=== PATIENT | female | born 1940 | race Caucasian/White ===

== ENCOUNTER 2017-11-10 11:53 | Emergency (ER) | payer MEDICARE, SELFPAY ==
[2017-11-10 11:54] VITALS: BP 156/86; PULSE 78; RESP 15; TEMP 36.5; O2SAT 99; BMI 19.9
--- NOTE | 2017-11-10 12:18 | RAD_ITS ---
STUDY: X-RAY CHEST REASON FOR EXAM: Female, 77 years old. Chest and back pain TECHNIQUE: PA and lateral views of the chest. COMPARISON: None. FINDINGS: Cardiac monitoring leads overlie the chest. The lungs are clear and expanded. There is no demonstrated pleural abnormality. Normal size heart. Normal mediastinum and bob. Normal visualized pulmonary arteries. There is atherosclerotic calcification of the aortic arch with tortuosity. There are diffuse degenerative changes of the visualized thoracic spine. There is a compression deformity at T12. There is mild levocurvature within the thoracolumbar spine. There is no demonstrated abnormality of the visualized soft tissue structures of the upper abdomen. RAD/Chest PA and Lateral IMPRESSION: No acute process in the chest. Compression deformity at T12, age indeterminate. Atherosclerotic vascular changes. Electronically Signed: Mathew Lizama DO at 12:59 EDT Tel , Service support ,
--- NOTE | 2017-11-10 12:18 | EKG12_ITS ---
Test Reason : CP Blood Pressure : / mmHG Vent. Rate : 073 BPM Atrial Rate : 073 BPM P-R Int : 174 ms QRS Dur : 084 ms QT Int : 390 ms P-R-T Axes : 058 046 068 degrees QTc Int : 429 ms Normal sinus rhythm Left ventricular hypertrophy with repolarization abnormality Abnormal ECG Confirmed by FROYLAN MCKEON, KADI ([id number]), deputy editor in chief STERLING PALMER ([id number] on 11/14/2017 1:57:57 PM Referred By: Confirmed By:KADI GALEANO MD
--- NOTE | 2017-11-10 12:22 | NURSING ---
NO OLD EKG
[2017-11-10 12:37] LABS: Absolute Lymphocyte Count 1.48 X10^3/ul (0.83-4.51); Absolute Neutrophil Count 3.4 X10^3/uL (2.0-7.7); Basophil# 0.04 X10^3/uL; Basophil% 0.7 % (0-1); Eosinophil# 0.63 X10^3/uL; Eosinophils% 10.2 % (0-5); Hematocrit 35.7 % (37-47); Hemoglobin 11.6 g/dl (12.0-15.0); Lymphocyte # 1.48 X10^3/ul (4.0); Lymphocyte % 24.1 % (19-41); Mean Corp Hgb Conc 32.5 g/gl (32-36); Mean Corpuscular Volume 98.6 fL (81-99); Mean Platelet Vol. 8.3 fl (6.2-12.0); Monocyte# 0.63 X10^3/uL; Monocyte% 10.2 % (0-10); Neutrophil # 3.37 X10^3/uL (2.7-7.7); Neutrophil % 54.8 % (47-70); Platelet Count 304 K/mm3 (150-450); RBC Distribution Width CV 13.8 % (11.6-14.6); Red Blood Count 3.62 M/mm3 (4.2-5.4); White Blood Count 6.2 K/mm3 (4.4-11.0)
[2017-11-10 12:38] LABS: POSITIVE COUNT NO; POSITIVE DIFFERENTIAL NO; POSITIVE MORPHOLOGY NO
[2017-11-10 12:45] LABS: D-Dimer Quantitative (DVT/PE) 0.74 FEU/ug/m (0.27-0.49)
[2017-11-10 12:46] LABS: Anion Gap 4 (5-15); BUN 20 mg/dL (7-18); Calcium,Total 8.5 mg/dL (8.5-10.1); Chloride 104 mmol/L (98-107); Creatinine, Serum 0.83 mg/dL (0.55-1.02); EST Glomerular Filtration Rate 71 mL/min (>60); Est Glom Filt Rate - Afr Amer 85 mL/min (>60); Estimated Creatinine Clearance 50.18 ml/min; Glucose 92 mg/dL (74-106); Potassium 3.7 mmol/L (3.5-5.1); Sodium Level 137 mmol/L (136-145)
[2017-11-10 12:54] VITALS: BP 135/86; PULSE 72; RESP 19; O2SAT 99
--- NOTE | 2017-11-10 12:59 | ED.VISSUMM ---
- ER Visit Summary Date of Service: 11/10/17 Chief Complaint: I am self diagnosing myself with pleurisy. History of Present Illness: The patient is a 77 F who presents with pleuritic left scapular/left-sided chest pain that started 2 days ago while in a car in [place]. She drove to [place] and back. The pain is been constant since onset, October. There is no discomfort with movement of the extremity or twisting. He does complain of increased pain with breathing. 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 She denies history of PE. Change in position does not alter the discomfort. She denies fever, chills night sweats. She denies any ocular, visual or auditory symptoms. She denies dyspnea on exertion, orthopnea or PND. She has no GI, or musculoskeletal symptoms. She denies bruising easily or problems with bleeding. Please read written note for complete detail Physical Examination: Vital signs micromelic blood pressure 156/86. Temperature is 97.7. Vital signs otherwise unremarkable. She appears no distress. Head is atraumatic normocephalic. Pupils are equal round reactive. Extraocular muscles are intact. TMs are pearly white with landmarks noted. Nares patent with no drainage. Posterior pharynx without erythema or exudate. Uvula is midline. There is no dysphonia or dysphasia. Trachea is midline. There is no stridor with auscultation of the neck. Heart is regular without murmur, gallop or rub. S1 and S2 are normal. Lungs are clear to auscultation with good movement of air bilaterally. There is reproducible pain left side near the fourth fifth intercostal space. Soft nontender with no palpable, pulsatile or bruit noted. There is no asymmetry, swelling, discoloration, leg vein distention, palpable cords or tenderness along the distribution of the deep venous system. Test Results: EKG reveals a sinus rhythm rate of 73 with evidence of LVH. D-dimer is elevated at 0.74. D-dimer is elevated even if corrected for age. Two-view chest x-ray reveals no acute process. Mediastinum appears normal. Cardiac silhouette is normal. There is no evidence of effusion. CTA for pulmonary embolus was negative. There is no evidence of dissection. There is no evidence of any pulmonary disease either. Emergency Department Course and Treatment: She was informed concerned this may represent a pulmonary embolus versus atypical presentation for cardiac. Workup included EKG, chest x-ray and appropriate blood work including d-dimer. Since the d-dimer is elevated in spite of correction for age will obtain CTA of the chest to evaluate for pulmonary embolus. Treatment Plan: Since patient has history of peptic ulcer disease/GERD and is elderly will treat with prednisone for pleuritic pain. Disposition: Discharged home Impression: Pleuritic chest pain with dyspnea This note was generated with [employer] dictation software. It may contain incorrect words, spelling, and punctuation that were not noted in review of the chart prior to signing ED Disposition - Plan for ED Patient: Disposition: Home or Assisted Living Chief Complaint: Chest Pain Instructions: ED Chest Pain Pleurisy Prescriptions: Prednisone [Deltasone] 40 mg PO DAILY #10 tab Referrals: García Alvarado MD [Primary Care Provider] - 3-5 Days if not improving
--- NOTE | 2017-11-10 13:03 | ED.DCSUM_ITS ---
- ER Visit Summary Date of Service: 11/10/17 Chief Complaint: I am self diagnosing myself with pleurisy. History of Present Illness: The patient is a 77 F who presents with pleuritic left scapular/left-sided chest pain that started 2 days ago while in a car in [place]. She drove to [place] and back. The pain is been constant since onset , October. There is no discomfort with movement of the extremity or twisting. He does complain of increased pain with breathing. 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 She denies history of PE. Change in position does not alter the discomfort. She denies fever, chills night sweats. She denies any ocular, visual or auditory symptoms. She denies dyspnea on exertion, orthopnea or PND. She has no GI, or musculoskeletal symptoms. She denies bruising easily or problems with bleeding. Please read written note for complete detail Physical Examination: Vital signs micromelic blood pressure 156/86. Temperature is 97.7. Vital signs otherwise unremarkable. She appears no distress. Head is atraumatic normocephalic. Pupils are equal round reactive. Extraocular muscles are intact. TMs are pearly white with landmarks noted. Nares patent with no drainage. Posterior pharynx without erythema or exudate. Uvula is midline. There is no dysphonia or dysphasia. Trachea is midline. There is no stridor with auscultation of the neck. Heart is regular without murmur, gallop or rub. S1 and S2 are normal. Lungs are clear to auscultation with good movement of air bilaterally. There is reproducible pain left side near the fourth fifth intercostal space. Soft nontender with no palpable, pulsatile or bruit noted. There is no asymmetry, swelling, discoloration, leg vein distention, palpable cords or tenderness along the distribution of the deep venous system. Test Results: EKG reveals a sinus rhythm rate of 73 with evidence of LVH. D- dimer is elevated at 0.74. D-dimer is elevated even if corrected for age. Two- view chest x-ray reveals no acute process. Mediastinum appears normal. Cardiac silhouette is normal. There is no evidence of effusion. CTA for pulmonary embolus was negative. There is no evidence of dissection. There is no evidence of any pulmonary disease either. Emergency Department Course and Treatment: She was informed concerned this may represent a pulmonary embolus versus atypical presentation for cardiac. Workup included EKG, chest x-ray and appropriate blood work including d-dimer. Since the d-dimer is elevated in spite of correction for age will obtain CTA of the chest to evaluate for pulmonary embolus. Treatment Plan: Since patient has history of peptic ulcer disease/GERD and is elderly will treat with prednisone for pleuritic pain. Disposition: Discharged home Impression: Pleuritic chest pain with dyspnea This note was generated with [employer] dictation software. It may contain incorrect words, spelling, and punctuation that were not noted in review of the chart prior to signing ED Disposition - Plan for ED Patient: Disposition: Home or Assisted Living Chief Complaint: Chest Pain Instructions: ED Chest Pain Pleurisy Prescriptions: Prednisone [Deltasone] 40 mg PO DAILY #10 tab Referrals: García Alvarado MD [Primary Care Provider] - 3-5 Days if not improving
--- NOTE | 2017-11-10 13:41 | CT_ITS ---
STUDY: CTA CHEST REASON FOR EXAM: Female, 77 years old. Pleuritic chest pain, history of DVT RADIATION DOSAGE (If Supplied By Facility): CTDIvol = ( 4.84 ) mGy, DLP = ( 196.32 ) mGycm TECHNIQUE: The examination was performed with the intravenous administration of 100ml of Isovue 300 contrast material. Post-processing of the angiographic images was performed, with multiplanar reformation and 3D reconstruction. Individualized dose optimization techniques were used for this CT. COMPARISON: None. FINDINGS: Normal enhancement of the main pulmonary artery and right and left pulmonary arteries. Normal enhancement of the bilateral peripheral pulmonary arteries. There is no demonstrated pulmonary embolism. There is atherosclerotic calcification of the aortic arch with tortuosity. The ascending aorta measures 3.8 x 3.7 cm. There is no demonstrated aortic dissection. Coronary artery calcifications are present. Normal mediastinum. Normal hilar regions. Normal visualized trachea and bronchi. The lungs are well expanded. There is linear atelectasis in the lingula. Minimal basilar atelectasis is seen. Normal pleura. Normal chest wall structures. The bones are demineralized. There is a compression fracture at T12. This appears remote. There is a hyperdense focus within the left kidney measuring approximately 1.2 cm, which may represent a hyperdense cyst. CT/CTA Chest W/WO Contrast IMPRESSION: No pulmonary embolism or aortic dissection. Minimal atelectasis. Atherosclerotic vascular disease. Hyperdense lesion within the left kidney. This may represent a hyperdense cyst. As can be further characterized by ultrasound, as clinically indicated. Electronically Signed: Mathew Lizama DO at 15:05 EDT Tel , Service support ,
[2017-11-10 14:03] VITALS: BP 135/76; PULSE 77; RESP 24; O2SAT 96
[2017-11-10] MEDS: predniSONE 20 MG Tablet 40 MG PO (15:48)
[2017-11-10 15:49] VITALS: BP 151/70; PULSE 73; RESP 18; O2SAT 99
== END 2017-11-10 15:49 | disposition home or self-care (01) ==
PROVIDERS: Emergency Provider Emergency Medicine; Family Provider Family Medicine; PCP Family Medicine
DX: R07.89 Other chest pain (principal); R06.00 Dyspnea, unspecified; K21.9 Gastro-esophageal reflux disease without esophagitis; Z79.899 Other long term (current) drug therapy
CPT/HCPCS: 71046; 71275; 80048; 84484; 85025; 85379; 93005; 99284; Q9967; A4216

== ENCOUNTER → 2018-03-21 09:55 | Outpatient (CLI) | payer MEDICARE, SELFPAY ==
[2018-03-21 11:02] LABS: AST(SGOT) 15 U/L (15-37); Alanine Aminotransfer ALT/SGPT 13 U/L (13-56); Albumin, Serum 3.8 g/dL (3.2-5.0); Alkaline Phosphatase 65 U/L (45-117); Bilirubin, Direct 0.08 mg/dL (0.00-0.30); Cholesterol 218 mg/dL (200); Globulin 3.1 g/dL (2.2-4.2); High Density Lipoprotein 88 mg/dL; Protein, Total 6.9 g/dL (6.4-8.2); Triglycerides 114 mg/dL; Very Low Density Lipoprotein 23 mg/dL (5-40)
== END ==
PROVIDERS: Family Provider Family Medicine; PCP Family Medicine; Visit Provider Internal Medicine Cardiovascular Disease
DX: E78.5 Hyperlipidemia, unspecified (principal)
CPT/HCPCS: 36415; 80061; 80076

== ENCOUNTER → 2018-03-28 12:44 | Outpatient (CLI) | payer MEDICARE, SELFPAY ==
--- NOTE | 2018-03-28 12:46 | ECHOD_ITS ---
Reason For Study: dyspnea/SOB Procedure This was a 2D Doppler, Color Flow transthoracic echocardiogram. Exam performed in department. Left Ventricle Normal LV size. Apical false tendon noted. Left ventricular systolic function is normal. The estimated ejection fraction is 55 %. Stage 1 diastolic dysfunction. No regional wall motion abnormalities noted. Right Ventricle Normal RV size. Normal systolic function. Atria Normal left atrium. Normal right atrium. Mitral Valve Normal mitral valve. Mild (1+) eccentric mitral valve insufficiency. Tricuspid Valve Normal tricuspid valve. Mild (1+) tricuspid valve insufficiency. Pulmonary artery systolic pressure is 26 mmHg. Aortic Valve Trisinus/trileaflet aortic valve. Pulmonic Valve Normal pulmonic valve. Great Vessels Normal aortic root. The pulmonary artery is normal size. Normal inferior vena cava. Pericardium/Pleural No pericardial effusion. MMode/2D Measurements & Calculations LVIDd: 4.3 cm IVSd: 1.0 cm Ao root diam: 3.1 cm LVIDs: 3.1 cm LVPWd: 0.98 cm LA dimension: 3.9 cm RVDd: 2.5 cm FS: 26.5 % LAV(MOD-bp): 54.5 ml LA A4 area: 16.6 cm2 RA A4 area: 11.4 cm2 LAV(MOD-bp) Indexed: 33.2 ml/m2 LAV(MOD-sp2): 56.2 ml LAV(MOD-sp4): 49.4 ml Doppler Measurements & Calculations MV E max robert: 49.0 cm/sec Lat Peak E' Robert: 4.2 cm/sec Med Peak E' Robert: 5.0 cm/sec MV A max robert: 85.9 cm/sec E/E' lat: 11.6 E/E' med: 9.8 MV E/A: 0.57 Ao V2 max: 119.6 cm/sec LV V1 max: 83.9 cm/sec MR max robert: 647.1 cm/sec Ao max P.7 mmHg LV V1 max P.8 mmHg MR max P.5 mmHg PA V2 max: 93.7 cm/sec TR max robert: 236.4 cm/sec TR max P.4 mmHg Interpretation Summary Normal LV size. Left ventricular systolic function is normal. The estimated ejection fraction is 55 %. Stage 1 diastolic dysfunction. Structurally normal valves. Ordering Physician: Ashish Rojas Referring Physician: García Alvarado Performed By: Isela Ascencio, АННА, RVT
== END ==
PROVIDERS: Family Provider Family Medicine; PCP Family Medicine; Referring Provider Internal Medicine Cardiovascular Disease; Visit Provider Internal Medicine Cardiovascular Disease
DX: R94.31 Abnormal electrocardiogram [ECG] [EKG] (principal); R06.02 Shortness of breath
CPT/HCPCS: 93306

== ENCOUNTER 2018-04-12 14:22 | Emergency (ER) | payer MEDICARE, SELFPAY ==
[2018-04-12 14:24] VITALS: BP 147/86; PULSE 89; RESP 16; TEMP 36.2; O2SAT 98; BMI 20.4
--- NOTE | 2018-04-12 14:34 | ED.RN ---
PT [id number]
== END 2018-04-12 14:34 ==
PROVIDERS: Family Provider Family Medicine; PCP Family Medicine
DX: R69 Illness, unspecified (principal); Z53.21 Procedure and treatment not carried out due to patient leaving prior to being seen by health care provider

== ENCOUNTER → 2018-11-22 12:14 | Outpatient (CLI) | payer MEDICARE, SELFPAY ==
[2018-11-22 14:14] LABS: Erythrocyte Sedimentation Rate 5 mm/hr (0-30)
[2018-11-22 14:15] LABS: Absolute Lymphocyte Count 1.09 X10^3/ul (0.83-4.51); Absolute Neutrophil Count 3.2 X10^3/uL (2.0-7.7); Basophil# 0.04 X10^3/uL; Basophil% 0.7 % (0-1); Eosinophil# 0.48 X10^3/uL; Eosinophils% 8.6 % (0-5); Hematocrit 38.4 % (37-47); Hemoglobin 12.6 g/dl (12.0-15.0); Lymphocyte # 1.09 X10^3/ul (4.0); Lymphocyte % 19.6 % (19-41); Mean Corp Hgb Conc 32.8 g/gl (32-36); Mean Corpuscular Hgb 31.4 pg (27.0-32.0); Mean Corpuscular Volume 95.8 fL (81-99); Mean Platelet Vol. 9.1 fl (6.2-12.0); Monocyte# 0.76 X10^3/uL; Monocyte% 13.6 % (0-10); Neutrophil # 3.18 X10^3/uL (2.7-7.7); Neutrophil % 57.1 % (47-70); Platelet Count 257 K/mm3 (150-450); RBC Distribution Width CV 13.6 % (11.6-14.6); RBC Distribution Width SD 45.1 fl (35.1-43.9); Red Blood Count 4.01 M/mm3 (4.2-5.4); White Blood Count 5.6 K/mm3 (4.4-11.0)
[2018-11-22 14:16] LABS: POSITIVE COUNT NO; POSITIVE DIFFERENTIAL NO; POSITIVE MORPHOLOGY NO
[2018-11-22 14:52] LABS: Vitamin B12 275 pg/mL (211-911); Vitamin D,25 Hydroxy 19.1 ng/mL (29.95-100.01)
[2018-11-22 14:54] LABS: ALB/GLOB Ratio 1.5 RATIO (0.9-2.4); AST(SGOT) 13 U/L (15-37); Alanine Aminotransfer ALT/SGPT 15 U/L (13-56); Alkaline Phosphatase 79 U/L (45-117); Anion Gap 5 (5-15); BUN 18 mg/dL (7-18); BUN/Creat Ratio 22.6 RATIO (10-20); Calcium,Total 8.6 mg/dL (8.5-10.1); Chloride 101 mmol/L (98-107); EST Glomerular Filtration Rate 74 mL/min (>60); Est Glom Filt Rate - Afr Amer 90 mL/min (>60); Ferritin 85 ng/mL (8-252); Globulin 2.6 g/dL (2.2-4.2); Glucose 88 mg/dL (74-106); Iron 73 ug/dL (50-170); Iron Binding Capacity,Total 279 ug/dL (250-450); Potassium 4.7 mmol/L (3.5-5.1); Protein, Total 6.6 g/dL (6.4-8.2); Sodium Level 136 mmol/L (136-145); Thyroid Stim Hormone (TSH) 1.34 uIU/mL (0.358-3.74)
== END ==
PROVIDERS: Family Provider Family Medicine; PCP Family Medicine; Referring Provider Family Medicine; Visit Provider Family Medicine
DX: M13.0 Polyarthritis, unspecified (principal); D50.9 Iron deficiency anemia, unspecified; R53.83 Other fatigue
CPT/HCPCS: 36415; 80053; 82306; 82607; 82728; 82746; 83540; 83550; 84443; 85025; 85652

== ENCOUNTER → 2018-12-27 10:13 | Outpatient (CLI) | payer MEDICARE, SELFPAY ==
[2018-12-27 12:32] LABS: ALB/GLOB Ratio 1.5 RATIO (0.9-2.4); AST(SGOT) 16 U/L (15-37); Alanine Aminotransfer ALT/SGPT 15 U/L (13-56); Albumin, Serum 4.1 g/dL (3.2-5.0); Alkaline Phosphatase 89 U/L (45-117); Anion Gap 8 (5-15); BUN 15 mg/dL (7-18); CRP < 2.90 mg/L (0.0-3.0); Chloride 106 mmol/L (98-107); Creatinine, Serum 0.79 mg/dL (0.55-1.02); EST Glomerular Filtration Rate 75 mL/min (>60); Est Glom Filt Rate - Afr Amer 91 mL/min (>60); Globulin 2.7 g/dL (2.2-4.2); Glucose 110 mg/dL (74-106); Lipase 115 U/L (73-393); Potassium 4.2 mmol/L (3.5-5.1); Protein, Total 6.8 g/dL (6.4-8.2); Sodium Level 142 mmol/L (136-145)
== END ==
PROVIDERS: Family Provider Family Medicine; PCP Family Medicine; Referring Provider Family Medicine; Visit Provider Family Medicine
DX: R10.13 Epigastric pain (principal)
CPT/HCPCS: 36415; 80053; 83690; 86140

== ENCOUNTER → 2019-01-01 08:14 | Outpatient (CLI) | payer MEDICARE, SELFPAY ==
--- NOTE | 2019-01-01 08:17 | US_ITS ---
STUDY: ABDOMINAL ULTRASOUND REASON FOR EXAM: Female, 78 years old. Right upper quadrant pain TECHNIQUE: Transabdominal ultrasound was performed with real-time and static neves scale imaging. TECHNICAL QUALITY: Limited. Examination limited by bowel gas. COMPARISON: None. FINDINGS: Liver: The liver measures 12.0 cm. There is a heterogeneous echogenicity of the liver. The bile ducts are within normal limits. There is hepatic color flow. The direction of portal flow is hepatopetal. There is no demonstrated mass lesion. Gallbladder: Normal distended gallbladder. The gallbladder wall measures 2.7 mm. There is a negative sonographic Mosley's sign. There is no pericholecystic fluid. There are no gallstones. Common Bile Duct (C.B.D.): The common bile duct measures 4.4 mm. Pancreas: Normal size of the head, body and tail of the pancreas. There is normal echogenicity of the pancreas. There is no demonstrated pancreatic mass or cyst. Spleen: Normal size of the spleen. The spleen measures 7.2 x 3.4 x 3.0 cm. Right Kidney: Normal size of the right kidney. The right kidney measures 9.6 x 3.3 x 4.8 cm. Normal renal cortex. The right cortex measures 1.6 cm. There is no demonstrated renal mass or cyst. There is no right hydronephrosis. There is a nonobstructing 4 mm right renal calculus. Left Kidney: Normal size of the left kidney. The left kidney measures 9.0 x 4.6 x 4.3 cm. Normal renal cortex. The left cortex measures 1.7 cm. There is a 1.0 x 1.0 x 0.8 cm left renal cyst. There is no left hydronephrosis. Aorta: There are calcified atheromatous plaques of the abdominal aorta. The proximal abdominal aorta measures 2.1 x 1.7 cm. The midabdominal aorta measures 1.6 x 1.6 cm. The distal abdominal aorta measures 1.6 x 1.4 cm. I.V.C.: The IVC is patent. There is no ascites. US/Abdomen Complete IMPRESSION: Nonobstructing 4 mm right renal calculus. Diffuse atheromatous plaquing of the abdominal aorta. Liver is heterogeneous in echogenicity. Electronically Signed: Randy De La Cruz MD at 17:32 EDT , Service support ,
== END ==
PROVIDERS: Family Provider Family Medicine; PCP Family Medicine; Referring Provider Family Medicine; Visit Provider Family Medicine
DX: R10.13 Epigastric pain (principal)
CPT/HCPCS: 76700

== ENCOUNTER → 2019-01-04 13:55 | Outpatient (CLI) | payer MEDICARE, SELFPAY ==
--- NOTE | 2019-01-04 14:00 | CT_ITS ---
STUDY: CT ABDOMEN WITH AND WITHOUT CONTRAST REASON FOR EXAM: Female, 78 years old. Epigastric pain RADIATION DOSAGE (If Supplied By Facility): CTDIvol = ( 13.71 ) mGy, DLP = ( 620.79 ) mGycm TECHNIQUE: Transaxial images were obtained pre and post I.V. administration of 100ML IV/Oral Isovue 300, and oral contrast. Sagittal and coronal images were reconstructed. Individualized dose optimization techniques were used for this CT. COMPARISON: CT of the chest dated November 10, 2017 FINDINGS: The visualized lung bases are unremarkable. The visualized portions of the heart are within normal limits. There are two too small to characterize low-attenuation foci within the liver that may reflect underlying hemangiomas. Normal gallbladder and extrahepatic biliary system. Normal spleen. Normal pancreas. Normal bilateral adrenal glands. Normal right kidney. There is a left renal cyst. There is a stable too small to characterize high attenuation focus within the left kidney that likely reflects a proteinaceous cysts. Normal visualized stomach. Normal small intestine. Normal colon. The appendix is visualized and appears normal. There is diffuse atherosclerotic calcification of the abdominal aorta, without a demonstrated aneurysm. Normal inferior vena cava. Normal retroperitoneum. Normal abdominal wall. There are diffuse degenerative changes of the visualized thoracic and lumbar spine. There is a grossly stable T12 anterior compression deformity. CT/Abdomen W/WO IV Contrast IMPRESSION: No acute intra-abdominal process. Atherosclerosis. Degenerative changes of the visualized thoracic and lumbar spine. Electronically Signed: Georgia Constantino MD at 16:56 EDT Tel , Service support ,
== END ==
PROVIDERS: Family Provider Family Medicine; PCP Family Medicine; Referring Provider Family Medicine; Visit Provider Family Medicine
DX: R10.13 Epigastric pain (principal)
CPT/HCPCS: 74170; Q9967

== ENCOUNTER 2019-01-14 07:11 | Day surgery (SDC) | payer MEDICARE, SELFPAY ==
[2019-01-09 14:43] VITALS: BMI 20.4
[2019-01-14] VITALS (7 sets, daily range): BP systolic 85–157; BP diastolic 58–80; PULSE 76–91; RESP 16; TEMP 36.2–36.9; O2SAT 93–100; BMI 20.2
--- NOTE | 2019-01-14 07:43 | PCM.HP.BLA ---
History and Physical Date of Admission: 01/14/19 ADDENDUM by Desiree Guerrero MD on 01/10/19 at 0916 Addendum entered and electronically signed by Desiree Guerrero MD 01/10/19 09:16: Additional diagnosis of constipation to be added to previous note. Colonoscopy records: Patient did have a EGD and colonoscopy in 03/14/[address] Dunbar for screening and she did have a 3 mm polyp in the sigmoid colon otherwise rest of exam was normal, polyp was hyperplastic, gastric antrum biopsy showed mild chronic inactive gastritis no H. 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 Portillo for heme positive stool and anemia. Colonoscopy was normal no polyps seen, EGD showed some patchy candidiasis as well as erythema in the gastric body and antrum patient was given Diflucan x2 weeks and told to continue Protonix p.o. daily indefinitely at that time. Intake Chief Complaint: Initial visit Allergies cymbalta Adverse Reaction (Uncoded 01/09/19 14:41) Unknown Medications tycuser-zfzpcqmbxjaif-krfccbwa 250 mg-250 mg-65 mg tablet 1 tab PO Q6H PRN tab 03/15/18 [History Confirmed 01/09/19] cholecalciferol (vitamin D3) 2,000 unit capsule 2,000 unit PO DAILY 03/15/18 [History Confirmed 01/09/19] ondansetron HCl 4 mg tablet 4 mg PO BID-TID 01/09/19 [History Confirmed 01/09/19] sucralfate 1 gram tablet 1 g PO QACHS 01/09/19 [History Confirmed 01/09/19] venlafaxine ER 150 mg capsule,extended release 24 hr 150 mg PO DAILY 01/09/19 [History Confirmed 01/09/19] Assessment & Plan Problems 1. Epigastric pain R10.13 2. Gastroesophageal reflux disease K21.9 3. History of colon polyps Z86.010 Plan - Desiree Guerrero MD I have discussed the above with the patient. I have offered the patient EGD and colonoscopy for evaluation. I have explained the risks/benefits of the procedure and described the procedure. I have discussed the risks with the patient, including but not limited to: infection, bleeding, perforation of the GI tract requiring emergency surgery, inability to complete the procedure, injury to any internal organs, complications of anesthesia, etc. - the patient understands and agrees to proceed. I have answered all the patient's questions to the patient's satisfaction and the patient has no further questions. The patient has been given instructions for the colon cleansing preparation. 2-day of clears magnesium citrate the first day and then MiraLAX Dulcolax secondary due to patient's history of constipation. Discussed with patient I would not be able to give her any pain meds as this likely cause more constipation or GERD/gastritis and I do not have a surgical reason for her pain has the ultrasound and CT abdomen pelvis were negative except for showing a constipation. Discussed with patient that if the pain did not improve after the constipation has been resolved with the prep could try Bentyl. Desiree Guerrero M.D. Pager: [phone] [facility] [address] [place] [address], [address] [place] [address] Office: [phone] Orders Orders: Colonoscopy 01/09/19 EGD 01/09/19 Medications New: venlafaxine ER 150 mg PO DAILY ondansetron HCl (Zofran) 4 mg PO BID-TID sucralfate (Carafate) 1 g PO QACHS Plan Detail Follow Up We will schedule EGD and colonoscopy 01/10/1916 <Electronically signed by Desiree Guerrero MD> Date Desiree Guerrero MD cc: Sergio Bailey MD ~* Signed Intake Vital Signs 01/09/19 Body Mass Index (BMI) 20.4 01/09/19 Height 5 ft 6 in 01/09/19 Weight: 129 lb 01/09/19 Body Mass Index (BMI) 20.8 01/09/19 Blood Pressure 136/81 H 01/09/19 Blood Pressure Location Rt brachial 01/09/19 Respiratory Rate 16 Intake Visit Reasons: Epigastric Pain US [facility] 01/01 Chief Complaint: Initial visit [employer] Manager Required: No Is patient in pain?: Yes (mid abdomen/epigastric area) Allergies cymbalta Adverse Reaction (Uncoded 01/09/19 14:41) Unknown Medications fjduugh-dtivhkamqnlxe-jieqmpjl 250 mg-250 mg-65 mg tablet 1 tab PO Q6H PRN tab 03/15/18 [History Confirmed 01/09/19] cholecalciferol (vitamin D3) 2,000 unit capsule 2,000 unit PO DAILY 03/15/18 [History Confirmed 01/09/19] ondansetron HCl 4 mg tablet 4 mg PO BID-TID 01/09/19 [History Confirmed 01/09/19] sucralfate 1 gram tablet 1 g PO QACHS 01/09/19 [History Confirmed 01/09/19] venlafaxine ER 150 mg capsule,extended release 24 hr 150 mg PO DAILY 01/09/19 [History Confirmed 01/09/19] PFSH Medical History NEFTALY positive (Chronic) Back pain (Chronic) COPD (chronic obstructive pulmonary disease) (Chronic) Chronic headaches (Chronic) Colonic polyp (Chronic) DVT (deep venous thrombosis) (Chronic) GERD (gastroesophageal reflux disease) (Chronic) Glaucoma (Chronic) Iron deficiency anemia (Chronic) Major depressive disorder (Chronic) Neoplasm of kidney (Chronic) Occipital neuralgia of right side (Chronic) Osteoarthritis (Chronic) Spondylosis (Chronic) Vitamin D deficiency (Chronic) Surgical History History of bilateral knee replacement (Resolved) History of open reduction and internal fixation (ORIF) procedure (Resolved) History of right hip replacement (Resolved) Family History Father CAD (coronary artery disease) CABG x 5 Brother CAD (coronary artery disease) age 59 Diabetes Social History (Updated 01/10/19 @ 08:07 by Desiree Guerrero MD) Smoking Status: Former smoker alcohol intake: current alcohol intake frequency: a few times a week HPI HPI HPI: SANDIE HO is a 78 F who presents to the office today for HPI HPI Surgical H&P: Yes HPI: SANDIE HO, is a 78 F who presents to the office today for epigastric pain. Patient states she is had this for about 2 months and she is also had nausea denies any vomiting with it. Patient states the pain today is worse since 02/09. Patient has been seen her PCP who did place her on Carafate about 10 days ago, which patient is taking an hour before meals and at bedtime. And initially patient thought that it was helping and her pain was almost gone. However, now she is not sure if it is doing anything. Patient states she does have the pain constantly. Patient has been on Protonix 40 mg p.o. daily for about 1 year. Patient denies any heartburn or reflux symptoms on this medication. Patient states she thinks she had a colonoscopy about 5 to 7 years ago which she did have polyps at that time but they were benign. Patient states currently she does not have much of an appetite due to the abdominal pain. She is unsure of the amount of fiber she gets in her diet but does drink plenty water. Patient did previously take 4-6 Excedrin a day for her headaches ~2 weeks ago. She has tried the tramadol given to her by PCP as well as Aleve but she does not think that works. She is taking about 2-4 Excedrin over the last week. Patient denies ever having EGD in the past. Patient denies a family history of colon cancer. Patient states that she only has little bowel movements except for maybe every 3 to 4 days she has a good bowel movement. Patient states there is no change in pain with the bowel movement. Due to the abdominal pain about 2 weeks ago patient did take too much Mylanta and had diarrhea from this. ROS General General: Yes fatigue Gastro Gastrointestinal: Yes abdominal pain, Yes nausea or vomiting (no vomiting), Yes diarrhea, Yes constipation, Yes acid reflux Exam Const General: cooperative, comfortable, no acute distress Resp Effort & Inspection: normal respiratory effort Cardio Rate: regular rate GI Inspection: non-distended Palpation: soft, no guarding, tender (minimal/mild on palpation epigastric) Assessment & Plan Problems 1. Epigastric pain R10.13 2. Gastroesophageal reflux disease K21.9 3. History of colon polyps Z86.010 Plan I have discussed the above with the patient. I have offered the patient EGD and colonoscopy for evaluation. I have explained the risks/benefits of the procedure and described the procedure. I have discussed the risks with the patient, including but not limited to: infection, bleeding, perforation of the GI tract requiring emergency surgery, inability to complete the procedure, injury to any internal organs, complications of anesthesia, etc. - the patient understands and agrees to proceed. I have answered all the patient's questions to the patient's satisfaction and the patient has no further questions. The patient has been given instructions for the colon cleansing preparation. 2-day of clears magnesium citrate the first day and then MiraLAX Dulcolax secondary due to patient's history of constipation. Discussed with patient I would not be able to give her any pain meds as this likely cause more constipation or GERD/gastritis and I do not have a surgical reason for her pain has the ultrasound and CT abdomen pelvis were negative except for showing a constipation. Discussed with patient that if the pain did not improve after the constipation has been resolved with the prep could try Bentyl. Desiree Guerrero M.D. Pager: [phone] [facility] [address] [place] [address], [address] [place] [address] Office: [phone] Orders Orders: Colonoscopy 01/09/19 EGD 01/09/19 Medications New: venlafaxine ER 150 mg PO DAILY ondansetron HCl (Zofran) 4 mg PO BID-TID sucralfate (Carafate) 1 g PO QACHS Plan Detail Follow Up We will schedule EGD and colonoscopy Diagnoses Epigastric pain R10.13 Gastroesophageal reflux disease K21.9 History of colon polyps Z86.010 01/10/19 0807 <Electronically signed by Desiree Guerrero MD> Date Desiree Guerrero MD
--- NOTE | 2019-01-14 08:45 | IMM_PTH ---
PATIENT: SANDIE HO LOC: EN U#:[id number] AGE/SX: 78/F ROOM: RE01/14/[address]: Dr. Desiree Guerrero MD : 1940 BED: DIS: 01/14/2019 SPEC #: [id number] RECD: 01/14/19 11:53 STATUS: FREDDY REQ #: [id number] ISAC: 01/14/19 08:[address]: Desiree Guerrero DEPT: IMMUNOHISTOCHEMISTRY RECD BY: Inessa Vance ENTERED: 01/14/19 11:53 SP TYPE: IMMUNO OTHR DR: Dr. Sergio Bailey MD Tissues: A - Stomach, NOS Procedures: H Pylori (initial) PHYSICIAN & INSTITUTION [place] [address] SPECIMEN INFORMATION: Tissue Source: A - Antral biopsy Clinical Info: Epigastric pain, GERD, polyp history, constipation Specimen Number: [id number] CPT code: 83765 METHODOLOGY: Deparaffinized sections of prefer/formalin-fixed tissue or PAP/DQ stained slides are incubated with monoclonal/polyclonal antibodies/oligonucleotide probes. Localization is made via biotin free immunoperoxidase method. Appropriate controls are performed and reacted as expected. Results on target cell population are indicated in the following table: RESULTS: ANTIBODY / CLONE RESULT Block A H Pylori (polyclonal) negative These tests were developed and their performance characteristics determined by [facility]. They may not have been cleared or approved by the U.S. Food and Drug Administration. The FDA has determined that such clearance or approval is not necessary. INTERPRETATION: A. Antral biopsy: Negative for Helicobacter pylori organisms. SJ:snehal 01/15/19
--- NOTE | 2019-01-14 08:45 | EGD_PTH ---
PATIENT: SANDIE HO LOC: EN U#:[id number] AGE/SX: 78/F ROOM: RE01/14/[address]: Dr. Desiree Guerrero MD : 1940 BED: DIS: 01/14/2019 SPEC #: [id number] RECD: 01/14/19 11:05 STATUS: FREDDY LYNNETTE #: [id number] ISAC: 01/14/19 08:[address]: Desiree Guerrero DEPT: SURGICAL PATHOLOGY RECD BY: Nissa Maldonado ENTERED: 01/14/19 11:47 SP TYPE: EGD BIOPSY OT DR: Dr. Sergio Bailey MD Tissues: A - Gastric mucous membrane B - Gastric mucous membrane C - Gastric mucous membrane Procedures: PAS Fungus (control) Special Stain Group II Special Stain Group I Surgery Specimen Level IV Alcian Blue/PAS (control) HEADER OPERATION: Colonoscopy, EGD ([facility]) PRE-OP DIAGNOSIS: Epigastric pain, GERD, history of polyps, constipation TISSUE SUBMITTED: A. Antral biopsy for H. pylori and pathology, B. GE junction biopsy, C. GE junction biopsy, rule out Mariah MICROSCOPIC DIAGNOSIS A. Antral biopsy: Mild gastritis. See microscopic description and comment. B. GE junction, biopsy: A fragment of gastric mucosa with mild chronic inflammation. Intestinal metaplasia (goblet cell metaplasia) is not identified. See comment. C. GE junction, biopsy: Fragments of squamous epithelium with mild acute inflammation and superficial bacterial colonization. Special stains for fungi is negative for organisms; matched control is appropriate. SJ:snehal 01/15/19 COMMENT A. The results of immunohistochemistry for Helicobacter pylori will be reported separately ([id number]). B. Alcian blue/PAS stain with matched control is used in the evaluation of the specimen. A fragment of adipose tissue with blood clot is also noted most likely presents contaminant. MICROSCOPIC DESCRIPTION Slides are reviewed. A. The specimen shows fragments of gastric mucosa with chronic inflammatory cell infiltrates in the lamina propria consisting of lymphocytes and plasma cells, consistent with mild chronic gastritis. GROSS DESCRIPTION A - Received in fixative is one container labeled with the patient's name and designated antral biopsy. The specimen consists of multiple irregular fragments of light fatima soft tissue that in aggregate measure 0.3 x 0.2 x 0.1 cm. The specimen is totally submitted in one cassette. B - Received in fixative is one container labeled with the patient's name and designated GE junction biopsy. The specimen consists of one irregular fragment of light fatima soft tissue that measures 0.2 x 0.2 x 0.1 cm. The specimen is totally submitted in one cassette. C - Received in fixative is one container labeled with the patient's name and designated GE junction biopsy. The specimen consists of multiple irregular fragments of light fatima soft tissue that in aggregate measure 0.9 x 0.4 x 0.1 cm. The specimen is totally submitted in one cassette. / SJ:snehal 01/14/19 TC:3 CPT: 81887 x3, 64707, 69913
--- NOTE | 2019-01-14 09:24 | OP.ENDO_ITS ---
01/14/2019 Sergio Bailey [address] [place] [address] Re : Upper GI endoscopy procedure for Argenis Prajapati Dear Dr. Bailey This procedure was performed on Monday, January 14, 2019. My impressions and recommendations are as follows: Impressions : - Esophageal plaques were found, consistent with candidiasis. Biopsied. - Z-line irregular, 40 cm from the incisors. Biopsied. - Erythematous mucosa in the antrum. Biopsied. - Normal duodenal bulb. Recommendations : - Discharge patient to home. - Continue present medications. - Await pathology results. - Use Protonix (pantoprazole) 40 mg PO daily. - Diflucan (fluconazole) 400 mg PO daily x 1 week then 200 mg PO daily x 1 week. My findings are described in the full procedure note, which is enclosed. If I can be of further assistance, please feel free to contact me at Doctor phone number(s): , Work: . Sincerely, MD Desiree Basilio MD 01/14/2019 9:23:51 AM This report has been signed electronically.
--- NOTE | 2019-01-14 09:27 | OP.ENDO_ITS ---
01/14/2019 Sergio Bailey [address] [place] [address] Re : Colonoscopy procedure for Argenis Prajapati Dear Dr. Bailey This procedure was performed on Monday, January 14, 2019. My impressions and recommendations are as follows: Impressions : - The entire examined colon is normal on direct and retroflexion views. - No specimens collected. Recommendations : - Discharge patient to home [Means]. - Continue present medications. - No repeat colonoscopy due to current age (66 years or older). My findings are described in the full procedure note, which is enclosed. If I can be of further assistance, please feel free to contact me at Doctor phone number(s): , Work: . Sincerely, MD Desiree Basilio MD 01/14/2019 9:27:01 AM This report has been signed electronically.
== END 2019-01-14 09:53 | disposition home or self-care (01) ==
LOC: EN 07:12 → AC 07:12
PROVIDERS: Family Provider Family Medicine; PCP Family Medicine; Referring Provider Family Medicine; Visit Provider Surgery
PROC: 0DJD8ZZ Inspection of Lower Intestinal Tract, Via Natural or Artificial Opening Endoscopic (ICD-10-PCS; CPT 45378; principal; 2019-01-14 08:40)
DX: K29.50 Unspecified chronic gastritis without bleeding (principal); K59.00 Constipation, unspecified; K21.9 Gastro-esophageal reflux disease without esophagitis; J44.9 Chronic obstructive pulmonary disease, unspecified; D50.9 Iron deficiency anemia, unspecified; F32.9 Major depressive disorder, single episode, unspecified; M19.90 Unspecified osteoarthritis, unspecified site; E55.9 Vitamin D deficiency, unspecified; F41.9 Anxiety disorder, unspecified; Z86.010 Personal history of colon polyps; Z87.891 Personal history of nicotine dependence; Z86.718 Personal history of other venous thrombosis and embolism; Z79.899 Other long term (current) drug therapy
CPT/HCPCS: 43239; 45378; 88305; 88312; 88313; 88342; J7120; J1610; J2405

== ENCOUNTER → 2019-04-03 09:13 | Outpatient (CLI) | payer MEDICARE, SELFPAY ==
[2019-01-14 07:25] VITALS: BMI 20.2
--- NOTE | 2019-04-03 09:16 | RAD_ITS ---
STUDY: X-RAY CHEST REASON FOR EXAM: Female, 78 years old. Dyspnea on effort TECHNIQUE: PA and lateral COMPARISON: November 10, 2017 FINDINGS: The lungs are clear and expanded. There is no demonstrated pleural abnormality. Normal size heart. Normal mediastinum and bob. Normal visualized pulmonary arteries. Mildly calcified tortuous aortic arch and descending thoracic aorta. Dorsal spine demonstrates scoliosis and degenerative change chronic compression of T12.. Normal visualized ribs, clavicles, and shoulders. There is no demonstrated abnormality of the visualized soft tissue structures of the upper abdomen. No significant change since prior exam RAD/Chest PA and Lateral IMPRESSION: No acute cardiopulmonary pathology Electronically Signed: García Wells MD at 19:53 EDT , Service support ,
[2019-04-03 10:08] LABS: Absolute Lymphocyte Count 1.58 X10^3/uL (0.83-4.51); Absolute Neutrophil Count 2.7 X10^3/uL (2.0-7.7); Basophil# 0.06 X10^3/uL; Basophil% 1.1 % (0-1); Eosinophil# 0.55 X10^3/uL; Hematocrit 40.6 % (37-47); Hemoglobin 13.4 g/dL (12.0-15.0); Lymphocyte # 1.58 X10^3/ul (4.0); Lymphocyte % 28.6 % (19-41); Mean Corpuscular Hgb 32.3 pg (27.0-32.0); Mean Corpuscular Volume 97.8 fL (81-99); Mean Platelet Vol. 8.9 fl (6.2-12.0); Monocyte# 0.62 X10^3/uL; Monocyte% 11.2 % (0-10); NRBC Flagged by Analyzer 0 % (0-5); Neutrophil # 2.67 X10^3/uL (2.7-7.7); Neutrophil % 48.4 % (47-70); Platelet Count 300 K/mm3 (150-450); RBC Distribution Width CV 12.7 % (11.6-14.6); RBC Distribution Width SD 45.4 fl (35.1-43.9); Red Blood Count 4.15 M/mm3 (4.2-5.4); White Blood Count 5.5 K/mm3 (4.4-11.0)
[2019-04-03 10:45] LABS: Vitamin B12 533 pg/mL (211-911)
[2019-04-03 10:47] LABS: ALB/GLOB Ratio 1.4 RATIO (0.9-2.4); AST(SGOT) 16 U/L (15-37); Alanine Aminotransfer ALT/SGPT 15 U/L (13-56); Albumin, Serum 4.3 g/dL (3.2-5.0); Alkaline Phosphatase 93 U/L (45-117); Anion Gap 9 (5-15); BUN 12 mg/dL (7-18); BUN/Creat Ratio 16.3 RATIO (10-20); Calcium,Total 9.3 mg/dL (8.5-10.1); Chloride 101 mmol/L (98-107); Creatinine, Serum 0.74 mg/dL (0.55-1.02); EST Glomerular Filtration Rate 81 mL/min (>60); Est Glom Filt Rate - Afr Amer 98 mL/min (>60); Ferritin 72 ng/mL (8-252); Glucose 103 mg/dL (74-106); Potassium 4.2 mmol/L (3.5-5.1); Protein, Total 7.3 g/dL (6.4-8.2); Sodium Level 138 mmol/L (136-145); Thyroid Stim Hormone (TSH) 2.21 uIU/mL (0.358-3.74)
== END ==
PROVIDERS: Family Provider Family Medicine; PCP Family Medicine; Referring Provider Family Medicine; Visit Provider Family Medicine
DX: E53.9 Vitamin B deficiency, unspecified (principal); R53.83 Other fatigue; R06.09 Other forms of dyspnea
CPT/HCPCS: 36415; 71046; 80053; 82607; 82728; 84443; 85025

== ENCOUNTER → 2019-10-21 16:35 | Outpatient (CLI) | payer MEDICARE, SELFPAY ==
[2019-06-07 10:39] VITALS: BMI 20.2
--- NOTE | 2019-10-21 16:39 | RAD_ITS ---
STUDY: X-RAY - PARANASAL SINUSES REASON FOR EXAM: Female, 79 years old. HEADACHES ENTIRE HEAD FOR ABOUT 1 MONTH NOW. TECHNIQUE: 3 view(s) of the paranasal sinuses were obtained. COMPARISON: None. FINDINGS: Normal visualized frontal, maxillary, ethmoidal and sphenoid sinuses. Normal visualized facial bones. No visualized fractures. No significant opacification by x-ray criteria. Multiple dental caps are present. The soft tissue structures are unremarkable. RAD/Sinuses min 3 Views IMPRESSION: Unremarkable x-rays of the paranasal sinuses. If symptomology continues further assessment with CT of the sinuses should be obtained which is a far more sensitive examination. Electronically Signed: William Payton MD at 19:49 EDT , Service support ,
--- NOTE | 2019-10-21 16:45 | RAD_ITS ---
STUDY: X-RAY CHEST REASON FOR EXAM: Female, 79 years old. RALES 1/4 [address] UP POSTERIOR CHEST WALL ON THE LEFT SIDE. TECHNIQUE: PA and lateral views of the chest. COMPARISON: April 03, 2019 FINDINGS: There is hyperinflation of the lungs consistent with chronic obstructive lung disease (COPD). No consolidation or pleural effusion or pulmonary edema is seen. Stable visualized osseous and mediastinal structures. Normal heart size. Chronic compression deformities of the upper lumbar spine noted. RAD/Chest PA and Lateral IMPRESSION: COPD Electronically Signed: William Payton MD at 18:08 EDT , Service support ,
[2019-10-21 17:52] LABS: Absolute Lymphocyte Count 1.38 X10^3/uL (0.83-4.51); Absolute Neutrophil Count 4.2 X10^3/uL (2.0-7.7); Basophil# 0.05 X10^3/uL; Basophil% 0.7 % (0-1); Eosinophil# 0.48 X10^3/uL; Hematocrit 39.3 % (37-47); Hemoglobin 12.6 g/dL (12.0-15.0); Lymphocyte # 1.38 X10^3/ul (4.0); Lymphocyte % 20.2 % (19-41); Mean Corp Hgb Conc 32.1 g/dL (32-36); Mean Corpuscular Hgb 32.2 pg (27.0-32.0); Mean Corpuscular Volume 100.5 fL (81-99); Mean Platelet Vol. 8.7 fl (6.2-12.0); Monocyte# 0.73 X10^3/uL; Monocyte% 10.7 % (0-10); NRBC Flagged by Analyzer 0 % (0-5); Neutrophil # 4.16 X10^3/uL (2.7-7.7); Neutrophil % 61.1 % (47-70); Platelet Count 272 K/mm3 (150-450); RBC Distribution Width CV 12.5 % (11.6-14.6); RBC Distribution Width SD 46.4 fl (35.1-43.9); Red Blood Count 3.91 M/mm3 (4.2-5.4); White Blood Count 6.8 K/mm3 (4.4-11.0)
[2019-10-21 18:36] LABS: ALB/GLOB Ratio 1.3 RATIO (0.9-2.4); AST(SGOT) 13 U/L (15-37); Alanine Aminotransfer ALT/SGPT 14 U/L (13-56); Albumin, Serum 3.8 g/dL (3.2-5.0); Alkaline Phosphatase 73 U/L (45-117); Anion Gap 5 (5-15); BUN 15 mg/dL (7-18); BUN/Creat Ratio 18.6 RATIO (10-20); CRP < 2.90 mg/L (0.0-3.0); Calcium,Total 8.9 mg/dL (8.5-10.1); Chloride 105 mmol/L (98-107); Creatinine, Serum 0.81 mg/dL (0.55-1.02); EST Glomerular Filtration Rate 73 mL/min (>60); Est Glom Filt Rate - Afr Amer 88 mL/min (>60); Globulin 2.9 g/dL (2.2-4.2); Glucose 124 mg/dL (74-106); Potassium 3.8 mmol/L (3.5-5.1); Protein, Total 6.7 g/dL (6.4-8.2); Sodium Level 138 mmol/L (136-145)
== END ==
PROVIDERS: PCP Family Medicine; Referring Provider Family Medicine; Visit Provider Family Medicine
DX: J44.9 Chronic obstructive pulmonary disease, unspecified (principal); R51 Headache
CPT/HCPCS: 36415; 70220; 71046; 80053; 85025; 86140

== ENCOUNTER → 2019-11-07 09:45 | Outpatient (CLI) | payer MEDICARE, SELFPAY ==
[2019-06-07 10:39] VITALS: BMI 20.2
--- NOTE | 2019-11-08 11:33 | PFT ---
INTRODUCTION: The patient is a 79-year-old female that presents for pulmonary function studies secondary to a diagnosis of COPD. Respiratory therapy reports good patient effort. Bronchodilators were used during testing. INTERPRETATION: Forced expiration spirometry demonstrates the presence of a moderate large airways obstructive ventilatory defect. There was a significant response to aerosolized bronchodilators. Spirograms are of good quality and do not plateau indicating slow emptying of the lungs. Body plethysmography was performed and reveals a decreased TLC to 80% of predicted, indicative of a mild restrictive ventilatory impairment. Diffusing capacity by single breath CO is within normal limits. IMPRESSION: Partially reversible moderate mixed ventilatory defect with preserved diffusing capacity.
== END ==
PROVIDERS: Family Provider Family Medicine; PCP Family Medicine; Referring Provider Family Medicine; Visit Provider Family Medicine
DX: J44.9 Chronic obstructive pulmonary disease, unspecified (principal)
CPT/HCPCS: 94060; 94726; 94729

== ENCOUNTER → 2019-11-08 12:38 | Outpatient (CLI) | payer MEDICARE, SELFPAY ==
[2019-06-07 10:39] VITALS: BMI 20.2
[2019-11-08 13:59] VITALS: PULSE 100; PULSE 102; PULSE 103; PULSE 81; PULSE 83; PULSE 98; PULSE 99; O2SAT 92; O2SAT 93; O2SAT 95; O2SAT 96; O2SAT 97
--- NOTE | 2019-11-09 07:12 | PCM.PSN.6M ---
PSN 6 Minute Walk Test - 6 Minute Walk Test 6 Minute Walk Test: 6 Minute Walk Test PSN:6-Minute Walk Test Start: 11/08/19 13:59 Freq: Status: Active Protocol: RESP.6MINW Document 11/08/19 13:59 [facility] (Rec: 11/08/19 14:04 [facility] [id number]) 6 Minute Walk Test Date Performed 11/08/19 Time Performed 12:30 Height 5 ft 6 in Weight: 125 lb Weight in Pounds 125.[address]: Sergio Bailey Assistive device used: None Pre-test Oxygen Delivery Method Room Air Pulse Ox (%) 96 Pulse Rate (60-100 beats/min) 83 Dyspnea Shania Scale (0-10) 4 Reported Symptoms Increased Work of Breathing 1st minute Oxygen Delivery Method Room Air Pulse Ox (%) 95 Pulse Rate (60-100 beats/min) 99 Dyspnea Shania Scale (0-10) 4 Number of Rests Taken 0 Reported Symptoms Increased Work of Breathing 2nd minute Oxygen Delivery Method Room Air Pulse Ox (%) 92 Pulse Rate (60-100 beats/min) 100 Dyspnea Shania Scale (0-10) 5 Number of Rests Taken 1 Reported Symptoms Increased Work of Breathing 3rd minute Oxygen Delivery Method Room Air Pulse Ox (%) 93 Pulse Rate (60-100 beats/min) 102 H Dyspnea Shania Scale (0-10) 5 Number of Rests Taken 0 Reported Symptoms Increased Work of Breathing 4th minute Oxygen Delivery Method Room Air Pulse Ox (%) 92 Pulse Rate (60-100 beats/min) 103 H Dyspnea Shania Scale (0-10) 5 Number of Rests Taken 1 Reported Symptoms Increased Work of Breathing 5th minute Oxygen Delivery Method Room Air Pulse Ox (%) 95 Pulse Rate (60-100 beats/min) 98 Dyspnea Shania Scale (0-10) 4 Number of Rests Taken 1 Reported Symptoms Increased Work of Breathing 6th minute Oxygen Delivery Method Room Air Pulse Ox (%) 92 Pulse Rate (60-100 beats/min) 102 H Dyspnea Shania Scale (0-10) 5 Number of Rests Taken 0 Reported Symptoms Increased Work of Breathing Post-test Oxygen Delivery Method Room Air Pulse Ox (%) 97 Pulse Rate (60-100 beats/min) 81 Dyspnea Shania Scale (0-10) 4 Reported Symptoms Increased Work of Breathing Full Laps Walked 13 Partial Lap, Number of Tiles Walked 12 Total Distance Walked (ft) 779 - Interpretation Interpretation: The patient ambulated 779 feet over the course of 6 minutes beginning on room air without assistive devices or breaks. Pretesting oxygen saturation was noted to be 96% on room air. With ambulation, the sharmila oxygen saturation was 92%. Although there was evidence of impaired walk distance, there was no significant exertional oxygen desaturation. - Recommendations Recommendations: There is no indication for the use of supplemental oxygen at this time.
--- OUTSIDE RECORDS SUMMARY | 2020-04-14 07:50 | XMS RPT_ITS | CCD ---
:1940 External Reference #:[id number] Author Organization [facility] Care Team Providers Name Role Phone Brandi, Megan Unavailable BrandiMegan Unavailable Robin (Pt) Unavailable JENNIFER BELTRAN Unavailable Unavailable Allergies Reported Allergen Reaction(s) Severity Date of Onset Location DULoxetine Other: See Comments Low, Unknown 01-15-2018 [facility] Translations: [ (50511) DULOXETINE] NO KNOWN ALLERGIES [facility] Translations: [ NO Other Cam pus KNOWN ALLERGIES] Repository Medications Medication Name Sig Date Prescriber Location Acetaminophen / Aspirin-Acetam 07-25-2014 [facility] Aspirin / Caffeine inophen-Caffei (31765) ne (EXCEDRIN MIGRAINE) 250-250-65 mg per tablet Take 1 tablet by mouth every 6 hours as needed (migraine). 40 tablet 0 07/25/2014 Active Comment: Take 1 tablet by mouth every 6 hours as needed (migraine). albuterol HFA albuterol HFA 11-15-2019 [facility] Provider [facility] colette (PROVENTIL HFA, (PROVENTIL HFA, ([id number]) VENTOLIN HFA) 90 VENTOLIN HFA) 90 mcg/actuation inhaler mcg/actuation inhaler INHALE 1 PUFF BY MOUTH EVERY 4 HOURS NEEDED AND 15 MINUTES PRIOR TO ACTIVITY 0 11/15/2019 Active albuterol HFA (PROVENTIL HFA, 11-15-2019 [facility] Provider [facility] ([id number]) VENTOLIN HFA) 90 mcg/actuation inhaler INHALE 1 PUFF BY MOUTH EVERY 4 HOURS NEEDED AND 15 MINUTES PRIOR TO ACTIVITY 0 11/15/2019 Active albuterol HFA (PROVENTIL HFA, 11-15-2019 [facility] Provider [facility] ([id number]) VENTOLIN HFA) 90 mcg/actuation inhaler INHALE 1 PUFF BY MOUTH EVERY 4 HOURS NEEDED AND 15 MINUTES PRIOR TO ACTIVITY 0 11/15/2019 Active albuterol HFA (PROVENTIL HFA, 11-15-2019 [facility] Provider [facility] ([id number]) VENTOLIN HFA) 90 mcg/actuation inhaler INHALE 1 PUFF BY MOUTH EVERY 4 HOURS NEEDED AND 15 MINUTES PRIOR TO ACTIVITY 0 11/15/2019 Active albuterol HFA (PROVENTIL HFA, 11-15-2019 [facility] Provider [facility] ([id number]) VENTOLIN HFA) 90 mcg/actuation inhaler INHALE 1 PUFF BY MOUTH EVERY 4 HOURS NEEDED AND 15 MINUTES PRIOR TO ACTIVITY 0 11/15/2019 Active albuterol HFA (PROVENTIL HFA, 11-15-2019 [facility] Provider [facility] ([id number]) VENTOLIN HFA) 90 mcg/actuation inhaler INHALE 1 PUFF BY MOUTH EVERY 4 HOURS NEEDED AND 15 MINUTES PRIOR TO ACTIVITY 0 11/15/2019 Active albuterol HFA (PROVENTIL HFA, 11-15-2019 [facility] Provider [facility] ([id number]) VENTOLIN HFA) 90 mcg/actuation inhaler INHALE 1 PUFF BY MOUTH EVERY 4 HOURS NEEDED AND 15 MINUTES PRIOR TO ACTIVITY 0 11/15/2019 Active albuterol HFA (PROVENTIL HFA, 11-15-2019 [facility] Provider [facility] ([id number]) VENTOLIN HFA) 90 mcg/actuation inhaler INHALE 1 PUFF BY MOUTH EVERY 4 HOURS NEEDED AND 15 MINUTES PRIOR TO ACTIVITY 0 11/15/2019 Active albuterol HFA (PROVENTIL HFA, 11-15-2019 [facility] Provider [facility] ([id number]) VENTOLIN HFA) 90 mcg/actuation inhaler INHALE 1 PUFF BY MOUTH EVERY 4 HOURS NEEDED AND 15 MINUTES PRIOR TO ACTIVITY 0 11/15/2019 Active albuterol HFA (PROVENTIL HFA, 11-15-2019 [facility] Provider [facility] ([id number]) VENTOLIN HFA) 90 mcg/actuation inhaler INHALE 1 PUFF BY MOUTH EVERY 4 HOURS NEEDED AND 15 MINUTES PRIOR TO ACTIVITY 0 11/15/2019 Active Comment: INHALE 1 PUFF BY MOUTH EVERY 4 HOURS NEEDED AND 15 MINUTES PRIOR TO ACTIVITY Amoxicillin Amoxicillin 500 mg 01-10-2020 [facility] Take 6 tablets (29720 ) by mouth 1 hour before dental procedure and 2 tablets by mouth 6 hours after. 16 tablet 2 01/10/2020 Active Comment: Take 6 tablets by mouth 1 ho ur before dental procedure and 2 tablets by mouth 6 hours after. Ascorbic Acid ascorbic acid, 12-12-2019 [facility] Sherman[facility] vitamin C, (VITAMIN Mytrosevich (43554) C) 500 mg tablet Take 1 tablet by mouth twice daily with meals. 60 tablet 0 12/12/2019 Active Comment: Take 1 tablet by mouth twice daily with meals. Aspirin aspirin, enteric 12-12-2019 Serene Sherman) Cynthia [facility] coated (ECOTRIN LOW Mytrosevich (88128) STRENGTH) 81 mg EC tablet Take 1 tablet by mouth twice daily for 28 days. 56 tablet 0 12/12/2019 Active Comment: Take 1 tablet by mouth twice daily for 28 days. Budesonide / budesonide-formoterol 11-15-2019 f Provider [facility] formoterol (SYMBICORT) 160-4.5 (43218) mcg/actuation inhaler Inhale 2 Puffs as instructed twice daily. 0 11/15/2019 Active budesonide-formoterol (SYMBICORT) 11-15-2019 [facility] Provider [facility] ([id number]) 160-4.5 mcg/actuation inhaler Inhale 2 Puffs as instructed twice daily. 0 11/15/2019 Active budesonide-formoterol (SYMBICORT) 11-15-2019 f Provider [facility] ([id number]) 160-4.5 mcg/actuation inhaler Inhale 2 Puffs as instructed twice daily. 0 11/15/2019 Active budesonide-formoterol (SYMBICORT) 11-15-2019 [facility] Provider [facility] ([id number]) 160-4.5 mcg/actuation inhaler Inhale 2 Puffs as instructed twice daily. 0 11/15/2019 Active budesonide-formoterol (SYMBICORT) 11-15-2019 f Provider [facility] ([id number]) 160-4.5 mcg/actuation inhaler Inhale 2 Puffs as instructed twice daily. 0 11/15/2019 Active budesonide-formoterol (SYMBICORT) 11-15-2019 [facility] Provider [facility] ([id number]) 160-4.5 mcg/actuation inhaler Inhale 2 Puffs as instructed twice daily. 0 11/15/2019 Active budesonide-formoterol (SYMBICORT) 11-15-2019 [facility] Provider [facility] ([id number]) 160-4.5 mcg/actuation inhaler Inhale 2 Puffs as instructed twice daily. 0 11/15/2019 Active budesonide-formoterol (SYMBICORT) 11-15-2019 [facility] Provider [facility] ([id number]) 160-4.5 mcg/actuation inhaler Inhale 2 Puffs as instructed twice daily. 0 11/15/2019 Active budesonide-formoterol (SYMBICORT) 11-15-2019 [facility] Provider [facility] ([id number]) 160-4.5 mcg/actuation inhaler Inhale 2 Puffs as instructed twice daily. 0 11/15/2019 Active budesonide-formoterol (SYMBICORT) 11-15-2019 f Provider [facility] ([id number]) 160-4.5 mcg/actuation inhaler Inhale 2 Puffs as instructed twice daily. 0 11/15/2019 Active Comment: Inhale 2 Puffs as instructed twice daily. CALCIUM CITRATE/VITAMIN D3 CALCIUM CITRATE/VITAMIN [facility] Provider [facility] (CITRACAL + D ORAL) D3 (CITRACAL + D ORAL) ([id number]) Indications: Osteoporosis, unspecified Take by mouth once daily. 0 Active CALCIUM CITRATE/VITAMIN D3 (CITRACAL + D [facility] Pro [facility] (40660) ORAL) Indications: Osteoporosis, unspecified Take by mouth once daily. 0 Active CALCIUM CITRATE/VITAMIN D3 (CITRACAL + D [facility] ([id number]) ORAL) Indications: Osteoporosis, unspecified Take by mouth once daily. 0 Active CALCIUM CITRATE/VITAMIN D3 (CITRACAL + D [facility] (38048) ORAL) Indications: Osteoporosis, unspecified Take by mouth once daily. 0 Active CALCIUM CITRATE/VITAMIN D3 (CITRACAL + D [facility] (00324) ORAL) Indications: Osteoporosis, unspecified Take by mouth once daily. 0 Active CALCIUM CITRATE/VITAMIN D3 (CITRACAL + D Ccf Pro vider [facility] (39609) ORAL) Indications: Osteoporosis, unspecified Take by mouth once daily. 0 Active CALCIUM CITRATE/VITAMIN D3 (CITRACAL + D [facility] Pro vider [facility] (17295) ORAL) Indications: Osteoporosis, unspecified Take by mouth once daily. 0 Active CALCIUM CITRATE/VITAMIN D3 (CITRACAL + D [facility] (82174) ORAL) Indications: Osteoporosis, unspecified Take by mouth once daily. 0 Active CALCIUM CITRATE/VITAMIN D3 (CITRACAL + D [facility] (53288) ORAL) Indications: Osteoporosis, unspecified Take by mouth once daily. 0 Active CALCIUM CITRATE/VITAMIN D3 (CITRACAL + D [facility] (28702) ORAL) Indications: Osteoporosis, unspecified Take by mouth once daily. 0 Active Comment: Take by mouth once daily. Cholecalciferol Cholecalciferol, Vitamin 07-20-2017 García lancaster [facility] D3, 2,000 unit cap Take 1 (4 0621) capsule by mouth once daily. 0 07/20/2017 Active Comment: Take 1 capsule by mouth once daily. Etodolac etodolac (LODINE) 400 mg 12-16-2019 Kodak Yao [facility] (95380) tablet Take 400 mg by mouth every 8 hours. 0 12/16/2019 Active Comment: Take 400 mg by mouth every 8 hours. Ondansetron ondansetron (ZOFRAN) 4 mg 01-15-2018 García caputo [facility] tablet Take 0.5-1 tablets (4 6745) by mouth every 8 hours as needed for Nausea/Vomiting. 30 tablet 5 01/15/2018 Active Comment: Take 0.5-1 tablets by mouth every 8 hours as needed for Nausea/Vomiting. oxybutynin oxybutynin ER (DITROPAN 12-05-2019 [facility] Provider [facility] (05129) XL) 10 mg 24 hr tablet TAKE 1 TABLET BY MOUTH ONCE DAILY AT SUPPER TIME 0 12/05/2019 Active Comment: TAKE 1 TABLET BY MOUTH ONCE DAILY AT SUPPER TIME pantoprazole pantoprazole DR (PROTONIX) 11-20-2016 García velasquez [facility] 40 mg tablet Indications: (4 7865) gastroesophageal reflux disease Take 1 tablet by mouth daily before dinner. 90 tablet 1 01/15/2018 Active Comment: Take 1 tablet by mouth daily before dinner. Take 40 mg by mouth. tiZANidine tiZANidine (ZANAFLEX) 4 02-14-2020 Emad N Estemalik [facility] mg tablet Take 1 tab (41114) when needed for headaches , up to one daily 30 tablet 11 02/14/2020 Active Comment: Take 1 tab when needed for h eadaches , up to one daily venlafaxine venlafaxine ER (EFFEXOR XR) 150 [facility] Provi jono [facility] (22319) mg 24 hr capsule Take 150 mg by mouth. 0 Active Comment: Take 150 mg by mouth. Problems Active Problems Category Problem Name Status Date Location Chronic obstructive Chronic obstructive lung Active 8 - [facility] pulmonary disease and disease (63774 ) bronchiectasis Esophageal disorders Gastroesophageal reflux Active [facility] disease (62510) Glaucoma Preglaucoma, unspecified, Active 07-17-2012 - [facility] unspecified eye (54768) Mood disorders Severe recurrent major Active [facility] depression (09426) Nutritional deficiencies Vitamin D deficiency Active 06-21-20 06 [facility] (06654) Osteoarthritis Localized, secondary Active 12-05-2005 - [facility] osteoarthritis of the (68530 ) pelvic region and thigh Osteoporosis Senile osteoporosis Active 10-16-2017 - 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 (21067) Other connective tissue History of total hip Active 0 - [facility] disease arthroplasty (63593) Other gastrointestinal Other constipation Active 04-12-2018 - [facility] disorders (21066) Screening and history of Ex-smoker Active [facility] mental health and (07992) substance abuse codes Spondylosis; Backache Active 08-10-2006 - [facility] c intervertebral disc (04527) disorders; other back problems Unclassified Patient encounter status Active 01-15-2018 - [facility] (68928) Unclassified Drug therapy finding Active 03-02-2017 - [facility] (18013) Past or Other Problems Category Problem Name Status Date Location Deficiency and other Iron deficiency anemia Completed 03-02-2017 [facility] anemia (43030) Genitourinary symptoms Microscopic hematuria Completed [facility] and ill-defined (48753) conditions Headache; including Headache Completed 07-17-2012 [facility] migraine (06011) Immunizations and Anti-nuclear factor Completed 03-27-2017 [facility] screening for positive (11182) infectious disease Neoplasms of Neoplasm of uncertain Completed 08-20-2010 [facility] unspecified nature or behavior of kidney (99775) uncertain behavior Other and unspecified History of polyp of Completed 07-19-2017 [facility] benign neoplasm colon (82235) Other connective H/O: musculoskeletal Completed 07-09-2014 - [facility] tissue disease disease (32741) Other connective Muscle weakness Completed 09-16-2008 [facility] tissue disease (52993) Other connective Muscle, ligament and Completed 09-16-2008 [facility] tissue disease fascia disorders (76020) Other eye disorders Tear film insufficiency Completed 06-24-2013 [facility] (12791) Other injuries and H/O: vertebral fracture Completed 01-31-2014 [facility] conditions due to (43136) external causes Other lower Dyspnea on exertion Completed 02-21-2018 [facility] respiratory disease (95189) Other lower Pleurodynia Completed 11-30-2017 [facility] respiratory disease (66840) Other screening for Echocardiogram abnormal Completed 02-21-2018 - [facility] suspected conditions (76188) (not mental disorders or infectious disease) Results Result Name Value Range Unit Interpretation Flag Date Location progress on 2020-04 PROGRESS HNO ID: [id number] Normal 04-03-2020 [facility] Author: Obinna Garcia) Shala ([id number]) Service: ? Author Type: Physician Screen Cutter And Trimmer Type: Progress Notes Filed: 04/03/2020 10:49 AM Note Text: Chronic, severe T12 compression deformity Clay next available Obinna Last PA-C progress on 2020-03 PROGRESS HNO ID: [id number] Normal 03-31-2020 [facility] Author: Ngozi (Pt) Duy Bass ([id number]) Service: ? Author Type: Physical Therapist Type: Progress Notes Filed: 03/31/2020 3:13 PM Note Text: Episode Visit Count: 7 Therapist That Will Oversee The Plan Of Care: Ngozi Gordillo Start of Care Date: 01/13/20 Onset Date: 12/10/19 Plan of Care Certification Date: 02/21/20 Next Certification Due Date: 04/03/20 Patient Identified by Name and Date of : Yes REHABILITATION AND SPORTS THERAPY PHYSICAL THERAPY TREATMENT NOTE ASSESSMENT: Argenis Ho demonstrated difficulty with pain in left hip and back. She had improvements with gait today with upright posture and near normal gait with use of st cane. Decreased intensity of exercises today. No increase in pain at end of treatment. The patient will continue to benefit from ongoing skilled physical therapy fo r review of exercises and plan of care update. PLAN FOR NEXT VISIT: POC update SUBJECTIVE: Patient Reason for Visit: Patient reports she rhodes d an MRI and it showed some pinched nerves. She reports the left hip has been hurting alot. She reports taking Aleve and it has not been helpful f or pain. She reports taking a muscle relaor at night which helps with sle ep. Pain: Pain Pain Level: 7 Pain Location: Hip - Left Description: Sharp(sharp foprm hip into inner groin) Frequency: Continuous Pain Level 2: 8 Pain Location 2: Low Back/Lumbar Spine - Left Description 2: Sharp Frequency 2: Continuous Post Treatment Pain Post Treatment Pain Level: No Change Post Treatment Symptoms: Supine left adductor stretch felt r eally good. OBJECTIVE MEASURES WITH LEVEL OF FUNCTION: Upright posture and near normal gait with use of st cane. TREATMENT: Therapeutic Exercise: 1: Supine left heel slides 2x12 2: supine hip adductor stretch 20 sec x5 3: supine hip abduction left on sliding board 2x10 4: SAQ 1# 2x10 5: seated yellow hip band abduction seated 2x10 6: green rep band seated hamstring curls 2x12 7: sit to stand from [id number] with UE assist(pain in left h ip with this with no arms) 8: seated core dynamic stabilization yellow rep band perturb ation from front 3x12 9: green step ups forward right and left 1x10 10: Green step left lateral step up 1x10 with assist 11: standing hamstring curls 1# B 1x10 12: standing hip abduction with 1# 1x10 B 13: Education on using st cane at all times to assist with g ait and reduction of pain. Patient with upright posture and minimal gait deviation with use of cane today on level surface. Skilled Intervention: Patient was educated in proper exercis e technique and purpose for exercises. Skilled judgment was provided in selection of appropriate in terventions. Correct performance of therapeutic exercises was facilitated with verbal and visual cuing. Patient education as noted. Billing: [facility]: Therapeutic Exercise (56764): 1:1 time: 40 minutes (3 units: 38-52 mins) Total time / Length of visit: 40 minutes Nevin Lopez PT-A/Ngozi Gordillo PT cntherapy on 03-31 CNTHERAPY OT/PT/Speech Visit (PTWS) Normal 03-04 [facility] ([id number]) 1940 Clinic Date Time Provider Department [facility] 03/31/20 2:00 PM NEVIN LOPEZ (ELECTRIC SCREW DRIVER OPERATOR) PTWS (77496) Date Time Provider Department [place] 03/31/2020 2:00 PM [id number], NANCY (ELECTRIC SCREW DRIVER OPERATOR) PTWS [facility] Reason for Visit: Physical Therapy [503] Primary Visit Diagnosis: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 Date Reviewed: 01/10/2020 Reviewed by: Mar Sherman) JAXON Howard - Fully Assessed Prescriptions as of 03/31/2020 Sig: OXYBUTYNIN CHLORIDE ER 10 MG * TAKE 1 TABLET BY MOUTH ONCE D * VENLAFAXINE ER 150 MG CAPSULE* Take 150 mg by mouth. PANTOPRAZOLE 40 MG TABLET,DEL* Take 40 mg by mouth. TIZANIDINE 4 MG TABLET Take 1 tab when needed for he* AMOXICILLIN 500 MG TABLET Take 6 tablets by mouth 1 braden* ETODOLAC 400 MG TABLET Take 400 mg by mouth every 8 * ASPIRIN 81 MG TABLET,DELAYED * Take 1 tablet by mouth twice * ASCORBIC ACID (VITAMIN C) 500* Take 1 tablet by mouth twice * BUDESONIDE-FORMOTEROL HFA 160* Inhale 2 Puffs as instructed * ALBUTEROL SULFATE HFA 90 MCG/* INHALE 1 PUFF BY MOUTH EVERY * PANTOPRAZOLE 40 MG TABLET,DEL* Take 1 tablet by mouth daily * ONDANSETRON HCL 4 MG TABLET Take 0.5-1 tablets by mouth e* CHOLECALCIFEROL (VITAMIN D3) * Take 1 capsule by mouth once * CITRACAL + D ORAL Take by mouth once daily. [id number]* Take 1 tablet by mouth every * Progress Notes: Ngozi Gordillo, PT 03/31/2020 3:13 PM Signed Episode Visit Count: 7 Therapist That Will Oversee The Plan Of Care: Ngozi Gordillo Start of Care Date: 01/13/20 Onset Date: 12/10/19 Plan of Care Certification Date: 02/21/20 Next Certification Due Date: 04/03/20 Patient Identified by Name and Date of : Yes REHABILITATION AND SPORTS THERAPY PHYSICAL THERAPY TREATMENT NOTE ASSESSMENT: Argenis Ho demonstrated difficulty wit h pain in left hip and back. She had improvements w ith gait today with upright posture and near normal gait with use of st cane. Decreased intensity of exercises today. No increase in pain at end of treatment. The patient will continue to benefit from ongoing skilled physical therapy for review of exercises and plan of care update. PLAN FOR NEXT VISIT: POC update SUBJECTIVE: Patient Reason for Visit: Patient reports she had an MRI and it showed some pinched nerves. She reports the left hip has been hurting alot. She reports taking Aleve and it has not been helpful for pain. She reports taking a muscle relaor at night which helps with sleep. Pain: Pain Pain Level: 7 Pain Location: Hip - Left Description: Sharp(sharp foprm hip into inner groin) Frequency: Continuous Pain Level 2: 8 Pain Location 2: Low Back/Lumbar Spine - Left Description 2: Sharp Frequency 2: Continuous Post Treatment Pain Post Treatment Pain Level: No Change Post Treatment Symptoms: Supine left adductor stretch felt r eally good. OBJECTIVE MEASURES WITH LEVEL OF FUNCTION: Upright posture and near normal gait with use of st cane. TREATMENT: Therapeutic Exercise: 1: Supine left heel slides 2x12 2: supine hip adductor stretch 20 sec x5 3: supine hip abduction left on sliding board 2x10 4: SAQ 1# 2x10 5: seated yellow hip band abduction seated 2x10 6: green rep band seated hamstring curls 2x12 7: sit to stand from [id number] with UE assist(pa in in left hip with this with no arms) 8: seated core dynamic stabilization yellow rep band p erturbation from front 3x12 9: green step ups forward right and left 1x10 10: Green step left lateral step up 1x10 with assist 11: standing hamstring curls 1# B 1x10 12: standing hip abduction with 1# 1x10 B 13: Education on using st ca ne at all times to assist with gait and reduction of pain. Patient with upright posture and m inimal gait deviation with use of cane today on level surface. Skilled Intervention: Patient was educated in proper exerc ise technique and purpose for exercises. Skilled judgment was provided in selection of appropriate in terventions. Correct performance of therapeutic exercises was facil itated with verbal and visual cuing. Patient education as noted. Billing: [facility]: Therapeutic Exercise ( 19744): 1:1 time: 40 minutes (3 units: 38-52 mins) Total time / Length of visit: 40 minutes Nevin Lopez PTRaúl/Ngozi Gordillo PT Previous Version progress on 2020-03 PROGRESS HNO ID: [id number] 03-26-2020 [facility] Author: Obinna Butler (Aiad) Shala Bass ([id number]) Service: ? Author Type: Physician Screen Cutter And Trimmer Type: Progress Notes Filed: 04/03/2020 10:49 AM Note Text: Patient name: Argenis Ho Are you being referred by a [facility] Provider or Pain Management Provider at [facility]? No If answer is YES please schedule directly with surgeon, tr chikage does not need to be completed. Is this a self-referral No If not, who is the Referring Provider Dr. Kodak Berg MRI/CT/myelogram within 12 months? Yes If NO, please refer to medical spine or PCP to complete ab ove imaging, triage does not need to be completed MRI/CT/myelogram viewable in Epic: No If not, please provide [phone] to fax in imaging report s for review. Also, please inform patient to hand carry imaging disc to appointm ent. XR (spine) within 12 months: No If YES,? please ask for the name/address of the facility wh ere the XR was completed: N/A Requested provider (First and Last name): Dr. Amor Williamson 1. Where are you having symptoms related to this visit? [facility] r back on left hand side; in a lot of pain 2. Are you having any of the following symptoms: Difficulty walking Yes Numbness No Weakness No Trouble using your hands? No 3. Have you had any injections or physical therapy in the la st 12 months? Yes If YES then please ask for the name/address of the facilit y where the injections and/or physical therapy was completed : Physical Therapy: @[facility] Have you tried any other kinds of non-surgical treatments in the last 12 months? (For example: NSAIDS, muscle relaxants, analgesics, oral steroids, Chiropractor, Acupuncture): muscle relaxants 4. Are you currently taking daily prescribed narcotic medica tions for your current symptoms (For example Oxycodone, Hydrocodone, Tramad ol, Morphine, Other)? No 5. Have you had previous spinal surgery for this same sympto ms? No If YES? please [facility]: [facility]A Additional Comments : [phone] [facility] (KATHYAVNADER) Normal 03-20-2020 [facility] ARGENIS HO ([id number]) 1940 [facility] Date Time Provider Department ([id number]) 03/20/20 KODAK BERG During your visit today, we recorded the following informati on about you: Aisha [facility] 03/20/2020 9:44 AM Signed Patient calling stating that she had a MRI that advised that she should consider to consult with a lower back surgeon. She would lik e 1-2 names of recommendations for this from her dr Please advise Allergies As of Date: 03/20/2020 Noted Allergy Reaction CYMBALTA (DULOXETINE) 01/15/2018 14 - Other: See Comments Comments: Made her feel emotionless. Date Reviewed: 01/10/2020 Reviewed by: Mar Sherman) JAXON Howard - Fully Assessed Reason for Visit: Question [1327] Prescriptions as of 03/20/2020 Sig: OXYBUTYNIN CHLORIDE ER 10 MG * TAKE 1 TABLET BY MOUTH ONCE D * VENLAFAXINE ER 150 MG CAPSULE* Take 150 mg by mouth. PANTOPRAZOLE 40 MG TABLET,DEL* Take 40 mg by mouth. TIZANIDINE 4 MG TABLET Take 1 tab when needed for he* AMOXICILLIN 500 MG TABLET Take 6 tablets by mouth 1 braden* ETODOLAC 400 MG TABLET Take 400 mg by mouth every 8 * ASPIRIN 81 MG TABLET,DELAYED * Take 1 tablet by mouth twice * ASCORBIC ACID (VITAMIN C) 500* Take 1 tablet by mouth twice * BUDESONIDE-FORMOTEROL HFA 160* Inhale 2 Puffs as instructed * ALBUTEROL SULFATE HFA 90 MCG/* INHALE 1 PUFF BY MOUTH EVERY * PANTOPRAZOLE 40 MG TABLET,DEL* Take 1 tablet by mouth daily * ONDANSETRON HCL 4 MG TABLET Take 0.5-1 tablets by mouth e* CHOLECALCIFEROL (VITAMIN D3) * Take 1 capsule by mouth once * CITRACAL + D ORAL Take by mouth once daily. [id number]* Take 1 tablet by mouth every * Problem List As Of Date 03/20/2020 Noted Resolved Secondary localized osteoarthrosis, pelvic ovidio*12/05/2005 Primary localized osteoarthrosis, lower leg [M1*12/05/2005 Primary localized osteoarthrosis, hand [M19.049]12/05/2005 Vitamin D deficiency [E55.9] 06/21/2006 Pain in thoracic spine [M54.6] 08/10/2006 Cervicalgia [M54.2] 03/22/2007 More... 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 GERD (gastroesophageal reflux disease) [K21.9] More... 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 Displacement of lumbar intervertebral disc with*01/31/2014 History of dislocation of hip [Z87.828] 07/09/2014 More... Occipital neuralgia of right side [M54.81] 02/24/2016 Iron deficiency anemia [D50.9] 03/02/2017 Current use of proton pump inhibitor [Z79.899] 03/02/2017 NEFTALY positive [R76.8] 03/27/2017 History of colonic polyps [Z86.010] 07/19/2017 Age-related osteoporosis without current pathol*10/16/2017 Encounter for screening for cardiovascular diso*01/15/2018 Encounter for screening for diabetes mellitus [*01/15/2018 COPD (chronic obstructive pulmonary disease) (H*02/05/2018 More... Abnormal stress ECG [R94.39] 02/21/2018 More... 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.*01/13/2020 Encounter Status:Closed by MAR HOWARD on 03/20/20 xr hip lawrence 5v pel+ ap/lat ea hip on 2020-03-19 XR HIP LAWRENCE 5V * * *Final Report* * * Normal [facility] PEL+ AP/LAT EA DATE OF EXAM: Mar 19 2020 2:05PM [facility] ([id number]) HIP WRX [id number] - XR HIP LAWRENCE 5V PEL+ AP/LAT EA HIP / [id number] PROCEDURE REASON: multiple diagnoses * * * * Physician Interpretation * * * * EXAMINATION: XR HIP LAWRENCE 5V PEL+ AP/LAT EA HIP PATIENT/TECHNOLOGIST PROVIDED HISTORY: pt states had left hi p replaced in December was doing ok then a month ago had pain in lateral si de of hip to the inner left thigh/groin area no inj right is ok CLINICAL INFORMATION: 79 years old Female with Pain in left hip Pain in both knees, unspecified chronicity Pain in both knees, unspe cified chronicity TECHNIQUE: XR HIP LAWRENCE 5V PEL+ AP/LAT EA HIP Laterality: BILATERAL Number of different views (projections): 5 COMPARISON: 01/10/2020 RESULT: No acute fracture or dislocation. Bilateral hip arthroplasti es are without complication and in satisfactory anatomic alignment. Mild to moderate degenerative changes of the sacroiliac joints and p ubic symphysis. Incompletely assessed degenerative changes of the lumbosacral spine. 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 Secure Software Assessor: LEE Transcribe Date/Time: Mar 19 2020 2:11P Dictated by : SUNI JOHNSTON DO This examination was interpreted and the report reviewed and electronically signed by: SUNI JOHNSTON DO on Mar 19 2020 2:25PM EST [id number] progress on 2020-03 PROGRESS HNO ID: [id number] Normal 03-19-2020 [facility] Author: Maria Isabel Evans (Rt) Genessi Perkins Valentine ([id number]) Service: ? Author Type: Partner Type: Progress Notes Filed: 03/19/2020 2:07 PM Note Text: Radiology Service Progress Note PATIENT NAME: Argenis Ho DATE OF SERVICE: March 19, 2020 TIME: 2:07 PM PATIENT IDENTITY VERIFICATION COMPLETED USING TWO (2) IDENTI FIERS: Name and Date of confirmed by patient verbally. FALL SCREENING: Has the patient had 2 falls in the last year or 1 fall with injury or currently using an Ambulatory Assistive Devic e (Walker, Cane, Wheelchair, Crutches, etc.)? No PATIENT GENDER DATA: Female. status: : No status: NO. PATIENT RELEVANT IMPLANT DATA REVIEWED: Not Applicable RADIOLOGY DEPARTMENT: General X-ray: Exam(s) Completed: Pelv is X-Ray: Pelvis with Hip Bilateral PERIPHERAL IV DATA: Not applicable SIGNED BY: RT Praveen March 19, 2020 2:07 PM cnpn [facility]03[facility]) Normal 03-16-2020 [facility] ARGENIS HO ([id number]) 1940 [facility] Date Time Provider Department ([id number]) 03/16/20 KODAK BERG ORQ During your visit today, we recorded the following informati on about you: Tierney Meghan 03/16/2020 2:36 PM Signed Patient is calling to let provider know she is having pain in her left hip. Patient states she had hip surgery in December of this year. Patient states she does not agree with Mar's diagnosis. Patient requesting an XR and an appointment with provider. Patient would appreciate a return call from provider office to discuss. Please advise. Son Grayson 03/18/2020 5:35 PM Signed Spoke with the patient, advised her per Mar the re is an order for X-ray's on her chart and they are reque sting that she get those images done at any [facility] and continue with the daily Aleve for 2 weeks. Once X-rays are complete they will go from there. She voiced understanding and appreciated the return call. Allergies As of Date: 03/16/2020 Noted Allergy Reaction CYMBALTA (DULOXETINE) 01/15/2018 14 - Other: See Comments Comments: Made her feel emotionless. Date Reviewed: 01/10/2020 Reviewed by: Mar Sherman) JAXON Howard - Fully Assessed Reason for Visit: Patient Question [2974] Prescriptions as of 03/16/2020 Sig: OXYBUTYNIN CHLORIDE ER 10 MG * TAKE 1 TABLET BY MOUTH ONCE D * VENLAFAXINE ER 150 MG CAPSULE* Take 150 mg by mouth. PANTOPRAZOLE 40 MG TABLET,DEL* Take 40 mg by mouth. TIZANIDINE 4 MG TABLET Take 1 tab when needed for he* AMOXICILLIN 500 MG TABLET Take 6 tablets by mouth 1 braden* ETODOLAC 400 MG TABLET Take 400 mg by mouth every 8 * BUDESONIDE-FORMOTEROL HFA 160* Inhale 2 Puffs as instructed * ALBUTEROL SULFATE HFA 90 MCG/* INHALE 1 PUFF BY MOUTH EVERY * PANTOPRAZOLE 40 MG TABLET,DEL* Take 1 tablet by mouth daily * ONDANSETRON HCL 4 MG TABLET Take 0.5-1 tablets by mouth e* CHOLECALCIFEROL (VITAMIN D3) * Take 1 capsule by mouth once * CITRACAL + D ORAL Take by mouth once daily. [id number]* Take 1 tablet by mouth every * Problem List As Of Date 03/16/2020 Noted Resolved Secondary localized osteoarthrosis, pelvic ovidio*12/05/2005 Primary localized osteoarthrosis, lower leg [M1*12/05/2005 Primary localized osteoarthrosis, hand [M19.049]12/05/2005 Vitamin D deficiency [E55.9] 06/21/2006 Pain in thoracic spine [M54.6] 08/10/2006 Cervicalgia [M54.2] 03/22/2007 More... 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 GERD (gastroesophageal reflux disease) [K21.9] More... 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 Displacement of lumbar intervertebral disc with*01/31/2014 History of dislocation of hip [Z87.828] 07/09/2014 More... Occipital neuralgia of right side [M54.81] 02/24/2016 Iron deficiency anemia [D50.9] 03/02/2017 Current use of proton pump inhibitor [Z79.899] 03/02/2017 NEFTALY positive [R76.8] 03/27/2017 History of colonic polyps [Z86.010] 07/19/2017 Age-related osteoporosis without current pathol*10/16/2017 Encounter for screening for cardiovascular diso*01/15/2018 Encounter for screening for diabetes mellitus [*01/15/2018 COPD (chronic obstructive pulmonary disease) (H*02/05/2018 More... Abnormal stress ECG [R94.39] 02/21/2018 More... 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.*01/13/2020 Encounter Status:Closed by SON GRAYSON DAMIEN on 03/18/20 mr-mri thoracic spine import on 2020-03-12 MR-MRI THORACIC Images were obtained outside of [facility] Normal 03-12-2020 [facility] SPINE IMPORT [id number] Valentine ([id number]) mr-mri lumbar spine import on 2020-03-12 MR-MRI LUMBAR Images were obtained outside of [facility] Normal 03-12-2020 [facility] SPINE IMPORT [id number] Valentine ([id number]) cnpn on 2020-03-12 CNPN Telephone (ORAVON) Normal 03-12-2020 [facility] ARGENIS HO ([id number]) 1940 [facility] Date Time Provider Department ([id number]) 03/12/20 KODAK BERG During your visit today, we recorded the following informati on about you: Tonia Whitaker 03/12/2020 10:19 AM Signed Patient calling regarding the left hip that was operated on in December. Patient advising that the hip is now causing her a lot of pa in. Patient states the pain started about 2 weeks ago and it is a constant pain. Patient states it does not m atter it is when she is laying, walking or sitting. Patient states that walking is what hurts it the most and after walking for about 15 mins Pt has to sit from the pain. Patient states not position makes it better. Patient states she is calling to see what she needs to do. Patient would like to know does she need to be seen and does she need an xray. Patient has not injured it a nd states she has not been seen since her post opt. Patient can be reached at [phone]. Patient states it is ok to leave a detailed Vm if need be. Please advise. Mar Howard PA-C, PA 03/12/2020 5:30 PM Signed Spoke with patient, she has greater troch bursitis, advised aleve BID x 2 weeks, she will call after 2 weeks if it does not improve. Allergies As of Date: 03/12/2020 Noted Allergy Reaction CYMBALTA (DULOXETINE) 01/15/2018 14 - Other: See Comments Comments: Made her feel emotionless. Date Reviewed: 01/10/2020 Reviewed by: Mar Sherman) JAXON Howard - Fully Assessed Reason for Visit: Patient Update [1234] Prescriptions as of 03/12/2020 Sig: OXYBUTYNIN CHLORIDE ER 10 MG * TAKE 1 TABLET BY MOUTH ONCE D * VENLAFAXINE ER 150 MG CAPSULE* Take 150 mg by mouth. PANTOPRAZOLE 40 MG TABLET,DEL* Take 40 mg by mouth. TIZANIDINE 4 MG TABLET Take 1 tab when needed for he* AMOXICILLIN 500 MG TABLET Take 6 tablets by mouth 1 braden* ETODOLAC 400 MG TABLET Take 400 mg by mouth every 8 * ASPIRIN 81 MG TABLET,DELAYED * Take 1 tablet by mouth twice * ASCORBIC ACID (VITAMIN C) 500* Take 1 tablet by mouth twice * BUDESONIDE-FORMOTEROL HFA 160* Inhale 2 Puffs as instructed * ALBUTEROL SULFATE HFA 90 MCG/* INHALE 1 PUFF BY MOUTH EVERY * PANTOPRAZOLE 40 MG TABLET,DEL* Take 1 tablet by mouth daily * ONDANSETRON HCL 4 MG TABLET Take 0.5-1 tablets by mouth e* CHOLECALCIFEROL (VITAMIN D3) * Take 1 capsule by mouth once * CITRACAL + D ORAL Take by mouth once daily. [id number]* Take 1 tablet by mouth every * Problem List As Of Date 03/12/2020 Noted Resolved Secondary localized osteoarthrosis, pelvic ovidio*12/05/2005 Primary localized osteoarthrosis, lower leg [M1*12/05/2005 Primary localized osteoarthrosis, hand [M19.049]12/05/2005 Vitamin D deficiency [E55.9] 06/21/2006 Pain in thoracic spine [M54.6] 08/10/2006 Cervicalgia [M54.2] 03/22/2007 More... 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 GERD (gastroesophageal reflux disease) [K21.9] More... 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 Displacement of lumbar intervertebral disc with*01/31/2014 History of dislocation of hip [Z87.828] 07/09/2014 More... Occipital neuralgia of right side [M54.81] 02/24/2016 Iron deficiency anemia [D50.9] 03/02/2017 Current use of proton pump inhibitor [Z79.899] 03/02/2017 NEFTALY positive [R76.8] 03/27/2017 History of colonic polyps [Z86.010] 07/19/2017 Age-related osteoporosis without current pathol*10/16/2017 Encounter for screening for cardiovascular diso*01/15/2018 Encounter for screening for diabetes mellitus [*01/15/2018 COPD (chronic obstructive pulmonary disease) (H*02/05/2018 More... Abnormal stress ECG [R94.39] 02/21/2018 More... 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 Author Type: Physical Therapist Type: Progress Notes Filed: 03/02/2020 5:08 PM Note Text: Episode Visit Count: 6 Therapist That Will Oversee The Plan Of Care: Ngozi Gordillo Start of Care Date: 01/13/20 Onset Date: 12/10/19 Plan of Care Certification Date: 02/21/20 Next Certification Due Date: 04/03/20 Patient Identified by Name and Date of : Yes REHABILITATION AND SPORTS THERAPY PHYSICAL THERAPY TREATMENT NOTE ASSESSMENT: Argenis Ho demonstrated difficulty with incr ease pain in left hip with walking at start of treatment today. She was i nstructed to continue using cane at current time due to pain. She had a r eduction in left hip pain at end of treatment today. The patient will co ntinue to benefit from ongoing skilled physical therapy for progressio n of core and left lower extremity strength. PLAN FOR NEXT VISIT: Progress weight bearing exercises per patient tolerance SUBJECTIVE: Patient Reason for Visit: Patient reports the le ft hip is hurting. She reports she called her doctor and is hoping to get an x-ray. Pain: Pain Pain Level: 6 Pain Location: Hip - Left Description: Sharp(sharp with weight bearing and no pain at rest) Additional Pain Information : Location 2 Pain Level 2: 8 Pain Location 2: Low Back/Lumbar Spine - Left Description 2: (hurts all the time) Frequency 2: Continuous Post Treatment Pain Post Treatment Pain Level: 4 Post Treatment Pain Location: Hip - Left Post Treatment Symptoms: I am aware of the pain OBJECTIVE MEASURES WITH LEVEL OF FUNCTION: Decrease antalgic gait at end of treatment with use of st ca ne. TREATMENT: Therapeutic Exercise: 1: standing hamstring curls 1 1/2 # B 2x10 2: standing hip abduction with 1 1/2 #2x10 B 3: green rep band seated hamstring curls 2x12 4: sit to stand from [id number] with UE assist 5: seated yellow hip band abduction seated 2x12 6: SAQ 2# 2x12 7: supine hip adductor stretch 20 sec x3 8: seated core dynamic stabilization yellow rep band perturb ation from front 3x12 9: Supine AROM heel slides flexion 2x10 10: supine hip abduction left on sliding board 2x10 11: green step upsforward right and left 1x10 12: Green step left lateral step up 1x10 with assist Skilled Intervention: Patient was educated in proper exercis e technique and purpose for exercises. Skilled judgment was provided in selection of appropriate in terventions. Correct performance of therapeutic exercises was facilitated with verbal and visual cuing. Billing: [facility]: Therapeutic Exercise ([id number]): 1:1 time: 40 minutes (3 units: 38-52 mins) Total time / Length of visit: 40 minutes Nevin Lopez PTRaúl Chinchilla PT cntherapy on 03-02 CNTHERAPY OT/PT/Speech Visit (PTWS) Normal 02-02 [facility] ARGENIS HO ([id number]) 1940 [facility] Date Time Provider Department [facility] 03/02/20 2:45 PM NEVIN LOPEZ (ELECTRIC SCREW DRIVER OPERATOR) PTWS ([id number]) Date Time Provider Department [place] 03/02/2020 2:45 PM [id number], NANCY (ELECTRIC SCREW DRIVER OPERATOR) PTWS [facility] Reason for Visit: Physical Therapy [503] Primary Visit Diagnosis:Status post total replacement of l eft hip [Z96.642] Allergies As of Date: 03/02/2020 Noted Allergy Reaction CYMBALTA (DULOXETINE) 01/15/2018 14 - Other: See Comments Comments: Made her feel emotionless. Date Reviewed: 01/10/2020 Reviewed by: Mar Sherman) JAXON Howard - Fully Assessed Prescriptions as of 03/02/2020 Sig: OXYBUTYNIN CHLORIDE ER 10 MG * TAKE 1 TABLET BY MOUTH ONCE D * VENLAFAXINE ER 150 MG CAPSULE* Take 150 mg by mouth. PANTOPRAZOLE 40 MG TABLET,DEL* Take 40 mg by mouth. TIZANIDINE 4 MG TABLET Take 1 tab when needed for he* AMOXICILLIN 500 MG TABLET Take 6 tablets by mouth 1 braden* ETODOLAC 400 MG TABLET Take 400 mg by mouth every 8 * ASPIRIN 81 MG TABLET,DELAYED * Take 1 tablet by mouth twice * ASCORBIC ACID (VITAMIN C) 500* Take 1 tablet by mouth twice * BUDESONIDE-FORMOTEROL HFA 160* Inhale 2 Puffs as instructed * ALBUTEROL SULFATE HFA 90 MCG/* INHALE 1 PUFF BY MOUTH EVERY * PANTOPRAZOLE 40 MG TABLET,DEL* Take 1 tablet by mouth daily * ONDANSETRON HCL 4 MG TABLET Take 0.5-1 tablets by mouth e* CHOLECALCIFEROL (VITAMIN D3) * Take 1 capsule by mouth once * CITRACAL + D ORAL Take by mouth once daily. MDTORKU-[id number]* Take 1 tablet by mouth every * Progress Notes: Ben Chinchilla, PT 03/02/2020 5:08 PM Signed Episode Visit Count: 6 Therapist That Will Oversee The Plan Of Care: Ngozi Gordillo Start of Care Date: 01/13/20 Onset Date: 12/10/19 Plan of Care Certification Date: 02/21/20 Next Certification Due Date: 04/03/20 Patient Identified by Name and Date of : Yes REHABILITATION AND SPORTS THERAPY PHYSICAL THERAPY TREATMENT NOTE ASSESSMENT: Argenis Ho demonstrated difficul ty with increase pain in left hip with walking at start of treatment today. She was instructed to continue using cane at current time d ue to pain. She had a reduction in left hip pain at end of treatment today. The patient will continue to benefit from ongoing skilled physical therapy for progression of core and left lo wer extremity strength. PLAN FOR NEXT VISIT: Progress weight bearing exercises per patient tolerance SUBJECTIVE: Patient Reason for Visit: Jaxon nguyen reports the left hip is hurting. She reports she called her doctor and is hoping to get an x- ray. Pain: Pain Pain Level: 6 Pain Location: Hip - Left Description: Sharp(sharp with weight bearing and no pain at rest) Additional Pain Information : Location 2 Pain Level 2: 8 Pain Location 2: Low Back/Lumbar Spine - Left Description 2: (hurts all the time) Frequency 2: Continuous Post Treatment Pain Post Treatment Pain Level: 4 Post Treatment Pain Location: Hip - Left Post Treatment Symptoms: I am aware of the pain OBJECTIVE MEASURES WITH LEVEL OF FUNCTION: Decrease antalgic gait at end of treatment with use of st ca ne. TREATMENT: Therapeutic Exercise: 1: standing hamstring curls 1 1/2 # B 2x10 2: standing hip abduction with 1 1/2 #2x10 B 3: green rep band seated hamstring curls 2x12 4: sit to stand from [id number] with UE assist 5: seated yellow hip band abduction seated 2x12 6: SAQ 2# 2x12 7: supine hip adductor stretch 20 sec x3 8: seated core dynamic stabilization yellow rep band p erturbation from front 3x12 9: Supine AROM heel slides flexion 2x10 10: supine hip abduction left on sliding board 2x10 11: green step upsforward right and left 1x10 12: Green step left lateral step up 1x10 with assist Skilled Intervention: Patient was educated in proper exerc ise technique and purpose for exercises. Skilled judgment was provided in selection of appropriate in terventions. Correct performance of therapeutic exercises was facil itated with verbal and visual cuing. Billing: [facility]: Therapeutic Exercise ( [id number]): 1:1 time: 40 minutes (3 units: 38-52 mins) Total time / Length of visit: 40 minutes Nevin Lopez PT-Camila Chinchilla PT Previous Version progress on 2020-02 PROGRESS HNO ID: [id number] Normal 02-21-2020 [facility] Author: Ngozi (Pt) Duy [facility] Service: ? [facility] Author Type: Physical Therapist ([id number]) Type: Progress Notes Filed: 02/21/2020 12:36 PM Note Text: Episode Visit Count: 5 Therapist That Will Oversee The Plan Of Care: Ngozi Gordillo Start of Care Date: 01/13/20 Onset Date: 12/10/19 Plan of Care Certification Date: 02/21/20 Next Certification Due Date: 04/03/20 Patient Identified by Name and Date of : Yes REHABILITATION AND SPORTS THERAPY PHYSICAL THERAPY PROGRESS REPORT PLAN OF CARE UPDATE: Assessment: Argenis Ho exhibits difficulty with strength ,pain in back hip and knee on left. She is also struggling with depression but reports she has adjusted her meds. She is also working on MRI for he r back. She admits that she needs to work on her therapy so she is able to walk better. . She continues to be limited with strength, functio nal status. . She is progressing slower than expected towards her therap y goals as demonstrated by: pain levels, documented subjective informat ion on progress and documented objective information regarding gait , ADL's and strength. She will benefit from continued skilled therapy re quiring progression of strengthening in order to further improve fun ctional status. Functional gains: None at this time Goals for Episode of Care: created on 01/13/20 through 03/09 updated 02/21/2020 [place] in home exercise program./ partially achieved Patient will decrease pain rating by 2 points to meet minima l clinical important difference for numeric pain rating scale./ not ach ieved Patient will increase active ROM of hip abduction to 25 degr ees to allow pt to to improve performance of ADLs./ achieved Patient will Improve Timed Up and Go to 12 seconds to demons trate decreased risk of falling./ partially achieved Increased strength of hip and left leg to perform sit to sta nd with no hands / partially achieved Normal gait./not achieved Reciprocal stair negotiation./ not achieved Patient Goals: Wants to be able to walk one mile without get ting winded. / not achieved . Planned Interventions, Frequency, and Duration: 1x/week, 4 w eeks Total Number of Visits Planned: 4 Patient to be seen for Therapeutic exercise;Gait Training;Patient/Family/Caregiver Education PLAN FOR NEXT VISIT: Will continue to work on strenthening a nd gait SUBJECTIVE: Patient Reason for Visit: Pt notes that she has not been doing well. Reports that she is having alot of pain in left lumbar area. Also reports pain and weakness in left hip and left knee patellar area is painful . Pain: Pain Pain Level: 5 Pain Location: Hip - Left Pain Level 2: 5 Pain Location 2: Low Back/Lumbar Spine - Left;Knee - Left Description 2: Aching Post Treatment Pain Post Treatment Pain Level: No Change Post Treatment Pain Location: Hip - Left Post Treatment Pain Description: Aching PROMIS Scales Higher is Better 06/18/2015 12/01/2015 04/13/2017 GH Physical - Percentile 7 % 2 % 4 % GH Mental - Percentile 19 % 5 % 13 % T-scores: mean of general population = 50. 5 points is clini aleksandar meaningfully difference Percentiles provide an indication of how the patient's score ranks in relation to the general population. Higher percentile elisabet gs indicate better function/quality of life. 50th percentile is the aver age of the general population and indicates half of respondents had a w orse score. T-scores: mean of general population = 50. 5 points is clini aleksandar meaningfully difference Percentiles provide an indication of how the patient's score ranks in relation to the general population. Higher percentile elisabet gs indicate better function/quality of life. 50th percentile is the aver age of the general population and indicates half of respondents had a w orse score. OBJECTIVE MEASURES WITH LEVEL OF FUNCTION: LE AROM L Hip ABduction : 25 Degrees LE Strength L Hip ABduction: 4-/5 Functional Strength Functional Strength: Pt still performed steps one at a time Does not have steps at home. One to enter Trendelenburg: left with gait. Gait Gait Deviations: Left Lower Extremity Gait Deviations Left Lower Extremity: Step length decreased; Stance time decreased;Trendelenburg Stairs: Independent Stairs Device: Cane;Rail Number of Stairs: 4 Functional Performance Test Results Assistive Device: Cane Timed Up and Go (sec): 17 sec TREATMENT: Therapeutic Exercise: 1: standing hamstring curls 1 1/2 # B 2x10 2: standing hip abduction with 1 1/2 #2x10 B 3: green rep band seated hamstring curls 2x12 4: sit to [id number] 5: seated yellow hip band abduction seated 2x10 6: SAQ 1 1/2# 2x10 7: supine hip adductor stretch 20 sec x3 8: seated core dynamic stabilization yellow rep band perturb ation from front 3x10 10: supine hip abduction 2x10 11: green step ups with mild hand assist 1x10 12: gait without st. cane cues for increased step length and decreased IR Skilled Intervention: Patient was educated in proper exercis e technique and purpose for exercises. Reviewed and educated patient on additions/changes for home exercise program Skilled judgment was provided in selection of appropriate in terventions. Correct performance of therapeutic exercises was facilitated with verbal and visual cuing. Patient education as noted. Home Exercise Program Assigned: 1: add yellow rep band hip a bduction Billing: [facility]: Therapeutic Exercise ([id number]): 1:1 time: 40 minutes (3 units: 38-52 mins) Total time / Length of visit: 40 minutes Ngozi Gordillo PT cntherapy on 02-20 CNTHERAPY OT/PT/Speech Visit (PTWS) Normal 08-2 [facility] ARGENIS HO ([id number]) 1940 Clinic Date Time Provider Department [facility] 02/21/20 10:00 AM NGOZI GORDILLO (PT) PTWS ([id number]) Date Time Provider Department [place] 02/21/2020 10:00 AM [id number], LISA (PT) PTWS [facility] Reason for Visit: PT Progress Note [1596] Primary Visit Diagnosis:Status post total replacement of l eft hip [Z96.642] Allergies As of Date: 02/21/2020 Noted Allergy Reaction CYMBALTA (DULOXETINE) 01/15/2018 14 - Other: See Comments Comments: Made her feel emotionless. Date Reviewed: 01/10/2020 Reviewed by: Mar Sherman) JAXON Howard - Fully Assessed Prescriptions as of 02/21/2020 Sig: OXYBUTYNIN CHLORIDE ER 10 MG * TAKE 1 TABLET BY MOUTH ONCE D * VENLAFAXINE ER 150 MG CAPSULE* Take 150 mg by mouth. PANTOPRAZOLE 40 MG TABLET,DEL* Take 40 mg by mouth. TIZANIDINE 4 MG TABLET Take 1 tab when needed for he* AMOXICILLIN 500 MG TABLET Take 6 tablets by mouth 1 braden* ETODOLAC 400 MG TABLET Take 400 mg by mouth every 8 * ASPIRIN 81 MG TABLET,DELAYED * Take 1 tablet by mouth twice * ASCORBIC ACID (VITAMIN C) 500* Take 1 tablet by mouth twice * BUDESONIDE-FORMOTEROL HFA 160* Inhale 2 Puffs as instructed * ALBUTEROL SULFATE HFA 90 MCG/* INHALE 1 PUFF BY MOUTH EVERY * PANTOPRAZOLE 40 MG TABLET,DEL* Take 1 tablet by mouth daily * ONDANSETRON HCL 4 MG TABLET Take 0.5-1 tablets by mouth e* CHOLECALCIFEROL (VITAMIN D3) * Take 1 capsule by mouth once * CITRACAL + D ORAL Take by mouth once daily. [id number]-[id number]-ICIXIGL* Take 1 tablet by mouth every * Progress Notes: Ngozi Gordillo, PT 02/21/2020 12:36 PM Signed Episode Visit Count: 5 Therapist That Will Oversee The Plan Of Care: Ngozi Duy Start of Care Date: 01/13/20 Onset Date: 12/10/19 Plan of Care Certification Date: 02/21/20 Next Certification Due Date: 04/03/20 Patient Identified by Name and Date of : Yes REHABILITATION AND SPORTS THERAPY PHYSICAL THERAPY PROGRESS REPORT PLAN OF CARE UPDATE: Assessment: Argenis Ho exhibits difficulty w ith strength,pain in back hip and knee on left. She is also struggling with depressi on but reports she has adjusted her meds. She is al so working on MRI for her back. She admits that she needs to work on her therapy so she is a ble to walk better. . She continues to be limited with strength, functional status. . S he is progressing slower than expected towards her therapy goals as de monstrated by: pain levels, documented subjective information on progress and documented objective information regarding gait, ADL's and strength. She will benefit from continued skilled therapy requiring progression of strengthening in order to f urther improve functional status. Functional gains: None at this time Goals for Episode of Care: created on 01/13/20 through 03/09 updated 02/21/2020 [place] in home exercise program./ partially achieved Patient will decrease pain rating by 2 points to meet minima l clinical important difference for numeric pain rating scale./ not ach ieved Patient will increase active ROM of hip abduction to 25 degr ees to allow pt to to improve performance of ADLs./ achieved Patient will Improve Timed Up and Go to 12 seconds to demons trate decreased risk of falling./ partially achieved Increased strength of hip and left leg to perform sit to sta nd with no hands / partially achieved Normal gait./not achieved Reciprocal stair negotiation./ not achieved Patient Goals: Wants to be able to walk one mile without getting winded. / not achieved . Planned Interventions, Frequency, and Duration: 1x/week, 4 w eeks Total Number of Visits Planned: 4 Patient to be seen for Therapeutic exercise;Gait Training;Patient/Family/Caregiver Education PLAN FOR NEXT VISIT: Will continue to work on strenthening a nd gait SUBJECTIVE: Patient Reason f or Visit: Pt notes that she has not been doing well. Reports that she is having alot of pain in left lumbar area. Also reports pain and weakness in left hip and left knee patellar area is pain ful . Pain: Pain Pain Level: 5 Pain Location: Hip - Left Pain Level 2: 5 Pain Location 2: Low Back/Lumbar Spine - Left;Knee - Left Description 2: Aching Post Treatment Pain Post Treatment Pain Level: No Change Post Treatment Pain Location: Hip - Left Post Treatment Pain Description: Aching PROMIS Scales Higher is Better 06/18/2015 12/01/2015 04/13/2017 GH Physical - Percentile 7 % 2 % 4 % GH Mental - Percentile 19 % 5 % 13 % T-scores: mean of general population = 50. 5 points is clini aleksandar meaningfully difference Percentiles provide an indication of how the patient's score ranks in relation to the general population. Higher percentile rankings indica te better function/quality of life. 50th percentile is the average of the general population and indicates half of respondents had a worse sco re. T-scores: mean of general population = 50. 5 points is clini aleksandar meaningfully difference Percentiles provide an indication of how the patient's score ranks in relation to the general population. Higher percentile rankings indica te better function/quality of life. 50th percentile is the average of the general population and indicates half of respondents had a worse sco re. OBJECTIVE MEASURES WITH LEVEL OF FUNCTION: LE AROM L Hip ABduction : 25 Degrees LE Strength L Hip ABduction: 4-/5 Functional Strength Functional Strength: Pt still performed steps one at a time Does not have steps at home. One to enter Trendelenburg: left with gait. Gait Gait Deviations: Left Lower Extremity Gait Deviations Left Lower Extremity: Step length decreased; Stance time decreased;Trendelenburg Stairs: Independent Stairs Device: Cane;Rail Number of Stairs: 4 Functional Performance Test Results Assistive Device: Cane Timed Up and Go (sec): 17 sec TREATMENT: Therapeutic Exercise: 1: standing hamstring curls 1 07/04 # B 2x10 2: standing hip abduction with 1 1/2 #2x10 B 3: green rep band seated hamstring curls 2x12 4: sit to [id number] 5: seated yellow hip band abduction seated 2x10 6: SAQ 1 1/2# 2x10 7: supine hip adductor stretch 20 sec x3 8: seated core dynamic stabilization yellow rep band p erturbation from front 3x10 10: supine hip abduction 2x10 11: green step ups with mild hand assist 1x10 12: gait without st. cane cues for increased step length and decreased IR Skilled Intervention: Patient was educated in proper exerc ise technique and purpose for exercises. Reviewed and educated patient on additions/changes for home exercise program Skilled judgment was provided in selection of appropriate in terventions. Correct performance of therapeutic exercises was facil itated with verbal and visual cuing. Patient education as noted. Home Exercise Program Assigned: 1: add yellow rep band hip a bduction Billing: [facility]: Therapeutic Exercise ( [id number]): 1:1 time: 40 minutes (3 units: 38-52 mins) Total time / Length of visit: 40 minutes Ngozi Gordillo PT progress on 2020-02 PROGRESS HNO ID: [id number] Normal 02-14-2020 [facility] Author: Lito Azul MD [facility] Service: ? ([id number]) Author Type: Physician Type: Progress Notes Filed: 02/26/2020 1:58 PM Note Text: [facility] [address], [address] [place], [place] [address] Dionisio Gallego PA-C [address] [facility] [id number] PCP: No primary care provider on file. CC: Headache HPI: Past medical history significant for depression Headaches for the past for the past several years They occur once a week Right occipital Pain can last hours Aching pain Some nausea , occasional vomiting No photophobia and phonophobia Nothing brings the pain on Excedrin helps with these headaches CT brain in 2016 was normal Current Medications: Current Outpatient Medications Medication Sig - oxybutynin ER (DITROPAN XL) 10 mg 24 hr tablet TAKE 1 TABL ET BY MOUTH ONCE DAILY AT SUPPER TIME - venlafaxine ER (EFFEXOR XR) 150 mg 24 hr capsule Take 150 mg by mouth. - pantoprazole DR (PROTONIX) 40 mg tablet Take 40 mg by mout h. - etodolac (LODINE) 400 mg tablet Take 400 mg by mouth every 8 hours. - pantoprazole DR (PROTONIX) 40 mg tablet Take 1 tablet by m outh daily before dinner. - ondansetron (ZOFRAN) 4 mg tablet Take 0.5-1 tablets by parul th every 8 hours as needed for Nausea/Vomiting. - Cholecalciferol, Vitamin D3, 2,000 unit cap Take 1 capsule by mouth once daily. - Amoxicillin 500 mg tablet Take 6 tablets by mouth 1 hour b efore dental procedure and 2 tablets by mouth 6 hours after. - aspirin, enteric coated (ECOTRIN LOW STRENGTH) 81 mg EC ta blet Take 1 tablet by mouth twice daily for 28 days. - ascorbic acid, vitamin C, (VITAMIN C) 500 mg tablet Take 1 tablet by mouth twice daily with meals. - budesonide-formoterol (SYMBICORT) 160-4.5 mcg/actuation in haler Inhale 2 Puffs as instructed twice daily. - albuterol HFA (PROVENTIL HFA, VENTOLIN HFA) 90 mcg/actuati on inhaler INHALE 1 PUFF BY MOUTH EVERY 4 HOURS NEEDED AND 15 MINUTE S PRIOR TO ACTIVITY - CALCIUM CITRATE/VITAMIN D3 (CITRACAL + D ORAL) Take by parul th once daily. - Bgciulz-Wfsucipekebwp-Lchghltn (EXCEDRIN MIGRAINE) 250-250 -65 mg per tablet Take 1 tablet by mouth every 6 hours as needed (migra ine). No current facility-administered medications for this visit. Allergies: ALLERGIES Allergen Reactions - Cymbalta [Duloxetin* Other: See Comments Made her feel emotionless. Family History: FAMILY HISTORY Problem Relation Age of Onset - Cancer Father - Coronary Artery Disease Father Early 70's CABG x5 - Coronary Artery Disease Brother aged 52, [place] - Diabetes Brother Type II - No Family History Other Colon Cancer/Polyps Past Medical History/Past Surgical History PAST MEDICAL HISTORY Diagnosis Date - Abnormal stress test Cardiac cath was negative - Age-related osteoporosis without current pathological frac ture 10/16/2017 - Brachial neuritis or radiculitis NOS 05/13/2010 - Bucket handle tear of lateral meniscus(717.41) 12/05/2005 - Cervical arthritis - Cervical spondylosis without myelopathy 04/13/2007 - Cervicalgia 03/22/2007 - Chronic obstructive pulmonary disease (HCC) 02/05/2018 - Compression fracture of lumbar spine, non-traumatic (HCC) 01/31/2014 - Congenital spondylolisthesis 04/13/2007 - Depressive disorder, not elsewhere classified - Displacement of lumbar intervertebral disc without myelopa thy 01/31/2014 - Ex-smoker - GERD (gastroesophageal reflux disease) - Headache 07/17/2012 - History of dislocation of hip 07/09/2014 right - Lumbago 07/28/2009 - Lumbar spinal stenosis - Lumbar spondylosis 07/28/2009 - Microscopic hematuria 08/20/2010 - Muscle weakness (generalized) 09/16/2008 - 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 - COLONOSCOP W/ OR W/O [facility] SPEC Colonoscopy - CYSTO.PANENDO Cystoscopy - KNEE SCOPE,DIAGNOSTIC 06/2010 Arthroscopy, knee - PAST SURGICAL HISTORY OF R THR x 3 - PAST SURGICAL HISTORY OF Bilat TKR - PAST SURGICAL HISTORY OF L Hip pinning (later removed) - PAST SURGICAL HISTORY OF Heart Cath - PAST SURGICAL HISTORY OF Dilation of left ureter - PAST SURGICAL HISTORY OF 05/13 L knee revision - PAST SURGICAL HISTORY OF 2014 R THR - [place] - PAST SURGICAL HISTORY OF Right 07/2014 total hip replacement Social History: Social History Tobacco Use - Smoking status: Former Smoker Packs/day: 0.15 Years: 1.00 Pack years: 0.15 Types: Cigarettes Quit date: 06/29/2005 Years since quittin.6 - Smokeless tobacco: Never Used Substance Use Topics - Alcohol use: Yes Frequency: 4 or more times a week Drinks per session: 1 or 2 Binge frequency: Never - Drug use: No Use of nonprescribed meds or street drugs No Caffeine use:No ROS: REVIEW OF SYSTEMS GENERAL: No weight loss, malaise or fevers. HEENT: No changes in hearing or vision, no nose bleeds or ot her nasal problems NECK: Negative for lumps, goiter, pain and significant neck swelling RESPIRATORY: Negative for cough, hemoptysis, wheezing or payton rtness of breath CARDIOVASCULAR: Negative for chest pain, leg swelling or pal pitations. GI: no nausea, vomiting, or diarrhea : No history of dysuria, frequency or incontinence. MUSCULOSKELETAL: Negative for joint pain or swelling, back p ain or muscle pain. SKIN: Negative for lesions, rash, and itching. PSYCH: Negative for depression / anxiety and sleep disturban ce HEMATOLOGY/LYMPHOLOGY: Negative for prolonged bleeding, brui sing easily or swollen nodes. ENDOCRINE: Negative for cold or heat intolerance, polyuria, polydipsia and goiter. NEURO: Headache Physical Exam: Vital Signs: BP 124/51 (BP Site: Left Arm, BP Position: Sitting, BP Cuff Size: Regular Adult) Pulse 76 General: Well appearing HEENT: Normocephalic/atraumatic Musculoskeletal: No gross joint deformities. Neurological:Mental Status: Alert,. Affect is normal. Speech is normal in rate, volume and articulation. Attention span and concentrat ion are good. Cranial Nerves: II -XII intact Motor: Normal muscle tone and bulk. No evidence of atrophy o r fasciculations. Strength is normal, 5/5. Tremor: absent. Cerebellar exam: Ataxia absent Gait examination: Normal Impression: Right sided Occipital neuralgia Cervicalgia She doesn't want to be on daily meds Plan : Take Zanaflex 4 mg when needed for headaches Lito Azul MD Staff February 14, 2020 cnov on 2020-02-14 CNOV Office Visit (ALEXGERA) Normal 02-14-20 20 [facility] Nona ARGENIS HO ([id number]) 1940 F [facility] Date Time Provider Department ([id number]) 02/14/20 1:00 PM LITO AZUL During your visit today, we recorded the following informati on about you: Pulse Blood pressure 76/minute 124/51 Lito Azul MD, 02/26/2020 1:58 PM Signed [facility] [address] [place], [place] [address] Dionisio Gallego PA-C [address] [facility] [id number] PCP: No primary care provider on file. CC: Headache HPI: Past medical history significant for depression Headaches for the past for the past several years They occur once a week Right occipital Pain can last hours Aching pain Some nausea , occasional vomiting No photophobia and phonophobia Nothing brings the pain on Excedrin helps with these headaches CT brain in 2016 was normal Current Medications: Current Outpatient Medications Medication Sig - oxybutynin ER (DITROPAN XL) 10 mg 24 hr tablet TAKE 1 TABLET BY MOUTH ONCE DAILY AT SUPPER TIME - venlafaxine ER (EFFEXOR XR) 150 mg 24 hr capsule Take 150 mg by mouth. - pantoprazole DR (PROTONIX) 40 mg tablet Take 40 mg by mout h. - etodolac (LODINE) 400 mg tablet Take 400 mg by mouth every 8 hours. - pantoprazole DR (PROTONIX) 40 mg tablet Take 1 tablet by mouth daily before dinner. - ondansetron (ZOFRAN) 4 mg tablet Take 0.5-1 tablets by mouth every 8 hours as needed for Nausea/Vomiting. - Cholecalciferol, Vitamin D3, 2,000 unit cap Take 1 capsule by mouth once daily. - Amoxicillin 500 mg tablet Take 6 tablets by mouth 1 hour b efore dental procedure and 2 tablets by mouth 6 hours after. - aspirin, enteric coated (ECOTRIN LOW S TRENGTH) 81 mg EC tablet Take 1 tablet by mouth twice daily for 28 days. - ascorbic acid, vitamin C, (VITAMIN C) 500 mg tablet Take 1 tablet by mouth twice daily with meals. - budesonide-formoterol (SYMBICORT) 160-4.5 mcg/actuation in haler Inhale 2 Puffs as instructed twice daily. - albuterol HFA (PROVENTIL H FA, VENTOLIN HFA) 90 mcg/actuation inhaler INHALE 1 PUFF BY MOUTH EVERY 4 HOURS NEEDED AND 15 MINUTES PRIOR T O ACTIVITY - CALCIUM CITRATE/VITAMIN D3 (CITRACAL + D ORAL) Take by parul th once daily. - Jcsaxtg-Phastsxajaiqp-Yhtxjoho (EXCEDRIN MIGRA INE) 250-250-65 mg per tablet Take 1 tablet by mouth every 6 hours as needed (migraine). No current facility-administered medications for this visit. Allergies: ALLERGIES Allergen Reactions - Cymbalta [Duloxetin* Other: See Comments Made her feel emotionless. Family History: FAMILY HISTORY Problem Relation Age of Onset - Cancer Father - Coronary Artery Disease Father Early 70's CABG x5 - Coronary Artery Disease Brother aged 52, [place] - Diabetes Brother Type II - No Family History Other Colon Cancer/Polyps Past Medical History/Past Surgical History PAST MEDICAL HISTORY Diagnosis Date - Abnormal stress test Cardiac cath was negative - Age-related osteoporosis without current pathological frac ture 10/16/2017 - Brachial neuritis or radiculitis NOS 05/13/2010 - Bucket handle tear of lateral meniscus(717.41) 12/05/2005 - Cervical arthritis - Cervical spondylosis without myelopathy 04/13/2007 - Cervicalgia 03/22/2007 - Chronic obstructive pulmonary disease (HCC) 02/05/2018 - Compression fracture of lumbar spine, non-traumatic (HCC) 01/31/2014 - Congenital spondylolisthesis 04/13/2007 - Depressive disorder, not elsewhere classified - Displacement of lumbar intervertebral disc without myelopa thy 01/31/2014 - Ex-smoker - GERD (gastroesophageal reflux disease) - Headache 07/17/2012 - History of dislocation of hip 07/09/2014 right - Lumbago 07/28/2009 - Lumbar spinal stenosis - Lumbar spondylosis 07/28/2009 - Microscopic hematuria 08/20/2010 - Muscle weakness (generalized) 09/16/2008 - 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 - COLONOSCOP W/ OR W/O [facility] SPEC Colonoscopy - CYSTO.PANENDO Cystoscopy - KNEE SCOPE,DIAGNOSTIC 06/2010 Arthroscopy, knee - PAST SURGICAL HISTORY OF R THR x 3 - PAST SURGICAL HISTORY OF Bilat TKR - PAST SURGICAL HISTORY OF L Hip pinning (later removed) - PAST SURGICAL HISTORY OF Heart Cath - PAST SURGICAL HISTORY OF Dilation of left ureter - PAST SURGICAL HISTORY OF 05/13 L knee revision - PAST SURGICAL HISTORY OF 2014 R THR - Brandi - PAST SURGICAL HISTORY OF Right 07/2014 total hip replacement Social History: Social History Tobacco Use - Smoking status: Former Smoker Packs/day: 0.15 Years: 1.00 Pack years: 0.15 Types: Cigarettes Quit date: 06/29/2005 Years since quittin.6 - Smokeless tobacco: Never Used Substance Use Topics - Alcohol use: Yes Frequency: 4 or more times a week Drinks per session: 1 or 2 Binge frequency: Never - Drug use: No Use of nonprescribed meds or street drugs No Caffeine use:No ROS: REVIEW OF SYSTEMS GENERAL: No weight loss, malaise or fevers. HEENT: No changes in hearing or vision, no nose bleeds or other nasal problems NECK: Negative for lumps, goiter, pain and significant neck swelling RESPIRATORY: Negative for cough, hemoptysis, wheezing or shortness of breath CARDIOVASCULAR: Negative for chest pain, leg swelling or pal pitations. GI: no nausea, vomiting, or diarrhea : No history of dysuria, frequency or incontinence. MUSCULOSKELETAL: Negative fo r joint pain or swelling, back pain or muscle pain. SKIN: Negative for lesions, rash, and itching. PSYCH: Negative for depression / anxiety and sleep disturban ce HEMATOLOGY/LYMPHOLOGY: Negative for prolonged bleeding, brui sing easily or swollen nodes. ENDOCRINE: Negative for cold or heat intolerance, polyuria, polydipsia and goiter. NEURO: Headache Physical Exam: Vital Signs: BP 124/51 (BP Site: Left Arm, BP Position: Sitting, BP Cuff Size: Regular Adult) Pulse 76 General: Well appearing HEENT: Normocephalic/atraumatic Musculoskeletal: No gross joint deformities. Neurological:Mental Status: Alert,. Affect is normal. Speech is normal in rate, volume and articulation. Attention span and concentration ar e good. Cranial Nerves: II -XII intact Motor: Normal muscle tone and bulk. No evidence of atrophy or fasciculations. Strength is normal, 5/5. Tremor: absent. Cerebellar exam: Ataxia absent Gait examination: Normal Impression: Right sided Occipital neuralgia Cervicalgia She doesn't want to be on daily meds Plan : Take Zanaflex 4 mg when needed for headaches Lito Azul MD Staff February 14, 2020 Lito Azul MD, MD 02/14/2020 1:13 PM Signed Take Zanaflex 4 mg when needed for headaches Lito Azul MD Staff February 14, 2020 Referring Provider: DIONISIO GALLEGO (AIDA) [[id number]] Allergies As of Date: 02/14/2020 Noted Allergy Reaction CYMBALTA (DULOXETINE) 01/15/2018 14 - Other: See Comments Comments: Made her feel emotionless. Date Reviewed: 01/10/2020 Reviewed by: JAXON Pillai (Pa) - Fully Assessed Reason for Visit: New Patient Evaluation [154] Headaches [3461] Visit Diagnosis:Occipital neuralgia of right side [M54.81] Order(s):tiZANidine (ZANAFLEX) 4 mg tabl etTake 1 tab when needed for headaches , up to one dailyDisp: 30 tabletRfl: 11 Prescriptions as of 02/14/2020 Sig: OXYBUTYNIN CHLORIDE ER 10 MG * TAKE 1 TABLET BY MOUTH ONCE D * VENLAFAXINE ER 150 MG CAPSULE* Take 150 mg by mouth. PANTOPRAZOLE 40 MG TABLET,DEL* Take 40 mg by mouth. ETODOLAC 400 MG TABLET Take 400 mg by mouth every 8 * PANTOPRAZOLE 40 MG TABLET,DEL* Take 1 tablet by mouth daily * ONDANSETRON HCL 4 MG TABLET Take 0.5-1 tablets by mouth e* CHOLECALCIFEROL (VITAMIN D3) * Take 1 capsule by mouth once * TIZANIDINE 4 MG TABLET Take 1 tab when needed for he* AMOXICILLIN 500 MG TABLET Take 6 tablets by mouth 1 braden* ASPIRIN 81 MG TABLET,DELAYED * Take 1 tablet by mouth twice * ASCORBIC ACID (VITAMIN C) 500* Take 1 tablet by mouth twice * BUDESONIDE-FORMOTEROL HFA 160* Inhale 2 Puffs as instructed * ALBUTEROL SULFATE HFA 90 MCG/* INHALE 1 PUFF BY MOUTH EVERY * CITRACAL + D ORAL Take by mouth once daily. [id number]* Take 1 tablet by mouth every * Problem List As Of Date 02/14/2020 Noted Resolved Secondary localized osteoarthrosis, pelvic ovidio*12/05/2005 Primary localized osteoarthrosis, lower leg [M1*12/05/2005 Primary localized osteoarthrosis, hand [M19.049]12/05/2005 Vitamin D deficiency [E55.9] 06/21/2006 Pain in thoracic spine [M54.6] 08/10/2006 Cervicalgia [M54.2] 03/22/2007 More... 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 GERD (gastroesophageal reflux disease) [K21.9] More... 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 Displacement of lumbar intervertebral disc with*01/31/2014 History of dislocation of hip [Z87.828] 07/09/2014 More... Occipital neuralgia of right side [M54.81] 02/24/2016 Iron deficiency anemia [D50.9] 03/02/2017 Current use of proton pump inhibitor [Z79.899] 03/02/2017 NEFTALY positive [R76.8] 03/27/2017 History of colonic polyps [Z86.010] 07/19/2017 Age-related osteoporosis without current pathol*10/16/2017 Encounter for screening for cardiovascular diso*01/15/2018 Encounter for screening for diabetes mellitus [*01/15/2018 COPD (chronic obstructive pulmonary disease) (H*02/05/2018 More... Abnormal stress ECG [R94.39] 02/21/2018 More... 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 Author Type: Physical Therapist Type: Progress Notes Filed: 02/03/2020 9:29 AM Note Text: Episode Visit Count: 4 Therapist That Will Oversee The Plan Of Care: Ngozi Gordillo Start of Care Date: 01/13/20 Onset Date: 12/10/19 Plan of Care Certification Date: 01/13/20 Next Certification Due Date: 03/09/20 Patient Identified by Name and Date of : Yes REHABILITATION AND SPORTS THERAPY PHYSICAL THERAPY TREATMENT NOTE ASSESSMENT: Argenis Ho demonstrated improvements in gait pattern but remarks that hip is really sore. Weakness persists but getti ng better. Pt also with left low back pain since before surgery that has n ot improved. The patient will continue to benefit from ongoing skilled ph ysical therapy for progression of strengthening PLAN FOR NEXT VISIT: Progress to blue step ups SUBJECTIVE: Patient Reason for Visit: Pt notes that she note s that if she does not use the cane she limps alot and her hip gets really sore. She is using it all the time. Pain: Pain Pain Level: 5 Pain Location: Hip - Left Description: Aching Frequency: Intermittent Additional Pain Information : Location 2 Pain Level 2: 8 Pain Location 2: Low Back/Lumbar Spine - Left Description 2: Aching Post Treatment Pain Post Treatment Pain Level: 6 Post Treatment Pain Location: Hip - Left Post Treatment Pain Description: Aching OBJECTIVE MEASURES WITH LEVEL OF FUNCTION: LE AROM L Hip ABduction : 30 Degrees Gait Gait Deviations Left Lower Extremity: ( decreased trendenlbu rg ) TREATMENT: Therapeutic Exercise: 1: standing hamstring curls 1 1/2 # B 2x10 2: standing hip abduction with 1 1/2 #2x10 B 3: green rep band seated hamstring curls 2x12 4: sit to [id number] deferred 5: heel slides with cues for form to prevent IR 2x10 6: SAQ 1 1/2# 2x10 7: supine hip adductor stretch 20 sec x3 8: hooklying TA / core tightening 1x10 9: Hooklying TA with arm lifts 1x10 10: supine hip abduction 2x10 11: green step ups with mild hand assist 2x10 12: gait without st. cane cues for increased step length and decreased IR Skilled Intervention: Patient was educated in proper exercis e technique and purpose for exercises. Reviewed and educated patient on additions/changes for home exercise program Skilled judgment was provided in selection of appropriate in terventions. Correct performance of therapeutic exercises was facilitated with verbal and visual cuing. Patient education as noted. Home Exercise Program Assigned: 1: increase reps of home exs B Billing: [facility]: Therapeutic Exercise ([id number]): 1:1 time: 30 minutes (2 units: 23-37 mins) Total time / Length of visit: 30 minutes Ngozi Gordillo PT cntherapy on 02-02 CNTHERAPY OT/PT/Speech Visit (PTWS) Normal [facility] GEORGIAARGENIS ([id number]) 1940 [facility] Date Time Provider Department [facility] 02/03/20 8:45 AM NGOZI GORDILLO (PT) PTWS ([id number]) Date Time Provider Department [place] 02/03/2020 8:45 AM [id number], LISA (PT) PTWS [facility] Reason for Visit: Physical Therapy [503] Primary Visit Diagnosis:Status post total replacement of l eft hip [Z96.642] Allergies As of Date: 02/03/2020 Noted Allergy Reaction CYMBALTA (DULOXETINE) 01/15/2018 14 - Other: See Comments Comments: Made her feel emotionless. Date Reviewed: 01/10/2020 Reviewed by: Mar Sherman) JAXON Howard - Fully Assessed Prescriptions as of 02/03/2020 Sig: AMOXICILLIN 500 MG TABLET Take 6 tablets by mouth 1 braden* ETODOLAC 400 MG TABLET Take 400 mg by mouth every 8 * ASPIRIN 81 MG TABLET,DELAYED * Take 1 tablet by mouth twice * ASCORBIC ACID (VITAMIN C) 500* Take 1 tablet by mouth twice * BUDESONIDE-FORMOTEROL HFA 160* Inhale 2 Puffs as instructed * ALBUTEROL SULFATE HFA 90 MCG/* INHALE 1 PUFF BY MOUTH EVERY * PANTOPRAZOLE 40 MG TABLET,DEL* Take 1 tablet by mouth daily * ONDANSETRON HCL 4 MG TABLET Take 0.5-1 tablets by mouth e* CHOLECALCIFEROL (VITAMIN D3) * Take 1 capsule by mouth once * CITRACAL + D ORAL Take by mouth once daily. [id number]* Take 1 tablet by mouth every * Progress Notes: Ngozi Gordillo, PT 02/03/2020 9:29 AM Signed Episode Visit Count: 4 Therapist That Will Oversee The Plan Of Care: Ngozi Gordillo Start of Care Date: 01/13/20 Onset Date: 12/10/19 Plan of Care Certification Date: 01/13/20 Next Certification Due Date: 03/09/20 Patient Identified by Name and Date of : Yes REHABILITATION AND SPORTS THERAPY PHYSICAL THERAPY TREATMENT NOTE ASSESSMENT: Argenis apple emonstrated improvements in gait pattern but remarks that hip is really sore. Christopher thomas persists but getting better. Pt also with left low back pain since before surgery that has not improved. Th e patient will continue to benefit from ongoing skilled sports physical therapist apy for progression of strengthening PLAN FOR NEXT VISIT: Progress to blue step ups SUBJECTIVE: Patient Reason for Visit: Pt notes that she notes that if she does not use the cane she limps alot and her hip gets really sore. She is using it all the time. Pain: Pain Pain Level: 5 Pain Location: Hip - Left Description: Aching Frequency: Intermittent Additional Pain Information : Location 2 Pain Level 2: 8 Pain Location 2: Low Back/Lumbar Spine - Left Description 2: Aching Post Treatment Pain Post Treatment Pain Level: 6 Post Treatment Pain Location: Hip - Left Post Treatment Pain Description: Aching OBJECTIVE MEASURES WITH LEVEL OF FUNCTION: LE AROM L Hip ABduction : 30 Degrees Gait Gait Deviations Left Lower Extremity: ( decreased trendenlbu rg ) TREATMENT: Therapeutic Exercise: 1: standing hamstring curls 1 1/2 # B 2x10 2: standing hip abduction with 1 1/2 #2x10 B 3: green rep band seated hamstring curls 2x12 4: sit to [id number] deferred 5: heel slides with cues for form to prevent IR 2x10 6: SAQ 1 1/2# 2x10 7: supine hip adductor stretch 20 sec x3 8: hooklying TA / core tightening 1x10 9: Hooklying TA with arm lifts 1x10 10: supine hip abduction 2x10 11: green step ups with mild hand assist 2x10 12: gait without st. cane cues for increased step length and decreased IR Skilled Intervention: Patient was educated in proper exerc ise technique and purpose for exercises. Reviewed and educated patient on additions/changes for home exercise program Skilled judgment was provided in selection of appropriate in terventions. Correct performance of therapeutic exercises was facil itated with verbal and visual cuing. Patient education as noted. Home Exercise Program Assigned: 1: increase reps of home exs B Billing: [facility]: Therapeutic Exercise ( [id number]): 1:1 time: 30 minutes (2 units: 23-37 mins) Total time / Length of visit: 30 minutes Ngozi Gordillo PT progress on 2020-01 PROGRESS HNO ID: [id number] Normal 01-23-2020 [facility] Author: Ngozi TapiaPtLeopoldo Bass ([id number]) Service: ? Author Type: Physical Therapist Type: Progress Notes Filed: 01/23/2020 3:46 PM Note Text: Episode Visit Count: 3 Therapist That Will Oversee The Plan Of Care: Ngozi Gordillo Start of Care Date: 01/13/20 Onset Date: 12/10/19 Plan of Care Certification Date: 01/13/20 Next Certification Due Date: 03/09/20 Patient Identified by Name and Date of : Yes REHABILITATION AND SPORTS THERAPY PHYSICAL THERAPY TREATMENT NOTE ASSESSMENT: Argenis Ho demonstrated improvements in ease of using cane and general mobility. Pt still has trouble controlling left hip to avoid IR with supine activities. The patient will continue to bene fit from ongoing skilled physical therapy for progression of strength ening PLAN FOR NEXT VISIT: Add green step ups left SUBJECTIVE: Patient Reason for Visit: Pt notes that her hip is feeling better comfortable . Uses her walker when she gets tired. Rhodes s some discomfort along inside of groin area with lying down at clifford es Pain: Pain Pain Level: 0 Pain Location: Hip - Left Description: Aching Frequency: Intermittent Post Treatment Pain Post Treatment Pain Level: No Change Post Treatment Pain Location: Hip - Left Post Treatment Pain Description: Aching OBJECTIVE MEASURES WITH LEVEL OF FUNCTION: discomfort medially in groin with end range abduction and di scomfort with active adduction back to neutral TREATMENT: Therapeutic Exercise: 1: standing hamstring curls 1 # left 0# 2x10 2: standing hip abduction with 1 #2x10 left and 0# 2x10 righ t 3: green rep band seated hamstring curls 2x10 4: sit to [id number] 5: heel slides with cues for form to prevent IR 2x10 6: SAQ 1# 3x10 7: supine hip adductor stretch 20 sec x3 8: hooklying TA / core tightening 1x10 Skilled Intervention: Patient was educated in proper exercis e technique and purpose for exercises. Reviewed and educated patient on additions/changes for home exercise program Skilled judgment was provided in selection of appropriate in terventions. Provided written instruction for home exercise program to fa cilitate proper performance and compliance. Correct performance of therapeutic exercises was facilitated with verbal and visual cuing. Patient education as noted. Home Exercise Program Assigned: 1: add supine hip adductor s tretch Billing: [facility]: Therapeutic Exercise ([id number]): 1:1 time: 35 minutes (2 units: 23-37 mins) Total time / Length of visit: 35 minutes Ngozi Gordillo PT cntherapy on 01-22 CNTHERAPY OT/PT/Speech Visit (PTWS) Normal 07-2 [facility] ARGENIS HO ([id number]) 1940 [facility] Date Time Provider Department [facility] 01/23/20 2:45 PM NGOZI GORDILLO (PT) PTWS ([id number]) Date Time Provider Department [place] 01/23/2020 2:45 PM [id number], LISA (PT) PTWS [facility] Reason for Visit: Physical Therapy [503] Primary Visit Diagnosis:Status post total replacement of l eft hip [Z96.642] Allergies As of Date: 01/23/2020 Noted Allergy Reaction CYMBALTA (DULOXETINE) 01/15/2018 14 - Other: See Comments Comments: Made her feel emotionless. Date Reviewed: 01/10/2020 Reviewed by: Mar Sherman) JAXON Howard - Fully Assessed Prescriptions as of 01/23/2020 Sig: AMOXICILLIN 500 MG TABLET Take 6 tablets by mouth 1 braden* ETODOLAC 400 MG TABLET Take 400 mg by mouth every 8 * ASPIRIN 81 MG TABLET,DELAYED * Take 1 tablet by mouth twice * ASCORBIC ACID (VITAMIN C) 500* Take 1 tablet by mouth twice * BUDESONIDE-FORMOTEROL HFA 160* Inhale 2 Puffs as instructed * ALBUTEROL SULFATE HFA 90 MCG/* INHALE 1 PUFF BY MOUTH EVERY * PANTOPRAZOLE 40 MG TABLET,DEL* Take 1 tablet by mouth daily * ONDANSETRON HCL 4 MG TABLET Take 0.5-1 tablets by mouth e* CHOLECALCIFEROL (VITAMIN D3) * Take 1 capsule by mouth once * CITRACAL + D ORAL Take by mouth once daily. [id number]* Take 1 tablet by mouth every * Progress Notes: Ngozi Gordillo, PT 01/23/2020 3:46 PM Signed Episode Visit Count: 3 Therapist That Will Oversee The Plan Of Care: Ngozi Gordillo Start of Care Date: 01/13/20 Onset Date: 12/10/19 Plan of Care Certification Date: 01/13/20 Next Certification Due Date: 03/09/20 Patient Identified by Name and Date of : Yes REHABILITATION AND SPORTS THERAPY PHYSICAL THERAPY TREATMENT NOTE ASSESSMENT: Argenis Ho demonstrated improvements in ease of using cane and general mobility. Pt still has trouble controlling lef t hip to avoid IR with supine activities. The patient will continue to benefi andrew from ongoing skilled physical therapy for progression of strengthening PLAN FOR NEXT VISIT: Add green step ups left SUBJECTIVE: Patient Reason for Visit: Pt notes t hat her hip is feeling better comfortable . Uses her walker when she gets tired. Has some discomfort along inside of groin area with lying down at times Pain: Pain Pain Level: 0 Pain Location: Hip - Left Description: Aching Frequency: Intermittent Post Treatment Pain Post Treatment Pain Level: No Change Post Treatment Pain Location: Hip - Left Post Treatment Pain Description: Aching OBJECTIVE MEASURES WITH LEVEL OF FUNCTION: discomfort medially in groin with end range abduction and di scomfort with active adduction back to neutral TREATMENT: Therapeutic Exercise: 1: standing hamstring curls 1 # left 0# 2x10 2: standing hip abduction with 1 #2x10 left and 0# 2x10 righ t 3: green rep band seated hamstring curls 2x10 4: sit to [id number] 5: heel slides with cues for form to prevent IR 2x10 6: SAQ 1# 3x10 7: supine hip adductor stretch 20 sec x3 8: hooklying TA / core tightening 1x10 Skilled Intervention: Patient was educated in proper exerc ise technique and purpose for exercises. Reviewed and educated patient on additions/changes for home exercise program Skilled judgment was provided in selection of appropriate in terventions. Provided written instruction for home exercise program to facilitate proper performance and compliance. Correct performance of therapeutic exercises was facil itated with verbal and visual cuing. Patient education as noted. Home Exercise Program Assigned: 1: add supine hip adductor s tretch Billing: [facility]: Therapeutic Exercise ( [id number]): 1:1 time: 35 minutes (2 units: 23-37 mins) Total time / Length of visit: 35 minutes Ngozi Gordillo PT progress on 2020-01 PROGRESS HNO ID: [id number] Normal 01-16-2020 [facility] Author: Ngozi TapiaPtLeopoldo Bass ([id number]) Service: ? Author Type: Physical Therapist Type: Progress Notes Filed: 01/16/2020 5:11 PM Note Text: Episode Visit Count: 2 Therapist That Will Oversee The Plan Of Care: Ngozi Gordillo Start of Care Date: 01/13/20 Onset Date: 12/10/19 Plan of Care Certification Date: 01/13/20 Next Certification Due Date: 03/09/20 Patient Identified by Name and Date of : Yes REHABILITATION AND SPORTS THERAPY PHYSICAL THERAPY TREATMENT NOTE ASSESSMENT: Argenis Ho demonstrated improvements in gait pattern with cane as well as with exs. The patient will continue to benef it from ongoing skilled physical therapy for progression of strength ening and gait pattern PLAN FOR NEXT VISIT: Continue to advance strenthening as tolerated SUBJECTIVE: Patient Reason for Visit: Pt notes that she is f eeling better from what she was feeling the other day. Hip is a little sor e. Note that she has been doing more cleaning type things around the hous e and using her cane Pain: Pain Pain Level: 5 Pain Location: Hip - Left Description: Aching Frequency: Intermittent Post Treatment Pain Post Treatment Pain Level: No Change Post Treatment Pain Location: Hip - Left Post Treatment Pain Description: Aching OBJECTIVE MEASURES WITH LEVEL OF FUNCTION: LE AROM L Hip ABduction : 20 Degrees TREATMENT: Therapeutic Exercise: 1: standing hamstring curls 1 # left 2x10 2: standing hip abduction with 1 #2x10 3: standing hip flexion 1# 1x10 4: quad sets 1x5 5: heel slides with cues for form 1x10 6: right hip abduction 1x10 at parallel bars 7: supine hip adductor stretch 20 sec x3 8: green rep band seated hamstring curls 2x10 9: SAQ 2x10 10: sit to stand 3x5 Skilled Intervention: Patient was educated in proper exercis e technique and purpose for exercises. Reviewed and educated patient on additions/changes for home exercise program Skilled judgment was provided in selection of appropriate in terventions. Correct performance of therapeutic exercises was facilitated with verbal and visual cuing. Home Exercise Program Assigned: 1: sit to stand from bed 1x5 twice daily Billing: [facility]: Therapeutic Exercise ([id number]): 1:1 time: 30 minutes (2 units: 23-37 mins) Gait Training ([id number]): 1:1 time: 5 minutes (no charge) Total time / Length of visit: 35 minutes Ngozi Gordillo PT cntherapy on 01-15 CNTHERAPY OT/PT/Speech Visit (PTWS) Normal - [facility] ARGENIS HO ([id number]) 1940 [facility] Date Time Provider Department [facility] 01/16/20 2:45 PM NGOZI GORDILLO (PT) PTWS ([id number]) Date Time Provider Department Center 01/16/2020 2:45 PM [id number], LISA (PT) PTWS [facility] Reason for Visit: Physical Therapy [503] Primary Visit Diagnosis:Status post total replacement of l eft hip [Z96.642] Allergies As of Date: 01/16/2020 Noted Allergy Reaction CYMBALTA (DULOXETINE) 01/15/2018 14 - Other: See Comments Comments: Made her feel emotionless. Date Reviewed: 01/10/2020 Reviewed by: Mar Sherman) JAXON Howard - Fully Assessed Prescriptions as of 01/16/2020 Sig: AMOXICILLIN 500 MG TABLET Take 6 tablets by mouth 1 braden* ETODOLAC 400 MG TABLET Take 400 mg by mouth every 8 * ASPIRIN 81 MG TABLET,DELAYED * Take 1 tablet by mouth twice * ASCORBIC ACID (VITAMIN C) 500* Take 1 tablet by mouth twice * BUDESONIDE-FORMOTEROL HFA 160* Inhale 2 Puffs as instructed * ALBUTEROL SULFATE HFA 90 MCG/* INHALE 1 PUFF BY MOUTH EVERY * PANTOPRAZOLE 40 MG TABLET,DEL* Take 1 tablet by mouth daily * ONDANSETRON HCL 4 MG TABLET Take 0.5-1 tablets by mouth e* CHOLECALCIFEROL (VITAMIN D3) * Take 1 capsule by mouth once * CITRACAL + D ORAL Take by mouth once daily. [id number]* Take 1 tablet by mouth every * Progress Notes: Ngozi Gordillo, PT 01/16/2020 5:11 PM Signed Episode Visit Count: 2 Therapist That Will Oversee The Plan Of Care: Ngozi Gordillo Start of Care Date: 01/13/20 Onset Date: 12/10/19 Plan of Care Certification Date: 01/13/20 Next Certification Due Date: 03/09/20 Patient Identified by Name and Date of : Yes REHABILITATION AND SPORTS THERAPY PHYSICAL THERAPY TREATMENT NOTE ASSESSMENT: Argenis Ho demonstrated improvements in gait pattern with cane as well as with exs. The patient will co ntinue to benefit from ongoing skilled physical therapy for progression of strengthening and gait p attern PLAN FOR NEXT VISIT: Continue to advance strenthening as tolerated SUBJECTIVE: Patient Reason for Visit: Pt notes that she is feeling better from what she was feeling the other day. Hip is a little sore. Note that she has been doing more cleaning type things around the house and us ing her cane Pain: Pain Pain Level: 5 Pain Location: Hip - Left Description: Aching Frequency: Intermittent Post Treatment Pain Post Treatment Pain Level: No Change Post Treatment Pain Location: Hip - Left Post Treatment Pain Description: Aching OBJECTIVE MEASURES WITH LEVEL OF FUNCTION: LE AROM L Hip ABduction : 20 Degrees TREATMENT: Therapeutic Exercise: 1: standing hamstring curls 1 # left 2x10 2: standing hip abduction with 1 #2x10 3: standing hip flexion 1# 1x10 4: quad sets 1x5 5: heel slides with cues for form 1x10 6: right hip abduction 1x10 at parallel bars 7: supine hip adductor stretch 20 sec x3 8: green rep band seated hamstring curls 2x10 9: SAQ 2x10 10: sit to stand 3x5 Skilled Intervention: Patient was educated in proper exerc ise technique and purpose for exercises. Reviewed and educated patient on additions/changes for home exercise program Skilled judgment was provided in selection of appropriate in terventions. Correct performance of therapeutic exercises was facil itated with verbal and visual cuing. Home Exercise Program Assigned: 1: sit to stand from bed 1x5 twice daily Billing: [facility]: Therapeutic Exercise ( [id number]): 1:1 time: 30 minutes (2 units: 23-37 mins) Gait Training ([id number]): 1:1 time: 5 minutes (no charge) Total time / Length of visit: 35 minutes Ngozi Gordillo PT progress on 2020-01 PROGRESS HNO ID: [id number] [place] 01-13-2020 [facility] Author: Ngozi Gordillo [facility] Service: ? [facility] Author Type: Physical Therapist ([id number]) Type: Progress Notes Filed: 01/13/2020 5:07 PM Note Text: Episode Visit Count: 1 Therapist That Will Oversee The Plan Of Care: Ngozi Gordillo Start of Care Date: 01/13/20 Onset Date: 12/10/19 Plan of Care Certification Date: 01/13/20 Next Certification Due Date: 03/09/20 Patient Identified by Name and Date of : Yes REHABILITATION AND SPORTS THERAPY PHYSICAL THERAPY EVALUATION PLAN OF CARE: Assessment: Argenis Ho presents with the diagnosis of 6 weeks post op left EUGENIO. Pt doing well overall but not feeling well today. she was a little unsteady with use of st. cane with one slight LOB so informed pt to use walker until further notice. Cues for form and hip preca utions during exs. . She presents with impairments of decreased strength, decreased functional status. . She may benefit from skilled therapy se rvices to improve deficits and return to full functional status. Prognosis: Good Good due to: current objective clinical presentation Goals for Episode of Care: created on 01/13/20 through 03/09 [place] in home exercise program. Patient will decrease pain rating by 2 points to meet minima l clinical important difference for numeric pain rating scale. Patient will increase active ROM of hip abduction to 25 degr ees to allow pt to to improve performance of ADLs. Patient will Improve Timed Up and Go to 12 seconds to demons trate decreased risk of falling. Increased strength of hip and left leg to perform sit to sta nd with no hands Normal gait. Reciprocal stair negotiation. Patient Goals: Wants to be able to walk one mile without get ting winded. . Planned Interventions, Frequency, and Duration: Current Freq uency: 2x/week Duration: 6 weeks Total Number of Visits Planned: 12 Planned Treatment Interventions: Therapeutic exercise;Gait Training;Patient/Family/Caregiver Education PLAN FOR NEXT VISIT: Will continue gait training with cane. Perform bilateral standing exs, Add SAQ supine and hip adductor stre tch. Patient demonstrates good understanding of plan of care and treatment. The above goals and plan of care were discussed and agreed u sofia by patient/family. SUBJECTIVE: Argenis Ho is a 79 year old female seen toda y for S/p left EUGENIO . Pt in hospital 3 days, doing well getting around at home. Doing well . Home therapy This morning nauseous and lighthea ded this am. Not alot of pain. Has cane at home. Patient Goals: Wants to be able to walk one mile without get ting winded. . Functional Limitations: walking in the community;physical ac tivities Prior Level of Function: Independent without limitations Home Environment Patient Lives With: Spouse Home Type: Multi-Level Entry To Home: Stairs;Without Rail Number Of Stairs Into Home: 2 Number Of Stairs To Bed/Bath: 1 Stairs to Bed/Bath with: Unilateral Rail Intake Information: Prescription present Previous Treatment: Exercises per physician Falls Interview: No positive findings with falls interview Pain: Pain Pain Level: 3 Pain Location: Hip - Left Description: Aching Frequency: Intermittent Post Treatment Pain Post Treatment Pain Level: No Change Post Treatment Pain Location: Hip - Left Post Treatment Pain Description: Aching PROMIS Scales Higher is Better 06/18/2015 12/01/2015 04/13/2017 GH Physical - Percentile 7 % 2 % 4 % GH Mental - Percentile 19 % 5 % 13 % T-scores: mean of general population = 50. 5 points is clini aleksandar meaningfully difference Percentiles provide an indication of how the patient's score ranks in relation to the general population. Higher percentile elisabet gs indicate better function/quality of life. 50th percentile is the aver age of the general population and indicates half of respondents had a w orse score. T-scores: mean of general population = 50. 5 points is clini aleksandar meaningfully difference Percentiles provide an indication of how the patient's score ranks in relation to the general population. Higher percentile elisabet gs indicate better function/quality of life. 50th percentile is the aver age of the general population and indicates half of respondents had a w orse score. OBJECTIVE MEASURES WITH LEVEL OF FUNCTION: Posture / Alignment L LE Anatomical Alignment Weight-Bearing: ( left foot toes i n at times ) Hip Observations L Hip Palpation Tenderness: Greater trochanter( lateral ) LE AROM L Hip Flexion: 90 Degrees L Hip ABduction : 15 Degrees L Knee Extension: 0 Degrees L Knee Flexion: 130 Degrees LE Strength L LE Strength: deferred d/t surgical status Functional Strength Functional Strength: trouble with sit to stand, uses hands Trendelenburg: left with gait. Gait Weight Bearing Status: WBAT Gait: Independent Gait Device: Front-wheeled Walker Gait Deviations: Left Lower Extremity Gait Deviations Left Lower Extremity: ( slight IR foot ) Gait Observation: slight LOB x1 self recovered with use of s t. cane. Functional Performance Test Results Assistive Device: Wheeled Walker 30 Second Chair Stand Test: 0 reps( has to use hands ) Timed Up and Go (sec): 20 sec Education: Education Learning Preferences: Demonstration;Explanation;Performance Barriers: None Learning/educational needs: Home exercise program;Plan of Ca re Education Provided: Yes, see treatment interventions for edu cation provided Education Provided To: Patient Education Mode/Type: Demonstration;Explanation/Discussion;Pe rformance Response to Education/Teach Back: States/Identifies;Return D emonstration TREATMENT: Evaluation Therapeutic Exercise: 1: standing hamstring curls 1x10 2: standing hip abduction 1x10 3: supine gluteal sets 1x5 4: quad sets 1x5 5: heel slides with cues for form 6: review of hip precautions with visual cues. Skilled Intervention: Patient was educated in proper exercis e technique and purpose for exercises. Skilled judgment was provided in selection of appropriate in terventions. Correct performance of therapeutic exercises was facilitated with verbal and visual cuing. Gait Trainin: with st. cane. Cues for sequence and proper turn with dylan mary on guarding Skilled Intervention: Patient was provided contact guard ass istance during pre-gait/gait training to prevent falls and insure sa fety. Facilitated proper gait cycle with the use of verbal and vis ual cues for correction of gait deviations identified in the objective se ction above. Education provided to patient regarding the proper sequence for level surface negotiation. Billing: [facility]: Evaluation - Low Complexity (21028) Therapeutic Exercise (02211): 1:1 time: 20 minutes (1 unit: 8-22 mins) Gait Training (02975): 1:1 time: 5 minutes (no charge) Total time / Length of visit: 40 minutes Ngozi Gordillo PT cntherapy on 01-12 CNTHERAPY OT/PT/Speech Visit (PTWS) Normal - [facility] ARGENIS HO ([id number]) 1940 F Clinic Date Time Provider Department [facility] 01/13/20 9:30 AM NGOZI GORDILLO (PT) PTWS ([id number]) Date Time Provider Department Center 01/13/2020 9:30 AM [id number], LISA (PT) PTWS [facility] Reason for Visit: PT Eval [747] Patient Education [91] Primary Visit Diagnosis:Status post total replacement of l eft hip [Z96.642] Allergies As of Date: 01/13/2020 Noted Allergy Reaction CYMBALTA (DULOXETINE) 01/15/2018 14 - Other: See Comments Comments: Made her feel emotionless. Date Reviewed: 01/10/2020 Reviewed by: Mar Sherman) JAXON Howard - Fully Assessed Prescriptions as of 01/13/2020 Sig: AMOXICILLIN 500 MG TABLET Take 6 tablets by mouth 1 braden* ETODOLAC 400 MG TABLET Take 400 mg by mouth every 8 * ASPIRIN 81 MG TABLET,DELAYED * Take 1 tablet by mouth twice * ASCORBIC ACID (VITAMIN C) 500* Take 1 tablet by mouth twice * BUDESONIDE-FORMOTEROL HFA 160* Inhale 2 Puffs as instructed * ALBUTEROL SULFATE HFA 90 MCG/* INHALE 1 PUFF BY MOUTH EVERY * PANTOPRAZOLE 40 MG TABLET,DEL* Take 1 tablet by mouth daily * ONDANSETRON HCL 4 MG TABLET Take 0.5-1 tablets by mouth e* CHOLECALCIFEROL (VITAMIN D3) * Take 1 capsule by mouth once * CITRACAL + D ORAL Take by mouth once daily. [id number]* Take 1 tablet by mouth every * Progress Notes: Ngozi Gordillo PT 01/13/2020 5:07 PM Signed Episode Visit Count: 1 Therapist That Will Oversee The Plan Of Care: Ngozi Gordillo Start of Care Date: 01/13/20 Onset Date: 12/10/19 Plan of Care Certification Date: 01/13/20 Next Certification Due Date: 03/09/20 Patient Identified by Name and Date of : Yes [facility]TS [facility]ER[facility]Y PHYSICAL THERAPY EVALUATION PLAN OF CARE: Assessment: Argenis Ho presents with the diagnosis of 6 weeks post op left EUGENIO. Pt doing well overall b ut not feeling well today. she was a little unsteady with use of st. cane with one slight LOB so informed pt to use walker until further notice. Cues for form and hip precautions duri ng exs. . She presents with impairments of decreased strength, decreased functional status. . She may benefit from skilled therapy services to improve defic its and return to full functional status. Prognosis: Good Good due to: current objective clinical presentation Goals for Episode of Care: created on 01/13/20 through 03/09 [place] in home exercise program. Patient will decrease pain r ating by 2 points to meet minimal clinical important difference for numeric pain rating scale. Patient will increase active ROM of hip abduction to 25 de grees to allow pt to to improve performance of ADLs. Patient will Improve Timed U p and Go to 12 seconds to demonstrate decreased risk of falling. Increased strength of hip and left leg to perform sit to stand with no hands Normal gait. Reciprocal stair negotiation. Patient Goals: Wants to be able to walk one mile without get ting winded. . Planned Interventions, Frequency, and Duration: Current Freq uency: 2x/week Duration: 6 weeks Total Number of Visits Planned: 12 Planned Treatment Interventions: Therapeutic exercise;Gait Training;Patient/Family/Caregiver Education PLAN FOR NEXT VISIT: Will continue gait training with cane. Perform bilateral standing exs, Add SAQ supine and hip adductor stretch. Patient demonstrates good understanding of plan of care and treatment. The above goals and plan of care were discus sed and agreed upon by patient/family. SUBJECTIVE: Argenis Ho is a 79 year old female seen toda y for S/p left EUGENIO . Pt in hospital 3 days, doing well getting around at home. Doing well . Home therapy This morning nauseous and lighthead ed this am. Not alot of pain. Has cane at home. Patient Goals: Wants to be able to walk one mile without get ting winded. . Functional Limitations: walking in the community;physical ac tivities Prior Level of Function: Independent without limitations Home Environment Patient Lives With: Spouse Home Type: Multi-Level Entry To Home: Stairs;Without Rail Number Of Stairs Into Home: 2 Number Of Stairs To Bed/Bath: 1 Stairs to Bed/Bath with: Unilateral Rail Intake Information: Prescription present Previous Treatment: Exercises per physician Falls Interview: No positive findings with falls interview Pain: Pain Pain Level: 3 Pain Location: Hip - Left Description: Aching Frequency: Intermittent Post Treatment Pain Post Treatment Pain Level: No Change Post Treatment Pain Location: Hip - Left Post Treatment Pain Description: Aching PROMIS Scales Higher is Better 06/18/2015 12/01/2015 04/13/2017 GH Physical - Percentile 7 % 2 % 4 % GH Mental - Percentile 19 % 5 % 13 % T-scores: mean of general population = 50. 5 points is clini aleksnadar meaningfully difference Percentiles provide an indication of how the patient's score ranks in relation to the general population. Higher percentile rankings indica te better function/quality of life. 50th percentile is the average of the general population and indicates half of respondents had a worse sco re. T-scores: mean of general population = 50. 5 points is clini aleksandar meaningfully difference Percentiles provide an indication of how the patient's score ranks in relation to the general population. Higher percentile rankings indica te better function/quality of life. 50th percentile is the average of the general population and indicates half of respondents had a worse sco re. OBJECTIVE MEASURES WITH LEVEL OF FUNCTION: Posture / Alignment L LE Anatomical Alignment Weight-Bearing: ( left foot toes i n at times ) Hip Observations L Hip Palpation Tenderness: Greater trochanter( lateral ) LE AROM L Hip Flexion: 90 Degrees L Hip ABduction : 15 Degrees L Knee Extension: 0 Degrees L Knee Flexion: 130 Degrees LE Strength L LE Strength: deferred d/t surgical status Functional Strength Functional Strength: trouble with sit to stand, uses hands Trendelenburg: left with gait. Gait Weight Bearing Status: WBAT Gait: Independent Gait Device: Front-wheeled Walker Gait Deviations: Left Lower Extremity Gait Deviations Left Lower Extremity: ( slight IR foot ) Gait Observation: slight LOB x1 self recovered with use of s t. cane. Functional Performance Test Results Assistive Device: Wheeled Walker 30 Second Chair Stand Test: 0 reps( has to use hands ) Timed Up and Go (sec): 20 sec Education: Education Learning Preferences: Demonstration;Explanation;Performance Barriers: None Learning/educational needs: Home exercise program;Plan of Ca re Education Provided: Yes, see treatment interventions for e ducation provided Education Provided To: Patient Education Mode/Type: Demonstration;Explanation/Discussion;Pe rformance Response to Education/Teach Back: States/Identifies;Return D emonstration TREATMENT: Evaluation Therapeutic Exercise: 1: standing hamstring curls 1x10 2: standing hip abduction 1x10 3: supine gluteal sets 1x5 4: quad sets 1x5 5: heel slides with cues for form 6: review of hip precautions with visual cues. Skilled Intervention: Patient was educated in proper exerc ise technique and purpose for exercises. Skilled judgment was provided in selection of appropriate in terventions. Correct performance of therapeutic exercises was facil itated with verbal and visual cuing. Gait Trainin: with st. cane. Cues for sequence and proper turn with dylan ds on guarding Skilled Intervention: Patient was provided contact guard ass istance during pre-gait/gait training to prevent falls and insure safety. Facilitated proper gait cycle with the use of verbal and vis ual cues for correction of gait deviations identified in the objective se ction above. Education provided to patient regarding the prop er sequence for level surface negotiation. Billing: [facility]: Evaluation - Low Complexity (57572) Therapeutic Exercise (01534): 1:1 time: 20 minutes (1 unit: 8-22 mins) Gait Training (41557): 1:1 time: 5 minutes (no charge) Total time / Length of visit: 40 minutes Ngozi Gordillo PT xr knee 4v ap/pa both+lat/ely lt on 2020-01-10 XR KNEE 4V AP/PA * * *Final Report* * * Normal 01-10-2020 [facility] BOTH+LAT/ELY LT DATE OF EXAM: Jan 10 2020 8:32AM Clinic AOX 5202 - XR KNEE 4V AP/PA BOTH+LAT/ELY LT / [id number] [facility] PROCEDURE REASON: multiple diagnoses ([id number]) * * * * Physician Interpretation * * * * EXAMINATION: XR HIP 3V PELV+ AP/LAT LT, XR KNEE 4V AP/PA BOT H+LAT/ELY LT HISTORY: follow up. Pain in left hip (accession [id number]), Chronic pain of left knee. follow up (accession [id number]) Anemia, u nspecified type Other secondary osteoarthritis of left hip . TECHNIQUE: XR HIP 3V PELV+ AP/LAT LT, XR KNEE 4V AP/PA BOTH+ LAT/ELY LT Laterality: LEFT Number of different views (projections): 3 (accession [id number]), 4 (accession [id number]) M: XB_1 COMPARISON: Hip radiographs 12/10/2019, knee radiographs RESULT: Left hip and pelvis: No acute fracture or dislocation. Left total hip arthroplasty is again noted without evidence of hardware rel ated complication. Interval resolution of postoperative soft tiss ue gas about the left hip. Partially visualized right total hip arthropla sty is unremarkable on the given projection. Mild degenerative cuellar ges of the SI joints and advanced degenerative change of the visualized lower lumbar spine. Left knee: No acute fracture or dislocation. Left total knee arthroplasty with patellar resurfacing is again noted withou t evidence of hardware related complication. Right total knee arthroplasty is unremarkable on the given projections. IMPRESSION: Left total hip and left total knee arthroplasties without ev idence of hardware-related complication. Secure Software Assessor: [facility] Transcribe Date/Time: Jan 10 2020 9:55A Dictated by : PHOEBE BLAIR MD This examination was interpreted and the report reviewed and electronically signed by: PHOEBE BLIAR MD on Jan 10 2020 9:58AM EST [id number] xr hip 3v pelv+ ap/lat lt on 2020-01-10 XR HIP 3V PELV+ * * *Final Report* * * Normal 0 01-10-2020 [facility] AP/LAT LT DATE OF EXAM: Jan 10 2020 8:33AM [facility] ([id number]) AOX 5351 - XR HIP 3V PELV+ AP/LAT LT / PROCEDURE REASON: multiple diagnoses * * * * Physician Interpretation * * * * EXAMINATION: XR HIP 3V PELV+ AP/LAT LT, XR KNEE 4V AP/PA BOT H+LAT/LEY LT HISTORY: follow up. Pain in left hip (accession [id number]), Chronic pain of left knee. follow up (accession [id number]) Anemia, u nspecified type Other secondary osteoarthritis of left hip . TECHNIQUE: XR HIP 3V PELV+ AP/LAT LT, XR KNEE 4V AP/PA BOTH+ LAT/ELY LT Laterality: LEFT Number of different views (projections): 3 (accession [id number]), 4 (accession [id number]) M: XB_1 COMPARISON: Hip radiographs 12/10/2019, knee radiographs RESULT: Left hip and pelvis: No acute fracture or dislocation. Left total hip arthroplasty is again noted without evidence of hardware rel ated complication. Interval resolution of postoperative soft tiss ue gas about the left hip. Partially visualized right total hip arthropla sty is unremarkable on the given projection. Mild degenerative cuellar ges of the SI joints and advanced degenerative change of the visualized lower lumbar spine. Left knee: No acute fracture or dislocation. Left total knee arthroplasty with patellar resurfacing is again noted withou t evidence of hardware related complication. Right total knee arthroplasty is unremarkable on the given projections. IMPRESSION: Left total hip and left total knee arthroplasties without ev idence of hardware-related complication. Secure Software Assessor: [facility] Transcribe Date/Time: Jan 10 2020 9:55A Dictated by : PHOEBE BLAIR MD This examination was interpreted and the report reviewed and electronically signed by: PHOEBE BLAIR MD on Jan 10 2020 9:58AM EST [id number] progress on 2020-01 PROGRESS HNO ID: [id number] Normal 01-10-2020 [facility] Author: Mar Sherman) JAXON [facility] Service: ? [facility] Author Type: Physician Screen Cutter And Trimmer ([id number]) Type: Progress Notes Filed: 01/10/2020 9:00 AM Note Text: Ortho Hip Follow Up Note Narrative Referring Provider: Kodak Berg MD [address] [facility] [address] PCP: No primary care provider on file. IMPRESSION/PLAN: Impressions indicate: 79 year old s/p Left Total Hip Replacement completed on 2019. S/p right revision total hip on 07/09/2014 S/p revision left total knee replacement on 05/16/2011 S/p right total knee replacement by Dr. Garcia at IMPRESSION: At normal post-operative stage of recovery. PLAN: Full WB D/C walker, begin use of cane Outpatient PT Handicap parking Patient Reassurance: Progress appears to be with the normal speed of recovery. Patient reassured and supported. All questions answered. Follow up 6 months No X-Rays Needed ACTIVE PROBLEM LIST Secondary localized osteoarthrosis, pelvic region and thigh Primary localized osteoarthrosis, lower leg Primary localized osteoarthrosis, hand Vitamin D Deficiency Pain in Thoracic Spine Cervicalgia Cervical spondylosis without myelopathy Congenital Spondylolisthesis Unspecified disorder of muscle, ligament, and fascia Muscle Weakness (Generalized) Lumbar Spondylosis Lumbago Brachial Neuritis Or Radiculitis NOS Severe Episode of Recurrent Major Depressive Disorder (Hcc) Gerd (Gastroesophageal Reflux Disease) Cervical Arthritis Lumbar Spinal Stenosis Microscopic Hematuria Neoplasm of Uncertain Behavior of Kidney Ex-Smoker Backache, Unspecified Preglaucoma, Unspecified Headache, Unspecified Headache Type Tear Film Insufficiency, Unspecified History of Compression Fracture of Spine Displacement of Lumbar Intervertebral Disc Without Myelopath y History of Dislocation of Hip Occipital Neuralgia of Right Side Iron Deficiency Anemia Current Use of Proton Pump Inhibitor Neftaly Positive History of Colonic Polyps Age-Related Osteoporosis Without Current Pathological Fractu re Encounter for Screening for Cardiovascular Disorders Encounter for Screening for Diabetes Mellitus Copd (Chronic Obstructive Pulmonary Disease) (Hcc) Abnormal Stress Ecg Huang (Dyspnea On Exertion) Osteoarthritis of Left Hip HPI: Argenis Ho presents today for a routine 1st post-op visi t. STATUS POST: Left Total Hip Replacement BMI: There is no height or weight on file to calculate BMI. Post operative recovery was complicated by uneventful/none. Patient rates their condition as improving. Does the patient still experience pain? see MIDAS Form. Post Op discharge patient location: in home. Functional Assessment is as follows: is ready to begin outpa tient PT. Functional difficulties: None. Pain Medication: No EXAM: POST OP HIP LEFT POST-OPERATIVE HIP SKIN: Appropriate postop appearance, No evidence of erythema , warmth, discharge or drainage and No evidence of warmth or erythema. Range of Motion: Pain Free Neurovascular Status: Sensation Intact, Moves foot and ankle up AND down and 2+ dorsalis pedis IMAGING: X-ray Hips: Post op Implants are well fixed., There is no evidence of loosening. and There is evidence of osteo-integration. Provider: Mar Howard PA-C, PA Completed by: Mar Howard PA-C PROGRESS HNO ID: [id number] Normal 01-10-2020 [facility] Author: Severino () Genesis Monteiro [facility] Service: ? [facility] Author Type: Partner ([id number]) Type: Progress Notes Filed: 01/10/2020 8:33 AM Note Text: Radiology Service Progress Note PATIENT NAME: Argenis Ho DATE OF SERVICE: January 10, 2020 TIME: 8:33 AM PATIENT IDENTITY VERIFICATION COMPLETED USING TWO (2) IDENTI FIERS: Name and Date of confirmed by patient verbally. FALL SCREENING: Has the patient had 2 falls in the last year or 1 fall with injury or currently using an Ambulatory Assistive Devic e (Walker, Cane, Wheelchair, Crutches, etc.)? No PATIENT GENDER DATA: Female. status: : No status: NO. PATIENT RELEVANT IMPLANT DATA REVIEWED: Not Applicable RADIOLOGY DEPARTMENT: General X-ray: Exam(s) Completed: Pelv is X-Ray: Pelvis with Hip Left Lower Extremity X-Ray(s): Knee, AP / Lat / Tunne / Merchant Left and Wt. Bearing: PERIPHERAL IV DATA: Not applicable SIGNED BY: RT Karla January 10, 2020 8:33 AM cnov on 2020-01-10 CNOV Office Visit (ORTHMN) Normal 01-10-20 [facility] ARGENIS HO ([id number]) 1940 [facility] Date Time Provider Department ([id number]) 01/10/20 8:00 AM MRA HOWARD) ORTHMN During your visit today, we recorded the following informati on about you: Mar Howard PA-C, JAXON 01/10/2020 9:00 AM Signed Ortho Hip Follow Up Note Narrative Referring Provider: Kodak Berg MD [address] [facility] [id number] PCP: No primary care provider on file. IMPRESSION/PLAN: Impressions indicate: 79 year old s/p Left Total Hip Replacement completed on 2019. S/p right revision total hip on 07/09/2014 S/p revision left total knee replacement on 05/16/2011 S/p right total knee replacement by Dr. Garcia at IMPRESSION: At normal post-operative stage of recovery. PLAN: Full WB D/C walker, begin use of cane Outpatient PT Handicap parking Patient Reassurance: Progress appears to be with the normal speed of recovery. Patient reassured and supported. All questions answered. Follow up 6 months No X-Rays Needed ACTIVE PROBLEM LIST Secondary localized osteoarthrosis, pelvic region and thigh Primary localized osteoarthrosis, lower leg Primary localized osteoarthrosis, hand Vitamin D Deficiency Pain in Thoracic Spine Cervicalgia Cervical spondylosis without myelopathy Congenital Spondylolisthesis Unspecified disorder of muscle, ligament, and fascia Muscle Weakness (Generalized) Lumbar Spondylosis Lumbago Brachial Neuritis Or Radiculitis NOS Severe Episode of Recurrent Major Depressive Disorder (Hcc) Gerd (Gastroesophageal Reflux Disease) Cervical Arthritis Lumbar Spinal Stenosis Microscopic Hematuria Neoplasm of Uncertain Behavior of Kidney Ex-Smoker Backache, Unspecified Preglaucoma, Unspecified Headache, Unspecified Headache Type Tear Film Insufficiency, Unspecified History of Compression Fracture of Spine Displacement of Lumbar Intervertebral Disc Without Myelopath y History of Dislocation of Hip Occipital Neuralgia of Right Side Iron Deficiency Anemia Current Use of Proton Pump Inhibitor Neftaly Positive History of Colonic Polyps Age-Related Osteoporosis Without Current Pathological Fractu re Encounter for Screening for Cardiovascular Disorders Encounter for Screening for Diabetes Mellitus Copd (Chronic Obstructive Pulmonary Disease) (Hcc) Abnormal Stress Ecg Huang (Dyspnea On Exertion) Osteoarthritis of Left Hip HPI: Argenis Ho presents today for a routine 1st post-op visi t. STATUS POST: Left Total Hip Replacement BMI: There is no height or weight on file to calculate BMI. Post operative recovery was complicated by uneventful/none. Patient rates their condition as improving. Does the patient still experience pain? see MIDAS Form. Post Op discharge patient location: in home. Functional Assessment is as follows: is ready to begin outpa tient PT. Functional difficulties: None. Pain Medication: No EXAM: POST OP HIP LEFT POST-OPERATIVE HIP SKIN: Appropriate postop appearance, No evidence of erythema , warmth, discharge or drainage and No evidence of warmth or erythema. Range of Motion: Pain Free Neurovascular Status: Sensat ion Intact, Moves foot and ankle up AND down and 2+ dorsalis pedis IMAGING: X-ray Hips: Post op Implants are well fixed., There is no evidence of loosening. and There is evidence of osteo-integration. Provider: Mar Howard PA-C, PA Completed by: AIDA Pillai PA-C, PA 01/10/2020 9:01 AM Signed Addended by: MAR HOWARD on: 01/10/2020 09:01 AM Modules accepted: Orders Referring Provider: KODAK BERG [[id number]] Allergies As of Date: 01/10/2020 Noted Allergy Reaction CYMBALTA (DULOXETINE) 01/15/2018 14 - Other: See Comments Comments: Made her feel emotionless. 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] Order(s):PARKING FOR HANDICAPPED [1679351] Order #: [id number] CONSULT TO PHYSICAL THERAPY [9032] Order #: [id number]: 1 FUTURE Amoxicillin 500 mg tabletTake 6 tablets by mouth 1 hour befo re dental procedure and 2 tablets by mouth 6 hours after.Disp: 16 tabl etRfl: 2 Prescriptions as of 01/10/2020 Sig: AMOXICILLIN 500 MG TABLET Take 6 tablets by mouth 1 braden* ETODOLAC 400 MG TABLET Take 400 mg by mouth every 8 * ASPIRIN 81 MG TABLET,DELAYED * Take 1 tablet by mouth twice * DOCUSATE SODIUM 100 MG CAPSULE Take 1 capsule by mouth twice * ASCORBIC ACID (VITAMIN C) 500* Take 1 tablet by mouth twice * BUDESONIDE-FORMOTEROL HFA 160* Inhale 2 Puffs as instructed * ALBUTEROL SULFATE HFA 90 MCG/* INHALE 1 PUFF BY MOUTH EVERY * PANTOPRAZOLE 40 MG TABLET,DEL* Take 1 tablet by mouth daily * ONDANSETRON HCL 4 MG TABLET Take 0.5-1 tablets by mouth e* CHOLECALCIFEROL (VITAMIN D3) * Take 1 capsule by mouth once * CITRACAL + D ORAL Take by mouth once daily. [id number]* Take 1 tablet by mouth every * Problem List As Of Date 01/10/2020 Noted Resolved Secondary localized osteoarthrosis, pelvic ovidio*12/05/2005 Primary localized osteoarthrosis, lower leg [M1*12/05/2005 Primary localized osteoarthrosis, hand [M19.049]12/05/2005 Vitamin D deficiency [E55.9] 06/21/2006 Pain in thoracic spine [M54.6] 08/10/2006 Cervicalgia [M54.2] 03/22/2007 More... 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 GERD (gastroesophageal reflux disease) [K21.9] More... 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 Displacement of lumbar intervertebral disc with*01/31/2014 History of dislocation of hip [Z87.828] 07/09/2014 More... Occipital neuralgia of right side [M54.81] 02/24/2016 Iron deficiency anemia [D50.9] 03/02/2017 Current use of proton pump inhibitor [Z79.899] 03/02/2017 NEFTALY positive [R76.8] 03/27/2017 History of colonic polyps [Z86.010] 07/19/2017 Age-related osteoporosis without current pathol*10/16/2017 Encounter for screening for cardiovascular diso*01/15/2018 Encounter for screening for diabetes mellitus [*01/15/2018 COPD (chronic obstructive pulmonary disease) (H*02/05/2018 More... Abnormal stress ECG [R94.39] 02/21/2018 More... HUANG (dyspnea on exertion) [R06.00] 02/21/2018 Osteoarthritis of left hip [M16.12] 12/11/2019 Prescriptions ordered this encounter Disp Refills Start End AMOXICILLIN 500 MG TABLET 16 t* 2 01/10/2020 Sig: Take 6 tablets by mouth 1 hour before dental proc edure and 2 tablets by mouth 6 hours after. Follow-up and Disposition History Recorded Encounter Status:Closed by MAR HOWARD on 01/10/20 cnpn on 2020-01-08 CNPN Telephone (HCSIND) Normal 01-08-2020 [facility] ARGENIS HO ([id number]) 1940 [facility] Time Provider Department ([id number]) 01/08/20 ARMEN FIERRO (PT) HCSIND During your visit today, we recorded the following informati on about you: Armen Fierro, PT, PT 01/08/2020 10:19 AM Signed Situation: PT agency [place] Background: Pt s/p L EUGENIO by Dr Berg on 12/10/19. She returned home from hospital on 12/13/19. Assessment: PWB 75% L LE with hip precautions. Patient is in dependent with HEP, pain management, edema management and weight bear ing restrictions. Left hip pain rated 0/10 - 3/10. Patient demonstrated indep endence with household mobility using FWW and can perform all necessary transfers i ndependently. Incision healing well with no drainage or signs and symptoms of infection noted. Patient has OP PT scheduled for next week. Lori ent has met all goals. Recommendation: Discharge HHPT as all goals were met. Allergies As of Date: 01/08/2020 Noted Allergy Reaction CYMBALTA (DULOXETINE) 01/15/2018 14 - Other: See Comments Comments: Made her feel emotionless. Date Reviewed: 01/08/2020 Reviewed by: Armen (Pt) ARLYN Fierro - Fully Assessed Reason for Visit: Home Care [4073] Cmt: PT agency [place] Prescriptions as of 01/08/2020 Sig: ETODOLAC 400 MG TABLET Take 400 mg by mouth every 8 * ASPIRIN 81 MG TABLET,DELAYED * Take 1 tablet by mouth twice * DOCUSATE SODIUM 100 MG CAPSULE Take 1 capsule by mouth twice * ASCORBIC ACID (VITAMIN C) 500* Take 1 tablet by mouth twice * BUDESONIDE-FORMOTEROL HFA 160* Inhale 2 Puffs as instructed * ALBUTEROL SULFATE HFA 90 MCG/* INHALE 1 PUFF BY MOUTH EVERY * PANTOPRAZOLE 40 MG TABLET,DEL* Take 1 tablet by mouth daily * ONDANSETRON HCL 4 MG TABLET Take 0.5-1 tablets by mouth e* CHOLECALCIFEROL (VITAMIN D3) * Take 1 capsule by mouth once * CITRACAL + D ORAL Take by mouth once daily. [id number]* Take 1 tablet by mouth every * Problem List As Of Date 01/08/2020 Noted Resolved Secondary localized osteoarthrosis, pelvic ovidio*12/05/2005 Primary localized osteoarthrosis, lower leg [M1*12/05/2005 Primary localized osteoarthrosis, hand [M19.049]12/05/2005 Vitamin D deficiency [E55.9] 06/21/2006 Pain in thoracic spine [M54.6] 08/10/2006 Cervicalgia [M54.2] 03/22/2007 More... 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 GERD (gastroesophageal reflux disease) [K21.9] More... 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 Displacement of lumbar intervertebral disc with*01/31/2014 History of dislocation of hip [Z87.828] 07/09/2014 More... Occipital neuralgia of right side [M54.81] 02/24/2016 Iron deficiency anemia [D50.9] 03/02/2017 Current use of proton pump inhibitor [Z79.899] 03/02/2017 NEFTALY positive [R76.8] 03/27/2017 History of colonic polyps [Z86.010] 07/19/2017 Age-related osteoporosis without current pathol*10/16/2017 Encounter for screening for cardiovascular diso*01/15/2018 Encounter for screening for diabetes mellitus [*01/15/2018 COPD (chronic obstructive pulmonary disease) (H*02/05/2018 More... Abnormal stress ECG [R94.39] 02/21/2018 More... HUANG (dyspnea on exertion) [R06.00] 02/21/2018 Osteoarthritis of left hip [M16.12] 12/11/2019 Encounter Status:Closed by MAR HOWARD on 01/08/20 cnpn on 2019-12-26 CNPN Telephone (HCSIND) Normal 12-26-2019 [facility] ARGENIS HO ([id number]) 1940 [address] [place] Date Time Provider Department ([id number]) 12/26/19 IRENE KUMAR) HCSIND During your visit today, we recorded the following informati on about you: Irene Kumar PT Assist, PT ASSIST 12/26/2019 10:27 AM Signed Went to patients home for scheduled PT v isit. No answer at door, home phone or cell phone. Left message for patient to return call Allergies As of Date: 12/26/2019 Noted Allergy Reaction CYMBALTA (DULOXETINE) 01/15/2018 14 - Other: See Comments Comments: Made her feel emotionless. Date Reviewed: 12/24/2019 Reviewed by: Irene Paz) ARLYN Kumar - Fully Assessed Reason for Visit: Home Care [4073] Cmt: Missed PT visit Prescriptions as of 12/26/2019 Sig: ACETAMINOPHEN 325 MG TABLET Take 2 tablets by mouth every* HYDROCODONE 5 MG-ACETAMINOPHE* Take 1 tablet by mouth every * ETODOLAC 400 MG TABLET Take 400 mg by mouth every 8 * ASPIRIN 81 MG TABLET,DELAYED * Take 1 tablet by mouth twice * DOCUSATE SODIUM 100 MG CAPSULE Take 1 capsule by mouth twice * ASCORBIC ACID (VITAMIN C) 500* Take 1 tablet by mouth twice * MELOXICAM 7.5 MG TABLET Take 1 tablet by mouth once d* BUDESONIDE-FORMOTEROL HFA 160* Inhale 2 Puffs as instructed * ALBUTEROL SULFATE HFA 90 MCG/* INHALE 1 PUFF BY MOUTH EVERY * PANTOPRAZOLE 40 MG TABLET,DEL* Take 1 tablet by mouth daily * ONDANSETRON HCL 4 MG TABLET Take 0.5-1 tablets by mouth e* CHOLECALCIFEROL (VITAMIN D3) * Take 1 capsule by mouth once * CITRACAL + D ORAL Take by mouth once daily. [id number]* Take 1 tablet by mouth every * Problem List As Of Date 12/26/2019 Noted Resolved Secondary localized osteoarthrosis, pelvic ovidio*12/05/2005 Primary localized osteoarthrosis, lower leg [M1*12/05/2005 Primary localized osteoarthrosis, hand [M19.049]12/05/2005 Vitamin D deficiency [E55.9] 06/21/2006 Pain in thoracic spine [M54.6] 08/10/2006 Cervicalgia [M54.2] 03/22/2007 More... 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 GERD (gastroesophageal reflux disease) [K21.9] More... 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 Displacement of lumbar intervertebral disc with*01/31/2014 History of dislocation of hip [Z87.39] 07/09/2014 More... Occipital neuralgia of right side [M54.81] 02/24/2016 Iron deficiency anemia [D50.9] 03/02/2017 Current use of proton pump inhibitor [Z79.899] 03/02/2017 NEFTALY positive [R76.8] 03/27/2017 History of colonic polyps [Z86.010] 07/19/2017 Age-related osteoporosis without current pathol*10/16/2017 Encounter for screening for cardiovascular diso*01/15/2018 Encounter for screening for diabetes mellitus [*01/15/2018 COPD (chronic obstructive pulmonary disease) (H*02/05/2018 More... Abnormal stress ECG [R94.39] 02/21/2018 More... HUANG (dyspnea on exertion) [R06.00] 02/21/2018 Osteoarthritis of left hip [M16.12] 12/11/2019 Encounter Status:Closed by IRENE KUMAR on 12/26/19 CNPN Telephone (HCSIND) Normal 12-26-2019 [facility] ARGENIS Carrillo ([id number]) 1940 [address] [place] Date Time Provider Department ([id number]) 12/26/19 IRENE KUMAR (ELECTRIC SCREW DRIVER OPERATOR) HCSIND During your visit today, we recorded the following informati on about you: Irene Lenora, PT Assist, PT ASSIST 12/26/2019 7:16 AM Signed Patient and would li ke to continue with OP PT after her f/u with you on December.. Patients called and already scheduled the OP PT appointment for January 13, 2020. Patient will need OP PT orders entered in [facility] if you feel this is appropriate. Thank you. Allergies As of Date: 12/26/2019 Noted Allergy Reaction CYMBALTA (DULOXETINE) 01/15/2018 14 - Other: See Comments Comments: Made her feel emotionless. Date Reviewed: 12/24/2019 Reviewed by: Irene (Sales Representative Sales Manager) Lenora PT ASSIST - Fully Assessed Reason for Visit: Home Care [4073] Cmt: Out patient PT orders Prescriptions as of 12/26/2019 Sig: HYDROCODONE 5 MG-ACETAMINOPHE* Take 1 tablet by mouth every * ETODOLAC 400 MG TABLET Take 400 mg by mouth every 8 * ASPIRIN 81 MG TABLET,DELAYED * Take 1 tablet by mouth twice * DOCUSATE SODIUM 100 MG CAPSULE Take 1 capsule by mouth twice * ASCORBIC ACID (VITAMIN C) 500* Take 1 tablet by mouth twice * MELOXICAM 7.5 MG TABLET Take 1 tablet by mouth once d* BUDESONIDE-FORMOTEROL HFA 160* Inhale 2 Puffs as instructed * ALBUTEROL SULFATE HFA 90 MCG/* INHALE 1 PUFF BY MOUTH EVERY * PANTOPRAZOLE 40 MG TABLET,DEL* Take 1 tablet by mouth daily * ONDANSETRON HCL 4 MG TABLET Take 0.5-1 tablets by mouth e* CHOLECALCIFEROL (VITAMIN D3) * Take 1 capsule by mouth once * CITRACAL + D ORAL Take by mouth once daily. [id number]* Take 1 tablet by mouth every * Problem List As Of Date 12/26/2019 Noted Resolved Secondary localized osteoarthrosis, pelvic ovidio*12/05/2005 Primary localized osteoarthrosis, lower leg [M1*12/05/2005 Primary localized osteoarthrosis, hand [M19.049]12/05/2005 Vitamin D deficiency [E55.9] 06/21/2006 Pain in thoracic spine [M54.6] 08/10/2006 Cervicalgia [M54.2] 03/22/2007 More... 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 GERD (gastroesophageal reflux disease) [K21.9] More... 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 Displacement of lumbar intervertebral disc with*01/31/2014 History of dislocation of hip [Z87.39] 07/09/2014 More... Occipital neuralgia of right side [M54.81] 02/24/2016 Iron deficiency anemia [D50.9] 03/02/2017 Current use of proton pump inhibitor [Z79.899] 03/02/2017 NEFTALY positive [R76.8] 03/27/2017 History of colonic polyps [Z86.010] 07/19/2017 Age-related osteoporosis without current pathol*10/16/2017 Encounter for screening for cardiovascular diso*01/15/2018 Encounter for screening for diabetes mellitus [*01/15/2018 COPD (chronic obstructive pulmonary disease) (H*02/05/2018 More... Abnormal stress ECG [R94.39] 02/21/2018 More... HUANG (dyspnea on exertion) [R06.00] 02/21/2018 Osteoarthritis of left hip [M16.12] 12/11/2019 Encounter Status:Closed by IRENE KUMAR on 12/26/19 cnpn on 2019-12-16 CNPN Telephone (PODCCP) Normal 12-16-2019 [facility] GEORGIAARGENIS Camila ([id number]) 1940 [address] [place] Date Time Provider Department ([id number]) 12/16/19 KAZ FRANKLIN (STUDENT) PODCCP During your visit today, we recorded the following informati on about you: Allergies As of Date: 12/16/2019 Noted Allergy Reaction CYMBALTA (DULOXETINE) 01/15/2018 14 - Other: See Comments Comments: Made her feel emotionless. Date Reviewed: 12/14/2019 Reviewed by: Sean (Pt) ARLYN Valdivia - Fully Assessed Reason for Visit: Follow Up Phone Call [[id number]] Cmt: Post Discharge F/U ? attemp t made. No answer. Prescriptions as of 12/16/2019 Sig: ASPIRIN 81 MG TABLET,DELAYED * Take 1 tablet by mouth twice * DOCUSATE SODIUM 100 MG CAPSULE Take 1 capsule by mouth twice * OXYCODONE 5 MG TABLET Take 1-2 tablets by mouth emely* ASCORBIC ACID (VITAMIN C) 500* Take 1 tablet by mouth twice * MELOXICAM 7.5 MG TABLET Take 1 tablet by mouth once d* ACETAMINOPHEN 325 MG TABLET Take 2 tablets by mouth every* BUDESONIDE-FORMOTEROL HFA 160* Inhale 2 Puffs as instructed * ALBUTEROL SULFATE HFA 90 MCG/* INHALE 1 PUFF BY MOUTH EVERY * DULOXETINE 60 MG CAPSULE,ISIDRO* Take 1 capsule by mouth once * Patient not taking: Reported on 12/14/2019 NORTRIPTYLINE 25 MG CAPSULE Take 1 capsule by mouth daily* Patient not taking: Reported on 12/14/2019 PANTOPRAZOLE 40 MG TABLET,DEL* Take 1 tablet by mouth daily * FLUOXETINE 40 MG CAPSULE Take 1 capsule by mouth once * Patient not taking: Reported on 12/14/2019 ONDANSETRON HCL 4 MG TABLET Take 0.5-1 tablets by mouth e* CHOLECALCIFEROL (VITAMIN D3) * Take 1 capsule by mouth once * CITRACAL + D ORAL Take by mouth once daily. [id number]* Take 1 tablet by mouth every * Problem List As Of Date 12/16/2019 Noted Resolved Secondary localized osteoarthrosis, pelvic ovidio*12/05/2005 Primary localized osteoarthrosis, lower leg [M1*12/05/2005 Primary localized osteoarthrosis, hand [M19.049]12/05/2005 Vitamin D deficiency [E55.9] 06/21/2006 Pain in thoracic spine [M54.6] 08/10/2006 Cervicalgia [M54.2] 03/22/2007 More... 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 GERD (gastroesophageal reflux disease) [K21.9] More... 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 Displacement of lumbar intervertebral disc with*01/31/2014 History of dislocation of hip [Z87.39] 07/09/2014 More... Occipital neuralgia of right side [M54.81] 02/24/2016 Iron deficiency anemia [D50.9] 03/02/2017 Current use of proton pump inhibitor [Z79.899] 03/02/2017 NEFTALY positive [R76.8] 03/27/2017 History of colonic polyps [Z86.010] 07/19/2017 Age-related osteoporosis without current pathol*10/16/2017 Encounter for screening for cardiovascular diso*01/15/2018 Encounter for screening for diabetes mellitus [*01/15/2018 COPD (chronic obstructive pulmonary disease) (H*02/05/2018 More... Abnormal stress ECG [R94.39] 02/21/2018 More... HUANG (dyspnea on exertion) [R06.00] 02/21/2018 Osteoarthritis of left hip [M16.12] 12/11/2019 Encounter Status:Closed by KAZ [facility]LIN [facility] Tele[facility] (HCSIND) Normal 12-15-2019 [facility] ARGENIS HO ([id number]) 1940 [address] [place] Date Time Provider Department ([id number]) 12/15/19 [facility] visit today, we recorded the following informati on about you: Sean Valdivia, PT, PT 12/15/2019 2:41 AM Signed Home care PT evaluation completed. Reque sting visit set of 1x1, 3x1, 2x3, 1x1. Please notify of any changes needed to visit set/poc. Thank you. Situation: PT start of care visit secondary pt is s/p L EUGENIO by Dr Berg on 12/10/19. present and supportive during start of care Background: Pt s/p L EUGENIO by Dr Berg on 12/10/19. She returned home from hospital on 12/13/19. PMH: - Age-related osteoporosis without current pathological fractu re,Brachial neuritis or radiculitis NOS1/05/2010 ,Bucket handle tear of lateral meniscus(717.41) 12/06/2003,Cervical arthritis andCervic al spondylosis without myelopathy 04/13/2007 ,Cervicalgia 03/22/2007 ,Chronic obst ructive pulmonary disease 02/05/2018,Compression fracture of lumbar spine, non-t raumatic (HCC)01/31/2014,Congenital spo ndylolisthesis 04/13/2007, depressive disorder, not elsewhere classified ,Displacement of lumbar intervertebral disc without myelopathy 01/31/2014,Ex-smoker,GERD (gastroesopha geal reflux disease)Headache, History of dislocation of hip right, Lumbago07/28/2009 ,Lumba r spinal stenosis,Lumbar spondylosis 07/28/2009 ,Microscop ic hematuria 08/20/2010,Muscle weakness,09/16/2008,Neoplasm of uncertain behavior of kidney ,Occipital neuralgia of right side,02/24/2016 Osteoporosis ,Pain in thor acic spine 08/10/2006,PELVIC FRACTURE NOS-CLOS: left pubic rami 6,Preglaucoma, unspecified 07/17/2012 ,Prima ry localized osteoarthrosis, hand ,12/05/2005,Primary localized osteoarthrosis, lower leg 12/05/2005 ,Secondary loca lized osteoarthrosis, pelvic region and thigh,12/05/2005 Tear film i nsufficiency, unspecified,06/24/2013 Vitamin D deficiency Prior level of function: pt was I with all trans fers, gait with cane, stairs, bed mobility and adls prior to surgery. She is r etired and lives with in a multilevel home with first floor set up one step to ent er. Assessment: Pt was issued admission booklet. Instructed pt o n 24 hr call number for non-emergency que stions,pt instructed to call 911 for emergencies pt instructed bill of rights and pt responsibilities, consent f orm, emergency preparedness plan, transfer/discharge policy, homebound francis cy, and ID verified. Medicine reconciliation completed. Pt is 75% wb L LE with hip precautions. Pt states her pain is well managed with medication. She is alert, oriented and cooperative. Surgical dressing intact with no s igns of drainage/infection. Pt with decreased strength and balance f rom L eugenio that limits her I with bed mobili ty, transfers, ambulation and stair negotiation. Pt has a supportive and daughters who can assist with a dls. Recommendation: PT visit set of 1x1, 3x1, 2x3, 1 x1 to address above deficits. Pt was aware and agreeable with PT POC. Armen Martincarlos has bee chapito assigned as Primary Therapist/Rn Plastics by [facility]. Allergies As of Date: 12/15/2019 Noted Allergy Reaction CYMBALTA (DULOXETINE) 01/15/2018 14 - Other: See Comments Comments: Made her feel emotionless. Date Reviewed: 12/14/2019 Reviewed by: Sean (Pt) Skip PT - Fully Assessed Reason for Visit: Home Care [[id number]] Cmt: home care PT evaluation completed Prescriptions as of 12/15/2019 Sig: ASPIRIN 81 MG TABLET,DELAYED * Take 1 tablet by mouth twice * DOCUSATE SODIUM 100 MG CAPSULE Take 1 capsule by mouth twice * OXYCODONE 5 MG TABLET Take 1-2 tablets by mouth emely* ASCORBIC ACID (VITAMIN C) 500* Take 1 tablet by mouth twice * MELOXICAM 7.5 MG TABLET Take 1 tablet by mouth once d* ACETAMINOPHEN 325 MG TABLET Take 2 tablets by mouth every* BUDESONIDE-FORMOTEROL HFA 160* Inhale 2 Puffs as instructed * ALBUTEROL SULFATE HFA 90 MCG/* INHALE 1 PUFF BY MOUTH EVERY * DULOXETINE 60 MG CAPSULE,ISIDRO* Take 1 capsule by mouth once * Patient not taking: Reported on 12/14/2019 NORTRIPTYLINE 25 MG CAPSULE Take 1 capsule by mouth daily* Patient not taking: Reported on 12/14/2019 PANTOPRAZOLE 40 MG TABLET,DEL* Take 1 tablet by mouth daily * FLUOXETINE 40 MG CAPSULE Take 1 capsule by mouth once * Patient not taking: Reported on 12/14/2019 ONDANSETRON HCL 4 MG TABLET Take 0.5-1 tablets by mouth e* CHOLECALCIFEROL (VITAMIN D3) * Take 1 capsule by mouth once * CITRACAL + D ORAL Take by mouth once daily. [id number]-[id number]* Take 1 tablet by mouth every * Problem List As Of Date 12/15/2019 Noted Resolved Secondary localized osteoarthrosis, pelvic ovidio*12/05/2005 Primary localized osteoarthrosis, lower leg [M1*12/05/2005 Primary localized osteoarthrosis, hand [M19.049]12/05/2005 Vitamin D deficiency [E55.9] 06/21/2006 Pain in thoracic spine [M54.6] 08/10/2006 Cervicalgia [M54.2] 03/22/2007 More... 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 GERD (gastroesophageal reflux disease) [K21.9] More... 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 Displacement of lumbar intervertebral disc with*01/31/2014 History of dislocation of hip [Z87.39] 07/09/2014 More... Occipital neuralgia of right side [M54.81] 02/24/2016 Iron deficiency anemia [D50.9] 03/02/2017 Current use of proton pump inhibitor [Z79.899] 03/02/2017 NEFTALY positive [R76.8] 03/27/2017 History of colonic polyps [Z86.010] 07/19/2017 Age-related osteoporosis without current pathol*10/16/2017 Encounter for screening for cardiovascular diso*01/15/2018 Encounter for screening for diabetes mellitus [*01/15/2018 COPD (chronic obstructive pulmonary disease) (H*02/05/2018 More... Abnormal stress ECG [R94.39] 02/21/2018 More... HUANG (dyspnea on exertion) [R06.00] 02/21/2018 Osteoarthritis of left hip [M16.12] 12/11/2019 Encounter Status:Closed by SEAN VALDIVIA on 12/15/19 progress on 2019-12 PROGRESS HNO ID: [id number] Normal 12-13-2019 [facility] Author: Casa (Res) Dereje Bass ([id number]) Service: Orthopaedic Surgery Author Type: Resident Type: Progress Notes Filed: 12/13/2019 6:49 AM Note Text: ORTHOPAEDIC SURGERY PROGRESS NOTE December 11, 2019 7:33 AM Procedure: Procedure(s) and Anesthesia Type: * ARTHROPLASTY REPLACE JOINT TOTAL HIP - General (Date: 2019) Subjective: No issues. Pain controlled, no nausea/vomiting. No CP, no SOB. Wants to go home. Vitals: BP 122/52 Pulse 106 Temp 37.7 ?C (99.9 ?F) (Oral ) Resp 17 SpO2 93% Intake/Output Summary (Last 24 hours) at 12/13/2019 0648 Last data filed at 12/12/2019 1807 Gross per 24 hour Intake 0 ml Output 950 ml Net -950 ml Physical Examination: General: alert/oriented x3, in no apparent distress Pain on palpation of sternum. Lower Ext: Dressing CDI LLE: 5/5 ankle plantar/dorsiflex RLE: 5/5 ankle plantar/dorsiflex SILT saphenous, PFCN, LFCN, sural, DP, SP, plantar (L1-S1 in tact) 2+ DP, PT pulses bilat, feet/toes warm bilat; <2sec CR Lab: CBC, Coags, BMP, Mg, Phos Recent Labs 12/11/19 1312 12/11/19 0125 WBC -- 13.19* HB -- 10.3* HCT -- 32.1* PLT -- 182 NA 136 134* K 3.7 5.6* CHLOR 98 102 CO2 26 15* BUN 10 12 CREAT 0.56* 0.60 GLUC 141* 113* CA 8.6 8.6 Impression/Plan: s/p left EUGENIO 12-09 - PT/OT: 75% WB - Diet: regular - Pain control: IV and PO prn - Dressing management: to remain for 7 days - DVT prophylaxis: IPCD and lovenox - Antibiotic: IV ancef 24h - Case management for discharge planning -AMET for CP, non ischemic in nature, has baseline COPD - Disposition: DC home today, pain control, gómez out. Casa Reyez MD Orthopaedic Surgery, PGY-4 Pager: [phone] After 6p and weekends page 2-BONE case managem on CASE MANAGEM HNO ID: [id number] Normal 12-13-19 [facility] Author: Michael (Sw) Arthur Bass ([id number]) Service: Care Management Author Type: Field Property Loss Specialist Type: Care Mgt Progress Note Filed: 12/13/2019 11:50 AM Note Text: CARE MANAGEMENT DISCHARGE NOTE SERVICE DATE: 12/13/2019 SERVICE TIME: 11:49 AM LOS: 2 days Admission Date: 12/10/2019 DISCHARGE ARRANGEMENT (list agency and phone number) Discharge Arrangement: Home Care;Home Home Care: PT CAREGIVER ASSESSMENT: Caregiver is ready, willing and able to meet the patient's n eeds as recommended by the inter-professional team:: Yes Does the patient have an acute stroke diagnosis, or has the patient had a stroke during this admission?: No Patient's transition needs and plan for meeting these needs: Pt and daughter aware of D/C plan and are in agreement. HANDOFF COMMUNICATION: Handoff to: Other Caregiver Other Caregiver Name/Phone: [facility] Care TRANSPORTATION ARRANGEMENTS: Transportation Arrangements: Car Discharge Information Row Name Admission (Current) from 12/10/2019 in [facility] H060 Home Health Care Agency [facility] Home Care Start of Care ? 24-48 Hours Needs Prior to Discharge: None;Ready for Discharge IMM Follow Up Copy Given: Yes Copy given to:: Patient Registered Dietitian Registered Dietitian Name/Relationship: Coby Starr Method: By Phone Patient is medically cleared for discharge. Plan for [facility] for home PT. SOC 24-48 hours. Discharge instructions se nt to [facility] via allscripts. KATELYN called coby Starr Franky who is aware and in agreement with D/C plan. Pt to be transported home vi a family auto. No further needs. Patient agreed to plan. SIGNATURE: BRIGITTE Richardson, GERIATRIC NURSE PRACTITIONER PATIENT NAME: An Ho DATE: December 13, 2019 TIME: 11:49 AM PAGER/CONTACT #: therapy nt on 12-11 THERAPY HNO ID: [id number] Normal 12-12-2019 [facility] Author: Lisa ([facility] Service: Occupational Therapy [facility] Author Type: Occupational Therapist ([id number]) Type: Therapy (PT/OT/Speech/Resp) Filed: 12/12/2019 2:27 PM Note Text: Occupational Therapy Evaluation SERVICE DATE: 12/12/2019 SERVICE TIME: 1040 to 1105 ROOM: [place] [address] Recommended Discharge Disposition: Home Anticipated Discharge Needs: Physical Assist at Home Physical Assist at Home for: Self Care;Meals;Laundry;Cleaning;Shopping;Transportation OT Recommendations to Nursing: To Bathroom for ADL?s /and or Toileting;With assist of 1 person OT 6 Clicks Score: 19 Precautions/Activity Restrictions: Total Hip Replacement;José ght Bearing Restrictions;Lines/Tubes/Drains Precaution/Activity Restriction Comments: IV, gómez catheter Extremity With Weight Bearing Restricted: Left Lower Extremi ty Left Lower Extremity Weight Bearing Status: 75% PWB Total Hip Replacement Precautions: Lateral ASSESSMENT: Patient presents with L EUGENIO. Pt needed mod persuasion to par ticipate in OT session. Despite OT education, pt was not interested in lear zander how to use long handled AE for LE ADLs. Pt states that her spouse w ill help Patient Disposition at Start of Session: Supine in Bed Patient Disposition at End of Session: Call Desouza in Reach;OO B in Chair Tolerated Full Session Occupational Therapy Problem List: Education Deficit;Impaire d Self Care;Functional Mobility Impairment Patient /Caregiver Goals: Go Home;Walk Goals for Plan of Care: Grooming with: Verbal Cues Only Lower Body Dressing with: Verbal Cues Only Toilet Hygiene with: Verbal Cues Only Chair Transfer with: Supervision Toilet Transfer with: Supervision Additional Goal 1: (Bed mobility to CGA in preparation for A DLs) Demonstrate Competence With Education with: Modified Indepen dent Progress Toward Goals: Progressing as expected Rehab Potential: Good PLAN: Treatment Frequency (times per week): 2 Current admission Treatment Interventions: Education;Self Care / Home Manageme nt;Functional Mobility Training Plan of Care developed with: Patient TREATMENT INTERVENTIONS: Therapy Diagnosis: Reduced mobility-other;Decreased activiti es of daily living (ADL) Interventions Provided: Evaluation;Self Mcfp Management (29178) $ Evaluation-Moderate (74507) Billed Units: 1 unit Self Mcfp Management (92658) Treatment Minutes: 10 1 unit Skilled Intervention(s): Education in - Educated pt on role of OT, POC and recs. Educated on post op EUGENIO precs; WB status and application of such to ADL's and functional mobil ity. Pt provided with booklet which was reviewed in detail Bed mobility-pt educated on technique and sequencing. Mod A and mod verbal Cues provided for proper technique and not to twist Pt educated on pursed lip breathing techniques, demo such to pt and explained benefits/purpose. Pt able to perform with cues pro vided throughout session for application Functional transfers- Min A and min vc's-pt instructed to pu sh with UE's from stable surface versus pulling on walker. Instructed to feel surface posterior to legs prior to reaching back with UE's in prep f or sitting. Pt cued for surgical leg positioning during such transfer. Pt a dhering to WB status, reinforced bearing down with UE's through walker to support WB restrictions. Educated on LB ADL techniques. Educated on stafe tech for LB ADL's with instruction to dress surgical leg first and undress such las t. Instructed in post-op instructions during ADLs; Initially pt able to ve rbalize 2/3 (posterior) EUGENIO prec. After OT intervention/instruction Pt able to verb and demo 3 /3 EUGENIO prec. OT inst pt in use of sock aid,dressing stick and reachers fo r LE ADLs. Pt needed Min A to lift up L foot for dressing and set up/ v c's to doff/don B socks, pants. OT inst pt in purchasing info for ADL kit but pt was not int erested Total Timed Code Treatment Minutes: 10 Total Treatment Time (minutes): 10 SUBJECTIVE: Current Hospital Course: Chart reviewed; - s/p left EUGENIO 6-9 ? - PT/OT: 75% WB -AMET for CP, non ischemic in nature, has baseline COPD Relevant Past Medical History: COPD, major depressive disord er, OA, Patient Report: I've had many hip surgeries. I won't need those tools Home Environment Patient Lives With: Spouse Assistance Available: 24 Hour Entry To Home: Stairs;Without Rail(wide platform steps) Number Of Stairs Into Home: 2 Number Of Stairs To Bed/Bath: 0 Equipment Owned: Cane;Crutch(es);Wheeled Walker;Shower Bench ;Elevated Toilet Seat;Commode-Raised Prior Functional Level: Within Functional Limits Prior Functional Level Comments: Patient reports she was mod ified independent using a wheeled walker. OBJECTIVE: Cognition/Communication Deficits Responsiveness: Alert;Awake Follows Commands: 3-step Commands CURRENT FUNCTIONAL STATUS: Current Activities of Daily Living Assist Level Feeding Independent Grooming Stand By Assistance Bathing Upper Body Set Up Bathing Lower Body Maximal Assistance Dressing Upper Body Set Up Dressing Lower Body Maximal Assistance Toileting Minimal Assistance Instrumental Activities of Daily Living Assist Level Meal/Beverage Prep Light Cleaning Laundry Medication Management with Strategies Functional Mobility Assist Level Rolling Supine to Sit Moderate Assistance Sit to Supine Scooting Minimal Assistance Sit to Stand Minimal Assistance Stand to Sit Contact Guard Assistance Bed to Chair Contact Guard Assistance Toilet/Commode Contact Guard Assistance Functional Mobility Wheeled Walker Please see discipline specific clinical documentation [facility] for complete details for this therapy evaluation/treatment. SIGNATURE: RIAN Gomes/Mikel PATIENT NAME: Argenis Ho DATE: December 12, 2019 TIME: 2:22 PM THERAPY HNO ID: [id number] [place] 12-12-2019 [facility] Author: Tdo Paz[facility]: [facility] Therapy [facility] Author Type: Cook Manager ([id number]) Type: Therapy (PT/OT/Speech/Resp) Filed: 12/12/2019 10:06 AM Note Text: Attestation signed by Ildefonso Weinstein at 12/12/2019 2:06 PM I reviewed and agree with the documentation corresponding to this therapy visit. SIGNATURE: Ildefonso Weinstein, PT DATE: December 12, 2019 TIME: 2:06 PM Physical Therapy Treatment SERVICE DATE: 12/12/2019 SERVICE TIME: 0858 to 0936 ROOM: [place] [address] Recommended Discharge Disposition: Home PT Recommended Discharge Disposition Comments: Patient would be nefit from assistance at home due to recent left total hip arthroplasty revision. Anticipated Discharge Needs: Physical Assist at Home Physical Assist at Home for: Cleaning;Laundry;Meals;Stairs;S afety;Self Care;Shopping;Transportation Recommended Discharge Equipment: No equipment needs anticipa christian PT Recommendations to Nursing: Ambulate with device;To bathr oom;Transfer to/from chair;OOB for Meals;With assist of 1 person Device: Wheeled Walker PT 6 Clicks Score: 18 Precautions/Activity Restrictions: Total Hip Replacement;José ght Bearing Restrictions;Lines/Tubes/Drains Precaution/Activity Restriction Comments: IV, gómez catheter Extremity With Weight Bearing Restricted: Left Lower Extremi ty Left Lower Extremity Weight Bearing Status: 75% PWB Total Hip Replacement Precautions: Lateral ASSESSMENT : Limited by fatigue, but note patient able to complete sessio n with breaks as needed. Safely managed curb step training with wheeled wa lker use. Will recommend family assist to maximize safety with this activit y. Limited gait distance noted, but note patient was steady with walker use. Anticipate patient to continue progressing with gait. Able t o verbalize all precautions with very minimal cueing. At this time hesham nt appears appropriate for current home PT recs based on performance. O k for d/c today from a PT standpoint. Continue per care plan. Patient Disposition at Start of Session: Supine in Bed Patient Disposition at End of Session: Supine in Bed;Call Be ll in Reach Tolerance Limited By Fatigue Physical Therapy Problem List: Pain;Decreased Strength;Funct ional Mobility Impairment;Balance Impaired Patient /Caregiver Goals: Go Home Goals for Plan of Care: Able to perform HEP with: Set Up Transfer supine to/from sit with: Stand By Assistance Transfer sit to/from stand with: Stand By Assistance Ambulate with: Stand By Assistance Distance: 2x75 Device: Wheeled Walker Ambulate up and down curb step with: Contact Guard Assistanc e Device: Wheeled Walker Car transfer with: Minimal Assistance Progress Toward Goals: Progressing as expected Rehab Potential: Good PLAN: Treatment Frequency (times per week): 7 Current admission Treatment Interventions: Education;Joint Mobility;Strengthen ing;Functional Mobility Training;Balance Training Plan of Care developed with: Patient TREATMENT INTERVENTIONS: Therapy Diagnosis: Reduced mobility-other Interventions Provided: Therapeutic Exercise (81658);Therape utic Activity (98949);Gait Training (74481) Therapeutic Exercise (47529) Treatment Minutes: 18 1 unit Skilled Intervention(s): Education in HEP. Went over appropr iate exercises and to monitor/modify tech if pain occurs. Able to perform b rief warm up exercises prior to performing mobility. Recommended home PT to progress exercises with patient once home Patient agreeable. Went ove r current precautions and the importance of adherence. Patient able to verbalize all without much cueing. Touched on plan of care and the benefit s of home PT. Patient agreeable. Therapeutic Activity (31543) Treatment Minutes: 10 1 unit Skilled Intervention(s): Instructed patient in supine to sit pushing with upper extremities to sit up Instructed patient in sit to supine using safe, effective te chnique with scooting up bed. Instruction in sit to stand technique with proper hand place ment and body positioning at edge of bed/chair. Proper hand placement and LE placement noted with cues. Instruction in stand to sit technique with lower extremities touching chair/bed and reaching back for surface. Cues to reinforce p hortensia LE placement and controlled descent with sitting down. Education with simulated car transfers with proper use of wa lker, w/c set up, backing onto seat with potential for boost up (going to ride in SUV when d/c'd), proper family support with guarding LE's, seat set up, and scooting tech/hand placement. Patient states family will pro vide assist and that she'll be comfortable with performing task. Gait Training (88070) Treatment Minutes: 10 1 unit Skilled Intervention(s): Instruction in correction of gait d eviations with limited distance due to fatigue. Recommending continued gait at home and to build up distances appropriately. Patient agreeable. Focu sed on curb step training on 8 platform step. Required only CGA for marito adying support and support on walker with ascent and descent. Cues on walke r and step sequencing. Patient appears safe. Recommended family assist when performing this activity at home. Patient agreeable. Back to bed post curb step training. Positioned for comfort. No complaints upon completing PT session. At this time patient appears tyrese ropriate for d/c home today from a mobility standpoint. Anticipating d/c once medically cleared. Total Timed Code Treatment Minutes: 38 Total Treatment Time (minutes): 38 SUBJECTIVE: Current Hospital Course: Chart reviewed and no significant m edical updates relevant to therapy were noted. 6/11 AMET this morning for c hest pain (see Epic for details). Ok to see for PT now. Reason for Physical Therapy Consult : Post musculoskeletal s urgery care. Relevant Past Medical History: COPD, major depressive disord er, OA, Patient Report: Tired but feels better. Home Environment Patient Lives With: Spouse Assistance Available: 24 Hour Entry To Home: Stairs;Without Rail(wide platform steps) Number Of Stairs Into Home: 2 Number Of Stairs To Bed/Bath: 0 Equipment Owned: Cane;Crutch(es);Wheeled Walker;Shower Bench ;Elevated Toilet Seat Prior Functional Level: Within Functional Limits Prior Functional Level Comments: Patient reports she was mod ified independent using a wheeled walker. OBJECTIVE: CURRENT FUNCTIONAL STATUS: Current Functional Mobility Assist Level Additional Informat ion Rolling Supine to Sit Minimal Assistance Sit to Supine Minimal Assistance(/contact guard assist) Scooting Minimal Assistance Sit to Stand Contact Guard Assistance Stand to Sit Contact Guard Assistance Bed to Chair Contact Guard Assistance(/stand by assist) Bed To Chair Transfer Type: Stand Pivot Bed To Chair Transfer Equipment: Wheeled Walker Toilet/Commode Gait Contact Guard Assistance Gait Device: Wheeled Walker Gait Distance (feet): 8 feet Stairs Curb Step Contact Guard Assistance(on 8 curb step which sim ulates home set up. ) Wheeled Walker Car Transfer (no demo, but provided in depth education on te ch/safety. ) Gait Deviations Left Lower Extremity: Foot clearance decreas ed;Stance time decreased;Step length decreased;Weight bearing decreased General Deviations/Observations: Yanni decreased;Non-funct ional gait speed;Step length decreased JH-HLM: 6: Walk 10 steps or more Please see discipline specific clinical documentation [facility] for complete details for this therapy evaluation/treatment. SIGNATURE: Tod Stewart PTA PATIENT NAME: Argenis Ho DATE: December 12, 2019 TIME: 9:53 AM progress on 2019-12 PROGRESS HNO ID: [id number] Normal 12-12-2019 [facility] Author: Casa (Res) Dereje Bass ([id number]) Service: Orthopaedic Surgery Author Type: Resident Type: Progress Notes Filed: 12/12/2019 7:07 AM Note Text: ORTHOPAEDIC SURGERY PROGRESS NOTE December 11, 2019 7:33 AM Procedure: Procedure(s) and Anesthesia Type: * ARTHROPLASTY REPLACE JOINT TOTAL HIP - General (Date: 2019) Subjective: No issues. Pain controlled, no nausea/vomiting. Pain in middle of chest, no SOB. Vitals: BP 121/58 Pulse 101 Temp 37.1 ?C (98.8 ?F) (Oral ) Resp 17 SpO2 91% Intake/Output Summary (Last 24 hours) at 12/12/2019 0703 Last data filed at 12/12/2019 0627 Gross per 24 hour Intake 520 ml Output 2550 ml Net -2030 ml Physical Examination: General: alert/oriented x3, in no apparent distress Pain on palpation of sternum. Lower Ext: Dressing CDI LLE: 5/5 ankle plantar/dorsiflex RLE: 5/5 ankle plantar/dorsiflex SILT saphenous, PFCN, LFCN, sural, DP, SP, plantar (L1-S1 in tact) 2+ DP, PT pulses bilat, feet/toes warm bilat; <2sec CR Lab: CBC, Coags, BMP, Mg, Phos Recent Labs 12/11/19 1312 12/11/19 0125 WBC -- 13.19* HB -- 10.3* HCT -- 32.1* PLT -- 182 NA 136 134* K 3.7 5.6* CHLOR 98 102 CO2 26 15* BUN 10 12 CREAT 0.56* 0.60 GLUC 141* 113* CA 8.6 8.6 Impression/Plan: s/p left EUGENIO 6-9 - PT/OT: 75% WB - Diet: regular - Pain control: IV and PO prn - Dressing management: to remain for 7 days - DVT prophylaxis: IPCD and lovenox - Antibiotic: IV ancef 24h - Case management for discharge planning -AMET for CP, non ischemic in nature, has baseline COPD - Disposition: DC home today pending PT/OT clearance, pain c ontrol, gómez out. Casa Reyez MD Orthopaedic Surgery, PGY-4 Pager: [phone] After 6p and weekends page 2-BONE nursing prog on NURSING HNO ID: [id number] Normal 12-12-2019 [facility] Author: Tierney TapiaRn) DARYL Gallegos [facility] Service: Nursing [facility] Author Type: Registered Nurse ([id number]) Type: Nursing Progress Note Filed: 12/12/2019 7:52 AM Note Text: Nursing Progress Note Patient Name: Argenis Ho Patient Location: [place] [address] Event(s) / Intervention Note: The patient complained of the following problems: chest pain . The time of the event occurred at: 0640. The following intervention(s) were initiated: Ortho ([id number]) notified, AMET at bedside, oxygen via nasal cannula applied, EKG ordered. After the initiated interventions, the following observation (s) were made: physician is at bedside. Oxycodone given. Will continue to o bserve and check with patient.. This note was completed by: DARYL Dial on MEDICAL RICKEY HNO ID: [id number] Normal 12-12-19 [facility] Author: Chanell Suarez Bass ([id number]) Service: Anesthesiology Author Type: Physician Type: Chg in Clinical Condition Filed: 12/12/2019 6:46 AM Note Text: MEDICAL EMERGENCY TEAM AMET CODE STATUS: Code Status: Not on file BACKGROUND 79 yo F w/ COPD, GERF, major depressive disorder POD#2 s/p L EUGENIO REASON FOR CALL Cardiac: Patient complaint of Chest Pain ASSESSMENT Patient reports chest pain located in the center of her ches t, non-radiating, worse with inspiration. Pain has been present since yesterday afternoon after PT. EKG showed no evidence of acut e ischemia. Patient denies dyspnea, light-headedness, or dizziness. Geovanni mmend giving dose of prn roxicodone as likely not cardiac in nature. No f urther intervention from AMET at this time. INTERVENTIONS Monitoring Pulse Oximetry and Telemetry Monitoring DISPOSITIONS Improved Primary Team Notified: Yes PAST MEDICAL / SURGICAL HISTORY PAST MEDICAL HISTORY Diagnosis Date - Abnormal stress test Cardiac cath was negative - Age-related osteoporosis without current pathological frac ture 10/16/2017 - Brachial neuritis or radiculitis NOS 05/13/2010 - Bucket handle tear of lateral meniscus(717.41) 12/05/2005 - Cervical arthritis - Cervical spondylosis without myelopathy 04/13/2007 - Cervicalgia 03/22/2007 - Chronic obstructive pulmonary disease (HCC) 02/05/2018 - Compression fracture of lumbar spine, non-traumatic (HCC) 01/31/2014 - Congenital spondylolisthesis 04/13/2007 - Depressive disorder, not elsewhere classified - Displacement of lumbar intervertebral disc without myelopa thy 01/31/2014 - Ex-smoker - GERD (gastroesophageal reflux disease) - Headache 07/17/2012 - History of dislocation of hip 07/09/2014 right - Lumbago 07/28/2009 - Lumbar spinal stenosis - Lumbar spondylosis 07/28/2009 - Microscopic hematuria 08/20/2010 - Muscle weakness (generalized) 09/16/2008 - 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 - COLONOSCOP W/ OR W/O [facility] SPEC Colonoscopy - CYSTO.PANENDO Cystoscopy - KNEE SCOPE,DIAGNOSTIC 06/2010 Arthroscopy, knee - PAST SURGICAL HISTORY OF R THR x 3 - PAST SURGICAL HISTORY OF Bilat TKR - PAST SURGICAL HISTORY OF L Hip pinning (later removed) - PAST SURGICAL HISTORY OF Heart Cath - PAST SURGICAL HISTORY OF Dilation of left ureter - PAST SURGICAL HISTORY OF 05/13 L knee revision - PAST SURGICAL HISTORY OF 2014 R THR - Brandi - PAST SURGICAL HISTORY OF Right 07/2014 total hip replacement AIRWAY HISTORY Not available Difficult Airway: Unknown PERTINENT PHYSICAL EXAM and INITIAL ASSESSMENT (For vital signs prior and during MET call, see nursing docu mentation) Pertinent Vital Signs at Time of MET Call: see AMET RN flows heet Appearance: Alert and Mild distress Airway Patent: Yes Breathing Evaluation: Normal Neurologic Evaluation: GCS Evaluation: 4. Spontaneous, 5: Or iented 6: Obeys Motor commands Is the Level of Consciousness at Baseline: Yes Peripheral 12/10/19 0840 Short Left Forearm 20 Gauge (Active ) Placement Date/Time: 12/10/19 0840 Type of Peripheral Line: Short Location: Left Insertion Site: Forearm Size: 20 Gauge Peripheral 12/10/19 1214 Assessment Short Left Forearm 18 Ga uge (Active) Placement Date/Time: 12/10/19 1214 Line, Drain, Airway Prese nt on: Assessment Type of Peripheral Line: Short Location: Left Ins ertion Site: Forearm Size: 18 Gauge PERTINENT DIAGNOSTICS Diagnostic Tests Reviewed: Most recent labs Most recent EKG: NSR Primary Team Aware/Notified: Yes Critical Care Time: I personally spent 30 minutes directly s upervising and providing non-critical care to the patient as noted above.. I have reviewed, approved and signed the paper MET note. Ple ase refer to this for complete orders and nursing/respiratory documentati on. SIGNATURE: Chanell Suarez MD PATIENT NAME: Argenis Ho DATE: December 12, 2019 TIME: 6:43 AM PAGER: [email or web address] on 2019-12-12 EKG1 NAME : ARGENIS HO 12-12-2019 [facility] PID : [id number] Praveen payton ([id number]) : 1940 Gender : Female Race : ORD : Procedure Date : Dec 12 2019 06:30:04 Edit Date : Dec 19 2019 09:38:50 Diagnosis:SINUS TACHYCARDIA LEFT VENTRICULAR HYPERTROPHY WITH REPOLARIZATION ABNORMALITY ( Sokolow-Jacob ) ABNORMAL ECG Confirmed by FANTASMA LOPEZ MD ([id number]) on 12/19/2019 9:36: 43 AM Ventricular Rate : 101 BPM Atrial Rate : 101 BPM P-R Interval : 196 ms QRS Duration : 70 ms Q-T Interval : 348 ms QTC Calculation(Bazett) : 451 ms P [place] : 42 degrees R [place] : 49 degrees T [place] : 168 degrees Test Reason : AMET Location : 63 : 0 [id number] Overread By : FANTASMA LOPEZ MD Edited By : FANTASMA LOPEZ MD Referred By : , Acquired by : YOLIS PECK case managem on CASE MANAGEM HNO ID: [id number] Normal 12-12-19 [facility] Author: Michael Bass (Sw) ([id number]) Service: Care Management Author Type: Field Property Loss Specialist Type: Care Mgt Progress Note Filed: 12/12/2019 12:27 PM Note Text: CARE MANAGEMENT DISCHARGE NOTE SERVICE DATE: 12/12/2019 SERVICE TIME: 12:21 PM LOS: 1 day Admission Date: 12/10/2019 DISCHARGE ARRANGEMENT (list agency and phone number) Discharge Arrangement: Home Care;Home Home Care: PT CAREGIVER ASSESSMENT: Caregiver is ready, willing and able to meet the patient's n eeds as recommended by the inter-professional team:: Yes Does the patient have an acute stroke diagnosis, or has the patient had a stroke during this admission?: No Patient's transition needs and plan for meeting these needs: Pt and daughter aware of D/C plan and are in agreement. HANDOFF COMMUNICATION: Handoff to: Other Caregiver Other Caregiver Name/Phone: [facility] TRANSPORTATION ARRANGEMENTS: Transportation Arrangements: Car Discharge Information Row Name Admission (Current) from 12/10/2019 in HOSP MAIN H060 Home Health Care Agency [facility] [place] [facility] Care Start of Care ? 24-48 Hours Needs Prior to Discharge: None;Ready for Discharge IMM Follow Up Copy Given: Yes Copy given to:: Patient Method: In Person Patient is medically cleared for discharge. Plan for [facility] for home PT. SOC 24-48 hours. Discharge instructions nt to [facility] via allscripts. SW called daughter Ro Wilkins who is aware and in agreement with D/C plan. Pt to be transported home vi a family auto. No further needs. Patient agreed to plan. SIGNATURE: BRIGITTE Richardson, GERIATRIC NURSE PRACTITIONER PATIENT NAME: An Ho DATE: December 12, 2019 TIME: 12:21 PM PAGER/CONTACT #: therapy nt on 12-10 THERAPY HNO ID: [id number] Normal 12-11-2019 [facility] NT Author: October (Pt) [facility] Service: Physical Therapy Valentine Author Type: Physical Therapist ([id number]) Type: Therapy (PT/OT/Speech/Resp) Filed: 12/11/2019 4:52 PM Note Text: Physical Therapy Evaluation SERVICE DATE: 12/11/2019 SERVICE TIME: 1520 to 1601 ROOM: [place] [address] Recommended Discharge Disposition: Home PT Recommended Discharge Disposition Comments: Patient would be nefit from assistance at home due to recent left total hip arthroplasty revision. Anticipated Discharge Needs: Physical Assist at Home Physical Assist at Home for: Cleaning;Laundry;Meals;Stairs;S afety;Self Care;Shopping;Transportation Recommended Discharge Equipment: No equipment needs anticipa christian PT Recommendations to Nursing: Ambulate with device;To bathr oom;Transfer to/from chair;OOB for Meals;With assist of 1 person Device: Wheeled Walker PT 6 Clicks Score: 17 Precautions/Activity Restrictions: Total Hip Replacement;José ght Bearing Restrictions;Lines/Tubes/Drains Precaution/Activity Restriction Comments: IV, gómez catheter Extremity With Weight Bearing Restricted: Left Lower Extremi ty Left Lower Extremity Weight Bearing Status: 75% PWB Total Hip Replacement Precautions: Lateral ASSESSMENT : Patient presents with impaired gross mobility, restricted ra nge of motion and weight bearing ability on left lower extremity due to re cent left total hip arthroplasty revision. Patient with limited mobili ty this session, wants discharge tomorrow after am therapy session. Requires skilled PT for safe progression of exercise, activity and fu nctional mobility while maintaining hip precautions and 75% weight be aring on L LE.. Patient Disposition at Start of Session: Supine in Bed;Call Desouza in Reach;Bed Alarm Patient Disposition at End of Session: OOB in Chair;Call Bel l in Reach Tolerated Full Session Physical Therapy Problem List: Pain;Decreased Strength;Funct ional Mobility Impairment;Balance Impaired Patient /Caregiver Goals: Go Home Goals for Plan of Care: Able to perform HEP with: Set Up Transfer supine to/from sit with: Stand By Assistance Transfer sit to/from stand with: Stand By Assistance Ambulate with: Stand By Assistance Distance: 2x75 Device: Wheeled Walker Ambulate up and down curb step with: Contact Guard Assistanc e Device: Wheeled Walker Car transfer with: Minimal Assistance Rehab Potential: Good PLAN: Treatment Frequency (times per week): 7 Current admission Treatment Interventions: Education;Joint Mobility;Strengthen ing;Functional Mobility Training;Balance Training Plan of Care developed with: Patient TREATMENT INTERVENTIONS: Therapy Diagnosis: Reduced mobility-other Interventions Provided: Evaluation;Therapeutic Exercise (40495);Therapeutic Activity (42604) $ Evaluation-Moderate (46394) Billed Units: 1 unit Therapeutic Exercise (67090) Treatment Minutes: 13 1 unit Skilled Intervention(s): Instruction in therapeutic exercise for antiembolic exercises and seated EUGENIO exercises. Verbal and tactile cuing provided for above exercises. Facilitation of muscle control, optimal recruitment and alig nment to perform heel slids, SAQ. Patient required minimal assistance due to pain and muscle weakness. Therapeutic Activity (55040) Treatment Minutes: 13 1 unit Skilled Intervention(s): Instructed patient in supine to sit pushing with upper extremities to sit up and pivot to the edge of the bed maintaining EUGENIO precautions. Instructed patient in sit to supine using safe, effective te chnique. Instruction in sit to stand technique with proper hand place ment and body positioning at edge of bed/chair to transfer safely. Instruction in stand to sit technique with lower extremities touching chair/bed and reaching back for surface to lower self to sun face with a controlled descent. Education with patient regarding plan of care, discharge rec ommendation, total joint booklet, increasing out of bed activity as zach ated with assistance, use of wheeled walker, 75% weight bearing on L L E, lateral hip precautions. Total Timed Code Treatment Minutes: 26 Total Treatment Time (minutes): 41 SUBJECTIVE: Current Hospital Course: Chart reviewed; 79 year old female admitted for failed left total hip arthroplasty, s/p revision. Reason for Physical Therapy Consult : Post musculoskeletal s urgery care. Relevant Past Medical History: COPD, major depressive disord er, OA, Patient Report: I'm ready to get out of this bed. Home Environment Patient Lives With: Spouse Assistance Available: 24 Hour Entry To Home: Stairs;Without Rail(wide platform steps) Number Of Stairs Into Home: 2 Number Of Stairs To Bed/Bath: 0 Equipment Owned: Cane;Crutch(es);Wheeled Walker;Shower Bench ;Elevated Toilet Seat Prior Functional Level: Within Functional Limits Prior Functional Level Comments: Patient reports she was mod ified independent using a wheeled walker. OBJECTIVE: CURRENT FUNCTIONAL STATUS: Current Functional Mobility Assist Level Additional Informat ion Rolling Supine to Sit Minimal Assistance HOB elevated, use of bed ra il, assist for L LE Sit to Supine Scooting Minimal Assistance to edge of bed Sit to Stand Contact Guard Assistance instruction for hand p lacement, precautions and safety Stand to Sit Contact Guard Assistance same as above Bed to Chair Contact Guard Assistance Bed To Chair Transfer Type: Stand Pivot Bed To Chair Transfer Equipment: Wheeled Walker Toilet/Commode Gait Minimal Assistance Gait Device: Wheeled Walker Gait Distance (feet): 4 Stairs Curb Step Car Transfer Gait Deviations Left Lower Extremity: Step length decreased; Stance time decreased;Weight bearing decreased General Deviations/Observations: Yanni decreased;Step sharron th decreased Balance: Static Sitting;Dynamic Sitting;Static Standing;Nely james Standing Static Sitting Balance: Good Patient able to maintain balanc e without handhold support, limited postural sway Dynamic Sitting Balance: Fair Patient accepts minimal challe nge, able to maintain balance while turning head/trunk Static Standing Balance: Fair Patient able to maintain masha ce with handhold support, may require occasional minimal assistance Dynamic Standing Balance: Fair Patient accepts minimal chall enge, able to maintain balance while turning head/trunk JH-HLM: 5: Standing (1 or more minutes) Please see discipline specific clinical documentation [facility] for complete details for this therapy evaluation/treatment. SIGNATURE: Corrie Ernandez PT PATIENT NAME: Argenis Ho DATE: December 11, 2019 TIME: 4:47 PM THERAPY HNO ID: [id number] Normal 12-11-2019 Valentine NT Author: October (Pt) [facility] Service: Physical Therapy Valentine Author Type: Physical Therapist ([id number]) Type: Therapy (PT/OT/Speech/Resp) Filed: 12/11/2019 9:53 AM Note Text: PHYSICAL THERAPY MISSED VISIT SERVICE DATE: 12/11/2019 SERVICE TIME: 0950 to 0950 ROOM: [place] [address] Attempted Evaluation. Patient not seen due to Declined. Lori ent declined due to pain. Patient requesting that therapy return this aft diane. PT will follow up per patient request. SIGNATURE: October ARLYN Ernandez PATIENT NAME: Argenis Jensen [place] DATE: December 11, 2019 TIME: 9:52 AM THERAPY HNO ID: [id number] [place] 12-11-2019 [facility] Author: Lisa Ac [facility] Service: Occupational Therapy Valentine Author Type: Occupational Therapist ([id number]) Type: Therapy (PT/OT/Speech/Resp) Filed: 12/11/2019 8:39 AM Note Text: OCCUPATIONAL THERAPY MISSED VISIT SERVICE DATE: 12/11/2019 SERVICE TIME: 0838 to 0838 ROOM: [place] [address] Attempted Evaluation. Patient not seen due to Declined(too m uch pain). SIGNATURE: RIAN Gomes/Mikel PATIENT NAME: Argenis Jensen [place] DATE: December 11, 2019 TIME: 8:39 AM THERAPY HNO ID: [id number] [place] 12-11-2019 [facility] Author: October (Pt) [facility] Service: Physical Therapy Valentine Author Type: Physical Therapist ([id number]) Type: Therapy (PT/OT/Speech/Resp) Filed: 12/11/2019 8:33 AM Note Text: PHYSICAL THERAPY MISSED VISIT SERVICE DATE: 12/11/2019 SERVICE TIME: 0825 to 0830 ROOM: [place] [address] Attempted Evaluation. Patient not seen due to Declined(Due t o pain 02/09 in L hip and headache.). Patient receiving pain medication at t his time. Patient requests PT follow up after the pain medication has taken effect. PT will follow up as schedule permits. SIGNATURE: Corrie Ernandez PT PATIENT NAME: Argenis Jensen [place] DATE: December 11, 2019 TIME: 8:32 AM progress on 2019-12 PROGRESS HNO ID: [id number] Normal 12-11-2019 [facility] Author: Stu Richardson [place] ([id number]) Service: Orthopaedic Surgery Author Type: Resident Type: Progress Notes Filed: 12/11/2019 7:34 AM Note Text: ORTHOPAEDIC SURGERY PROGRESS NOTE December 11, 2019 7:33 AM Procedure: Procedure(s) and Anesthesia Type: * ARTHROPLASTY REPLACE JOINT TOTAL HIP - General (Date: 2019) Subjective: No issues. Pain controlled, no nausea/vomiting, no chest pain, no shortness of breath. Vitals: BP 118/56 Pulse 88 Temp 36.7 ?C (98.1 ?F) (Oral) Resp 18 SpO2 96% Intake/Output Summary (Last 24 hours) at 12/11/2019 0733 Last data filed at 12/11/2019 0600 Gross per 24 hour Intake 2575 ml Output 3600 ml Net -1025 ml Physical Examination: General: alert/oriented x3, in no apparent distress Lower Ext: Dressing CDI LLE: 5/5 ankle plantar/dorsiflex RLE: 5/5 ankle plantar/dorsiflex SILT saphenous, PFCN, LFCN, sural, DP, SP, plantar (L1-S1 in tact) 2+ DP, PT pulses bilat, feet/toes warm bilat; <2sec CR Lab: CBC, Coags, BMP, Mg, Phos Recent Labs 12/11/19 0125 WBC 13.19* HB 10.3* HCT 32.1* PLT 182 NA 134* K 5.6* CHLOR 102 CO2 15* BUN 12 CREAT 0.60 GLUC 113* CA 8.6 Impression/Plan: POD 1 s/p left EUGENIO - PT/OT: 75% WB - Diet: regular - Pain control: IV and PO prn - Dressing management: to remain for 7 days - DVT prophylaxis: IPCD and lovenox - Antibiotic: IV ancef 24h - Case management for discharge planning - Disposition: DC home today pending PT/OT clearance Stu Richardson MD Orthopaedic Surgery Resident Pager [phone] cbc on 2019-12-11 Absolute nRBC <0.01 <0.01 Normal 12-11-2019 [facility] ([id number]) Comment: Performed By: #### BMP, CBC ####[place] [address] [address], [place] [phone]- [phone] Erythrocyte distribution 12.8 11.5-15.0 % Normal 12-10 [facility] width (RBC) [Ratio] Valentine ([id number]) Comment: Performed By: #### BMP, CBC ####[place] [address] [address], [place] [phone]- [phone] Hematocrit (Bld) [Volume 32.1 36.0-46.0 % Low 12-10 [facility] fraction] ([id number]) Comment: Performed By: #### BMP, CBC ####[place] [address] [address], [place] [phone]- [phone] Hemoglobin (Bld) 10.3 11.5-15.5 g/dL Low 12-11-2019 [facility] [Mass/Vol] Valentine ([id number]) Comment: Performed By: #### BMP, CBC ####[place] [address] [address], [place] [phone]- [phone] MCH (RBC) [Entitic mass] 32.4 26.0-34.0 pG Normal 12-10 [facility] ([id number]) Comment: Performed By: #### BMP, CBC ####[place] [address] [address], [place] [phone]- [phone] MCHC (RBC) [Mass/Vol] 32.1 30.5-36.0 g/dL Normal 12-11-19 20 [facility] ([id number]) Comment: Performed By: #### BMP, CBC ####[place] [address] [address], [place] [phone]- [phone] MCV (RBC) [Entitic vol] 100.9 80.0-100.0 fL High 12-10 [facility] ([id number]) Comment: Performed By: #### BMP, CBC ####[place] [address] [address], [place] [phone]- [phone] Platelet mean volume 9.3 9.0-12.7 fL Normal 0 [facility] (Bld) [Entitic vol] ([id number]) Comment: Performed By: #### BMP, CBC ####[facility] [place] [facility] [place], [place] [phone]- [phone] Platelets (Bld) [#/Vol] 182 150-400 k/uL Normal 2019 [facility] ([id number]) Comment: Performed By: #### BMP, CBC ####[facility] [place] [facility] [place], [place] [phone]- [phone] RBC (Bld) [#/Vol] 3.18 3.90-5.20 m/uL Low 12-11-2019 [facility] ([id number]) Comment: Performed By: #### BMP, CBC ####[facility] [place] [facility] [place], [place] [phone]- [phone] WBC (Bld) [#/Vol] 13.19 3.70-11.00 k/uL High 12-11-2019 [facility] ([id number]) Comment: Performed By: #### BMP, CBC ####[facility] [place] [facility] [place], [place] [phone]- [phone] case mgt init asses on 2019-12-11 CASE MGT INIT HNO ID: [id number] Normal 020 [facility] Author: Michael (Katelyn) Arthur Bass ([id number]) Service: Care Management Author Type: Field Property Loss Specialist Type: Care Mgt Initial Assessment Filed: 12/11/2019 10:57 AM Note Text: CARE MANAGEMENT: ASSESSMENT AND DISCHARGE PLAN SERVICE DATE: December 11, 2019 SERVICE TIME: 10:54 AM PRIMARY CARE PHYSICIAN: No primary care provider on file. Phone: None ADMISSION STATUS: Extended Recovery Needs Prior to Discharge: Other: See Comment;OT/PT Evaluatio n(Accepting [facility] Agency) MEDICAL: TESSY DUKE Patient/Registered Dietitian Stated Goals: To have reduction in pa in;To return home to life as it was Health Insurance: Tessy Black Health Issues Impacting Discharge Plan: None Last Discharge Date: 04/12/18 Is this Within the Past 30 days? Last discharge within 30 days: No Advance Directive: Current Advance Directive: Health Care Power of Wheat Cleaner In Chart: Yes Up To Date and Valid: Yes Health LiteracyHow often do you need to have someone help yo u when you read instructions, pamphlets, or other written material from your doctor or pharmacy? : 1 - Never How confident are you filling out medical forms by yourself? : 1 - Extremely If Patient scores > 3 on either question, the following inte rventions were put into place:: Patient did not score > 3 on either questio n. Baseline Mental Status Prior to this Illness what was the patient's Baseline Mental Status?: Alert AND Oriented Prior to this illness, has anyone described the patient havi ng any of the following behaviors?: Not Applicable Relationship of the informant to the patient:: Self Functional Status: Independent Does Patient Currently Receive Any Community Services or [facility] Care?: None Equipment Prior to Admission: Cane SOCIAL: Living Arrangements: Home Lives With: Spouse Financial Resources: RetiredPrimary Contact: Extended Emerge ncy Contact Information Primary Emergency Contact: Bladimir Ho Address: [address] [place] [address] OF [facility] Mobile Relation: Spouse Secondary Emergency Contact: GeorgiaPriyankYukoJeanRo Mobile Relation: Daughter Supportive Patient Contact:: Yes Contact Resources: Family Family Name/Phone: Bladimir Ho [phone] (I) Social Needs Food insecurity Worry: Never true Inability: Never true Resources Needed: No Social Needs Financial resource strain: Not hard at all Social Needs Transportation needs Medical: No Non-medical: No Caregiver Assessment Patient's perception of need for this admission: Pt is aware of admission and is in agreement. Medication Adherance I am convinced of the importance of my prescription medicati on: 0 - Agree Completely I worry that my prescription medication will do more harm th an good to me : 0 - Disagree Completely I feel financially burdened by my ycf-iy-dshift expenses for my prescription medication:: 0 - Disagree Completely Risk Score: 0 Patient is categorized as: Low risk < 2 Is Patient Psychosocially Complex?: No ASSESSMENT AND PLAN: Medical Needs: Medical Needs: Two or more chronic diseases Psychosocial Needs: Psychosocial Needs: None FREEDOM OF CHOICE EXPLAINED: Wesley of Choice Given: Yes Level of Care Discussed: Home Care Financial Disclosure Provided: Yes Financial Disclosure Comments: Care[facility] list provided Provider List: Home Care Provider list within the patient's requested geographic area shared with the patient/family: Yes within: 25 miles of zip code: [address] Quality and resource use metrics shared with the patient eugenio t are relevant to the patient's goals of care and treatment preferences:: Y es Metrics: Functional Status;Potentially Preventable 30-day Po st Discharge Readmission Rates POTENTIAL TRANSITION PLANS Home OT/PT;Home Care Pt is a 79 Y/F who presented to the hospital on 12/10/2019. Pt is now POD #1 s/p arthroplasty replace joint total hip (left) SW met wi th patient at bedside to discuss possible discharge needs. Patient was bishnu rt and oriented and engaged with questioning. Pt is from home with spouse and was independent prior to admission to the hospital. PT/OT recs p ending at this time. It is anticipated that Pt will need HHC post D/C from the hospital. [facility] Pt to be transported home via family auto . CM following. SIGNATURE: BRIGITTE Richardson, GERIATRIC NURSE PRACTITIONER PATIENT NAME: An Ho DATE: December 11, 2019 TIME: 10:54 AM PAGER/CONTACT #: basic metabolic panl on 2019-12-11 Anion gap [Moles/Vol] 12 9-18 mmol/L Normal 12-11-19 20 [facility] ([id number]) Comment: Performed By: #### BMP ####[facility] [address] [place], [place] [phone]- [phone] Calcium [Mass/Vol] 8.6 8.5-10.2 mg/dL Normal 12-11-2019 [facility] ([id number]) Comment: Performed By: #### BMP ####C [facility] [address], [place] [phone]- [phone] Chloride [Moles/Vol] 98 97-105 mmol/L Normal 0 [facility] ([id number]) Comment: Performed By: #### BMP ####C [address] [phone] CO2 [Moles/Vol] 26 22-30 mmol/L Normal 12-11-2019 [facility] ([id number]) Comment: Performed By: #### BMP ####C [address] [phone] Creatinine [Mass/Vol] 0.56 0.58-0.96 mg/dL Low 12-11-19 20 [facility] ([id number]) Comment: Performed By: #### BMP ####C [address] [phone] eGFR- Amer. >60 Normal 12-11-2019 [facility] ([id number]) Comment: Performed By: #### BMP ####[address] [phone] GFR/1.73 sq M predicted >60 mL/min/{1.73_m2} Normal 12-11-2019 [facility] among non-blacks [facility] ([id number]) (S/P/Bld) [Vol rate/Area] Comment: Result Comment: eGFR (Estima christian GFR) Units of measure: mL/min/1.73 meters squared eGFR is derived from the ree xpressed MDRD Study equation using the following parameters: serum creatinine, age, gender and race. The creatinine assay has been calibrated to be traceable to IDMS. An eGFR <60 mL/min/1.73m2 fo r >3 months is consistent with chronic kidney disease. Refer to KDOQI guidelines for clinical interpretation. In patients with unstable re nal function, e.g. those with acute kidney injury, the eGFR may not accurately reflect actual GFR. Performed By: #### BMP ####[address] [place] [id number] [place], [place] [phone] Glucose [Mass/Vol] 141 74-99 mg/dL High 12-11-2019 [facility] ([id number]) Comment: Result Comment: The [place] Diabetes Association (ADA) provides guidance for cutoff values for fasting glucose and random glucose. The ADA defines fasting as no caloric intake for at least 8 hours. Fas ting plasma glucose results between 100 to 125 mg/dL indicate increased risk for diabetes (prediabetes). Fasting plasma glucose resul ts greater than or equal to 126 mg/dL meet the criteria for diagnosis of diabetes. In the absence of unequivocal hyperglycemia, results should be confirmed by repeat testing. In a patient with classic s ymptoms of hyperglycemia or hyperglycemic crisis, random plasma glucose results greater than or equal to 200 mg/dL meet the criteria for diagnosis of diabetes. Reference: Standards of [facility] Care in Diabetes 2016, [place] Diabetes Association. Diabetes Care. 2016.39(Suppl 1). Performed By: #### BMP ####[address] [phone] Potassium [Moles/Vol] 3.7 3.7-5.1 mmol/L Normal 12-11-19 [facility] ([id number]) Comment: Performed By: #### BMP ####[address] [phone] Sodium [Moles/Vol] 136 136-144 mmol/L Normal 12-11-2019 [facility] (50668) Comment: Performed By: #### BMP ####[address] [phone] Urea nitrogen [Mass/Vol] 10 7-21 mg/dL Normal 12-10 [facility] (78071) Comment: Performed By: #### BMP ####[address] [phone] Anion gap [Moles/Vol] 17 9-18 mmol/L Normal 12-11-19 20 [facility] (98522) Comment: Performed By: #### BMP, CBC ####[address] [phone] Calcium [Mass/Vol] 8.6 8.5-10.2 mg/dL Normal 12-11-2019 [facility] (95054) Comment: Performed By: #### BMP, CBC ####[place] [address] [place], [place] [phone] Chloride [Moles/Vol] 102 97-105 mmol/L Normal 0 [facility] (36713) Comment: Performed By: #### BMP, CBC ####[place] [address] [place], [place] [phone] CO2 [Moles/Vol] 15 22-30 mmol/L Low 12-11-2019 [facility] (55188) Comment: Performed By: #### BMP, CBC ####[place] [address] [place], [place] [phone] Creatinine [Mass/Vol] 0.60 0.58-0.96 mg/dL Normal 12-11-19 20 [facility] (99601) Comment: Performed By: #### BMP, CBC ####[place] [address] [place], [place] [phone] eGFR- Amer. >60 Normal 12-11-2019 [facility] (00840) Comment: Performed By: #### BMP, CBC ####[place] [place], [place] [phone] GFR/1.73 sq M predicted >60 mL/min/{1.73_m2} Normal 12-11-2019 [facility] among non-blacks [facility] ([id number]) (S/P/Bld) [Vol rate/Area] Comment: Result Comment: eGFR (Estima christian GFR) Units of measure: mL/min/1.73 meters squared eGFR is derived from the ree xpressed MDRD Study equation using the following parameters: serum creatinine, age, gender and race. The creatinine assay has been calibrated to be traceable to IDMS. An eGFR <60 mL/min/1.73m2 fo r >3 months is consistent with chronic kidney disease. Refer to KDOQI guidelines for clinical interpretation. In patients with unstable re nal function, e.g. those with acute kidney injury, the eGFR may not accurately reflect actual GFR. Performed By: #### BMP, CBC ####[facility] [place], [place] [phone] Glucose [Mass/Vol] 113 74-99 mg/dL High 12-11-2019 [facility] (51301) Comment: Result Comment: The [place] Diabetes Association (ADA) provides guidance for cutoff values for fasting glucose and random glucose. The ADA defines fasting as no caloric intake for at least 8 hours. Fas ting plasma glucose results between 100 to 125 mg/dL indicate increased risk for diabetes (prediabetes). Fasting plasma glucose resul ts greater than or equal to 126 mg/dL meet the criteria for diagnosis of diabetes. In the absence of unequivocal hyperglycemia, results should be confirmed by repeat testing. In a patient with classic s ymptoms of hyperglycemia or hyperglycemic crisis, random plasma glucose results greater than or equal to 200 mg/dL meet the criteria for diagnosis of diabetes. Reference: Standards of [facility] Care in Diabetes 2016, [place] Diabetes Association. Diabetes Care. 2016.39(Suppl 1). Performed By: #### BMP, CBC ####[facility] [place], [place] [phone] Potassium [Moles/Vol] 5.6 3.7-5.1 mmol/L High 12-11-19 [facility] (36233) Comment: Performed By: #### BMP, CBC ####[facility] [place], [place] [phone] Sodium [Moles/Vol] 134 136-144 mmol/L Low 12-11-2019 [facility] (62331) Comment: Performed By: #### BMP, CBC ####[facility] [place], [place] [phone] Urea nitrogen [Mass/Vol] 12 7-21 mg/dL Normal 12-10 [facility] (01648) Comment: Performed By: #### BMP, CBC ####[facility] [address] [place], [place] [phone] xr pelvis 1v ap on 2019-12-10 XR PELVIS 1V AP * * *Final Report* * * Normal 0 12-10-2019 [facility] DATE OF EXAM: Dec 10 2019 4:12PM [facility] ([id number]) ESX [id number] - XR PELVIS 1V AP / PROCEDURE REASON: Post-operative / post-procedure assessment , asymptomatic * * * * Physician Interpretation * * * * HISTORY: post op. Post-operative / post-procedure assessment , asymptomatic. TECHNIQUE: XR PELVIS 1V AP Laterality: NOT APPLICABLE Number of different views (projections): 1 COMPARISON: November 28 RESULT: Left total hip arthroplasty in good alignment. No acute frac ture. Total hip arthroplasty on the right side. IMPRESSION: Satisfactory postoperative appearance of the left hip. Secure Software Assessor: LEE Transcribe Date/Time: Dec 10 2019 4:15P Dictated by : AMPARO ROBISON MD This examination was interpreted and the report reviewed and electronically signed by: AMPARO ROBISON MD on Dec 10 2019 4:16PM EST [id number] therapy nt on 12-09 THERAPY NT HNO ID: [id number] Normal 12-10-2019 [facility] Author: Corrie (Pt) Oma Bass ([id number]) Service: Physical Therapy Author Type: Physical Therapist Type: Therapy (PT/OT/Speech/Resp) Filed: 12/10/2019 4:40 PM Note Text: PHYSICAL THERAPY MISSED VISIT SERVICE DATE: 12/10/2019 SERVICE TIME: 1640 to 1640 ROOM: [place] [address] Attempted Evaluation. Patient not seen due to (Per PACU nurs e, patient not appropriate for PT at this time.). SIGNATURE: Corrie ARLYN Ernandez PATIENT NAME: Argenis Ho DATE: December 10, 2019 TIME: 4:40 PM pt ed on 2019-12-10 PT ED HNO ID: [id number] Normal 12-10-2019 [facility] Author: Aisha TapiaRn) DARYL Witt [facility] ([id number]) Service: Nursing Author Type: Registered Nurse Type: Patient Education Filed: 12/10/2019 8:04 AM Note Text: PRE OP LEARNING ASSESSMENT PROCEDURE/SURGERY: SURGERY: pre op READINESS TO LEARN COGNITIVE ABILITY: Alert and oriented MOTIVATION TO LEARN: Eager FAMILY SUPPORT: High - Very involved in pt care PATIENT LEARNS BEST BY: Multiple Methods FACTORS AFFECTING LEARNING: None PHYSICAL LIMITATIONS AFFECTING LEARNING: None Electronically Signed By: Aisha Witt RN In Department: HOSP MAIN M021 operative no on 202 OPERATIVE NO HNO ID: [id number] Normal 12-10-19 20 [facility] Author: Kodak Berg [facility] Service: Orthopaedic Surgery ([id number]) Author Type: Physician Type: Operative Report Filed: 01/08/2020 4:59 PM Note Text: [place] [address] [place] OPERATIVE REPORT PATIENT NAME: Argenis Ho AGE: [age] year old LOG ID: [id number] Surgery Date: 12/10/2019 Surgeon(s) and Screen Cutter And Trimmer(s): Surgeon(s) and Role: * Kodak Berg - Primary * Stu (Amadeo) Dylan - Resident - Assisting * CORNELIUS Wilhelm PROCEDURE: LEFT TOTAL HIP REPLACEMENT- HYBRID Procedure(s) (LRB): ARTHROPLASTY REPLACE JOINT TOTAL HIP (Left) ANESTHESIA: General PREOP DIAGNOSIS: LEFT HIP DYSPLASIA SECONDARY LEFT HIP OSTEOARTHRITS Pre-Op Diagnosis Codes:Other secondary osteoarthritis of lef t hip [M16.7] POSTOP DIAGNOSIS:LEFT HIP DYSPLASIA SECONDARY LEFT HIP OSTEOARTHRITS Same as Pre-Op Diagnosis Codes:Other secondary osteoarthriti s of left hip [M16.7] BMI: Estimated body mass index is 21.14 kg/m? as calculated from the following: Height as of 11/29/19: 167.6 cm (5' 6). Weight as of 11/29/19: 59.4 kg (131 lb). OPERATIVE INDICATIONS: The patient is 79 year old and has de veloped end-stage hip arthritis on the left. Left hip pain is severe with activity and has progressed significantly over the last 6-12 months. X-rays reveal ribkptpi-wy-kfrwqm eburnation of articular car tilage on the superior weight bearing surface of the hip with circumferent ial acetabular and femoral neck osteophytes consistent with advanced left h ip osteoarthritis. The femur is a [place] type B-C and may require a cemented stem due to the size of the medullary canal and the thin cor tical bone. Non-operative treatment has been attempted, but has not impr jeff or controlled symptoms during normal daily activities. Motion h as become limited and rotation severely restricted. A left total hip a rthroplasty was recommended at this time. The risks, benefits and potent ial complications of the arthroplasty surgery were discussed wit h the patient in detail. Specific details of the procedure, hospitalizatio n, recovery, rehabilitation, and long-term precautions were also provided . Pre-operative teaching was provided. Implant/prosthesis hitesh ction was outlined, and the many options available were explained; the final choice will be made at the time of the procedure to match the anato my and condition of the bone, ligaments, tendons, and muscles. Unde rstanding of all topics was conveyed to me by the patient, and consent wa s given to proceed with a left total hip arthroplasty. The patient was seen by [facility] for pre-op erative optimization. Michelle-operative blood management and the potent ial for blood transfusion were discussed with risks and options clearly ou tlined. The patient has consented to the use of banked allogeneic blood if medically necessary. OPERATIVE FINDINGS: Advanced primary left hip osteoarthritis . Severe eburnation of articular cartilage on the superior weight addis ring surface of the femoral head, large femoral neck osteophytes, circumf erential acetabular osteophytes, ossification of the acetabular labru m, and presence of a large medial wall osteophyte. OPERATIVE PROCEDURE: The patient was identified and brought into the Operating Room by the anesthesia and nursing team. Anesthesi a was successfully performed. The patient was then positioned supi ne on the operating room table. Intravenous antibiotic prophylaxis dos ing was confirmed. The patient was then positioned in the left later al decubitus on the hip pegboard with the left hip up. An axillary roll w as placed and all other pressure points were checked and padded. The left hip was then examined and restrictions noted. A relative leg length asses sment was carried out and markers were placed for intra-operative asse ssment. The left leg was then prepped and draped in the usual sterile fa shion. Tranexamic acid was given for blood conservation. A surgical time-out was performed immediately preceding the incision with all personnel in the operating room; the patient identity wa s again confirmed, the surgical site and extremity were identified a nd confirmed, X-rays were reviewed, and availability of the appropriate lopez rgical equipment was established. The left hip was then exposed through a limited Direct-Later al skin incision centered over the greater trochanter. Dissection wa s carried down through skin and subcutaneous tissue to the tensor and gluteal fascia. The fascia was split posteriorly over the trochanter in the direction of its fibers, and the gluteus sven muscle was spread with the radiofrequency sealer to prevent blood loss. Bleeders we re further controlled with the radiofrequency sealer and standard elect rocautery. The abductor muscles were identified and the bursa cleared a nd released. A modified anterolateral-transgluteal approach was performed to enter the hip space using the radiofrequency sealer for dissection. Th e anterior 1/3 of the gluteus medius was released from the greater troc hanter, tagged, and carefully retracted to expose the gluteus minimu s and capsule. The anterior-inferior capsule was found scarred down; it was released and then excised. The superior capsule and gluteus minimus were released off the femoral neck and reflected superior-medially to expose t he femoral head and neck. The remainder of the capsule was not disrupte d. The labrum was split and the femoral head mobilized. The hip was then f lexed, externally rotated, and dislocated from the acetabulum witho ut excessive force. Assessment of the femoral head revealed severe eburna tion of articular cartilage with complete loss of weight bearing cho ndral surface and formation of cysts in the head and neck. Large marginal osteophytes were present surrounding the femoral neck. These were debrid ed with an osteotome and rongeur in preparation for the osteotomy. The hip center of rotation was then determined, a femoral neck cutting guide w as placed, and the cut position compared to the preoperative templates. The femoral neck osteotomy was made using a sagittal saw, and the head was re moved. Capsular releases were then done down the femoral neck for a dditional exposure. Attention was then turned to the acetabulum. Retractors were placed circumferentially for wide acetabular exposure. A MIS abduct or retractor was placed superiorly, a MIS Cobra over the anterior pelvic brim, and a small straight Cobra retractor placed in the cotyloid notch under the transverse ligament to retract the femur. The labrum and ost eophytes were debrided from the rim, and the medial wall was identified an d the depth of the socket assessed by excising the pulvinar. Bleeders were controlled, especially the area of the obturator artery with the radiofr equency sealer. Acetabular reaming was then started with the hemisph erical instrument matching the size of the excised femoral head. Se quential reaming of the acetabulum was then performed by increasing s ize in 2 mm increments. The reamers created an excellent hemispherical b ed of bleeding cancellous bone. A trail corresponding to the last reamer size was then impacted into place in the appropriate orientation- 40 degrees of abduction and 20 degrees of flexion/anteversion. The line to line trial had good fit and purchase, and was apically seated. Further osteophyte debridement was done around the trial. All impinging soft ti ssue was removed from the edges of the socket. Trial was then removed and the final Trident cluster hemispherical titanium acetabular glenn l was impacted into place in 40-45 degrees of abduction and 20 degrees of f lexion. The press-fit was firm, stable, and apically seated. Dome screws were placed for additional fixation because of soft cancellous bone and lack of complete socket coverage by host bone. The Polyethylene bear ing/liner was then impacted into place and checked for stability. Attention was then turned to the femoral preparation. The le g was placed in a position that enabled straight-line access down the jose eduardo gth of the femoral shaft and sufficient soft tissue clearance for stem anteversion. The leg was positioned so access did not result in soft-tiss ue injury. A femoral elevator was then placed to deliver the femur out of the wound, providing clearance and protection of the soft tissues and t he ability to control the degree of anteversion of the femoral broach. The medullary canal was opened using a rongeur, undercutting the lateral c ortex of the neck and developing a slot into the trochanteric region by r esecting the lateral-most cortical bone of the neck. A tapered T-handled reamer was introduced into the femoral canal in line with the long axis of the femur to ensure that the femoral broach could be inserted down the midline of the femur to avoid varus positioning. Press-fit broaches wer e then employed in an incremental fashion up to the templated size. This final press-fit broach was then fully seated, but did not have goo d rotational or axial stability at the appropriate height in relation to the greater trochanter and the templating. Based on this situation we co nverted from press-fit to the cemented [place] system. The [place] broaches were then introduced to prepare the femo ral cancellous bone for cementing. The aim was to preserve at least 2-3 mm of strong cancellous bone circumferentially around the stem cavity, in to which the cement will be pressurized. Broaching began with a size #0 - 44mm offset broach which was smaller than the anticipated final size pre dicted by pre-operative planning. Sequentially larger broaches were im pacted down the canal until a firm fit was achieved. The broaches were i nserted to the level at which templating had determined that leg length wou ld be restored to within millimeters [id number]-ha-szdt. This was done by referen cing the three circular love on the neck corresponding to the same love o n the neck of the final implant. Care was taken when broaching the canal t o avoid removing too much cancellous bone. With relative leg length and offset achieved, the position of the stem was marked in line with t he first visible circular abdirahman on the broach. The appropriate head/ne ck trial was positioned onto the broach. A trial reduction was done and v erified the correct stem size, offset and position. . The anteversion wa s set at approximately 15 to 17 degrees. The hip had an excellent ran ge of motion, appropriate tissue and muscle tension, and no tendency towar ds impingement or subluxation. Leg lengths were appropriate based on the ma rkers and relative measurement. The trials were then dislocated and th e broach removed. The correct intramedullary plug size was selected and was im planted to provide a firm seal for pressurizing the cement. The femur w as then cleaned with lavage and a canal brush to provide a clean sun face prior to Simplex P cement injection. A sponge was packed into the fem ur to maintain hemostasis in the canal and to provide a clean dry surface i nto which the cement can [place]. The cement was mixed, [address] d in the cement gun. At approximately 2-3 minutes in a slightly dough -like state the cement was injected retrograde using the gun, followed b y vigorous pressurization using a proximal seal until the viscosity of the cement started increasing. Pressure on the cement column was mainta ined until stem insertion. The PMMA winged centralizer was placed on th e stem. The femoral stem was then inserted down the canal, maintaining a ppropriate anteversion of the implant in the cement. The stem was pushe d down until it reached a position approximately 1cm above its final posi tion. Then it was tapped down with a mallet gradually to its final positio n as judged by the love on the stem. Cement pressure was maintained medial ly over the calcar. Excess cement was curetted free. No free cement frag ments were allowed to fall near the socket. The stem was held in place until the cement completely hardened. Another trial reduction was done to confirm that the leg length and offset were restored and the hip was stable through a full range of motion. The trial was dislocated and removed. The permanent femoral head was then twisted and impacted on the clean dry trunnion. The socket and wound were irrigated, suctioned, an d inspected for debris. The final reduction was performed, and again the hip was stable in all planes without impingement when stressed to th e extremes. The radiofrequency sealer was again applied to minimize blee ding. A pain cocktail was injected: Exparel 266 mg (one 20 mL vial ) diluted with 20 mL of 1% Lidocaine and 20 mL of preservative-free normal sterile saline was injected slowly into the michelle-articular and soft tissues of the surgical site using a deep tissue administration technique w ith a 22ga spinal needle. Aspiration was done frequently to check for b lood and to minimize the risk of intravascular injection. The hip space was injected in the michelle-acetabular capsule with care taken to avoid the posterior areas near the sciatic nerve. Infiltration above and below t he tensor and gluteal fascia and into the musculature was done to treat pa in originating from the exposure. Infiltration of the subcutaneous tissue w as done along the length of the surgical site to treat pain originating fr om the initial surgical incision. An anatomic abductor muscle repair was then performed. The g luteus minimus was repaired to the greater trochanter with 3 interrupted #1 PDS suture through osseous tunnels. The posterior edge of the minimus w as approximated to the posterior capsule with a running #1 Vicr yl suture. The gluteus medius was closed with interrupted #1 PDS trans-tend inous suture. The wound was further irrigated. Instrument and sponge count was completed and confirmed correct. Tensor and gluteal fascia was closed with interrupted #1 Vicryl suture. Deep subcutaneous tissue was c losed with a running #1 Vicryl, and more superficial with interrupted 2-0 Vicryl. A 4-0 Monocryl stitch was used for the skin. Skin adhesive and Marito ri-Strips were applied. A sterile silver impregnated dressing was plac ed. PAS stockings were placed. An abduction pillow was placed. The p atient was then returned to the supine position on the operating room t able. After stability was confirmed they were transferred to a hospital bed and taken to Recovery/PACU. SPECIMENS: The femoral head and synovium. PAIN COCKTAIL: Exparel 266 mg (one 20 mL vial) diluted with 20 mL of 1% Lidocaine and 20 mL of preservative-free normal sterile sali ne. EBL: 200 cc DRAINS: None. COUNTS: Correct. COMPLICATIONS: None. OPERATIVE TIME: Total operative time from wheels in to wheel s out, including anesthesia time was 3 Hr 42 Min 0 Sec Incision Start: 12:44 PM Incision Stop: 3:20 PM ATTESTATION: I performed the procedure with assistance. I wa s present for all of the critical portions of the operation and performed or assisted in all critical aspects of the procedure. DIRECTOR OF RECREATION THERAPY 1: Stu Richardson M.D., DIRECTOR OF RECREATION THERAPY 2: : Karine CONNER, assisted during th e entire operation and their involvement included positioning the pat ient, surgical site preparation, drapping, joint exposure, bone preparation , and closure under supervision. I was immediately available for the durat ion of the entire case. IMPLANTS: [employer] Total Hip System SIZE TYPE Acetabulum 52mm Trident II Tritanium Cluster Screws 20mm, 25mm, 30MM 6.5mm Polyethylene 36mm X3-neutral face Femur #4 - 44mm offset [place] cemented stem V40 Cement 2 doses/bags Simplex P ? no antibiotics Femoral Head 36+0mm Delta Ceramic V40 taper Implant Name Type Inv. Item Serial No. Type Bar And Segment Assembler Lot No. LRB Model Num No. Used [employer] DIS[employer] INS[employer] [facility] L - [id number] Joint - Knee [employer] DISPOSABLE I [employer]TER [employer]AL [employer] [id number] Left [id number] CEMENT SIMPLEX P BONE RADIOPAQUE FULL DOSE STERILE - [id number] Cement / Putty CEMENT SIMPLEX P BONE RADIOPAQUE FULL DOSE STERILE STR Y/[facility] [id number] Left [id number] CEMENT SIMPLEX P BONE RADIOPAQUE FULL DOSE STERILE - [id number] Cement / Putty CEMENT SIMPLEX P BONE RADIOPAQUE FULL DOSE STERILE STR Y/[facility] [id number] Left [id number] 1 SCREW TRIDENT II 6.5MM 30MM BONE LOW PROFILE HEXAGONAL STERI LE - [id number] Screw SCREW TRIDENT II 6.5MM 30MM BONE LOW PROFIL E HEXAGONAL STERILE STRY/[facility] [id number] Left 1478-6437 1 LINER 36MM 0D E X3 5.9MM ACETABULAR HIP - [id number] Joint - Hip LINER 36MM 0D E X3 5.9MM ACETABULAR HIP STRY/[facility] [id number] Left [id number] SCREW TRIDENT II 6.5MM 25MM BONE LOW PROFILE HEXAGONAL STERI LE - [id number] Screw SCREW TRIDENT II 6.5MM 25MM BONE LOW PROFIL E HEXAGONAL STERILE STRY/[facility] [id number] Left [phone] 1 SCREW TRIDENT II 6.5MM 20MM BONE LOW PROFILE HEXAGONAL STERI LE - [id number] Screw SCREW TRIDENT II 6.5MM 20MM BONE LOW PROFIL E HEXAGONAL STERILE STRY/[facility] [id number] Left [phone] 1 SHELL TRIDENT II 52MM E TRITANIUM ACETABULAR 5 SCREW HOLE CL USTER STERILE - [id number] Joint SHELL TRIDENT II 52MM E TRITANIUM ACETABU LAR 5 SCREW HOLE CLUSTER STERILE STRY/[facility] [id number] Left 70 08-06-51E 1 STEM EXETER V40 4 44MM OFFSET FEMORAL CEMENTED HIP - [id number] Joint - Hip STEM EXETER V40 4 44MM OFFSET FEMORAL CEMENTED HIP STRY/ [facility] [id number] Left [id number] 1 HEAD V40 36MM 0MM OFFSET TAPER BIOLOX DELTA FEMORAL HIP - LO [id number] Joint HEAD V40 36MM 0MM OFFSET TAPER BIOLOX DELTA FEMORAL HIP STRY /[facility] [id number] Left [id number] PROBLEM LIST: ACTIVE PROBLEM LIST Secondary localized osteoarthrosis, pelvic region and thigh Primary localized osteoarthrosis, lower leg Primary localized osteoarthrosis, hand Vitamin D Deficiency Pain in Thoracic Spine Cervicalgia Cervical spondylosis without myelopathy Congenital Spondylolisthesis Unspecified disorder of muscle, ligament, and fascia Muscle Weakness (Generalized) Lumbar Spondylosis Lumbago Brachial Neuritis Or Radiculitis NOS Severe Episode of Recurrent Major Depressive Disorder (Hcc) Gerd (Gastroesophageal Reflux Disease) Cervical Arthritis Lumbar Spinal Stenosis Microscopic Hematuria Neoplasm of Uncertain Behavior of Kidney Ex-Smoker Backache, Unspecified Preglaucoma, Unspecified Headache, Unspecified Headache Type Tear Film Insufficiency, Unspecified History of Compression Fracture of Spine Displacement of Lumbar Intervertebral Disc Without Myelopath y History of Dislocation of Hip Occipital Neuralgia of Right Side Iron Deficiency Anemia Current Use of Proton Pump Inhibitor Neftaly Positive History of Colonic Polyps Age-Related Osteoporosis Without Current Pathological Fractu re Encounter for Screening for Cardiovascular Disorders Encounter for Screening for Diabetes Mellitus Copd (Chronic Obstructive Pulmonary Disease) (Hcc) Abnormal Stress Ecg Huang (Dyspnea On Exertion) SIGNATURE: Kodak Berg MD DATE: December 10, 2019 TIME: 3:07 PM anes post on 12-09 ANES POST HNO ID: [id number] Normal 12-10-2019 [facility] Author: Harlan Bass ([id number]) Service: Anesthesiology Author Type: Anesthesiologist Type: Anesthesia PostOp Filed: 12/10/2019 4:40 PM Note Text: POST ANESTHESIA EVALUATION NOTE SERVICE DATE: December 10, 2019 SERVICE TIME: 4:40 PM : 1940 Vitals: 12/10/19 0836 12/10/19 1545 Temp: 36.7 ?C (98.1 ?F) 36.5 ?C (97.7 ?F) 12/10/19 1545 12/10/19 1600 12/10/19 1615 12/10/19 1630 BP: 112/70 103/51 (!) 105/49 112/50 12/10/19 1545 12/10/19 1600 12/10/19 1615 12/10/19 1630 Pulse: 83 83 83 88 12/10/19 1545 12/10/19 1600 12/10/19 1615 12/10/19 1630 Resp: 20 18 9 10 12/10/19 1545 12/10/19 1600 12/10/19 1615 12/10/19 1630 SpO2: 98% 96% 97% 97% Validated Vital Signs: YES POST ANES STATUS: No apparent anesthetic complications. The patient is appropriately hydrated with stable respiratory and cardiovas cular status. Patient has safe and adequate airway control. The patient rhodes s appropriate pain relief and no significant post operative nausea or vomi ting. The patient has achieved baseline mental status. Intra-Operative Events: No Significant Anesthesia Events Further assessment by Anesthesia Service: None Other Remarks: SIGNATURE: Harlan Castaneda MD PATIENT NAME: Argenis Jensen Ma rs DATE: December 10, 2019 TIME: 4:40 PM PAGER/CONTACT #: [phone] coronavirus 2019 on 2019-12-07 COVID 19 Result Negative for Negative for Normal 12-07-19 20 [facility] SMOG TECHNICIAN COVID19 (SARS COVID19 (SARS Cl katie (88546) CoV2) by PCR. CoV2) by PCR. Comment: Result Comment: This test wa s developed and its performance characteristics determined by [facility]'s [facility] [place]. This test has been authorized by FDA under an Emergency Us e Authorization (EUA). This test has been validated in accordance with the FDA's Guidance Document Policy for Diagnostics Testing in Laboratories Certified to Perform High Complexity Testing under CLIA prior to Emergency use Authorization for Coronavir us Disease 2019 during the Public Health Emergency issued on August 31, 2019. Performed By: #### COVID ### #[facility] [place], [place] [phone] COVID 19 Source SMOG TECHNICIAN Nasopharyngeal Swab Normal 0 12-07-2019 [facility] (51025) Comment: Performed By: #### COVID ### #[facility] [place], [place] [phone]- [phone] xr hip 3v pelv+ ap/lat lt on 2019-11-29 XR HIP * * *Final Report* * * Normal 11-28-2 020 [facility] 3V DATE OF EXAM: Nov 29 2019 11:11AM [facility] PELV+ AOX 5351 - XR HIP 3V PELV+ AP/LAT LT / Valentine AP/LAT PROCEDURE REASON: multiple diagnoses (48334) LT * * * * Physician Interpretation * * * * EXAMINATION: XR HIP 3V PELV+ AP/LAT LT HISTORY: consult for left hip replacement Anemia, unspecifie d type Other secondary osteoarthritis of left hip . TECHNIQUE: XR HIP 3V PELV+ AP/LAT LT Laterality: LEFT Number of different views (projections): 3 COMPARISON: 08/28/2019 RESULT: Remote posttraumatic deformity of the left subcapital femora l neck. Severe left hip osteoarthritis with olbz-kr-rrpb contact sup erolaterally. Remote posttraumatic deformity of the left superior and infe rior pubic rami. Status post right-sided total hip arthroplasty, the vi sualized portions of which are within normal limits. SI joints are normal. Incidental note of severe degenerative disc disease in the lower lumbar spine. No other significant abnormality. IMPRESSION: SEVERE OSTEOARTHRITIS Secure Software Assessor: LEE Transcribe Date/Time: Nov 29 2019 12:48P Dictated by : GALO PULLIAM MD This examination was interpreted and the report reviewed and electronically signed by: GALO PULLIAM MD on Nov 29 2019 12:49PM EST [id number] vitamin b12 on 2019 Cobalamin (Vitamin B12) 949 679-0018 pg/mL Normal 2019 [facility] [Mass/Vol] [facility] (71380) Comment: Performed By: #### RETIC, B1 2, ALB, FERR, SERFOL, CBCDIF, BMP, IRON ####[facility] Laborat [address] [place], [place] [phone] urinalysis on 11-28 Bilirubin, Urine Negative Negative Normal 11-29-2019 [facility] (14579) Comment: Performed By: #### UA ####Cl [facility] [address] [place], [place] [phone]- [phone] Clarity (U) Clear Clear Normal 11-29-2019 [facility] (50787) Comment: Performed By: #### UA ####[place] [phone] Color (U) Yellow Yellow Normal 11-29-2019 [facility] (82653) Comment: Performed By: #### UA ####[place] [phone] Comments SEE COMMENT Normal 11-29-2019 [facility] (18605) Comment: Result Comment: Microscopic not warranted Performed By: #### UA ####[place] [phone] Glucose Ql (U) Negative Negative Normal 11-29-2019 [facility] (66348) Comment: Performed By: #### UA ####[place] [phone] Hemoglobin/Blood,Ur Negative Negative Normal 11-29-2019 [facility] (49178) Comment: Performed By: #### UA ####[place] [phone] Ketones Ql (U) Negative Negative Normal 11-29-2019 [facility] (96670) Comment: Performed By: #### UA ####[place] [phone] Leukest Negative Negative Normal 11-29-2019 [facility] (50940) Comment: Performed By: #### UA ####[place] [phone] Nitrite Ql (U) Negative Negative Normal 11-29-2019 [facility] (96363) Comment: Performed By: #### UA ####[place] [phone] pH (Bld) 6.0 5.0-8.0 Normal 11-29-2019 [facility] (17134) Comment: Performed By: #### UA ####Cl [facility], [place] [phone] Protein (U) [Mass/Vol] Negative Negative mg/dL Normal [facility] (13606) Comment: Performed By: #### UA ####Cl [facility], [place] [phone] Specific [place], Ur 1.018 1.005-1.030 Normal [facility] (76295) Comment: Performed By: #### UA ####Cl [place] [address], [place] [phone] Urine James Comment SEE COMMENT Normal 11-29-2019 [facility] (32756) Comment: Result Comment: N/A Performed By: #### UA ####Cl [place] [address], [place] [phone] Urobilinogen Qn (U) Negative Negative Normal 11-29-2019 [facility] (54579) Comment: Performed By: #### UA ####Cl [place] [address], [place] [phone] type and scr (30d) on 2019-11-29 ABO/RH(D) O NEGATIVE Normal 11-29-2019 [facility] (29936) Comment: Performed By: #### [id number] ## ##[facility], [place] [phone] staph aureus pcr on 2019-11-29 MRSA PCR Negative for MRSA by PCR. Normal 11-01 [facility] (04482) Comment: Performed By: #### SAPCR ### #[facility], [place] [phone] S aureus Spec Source Nasal Normal 0 [facility] (24235) Comment: Performed By: #### SAPCR ### #[facility] [address], [place] [phone] Staph aureus PCR Negative for Normal 11-29-2019 [facility] Staphylococcus aureus by [facility] (99120) PCR. Comment: Performed By: #### SAPCR ### #[facility] [address] [place], [place] [phone] reticulocyte on Abs Retic 0.062 0.0180-0.1000 M/uL Normal 11-29-2019 [facility] (63033) Comment: Performed By: #### RETIC, B1 2, ALB, FERR, SERFOL, CBCDIF, BMP, IRON ####[facility] Laborat [address] [place], [place] [phone] Retic% 1.5 0.4-2.0 % Normal 11-29-2019 [facility] (14159) Comment: Performed By: #### RETIC, B1 2, ALB, FERR, SERFOL, CBCDIF, BMP, IRON ####[facility] Laborat [address] [place], [place] [phone] progress on 2019-11 PROGRESS HNO ID: [id number] Normal 11-29-2019 [facility] Author: Mecca TapiaRtLeopoldo Bass ([id number]) Service: Radiology Author Type: Partner Type: Progress Notes Filed: 11/29/2019 11:12 AM Note Text: Radiology Service Progress Note PATIENT NAME: Argenis Ho DATE OF SERVICE: November 29, 2019 TIME: 11:12 AM PATIENT IDENTITY VERIFICATION COMPLETED USING TWO (2) IDENTI FIERS: Name and Date of confirmed by patient verbally. FALL SCREENING: Has the patient had 2 falls in the last year or 1 fall with injury or currently using an Ambulatory Assistive Devic e (Walker, Cane, Wheelchair, Crutches, etc.)? No PATIENT GENDER DATA: Female. status: : No status: NO. PATIENT RELEVANT IMPLANT DATA REVIEWED: Not Applicable RADIOLOGY DEPARTMENT: General X-ray: Exam(s) Completed: Pelv is X-Ray: Pelvis with Hip Left PERIPHERAL IV DATA: Not applicable SIGNED BY: RT Gerard November 29, 2019 11:12 AM PROGRESS HNO ID: [id number] Normal 11-29-2019 [facility] Author: Karine TapiaTransit DriverCORNELIUS Baugh ([id number]) Service: ? Author Type: Registered Nurse Dredge Operator Type: Progress Notes Filed: 11/29/2019 11:32 AM Note Text: ORTHOPAEDIC SURGERY PRE-OP PATIENT Argenis Ho is a 79 year old female PROCEDURE: left Total Hip PROCEDURE DATE: December 10, 2019 CHECKLIST: Informed Consent: Yes- In Unype Quest: Yes Pre-op Skin Preparation Cloths AND Instructions of Use given to patient: Nasal Swab completed for patient: EDUCATION: READINESS TO LEARN COGNITIVE ABILITY: Alert and oriented MOTIVATION TO LEARN: Eager FAMILY SUPPORT: Unable to assess - Family not present INSTRUCTION PROVIDED TO: Patient FACTORS AFFECTING LEARNING: None PHYSICAL LIMITATIONS AFFECTING LEARNING: Pain , Fatigue and Limited Mobility ISSUES REVIEWED: EDUCATION TOPIC/ TEACHING POINTS: -Day of Surgery (see below) -Hospital Course -Incision Care -Home PT -Home pain Medication: Refill Protocol, Side Effects -Afterhours Number Given- page ortho 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 at [phone] METHOD OF INSTRUCTION: Individual instruction, Written instr uction - handouts and Verbal instruction PRE-OPERATIVE INSTRUCTIONS REVIEWED: -Arrival time/location -NPO after midnight -Advanced Directives -ID + insurance card -Bring to hospital: Bipap, Cpap, Non-skid shoes, hearing aid s -Do not bring: Excessive money, valuables, jewelry, medicati ons (unless instructed) -Stop NSAIDS 7 days prior to surgery -Stop Aspirin and herbal supplements 10-14 days prior -Reviewed patient handout instructions for Preop Skin Prepar ation POST-OPERATIVE INSTRUCTIONS: -Call office if questions/concerns -Afterhour for 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 INFECTION MANAGEMENT: -Signs and symptoms of an infection -Importance of contacting the physician MEDICATION SIDE EFFECTS: -Side effects associated with the medication that warrant a call to the physician WOUND CARE: -Correct procedure to perform wound care DISCHARGE PLAN: -Patient referred to rapid recovery program and [facility] was offered to Patient about Rehab facility/ SNF/ Home care. SUPPLEMENTAL MATERIAL GIVEN: Yes RISK FACTORS: None FOLLOW-UP PLAN: Patient instructed to call with any further issues If any questions or concerns arise before the surgery, the p atient was instructed to call the office for assistance. If there are n o further questions or issues, the patient will be seen the day of the procedure, prior to proceeding with surgery. The patient was offered a surgery/procedure at a [facility] facility. The surgeon/proceduralist and patient have discuss ed in detail the risk of exposure to and/or potential harm posed by the C OVID-19 virus with having a surgery/procedure at this time versus the risk of delaying the surgery/procedure. It is not possible to know either the risk of delaying the surgery or procedure or chance of getting an in fection with perfect accuracy, but a joint decision was made between the patient and the surgeon/proceduralist to proceed at this time with the s cheduled surgery/procedure as indicated on the consent form. As a result of the 09/17/19 order by [facility] Director Mary Lraios M.D. to cancel non-essential surgeries that would use PPE, unless special criteria are met, I have reviewed the clinical recor d for this patient and have determined that the scheduled procedure johnson ts the criteria to go forward because there is a presence of severe symptoms causing an inability to perform activities of daily living. The patient was seen and examined under the supervision of CORNELIUS Crump PA-C PROGRESS HNO ID: [id number] Normal 11-29-2019 [facility] Author: Stephanie Robertson SNELLER HAND [facility] ([id number]) Service: ? Author Type: ? Type: Progress Notes Filed: 11/29/2019 9:57 AM Note Text: Argenis Ho is a 79 year old female here today for visit in [facility] Referring Surgeon: Dr. Berg Date of Surgery: 12/10/2019 Planned Surgery/Procedure: ARTHROPLASTY REPLACE JOINT Allergies have been reviewed and verified. They include the following: Cymbalta [Duloxetine] Social History Tobacco Use - Smoking status: Former Smoker Packs/day: 0.15 Years: 5.00 Pack years: 0.75 Types: Cigarettes Last attempt to quit: 06/29/2005 Years since quittin.4 - Smokeless tobacco: Never Used - Tobacco comment: Quit age 45 Substance Use Topics - Alcohol use: Yes Comment: Hx of this being an issue (was taking 3-4 glasses/h s, to [facility] rehab and now 1-2 glasses wine qhs) - Drug use: No Medications reviewed and updated: Yes Stephanie Robertson LPN iron and tibc on 19-11-28 Iron [Mass/Vol] 81 41-186 ug/dL Normal 11-29-2019 [facility] (05765) Comment: Performed By: #### RETIC, B1 2, ALB, FERR, SERFOL, CBCDIF, BMP, IRON ####[facility] Laborat [address], [place] [phone] TIBC 342 232-386 ug/dL Normal 11-29-2019 [facility] (96269) Comment: Performed By: #### RETIC, B1 2, ALB, FERR, SERFOL, CBCDIF, BMP, IRON ####[facility] Laborat [address], [place] [phone] Transferrin Saturatn 24 15-57 % Normal 0 [facility] (62162) Comment: Performed By: #### RETIC, B1 2, ALB, FERR, SERFOL, CBCDIF, BMP, IRON ####[facility] Laborat [address], [place] [phone] history physical on 2019-11-29 HISTORY HNO ID: [id number] Normal 11-29-2019 [facility]: [facility] Service: ? [facility] Author Type: Nurse Practitioner ([id number]) Type: HANDP Filed: 12/01/2019 7:50 PM Note Text: HISTORY AND PHYSICAL EXAMINATION SERVICE DATE: 11/29/2019 SERVICE TIME: 9:31 AM PRIMARY CARE PHYSICIAN: No primary care provider on file. REASON FOR VISIT: Argenis Ho is a 79 year old female who is scheduled for left total hip arthroplasty on 12/10/19 at [facility] at the request of Dr. Kodak Berg for consultation. My final recommendation will be comm unicated back to the requesting physician by way of shared medical re cord or letter. The patient has the following: ACTIVE PROBLEM LIST Secondary localized osteoarthrosis, pelvic region and thigh Primary localized osteoarthrosis, lower leg Primary localized osteoarthrosis, hand Vitamin D Deficiency Pain in Thoracic Spine Cervicalgia Cervical spondylosis without myelopathy Congenital Spondylolisthesis Unspecified disorder of muscle, ligament, and fascia Muscle Weakness (Generalized) Lumbar Spondylosis Lumbago Brachial Neuritis Or Radiculitis NOS Severe Episode of Recurrent Major Depressive Disorder (Hcc) Gerd (Gastroesophageal Reflux Disease) Cervical Arthritis Lumbar Spinal Stenosis Microscopic Hematuria Neoplasm of Uncertain Behavior of Kidney Ex-Smoker Backache, Unspecified Preglaucoma, Unspecified Headache, Unspecified Headache Type Tear Film Insufficiency, Unspecified History of Compression Fracture of Spine Displacement of Lumbar Intervertebral Disc Without Myelopath y History of Dislocation of Hip Occipital Neuralgia of Right Side Iron Deficiency Anemia Current Use of Proton Pump Inhibitor Neftaly Positive History of Colonic Polyps Age-Related Osteoporosis Without Current Pathological Fractu re Encounter for Screening for Cardiovascular Disorders Encounter for Screening for Diabetes Mellitus Copd (Chronic Obstructive Pulmonary Disease) ([facility]) Abnormal Stress Ecg Huang (Dyspnea On Exertion) Subjective CHIEF COMPLAINT: Left hip pain HPI: Patient is a 79 year old female presenting to [facility] with c/o left hip pain. Hip pain started about 5 years ago. Pain is currently a 7/10, described as sore, tired, and shooting. Patient is not curre ntly using anything for pain. Pain is worsened by walking. Patient was evaluated by orthopedics, found to have other secondary osteoarthritis of left hip. The above surgery was recommended; patient has elected to procee d. PAST MEDICAL HISTORY Diagnosis Date - Abnormal stress test Cardiac cath was negative - Age-related osteoporosis without current pathological frac ture 10/16/2017 - Brachial neuritis or radiculitis NOS 05/13/2010 - Bucket handle tear of lateral meniscus(717.41) 12/05/2005 - Cervical arthritis - Cervical spondylosis without myelopathy 04/13/2007 - Cervicalgia 03/22/2007 - Chronic obstructive pulmonary disease (HCC) 02/05/2018 - Compression fracture of lumbar spine, non-traumatic (HCC) 01/31/2014 - Congenital spondylolisthesis 04/13/2007 - Depressive disorder, not elsewhere classified - Displacement of lumbar intervertebral disc without myelopa thy 01/31/2014 - Ex-smoker - GERD (gastroesophageal reflux disease) - Headache 07/17/2012 - History of dislocation of hip 07/09/2014 right - Lumbago 07/28/2009 - Lumbar spinal stenosis - Lumbar spondylosis 07/28/2009 - Microscopic hematuria 08/20/2010 - Muscle weakness (generalized) 09/16/2008 - 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 - COLONOSCOP W/ OR W/O [facility] SPEC Colonoscopy - CYSTO.PANENDO Cystoscopy - KNEE SCOPE,DIAGNOSTIC 06/2010 Arthroscopy, knee - PAST SURGICAL HISTORY OF R THR x 3 - PAST SURGICAL HISTORY OF Bilat TKR - PAST SURGICAL HISTORY OF L Hip pinning (later removed) - PAST SURGICAL HISTORY OF Heart Cath - PAST SURGICAL HISTORY OF Dilation of left ureter - PAST SURGICAL HISTORY OF 05/13 L knee revision - PAST SURGICAL HISTORY OF 2014 R THR - Brandi - PAST SURGICAL HISTORY OF Right 07/2014 total hip replacement FAMILY HISTORY Problem Relation Age of Onset - Cancer Father - Coronary Artery Disease Father Early 70's CABG x5 - Coronary Artery Disease Brother aged 52, [place] - Diabetes Brother Type II - No Family History Other Colon Cancer/Polyps SOCIAL HISTORY: Social History Tobacco Use - Smoking status: Former Smoker Packs/day: 0.15 Years: 1.00 Pack years: 0.15 Types: Cigarettes Last attempt to quit: 06/29/2005 Years since quittin.4 - Smokeless tobacco: Never Used Substance Use Topics - Alcohol use: Yes Frequency: 4 or more times a week Drinks per session: 1 or 2 Binge frequency: Never - Drug use: No Prior to Admission medications as of 11/29/19 0933 Medication Sig Last Dose Taking budesonide-formoterol (SYMBICORT) 160-4.5 mcg/actuation inha ler Inhale 2 Puffs as instructed twice daily. Taking Yes albuterol HFA (PROVENTIL HFA, VENTOLIN HFA) 90 mcg/actuation inhaler INHALE 1 PUFF BY MOUTH EVERY 4 HOURS NEEDED AND 15 MINUTE S PRIOR TO ACTIVITY Taking Yes DULoxetine (CYMBALTA) 60 mg capsule Take 1 capsule by mouth once daily. Taking Yes nortriptyline (PAMELOR) 25 mg capsule Take 1 capsule by mout h daily at bedtime. Taking Yes pantoprazole DR (PROTONIX) 40 mg tablet Take 1 tablet by parul th daily before dinner. Taking Yes FLUoxetine (PROZAC) 40 mg capsule Take 1 capsule by mouth on ce daily. Taking Yes ondansetron (ZOFRAN) 4 mg tablet Take 0.5-1 tablets by mouth every 8 hours as needed for Nausea/Vomiting. Taking Yes celecoxib (CELEBREX) 200 mg capsule Take 1 capsule by mouth once daily. Taking Yes Cholecalciferol, Vitamin D3, 2,000 unit cap Take 1 capsule b y mouth once daily. Taking Yes CALCIUM CITRATE/VITAMIN D3 (CITRACAL + D ORAL) Take by mouth once daily. Taking Yes Nedchhb-Wmrkdqacaomyn-Eohpljnw (EXCEDRIN MIGRAINE) 250-250-6 5 mg per tablet Take 1 tablet by mouth every 6 hours as needed (migra ine). Taking Yes No medication comments found. ALLERGIES Allergen Reactions - Cymbalta [Duloxetin* Other: See Comments Made her feel emotionless. REVIEW OF SYSTEMS: PAIN ASSESSMENT: Pain Pain Level: 7 Pain Location: Hip-Left Description: Aching;Sharp Duration Amount of Time: 2 Duration Units: Weeks Frequency: Intermittent Intervention: Declined General: No weight loss, malaise or fevers. Neuro: + Headaches. Negative for seizures, strokes, neurolog ical conditions. Respiratory: + COPD. Negative for Current cough, Dyspnea, Pn eumonia within 6 weeks (date), URI < 2 weeks. Former smoker. Cardiovascular: No history of HTN requiring medication, no h istory of angina, CHF, NH, cardiac surgery or stents. Denies rest pain , gangrene or revascularization/amputation for PVD. No history of cardiova scular symptoms or problems. Denies current chest pain, palpitation s, fluttering. GI: + GERD. Negative for Nausea, Vomiting, Abdominal pain, L iver disease : No history of dysuria, frequency or incontinence,, stone s or chronic kidney disease BARREL RIFLER BROACH: Negative for abnormal vaginal bleeding, abnormal vagina l discharge. : Denies, No LMP recorded. Patient is postmenopausa l. Endocrine: No history of diabetes. Has not taken steroids wi thin the past 30 days. No history of endocrinological symptoms or problems . Hematology: Easy bruising / bleeding Oncology: No history of CA metastasis, chemo within 30 days, or radiotherapy within 90 days. Has not lost 10% of body wt in 6 months. No history of oncological symptoms or problems. Psych: Depression Musculoskeletal: See HPI Skin: Negative for lesions, rash and itching. Objective PHYSICAL EXAM: VITALS: BP 143/74 Pulse 81 Temp (Src) 98.1 (Oral) Resp 16 Ht 5' 6 (1.68m) Wt 131 lb (59.4kg) SpO2 97% BMI 21.15 kg/(m2). General: Alert and oriented, No acute distress, Healthy appe arance. Body mass index is 21.14 kg/m?. Skin: Normal color, no rash, no lesions. HEENT: EOM, pupils equal, round and reactive. Cardiovascular: Normal S1 AND S2, no rubs, murmurs or gallops. No JVD. Pulse regular. Lungs: Normal breath sounds, no wheezes or crackles. Abdomen: Soft, non-tender, no rigidity. Extremities: Joint tenderness (left hip, back). Neurological: Normal cognition and motor skills. Pulses: Carotid and radial pulses normal +2. Diagnostic tests reviewed for today's visit: Lab Value Units Date High Low HB 13.5 g/dL 11/29/2019 15.5 11.5 HCT 41.9 % 11/29/2019 46.0 36.0 WBC 5.50 k/uL 11/29/2019 11.00 3.70 PLT 298 k/uL 11/29/2019 400 150 NA 139 mmol/L 11/29/2019 144 136 K 3.9 mmol/L 11/29/2019 5.1 3.7 GLUC 105 mg/dL 11/29/2019 99 74 BUN 23 mg/dL 11/29/2019 21 7 CREAT 0.80 mg/dL 11/29/2019 0.96 0.58 Lab Value Units Date High Low ABORHD O NEGA* no uni* 11/29/2019 ABSCREEN NEG no uni* 11/29/2019 No results found for: HBA1C Most recent labs CBC 11/29/19 - WNL BMP 11/29/19 - WNL, except: glucose 105, BUN 23 Iron + TIBC 11/29/19 - 81 / 342 Ferritin 11/29/19 - 107 Type + screen 11/29/19 - resulted EKG 11/29/19 Pending final reading Diagnosis:NORMAL SINUS RHYTHM LEFT VENTRICULAR HYPERTROPHY WITH REPOLARIZATION ABNORMALITY ABNORMAL ECG Ventricular Rate : 67 ?BPM Stress Test 02/21/18 CONCLUSIONS: ?1. SPECT Perfusion Study: Normal. ?2. There is no scintigraphic evidence for inducible ischemi a. ?3. No evidence of scarred myocardium. ?4. Average functional capacity for age and gender. ?5. Left ventricle is normal in size. The left ventricle sys tolic function is normal. ?6. Right ventricle is normal in size. The right ventricle s ystolic function is normal. ?7. This is a low risk scan. ?Gated Stress FBP ?LVEF % 69 Echo 03/28/18 Interpretation summary: Normal LV size. Left ventricular systolic function is normal. The estimated ejection fraction is 55% Stage 1 diastolic dysfunction. Structurally normal valves. Assessment/Plan COPD (chronic obstructive pulmonary disease) ([facility]) Assessment: Stable on Symbicort inhaler daily, patient uses Albuterol inhaler as needed. She requires the Albuterol a few times pe r week. GERD (gastroesophageal reflux disease) Assessment: Stable on Pantoprazole daily. Severe episode of recurrent major depressive disorder ([facility]) Assessment: Stable on Duloxetine, Nortriptyline, and Fluoxet ine daily. METS: Walk a block or two on level ground (2.75 METs) Patient denies any chest pain or undue shortness of breath w ith the above physical activity. ASA Class: 3 ANESTHESIA FINDINGS: Intubation History: No history of difficult intubation Significant Anesthesia Considerations: None. Patient denies post-op nausea/vomiting, slow emergence, life-threatening reactions to anesthesia. Airway Exam: General: Normal appearance. Body mass index is 21.14 kg/m?. Mallampati Score is CLASS IV ULBT: Class I - Lower incisors can bite the upper lip above the kate line Neck: Distance from hyoid to mentum during neck extension is at least 3 finger breaths, Pain with neck movement Mouth: Normal tongue size and small mouth opening. Dentition: Intact Airway History: No abnormal airway history STOP BANG Score: Criteria: Age over 50 (79 year old) Score = 1 PLAN This patient is optimally prepared for surgery. CONSULTS: Patient does not require consults for optimization at this t [facility]. The Following Tests/Procedures Have Been Initiated: Orders placed by surgeon's office: CBC BMP IRON + TIBC FERRITN ALBUMIN VITAMIN B12 FOLATE RETIC COUNT TYPE + SCREEN CONFIRM BLOOD TYPE UA CHEMSTRIP 2019 CORONAVIRUS EKG Planned Anesthetic: Per anesthesia choice Instructions Given to Patient: Instructions located in the after visit summary. Patient given verbal and written preop instructions and voic es comprehension and compliance. SIGNATURE: Alvino Porter APRN.CNP PATIENT NAME: Argenis Ho DATE: November 29, 2019 TIME: 9:31 PM PAGER/CONTACT #: [phone] folate, serum on 19-11-28 Folate [Mass/Vol] 6.9 >4.7 ng/mL Normal 11-29-2019 [facility] ([id number]) Comment: Performed By: #### RETIC, B1 2, ALB, FERR, SERFOL, CBCDIF, BMP, IRON ####[facility] Laborat [address] [place], [place] [phone] ferritin on 2019-11 Ferritin [Mass/Vol] 107.0 14.7-205.1 ng/mL Normal 0 [facility] ([id number]) Comment: Performed By: #### RETIC, B1 2, ALB, FERR, SERFOL, CBCDIF, BMP, IRON ####[facility] Laborat [address], [place] [phone] ecg complete on ECG COMPLETE NAME : ARGENIS HO Normal 020 [facility] PID : [id number] Praveen payton ([id number]) : 1940 Gender : Female Race : ORD : [id number] Procedure Date : Nov 29 2019 08:24:22 Edit Date : Dec 02 2019 18:04:11 Diagnosis:NORMAL SINUS RHYTHM LEFT VENTRICULAR HYPERTROPHY WITH REPOLARIZATION ABNORMALITY ABNORMAL ECG Confirmed by MD GAY SAPNA ([id number]) on 12/02/2019 6:04:10 PM Ventricular Rate : 67 BPM Atrial Rate : 67 BPM P-R Interval : 158 ms QRS Duration : 98 ms Q-T Interval : 412 ms QTC Calculation(Bazett) : 435 ms P [place] : -12 degrees R [place] : 49 degrees T [place] : 63 degrees Test Reason : Location : 119 : A17 A17 Overread By : MD GAY SAPNA Edited By : MD GAY SAPNA Referred By : MAR HOWARD Acquired by : RAMON PAYNE on 2019-11-29 CNOV Office Visit (ORTHMN) [place] 11-29-[address] [place] [address] Clinic ARGENIS HO ([id number]) 1940 [facility] Time Provider Department ([id number]) 11/29/19 10:30 AM KARINE SEPULVEDA (CORNELIUS) ORTHMN During your visit today, we recorded the following informati on about you: Weight Height 59.4 kg 1.676 m CORNELIUS Wilhelm RNFA 11/29/2019 11:32 AM Signed ORTHOPAEDIC SURGERY PRE-OP PATIENT Argenis Ho is a 79 year old female PROCEDURE: left Total Hip PROCEDURE DATE: December 10, 2019 CHECKLIST: Informed Consent: Yes- In [employer]: Yes Pre-op Skin Preparation Cloths AND Instructions of Use given to patient: Nasal Swab completed for patient: EDUCATION: READINESS TO LEARN COGNITIVE ABILITY: Alert and oriented MOTIVATION TO LEARN: Eager FAMILY SUPPORT: Unable to assess - Family not present INSTRUCTION PROVIDED TO: Patient FACTORS AFFECTING LEARNING: None PHYSICAL LIMITATIONS AFFECTING LEARNING: Pain , Fatigu e and Limited Mobility ISSUES REVIEWED: EDUCATION TOPIC/ TEACHING POINTS: -Day of Surgery (see below) -Hospital Course -Incision Care -Home PT -Home pain Medication: Refill Protocol, Side Effects -Afterhours Number Given- page 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 at METHOD OF INSTRUCTION: Individual instruction, Freda harrison instruction - handouts and Verbal instruction PRE-OPERATIVE INSTRUCTIONS REVIEWED: -Arrival time/location -NPO after midnight -Advanced Directives -ID + insurance card -Bring to hospital: Bipap, Cpap, Non-skid shoes, hearing aid s -Do not bring: Excessive money, valuables, jewelry, medicati ons (unless instructed) -Stop NSAIDS 7 days prior to surgery -Stop Aspirin and herbal supplements 10-14 days prior -Reviewed patient handout instructions for Preop Skin Prepar ation POST-OPERATIVE INSTRUCTIONS: -Call office if questions/concerns -Afterhour for 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 INFECTION MANAGEMENT: -Signs and symptoms of an infection -Importance of contacting the physician MEDICATION SIDE EFFECTS: -Side effects associated with the medication that warrant a call to the physician WOUND CARE: -Correct procedure to perform wound care DISCHARGE PLAN: -Patient referred to rapid recovery program and [place] of Choice was offered to Patient about Rehab facility/ SNF/ Home care. SUPPLEMENTAL MATERIAL GIVEN: Yes RISK FACTORS: None FOLLOW-UP PLAN: Patient instructed to call with any further issues If any questions or concerns arise before the surgery, the p atient was instructed to call the offic e for assistance. If there are no further questions or issues, the patient will be seen the day of the procedure , prior to proceeding with surgery. The patient was offered a lopez rgery/procedure at a [facility] facility. The surgeon/proceduralist and jaxon nguyen have discussed in detail the risk of exposure to and/or potential harm posed by the COVID-19 virus with rhodes ving a surgery/procedure at this time versus the risk of delaying t he surgery/procedure. It is not possible to know ei ther the risk of delaying the surgery or procedure or chance of getting an inf ection with perfect accuracy, but a joint decision was mad e between the patient and the surgeon/proceduralist to proceed at this time with the scheduled surgery/pro cedure as indicated on the consent form. As a result of the 09/17/19 order by [facility] [place] [facility] Mary Larios M.D. to cancel non-essential surgeries that would use PPE, unless special criteria are met, I have reviewe d the clinical record for this patient and have determined that the scheduled procedure meets the c riteria to go forward because there is a presence of s evere symptoms causing an inability to perform activities of daily living. The patient was seen and examined under the supervisio n of CORNELIUS Madison PA-C Referring Provider: KODAK BERG [[id number]] Allergies As of Date: 11/29/2019 Noted Allergy Reaction CYMBALTA (DULOXETINE) 01/15/2018 14 - Other: See Comments Comments: Made her feel emotionless. Date Reviewed: 11/29/2019 Reviewed by: Ashley Hurtado MA - Fully Assessed Reason for Visit: Consult [502] Cmt: Secondary osteoarthritis of left hi p Last seen on 11/18/19 By: JAXON Pillai Pre-Op Visit [1235] Primary Visit Diagnosis:Other secondary osteoarthritis of le ft hip [M16.7] Prescriptions as of 11/29/2019 Sig: BUDESONIDE-FORMOTEROL HFA 160* Inhale 2 Puffs as instructed * ALBUTEROL SULFATE HFA 90 MCG/* INHALE 1 PUFF BY MOUTH EVERY * DULOXETINE 60 MG CAPSULE,ISIDRO* Take 1 capsule by mouth once * NORTRIPTYLINE 25 MG CAPSULE Take 1 capsule by mouth daily* PANTOPRAZOLE 40 MG TABLET,DEL* Take 1 tablet by mouth daily * FLUOXETINE 40 MG CAPSULE Take 1 capsule by mouth once * ONDANSETRON HCL 4 MG TABLET Take 0.5-1 tablets by mouth e* CELECOXIB 200 MG CAPSULE Take 1 capsule by mouth once * CHOLECALCIFEROL (VITAMIN D3) * Take 1 capsule by mouth once * CITRACAL + D ORAL Take by mouth once daily. MEKTTVM-KFOERJVVPEXSO-SHATLLY* Take 1 tablet by mouth every * Problem List As Of Date 11/29/2019 Noted Resolved Secondary localized osteoarthrosis, pelvic ovidio*12/05/2005 Primary localized osteoarthrosis, lower leg [M1*12/05/2005 Primary localized osteoarthrosis, hand [M19.049]12/05/2005 Vitamin D deficiency [E55.9] 06/21/2006 Pain in thoracic spine [M54.6] 08/10/2006 Cervicalgia [M54.2] 03/22/2007 More... 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 GERD (gastroesophageal reflux disease) [K21.9] More... 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 Displacement of lumbar intervertebral disc with*01/31/2014 History of dislocation of hip [Z87.39] 07/09/2014 More... Occipital neuralgia of right side [M54.81] 02/24/2016 Iron deficiency anemia [D50.9] 03/02/2017 Current use of proton pump inhibitor [Z79.899] 03/02/2017 NEFTALY positive [R76.8] 03/27/2017 History of colonic polyps [Z86.010] 07/19/2017 Age-related osteoporosis without current pathol*10/16/2017 Encounter for screening for cardiovascular diso*01/15/2018 Encounter for screening for diabetes mellitus [*01/15/2018 COPD (chronic obstructive pulmonary disease) (H*02/05/2018 More... Abnormal stress ECG [R94.39] 02/21/2018 More... HUANG (dyspnea on exertion) [R06.00] 02/21/2018 Encounter Status:Closed by KARINE SEPULVEDA on 11/29/19 cbc and differential on 2019-11-29 Abs Baso 0.05 <0.11 k/uL Normal 11-29-2019 [facility] ([id number]) Comment: Performed By: #### RETIC, B1 2, ALB, FERR, SERFOL, CBCDIF, BMP, IRON ####[facility] Laborat [id number] [place] [phone] Abs [place] 0.65 <0.87 k/uL Normal 11-29-2019 [facility] ([id number]) Comment: Performed By: #### RETIC, B1 2, ALB, FERR, SERFOL, CBCDIF, BMP, IRON ####[facility] [phone] Abs Neut 2.38 1.45-7.50 k/uL Normal 11-29-2019 [facility] ([id number]) Comment: Performed By: #### RETIC, B1 2, ALB, FERR, SERFOL, CBCDIF, BMP, IRON ####[facility] pgwlq[address] AveCJerem[address] [place] [phone] Absolute nRBC <0.01 <0.01 Normal 11-29-2019 [facility] (57503) Comment: Performed By: #### RETIC, B1 2, ALB, FERR, SERFOL, CBCDIF, BMP, IRON ####[facility] [id number] [place] [phone] Basophils/100 WBC (Bld) 0.9 % Normal 2019 [facility] ([id number]) Comment: Performed By: #### RETIC, B1 2, ALB, FERR, SERFOL, CBCDIF, BMP, IRON ####[facility] sohqq[address] AveCJe[place] [place] [phone] DTYPE Auto Diff Normal 11-29-2019 [facility] ([id number]) Comment: Performed By: #### RETIC, B1 2, ALB, FERR, SERFOL, CBCDIF, BMP, IRON ####[facility] Laborat [address]jm[address] [place] [phone] Eosinophils (Bld) [#/Vol] 0.29 <0.46 k/uL Normal 11-01 [facility] ([id number]) Comment: Performed By: #### RETIC, B1 2, ALB, FERR, SERFOL, CBCDIF, BMP, IRON ####[facility] Laborat [id number] AveClevelandJennifer [place] [phone] Eosinophils/100 WBC (Bld) 5.3 % Normal 11-01 [facility] (04502) Comment: Performed By: #### RETIC, B1 2, ALB, FERR, SERFOL, CBCDIF, BMP, IRON ####[facility] axtzd[address] [place] [phone] Erythrocyte distribution 13.2 11.5-15.0 % Normal 11-28 [facility] width (RBC) [Ratio] [facility] ([id number]) Comment: Performed By: #### RETIC, B1 2, ALB, FERR, SERFOL, CBCDIF, BMP, IRON ####[facility] [address]qcso[address] [place] [phone] Hematocrit (Bld) [Volume 41.9 36.0-46.0 % Normal 11-28 [facility] fraction] [facility] ([id number]) Comment: Performed By: #### RETIC, B1 2, ALB, FERR, SERFOL, CBCDIF, BMP, IRON ####[facility] Laborat [id number] [place] [phone] Hemoglobin (Bld) 13.5 11.5-15.5 g/dL Normal 11-29-2019 [facility] [Mass/Vol] [facility] ([id number]) Comment: Performed By: #### RETIC, B1 2, ALB, FERR, SERFOL, CBCDIF, BMP, IRON ####[facility]at [id number] AveClevelTerri [place] [phone] Lymphocytes (Bld) [#/Vol] 2.11 1.00-4.00 k/uL Normal 11-01 [facility] ([id number]) Comment: Performed By: #### RETIC, B1 2, ALB, FERR, SERFOL, CBCDIF, BMP, IRON ####[facility] Laborat qwqsg[address] AveClevelGrand [place], [place] [phone] Lymphocytes/100 WBC (Bld) 38.4 % Normal 11-01 [facility] ([id number]) Comment: Performed By: #### RETIC, B1 2, ALB, FERR, SERFOL, CBCDIF, BMP, IRON ####[facility]at stsyc[address]CK[address] [place] [phone] MCH (RBC) [Entitic mass] 32.2 26.0-34.0 pG Normal 11-28 [facility] (72596) Comment: Performed By: #### RETIC, B1 2, ALB, FERR, SERFOL, CBCDIF, BMP, IRON ####[facility] Laborat [address]khcy[address]CK[address] [place] [phone] MCHC (RBC) [Mass/Vol] 32.2 30.5-36.0 g/dL Normal 11-29-19 [facility] (47859) Comment: Performed By: #### RETIC, B1 2, ALB, FERR, SERFOL, CBCDIF, BMP, IRON ####[facility] Laborat vkokc[address] AveClevelTerri [place] [phone] MCV (RBC) [Entitic vol] 100.0 80.0-100.0 fL Normal 11-28 [facility] (77786) Comment: Performed By: #### RETIC, B1 2, ALB, FERR, SERFOL, CBCDIF, BMP, IRON ####[facility] Laborat hfigp[address] AveClevelGrand [place], [place] [phone] Monocytes/100 WBC (Bld) 11.8 % Normal 2019 [facility] (31544) Comment: Performed By: #### RETIC, B1 2, ALB, FERR, SERFOL, CBCDIF, BMP, IRON ####[facility] Laborat i[address]CK[address] [place] [phone] Neutrophils/100 WBC (Bld) 43.6 % Normal 11-01 [facility] (61968) Comment: Performed By: #### RETIC, B1 2, ALB, FERR, SERFOL, CBCDIF, BMP, IRON ####[facility] Laborat [id number] [place] [phone] NRBCs 0.0 0 /100 WBC Normal 11-29-2019 [facility] (66392) Comment: Performed By: #### RETIC, B1 2, ALB, FERR, SERFOL, CBCDIF, BMP, IRON ####[facility] [id number]CK[address] [place] [phone] Platelet mean volume 9.1 9.0-12.7 fL Normal 0 [facility] (Bld) [Entitic vol] ([id number]) Comment: Performed By: #### RETIC, B1 2, ALB, FERR, SERFOL, CBCDIF, BMP, IRON ####[facility] lzsgt[address]CK[address] [place] [phone] Platelets (Bld) [#/Vol] 298 150-400 k/uL Normal 2019 [facility] (34710) Comment: Performed By: #### RETIC, B1 2, ALB, FERR, SERFOL, CBCDIF, BMP, IRON ####[facility] lhksc[address]CK[address] [place] [phone] RBC (Bld) [#/Vol] 4.19 3.90-5.20 m/uL Normal 11-29-2019 C [facility] (34734) Comment: Performed By: #### RETIC, B1 2, ALB, FERR, SERFOL, CBCDIF, BMP, IRON ####[facility] ejrqe[address] AveCMargaret[place], [place] [phone] WBC (Bld) [#/Vol] 5.50 3.70-11.00 k/uL Normal 11-29-2019 [facility] (72061) Comment: Performed By: #### RETIC, B1 2, ALB, FERR, SERFOL, CBCDIF, BMP, IRON ####[facility] ov[address] AveCMargaret[place], [place] [phone] basic metabolic panl on 2019-11-29 Anion gap [Moles/Vol] 12 9-18 mmol/L Normal 11-29-19 20 [facility] (13546) Comment: Performed By: #### RETIC, B1 2, ALB, FERR, SERFOL, CBCDIF, BMP, IRON ####[facility] AveCMarg[place], [place] [phone] Calcium [Mass/Vol] 10.1 8.5-10.2 mg/dL Normal 11-29-2019 [facility] ([id number]) Comment: Performed By: #### RETIC, B1 2, ALB, FERR, SERFOL, CBCDIF, BMP, IRON ####[facility] AveCM[address], [place] [phone] Chloride [Moles/Vol] 102 97-105 mmol/L Normal 0 [facility] (69655) Comment: Performed By: #### RETIC, B1 2, ALB, FERR, SERFOL, CBCDIF, BMP, IRON ####[facility] zkbtr[address] AveCMarg[place], [place] [phone] CO2 [Moles/Vol] 25 22-30 mmol/L Normal 11-29-2019 [facility] (64205) Comment: Performed By: #### RETIC, B1 2, ALB, FERR, SERFOL, CBCDIF, BMP, IRON ####[facility] elwqa[address] AveCMarg[place], [place] [phone] Creatinine [Mass/Vol] 0.80 0.58-0.96 mg/dL Normal 11-29-19 20 [facility] (92310) Comment: Performed By: #### RETIC, B1 2, ALB, FERR, SERFOL, CBCDIF, BMP, IRON ####[facility] Laborat rtlsc[address] AveCMargaret[place], [place] [phone] eGFR- Amer. >60 Normal 11-29-2019 [facility] (83558) Comment: Performed By: #### RETIC, B1 2, ALB, FERR, SERFOL, CBCDIF, BMP, IRON ####[facility] Laborat mbqcc[address] AveCMargaret[place], [place] [phone] GFR/1.73 sq M predicted >60 mL/min/{1.73_m2} Normal 11-29-2019 [facility] among non-blacks MDRD [facility] ([id number]) (S/P/Bld) [Vol rate/Area] Comment: Result Comment: eGFR (Estima christian GFR) Units of measure: mL/min/1.73 meters squared eGFR is derived from the ree xpressed MDRD Study equation using the following parameters: serum creatinine, age, gender and race. The creatinine assay has been calibrated to be traceable to IDMS. An eGFR <60 mL/min/1.73m2 fo r >3 months is consistent with chronic kidney disease. Refer to KDOQI guidelines for clinical interpretation. In patients with unstable re nal function, e.g. those with acute kidney injury, the eGFR may not accurately reflect actual GFR. Performed By: #### RETIC, B1 2, ALB, FERR, SERFOL, CBCDIF, BMP, IRON ####[facility]at cnggd[address] AvCort[address], [place] [phone] Glucose [Mass/Vol] 105 74-99 mg/dL High 11-29-2019 [facility] (33709) Comment: Result Comment: The [place] Diabetes Association (ADA) provides guidance for cutoff values for fasting glucose and random glucose. The ADA defines fasting as no caloric intake for at least 8 hours. Fas ting plasma glucose results between 100 to 125 mg/dL indicate increased risk for diabetes (prediabetes). Fasting plasma glucose resul ts greater than or equal to 126 mg/dL meet the criteria for diagnosis of diabetes. In the absence of unequivocal hyperglycemia, results should be confirmed by repeat testing. In a patient with classic s ymptoms of hyperglycemia or hyperglycemic crisis, random plasma glucose results greater than or equal to 200 mg/dL meet the criteria for diagnosis of diabetes. Reference: Standards of [facility] Care in Diabetes 2016, [place] Diabetes Association. Diabetes Care. 2016.39(Suppl 1). Performed By: #### RETIC, B1 2, ALB, FERR, SERFOL, CBCDIF, BMP, IRON ####[facility] Laborat [id number], [place] [phone] Potassium [Moles/Vol] 3.9 3.7-5.1 mmol/L Normal 11-29-19 [facility] ([id number]) Comment: Performed By: #### RETIC, B1 2, ALB, FERR, SERFOL, CBCDIF, BMP, IRON ####[facility] [id number], [place] [phone] Sodium [Moles/Vol] 139 136-144 mmol/L Normal 11-29-2019 [facility] ([id number]) Comment: Performed By: #### RETIC, B1 2, ALB, FERR, SERFOL, CBCDIF, BMP, IRON ####[facility] [id number], [place] [phone] Urea nitrogen [Mass/Vol] 23 7-21 mg/dL High 11-28 [facility] ([id number]) Comment: Performed By: #### RETIC, B1 2, ALB, FERR, SERFOL, CBCDIF, BMP, IRON ####[facility] [address], [place] [phone] albumin on Albumin [Mass/Vol] 4.6 3.9-4.9 g/dL Normal 11-29-2019 [facility] (31007) Comment: Performed By: #### RETIC, B1 2, ALB, FERR, SERFOL, CBCDIF, BMP, IRON ####[facility] Laborat [id number] [place], [place] [phone] progress on 2019-11 PROGRESS HNO ID: [id number] Normal 11-21-2019 [facility] Author: Wanda (Rn) Zaki Quinones RN [facility] ([id number]) Service: ? Author Type: Registered Nurse Type: Progress Notes Filed: 11/21/2019 9:11 AM Note Text: Patient referred to Blood Management for pre-surgical optimi zation. Current and complete lab data unavailable. Unable to complet e evaluation. cnpn on 2019-11-20 CNPN Telephone (ORTHMN) Normal 11-20-2019 [facility] ARGENIS HO ([id number]) 1940 [address] [facility] Date Time Provider Department () 11/20/19 KODAK BERG ORTHMN During your visit today, we recorded the following informati on about you: Ngozi Ribeiro 11/20/2019 12:36 PM Signed Patient calling wanting to inform Dr. Berg that she h as been diagnosed with COPD and Asthma since the last time she saw him. Patient can be reached at [phone]. Please advise. Son Grayson 11/20/2019 1:32 PM Signed noted Allergies As of Date: 11/20/2019 Noted Allergy Reaction CYMBALTA (DULOXETINE) 01/15/2018 14 - Other: See Comments Comments: Made her feel emotionless. Date Reviewed: 02/21/2019 Reviewed by: Mar Sherman) JAXON Howard - Fully Assessed Reason for Visit: Patient Update [1234] Prescriptions as of 11/20/2019 Sig: DULOXETINE 60 MG CAPSULE,ISIDRO* Take 1 capsule by mouth once * NORTRIPTYLINE 25 MG CAPSULE Take 1 capsule by mouth daily* PANTOPRAZOLE 40 MG TABLET,DEL* Take 1 tablet by mouth daily * FLUOXETINE 40 MG CAPSULE Take 1 capsule by mouth once * ONDANSETRON HCL 4 MG TABLET Take 0.5-1 tablets by mouth e* CELECOXIB 200 MG CAPSULE Take 1 capsule by mouth once * CHOLECALCIFEROL (VITAMIN D3) * Take 1 capsule by mouth once * CITRACAL + D ORAL Take by mouth once daily. [id number]* Take 1 tablet by mouth every * Problem List As Of Date 11/20/2019 Noted Resolved Secondary localized osteoarthrosis, pelvic ovidio*12/05/2005 Primary localized osteoarthrosis, lower leg [M1*12/05/2005 Primary localized osteoarthrosis, hand [M19.049]12/05/2005 Vitamin D deficiency [E55.9] 06/21/2006 Pain in thoracic spine [M54.6] 08/10/2006 Cervicalgia [M54.2] 03/22/2007 More... 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 Displacement of lumbar intervertebral disc with*01/31/2014 History of dislocation of hip [Z87.39] 07/09/2014 More... Occipital neuralgia of right side [M54.81] 02/24/2016 Iron deficiency anemia [D50.9] 03/02/2017 Current use of proton pump inhibitor [Z79.899] 03/02/2017 NEFTALY positive [R76.8] 03/27/2017 History of colonic polyps [Z86.010] 07/19/2017 Age-related osteoporosis without current pathol*10/16/2017 Encounter for screening for cardiovascular diso*01/15/2018 Encounter for screening for diabetes mellitus [*01/15/2018 Chronic obstructive pulmonary disease (HCC) [J4*02/05/2018 Abnormal stress ECG [R94.39] 02/21/2018 More... HUANG (dyspnea on exertion) [R06.00] 02/21/2018 Encounter Status:Closed by SON GRAYSON on 11/20/19 hosp on 2019-11-18 HOSP Patient:Argenis Ho Normal 020 [facility] MRN: Kali ([id number]) Height:5' 6(1.676 m) Weight:131 lb (59.421 kg) Outpatient Medications as of 12/10/19: budesonide-formoterol (SYMBICORT) 160-4.5 mcg/actuation inha ler albuterol HFA (PROVENTIL HFA, VENTOLIN HFA) 90 mcg/actuation inhaler DULoxetine (CYMBALTA) 60 mg capsule nortriptyline (PAMELOR) [address] (PROTONIX) 40 mg tablet FLUoxetine (PROZAC) 40 mg capsule ondansetron (ZOFRAN) 4 mg tablet celecoxib (CELEBREX) 200 mg capsule Cholecalciferol, Vitamin D3, 2,000 unit cap CALCIUM CITRATE/VITAMIN D3 (CITRACAL + D ORAL) Pgtgutl-Mwqabwffzkqyd-Sfnlwars (EXCEDRIN MIGRAINE) 250-250 -65 mg per tablet Admission/Clinic Administered Medications as of 12/10/19: lidocaine (PF) 10 mg/mL (1 %) 1-2 mg injection (XYLOCAINE) lactated ringers infusion ceFAZolin iv piggyback 2 g in D5W (iso-osmotic) 100 mL (ANCE F) tranexamic acid 1,000 mg in NaCl 0.9% 100 mL (CYKLOKAPRON) tranexamic acid 1,000 mg in NaCl 0.9% 100 mL (CYKLOKAPRON) Problem List: Secondary localized osteoarthrosis, pelvic region and thigh [M16.7] Primary localized osteoarthrosis, lower leg [M17.10] Primary localized osteoarthrosis, hand [M19.049] Vitamin D deficiency [E55.9] Pain in thoracic spine [M54.6] Cervicalgia [M54.2] Cervical spondylosis without myelopathy [M47.812] Congenital spondylolisthesis [Q76.2] Unspecified disorder of muscle, ligament, and fascia [M62.9] Muscle weakness (generalized) [M62.81] Lumbar spondylosis [M47.816] Lumbago [M54.5] Brachial neuritis or radiculitis NOS [M54.12] Severe episode of recurrent major depressive disorder (HCC) [F33.2] GERD (gastroesophageal reflux disease) [K21.9] Cervical arthritis [M47.812] Lumbar spinal stenosis [M48.061] Microscopic hematuria [R31.29] 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] Ex-smoker [Z87.891] Backache, unspecified [M54.9] Preglaucoma, 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] Headache, unspecified headache type [R51] Tear film insufficiency, unspecified [H04.129] History of compression fracture of spine [Z87.81] Displacement of lumbar intervertebral disc without myelopath y [M51.26] History of dislocation of hip [Z87.39] Occipital neuralgia of right side [M54.81] Iron deficiency anemia [D50.9] Current use of proton pump inhibitor [Z79.899] NEFTALY positive [R76.8] History of colonic polyps [Z86.010] Age-related osteoporosis without current pathological fractu re [M81.0] Encounter for screening for cardiovascular disorders [Z13.6] Encounter for screening for diabetes mellitus [Z13.1] COPD (chronic obstructive pulmonary disease) (HCC) [J44.9] Abnormal stress ECG [R94.39] HUANG (dyspnea on exertion) [R06.00] Allergies: Cymbalta [Duloxetine] Date Verified: 12/10/19 Lab Values Lab Value Units Date High Low POTA* 3.9 mmol/L 11/29/2019 5.1 3.7 REMBERTO* 41.9 % 11/29/2019 46.0 36.0 Progress Notes (RADIO GENERAL MAIN A21): RT Gerard 11/29/2019 11:12 AM Signed Radiology Service Progress Note PATIENT NAME: Argenis Ho DATE OF SERVICE: November 29, 2019 TIME: 11:12 AM PATIENT IDENTITY VERIFICATION COMPLETED USING TWO (2) IDEN TIFIERS: Name and Date of confirmed by patient verbally. FALL SCREENING: Has the patient had 2 falls in the last ye ar or 1 fall with injury or currently using an Ambulatory Assistive Device (Wa lker, Cane, Wheelchair, Crutches, etc.)? No PATIENT GENDER DATA: Female. status: : No status: NO. PATIENT RELEVANT IMPLANT DATA REVIEWED: Not Applicable RADIOLOGY DEPARTMENT: General X-ray: Exam(s) Completed : Pelvis X-Ray: Pelvis with Hip Left PERIPHERAL IV DATA: Not applicable SIGNED BY: RT Gerard November 29, 2019 11:12 AM Progress Notes (ORTH MAIN): TEJ WilhelmA, TANK FILLER 11/29/2019 11:32 AM Signed ORTHOPAEDIC SURGERY PRE-OP PATIENT Argenis Ho is a 79 year old female PROCEDURE: left Total Hip PROCEDURE DATE: December 10, 2019 CHECKLIST: Informed Consent: Yes- In [employer]: Yes Pre-op Skin Preparation Cloths AND Instructions of Use given to patient: Nasal Swab completed for patient: EDUCATION: READINESS TO LEARN COGNITIVE ABILITY: Alert and oriented MOTIVATION TO LEARN: Eager FAMILY SUPPORT: Unable to assess - Family not present INSTRUCTION PROVIDED TO: Patient FACTORS AFFECTING LEARNING: None PHYSICAL LIMITATIONS AFFECTING LEARNING: Pain , Fatigu e and Limited Mobility ISSUES REVIEWED: EDUCATION TOPIC/ TEACHING POINTS: -Day of Surgery (see below) -Hospital Course -Incision Care -Home PT -Home pain Medication: Refill Protocol, Side Effects -Afterhours Number Given- page ortho 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 at [phone] METHOD OF INSTRUCTION: Individual instruction, W ritten instruction - handouts and Verbal instruction PRE-OPERATIVE INSTRUCTIONS REVIEWED: -Arrival time/location -NPO after midnight -Advanced Directives -ID + insurance card -Bring to hospital: Bipap, Cpap, Non-skid shoes, hearing aid s -Do not bring: Excessive money, valuables, jewelry, medicati ons (unless instructed) -Stop NSAIDS 7 days prior to surgery -Stop Aspirin and herbal supplements 10-14 days prior -Reviewed patient handout instructions for Preop Skin Prepar ation POST-OPERATIVE INSTRUCTIONS: -Call office if questions/concerns -Afterhour for 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 INFECTION MANAGEMENT: -Signs and symptoms of an infection -Importance of contacting the physician MEDICATION SIDE EFFECTS: -Side effects associated with the medication that warrant a call to the physician WOUND CARE: -Correct procedure to perform wound care DISCHARGE PLAN: -Patient referred to rapid recovery program and [facility] was offered to Patient about Rehab facility/ SNF/ Home care. SUPPLEMENTAL MATERIAL GIVEN: Yes RISK FACTORS: None FOLLOW-UP PLAN: Patient instructed to call with any further issues If any questions or concerns arise before the surgery, the p atient was instructed to call the offic e for assistance. If there are no further questions or issues, the patient will be seen the day of the procedure , prior to proceeding with surgery. The patient was offered a lopez rgery/procedure at a [facility] facility. The surgeon/proceduralist and jaxon nguyen have discussed in detail the risk of exposure to and/or potential harm posed by the COVID-19 virus with rhodes ving a surgery/procedure at this time versus the risk of delaying t he surgery/procedure. It is not possible to know ei ther the risk of delaying the surgery or procedure or chance of getting an inf ection with perfect accuracy, but a joint decision was mad e between the patient and the surgeon/proceduralist to proceed at this time with the scheduled surgery/procedure as indicated on the consent form. As a result of the [facility] to cancel non-es sential surgeries that would use PPE, unless special criteria are met, I have rev iewed the clinical record for this patient and have determined that the schedule d procedure meets the criteria to go forward because there is a presence of severe symptoms causing an inability to perform activities of daily living. The patient was seen and examined under the supervisio n of CORNELIUS Madison PA-C on 2019-11-18 CNPN Telephone (ORAVON) Normal 11-18-2019 [facility] GEORGIAARGENIS ([id number]) 1940 [facility] Date Time Provider Department ([id number]) 11/18/19 KODAK BERG During your visit today, we recorded the following informati on about you: Corinne Lennon [facility] Service Spec 11/18/2019 2:44 PM Winsome d Patient is calling to see when her surgery will be schedul ed? Please review and advise. Mar Howard PA-C, PA 11/18/2019 3:06 PM Signed Spoke with patient, confirmed surgery date for December 10 2019 Allergies As of Date: 11/18/2019 Noted Allergy Reaction CYMBALTA (DULOXETINE) 01/15/2018 14 - Other: See Comments Comments: Made her feel emotionless. Date Reviewed: 02/21/2019 Reviewed by: Mar Sherman) JAXON Howard - Fully Assessed Reason for Visit: Question [7766] Primary Visit Diagnosis:Pain in left hip [M25.552] Other Visit Diagnosis:Pain in both knees, unspecified [facility] [M25.561, M25.562] Order(s):XR HIP BILAT 5V PEL/AP/LAT EACH HIP [[id number]] Order #: [id number] FUTURE XR KNEE GENERAL 4V AP BOTH/PA BOTH/LAT/MERC BILAT [[id number]] Order #: [id number] FUTURE Prescriptions as of 11/18/2019 Sig: DULOXETINE 60 MG CAPSULE,ISIDRO* Take 1 capsule by mouth once * NORTRIPTYLINE 25 MG CAPSULE Take 1 capsule by mouth daily* PANTOPRAZOLE 40 MG TABLET,DEL* Take 1 tablet by mouth daily * FLUOXETINE 40 MG CAPSULE Take 1 capsule by mouth once * ONDANSETRON HCL 4 MG TABLET Take 0.5-1 tablets by mouth e* CELECOXIB 200 MG CAPSULE Take 1 capsule by mouth once * CHOLECALCIFEROL (VITAMIN D3) * Take 1 capsule by mouth once * CITRACAL + D ORAL Take by mouth once daily. [id number]* Take 1 tablet by mouth every * Problem List As Of Date 11/18/2019 Noted Resolved Secondary localized osteoarthrosis, pelvic ovidio*12/05/2005 Primary localized osteoarthrosis, lower leg [M1*12/05/2005 Primary localized osteoarthrosis, hand [M19.049]12/05/2005 Vitamin D deficiency [E55.9] 06/21/2006 Pain in thoracic spine [M54.6] 08/10/2006 Cervicalgia [M54.2] 03/22/2007 More... 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 Displacement of lumbar intervertebral disc with*01/31/2014 History of dislocation of hip [Z87.39] 07/09/2014 More... Occipital neuralgia of right side [M54.81] 02/24/2016 Iron deficiency anemia [D50.9] 03/02/2017 Current use of proton pump inhibitor [Z79.899] 03/02/2017 NEFTALY positive [R76.8] 03/27/2017 History of colonic polyps [Z86.010] 07/19/2017 Age-related osteoporosis without current pathol*10/16/2017 Encounter for screening for cardiovascular diso*01/15/2018 Encounter for screening for diabetes mellitus [*01/15/2018 Chronic obstructive pulmonary disease (HCC) [J4*02/05/2018 Abnormal stress ECG [R94.39] 02/21/2018 More... HUANG (dyspnea on exertion) [R06.00] 02/21/2018 Encounter Status:Closed by MAR HOWARD on 11/18/19 cr-gs xr hip uni routine [id number] import on 2019-08-28 CR-GS XR HIP UNI Images were obtained outside of [facility] Normal 08-28-2019 [facility] ROUTINE [id number] [facility] ([id number]) IMPORT progress on 2019-05 PROGRESS HNO ID: [id number] Normal 05-06-2019 [facility] Author: Leisa Cui ([id number]) Service: ? Author Type: Monotype Operator Type: Progress Notes Filed: 05/06/2019 1:48 PM Note Text: POPULATION HEALTH GAS OR WATER METER INSTALLER QUICKNOTE Provider Action/FYI: I spoke with Ashley and she states she's no longer a Dr. Alvarado patient, but her is. I removed Dr. Alvarado as her PCP. Patient identified by name and . Leisa Cui CMA progress on 2019-04 PROGRESS HNO ID: [id number] Normal 05-01-2019 [facility] Author: Leisa Bass ([id number]) Service: ? Author Type: Monotype Operator Type: Progress Notes Filed: 05/06/2019 1:48 PM Note Text: POPULATION HEALTH GAS OR WATER METER INSTALLER QUICKNOTE Provider Action/FYI: 1st attempt - MyChart message sent. Patient identified by name and . Leisa Cui CMA PROGRESS HNO ID: [id number] Normal 05-01-2019 [facility] Author: Leisa Bass ([id number]) Service: ? Author Type: Monotype Operator Type: Progress Notes Filed: 05/06/2019 1:48 PM Note Text: PHMA TEAMLET DOCUMENTATION Provider Action/FYI: PSR Action/FYI: - due for follow up Health Maintenance Due: INFLUENZA(1) due on 03/03/2019 Teamlet has identified patient by name and date of . Team: Sanjuana Quach ? Last Office Visit:11/06/2018 ? Next Office Visit: Visit date not found ? Last BP/Labs: Blood Pressure: Last 3 Encounter BP Readings: Date: BP: 2018 122/78 04/26/2018 108/74 04/12/2018 146/70 Lipids: Cholesterol, Total (mg/dL) Date Value 04/11/2018 222 03/23/2017 212 HDL Cholesterol (mg/dL) Date Value 04/11/2018 65 03/23/2017 80 LDL Cholesterol (mg/dL) Date Value 04/11/2018 128 03/23/2017 110 Triglyceride (mg/dL) Date Value 04/11/2018 146 03/23/2017 112 HGB A1C: No results found for: HBA1C TSH: TSH Date Value 11/22/2018 1.34 IU/ml 11/15/2013 1.820 uU/mL 02/02/2007 1.365 UIU/ML ) Care Gap: Plan: ? Confirm PCP / Status - unknown ? Type of appointment needed: Follow up appointment with pcp or adjudication specialist ? Consultation Appointments: n/a Labs, HM and Immunization: Health Maintenance Due: INFLUENZA(1) due on 03/03/2019 Leisa Cui CMA cnptoutreaaziza on 201 03-12-30 CNPTOUTREACH Patient Outreach (FAMPWS) Normal 1 [facility] ARGENIS Carrillo ([id number]) 1940 [address] [facility] Date Time Provider Department ([id number]) 05/01/19 LEISA CUI) FAMPWS During your visit today, we recorded the following informati on about you: Leisa Cui CMA 05/06/2019 1:48 PM Signed PHMA TEAMLET DOCUMENTATION Provider Action/FYI: PSR Action/FYI: - due for follow up Health Maintenance Due: INFLUENZA(1) due on 03/03/2019 Teamlet has identified patient by name and date of . Team: Sanjuana Quach ? Last Office Visit:11/06/2018 ? Next Office Visit: Visit date not found ? Last BP/Labs: Blood Pressure: Last 3 Encounter BP Readings: Date: BP: 2018 122/78 04/26/2018 108/74 04/12/2018 146/70 Lipids: Cholesterol, Total (mg/dL) Date Value 04/11/2018 222 03/23/2017 212 HDL Cholesterol (mg/dL) Date Value 04/11/2018 65 03/23/2017 80 LDL Cholesterol (mg/dL) Date Value 04/11/2018 128 03/23/2017 110 Triglyceride (mg/dL) Date Value 04/11/2018 146 03/23/2017 112 HGB A1C: No results found for: HBA1C TSH: TSH Date Value 11/22/2018 1.34 IU/ml 11/15/2013 1.820 uU/mL 02/02/2007 1.365 UIU/ML ) Care Gap: Plan: ? Confirm PCP / Status - unknown ? Type of appointment needed: Follow up appointment with pcp or adjudication specialist ? Consultation Appointments: n/a Labs, HM and Immunization: Health Maintenance Due: INFLUENZA(1) due on 03/03/2019 Leisa CuiSARATH Leisa Cui [facility] 05/06/2019 1:[address] [facility] GAS OR WATER METER INSTALLER YOVANI Provider Action/FYI: 1st attempt - ClickSquaredt message sent. Patient identified by name and . SARATH Orta [address] RESEARCHER 05/06/2019 1:[address] [facility] GAS OR WATER METER INSTALLER YOVANI Provider Action/FYI: I spoke with Ashley and she states she's no longer a Dr. Alvarado patient, but her is. I removed Dr. Alvarado as her PCP. Patient identified by name and . Leisa Cui [address] RESEARCHER Allergies As of Date: 05/01/2019 Noted Allergy Reaction CYMBALTA (DULOXETINE) 01/15/2018 14 - Other: See Comments Comments: Made her feel emotionless. Date Reviewed: 02/21/2019 Reviewed by: Mar Sherman) JAXON Howard - Fully Assessed Reason for Visit: PHMA/Care Gap Outreach [[id number]] Prescriptions as of 05/01/2019 Sig: DULOXETINE 60 MG CAPSULE,ISIDRO* Take 1 capsule by mouth once * NORTRIPTYLINE 25 MG CAPSULE Take 1 capsule by mouth daily* PANTOPRAZOLE 40 MG TABLET,DEL* Take 1 tablet by mouth daily * FLUOXETINE 40 MG CAPSULE Take 1 capsule by mouth once * ONDANSETRON HCL 4 MG TABLET Take 0.5-1 tablets by mouth e* CELECOXIB 200 MG CAPSULE Take 1 capsule by mouth once * CHOLECALCIFEROL (VITAMIN D3) * Take 1 capsule by mouth once * CITRACAL + D ORAL Take by mouth once daily. [id number]* Take 1 tablet by mouth every * Problem List As Of Date 05/01/2019 Noted Resolved Secondary localized osteoarthrosis, pelvic ovidio*INVALID FOR* Primary localized osteoarthrosis, lower leg [M1*INVALID FOR* Primary localized osteoarthrosis, hand [M19.049]INVALID FOR* Vitamin D deficiency [E55.9] INVALID FOR* Pain in thoracic spine [M54.6] INVALID FOR* Cervicalgia [M54.2] INVALID FOR* More... 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 Displacement of lumbar intervertebral disc with*INVALID FOR* History of dislocation of hip [Z87.39] INVALID FOR* More... Occipital neuralgia of right side [M54.81] INVALID FOR* Iron deficiency anemia [D50.9] INVALID FOR* Current use of proton pump inhibitor [Z79.899] INVALID FOR* NEFTALY positive [R76.8] INVALID FOR* History of colonic polyps [Z86.010] INVALID FOR* Age-related osteoporosis without current pathol*INVALID FOR* Encounter for screening for cardiovascular diso*INVALID FOR* Encounter for screening for diabetes mellitus [*INVALID FOR* Chronic obstructive pulmonary disease (HCC) [J4*INVALID FOR* Abnormal stress ECG [R94.39] INVALID FOR* More... UHANG (dyspnea on exertion) [R06.09] INVALID FOR* Encounter Status:Closed by LEISA CUI CMA on 05/06/19 lipase on 2018-04-02 1 Lipase enzyme act/vol 28 16-61 U/L Normal 04-12-20 18 [facility] ([id number]) Comment: Performed By: #### CBCNajma RAM MP, LIPA ####[facility] Z[address] [place] [address] ed prov note on 201 02-09-11 Protein mass HNO ID: [id number]: Marlo Black Normal 04-12-2018 [place] AUSTIN Barillaservice: (none)Author Hospital Type: PhysicianType: ED Provider ([id number]) NotesFiled: 04/12/2018 9:37 PMNote Text:ED Provider NotePatient Name: Argenis Jensen MarsMRN: [id number] DATE: 04/12/18HistoryPatient presents with:Constipation: for over a weekThe patient presents with complaints of having generalized abdominaldiscomfort and being constipated for a week. She is passing gas deniesprior history of abdominal surgeries denies vomiting no history of feverchills denies frequency hematuria or dysuria she has tried enemas andmagnesium citrate at home without any results.PAST MEDICAL HISTORYDiagnosis Date- Abnormal stress test Cardiac cath was negative- Age-related osteoporosis without current pathological fracture 10/16/2017- Brachial neuritis or radiculitis NOS 05/13/2010- Bucket handle tear of lateral meniscus(717.41) 12/05/2005- Cervical arthritis- Cervical spondylosis without myelopathy 04/13/2007- Cervicalgia 03/22/2007- Chronic obstructive pulmonary disease (HCC) 02/05/2018- Compression fracture of lumbar spine, non-traumatic (HCC) 01/31/2014- Congenital spondylolisthesis 04/13/2007- Depressive disorder, not elsewhere classified- Displacement of lumbar intervertebral disc without myelopathy 01/31/2014- Ex-smoker- GERD (gastroesophageal reflux disease)- Headache 07/17/2012- History of dislocation of hip 07/09/2014 right- Lumbago 07/28/2009- Lumbar spinal stenosis- Lumbar spondylosis 07/28/2009- Microscopic hematuria 08/20/2010- Muscle weakness (generalized) 09/16/2008- 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 Repeat US- Occipital neuralgia of right side 02/24/2016- Osteoporosis- Pain in thoracic spine 08/10/2006- PELVIC FRACTURE NOS-CLOS: left pubic rami 06/21/2006- Preglaucoma, unspecified 07/17/2012- Primary localized osteoarthrosis, hand 12/05/2005- Primary localized osteoarthrosis, lower leg 12/05/2005- Secondary localized osteoarthrosis, pelvic region and thigh 12/05/2005- Tear film insufficiency, unspecified 06/24/2013- Vitamin D deficiencyPAST SURGICAL HISTORYProcedure Laterality Date- 2D ECHO (EXEP) 03/28/2018 EF=55%, mild Hernandez dysf, normal valves.- COLONOSCOP W/ OR W/O [facility] SPEC Colonoscopy- CYSTO.PANENDO Cystoscopy- KNEE SCOPE,DIAGNOSTIC 06/2010 Arthroscopy, knee- PAST SURGICAL HISTORY OF R THR x 3- PAST SURGICAL HISTORY OF Bilat TKR- PAST SURGICAL HISTORY OF L Hip pinning (later removed)- PAST SURGICAL HISTORY OF Heart Cath- PAST SURGICAL HISTORY OF Dilation of left ureter- PAST SURGICAL HISTORY OF 05/13 L knee revision- PAST SURGICAL HISTORY OF 2014 R THR - Arnot- PAST SURGICAL HISTORY OF Right 07/2014 total hip replacementFAMILY HISTORYProblem Relation Age of Onset- Cancer Father- Coronary Artery Disease Father Early 70's CABG x5- Coronary Artery Disease Brother aged 52, [place]- Diabetes Brother Type II- No Family History Other Colon Cancer/PolypsSocial HistorySocial History Main Topics- Smoking status: Former Smoker Packs/day: 0.15 Years: 5.00 Types: Cigarettes Quit date: 06/29/2005- Smokeless tobacco: Never Used Comment: Quit age 45- Alcohol use Yes Comment: Hx of this being an issue (was taking 3-4 glasses/hs, to [facility] and now 1-2 glasses wine qhs)- Drug use: No- Sexual activity: Yes Partners: FemaleALLERGIESAllergen Reactions- Cymbalta [Duloxetin* Other: See Comments Made her feel emotionless.Review of SystemsConstitutional: Negative.HENT: Negative.Eyes: Negative.Respiratory: Negative.Cardiovascular: Negative.Gastrointestinal: Positive for abdominal pain and constipation. Negativefor diarrhea and vomiting.Genitourinary: Negative.Musculoskeletal: Negative.Skin: Negative.Neurological: Negative.Psychiatric/Behavioral: Negative.Physical ExamBP 138/77 Pulse 72 Temp (Src) 89.3 (Oral) Resp 16 Ht 5' 6 (1.68m) Wt 130 lb (59.0kg) SpO2 97% BMI 20.99 kg/(m2).Physical ExamConstitutional: She is oriented to person, place, and time. She appearswell-developed and well-nourished. No distress.HENT:Head: Normocephalic and atraumatic.Nose: Nose normal.Eyes: Pupils are equal, round, and reactive to light. EOM are normal.Right eye exhibits no discharge. Left eye exhibits no discharge.Neck: Normal range of motion. Neck supple. No tracheal deviation present.Cardiovascular: Normal rate, regular rhythm, normal heart sounds andintact distal pulses.Pulmonary/Chest: Effort normal and breath sounds normal. No respiratorydistress.Abdominal: Soft. She exhibits no distension and no mass. There is noguarding.Musculoskeletal: Normal range of motion. She exhibits no edema, tendernessor deformity.Neurological: She is alert and oriented to person, place, and time. Nocranial nerve deficit or sensory deficit. Coordination normal.Skin: Skin is warm and dry. No pallor.Psychiatric: She has a normal mood and affect. Her behavior is normal.Judgment and thought content normal.Diagnostic TestingED Labs Ordered and Reviewed - No data to displayProceduresED Course / Clinical ImpressionClinical Impressions as of Apr 12 2137Other constipationMDM / Disposition / PlanLipase is normal comprehensive metabolic panel large unremarkable CBCwithin normal limits. CT scan of the abdomen and pelvis with IV contrastshows no acute pathology she has a nodule in the left kidney for therecommendation by CT scan or MRI was recommended I advised the patientthis she is aware of this and also again was advised to follow-up with herPCP there is no mention of unusual stool pertinent no other acute emergentabnormalities on the CAT scan report patient was discharged homereassurance advise a follow-up with PCP.SIGNATURE: Toni Stewart MD04/12/182136 ed note on ED NOTE HNO ID: [id number]: Davina Normal 04-12-2018 [facility] ([id number]) (Rn) KIRSTEN Steinerervice: (none)Author Type: Registered NurseType: ED NotesFiled: 04/12/2018 6:38 PMNote Text: Patient in stable condition upon discharge. resp even and unlabored. Nodistress noted. Patient denies any complaints at this time. Discharge andfollow up reviewed, plan of care is agreed upon. Patient thankful for careupon discharge. ED NOTE HNO ID: [id number] Normal 04-12-2018 [facility] ([id number]) Author: Davina Pichardo) DARYL Steiner Service: (none) Author Type: Registered Nurse Type: ED Notes Filed: 04/12/2018 5:45 PM Note Text: Patient denies any pain at this time. ED NOTE HNO ID: [id number]: Normal 04-02 [facility] ([id number]) Yessy TapiaRn) Iman Brunsonice: (none)Author Type: Registered NurseType: ED NotesFiled: 04/12/2018 4:03 PMNote Text:Patient presents with constipation for a week, has tried an enema with noresults. Had KUB done yesterday at [facility]. ct abd/pel w ivcon on 2018-04-12 CT ABD/PEL * * *Final Report* * *DATE OF EXAM: Apr04-12-2018 Jessica Barba IVCON 2017 5:36PM [facility] 0530 - CT ABD/PEL W [facility] IVCON / ([id number]) REASON: Abd pain, diverticulitis suspected * * * * Physician Interpretation * * * * EXAMINATION: CT ABDOMEN AND PELVIS WITH IV CONTRASTCLINICAL HISTORY: Abdominal pain and constipationTECHNIQUE: CT of the abdomen and pelvis was performed using standard technique, scanning from just above the dome of the diaphragm to the symphysis pubis.MQ: CTAP_3Contrast:IV: 100 ml of Omnipaque 300Oral: NoneCT Radiation dose: Integrated Dose-length product (DLP) for this visit = 255 mGy*cm.CT Dose Reduction Employed: mAs-kVp adjusted based on patient size-ageCOMPARISON: None.RESULT:Liver: No mass. Normal hepatic morphology.Biliary: No bile duct dilation. Gallbladder is unremarkable.Spleen: No mass. No splenomegaly.Pancreas: No mass or duct dilation.Adrenals: No mass.Kidneys: The kidneys enhance symmetrically. There is no hydronephrosis. There is a hypodense nodule in the anterior left kidney which measures 2.2 x 1.3 cm on image 40, series 2.GI tract: No dilation or wall thickening.Lymph nodes: No abdominal or pelvic lymphadenopathy.Mesentery/Peritoneum: No ascites or mass.Retroperitoneum: No mass.Vasculature: The celiac axis and SMA are patent. The portal vein and branches, splenic vein, SMV, and hepatic veins are patent. No abdominal aortic aneurysm.Pelvis: No mass, ascites or fluid collection. The bladder is unremarkable.Bones/Soft Tissues: There is degenerative disease of the lumbar spine. There is an age-indeterminate compression fracture of T12.Lower thorax: No pleural effusion or consolidation.IMPRESSION:1. No acute pathology2. Age-indeterminate compression fracture of T123. Hypodense nodule in the anterior left kidney which is too dense to represent a simple cyst. Further evaluation by CT scan or MRI of the kidneys without and with IV contrast is recommended for further evaluation. Secure Software Assessor: LEE Transcribe Date/Time: Apr 12 2018 6:03PDictated by : CONRADO BRITT MDThis examination was interpreted and the report reviewed and electronically signed by: CONRADO BRITT MD on Apr 12 2018 6:12PM [id number] comp metabolic panel on 2018-04-12 Albumin mass conc 4.3 3.9-4.9 g/dL Normal 04-12-2018 [facility] ([id number]) Comment: Performed By: #### EBENEZER C MP, LIPA ####[facility] [address] [place] [address] 0 ALP enzyme act/vol 58 34-123 U/L Normal 04-12-2018 [facility] ([id number]) Comment: Performed By: #### EBENEZER C MP, LIPA ####[facility] [address] [place] [address] 0 ALT enzyme act/vol 8 7-38 U/L Normal 04-12-2018 [facility] ([id number]) Comment: Performed By: #### CBCLEANNA C MP, LIPA ####[place] [address] 0 Anion gap 3 molar conc 13 9-18 mmol/L Normal [address] [place] [address] ([id number]) Comment: Performed By: #### EBENEZER C MP, LIPA ####[place] [address] 0 AST enzyme act/vol 17 13-35 U/L Normal 04-12-2018 [facility] ([id number]) Comment: Performed By: #### CBCLEANNA C MP, LIPA ####[facility] [address] [place] [address] 0 Bilirubin mass conc 0.2 0.2-1.3 mg/dL Normal 04-12-2018 [facility] (28635) Comment: Performed By: #### CBCDIF C MP, LIPA ####[place] [address] 0 Calcium mass conc 9.0 8.5-10.2 mg/dL Normal 04-12-2018 [facility] (40517) Comment: Performed By: #### CBCLEANNA C MP, LIPA ####[facility] [address] [place] [address] 0 Chloride molar conc 98 97-105 mmol/L Normal 04-12-2018 [facility] (73723) Comment: Performed By: #### Najma SOL MP, LIPA ####[facility] [address] [place] [address] 0 CO2 molar conc 25 22-30 mmol/L Normal 04-12-2018 [facility] (57727) Comment: Performed By: #### CBCRORYFNajma MP, LIPA ####[facility] [address] [place] [address] 0 Creatinine mass conc 0.75 0.58-0.96 mg/dL Normal 8 [facility] (11049) Comment: Performed By: #### Najma SOL MP, LIPA ####[facility] [address] [place] [address] 0 eGFR- Amer. >60 Normal 04-12-2018 [facility] (19625) Comment: Performed By: #### Najma SOL MP, LIPA ####[facility] [address] [place] [address] 0 GFR/1.73 sq M predicted >60 mL/min/{1.73_m2} Normal 04-12-2018 [facility] among non-blacks MDRD (05049) vol rate/area (S/P/Bld) Comment: Result Comment: eGFR (Estima christian GFR) Units of measure: mL/min/1.73 meters squaredeGFR is derived from the reexpressed MDRD Study equation using the following parameters: serum creatinine, age, gender and race. The creatinine assay has been calibrated to be traceable to IDMS.An eGFR <60 mL/min/1.73m2 for >3 months is consistent with chronic kidney disease. Refer to KDOQI guidelines for clinical inte rpretation.In patients with unstable renal function, e.g. those with ac [place] kidney injury, the eGFR may not accurately reflect actual GFR. Performed By: #### CBCDIF C MP, LIPA ####[facility] [address] [place] [address] 0 Glucose mass conc 87 74-99 mg/dL Normal 04-12-2018 [facility] (41906) Comment: Result Comment: The [place] Diabetes Association (ADA) provides guidance for cutoff values for fastin g glucose and random glucose. The ADA defines fasting as no caloric intake for at least 8 hours. Fasting plasma glucose results between 100 to 125 m g/dL indicate increased risk for diabetes (prediabetes).Fasting plasma glucose results greater than or equal to 126 mg/dL meet the criteria for diagnosis of diabetes. In the absence of unequivocal hyperglycemia, r esults should be confirmed by repeat testing. In a patient with classic sympt oms of hyperglycemia or hyperglycemic crisis, random plasma glucose result s greater than or equal to 200 mg/dL meet the criteria for diagnosis of di abetes.Reference: Standards of Medical Care in Diabetes 2016, [place] Diab etes Association. Diabetes Care. 2016.39(Suppl 1). Performed By: #### CBCDIF C MP, LIPA ####[facility] [address] [place] [address] 0 Potassium molar conc 3.6 3.7-5.1 mmol/L Low [facility] (48887) Comment: Performed By: #### CBCDIF C MP, LIPA ####[facility] [address] [place] [address] 0 Protein mass conc 6.7 6.3-8.0 g/dL Normal 04-12-2018 [facility] (96974) Comment: Performed By: #### CBCDIF, C MP, LIPA ####[facility] [address] [place] [address] 0 Sodium molar conc 136 136-144 mmol/L Normal 04-12-2018 [facility] (07577) Comment: Performed By: #### CBCDIF, C MP, LIPA ####[facility] [address] [place] [address] 0 Urea nitrogen mass conc 15 7-21 mg/dL Normal 2017 [facility] (68991) Comment: Performed By: #### CBCDIF, C MP, LIPA ####[facility] [address] [place] [address] 0 cbc and differential on 2018-04-12 Abs Baso 0.07 <0.11 k/uL Normal 04-12-2018 [facility] (60198) Comment: Performed By: #### CBCDIF, C MP, LIPA ####[place] [address] 0 Abs [place] 0.96 <0.87 k/uL High 04-12-2018 [facility] (00263) Comment: Performed By: #### CBCDIF, C MP, LIPA ####[place] [address] 0 Abs Neut 4.65 1.45-7.50 k/uL Normal 04-12-2018 [facility] (18536) Comment: Performed By: #### CBCDIF, C MP, LIPA ####[place] [address] 0 Basophils/100 WBC Auto (Bld) 0.9 % Normal 1 [facility] (36750) Comment: Performed By: #### CBCDIF, C MP, LIPA ####[place] [address] 0 Eosinophils Auto #/vol (Bld) 0.52 <0.46 k/uL High 1 [facility] (71908) Comment: Performed By: #### CBCDIF, C MP, LIPA ####[place] [address] 0 Eosinophils/100 WBC Auto (Bld) 6.8 % Normal 04-12-2018 [facility] (55301) Comment: Performed By: #### CBCDIF, C MP, LIPA ####[place] [address] 0 Erythrocyte distribution 12.6 11.5-15.0 % Normal 04-12 [facility] (51318) width Auto Ratio (RBC) Comment: Performed By: #### CBCDIF, C MP, LIPA ####[place] [address] 0 Hematocrit Auto Volume 38.1 36.0-46.0 % Normal 018 [facility] (74812) Fraction (Bld) Comment: Performed By: #### CBCDIF, C MP, LIPA ####[facility] [address] [place] [address] 0 Hemoglobin mass conc 12.8 11.5-15.5 g/dL Normal 8 [facility]) (44696) Comment: Performed By: #### CBCDIF, C MP, LIPA ####[facility] [address] [place] [address] 0 Lymphocytes Auto #/vol 1.40 1.00-4.00 k/uL Normal 018 [facility] ([facility]) (29036) Comment: Performed By: #### CBCDIF, C MP, LIPA ####[place] [address] 0 Lymphocytes/100 WBC Auto (Bld) 18.4 % Normal 04-12-2018 [facility] (62386) Comment: Performed By: #### CBCDIF, C MP, LIPA ####[place] [address] 0 MCH Auto Entitic mass 31.9 26.0-34.0 pG Normal 04-12-20 18 [facility] (34701) (RBC) Comment: Performed By: #### CBCDIF, C MP, LIPA ####[place] [address] 0 MCHC Auto mass conc 33.6 30.5-36.0 g/dL Normal 04-12-2018 [facility] (69988) (RBC) Comment: Performed By: #### CBCDIF, C MP, LIPA ####[place] [address] 0 MCV Auto Entitic volume 95.0 80.0-100.0 fL Normal 04-12 [facility] (83094) (RBC) Comment: Performed By: #### CBCDIF, C MP, LIPA ####[place] [address] 0 Monocytes/100 WBC Auto (Bld) 12.6 % Normal 1 [facility] (17033) Comment: Performed By: #### CBCDIF, C MP, LIPA ####[facility] [address] [place] [address] 0 Neutrophils/100 WBC Auto (Bld) 61.3 % Normal 04-12-2018 [facility] (10882) Comment: Performed By: #### CBCDIF, C MP, LIPA ####[facility] [address] [place] [address] 0 Platelet mean volume Auto 8.7 9.0-12.7 fL Low 04-02 [facility] (65521) Entitic volume (Bld) Comment: Performed By: #### CBCDIF, C MP, LIPA ####[place] [address] 0 Platelets Auto #/vol (Bld) 294 150-400 k/uL Normal [facility] (73116) Comment: Performed By: #### CBCDIF, C MP, LIPA ####[place] [address] 0 RBC Auto #/vol (Bld) 4.01 3.90-5.20 m/uL Normal 8 [facility] (93934) Comment: Performed By: #### CBCDIF, C MP, LIPA ####[place] [address] 0 WBC Auto #/vol (Bld) 7.60 3.70-11.00 k/uL Normal 04-12-20 18 [facility] (52284) Comment: Performed By: #### CBCDIF, C MP, LIPA ####[place] [address] 0 xr shldr >/=3v ap/muriel ap/othr lt on 2017-11-30 XR SHLDR >/=3V * * *Final Report* * *DATE OF EXAM: Normal 11-30-2017 [place] AP/MURIEL AP/OTHR Nov 30 2017 2:15PM MDX 5252 - XR Hospital LT SHLDR >/=3V AP/MURIEL AP/OTHR LT / ([id number]) REASON: Fracture, shoulder * * * * Physician Interpretation * * * * HISTORY: Fracture, shoulderPatient/Technologist Provided History: PT STATES FALL APPROXIMATELY 1 MONTH AGO.TECHNIQUE: XR SHLDR 3V AP/MURIEL AP/OTHR LTCOMPARISON: XR 11/24/2017RESULT:Glenohumeral joint is maintained. Acromiohumeral interval is maintained. Acromioclavicular joint is maintained. No acute fracture or dislocation.Mildly displaced left second rib fracture, unchanged.IMPRESSION:No acute abnormality.Mildly displaced left second rib fracture, unchanged.Secure Software Assessor: [facility] REHABIL[facility]ATION HOSPITALZite Transcribe Date/Time: Nov 30 2017 2:22PDictated by : Rox CAPPS examination was interpreted and the report reviewed and electronically signed by: JONH DOS SANTOS MD on Nov 30 2017 2:28PM [id number] xr ribs 4v lawrence+upper/lower chest on 2017-11-30 XR RIBS 4V * * *Final Report* * *DATE OF Normal 11-30-2017 [place] LAWRENCE+UPPER/LOWER EXAM: Nov 30 2017 2:10PM [address] CHEST - XR RIBS 4V LAWRENCE+UPPER/LOWER ([id number]) CHEST / REASON: Chest wall pain * * * * Physician Interpretation * * * * HISTORY: Chest wall painPatient/Technologist Provided History: PT STATES FALL APPROXIMATELY 1 MONTH AGO.TECHNIQUE: XR RIBS 4V LAWRENCE+UPPER/LOWER CHESTCOMPARISON: XR 07/08/2015, XR 11/24/2017RESULT:Lines, Tubes, and Devices: N/ALungs and Pleura: Overall unchanged since the prior study. Lungs are clear of consolidation. No pulmonary edema. No pleural effusion. No pneumothorax.Cardiomediastinal silhouette: Stable contour. Aortic calcifications.Bones: Mildly displaced left second rib fracture, unchanged since 11/24/2017 but new since 07/08/2015. Probable remote healed fracture of right lateral ninth rib. Scoliosis and degenerative changes of the spine.IMPRESSION:Mildly displaced fracture of left second rib, unchanged since 11/24/2017.Probable remote healed fracture of right lateral ninth rib.No pneumothorax.Secure Software Assessor: [facility] Transcribe Date/Time: Nov 30 2017 2:28PDictated by : JONH RASSI, MDThis examination was interpreted and the report reviewed and electronically signed by: JONH DOS SANTOS MD on Nov 30 2017 2:34PM [id number] troponin t on 11-30 Troponin T.cardiac <0.010 0.000-0.029 ug/L Normal [facility] mass conc (40226) Comment: Performed By: #### WALKER ####M [facility] Wtclqjtrew0478 [address] magnesium on 11-30 Magnesium mass conc 2.1 1.7-2.3 mg/dL Normal 11-30-2017 [facility] (07247) Comment: Performed By: #### CBCDIF, C MP, MG1 ####[facility] [address] [place] [phone] ed prov note on 02-04-31 Protein mass HNO ID: [id number]: Gen (Jaxon) Chapito mckenzie 11-30-2017 [facility] SulovariService: (none)Author Type: Hospital Physician AssistantType: ED Provider ([id number]) NotesFiled: 11/30/2017 3:40 PMNote Text:ED Provider NotePatient Name: Argenis Jensen [facility] [id number] DATE: 11/30/17HistoryPatient presents with:Musculoskeletal Dkthgjj31 year old female with a past medical history of depression,osteoarthritis, presents to the emergency department today with a chiefcomplaint of worsening left sided rib pain. Patient stated that she fellabout a month ago. She went to [facility] when necessary had multiple CTscans that came back unremarkable was discharged home. She went to herfamily doctor repeated the x-ray of the shoulder because she wascomplaining of left-sided shoulder pain and saw that she had a second ribfracture . Patient was given Percocet and discharged home. Patientstates over the last week her pain is worsened. She filled that herPercocet today and took one dose of it this morning. She has numbness inher left arm pit. She denies any chest pain, or sob, denies any cough.Denies any leg swellingPAST MEDICAL HISTORYDiagnosis Date- Abnormal stress test Cardiac cath was negative- Brachial neuritis or radiculitis NOS 05/13/2010- Bucket handle tear of lateral meniscus(717.41) 12/05/2005- Cervical arthritis (HCC)- Cervical spondylosis without myelopathy 04/13/2007- Cervicalgia 03/22/2007- Compression fracture- Compression fracture of lumbar spine, non-traumatic (HCC) 01/31/2014- Congenital spondylolisthesis 04/13/2007- Depressive disorder, not elsewhere classified- Displacement of lumbar intervertebral disc without myelopathy 01/31/2014- Ex-smoker- GERD (gastroesophageal reflux disease)- Headache 07/17/2012- History of dislocation of hip 07/09/2014 right- Lumbago 07/28/2009- Lumbar spinal stenosis- Lumbar spondylosis 07/28/2009- Microscopic hematuria 08/20/2010- Muscle weakness (generalized) 09/16/2008- Occipital neuralgia of right side 02/24/2016- Osteoporosis- Osteoporosis, unspecified 07/08/2014- Other disorder of coccyx 08/10/2006- Pain in thoracic spine 08/10/2006- PELVIC FRACTURE NOS-CLOS: left pubic rami 06/21/2006- Preglaucoma, unspecified 07/17/2012- Primary localized osteoarthrosis, hand 12/05/2005- Primary localized osteoarthrosis, lower leg 12/05/2005- Secondary localized osteoarthrosis, pelvic region and thigh 12/05/2005- Tear film insufficiency, unspecified 06/24/2013- Unspecified disorder of muscle, ligament, and fascia 09/16/2008- Unspecified vitamin D deficiency 06/21/2006- Vitamin D deficiencyPAST SURGICAL HISTORYProcedure Laterality Date- COLONOSCOP W/ OR W/O [facility] SPEC Colonoscopy- CYSTO.PANENDO Cystoscopy- KNEE SCOPE,DIAGNOSTIC 06/2010 Arthroscopy, knee- PAST SURGICAL HISTORY OF R THR x 3- PAST SURGICAL HISTORY OF Bilat TKR- PAST SURGICAL HISTORY OF L Hip pinning (later removed)- PAST SURGICAL HISTORY OF Heart Cath- PAST SURGICAL HISTORY OF Dilation of left ureter- PAST SURGICAL HISTORY OF 05/13 L knee revision- PAST SURGICAL HISTORY OF 2014 R THR - Arnot- PAST SURGICAL HISTORY OF Right 07/2014 total hip replacementFAMILY HISTORYProblem Relation Age of Onset- Cancer Father- Coronary Artery Disease Father Early 70's CABG x5- Coronary Artery Disease Brother aged 52, [place]- Diabetes Brother Type II- No Family History Other Colon Cancer/PolypsSocial HistorySocial History Main Topics- Smoking status: Former Smoker Packs/day: 0.15 Years: 5.00 Types: Cigarettes Quit date: 06/29/2005- Smokeless tobacco: Never Used Comment: Quit age 45- Alcohol use Yes Comment: Hx of this being an issue (was taking 3-4 glasses/hs, to [facility] and now 1-2 glasses wine qhs)- Drug use: No- Sexual activity: Yes Partners: FemaleALLERGIESNo Known AllergiesReview of SystemsConstitutional: Negative for chills and fever.HENT: Negative for congestion and sore throat.Eyes: Negative for photophobia and visual disturbance.Respiratory: Negative for chest tightness, shortness of breath andwheezing.Cardiovascular: Negative for chest pain and palpitations.Gastrointestinal: Negative for abdominal pain and blood in stool.Genitourinary: Negative for dysuria and hematuria.Musculoskeletal: Negative for neck pain and neck stiffness.Skin: Negative for color change.Neurological: Positive for numbness. Negative for dizziness and headaches.Psychiatric/Behavioral: Negative for agitation and confusion.Physical ExamBP 122/51 Pulse 94 Temp (Src) 97.4 (Tympanic) Resp 19 Ht 5' 6(1.68m) Wt 125 lb (56.7kg) SpO2 99% BMI 20.19 kg/(m2).Physical ExamConstitutional: She is oriented to person, place, and time. She appearswell-developed and well-nourished.HENT:Head: Normocephalic and atraumatic.Eyes: Conjunctivae and EOM are normal.Neck: Normal range of motion. Neck supple.Cardiovascular: Normal rate and regular rhythm.Pulmonary/Chest: Effort normal and breath sounds normal. No respiratorydistress. She has no wheezes. She exhibits tenderness. She exhibits nolaceration, no crepitus, no edema, no swelling and no retraction.Abdominal: Soft. Bowel sounds are normal.Musculoskeletal: Normal range of motion. Arms:FROM with left and right shoulder. Strength 5/5 with left and rightshoulder ,elbows, hands. Radial and ulnar pulse intact. Cap refill 2 plus.No deformity of shoulder, no deformity of ribsNeurological: She is alert and oriented to person, place, and time.Skin: Skin is warm and dry.Psychiatric: She has a normal mood and affect. Her behavior is normal.Diagnostic TestingED Labs Ordered and Reviewed - No data to displayProceduresMedical Decision MakingMDMThe medical record is reviewed.Triage note is reviewed and incorporated.The nursing note is reviewed and consistent with patient's history andphysical exam findings. The vital signs were reviewed the the vital signsare : BP 122/51 Pulse (!) 94 Temp 36.3 ?C (97.4 ?F) (Tympanic) Resp 19 Ht 167.6 cm (5' 6) Wt 56.7 kg (125 lb) SpO2 99% BMI20.18 kg/m?ECG directly visualized and independently interpreted by me and attendingphysician showed : nsr with rate of 74, no STEMiCXR directly visualized and independently interpreted by me as well asRadiologist showed: left 2nd rib fx, unchangedMDM:This is a well-appearing female with a pmh of depression, OA who presentsto the ED with a chief complaint of left armpit numbness and left rib painwho is, afebrile , hemodynamically stable, in no acute distress patientwhose symptoms are controlled in the ED with toradol, . Based onpatient's pmh, chief complaint and physical exam findings, differentialdiagnoses include rib fx vs ACS, vs MSK, vs pneumonia vs pleurisy vsRotator cuff tear.Labs and imaging studies reveal cbc within normal limits trop withinnormal limits cmp within normal limits mag within normal limitsBased on patient's physical exam findings, clinical picture, lab resultsand imaging studies that were performed here today in the ED, at thistime, the following differential diagnoses such as mi is less likely dueto unremarkable trop and ecg. The following differential diagnosis such aspneumothorax is less likely due to unremarkable cxr.The followingdifferential diagnosis such as pneumonia is less likely due tounremarkable cxr The patient has remained hemodynamically stablethroughout the entire ED visit and is without objective evidence for acuteprocess requiring urgent intervention or hospitalization. The patientand/or family had all the tests and diagnosis explained to them and weregiven both verbal and written discharge instructions. I answered thepatient's question as well as family to the best of my ability. Thepatient is stable for discharge, and pt is instructed to follow up withpcp and educated to return to ed if sx worsen or any new symptoms. Ptagreeable with plan.At this time, based on the patient's history, physical exam findings, labresults and clinical picture , the most likely diagnosis is left rib fxPt educated on the most common causes of Left rib fxPt instructed to follow up with PCP in 1-2 daysDischarge care instructions, medications, follow up instructions, andreasons to return to the ED immediately, such as worsening of symptoms orany new symptoms, were provided verbally and in writing to patient(patient guardian / field sales representative), who verbalized understanding.This note was partially generated using Outfittery voice recognition system,and there may be some incorrect words, spellings, and punctuation thatwere not noted in checking the note before savingED Course / Clinical ImpressionClinical Impressions as of Nov 30 1537Rib pain on left side(R07.81) Rib pain on left side (primary encounter diagnosis)Comment: acutePlan: dc see pcp rest ,home pain meds, return to ed if sx worsenPlanThe patient was DISCHARGED: Counseled patient and family regarding labresults AND radiology results AND suspected diagnosis AND need for follow-up.Discharged home with verbal and written instructions. They wereinstructed to return as needed for persistent or worsening symptoms or anynew concerns.Condition at time of disposition: stableSIGNATURE: Mathieu Jenkins (Pa)11/30/17 1540 ed note on ED NOTE HNO ID: [id number] Normal 11-30-2017 [facility] ([id number]) Author: Anabel (Rn) DARYL Fregoso Service: Nursing Author Type: Registered Nurse Type: ED Notes Filed: 11/30/2017 3:47 PM Note Text: Reviewed DC instructions with patient. No questions. Patient ambulated out on own with spouse. ED NOTE HNO ID: [id number] Normal 11-30-2017 [facility] (54517) Author: Pat TapiaMedic) Ioana Keating Service: Emergency Medicine Author Type: Poultice Machine Operator and Partner Type: ED Notes Filed: 11/30/2017 2:20 PM Note Text: Labs were drawn and sent. ED NOTE HNO ID: [id number] Normal 11-30-2017 [facility] (91835) Author: Anabel (Rn) DARYL Fregoso Service: Nursing Author Type: Registered Nurse Type: ED Notes Filed: 11/30/2017 1:55 PM Note Text: Patient to Xray with tech. ED NOTE HNO ID: [id number]: Normal 11-02 [facility] (79585) Dana (Rn) KIRSTEN Snowervice: (none)Author Type: Registered NurseType: ED NotesFiled: 11/30/2017 1:28 PMNote Text:Pt presents with c/o left sided rib pain s/p fall 1 month ago. Pt statesdx with rib fx 1 week ago with worsening pain. comp metabolic panel on 2017-11-30 Albumin mass conc 4.6 3.9-4.9 g/dL Normal 11-30-2017 [facility] (96113) Comment: Performed By: #### CBCDIF, C MP, MG1 ####[facility] [address] [place] [address] 0 ALP enzyme act/vol 63 32-117 U/L Normal 11-30-2017 [facility] (23104) Comment: Performed By: #### CBCDIF, C MP, MG1 ####[facility] [address] [place] [address] 0 ALT enzyme act/vol 10 7-38 U/L Normal 11-30-2017 [facility] (93310) Comment: Performed By: #### CBCDIF, C MP, MG1 ####[facility] [address] [place] [address] 0 Anion gap 3 molar conc 11 9-18 mmol/L Normal 018 [facility] (78382) Comment: Performed By: #### CBCDIF, C MP, MG1 ####[facility] [address] [place] [address] 0 AST enzyme act/vol 15 13-35 U/L Normal 11-30-2017 [facility] (72766) Comment: Performed By: #### CBCDIF, C MP, MG1 ####[facility] [address] [place] [address] 0 Bilirubin mass conc 0.3 0.2-1.3 mg/dL Normal 11-30-2017 [facility] (76208) Comment: Performed By: #### Najma SOL MP, MG1 ####[facility] [address] [place] [address] 0 Calcium mass conc 9.1 8.5-10.2 mg/dL Normal 11-30-2017 [facility] (26968) Comment: Performed By: #### Najma SOL MP, MG1 ####[facility] [address] [place] [address] 0 Chloride molar conc 96 97-105 mmol/L Low 11-30-2017 [facility] (63984) Comment: Performed By: #### Najma SOL MP, MG1 ####[facility] [address] [place] [address] 0 CO2 molar conc 27 22-30 mmol/L Normal 11-30-2017 [facility] (51460) Comment: Performed By: #### Najma SOL MP, MG1 ####[facility] [address] [place] [address] 0 Creatinine mass conc 0.78 0.58-0.96 mg/dL Normal 8 [facility] (32870) Comment: Performed By: #### Najma SOL MP, MG1 ####[facility] [address] [place] [address] 0 eGFR- Amer. >60 Normal 11-30-2017 [facility] (27827) Comment: Performed By: #### Najma SOL MP, MG1 ####[facility] [address] [place] [address] 0 GFR/1.73 sq M predicted >60 mL/min/{1.73_m2} Normal 11-30-2017 [facility] among non-blacks MDRD (89604) vol rate/area (S/P/Bld) Comment: Result Comment: eGFR (Estima christian GFR) Units of measure: mL/min/1.73 meters squaredeGFR is derived from the reexpressed MDRD Study equation using the following parameters: serum creatinine, age, gender and race. The creatinine assay has been calibrated to be traceable to IDMS.An eGFR <60 mL/min/1.73m2 for >3 months is consistent with chronic kidney disease. Refer to KDOQI guidelines for clinical inte rpretation.In patients with unstable renal function, e.g. those with ac [place] kidney injury, the eGFR may not accurately reflect actual GFR. Performed By: #### Najma SOL MP, MG1 ####[facility] [address] [place] [address] 0 Glucose mass conc 106 74-99 mg/dL High 11-30-2017 [facility] (47026) Comment: Result Comment: The [place] Diabetes Association (ADA) provides guidance for cutoff values for fastin g glucose and random glucose. The ADA defines fasting as no caloric intake for at least 8 hours. Fasting plasma glucose results between 100 to 125 m g/dL indicate increased risk for diabetes (prediabetes).Fasting plasma glucose results greater than or equal to 126 mg/dL meet the criteria for diagnosis of diabetes. In the absence of unequivocal hyperglycemia, r esults should be confirmed by repeat testing. In a patient with classic sympt oms of hyperglycemia or hyperglycemic crisis, random plasma glucose result s greater than or equal to 200 mg/dL meet the criteria for diagnosis of di abetes.Reference: Standards of Medical Care in Diabetes 2016, [place] Diab etes Association. Diabetes Care. 2016.39(Suppl 1). Performed By: #### Najma SOL MP, MG1 ####[facility] [address] [place] [address] 0 Potassium molar conc 4.0 3.7-5.1 mmol/L Normal [address] [place] [address] (33843) Comment: Performed By: #### Najma SOL MP, MG1 ####[facility] [address] [place] [address] 0 Protein mass conc 7.0 6.3-8.0 g/dL Normal 11-30-2017 [facility] (36976) Comment: Performed By: #### Najma SOL MP, MG1 ####[facility] [address] [place] [address] 0 Sodium molar conc 134 136-144 mmol/L Low 11-30-2017 [facility] (74083) Comment: Performed By: #### EBENEZER C MP, MG1 ####[facility] [address] [place] [address] 0 Urea nitrogen mass conc 19 7-21 mg/dL Normal 2017 [facility] (50321) Comment: Performed By: #### CBCDIF C MP, MG1 ####[facility] [address] [place] [address] 0 ck, total and ckmb on 2017-11-30 CK enzyme act/vol 32 42-196 U/L Low 11-30-2017 [facility] (94903) Comment: Performed By: #### CKCKMB ## ##[place] [address] CK MB % CK MB % not reported with 0.0-4.0 Normal 11-02 [facility] (91584) CK <100 U/L. Comment: Performed By: #### CKCKMB ## ##[place] [address] MB 2.0 <4.3 ng/mL Normal 11-30-2017 [facility] (68234) Comment: Performed By: #### CKCKMB ## ##[place] [address] cbc and differential on 2017-11-30 Abs Baso 0.04 <0.11 k/uL Normal 11-30-2017 [facility] (34972) Comment: Performed By: #### CBCDIF C MP, MG1 ####[place] [address] 0 Abs [place] 0.94 <0.87 k/uL High [facility]-30-[facility] (36858[facility] Comment: Performed By: #### CBCDIF C MP, MG1 ####[place] [address] 0 Abs Neut 4.68 1.45-7.50 k/uL Normal [facility]-30-2017 [facility] (18828[facility] Comment: Performed By: #### CBCDIF C MP, MG1 ####[place] [address] 0 Basophils/100 WBC Auto (Bld) 0.5 % Normal 0 11-30-2017 [facility] (24777) Comment: Performed By: #### CBCDIF, C MP, MG1 ####[place] [address] 0 Eosinophils Auto #/vol (Bld) 0.46 <0.46 k/uL High 0 11-30-2017 [facility] (85971) Comment: Performed By: #### CBCDIF, C MP, MG1 ####[place] [address] 0 Eosinophils/100 WBC Auto (Bld) 5.9 % Normal 11-30-2017 [facility] (56822) Comment: Performed By: #### CBCDIF, C MP, MG1 ####[place] [address] 0 Erythrocyte distribution 13.7 11.5-15.0 % Normal 11-30 [facility] (43256) width Auto Ratio (RBC) Comment: Performed By: #### CBCDIF, C MP, MG1 ####[place] [address] 0 Hematocrit Auto Volume 37.7 36.0-46.0 % Normal [facility] (96418) Fraction (Bld) Comment: Performed By: #### CBCDIF, C MP, MG1 ####[place] [address] 0 Hemoglobin mass conc 12.4 11.5-15.5 g/dL Normal 8 [facility] ([facility]) (44126) Comment: Performed By: #### CBCDIF, C MP, MG1 ####[place] [address] 0 Lymphocytes Auto #/vol 1.64 1.00-4.00 k/uL Normal [address] [place] [address] ([facility]) (99231) Comment: Performed By: #### CBCDIF, C MP, MG1 ####[place] [address] 0 Lymphocytes/100 WBC Auto (Bld) 21.1 % Normal 11-30-2017 [facility] (83600) Comment: Performed By: #### CBCDIF, C MP, MG1 ####[facility] [address] [place] [address] 0 MCH Auto Entitic mass 32.2 26.0-34.0 pG Normal 12-01-19 18 [facility] (16581) (RBC) Comment: Performed By: #### CBCDIF, C MP, MG1 ####[facility] [address] [place] [address] 0 MCHC Auto mass conc 32.9 30.5-36.0 g/dL Normal 11-30-2017 [facility] (65931) (RBC) Comment: Performed By: #### CBCDIF, C MP, MG1 ####[place] [address] 0 MCV Auto Entitic volume 97.9 80.0-100.0 fL Normal 11-30 [facility] (90658) (RBC) Comment: Performed By: #### CBCDIF, C MP, MG1 ####[place] [address] 0 Monocytes/100 WBC Auto (Bld) 12.1 % Normal 0 11-30-2017 [facility] (51120) Comment: Performed By: #### CBCDIF, C MP, MG1 ####[place] [address] 0 Neutrophils/100 WBC Auto (Bld) 60.4 % Normal 11-30-2017 [facility] (12555) Comment: Performed By: #### CBCDIF, C MP, MG1 ####[place] [address] 0 Platelet mean volume Auto 9.1 9.0-12.7 fL Normal 11-02 [facility] (51249) Entitic volume (Bld) Comment: Performed By: #### CBCDIF, C MP, MG1 ####[facility] [address] [place] [address] 0 Platelets Auto #/vol (Bld) 290 150-400 k/uL Normal [facility] (54808) Comment: Performed By: #### CBCDIF, C MP, MG1 ####[facility] [address] [place] [address] 0 RBC Auto #/vol (Bld) 3.85 3.90-5.20 m/uL Low 8 [facility] (28752) Comment: Performed By: #### CBCDIF, C MP, MG1 ####[facility] [address] [place] [address] 0 WBC Auto #/vol (Bld) 7.76 3.70-11.00 k/uL Normal 12-01-19 18 [facility] (12867) Comment: Performed By: #### CBCDIF, C MP, MG1 ####[facility] [address] [place] [address] 0 Vital Signs Vital Sign Description Value / Unit Date Location The following section is limited to 5 en tries per type and includes entries from the following time range: 20200214 - 20200201 4. BP Diastolic 51 mm[Hg] 02-14-2020 [facility] (57249) BP Systolic 124 mm[Hg] 02-14-2020 [facility] (87747) Pulse (Heart Rate) 76 /min 02-14-2020 [facility] (87249) Encounters Date Type Reason Provider Location 03-26-2020 - Chart abstracting [facility] 03-26-2020 04-12-2018 - Emergency [facility] 04-12-2018 department patient SCHJULITAOWSKI (65665) visit 11-30-2017 - Emergency [facility] 11-30-2017 department patient ([id number]) visit 04-07-2020 - Patient encounter External Provider [facility] 04-07-2020 procedure 03-31-2020 - Patient encounter 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) Les Herman [facility] 03-31-2020 procedure arthroplasty Physical Therap y Comment: Status post total replacemen t of left hip (Primary Dx) 03-12-2020 - Patient encounter [facility] Provider [facility] 03-12-2020 procedure 02-21-2020 - Patient encounter History of total Ngozi (Pt) Wooste r [facility] 02-21-2020 procedure hip arthroplasty [facility] Comment: Status post total replacemen t of left hip (Primary Dx) 02-14-2020 - Patient encounter [facility]-occipital Emad N [facility] 02-14-2020 procedure neuralgia Comment: Occipital neuralgia of right side 04-07-2020 Results Only External Provider External-N [facility] 03-12-2020 Results Only [facility] Provider [facility] 03-24-2020 - Telephone encounter [facility] 03-24-2020 Comment: Patient Question 03-20-2020 - 03-20-2020 Telephone encounter [facility] Comment: Question 03-16-2020 - 03-16-2020 Telephone encounter [facility] [place] Comment: Patient Question 03-12-2020 - 03-12-2020 Telephone encounter [facility] Comment: Patient Update Procedures Procedure Name Date Provider Location EXTERNAL IMAGING 04-07-2020 External Provider [facility] (22615) MRI OUTSIDE CD DICOM IMPORT 03-12-2020 [facility] Provider [facility] (41704) Antibody screen 11-29-2019 [facility] (95153) Comment: Performed By: #### [id number] ## ##[facility] [address] [place], [place] [phone] Colonoscopy 06-03-2016 - 06-03-2016 [facility] (74536) Plan of Treatment Plan Description Date Location COLONOSCOPY COLONOSCOPY 06-03-2026 - [facility] 06-03-2026 (01659) DTAP,TDAP,TD (2 - Td) DTAP,TDAP,TD (2 - Td) 05-30-2026 - [facility] 05-30-2026 (14062) LIPID SCREEN LIPID SCREEN 04-11-2023 - [facility] 04-11-2023 (73259) DIABETES SCREEN DIABETES SCREEN 12-10-2022 - [facility] 12-10-2022 (23225) ADVANCE DIRECTIVE ADVANCE DIRECTIVE 01-20-2022 - [facility] DISCUSSION DISCUSSION 01-20-2022 (94208) INFLUENZA (#1) INFLUENZA (#1) 2020 - [facility] 03-03-2020 (71964) SHINGRIX VACCINE (1 of 2) SHINGRIX VACCINE (1 of 2) 1990 - [facility] 1990 (07644) ANNUAL PCP TEAM CHRONIC ANNUAL PCP TEAM CHRONIC 1958 - [facility] DISEASE VISIT DISEASE VISIT 1958 (69840) PT PLAN OF CARE PT PLAN OF CARE [facility] CERTIFICATION CERTIFICATION Procedures (99485) Routine Status post total replacement of left hip Ordered: 02/21/2020 Comment: Ordered: 02/21/2020 no information [facility] (21339) Immunizations Vaccine Notes Status Date Location Influenza Vaccine, influenza virus (completed) 04-12-2012 - [facility] Split-Non Spec vaccine, unspecified 04-12-2012 (4419 5) formulation Influenza Vaccine, influenza virus (completed) 06-03-2010 - [facility] Split-Non Spec vaccine, unspecified 06-03-2010 (4419 5) formulation Influenza Vaccine, influenza virus (completed) 03-03-2014 - [facility] Whole vaccine, whole virus 03-03-2014 (81995) Influenza Seasonal influenza, high dose (completed) 03-27-2020 - [facility] - High Dose - Age seasonal, 03-27-2020 (29556) 65+ preservative-free Influenza Seasonal influenza, high dose (completed) 04-17-2018 - [facility] - High Dose - Age seasonal, 04-17-2018 (23791) 65+ preservative-free Influenza Seasonal influenza, high dose (completed) 04-29-2017 - [facility] - High Dose - Age seasonal, 04-29-2017 (02377) 65+ preservative-free Influenza Seasonal influenza, high dose (completed) 05-03-2016 - [facility] - High Dose - Age seasonal, 05-03-2016 (38411) 65+ preservative-free Pneumococcal-13 Vac pneumococcal conjugate (completed) 03-16-2015 - [facility] Conjugate vaccine, 13 valent 03-16-2015 (19086) Pneumovax pneumococcal (completed) 08-16-2008 - [facility] polysaccharide vaccine, 08-16-2008 (441 95) 23 valent Tdap (Age 7+) tetanus toxoid, reduced (completed) 05-30-2016 - [facility] diphtheria toxoid, and 05-30-2016 (8089 5) acellular pertussis vaccine, adsorbed Payers Payer Name Policy Number Location [employer] BLUE CROSS [employer] BLUE SHIELD, MY[employer]EXUS [id number] [facility] ([id number]) MEDICARE The following information is from the original human readable contentNo Payer Records FoundNo Payer Records FoundNo Payer Records Found Social History Type Social History Date Location Description History of tobacco use Current smoker 06-29-2005 [facility] (79665) History SDOH Alcohol 5 11-29-2019 [facility] C linic Frequency 12-11-2019 (90560) History of tobacco use Cigarette Smoker 06-29-2005 [facility] (42629) Cigarettes smoked 02-14-2020 [facility] Clin ic current (pack per day) 02-14-2020 (67578) - Reported Tobacco use and Never used 02-14-2020 [facility] exposure 02-14-2020 (54265) Alcohol intake Current drinker of 02-14-2020 [facility] alcohol (finding) 02-14-2020 (15836) Tobacco smoking status Former smoker 02-14-2020 - [facility] NHIS 02-14-2020 (38389) History SDOH Alcohol 1 11-29-2019 - [facility] Std Drinks 12-11-2019 (97508) History SDOH Education 12 12-11-2019 - [facility] 12-11-2019 (05895) History SDOH Transport 2 12-11-2019 - [facility] Med 12-11-2019 (01573) Sex Assigned At Not on file [facility] (67822) Exposure to SARS-CoV-2 Not sure [facility] (event) (68036) The following information is from the original human readable contentNo Social History Records FoundNo Social History Records FoundNo Social History Records Found Medical Equipment Equipment Code (if Equipment Original Equipment Procedure Code ( if Dates provided) Text (if provided) Identifier (if provided) provided) Graft Bn Canc 30ml 855601_[facility] 5 Allgrft - [id number] Stem [place] V40 4 1989185_[facility] 12-10-2019 44mm Offset Femoral Cemented Hip - [id number] Watson Bn Smpx P Radpq [id number] 05-16-20 11 Fd Strl - [id number] Watson Bn Smpx P Radpq [id number] 05-16-20 11 Fd Strl - [id number] Cement Simplex P _[facility] 12-10-2019 Bone Radiopaque Full Dose Sterile - [id number] Cement Simplex P _[facility] 12-10-2019 Bone Radiopaque Full Dose Sterile - [id number] Inr-Vi-L-Kind 305129_[facility] 05-16-2011 Implant - [id number] Shell Actb 62mm Rev 855578_[facility] 07-09-19 15 Tritanum G - [id number] Bear 48mm Mbl Mdlr 855631_[facility] 5 2 Tib G - [id number] Ins Actb 54mm 28mm 855634_[facility] 5 Cup Edie 2 - [id number] Head Fem +12mm 855635_[facility] 07-09-201406/15 28mm Hip - [id number] Liner 36mm 0d E X3 [facility] 0 5.9mm Acetabular Hip - [id number] Graft Bn Canc 30ml 855598_[facility] 5 Allgrft - [id number] Restrictor Medium [facility] 12-10-2019 [place] Cement Disposable Supervisor Taping Distal - [id number] Shell Trident Ii [id number] 12-10-2019 52mm E Tritanium Acetabular 5 Screw Hole Cluster Sterile - [id number] Head V40 36mm 0mm [facility] 12-10-2019 Offset Taper Biolox Delta Femoral Hip - [id number] Screw Bn 6.5mm 50mm 855608_[facility] 07-09-19 15 Osteolk Ti - [id number] Screw Bn 6.5mm 35mm 855612_[facility] 07-09-19 15 [place] Ti - [id number] Screw Bn 6.5mm 24mm 855619_[facility] 07-09-19 15 [place] Ti - [id number] Screw Bn 6.5mm 20mm 855623_[facility] 07-09-19 15 [place] Ti - [id number] Screw Bn 6.5mm 24mm 855624_[facility] 07-09-19 15 [place] Ti - [id number] Screw Bn 6.5mm 14mm 855627_[facility] 07-09-19 15 Oste[place] Ti - [id number] Screw Trident Ii [facility] 12-10-2019 6.5mm 30mm Bone Low Profile Hexagonal Sterile - [id number] Screw Trident Ii [id number] 12-10-2019 6.5mm 25mm Bone Low Profile Hexagonal Sterile - [id number] Screw Trident Ii [id number] 12-10-2019 6.5mm 20mm Bone Low Profile Hexagonal Sterile - [id number] History of Present Illness Ngozi Gordillo (Pt) - 03/31/2020 2:57 PM EDTEpisode Visit Count: 7 Therapist That Will Oversee The Plan Of Care: Ngozi Gordillo Start of Care Date: 01/13/20 Onset Date: 12/10/19 Plan of Care Certification Date: 02/21/20 Next Certification Due Date: 04/03/20 Patient Identified by Name and Date of : Yes REHABILITATION AND SPORTS THERAPY PHYSICAL THERAPY TREATMENT NOTE ASSESSMENT: Argenis Ho demonstrated difficulty with pain in left hip and back. She had improvements with gait today with upright posture and near normal gait with use of st cane. Decreased intensity of exercises today. No increase in pain at end of treatment. The patient will continue to benefit from ongoing skilled physical therapy for review of exercises and plan of care update. PLAN FOR NEXT VISIT: POC update SUBJECTIVE: Patient Reason for Visit: Patient reports she had an MRI and it showed some pinched nerves. She reports the left hip has been hurting alot. She reports taking Aleve and it has not been helpful for pain. She reports taking a muscle relaor at night which helps with sleep. Pain: Pain Pain Level: 7 Pain Location: Hip - Left Description: Sharp(sharp foprm hip into inner groin) Frequency: Continuous Pain Level 2: 8 Pain Location 2: Low Back/Lumbar Spine - Left Description 2: Sharp Frequency 2: Continuous Post Treatment Pain Post Treatment Pain Level: No Change Post Treatment Symptoms: Supine left adductor stretch felt really good. OBJECTIVE MEASURES WITH LEVEL OF FUNCTION: Upright posture and near normal gait with use of st cane. TREATMENT: Therapeutic Exercise: 1: Supine left heel slides 2x12 2: supine hip adductor stretch 20 sec x5 3: supine hip abduction left on sliding board 2x10 4: SAQ 1# 2x10 5: seated yellow hip band abduction seated 2x10 6: green rep band seated hamstring curls 2x12 7: sit to stand from [id number] with UE assist(pain in left hip with this with no arms) 8: seated core dynamic stabilization yellow rep band perturbation from front 3x12 9: green step ups forward right and left 1x10 10: Green step left lateral step up 1x10 with assist 11: standing hamstring curls 1# B 1x10 12: standing hip abduction with 1# 1x10 B 13: Education on using st cane at all times to assist with gait and reduction of pain. Patient with upright posture and minimal gait deviation with use of cane today on level surface. Skilled Intervention: Patient was educated in proper exercise technique and purpose for exercises. Skilled judgment was provided in selection of appropriate interventions. Correct performance of therapeutic exercises was facilitated with verbal and visual cuing. Patient education as noted. Billing: [facility]: Therapeutic Exercise ([id number]): 1:1 time: 40 minutes (3 units: 38-52 mins) Total time / Length of visit: 40 minutes Nevin Lopez PT-A/Ngozi Gordillo PT documented in this encounterLito Azul MD - 02/14/2020 1:07 PM EDT [facility] [address] [place], [place] [address] Dionisio Gallego PA-C [address] [facility] [address] PCP: No primary care provider on file. CC: Headache HPI: Past medical history significant for depression Headaches for the past for the past several years They occur once a week Right occipital Pain can last hours Aching pain Some nausea , occasional vomiting No photophobia and phonophobia Nothing brings the pain on Excedrin helps with these headaches CT brain in 2016 was normal Current Medications: Current Outpatient Medications Medication Sig ? oxybutynin ER (DITROPAN XL) 10 mg 24 hr tablet TAKE 1 TABLET BY MOUTH ONCE DAILY AT SUPPER TIME ? venlafaxine ER (EFFEXOR XR) 150 mg 24 hr capsule Take 150 mg by mouth. ? pantoprazole DR (PROTONIX) 40 mg tablet Take 40 mg by mouth. ? etodolac (LODINE) 400 mg tablet Take 400 mg by mouth every 8 hours. ? pantoprazole DR (PROTONIX) 40 mg tablet Take 1 tablet by mouth daily before dinner. ? ondansetron (ZOFRAN) 4 mg tablet Take 0.5-1 tablets by mouth every 8 hours as needed for Nausea/Vomiting. ? Cholecalciferol, Vitamin D3, 2,000 unit cap Take 1 capsule by mouth once daily. ? Amoxicillin 500 mg tablet Take 6 tablets by mouth 1 hour before dental procedure and 2 tablets by mouth 6 hours after. ? aspirin, enteric coated (ECOTRIN LOW STRENGTH) 81 mg EC tablet Take 1 tablet by mouth twice daily for 28 days. ? ascorbic acid, vitamin C, (VITAMIN C) 500 mg tablet Take 1 tablet by mouth twice daily with meals. ? budesonide-formoterol (SYMBICORT) 160-4.5 mcg/actuation inhaler Inhale 2 Puffs as instructed twicedaily. ? albuterol HFA (PROVENTIL HFA, VENTOLIN HFA) 90 mcg/actuation inhaler INHALE 1 PUFF BY MOUTH EVERY 4 HOURS NEEDED AND 15 MINUTES PRIOR TO ACTIVITY ? CALCIUM CITRATE/VITAMIN D3 (CITRACAL + D ORAL) Take by mouth once daily. ? Irqprfx-Oicedjkqancwd-Hbabvmbe (EXCEDRIN MIGRAINE) 250-250-65 mg per tablet Take 1 tablet by mouthevery 6 hours as needed (migraine). No current facility-administered medications for this visit. Allergies: ALLERGIES Allergen Reactions ? Cymbalta [Duloxetin* Other: See Comments Made her feel emotionless. Family History: FAMILY HISTORY Problem Relation Age of Onset ? Cancer Father ? Coronary Artery Disease Father Early 70's CABG x5 ? Coronary Artery Disease Brother aged 52, [place] ? Diabetes Brother Type II ? No Family History Other Colon Cancer/Polyps Past Medical History/Past Surgical History PAST MEDICAL HISTORY Diagnosis Date ? Abnormal stress test Cardiac cath was negative ? Age-related osteoporosis without current pathological fracture 10/16/2017 ? Brachial neuritis or radiculitis NOS 05/13/2010 ? Bucket handle tear of lateral meniscus(717.41) 12/05/2005 ? Cervical arthritis ? Cervical spondylosis without myelopathy 04/13/2007 ? Cervicalgia 03/22/2007 ? Chronic obstructive pulmonary disease (HCC) 02/05/2018 ? Compression fracture of lumbar spine, non-traumatic (HCC) 01/31/2014 ? Congenital spondylolisthesis 04/13/2007 ? Depressive disorder, not elsewhere classified ? Displacement of lumbar intervertebral disc without myelopathy 01/31/2014 ? Ex-smoker ? GERD (gastroesophageal reflux disease) ? Headache 07/17/2012 ? History of dislocation of hip 07/09/2014 right ? Lumbago 07/28/2009 ? Lumbar spinal stenosis ? Lumbar spondylosis 07/28/2009 ? Microscopic hematuria 08/20/2010 ? Muscle weakness (generalized) 09/16/2008 ? 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 Occipital neuralgia of right side 02/24/2016 ? Osteoporosis ? Pain in thoracic spine 08/10/2006 ? PELVIC FRACTURE NOS-CLOS: left pubic rami 06/21/2006 ? Preglaucoma, unspecified 07/17/2012 ? Primary localized osteoarthrosis, hand 12/05/2005 ? Primary localized osteoarthrosis, lower leg 12/05/2005 ? Secondary localized osteoarthrosis, pelvic region and thigh 12/05/2005 ? Tear film insufficiency, unspecified 06/24/2013 ? Vitamin D deficiency PAST SURGICAL HISTORY Procedure Laterality Date ? 2D ECHO (EXEP) 03/28/2018 EF=55%, mild Hernandez dysf, normal valves. ? COLONOSCOP W/ OR W/O [facility] SPEC Colonoscopy ? CYSTO.PANENDO Cystoscopy ? KNEE SCOPE,DIAGNOSTIC 06/2010 Arthroscopy, knee ? PAST SURGICAL HISTORY OF R THR x 3 ? PAST SURGICAL HISTORY OF Bilat TKR ? PAST SURGICAL HISTORY OF L Hip pinning (later removed) ? PAST SURGICAL HISTORY OF Heart Cath ? PAST SURGICAL HISTORY OF Dilation of left ureter ? PAST SURGICAL HISTORY OF 05/13 L knee revision ? PAST SURGICAL HISTORY OF 2015 R THR - Brandi ? PAST SURGICAL HISTORY OF Right 07/2014 total hip replacement Social History: Social History Tobacco Use ? Smoking status: Former Smoker Packs/day: 0.15 Years: 1.00 Pack years: 0.15 Types: Cigarettes Quit date: 06/29/2005 Years since quittin.6 ? Smokeless tobacco: Never Used Substance Use Topics ? Alcohol use: Yes Frequency: 4 or more times a week Drinks per session: 1 or 2 Binge frequency: Never ? Drug use: No Use of nonprescribed meds or street drugs No Caffeine use:No ROS: REVIEW OF SYSTEMS GENERAL: No weight loss, malaise or fevers. HEENT: No changes in hearing or vision, no nose bleeds or other nasal problems NECK: Negative for lumps, goiter, pain and significant neck swelling RESPIRATORY: Negative for cough, hemoptysis, wheezing or shortness of breath CARDIOVASCULAR: Negative for chest pain, leg swelling or palpitations. GI: no nausea, vomiting, or diarrhea : No history of dysuria, frequency or incontinence. MUSCULOSKELETAL: Negative for joint pain or swelling, back pain or muscle pain. SKIN: Negative for lesions, rash, and itching. PSYCH: Negative for depression / anxiety and sleep disturbance HEMATOLOGY/LYMPHOLOGY: Negative for prolonged bleeding, bruising easily or swollen nodes. ENDOCRINE: Negative for cold or heat intolerance, polyuria, polydipsia and goiter. NEURO: Headache Physical Exam: Vital Signs: BP 124/51 (BP Site: Left Arm, BP Position: Sitting, BP Cuff Size: Regular Adult) Pulse 76 General: Well appearing HEENT: Normocephalic/atraumatic Musculoskeletal: No gross joint deformities. Neurological:Mental Status: Alert,. Affect is normal. Speech is normal in rate, volume and articulation. Attention span and concentration are good. Cranial Nerves: II -XII intact Motor: Normal muscle tone and bulk. No evidence of atrophy or fasciculations. Strength is normal, 5/5. Tremor: absent. Cerebellar exam: Ataxia absent Gait examination: Normal Impression: Right sided Occipital neuralgia Cervicalgia She doesn't want to be on daily meds Plan : Take Zanaflex 4 mg when needed for headaches Lito Azul MD Staff February 14, 2020 documented in this encounterNgozi Gordillo (Pt) - 02/21/2020 12:28 PM EDT Episode Visit Count: 5 Therapist That Will Oversee The Plan Of Care: Ngozi Gordillo Start of Care Date: 01/13/20 Onset Date: 12/10/19 Plan of Care Certification Date: 02/21/20 Next Certification Due Date: 04/03/20 Patient Identified by Name and Date of : Yes REHABILITATION AND SPORTS THERAPY PHYSICAL THERAPY PROGRESS REPORT PLAN OF CARE UPDATE: Assessment: Argenis Ho exhibits difficulty with strength,pain in back hip and knee on left. She is also struggling with depression but reports she has adjusted her meds. She is also working on MRI for her back. She admits that she needs to work on her therapy so she is able to walk better. . She continues to be limited with strength, functional status. . She is progressing slower than expected towards her therapy goals as demonstrated by: pain levels, documented subjective information on progress and documented objective information regarding gait, ADL's and strength. She will benefit from continued skilled therapy requiring progression of strengthening in order to further improve functional status. Functional gains: None at this time Goals for Episode of Care: created on 01/13/20 through 03/09/20 updated 02/21/2020 [place] in home exercise program./ partially achieved Patient will decrease pain rating by 2 points to meet minimal clinical important difference for numeric pain rating scale./ not achieved Patient will increase active ROM of hip abduction to 25 degrees to allow pt to to improve performance of ADLs./ achieved Patient will Improve Timed Up and Go to 12 seconds to demonstrate decreased risk of falling./ partially achieved Increased strength of hip and left leg to perform sit to stand with no hands / partially achieved Normal gait./not achieved Reciprocal stair negotiation./ not achieved Patient Goals: Wants to be able to walk one mile without getting winded. / not achieved . Planned Interventions, Frequency, and Duration: 1x/week, 4 weeks Total Number of Visits Planned: 4 Patient to be seen for Therapeutic exercise;Gait Training;Patient/Family/Caregiver Education PLAN FOR NEXT VISIT: Will continue to work on strenthening and gait SUBJECTIVE: Patient Reason for Visit: Pt notes that she has not been doing well. Reports that she ishaving alot of pain in left lumbar area. Also reports pain and weakness in left hip and left knee patellar area is painful . Pain: Pain Pain Level: 5 Pain Location: Hip - Left Pain Level 2: 5 Pain Location 2: Low Back/Lumbar Spine - Left;Knee - Left Description 2: Aching Post Treatment Pain Post Treatment Pain Level: No Change Post Treatment Pain Location: Hip - Left Post Treatment Pain Description: Aching PROMIS Scales Higher is Better 06/18/2015 12/01/2015 04/13/2017 GH Physical - Percentile 7 % 2 % 4 % GH Mental - Percentile 19 % 5 % 13 % T-scores: mean of general population = 50. 5 points is clinically meaningfully difference Percentiles provide an indication of how the patient's score ranks in relation to the general population. Higher percentile rankings indicate better function/quality of life. 50th percentile is the average of the general population and indicates half of respondents had a worse score. T-scores: mean of general population = 50. 5 points is clinically meaningfully difference Percentiles provide an indication of how the patient's score ranks in relation to the general population. Higher percentile rankings indicate better function/quality of life. 50th percentile is the average of the general population and indicates half of respondents had a worse score. OBJECTIVE MEASURES WITH LEVEL OF FUNCTION: LE AROM L Hip ABduction : 25 Degrees LE Strength L Hip ABduction: 4-/5 Functional Strength Functional Strength: Pt still performed steps one at a time Does not have steps at home. One to enter Trendelenburg: left with gait. Gait Gait Deviations: Left Lower Extremity Gait Deviations Left Lower Extremity: Step length decreased;Stance time decreased;Trendelenburg Stairs: Independent Stairs Device: Cane;Rail Number of Stairs: 4 Functional Performance Test Results Assistive Device: Cane Timed Up and Go (sec): 17 sec TREATMENT: Therapeutic Exercise: 1: standing hamstring curls 1 1/2 # B 2x10 2: standing hip abduction with 1 1/2 #2x10 B 3: green rep band seated hamstring curls 2x12 4: sit to [id number] 5: seated yellow hip band abduction seated 2x10 6: SAQ 1 1/2# 2x10 7: supine hip adductor stretch 20 sec x3 8: seated core dynamic stabilization yellow rep band perturbation from front 3x10 10: supine hip abduction 2x10 11: green step ups with mild hand assist 1x10 12: gait without st. cane cues for increased step length and decreased IR Skilled Intervention: Patient was educated in proper exercise technique and purpose for exercises. Reviewed and educated patient on additions/changes for home exercise program Skilled judgment was provided in selection of appropriate interventions. Correct performance of therapeutic exercises was facilitated with verbal and visual cuing. Patient education as noted. Home Exercise Program Assigned: 1: add yellow rep band hip abduction Billing: [facility]: Therapeutic Exercise ([id number]): 1:1 time: 40 minutes (3 units: 38-52 mins) Total time / Length of visit: 40 minutes Ngozi Gordillo PT documented in this encounterObinna Last (Aida) - 04/03/2020 10:47 AM EDTChronic, severe T12 compression deformity Clay next available Obinna Last PA-C Obinna Last) - 03/26/2020 12:06 PM EDT Patient name: Argenis Ho Are you being referred by a [facility] Provider or Pain Management Provider at [facility]? No If answer is YES please schedule directly with surgeon, triage does not need to be completed. Is this a self-referral No If not, who is the Referring Provider Dr. Kodak Berg MRI/CT/myelogram within 12 months? Yes If NO, please refer to medical spine or PCP to complete above imaging, triage does not need to be completed MRI/CT/myelogram viewable in Epic: No If not, please provide [phone] to fax in imaging reports for review. Also, please inform patient to hand carry imaging disc to appointment. XR (spine) within 12 months: No If YES,? please ask for the name/address of the facility where the XR was completed: N/A Requested provider (First and Last name): Dr. Amor Williamson 1. Where are you having symptoms related to this visit? Lower back on left hand side; in a lot of pain 2. Are you having any of the following symptoms: Difficulty walking Yes Numbness No Weakness No Trouble using your hands? No 3. Have you had any injections or physical therapy in the last 12 months? Yes If YES then please ask for the name/address of the facility where the injections and/or physical therapy was completed : Physical Therapy: @[facility] Have you tried any other kinds of non-surgical treatments in the last 12 months? (For example: NSAIDS, muscle relaxants, analgesics, oral steroids, Chiropractor, Acupuncture): muscle relaxants 4. Are you currently taking daily prescribed narcotic medications for your current symptoms (For example Oxycodone, Hydrocodone, Tramadol, Morphine, Other)? No 5. Have you had previous spinal surgery for this same symptoms? No If YES? 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 Occipital neuralgia of right side Advance Directives Documents on File Type Date Recorded Patient Registered Dietitian Explanati on Advance Directive(s) 01/20/2016 3:30 PM Advance Directive(s) 05/27/2016 6:08 AM Advance Directive(s) 01/20/2017 3:45 PM Advance Directive(s) 01/20/2017 3:49 PM Advance Directive(s) 11/30/2017 1:57 PM Advance Directive(s) 04/12/2018 4:39 PM Advance Directive(s) 11/20/2019 12:19 PM Latest Code Status on File Code Status Date Activated Date Inactivated Comments Full Code 12/14/2019 12:47 PM Summary Purpose Family History No Family History Records FoundNo Family History Records Found Instructions Patient Lito Quinn MD - 02/14/2020 1:13 PM EDT Take Zanaflex 4 mg when needed for headaches Lito Azul MD Staff February 14, 2020 documented in this encounter Additional Source Comments FOR RECORDS PERTAINING TO PATIENTS WHO ARE OR HAVE BEEN ENROLLED IN A CHEMICAL DEPENDENCY/SUBSTANCE ABUSE PROGRAM, SOME INFORMATION MAY BE OMITTED. This clinical summary was aggregated from multiple sources. Caution should be exercised in using it in the provision of clinical care. This summary normalizes information from multiple sources, and as a consequence, information in this document may materially changethe coding, format and clinical context of patient data. In addition, data may be omittedin some cases. CLINICAL DECISIONS SHOULD BE BASED ON THE PRIMARY CLINICAL RECORDS. [employer] [facility] provides no warranty or guarantee of the accuracy or completeness of information in this document. UNRECOGNIZED CONTENT PROVIDED BELOW FOR UNRECOGNIZED SECTION Source Comments In the event this information is protected by the Federal Confidentiality of Alcohol and Drug Abuse Patient Records regulations: The Federal rules restrict any use of the information to criminally investigate or prosecute any alcohol or drug abuse patient.[facility] the event this information is protected by the Federal Confidentiality of Alcohol and Drug Abuse Patient Records regulations: The Federal rules restrict any use of the information to criminally investigate or prosecute any alcohol or drug abuse patient.[facility] the event this information is protected by the Federal Confidentiality of Alcohol and Drug Abuse Patient Records regulations: The Federal rules restrict any use of the information to criminally investigate or prosecute any alcohol or drug abuse patient.[facility] the event this information is protected by the Federal Confidentiality of Alcohol and Drug Abuse Patient Records regulations: The Federal rules restrict any use of the information to criminally investigate or prosecute any alcohol or drug abuse patient.[facility] the event this information is protected by the Federal Confidentiality of Alcohol and Drug Abuse Patient Records regulations: The Federal rules restrict any use of the information to criminally investigate or prosecute any alcohol or drug abuse patient.[facility] the event this information is protected by the Federal Confidentiality of Alcohol and Drug Abuse Patient Records regulations: The Federal rules restrict any use of the information to criminally investigate or prosecute any alcohol or drug abuse patient.[facility] the event this information is protected by the Federal Confidentiality of Alcohol and Drug Abuse Patient Records regulations: The Federal rules restrict any use of the information to criminally investigate or prosecute any alcohol or drug abuse patient.[facility]In the event this information is protected by the Federal Confidentiality of Alcohol and Drug Abuse Patient Records regulations: The Federal rules restrict any use of the information to criminally investigate or prosecute any alcohol or drug abuse patient.[facility] the event this information is protected by the Federal Confidentiality of Alcohol and Drug Abuse Patient Records regulations: The Federal rules restrict any use of the information to criminally investigate or prosecute any alcohol or drug abuse patient.[facility] the event this information is protected by the Federal Confidentiality of Alcohol and Drug Abuse Patient Records regulations: The Federal rules restrict any use of the information to criminally investigate or prosecute any alcohol or drug abuse patient.[facility] UNRECOGNIZED CONTENT PROVIDED BELOW FOR UNRECOGNIZED SECTION Reason for Visit Reason Comments PT Progress Note Status Reason Specialty Diagnoses / Procedures Referred By C ontact Referred To Contact Closed Diagnoses Cervicalgia Low back pain Unspecified inflammatory spondylopathy, cervical region Spinal stenosis, lumbar region García Alvarado Maher Procedures Evaluation and Treatment [address] [facility] [address], [place] [id number] Phone: [address] [place] [address] Fax: Reason Comments Physical Therapy Reason Comments New Patient Evaluation Headaches Reason Onset Date Comments Patient Update 03/12/2020 Reason Onset Date Comments Patient Question 03/16/2020 Reason Onset Date Comments Question 03/20/2020 Reason Onset Date Comments Patient Question 03/24/2020 UNRECOGNIZED CONTENT PROVIDED BELOW FOR UNRECOGNIZED SECTION INFORMATION SOURCE DATE CREATED AUTHOR AUTHOR'S ORGANIZATIO N 05/15/2018 [facility] DATE CREATED AUTHOR AUTHOR'S ORGANIZATIO N 04/10/2020 [facility] UNRECOGNIZED CONTENT PROVIDED BELOW FOR UNRECOGNIZED SECTION Miscellaneous Notes Telephone Encounter - Mar Howard (Jaxon), PA - 03/12/2020 5:29 PM EDTSpoke with patient, she has greater troch bursitis, advised aleve BID x 2 weeks, she will call after2 weeks if it does not improve. elephone Encounter - JaymebonyTonia - 03/12/2020 10:10 AM EDTPatient calling regarding the left hip that was operated on in December. Patient advising that the hip is now causing her a lot of pain. Patient states the pain started about 2 weeks ago and it is a constant pain. Patient states it does not matter it is when she is laying, walking or sitting. Patient states that walking is what hurts it the most and after walking for about 15 mins Pt has to sit from the pain. Patient states not position makes it better. Patient states she is calling to see what she needs to do. Patient would like to know does she need to be seen and does she need an xray. Patient has not injured it and states she has not been seen since her post opt. Patient can be reached at [phone]. Patient states it is ok to leave a detailed Vm if need be. Please advise. documented in this encounterTelephone Encounter - Son Grayson - 03/18/2020 5:32 PM EDTSpoke with the patient, advised her per aMr there is an order for X-ray's on her chart and they arerequesting that she get those images done at any [facility] and continue with the daily Aleve for 2 weeks. Once X-rays are complete they will go from there. She voiced understanding and appreciated the returncall. Telephone Encounter - Tierney Christianson - 03/16/2020 2:32 PM EDTPatient is calling to let provider know she is having pain in her left hip. Patient states she had hip surgery in December of this year. Patient states she does not agree with Mar's diagnosis. Patient requesting an XR and an appointment with provider. Patient would appreciate a return call from provider office to discuss. Please advise. documented in this encounterTelephone Encounter - Aisha Eckert - 03/20/2020 9:40 AM EDTPatient calling stating that she had a MRI that advised that she should consider to consult with a lower back surgeon. She would like 1- 2 names of recommendations for this from her dr Please advise documented in this encounterTelephone Encounter - Bora Fuentes - 03/24/2020 4:24 PM EDTPatient states her MRI indicated back problems and states she would like to know who you recommend that she see for the back Please advise..... documented in this encounter
== END ==
PROVIDERS: Family Provider Family Medicine; PCP Family Medicine; Referring Provider Family Medicine; Visit Provider Family Medicine
DX: J44.9 Chronic obstructive pulmonary disease, unspecified (principal)
CPT/HCPCS: 94618

== ENCOUNTER → 2020-02-17 | Outpatient (CLI) | payer MEDICARE, SELFPAY ==
[2019-06-07 10:39] VITALS: BMI 20.2
--- NOTE | 2020-02-17 15:09 | RAD_ITS ---
STUDY: X-RAY - LUMBAR SPINE REASON FOR EXAM: Female, 79 years old. back pain, chronic TECHNIQUE: 5 view(s) of the lumbar spine were obtained. COMPARISON: None FINDINGS: There is straightening of the normal lumbar lordosis. There is a dextroscoliosis of the lumbar spine. There is a normal alignment of the vertebrae in the lateral view. There is multilevel endplate spondylosis of the lumbar vertebrae. There is multi-level degenerative disc disease with multi-level disc space narrowing. There is no demonstrated acute fracture. Likely chronic compression fractures noted at T12 and L3 There is atherosclerotic calcification of the abdominal aorta without a demonstrated aneurysm. RAD/L/S Spine Min 4 Views IMPRESSION: Degenerative changes of the spine, as detailed above. Chronic compression fractures at T12 and L3 Electronically Signed: Ulysses Andrade MD at 15:56 EDT , Service support ,
[2020-02-17 18:09] LABS: Absolute Neutrophil Count 3.7 X10^3/uL (2.0-7.7); Basophil# 0.06 X10^3/uL; Basophil% 0.9 % (0-1); Eosinophil# 0.66 X10^3/uL; Eosinophils% 10.3 % (0-5); Hemoglobin 12.1 g/dL (12.0-15.0); Lymphocyte % 20.2 % (19-41); Mean Corpuscular Hgb 30.7 pg (27.0-32.0); Mean Platelet Vol. 9.1 fl (6.2-12.0); Monocyte# 0.73 X10^3/uL; Monocyte% 11.4 % (0-10); NRBC Flagged by Analyzer 0 % (0-5); Neutrophil # 3.65 X10^3/uL (2.7-7.7); Neutrophil % 56.9 % (47-70); Platelet Count 353 K/mm3 (150-450); RBC Distribution Width CV 13.7 % (11.6-14.6); RBC Distribution Width SD 50.4 fl (35.1-43.9); Red Blood Count 3.94 M/mm3 (4.2-5.4); White Blood Count 6.4 K/mm3 (4.4-11.0)
[2020-02-17 18:20] LABS: Erythrocyte Sedimentation Rate 6 mm/hr (0-30)
[2020-02-17 18:25] LABS: Vitamin D,25 Hydroxy 34.7 ng/mL
[2020-02-17 18:43] LABS: ALB/GLOB Ratio 1.1 RATIO (0.9-2.4); AST(SGOT) 13 U/L (15-37); Alanine Aminotransfer ALT/SGPT 13 U/L (13-56); Albumin, Serum 3.7 g/dL (3.2-5.0); Alkaline Phosphatase 82 U/L (45-117); Anion Gap 4 (5-15); BUN 15 mg/dL (7-18); BUN/Creat Ratio 19.8 RATIO (10-20); CRP < 2.90 mg/L (0.0-3.0); Calcium,Total 8.9 mg/dL (8.5-10.1); Chloride 102 mmol/L (98-107); Creatinine, Serum 0.76 mg/dL (0.55-1.02); EST Glomerular Filtration Rate 78 mL/min (>60); Est Glom Filt Rate - Afr Amer 95 mL/min (>60); Globulin 3.4 g/dL (2.2-4.2); Glucose 94 mg/dL (74-106); Potassium 4.5 mmol/L (3.5-5.1); Protein, Total 7.1 g/dL (6.4-8.2); Rheumatoid Factor < 10.0 IU/mL (<15); Sodium Level 136 mmol/L (136-145); Thyroid Stim Hormone (TSH) 1.89 uIU/mL (0.358-3.74)
[2020-02-18 00:20] LABS: PTHIN 70.5 pg/mL (18.4-80.1)
[2020-02-19 15:26] LABS: ANTINUCLEAR ANTIBODIES DIRECT Negative (Negative)
[2020-02-19 16:08] LABS: PROEL- A/G Ratio 1.4 (0.7-1.7); PROEL- Albumin 3.9 g/dL (2.9-4.4); PROEL- Alpha-1 Globulin 0.3 g/dL (0.0-0.4); PROEL- Alpha-2 Globulin 0.9 g/dL (0.4-1.0); PROEL- Gamma Globulin 0.6 g/dL (0.4-1.8); PROEL- Globulin, Total 2.7 g/dL (2.2-3.9); PROEL- TOTAL PROTEIN 6.6 g/dL (6.0-8.5)
== END | disposition home or self-care (01) ==
LOC: MTLAB 15:08
PROVIDERS: PCP Family Medicine; Referring Provider Family Medicine; Visit Provider Family Medicine
DX: M54.9 Dorsalgia, unspecified (principal); R53.83 Other fatigue; G89.29 Other chronic pain
CPT/HCPCS: 36415; 72110; 80053; 82306; 83970; 84165; 84443; 85025; 85652; 86038; 86140; 86431

== ENCOUNTER → 2020-07-28 16:12 | Outpatient (CLI) | payer MEDICARE, SELFPAY ==
[2020-07-28 17:50] LABS: Absolute Lymphocyte Count 1.24 X10^3/uL (0.83-4.51); Absolute Neutrophil Count 4.7 X10^3/uL (2.0-7.7); Basophil# 0.05 X10^3/uL; Basophil% 0.7 % (0-1); Hematocrit 37.7 % (37-47); Hemoglobin 12.4 g/dL (12.0-15.0); Lymphocyte # 1.24 X10^3/ul (4.0); Lymphocyte % 17.4 % (19-41); Mean Corp Hgb Conc 32.9 g/dL (32-36); Mean Corpuscular Hgb 32.2 pg (27.0-32.0); Mean Corpuscular Volume 97.9 fL (81-99); Mean Platelet Vol. 9.4 fl (6.2-12.0); Monocyte# 0.61 X10^3/uL; Monocyte% 8.6 % (0-10); NRBC Flagged by Analyzer 0 % (0-5); Platelet Count 296 K/mm3 (150-450); RBC Distribution Width CV 12.5 % (11.6-14.6); RBC Distribution Width SD 44.8 fl (35.1-43.9); Red Blood Count 3.85 M/mm3 (4.2-5.4); White Blood Count 7.1 K/mm3 (4.4-11.0)
[2020-07-28 18:05] LABS: Vitamin B12 507 pg/mL (211-911)
[2020-07-28 18:45] LABS: ALB/GLOB Ratio 1.2 RATIO (0.9-2.4); AST(SGOT) 13 U/L (15-37); Alanine Aminotransfer ALT/SGPT 14 U/L (13-56); Albumin, Serum 3.8 g/dL (3.2-5.0); Alkaline Phosphatase 77 U/L (45-117); Anion Gap 7 (5-15); BUN 15 mg/dL (7-18); BUN/Creat Ratio 18.6 RATIO (10-20); CRP < 2.90 mg/L (0.0-3.0); Calcium,Total 8.9 mg/dL (8.5-10.1); Chloride 106 mmol/L (98-107); Creatinine, Serum 0.81 mg/dL (0.55-1.02); EST Glomerular Filtration Rate 73 mL/min (>60); Est Glom Filt Rate - Afr Amer 88 mL/min (>60); Globulin 3.1 g/dL (2.2-4.2); Glucose 93 mg/dL (74-106); Protein, Total 6.9 g/dL (6.4-8.2); Sodium Level 140 mmol/L (136-145); Thyroid Stim Hormone (TSH) 1.29 uIU/mL (0.358-3.74)
[2020-07-30 15:46] LABS: ANTINUCLEAR ANTIBODIES DIRECT Negative (Negative)
[2020-07-31 14:09] LABS: PROEL- A/G Ratio 1.6 (0.7-1.7); PROEL- Albumin 3.8 g/dL (2.9-4.4); PROEL- Alpha-1 Globulin 0.3 g/dL (0.0-0.4); PROEL- Alpha-2 Globulin 0.8 g/dL (0.4-1.0); PROEL- Beta Globulin 0.8 g/dL (0.7-1.3); PROEL- Gamma Globulin 0.6 g/dL (0.4-1.8); PROEL- Globulin, Total 2.4 g/dL (2.2-3.9); PROEL- TOTAL PROTEIN 6.2 g/dL (6.0-8.5); PROELU- Albumin, Urine 74.7 % (.); PROELU- Alpha-1-Globulin,Ur 2.1 % (.); PROELU- Alpha-2-Globulin,Ur 7.2 % (.); PROELU- Beta Globulin, Ur 11.1 % (.); PROELU- Gamma Globulin, Ur 4.9 % (.); Total Protein, Ur 9.9 mg/dL (Not Estab.)
== END ==
PROVIDERS: PCP Family Medicine; Visit Provider Family Medicine
DX: E53.8 Deficiency of other specified B group vitamins (principal); R10.11 Right upper quadrant pain; R53.83 Other fatigue; J44.9 Chronic obstructive pulmonary disease, unspecified; M48.50XA Collapsed vertebra, not elsewhere classified, site unspecified, initial encounter for fracture; M13.0 Polyarthritis, unspecified; M54.9 Dorsalgia, unspecified
CPT/HCPCS: 36415; 80053; 82306; 82607; 82746; 84165; 84166; 84443; 85025; 86038; 86140

== ENCOUNTER 2020-07-31 15:56 | Outpatient (RCR) | payer MEDICARE, SELFPAY | END 2020-07-31 23:59 | LOC: IMMUN 15:56 | PROVIDERS: PCP Family Medicine; Visit Provider Family Medicine | DX: Z23 Encounter for immunization (principal) | CPT/HCPCS: 0011A; 0012A ==

== ENCOUNTER → 2020-12-08 08:48 | Outpatient (CLI) | payer MEDICARE, SELFPAY ==
[2020-12-08 10:00] LABS: Absolute Lymphocyte Count 1.55 X10^3/uL (0.83-4.51); Absolute Neutrophil Count 2.5 X10^3/uL (2.0-7.7); Basophil# 0.04 X10^3/uL; Basophil% 0.8 % (0-1); Eosinophil# 0.38 X10^3/uL; Eosinophils% 7.7 % (0-5); Hemoglobin 12.9 g/dL (12.0-15.0); Lymphocyte # 1.55 X10^3/ul (0.83-4.51); Lymphocyte % 31.3 % (19-41); Mean Corp Hgb Conc 32.3 g/dL (32-36); Mean Corpuscular Hgb 32.1 pg (27.0-32.0); Mean Corpuscular Volume 99.5 fL (81-99); Mean Platelet Vol. 9.3 fl (6.2-12.0); Monocyte# 0.51 X10^3/uL; Monocyte% 10.3 % (0-10); NRBC Flagged by Analyzer 0 % (0-5); Neutrophil # 2.46 X10^3/uL (2.7-7.7); Neutrophil % 49.7 % (47-70); Platelet Count 267 K/mm3 (150-450); RBC Distribution Width CV 12.4 % (11.6-14.6); RBC Distribution Width SD 45.8 fl (35.1-43.9); Red Blood Count 4.02 M/mm3 (4.2-5.4)
[2020-12-08 10:06] LABS: Erythrocyte Sedimentation Rate 2 mm/hr (0-30)
[2020-12-08 10:36] LABS: ALB/GLOB Ratio 1.3 RATIO (0.9-2.4); AST(SGOT) 17 U/L (15-37); Alanine Aminotransfer ALT/SGPT 14 U/L (13-56); Albumin, Serum 3.9 g/dL (3.2-5.0); Alkaline Phosphatase 64 U/L (45-117); Anion Gap 7 (5-15); BUN 19 mg/dL (7-18); BUN/Creat Ratio 20.6 RATIO (10-20); CRP < 2.90 mg/L (0.0-3.0); Calcium,Total 9.1 mg/dL (8.5-10.1); Chloride 105 mmol/L (98-107); Creatinine, Serum 0.92 mg/dL (0.55-1.02); EST Glomerular Filtration Rate 62 mL/min (>60); Est Glom Filt Rate - Afr Amer 75 mL/min (>60); GGTP 22 U/L (5-55); Glucose 96 mg/dL (74-106); Lipase 71 U/L (73-393); Potassium 3.6 mmol/L (3.5-5.1); Protein, Total 6.9 g/dL (6.4-8.2); Sodium Level 140 mmol/L (136-145); Thyroid Stim Hormone (TSH) 1.83 uIU/mL (0.358-3.74)
== END ==
PROVIDERS: PCP Family Medicine; Visit Provider Family Medicine
DX: R10.11 Right upper quadrant pain (principal); R53.83 Other fatigue; K29.70 Gastritis, unspecified, without bleeding; T39.395A Adverse effect of other nonsteroidal anti-inflammatory drugs [NSAID], initial encounter; Y92.9 Unspecified place or not applicable; R51.9 Headache, unspecified; Z79.899 Other long term (current) drug therapy
CPT/HCPCS: 36415; 80053; 82977; 83690; 84443; 85025; 85652; 86140

== ENCOUNTER → 2020-12-09 07:54 | Outpatient (CLI) | payer MEDICARE, SELFPAY ==
--- NOTE | 2020-12-09 07:59 | US_ITS ---
STUDY: ABDOMINAL ULTRASOUND - RIGHT UPPER QUADRANT REASON FOR VISIT: Female, 80 years old chronic right upper quadrant pain. TECHNIQUE: Ultrasound evaluation of the right upper quadrant was performed with real-time and static neves-scale imaging. TECHNICAL QUALITY: Adequate. COMPARISON: Comparison is made with prior study dated 01/01/2019. FINDINGS: Liver: The liver measures 12.4 cm. There is increased echogenicity consistent with fatty infiltration. The bile ducts are within normal limits. There is hepatic color flow. The direction of portal flow is hepatopetal. There is no demonstrated mass lesion. Gallbladder: Normal distended gallbladder. The gallbladder wall measures 2.8 mm. There is a negative sonographic Mosley''s sign. There is no pericholecystic fluid. There are no gallstones. Common Bile Duct (C.B.D.): The common bile duct measures 3.7 mm. Pancreas: Normal size of the head, body and tail of the pancreas. There is increased echogenicity of the pancreas. There is no demonstrated pancreatic mass or cyst. Right Kidney: Normal size of the right kidney. The right kidney measures 9.7 cm x 3.9 cm x 4.5 cm. Normal renal cortex. The right cortex measures 2 cm. There is no demonstrated renal mass or cyst. There is no right hydronephrosis. US/Abdomen Limited IMPRESSION: Fatty infiltration of the liver. Electronically Signed: Lasha Powell MD at 13:26 EDT , Service support ,
== END ==
PROVIDERS: PCP Family Medicine; Referring Provider Family Medicine; Visit Provider Family Medicine
DX: R10.11 Right upper quadrant pain (principal)
CPT/HCPCS: 76705

== ENCOUNTER → 2021-04-02 10:33 | Outpatient (CLI) | payer MEDICARE, SELFPAY ==
--- NOTE | 2021-04-02 17:46 | CT_ITS ---
STUDY: CT ABDOMEN WITH CONTRAST REASON FOR EXAM: Female, 80 years old. RUQ pain worse supine. Not meal related. Worse on exam/pushing, RADIATION DOSAGE (If Supplied By Facility): CTDIvol = ( 8.94 ) mGy, DLP = ( 262.80 ) mGycm TECHNIQUE: Transaxial images were obtained post I.V. administration of IV 75mL Isovue-370, and oral contrast. Sagittal and coronal images were reconstructed. Individualized dose optimization techniques were used for this CT. COMPARISON: None. FINDINGS: The visualized lung bases are unremarkable. The visualized portions of the heart are within normal limits. Normal liver. Normal gallbladder and extrahepatic biliary system. Normal spleen. Normal pancreas. Normal bilateral adrenal glands. Normal right kidney. Normal left kidney. Left renal cysts redemonstrated. Normal visualized stomach. Normal small intestine. Normal colon. There is non-visualization of the appendix. Normal abdominal aorta. Normal inferior vena cava. Normal retroperitoneum. Normal abdominal wall. There are diffuse degenerative changes of the visualized lumbar spine. CT/Abdomen WITH IV Contrast IMPRESSION: No acute abnormal finding in the abdomen. Electronically Signed: Junior Graves MD at 7:34 EDT Tel , Service support ,
== END ==
PROVIDERS: PCP Family Medicine; Referring Provider Family Medicine; Visit Provider Family Medicine
DX: R10.11 Right upper quadrant pain (principal); G89.29 Other chronic pain
CPT/HCPCS: 74160; Q9967; A4216

== ENCOUNTER → 2021-04-09 | Outpatient (CLI) | payer MEDICARE, SELFPAY | END | disposition home or self-care (01) | LOC: LABSPEC 07:16 | PROVIDERS: PCP Family Medicine; Referring Provider Nurse Practitioner Family; Visit Provider Nurse Practitioner Family | DX: J06.9 Acute upper respiratory infection, unspecified (principal) | CPT/HCPCS: 87633; 87635; U0005; U0003 ==

== ENCOUNTER 2021-04-29 16:16 | Emergency (ER) | payer MEDICARE, SELFPAY ==
[2021-04-29 16:17] VITALS: BP 144/80; PULSE 80; RESP 16; TEMP 35.9; O2SAT 97; BMI 19.3
--- NOTE | 2021-04-29 16:20 | ED.RN ---
CALLED FOR EKG AT 1619.
--- NOTE | 2021-04-29 16:29 | EKG12_ITS ---
Test Reason : ABD PAIN Blood Pressure : / mmHG Vent. Rate : 075 BPM Atrial Rate : 074 BPM P-R Int : 166 ms QRS Dur : 078 ms QT Int : 392 ms P-R-T Axes : 001 064 079 degrees QTc Int : 437 ms Undetermined rhythm : Consider Sinus vs Ectopic Atrial Rhythm Consider Left ventricular hypertrophy Abnormal ECG Confirmed by SANDRITA MCKEON, JIMI ([id number]), medical editor DAVID CERON ([id number]) on 04/30/2021 1:51:19 PM Referred By: JONNY Confirmed By:JIMI REMY MD
--- NOTE | 2021-04-29 16:30 | ED.VIS.GI ---
HPI HPI - GI History of Present Illness Chief Complaint: Abd Pain Narrative Narrative: 80-year-old female presenting for burning pain in her epigastrium which radiates into her esophagus. She has nausea associated. This is an acute on chronic issue and she has had this multiple times in the past. She also states that she is at intermittent headaches over the last 4 weeks. Patient states that even though she was having headaches and burning in her stomach she still went on vacation and was able to tolerate this. Upon arrival home she states that she has been getting worse. Patient wanted to come to the hospital last night but she states her is elderly and she did not want to leave him. Patient states that when she woke up this morning she felt well and then after eating toast and had for breakfast her symptoms returned. She came today with her daughter. She states that her headache is not acute in onset. She has no visual complaints, gait instability. Her daughter states that she has been reading about headaches and she states that people who have chronic occipital headaches probably have low potassium. She wants to have this checked. PFSH [facility] Medical History NEFTALY positive Back pain Chronic headaches Colonic polyp COPD (chronic obstructive pulmonary disease) DVT (deep venous thrombosis) GERD (gastroesophageal reflux disease) Glaucoma Iron deficiency anemia Major depressive disorder Neoplasm of kidney Occipital neuralgia of right side Osteoarthritis Spondylosis Vitamin D deficiency Home Medications ondansetron HCl 4 mg tablet 4 mg PO BID-TID 01/09/19 [History Last Taken Unknown] venlafaxine 150 mg capsule,extended release 24 hr 150 mg PO DAILY 01/09/19 [History Last Taken Unknown] fluconazole 200 mg PO DAILY #21 tab 01/14/19 [Rx Last Taken Unknown] pantoprazole 40 mg PO DAILY #30 tab 01/14/19 [Rx Last Taken Unknown] pantoprazole [Protonix] 40 mg PO DAILY #30 tab 04/29/21 [Rx Last Taken Unknown] sucralfate [Carafate] 10 ml PO BID PRN #200 ml 04/29/21 [Rx Last Taken Unknown] Allergy/AdvReac Type Severity Reaction Status Date / Time cymbalta AdvReac Unknown Uncoded 04/29/21 16:30 Family History Father CAD (coronary artery disease) CABG x 5 Brother CAD (coronary artery disease) age 59 Diabetes Surgical History History of bilateral knee replacement History of left heart catheterization (~2002) History of open reduction and internal fixation (ORIF) procedure History of right hip replacement Social History Smoking Status: Never smoker alcohol intake: current alcohol intake frequency: a few times a week ROS ROS ED Constitutional Constitutional ED: Denies chills or fever(s) ENT ENT ED: Denies rhinorrhea or sore throat Cardiovascular Cardiovascular: Denies chest pain or palpitations Respiratory/Chest Respiratory/Chest: Denies cough or dyspnea Gastrointestinal Gastrointestinal: Reports abdominal pain, constipation and nausea; Denies diarrhea Genitourinary Genitourinary ED: Denies dysuria or hematuria Musculoskeletal Musculoskeletal: Denies arthralgias, back pain, myalgias or neck pain Integumentary Denies Abrasions or rash Neurologic Neurologic: Reports headache(s); Denies paresthesias Psychiatric Psychiatric: Denies anxiety or depression EXAM Physical Exam Const Vital Signs: 04/29/21 16:17 04/29/21 19:18 Temperature 96.6 F L Temperature Source Temporal Pulse Rate 80 78 Respiratory Rate 16 16 Blood Pressure 144/80 H 145/66 H Blood Pressure Mean 101 92 Pulse Ox 97 97 Oxygen Delivery Method Room Air Room Air Positive well nourished General Appearance ED: NAD; Negative for pallor HEENT Reports moist mucous membranes normocephalic and atraumatic Eyes PERRL and EOMs intact bilaterally General Eye ED: Negative for pale conjunctiva or scleral icterus Resp normal respiratory effort and clear to auscultation bilaterally Cardio regular rate and regular rhythm GI non-distended Palpation: soft and tender epigastric Neuro CN's II-XII intact bilaterally, moves all extremities and no sensory deficits noted Sensorium / Orientation: alert, oriented to person, oriented to place and oriented to time Motor Exam: strength 5/5 throughout Psych mental status grossly normal and thought process normal Skin General Skin Exam: Negative for jaundice or pallor MDM MDM MDM Narrative Medical decision making narrative: Patient presented with epigastric pain. I did check lab work and she has no leukocytosis. Hemoglobin slightly dropped to 10.7 and this is 12.9 in December. Platelets are normal 294. LFTs and electrolytes are normal. Renal function is normal. Lipase is normal. Troponin is normal. EKG on my interpretation shows a normal sinus rhythm medicine at a ventricular rate of 75 bpm without sign of ischemic change. Chest x-ray is interpreted by myself shows no acute cardiopulmonary process and the radiologist does agree. I did check a Hemoccult stool which is negative. Patient's vital signs are stable she is afebrile. She was initially treated with morphine and Zofran and her stomach pain did improve however her headache got worse. I did give her Reglan and Benadryl and her headache is improved. I do believe her epigastric pain is likely caused by gastritis versus ulcer. She was given a GI cocktail for this. I counseled her for her headache which is chronic she is to follow-up with her primary care physician. Patient counseled that is possible over this timeframe as she could have had a bleeding ulcer at some point and this could be why she is having anemia. I do recommend that she has an upper endoscopy in the near future. I did give her the information for Dr. Bonilla. She will be started on a PPI and Carafate as needed and follow-up with her primary care physician tomorrow or she can discuss her headache. Impression: 1. Epigastric pain 2. Headache 3. Anemia Lab Data Labs: Laboratory Results - last 24 hr 04/29/21 04/29/21 16:40 16:40 WBC 5.1 RBC 3.41 L Hgb 10.7 L Hct 33.2 L MCV 97.4 MCH 31.4 MCHC 32.2 RDW Std Deviation 46.1 H RDW Coeff of Mark 12.8 Plt Count 294 MPV 8.8 Immature Gran % (Auto) 0.200 Neut % (Auto) 53.1 Lymph % (Auto) 26.5 [place] % (Auto) 13.1 H Eos % (Auto) 6.1 H Baso % (Auto) 1.0 Absolute Neuts (auto) 2.7 Absolute Lymphs (auto) 1.34 Nucleated RBC % 0 Sodium 137 Potassium 4.0 Chloride 106 Carbon Dioxide 27.0 Anion Gap 4 L BUN 16 Creatinine 0.82 Estim Creat Clear Calc 47.02 Est GFR (MDRD) Af Amer 86 Est GFR (MDRD) Non-Af 71 BUN/Creatinine Ratio 19.4 Glucose 99 Calcium 8.5 Total Bilirubin 0.20 AST 11 L ALT 14 Alkaline Phosphatase 54 Troponin I High Sens 16 Total Protein 6.7 Albumin 3.4 Globulin 3.3 Albumin/Globulin Ratio 1.0 Lipase 118 Radiography Diagnostic Testing: Clinical Impression(s) from Imaging Studies Chest X-Ray 04/29/21 16:44 IMPRESSION: No acute cardiopulmonary pathology Electronically Signed: García Wells MD at 16:58 EDT , Service support , Discharge Plan Triage Chief Complaint: Abd Pain ED Provider: Kraig Myles Dx/Rx/DC Orders Instructions: Self-Care for Headaches, ED Anemia, Type Not Specified (Adult), ED PEPTIC ULCER vs GASTRITIS Prescriptions: New pantoprazole [Protonix] 40 mg tablet,delayed release (DR/EC) 40 mg PO DAILY Qty: 30 RF: 0 sucralfate [Carafate] 100 mg/mL suspension 10 ml PO BID PRN (Reason: stomach upset) Qty: 200 RF: 0 No Action venlafaxine 150 mg capsule,extended release 24hr 150 mg PO DAILY RF: 0 ondansetron HCl [Zofran] 4 mg tablet 4 mg PO BID-TID RF: 0 pantoprazole 40 MG tablet 40 mg PO DAILY Qty: 30 RF: 2 fluconazole 200 MG tablet 200 mg PO DAILY Qty: 21 RF: 0 Primary Care Provider: Sergio Bailey Referrals: Sergio Bailey MD [Primary Care Provider] - Disposition Disposition: Home, Self Care Discharge Date/Time: 04/29/21 19:20
[2021-04-29] MEDS: Ondansetron 4 MG/2 ML Vial IV (16:37)
[2021-04-29] MEDS: Morphine 4 MG/ML Syringe IV (16:38)
--- NOTE | 2021-04-29 16:44 | RAD_ITS ---
STUDY: X-RAY CHEST REASON FOR EXAM: Female, 80 years old. epigastric pain TECHNIQUE: AP portable COMPARISON: 10/21/2019 FINDINGS: The lungs are clear and expanded. There is no demonstrated pleural abnormality. Normal size heart. Normal mediastinum and bob. Normal visualized pulmonary arteries. Tortuous mildly calcified aortic arch and descending thoracic aorta. Dorsal spine demonstrates scoliosis and degenerative change. Normal visualized ribs, clavicles, and shoulders. There is no demonstrated abnormality of the visualized soft tissue structures of the upper abdomen. No significant change since prior exam RAD/Chest 1 View (Portable) IMPRESSION: No acute cardiopulmonary pathology Electronically Signed: García Wells MD at 16:58 EDT , Service support ,
[2021-04-29 16:54] LABS: Absolute Lymphocyte Count 1.34 X10^3/uL (0.83-4.51); Absolute Neutrophil Count 2.7 X10^3/uL (2.0-7.7); Basophil# 0.05 X10^3/uL; Eosinophil# 0.31 X10^3/uL; Eosinophils% 6.1 % (0-5); Hematocrit 33.2 % (37-47); Hemoglobin 10.7 g/dL (12.0-15.0); Lymphocyte # 1.34 X10^3/ul (0.83-4.51); Lymphocyte % 26.5 % (19-41); Mean Corp Hgb Conc 32.2 g/dL (32-36); Mean Corpuscular Hgb 31.4 pg (27.0-32.0); Mean Corpuscular Volume 97.4 fL (81-99); Mean Platelet Vol. 8.8 fl (6.2-12.0); Monocyte# 0.66 X10^3/uL; Monocyte% 13.1 % (0-10); NRBC Flagged by Analyzer 0 % (0-5); Neutrophil # 2.68 X10^3/uL (2.7-7.7); Neutrophil % 53.1 % (47-70); Platelet Count 294 K/mm3 (150-450); RBC Distribution Width CV 12.8 % (11.6-14.6); RBC Distribution Width SD 46.1 fl (35.1-43.9); Red Blood Count 3.41 M/mm3 (4.2-5.4); White Blood Count 5.1 K/mm3 (4.4-11.0)
[2021-04-29 17:13] LABS: AST(SGOT) 11 U/L (15-37); Alanine Aminotransfer ALT/SGPT 14 U/L (13-56); Albumin, Serum 3.4 g/dL (3.2-5.0); Alkaline Phosphatase 54 U/L (45-117); Anion Gap 4 (5-15); BUN 16 mg/dL (7-18); BUN/Creat Ratio 19.4 RATIO (10-20); Calcium,Total 8.5 mg/dL (8.5-10.1); Chloride 106 mmol/L (98-107); Creatinine, Serum 0.82 mg/dL (0.55-1.02); EST Glomerular Filtration Rate 71 mL/min (>60); Est Glom Filt Rate - Afr Amer 86 mL/min (>60); Estimated Creatinine Clearance 47.02 ml/min; Globulin 3.3 g/dL (2.2-4.2); Glucose 99 mg/dL (74-106); Lipase 118 U/L (73-393); Protein, Total 6.7 g/dL (6.4-8.2); Sodium Level 137 mmol/L (136-145); Troponin-I HS 16 pg/mL (3.0-54.0)
[2021-04-29] MEDS: Famotidine 200 MG/20 ML MDV 20 MG in 0.9% Normal Saline (Pres. free 8 ML 300 MG IV (17:16)
[2021-04-29] MEDS: Metoclopramide 10 MG/2 ML Vial IV (17:59)
[2021-04-29] MEDS: DiphenhydrAMINE 50 MG/ML Syringe 25 MG IV (18:02)
[2021-04-29] MEDS: Mag Hydrox/Al Hydrox/Simeth 30 ML UDC PO (19:08)
[2021-04-29 19:18] VITALS: BP 145/66; PULSE 78; RESP 16; O2SAT 97
== END 2021-04-29 19:20 | disposition home or self-care (01) ==
PROVIDERS: Emergency Provider Student in an Organized Health Care Education/Training Program; PCP Family Medicine
DX: R10.13 Epigastric pain (principal); R51.9 Headache, unspecified; D64.9 Anemia, unspecified; K21.9 Gastro-esophageal reflux disease without esophagitis; J44.9 Chronic obstructive pulmonary disease, unspecified; M19.90 Unspecified osteoarthritis, unspecified site; Z79.899 Other long term (current) drug therapy
CPT/HCPCS: 71045; 80053; 82274; 83690; 84484; 85025; 93005; 96374; 96375; 99284; A4216; J2405; J3490

== ENCOUNTER 2021-05-01 07:27 | Emergency (ER) | payer MEDICARE, SELFPAY ==
[2021-05-01 07:28] VITALS: BP 152/60; PULSE 66; RESP 18; TEMP 36.6; O2SAT 99; BMI 20.5
--- NOTE | 2021-05-01 07:49 | CT_ITS ---
STUDY: CT BRAIN WITHOUT CONTRAST REASON FOR EXAM: Female, 80 years old. headache RADIATION DOSAGE (If Supplied By Facility): CTDIvol = ( 44.99 ) mGy, DLP = ( 762.36 ) mGycm TECHNIQUE: Transaxial CT imaging of the brain was performed without administration of intravenous contrast material. Individualized dose optimization techniques were used for this CT. COMPARISON: 03/26/2017 FINDINGS: There is cerebral atrophy with widening of the extra-axial spaces and ventricular dilatation. There are areas of decreased attenuation within the white matter tracts of the supratentorial brain, consistent with microvascular disease changes. Left basal ganglia calcifications are again noted. There is no intracranial hemorrhage. There are no findings of an acute ischemic infarction. Normal soft tissue structures. Normal visualized paranasal sinuses. CT/Brain/Head without Contrast IMPRESSION: Chronic involutional changes of the brain. Electronically Signed: Joyce Brown MD at 8:31 EDT Tel , Service support ,
[2021-05-01] MEDS: DiphenhydrAMINE 50 MG/ML Syringe 12.5 MG IV (08:00)
[2021-05-01] MEDS: Metoclopramide 10 MG/2 ML Vial IV (08:00)
[2021-05-01] MEDS: Ketorolac 15 MG/ML Vial IV ×2 (08:06→09:05)
[2021-05-01] MEDS: MethylPREDNISolone 125 MG/2 ML Vial IV (09:05)
[2021-05-01 09:28] VITALS: RESP 16
[2021-05-01] MEDS: Acetaminophen/Butalbital/Caffe 1 Tablet 2 TABLET PO (09:45)
--- NOTE | 2021-05-01 11:06 | EDS_ITS ---
HPI History of Present Illness Chief Complaint: Headache Informant: patient and family Narrative Narrative: 88-year-old female presents with 1 month of headache. Patient states that she has a history of chronic occipital/tension headaches. She states that about a month ago she developed a headache and has not yet gone away. She states that she went on vacation and it got worse so she had to cut her vacation short. She has been taking a lot of Excedrin and developed what sounds like gastritis for which she was seen in the emergency department a few nights ago. She was placed on Carafate and pantoprazole. She followed up with her primary care doctor who is scheduled an outpatient head CT. Later in the ED course I'm informed that she is to start prednisone tomorrow and she has been referred to a headache specialist. She tells me that today she cannot wait any longer for the head CT that something needs to be done. She denies any neurologic symptoms such as difficulty with speech or vision no arm or leg symptoms. She describes a headache currently is all over. No significant photophobia. She tells me that my doctor does not believe in giving medicine for headaches. I am assuming by the statement she means that she was not prescribed narcotic. She tells me that she has seen a neurologist 1 time in the past and was told that they cannot help her with her tension headache. No fevers or rashes. No sinus symptoms. No hearing changes. [facility] Medical History (Updated 05/01/21 @ 11:[address] Bayron Carney, ) NEFTALY positive Back pain Chronic headaches Colonic polyp COPD (chronic obstructive pulmonary disease) DVT (deep venous thrombosis) GERD (gastroesophageal reflux disease) Glaucoma Iron deficiency anemia Major depressive disorder Neoplasm of kidney Occipital neuralgia of right side Osteoarthritis Spondylosis Vitamin D deficiency Home Medications venlafaxine 150 mg capsule,extended release 24 hr 75 mg PO DAILY 01/09/19 [History Last Taken Unknown] pantoprazole 40 mg PO DAILY #30 tab 01/14/19 [Rx Last Taken Unknown] sucralfate [Carafate] 10 ml PO BID PRN #200 ml 04/29/21 [Rx Last Taken Unknown] budesonide-formoterol 2 puff INHALATION BID 05/01/21 [History Last Taken Unknown] [id number] [Fioricet] 1 cap PO TID PRN #15 cap 05/01/21 [Rx Last Taken Unknown] denosumab [Prolia] 60 mg SUBCUT 05/01/21 [History Last Taken Unknown] prednisone 20 mg PO DAILY 05/01/21 [History Last Taken Unknown] Allergy/AdvReac Type Severity Reaction Status Date / Time cymbalta AdvReac Unknown Uncoded 05/01/21 07:30 Family History Father CAD (coronary artery disease) CABG x 5 Brother CAD (coronary artery disease) age 59 Diabetes Surgical History History of bilateral knee replacement History of left heart catheterization (~2002) History of open reduction and internal fixation (ORIF) procedure History of right hip replacement Social History Smoking Status: Never smoker alcohol intake: current alcohol intake frequency: a few times a week ROS ROS ED Constitutional Constitutional ED: Denies chills, fever(s) or weight loss Eyes Eyes: Denies change in vision or diplopia ENT ENT ED: Denies ear pain, rhinorrhea or sore throat Cardiovascular Cardiovascular: Denies chest pain, orthopnea, palpitations or racing heartbeat Respiratory/Chest Respiratory/Chest: Denies cough, dyspnea or orthopnea Gastrointestinal Gastrointestinal: Denies abdominal pain, diarrhea, nausea or vomiting Genitourinary Genitourinary ED: Denies dysuria, hematuria or urinary frequency Musculoskeletal Musculoskeletal: Reports neck pain; Denies arthralgias, back pain or myalgias Integumentary Denies abscess or rash Neurologic Neurologic: Reports headache(s); Denies paresthesias or weakness Psychiatric Psychiatric: Denies anxiety, depression, suicidal ideation or suicidal thoughts Endocrine Endocrinology: Denies polydipsia, polyphagia or polyuria Allergic/Immunologic Allergic/Immunologic ED: Denies mouth swelling, tongue swelling or urticaria EXAM Physical Exam Const Vital Signs: 05/01/21 07:28 05/01/21 09:28 Temperature 97.9 F Temperature Source Temporal Pulse Rate 66 Respiratory Rate 18 16 Blood Pressure 152/60 H Blood Pressure Mean 90 Pulse Ox 99 Oxygen Delivery Method Room Air Positive well nourished and well developed General Appearance ED: well developed HEENT Reports normocephalic, head/scalp atraumatic, TM's clear and moist mucous membranes HEENT Narrative: No photophobia atraumatic; Negative for temporal artery tenderness or vesicular rash Tympanic Membrane ED: Yes TM's clear Eyes PERRL and EOMs intact bilaterally Neck no lymphadenopathy, supple and no JVD Resp normal respiratory effort and clear to auscultation bilaterally Cardio regular rate, regular rhythm and no murmurs GI normal to inspection, nondistended, normoactive bowel sounds and non-tender Palpation: soft Back/Spine no CVA tenderness and normal ROM Extremity normal to inspection General Extremety ED: Negative for edema General Extremity: Negative for edema Neuro oriented x3 and CN's II-XII intact bilaterally Sensorium / Orientation: alert Motor Exam: strength 5/5 throughout Psych mental status grossly normal Mood & Affect: Negative for depressed or tearful Skin no rashes or lesions noted and no wounds MDM MDM MDM Narrative Medical decision making narrative: Patient and family seem very focused on a head CT. I feel that they believe the head CT is going to give them a answer on how to fix her headache. I explained to them I think the head CT should be pretty normal as you are not having any neurologic symptoms. Head CT was obtained and is unchanged from head CT in 2017. Patient received Toradol Reglan Benadryl. Patient and her daughter tell me that she is no better. Patient then received an additional dose of Toradol and Fioricet along with Solu-Medrol. She was observed. Repeat examination the patient states that she is feeling significantly better. She is going to start prednisone tomorrow and I can write for some Fioricet at home. I'm hesitant to prescribe oral Toradol with her recent gastritis and now starting prednisone. Patient and her daughter are comfortable with this plan patient to be discharged Radiography Diagnostic Testing: Clinical Impression(s) from Imaging Studies Brain CT 05/01/21 07:49 IMPRESSION: Chronic involutional changes of the brain. Electronically Signed: Joyce Brown MD at 8:31 EDT Tel , Service support , Discharge Plan Triage Chief Complaint: Headache ED Provider: Bayron Carney Dx/Rx/DC Orders Clinical Impression: Headache Instructions: ED Headache Unspecified Prescriptions: New iftvjzkxnj-mxiixbhhlhxts-nfha [Fioricet] 50-300-40 mg capsule 1 cap PO TID PRN (Reason: pain) Qty: 15 RF: 0 No Action venlafaxine 150 mg capsule,extended release 24hr 75 mg PO DAILY RF: 0 pantoprazole 40 MG tablet 40 mg PO DAILY Qty: 30 RF: 2 sucralfate [Carafate] 100 mg/mL suspension 10 ml PO BID PRN (Reason: stomach upset) Qty: 200 RF: 0 prednisone 20 mg tablet 20 mg PO DAILY RF: 0 budesonide-formoterol 160-4.5 mcg/actuation Hfa Aerosol Inhaler 2 puff INHALATION BID RF: 0 Prolia 60 mg/mL Syringe 60 mg SUBCUT RF: 0 Primary Care Provider: Sergio Bailey Referrals: Sergio Bailey MD [Primary Care Provider] - As soon as possible Disposition Disposition: Home, Self Care
[2021-05-01 11:43] VITALS: BP 155/86; PULSE 76; RESP 16; O2SAT 97
== END 2021-05-01 11:45 | disposition home or self-care (01) ==
PROVIDERS: Emergency Provider Emergency Medicine; PCP Family Medicine
DX: R51.9 Headache, unspecified (principal); J44.9 Chronic obstructive pulmonary disease, unspecified; K21.9 Gastro-esophageal reflux disease without esophagitis; M19.90 Unspecified osteoarthritis, unspecified site; Z79.899 Other long term (current) drug therapy
CPT/HCPCS: 70450; 96374; 96375; 96376; 99284; A4216

== ENCOUNTER 2021-08-30 15:40 | Outpatient (CLI) | payer MEDICARE, SELFPAY ==
[2021-08-30 17:35] LABS: Absolute Lymphocyte Count 1.34 X10^3/uL (0.83-4.51); Basophil# 0.05 X10^3/uL; Basophil% 0.8 % (0-1); Eosinophil# 0.08 X10^3/uL; Eosinophils% 1.2 % (0-5); Hematocrit 40.9 % (37-47); Hemoglobin 13.2 g/dL (12.0-15.0); Lymphocyte # 1.34 X10^3/ul (0.83-4.51); Lymphocyte % 20.6 % (19-41); Mean Corp Hgb Conc 32.3 g/dL (32-36); Mean Platelet Vol. 9.7 fl (6.2-12.0); Monocyte# 0.95 X10^3/uL; Monocyte% 14.6 % (0-10); NRBC Flagged by Analyzer 0 % (0-5); Neutrophil # 4.04 X10^3/uL (2.7-7.7); Neutrophil % 62.3 % (47-70); Platelet Count 319 K/mm3 (150-450); RBC Distribution Width CV 14.6 % (11.6-14.6); RBC Distribution Width SD 51.9 fl (35.1-43.9); Red Blood Count 4.26 M/mm3 (4.2-5.4); White Blood Count 6.5 K/mm3 (4.4-11.0)
[2021-08-30 18:14] LABS: ALB/GLOB Ratio 1.4 RATIO (0.9-2.4); AST(SGOT) 16 U/L (15-37); Alanine Aminotransfer ALT/SGPT 17 U/L (13-56); Albumin, Serum 3.8 g/dL (3.2-5.0); Alkaline Phosphatase 54 U/L (45-117); Anion Gap 3 (5-15); BUN 19 mg/dL (7-18); BUN/Creat Ratio 19.4 RATIO (10-20); Calcium,Total 9.4 mg/dL (8.5-10.1); Chloride 107 mmol/L (98-107); Creatinine, Serum 0.98 mg/dL (0.55-1.02); EST Glomerular Filtration Rate 58 mL/min (>60); Est Glom Filt Rate - Afr Amer 70 mL/min (>60); Globulin 2.7 g/dL (2.2-4.2); Glucose 81 mg/dL (74-106); Potassium 4.4 mmol/L (3.5-5.1); Protein, Total 6.5 g/dL (6.4-8.2); Sodium Level 138 mmol/L (136-145)
== END 2021-08-30 23:59 | disposition home or self-care (01) ==
LOC: MFPLAB 15:48
PROVIDERS: PCP Family Medicine; Referring Provider Family Medicine; Visit Provider Family Medicine
DX: J44.9 Chronic obstructive pulmonary disease, unspecified (principal)
CPT/HCPCS: 36415; 80053; 85025

== ENCOUNTER 2021-09-06 17:04 | Outpatient (CLI) | payer MEDICARE, SELFPAY ==
--- NOTE | 2021-09-06 17:10 | RAD_ITS ---
EXAM: XR ABDOMEN, 2 VIEWS CLINICAL INDICATION: ABD PAIN, COLICKY TECHNIQUE: Frontal view of the abdomen/pelvis with upright view of the abdomen. This report was created using [employer] report generation technology. COMPARISON: None. FINDINGS: LOWER THORAX: No acute pathology. INTRAPERITONEAL SPACE: No free air. GASTROINTESTINAL TRACT: Stool throughout the colon can suggest constipation. Non-obstructive. No bowel or stomach distention. ORGANS: Unremarkable as visualized. No organomegaly. No abnormal calcifications. BONES/JOINTS: There is scoliosis of the lumbar spine. Total bilateral hip arthroplasty. Degenerative findings in the lumbar spine. SOFT TISSUES: No acute pathology. RAD/Abd Inc Decub and/or Erect IMPRESSION: Stool throughout the colon can suggest constipation. Electronically Signed: Bridger Waldrop MD at 17:27 EST Reading Location ID and State: [facility] / [place] , Service support ,
== END 2021-09-06 23:59 | disposition home or self-care (01) ==
PROVIDERS: PCP Family Medicine; Referring Provider Family Medicine; Visit Provider Family Medicine
DX: R10.84 Generalized abdominal pain (principal)
CPT/HCPCS: 74019

== ENCOUNTER → 2021-12-31 | Outpatient (CLI) | payer MEDICARE, SELFPAY ==
--- NOTE | 2021-12-31 12:41 | RAD_ITS ---
STUDY: X-RAY - ACUTE ABDOMINAL SERIES REASON FOR EXAM: Female, 81 years old. Abdominal pain and distention TECHNIQUE: Single view of the chest. Supine, view(s) of the abdomen were obtained. 3 total views obtained COMPARISON: 09/06/2021 FINDINGS: The lungs are clear and expanded. Normal size heart. Normal mediastinum and bob. Normal visualized pulmonary arteries. There is atherosclerotic calcification of the aortic arch with tortuosity. There is an abundance of fecal material throughout the colon. The soft tissue structures of the abdomen and pelvis are unremarkable. Stable rotatory scoliosis in the lower thoracic and lumbar spine. Stable L1 compression fracture. Replaced bilateral hip joints free of complication RAD/Acute Abdomen Inc Chest IMPRESSION: No acute findings, retained stool No significant interval change since the previous study. Electronically Signed: Ulysses Andrade MD at 9:15 EDT ,
[2021-12-31 15:47] LABS: Absolute Lymphocyte Count 1.24 X10^3/uL (0.83-4.51); Absolute Neutrophil Count 3.9 X10^3/uL (2.0-7.7); Basophil# 0.05 X10^3/uL; Basophil% 0.8 % (0-1); Eosinophil# 0.39 X10^3/uL; Eosinophils% 6.3 % (0-5); Hematocrit 41.4 % (37-47); Hemoglobin 13.1 g/dL (12.0-15.0); Lymphocyte # 1.24 X10^3/ul (0.83-4.51); Mean Corp Hgb Conc 31.6 g/dL (32-36); Mean Corpuscular Hgb 31.6 pg (27.0-32.0); Mean Platelet Vol. 9.5 fl (6.2-12.0); Monocyte# 0.62 X10^3/uL; NRBC Flagged by Analyzer 0 % (0-5); Neutrophil # 3.89 X10^3/uL (2.7-7.7); Neutrophil % 62.7 % (47-70); Platelet Count 327 K/mm3 (150-450); RBC Distribution Width CV 12.5 % (11.6-14.6); RBC Distribution Width SD 45.7 fl (35.1-43.9); Red Blood Count 4.14 M/mm3 (4.2-5.4); White Blood Count 6.2 K/mm3 (4.4-11.0)
[2021-12-31 15:57] LABS: Vitamin B12 320 pg/mL (211-911)
[2021-12-31 16:07] LABS: Erythrocyte Sedimentation Rate 6 mm/hr (0-30)
[2021-12-31 16:10] LABS: ALB/GLOB Ratio 1.3 RATIO (0.9-2.4); AST(SGOT) 17 U/L (15-37); Alanine Aminotransfer ALT/SGPT 13 U/L (13-56); Albumin, Serum 3.9 g/dL (3.2-5.0); Alkaline Phosphatase 57 U/L (45-117); Anion Gap 8 (5-15); BUN 21 mg/dL (7-18); BUN/Creat Ratio 20.6 RATIO (10-20); Chloride 103 mmol/L (98-107); Creatinine, Serum 1.02 mg/dL (0.55-1.02); EST Glomerular Filtration Rate 55 mL/min (>60); Est Glom Filt Rate - Afr Amer 67 mL/min (>60); Globulin 3.1 g/dL (2.2-4.2); Glucose 128 mg/dL (74-106); Potassium 3.8 mmol/L (3.5-5.1); Sodium Level 140 mmol/L (136-145)
== END | disposition home or self-care (01) ==
LOC: MTLAB 12:41
PROVIDERS: PCP Family Medicine; Referring Provider Family Medicine; Visit Provider Family Medicine
DX: E53.8 Deficiency of other specified B group vitamins (principal); K59.09 Other constipation; G47.10 Hypersomnia, unspecified
CPT/HCPCS: 36415; 74022; 80053; 82607; 82746; 84443; 85025; 85652

== ENCOUNTER 2022-03-03 16:31 | Emergency (ER) | payer MEDICARE, SELFPAY ==
[2022-03-03] VITALS (7 sets, daily range): BP systolic 91–168; BP diastolic 62–98; PULSE 78–97; RESP 16–23; TEMP 36.5; O2SAT 92–99; BMI 20.7
--- NOTE | 2022-03-03 16:57 | EKG12_ITS ---
Test Reason : cp Blood Pressure : / mmHG Vent. Rate : 083 BPM Atrial Rate : 083 BPM P-R Int : 144 ms QRS Dur : 088 ms QT Int : 382 ms P-R-T Axes : -10 041 114 degrees QTc Int : 448 ms Sinus rhythm with Premature atrial complexes Left ventricular hypertrophy with repolarization abnormality ( Sokolow-Jacob , Romhilt-Tavarez ) Abnormal ECG Confirmed by LUCIO MCKEON, [place] ([id number]), sports editor DAIVD CERON ([id number]) on 03/04/2022 2:14:19 PM Referred By: Lea Confirmed By:GLO VALDES MD
--- NOTE | 2022-03-03 16:57 | CT_ITS ---
STUDY: CT ABDOMEN AND PELVIS WITH CONTRAST REASON FOR EXAM: Female, 81 years old. abd pain RADIATION DOSAGE (If Supplied By Facility): CTDIvol = ( 13.28 ) mGy, DLP = ( 454.26 ) mGycm TECHNIQUE: Transaxial images were obtained from the dome of the diaphragm to the symphysis pubis without oral contrast. IV 100mL Isovue-370 was administered. Sagittal and coronal images were reconstructed. Individualized dose optimization techniques were used for this CT. COMPARISON: 04/02/2021 FINDINGS: There is minor interstitial thickening at the lung bases.. The visualized portions of the heart are within normal limits. Mild nonspecific fatty infiltration of liver.. Tiny hypoattenuated density in the right lobe which is too small to characterize. Bile ducts are nondilated. Normal gallbladder and extrahepatic biliary system. Normal spleen. Normal pancreas. Normal bilateral adrenal glands. Normal right kidney. Tiny simple and complex cysts in left kidney not significantly changed since prior study. Normal visualized stomach. Nonspecific ileus with diffuse fecal retention in the colon.. No evidence for acute appendicitis. Atherosclerotic changes of the aorta without evidence for aneurysm.. Normal inferior vena cava. Normal retroperitoneum. Limited visualization of pelvic structures due to bilateral hip prostheses producing beam hardening artifact. Nonspecific diffuse fatty infiltrated atrophic right iliopsoas muscle bundles Normal abdominal wall. Lumbar spine demonstrates degenerative changes CT/Abdomen/Pelvis W IV Cont ONLY IMPRESSION: Nonspecific ileus with diffuse fecal retention in the colon. No evidence for small bowel obstruction or acute appendicitis.. Other findings as above Electronically Signed: García Wells MD at 18:14 EDT ,
--- NOTE | 2022-03-03 16:58 | EX.ED.DYSGE1 ---
HPI History of Present Illness Chief Complaint: Chest Pain Informant: patient and family Narrative Narrative: Patient presents with epigastric and right upper quadrant pain. It sounds like she has been having episodes of this for almost a year. There are times its not there. This episode has been going on 3 days. She is not sure if it is worse with food because when she gets episodes she loses her appetite and gets very nauseated so she does not eat. She has vomited occasionally. She has never seen blood. She commonly gets diarrhea with this. But she alternates between diarrhea and constipation chronically. She does have GERD and is on pantoprazole for that. She has had ultrasounds to evaluate for gallbladder issues. She is set to have an EGD and colonoscopy in about a week and a half through [facility]. She cannot think of anything that starts this or stops this. She does not get chest pain. She does not get dyspnea with this. She is not diaphoretic. She denies history of heart disease. The symptoms are not exertional. [facility] Medical History (Updated 03/03/22 @ 21:[address] Sree Price MD) NEFTALY positive Back pain Chronic headaches Colonic polyp COPD (chronic obstructive pulmonary disease) DVT (deep venous thrombosis) GERD (gastroesophageal reflux disease) Glaucoma Iron deficiency anemia Major depressive disorder Neoplasm of kidney Occipital neuralgia of right side Osteoarthritis Spondylosis Vitamin D deficiency Home Medications venlafaxine 150 mg capsule,extended release 24 hr 75 mg PO DAILY 01/09/19 [History Last Taken Unknown] pantoprazole 40 mg tablet,delayed release 40 mg PO DAILY #30 tabs 01/14/19 [Rx Last Taken Unknown] sucralfate 100 mg/mL oral suspension (Carafate) 10 ml PO BID PRN stomach upset #200 mL 04/29/21 [Rx Last Taken Unknown] budesonide-formoterol HFA 160 mcg-4.5 mcg/actuation aerosol inhaler 2 puff inhalation BID 05/01/21 [History Last Taken Unknown] twhygaarcr-aipyusmdhzrjq-eonrmchu 50 mg-300 mg-40 mg capsule (Fioricet) 1 cap PO TID PRN pain #15 caps 05/01/21 [Rx Last Taken Unknown] denosumab 60 mg/mL subcutaneous syringe (Prolia) 60 mg subcut 05/01/21 [History Last Taken Unknown] prednisone 20 mg tablet 20 mg PO DAILY 05/01/21 [History Last Taken Unknown] hydrocodone-acetaminophen 5-325mg 5mg-325mg 1 tab PO Q8H PRN pain 3 days #9 tabs 03/03/22 [Rx Last Taken Unknown] metoprolol succinate 50 mg tablet,extended release 24 hr 50 mg PO DAILY 03/03/22 [History Last Taken Unknown] ondansetron 4 mg disintegrating tablet 4 mg PO Q8H PRN nausea and vomiting #10 tabs 03/03/22 [Rx Last Taken Unknown] Allergy/AdvReac Type Severity Reaction Status Date / Time cymbalta AdvReac Unknown Uncoded 05/01/21 07:30 Family History Father CAD (coronary artery disease) CABG x 5 Brother CAD (coronary artery disease) age 59 Diabetes Surgical History History of bilateral knee replacement History of left heart catheterization (~2002) History of open reduction and internal fixation (ORIF) procedure History of right hip replacement Social History Smoking Status: Never smoker alcohol intake: current alcohol intake frequency: a few times a week ROS ROS ED Constitutional Constitutional ED: Denies chills or fever(s) Eyes Eyes: Denies change in vision ENT ENT ED: Denies rhinorrhea or sore throat Cardiovascular Cardiovascular: Denies chest pain, palpitations or racing heartbeat Respiratory/Chest Respiratory/Chest: Denies cough or dyspnea Gastrointestinal Gastrointestinal: Reports abdominal pain, constipation, diarrhea, nausea and vomiting; Denies melena Genitourinary Genitourinary ED: Denies dysuria or hematuria Musculoskeletal Musculoskeletal: Denies back pain Integumentary Denies rash Neurologic Neurologic: Denies paresthesias or weakness Endocrine Endocrinology: Denies polydipsia or polyuria Hematologic/Lymphatic Hematologic/Lymphatic: Denies easy bleeding or easy bruising Allergic/Immunologic Allergic/Immunologic ED: Denies urticaria EXAM Physical Exam Const Vital Signs: 03/03/22 16:31 03/03/22 16:34 03/03/22 17:31 Temperature 97.7 F L Temperature Source Oral Pulse Rate 84 85 Respiratory Rate 16 20 H Respiratory Effort Normal Non-Labored Blood Pressure 136/87 H 153/95 H Blood Pressure Mean 103 114 Pulse Ox 95 94 Oxygen Delivery Method Room Air Room Air 03/03/22 18:00 03/03/22 19:00 03/03/22 20:00 Temperature Temperature Source Pulse Rate 78 86 85 Respiratory Rate 17 23 H 16 Respiratory Effort Blood Pressure 140/69 H 159/98 H 161/84 H Blood Pressure Mean 92 118 109 Pulse Ox 92 92 93 Oxygen Delivery Method Room Air Room Air Room Air Positive well nourished and well developed General Appearance ED: well developed and NAD; Negative for cyanotic or diaphoretic HEENT Reports moist mucous membranes Eyes General Eye ED: Negative for scleral icterus Neck no lymphadenopathy, supple and no JVD Chest Wall inspection of chest normal and palpation of chest normal Resp normal respiratory effort and clear to auscultation bilaterally Auscultation: Negative for wheezes Cardio regular rate and regular rhythm GI normal to inspection, nondistended, normoactive bowel sounds GI Narrative: Patient states her pain is all below the ribs on the right in the epigastric area. It is not above the ribs and she is not tender on the ribs. She does have some mild right upper quadrant tenderness. There is mild epigastric tenderness. There is also just a hint of tenderness along the right side down toward the right lower quadrant but not all the way. I see no rashes. I feel no hernia. I feel no mass. Back/Spine no CVA tenderness Extremity normal to inspection General Extremety ED: Negative for edema or tenderness General Extremity: Negative for edema Neuro Sensorium / Orientation: alert Skin no rashes or lesions noted MDM MDM MDM Narrative Medical decision making narrative: Patient's labs show normal CBC. Electrolytes are overall unremarkable other than mild elevation in the BUN. Liver function tests lipase are normal. Lactic acid is normal. Troponin is negative. CT scan shows increase fecal retention. There is nonspecific ileus. No bowel obstruction. Gallbladder and ducts look normal. I rechecked the patient. She still has very good bowel sounds. She states she is still moving her bowels. Even though her CT shows a nonspecific ileus, she is moving her bowels and has good bowel sounds. I recommend she try a stool softener [id number]. She also complains now that she has been having this pain along with back and hip pains for some time. It limits her activity going out. She has an appointment to have an endoscopy in 1 week. They are going to do a bowel prep then. Her doctor gave her a few hydrocodone back in middle of December. She use these sparingly and they helped quite a bit. I explained that we can try this but she needs to increase fluids and stool softener because this might be the cause of some of the binding that she has. I will get her something for nausea in case that is an issue also. We discussed reasons to return. Lab Data Attestation: I reviewed the patient's lab results. Labs: Laboratory Results - last 24 hr 03/03/22 03/03/22 03/03/22 16:35 16:35 16:35 WBC 7.2 RBC 4.22 Hgb 13.8 Hct 42.0 MCV 99.5 H MCH 32.7 H MCHC 32.9 RDW Std Deviation 46.5 H RDW Coeff of Mark 12.8 Plt Count 286 MPV 9.3 Immature Gran % (Auto) 0.300 Neut % (Auto) 56.1 Lymph % (Auto) 26.1 Beauregard % (Auto) 9.5 Eos % (Auto) 7.4 H Baso % (Auto) 0.6 Absolute Neuts (auto) 4.0 Absolute Lymphs (auto) 1.87 Nucleated RBC % 0 Sodium 138 Potassium 3.6 Chloride 101 Carbon Dioxide 28.0 Anion Gap 9 BUN 22 H Creatinine 0.98 Estim Creat Clear Calc 40.09 Est GFR (MDRD) Af Amer 70 Est GFR (MDRD) Non-Af 58 L BUN/Creatinine Ratio 22.4 H Glucose 100 Lactic Acid 0.5 Calcium 9.5 Total Bilirubin 0.30 AST 14 L ALT 13 Alkaline Phosphatase 65 Troponin I High Sens 17 Total Protein 7.1 Albumin 3.9 Globulin 3.2 Albumin/Globulin Ratio 1.2 Lipase 183 Radiography Diagnostic Testing: Clinical Impression(s) from Imaging Studies Abdomen/Pelvis CT 03/03/22 16:57 IMPRESSION: Nonspecific ileus with diffuse fecal retention in the colon. No evidence for small bowel obstruction or acute appendicitis.. Other findings as above Electronically Signed: García Wells MD at 18:14 EDT , EKG Initial EKG: Comments: EKG done for epigastric pain read by me shows sinus rhythm with frequent PACs. There is some mild LVH changes. Nonspecific ST changes likely due to LVH. These are similar to prior. GA interval, QRS duration and QTc normal. This EKG is similar to 29 April 2021. Discharge Plan Triage Chief Complaint: Chest Pain ED Provider: Sree Price Dx/Rx/DC Orders Clinical Impression: Abdominal pain Instructions: ED Abdominal Pain Unkn Cause Fem Prescriptions: New hydrocodone-acetaminophen 5-325 mg tablet 1 tab PO Q8H PRN (Reason: pain) 3 Days Qty: 9 0RF ondansetron 4 mg tablet,disintegrating 4 mg PO Q8H PRN (Reason: nausea and vomiting) Qty: 10 0RF No Action venlafaxine 150 mg capsule,extended release 24hr 75 mg PO DAILY pantoprazole 40 MG tablet 40 mg PO DAILY Qty: 30 2RF sucralfate [Carafate] 100 mg/mL suspension 10 ml PO BID PRN (Reason: stomach upset) Qty: 200 0RF prednisone 20 mg tablet 20 mg PO DAILY budesonide-formoterol 160-4.5 mcg/actuation Hfa Aerosol Inhaler 2 puff INHALATION BID Prolia 60 mg/mL Syringe 60 mg SUBCUT [id number]-xtydglhelctbz-[id number] [Fioricet] 50-300-40 mg capsule 1 cap PO TID PRN (Reason: pain) Qty: 15 0RF metoprolol succinate 50 mg tablet extended release 24 hr 50 mg PO DAILY Label Comments: TAKE 1 TABLET BY MOUTH ONCE DAILY WITH SUPPER Primary Care Provider: Sergio Bailey Referrals: Sergio Bailey MD [Primary Care Provider] - As soon as possible Activity Restrictions/Additional Instructions: Follow-up with your endoscopy in 1 week. Disposition Disposition: Home, Self Care
[2022-03-03] MEDS: Morphine 4 MG/ML Syringe IV (17:04)
[2022-03-03] MEDS: Ondansetron 4 MG/2 ML Vial IV (17:04)
[2022-03-03 17:14] LABS: Absolute Lymphocyte Count 1.87 X10^3/uL (0.83-4.51); Basophil# 0.04 X10^3/uL; Basophil% 0.6 % (0-1); Eosinophil# 0.53 X10^3/uL; Eosinophils% 7.4 % (0-5); Hemoglobin 13.8 g/dL (12.0-15.0); Lymphocyte # 1.87 X10^3/ul (0.83-4.51); Lymphocyte % 26.1 % (19-41); Mean Corp Hgb Conc 32.9 g/dL (32-36); Mean Corpuscular Hgb 32.7 pg (27.0-32.0); Mean Corpuscular Volume 99.5 fL (81-99); Mean Platelet Vol. 9.3 fl (6.2-12.0); Monocyte# 0.68 X10^3/uL; Monocyte% 9.5 % (0-10); NRBC Flagged by Analyzer 0 % (0-5); Neutrophil # 4.02 X10^3/uL (2.7-7.7); Neutrophil % 56.1 % (47-70); Platelet Count 286 K/mm3 (150-450); RBC Distribution Width CV 12.8 % (11.6-14.6); RBC Distribution Width SD 46.5 fl (35.1-43.9); Red Blood Count 4.22 M/mm3 (4.2-5.4); White Blood Count 7.2 K/mm3 (4.4-11.0)
[2022-03-03 17:38] LABS: Lactic Acid 0.5 mmol/L (0.4-1.9)
[2022-03-03 17:42] LABS: ALB/GLOB Ratio 1.2 RATIO (0.9-2.4); AST(SGOT) 14 U/L (15-37); Alanine Aminotransfer ALT/SGPT 13 U/L (13-56); Albumin, Serum 3.9 g/dL (3.2-5.0); Alkaline Phosphatase 65 U/L (45-117); Anion Gap 9 (5-15); BUN 22 mg/dL (7-18); BUN/Creat Ratio 22.4 RATIO (10-20); Calcium,Total 9.5 mg/dL (8.5-10.1); Chloride 101 mmol/L (98-107); Creatinine, Serum 0.98 mg/dL (0.55-1.02); EST Glomerular Filtration Rate 58 mL/min (>60); Est Glom Filt Rate - Afr Amer 70 mL/min (>60); Estimated Creatinine Clearance 40.09 ml/min; Globulin 3.2 g/dL (2.2-4.2); Glucose 100 mg/dL (74-106); Lipase 183 U/L (73-393); Potassium 3.6 mmol/L (3.5-5.1); Protein, Total 7.1 g/dL (6.4-8.2); Sodium Level 138 mmol/L (136-145); Troponin-I HS 17 pg/mL (3.0-54.0)
[2022-03-03] MEDS: Acetaminophen 500 MG Tablet 1000 MG PO (20:29)
[2022-03-03] MEDS: HYDROcodone Bitartrate/Apap 5/325 Tablet PO (21:42)
== END 2022-03-03 21:47 | disposition home or self-care (01) ==
PROVIDERS: Emergency Provider Emergency Medicine; PCP Family Medicine; Visit Provider Emergency Medicine
DX: R10.13 Epigastric pain (principal); J44.9 Chronic obstructive pulmonary disease, unspecified; K56.7 Ileus, unspecified; Z86.718 Personal history of other venous thrombosis and embolism; Z86.010 Personal history of colon polyps; K21.9 Gastro-esophageal reflux disease without esophagitis; F32.A Depression, unspecified; M54.81 Occipital neuralgia; Z79.899 Other long term (current) drug therapy; R10.11 Right upper quadrant pain; R19.7 Diarrhea, unspecified; K59.00 Constipation, unspecified; R11.2 Nausea with vomiting, unspecified; I49.1 Atrial premature depolarization
CPT/HCPCS: 74177; 80053; 83605; 83690; 84484; 85025; 93005; 96374; 96375; 99285; Q9967; A4216; J2405

== ENCOUNTER 2022-03-07 00:53 | Emergency (ER) | payer MEDICARE, SELFPAY ==
[2022-03-07 00:54] VITALS: BP 160/87; PULSE 93; RESP 18; TEMP 36.7; O2SAT 99
--- NOTE | 2022-03-07 01:58 | EDS_ITS ---
HPI History of Present Illness Chief Complaint: Headache Informant: patient Onset/Context/Timing Onset: Today Context: Sudden Timing: Continuous Quality -Headache: Positive for Similar Prior Headaches Location: Generalized Worsened by: Nothing Relieved by: Nothing Associated Symptoms/Injury Associated Symptoms: Positive for Nausea; Negative for Fever, Vomiting, Sore Throat, Sinus Pressure, Numbness, Tingling, Preceding Aura, Visual Changes, Blurred Vision, Photophobia or Visual Loss Injury - HARVEY: Negative for Direct Trauma Narrative Narrative: Patient presents with a headache that began earlier today. Patient states it began rather suddenly. Patient states it has been constant. Patient states it feels similar to prior headaches she has had in the past. Patient states it started on the right side of her head but is now generalized. Patient states nothing makes it better nothing makes it worse. Patient admits to some nausea but denies any vomiting. Patient denies any visual changes or scotoma. Patient denies any photophobia or phonophobia. [facility] Medical History (Updated 03/07/22 @ 04:[address] Sergio Lackey, DO) NEFTALY positive Back pain Chronic headaches Colonic polyp COPD (chronic obstructive pulmonary disease) DVT (deep venous thrombosis) GERD (gastroesophageal reflux disease) Glaucoma Iron deficiency anemia Major depressive disorder Neoplasm of kidney Occipital neuralgia of right side Osteoarthritis Spondylosis Vitamin D deficiency Home Medications venlafaxine 150 mg capsule,extended release 24 hr 75 mg PO DAILY 01/09/19 [History Last Taken Unknown] pantoprazole 40 mg tablet,delayed release 40 mg PO DAILY #30 tabs 01/14/19 [Rx Last Taken Unknown] sucralfate 100 mg/mL oral suspension (Carafate) 10 ml PO BID PRN stomach upset #200 mL 04/29/21 [Rx Last Taken Unknown] budesonide-formoterol HFA 160 mcg-4.5 mcg/actuation aerosol inhaler 2 puff inhalation BID 05/01/21 [History Last Taken Unknown] mxvhfwiuru-pqizxwkaqysml-yjaaprkv 50 mg-300 mg-40 mg capsule (Fioricet) 1 cap PO TID PRN pain #15 caps 05/01/21 [Rx Last Taken Unknown] denosumab 60 mg/mL subcutaneous syringe (Prolia) 60 mg subcut 05/01/21 [History Last Taken Unknown] prednisone 20 mg tablet 20 mg PO DAILY 10/30/21 [History Last Taken Unknown] hydrocodone-acetaminophen 5-325mg 5mg-325mg 1 tab PO Q8H PRN pain 3 days #9 tabs 03/03/22 [Rx Last Taken Unknown] metoprolol succinate 50 mg tablet,extended release 24 hr 50 mg PO DAILY 03/03/22 [History Last Taken Unknown] ondansetron 4 mg disintegrating tablet 4 mg PO Q8H PRN nausea and vomiting #10 tabs 03/03/22 [Rx Last Taken Unknown] Allergy/AdvReac Type Severity Reaction Status Date / Time cymbalta AdvReac Unknown Uncoded 05/01/21 07:30 Family History Father CAD (coronary artery disease) CABG x 5 Brother CAD (coronary artery disease) age 59 Diabetes Surgical History History of bilateral knee replacement History of left heart catheterization (~2002) History of open reduction and internal fixation (ORIF) procedure History of right hip replacement Social History Smoking Status: Former smoker alcohol intake: current alcohol intake frequency: a few times a week ROS ROS ED Constitutional Constitutional ED: Denies chills or fever(s) Eyes Eyes: Denies blurry vision or change in vision ENT ENT ED: Denies rhinorrhea or sore throat Cardiovascular Cardiovascular: Denies chest pain or palpitations Respiratory/Chest Respiratory/Chest: Denies cough or dyspnea Gastrointestinal Gastrointestinal: Reports nausea; Denies vomiting Genitourinary Genitourinary ED: Denies dysuria or hematuria Musculoskeletal Musculoskeletal: Reports back pain; Denies neck pain Integumentary Denies abscess or rash Neurologic Neurologic: Reports headache(s); Denies weakness Allergic/Immunologic Allergic/Immunologic ED: Denies mouth swelling or urticaria EXAM Physical Exam Const Vital Signs: 03/07/22 00:54 03/07/22 00:54 03/07/22 04:02 Temperature 98.1 F 98.1 F Temperature Source Temporal Temporal Pulse Rate 93 93 88 Respiratory Rate 18 18 18 Blood Pressure 160/87 H 160/87 H 144/71 H Blood Pressure Mean 111 111 95 Pulse Ox 99 99 96 Oxygen Delivery Method Room Air Room Air Room Air Positive well nourished and well developed General Appearance ED: well developed HEENT Reports moist mucous membranes Neck supple and no JVD Resp normal respiratory effort and clear to auscultation bilaterally Cardio regular rate and regular rhythm GI normal to inspection, nondistended, normoactive bowel sounds and non-tender Palpation: soft Extremity normal to inspection General Extremety ED: Negative for edema or tenderness General Extremity: Negative for edema Neuro oriented x3, CN's II-XII intact bilaterally and no sensory deficits noted Sensorium / Orientation: alert Motor Exam: strength 5/5 throughout Psych mental status grossly normal Skin no rashes or lesions noted MDM MDM MDM Narrative Medical decision making narrative: Patient was given IV fluids, Reglan, and Benadryl initially. CT scan of the brain was obtained. There is no acute intracranial abnormality. There are chronic changes noted. This was interpreted by the radiologist and reviewed by myself. Patient had minimal relief with the Reglan and Benadryl. Patient was given a dose of Imitrex. Patient states it is starting to improve. Patient was given a dose of morphine. Patient feels better after this and wants to go home. Patient was instructed to rest in a dark quiet room. Patient was instructed to follow-up with her primary care physician in 3 to 5 days. Patient understood and was agreeable with the plan. All questions were answered. Radiography Diagnostic Testing: Clinical Impression(s) from Imaging Studies Brain CT 03/07/22 02:01 IMPRESSION: Chronic changes as described. No acute intracranial hemorrhage or space-occupying lesion. Electronically Signed: Kellee Granger MD at 3:11 EDT , Discharge Plan Triage Chief Complaint: Headache ED Provider: Sergio Lackey Dx/Rx/DC Orders Clinical Impression: Headache, Hypertension Instructions: ED Headache Unspecified Prescriptions: No Action venlafaxine 150 mg capsule,extended release 24hr 75 mg PO DAILY pantoprazole 40 MG tablet 40 mg PO DAILY Qty: 30 2RF sucralfate [Carafate] 100 mg/mL suspension 10 ml PO BID PRN (Reason: stomach upset) Qty: 200 0RF prednisone 20 mg tablet 20 mg PO DAILY budesonide-formoterol 160-4.5 mcg/actuation Hfa Aerosol Inhaler 2 puff INHALATION BID Prolia 60 mg/mL Syringe 60 mg SUBCUT yggozxmmzs-mksfctsbqlkto-hpuk [Fioricet] 50-300-40 mg capsule 1 cap PO TID PRN (Reason: pain) Qty: 15 0RF metoprolol succinate 50 mg tablet extended release 24 hr 50 mg PO DAILY Label Comments: TAKE 1 TABLET BY MOUTH ONCE DAILY WITH SUPPER hydrocodone-acetaminophen 5-325 mg tablet 1 tab PO Q8H PRN (Reason: pain) 3 Days Qty: 9 0RF ondansetron 4 mg tablet,disintegrating 4 mg PO Q8H PRN (Reason: nausea and vomiting) Qty: 10 0RF Primary Care Provider: Sergio Bailey Referrals: Sergio Bailey MD [Primary Care Provider] - 3-5 Days Disposition Disposition: Home, Self Care
--- NOTE | 2022-03-07 02:01 | CT_ITS ---
STUDY: CT BRAIN WITHOUT CONTRAST REASON FOR EXAM: Female, 81 years old. Headache RADIATION DOSAGE (If Supplied By Facility): CTDIvol = ( 44.99 ) mGy, DLP = ( 829.85 ) mGycm TECHNIQUE: Transaxial CT imaging of the brain was performed without administration of intravenous contrast material. Individualized dose optimization techniques were used for this CT. COMPARISON: 05/01/2021. FINDINGS: Normal soft tissue structures. Normal calvarium. There is mild to moderate cerebral atrophy with widening of the extra-axial spaces and ventricular dilatation. There are areas of decreased attenuation within the white matter tracts of the supratentorial brain, consistent with microvascular disease changes. Normal basal ganglia and thalami. Normal brainstem. Stable dystrophic calcification within the left basal ganglia. Otherwise unremarkable bilateral basal ganglia. There is no intracranial hemorrhage. There are no findings of an acute ischemic infarction. Normal visualized paranasal sinuses. CT/Brain/Head without Contrast IMPRESSION: Chronic changes as described. No acute intracranial hemorrhage or space-occupying lesion. Electronically Signed: Kellee Granger MD at 3:11 EDT ,
[2022-03-07] MEDS: 0.9% Normal Saline 1,000 ML 999 ML IV (02:13)
[2022-03-07] MEDS: DiphenhydrAMINE 50 MG/ML Syringe 25 MG IV (02:13)
[2022-03-07] MEDS: Metoclopramide 10 MG/2 ML Vial IV (02:15)
[2022-03-07] MEDS: SUMAtriptan 6 MG/0.5 ML Vial SC (03:20)
[2022-03-07] MEDS: Morphine 4 MG/ML Syringe IV (03:58)
[2022-03-07 04:02] VITALS: BP 144/71; PULSE 88; RESP 18; O2SAT 96
== END 2022-03-07 04:22 | disposition home or self-care (01) ==
PROVIDERS: Emergency Provider Emergency Medicine; PCP Family Medicine; Visit Provider Emergency Medicine
DX: R51.9 Headache, unspecified (principal); J44.9 Chronic obstructive pulmonary disease, unspecified; I10 Essential (primary) hypertension; Z87.891 Personal history of nicotine dependence; G89.4 Chronic pain syndrome; K21.9 Gastro-esophageal reflux disease without esophagitis; H40.9 Unspecified glaucoma; D50.9 Iron deficiency anemia, unspecified; F32.A Depression, unspecified; M19.90 Unspecified osteoarthritis, unspecified site; E55.9 Vitamin D deficiency, unspecified; Z79.899 Other long term (current) drug therapy
CPT/HCPCS: 70450; 96361; 96372; 96374; 96375; 99282; J7030; A4216; J3030

== ENCOUNTER 2022-04-21 15:48 | Emergency (ER) | payer MEDICARE, SELFPAY ==
[2022-04-21 15:49] VITALS: BP 146/68; PULSE 72; RESP 22; TEMP 36.2; O2SAT 98; BMI 20.1
--- NOTE | 2022-04-21 16:14 | RAD_ITS ---
STUDY: X-RAY - LUMBAR SPINE REASON FOR EXAM: Female, 81 years old. Injury/Pain TECHNIQUE: 3 view(s) of the lumbar spine were obtained. COMPARISON: CT of the abdomen and pelvis 03/03/2022 FINDINGS: Normal lumbar lordosis. There is severe dextro scoliosis. There is a normal alignment of the vertebrae. There is multilevel disc space narrowing and endplate spurring.. There is multilevel wedging of superior endplates most severe at T12 without definitive evidence for acute fracture line The soft tissue structures are unremarkable. RAD/Lumbar Spine 2 or 3 Views IMPRESSION: Severe scoliosis and degenerative change. Multiple old compression deformities most severe at T12 No definitive evidence for acute fracture. MRI would be helpful for further assessment if clinically warranted Electronically Signed: García Wells MD at 16:52 EDT ,
--- NOTE | 2022-04-21 16:15 | EDS_ITS ---
HPI History of Present Illness Chief Complaint: Back Informant: patient and family Narrative Narrative: Patient is an 81-year-old female presenting with worsening low back pain. She states about 3 days ago she started having increased pain in the small of her back that started to radiate to her right hip. She does have a history of a prior right total hip arthroplasty. She has chronic pain in her left back that radiates to her left leg which she follows with pain management with Dr. De La Paz. Patient takes Erie twice a day at baseline. She notes her Erie does help the pain however the past few days she has severe pain when she is sitting and has to use a wheelchair to leave the house. She has comfort when she lays flat. She denies any falls or injuries. Patient was seen by pain management earlier today who examined her. She had outpatient x-ray for her hip and lumbar spine ordered but they have not been completed yet. Given her amount of pain they recommended she go to the emergency room for further pain management and evaluation. Patient denies any bowel or bladder symptoms. She notes she is having a hard time getting to the bathroom because of her pain but when she is there she has no urinary symptoms. Denies any fever or chills. Denies any numbness or tingling in her lower extremities. No other complaints at this time. She is not on any blood thinners. Patient does note that she had her COVID and flu vaccine a couple days ago and is not sure if this is related. [facility] Medical History (Updated 04/21/22 @ 19:[address] Hailee De Leon, DO) NEFTALY positive Back pain Chronic headaches Colonic polyp COPD (chronic obstructive pulmonary disease) DVT (deep venous thrombosis) GERD (gastroesophageal reflux disease) Glaucoma Iron deficiency anemia Major depressive disorder Neoplasm of kidney Occipital neuralgia of right side Osteoarthritis Spondylosis Vitamin D deficiency Home Medications venlafaxine 150 mg capsule,extended release 24 hr 75 mg PO DAILY 01/09/19 [History Last Taken Unknown] pantoprazole 40 mg tablet,delayed release 40 mg PO DAILY #30 tabs 01/14/19 [Rx Last Taken Unknown] sucralfate 100 mg/mL oral suspension (Carafate) 10 ml PO BID PRN stomach upset #200 mL 04/29/21 [Rx Last Taken Unknown] budesonide-formoterol HFA 160 mcg-4.5 mcg/actuation aerosol inhaler 2 puff inhalation BID 05/01/21 [History Last Taken Unknown] mgacavoxec-cxltxvbbvqlal-wuxnkpeo 50 mg-300 mg-40 mg capsule (Fioricet) 1 cap PO TID PRN pain #15 caps 05/01/21 [Rx Last Taken Unknown] denosumab 60 mg/mL subcutaneous syringe (Prolia) 60 mg subcut 05/01/21 [History Last Taken Unknown] prednisone 20 mg tablet 20 mg PO DAILY 05/01/21 [History Last Taken Unknown] hydrocodone-acetaminophen 5-325mg 5mg-325mg 1 tab PO Q8H PRN pain 3 days #9 tabs 03/03/22 [Rx Last Taken Unknown] metoprolol succinate 50 mg tablet,extended release 24 hr 50 mg PO DAILY 03/03/22 [History Last Taken Unknown] ondansetron 4 mg disintegrating tablet 4 mg PO Q8H PRN nausea and vomiting #10 tabs 03/03/22 [Rx Last Taken Unknown] hydrocodone-acetaminophen 5-325mg 5mg-325mg 1 tab PO Q6H PRN pain 3 days #12 tabs 04/21/22 [Rx Last Taken Unknown] prednisone 20 mg tablet 40 mg PO DAILY #8 tabs 04/21/22 [Rx Last Taken Unknown] Allergy/AdvReac Type Severity Reaction Status Date / Time duloxetine [From Cymbalta] AdvReac NEEDS Verified 04/21/22 15:52 FOLLOW-UP Family History Father CAD (coronary artery disease) CABG x 5 Brother CAD (coronary artery disease) age 59 Diabetes Surgical History History of bilateral knee replacement History of left heart catheterization (~2002) History of open reduction and internal fixation (ORIF) procedure History of right hip replacement Social History Smoking Status: Former smoker alcohol intake: current alcohol intake frequency: a few times a week ROS ROS ED Constitutional Constitutional ED: Denies chills or fever(s) Eyes Eyes: Denies change in vision ENT ENT ED: Denies rhinorrhea Cardiovascular Cardiovascular: Denies chest pain Respiratory/Chest Respiratory/Chest: Denies dyspnea or dyspnea on exertion Gastrointestinal Gastrointestinal: Denies abdominal pain, constipation, diarrhea, nausea or vomiting Genitourinary Genitourinary ED: Denies dysuria or hematuria Musculoskeletal Musculoskeletal: Reports back pain; Denies arthralgias, myalgias or neck pain Integumentary Denies rash Neurologic Neurologic: Denies headache(s), paresthesias or weakness Psychiatric Psychiatric: Denies anxiety Hematologic/Lymphatic Hematologic/Lymphatic: Denies easy bleeding or easy bruising EXAM Physical Exam Const Vital Signs: 04/21/22 15:49 04/21/22 17:50 04/21/22 19:27 Temperature 97.2 F L Temperature Source Temporal Pulse Rate 72 71 73 Respiratory Rate 22 H 18 18 Blood Pressure 146/68 H 151/65 H 166/71 H Blood Pressure Mean 94 93 102 Pulse Ox 98 93 93 Oxygen Delivery Method Room Air Room Air Room Air Positive well nourished and well developed General Appearance ED: well developed and NAD HEENT Reports moist mucous membranes Eyes PERRL and EOMs intact bilaterally Neck supple and no JVD Resp normal respiratory effort and clear to auscultation bilaterally Cardio regular rate, regular rhythm and no murmurs GI normal to inspection, nondistended, normoactive bowel sounds, soft to palpation and non-tender Back/Spine normal to inspection and no thoracic nor lumbar tenderness Back/Spine Narrative: Patient has some tenderness palpation of bilateral gluteal Lumbar Spine / Lower Back: straight leg raise negative bilaterally Extremity normal to inspection Extremity Narrative: Normal range of motion of bilateral lower extremities. No pain with range of motion of bilateral hips. No rotational deformities. Neuro oriented x3 and no sensory deficits noted Neuro Narrative: 5/5 strength with plantar dorsiflexion of the lower extremities. Sensorium / Orientation: alert Motor Exam: strength 5/5 throughout Skin no rashes or lesions noted and no wounds MDM MDM MDM Narrative Medical decision making narrative: Patient is evaluated for worsening low back pain as well as right hip pain. She has a extensive history of rheumatoid arthritis, scoliosis, degenerative changes of her back as well as bilateral hip prosthesis. Patient is given IV morphine initially with no improvement of her pain. She is not have midline tenderness. She does not have signs or symptoms concerning for cauda equina syndrome. She is afebrile. Patient is then given IV Dilaudid. I eventually spoke to patient's pain medicine group with the doctor on-call, Dr. Hernandez, who will place a phone encounter. Reviewed patient's x-ray results with him. He is comfortable with me prescribing patient a short course of increase of her Erie as well as a burst of prednisone. Patient would like to go home and does not want to come in for further pain control. She feels safe going home. Radiography Diagnostic Testing: Clinical Impression(s) from Imaging Studies Lumbar Spine X-Ray 04/21/22 16:14 IMPRESSION: Severe scoliosis and degenerative change. Multiple old compression deformities most severe at T12 No definitive evidence for acute fracture. MRI would be helpful for further assessment if clinically warranted Electronically Signed: García Wells MD at 16:52 EDT , Hip/Pelvis X-Ray 04/21/22 16:22 IMPRESSION: Stable appearance to bilateral hip prostheses. No evidence for acute pelvic or right hip fracture. Electronically Signed: García Wells MD at 16:50 EDT , Discharge Plan Triage Chief Complaint: Back ED Provider: Hailee De Leon Dx/Rx/DC Orders Clinical Impression: Acute exacerbation of chronic low back pain, Acute pain of right hip Instructions: ED Back Pain (Acute or Chronic) Prescriptions: New hydrocodone-acetaminophen 5-325 mg tablet 1 tab PO Q6H PRN (Reason: pain) 3 Days Qty: 12 0RF prednisone 20 mg tablet 40 mg PO DAILY Qty: 8 0RF No Action venlafaxine 150 mg capsule,extended release 24hr 75 mg PO DAILY pantoprazole 40 MG tablet 40 mg PO DAILY Qty: 30 2RF sucralfate [Carafate] 100 mg/mL suspension 10 ml PO BID PRN (Reason: stomach upset) Qty: 200 0RF prednisone 20 mg tablet 20 mg PO DAILY budesonide-formoterol 160-4.5 mcg/actuation Hfa Aerosol Inhaler 2 puff INHALATION BID Prolia 60 mg/mL Syringe 60 mg SUBCUT uqkjvswczs-bsgletaymqzwu-ruiz [Fioricet] 50-300-40 mg capsule 1 cap PO TID PRN (Reason: pain) Qty: 15 0RF metoprolol succinate 50 mg tablet extended release 24 hr 50 mg PO DAILY Label Comments: TAKE 1 TABLET BY MOUTH ONCE DAILY WITH SUPPER hydrocodone-acetaminophen 5-325 mg tablet 1 tab PO Q8H PRN (Reason: pain) 3 Days Qty: 9 0RF ondansetron 4 mg tablet,disintegrating 4 mg PO Q8H PRN (Reason: nausea and vomiting) Qty: 10 0RF Primary Care Provider: Sergio Bailey Referrals: Sergio Bailey MD [Primary Care Provider] - Activity Restrictions/Additional Instructions: Please follow-up with your pain management doctor tomorrow (call the office). I spoke with Dr. Mary durbin. You have been given an extra prescription for 3-day supply of Erie to take every 6 hours as needed for pain. Disposition Disposition: Home, Self Care Discharge Date/Time: 04/21/22 19:46
--- NOTE | 2022-04-21 16:22 | RAD_ITS ---
STUDY: X-RAY - PELVIS AND RIGHT HIP REASON FOR EXAM: Female, 81 years old. Injury/Pain TECHNIQUE: 4 views of the pelvis and hip. COMPARISON: None. FINDINGS: There is a non-specific bowel gas pattern. Normal visualized soft tissue structures. Normal bilateral iliac wings, sacroiliac joints and visualized sacrum. Normal bilateral superior and inferior pubic rami. Normal pubic symphysis. Normal bilateral ischial tuberosities. Bilateral hip prostheses are noted in anatomic alignment and position.. No evidence for acute hip or pelvic fracture. No definitive radiographic evidence for loosening. RAD/HIP, UNI W/ Pelvis 2-3 Views IMPRESSION: Stable appearance to bilateral hip prostheses. No evidence for acute pelvic or right hip fracture. Electronically Signed: García Wells MD at 16:50 EDT ,
[2022-04-21] MEDS: Morphine 4 MG/ML Syringe IV (16:36)
[2022-04-21] MEDS: HYDROmorphone 0.5 MG/0.5 ML SYRINGE IV (17:49)
[2022-04-21 17:50] VITALS: BP 151/65; PULSE 71; RESP 18; O2SAT 93
[2022-04-21] MEDS: HYDROcodone Bitartrate/Apap 5/325 Tablet PO (19:24)
[2022-04-21] MEDS: Ketorolac 15 MG/ML Vial IV (19:24)
[2022-04-21] MEDS: predniSONE 20 MG Tablet 40 MG PO (19:24)
[2022-04-21 19:27] VITALS: BP 166/71; PULSE 73; RESP 18; O2SAT 93
== END 2022-04-21 19:46 | disposition home or self-care (01) ==
PROVIDERS: Emergency Provider Emergency Medicine; PCP Family Medicine; Visit Provider Emergency Medicine
DX: M54.50 Low back pain, unspecified (principal); J44.9 Chronic obstructive pulmonary disease, unspecified; G89.29 Other chronic pain; M25.551 Pain in right hip; Z96.643 Presence of artificial hip joint, bilateral; Z79.891 Long term (current) use of opiate analgesic; Z87.891 Personal history of nicotine dependence
CPT/HCPCS: 72100; 73502; 96374; 96375; 99284; A4216

== ENCOUNTER → 2022-07-06 | Outpatient (CLI) | payer MEDICARE, SELFPAY ==
[2022-07-06 12:44] LABS: Absolute Lymphocyte Count 2.47 X10^3/uL (0.83-4.51); Absolute Neutrophil Count 4.3 X10^3/uL (2.0-7.7); Basophil# 0.04 X10^3/uL; Basophil% 0.5 % (0-1); Eosinophils% 2.5 % (0-5); Hematocrit 41.2 % (37-47); Hemoglobin 13.6 g/dL (12.0-15.0); Lymphocyte # 2.47 X10^3/ul (0.83-4.51); Lymphocyte % 31.5 % (19-41); Mean Corpuscular Hgb 32.3 pg (27.0-32.0); Mean Corpuscular Volume 97.9 fL (81-99); Mean Platelet Vol. 9.6 fl (6.2-12.0); Monocyte# 0.83 X10^3/uL; Monocyte% 10.6 % (0-10); NRBC Flagged by Analyzer 0 % (0-5); Neutrophil # 4.28 X10^3/uL (2.7-7.7); Neutrophil % 54.5 % (47-70); Platelet Count 289 K/mm3 (150-450); RBC Distribution Width CV 12.7 % (11.6-14.6); RBC Distribution Width SD 45.1 fl (35.1-43.9); Red Blood Count 4.21 M/mm3 (4.2-5.4); White Blood Count 7.9 K/mm3 (4.4-11.0)
[2022-07-06 13:10] LABS: Vitamin B12 448 pg/mL (211-911)
[2022-07-06 13:37] LABS: ALB/GLOB Ratio 1.4 RATIO (0.9-2.4); AST(SGOT) 15 U/L (15-37); Alanine Aminotransfer ALT/SGPT 11 U/L (13-56); Albumin, Serum 3.8 g/dL (3.2-5.0); Alkaline Phosphatase 70 U/L (45-117); Anion Gap 8 (5-15); BUN 15 mg/dL (7-18); BUN/Creat Ratio 16.4 RATIO (10-20); Calcium,Total 9.6 mg/dL (8.5-10.1); Chloride 103 mmol/L (98-107); Creatinine, Serum 0.92 mg/dL (0.55-1.02); EST Glomerular Filtration Rate 63 mL/min (>60); Est Glom Filt Rate - Afr Amer 76 mL/min (>60); Ferritin 85 ng/mL (8-252); Globulin 2.7 g/dL (2.2-4.2); Glucose 108 mg/dL (74-106); Magnesium 1.8 mg/dL (1.6-2.6); Potassium 3.3 mmol/L (3.5-5.1); Protein, Total 6.5 g/dL (6.4-8.2); Sodium Level 138 mmol/L (136-145); Thyroid Stim Hormone (TSH) 1.51 uIU/mL (0.358-3.74)
== END | disposition home or self-care (01) ==
LOC: MFPLAB 10:30
PROVIDERS: PCP Family Medicine; Visit Provider Family Medicine
DX: I10 Essential (primary) hypertension (principal); J44.9 Chronic obstructive pulmonary disease, unspecified; E53.8 Deficiency of other specified B group vitamins; D50.9 Iron deficiency anemia, unspecified
CPT/HCPCS: 36415; 80053; 82607; 82728; 82746; 83735; 84443; 85025

== ENCOUNTER → 2022-07-13 | Outpatient (CLI) | payer MEDICARE, SELFPAY ==
[2022-07-13 17:52] LABS: Bacteria 0 SEEN /hpf (None Seen); Mucous, Urine 0 SEEN /hpf (<or=2+); Red Blood Cells-Urine 0 SEEN /hpf (0-5); Squamous Epithelial Cells - UA 0 SEEN /hpf (5-10); White Blood Cells 0 SEEN /hpf (0-5)
[2022-07-13 18:02] LABS: Color, Urine Straw (Yellow); Glucose, Dipstick Normal (Normal); Ketone-Dipstick Negative (Negative); Leukocyte Esterase-Dipstick Negative /ul (Negative); Nitrite-Dipstick Negative (Negative); Occult Blood-Urine 10 /ul (Negative); Protein-Dipstick 30 mg/dl (Negative); Specific Gravity, Urine 1.015 (1.002-1.030); Urine Bilirubin Dipstick Negative (Negative); Urine Clarity Clear (Clear); Urine Urobilinogen Normal (Normal)
== END | disposition home or self-care (01) ==
PROVIDERS: PCP Family Medicine; Visit Provider Family Medicine
DX: R39.15 Urgency of urination (principal)
CPT/HCPCS: 81001; 87086; 87088

== ENCOUNTER → 2022-08-12 | Outpatient (CLI) | payer MEDICARE, SELFPAY ==
[2022-08-12 17:46] LABS: Absolute Lymphocyte Count 1.85 X10^3/uL (0.83-4.51); Absolute Neutrophil Count 3.3 X10^3/uL (2.0-7.7); Basophil# 0.04 X10^3/uL; Basophil% 0.6 % (0-1); Eosinophil# 0.39 X10^3/uL; Eosinophils% 6.3 % (0-5); Hematocrit 40.5 % (37-47); Hemoglobin 13.2 g/dL (12.0-15.0); Lymphocyte # 1.85 X10^3/ul (0.83-4.51); Lymphocyte % 29.8 % (19-41); Mean Corp Hgb Conc 32.6 g/dL (32-36); Mean Corpuscular Hgb 30.9 pg (27.0-32.0); Mean Corpuscular Volume 94.8 fL (81-99); Mean Platelet Vol. 9.6 fl (6.2-12.0); Monocyte# 0.62 X10^3/uL; NRBC Flagged by Analyzer 0 % (0-5); Neutrophil # 3.29 X10^3/uL (2.7-7.7); Platelet Count 257 K/mm3 (150-450); RBC Distribution Width CV 12.2 % (11.6-14.6); RBC Distribution Width SD 42.5 fl (35.1-43.9); Red Blood Count 4.27 M/mm3 (4.2-5.4); White Blood Count 6.2 K/mm3 (4.4-11.0)
[2022-08-12 18:41] LABS: Vitamin B12 1178 pg/mL (211-911)
[2022-08-12 18:54] LABS: ALB/GLOB Ratio 1.3 RATIO (0.9-2.4); AST(SGOT) 19 U/L (15-37); Alanine Aminotransfer ALT/SGPT 14 U/L (13-56); Albumin, Serum 3.9 g/dL (3.2-5.0); Alkaline Phosphatase 75 U/L (45-117); Anion Gap 8 (5-15); BUN 15 mg/dL (7-18); BUN/Creat Ratio 17.9 RATIO (10-20); Calcium,Total 9.3 mg/dL (8.5-10.1); Chloride 101 mmol/L (98-107); Creatinine, Serum 0.84 mg/dL (0.55-1.02); EST Glomerular Filtration Rate 69 mL/min (>60); Est Glom Filt Rate - Afr Amer 83 mL/min (>60); Ferritin 105 ng/mL (8-252); Glucose 102 mg/dL (74-106); Potassium 3.9 mmol/L (3.5-5.1); Protein, Total 6.9 g/dL (6.4-8.2); Sodium Level 136 mmol/L (136-145)
== END | disposition home or self-care (01) ==
LOC: MFPLAB 16:47
PROVIDERS: PCP Family Medicine; Referring Provider Family Medicine; Visit Provider Family Medicine
DX: E53.8 Deficiency of other specified B group vitamins (principal); I10 Essential (primary) hypertension
CPT/HCPCS: 36415; 80053; 82607; 82728; 82746; 85025

== ENCOUNTER → 2022-08-25 | Outpatient (CLI) | payer MEDICARE, SELFPAY ==
[2022-08-25 18:00] LABS: Bacteria 0 SEEN /hpf (None Seen); Mucous, Urine 0 SEEN /hpf (<or=2+); Squamous Epithelial Cells - UA 0 SEEN /hpf (5-10); White Blood Cells 0 SEEN /hpf (0-5)
[2022-08-25 18:07] LABS: Color, Urine Yellow (Yellow); Glucose, Dipstick Normal (Normal); Ketone-Dipstick Negative (Negative); Leukocyte Esterase-Dipstick Negative /ul (Negative); Nitrite-Dipstick Negative (Negative); Occult Blood-Urine 10 /ul (Negative); Protein-Dipstick Negative (Negative); Urine Bilirubin Dipstick Negative (Negative); Urine Clarity Clear (Clear); Urine Urobilinogen Normal (Normal)
[2022-08-25 18:21] LABS: Red Blood Cells-Urine 0-5 SEEN /hpf (0-5)
== END | disposition home or self-care (01) ==
PROVIDERS: PCP Family Medicine; Visit Provider Family Medicine
DX: R35.0 Frequency of micturition (principal)
CPT/HCPCS: 81001; 87086

== ENCOUNTER → 2022-10-18 | Outpatient (CLI) | payer MEDICARE, SELFPAY ==
[2022-10-18 12:46] LABS: Hematocrit 39.2 % (37-47); Hemoglobin 12.7 g/dL (12.0-15.0); Mean Corp Hgb Conc 32.4 g/dL (32-36); Mean Corpuscular Hgb 30.7 pg (27.0-32.0); Mean Corpuscular Volume 94.7 fL (81-99); Mean Platelet Vol. 9.4 fl (6.2-12.0); Platelet Count 277 K/mm3 (150-450); RBC Distribution Width CV 12.2 % (11.6-14.6); RBC Distribution Width SD 42.6 fl (35.1-43.9); Red Blood Count 4.14 M/mm3 (4.2-5.4); White Blood Count 5.3 K/mm3 (4.4-11.0)
== END | disposition home or self-care (01) ==
LOC: MTLAB 10:12
PROVIDERS: PCP Family Medicine; Referring Provider Urology; Visit Provider Urology
DX: N39.0 Urinary tract infection, site not specified (principal)
CPT/HCPCS: 36415; 85027

== ENCOUNTER → 2022-10-26 | Outpatient (CLI) | payer MEDICARE, SELFPAY ==
--- NOTE | 2022-10-26 12:39 | US_ITS ---
INDICATION: UTI EXAMINATION: Ultrasound US Kidney(s) complete (eg, kidneys and bladder) TECHNIQUE: Salcedo scale and color doppler images were obtained of the kidneys. COMPARISON: None. FINDINGS: RIGHT KIDNEY: 9.4 x 4.7 x 3.5 cm. Cortical thickness 1.04 cm.. There is no hydronephrosis. No shadowing calculus, focal lesion or perinephric collection is demonstrated. LEFT KIDNEY: 8.2 x 3.9 x 3.5 cm. Cortical thickness 0.93 cm.. There is no hydronephrosis. No shadowing calculus. Simple cyst upper pole left kidney 0.79 x 0.61 x 0.46 cm. 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 URINARY BLADDER: No acute abnormality. Bladder is nondistended limiting evaluation. Bladder wall thickness of the nondistended bladder 0.82 cm likely due to bladder being almost completely empty. US/Kidney and Bladder IMPRESSION: Borderline atrophy of the left kidney. This could be due to scarring and/or renal vascular disease. Right kidney normal. Nondistended urinary bladder limiting evaluation. Electronically Signed: Uche Kerr MD, MARY at 19:52 EDT Reading Location ID and State: [facility] / [place] Tel , Service support ,
== END | disposition home or self-care (01) ==
PROVIDERS: PCP Family Medicine; Referring Provider Urology; Visit Provider Urology
DX: R30.0 Dysuria (principal); N39.0 Urinary tract infection, site not specified
CPT/HCPCS: 76770

== ENCOUNTER 2023-01-25 15:36 | Observation (INO) | payer MEDICARE, SELFPAY ==
[2023-01-25] VITALS (7 sets, daily range): BP systolic 142–159; BP diastolic 78–88; PULSE 77–83; RESP 16–18; TEMP 36.6–36.7; O2SAT 94–96; BMI 18.0; BMI 18.7
--- NOTE | 2023-01-25 15:53 | ED.VIS.CHEST ---
HPI History of Present Illness Chief Complaint: Chest Pain [facility] Medical History (Updated 01/25/23 @ 21:[address] Jean Morales DO) NEFTALY positive Back pain Chronic headaches Colonic polyp COPD (chronic obstructive pulmonary disease) DVT (deep venous thrombosis) GERD (gastroesophageal reflux disease) Glaucoma Iron deficiency anemia Major depressive disorder Neoplasm of kidney Occipital neuralgia of right side Osteoarthritis Spondylosis Vitamin D deficiency Home Medications venlafaxine 150 mg capsule,extended release 24 hr 75 mg PO DAILY 01/09/19 [History Last Taken Unknown] budesonide-formoterol HFA 160 mcg-4.5 mcg/actuation aerosol inhaler 2 puff inhalation BID 05/01/21 [History Last Taken Unknown] metoprolol succinate 50 mg tablet,extended release 24 hr 50 mg PO DAILY 03/03/22 [History Last Taken Unknown] ondansetron 4 mg disintegrating tablet 4 mg PO Q8H PRN nausea and vomiting #10 tabs 03/03/22 [Rx Last Taken Unknown] buprenorphine 7.5 mcg/hour weekly transdermal patch 1 patch transdermal Q7D 01/25/23 [History Last Taken Unknown] Allergy/AdvReac Type Severity Reaction Status Date / Time duloxetine [From Cymbalta] AdvReac NEEDS Verified 01/25/23 15:37 FOLLOW-UP Family History Father CAD (coronary artery disease) CABG x 5 Brother CAD (coronary artery disease) age 59 Diabetes Surgical History History of bilateral knee replacement History of left heart catheterization (~2002) History of open reduction and internal fixation (ORIF) procedure History of right hip replacement Social History Smoking Status: Former smoker alcohol intake: current alcohol intake frequency: a few times a week EXAM Physical Exam Const Vital Signs: 01/25/23 15:38 01/25/23 15:50 01/25/23 19:55 Temperature 98 F Temperature Source Temporal Pulse Rate 83 77 80 Respiratory Rate 16 17 18 Blood Pressure 144/80 H 151/82 H 159/88 H Blood Pressure Mean 101 105 111 Pulse Ox 96 Oxygen Delivery Method Room Air 01/25/23 20:23 Temperature Temperature Source Pulse Rate Respiratory Rate Blood Pressure Blood Pressure Mean Pulse Ox Oxygen Delivery Method Room Air Heart Score History: Slightly/Non-Suspicious ECG: Normal (baseline) Age: >/= 65 years Risk Factors: 1 or 2 Risk Factors Troponin: </= Normal Limit Score: 3 MDM MDM MDM Narrative Medical decision making narrative: HISTORY OF PRESENT ILLNESS: 82-year-old female here with chest pain. She states this began yesterday around noon. States it is not exertional it is not pressure-like just feels sharp located over the left chest. Her daughter states patient did take approximately 6 Excedrin, 1 ibuprofen pill within a 12-hour period yesterday. The patient denies recent surgery in the last 4 weeks or immobilization in the last 3 days, denies previous diagnosis of PE, hemoptysis, unilateral leg swelling or malignancy with treatment the last 6 months. No estrogen use noted. Patient denies sudden onset of pain, no tearing sensation, no migratory symptoms, no new numbness, weakness or loss of sensation. Patient denies family history or personal history of Marfan syndrome or Reny-Danlos. Patient denies smoking. Denies estrogen use. Denies family personal history of heart attacks. REVIEW OF SYSTEMS: Pertinent positives: Chest pain Pertinent negatives: Shortness of breath, abdominal pain, vomiting, bleeding diathesis PHYSICAL EXAM: Nursing triage notes reviewed, Vital signs reviewed Constitutional: please see mdm HENT: MMM Eyes: Pupils equal round and reactive to light, Extraocular muscles intact Neck: No stridor, no JVD, full neck ROM Lungs: Clear to auscultation, No wheezing or rales. No increased work of breathing, no conversational dyspnea, no accessory muscle use, no nasal flaring. No respiratory distress noted Heart: Regular rate and rhythm, No murmurs, No rubs and No gallops, 2+ distal pulses (radial, femoral, posterior tibial) in all extremities Abdomen: Soft, there is no tenderness, rigidity, rebound or guarding, no obvious peritoneal signs, no palpable pulsatile abdominal masses, no auscultated abdominal bruit : No CVAT Extremities: No edema Neuro: No focal neurological deficits, cranial nerves II through XII intact, 5/5 strength in all extremities. Intact sensation to light touch in all extremities, 2+ reflexes bilateral patella tendons. Normal gait. No ataxia. Skin: No rash or lesions noted MEDICAL DECISION MAKING: Chief Complaint: Chest pain External records reviewed: EKG reviewed from March 2020, Last echocardiogram 2018 had ejection fraction 55% Factors affecting care: COPD, GERD Social determinants of health: Elderly History obtained from others: The patient's family Consults: none [] ALL IMAGES (IF OBTAINED) HAVE BEEN PERSONALLY REVIEWED AND INTERPRETED BY MYSELF. EKG with normal sinus rhythm, normal axis, normal intervals, noted ST depressions laterally which are similar to prior EKG on 03/03/2022 MDM Narrative: Patient was hemodynamically stable, afebrile, nontoxic-appearing. Exam without focal cardiopulmonary maladies. There is no crepitus to the patient's neck. Pulses were symmetric. No focal deficits. Concerned about the following differential: I considered the following differential diagnosis: PE less likely given low risk Wells score. Aortic dissection is thought to be less likely given no sudden ripping or tearing pain, migratory pain, palpable pulse inequalities, no focal neurologic deficits concurrent with chest pain. Chance of dissection less than 07/1999. Pericarditis less likely given no pathognomonic EKG changes (no diffuse ST elevations, [place] depressions). GI etiology (i.e. Boerhaave syndrome) less likely given no chest or neck crepitus, no vomiting or forced retching. I obtained a broad lab and imaging work-up to further elucidate the etiology of the patient's complaints. Labs and images were remarkable for no evidence of acute myocardial ischemia, no evidence of acute STEMI. Patient had 1 episode of chest pain here*repeat EKG which was also nonischemic. Patient is 82 years old had an elevated heart score and as such admitted for serial biomarkers and confirmatory testing. Discussed this with the hospitalist. The patient and/or family, caregivers express understanding. The patient and/or family, caregivers agrees with the plan. Shared decision making: I will have a discussion with the patient and or visitors regarding risk/benefits of further testing or admission. They will be made aware of of the risk/benefits inherent in this decision they will be given the opportunity to voice understanding. Total critical care time today provided was at least 0 minutes. This excludes separately billable procedures. Critical care time (if documented) is secondary to the patient having high probability of clinically significant/life threatening deterioration in the patient's condition which required my urgent intervention. Impression: Chest pain, elevated heart score Lab Data Labs: Laboratory Results - last 24 hr 01/25/23 01/25/23 15:40 18:00 WBC 6.2 RBC 3.90 L Hgb 12.2 Hct 36.3 L MCV 93.1 MCH 31.3 MCHC 33.6 RDW Std Deviation 44.9 H RDW Coeff of Mark 13.2 Plt Count 270 MPV 9.0 Immature Gran % (Auto) 0.200 Neut % (Auto) 41.5 L Lymph % (Auto) 43.3 H Wagoner % (Auto) 10.2 H Eos % (Auto) 4.0 Baso % (Auto) 0.8 Absolute Neuts (auto) 2.6 Absolute Lymphs (auto) 2.68 Nucleated RBC % 0 Sodium 140 Potassium 3.5 Chloride 108 H Carbon Dioxide 28.0 Anion Gap 4 L BUN 18 Creatinine 0.80 Estim Creat Clear Calc 43.48 Est GFR (MDRD) Af Amer 88 Est GFR (MDRD) Non-Af 73 BUN/Creatinine Ratio 22.5 H Glucose 117 H Calcium 9.0 Magnesium 1.2 L Troponin I High Sens 26 17 Radiography Diagnostic Testing: Clinical Impression(s) from Imaging Studies Chest X-Ray 01/25/23 16:28 IMPRESSION: No acute cardiopulmonary abnormality. No interval change Electronically Signed: Marlo Castro MD at 16:40 EDT , Discharge Plan Triage Chief Complaint: Chest Pain ED Provider: Jean Morales Dx/Rx/DC Orders Clinical Impression: Chest pain Prescriptions: No Action venlafaxine 150 mg capsule,extended release 24hr 75 mg PO DAILY budesonide-formoterol 160-4.5 mcg/actuation Hfa Aerosol Inhaler 2 puff INHALATION BID metoprolol succinate 50 mg tablet extended release 24 hr 50 mg PO DAILY Patient Comments: TAKE 1 TABLET BY MOUTH ONCE DAILY WITH SUPPER ondansetron 4 mg tablet,disintegrating 4 mg PO Q8H PRN (Reason: nausea and vomiting) Qty: 10 0RF buprenorphine 7.5 mcg/hour patch weekly 1 patch transdermal Q7D Rx Instructions: applied CORIE 7/23/23 Primary Care Provider: Sergio Bailey Referrals: Sergio Bailey MD [Primary Care Provider] - Disposition Disposition: Acute Care Hospital [facility]
--- NOTE | 2023-01-25 16:14 | EKG12_ITS ---
Test Reason : CP Blood Pressure : / mmHG Vent. Rate : 079 BPM Atrial Rate : 079 BPM P-R Int : 168 ms QRS Dur : 092 ms QT Int : 372 ms P-R-T Axes : 004 046 102 degrees QTc Int : 426 ms Sinus rhythm with Premature atrial complexes Left ventricular hypertrophy with repolarization abnormality ( Sokolow-Jacob ) Abnormal ECG Confirmed by FROYLAN MCKEON, KADI ([id number]), makeup editor DAVID CERON ([id number]) on 01/26/2023 1:17:52 PM Referred By: TAYE/AUGUSTO Confirmed By:KADI GALEANO MD
[2023-01-25] MEDS: Aspirin 81 MG TAB.CHEW 324 MG PO (16:23)
--- NOTE | 2023-01-25 16:28 | RAD_ITS ---
EXAM: XR CHEST, 1 VIEW CLINICAL INDICATION: chest pain TECHNIQUE: Frontal view of the chest. COMPARISON: XR Chest dated 12/31/2022 FINDINGS: LUNGS AND PLEURAL SPACES: Normal. No consolidation or edema. No pneumothorax. No effusion. HEART: Normal heart size. MEDIASTINUM: No mediastinal or hilar mass. BONES/JOINTS: No acute abnormality. RAD/Chest 1 View (Portable) IMPRESSION: No acute cardiopulmonary abnormality. No interval change Electronically Signed: Marlo Castro MD at 16:40 EDT ,
[2023-01-25 16:35] LABS: Absolute Lymphocyte Count 2.68 X10^3/uL (0.83-4.51); Absolute Neutrophil Count 2.6 X10^3/uL (2.0-7.7); Basophil# 0.05 X10^3/uL; Basophil% 0.8 % (0-1); Eosinophil# 0.25 X10^3/uL; Hematocrit 36.3 % (37-47); Hemoglobin 12.2 g/dL (12.0-15.0); Lymphocyte # 2.68 X10^3/ul (0.83-4.51); Lymphocyte % 43.3 % (19-41); Mean Corp Hgb Conc 33.6 g/dL (32-36); Mean Corpuscular Hgb 31.3 pg (27.0-32.0); Mean Corpuscular Volume 93.1 fL (81-99); Monocyte# 0.63 X10^3/uL; Monocyte% 10.2 % (0-10); NRBC Flagged by Analyzer 0 % (0-5); Neutrophil # 2.57 X10^3/uL (2.7-7.7); Neutrophil % 41.5 % (47-70); Platelet Count 270 K/mm3 (150-450); RBC Distribution Width CV 13.2 % (11.6-14.6); RBC Distribution Width SD 44.9 fl (35.1-43.9); White Blood Count 6.2 K/mm3 (4.4-11.0)
[2023-01-25 16:49] LABS: Anion Gap 4 (5-15); BUN 18 mg/dL (7-18); BUN/Creat Ratio 22.5 RATIO (10-20); Chloride 108 mmol/L (98-107); EST Glomerular Filtration Rate 73 mL/min (>60); Est Glom Filt Rate - Afr Amer 88 mL/min (>60); Estimated Creatinine Clearance 43.48 ml/min; Glucose 117 mg/dL (74-106); Potassium 3.5 mmol/L (3.5-5.1); Sodium Level 140 mmol/L (136-145); Troponin-I HS (w/2H Reflex) 26 pg/mL (3.0-54.0)
[2023-01-25 18:26] LABS: Reflex Troponin-HS? (from REC) Y
[2023-01-25 18:59] LABS: Troponin-I HS 17 pg/mL (3.0-54.0)
--- NOTE | 2023-01-25 19:01 | EKG12_ITS ---
Test Reason : CP Repeat Blood Pressure : / mmHG Vent. Rate : 075 BPM Atrial Rate : 075 BPM P-R Int : 188 ms QRS Dur : 082 ms QT Int : 376 ms P-R-T Axes : -03 054 090 degrees QTc Int : 419 ms Normal sinus rhythm Left ventricular hypertrophy with repolarization abnormality ( Sokolow-Jacob ) Abnormal ECG Confirmed by FROYLAN MCKEON, KADI ([id number]), manuscript editor DAVID CERON ([id number]) on 01/26/2023 1:18:07 PM Referred By: Carmen Confirmed By:KADI GALEANO MD
--- NOTE | 2023-01-25 20:26 | PCM.HP.STD ---
HPI - General General Date of Admission: 01/25/23 Date of Service: 01/25/23 Chief Complaint: Chest pain HPI Narrative The patient is an 82 y/o F w/ PMHx: Former tobacco use, COPD, Hx VTE, Depression and Anxiety, Chronic anemia/Fe deficiency anemia, Chronic Headaches, GERD, HTN, Chronic pain syndrome with chronic buprenorphine patch who presents to the [facility] ED on 01/25/23 with history of chest discomfort beginning yesterday at approximately noon sharp located over the left chest and not worse or more pronounced with exertion prompting her to take several Excedrin specifically 6 as well as 1 ibuprofen pill over a 12-hour period the day prior with no recent surgery or prolonged car drives given ongoing prompted eventual ED arrival for evaluation. She notes that the discomfort is aching and left-sided only nature with no radiation with associated nausea with no emesis but no diaphoresis or dyspnea and at its worst rated discomfort 10 out of 10, currently 3 out of 10. She does admit that she is unfortunately been out of her blood pressure medications for at least a week and that they have been elevated. She denies any current headaches. Work-up in the ED included T98, heart rate 83, BP 144/80 with most recent repeat 159/88, respiratory rate 16, 96% room air, CBC with WC 6.2, hemoglobin 12.2, platelet 270 without marked shift, BMP with chloride 108, glucose 117, troponin initial 26 with delta repeat 17, chest x-ray with no acute cardiopulmonary finding, EKG with normal sinus rhythm with ST depression laterally similar to prior EKG 03/03/2022. In the ED patient administered a full-strength aspirin therapy. [facility] Medical History (Updated 01/25/23 @ 22:[address] Valentina Palomares MD) Back pain Chronic headaches COPD (chronic obstructive pulmonary disease) DVT (deep venous thrombosis) GERD (gastroesophageal reflux disease) Glaucoma Iron deficiency anemia Major depressive disorder Neoplasm of kidney Occipital neuralgia of right side Osteoarthritis Spondylosis Vitamin D deficiency Home Medications venlafaxine 150 mg capsule,extended release 24 hr 75 mg PO DAILY 01/09/19 [History Last Taken Unknown] budesonide-formoterol HFA 160 mcg-4.5 mcg/actuation aerosol inhaler 2 puff inhalation BID 05/01/21 [History Last Taken Unknown] metoprolol succinate 50 mg tablet,extended release 24 hr 50 mg PO DAILY 03/03/22 [History Last Taken Unknown] ondansetron 4 mg disintegrating tablet 4 mg PO Q8H PRN nausea and vomiting #10 tabs 03/03/22 [Rx Last Taken Unknown] buprenorphine 7.5 mcg/hour weekly transdermal patch 1 patch transdermal Q7D 01/25/23 [History Last Taken Unknown] Allergy/AdvReac Type Severity Reaction Status Date / Time duloxetine [From Cymbalta] AdvReac NEEDS Verified 01/25/23 15:37 FOLLOW-UP Family History (Updated 01/25/23 @ 22:[address] Valentina Palomares MD) Father CAD (coronary artery disease) CABG x 5 Brother CAD (coronary artery disease) age 59 Diabetes Mother No problems noted. Surgical History History of bilateral knee replacement History of left heart catheterization (~2002) History of open reduction and internal fixation (ORIF) procedure History of right hip replacement Social History (Updated 01/25/23 @ 22:[address] Valentina Palomares MD) household members: none Smoking Status: Former smoker alcohol intake: current alcohol intake frequency: a few times a week substance use type: does not use ROS ROS Narrative Admission Review of Systems: CONSTITUTIONAL: No weight loss, fever, chills, + weakness or fatigue. HEENT: Eyes: No visual loss, blurred vision, double vision or yellow sclerae. Ears, Nose, Throat: No hearing loss, sneezing, congestion, runny nose or sore throat. SKIN: No rash or itching, lesions, wounds. CARDIOVASCULAR: + chest pain, chest pressure or chest discomfort. No palpitations, edema, orthopnea, syncopal events. RESPIRATORY: No shortness of breath, cough or sputum, wheezing, hemoptysis. GASTROINTESTINAL: + anorexia, nausea. No vomiting or diarrhea, abdominal pain, melena, BRBPR. GENITOURINARY: No dysuria, frequency, urgency or retention. NEUROLOGICAL: + Chronic headaches. No dizziness, syncope, paralysis, ataxia, numbness or tingling in the extremities, focal weakness, change in bowel or bladder control, seizure. MUSCULOSKELETAL: + muscle, back pain, joint pain or stiffness. HEMATOLOGIC: + anemia, bleeding or bruising. LYMPHATICS: No enlarged nodes. No history of splenectomy. PSYCHIATRIC: + history of depression or anxiety. ENDOCRINOLOGIC: No reports of sweating, cold or heat intolerance. No polyuria or polydipsia. ALLERGIES: No history of asthma, hives, eczema or rhinitis. Vital Signs Vital Signs Vital Signs: 01/25/23 15:38 01/25/23 15:50 01/25/23 19:55 Temperature 98 F Temperature Source Temporal Pulse Rate 83 77 80 Respiratory Rate 16 17 18 Blood Pressure 144/80 H 151/82 H 159/88 H Blood Pressure Mean 101 105 111 Pulse Ox 96 Oxygen Delivery Method Room Air 01/25/23 20:23 Temperature Temperature Source Pulse Rate Respiratory Rate Blood Pressure Blood Pressure Mean Pulse Ox Oxygen Delivery Method Room Air Weight Weight: 112 lb Body Mass Index (BMI) 18.0 Physical Exam Narrative Physical Examination: General: Awake, alert, oriented x 3 and cooperative, laying in the bed, mildly fatigued, appears comfortable but states pain currently 3 out of 10 in severity to the left chest. Skin: Normal color, normal turgor, no icterus, no cyanosis except occasional staged ecchymoses. HEENT: AT/NC, EOMI, PERRLA, MMM, no carotid bruits or JVD noted. Lungs: Mildly diminished, greater bases, proper effort, no rales, ronchi or wheezing. Heart: Regular rate and rhythm; no gallop, rub audible. Abdomen: Soft, NTTP, ND, hyperactive BS, no HSM. Extremities: No cyanosis, clubbing, or edema. Neurological: Patient awake, alert, oriented as noted, cognitive function intact; pupils equally reactive to light and accommodation, cranial nerves II-XII grossly normal, moving all 4 extremities, no focal deficits, strength mildly to moderately globally decreased secondary to acute complaints and underlying comorbidities as well as advanced age Psychiatric: Affect appears fatigued otherwise normal, no acute evidence of depressive or anxiety feelings but does have underlying history. Results Lab / Micro Data 01/25/23 15:40 01/25/23 15:40 Labs: Laboratory Results - last 24 hr 01/25/23 15:40: WBC 6.2, RBC 3.90 L, Hgb 12.2, Hct 36.3 L, MCV 93.1, MCH 31.3, MCHC 33.6, RDW Std Deviation 44.9 H, RDW Coeff of Mark 13.2, Plt Count 270, MPV 9.0, Immature Gran % (Auto) 0.200, Neut % (Auto) 41.5 L, Lymph % (Auto) 43.3 H, [place] % (Auto) 10.2 H, Eos % (Auto) 4.0, Baso % (Auto) 0.8, Absolute Neuts (auto) 2.6, Absolute Lymphs (auto) 2.68, Nucleated RBC % 0, Sodium 140, Potassium 3.5, Chloride 108 H, Carbon Dioxide 28.0, Anion Gap 4 L, BUN 18, Creatinine 0.80, Estim Creat Clear Calc 43.48, Est GFR (MDRD) Af Amer 88, Est GFR (MDRD) Non-Af 73, BUN/Creatinine Ratio 22.5 H, Glucose 117 H, Calcium 9.0, Troponin I High Sens 26 01/25/23 18:00: Troponin I High Sens 17 Radiology Impression Chest X-Ray 01/25/23 16:28 IMPRESSION: No acute cardiopulmonary abnormality. No interval change Electronically Signed: Marlo Castro MD at 16:40 EDT , Assessment & Plan Assessment/Plan (1) Chest pain: PLAN: Plan The patient is an 82 y/o F w/ PMHx: Former tobacco use, COPD, Hx VTE, Depression and Anxiety, Chronic anemia/Fe deficiency anemia, Chronic Headaches, GERD, HTN, Chronic pain syndrome with chronic buprenorphine patch who presents to the [facility] ED on 01/25/23 with history of chest discomfort beginning yesterday at approximately noon sharp located over the left chest and not worse or more pronounced with exertion prompting her to take several Excedrin specifically 6 as well as 1 ibuprofen pill over a 12-hour period the day prior with no recent surgery or prolonged car drives given ongoing prompted eventual ED arrival for evaluation. #1. Chest Pain: EKG in ED sinus rhythm with no acute evidence of ischemia, CXR w/ no acute cardiopulmonary findings, initial trop 26 with repeat delta 17. Will admit to PCU, place on a monitored bed to assure no acute myocardial infarction with serial cardiac enzymes and EKGs. If repeat cardiac enzymes and EKGs remain unremarkable will pursue a.m. cardiac stress testing. FLP in AM. Magnesium level requested. Certainly could be related with patient's uncontrolled hypertension as she is been off her medication for 1 week which was discussed and she notes unfortunately that she just ran out and was able to get a refill and is requesting that this be obtained at her discharge to assure she has the proper medications. ASA, NG, morphine. #2. Hypertension, uncontrolled possibly contributing to #1: Patient unfortunately out of her blood pressure medication for the last week with elevated blood pressures, certainly likely contributing to #1 presentation, will reinitiate patient metoprolol regimen and from discussion with her and her family will need refill at her discharge, will also have as needed IV hydralazine. #3. Chronic COPD: Patient is not on any chronic oxygen or chronic inhalers per review of list, given presentation to be cautious we will maintain on ATC budesonide therapy with PRN albuterol, HOB, IS parameters. #4. Former tobacco usage: Noted remote and minimal but did have significant exposure to smoking in her youth, encourage continued tobacco cessation. #5. Chronic anemia/iron deficiency anemia: Admission hemoglobin 12.2, MCV 93.1, baseline hemoglobin appears 12-13 over the last several years, appears stable, encourage continued outpatient follow-up, currently does not appear to be on iron supplementation. #6. Anxiety and depression: We will continue patient home venlafaxine regimen. #7. GERD: We will have as needed Mylanta, not on chronic regimen per review of current list #8. History of VTE: Not on chronic anticoagulation, from description apparently provoked remotely. She has been active, moving with no recent prolonged travel nor recent LE pain/swelling. #9. Chronic pain syndrome, chronic back pain: We will continue patient home chronic buprenorphine patch which she notes was placed 2 days prior to current presentation. #10. DVT prophylaxis: Given type of admission would consider low risk, encourage ambulation. #11. CODE status: Patient does have a living will in place and her daughter who is present she notes would be her decision-maker if she was unable. Discussed CODE status at length including difference between FULL code, DNR-CCA and DNR-CC status. Following discussions about the differences in these status, requested Full Code status. Charges/Coding Visit Charges Inpatient E&M: 89956 Init Hosp L2
--- NOTE | 2023-01-25 20:30 | EKG12_ITS ---
Test Reason : CP ADMIT Blood Pressure : / mmHG Vent. Rate : 073 BPM Atrial Rate : 000 BPM P-R Int : 000 ms QRS Dur : 088 ms QT Int : 378 ms P-R-T Axes : 000 060 112 degrees QTc Int : 416 ms Accelerated Junctional rhythm Left ventricular hypertrophy with repolarization abnormality ( Sokolow-Jacob ) Abnormal ECG When compared with ECG of 25-JAN-2023 15:43, MANUAL COMPARISON REQUIRED, DATA IS UNCONFIRMED Confirmed by FROYLAN MCKEON, KADI ([id number]), news videotape editor DAVID CERON ([id number]) on 01/27/2023 9:26:34 AM Referred By: Confirmed By:KADI GALEANO MD
[2023-01-25 20:51] LABS: Magnesium 1.2 mg/dL (1.6-2.6)
[2023-01-25] MEDS: Acetaminophen 325 MG Tablet PO (22:47)
--- NOTE | 2023-01-25 23:21 | EKG12_ITS ---
Test Reason : CP Blood Pressure : / mmHG Vent. Rate : 079 BPM Atrial Rate : 079 BPM P-R Int : 168 ms QRS Dur : 078 ms QT Int : 372 ms P-R-T Axes : 020 053 103 degrees QTc Int : 426 ms Normal sinus rhythm Left ventricular hypertrophy with repolarization abnormality ( Sokolow-Jacob ) Abnormal ECG When compared with ECG of 26-JAN-2023 00:01, MANUAL COMPARISON REQUIRED, DATA IS UNCONFIRMED Confirmed by FROYLAN MCKEON, KADI ([id number]), digital editor DAVID CERON ([id number]) on 01/27/2023 9:25:58 AM Referred By: DR TURNER Confirmed By:KADI GALEANO MD
[2023-01-25] MEDS: 0.9% Normal Saline 1,000 ML 100 ML IV (23:41)
[2023-01-25] MEDS: MELATONIN 3 MG TABLET PO (23:42)
[2023-01-25] MEDS: oxyCODONE 5 MG Tablet PO (23:42)
[2023-01-26] VITALS (12 sets, daily range): BP systolic 104–175; BP diastolic 65–90; PULSE 78–85; RESP 12–18; TEMP 36.4–37.3; O2SAT 91–100; BMI 19.1
[2023-01-26 00:15] LABS: Troponin-I HS 13 pg/mL (3.0-54.0)
[2023-01-26] MEDS: CLARIFY ORDER 1 EACH NOTE (00:35)
[2023-01-26] MEDS: HYDROmorphone 0.5 MG/0.5 ML SYRINGE IV ×2 (00:38→08:49)
[2023-01-26] MEDS: Aspirin E.C. 81 MG Tablet PO (05:55)
[2023-01-26] MEDS: Acetaminophen 325 MG Tablet 650 MG PO ×2 (06:15→19:50)
[2023-01-26] MEDS: oxyCODONE 5 MG Tablet PO ×2 (06:15→19:50)
[2023-01-26 06:48] LABS: Absolute Lymphocyte Count 2.39 X10^3/uL (0.83-4.51); Absolute Neutrophil Count 3.1 X10^3/uL (2.0-7.7); Basophil# 0.04 X10^3/uL; Basophil% 0.6 % (0-1); Eosinophil# 0.41 X10^3/uL; Eosinophils% 6.3 % (0-5); Hematocrit 39.8 % (37-47); Hemoglobin 12.5 g/dL (12.0-15.0); Lymphocyte # 2.39 X10^3/ul (0.83-4.51); Lymphocyte % 36.6 % (19-41); Mean Corp Hgb Conc 31.4 g/dL (32-36); Mean Corpuscular Hgb 30.1 pg (27.0-32.0); Mean Corpuscular Volume 95.9 fL (81-99); Mean Platelet Vol. 8.7 fl (6.2-12.0); Monocyte# 0.59 X10^3/uL; NRBC Flagged by Analyzer 0 % (0-5); Neutrophil # 3.09 X10^3/uL (2.7-7.7); Neutrophil % 47.3 % (47-70); Platelet Count 273 K/mm3 (150-450); RBC Distribution Width CV 13.2 % (11.6-14.6); RBC Distribution Width SD 46.8 fl (35.1-43.9); Red Blood Count 4.15 M/mm3 (4.2-5.4); White Blood Count 6.5 K/mm3 (4.4-11.0)
[2023-01-26 07:25] LABS: ALB/GLOB Ratio 1.2 RATIO (0.9-2.4); AST(SGOT) 18 U/L (15-37); Alanine Aminotransfer ALT/SGPT 17 U/L (13-56); Albumin, Serum 3.6 g/dL (3.2-5.0); Alkaline Phosphatase 67 U/L (45-117); Anion Gap 5 (5-15); BUN 18 mg/dL (7-18); BUN/Creat Ratio 21.3 RATIO (10-20); Calcium,Total 8.9 mg/dL (8.5-10.1); Chloride 106 mmol/L (98-107); Cholesterol 215 mg/dL (200); Creatinine, Serum 0.84 mg/dL (0.55-1.02); EST Glomerular Filtration Rate 68 mL/min (>60); Est Glom Filt Rate - Afr Amer 83 mL/min (>60); Estimated Creatinine Clearance 42.52 ml/min; Glucose 104 mg/dL (74-106); High Density Lipoprotein 68 mg/dL; Potassium 3.6 mmol/L (3.5-5.1); Protein, Total 6.6 g/dL (6.4-8.2); Sodium Level 140 mmol/L (136-145); Triglycerides 129 mg/dL; Very Low Density Lipoprotein 26 mg/dL (5-40)
[2023-01-26] MEDS: Budesonide Respules 0.5 MG/2 ML AMPUL.NEB. INHALATION ×2 (07:30→20:01)
--- NOTE | 2023-01-26 08:54 | PCM.PN.HOSP ---
Reason for Visit Reason for Visit: Diagnoses Chest pain, unspecified (01/25/23) Objective Data Objective Data Vital Signs: Vital Signs Temp Pulse Resp BP Pulse Ox O2 Del Method O2 Flow Rate 98 F 78 18 157/84 H 96 Nasal Cannula 2 01/26/23 06:13 01/26/23 07:20 01/26/23 07:20 01/26/23 06:13 01/26/23 08:07 01/26/23 08:07 01/26/23 08:07 Oxygen Flow Rate (L/min) 2 Oxygen Delivery Method Nasal Cannula Weight: 115 lb Body Mass Index (BMI) 19.1 Lab / Micro Data 01/26/23 06:05 01/26/23 06:05 Labs: Laboratory Results - last 24 hr 01/25/23 15:40: WBC 6.2, RBC 3.90 L, Hgb 12.2, Hct 36.3 L, MCV 93.1, MCH 31.3, MCHC 33.6, RDW Std Deviation 44.9 H, RDW Coeff of Mark 13.2, Plt Count 270, MPV 9.0, Immature Gran % (Auto) 0.200, Neut % (Auto) 41.5 L, Lymph % (Auto) 43.3 H, [place] % (Auto) 10.2 H, Eos % (Auto) 4.0, Baso % (Auto) 0.8, Absolute Neuts (auto) 2.6, Absolute Lymphs (auto) 2.68, Nucleated RBC % 0, Sodium 140, Potassium 3.5, Chloride 108 H, Carbon Dioxide 28.0, Anion Gap 4 L, BUN 18, Creatinine 0.80, Estim Creat Clear Calc 43.48, Est GFR (MDRD) Af Amer 88, Est GFR (MDRD) Non-Af 73, BUN/Creatinine Ratio 22.5 H, Glucose 117 H, Calcium 9.0, Troponin I High Sens 01/25/23 18:00: Magnesium 1.2 L, Troponin I High Sens 01/25/23 23:50: Troponin I High Sens 01/26/23 06:05: WBC 6.5, RBC 4.15 L, Hgb 12.5, Hct 39.8, MCV 95.9, MCH 30.1, MCHC 31.4 L D, RDW Std Deviation 46.8 H, RDW Coeff of Mark 13.2, Plt Count 273, MPV 8.7, Immature Gran % (Auto) 0.200, Neut % (Auto) 47.3, Lymph % (Auto) 36.6, [place] % (Auto) 9.0, Eos % (Auto) 6.3 H, Baso % (Auto) 0.6, Absolute Neuts (auto) 3.1, Absolute Lymphs (auto) 2.39, Nucleated RBC % 0, Sodium 140, Potassium 3.6, Chloride 106, Carbon Dioxide 29.0, Anion Gap 5, BUN 18, Creatinine 0.84, Estim Creat Clear Calc 42.52, Est GFR (MDRD) Af Amer 83, Est GFR (MDRD) Non-Af 68, BUN/Creatinine Ratio 21.3 H, Glucose 104, Calcium 8.9, Total Bilirubin 0.20, AST 18, ALT 17, Alkaline Phosphatase 67, Total Protein 6.6, Albumin 3.6, Globulin 3.0, Albumin/Globulin Ratio 1.2, Triglycerides 129, Cholesterol 215 H, LDL Cholesterol 121, VLDL Cholesterol 26, HDL Cholesterol 68 Radiography Diagnostic Testing: Radiology Impression Chest X-Ray 01/25/23 16:28 IMPRESSION: No acute cardiopulmonary abnormality. No interval change Electronically Signed: Marlo Castro MD at 16:40 EDT , Assessment & Plan Assessment/Plan (1) Chest pain: PLAN: Plan The patient is an 82 y/o F w/ PMHx: Former tobacco use, COPD, Hx VTE, Depression and Anxiety, Chronic anemia/Fe deficiency anemia, Chronic Headaches, GERD, HTN, Chronic pain syndrome with chronic buprenorphine patch who presents to the [facility] ED on 01/25/23 with history of chest discomfort beginning yesterday at approximately noon sharp located over the left chest and not worse or more pronounced with exertion prompting her to take several Excedrin specifically 6 as well as 1 ibuprofen pill over a 12-hour period the day prior with no recent surgery or prolonged car drives given ongoing prompted eventual ED arrival for evaluation. #1. Chest Pain: EKG in ED sinus rhythm with no acute evidence of ischemia, CXR w/ no acute cardiopulmonary findings, initial trop 26 with repeat delta 17. Will admit to PCU, place on a monitored bed to assure no acute myocardial infarction with serial cardiac enzymes and EKGs. If repeat cardiac enzymes and EKGs remain unremarkable will pursue a.m. cardiac stress testing. FLP in AM. Magnesium level requested. Certainly could be related with patient's uncontrolled hypertension as she is been off her medication for 1 week which was discussed and she notes unfortunately that she just ran out and was able to get a refill and is requesting that this be obtained at her discharge to assure she has the proper medications. ASA, NG, morphine. #2. Hypertension, uncontrolled possibly contributing to #1: Patient unfortunately out of her blood pressure medication for the last week with elevated blood pressures, certainly likely contributing to #1 presentation, will reinitiate patient metoprolol regimen and from discussion with her and her family will need refill at her discharge, will also have as needed IV hydralazine. #3. Chronic COPD: Patient is not on any chronic oxygen or chronic inhalers per review of list, given presentation to be cautious we will maintain on ATC budesonide therapy with PRN albuterol, HOB, IS parameters. #4. Former tobacco usage: Noted remote and minimal but did have significant exposure to smoking in her youth, encourage continued tobacco cessation. #5. Chronic anemia/iron deficiency anemia: Admission hemoglobin 12.2, MCV 93.1, baseline hemoglobin appears 12-13 over the last several years, appears stable, encourage continued outpatient follow-up, currently does not appear to be on iron supplementation. #6. Anxiety and depression: We will continue patient home venlafaxine regimen. #7. GERD: We will have as needed Mylanta, not on chronic regimen per review of current list #8. History of VTE: Not on chronic anticoagulation, from description apparently provoked remotely. She has been active, moving with no recent prolonged travel nor recent LE pain/swelling. #9. Chronic pain syndrome, chronic back pain: We will continue patient home chronic buprenorphine patch which she notes was placed 2 days prior to current presentation. #10. DVT prophylaxis: Given type of admission would consider low risk, encourage ambulation. #11. CODE status: Patient does have a living will in place and her daughter who is present she notes would be her decision-maker if she was unable. Discussed CODE status at length including difference between FULL code, DNR-CCA and DNR-CC status. Following discussions about the differences in these status, requested Full Code status.
[2023-01-26] MEDS: Venlafaxine XR 75 MG Capsule PO (11:22)
--- NOTE | 2023-01-26 13:00 | STRESSREP ---
Stress Test Report Pharmacologic myocardial perfusion stress test. 82-year-old lady with a history of chest pain Resting EKG demonstrates sinus rhythm with a rate of 80 bpm and downsloping inferolateral changes. Resting blood pressure is 142/70 mmHg. 0.4 mg of regadenoson was infused per usual protocol followed by rapid intravenous saline flush injection. Continuous EKG monitoring was performed. The maximum heart rate was 141 bpm which was 102% of max impacted heart rate the maximum workload was 1 metabolic equivalent. At rest there were no ST or T wave changes noted to suggest ischemia and at peak infusion nonspecific ST changes were noted which did not meet the criteria for ischemia. No clinical angina is noted. The final blood pressure was 146/64 mmHg. Myocardial perfusion protocol. 12.0 mCi of technetium 99m sestamibi was injected at rest. 0.4 mg of regadenoson was infused per usual protocol. At peak infusion 33.5 mCi of technetium 99m sestamibi was injected stress images were obtained stress and rest images were reconstructed and compared in the short axis vertical long and horizontal long axis. Gated images were also obtained. Perfusion SPECT analysis: Review of the stress images demonstrate normal uptake of tracer noted in all areas of the myocardium. The resting images similar demonstrated normal uptake of tracer noted in all areas of the myocardium. No areas of reversibility are noted to suggest ischemia and no previous infarct is noted. Gated SPECT analysis: The gated ejection fraction is 58%. Conclusion: Normal pharmacologic myocardial perfusion stress test. Preserved ejection fraction.
[2023-01-26] MEDS: Ketorolac 30 MG/ML Syringe IV (13:04)
[2023-01-26] MEDS: proMETHazine 25 MG/ML Syringe 12.5 MG IM ×2 (13:06→19:40)
--- NOTE | 2023-01-26 13:27 | PHA.DC.MR.R ---
Pharmacy OR Med Reconciliation Pharmacy Service has performed discharge medication reconciliation for this patient. no new medications at time of discharge medication review. Medications reviewed are from previously reported home medications. The patient's discharge medication list was reviewed for discrepancies and discrepancies were resolved.
--- NOTE | 2023-01-26 13:30 | CASEMGMT ---
DARYL RAMOS NOTE: Pt being discharged. RN CM to room. Pt resting in bed. Dtr @ bedside. Pt and dtr deny having any discharge planning needs or concerns. Pt states she lives w/her and is pretty independent. Judy KRAFTN DARYL RAMOS
[2023-01-26] MEDS: Metoprolol(XL)Succ 50 MG Tablet PO (15:19)
[2023-01-26] MEDS: hydrALAZINE 20 MG/ML Vial 10 MG IV (16:18)
[2023-01-26] MEDS: SUMAtriptan 6 MG/0.5 ML Vial SC (16:55)
--- NOTE | 2023-01-26 17:42 | PN.HOSP_ITS ---
Reason for Visit Reason for Visit: Diagnoses Chest pain, unspecified (01/25/23) Objective Data Objective Data Vital Signs: Vital Signs Temp Pulse Resp BP Pulse Ox O2 Del Method O2 Flow Rate 98.4 F 81 16 154/70 H 99 Room Air 2 01/26/23 15:15 01/26/23 16:18 01/26/23 15:15 01/26/23 17:34 01/26/23 15:15 01/26/23 15:15 01/26/23 09:01 Oxygen Flow Rate (L/min) 2 Oxygen Delivery Method Room Air Weight: 115 lb Body Mass Index (BMI) 19.1 Intake & Output: Intake and Output for Last 24 Hours 01/24/23 01/25/23 01/26/23 23:59 23:59 23:59 Intake Total 831.67 / 831.67 Balance 831.67 / 831.67 Lab / Micro Data 01/26/23 06:05 01/26/23 06:05 Labs: Laboratory Results - last 24 hr 01/25/23 18:00: Magnesium 1.2 L, Troponin I High Sens 17 01/25/23 23:50: Troponin I High Sens 13 01/26/23 06:05: WBC 6.5, RBC 4.15 L, Hgb 12.5, Hct 39.8, MCV 95.9, MCH 30.1, MCHC 31.4 L D, RDW Std Deviation 46.8 H, RDW Coeff of Mark 13.2, Plt Count 273, MPV 8.7, Immature Gran % (Auto) 0.200, Neut % (Auto) 47.3, Lymph % (Auto) 36.6, [place] % (Auto) 9.0, Eos % (Auto) 6.3 H, Baso % (Auto) 0.6, Absolute Neuts (auto) 3.1, Absolute Lymphs (auto) 2.39, Nucleated RBC % 0, Sodium 140, Potassium 3.6, Chloride 106, Carbon Dioxide 29.0, Anion Gap 5, BUN 18, Creatinine 0.84, Estim Creat Clear Calc 42.52, Est GFR (MDRD) Af Amer 83, Est GFR (MDRD) Non-Af 68, BUN/Creatinine Ratio 21.3 H, Glucose 104, Calcium 8.9, Total Bilirubin 0.20, AST 18, ALT 17, Alkaline Phosphatase 67, Total Protein 6.6, Albumin 3.6, Globulin 3.0, Albumin/Globulin Ratio 1.2, Triglycerides 129, Cholesterol 215 H, LDL Cholesterol 121, VLDL Cholesterol 26, HDL Cholesterol 68 Physical Exam Narrative Seen and examined. Heart rate and blood pressure controlled. Patient is started having severe occipital and neck pain after stress test. She states 10 out of 10 also had vomiting. Denies blurry vision. Mild nauseated. Chest pain is resolved Physical exam General: Alert, Oriented x3, Cooperative HEENT: Mild tenderness over occipital head region. Atraumatic, PERRLA, EOMI, Normocephalic Oral: Oral mucosa moist. No Gingival or Mucosal Lesions/ Ulcerations Neck: Mild tenderness over cervical spine. Supple, No JVD, Negative Carotid Bruits Lungs: Air entry diminished in bilateral lung bases. No crepitation/rhonchi Cardiovascular: Regular rate, Regular Rhythm, Normal S1, Normal S2, No murmurs Abdomen: Bowel Sounds Present, Soft, Non Tender, Non-Distended : No renal angle tenderness. No suprapubic tenderness. Extremities: No edema, Capillary Refill Less than 3 Seconds Skin: No rashes, No breakdown Musculoskeletal: No Tenderness to Palpation of Joints or Extremities. De generative arthritis of C-spine. Neurological: Cranial nerves II-XII grossly intact, DTR 2+/4 and Symmetrical, Neuro grossly intact Psych/Mental Status: Flat affect. Assessment & Plan Assessment/Plan (1) Chest pain: PLAN: Plan The patient is an 82 y/o F admitted with chest discomfort that started 1 day before admission. Sharp located over left chest. Patient also has history of chronic neck and occipital headache and follows pain management doctor. She recently had neck injection. #1. Atypical Chest Pain most likely due to musculoskeletal chest pain.: Patient was admitted in PCU EKG in ED sinus rhythm with no acute evidence of ischemia, CXR individually reviewed and showed no evidence of acute cardiopulmonary abnormality. Serial troponins negative. Repeat chest x-ray does not show acute change. Patient had pharmacological nuclear stress test which is reported normal. Patient is being discharged. Atypical chest pain most likely musculoskeletal in nature. 2. Acute on chronic occipital headache most likely occipital migraine: Patient not on any triptan medication and not use in the past. Patient follows pain management doctor and is on buprenorphine pain patch. Patient also recently got injection in cervical spine. Toradol 30 mg IV 1 dose and Phenergan 12.5 mg or dered. Patient headache is slightly better. 01/26: Patient headache got little better with Phenergan and Toradol but again got headache severe 10 out of 10. Sumatriptan 6 mg subcu was given but her h eadache is same 10/10 pounding after 1 hour. Toradol 15 mg IV 1 more visit ordered. Cancel discharge. Valproate sodium 250 mg IV ordered along with Phenergan as needed. #2. Hypertension, uncontrolled: Continue metoprolol BP is normal last 100/90. #3. COPD: Patient is on Symbicort inhaler #4. Former tobacco usage: Noted remote and minimal but did have significant exposure to smoking in her youth, encourage continued tobacco cessation. #5. Chronic anemia/iron deficiency anemia: Admission hemoglobin 12.2, MCV 93.1, baseline hemoglobin appears 12-13 over the last several years, appears stable, encourage continued outpatient follow-up #6. Anxiety and depression: We will continue patient home venlafaxine regimen. #7. GERD: Not acute issue. #8. History of VTE: Not on chronic anticoagulation, from description apparently provoked remotely. She has been active, moving with no recent prolonged travel nor recent LE pain/swelling. #9. Chronic pain syndrome, chronic back pain: We will continue patient home chronic buprenorphine patch which she notes was placed 2 days prior to current presentation. #10. DVT prophylaxis: Given type of admission would consider low risk, encoura ge ambulation. #11. CODE status: Patient does have a living will in place and her daughter who is present she notes would be her decision-maker if she was unable. Discussed CODE status at length including difference between FULL code, DNR-CCA and DNR-CC status. Following discussions about the differences in these status, requested Full Code status. Discharge was canceled because patient having severe pounding headache. Charges/Coding Visit Charges Inpatient E&M: 73064 Subs Hosp L2
[2023-01-26] MEDS: Ketorolac 15 MG/ML Vial IV (19:39)
[2023-01-26] MEDS: MELATONIN 3 MG TABLET PO (19:50)
--- NOTE | 2023-01-26 21:00 | PCM.HOSP.N ---
Hospitalist Note Patient with chronic issues outpatient with headaches requiring from description notable interventions. Currently on depacon with pulse toradol administered with ongoing headache. Will add decadron IV, low dose gabapentin, IV benadryl x 1 in addition to low dose toradol PRN with maximum 5 doses.
[2023-01-26] MEDS: DiphenhydrAMINE 50 MG/ML Syringe 25 MG IV (21:47)
[2023-01-26] MEDS: Gabapentin 100 MG Capsule PO (21:47)
[2023-01-26] MEDS: dexAMETHasone 4 MG/ML Vial IV (21:47)
[2023-01-27 05:00] VITALS: BMI 17.8
[2023-01-27 06:00] VITALS: BMI 18.1
[2023-01-27 06:08] VITALS: BP 132/58; PULSE 62; RESP 16; TEMP 36.6; O2SAT 95
[2023-01-27] MEDS: Budesonide Respules 0.5 MG/2 ML AMPUL.NEB. INHALATION (07:00)
[2023-01-27 07:01] VITALS: PULSE 80; RESP 16; O2SAT 97
--- NOTE | 2023-01-27 08:25 | CASEMGMT ---
DARYL RAMOS NOTE: RN CM to room. Pt resting in bed. She states her headache is much better this morning. [employer] form explained re: Observation status for treatment of chest pain.? Explained hospitalization will be paid per?her insurance policy for Outpatient billing?and condition will continue to be evaluated for Inpt necessity. Also let pt know that [facility] sends paper in the billing packet with their phone number if questions arise. Discussed Pharmacy section of [employer] form and self administered medication guideline.? Pt verbalizes understanding and does not have further questions. ?Form signed, copy made and placed in chart, and original given to pt. Judy JAMES RN CM
--- NOTE | 2023-01-27 09:30 | DCINST_ITS ---
Discharge Instructions Diet Discharge Diet: No restrictions Activity Discharge Activity: Return to Normal Activity Weight Bearing Status: Weight bearing as tolerated Dressing / Incision Call your doctor if you observe: Fever of 101 or Higher, Coldness, Increased Pain, Numbness or Tingling, Change in Color, Inability to urinate, Inability to have a bowel movement, Using more than 1 pad per hour, Shortness of breath, Dizziness, Fainting spells, Swelling in the ankles, Chest pain, Prolonged hiccupping, Increased palpitations (irregular heartbeat) and Calf discomfort Follow Up Care When: IN 2 WEEKS Test Results: Test results from this visit will be discussed in further detail at your follow- up appointment, if applicable. Discharge Plan Admission Admit Date/Time: 01/25/23 20:26 Primary Reason for Your Visit: Acute coronary syndrome ruled out. Attending Provider: Deven Ugarte Primary Care Provider: Sergio Bailey Consulting Providers: Valentina Palomares Instructions Additional Instructions / Restrictions: Patient follows pain management For occipital headache which most probably is occipital migraine. Advised to continue follow-up. Discharge Orders/Prescriptions Prescriptions: Continued venlafaxine 150 mg capsule,extended release 24hr 75 mg PO DAILY budesonide-formoterol 160-4.5 mcg/actuation Hfa Aerosol Inhaler 2 puff INHALATION BID metoprolol succinate 50 mg tablet extended release 24 hr 50 mg PO DAILY Patient Comments: TAKE 1 TABLET BY MOUTH ONCE DAILY WITH SUPPER ondansetron 4 mg tablet,disintegrating 4 mg PO Q8H PRN (Reason: nausea and vomiting) Qty: 10 0RF buprenorphine 7.5 mcg/hour patch weekly 1 patch transdermal Q7D Rx Instructions: applied Monday01/22/23 Referrals / Follow Up: Sergio Bailey MD [Primary Care Provider] - Within 1 Week Disposition Disposition (needs filled in before D/C Order can be placed): Home, Self Care
[2023-01-27 09:52] VITALS: BP 114/59; PULSE 70; RESP 16; TEMP 36.4; O2SAT 100
[2023-01-27] MEDS: Gabapentin 100 MG Capsule PO (09:58)
[2023-01-27] MEDS: Venlafaxine XR 75 MG Capsule PO (09:58)
[2023-01-27] MEDS: Aspirin E.C. 81 MG Tablet PO (09:58)
[2023-01-27 10:08] VITALS: BP 114/59; PULSE 70
[2023-01-27] MEDS: Metoprolol(XL)Succ 50 MG Tablet PO (10:08)
--- NOTE | 2023-01-27 10:12 | PCM.DC.SUM ---
Providers Date of Admission: 01/25/23 Date of Discharge: 01/26/23 Primary Care Physician: Dr. Sergio Bailey MD Reason For Visit: CHEST PAIN Diagnosis Discharge Diagnosis (1) Chest pain: Status: Acute Code(s): R07.9 - Chest pain, unspecified Plan The patient is an 82 y/o F admitted with chest discomfort that started 1 day before admission. Sharp located over left chest. Patient also has history of chronic neck and occipital headache and follows pain management doctor. She recently had neck injection. #1. Atypical Chest Pain most likely due to musculoskeletal chest pain.: Patient was admitted in PCU EKG in ED sinus rhythm with no acute evidence of ischemia, CXR individually reviewed and showed no evidence of acute cardiopulmonary abnormality. Serial troponins negative. Repeat chest x-ray does not show acute change. Patient had pharmacological nuclear stress test which is reported normal. Patient is being discharged. Atypical chest pain most likely musculoskeletal in nature. 2. Acute on chronic occipital headache most likely occipital migraine: Patient not on any triptan medication and not use in the past. Patient follows pain management doctor and is on buprenorphine pain patch. Patient also recently got injection in cervical spine. Toradol 30 mg IV 1 dose and Phenergan 12.5 mg ordered. Patient headache is slightly better. Patient can go home after headache is better. #2. Hypertension, uncontrolled: Continue metoprolol BP is normal last 100/90. #3. COPD: Patient is on Symbicort inhaler #4. Former tobacco usage: Noted remote and minimal but did have significant exposure to smoking in her youth, encourage continued tobacco cessation. #5. Chronic anemia/iron deficiency anemia: Admission hemoglobin 12.2, MCV 93.1, baseline hemoglobin appears 12-13 over the last several years, appears stable, encourage continued outpatient follow-up #6. Anxiety and depression: We will continue patient home venlafaxine regimen. #7. GERD: Not acute issue. #8. History of VTE: Not on chronic anticoagulation, from description apparently provoked remotely. She has been active, moving with no recent prolonged travel nor recent LE pain/swelling. #9. Chronic pain syndrome, chronic back pain: We will continue patient home chronic buprenorphine patch which she notes was placed 2 days prior to current presentation. #10. DVT prophylaxis: Given type of admission would consider low risk, encourage ambulation. #11. CODE status: Patient does have a living will in place and her daughter who is present she notes would be her decision-maker if she was unable. Discussed CODE status at length including difference between FULL code, DNR-CCA and DNR-CC status. Following discussions about the differences in these status, requested Full Code status. Discharge medication reconciliation done. Discharge follow-up instructions completed. Discharge process discussed with the patient and all questions were answered to patient's satisfaction. Total time spent, exact 35 minutes on discharge meds reconciliation, examination, coordination of care with nurses and ancillary staff, review of imaging and blood test and discussion with the patient on follow-up instructions. Medications at Discharge Home Medications venlafaxine 150 mg capsule,extended release 24 hr 75 mg PO DAILY 01/09/19 budesonide-formoterol HFA 160 mcg-4.5 mcg/actuation aerosol inhaler 2 puff inhalation BID 05/01/21 metoprolol succinate 50 mg tablet,extended release 24 hr 50 mg PO DAILY 03/03/22 ondansetron 4 mg disintegrating tablet 4 mg PO Q8H PRN nausea and vomiting #10 tabs 03/03/22 buprenorphine 7.5 mcg/hour weekly transdermal patch 1 patch transdermal Q7D 01/25/23 Physical Exam Narrative Seen and examined. Heart rate and blood pressure controlled. Patient is started having severe occipital and neck pain after stress test. She states 10 out of 10 also had vomiting. Denies blurry vision. Mild nauseated. Chest pain is resolved Physical exam General: Alert, Oriented x3, Cooperative HEENT: Mild tenderness over occipital head region. Atraumatic, PERRLA, EOMI, Normocephalic Oral: Oral mucosa moist. No Gingival or Mucosal Lesions/ Ulcerations Neck: Mild tenderness over cervical spine. Supple, No JVD, Negative Carotid Bruits Lungs: Air entry diminished in bilateral lung bases. No crepitation/rhonchi Cardiovascular: Regular rate, Regular Rhythm, Normal S1, Normal S2, No murmurs Abdomen: Bowel Sounds Present, Soft, Non Tender, Non-Distended : No renal angle tenderness. No suprapubic tenderness. Extremities: No edema, Capillary Refill Less than 3 Seconds Skin: No rashes, No breakdown Musculoskeletal: No Tenderness to Palpation of Joints or Extremities. Degenerative arthritis of C-spine. Neurological: Cranial nerves II-XII grossly intact, DTR 2+/4 and Symmetrical, Neuro grossly intact Psych/Mental Status: Flat affect. Weight / BMI Weight Weight: 115 lb Body Mass Index (BMI) 19.1 ABG / Lab / Microbiology Data 01/26/23 06:05 01/26/23 06:05 Laboratory: Laboratory Results - last 24 hr 01/25/23 15:40: WBC 6.2, RBC 3.90 L, Hgb 12.2, Hct 36.3 L, MCV 93.1, MCH 31.3, MCHC 33.6, RDW Std Deviation 44.9 H, RDW Coeff of Mark 13.2, Plt Count 270, MPV 9.0, Immature Gran % (Auto) 0.200, Neut % (Auto) 41.5 L, Lymph % (Auto) 43.3 H, [place] % (Auto) 10.2 H, Eos % (Auto) 4.0, Baso % (Auto) 0.8, Absolute Neuts (auto) 2.6, Absolute Lymphs (auto) 2.68, Nucleated RBC % 0, Sodium 140, Potassium 3.5, Chloride 108 H, Carbon Dioxide 28.0, Anion Gap 4 L, BUN 18, Creatinine 0.80, Estim Creat Clear Calc 43.48, Est GFR (MDRD) Af Amer 88, Est GFR (MDRD) Non-Af 73, BUN/Creatinine Ratio 22.5 H, Glucose 117 H, Calcium 9.0, Troponin I High Sens 01/25/23 18:00: Magnesium 1.2 L, Troponin I High Sens 17 01/25/23 23:50: Troponin I High Sens 13 01/26/23 06:05: WBC 6.5, RBC 4.15 L, Hgb 12.5, Hct 39.8, MCV 95.9, MCH 30.1, MCHC 31.4 L D, RDW Std Deviation 46.8 H, RDW Coeff of Mark 13.2, Plt Count 273, MPV 8.7, Immature Gran % (Auto) 0.200, Neut % (Auto) 47.3, Lymph % (Auto) 36.6, [place] % (Auto) 9.0, Eos % (Auto) 6.3 H, Baso % (Auto) 0.6, Absolute Neuts (auto) 3.1, Absolute Lymphs (auto) 2.39, Nucleated RBC % 0, Sodium 140, Potassium 3.6, Chloride 106, Carbon Dioxide 29.0, Anion Gap 5, BUN 18, Creatinine 0.84, Estim Creat Clear Calc 42.52, Est GFR (MDRD) Af Amer 83, Est GFR (MDRD) Non-Af 68, BUN/Creatinine Ratio 21.3 H, Glucose 104, Calcium 8.9, Total Bilirubin 0.20, AST 18, ALT 17, Alkaline Phosphatase 67, Total Protein 6.6, Albumin 3.6, Globulin 3.0, Albumin/Globulin Ratio 1.2, Triglycerides 129, Cholesterol 215 H, LDL Cholesterol 121, VLDL Cholesterol 26, HDL Cholesterol 68 Radiography Diagnostic Testing: Radiology Impression Chest X-Ray 01/25/23 16:28 IMPRESSION: No acute cardiopulmonary abnormality. No interval change Electronically Signed: Marlo Castro MD at 16:40 EDT Reading Location ID and State: [address] [place] [address] Tel , Service support , D/C Instructions Discharge Diet: No restrictions Weight Bearing Status: Weight bearing as tolerated Call your doctor if you observe: Fever of 101 or Higher, Coldness, Increased Pain, Numbness or Tingling, Change in Color, Inability to urinate, Inability to have a bowel movement, Using more than 1 pad per hour, Shortness of breath, Dizziness, Fainting spells, Swelling in the ankles, Chest pain, Prolonged hiccupping, Increased palpitations (irregular heartbeat) and Calf discomfort When: IN 2 WEEKS Meaningful Use Info Meaningful Use Diagnoses (Choose all that apply): None applicable Discharge Plan Admission Admit Date/Time: 01/25/23 20:26 Primary Reason for Your Visit: Acute coronary syndrome ruled out. Attending Provider: Deven Ugarte Primary Care Provider: Sergio Bailey Consulting Providers: Valentina Palomares Instructions Additional Instructions / Restrictions: Patient follows pain management For occipital headache which most probably is occipital migraine. Advised to continue follow-up. Discharge Orders/Prescriptions Prescriptions: Continued venlafaxine 150 mg capsule,extended release 24hr 75 mg PO DAILY budesonide-formoterol 160-4.5 mcg/actuation Hfa Aerosol Inhaler 2 puff INHALATION BID metoprolol succinate 50 mg tablet extended release 24 hr 50 mg PO DAILY Patient Comments: TAKE 1 TABLET BY MOUTH ONCE DAILY WITH SUPPER ondansetron 4 mg tablet,disintegrating 4 mg PO Q8H PRN (Reason: nausea and vomiting) Qty: 10 0RF buprenorphine 7.5 mcg/hour patch weekly 1 patch transdermal Q7D Rx Instructions: applied Monday01/22/23 Referrals / Follow Up: Sergio Bailey MD [Primary Care Provider] - Within 1 Week Disposition Disposition (needs filled in before D/C Order can be placed): Home, Self Care Charges/Coding Visit Charges Inpatient E&M: 50535 Disch Hosp >30min
== END 2023-01-27 11:52 | disposition home or self-care (01) ==
LOC: ED 21:54 → PCU 01-26 07:16
PROVIDERS: Admitting Provider Family Medicine; Emergency Provider Emergency Medicine; PCP Family Medicine; Visit Provider Internal Medicine
DX: R07.89 Other chest pain (principal); J44.9 Chronic obstructive pulmonary disease, unspecified; F31.9 Bipolar disorder, unspecified; K21.9 Gastro-esophageal reflux disease without esophagitis; F41.9 Anxiety disorder, unspecified; I10 Essential (primary) hypertension; Z87.891 Personal history of nicotine dependence; R51.9 Headache, unspecified; G89.4 Chronic pain syndrome; Z86.718 Personal history of other venous thrombosis and embolism; Z79.899 Other long term (current) drug therapy
CPT/HCPCS: 36415; 71045; 78452; 80048; 80053; 80061; 83735; 84484; 85025; 93005; 93017; 94640; 96361; 96365; 96366; 96372; 96375; 96376; 99221; 99285; A9500; J7030; A4216; G0378; J2785; J3030

== ENCOUNTER 2023-02-13 11:21 | Emergency (ER) | payer MEDICARE, SELFPAY ==
[2023-02-13 11:24] VITALS: BP 99/54; PULSE 65; RESP 18; TEMP 36.6; O2SAT 92; BMI 19.4
[2023-02-13] MEDS: 0.9% Normal Saline 1,000 ML 150 ML IV (12:31)
[2023-02-13 12:42] LABS: Absolute Lymphocyte Count 0.91 X10^3/uL (0.83-4.51); Basophil# 0.08 X10^3/uL; Basophil% 0.5 % (0-1); Eosinophil# 0.35 X10^3/uL; Eosinophils% 2.1 % (0-5); Hematocrit 43.4 % (37-47); Hemoglobin 13.4 g/dL (12.0-15.0); Lymphocyte # 0.91 X10^3/ul (0.83-4.51); Lymphocyte % 5.4 % (19-41); Mean Corp Hgb Conc 30.9 g/dL (32-36); Mean Corpuscular Hgb 30.2 pg (27.0-32.0); Mean Platelet Vol. 8.9 fl (6.2-12.0); Monocyte# 1.33 X10^3/uL; Monocyte% 7.9 % (0-10); NRBC Flagged by Analyzer 0 % (0-5); Neutrophil # 14.03 X10^3/uL (2.7-7.7); Neutrophil % 83.5 % (47-70); Platelet Count 292 K/mm3 (150-450); RBC Distribution Width CV 12.9 % (11.6-14.6); RBC Distribution Width SD 45.9 fl (35.1-43.9); Red Blood Count 4.43 M/mm3 (4.2-5.4); White Blood Count 16.8 K/mm3 (4.4-11.0)
[2023-02-13 13:01] LABS: AST(SGOT) 18 U/L (15-37); Alanine Aminotransfer ALT/SGPT 15 U/L (13-56); Albumin, Serum 3.4 g/dL (3.2-5.0); Alkaline Phosphatase 72 U/L (45-117); Anion Gap 5 (5-15); BUN 26 mg/dL (7-18); Bilirubin, Direct 0.11 mg/dL (0.00-0.30); Chloride 107 mmol/L (98-107); Creatinine, Serum 1.24 mg/dL (0.55-1.02); EST Glomerular Filtration Rate 44 mL/min (>60); Est Glom Filt Rate - Afr Amer 53 mL/min (>60); Estimated Creatinine Clearance 29.27 ml/min; Globulin 3.1 g/dL (2.2-4.2); Glucose 131 mg/dL (74-106); Lipase 51 U/L (13-75); Potassium 4.2 mmol/L (3.5-5.1); Protein, Total 6.5 g/dL (6.4-8.2); Sodium Level 139 mmol/L (136-145)
--- NOTE | 2023-02-13 13:28 | CT_ITS ---
STUDY: CT ABDOMEN AND PELVIS WITH CONTRAST REASON FOR EXAM: Female, 82 years old. Abd pain, leukocytosis. History of renal neoplasm. RADIATION DOSAGE (If Supplied By Facility): CTDIvol = ( 9.95 ) mGy, DLP = ( 416.26 ) mGycm TECHNIQUE: Transaxial images were obtained from the dome of the diaphragm to the symphysis pubis without oral contrast. IV 75mL Isovue-[id number] was administered. Sagittal and coronal images were reconstructed. Individualized dose optimization techniques were used for this CT. COMPARISON: Comparison is made with prior study dated March 03, 2022. FINDINGS: Mild increased linear markings at the right lung base suggestive of linear atelectasis. The visualized portions of the heart are within normal limits. There is decreased attenuation of the liver consistent with steatosis. Mildly distended gallbladder. Normal spleen. Normal pancreas. Normal bilateral adrenal glands. Normal right kidney. There is a 1.6 cm complex cyst in the upper pole of the left kidney. 1 cm cyst in the lateral upper pole of the left kidney as well. There has been no change. Normal visualized stomach. Normal small intestine. Fluid distention of the colon more prominent in the left hemicolon. The appendix is visualized and appears normal. There is diffuse atherosclerotic calcification of the abdominal aorta, without a demonstrated aneurysm. Normal inferior vena cava. Normal retroperitoneum. Normal urinary bladder. Normal abdominal wall. There are diffuse degenerative changes of the visualized lumbar spine. Bilateral total hip replacement limiting evaluation of the pelvic structures. Dextroscoliosis. CT/Abdomen/Pelvis W IV Cont ONLY IMPRESSION: Fatty infiltration of the liver. Stable simple and complex cysts in the left kidney. Fluid-filled colon more prominent in the left hemicolon. Limited evaluation of pelvic structures due to bilateral hip prosthesis producing beam hardening artifact. Electronically Signed: Lasha Powell MD at 14:11 EDT ,
--- NOTE | 2023-02-13 13:34 | EX.ED.DYSGE1 ---
HPI History of Present Illness Chief Complaint: Abd Pain Informant: patient Onset/Context/Timing Onset: Today Narrative Narrative: Patient presents secondary to upper abdominal pain. She states about an hour or so after she ate this morning she got severe upper abdominal pain with nausea and felt very sick. She called her . She states before EMS arrived she went to the bathroom and had a bowel movement and was feeling significantly improved at the time they arrived. She did not have any bloody stool. She denies fever or chills. [facility] Medical History Back pain Chronic headaches COPD (chronic obstructive pulmonary disease) DVT (deep venous thrombosis) GERD (gastroesophageal reflux disease) Glaucoma Iron deficiency anemia Major depressive disorder Neoplasm of kidney Occipital neuralgia of right side Osteoarthritis Spondylosis Vitamin D deficiency Home Medications venlafaxine 150 mg capsule,extended release 24 hr 75 mg PO DAILY mental health 01/09/19 [History Last Taken Unknown] budesonide-formoterol HFA 160 mcg-4.5 mcg/actuation aerosol inhaler 2 puff inhalation BID breathing 05/01/21 [History Last Taken Unknown] metoprolol succinate 50 mg tablet,extended release 24 hr 50 mg PO DAILY blood pressure 03/03/22 [History Last Taken Unknown] ondansetron 4 mg disintegrating tablet 4 mg PO Q8H PRN nausea and vomiting #10 tabs 03/03/22 [Rx Last Taken Unknown] buprenorphine 7.5 mcg/hour weekly transdermal patch 1 patch transdermal Q7D pain 01/25/23 [History Last Taken Unknown] pantoprazole 40 mg tablet,delayed release (Protonix) 40 mg PO DAILY #30 tabs 01/27/23 [Rx Last Taken Unknown] Allergy/AdvReac Type Severity Reaction Status Date / Time duloxetine [From Cymbalta] AdvReac NEEDS Verified 02/13/23 11:23 FOLLOW-UP Family History Father CAD (coronary artery disease) CABG x 5 Brother CAD (coronary artery disease) age 59 Diabetes Mother No problems noted. Surgical History History of bilateral knee replacement History of left heart catheterization (~2002) History of open reduction and internal fixation (ORIF) procedure History of right hip replacement Social History household members: none Smoking Status: Former smoker alcohol intake: current alcohol intake frequency: a few times a week substance use type: does not use ROS ROS ED Constitutional Constitutional ED: Denies chills or fever(s) Eyes Eyes: Denies change in vision ENT ENT ED: Denies rhinorrhea or sore throat Cardiovascular Cardiovascular: Denies chest pain or palpitations Respiratory/Chest Respiratory/Chest: Denies cough or dyspnea Gastrointestinal Gastrointestinal: Reports abdominal pain, diarrhea and nausea; Denies vomiting Genitourinary Genitourinary ED: Denies dysuria Musculoskeletal Musculoskeletal: Denies back pain or extremity pain Integumentary Denies Abrasions or rash Neurologic Neurologic: Denies headache(s) or weakness Psychiatric Psychiatric: Denies anxiety or depression Allergic/Immunologic Allergic/Immunologic ED: Denies lip swelling or urticaria EXAM Physical Exam Const Vital Signs: 02/13/23 11:24 Temperature 97.8 F Temperature Source Temporal Pulse Rate 65 Respiratory Rate 18 Blood Pressure 99/54 L Blood Pressure Mean 69 Pulse Ox 92 Oxygen Delivery Method Room Air Positive well nourished and well developed General Appearance ED: well developed HEENT Reports normocephalic and head/scalp atraumatic Eyes PERRL and EOMs intact bilaterally Neck supple Chest Wall inspection of chest normal and palpation of chest normal Resp normal respiratory effort and clear to auscultation bilaterally Cardio regular rate and regular rhythm GI GI Narrative: Mild epigastric tenderness to palpation. No guarding or rebound. Hypoactive bowel sounds noted throughout. Palpation: soft Extremity normal to inspection Neuro oriented x3 and no sensory deficits noted Sensorium / Orientation: alert Motor Exam: strength 5/5 throughout Psych mental status grossly normal Skin no rashes or lesions noted MDM MDM MDM Narrative Medical decision making narrative: Patient's blood pressure is noted to be low on arrival in the 80s and 90s systolic. Patient states that she was recently in the hospital secondary to hypertension and had her medications adjusted. Patient is given IV fluids. Labwork obtained to evaluate for leukocytosis, anemia, and electrolyte derangement. History & Record Review Discussion w/independent historian: Patient and Significant other Lab Data Attestation: I reviewed the patient's lab results. Labs: Laboratory Results - last 24 hr 02/13/23 12:30 WBC 16.8 H RBC 4.43 Hgb 13.4 Hct 43.4 MCV 98.0 MCH 30.2 MCHC 30.9 L RDW Std Deviation 45.9 H RDW Coeff of Mark 12.9 Plt Count 292 MPV 8.9 Immature Gran % (Auto) 0.600 Neut % (Auto) 83.5 H Lymph % (Auto) 5.4 L [place] % (Auto) 7.9 Eos % (Auto) 2.1 Baso % (Auto) 0.5 Absolute Neuts (auto) 14.0 H Absolute Lymphs (auto) 0.91 Nucleated RBC % 0 Sodium 139 Potassium 4.2 Chloride 107 Carbon Dioxide 27.0 Anion Gap 5 BUN 26 H Creatinine 1.24 H Estim Creat Clear Calc 29.27 Est GFR (MDRD) Af Amer 53 L Est GFR (MDRD) Non-Af 44 L BUN/Creatinine Ratio 21.0 H Glucose 131 H Calcium 9.0 Total Bilirubin 0.40 Direct Bilirubin 0.11 AST 18 ALT 15 Alkaline Phosphatase 72 Total Protein 6.5 Albumin 3.4 Globulin 3.1 Lipase 51 Radiography Diagnostic Testing: Clinical Impression(s) from Imaging Studies Abdomen/Pelvis CT 02/13/23 13:28 IMPRESSION: Fatty infiltration of the liver. Stable simple and complex cysts in the left kidney. Fluid-filled colon more prominent in the left hemicolon. Limited evaluation of pelvic structures due to bilateral hip prosthesis producing beam hardening artifact. Electronically Signed: Lasha Powell MD at 14:11 EDT , Treatment and Re-Evaluation :: CBC was a white count of 16.8 with 83% neutrophils. Hemoglobin is 13.4. Chemistry studies reveal BUN 26 and creatinine 1.24, slightly elevated above her baseline. Glucose is 131. LFTs and lipase are unremarkable. Given the patient's hypotension and abdominal pain with elevated white count a CT scan of the abdomen pelvis was obtained. This reveals fluid-filled colon on the left. No significant gallbladder changes. After liter of IV fluids blood pressure is currently 151/63. Patient is tolerating p.o. without difficulty. I asked her to monitor her blood pressure at home. She will be discharged to follow-up with her PCP and bland diet. Discharge Plan Triage Chief Complaint: Abd Pain ED Provider: Alis Sorenson Dx/Rx/DC Orders Clinical Impression: Abdominal pain Instructions: ED Abdominal Pain Unkn Cause Fem Prescriptions: No Action venlafaxine 150 mg capsule,extended release 24hr 75 mg PO DAILY budesonide-formoterol 160-4.5 mcg/actuation Hfa Aerosol Inhaler 2 puff INHALATION BID metoprolol succinate 50 mg tablet extended release 24 hr 50 mg PO DAILY Patient Comments: TAKE 1 TABLET BY MOUTH ONCE DAILY WITH SUPPER ondansetron 4 mg tablet,disintegrating 4 mg PO Q8H PRN (Reason: nausea and vomiting) Qty: 10 0RF buprenorphine 7.5 mcg/hour patch weekly 1 patch transdermal Q7D Rx Instructions: applied Monday01/22/23 pantoprazole [Protonix] 40 mg tablet,delayed release (DR/EC) 40 mg PO DAILY Qty: 30 2RF Primary Care Provider: Sergio Bailey Referrals: Sergio Bailey MD [Primary Care Provider] - 3-5 Days if not improving Disposition Disposition: Home, Self Care
[2023-02-13] MEDS: 0.9% Normal Saline 1,000 ML 1000 ML IV (13:39)
[2023-02-13 15:15] VITALS: BP 165/60; RESP 18; O2SAT 97
== END 2023-02-13 15:16 | disposition home or self-care (01) ==
PROVIDERS: Emergency Provider Emergency Medicine; PCP Family Medicine; Visit Provider Emergency Medicine
DX: R10.9 Unspecified abdominal pain (principal); J44.9 Chronic obstructive pulmonary disease, unspecified; Z87.891 Personal history of nicotine dependence; F32.9 Major depressive disorder, single episode, unspecified; Z79.899 Other long term (current) drug therapy; Z79.51 Long term (current) use of inhaled steroids; K21.9 Gastro-esophageal reflux disease without esophagitis; Z96.653 Presence of artificial knee joint, bilateral; Z96.641 Presence of right artificial hip joint
CPT/HCPCS: 74177; 80048; 80076; 83690; 85025; 99285; Q9967

== ENCOUNTER 2023-02-14 16:37 | Emergency (ER) | payer MEDICARE, SELFPAY ==
[2023-02-14 16:38] VITALS: BP 127/69; PULSE 48; RESP 18; TEMP 36.2; O2SAT 96
[2023-02-14 17:54] VITALS: BMI 19.5
[2023-02-14 18:08] LABS: Absolute Lymphocyte Count 1.46 X10^3/uL (0.83-4.51); Absolute Neutrophil Count 12.9 X10^3/uL (2.0-7.7); Basophil# 0.06 X10^3/uL; Basophil% 0.4 % (0-1); Eosinophil# 0.18 X10^3/uL; Eosinophils% 1.1 % (0-5); Hematocrit 36.4 % (37-47); Hemoglobin 11.4 g/dL (12.0-15.0); Lymphocyte # 1.46 X10^3/ul (0.83-4.51); Lymphocyte % 9.1 % (19-41); Mean Corp Hgb Conc 31.3 g/dL (32-36); Mean Corpuscular Hgb 30.2 pg (27.0-32.0); Mean Corpuscular Volume 96.6 fL (81-99); Mean Platelet Vol. 8.9 fl (6.2-12.0); Monocyte# 1.33 X10^3/uL; Monocyte% 8.3 % (0-10); NRBC Flagged by Analyzer 0 % (0-5); Neutrophil # 12.94 X10^3/uL (2.7-7.7); Neutrophil % 80.4 % (47-70); Platelet Count 245 K/mm3 (150-450); RBC Distribution Width CV 13.2 % (11.6-14.6); RBC Distribution Width SD 46.6 fl (35.1-43.9); Red Blood Count 3.77 M/mm3 (4.2-5.4); White Blood Count 16.1 K/mm3 (4.4-11.0)
[2023-02-14 18:29] LABS: Anion Gap 4 (5-15); BUN 19 mg/dL (7-18); Calcium,Total 9.1 mg/dL (8.5-10.1); Chloride 107 mmol/L (98-107); Creatinine, Serum 0.86 mg/dL (0.55-1.02); EST Glomerular Filtration Rate 67 mL/min (>60); Est Glom Filt Rate - Afr Amer 81 mL/min (>60); Estimated Creatinine Clearance 42.28 ml/min; Glucose 105 mg/dL (74-106); Potassium 3.8 mmol/L (3.5-5.1); Sodium Level 139 mmol/L (136-145)
--- NOTE | 2023-02-14 18:29 | EKG12_ITS ---
Test Reason : GI BLEED Blood Pressure : / mmHG Vent. Rate : 073 BPM Atrial Rate : 073 BPM P-R Int : 180 ms QRS Dur : 082 ms QT Int : 408 ms P-R-T Axes : 056 060 120 degrees QTc Int : 449 ms Sinus rhythm with Premature atrial complexes Left ventricular hypertrophy with repolarization abnormality ( Sokolow-Jacob ) Abnormal ECG Confirmed by NORM HUGHES ([id number]), assistant film editor ALLEN HAHN ([id number]) on 02/16/2023 11:20:09 AM Referred By: ROBERT Confirmed By:NORM HUGHES
--- NOTE | 2023-02-14 18:48 | EX.ED.DYSGE1 ---
HPI History of Present Illness Chief Complaint: GI Bleed Informant: patient Narrative Narrative: Patient is an 82-year-old female presenting with bright red blood per rectum. Patient was actually seen in our ER yesterday for 4 to 5 days of epigastric abdominal pain. She describes as a burning sensation. Her daughter states she has a longstanding history of acid reflux symptoms and has daily vomiting. She also gets a lot of headaches. Today patient's which is feeling weak and had her nausea and a headache this morning. She took a nap on the couch and when she woke up she went to the bathroom and noticed that she had had diarrhea as well as bright red blood per rectum. She states there is clumps of blood. She continued to bleed from her rectum. She continues have epigastric abdominal pain. She saw GI what looks like in 2019 where she had an upper and lower endoscopy which showed signs of esophageal candidiasis and erythematous mucosa in the antrum, patient was treated with Protonix and Diflucan. She notes for the past months she is also been having issues with dysuria and urgency however she has had a normal urinalysis. She follows with urology, Dr. Nava. Does feel cough and the bleeding is coming from her rectum and not her vagina or her urethra. Denies any history of GI bleeding. Is not on any blood thinners. Daughter does note that since patient is frequent headaches she takes a lot of Excedrin is wondering if that is causing inflammation in her stomach/her symptoms. [facility] Medical History Back pain Chronic headaches COPD (chronic obstructive pulmonary disease) DVT (deep venous thrombosis) GERD (gastroesophageal reflux disease) Glaucoma Iron deficiency anemia Major depressive disorder Neoplasm of kidney Occipital neuralgia of right side Osteoarthritis Spondylosis Vitamin D deficiency Home Medications venlafaxine 150 mg capsule,extended release 24 hr 75 mg PO DAILY mental health 01/09/19 [History Last Taken Unknown] budesonide-formoterol HFA 160 mcg-4.5 mcg/actuation aerosol inhaler 2 puff inhalation BID breathing 05/01/21 [History Last Taken Unknown] metoprolol succinate 50 mg tablet,extended release 24 hr 50 mg PO DAILY blood pressure 03/03/22 [History Last Taken Unknown] ondansetron 4 mg disintegrating tablet 4 mg PO Q8H PRN nausea and vomiting #10 tabs 03/03/22 [Rx Last Taken Unknown] buprenorphine 7.5 mcg/hour weekly transdermal patch 1 patch transdermal Q7D pain 01/25/23 [History Last Taken Unknown] pantoprazole 40 mg tablet,delayed release (Protonix) 40 mg PO DAILY #30 tabs 01/27/23 [Rx Last Taken Unknown] Allergy/AdvReac Type Severity Reaction Status Date / Time duloxetine [From Cymbalta] AdvReac NEEDS Verified 02/14/23 16:42 FOLLOW-UP Family History Father CAD (coronary artery disease) CABG x 5 Brother CAD (coronary artery disease) age 59 Diabetes Mother No problems noted. Surgical History History of bilateral knee replacement History of left heart catheterization (~2002) History of open reduction and internal fixation (ORIF) procedure History of right hip replacement Social History household members: none Smoking Status: Former smoker alcohol intake: current alcohol intake frequency: a few times a week substance use type: does not use ROS ROS ED Constitutional Constitutional ED: Reports other Details: Fatigue ; Denies chills or fever(s) Cardiovascular Cardiovascular: Denies chest pain Respiratory/Chest Respiratory/Chest: Denies cough Gastrointestinal Gastrointestinal: Reports abdominal pain, nausea, vomiting and other Details: Bright red blood per rectum ; Denies constipation or diarrhea Musculoskeletal Musculoskeletal: Denies arthralgias or myalgias Integumentary Denies rash Neurologic Neurologic: Reports headache(s) Psychiatric Psychiatric: Denies anxiety Hematologic/Lymphatic Hematologic/Lymphatic: Denies easy bleeding or easy bruising EXAM Physical Exam Const Vital Signs: 02/14/23 16:38 02/14/23 19:21 02/14/23 22:27 Temperature 97.1 F L Temperature Source Temporal Pulse Rate 48 L 77 78 Respiratory Rate 18 18 18 Blood Pressure 127/69 H 133/59 H 118/79 Blood Pressure Mean 88 83 92 Pulse Ox 96 95 95 Oxygen Delivery Method Room Air Room Air Positive well nourished and well developed General Appearance ED: well developed and NAD; Negative for pallor HEENT Reports moist mucous membranes Eyes PERRL General Eye ED: Negative for pale conjunctiva Neck supple Chest Wall inspection of chest normal and palpation of chest normal Resp normal respiratory effort and clear to auscultation bilaterally Cardio regular rate, regular rhythm and no murmurs GI normal to inspection, nondistended, normoactive bowel sounds GI Narrative: Bright red blood with no clots on rectal exam Palpation: tender epigastric; Negative for guarding Neuro oriented x3 Sensorium / Orientation: alert Psych mental status grossly normal Skin no rashes or lesions noted General Skin Exam: Negative for pallor MDM MDM MDM Narrative Medical decision making narrative: Patient is evaluated for continued epigastric abdominal pain as well as bright red blood per rectum. She appears nontoxic and in no acute distress. Vital signs initially significant only for mild bradycardia however that resolved without any intervention. She was actually seen in the ER for abdominal pain yesterday. Her labs show stable leukocytosis of 16.1 (16.8 yesterday). She does have an acute anemia with a hemoglobin 11.4. She was 13.4 yesterday. Her lactate is normal. With a 2 g drop in her hemoglobin in the setting of bright red blood on rectal exam I am concerned that she has a brisk GI bleed. She does have a normal BUN to creatinine ratio however this could be normal with a brisk upper GI bleed. All of her symptoms are more epigastric in nature however the bleeding is more indicative of a lower GI bleed. Empirically she started on Protonix. We do not currently have GI coverage and after discussing the case with surgery on-call, she felt that the patient be better suited at a facility with GI on-call in case she does become an unstable GI bleed. Patient request to go to [facility]. Case is discussed with sound physician, Dr. Huerta. Patient remains hemodynamically stable in the ER. Admitting physician did asked that I perform a repeat H&H if she was still here at the 6-hour abdirahman. Patient was transferred prior to this however. While in the emergency room patient continues to complain of a headache. I do not want to give her NSAIDs due to her bleeding and concern that she could have bleeding associated with her high use of Excedrin. In addition I do want to give her anything by mouth. She initially is given IV fluids, Benadryl and Reglan however she does not have improvement with this. She is then given IV Compazine. History & Record Review Discussion w/independent historian: Patient Additional record(s) reviewed:: Prior inpatient record (EGD-no varices) Lab Data Attestation: I reviewed the patient's lab results. Labs: Laboratory Results - last 24 hr 02/14/23 02/14/23 02/14/23 17:34 17:35 19:01 WBC 16.1 H RBC 3.77 L Hgb 11.4 L Hct 36.4 L MCV 96.6 MCH 30.2 MCHC 31.3 L RDW Std Deviation 46.6 H RDW Coeff of Mark 13.2 Plt Count 245 MPV 8.9 Immature Gran % (Auto) 0.700 Neut % (Auto) 80.4 H Lymph % (Auto) 9.1 L [place] % (Auto) 8.3 Eos % (Auto) 1.1 Baso % (Auto) 0.4 Absolute Neuts (auto) 12.9 H Absolute Lymphs (auto) 1.46 Nucleated RBC % 0 Sodium 139 Potassium 3.8 Chloride 107 Carbon Dioxide 28.0 Anion Gap 4 L BUN 19 H Creatinine 0.86 Estim Creat Clear Calc 42.28 Est GFR (MDRD) Af Amer 81 Est GFR (MDRD) Non-Af 67 BUN/Creatinine Ratio 22.0 H Glucose 105 Lactic Acid 1.0 Calcium 9.1 Lipase 20 Urine Color Urine Clarity Urine pH Ur Specific [place] Urine Protein Urine Glucose (UA) Urine Ketones Urine Occult Blood Urine Nitrite Urine Bilirubin Urine Urobilinogen Ur Leukocyte Esterase Urine RBC Urine WBC Ur Squamous Epith Cells Urine Bacteria Urine Mucus Antibody Screen NEGATIVE 02/14/23 21:19 WBC RBC Hgb Hct MCV MCH MCHC RDW Std Deviation RDW Coeff of Mark Plt Count MPV Immature Gran % (Auto) Neut % (Auto) Lymph % (Auto) [place] % (Auto) Eos % (Auto) Baso % (Auto) Absolute Neuts (auto) Absolute Lymphs (auto) Nucleated RBC % Sodium Potassium Chloride Carbon Dioxide Anion Gap BUN Creatinine Estim Creat Clear Calc Est GFR (MDRD) Af Amer Est GFR (MDRD) Non-Af BUN/Creatinine Ratio Glucose Lactic Acid Calcium Lipase Urine Color Yellow Urine Clarity Clear Urine pH 6.0 Ur Specific [place] 1.015 Urine Protein 15 H Urine Glucose (UA) Normal Urine Ketones 15 H Urine Occult Blood 150 H Urine Nitrite Negative Urine Bilirubin Negative Urine Urobilinogen Normal Ur Leukocyte Esterase 100 H Urine RBC 0-5 SEEN Urine WBC 0-5 SEEN Ur Squamous Epith Cells 0 SEEN Urine Bacteria RARE Urine Mucus 0 SEEN Antibody Screen Rhythm Strip Rhythm Strip: Sinus Rhythm Rate: 73 Ectopy: None EKG Initial EKG: Attestation: I personally reviewed and interpreted this EKG as follows: Interpretation: Sinus Rhythm Comments: Sinus rhythm with PACs at a rate of 73 bpm Normal axis Normal intervals LVH with repolarization abnormality No change compared to prior EKG Management Discussion w/another healthcare provider: 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 Discharge Plan Triage Chief Complaint: GI Bleed Other Complaint: Complaint ED Provider: Hailee De Leon Dx/Rx/DC Orders Clinical Impression: Acute anemia, Headache, BRBPR (bright red blood per rectum) Prescriptions: No Action venlafaxine 150 mg capsule,extended release 24hr 75 mg PO DAILY budesonide-formoterol 160-4.5 mcg/actuation Hfa Aerosol Inhaler 2 puff INHALATION BID metoprolol succinate 50 mg tablet extended release 24 hr 50 mg PO DAILY Patient Comments: TAKE 1 TABLET BY MOUTH ONCE DAILY WITH SUPPER ondansetron 4 mg tablet,disintegrating 4 mg PO Q8H PRN (Reason: nausea and vomiting) Qty: 10 0RF buprenorphine 7.5 mcg/hour patch weekly 1 patch transdermal Q7D Rx Instructions: applied Monday01/22/23 pantoprazole [Protonix] 40 mg tablet,delayed release (DR/EC) 40 mg PO DAILY Qty: 30 2RF Primary Care Provider: Sergio Bailey Referrals: Sergio Bailey MD [Primary Care Provider] - Disposition Disposition: Acute Care Hospital Discharge Location: [facility] Discharge Date/Time: 02/14/23 22:00
[2023-02-14] MEDS: DiphenhydrAMINE 50 MG/ML Syringe 25 MG IV (18:58)
[2023-02-14] MEDS: Metoclopramide 10 MG/2 ML Vial 2.5 MG IV (18:58)
[2023-02-14] MEDS: Ondansetron 4 MG/2 ML Vial IV (18:58)
[2023-02-14] MEDS: 0.9% Normal Saline 1,000 ML 125 ML IV (18:58)
[2023-02-14 19:19] LABS: Lipase 20 U/L (13-75)
[2023-02-14 19:21] VITALS: BP 133/59; PULSE 77; RESP 18; O2SAT 95
[2023-02-14 21:24] LABS: Mucous, Urine 0 SEEN /hpf (<or=2+); Squamous Epithelial Cells - UA 0 SEEN /hpf (5-10)
[2023-02-14 21:29] LABS: Color, Urine Yellow (Yellow); Glucose, Dipstick Normal (Normal); Ketone-Dipstick 15 mg/dl (Negative); Leukocyte Esterase-Dipstick 100 /ul (Negative); Nitrite-Dipstick Negative (Negative); Occult Blood-Urine 150 /ul (Negative); Protein-Dipstick 15 mg/dl (Negative); Specific Gravity, Urine 1.015 (1.002-1.030); Urine Bilirubin Dipstick Negative (Negative); Urine Clarity Clear (Clear); Urine Urobilinogen Normal (Normal)
[2023-02-14] MEDS: proCHLORPERazine 10 MG/2 ML Vial IV (21:33)
[2023-02-14 21:50] LABS: Bacteria RARE /hpf (None Seen); Red Blood Cells-Urine 0-5 SEEN /hpf (0-5); White Blood Cells 0-5 SEEN /hpf (0-5)
[2023-02-14 22:27] VITALS: BP 118/79; PULSE 78; RESP 18; O2SAT 95
--- NOTE | 2023-02-14 22:28 | ED.RN ---
2200- Called to give report. Staffed stated that they would call back. ER phone number given. Awaiting phone call.
--- NOTE | 2023-02-14 23:00 | ED.RN ---
Report given to Mitchell from [facility].
== END 2023-02-14 22:00 | disposition short-term general hospital (02) ==
LOC: ED 19:04
PROVIDERS: Emergency Provider Emergency Medicine; PCP Family Medicine; Visit Provider Emergency Medicine
DX: K62.5 Hemorrhage of anus and rectum (principal); R10.13 Epigastric pain; D62 Acute posthemorrhagic anemia; R51.9 Headache, unspecified; Z87.891 Personal history of nicotine dependence
CPT/HCPCS: 80048; 81001; 83605; 83690; 85025; 86850; 86900; 86901; 87086; 87088; 93005; 96365; 96375; 99285; J7030; A4216; J2405; J3490

== ENCOUNTER → 2023-05-11 | Outpatient (CLI) | payer MEDICARE, SELFPAY ==
[2023-05-11 17:34] LABS: Absolute Lymphocyte Count 1.53 X10^3/uL (0.83-4.51); Absolute Neutrophil Count 3.1 X10^3/uL (2.0-7.7); Basophil# 0.06 X10^3/uL; Basophil% 1.1 % (0-1); Eosinophil# 0.43 X10^3/uL; Eosinophils% 7.6 % (0-5); Hematocrit 40.5 % (37-47); Hemoglobin 12.3 g/dL (12.0-15.0); Lymphocyte # 1.53 X10^3/ul (0.83-4.51); Lymphocyte % 27.1 % (19-41); Mean Corp Hgb Conc 30.4 g/dL (32-36); Mean Corpuscular Hgb 29.9 pg (27.0-32.0); Mean Corpuscular Volume 98.3 fL (81-99); Mean Platelet Vol. 8.9 fl (6.2-12.0); Monocyte# 0.56 X10^3/uL; Monocyte% 9.9 % (0-10); NRBC Flagged by Analyzer 0 % (0-5); Neutrophil # 3.06 X10^3/uL (2.7-7.7); Neutrophil % 54.1 % (47-70); Platelet Count 303 K/mm3 (150-450); RBC Distribution Width CV 13.3 % (11.6-14.6); RBC Distribution Width SD 48.7 fl (35.1-43.9); Red Blood Count 4.12 M/mm3 (4.2-5.4); White Blood Count 5.7 K/mm3 (4.4-11.0)
[2023-05-11 17:53] LABS: Erythrocyte Sedimentation Rate 5 mm/hr (0-30)
[2023-05-11 17:56] LABS: ALB/GLOB Ratio 1.2 RATIO (0.9-2.4); AST(SGOT) 16 U/L (15-37); Alanine Aminotransfer ALT/SGPT 15 U/L (13-56); Albumin, Serum 3.8 g/dL (3.2-5.0); Alkaline Phosphatase 58 U/L (45-117); Anion Gap 7 (5-15); BUN 20 mg/dL (7-18); BUN/Creat Ratio 21.7 RATIO (10-20); CRP < 2.90 mg/L (0.0-3.0); Calcium,Total 9.3 mg/dL (8.5-10.1); Chloride 101 mmol/L (98-107); Creatinine, Serum 0.92 mg/dL (0.55-1.02); EST Glomerular Filtration Rate 62 mL/min (>60); Est Glom Filt Rate - Afr Amer 75 mL/min (>60); Globulin 3.1 g/dL (2.2-4.2); Glucose 106 mg/dL (74-106); Lipase 32 U/L (13-75); Potassium 4.2 mmol/L (3.5-5.1); Protein, Total 6.9 g/dL (6.4-8.2); Sodium Level 136 mmol/L (136-145)
== END | disposition home or self-care (01) ==
LOC: MFPLAB 15:01
PROVIDERS: PCP Family Medicine; Visit Provider Family Medicine
DX: K55.1 Chronic vascular disorders of intestine (principal)
CPT/HCPCS: 36415; 80053; 83690; 85025; 85652; 86140

== ENCOUNTER 2023-06-21 21:36 | Inpatient (IN) | payer MEDICARE, SELFPAY ==
[2023-06-21 21:36] VITALS: BP 159/70; PULSE 88; RESP 18; TEMP 37.2; O2SAT 95; BMI 19.3
--- NOTE | 2023-06-21 21:46 | EDS_ITS ---
HPI History of Present Illness Chief Complaint: Lower Extremity Injury Narrative Narrative: 83-year-old female past medical history of chronic back pain, hypertension, had bilateral knee replacements presents with right knee pain and swelling that began earlier today. She states yesterday everything was fine. She is unable to bear weight or put any pressure on her right leg. She has difficulty moving her right leg secondary to pain. She denies any fevers or chills, no nausea or vomiting. No discoloration of her right knee. More importantly, she denies any trauma or falls to her right knee. She is having pain just above her right kneecap on the proximal portion of her lateral collateral ligament. [facility] Medical History Back pain Chronic headaches COPD (chronic obstructive pulmonary disease) DVT (deep venous thrombosis) GERD (gastroesophageal reflux disease) Glaucoma Iron deficiency anemia Major depressive disorder Neoplasm of kidney Occipital neuralgia of right side Osteoarthritis Spondylosis Vitamin D deficiency Home Medications budesonide-formoterol HFA 160 mcg-4.5 mcg/actuation aerosol inhaler 2 puff inhalation BID breathing 05/01/21 [History Last Taken Unknown] albuterol sulfate 90 mcg/actuation aerosol inhaler 2 puff inhalation Q4H PRN 06/06/23 [History Last Taken Unknown] citalopram 20 mg tablet 20 mg PO DAILY 06/06/23 [History Last Taken Unknown] ondansetron 4 mg disintegrating tablet 8 mg PO Q8H PRN nausea and vomiting 06/06/23 [History Last Taken Unknown] oxybutynin chloride 10 mg tablet,extended release 24 hr 10 mg PO DAILY 06/06/23 [History Last Taken Unknown] pantoprazole 40 mg tablet,delayed release (Protonix) 20 mg PO DAILY 06/06/23 [History Last Taken Unknown] ramipril 2.5 mg capsule 2.5 mg PO DAILY 06/06/23 [History Last Taken Unknown] vit B complex 100 combo no.2 100 mg tablet,extended release (B-100 Complex ER) tab PO 06/06/23 [History Last Taken Unknown] hydrocodone-acetaminophen 5-325mg 5mg-325mg 1 tab PO Q8H pain 06/21/23 [History Last Taken Unknown] Allergy/AdvReac Type Severity Reaction Status Date / Time No Known Allergies Allergy Verified 06/21/23 21:42 Family History Father CAD (coronary artery disease) CABG x 5 Brother CAD (coronary artery disease) age 59 Diabetes Mother No problems noted. Surgical History History of bilateral knee replacement History of left heart catheterization (~2002) History of open reduction and internal fixation (ORIF) procedure History of right hip replacement Social History household members: none Smoking Status: Former smoker alcohol intake: current alcohol intake frequency: a few times a week substance use type: does not use ROS ROS ED ROS Narrative Constitutional: No fever, no chills. HEENT: No sore throat. No neck pain. No loss of vision. No rhinorrhea. Cardiovascular: No chest pain. No palpitations. No pedal edema. Respiratory: No cough, no shortness of breath. Abdominal: No abdominal pain. No nausea. No vomiting. Genitourinary: No dysuria. No hematuria. Musculoskeletal: No myalgias. Right proximal, lateral knee pain. Neurologic: No headaches. No dizziness. No lightheadedness. Skin: No rash. No change in color. Psychiatric: No depression. No anxiety. EXAM Physical Exam Narrative Exam Narrative: Afebrile. Vital signs noted. Regular rate and rhythm. Lungs clear to auscultation bilaterally. Abdomen soft and nontender. Mild swelling of right knee with decreased range of motion secondary to pain. Neurovascularly intact distally with palpable dorsalis pedis pulse. No erythema or ecchymosis. No warmth. Const Vital Signs: 06/21/23 21:36 Temperature 99 F Temperature Source Temporal Pulse Rate 88 Respiratory Rate 18 Blood Pressure 159/70 H Blood Pressure Mean 99 Pulse Ox 95 Oxygen Delivery Method Room Air MDM MDM MDM Narrative Medical decision making narrative: Patient took 2 hydrocodone-acetaminophen tablets 1 hour prior to arrival. She states she was hoping for x-rays of the right knee. I do feel that these are indicated to rule out fracture versus effusion. Low on the differential is septic arthritis as she does not have fever, nor does she have erythema or warmth to the area. She states she lives at home with her . Initially, while I do not feel that lab work is indicated for her right knee pain, it may need to be drawn should she require observation/admission for placement as she states she is unable to ambulate at all. X-rays of the right knee and 4 views interpreted by myself independently shows no evidence of periprosthetic fracture. I reviewed the radiology report which confirms my independent interpretation. Additionally, they comment on large joint effusion. I do not feel that emergent arthrocentesis is indicated. At this point in time, in discussion with the patient and her daughter, she is unable to ambulate secondary to the pain in her right knee. I will obtain baseline laboratories including CBC, BMP, and UA. Saline lock was inserted and she was administered morphine 4 mg intravenously for analgesia. I will discuss patient with the hospitalist for at least observation as I feel she requires PT/OT eval. Patient is in stable condition. I reviewed her laboratory work, and she has a hemoglobin low at 6.7 when compared to previous in May which was normal. She denies any bleeding diathesis, no hematemesis, no bright red blood per rectum or dark stool. However, she does endorse fatigue over the last few days. She also relates history now that she had an MRI performed of her back yesterday, and she had a low blood pressure at that time. Currently, she has elevated blood pressure of 159/70. Of note, her daughter relates history that she had bleeding in December, and was sent to [facility] and diagnosed with ischemic colitis. She does not take blood thinners currently. Chaperoned rectal examination was performed and she had normal colored stool and no evidence of gross blood. She will be consented and typed and screened/crossmatched for 2 units of packed red blood cells. I discussed patient with Dr. Aldana for admission. He requested that I speak with Dr. Bonilla with gastroenterology. Disposition is admit in stable condition. History & Record Review Discussion w/independent historian: Patient and Family Additional record(s) reviewed:: Prior labs Lab Data Attestation: I reviewed the patient's lab results. Labs: Laboratory Results - last 24 hr 06/21/23 22:53 WBC 8.9 RBC 2.18 L Hgb 6.7 L Hct 21.5 L MCV 98.6 MCH 30.7 MCHC 31.2 L RDW Std Deviation 52.3 H RDW Coeff of Mark 14.6 Plt Count 237 MPV 9.1 Immature Gran % (Auto) 0.300 Neut % (Auto) 70.9 H Lymph % (Auto) 18.9 L Jay % (Auto) 8.1 Eos % (Auto) 1.2 Baso % (Auto) 0.6 Absolute Neuts (auto) 6.3 Absolute Lymphs (auto) 1.68 Nucleated RBC % 0 Sodium 140 Potassium 3.8 Chloride 106 Carbon Dioxide 26.0 Anion Gap 8 BUN 27 H Creatinine 0.89 Estim Creat Clear Calc 39.92 Est GFR (MDRD) Af Amer 78 Est GFR (MDRD) Non-Af 64 BUN/Creatinine Ratio 30.3 H Glucose 97 Calcium 8.9 Radiography Diagnostic Testing: Clinical Impression(s) from Imaging Studies Knee X-Ray 06/21/23 21:47 IMPRESSION: Total right knee arthroplasty without evidence of failure. Large joint effusion at the knee. Electronically Signed: Flavio Spicer MD at 22:25 EST , Discharge Plan Dx/Rx/DC Orders Clinical Impression: Inability to ambulate due to right knee, Acute pain of right knee, History of total knee arthroplasty, Anemia requiring transfusions Disposition Disposition: [facility]
--- NOTE | 2023-06-21 21:47 | RAD_ITS ---
INDICATION: Pain EXAMINATION/TECHNIQUE: X-RAY - RIGHT XR Knee Complete 4 Views or More 4 VIEWS COMPARISON: No relevant prior comparison study available FINDINGS: SOFT TISSUES: No soft tissue swelling or gas. No radiopaque foreign body. BONES/JOINTS: Total right knee arthroplasty. The femoral component articulates appropriately with the tibial and patellar components. No periprosthetic lucency or fracture. Large joint effusion. RAD/Knee 4 or More Views IMPRESSION: Total right knee arthroplasty without evidence of failure. Large joint effusion at the knee. Electronically Signed: Flavio Spicer MD at 22:25 EST ,
[2023-06-21] MEDS: Ondansetron 4 MG/2 ML Vial IV (22:57)
[2023-06-21] MEDS: Morphine 4 MG/ML Syringe IV (22:59)
[2023-06-21 23:01] LABS: Absolute Lymphocyte Count 1.68 X10^3/uL (0.83-4.51); Absolute Neutrophil Count 6.3 X10^3/uL (2.0-7.7); Basophil# 0.05 X10^3/uL; Basophil% 0.6 % (0-1); Eosinophil# 0.11 X10^3/uL; Eosinophils% 1.2 % (0-5); Hematocrit 21.5 % (37-47); Hemoglobin 6.7 g/dL (12.0-15.0); Lymphocyte # 1.68 X10^3/ul (0.83-4.51); Lymphocyte % 18.9 % (19-41); Mean Corp Hgb Conc 31.2 g/dL (32-36); Mean Corpuscular Hgb 30.7 pg (27.0-32.0); Mean Corpuscular Volume 98.6 fL (81-99); Mean Platelet Vol. 9.1 fl (6.2-12.0); Monocyte# 0.72 X10^3/uL; Monocyte% 8.1 % (0-10); NRBC Flagged by Analyzer 0 % (0-5); Neutrophil # 6.29 X10^3/uL (2.7-7.7); Neutrophil % 70.9 % (47-70); Platelet Count 237 K/mm3 (150-450); RBC Distribution Width CV 14.6 % (11.6-14.6); RBC Distribution Width SD 52.3 fl (35.1-43.9); Red Blood Count 2.18 M/mm3 (4.2-5.4); White Blood Count 8.9 K/mm3 (4.4-11.0)
--- NOTE | 2023-06-21 23:07 | HP.PCM.HOS_ITS ---
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 Ms. Prajapati reports her symptoms began approximately 1 day prior to admission with the abrupt onset of right knee pain and swelling that caused her to have difficulty with ambulation. She is unable to bear weight or put any pressure at all on her right leg due to pain with minimal movement. She denies fever, chills, nausea, vomiting, blood in stool, blood in urine, obvious bleeding of any type, discoloration of her right knee or any recent trauma to her right knee. She states she is having pain just above her right kneecap on the proximal portion of her lateral collateral ligament. Her daughter was at the bedside in the ER and helped to augment the history with the patient stating she thinks she had her last colonoscopy approximately 1 year ago, but she is not sure. In the ER she was noted to have severe acute blood loss anemia requiring transfusion with a hemoglobin of 6.7 g/dL present on admission along with Hemoccult positive stools in the setting of known iron deficiency anemia complicated by laboratory evidence of acute cystitis; without hematuria and radiographic evidence of large effusion of the right knee joint on x-rays this admission concerning for possible underlying infection causing severe right knee pain and ambulatory dysfunction and she was then admitted to the PCU for ongoing care for stay that is expected to be greater than 48 hours. [facility] Medical History Back pain Chronic headaches COPD (chronic obstructive pulmonary disease) DVT (deep venous thrombosis) GERD (gastroesophageal reflux disease) Iron deficiency anemia Major depressive disorder Neoplasm of kidney Occipital neuralgia of right side Osteoarthritis Spondylosis Vitamin D deficiency Home Medications budesonide-formoterol HFA 160 mcg-4.5 mcg/actuation aerosol inhaler 2 puff inhalation BID breathing 05/01/21 [History Last Taken Unknown] albuterol sulfate 90 mcg/actuation aerosol inhaler 2 puff inhalation Q4H PRN 06/06/23 [History Last Taken Unknown] citalopram 20 mg tablet 20 mg PO DAILY 06/06/23 [History Last Taken Unknown] ondansetron 4 mg disintegrating tablet 8 mg PO Q8H PRN nausea and vomiting 1 08/07/22 [History Last Taken Unknown] oxybutynin chloride 10 mg tablet,extended release 24 hr 10 mg PO DAILY 06/06/23 [History Last Taken Unknown] pantoprazole 40 mg tablet,delayed release (Protonix) 20 mg PO DAILY 06/06/23 [History Last Taken Unknown] ramipril 2.5 mg capsule 2.5 mg PO DAILY 06/06/23 [History Last Taken Unknown] vit B complex 100 combo no.2 100 mg tablet,extended release (B-100 Complex ER) tab PO 06/06/23 [History Last Taken Unknown] hydrocodone-acetaminophen 5-325mg 5mg-325mg 1 tab PO Q8H pain 06/21/23 [History Last Taken Unknown] Allergy/AdvReac Type Severity Reaction Status Date / Time No Known Allergies Allergy Verified 06/21/23 21:42 Family History Father CAD (coronary artery disease) CABG x 5 Skin cancer Brother Diabetes CAD (coronary artery disease) age 59 Skin cancer Mother Skin cancer Surgical History History of bilateral knee replacement History of left heart catheterization (~2002) History of open reduction and internal fixation (ORIF) procedure History of right hip replacement Social History household members: none Smoking Status: Former smoker alcohol intake: current alcohol intake frequency: a few times a week substance use type: does not use ROS ROS Narrative Review of systems: Constitutional: Patient denies fevers or chills. Eyes: Patient denies visual changes. ENT: Patient denies runny nose, sore throat or ear pain. Cardiovascular: Patient denies chest pain, chest pressure or palpitations. Respiratory: Patient denies shortness of breath or cough. Abdominal: Patient denies abdominal pain, nausea or vomiting. Genitourinary: Patient denies dysuria, hematuria or urinary frequency but her urinalysis was noted to be positive for infection present on admission. Musculoskeletal: Patient admits to severe proximal and lateral right knee pain made worse with movement but not fully relieved by rest. Neurologic: Patient denies headaches, dizziness or other focal neurologic deficits. Skin: Patient has no evidence of rash at this time. There is no erythema surrounding her right knee. Psychiatric: Patient denies uncontrolled depression or anxiety. Hematologic: Patient admits to having being diagnosed with iron deficiency anemia in the past. Allergic: Patient denies lip swelling, tongue swelling or urticaria. 14 point review systems otherwise negative except for positives noted above in HPI. Vital Signs Vital Signs Vital Signs: 06/21/23 21:36 Temperature 99 F Temperature Source Temporal Pulse Rate 88 Respiratory Rate 18 Blood Pressure 159/70 H Blood Pressure Mean 99 Pulse Ox 95 Oxygen Delivery Method Room Air Weight Weight: 116 lb 6.465 oz Body Mass Index (BMI) 19.3 Physical Exam Narrative Patient is wearing make-up, very mentally sharp and is obviously very well cared for. Const alert, oriented x3, average body habitus and healthy appearing Constitutional Narrative: Patient is complaining of 8 out of 10 pain from her right knee. General Appearance: cooperative HEENT normocephalic, head/scalp atraumatic, hearing grossly normal bilaterally and moist oral mucous membranes Eyes PERRL, EOMs intact bilaterally and conjunctivae normal Neck no lymphadenopathy and supple Resp normal respiratory effort, no retractions, no use of accessory muscles and clear to auscultation bilaterally Cardio regular rate and regular rhythm GI normal to inspection, nondistended, normoactive bowel sounds, soft to palpation, non-tender and non-distended Extremity Extremity Narrative: Patient has moderate swelling of her right knee with decreased range of motion secondary to pain. She is neurovascularly intact distally with palpable dorsalis pedis pulse. There is no signs of erythema, ecchymosis or excessive warmth. Skin Skin Narrative: Patient has no evidence of rash at this time. Neuro oriented x3, CN's II-XII intact bilaterally, moves all extremities and no focal motor deficits Sensorium / Orientation: awake, alert, oriented to person, oriented to place and oriented to time Speech: speech normal Psych affect normal Results Medical Records Data Attestation: I reviewed the patient's medical records Lab / Micro Data Attestation: I reviewed the patient's lab results. 06/21/23 22:53 06/21/23 22:53 Labs: Laboratory Results - last 24 hr 06/21/23 22:53: WBC 8.9, RBC 2.18 L, Hgb 6.7 L, Hct 21.5 L, MCV 98.6, MCH 30.7, MCHC 31.2 L, RDW Std Deviation 52.3 H, RDW Coeff of Mark 14.6, Plt Count 237, MPV 9.1, Immature Gran % (Auto) 0.300, Neut % (Auto) 70.9 H, Lymph % (Auto) 18.9 L, [place] % (Auto) 8.1, Eos % (Auto) 1.2, Baso % (Auto) 0.6, Absolute Neuts (auto) 6.3, Absolute Lymphs (auto) 1.68, Nucleated RBC % 0 Imagaing Radiology Impression Knee X-Ray 06/21/23 21:47 IMPRESSION: Total right knee arthroplasty without evidence of failure. Large joint effusion at the knee. Electronically Signed: Flavio Spicer MD at 22:25 EST Reading Location ID and State: [address] [place] [address] Tel , Service support , Assessment & Plan Assessment/Plan (1) Anemia requiring transfusions: (2) Positive fecal occult blood test: (3) Acute cystitis without hematuria: (4) Inability to ambulate due to right knee: (5) History of total knee arthroplasty: QUALIFIERS: Laterality: right Qualified Code(s): Z96.651 - Presence of right artificial knee joint PLAN: Plan 1. Acute blood loss anemia requiring transfusion with hemoglobin of 6.7 g/dL present on admission and a slightly elevated BUN of 27 mg/dL present on admission with Hemoccult positive stools in the ER - Admit to PCU. Proceed with transfusion of 1 unit of packed red blood cells. Recheck CBC in the a.m. to ensure improvement. Check iron studies, B12 and folate to fully evaluate for the potential causes or contributions to her anemic state. Finally, we will consult gastroenterology to see this patient on rounds in the a.m. for recommendations regarding panendoscopy with help appreciated in advance. 2. Acute cystitis; without hematuria complicating #1 - Start Rocephin 1 g IV daily and await culture and sensitivity data. Give Tylenol as needed mild to moderate level 1-5 out of 10 pain or fever. 3. Severe right knee pain with x-ray evidence of large joint effusion and patient complaining of difficulty ambulating in the setting of previous right total knee replacement compounding #1 & #2 - Check CT scan of the right knee to assess for any signs of potential infection. Finally, we will consult the orthopedist on-call sees patient on rounds in the a.m. for recommendations regarding potential joint aspiration with help appreciated in advance. 4. History of osteoarthritis; status post bilateral total knee replacement and right hip replacement several years ago (~2002) plus spondylosis with chronic back pain syndrome on scheduled hydrocodone 3 times daily adding to the pathology of #1 - #3 - Noted. Continue scheduled hydrocodone as previous. Give Tylenol prn for [id number] level 1-5/10 pain or fever. Give IV Dilaudid prn for severe 6-10/10 pain as she has not responded to multiple doses of IV Morphine and IV Fentanyl. 5. Essential hypertension - Restart home regimen once transfusion is completed. Give IV hydralazine as needed for systolic blood pressure greater than or equal to 160 mmHg. 6. History of previous tobacco abuse; with subsequent COPD - Stable with no evidence of flare at this time. Continue as needed nebulizers. 7. History of DVT - Noted. Patient's D-dimer is slightly elevated at 0.52, but in the normal range when age-adjusted. However, for the sake of completeness we will check Doppler right lower extremity to ensure there is no recurrence of her previous DVT. 8. History of renal neoplasm - Noted. 9. History of right-sided occipital neuralgia; with chronic headaches - Stable. Continue home regimen as previous. 10. Depression - Continue citalopram as previous plus give Xanax as needed for breakthrough symptoms. 11. GERD - Resume PPI. 12. Glaucoma - Noted. 13. DVT prophylaxis - SCD's only in light of #1. Total time: Approximately 55 minutes. Charges/Coding Visit Charges Inpatient E&M: 63722 Init Hosp L2
[2023-06-21 23:14] LABS: Anion Gap 8 (5-15); BUN 27 mg/dL (7-18); BUN/Creat Ratio 30.3 RATIO (10-20); Calcium,Total 8.9 mg/dL (8.5-10.1); Chloride 106 mmol/L (98-107); Creatinine, Serum 0.89 mg/dL (0.55-1.02); EST Glomerular Filtration Rate 64 mL/min (>60); Est Glom Filt Rate - Afr Amer 78 mL/min (>60); Estimated Creatinine Clearance 39.92 ml/min; Glucose 97 mg/dL (74-106); Potassium 3.8 mmol/L (3.5-5.1); Sodium Level 140 mmol/L (136-145)
[2023-06-21 23:59] LABS: Bacteria 0 SEEN /hpf (None Seen); Mucous, Urine 0 SEEN /hpf (<or=2+); Red Blood Cells-Urine 0 SEEN /hpf (0-5); Squamous Epithelial Cells - UA 0 SEEN /hpf (5-10)
--- NOTE | 2023-06-21 23:59 | CON.PCM.GI_ITS ---
HPI Consult Data Date of Consult: 06/21/23 HPI Narrative Reason for Consultation: Anemia HPI Narrative: SANDIE HO, is a 83 F who presents 83 F presents with right knee pain and swelling with difficulty walking. She has a past medical history of essential hypertension, history of tobacco abuse with subsequent COPD, history of DVT, history of renal neoplasm, GERD, glaucoma, chronic iron deficiency anemia and history of osteoarthritis. She is status post bilateral total knee replacement and right hip replacement several years ago (~2002) plus spondylosis with chronic back pain syndrome on scheduled hydrocodone 3 times daily who presents to [facility] ER complaining of right knee pain and swelling with difficulty walking. She reports her symptoms began approximately 1 day prior to admission with the abrupt onset of right knee pain and swelling that caused her to have difficulty with ambulation. She is unable to bear weight or put any pressure at all on her right leg due to pain with minimal movement. She denies fever, chills, nausea, vomiting, blood in stool, blood in urine, obvious bleeding of any type, discoloration of her right knee or any recent trauma to her right knee. She states she is having pain just above her right kneecap on the proximal portion of her lateral collateral ligament. In the ER she was noted to have severe acute blood loss anemia requiring transfusion with a hemoglobin of 6.7 g/dL present on admission along with Hemoccult positive stools in the setting of known iron deficiency anemia complicated by laboratory evidence of acute cystitis; Her daughter states she thinks she had her last colonoscopy approximately 1 year ago, but she is not sure. [facility] Medical History Back pain Chronic headaches COPD (chronic obstructive pulmonary disease) DVT (deep venous thrombosis) GERD (gastroesophageal reflux disease) Iron deficiency anemia Major depressive disorder Neoplasm of kidney Occipital neuralgia of right side Osteoarthritis Spondylosis Vitamin D deficiency Home Medications budesonide-formoterol HFA 160 mcg-4.5 mcg/actuation aerosol inhaler 2 puff inhalation BID breathing 05/01/21 [History Last Taken Unknown] albuterol sulfate 90 mcg/actuation aerosol inhaler 2 puff inhalation Q4H PRN 06/06/23 [History Last Taken Unknown] citalopram 20 mg tablet 20 mg PO DAILY 06/06/23 [History Last Taken Unknown] ondansetron 4 mg disintegrating tablet 8 mg PO Q8H PRN nausea and vomiting 06/06/23 [History Last Taken Unknown] oxybutynin chloride 10 mg tablet,extended release 24 hr 10 mg PO DAILY 06/06/23 [History Last Taken Unknown] pantoprazole 40 mg tablet,delayed release (Protonix) 20 mg PO DAILY 06/06/23 [History Last Taken Unknown] ramipril 2.5 mg capsule 2.5 mg PO DAILY 06/06/23 [History Last Taken Unknown] vit B complex 100 combo no.2 100 mg tablet,extended release (B-100 Complex ER) tab PO 06/06/23 [History Last Taken Unknown] hydrocodone-acetaminophen 5-325mg 5mg-325mg 1 tab PO Q8H pain 06/21/23 [History Last Taken Unknown] Allergy/AdvReac Type Severity Reaction Status Date / Time No Known Allergies Allergy Verified 06/21/23 21:42 Family History Father CAD (coronary artery disease) CABG x 5 Skin cancer Brother Diabetes CAD (coronary artery disease) age 59 Skin cancer Mother Skin cancer Surgical History History of bilateral knee replacement History of left heart catheterization (~2002) History of open reduction and internal fixation (ORIF) procedure History of right hip replacement Social History household members: none Smoking Status: Former smoker alcohol intake: current alcohol intake frequency: a few times a week substance use type: does not use ROS ROS Narrative Review of systems: Constitutional: Patient denies fevers or chills. Eyes: Patient denies visual changes. ENT: Patient denies runny nose, sore throat or ear pain. Cardiovascular: Patient denies chest pain, chest pressure or palpitations. Respiratory: Patient denies shortness of breath or cough. Abdominal: Patient denies abdominal pain, nausea or vomiting. Genitourinary: Patient denies dysuria, hematuria or urinary frequency but her urinalysis was noted to be positive for infection present on admission. Musculoskeletal: Patient admits to severe proximal and lateral right knee pain made worse with movement but not fully relieved by rest. Neurologic: Patient denies headaches, dizziness or other focal neurologic deficits. Skin: Patient has no evidence of rash at this time. There is no erythema surrounding her right knee. Psychiatric: Patient denies uncontrolled depression or anxiety. Hematologic: Patient admits to having being diagnosed with iron deficiency anemia in the past. Allergic: Patient denies lip swelling, tongue swelling or urticaria. 14 point review systems otherwise negative except for positives noted above in HPI. Lab / Micro Data 06/22/23 05:05 06/22/23 05:05 Labs: Laboratory Results - last 24 hr 06/21/23 22:53: WBC 8.9, RBC 2.18 L, Hgb 6.7 L, Hct 21.5 L, MCV 98.6, MCH 30.7, MCHC 31.2 L, RDW Std Deviation 52.3 H, RDW Coeff of Mark 14.6, Plt Count 237, MPV 9.1, Immature Gran % (Auto) 0.300, Neut % (Auto) 70.9 H, Lymph % (Auto) 18.9 L, [place] % (Auto) 8.1, Eos % (Auto) 1.2, Baso % (Auto) 0.6, Absolute Neuts (auto) 6.3, Absolute Lymphs (auto) 1.68, Nucleated RBC % 0, Sodium 140, Potassium 3.8, Chloride 106, Carbon Dioxide 26.0, Anion Gap 8, BUN 27 H, Creatinine 0.89, Estim Creat Clear Calc 39.92, Est GFR (MDRD) Af Amer 78, Est GFR (MDRD) Non-Af 64, BUN/Creatinine Ratio 30.3 H, Glucose 97, Calcium 8.9 06/21/23 23:38: D-Dimer Quant (PE/DVT) 0.52 H*, Iron 19 L, TIBC 282, Iron Saturation 6.7 L, Folate 32.50, Blood Type O NEGATIVE, Antibody Screen NEGATIVE, Crossmatch See Detail 06/21/23 23:54: Urine Color Yellow, Urine Clarity Clear, Urine pH 5.0, Ur Sp ecific [place] 1.025, Urine Protein 30 H, Urine Glucose (UA) Normal, Urine Ke tones Negative, Urine Occult Blood 25 H, Urine Nitrite Positive H, Urine Bilirubin 3 H, Urine Urobilinogen 8 H, Ur Leukocyte Esterase 25 H, Urine RBC 0 SEEN, Urine WBC 10-25 SEEN, Ur Squamous Epith Cells 0 SEEN, Urine Bacteria 0 SEEN, Urine Mucus 0 SEEN 06/22/23 05:05: WBC 8.1, RBC 2.71 L, Hgb 8.3 L, Hct 26.3 L, MCV 97.0, MCH 30.6, MCHC 31.6 L, RDW Std Deviation 53.1 H, RDW Coeff of Mark 15.2 H, Plt Count 223, MPV 9.1, Immature Gran % (Auto) 0.400, Neut % (Auto) 62.1, Lymph % (Auto) 24.3, [place] % (Auto) 9.6, Eos % (Auto) 2.9, Baso % (Auto) 0.7, Absolute Neuts (auto) 5.1, Absolute Lymphs (auto) 1.98, Nucleated RBC % 0, ESR 1, Sodium 141, Potassium 3.6, Chloride 106, Carbon Dioxide 29.0, Anion Gap 6, BUN 24 H, Creatinine 0.76, Estim Creat Clear Calc 34.25, Est GFR (MDRD) Af Amer 93, Est GFR (MDRD) Non-Af 77, BUN/Creatinine Ratio 31.5 H, Glucose 102, Calcium 8.2 L, Phosphorus 3.3, Magnesium 2.2, Total Bilirubin 0.60, AST 16, ALT 15, Alkaline Phosphatase 44 L, C-React Prot Ext Range < 2.90, Total Protein 5.8 L, Albumin 3.4, Globulin 2.4, Albumin/Globulin Ratio 1.4, Vitamin B12 388, TSH 5.49 H Micro: Microbiology 06/21/23 23:23 Stool Stool Occult Blood (KIM) - Final Occult Blood Positive Imagaing Radiology Impression Knee X-Ray 06/21/23 21:47 IMPRESSION: Total right knee arthroplasty without evidence of failure. Large joint effusion at the knee. Electronically Signed: Flavio Spicer MD at 22:25 EST , Lower Extremity CT 06/22/23 03:20 IMPRESSION: There is a total right knee arthroplasty without evidence of failure. No fractures are identified. Large suprapatellar joint effusion. Electronically Signed: Flavio Spicer MD at 5:36 EST , Assessment & Plan Assessment/Plan (1) Anemia requiring transfusions: (2) Positive fecal occult blood test: (3) Acute cystitis without hematuria: (4) Inability to ambulate due to right knee: (5) History of total knee arthroplasty: QUALIFIERS: Laterality: right Qualified Code(s): Z96.651 - Presence of right artificial knee joint PLAN: Plan 83-year-old : Acute blood loss anemia requiring transfusion with hemoglobin of 6.7 g/dL present on admission and a slightly elevated BUN of 27 mg/dL present on admissio n with Hemoccult positive stools in the ER - Admit to PCU. Proceed with transfusion of 1 unit of packed red blood cells. She should undergo an upper endoscopy to evaluate her upper GI tract. I do know she cannot tolerate her prep at this time due to inability to ambulate without assistance. Awaiting orthopedics recommendations. She will undergo an upper endoscopy to evaluate upper GI tract. She was explained alternatives, risk, benefits include not withstanding bleeding, infection, sepsis, perforation, need for emergent urgent . She have an ASA of 3.
[2023-06-22] VITALS (22 sets, daily range): BP systolic 71–175; BP diastolic 33–109; PULSE 59–90; RESP 15–20; TEMP 36.5–37.6; O2SAT 82–100; BMI 18.6
[2023-06-22 00:01] LABS: Color, Urine Yellow (Yellow); Glucose, Dipstick Normal (Normal); Ketone-Dipstick Negative (Negative); Leukocyte Esterase-Dipstick 25 /ul (Negative); Nitrite-Dipstick Positive (Negative); Occult Blood-Urine 25 /ul (Negative); Protein-Dipstick 30 mg/dl (Negative); Specific Gravity, Urine 1.025 (1.002-1.030); Urine Clarity Clear (Clear); Urine Urobilinogen 8 mg/dl (Normal)
[2023-06-22 00:07] LABS: Urine Bilirubin Dipstick 3 mg/dL (Negative)
[2023-06-22 00:08] LABS: White Blood Cells 10-25 SEEN /hpf (0-5)
[2023-06-22 00:16] LABS: Iron 19 ug/dL (50-170); Iron Binding Capacity,Total 282 ug/dL (250-450); PERCENT IRON SATURATION 6.7 % (15.0-55.0)
[2023-06-22 00:25] LABS: D-Dimer Quantitative (DVT/PE) 0.52 FEU/ug/m (0.27-0.49)
[2023-06-22] MEDS: fentaNYL 100 MCG/2 ML Ampul 25 MCG IV (00:31)
[2023-06-22] MEDS: Acetaminophen 325 MG Tablet 650 MG PO (01:19)
[2023-06-22] MEDS: 0.9% Saline Lock 10 ML Syringe IV ×3 (02:00→20:56)
[2023-06-22] MEDS: HYDROmorphone 1 MG/ML Syringe IV ×5 (02:00→20:56)
--- NOTE | 2023-06-22 03:20 | CT_ITS ---
CT RIGHT LOWER EXTREMITY CLINICAL INDICATION: Large effusion in Right knee with h/o TKR TECHNIQUE: Axial CT images of the RIGHT lower extremity was performed without IV contrast material. Coronal and sagittal reformats were provided. RADIATION DOSAGE (If Supplied By Facility): CTDIvol = ( 15.35 ) mGy, DLP = ( 462.44 ) mGycm COMPARISON: Prior study dated: Knee radiographs performed 06/21/2023 FINDINGS: Bones: There is a total right knee arthroplasty. The femoral component articulates appropriately with the tibial and patellar components. No periprosthetic lucency or fracture identified. There is a large suprapatellar joint effusion present. Soft Tissues: Vascular calcifications are noted. No significant superficial or deep edema. CT/Extremity Lower without Contra IMPRESSION: There is a total right knee arthroplasty without evidence of failure. No fractures are identified. Large suprapatellar joint effusion. Electronically Signed: Flavio Spicer MD at 5:36 EST ,
--- NOTE | 2023-06-22 03:26 | VDLE_ITS ---
Reason For Study: elevated D-dimer, hx DVT, effusion on x-ray RIGHT GSV is normal. CFV is compressible, spontaneous, phasic, competent and demonstrates normal augmentation. FV is compressible, spontaneous, phasic, competent and demonstrates normal augmentation. POP V is compressible, spontaneous, phasic, competent and demonstrates normal augmentation. T/P Trunk is compressible. PTV is compressible. RT PerV is compressible. Hypoechoic area in the gastroc muscle measuring .45 x .68 in short. Are is too lsrge to measure in long. Area is nonvascular. Procedure This is a venous duplex using B-mode, color flow and spectral Doppler. Exam performed portable in patient room. The exam was abbreviated due to the COVID 19 protocol. The exam was diagnostic. A preliminary report was called and/or faxed to PCU battery charger conveyor line. VL/Venous Duplex US, Unilateral Interpretation Summary Deep veins of the right lower extremity are patent and compressible segmentally . There is no evidence of right lower extremity deep vein thrombosis. The right great sapheno us vein appears patent and compressible segmentally. Hypoechoic area in the gastrocnemius muscl e Ordering Physician: Nilesh Gaona Performed By: Darion Mccormick RVT
[2023-06-22] MEDS: 0.9% Normal Saline (1000mL) 1,000 ML 50 ML IV (04:55)
[2023-06-22 05:34] LABS: Absolute Lymphocyte Count 1.98 X10^3/uL (0.83-4.51); Absolute Neutrophil Count 5.1 X10^3/uL (2.0-7.7); Basophil# 0.06 X10^3/uL; Basophil% 0.7 % (0-1); Eosinophil# 0.24 X10^3/uL; Eosinophils% 2.9 % (0-5); Hematocrit 26.3 % (37-47); Hemoglobin 8.3 g/dL (12.0-15.0); Lymphocyte # 1.98 X10^3/ul (0.83-4.51); Lymphocyte % 24.3 % (19-41); Mean Corp Hgb Conc 31.6 g/dL (32-36); Mean Corpuscular Hgb 30.6 pg (27.0-32.0); Mean Platelet Vol. 9.1 fl (6.2-12.0); Monocyte# 0.78 X10^3/uL; Monocyte% 9.6 % (0-10); NRBC Flagged by Analyzer 0 % (0-5); Neutrophil # 5.05 X10^3/uL (2.7-7.7); Neutrophil % 62.1 % (47-70); Platelet Count 223 K/mm3 (150-450); RBC Distribution Width CV 15.2 % (11.6-14.6); RBC Distribution Width SD 53.1 fl (35.1-43.9); Red Blood Count 2.71 M/mm3 (4.2-5.4); White Blood Count 8.1 K/mm3 (4.4-11.0)
[2023-06-22 06:02] LABS: ALB/GLOB Ratio 1.4 RATIO (0.9-2.4); AST(SGOT) 16 U/L (15-37); Alanine Aminotransfer ALT/SGPT 15 U/L (13-56); Albumin, Serum 3.4 g/dL (3.2-5.0); Alkaline Phosphatase 44 U/L (45-117); Anion Gap 6 (5-15); BUN 24 mg/dL (7-18); BUN/Creat Ratio 31.5 RATIO (10-20); Calcium,Total 8.2 mg/dL (8.5-10.1); Chloride 106 mmol/L (98-107); Creatinine, Serum 0.76 mg/dL (0.55-1.02); EST Glomerular Filtration Rate 77 mL/min (>60); Est Glom Filt Rate - Afr Amer 93 mL/min (>60); Estimated Creatinine Clearance 34.25 ml/min; Globulin 2.4 g/dL (2.2-4.2); Glucose 102 mg/dL (74-106); Magnesium 2.2 mg/dL (1.6-2.6); Phosphorus 3.3 mg/dL (2.5-4.9); Potassium 3.6 mmol/L (3.5-5.1); Protein, Total 5.8 g/dL (6.4-8.2); Sodium Level 141 mmol/L (136-145); Thyroid Stim Hormone (TSH) 5.49 uIU/mL (0.358-3.74)
[2023-06-22] MEDS: Albuterol 2.5 MG/3 ML VIAL.NEB. INHALATION ×2 (07:50→19:45)
[2023-06-22] MEDS: Budesonide Respules 0.5 MG/2 ML AMPUL.NEB. INHALATION ×2 (07:50→19:45)
[2023-06-22 08:41] LABS: Vitamin B12 388 pg/mL (211-911)
[2023-06-22] MEDS: Ramipril 2.5 MG Capsule PO (08:47)
[2023-06-22] MEDS: Citalopram 20 MG Tablet PO (08:48)
[2023-06-22 08:49] LABS: CRP < 2.90 mg/L (0.0-3.0)
[2023-06-22] MEDS: Ceftriaxone 1 GM/50 ML BAG IV (08:53)
[2023-06-22 08:56] LABS: Erythrocyte Sedimentation Rate 1 mm/hr (0-30)
--- NOTE | 2023-06-22 10:20 | CON.PCM.OR_ITS ---
HPI Consult Data Date of Consult: 06/22/23 HPI Narrative Reason for Consultation: Right knee pain history of total knee arthroplasty HPI Narrative: SANDIE HO, is a 83 F with a PMH of essential hypertension, history of tobacco abuse with subsequent COPD, history of DVT, history of renal neoplasm, history of right-sided occipital neuralgia; with chronic headaches, depression, history of severe claustrophobia; patient requiring sedation to obtain an MRI, GERD, glaucoma, chronic iron deficiency anemia and history of osteoarthritis; status post bilateral total knee replacement and right hip replacement several years ago (~2002) plus spondylosis with chronic back pain who presents with right knee pain. She is having difficulty ambulating or moving her leg secondary to pain. No fevers chills nausea vomiting no recent illness. No trauma or falls to the knee. Orthopedics consulted to rule out infection however patient has no delfin kocytosis, afebrile, ESR is 1, CRP <2.9. [facility] Medical History Back pain Chronic headaches COPD (chronic obstructive pulmonary disease) DVT (deep venous thrombosis) GERD (gastroesophageal reflux disease) Iron deficiency anemia Major depressive disorder Neoplasm of kidney Occipital neuralgia of right side Osteoarthritis Spondylosis Vitamin D deficiency Home Medications budesonide-formoterol HFA 160 mcg-4.5 mcg/actuation aerosol inhaler 2 puff inhalation BID breathing 05/01/21 [History Last Taken Unknown] albuterol sulfate 90 mcg/actuation aerosol inhaler 2 puff inhalation Q4H PRN 06/06/23 [History Last Taken Unknown] citalopram 20 mg tablet 20 mg PO DAILY 06/06/23 [History Last Taken Unknown] ondansetron 4 mg disintegrating tablet 8 mg PO Q8H PRN nausea and vomiting 06/06/23 [History Last Taken Unknown] oxybutynin chloride 10 mg tablet,extended release 24 hr 10 mg PO DAILY 06/06/23 [History Last Taken Unknown] pantoprazole 40 mg tablet,delayed release (Protonix) 20 mg PO DAILY 06/06/23 [History Last Taken Unknown] ramipril 2.5 mg capsule 2.5 mg PO DAILY 06/06/23 [History Last Taken Unknown] vit B complex 100 combo no.2 100 mg tablet,extended release (B-100 Complex ER) tab PO 06/06/23 [History Last Taken Unknown] hydrocodone-acetaminophen 5-325mg 5mg-325mg 1 tab PO Q8H pain 06/21/23 [History Last Taken Unknown] Allergy/AdvReac Type Severity Reaction Status Date / Time No Known Allergies Allergy Verified 06/21/23 21:42 Family History Father CAD (coronary artery disease) CABG x 5 Skin cancer Brother Diabetes CAD (coronary artery disease) age 59 Skin cancer Mother Skin cancer Surgical History History of bilateral knee replacement History of left heart catheterization (~2002) History of open reduction and internal fixation (ORIF) procedure History of right hip replacement Social History household members: none Smoking Status: Former smoker alcohol intake: current alcohol intake frequency: a few times a week substance use type: does not use Vital Signs Vital Signs Vital Signs: 06/21/23 21:36 06/22/23 00:06 06/22/23 00:57 Temperature 99 F 97.9 F 98.2 F Temperature Source Temporal Oral Pulse Rate 88 79 78 Respiratory Rate 18 15 18 Respiratory Effort Respiratory Depth Respiratory Pattern Blood Pressure 159/70 H 140/66 H 140/109 H Blood Pressure Mean 99 90 119 Pulse Ox 95 93 95 Oxygen Delivery Method Room Air Room Air Oxygen Flow Rate (L/min) 06/22/23 01:32 06/22/23 01:47 06/22/23 02:35 Temperature 98.3 F 98.2 F Temperature Source Oral Oral Pulse Rate 77 78 Respiratory Rate 16 18 Respiratory Effort Normal Non-Labored Respiratory Depth Normal Respiratory Pattern Normal Blood Pressure 168/73 H 175/69 H Blood Pressure Mean 104 104 Pulse Ox 95 95 Oxygen Delivery Method Room Air Room Air Room Air Oxygen Flow Rate (L/min) 06/22/23 02:57 06/22/23 03:39 06/22/23 06:23 Temperature 98.2 F 98.2 F 98.2 F Temperature Source Oral Oral Oral Pulse Rate 78 77 76 Respiratory Rate 18 18 16 Respiratory Effort Respiratory Depth Respiratory Pattern Blood Pressure 146/70 H 138/92 H 137/82 H Blood Pressure Mean 95 107 100 Pulse Ox 92 94 92 Oxygen Delivery Method Room Air Room Air Room Air Oxygen Flow Rate (L/min) 06/22/23 07:50 06/22/23 07:50 06/22/23 07:55 Temperature Temperature Source Pulse Rate 88 Respiratory Rate 20 H Respiratory Effort Respiratory Depth Respiratory Pattern Normal Blood Pressure Blood Pressure Mean Pulse Ox 86 93 Oxygen Delivery Method Room Air Nasal Cannula Oxygen Flow Rate (L/min) 3 Weight Weight: 50.9 kg Body Mass Index (BMI) 18.6 Physical Exam Narrative Patient resting comfortably in bed No signs of acute distress Satting well on room air Limb is hot to touch. no erythema. effusion 2+ minimal fluctuance. Sensation intact throughout entire lower extremity, including saphenous, sural, superficial and deep peroneal, and tibial distribution. DP/PT pulses bounding. significant pain to any PROM of the leg or knee. 10 degrees - 30 degrees ROM Calf nontender to palpation, no erythema, no edema. Negative Homans Lab / Micro Data 06/22/23 05:05 06/22/23 05:05 Labs: Laboratory Results - last 24 hr 06/21/23 22:53: WBC 8.9, RBC 2.18 L, Hgb 6.7 L, Hct 21.5 L, MCV 98.6, MCH 30.7, MCHC 31.2 L, RDW Std Deviation 52.3 H, RDW Coeff of Mark 14.6, Plt Count 237, MPV 9.1, Immature Gran % (Auto) 0.300, Neut % (Auto) 70.9 H, Lymph % (Auto) 18.9 L, [place] % (Auto) 8.1, Eos % (Auto) 1.2, Baso % (Auto) 0.6, Absolute Neuts (auto) 6.3, Absolute Lymphs (auto) 1.68, Nucleated RBC % 0, Sodium 140, Potassium 3.8, Chloride 106, Carbon Dioxide 26.0, Anion Gap 8, BUN 27 H, Creatinine 0.89, Estim Creat Clear Calc 39.92, Est GFR (MDRD) Af Amer 78, Est GFR (MDRD) Non-Af 64, BUN/Creatinine Ratio 30.3 H, Glucose 97, Calcium 8.9 06/21/23 23:38: D-Dimer Quant (PE/DVT) 0.52 H*, Iron 19 L, TIBC 282, Iron Saturation 6.7 L, Folate 32.50, Blood Type O NEGATIVE, Antibody Screen NEGATIVE, Crossmatch See Detail 06/21/23 23:54: Urine Color Yellow, Urine Clarity Clear, Urine pH 5.0, Ur Specific [place] 1.025, Urine Protein 30 H, Urine Glucose (UA) Normal, Urine Ketones Negative, Urine Occult Blood 25 H, Urine Nitrite Positive H, Urine Bilirubin 3 H, Urine Urobilinogen 8 H, Ur Leukocyte Esterase 25 H, Urine RBC 0 SEEN, Urine WBC 10-25 SEEN, Ur Squamous Epith Cells 0 SEEN, Urine Bacteria 0 SEEN, Urine Mucus 0 SEEN 06/22/23 05:05: WBC 8.1, RBC 2.71 L, Hgb 8.3 L, Hct 26.3 L, MCV 97.0, MCH 30.6, MCHC 31.6 L, RDW Std Deviation 53.1 H, RDW Coeff of Mark 15.2 H, Plt Count 223, MPV 9.1, Immature Gran % (Auto) 0.400, Neut % (Auto) 62.1, Lymph % (Auto) 24.3, [place] % (Auto) 9.6, Eos % (Auto) 2.9, Baso % (Auto) 0.7, Absolute Neuts (auto) 5.1, Absolute Lymphs (auto) 1.98, Nucleated RBC % 0, ESR 1, Sodium 141, Potassium 3.6, Chloride 106, Carbon Dioxide 29.0, Anion Gap 6, BUN 24 H, Creatinine 0.76, Estim Creat Clear Calc 34.25, Est GFR (MDRD) Af Amer 93, Est GFR (MDRD) Non-Af 77, BUN/Creatinine Ratio 31.5 H, Glucose 102, Calcium 8.2 L, Phosphorus 3.3, Magnesium 2.2, Total Bilirubin 0.60, AST 16, ALT 15, Alkaline Phosphatase 44 L, C-React Prot Ext Range < 2.90, Total Protein 5.8 L, Albumin 3.4, Globulin 2.4, Albumin/Globulin Ratio 1.4, Vitamin B12 388, TSH 5.49 H Micro: Microbiology 06/21/23 23:23 Stool Stool Occult Blood (KIM) - Final Occult Blood Positive Imagaing Radiology Impression Knee X-Ray 06/21/23 21:47 IMPRESSION: Total right knee arthroplasty without evidence of failure. Large joint effusion at the knee. Electronically Signed: Flavio Spicer MD at 22:25 EST , Lower Extremity CT 06/22/23 03:20 IMPRESSION: There is a total right knee arthroplasty without evidence of failure. No fractures are identified. Large suprapatellar joint effusion. Electronically Signed: Flavio Spicer MD at 5:36 EST , Assessment & Plan Assessment/Plan (1) History of total knee arthroplasty: QUALIFIERS: Laterality: right Qualified Code(s): Z96.651 - Pre sence of right artificial knee joint PLAN: Spoke with Dr. Lassiter who is auction assistant. 1. ortho consulted to rule out infected tka. 2. ESR and CRP are normal. patient afebrile, no leukocytosis. CT was negative for any acute fx or loosening hardware. 3. suspicion of infection is extremely low at this time. It is likely that this is a spontaneous effusion or hemarthrosis. no acute surgical intervention. recommend knee immobilizer, ice, nsaids, tylenol, compression as needed for pain control. she can return to weight bearing as she tolerates 4. recommend to follow up in office in 1-[address] Arias or can return to [facility] with surgeon who did her total knees. 5. orthopaedics will sign off at this time. (2) Acute pain of right knee: (3) Knee effusion, right:
--- NOTE | 2023-06-22 10:23 | PN.HOSP_ITS ---
Subjective Subjective Having difficulty with her right knee pain, hemoglobin has improved to 8.3 after 1 unit of PRBCs. Stool occult is positive Objective Data Objective Data Vital Signs: Vital Signs Temp Pulse Resp BP Pulse Ox O2 Del Method O2 Flow Rate 98.2 F 88 20 H 137/82 H 93 Nasal Cannula 3 06/22/23 06:23 06/22/23 07:50 06/22/23 07:50 06/22/23 06:23 06/22/23 07:55 06/22/23 07:55 06/22/23 07:55 Oxygen Flow Rate (L/min) 3 Oxygen Delivery Method Nasal Cannula Weight: 112 lb 3.445 oz Body Mass Index (BMI) 18.6 Intake & Output: Intake and Output for Last 24 Hours 06/21/23 06/22/23 06/23/23 03:59 03:59 03:59 Intake Total 50 / 50 Balance 50 / 50 Lab / Micro Data 06/22/23 05:05 06/22/23 05:05 Labs: Laboratory Results - last 24 hr 06/21/23 22:53: WBC 8.9, RBC 2.18 L, Hgb 6.7 L, Hct 21.5 L, MCV 98.6, MCH 30.7, MCHC 31.2 L, RDW Std Deviation 52.3 H, RDW Coeff of Mark 14.6, Plt Count 237, MPV 9.1, Immature Gran % (Auto) 0.300, Neut % (Auto) 70.9 H, Lymph % (Auto) 18.9 L, Nuckolls % (Auto) 8.1, Eos % (Auto) 1.2, Baso % (Auto) 0.6, Absolute Neuts (auto) 6.3, Absolute Lymphs (auto) 1.68, Nucleated RBC % 0, Sodium 140, Potassium 3.8, Chloride 106, Carbon Dioxide 26.0, Anion Gap 8, BUN 27 H, Creatinine 0.89, Estim Creat Clear Calc 39.92, Est GFR (MDRD) Af Amer 78, Est GFR (MDRD) Non-Af 64, BUN/Creatinine Ratio 30.3 H, Glucose 97, Calcium 8.9 06/21/23 23:38: D-Dimer Quant (PE/DVT) 0.52 H*, Iron 19 L, TIBC 282, Iron Saturation 6.7 L, Folate 32.50, Blood Type O NEGATIVE, Antibody Screen NEGATIVE, Crossmatch See Detail 06/21/23 23:54: Urine Color Yellow, Urine Clarity Clear, Urine pH 5.0, Ur Spec ific [place] 1.025, Urine Protein 30 H, Urine Glucose (UA) Normal, Urine Ketones Negative, Urine Occult Blood 25 H, Urine Nitrite Positive H, Urine Bilirubin 3 H , Urine Urobilinogen 8 H, Ur Leukocyte Esterase 25 H, Urine RBC 0 SEEN, Urine WBC 10-25 SEEN, Ur Squamous Epith Cells 0 SEEN, Urine Bacteria 0 SEEN, Urine Mucus 0 SEEN 06/22/23 05:05: WBC 8.1, RBC 2.71 L, Hgb 8.3 L, Hct 26.3 L, MCV 97.0, MCH 30.6, MCHC 31.6 L, RDW Std Deviation 53.1 H, RDW Coeff of Mark 15.2 H, Plt Count 223, MPV 9.1, Immature Gran % (Auto) 0.400, Neut % (Auto) 62.1, Lymph % (Auto) 24.3, Nuckolls % (Auto) 9.6, Eos % (Auto) 2.9, Baso % (Auto) 0.7, Absolute Neuts (auto) 5.1, Absolute Lymphs (auto) 1.98, Nucleated RBC % 0, ESR 1, Sodium 141, Potassium 3.6, Chloride 106, Carbon Dioxide 29.0, Anion Gap 6, BUN 24 H, Creatinine 0.76, Estim Creat Clear Calc 34.25, Est GFR (MDRD) Af Amer 93, Est GFR (MDRD) Non-Af 77, BUN/Creatinine Ratio 31.5 H, Glucose 102, Calcium 8.2 L, Phosphorus 3.3, Magnesium 2.2, Total Bilirubin 0.60, AST 16, ALT 15, Alkaline Phosphatase 44 L, C-React Prot Ext Range < 2.90, Total Protein 5.8 L, Albumin 3.4, Globulin 2.4, Albumin/Globulin Ratio 1.4, Vitamin B12 388, TSH 5.49 H Micro: Microbiology 06/21/23 23:23 Stool Stool Occult Blood (KIM) - Final Occult Blood Positive Radiography Diagnostic Testing: Radiology Impression Knee X-Ray 06/21/23 21:47 IMPRESSION: Total right knee arthroplasty without evidence of failure. Large joint effusion at the knee. Electronically Signed: Flavio Spicer MD at 22:25 EST , Lower Extremity CT 06/22/23 03:20 IMPRESSION: There is a total right knee arthroplasty without evidence of failure. No fractures are identified. Large suprapatellar joint effusion. Electronically Signed: Flavio Spicer MD at 5:36 EST , Physical Exam Narrative General: Alert, Oriented x3, Cooperative, No apparent distress HEENT: Atraumatic, PERRLA, EOMI, Normocephalic Oral: Moist Mucosa Neck: Supple, No JVD Lungs: Diminished, Normal air movement, No rhonchi, No wheeze, No rales Cardiovascular: Regular rate, Regular Rhythm, Normal S1, Normal S2, No murmurs Abdomen: Soft, Non Tender, Non-Distended, No Hepato-splenomegaly Extremities: No edema, Capillary Refill Less than 3 Seconds Skin: No rashes, No breakdown Musculoskeletal: Right knee pain with swelling no signs of acute infection Neurological: Motor Exam 5/5 strength throughout, Sensory exam intact to light touch and pain Psych/Mental Status: Normal Affect, Appropriate Assessment & Plan Assessment/Plan (1) Anemia requiring transfusions: (2) Positive fecal occult blood test: PLAN: Plan 1. Acute blood loss anemia secondary to GI bleed/GERD ? Was transfused 1 unit currently stable we will recheck this afternoon ? Consult to gastroenterology for possible scope ? Will start her on a PPI 2. Right knee effusion in the setting of bilateral knee replacements ? She does not have a leukocytosis and she is afebrile without any signs of infection ? Appreciate orthopedic surgery's consultation and evaluation will continue with IV antibiotics pending any procedural intervention 3. Urine sample did not have any bacteria and was with very slightly weakly positive for UTI therefore feel UTI is unlikely will continue Rocephin for the knee 4. Hypertension ? Blood pressures are stable ? Can continue with her home blood pressure medications 5. Anxiety/depression ? Stable ? Continue with her home medications DVT: SCDs Charges/Coding Visit Charges Inpatient E&M: 42393 Subs Hosp L2
[2023-06-22] MEDS: Lactated Ringers 1,000 ML 15 ML IV (11:47)
--- NOTE | 2023-06-22 12:30 | EGD_PTH ---
PATIENT: SANDIE HO LOC: [facility] U#:[id number] AGE/SX: 83/F ROOM: [facility] RE06/21/[address]: Dr. Casa Jain MD : 1940 BED: 1 DIS: 06/26/2023 SPEC #: [id number] RECD: 06/23/23 09:42 STATUS: FREDDY REQ #: [id number] ISAC: 06/22/23 12:[address]: Rosalio Bonilla DEPT: SURGICAL PATHOLOGY RECD BY: Dede Tolliver ENTERED: 06/23/23 09:42 SP TYPE: EGD BIOPSY OTHR DR: Dr. Nilesh Gaona, DO MD Dr. García Quiñonez, DO Dr. Ian Lassiter, DO MD Dr. Casa Tian, DO MD Dr. Parish Husain MD Dr. Timothy J Miller, DPJAXON Gallo PA Raymond Eshenaur, PA-C Thomas Janas, PA-C Tissues: Duodenum, NOS Procedures: Surgery Specimen Level IV Comments: @ Ordering doctor for SUIV edited from to @ by TRACY at 06/23/23 2119 @ Submitting doctor edited from to @ by TRACY at 06/23/23 6917 HEADER OPERATION: EGD, biopsy PRE-OP DIAGNOSIS: Anemia, positive fecal occult blood test, acute cystitis TISSUE SUBMITTED: Duodenum ulcer biopsy MICROSCOPIC DIAGNOSIS Duodenum ulcer, biopsy: Fragments of duodenal mucosa with focal superficial erosion, fibrinous exudation and chronic inflammation. Corinne 06/27/2023 MICROSCOPIC DESCRIPTION Slides are reviewed. GROSS DESCRIPTION Received in fixative is one container labeled with the patient's name and designated duodenal ulcer biopsy. The specimen consists of two irregular fragments of light fatima soft tissue that in aggregate measure 0.6 x 0.3 x 0.1 cm. The specimen is totally submitted in one cassette. / Corinne 06/23/2023 TC:2 CPT: 62789
--- NOTE | 2023-06-22 13:32 | OP.CCLET_ITS ---
06/22/2023 Sergio Bailey [address] [facility] [address] [place] [address] Re : Upper GI endoscopy procedure for Argenis Prajapati Dear Dr. Bailey This procedure was performed on June. My impressions and recommendations are as follows: Impressions : - Mild Schatzki ring. - Medium-sized hiatal hernia. - A medium amount of food (residue) in the stomach. - Red blood in the gastric body. - Non-bleeding duodenal ulcer with no stigmata of bleeding. Biopsied. - Acquired duodenal stenosis. Recommendations : - Discharge patient to home. - Full liquid diet. - Continue present medications. - Await pathology results. My findings are described in the full procedure note, which is enclosed. If I can be of further assistance, please feel free to contact me at . Sincerely, Rosalio Bonilla, 06/22/2023 1:32:03 PM This report has been signed electronically.
--- NOTE | 2023-06-22 13:32 | OP.EGD_ITS ---
Patient Name: Argenis Prjaapati Procedure Date: 06/22/2023 1:01 PM Date of : 1940 Age: 83 Procedure: Upper GI endoscopy Indications: Iron deficiency anemia, Functional Dyspepsia, Melena Providers: Rosalio Bonilla DO Medicines: Monitored Anesthesia Care Patient Profile: This is an 83 year old female. Refer to note in patient chart for documentation of history and physical. Patient has symptoms of acute dyspepsia and acute nausea. Complications: No immediate complications. Procedure: Pre-Anesthesia Assessment: - Prior to the procedure, a History and Physical was performed, and patient medications and allergies were reviewed. The risks and benefits of the procedure and the sedation options and risks were discussed with the patient. All questions were answered and informed consent was obtained. Patient identification and proposed procedure were verified by the physician in the pre-procedure area. Mental Status Examination: alert and oriented. Airway Examination: normal oropharyngeal airway and neck mobility. Respiratory Examination: clear to auscultation. Prophylactic Antibiotics: The patient does not require prophylactic antibiotics. Prior Anticoagulants: The patient has taken no anticoagulant or antiplatelet agents. ASA Grade Assessment: III - A patient with severe systemic disease. After reviewing the risks and benefits, the patient was deemed in satisfactory condition to undergo the procedure. The anesthesia plan was to use monitored anesthesia care (MAC). Immediately prior to administration of medications, the patient was re-assessed for adequacy to receive sedatives. The heart rate, respiratory rate, oxygen saturations, blood pressure, adequacy of pulmonary ventilation, and response to care were monitored throughout the procedure. The physical status of the patient was re-assessed after the procedure. After obtaining informed consent, the endoscope was passed under direct vision. Throughout the procedure, the patient's blood pressure, pulse, and oxygen saturations were monitored continuously. The gastroscope was introduced through the mouth, and advanced to the second part of duodenum. The upper GI endoscopy was accomplished without difficulty. The patient tolerated the procedure well. Scope In: 1:12:45 PM Scope Out: 1:16:41 PM Total Procedure Duration Time 0 hours 3 minutes 56 seconds Findings: A mild Schatzki ring was found in the lower third of the esophagus. A medium-sized hiatal hernia was present. A medium amount of food (residue) was found in the gastric body. Red blood was found in the gastric body. One non-bleeding cratered duodenal ulcer with no stigmata of bleeding was found in the duodenal bulb. The lesion was 6 mm in largest dimension. Biopsies were taken with a cold forceps for histology. Verification of patient identification for the specimen was done. Estimated blood loss was minimal. An acquired benign-appearing, intrinsic moderate stenosis was found in the duodenal bulb and was traversed after dilation. Impression: - Mild Schatzki ring. - Medium-sized hiatal hernia. - A medium amount of food (residue) in the stomach. - Red blood in the gastric body. - Non-bleeding duodenal ulcer with no stigmata of bleeding. Biopsied. - Acquired duodenal stenosis. Recommendation: - Discharge patient to home. - Full liquid diet. - Continue present medications. - Await pathology results. Procedure Code(s): --- Professional --- 31626, Esophagogastroduodenoscopy, flexible, transoral; with biopsy, single or multiple CPT copyright 2021 [employer]. All rights reserved. The codes documented in this report are preliminary and upon bag filler review may be revised to meet current compliance requirements. Rosalio Bonilla DO 06/22/2023 1:32:03 PM This report has been signed electronically. Number of Addenda: 0 Note Initiated On: 06/22/2023 1:01 PM
[2023-06-22] MEDS: Pantoprazole Sodium 40 MG in 0.9% Normal Saline (100mL MB+) 100 ML 330 MG IV (14:13)
[2023-06-22 14:23] LABS: Hematocrit 25.5 % (37-47); Hemoglobin 7.7 g/dL (12.0-15.0)
--- NOTE | 2023-06-22 15:30 | CASEMGMT ---
RN?CM?COMPUTERIZED MILL MILL RECORDER?CM?to room to meet with patient for initial transition planning/care coordination?assessment.?RN?CM?introduced self and role at [facility].? Pt voices understanding and consents to?assessment?at this time.? Pt resting in bed in no distress at this time.?Dtr, Ro, @ bedside. Pt is awake/oriented, but sleepy, and had Ro answer most questions. Care providers, pharmacy, and demographics verified/updated at this time. PCP: Dr Sergio Bailey Specialists:Dr Link-pain mgnt @ [facility] Hosp/[place], Dr Barth-ortho Preferred Pharmacy: [facility] Insurance: [employer] [facility] Prescription Benefit:?yes Living Will/HPOA:?Has both LW and HCPOA. Dtr states she thinks pt's , Bladimir, is listed as primary POA and she (Ro) is 1st alternative. She states is [place] and has difficulty hearing on the phone. LNOK: , Bladimir. Dtr, Ro Living Arrangements: Lives w/her in 2-story home w/2 steps to enter. FFSU. There is a step pt has to step up/down on that is between different areas of the home. Pt is indep @ baseline w/ADL's. does most home mgnt tasks and gets groceries. Dtr and do med mgnt and dtr manages appts. Transportation:?Pt, , dtr DME: ?States has the following DME:?bench is shower, cane, W/C for long distances. Pt has a walker available, but does not use it @ baseline. HHC/SNF: Pt has been to a SNF in the past and has had HHC in the past. Dtr does not remember names of places/agencies. Dtr voices concern w/pt being able to go home, stating she is still so painful and has very limited mobility. She was made aware therapy would work w/pt and CM or SW will f/u re: further discharge planning. She voices understanding. PLAN:??TBD by progress w/therapy. Judy BSN?RN?CM
--- NOTE | 2023-06-22 15:48 | NM_ITS ---
CLINICAL: 83-year-old female with history of clinical gastroparesis. SEMI-SOLID PHASE 99m Tc SULFUR COLLOID GASTRIC EMPTYING STUDY COMPARISON: None available FINDINGS: The patient was administered 1.1 mCi of 99m Tc sulfur colloid mixed with oatmeal and consumed per os. Image acquisitions in the anterior-posterior projections were obtained for 60 minutes. There is prompt visualization of the stomach. There is no gastroesophageal reflux identified. The T ? linear fit was calculated to be 56.53 minutes, (Normal: 12-56 minutes). NM/Gastric Emptying Study IMPRESSION: 1. UPPER LIMITS OF NORMAL 99m Tc sulfur colloid semi-solid phase (oatmeal) gastric emptying imaging examination. A. There is relative preserved semi-solid phase gastric emptying compared to normal controls with maintained first order kinetics throughout all components of the examination. (Haritha et al, J Nucl Med Tech 38: 186, 2010). Electronically Signed: Ian Cisneros DO at 12:16 EST ,
[2023-06-22 20:23] LABS: Hematocrit 25.3 % (37-47)
[2023-06-22] MEDS: MELATONIN 3 MG TABLET PO (21:50)
[2023-06-22] MEDS: HYDROcodone Bitartrate/Apap 5/325 Tablet PO (21:50)
[2023-06-23] VITALS (9 sets, daily range): BP systolic 98–139; BP diastolic 51–63; PULSE 72–97; RESP 14–16; TEMP 36.6–36.9; O2SAT 93–99
[2023-06-23] MEDS: HYDROmorphone 1 MG/ML Syringe IV ×2 (00:45→04:47)
[2023-06-23 04:32] LABS: Absolute Lymphocyte Count 1.49 X10^3/uL (0.83-4.51); Absolute Neutrophil Count 4.4 X10^3/uL (2.0-7.7); Basophil# 0.03 X10^3/uL; Basophil% 0.4 % (0-1); Eosinophil# 0.14 X10^3/uL; Hematocrit 27.7 % (37-47); Hemoglobin 8.6 g/dL (12.0-15.0); Lymphocyte # 1.49 X10^3/ul (0.83-4.51); Lymphocyte % 21.6 % (19-41); Mean Corpuscular Hgb 30.8 pg (27.0-32.0); Mean Corpuscular Volume 99.3 fL (81-99); Mean Platelet Vol. 9.1 fl (6.2-12.0); Monocyte# 0.84 X10^3/uL; Monocyte% 12.2 % (0-10); NRBC Flagged by Analyzer 0 % (0-5); Neutrophil # 4.39 X10^3/uL (2.7-7.7); Neutrophil % 63.5 % (47-70); Platelet Count 200 K/mm3 (150-450); RBC Distribution Width CV 15.3 % (11.6-14.6); RBC Distribution Width SD 55.2 fl (35.1-43.9); Red Blood Count 2.79 M/mm3 (4.2-5.4); White Blood Count 6.9 K/mm3 (4.4-11.0)
[2023-06-23 05:19] LABS: Anion Gap 5 (5-15); BUN 15 mg/dL (7-18); BUN/Creat Ratio 26.1 RATIO (10-20); Calcium,Total 8.2 mg/dL (8.5-10.1); Chloride 108 mmol/L (98-107); Creatinine, Serum 0.58 mg/dL (0.55-1.02); EST Glomerular Filtration Rate 107 mL/min (>60); Est Glom Filt Rate - Afr Amer 129 mL/min (>60); Estimated Creatinine Clearance 36.74 ml/min; Glucose 96 mg/dL (74-106); Potassium 3.8 mmol/L (3.5-5.1); Sodium Level 141 mmol/L (136-145)
[2023-06-23] MEDS: HYDROcodone Bitartrate/Apap 5/325 Tablet PO ×3 (06:13→21:44)
[2023-06-23] MEDS: Albuterol 2.5 MG/3 ML VIAL.NEB. INHALATION (06:38)
[2023-06-23] MEDS: Budesonide Respules 0.5 MG/2 ML AMPUL.NEB. INHALATION (06:38)
--- NOTE | 2023-06-23 08:04 | RAD_ITS ---
INDICATION: hypoxia EXAMINATION/TECHNIQUE: X-RAY - XR Chest 2 Views COMPARISON: 01/25/2023 FINDINGS: LIFE-SUPPORT AND LINES: 1. None HEART AND VESSELS: The cardiac silhouette, pulmonary vasculature have normal appearance. No evidence of congestive failure. LUNGS AND PLEURAL SPACES: Lungs are clear. No focal infiltrate, consolidation or effusions. No evidence of pneumothorax. Mild basilar atelectasis. Increased markings extending along the spine on lateral view consistent with superimposed atelectasis versus infiltrate in the lower lobes. No consolidation. Pleural thickening versus trace pleural fluid. MEDIASTINUM AND HILAR REGIONS: No masses adenopathy noted. No areas of calcification. Visualized upper airway is normal in position. BONY ELEMENTS: No acute bony changes noted. RAD/Chest PA and Lateral IMPRESSION: 1. Coarse markings noted partially obscuring the spinal lateral view suspicious of an area of atelectasis versus infiltrate and the posterior basal segment of the lower lobes. There is a trace pleural effusion. Findings appear to be located within the RIGHT lower lobe. 2. Remaining lung zones are clear. 3. No evidence congestive failure. Electronically Signed: Ian Hollins MD at 21:13 [facility] ,
[2023-06-23 08:14] LABS: Free T3 2.4 pg/mL (2.18-3.98); T4 Free Direct 1.03 ng/dL (0.76-1.46)
[2023-06-23] MEDS: Pantoprazole Sodium 40 MG in 0.9% Normal Saline (100mL MB+) 100 ML 330 MG IV (08:26)
[2023-06-23] MEDS: Acetaminophen 325 MG Tablet 650 MG PO (08:26)
[2023-06-23] MEDS: 0.9% Saline Lock 10 ML Syringe IV (08:27)
[2023-06-23] MEDS: Ramipril 2.5 MG Capsule PO (08:27)
[2023-06-23] MEDS: Citalopram 20 MG Tablet PO (08:27)
--- NOTE | 2023-06-23 12:54 | PN.HOSP_ITS ---
Subjective Subjective Still with knee pain, hemoglobin has improved Objective Data Objective Data Vital Signs: Vital Signs Temp Pulse Resp BP Pulse Ox O2 Del Method O2 Flow Rate 98.2 F 88 16 98/53 L 94 Room Air 2 06/23/23 11:40 06/23/23 11:40 06/23/23 11:40 06/23/23 11:40 06/23/23 11:40 06/23/23 11:40 06/23/23 06:38 Oxygen Flow Rate (L/min) 2 Oxygen Delivery Method Room Air Weight: 120 lb 5.958 oz Body Mass Index (BMI) 20.0 Intake & Output: Intake and Output for Last 24 Hours 06/22/23 06/23/23 06/24/23 03:59 03:59 03:59 Intake Total 647.5 / 647.5 740 / 740 Output Total 500 / 500 0 / 0 Balance 147.5 / 147.5 740 / 740 Lab / Micro Data 06/23/23 03:45 06/23/23 03:45 Labs: Laboratory Results - last 24 hr 06/21/23 23:38: Crossmatch See Detail 06/22/23 14:10: Hgb 7.7 L, Hct 25.5 L 06/22/23 20:10: Hgb 8.0 L, Hct 25.3 L 06/23/23 03:45: WBC 6.9, RBC 2.79 L, Hgb 8.6 L, Hct 27.7 L, MCV 99.3 H, MCH 30.8, MCHC 31.0 L, RDW Std Deviation 55.2 H, RDW Coeff of Mark 15.3 H, Plt Count 200, MPV 9.1, Immature Gran % (Auto) 0.300, Neut % (Auto) 63.5, Lymph % (Auto) 21.6, Bledsoe % (Auto) 12.2 H, Eos % (Auto) 2.0, Baso % (Auto) 0.4, Absolute Neuts (auto) 4.4, Absolute Lymphs (auto) 1.49, Nucleated RBC % 0, Sodium 141, Potassium 3.8, Chloride 108 H, Carbon Dioxide 28.0, Anion Gap 5, BUN 15, Creatinine 0.58, Estim Creat Clear Calc 36.74, Est GFR (MDRD) Af Amer 129, Est GFR (MDRD) Non-Af 107, BUN/Creatinine Ratio 26.1 H, Glucose 96, Calcium 8.2 L, Free T4 1.03, Free T3 pg/dL 2.4 Micro: Microbiology 06/21/23 23:23 Stool Stool Occult Blood (KIM) - Final Occult Blood Positive Radiography Diagnostic Testing: Radiology Impression Venous Doppler Study 06/22/23 03:26 Interpretation Summary Deep veins of the right lower extremity are patent and compressible segmentally. There is no evidence of right lower extremity deep vein thrombosis. The right great saphenous vein appears patent and compressible segmentally. Hypoechoic area in the gastrocnemius muscle Ordering Physician: Nilesh Gaona Performed By: Darion Mccormick, RVT Gastric Emptying Nuclear Medicine 06/22/23 15:48 IMPRESSION: 1. UPPER LIMITS OF NORMAL 99m Tc sulfur colloid semi-solid phase (oatmeal) gastric emptying imaging examination. A. There is relative preserved semi-solid phase gastric emptying compared to normal controls with maintained first order kinetics throughout all components of the examination. (Haritha et al, J Nucl Med Tech 38: 186, 2010). Electronically Signed: Ian Cisneros DO at 12:16 EST , Physical Exam Narrative General: Alert, Oriented x3, Cooperative, No apparent distress HEENT: Atraumatic, PERRLA, EOMI, Normocephalic Oral: Moist Mucosa Neck: Supple, No JVD Lungs: Diminished, Normal air movement, No rhonchi, No wheeze, No rales Cardiovascular: Regular rate, Regular Rhythm, Normal S1, Normal S2, No murmurs Abdomen: Soft, Non Tender, Non-Distended, No Hepato-splenomegaly Extremities: No edema, Capillary Refill Less than 3 Seconds Skin: No rashes, No breakdown Musculoskeletal: Right knee pain with swelling no signs of acute infection Neurological: Motor Exam 5/5 strength throughout, Sensory exam intact to light touch and pain Psych/Mental Status: Normal Affect, Appropriate Assessment & Plan Assessment/Plan (1) Anemia requiring transfusions: (2) Positive fecal occult blood test: PLAN: Plan 1. Acute blood loss anemia secondary to GI bleed/GERD ? Hemoglobin went up to 8.6 will monitor ? EGD showed a duodenal ulcer with possible stricture plan for gastric emptying study today ? Will start her on a PPI 2. Right knee effusion in the setting of bilateral knee replacements ? She does not have a leukocytosis and she is afebrile without any signs of infection ? Appreciate orthopedic surgery's consultation and evaluation, inflammatory markers are negative and effusion appears little bit better. Continue with ice and will place her on a compounded joint cream from her pharmacy ? PT/OT ? Can discontinue antibiotics as she does not have a UTI or joint infection at this time 3. UTI is ruled out 4. Hypertension ? Blood pressures are stable ? Can continue with her home blood pressure medications 5. Anxiety/depression ? Stable ? Continue with her home medications DVT: SCDs Charges/Coding Visit Charges Inpatient E&M: 86031 Subs Hosp L2
[2023-06-23] MEDS: Arthritis Pain Compound 60 CLICK TUBE TOPICAL ×2 (13:43→21:44)
--- NOTE | 2023-06-23 15:51 | PN.GI_ITS ---
Subjective Subjective Patient underwent gastric emptying study after undergoing upper endoscopy yesterday. During her upper endoscopy she was discovered to have duodenal ulcer with stricture in the duodenal bulb. She also was discovered to have old food mixed with blood in her stomach. She says that she feels a little bit better today. Objective Data Objective Data Vital Signs: Vital Signs Temp Pulse Resp BP Pulse Ox O2 Del Method O2 Flow Rate 98.2 F 88 16 98/53 L 94 Room Air 2 06/23/23 11:40 06/23/23 11:40 06/23/23 11:40 06/23/23 11:40 06/23/23 11:40 06/23/23 11:40 06/23/23 06:38 Oxygen Flow Rate (L/min) 2 Oxygen Delivery Method Room Air Weight: 120 lb 5.958 oz Body Mass Index (BMI) 20.0 Intake & Output: Intake and Output for Last 24 Hours 06/21/23 06/22/23 06/23/23 23:59 23:59 23:59 Intake Total 628.5 / 648.5 760 / 760 Output Total 300 / 500 200 / 200 Balance 328.5 / 148.5 560 / 560 Lab / Micro Data 06/23/23 03:45 06/23/23 03:45 Labs: Laboratory Results - last 24 hr 06/21/23 23:38: Crossmatch See Detail 06/22/23 20:10: Hgb 8.0 L, Hct 25.3 L 06/23/23 03:45: WBC 6.9, RBC 2.79 L, Hgb 8.6 L, Hct 27.7 L, MCV 99.3 H, MCH 30.8, MCHC 31.0 L, RDW Std Deviation 55.2 H, RDW Coeff of Mark 15.3 H, Plt Count 200, MPV 9.1, Immature Gran % (Auto) 0.300, Neut % (Auto) 63.5, Lymph % (Auto) 21.6, [place] % (Auto) 12.2 H, Eos % (Auto) 2.0, Baso % (Auto) 0.4, Absolute Neuts (auto) 4.4, Absolute Lymphs (auto) 1.49, Nucleated RBC % 0, Sodium 141, Pota ssium 3.8, Chloride 108 H, Carbon Dioxide 28.0, Anion Gap 5, BUN 15, Creatinine 0.58, Estim Creat Clear Calc 36.74, Est GFR (MDRD) Af Amer 129, Est GFR (MDRD) Non-Af 107, BUN/Creatinine Ratio 26.1 H, Glucose 96, Calcium 8.2 L, Free T4 1.03, Free T3 pg/dL 2.4 Micro: Microbiology 06/21/23 23:23 Stool Stool Occult Blood (KIM) - Final Occult Blood Positive Radiography Diagnostic Testing: Radiology Impression Venous Doppler Study 06/22/23 03:26 Interpretation Summary Deep veins of the right lower extremity are patent and compressible segmentally. There is no evidence of right lower extremity deep vein thrombosis. The right great saphenous vein appears patent and compressible segmentally. Hypoechoic area in the gastrocnemius muscle Ordering Physician: Nilesh Gaona Performed By: Darion Mccormick, RVT Gastric Emptying Nuclear Medicine 06/22/23 15:48 IMPRESSION: 1. UPPER LIMITS OF NORMAL 99m Tc sulfur colloid semi-solid phase (oatmeal) gastric emptying imaging examination. A. There is relative preserved semi-solid phase gastric emptying compared to normal controls with maintained first order kinetics throughout all components of the examination. (Haritha multani al, J Nucl Med Tech 38: 186, 2010). Electronically Signed: Ian Cisneros DO at 12:16 EST , Physical Exam Narrative General: Alert, Oriented x3, Cooperative, No apparent distress HEENT: Atraumatic, PERRLA, EOMI, Normocephalic Oral: Moist Mucosa Neck: Supple, No JVD Lungs: Diminished, Normal air movement, No rhonchi, No wheeze, No rales Cardiovascular: Regular rate, Regular Rhythm, Normal S1, Normal S2, No murmurs Abdomen: Soft, Non Tender, Non-Distended, No Hepato-splenomegaly Extremities: No edema, Capillary Refill Less than 3 Seconds Skin: No rashes, No breakdown Musculoskeletal: Right knee pain with swelling no signs of acute infection Neurological: Motor Exam 5/5 strength throughout, Sensory exam intact to light touch and pain Psych/Mental Status: Normal Affect, Appropriate Assessment & Plan Assessment/Plan (1) Anemia requiring transfusions: (2) Positive fecal occult blood test: (3) Acute cystitis without hematuria: (4) Inability to ambulate due to right knee: (5) History of total knee arthroplasty: QUALIFIERS: Laterality: right Qualified Code(s): Z96.651 - Presence of right artificial knee joint PLAN: Plan Acute blood loss anemia requiring transfusion with hemoglobin of 6.7 g/dL present on admission and a slightly elevated BUN of 27 mg/dL present on admission with Hemoccult positive stools in the ER - Admit to PCU. She was transfused 1 unit of packed red blood cells. CBC shows improvement. Check iron studies, B12 and folate. Alone: HARVEY Hopefully for bleeding source was identified. Gastroparesis. A woman of her size she did have a gastric emptying time of 30 to 45 minutes at max. I suspect she does have some elements of gastric outlet obstruction secondary to duodenal ulcer. I am hoping that medical therapy can help her and avoid a temporary duodenal stent. I will put her on scheduled Reglan and continue PPI therapy. 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 Therefore I had to be cut up smaller as the liquid is not available.. Charges/Coding Visit Charges Inpatient E&M: 98136 Subs Hosp L3
[2023-06-23] MEDS: MELATONIN 3 MG TABLET PO (21:44)
[2023-06-24] VITALS (15 sets, daily range): BP systolic 91–144; BP diastolic 53–71; PULSE 64–74; RESP 16–18; TEMP 36.6–36.9; O2SAT 94–100; BMI 20.1
[2023-06-24] MEDS: HYDROcodone Bitartrate/Apap 5/325 Tablet PO ×3 (05:53→22:13)
[2023-06-24 06:11] LABS: Absolute Lymphocyte Count 1.37 X10^3/uL (0.83-4.51); Absolute Neutrophil Count 2.9 X10^3/uL (2.0-7.7); Basophil# 0.04 X10^3/uL; Basophil% 0.8 % (0-1); Eosinophil# 0.23 X10^3/uL; Eosinophils% 4.4 % (0-5); Hemoglobin 7.6 g/dL (12.0-15.0); Lymphocyte # 1.37 X10^3/ul (0.83-4.51); Lymphocyte % 26.2 % (19-41); Mean Corp Hgb Conc 30.4 g/dL (32-36); Mean Corpuscular Volume 98.8 fL (81-99); Mean Platelet Vol. 9.1 fl (6.2-12.0); Monocyte# 0.64 X10^3/uL; Monocyte% 12.2 % (0-10); NRBC Flagged by Analyzer 0 % (0-5); Neutrophil # 2.94 X10^3/uL (2.7-7.7); Neutrophil % 56.2 % (47-70); Platelet Count 215 K/mm3 (150-450); RBC Distribution Width CV 14.9 % (11.6-14.6); RBC Distribution Width SD 53.4 fl (35.1-43.9); Red Blood Count 2.53 M/mm3 (4.2-5.4); White Blood Count 5.2 K/mm3 (4.4-11.0)
[2023-06-24] MEDS: Acetaminophen/Butalbital/Caffe 1 Tablet PO (09:41)
[2023-06-24] MEDS: Citalopram 20 MG Tablet PO (09:41)
[2023-06-24] MEDS: Ramipril 2.5 MG Capsule PO (09:41)
[2023-06-24] MEDS: 0.9% Saline Lock 10 ML Syringe IV ×2 (09:44→19:29)
[2023-06-24] MEDS: Arthritis Pain Compound 60 CLICK TUBE TOPICAL ×2 (09:44→22:12)
[2023-06-24] MEDS: Pantoprazole Sodium 40 MG in 0.9% Normal Saline (100mL MB+) 100 ML 330 MG IV (09:46)
[2023-06-24] MEDS: Albuterol 2.5 MG/3 ML VIAL.NEB. INHALATION (13:02)
[2023-06-24 13:17] LABS: Hematocrit 23.5 % (37-47); Hemoglobin 7.3 g/dL (12.0-15.0)
--- NOTE | 2023-06-24 14:22 | PN.HOSP_ITS ---
Subjective Subjective He is feeling much better today however hemoglobin dropped this afternoon to 7.3 will transfuse Objective Data Objective Data Vital Signs: Vital Signs Temp Pulse Resp BP Pulse Ox O2 Del Method O2 Flow Rate 97.8 F 71 18 111/71 94 Room Air 2 06/24/23 09:40 06/24/23 13:10 06/24/23 13:10 06/24/23 09:40 06/24/23 09:40 06/24/23 09:40 06/23/23 06:38 Oxygen Flow Rate (L/min) 2 Oxygen Delivery Method Room Air Weight: 121 lb 0.54 oz Body Mass Index (BMI) 20.1 Intake & Output: Intake and Output for Last 24 Hours 06/23/23 06/24/23 06/25/23 03:59 03:59 03:59 Intake Total 647.5 / 647.5 760 / 760 130 / 130 Output Total 500 / 500 350 / 350 0 / 0 Balance 147.5 / 147.5 410 / 410 130 / 130 Lab / Micro Data 06/24/23 13:05 06/23/23 03:45 Labs: Laboratory Results - last 24 hr 06/24/23 05:53: WBC 5.2, RBC 2.53 L, Hgb 7.6 L, Hct 25.0 L, MCV 98.8, MCH 30.0, MCHC 30.4 L, RDW Std Deviation 53.4 H, RDW Coeff of Mark 14.9 H, Plt Count 215, MPV 9.1, Immature Gran % (Auto) 0.200, Neut % (Auto) 56.2, Lymph % (Auto) 26.2, [place] % (Auto) 12.2 H, Eos % (Auto) 4.4, Baso % (Auto) 0.8, Absolute Neuts (auto) 2.9, Absolute Lymphs (auto) 1.37, Nucleated RBC % 0 06/24/23 13:05: Hgb 7.3 L, Hct 23.5 L Micro: Microbiology 06/21/23 23:23 Stool Stool Occult Blood (KIM) - Final Occult Blood Positive Radiography Diagnostic Testing: Radiology Impression Chest X-Ray 06/23/23 08:04 IMPRESSION: 1. Coarse markings noted partially obscuring the spinal lateral view suspicious of an area of atelectasis versus infiltrate and the posterior basal segment of the lower lobes. There is a trace pleural effusion. Findings appear to be located within the RIGHT lower lobe. 2. Remaining lung zones are clear. 3. No evidence congestive failure. Electronically Signed: Ian Hollins MD at 21:13 EST , Physical Exam Narrative General: Alert, Oriented x3, Cooperative, No apparent distress HEENT: Atraumatic, PERRLA, EOMI, Normocephalic Oral: Moist Mucosa Neck: Supple, No JVD Lungs: Diminished, Normal air movement, No rhonchi, No wheeze, No rales Cardiovascular: Regular rate, Regular Rhythm, Normal S1, Normal S2, No murmurs Abdomen: Soft, Non Tender, Non-Distended, No Hepato-splenomegaly Extremities: No edema, Capillary Refill Less than 3 Seconds Skin: No rashes, No breakdown Musculoskeletal: Right knee pain with swelling no signs of acute infection Neurological: Motor Exam 5/5 strength throughout, Sensory exam intact to light touch and pain Psych/Mental Status: Normal Affect, Appropriate Assessment & Plan Assessment/Plan (1) Anemia requiring transfusions: (2) Positive fecal occult blood test: PLAN: Plan 1. Acute blood loss anemia secondary to GI bleed/GERD ?Hemoglobin peaked at 8.6, and it has dropped to 7.3 will transfuse 1 unit today ? EGD showed a duodenal ulcer with possible stricture, gastric emptying study was unremarkable ?Continue with PPI 2. Right knee effusion in the setting of bilateral knee replacements ? She does not have a leukocytosis and she is afebrile without any signs of infection ? Appreciate orthopedic surgery's consultation and evaluation, inflammatory markers are negative and effusion appears little bit better. Continue with ice and will place her on a compounded joint cream from her pharmacy ? PT/OT ? Can discontinue antibiotics as she does not have a UTI or joint infection at this time 3. UTI is ruled out 4. Hypertension ? Blood pressures are stable ? Can continue with her home blood pressure medications 5. Anxiety/depression ? Stable ? Continue with her home medications DVT: SCDs Charges/Coding Visit Charges Inpatient E&M: 53552 Subs Hosp L2
[2023-06-24] MEDS: HYDROmorphone 1 MG/ML Syringe IV (19:29)
--- NOTE | 2023-06-24 20:28 | PN.GI_ITS ---
Subjective Subjective Patient does not have alot pain. Her hemoglobin decrease at 7.3. Objective Data Objective Data Vital Signs: Vital Signs Temp Pulse Resp BP Pulse Ox O2 Del Method O2 Flow Rate 98.4 F 66 18 99/58 L 100 Room Air 2 06/24/23 19:05 06/24/23 19:05 06/24/23 19:05 06/24/23 19:05 06/24/23 19:05 06/24/23 19:05 06/23/23 06:38 Oxygen Flow Rate (L/min) 2 Oxygen Delivery Method Room Air Weight: 121 lb 0.54 oz Body Mass Index (BMI) 20.1 Intake & Output: Intake and Output for Last 24 Hours 06/22/23 06/23/23 06/24/23 23:59 23:59 23:59 Intake Total 628.5 / 648.5 780 / 780 981 / 981 Output Total 300 / 500 550 / 550 0 / 0 Balance 328.5 / 148.5 230 / 230 981 / 981 Lab / Micro Data 06/26/23 05:10 06/25/23 06:10 Labs: Laboratory Results - last 24 hr 06/21/23 23:38: Crossmatch See Detail 06/24/23 05:53: WBC 5.2, RBC 2.53 L, Hgb 7.6 L, Hct 25.0 L, MCV 98.8, MCH 30.0, MCHC 30.4 L, RDW Std Deviation 53.4 H, RDW Coeff of Mark 14.9 H, Plt Count 215, MPV 9.1, Immature Gran % (Auto) 0.200, Neut % (Auto) 56.2, Lymph % (Auto) 26.2, [place] % (Auto) 12.2 H, Eos % (Auto) 4.4, Baso % (Auto) 0.8, Absolute Neuts (auto) 2.9, Absolute Lymphs (auto) 1.37, Nucleated RBC % 0 06/24/23 13:05: Hgb 7.3 L, Hct 23.5 L Micro: Microbiology 06/21/23 23:23 Stool Stool Occult Blood (KIM) - Final Occult Blood Positive Radiography Diagnostic Testing: Radiology Impression Chest X-Ray 06/23/23 08:04 IMPRESSION: 1. Coarse markings noted partially obscuring the spinal lateral view suspicious of an area of atelectasis versus infiltrate and the posterior basal segment of the lower lobes. There is a trace pleural effusion. Findings appear to be located within the RIGHT lower lobe. 2. Remaining lung zones are clear. 3. No evidence congestive failure. Electronically Signed: Ian Hollins MD at 21:13 EST , Physical Exam Narrative General: Alert, Oriented x3, Cooperative, No apparent distress HEENT: Atraumatic, PERRLA, EOMI, Normocephalic Oral: Moist Mucosa Neck: Supple, No JVD Lungs: Diminished, Normal air movement, No rhonchi, No wheeze, No rales Cardiovascular: Regular rate, Regular Rhythm, Normal S1, Normal S2, No murmurs Abdomen: Soft, Non Tender, Non-Distended, No Hepato-splenomegaly Extremities: No edema, Capillary Refill Less than 3 Seconds Skin: No rashes, No breakdown Musculoskeletal: Right knee pain with swelling no signs of acute infection Neurological: Motor Exam 5/5 strength throughout, Sensory exam intact to light touch and pain Psych/Mental Status: Normal Affect, Appropriate Assessment & Plan Assessment/Plan (1) Anemia requiring transfusions: (2) Positive fecal occult blood test: (3) Acute cystitis without hematuria: (4) Inability to ambulate due to right knee: (5) History of total knee arthroplasty: QUALIFIERS: Laterality: right Qualified Code(s): Z96.651 - Presence of right artificial knee joint PLAN: Plan Acute blood loss anemia requiring transfusion with hemoglobin of 6.7 g/dL present on admission and a slightly elevated BUN of 27 mg/dL present on admission with Hemoccult positive stools in the ER - Admit to PCU. She was transfused 1 unit of packed red blood cells. CBC shows improvement. Check iron studies, B12 and folate. Alone: HARVEY Hopefully for bleeding source was identified. Gastroparesis. A woman of her size she did have a gastric emptying time of 30 to 45 minutes at max. I suspect she does have some elements of gastric outlet obstruction secondary to duodenal ulcer. I am hoping that medical therapy can help her and avoid a temporary duodenal stent. I will put her on scheduled Reglan and continue PPI therapy. 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 Therefore I had to be cut up smaller as the liquid is not available.. 06/24- I will transfuse two units of Prbcs. I think she needs repeat upper endoscopy. I would like her to take Reglan therapy but her daughter has some reservations. I will put her on azithromycin x 1 dose to hopefully clear out her stomach. Charges/Coding Visit Charges Inpatient E&M: 48161 Subs Hosp L3
[2023-06-25] VITALS (12 sets, daily range): BP systolic 102–148; BP diastolic 47–73; PULSE 64–80; RESP 16–18; TEMP 36.5–36.9; O2SAT 90–98; BMI 20.2
[2023-06-25] MEDS: HYDROmorphone 1 MG/ML Syringe IV ×2 (00:08→15:56)
[2023-06-25] MEDS: Azithromycin 500 MG in Dextrose 5%-Water (250mL Bag) 250 ML 250 MG IV (02:42)
[2023-06-25] MEDS: HYDROcodone Bitartrate/Apap 5/325 Tablet PO ×3 (05:45→20:54)
[2023-06-25 06:54] LABS: Absolute Lymphocyte Count 1.27 X10^3/uL (0.83-4.51); Absolute Neutrophil Count 3.5 X10^3/uL (2.0-7.7); Basophil# 0.03 X10^3/uL; Basophil% 0.5 % (0-1); Eosinophil# 0.46 X10^3/uL; Eosinophils% 7.6 % (0-5); Hematocrit 36.1 % (37-47); Hemoglobin 11.1 g/dL (12.0-15.0); Lymphocyte # 1.27 X10^3/ul (0.83-4.51); Mean Corp Hgb Conc 30.7 g/dL (32-36); Mean Corpuscular Hgb 26.1 pg (27.0-32.0); Mean Corpuscular Volume 84.9 fL (81-99); Mean Platelet Vol. 9.3 fl (6.2-12.0); Monocyte# 0.77 X10^3/uL; Monocyte% 12.7 % (0-10); NRBC Flagged by Analyzer 0 % (0-5); Neutrophil % 57.9 % (47-70); POSITIVE MORPHOLOGY YES; Platelet Count 222 K/mm3 (150-450); RBC Distribution Width CV 26.4 % (11.6-14.6); RBC Distribution Width SD 79.7 fl (35.1-43.9); Red Blood Count 4.25 M/mm3 (4.2-5.4); White Blood Count 6.1 K/mm3 (4.4-11.0)
[2023-06-25 07:01] LABS: Differential Indicated SCAN CRITERIA MET
[2023-06-25] MEDS: Budesonide Respules 0.5 MG/2 ML AMPUL.NEB. INHALATION ×2 (07:01→20:06)
[2023-06-25] MEDS: Albuterol 2.5 MG/3 ML VIAL.NEB. INHALATION ×3 (07:01→20:06)
[2023-06-25 07:23] LABS: Anion Gap 1 (5-15); BUN 11 mg/dL (7-18); BUN/Creat Ratio 16.9 RATIO (10-20); Calcium,Total 8.9 mg/dL (8.5-10.1); Chloride 106 mmol/L (98-107); Creatinine, Serum 0.65 mg/dL (0.55-1.02); EST Glomerular Filtration Rate 92 mL/min (>60); Est Glom Filt Rate - Afr Amer 112 mL/min (>60); Estimated Creatinine Clearance 37.15 ml/min; Glucose 91 mg/dL (74-106); Potassium 3.8 mmol/L (3.5-5.1); Sodium Level 138 mmol/L (136-145)
[2023-06-25] MEDS: Citalopram 20 MG Tablet PO (08:39)
[2023-06-25] MEDS: Ramipril 2.5 MG Capsule PO (08:39)
[2023-06-25] MEDS: Arthritis Pain Compound 60 CLICK TUBE TOPICAL ×2 (08:39→20:54)
--- NOTE | 2023-06-25 09:01 | PCM.PN.HOSP ---
Subjective Subjective Doing well, knees little bit sore from the activity over the last couple days continue with the joint compound Objective Data Objective Data Vital Signs: Vital Signs Temp Pulse Resp BP Pulse Ox O2 Del Method O2 Flow Rate 97.7 F L 80 16 148/60 H 90 Room Air 2 06/25/23 08:35 06/25/23 08:35 06/25/23 08:35 06/25/23 08:35 06/25/23 08:35 06/25/23 08:35 06/23/23 06:38 Oxygen Flow Rate (L/min) 2 Oxygen Delivery Method Room Air Weight: 121 lb 11.123 oz Body Mass Index (BMI) 20.2 Intake & Output: Intake and Output for Last 24 Hours 06/24/23 06/25/23 06/26/23 03:59 03:59 03:59 Intake Total 760 / 760 1281 / 1281 505 / 505 Output Total 350 / 350 0 / 0 Balance 410 / 410 1281 / 1281 505 / 505 Lab / Micro Data 06/25/23 06:10 06/25/23 06:10 Labs: Laboratory Results - last 24 hr 06/21/23 23:38: Crossmatch See Detail 06/21/23 23:38: Crossmatch See Detail 06/24/23 13:05: Hgb 7.3 L, Hct 23.5 L 06/25/23 06:10: WBC 6.1, RBC 4.25, Hgb 11.1 L, Hct 36.1 L, MCV 84.9 D, MCH 26.1 L, MCHC 30.7 L, RDW Std Deviation 79.7 H, RDW Coeff of Mark 26.4 H, Plt Count 222, MPV 9.3, Immature Gran % (Auto) 0.300, Neut % (Auto) 57.9, Lymph % (Auto) 21.0, [place] % (Auto) 12.7 H, Eos % (Auto) 7.6 H, Baso % (Auto) 0.5, Absolute Neuts (auto) 3.5, Absolute Lymphs (auto) 1.27, Nucleated RBC % 0, Sodium 138, Potassium 3.8, Chloride 106, Carbon Dioxide 31.0, Anion Gap 1 L, BUN 11, Creatinine 0.65, Estim Creat Clear Calc 37.15, Est GFR (MDRD) Af Amer 112, Est GFR (MDRD) Non-Af 92, BUN/Creatinine Ratio 16.9, Glucose 91, Calcium 8.9 Micro: Microbiology 06/23/23 Unknown Urine, Clean Catch Urine Culture - Final Gram negative salazar 06/21/23 23:23 Stool Stool Occult Blood (KIM) - Final Occult Blood Positive Physical Exam Narrative General: Alert, Oriented x3, Cooperative, No apparent distress HEENT: Atraumatic, PERRLA, EOMI, Normocephalic Oral: Moist Mucosa Neck: Supple, No JVD Lungs: Diminished, Normal air movement, No rhonchi, No wheeze, No rales Cardiovascular: Regular rate, Regular Rhythm, Normal S1, Normal S2, No murmurs Abdomen: Soft, Non Tender, Non-Distended, No Hepato-splenomegaly Extremities: No edema, Capillary Refill Less than 3 Seconds Skin: No rashes, No breakdown Musculoskeletal: Right knee pain with swelling no signs of acute infection Neurological: Motor Exam 5/5 strength throughout, Sensory exam intact to light touch and pain Psych/Mental Status: Normal Affect, Appropriate Assessment & Plan Assessment/Plan (1) Anemia requiring transfusions: (2) Positive fecal occult blood test: PLAN: Plan 1. Acute blood loss anemia secondary to GI bleed/GERD ? She received 2 units of packed red blood cells yesterday and her hemoglobin corrected from 7.3-1 indicative of an overcorrection, will recheck hemoglobin at noon ? EGD showed a duodenal ulcer with possible stricture, gastric emptying study was unremarkable ? GI would like to proceed with a dose of azithromycin to enhance GI motility and is recommending a repeat EGD ?Continue with PPI 2. Right knee effusion in the setting of bilateral knee replacements ? She does not have a leukocytosis and she is afebrile without any signs of infection ? Appreciate orthopedic surgery's consultation and evaluation, inflammatory markers are negative and effusion appears little bit better. Continue with ice and will place her on a compounded joint cream from her pharmacy ? PT/OT ? Can discontinue antibiotics as she does not have a UTI or joint infection at this time 3. UTI is ruled out 4. Hypertension ? Blood pressures are stable ? Can continue with her home blood pressure medications 5. Anxiety/depression ? Stable ? Continue with her home medications DVT: SCDs Charges/Coding Visit Charges Inpatient E&M: 49681 Subs Hosp L2
[2023-06-25 09:41] LABS: Anisocytosis 2+; Differential Comment SCANNED; Macrocytosis 1+; Microcytosis 1+
[2023-06-25] MEDS: Pantoprazole Sodium 40 MG in 0.9% Normal Saline (100mL MB+) 100 ML 330 MG IV (11:13)
[2023-06-25 13:08] LABS: Hematocrit 34.4 % (37-47); Hemoglobin 10.4 g/dL (12.0-15.0)
[2023-06-25] MEDS: 0.9% Saline Lock 10 ML Syringe IV (15:56)
[2023-06-26] MEDS: Acetaminophen/Butalbital/Caffe 1 Tablet PO ×2 (01:28→11:27)
[2023-06-26 05:05] VITALS: BP 139/62; PULSE 72; RESP 16; TEMP 36.9; O2SAT 96
[2023-06-26] MEDS: HYDROcodone Bitartrate/Apap 5/325 Tablet PO (05:22)
[2023-06-26 05:49] VITALS: BMI 20.2
[2023-06-26 06:19] LABS: Absolute Lymphocyte Count 1.45 X10^3/uL (0.83-4.51); Absolute Neutrophil Count 3.4 X10^3/uL (2.0-7.7); Basophil# 0.03 X10^3/uL; Basophil% 0.5 % (0-1); Eosinophil# 0.48 X10^3/uL; Eosinophils% 7.6 % (0-5); Hematocrit 35.3 % (37-47); Lymphocyte # 1.45 X10^3/ul (0.83-4.51); Lymphocyte % 22.8 % (19-41); Mean Corp Hgb Conc 31.2 g/dL (32-36); Mean Corpuscular Hgb 26.4 pg (27.0-32.0); Mean Corpuscular Volume 84.7 fL (81-99); Mean Platelet Vol. 8.9 fl (6.2-12.0); Monocyte% 15.7 % (0-10); NRBC Flagged by Analyzer 0 % (0-5); Neutrophil # 3.37 X10^3/uL (2.7-7.7); Neutrophil % 53.1 % (47-70); POSITIVE MORPHOLOGY YES; Platelet Count 244 K/mm3 (150-450); RBC Distribution Width CV 25.8 % (11.6-14.6); RBC Distribution Width SD 77.3 fl (35.1-43.9); Red Blood Count 4.17 M/mm3 (4.2-5.4); White Blood Count 6.4 K/mm3 (4.4-11.0)
[2023-06-26 06:53] VITALS: PULSE 76; RESP 18; O2SAT 93
[2023-06-26 06:54] LABS: Differential Indicated SCAN CRITERIA MET
[2023-06-26] MEDS: Budesonide Respules 0.5 MG/2 ML AMPUL.NEB. INHALATION (06:54)
[2023-06-26] MEDS: Albuterol 2.5 MG/3 ML VIAL.NEB. INHALATION (06:54)
[2023-06-26 07:32] LABS: Anisocytosis 1+; Hypochromasia 1+
[2023-06-26 10:02] VITALS: BP 129/63; PULSE 69; RESP 16; TEMP 36.9; O2SAT 94
[2023-06-26] MEDS: 0.9% Saline Lock 10 ML Syringe IV (10:06)
[2023-06-26] MEDS: Ramipril 2.5 MG Capsule PO (10:06)
[2023-06-26] MEDS: Arthritis Pain Compound 60 CLICK TUBE TOPICAL (10:06)
[2023-06-26] MEDS: Citalopram 20 MG Tablet PO (10:07)
[2023-06-26] MEDS: Pantoprazole Sodium 40 MG in 0.9% Normal Saline (100mL MB+) 100 ML 330 MG IV (10:07)
--- NOTE | 2023-06-26 13:58 | DCINST_ITS ---
Discharge Instructions Diet Discharge Diet: No restrictions and Soft diet Activity Discharge Activity: Return to Normal Activity Dressing / Incision Call your doctor if you observe: Fever of 101 or Higher, Shortness of breath, D izziness, Fainting spells, Swelling in the ankles, Chest pain and Increased palpitations (irregular heartbeat) Follow Up Care Test Results: Test results from this visit will be discussed in further detail at your follow- up appointment, if applicable. Discharge Plan Admission Admit Date/Time: 06/21/23 23:09 Attending Provider: Casa Jain Primary Care Provider: Sergio Bailey Consulting Providers: Nilesh Gaona; García Barth; Ian Lassiter; Casa Guerrero; Micheal Arthur; Parish Arias; Jamie Arthur; Lorena Hanley; Greta Muñoz; Alexey Morris; Amor Barrett Instructions Additional Instructions / Restrictions: f/u as an outpatient for CBC to monitor your anemia Discharge Orders/Prescriptions Prescriptions: New Arthritis Pain Compound 2 click topical BID Qty: 0 0RF pantoprazole [Protonix] 40 mg tablet,delayed release (DR/EC) 40 mg PO DAILY Qty: 30 0RF Continued ondansetron 4 mg tablet,disintegrating 8 mg PO Q8H PRN (Reason: nausea and vomiting) citalopram 20 mg tablet 20 mg PO DAILY ramipril 2.5 mg capsule 2.5 mg PO DAILY budesonide-formoterol 160-4.5 mcg/actuation Hfa Aerosol Inhaler 2 puff INHALATION BID hydrocodone-acetaminophen 5-325 mg tablet 1 tab PO Q8H Referrals / Follow Up: Sergio Bailey MD [Primary Care Provider] - Within 1 Week Rosalio Bonilla DO [Med Staff - Active Staff] - Within 1 Month Disposition Disposition (needs filled in before D/C Order can be placed): Home, Self Care
[2023-06-26 14:11] VITALS: BP 108/66; PULSE 67; RESP 16; TEMP 36.7; O2SAT 94
--- NOTE | 2023-06-26 14:31 | PCM.DC.SUM ---
Providers Date of Admission: 06/21/23 Primary Care Physician: Dr. Sergio Bailey MD Consultations 06/21/23 23:17 Consult: Orthopedics Routine Consulting Provider: [facility] Reason for Consult: Swollen potentially infected right knee. EMERGENT Consult: No Notified: Yes Date Notified: 06/22/23 Time Notified: 07:56 Method of Notification: Verbal 06/22/23 03:18 Consult: Gastroenterology Routine Consulting Provider: [facility] Reason for Consult: Blood loss anemia requiring transfusion with hemoglobin 6.7 present on adm EMERGENT Consult: No Notified: Yes Date Notified: 06/22/23 Time Notified: 06:34 Method of Notification: Text Reason For Visit: SYMPTOMATIC ANEMIA WITH HEMOGLOBIN OF 6.7 AND Diagnosis Discharge Diagnosis (1) Anemia requiring transfusions: Status: Acute Code(s): D64.9 - Anemia, unspecified (2) Positive fecal occult blood test: Status: Acute Code(s): R19.5 - Other fecal abnormalities Medications at Discharge Home Medications budesonide-formoterol HFA 160 mcg-4.5 mcg/actuation aerosol inhaler 2 puff inhalation BID breathing 05/01/21 albuterol sulfate 90 mcg/actuation aerosol inhaler 2 puff inhalation Q4H PRN 06/06/23 citalopram 20 mg tablet 20 mg PO DAILY mental health 06/06/23 ondansetron 4 mg disintegrating tablet 8 mg PO Q8H PRN nausea and vomiting 06/06/23 oxybutynin chloride 10 mg tablet,extended release 24 hr 10 mg PO DAILY 06/06/23 pantoprazole 40 mg tablet,delayed release (Protonix) 20 mg PO DAILY 06/06/23 ramipril 2.5 mg capsule 2.5 mg PO DAILY blood pressure 06/06/23 vit B complex 100 combo no.2 100 mg tablet,extended release (B-100 Complex ER) tab PO 06/06/23 hydrocodone-acetaminophen 5-325mg 5mg-325mg 1 tab PO Q8H pain 06/21/23 Arthritis Pain Compound 2 click topical BID ##0 06/26/23 pantoprazole 40 mg tablet,delayed release (Protonix) 40 mg PO DAILY #30 tabs 06/26/23 Hospital Course Operations None Procedures EGD Summary of Care Provided Minutes Spent on Discharge: 37 Hospital Course: Per HPI: SANDIE HO, is a 83 F with a past medical history of essential hypertension, history of tobacco abuse with subsequent COPD, history of DVT, history of renal neoplasm, history of right-sided occipital neuralgia; with chronic headaches, depression, history of severe claustrophobia; patient requiring sedation to obtain an MRI, GERD, glaucoma, chronic iron deficiency anemia and history of osteoarthritis; 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 Ms. Ho reports her symptoms began approximately 1 day prior to admission with the abrupt onset of right knee pain and swelling that caused her to have difficulty with ambulation. She is unable to bear weight or put any pressure at all on her right leg due to pain with minimal movement. She denies fever, chills, nausea, vomiting, blood in stool, blood in urine, obvious bleeding of any type, discoloration of her right knee or any recent trauma to her right knee. She states she is having pain just above her right kneecap on the proximal portion of her lateral collateral ligament. Her daughter was at the bedside in the ER and helped to augment the history with the patient stating she thinks she had her last colonoscopy approximately 1 year ago, but she is not sure. In the ER she was noted to have severe acute blood loss anemia requiring transfusion with a hemoglobin of 6.7 g/dL present on admission along with Hemoccult positive stools in the setting of known iron deficiency anemia complicated by laboratory evidence of acute cystitis; without hematuria and radiographic evidence of large effusion of the right knee joint on x-rays this admission concerning for possible underlying infection causing severe right knee pain and ambulatory dysfunction and she was then admitted to the PCU for ongoing care for stay that is expected to be greater than 48 hours. Hospital Course: 1. Acute blood loss anemia secondary to GI bleed/GERD?83-year-old female presented to the hospital with anemia as well as right knee pain which is what brought her initially into the hospital. She was found to be anemic down to 6.7 and received blood in the ED. Initially she corrected but then her hemoglobin dropped during her admission so she received another 2 units of blood. She had an EGD which demonstrated a duodenal stricture with a mild Schatzki's ring and a nonbleeding duodenal ulcer. There was food still in the stomach so perfect visualization was not possible. Her discharge was delayed secondary to the fact that her hemoglobin dropped the day before discharge and then she had to receive 2 units of blood and then her hemoglobin stabilized at around 11 on the day of discharge. She had no further bleeding episodes and I discussed with family the plan for discharge today and expressed understanding of the risk and benefits of going home and would like to go home today. Will have her follow-up with her PCP as an outpatient to obtain a CBC to monitor her anemia and will also discharge her on a prescription of Protonix. I do recommend that she follow-up with gastroenterology within a month for further evaluation. There was also some concern given the food in her stomach that she had delayed gastric emptying, of the gastric emptying evaluation demonstrated that she was at the upper limits of normal however in discussion with gastroenterology the test is skewed in older adults and that her test was likely abnormal. Family would prefer to proceed with dietary modifications first prior to initiating any medical therapy for her delayed gastric emptying. 2. Right knee effusion?she denies any trauma directly to the knee and imaging was unremarkable. She did have Doppler evaluation of her right lower extremity though swelling was confined only to the knee and not to the calf or foot, surprisingly the Doppler ultrasound was negative for DVT. Orthopedic surgery evaluated her and did not feel there was any signs of infection so her antibiotics were discontinued, CRP and ESR were normal as was her white count. She was started on and arthritis compound cream here in the hospital which has significantly improved her pain. She will be discharged with this arthritis cream and I do recommend outpatient physical therapy. If she were to have another effusion recommend follow-up with orthopedic surgery as an outpatient. 3. Hypertension, anxiety, depression are chronic medical conditions which complicate her care. Her home medications were continued where appropriate Physical Exam Narrative General: Alert, Oriented x3, Cooperative, No apparent distress HEENT: Atraumatic, PERRLA, EOMI, Normocephalic Oral: Moist Mucosa Neck: Supple, No JVD Lungs: Diminished, Normal air movement, No rhonchi, No wheeze, No rales Cardiovascular: Regular rate, Regular Rhythm, Normal S1, Normal S2, No murmurs Abdomen: Soft, Non Tender, Non-Distended, No Hepato-splenomegaly Extremities: No edema, Capillary Refill Less than 3 Seconds Skin: No rashes, No breakdown Musculoskeletal: Right knee pain with swelling no signs of acute infection Neurological: Motor Exam 5/5 strength throughout, Sensory exam intact to light touch and pain Psych/Mental Status: Normal Affect, Appropriate Weight / BMI Weight Weight: 121 lb 11.123 oz Body Mass Index (BMI) 20.2 ABG / Lab / Microbiology Data 06/26/23 05:10 06/25/23 06:10 Laboratory: Laboratory Results - last 24 hr 06/26/23 05:10: WBC 6.4, RBC 4.17 L, Hgb 11.0 L, Hct 35.3 L, MCV 84.7, MCH 26.4 L, MCHC 31.2 L, RDW Std Deviation 77.3 H, RDW Coeff of Mark 25.8 H, Plt Count 244, MPV 8.9, Immature Gran % (Auto) 0.300, Neut % (Auto) 53.1, Lymph % (Auto) 22.8, [place] % (Auto) 15.7 H, Eos % (Auto) 7.6 H, Baso % (Auto) 0.5, Absolute Neuts (auto) 3.4, Absolute Lymphs (auto) 1.45, Nucleated RBC % 0, Hypochromasia 1+, Anisocytosis 1+ Microbiology: Microbiology 06/23/23 Unknown Urine, Clean Catch Urine Culture - Final GPC Poss Enterococcus sp 06/21/23 23:23 Stool Stool Occult Blood (KIM) - Final Occult Blood Positive D/C Instructions Discharge Diet: No restrictions and Soft diet Call your doctor if you observe: Fever of 101 or Higher, Shortness of breath, Dizziness, Fainting spells, Swelling in the ankles, Chest pain and Increased palpitations (irregular heartbeat) Meaningful Use Info Meaningful Use Diagnoses (Choose all that apply): None applicable Discharge Plan Admission Admit Date/Time: 06/21/23 23:09 Attending Provider: Casa Jain Primary Care Provider: Sergio Bailey Consulting Providers: Nilesh Gaona; García Barth; Ian Lassiter; Casa Guerrero; Micheal Arthur; Parish Arias; Jamie Arthur; Lorena Hanley; Greta Muñoz; Alexey Morris; Amor Barrett Instructions Additional Instructions / Restrictions: f/u as an outpatient for CBC to monitor your anemia Discharge Orders/Prescriptions Prescriptions: New Arthritis Pain Compound 2 click topical BID Qty: 0 0RF pantoprazole [Protonix] 40 mg tablet,delayed release (DR/EC) 40 mg PO DAILY Qty: 30 0RF Continued ondansetron 4 mg tablet,disintegrating 8 mg PO Q8H PRN (Reason: nausea and vomiting) citalopram 20 mg tablet 20 mg PO DAILY ramipril 2.5 mg capsule 2.5 mg PO DAILY budesonide-formoterol 160-4.5 mcg/actuation Hfa Aerosol Inhaler 2 puff INHALATION BID hydrocodone-acetaminophen 5-325 mg tablet 1 tab PO Q8H Referrals / Follow Up: Sergio Bailey MD [Primary Care Provider] - Within 1 Week Rosalio Bonilla DO [Med Staff - Active Staff] - Within 1 Month Disposition Disposition (needs filled in before D/C Order can be placed): Home, Self Care Charges/Coding Visit Charges Inpatient E&M: 81324 Disch Hosp >30min
== END 2023-06-26 14:26 | disposition home or self-care (01) | DRG 812 ==
LOC: ED 23:16 → PCU 23:19
PROVIDERS: Internal Medicine Gastroenterology; Orthopaedic Surgery; Admitting Provider Internal Medicine; Emergency Provider Emergency Medicine; PCP Family Medicine; Visit Provider Family Medicine
PROC: 0DJ08ZZ Inspection of Upper Intestinal Tract, Via Natural or Artificial Opening Endoscopic (ICD-10-PCS; CPT 43235; principal; 2023-06-22 12:25)
DX: D62 Acute posthemorrhagic anemia (principal); K31.1 Adult hypertrophic pyloric stenosis; K31.5 Obstruction of duodenum; J44.9 Chronic obstructive pulmonary disease, unspecified; I10 Essential (primary) hypertension; F32.A Depression, unspecified; K22.2 Esophageal obstruction; K21.00 Gastro-esophageal reflux disease with esophagitis, without bleeding; K44.9 Diaphragmatic hernia without obstruction or gangrene; F41.9 Anxiety disorder, unspecified; R19.5 Other fecal abnormalities; M25.461 Effusion, right knee; M25.561 Pain in right knee; R26.2 Difficulty in walking, not elsewhere classified; K30 Functional dyspepsia; M54.81 Occipital neuralgia; K31.84 Gastroparesis; K26.9 Duodenal ulcer, unspecified as acute or chronic, without hemorrhage or perforation; X58.XXXA Exposure to other specified factors, initial encounter; G89.4 Chronic pain syndrome; F40.240 Claustrophobia; Z96.653 Presence of artificial knee joint, bilateral; Z96.641 Presence of right artificial hip joint; Z79.51 Long term (current) use of inhaled steroids; Z79.891 Long term (current) use of opiate analgesic; Z79.899 Other long term (current) drug therapy; Z85.528 Personal history of other malignant neoplasm of kidney; Z86.718 Personal history of other venous thrombosis and embolism; Z87.891 Personal history of nicotine dependence
CPT/HCPCS: 36415; 71046; 73564; 73700; 78264; 80048; 80053; 81001; 82274; 82607; 82746; 83540; 83550; 83735; 84100; 84439; 84443; 84481; 85014; 85018; 85025; 85379; 85652; 86140; 86850; 86900; 86901; 86920; 86922; 87086; 87088; 88305; 93971; 94640; 94668; 97110; 97162; 97166; 97530; 97535; 99252; 99284; A9541; J7030; J7040; J7120; P9016; A4216; G0463; J2405

== ENCOUNTER 2023-06-28 20:19 | Emergency (ER) | payer MEDICARE, SELFPAY ==
[2023-06-28 20:20] VITALS: BP 151/61; PULSE 63; RESP 18; TEMP 36.4; O2SAT 95
--- NOTE | 2023-06-28 21:15 | ED.VIS.LOWEX ---
HPI History of Present Illness Chief Complaint: Lower Extremity Injury Informant: patient and family Narrative Narrative: Patient has been having pain and swelling for 1 week in the right knee. She had a total knee arthroplasty 10 years ago. She was admitted to the hospital here when she presented to the ED with it more because she was found to have occult GI bleeding and low hemoglobin, and while in the hospital they addressed her knee with testing and orthopedic consultation but as family states, did not leave with an answer as to why she had a swollen right knee. She was discharged yesterday. She states now that the swelling is no longer in the right knee and it is now in the right calf where she is having pain. It hurts to walk and put weight on it, but she has a walker and she is able. She denies any other new problems. [facility] Medical History Back pain Chronic headaches COPD (chronic obstructive pulmonary disease) DVT (deep venous thrombosis) GERD (gastroesophageal reflux disease) Iron deficiency anemia Major depressive disorder Neoplasm of kidney Occipital neuralgia of right side Osteoarthritis Spondylosis Vitamin D deficiency Home Medications budesonide-formoterol HFA 160 mcg-4.5 mcg/actuation aerosol inhaler 2 puff inhalation BID breathing 05/01/21 [History Last Taken Unknown] albuterol sulfate 90 mcg/actuation aerosol inhaler 2 puff inhalation Q4H PRN 06/06/23 [History Last Taken Unknown] citalopram 20 mg tablet 20 mg PO DAILY mental health 06/06/23 [History Last Taken Unknown] ondansetron 4 mg disintegrating tablet 8 mg PO Q8H PRN nausea and vomiting 06/06/23 [History Last Taken Unknown] oxybutynin chloride 10 mg tablet,extended release 24 hr 10 mg PO DAILY 06/06/23 [History Last Taken Unknown] pantoprazole 40 mg tablet,delayed release (Protonix) 20 mg PO DAILY 06/06/23 [History Last Taken Unknown] ramipril 2.5 mg capsule 2.5 mg PO DAILY blood pressure 06/06/23 [History Last Taken Unknown] vit B complex 100 combo no.2 100 mg tablet,extended release (B-100 Complex ER) tab PO 06/06/23 [History Last Taken Unknown] hydrocodone-acetaminophen 5-325mg 5mg-325mg 1 tab PO Q8H pain 06/21/23 [History Last Taken Unknown] Arthritis Pain Compound 2 click topical BID ##0 06/26/23 [Rx Last Taken Unknown] pantoprazole 40 mg tablet,delayed release (Protonix) 40 mg PO DAILY #30 tabs 06/26/23 [Rx Last Taken Unknown] Allergy/AdvReac Type Severity Reaction Status Date / Time No Known Allergies Allergy Verified 06/28/23 20:23 Family History Father CAD (coronary artery disease) CABG x 5 Skin cancer Brother Diabetes CAD (coronary artery disease) age 59 Skin cancer Mother Skin cancer Surgical History History of bilateral knee replacement History of left heart catheterization (~2002) History of open reduction and internal fixation (ORIF) procedure History of right hip replacement Social History household members: none Smoking Status: Former smoker alcohol intake: current alcohol intake frequency: a few times a week substance use type: does not use ROS ROS ED Constitutional Constitutional ED: Denies chills or fever(s) Musculoskeletal Musculoskeletal: Reports extremity pain; Denies neck pain Integumentary Denies Abrasions, rash or wounds Neurologic Neurologic: Denies paresthesias or weakness EXAM Physical Exam Const Vital Signs: 06/28/23 20:20 Temperature 97.6 F L Temperature Source Temporal Pulse Rate 63 Respiratory Rate 18 Blood Pressure 151/61 H Blood Pressure Mean 91 Pulse Ox 95 Oxygen Delivery Method Room Air Positive well nourished and well developed General Appearance ED: well developed and NAD Neck full ROM and supple Back/Spine normal ROM and normal to inspection Extremity Extremity Narrative: Right lower extremity: There is no effusion. She can bend the knee very well. She has tenderness and what feels like a nodule/knot that the daughter draws my attention to in her calf that is tender. It does not feel like a cord. There is no discoloration or cellulitis. The compartments are all soft and nondistended. She is full range of motion with regards to the ankle and the knee and the hip without any difficulty. She is neurovascular intact distally. Neuro oriented x3, no focal motor deficits and no sensory deficits noted Sensorium / Orientation: alert Psych mental status grossly normal and thought process normal Skin no wounds Rashes: no rashes MDM MDM MDM Narrative Medical decision making narrative: Family is concerned here about a DVT. She had a history of 1 apparently in the past, but she does not know if it was actually a DVT or an SVT, they stated was 40 years ago, patient does not recall anything about it with regards to details. Initially I said that I was happy to obtain an ultrasound of the right lower extremity in order to rule this out but the findings and events here are inconsistent with a vascular issue. However upon reviewing the EMR, I see that while she was in the hospital, she already had a venous duplex ultrasound of the right lower extremity that was negative for any vascular thrombosis. Furthermore she had a nonspecific hypoechoic area in the right gastrocnemius. Unknown if this is related, it seems that she did have x-ray that showed an effusion of the right knee, and now clinically it is gone. This is all consistent with a Leavitt's cyst, and the fluid probably has exited the joint and is draining with gravity down into her lower leg. Supportive care is advised, I see no reason to repeat the ultrasound which I discussed at length with them, they already have hydrocodone at home, she states when she takes it it helps some, and she is able to get around. Offered admission if she feels she is unable to walk or have enough help at home but she declines and states that is not the case. She was already advised to follow-up with orthopedics Dr. Arias which I continue to recommend. History & Record Review Additional record(s) reviewed:: Prior inpatient record Discharge Plan Triage Chief Complaint: Lower Extremity Injury ED Provider: Christian Blood Dx/Rx/DC Orders Clinical Impression: Acute pain of right lower extremity Instructions: ED Leavitt's Cyst Prescriptions: No Action ondansetron 4 mg tablet,disintegrating 8 mg PO Q8H PRN (Reason: nausea and vomiting) citalopram 20 mg tablet 20 mg PO DAILY ramipril 2.5 mg capsule 2.5 mg PO DAILY budesonide-formoterol 160-4.5 mcg/actuation Hfa Aerosol Inhaler 2 puff INHALATION BID hydrocodone-acetaminophen 5-325 mg tablet 1 tab PO Q8H Arthritis Pain Compound 2 click topical BID Qty: 0 0RF pantoprazole [Protonix] 40 mg tablet,delayed release (DR/EC) 40 mg PO DAILY Qty: 30 0RF Primary Care Provider: Sergio Bailey Referrals: Parish Arias MD [Med Staff - Active Staff] - (The orthopedic that saw you in the hospital, as previously directed for follow-up upon discharge from the hospital, or the F surgeon who did your knees)
== END 2023-06-28 21:45 | disposition home or self-care (01) ==
PROVIDERS: Emergency Provider Emergency Medicine; PCP Family Medicine; Visit Provider Emergency Medicine
DX: M79.661 Pain in right lower leg (principal); Z96.653 Presence of artificial knee joint, bilateral; Z87.891 Personal history of nicotine dependence
CPT/HCPCS: 99282

== ENCOUNTER → 2023-06-30 | Outpatient (CLI) | payer MEDICARE, SELFPAY ==
--- NOTE | 2023-06-30 14:10 | VDLE_ITS ---
Reason For Study: RLE Pain RIGHT LEFT GSV is normal. FV is compressible, spontaneous, phasic, CFV is compressible, spontaneous, phasic, competent and demonstrates normal competent and demonstrates normal augmentation. augmentation. FV is compressible, spontaneous, phasic, competent and demonstrates normal augmentation. POP V is compressible, spontaneous, phasic, competent and demonstrates normal augmentation. T/P Trunk is compressible. PTV is compressible. RT PerV is compressible. Multiple non vascularized intramuscular hypoechoic areas noted throughout calf. Procedure This is a venous duplex using B-mode, color flow and spectral Doppler. Exam performed in department. The exam was diagnostic. A preliminary report was called and/or faxed to [facility] / Dr. Barth. VL/Venous Duplex US, Unilateral Interpretation Summary There is no evidence of right lower extremity deep vein thrombosis. Right great saphenous vein appears patent and compressible segmentally. Several nonvascular intramuscular right calf areas that are hypoechoic of undetermined etiology. Clinical correlation or additional barbara ging would be pertinent. Normal flow patterns left femoral vein Ordering Physician: García Barth Referring Physician: Sergio Bailey MD Performed By: Hasmukh Kim RVT
--- OUTSIDE RECORDS SUMMARY | 2023-06-30 14:28 | XMS RPT_ITS | CCD ---
Author Name Unknown Address [address] [place] [address] Organization [facility] Care Team Providers Care Circuit Board Drafter Name Role Phone IRIS BELTRAN Unavailable Unavaila ble Brandi MCKEON, Moshe E Unavailable Brandi MCKEON Moshe E Unavailable Rufener PT, Rico Unavailable Hilary Bailey MD Primary Care Provider Brandi MCKEON Moshe E Unavailable Brandi MCKEON, Moshe E Unavailable Rufener PT, Rico Unavailable Hilary Bailey MD Primary Care Provider Brandi MCKEON Moshe E Unavailable Rufener PT, Rico Unavailable Hilary Bailey MD Primary Care Provider Brandi MCKEON Moshe E Unavailable Brandi MCKEON Moshe E Unavailable Rufener PT, Rico Unavailable Hilary Bailey MD Primary Care Provider Rico Kelly PT Unavailable Hilary Bailey MD Primary Care Provider GARCÍA OBANDO Consulting Unavailable ALYSSIA BARRAGAN Referring Unavailable MILLA YU Attending Unavailable DONTE LIAO Admitting Unavailable BAILEY, HILARY A Primary Care Unavailable BAILEY, HILARY A Primary Care Unavailable GARCÍA OBANDO Attending Unavailable CAMILA MANN Referring Unavailable IMANI BAILEYIC A Primary Care Unavailable IMANI BAILEYIC A Primary Care Unavailable IMANI BAILEYIC A Primary Care Unavailable Sangeeta Sim Referring Unavailable HILARY BAILEY A Primary Care Unavailable ALEXANDRIA HERRERA Referring Unavailable ELADIO AUSTIN Attending Unavailable Sangeeta Sim Attending Unavailable HILARY BAILEY A Primary Care Unavailable HILARY BAILEY A Primary Care Unavailable PARVEEN HILARY A Primary Care Unavailable MARCELLA PALMER Attending Unavailable RAÚL HOLLINGSWORTH Admitting Unavailable HILARY BAILEY A Primary Care Unavailable NAROUZE MD~[id number], NAROUZE SAMER Attending Unavailable SPOONER HILARY Primary Care Unavailable NAROUZE MD~[id number], NAROUZE SAMER Admitting Unavailable NAROUZE MD~[id number], NAROUZE SAMER Admitting Unavailable SPOONER HILARY Primary Care Unavailable NAROUZE MD~[id number], NAROUZE SAMER Attending Unavailable SPOONER HILARY Primary Care Unavailable NAROUZE MD~[id number], NAROUZE SAMER Admitting Unavailable NAROUZE MD~[id number], NAROUZE SAMER Attending Unavailable [facility] Primary Care Unavailable NAROUZE MD, SAMER Admitting Unavailable NAROUZE MD, SAMER Attending Unavailable NAROUZE MD~[id number], NAROUZE SAMER Admitting Unavailable SPOONER HILARY Primary Care Unavailable NAROUZE MD~[id number], NAROUZE SAMER Attending Unavailable [facility] Primary Care Unavailable NAROUZE MD, SAMER Admitting Unavailable NAROUZE MD, SAMER Attending Unavailable [facility] Primary Care Unavailable NAROUZE MD, SAMER Admitting Unavailable NAROUZE MD, SAMER Attending Unavailable NAROUZE MD, SAMER Attending Unavailable NAROUZE MD, SAMER Admitting Unavailable [facility] Primary Care Unavailable NAROUZE MD~[id number], NAROUZE SAMER Attending Unavailable [facility] Primary Care Unavailable NAROUZE MD~[id number], NAROUZE SAMER Admitting Unavailable JUJU MASON Attending Unavailable SPOONER HILARY A Primary Care Unavailable Allergies Allergy Classification Reported Allergen(s) Allergy Type Date of Onset Reaction(s) Facility (20 sources) DULoxetine; Translations: [DULOXETINE] Drug Allergy 8 Other: See Comments [facility] Repository (1 source) NO KNOWN ALLERGIES; Translations: [NO KNOWN ALLERGIES] Propensity to adverse reactions to drug (disorder) [facility] Repository Medications Current Medications Medication Drug Class(es) Dates Sig (Normalized) Sig (Original) amoxicillin 875 mg / clavulanate 125 mg oral tablet (1 source) Penicillin-class Antibacterial Start: 06-19-2022 End: 06-26-2022 take 1 tablet by mouth twice daily amoxicillin-clav ulanic acid (AUGMENTIN) 875-125 mg per tablet Take 1 tablet by mouth twice daily for 7 days. 14 tablet 0 06/19/2022 06/26/2022 Active Completed/Discontinued Medications Medication Drug Class(es) Dates Sig (Normalized) Sig (Original) acetaminophen 500 mg oral tablet (11 sources) Start: 05-06-2022 End: 02-17-2023 take 2 tablets by mouth every eight hours as needed acetaminophen (TYLENOL) 500 mg tablet Take 2 tablets by mouth every 8 hours as needed for pain. 0 02/17/2023 Active Problems Active Problems Problem Classification Problem Date Documented Da te Episodic/Chronic Abdominal pain (8 sources) Abdominal pain; Translations: [Unspecified abdominal pain] Onset: 2 Episodic Chronic obstructive pulmonary disease and bronchiectasis (20 sources) Chronic obstructive lung disease; Translations: [Chronic obstructive pulmonary disease, unspecified] Onset: 8 11-29-2019 Chronic Esophageal disorders (20 sources) Gastroesophageal reflux disease; Translations: [Gastro-esophageal reflux disease without esophagitis] 03-01-2017 Chronic Essential hypertension (12 sources) Essential hypertension; Translations: [Essential (primary) hypertension] Onset: 2 05-06-2022 Chronic Gastritis and duodenitis (1 source) Gastritis, unspecified, without bleeding; Translations: [Gastritis without bleeding, unspecified chronicity, unspecified gastritis type] Onset: 3 Episodic Gastrointestinal hemorrhage (3 sources) Gastrointestinal hemorrhage; Translations: [Gastrointestinal hemorrhage, unspecified] Onset: 3 02-14-2023 Episodic Glaucoma (20 sources) Preglaucoma, unspecified, unspecified eye; Translations: [Preglaucoma, unspecified] Onset: 3 03-01-2017 Chronic Headache; including migraine (1 source) Chronic migraine without aura, intractable, without status migrainosus; Translations: [CHR MIGRAINE W/O AURA INTRCT W/O SM] Onset: 3 Chronic Headache; including migraine (20 sources) Headache; Translations: [Headache, unspecified headache type] Onset: 3 07-19-2017 Episodic Headache; including migraine (2 sources) Headache; including migraine; Translations: [HEADACHE UNSPECIFIED] Onset: 3 Mood disorders (20 sources) Severe recurrent major depression; Translations: [Major depressive disorder, recurrent severe without psychotic features] 01-15-2018 Chronic Nutritional deficiencies (20 sources) Vitamin D deficiency; Translations: [Vitamin D deficiency, unspecified] Onset: 6 07-19-2017 Chronic Osteoarthritis (20 sources) Localized, secondary osteoarthritis of the pelvic region and thigh; Translations: [Other unilateral secondary osteoarthritis of hip] Onset: 6 03-01-2017 Chronic Osteoporosis (20 sources) Senile osteoporosis; Translations: [Age-related osteoporosis without current pathological fracture] Onset: 8 01-15-2018 Chronic Other aftercare (1 source) 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 non-steroidal anti-inflammatories (NSAID); Translations: [FCI USE NSAID] Onset: 3 Episodic Other aftercare (1 source) Other intermediate (current) drug therapy; Translations: [OTH FCI CURRENT DRUG THERAPY] Onset: 3 Episodic Other congenital anomalies (20 sources) Congenital spondylolisthesis; Translations: [Congenital spondylolisthesis] Onset: 7 03-01-2017 Chronic Other connective tissue disease (20 sources) History of total hip arthroplasty; Translations: [Presence of left artificial hip joint] Onset: 0 01-13-2020 Chronic Other connective tissue disease (1 source) History of total replacement of left hip joint; Translations: [Presence of left artificial hip joint] Chronic Other connective tissue disease (2 sources) History of revision of right total hip arthroplasty; Translations: [Presence of right artificial hip joint] Chronic Other connective tissue disease (2 sources) Presence of artificial hip joint, bilateral; Translations: [History of total replacement of both hip joints] Onset: 2 Chronic Other connective tissue disease (1 source) Presence of right artificial hip joint; Translations: [History of total hip arthroplasty, right] Onset: 2 Chronic Other connective tissue disease (1 source) Presence of artificial knee joint, bilateral; Translations: [PRESENCE ARTIFICIAL KNEE JNT BILAT] Onset: 3 Chronic Other connective tissue disease (1 source) Bilateral trochanteric bursitis; Translations: [Trochanteric bursitis, right hip] Episodic Other connective tissue disease (1 source) Trochanteric bursitis of right hip; Translations: [Trochanteric bursitis, right hip] Episodic Other connective tissue disease (1 source) Myositis, unspecified; Translations: [MYOSITIS UNSPECIFIED] Onset: 3 Episodic Other diseases of bladder and urethra (20 sources) Overactive bladder; Translations: [Overactive bladder] Onset: 1 12-14-2020 Chronic Other gastrointestinal disorders (1 source) Other constipation; Translations: [Other constipation] Onset: 8 Episodic Other gastrointestinal disorders (2 sources) Alteration in bowel elimination; Translations: [Change in bowel habit] Episodic Other hereditary and degenerative nervous system conditions (1 source) Degenerative disease of nervous system, unspecified; Translations: [DEGENERATIVE DZ NERVOUS SYSTEM UNS] Onset: 3 Chronic Other nervous system disorders (1 source) Difficulty in walking, not elsewhere classified; Translations: [Impaired ambulation] Onset: 2 Chronic Other nervous system disorders (1 source) Other chronic pain; Translations: [OTHER CHRONIC PAIN] Onset: 3 Chronic Other non-traumatic joint disorders (1 source) Pain in left hip; Translations: [PAIN IN LEFT HIP] Onset: 3 Episodic Other upper respiratory infections (1 source) Pharyngitis; Translations: [Acute pharyngitis, unspecified] Episodic Peripheral and visceral atherosclerosis (4 sources) Ischemic colitis; Translations: [Vascular disorder of intestine, unspecified] Onset: 3 04-21-2023 Chronic Residual codes; unclassified (3 sources) Pain; Translations: [Pain, unspecified] Episodic Screening and history of mental health and substance abuse codes (20 sources) Ex-smoker; Translations: [Personal history of nicotine dependence] 03-01-2017 Episodic Spondylosis; intervertebral disc disorders; other back problems (20 sources) Lumbar spondylosis; Translations: [Spondylosis without myelopathy or radiculopathy, lumbar region] Onset: 7 Chronic Spondylosis; intervertebral disc disorders; other back problems (20 sources) Spinal stenosis of lumbar region; Translations: [Spinal stenosis, lumbar region without neurogenic claudication] Onset: 7 Episodic Unclassified (1 source) LOW BACK PAIN, UNSPECIFIED; Translations: [LOW BACK PAIN, UNSPECIFIED] Onset: 3 Past or Other Problems Problem Classification Problem Date Documented Date Episodic/Chronic Deficiency and other anemia (20 sources) Iron deficiency anemia; Translations: [Iron deficiency anemia, unspecified] Onset: 03-02-2017 03-27-2017 Episodic Genitourinary symptoms and ill-defined conditions (20 sources) Microscopic hematuria; Translations: [Other microscopic hematuria] Onset: 08-20-2010 03-01-2017 Episodic Immunizations and screening for infectious disease (20 sources) Anti-nuclear factor positive; Translations: [Other specified abnormal immunological findings in serum] Onset: 03-27-2017 03-27-2017 Episodic Neoplasms of unspecified nature or uncertain behavior (20 sources) Neoplasm of uncertain behavior of kidney; Translations: [Neoplasm of uncertain behavior of unspecified kidney] Onset: 08-20-2010 12-27-2017 Episodic Other aftercare (20 sources) Drug therapy finding; Translations: [Other manager terminal (current) drug therapy] Onset: 03-02-2017 03-02-2017 Episodic Other aftercare (1 source) 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; Translations: [FCI CURRNT USE OPIATE ANALGES] Onset: 09-06-2022 Episodic Other and unspecified benign neoplasm (20 sources) History of polyp of colon; Translations: [Personal history of colonic polyps] Onset: 07-19-2017 07-19-2017 Episodic Other connective tissue disease (20 sources) Muscle, ligament and fascia disorders; Translations: [Disorder of muscle, unspecified] Onset: 09-16-2008 03-01-2017 Episodic Other connective tissue disease (20 sources) Muscle weakness; Translations: [Muscle weakness (generalized)] Onset: 09-16-2008 03-01-2017 Episodic Other connective tissue disease (20 sources) Trochanteric bursitis of left hip; Translations: [Trochanteric bursitis, left hip] Onset: 02-19-2021 02-19-2021 Episodic Other eye disorders (20 sources) Tear film insufficiency; Translations: [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] Onset: 06-24-2013 03-01-2017 Episodic Other injuries and conditions due to external causes (20 sources) H/O: vertebral fracture; Translations: [Personal history of (healed) traumatic fracture] Onset: 01-31-2014 01-15-2018 Episodic Other injuries and conditions due to external causes (20 sources) H/O: musculoskeletal disease; Translations: [Personal history of other (healed) physical injury and trauma] Onset: 07-09-2014 03-01-2017 Episodic Other lower respiratory disease (1 source) Pleurodynia; Translations: [Pleurodynia] Onset: 11-30-2017 Episodic Other lower respiratory disease (20 sources) Dyspnea on exertion; Translations: [Dyspnea, unspecified] Onset: 02-21-2018 02-21-2018 Episodic Other nervous system disorders (1 source) White matter disease, unspecified; Translations: [WHITE MATTER DISEASE UNSPECIFIED] Onset: 09-26-2022 Episodic Other non-traumatic joint disorders (12 sources) Hip pain; Translations: [Pain in right hip] Onset: 05-04-2022 05-06-2022 Episodic Other non-traumatic joint disorders (3 sources) Pain in right hip; Translations: [Hip pain, acute, right] Onset: 05-02-2022 Episodic Other non-traumatic joint disorders (1 source) Pain in unspecified hip; Translations: [Hip pain] Onset: 05-04-2022 Episodic Other screening for suspected conditions (not mental disorders or infectious disease) (20 sources) Patient encounter status; Translations: [Encounter for screening for cardiovascular disorders] Onset: 01-15-2018 01-15-2018 Episodic Results Test Name Value Interpretation Reference Range Facil ity Vital Signs Date Time Vital Sign Value Performing Clinician Shruthi miles 04-21-2023 16:21-0400 Body height 165.1 cm Sangeeta Smi MD Work Phone: [facility] 04-21-2023 16:21-0400 Body temperature 98.6 [degF] Sangeeta Sim MD Work Phone: [facility] 04-21-2023 16:21-0400 Body weight 52.8 kg Sangeeta Sim MD Work Phone: [facility] 04-21-2023 16:21-0400 Diastolic blood pressure 88 mm[Hg] Sangeeta Sim MD Work Phone: [facility] 04-21-2023 16:21-0400 Heart rate 94 /min Sangeeta Sim MD Work Phone: [facility] 04-21-2023 16:21-0400 SaO2% (BldA) [Mass fraction] 96 % Sangeeta Sim MD Work Phone: [facility] 04-21-2023 16:21-0400 Systolic blood pressure 102 mm[Hg] Sangeeta Sim MD Work Phone: [facility] 06-17-2022 12:11-0500 Body temperature 96.21 [degF] García Pendlebury RAILROAD PURCHASING AGENT.NURSE EXTERN Work Phone: [facility] 06-17-2022 12:11-0500 Body weight 54.98 kg García Pendlebury RAILROAD PURCHASING AGENT.NURSE EXTERN Work Phone: [facility] 06-17-2022 12:11-0500 Diastolic blood pressure 76 mm[Hg] García Pendlebury RAILROAD PURCHASING AGENT.NURSE EXTERN Work Phone: [facility] 06-17-2022 12:11-0500 Heart rate 71 /min García Pendlebury RAILROAD PURCHASING AGENT.NURSE EXTERN Work Phone: [facility] 06-17-2022 12:11-0500 Respiratory rate 18 /min García Pendlebury RAILROAD PURCHASING AGENT.NURSE EXTERN Work Phone: [facility] 06-17-2022 12:11-0500 SaO2% (BldA) [Mass fraction] 98 % García Pendlebury RAILROAD PURCHASING AGENT.NURSE EXTERN Work Phone: [facility] 06-17-2022 12:11-0500 Systolic blood pressure 122 mm[Hg] García Pendlebury RAILROAD PURCHASING AGENT.NURSE EXTERN Work Phone: [facility] 06-16-2022 11:51-0500 Body temperature 97.3 [degF] Sofia Denbow PA-C Work Phone: [facility] 06-16-2022 11:51-0500 Body weight 54.8 kg Sofia Denbow PA-C Work Phone: [facility] 06-16-2022 11:51-0500 Diastolic blood pressure 78 mm[Hg] Sofia Denbow PA-C Work Phone: [facility] 06-16-2022 11:51-0500 Heart rate 92 /min Sofia Denbow PA-C Work Phone: [facility] 06-16-2022 11:51-0500 Respiratory rate 18 /min Sofia Denbow PA-C Work Phone: [facility] 06-16-2022 11:51-0500 SaO2% (BldA) [Mass fraction] 96 % Sofia Denbow PA-C Work Phone: [facility] 06-16-2022 11:51-0500 Systolic blood pressure 126 mm[Hg] Sofia Denbow PA-C Work Phone: [facility] 05-09-2022 08:04-0500 Body weight 55.34 kg Eladio Austin PA-C Work Phone: [facility] 02-21-2022 09:53-0400 Body height 167.6 cm Ольга Devin PA-C Work Phone: [facility] 02-21-2022 09:53-0400 Body temperature 97.3 [degF] Ольга Devin PA-C Work Phone: [facility] 02-21-2022 09:53-0400 Body weight 56.25 kg Ольга Devin PA-C Work Phone: [facility] 02-21-2022 09:53-0400 Diastolic blood pressure 84 mm[Hg] Ольга Devin PA-C Work Phone: [facility] 02-21-2022 09:53-0400 Heart rate 96 /min Ольга Saranac PA-C Work Phone: [facility] 02-21-2022 09:53-0400 Respiratory rate 14 /min Ольга Devin PA-C Work Phone: [facility] 02-21-2022 09:53-0400 SaO2% (BldA) [Mass fraction] 95 % Ольга Devin PA-C Work Phone: [facility] 02-21-2022 09:53-0400 Systolic blood pressure 120 mm[Hg] Ольга Devin PA-C Work Phone: [facility] 11-17-2021 11:09-0400 Body height 167.6 cm Eladio Austin PA-Najma Work Phone: [facility] 11-17-2021 11:09-0400 Body weight 55.79 kg Eladio COATES-C Work Phone: [facility] Encounters Encounter Date Encounter Type Care Provider Facility Start: 06-19-2023 End: 06-19-2023 ambulatory [facility] Ambulatory Start: 06-19-2023 End: 06-20-2023 ambulatory BRIT PEREA MD~[id number] [facility] Start: 04-21-2023 End: 04-22-2023 ambulatory Sangeeta Sim Facility:[facility] Start: 04-21-2023 End: 04-21-2023 Patient encounter procedure Sangeeta Sim MD Work Phone: General Surgery Procedures Date Procedure Procedure Detail Performing Clinician Start: 02-15-2023 Antibody screen GARCÍA OBANDO Plan of Treatment Date Care Activity Detail Author Start: 05-30-2026 Urine microalbumin profile [facility] Start: 02-16-2026 DIABETES SCREEN DIABETES SCREEN [facility] Start: 02-16-2026 Diabetes Screening Diabetes Screening [facility] Start: 05-02-2025 DIABETES SCREEN DIABETES SCREEN [facility] Start: 03-03-2023 Covid-19 Vaccine () Covid-19 Vaccine () [facility] Start: 03-03-2023 Influenza vaccination INFLUENZA (#1) [facility] Start: 12-10-2022 DIABETES SCREEN DIABETES SCREEN [facility] Start: 08-21-2022 COVID-19 VACCINE (5 - Moderna series) COVID-19 VACCINE (5 - Moderna series) [facility] Start: 07-03-2022 ADVANCE DIRECTIVE DISCUSSION ADVANCE DIRECTIVE DISCUSSION [facility] Start: 03-03-2022 Influenza vaccination [facility] Start: 07-03-2021 ADVANCE DIRECTIVE DISCUSSION ADVANCE DIRECTIVE DISCUSSION [facility] Start: 03-03-2021 Influenza vaccination INFLUENZA (#1) [facility] Start: 01-25-2021 COVID-19 VACCINE (3 - Booster for Moderna series) COVID-19 VACCINE (3 - Booster for Moderna series) [facility] Start: 10-23-2020 COVID-19 VACCINE (3 - Booster for Moderna series) COVID-19 VACCINE (3 - Booster for Moderna series) [facility] Start: 2000 RSV Vaccine (1 - 1-dose 60+ series) RSV Vaccine (1 - 1-dose 60+ series) [facility] Start: 1990 SHINGRIX VACCINE (1 of 2) SHINGRIX VACCINE (1 of 2) [facility] Bacteria identified in Urine by Culture URINE CULTURE Microbiology Routine Urinary frequency Ordered: 06/16/2022 [facility] Work Phone: Immunizations Immunization Date Immunization Notes Care Provider Fa [facility] 03-18-2023 influenza, high dose seasonal, preservative-free Sangeeta Sim MD Work Phone: [facility] 04-20-2022 COVID-19 booster vaccine, age 12+ yr, bivalent (PFIZER-BIONTTelly) Eladio Austin PA-C Work Phone: [facility] 04-13-2022 influenza, high dose seasonal, preservative-free Sangeeta Sim MD Work Phone: [facility] 05-07-2021 zoster vaccine recombinant Sangeeta Sim MD Work Phone: [facility] 01-20-2021 zoster vaccine recombinant Sangeeta Sim MD Work Phone: [facility] 03-27-2020 influenza, high dose seasonal, preservative-free Bridger Spencer PT Work Phone: [facility] 04-17-2018 influenza, high dose seasonal, preservative-free Bridger Spencer PT Work Phone: [facility] 04-29-2017 influenza, high dose seasonal, preservative-free Bridger Spencer PT Work Phone: [facility] 05-30-2016 DTaP-hepatitis B and poliovirus vaccine Sangeeta Sim MD Work Phone: [facility] 05-30-2016 tetanus toxoid, redu ana laura diphtheria toxoid, and acellular pertussis vaccine, adsorbed Bridgerchapito Spencer PT Work Phone: [facility] 05-03-2016 influenza, high dose seasonal, preservative-free Bridger Tj PT Work Phone: [facility] Work Phone: 03-16-2015 pneumococcal conjuga te vaccine, 13 valent Bridger Spencer PT Work Phone: [facility] 03-03-2014 influenza virus vacc ine, whole virus Bridger Spencer PT Work Phone: [facility] 04-12-2012 influenza virus vacc ine, unspecified formulation Bridger Spencer PT Work Phone: [facility] 06-03-2010 influenza virus vacc ine, unspecified formulation Bridger Spencer PT Work Phone: [facility] 08-16-2008 pneumococcal polysaccharide vaccine, 23 valent Bridger Spencer PT Work Phone: [facility] 07-03-2003 pneumococcal polysaccharide vaccine, 23 valent Sangeeta Sim MD Work Phone: [facility] Payers Date Payer Category Payer Medicare [employer] ANTHEM MY[employer]US [id number] 2019-Present [phone] [address] [place] [address] Medicare [id number] 2019 Unknown ANTHEM BLUE CROS S AND BLUE SHIELD ANTHEM MEDIBLUE ACCESS [id number] 2019-Present [phone] [address] [place] [address] PPO [id number] 2019 Unknown ANTHEM BLUE CROS S AND BLUE SHIELD ANTHEM MEDIBLUE ACCESS [id number] 2019-Present [phone] [address] [place] [address] PPO [id number] 2015 Unknown [id number] 1940 Unknown [id number] 1940 Unknown [id number] 1940 Unknown [id number] 1940 Unknown [id number] 1940 Unknown [id number] 1940 Unknown [id number] 1940 Unknown [id number] 1940 Unknown [id number] 1940 Unknown [id number] 1940 Unknown [id number] 4 Social History Date Type Detail Facility Start: 11-29-2019 End: 06-17-2022 Tobacco smoking status NHIS Ex-smoker [facility] Work Phone: End: 06-29-2005 History of tobacco use Current smoker [facility] End: 06-29-2005 History of tobacco use Cigarette Smoker [facility] Start: 12-14-2020 End: 05-04-2022 Alcohol intake Current drinker of alcohol (finding) [facility] Start: 11-29-2019 End: 12-11-2019 History SDOH Alcohol Frequency 5 [facility] Start: 11-29-2019 End: 12-11-2019 History SDOH Alcohol Std Drinks 1 [facility] Start: 12-11-2019 History SDOH Transport Med 2 [facility] Start: 12-11-2019 Education 12 [facility] Start: 1940 Sex Assigned At Not on file [facility] Start: 09-10-2021 End: 05-05-2022 Exposure to SARS-CoV-2 (event) Not sure [facility] Start: 11-29-2019 End: 06-06-2020 Cigarettes smoked current (pack per day) - Reported 0.2 [facility] Work Phone: Start: 11-29-2019 End: 06-17-2022 Tobacco use and exposure Smokeless tobacco non-user [facility] Work Phone: Start: 11-29-2019 End: 06-06-2020 Alcohol Use Disorder Identification Test - Consumption [AUDIT-C] [facility] Work Phone: How often to you hav e a drink containing alcohol? 4 or more times a week [facility] Work Phone: How many standard dr inks containing alcohol do you have on a typical day? 1 or 2 [facility] Work Phone: How often do you hav e 6 or more drinks on 1 occasion? Never [facility] Work Phone: How hard is it for y ou to pay for the very basics like food, housing, medical care, and heating Not hard at all [facility] Work Phone: (I/We) worried wheth er (my/our) food would run out before (I/we) got money to buy more. Never true [facility] Work Phone: In the past 12 month s, was there a time when you were not able to pay the mortgage or rent on time? No [facility] Work Phone: Start: 02-16-2023 Alcohol Comment occasional [facility] Start: 12-02-2020 End: 01-01-2021 Exposure to SARS-CoV-2 (event) Yes [facility] Medical Equipment Procedure Code Equipment Code Equipment Origin al Text Equipment Identifier Dates Graft Bn Canc 30 ml Allgrft - [id number] Start: 07-09-2014 Graft Bn Canc 30 ml Allgrft - [id number] Start: 07-09-2014 Watson Bn Smpx P Ra dpq Fd Strl - [id number] Start: 05-16-2011 Watson Bn Smpx P Ra dpq Fd Strl - [id number] Start: 05-16-2011 Cement Simplex P Bone Radiopaque Full Dose Sterile - [id number] Start: 12-10-2019 Cement Simplex P Bone Radiopaque Full Dose Sterile - [id number] Start: 12-10-2019 Nvw-Kt-C-Kind Implant - [id number] Start: 05-16-2011 Clinical Notes 01-21-2021 to 04-21-2023 Sangeeta Sim MD - 04/21/2023 4:33 PM EDTBMonika whittington LPN - 04/21/2023 4:24 PM EDTTelephone Encounter - Zoie Mckeon RN - 02/22/2023 11:21 AM EDTPatient Instructions Note Date & Type Note Facility 04-21-2023 Note HNO ID: [id number] Author: Sangeeta Sim MD Service: ? Author Type: Physician Type: Progress Notes Filed: 04/22/2023 5:55 PM Note Text: Argenis Ho 1940 REFERRING PHYSICIAN: No ref. provider found CHIEF COMPLAINT: Consult (Ischemic Colitis) HPI: The patient is a 82 year old female with a complaint of severe generalized abdominal pain. She had undergone workup at [facility] in January of this year with CT scan, EGD/colonoscopy and was diagnosed with ischemic colitis. She presents with her daughter for treatment of this pain. She points to the mid abdomen and all throughout for this pain. She states that it comes and goes. She also complains of headache. They do not wish to return to [facility], the daughter states that she did not like the physician there. The patient wants treatment for the abdominal pain. She was told to stop using NSAIDs, however, she has chronic back pain and her daughter states that she eats it and this has been going on for years (the back pain) Her daughter states that 'they' don't want to treat the back pain until the abdominal pain is addressed. The patient was started on hydrocodone for pain. Patient notes fecal urgency, she denies constipation and/or diarrhea. Patient also notes urinary urgency, the patient has seen a urologist who had nothing to offer for treatment for this. PAST MEDICAL HISTORY Diagnosis Date Abnormal stress test Cardiac cath was negative Age-related osteoporosis without current pathological fracture 10/16/2017 Brachial neuritis or radiculitis NOS 05/13/2010 Bucket handle tear of lateral meniscus(717.41) 12/05/2005 Cervical arthritis Cervical spondylosis without myelopathy 04/13/2007 Cervicalgia 03/22/2007 Chronic obstructive pulmonary disease (HCC) 02/05/2018 Compression fracture of lumbar spine, non-traumatic (HCC) 01/31/2014 Congenital spondylolisthesis 04/13/2007 Depressive disorder, not elsewhere classified Displacement of lumbar intervertebral disc without myelopathy 01/31/2014 Ex-smoker GERD (gastroesophageal reflux disease) Headache 07/17/2012 History of dislocation of hip 07/09/2014 right Lumbago 07/28/2009 Lumbar spinal stenosis Lumbar spondylosis 07/28/2009 Microscopic hematuria 08/20/2010 Muscle weakness (generalized) 09/16/2008 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 ARTHROSCOPY KNEE DIAGNOSTIC W/WO SYNOVIAL BX SPX 06/2010 Arthroscopy, knee COLONOSCOPY 03/10/2022 COLONOSCOPY FLX DX W/COLLJ SPEC WHEN PFRMD Colonoscopy CYSTOURETHROSCOPY Cystoscopy EGD W/O [facility] SPEC VARICIES INJ 03/10/2022 PAST SURGICAL HISTORY OF R THR x 3 PAST SURGICAL HISTORY OF Bilat TKR PAST SURGICAL HISTORY OF L Hip pinning (later removed) PAST SURGICAL HISTORY OF Heart Cath PAST SURGICAL HISTORY OF Dilation of left ureter PAST SURGICAL HISTORY OF 05/2011 L knee revision PAST SURGICAL HISTORY OF 2014 R THR - [place] PAST SURGICAL HISTORY OF Right 07/2014 total hip replacement Current Outpatient Medications Medication Sig HYDROcodone-acetaminophen (NORCO) 5-325 mg per tablet Take 1 tablet by mouth every 8 hours as needed for pain. budesonide-formoterol (SYMBICORT) 160-4.5 mcg/actuation inhaler Inhale 2 Puffs as instructed two times a day. Shortness of breath citalopram hydrobromide (CELEXA) 10 mg tablet Take 20 mg by mouth once daily. ramipril (ALTACE) 2.5 mg capsule Take 2.5 mg by mouth once daily. ondansetron (ZOFRAN) 4 mg tablet Take 0.5-1 tablets by mouth every 8 hours as needed for Nausea/Vomiting. acetaminophen (TYLENOL) 500 mg tablet Take 2 tablets by mouth every 8 hours as needed for pain. (Patient not taking: Reported on 04/21/2023) aspirin 81 mg chewable tablet Take 1 tablet by mouth once daily. venlafaxine ER (EFFEXOR XR) 37.5 mg 24 hr capsule Take 1 capsule by mouth daily at bedtime for 5 days. buprenorphine (BUTRANS) 7.5 mcg/hour transdermal patch Apply 1 Patch as directed every Monday. (Patient not taking: Reported on 04/21/2023) metoprolol succinate ER (TOPROL XL) 50 mg 24 hr tablet Take 50 mg by mouth once daily. (Patient not taking: Reported on 04/21/2023) pantoprazole DR (PROTONIX) 40 mg tablet Take 40 mg by mouth once daily. (Patient not taking: Reported on 04/21/2023) hydrocortisone 2.5 % ointment Apply to affected area on face 2 times daily as needed f (more content not included)... [facility] 04-21-2023 History of Presen t illness Narrative Argenis Ho 1940 REFERRING PHYSICIAN: No ref. provider found CHIEF COMPLAINT: Consult (Ischemic Colitis) HPI: The patient is a 82 year old female with a complaint of severe generalized abdominal pain. She had undergone workup at [facility] in January of this year with CT scan, EGD/colonoscopy and was diagnosed with ischemic colitis. She presents with her daughter for treatment of this pain. She points to the mid abdomen and all throughout for this pain. She states that it comes and goes. She also complains of headache. They do not wish to return to [facility], the daughter states that she did not like the physician there. The patient wants treatment for the abdominal pain. She was told to stop using NSAIDs, however, she has chronic back pain and her daughter states that she eats it and this has been going on for years (the back pain) Her daughter states that 'they' don't want to treat the back pain until the abdominal pain is addressed. The patient was started on hydrocodone for pain. Patient notes fecal urgency, she denies constipation and/or diarrhea. Patient also notes urinary urgency, the patient has seen a urologist who had nothing to offer for treatment for this. PAST MEDICAL HISTORY Diagnosis Date Abnormal stress test Cardiac cath was negative Age-related osteoporosis without current pathological fracture 10/16/2017 Brachial neuritis or radiculitis NOS 05/13/2010 Bucket handle tear of lateral meniscus(717.41) 12/05/2005 Cervical arthritis Cervical spondylosis without myelopathy 04/13/2007 Cervicalgia 03/22/2007 Chronic obstructive pulmonary disease (HCC) 02/05/2018 Compression fracture of lumbar spine, non-traumatic (HCC) 01/31/2014 Congenital spondylolisthesis 04/13/2007 Depressive disorder, not elsewhere classified Displacement of lumbar intervertebral disc without myelopathy 01/31/2014 Ex-smoker GERD (gastroesophageal reflux disease) Headache 07/17/2012 History of dislocation of hip 07/09/2014 right Lumbago 07/28/2009 Lumbar spinal stenosis Lumbar spondylosis 07/28/2009 Microscopic hematuria 08/20/2010 Muscle weakness (generalized) 09/16/2008 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 ARTHROSCOPY KNEE DIAGNOSTIC W/WO SYNOVIAL BX SPX 06/2010 Arthroscopy, knee COLONOSCOPY 03/10/2022 COLONOSCOPY FLX DX W/COLLJ SPEC WHEN PFRMD Colonoscopy CYSTOURETHROSCOPY Cystoscopy EGD W/O [facility] SPEC VARICIES INJ 03/10/2022 PAST SURGICAL HISTORY OF R THR x 3 PAST SURGICAL HISTORY OF Bilat TKR PAST SURGICAL HISTORY OF L Hip pinning (later removed) PAST SURGICAL HISTORY OF Heart Cath PAST SURGICAL HISTORY OF Dilation of left ureter PAST SURGICAL HISTORY OF 05/2011 L knee revision PAST SURGICAL HISTORY OF 2014 R THR - [place] PAST SURGICAL HISTORY OF Right 07/2014 total hip replacement Current Outpatient Medications Medication Sig HYDROcodone-acetaminophen (NORCO) 5-325 mg per tablet Take 1 tablet by mouth every 8 hours as needed for pain. budesonide-formoterol (SYMBICORT) 160-4.5 mcg/actuation inhaler Inhale 2 Puffs as instructed two times a day. Shortness of breath citalopram hydrobromide (CELEXA) 10 mg tablet Take 20 mg by mouth once daily. ramipril (ALTACE) 2.5 mg capsule Take 2.5 mg by mouth once daily. ondansetron (ZOFRAN) 4 mg tablet Take 0.5-1 tablets by mouth every 8 hours as needed for Nausea/Vomiting. acetaminophen (TYLENOL) 500 mg tablet Take 2 tablets by mouth every 8 hours as needed for pain. (Patient not taking: Reported on 04/21/2023) aspirin 81 mg chewable tablet Take 1 tablet by mouth once daily. venlafaxine ER (EFFEXOR XR) 37.5 mg 24 hr capsule Take 1 capsule by mouth daily at bedtime for 5 days. buprenorphine (BUTRANS) 7.5 mcg/hour transdermal patch Apply 1 Patch as directed every Monday. (Patient not taking: Reported on 04/21/2023) metoprolol succinate ER (TOPROL XL) 50 mg 24 hr tablet Take 50 mg by mouth once daily. (Patient not taking: Reported on 04/21/2023) pantoprazole DR (PROTONIX) 40 mg tablet Take 40 mg by mouth once daily. (Patient not taking: Reported on 04/21/2023) hydrocortisone 2.5 % ointment Apply to affected area on face 2 times daily as needed for 1-2 weeks after PDT (Patient not taking: Reported on 04/21/2023) oxybutynin ER (DITROPAN XL) 10 mg 24 hr tablet TAKE 1 TABLET BY MOUTH ONCE DAILY AT SUPPER TIME (Patient not taking: Reported on 04/21/2023) ascorbic acid, vitamin C, (VITAMIN C) 500 mg tablet Take 1 tablet by mouth twice daily with meals. albuterol HFA (PROVENTIL HFA, VENTOLIN HFA) 90 mcg/actuation inhaler INHALE 1 PUFF BY MOUTH EVERY 4 HOURS NEEDED AND 15 MINUTES PRIOR TO ACTIVITY (Patient not taking: Reported on 04/21/2023) Cholecalciferol, Vitamin D3, 2,000 unit cap Take 1 capsule by mouth once daily. (Patient not taking: Reported on 04/21/2023) CALCIUM CITRATE/VITAMIN D3 (CITRACAL + D ORAL) Take by mouth once daily. (Patient not taking: Reported on 04/21/2023) No current facility-administered medications for this visit. ALLERGIES: Cymbalta [Duloxetine] PERSONAL HISTORY: Social History Tobacco Use Smoking status: Former Packs/day: 0.15 Years: 1.00 Additional pack years: 0.00 Total pack years: 0.15 Types: Cigarettes Quit date: 06/29/2005 Years since quittin.8 Smokeless tobacco: Never Vaping Use Vaping Use: Never used Substance Use Topics Alcohol use: Yes Alcohol/week: 2.0 - 3.0 standard drinks of alcohol Types: 2 - 3 Glasses of wine per week Comment: occasional Drug use: No FAMILY HISTORY Problem Relation Age of Onset Cancer Father Coronary Artery Disease Father Early 70's CABG x5 Coronary Artery Disease Brother aged 52, [place] Diabetes Brother Type II No Family History Other Colon Cancer/Polyps The review of systems data was entered by the nurse and reviewed by me Nursing Notes: Monika Fontanez LPN 04/21/2023 4:27 PM Signed REVIEW OF SYSTEMS: General: The patient NOTES fatigue, denies weight loss, denies weight gain, denies feeling hot, and denies feelings of cold. Eyes: The patient denies glaucoma, denies eye injury/surgery, does not wear glasses or contacts. Ear/Nose/Throat: The patient denies allergies, denies hayfever, denies ear infections, and denies bloody noses. Cardiovascular: The patient denies chest pain, denies heart disease, denies high blood pressure,denies cardiac stent, denies prior heart attack, denies irregular heart beat, denies high cholesterol, denies poor circulation, denies heart failure, other cardiac issues, denies claudication, denies cold feet, denies peripheral arterial stent. Respiratory: The patient denies tuberculosis, denies pneumonia, NOTES frequent cough, denies pulmonary embolism, NOTES shortness of breath, and denies coughing up blood, NOTES copd. Gastrointestinal: The patient denies difficulty swallowing, denies acid reflux, denies ulcers, denies vomiting, denies jaundice/hepatitis, denies gallbladder problems, denies black or tarry stools, denies hemorrhoids, denies bleeding from rectum, denies diverticulitis, denies constipation, denies diarrhea, denies loss of stool control, and denies hernias. Kidney/Bladder: The patient denies kidney stones, NOTES urine infections, and denies bloody urine. Skin: The patient denies a history of skin cancer, denies bleeding/changing moles, and denies a history of skin rash. Neurologic: The patient denies a history of epilepsy/convulsions, NOTES headaches, denies head/spinal injuries, and denies stroke/TIA. Psychiatric: The patient denies psychiatric medications, NOTES depression, and denies voices, denies substance abuse. Endocrine: The patient denies thyroid disorders, denies diabetes, and denies hormonal problems. Hematologic: The patient denies a history of bruising, denies bleeding, and denies anemia, denies blood clots. Infections: The patient denies a history of measles and mumps, denies rheumatic fever, and denies sexually transmitted diseases. Musculoskeletal: The patient NOTES back pain/injury, NOTES back problems, NOTES sciatica, denies knee/foot trouble, NOTES arthritis, or denies gout. When was patient's last Mammogram screening? N/A Last Colonoscopy: 01/2023 Monika Fontanez LPN PHYSICAL EXAMINATION: General: The patient is 82 year old female, well nourished, well hydrated in no acute distress. The patient is oriented to time, place, and person. VITALS: Blood pressure 102/88, pulse 94, temperature 37 C (98.6 F), height 165.1 cm (5' 5 ), weight 52.8 kg (116 lb 6.4 oz), SpO2 96 %. Body mass index is 19.37 kg/m . Head: Normal cephalic, atraumatic Eyes: pupils are equally round, sclera are clear/anicteric Neck is supple with no tracheal deviation Respiratory: Normal respiratory excursion and pattern. Abdominal exam: benign Extremities: no clubbing, cyanosis or edema. Neuro: non focal Psych: normal mood Assessment IMPRESSION: abdominal pain, ischemic colitis PLAN: I have discussed the above with the patient and her daughter who is present with her. I have no surgical options to offer the patient. I have rec'd patient be evaluated by GI medicine and since she had been already undergone workup at [facility], that would be the best location to be evaluated and treated at. They did not want me to refer them to GI medicine, and they didn't want to go back to [facility] The patient's daughter states that she was told by someone who answers phones that I could help and treat the patient. I have explained that there is no indication for surgery and that the patient would be best treated by a diving fisher. I have explained that the patient should stop her NSAID use, but then the patient's daughter said that the doctors at [facility] told her otherwise. The patient's daughter was angry and stated that she wasted her time with this appointment.. I apologized, explaining that I have no control over what is scheduled in the clinic and once again offered referral within [facility], but they left the clinic without scheduling for any future appointments. I have answered all questions to the patient s satisfaction and the patient has no further questions. I have confirmed and edited as necessary, the PFSH and ROS obtained by others. . Diagnoses: (R10.9) Continuous severe abdominal pain (primary encounter diagnosis) (K55.9) Ischemic colitis (HCC) Medical Decision Making: Problems: Low: Stable chronic illness Medical Decision Making Level: 2 - Straightforward Sangeeta Sim MD documented in this encounter [facility] 04-21-2023 Nurse Note REVIEW OF SYSTEMS: General: The patient NOTES fatigue, denies weight loss, denies weight gain, denies feeling hot, and denies feelings of cold. Eyes: The patient denies glaucoma, denies eye injury/surgery, does not wear glasses or contacts. Ear/Nose/Throat: The patient denies allergies, denies hayfever, denies ear infections, and denies bloody noses. Cardiovascular: The patient denies chest pain, denies heart disease, denies high blood pressure,denies cardiac stent, denies prior heart attack, denies irregular heart beat, denies high cholesterol, denies poor circulation, denies heart failure, other cardiac issues, denies claudication, denies cold feet, denies peripheral arterial stent. Respiratory: The patient denies tuberculosis, denies pneumonia, NOTES frequent cough, denies pulmonary embolism, NOTES shortness of breath, and denies coughing up blood, NOTES copd. Gastrointestinal: The patient denies difficulty swallowing, denies acid reflux, denies ulcers, denies vomiting, denies jaundice/hepatitis, denies gallbladder problems, denies black or tarry stools, denies hemorrhoids, denies bleeding from rectum, denies diverticulitis, denies constipation, denies diarrhea, denies loss of stool control, and denies hernias. Kidney/Bladder: The patient denies kidney stones, NOTES urine infections, and denies bloody urine. Skin: The patient denies a history of skin cancer, denies bleeding/changing moles, and denies a history of skin rash. Neurologic: The patient denies a history of epilepsy/convulsions, NOTES headaches, denies head/spinal injuries, and denies stroke/TIA. Psychiatric: The patient denies psychiatric medications, NOTES depression, and denies voices, denies substance abuse. Endocrine: The patient denies thyroid disorders, denies diabetes, and denies hormonal problems. Hematologic: The patient denies a history of bruising, denies bleeding, and denies anemia, denies blood clots. Infections: The patient denies a history of measles and mumps, denies rheumatic fever, and denies sexually transmitted diseases. Musculoskeletal: The patient NOTES back pain/injury, NOTES back problems, NOTES sciatica, denies knee/foot trouble, NOTES arthritis, or denies gout. When was patient's last Mammogram screening? N/A Last Colonoscopy: 01/2023 Monika Fontanez LPN documented in this encounter [facility] 04-15-2023 Note HNO ID: [id number] Author: Note, Interface Service: ? Author Type: ? Type: Progress Notes Filed: 04/15/2023 5:26 AM Note Text: Epic Scheduled Downtime: 04/15/2023 1:00:00 AM to 04/15/2023 1:28:00 AM [facility] 02-22-2023 Miscellaneous Notes PATIENT INFORMATION Record ID: [id number] [facility]: [facility] Snook: [facility] Attending: Milla Yu Center: Hospital Medicine INSTRUCTIONS All Clear SN to remind patient of next upcoming appointment date, time, location All Clear All Clear All Clear SURVEY INFORMATION Medical/Nurse Construction Skills Teacher: Zoie Mckeon 1. Your discharge instructions are important in guiding you through the recovery process. Is there anything I could help you clarify on your discharge instructions? (Standard Question) No 2. Do you have your follow up appointment related to your hospital stay scheduled within the next 30 days? (Standard Question) Yes 3. Do you have all the necessary equipment and supplies at home? (Standard Question) Yes 4. Many patients have concerns about their medications once they are home. Do you have any questions about getting or taking your medications? (Standard Question) No 5. Do you have any new or different symptoms? (Standard Question) No documented in this encounter [facility] 02-18-2023 Note HNO ID: [id number] Author: Milla Yu MD Service: Hospital Medicine Author Type: Physician Type: Progress Notes Filed: 03/01/2023 12:33 PM Note Text: Documentation Query Based on your medical judgment of the clinical indicators outlined below, please clarify the condition: (Please type X next to your response and sign) 02/16 Surgical pathology, resulted 02/20 Dr Kaivta Jensen. Stomach, biopsy: Gastric mucosa with mild reactive gastropathy and minimal chronic inflammation. There is no evidence of Helicobacter pylori infection on routine stains. B. Stomach, prepyloric ulcer, biopsy: Gastric mucosa with mild reactive gastropathy. There is no evidence of Helicobacter pylori infection on routine stains. C. Esophagus, distal, biopsy: Squamoglandular junction mucosa with minimal chronic inflammation. No intestinal metaplasia or dysplasia is identified. D. Colon, left, biopsy: Colonic mucosa, predominantly necrotic with fibrinopurulent exudate, consistent with ulceration, (see comment). There some features, such as crypt withering, which raise the possibility of ischemia.Clinical correlation is required. Please clarify the significance of the pathology report x I agree with the above pathology report The above pathology report is not clinically significant The above pathology report is indeterminate Other, please specify [facility] 02-18-2023 Note HNO ID: [id number] Author: Nikia Merchant APRN.CNP Service: Gastroenterology Author Type: Nurse Practitioner Type: Progress Notes Filed: 02/24/2023 7:25 AM Note Text: Documentation Query Based on your medical judgment of the clinical indicators outlined below, please clarify the condition: (Please type X next to your response and sign) Clinical Indicators: 02/17 POC note Nikia VALLE EGD revealed 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 02/16 Surgical pathology updated 02/23 Dr. Walls ESOPHAGUS BIOPSY Received in formalin labeled with the patients name and distal esophagus biopsy are 3 fatima, glistening, irregularly shaped soft tissue fragments Esophagus, distal, biopsy: Squamoglandular junction mucosa with minimal chronic inflammation. No intestinal metaplasia or dysplasia is identified. Please clarify the status of Tirado's esophagus X Diagnosis Ruled In Diagnosis Ruled Out Other, please specify [facility] 02-17-2023 Note HNO ID: [id number] Author: Nikia Merchant APRN.SHANDRA Service: Gastroenterology Author Type: Nurse Practitioner Type: Plan of Care Filed: 02/17/2023 5:08 PM Note Text: GI following for GI bleed. S/p EGD/ Colonoscopy yesterday with Dr. Obando. Colonoscopy with Segmental moderate inflammation was found in the sigmoid colon and in the descending colon secondary to ischemic colitis. Biopsied. 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 Biopsied. CTA completed today demonstrating No convincing blush of contrast to suggest active bleeding. Colitis distal transverse through distal descending colon. Consider infectious, inflammatory, ischemic etiology Indeterminate 1.2 cm left renal lesion. Reviewed medical chart and discussed with GI attending. No further acute GI interventions indicated. Follow outpatient with Dr. Obando. Add daily baby aspirin to medication regimen. GI will sign off. GI Attending: Dr. Obando [facility] 02-17-2023 Note HNO ID: [id number] Author: Daysi De Jesus RN Service: Care Management Author Type: Registered Nurse Type: Care Mgt Progress Note Filed: 02/17/2023 4:44 PM Note Text: CARE MANAGEMENT PROGRESS NOTE SERVICE DATE: 02/17/2023 SERVICE TIME: 1642 LOS: 3 days Needs Prior to Discharge: To Be Determined;Discharge Prescriptions IMM Follow Up Copy Given: Yes Copy given to:: Patient Method: In Person Chart reviewed, patient underwent EGD and Colonoscopy on 02/16. Plan for CTA. Discharge plan is home with family assist. Family will provide transportation home. Will continue to follow. SIGNATURE: Daysi De Jesus RN PATIENT NAME: Argenis Ho DATE: February 17, 2023 TIME: 4:42 PM PAGER/CONTACT #: [phone] [facility] 02-17-2023 Note HNO ID: [id number] Author: Milla Yu MD Service: Hospital Medicine Author Type: Physician Type: Progress Notes Filed: 02/17/2023 12:01 PM Note Text: DEPARTMENT OF HOSPITAL MEDICINE PROGRESS NOTE SERVICE DATE: 02/17/2023 Hospital Medicine/Primary Attending: Milla Carney MD NIGHT AND WEEKEND COVERAGE: After 7pm please page [phone] SUBJECTIVE: patient complains of sharp left sided chest pain started in AM and lasted for 30 min , no radiation , no relieving or exacerbating factors . Patient and daughter expressed concerns about GI plan to do CTA and it is not ordered yet , I told them I will discuss with GI team , Patient denies any signs of active bleed. OBJECTIVE: PHYSICAL EXAM: BP 138/76 Pulse 98 Temp (Src) 98.3 (Oral) Resp 18 Ht 5' 5 (1.65m) Wt 115 lb (52.2kg) SpO2 91% BMI 19.14 kg/(m2). O2 Therapy: Room Air General: NAD, appears comfortable Resp: Clear to auscultation B/L, no wheeze/rhonchi, unlabored CV: RRR, Normal S1S2, No murmur/rub/gallop GI: soft, NT/ND, + BS Ext: no cyanosis/clubbing/edema Neuro: AANDO x 3, speech fluent MEDICATIONS: Current Facility-Administered Medications Medication Dose Route Frequency iv contrast (radiology procedure) INTRAVENOUS DIRECTED PRN pantoprazole DR 40 mg tab(s) (PROTONIX) 40 mg ORAL DAILY acetaminophen 650 mg tab(s) (TYLENOL) 650 mg ORAL q 4 H PRN aluminum-magnesium hydroxide-simethicone 200-200-20 mg/5 mL 30 mL 30 mL ORAL q 6 H PRN guaiFENesin 600 mg ER tab(s) (MUCINEX) 600 mg ORAL q 12 H PRN melatonin 3 mg tab(s) 3 mg ORAL AT BEDTIME PRN ondansetron (PF) 4 mg injection (ZOFRAN) 4 mg INTRAVENOUS q 6 H PRN polyethylene glycol 3350 17 g packet 17 g ORAL DAILY PRN docusate sodium 100 mg cap(s) (COLACE) 100 mg ORAL BID PRN polyvinyl alcohol-povidone 1.4-0.6 % 1 Drop (REFRESH) 1 Drop BOTH EYES PRN saliva substitute combo no.9 15 mL (BIOTENE mouthwash) 15 mL MUCOUS MEMBRANE (TOPICAL MOUTH AND THROAT) TID PRN sodium chloride 0.65 % 2 Washington 2 Washington EACH NOSTRIL PRN prochlorperazine 10 mg injection (COMPAZINE) 10 mg INTRAVENOUS q 6 H PRN metoprolol succinate ER 50 mg tab(s) (TOPROL XL) 50 mg ORAL DAILY [START ON 02/19/2023] buprenorphine transdermal patch 7.5 mcg/hr (BUTRANS) 1 Patch TRANSDERMAL q SUN NaCl 0.9% iv flush bag 20 mL INTRAVENOUS PRN citalopram 10 mg tab(s) (CeleXA) 10 mg ORAL DAILY oxyCODONE IR 5 mg tab(s) (ROXICODONE) 5 mg ORAL q 6 H PRN trospium 20 mg tab(s) (SANCTURA) 20 mg ORAL BID AC venlafaxine ER 37.5 mg cap(s) (EFFEXOR XR) 37.5 mg ORAL AT BEDTIME DATA: Diagnostic tests reviewed for today's visit: CBC, Coags, BMP, Mg, Phos Recent Labs 02/17/23 0540 02/16/23 0344 02/15/23 2152 02/15/23 0108 WBC 7.67 15.17* -- 15.67* HB 9.9* 10.6* 10.4* 9.6* HCT 31.2* 32.9* -- 30.6* PLT 213 208 -- 181 NA -- 138 -- 140 K -- 4.1 -- 4.0 CHLOR -- 104 -- 110* CO2 -- 22 -- 21* BUN -- 8 -- 15 CREAT -- 0.79 -- 0.79 GLUC -- 107* -- 85 CA -- 9.5 -- 8.7 CSF AND Dilantin Liver Function, Amylase, AND Lipase Cardiac Enzymes ABGs Problem List GI bleed (POA: Status not on file) GERD (gastroesophageal reflux disease) (POA: Yes) Headache, unspecified headache type (POA: Yes) COPD (chronic obstructive pulmonary disease) (HCC) (POA: Yes) Hematuria (POA: Status not on file) HOSPITAL COURSE: Argenis A Aurora is a 82 year old female with -GI bleed Continue po PPI daily Monitor Hgb and keep>7, trending up Advance diet S/p EGD and colonoscopy 02/16 No source of active bleed , follow biopsy results Segmental moderate inflammation was found in the sigmoid colon and in the descending colon secondary to ischemic colitis. Biopsied, results pending . Plan to proceed with CTA for further evaluation . Start BASA 80 mf daily at discharge GI follows -Headache /Migraine , improved S/P Migraine cocktail Tylenol prn -HTN Controlled Continue BB -Episode of chest pain this morning Had similar event a week ago and work up was negative Trop slightly elevated , will repeat 2 more q6h EKG VTE Prophylaxis: APPROPRIATE Disposition: Home Plan of care discussed with: Provider, RN, Patient SIGNATURE: Milla Yu MD PATIENT NAME: Argenis Ho PAGER/CONTACT #: Jennifer team spencer [facility] 02-16-2023 Note HNO ID: [id number] Author: Milla Yu MD Service: Hospital Medicine Author Type: Physician Type: Progress Notes Filed: 02/17/2023 8:28 AM Note Text: DEPARTMENT OF HOSPITAL MEDICINE PROGRESS NOTE SERVICE DATE: 02/16/2023 Hospital Medicine/Primary Attending: Milla Carney MD NIGHT AND WEEKEND COVERAGE: After 7pm please page [phone] SUBJECTIVE: headache almost gone No acute events Daughter at bedside Denies any complaints OBJECTIVE: PHYSICAL EXAM: BP 106/64 Pulse 67 Temp (Src) 96.8 (Temporal) Resp 13 Ht 5' 5 (1.65m) Wt 115 lb (52.2kg) SpO2 92% BMI 19.14 kg/(m2). O2 Therapy: Room Air, Liters: 2 General: NAD, appears comfortable Resp: Clear to auscultation B/L, no wheeze/rhonchi, unlabored CV: RRR, Normal S1S2, No murmur/rub/gallop GI: soft, NT/ND, + BS Ext: no cyanosis/clubbing/edema Neuro: AANDO x 3, speech fluent MEDICATIONS: Current Facility-Administered Medications Medication Dose Route Frequency pantoprazole DR 40 mg tab(s) (PROTONIX) 40 mg ORAL DAILY acetaminophen 650 mg tab(s) (TYLENOL) 650 mg ORAL q 4 H PRN aluminum-magnesium hydroxide-simethicone 200-200-20 mg/5 mL 30 mL 30 mL ORAL q 6 H PRN guaiFENesin 600 mg ER tab(s) (MUCINEX) 600 mg ORAL q 12 H PRN melatonin 3 mg tab(s) 3 mg ORAL AT BEDTIME PRN ondansetron (PF) 4 mg injection (ZOFRAN) 4 mg INTRAVENOUS q 6 H PRN polyethylene glycol 3350 17 g packet 17 g ORAL DAILY PRN docusate sodium 100 mg cap(s) (COLACE) 100 mg ORAL BID PRN polyvinyl alcohol-povidone 1.4-0.6 % 1 Drop (REFRESH) 1 Drop BOTH EYES PRN saliva substitute combo no.9 15 mL (BIOTENE mouthwash) 15 mL MUCOUS MEMBRANE (TOPICAL MOUTH AND THROAT) TID PRN sodium chloride 0.65 % 2 Washington 2 [place] EACH NOSTRIL PRN prochlorperazine 10 mg injection (COMPAZINE) 10 mg INTRAVENOUS q 6 H PRN metoprolol succinate ER 50 mg tab(s) (TOPROL XL) 50 mg ORAL DAILY [START ON 02/19/2023] buprenorphine transdermal patch 7.5 mcg/hr (BUTRANS) 1 Patch TRANSDERMAL q SUN NaCl 0.9% iv flush bag 20 mL INTRAVENOUS PRN citalopram 10 mg tab(s) (CeleXA) 10 mg ORAL DAILY oxyCODONE IR 5 mg tab(s) (ROXICODONE) 5 mg ORAL q 6 H PRN trospium 20 mg tab(s) (SANCTURA) 20 mg ORAL BID AC venlafaxine ER 37.5 mg cap(s) (EFFEXOR XR) 37.5 mg ORAL AT BEDTIME DATA: Diagnostic tests reviewed for today's visit: CBC, Coags, BMP, Mg, Phos Recent Labs 02/16/23 0344 02/15/23 2152 02/15/23 0108 WBC 15.17* -- 15.67* HB 10.6* 10.4* 9.6* HCT 32.9* -- 30.6* PLT 208 -- 181 NA 138 -- 140 K 4.1 -- 4.0 CHLOR 104 -- 110* CO2 22 -- 21* BUN 8 -- 15 CREAT 0.79 -- 0.79 GLUC 107* -- 85 CA 9.5 -- 8.7 CSF AND Dilantin Liver Function, Amylase, AND Lipase Cardiac Enzymes ABGs Problem List GI bleed (POA: Status not on file) GERD (gastroesophageal reflux disease) (POA: Yes) Headache, unspecified headache type (POA: Yes) COPD (chronic obstructive pulmonary disease) (HCC) (POA: Yes) HOSPITAL COURSE: Argenis Ho is a 82 year old female with -GI bleed Continue po PPI daily Monitor Hgb and keep>7, trending up Advance diet S/p EGD and colonoscopy 02/16 No source of active bleed , follow biopsy results Start BASA 80 mf daily at discharge No further interventions per GI GI follows -Headache /Migraine , improved S/P Migraine cocktail Tylenol prn -HTN Controlled Continue BB VTE Prophylaxis: APPROPRIATE Disposition: Home Plan of care discussed with: Provider, RN, Patient SIGNATURE: Milla Yu MD PATIENT NAME: Argenis Ho PAGER/CONTACT #: [facility] team [facility] 02-16-2023 Note HNO ID: [id number] Author: Hoda Gunn APRN.CRNA Service: Anesthesiology Author Type: Nurse Physician Specialist Type: Anesthesia Procedure Notes Filed: 02/16/2023 11:44 AM Note Text: ANESTHESIOLOGY PROCEDURE NOTE PIV General Information Procedure Start Time/Medication Administration: 02/16/2023 11:24 AM Staffing TOLL SERVICE OBSERVER: Jacque Marin APRN.TOLL SERVICE OBSERVER Performed by: TOLL SERVICE OBSERVER Preparation Sterility Preparation: hand hygiene performed prior to procedure, surgical cap used, mask used, skin prep agent completely dried prior to procedure Site Prep: Chloraprep Procedure Details Indication: need for IV access Needle Size/Type: 20 gauge angiocath Orientation: Right Location: Antecubital Imaging Guidance Used: No SIGNATURE: Hoda Gunn APRN.TOLL SERVICE OBSERVER PATIENT NAME: Argenis Ho DATE: February 16, 2023 TIME: 11:44 AM CSN: [id number] [facility] 02-15-2023 Note HNO ID: [id number] Author: Daysi De Jesus RN Service: Care Management Author Type: Registered Nurse Type: Care Mgt Initial Assessment Filed: 02/15/2023 3:57 PM Note Text: CARE MANAGEMENT: ASSESSMENT AND DISCHARGE PLAN SERVICE DATE: February 15, 2023 SERVICE TIME: 1555 PCP: Hilary Bailey MD Primary Contact: Extended Emergency Contact Information Primary Emergency Contact: Bladimir Ho Address: [address] [place] [address] [facility] Mobile Relation: Spouse Secondary Emergency Contact: Ro Wilkins Mobile Relation: Daughter Admission Status: Inpatient Insurance Provider: [employer] ACCESS Discharge Planning requested by: Per Department Practice Potential Transition Plans To Be Determined Advance Directives Current Advance Directive: Health Care Power of [place] Machine Operator In Chart: Yes Up To Date and Valid: Yes Current Living Arrangements and Support Lives with: Spouse/significant other Type of Residence: Private Residence (House) Does the patient have to climb stairs at home?: stairs outside the home;stairs within the home;Yes Support: Family members, Spouse/significant other How do you manage to accomplish the following: Independent: Ambulation;Bathe/Shower;Dress;Me als/Meal Prep;Going to the bathroom;Medication Management;Transportation to appointments/community Current Services/Equipment Current Post-Acute Service(s): DME Current DME Type: Bedside commode, Cane, Shower seat, Rolling walker, Wheelchair-manual Discharge Planning Patient Goal(s): General wellness, Be able to go home, Independent living, Less pain [place] of Choice Explained: [place] of Choice Given: No Reason Not Given: No placements necessary Are you interested in bedside delivery of your medications? No Discharge Planning Participant(s): Patient;Children Patient/Family Comments: Caregiver Assessment: Caregiver is ready, willing and able to meet the patient's needs as recommended by the inter-professional team: No Caregiver needed Transport at Discharge: Transportation Arrangements: Car Needs Prior to Discharge: Needs Prior to Discharge: To Be Determined;Discharge Prescriptions Post-Acute Discharge Plan: Initial assessment completed with patient and daughters at bedside. Pt. Lives with spouse in a multilevel home with 2 steps to enter, bed and bath on first level prior to admission patient was independent walks with a cane or walker, drives. + PCP Dr. Hilary Bailey, last visit was in January. + DME, + RX coverage, uses [facility] pharmacy in [place]. Goal is to return home at d/c. Family to provide transportation home. Will continue to follow. SIGNATURE: Daysi De Jesus RN PATIENT NAME: Argenis Ho DATE: February 15, 2023 TIME: 3:54 PM CONTACT #: [phone] [facility] 02-15-2023 Note HNO ID: [id number] Author: Milla Yu MD Service: Hospital Medicine Author Type: Physician Type: Progress Notes Filed: 02/15/2023 12:49 PM Note Text: DEPARTMENT OF HOSPITAL MEDICINE PROGRESS NOTE SERVICE DATE: 02/15/2023 SERVICE TIME: 12:46 PM Hospital Medicine/Primary Attending: Milla Carney MD NIGHT AND WEEKEND COVERAGE: After 7pm please page [phone] SUBJECTIVE: patient continues to have headache , reports history of migraine , reports bright red blood/ rectal. Denies CP/SOB. Denies nausea/vomiting/diarrhea. Family at bedside OBJECTIVE: PHYSICAL EXAM: BP 130/61 Pulse 76 Temp (Src) 98.4 (Temporal) Resp 18 Ht 5' 5 (1.65m) Wt 115 lb (52.2kg) SpO2 94% BMI 19.14 kg/(m2). O2 Therapy: Room Air General: NAD, appears comfortable Resp: Clear to auscultation B/L, no wheeze/rhonchi, unlabored CV: RRR, Normal S1S2, No murmur/rub/gallop GI: soft, NT/ND, + BS Ext: no cyanosis/clubbing/edema Neuro: AANDO x 3, speech fluent MEDICATIONS: Current Facility-Administered Medications Medication Dose Route Frequency acetaminophen 650 mg tab(s) (TYLENOL) 650 mg ORAL q 4 H PRN aluminum-magnesium hydroxide-simethicone 200-200-20 mg/5 mL 30 mL 30 mL ORAL q 6 H PRN guaiFENesin 600 mg ER tab(s) (MUCINEX) 600 mg ORAL q 12 H PRN melatonin 3 mg tab(s) 3 mg ORAL AT BEDTIME PRN ondansetron (PF) 4 mg injection (ZOFRAN) 4 mg INTRAVENOUS q 6 H PRN polyethylene glycol 3350 17 g packet 17 g ORAL DAILY PRN docusate sodium 100 mg cap(s) (COLACE) 100 mg ORAL BID PRN polyvinyl alcohol-povidone 1.4-0.6 % 1 Drop (REFRESH) 1 Drop BOTH EYES PRN saliva substitute combo no.9 15 mL (BIOTENE mouthwash) 15 mL MUCOUS MEMBRANE (TOPICAL MOUTH AND THROAT) TID PRN sodium chloride 0.65 % 2 Washington 2 [place] EACH NOSTRIL PRN prochlorperazine 10 mg injection (COMPAZINE) 10 mg INTRAVENOUS q 6 H PRN pantoprazole 40 mg injection (PROTONIX) 40 mg INTRAVENOUS BID AC (0600/1600) metoprolol succinate ER 50 mg tab(s) (TOPROL XL) 50 mg ORAL DAILY [START ON 02/19/2023] buprenorphine transdermal patch 7.5 mcg/hr (BUTRANS) 1 Patch TRANSDERMAL q SUN NaCl 0.9% iv flush bag 20 mL INTRAVENOUS PRN citalopram 10 mg tab(s) (CeleXA) 10 mg ORAL DAILY oxyCODONE IR 5 mg tab(s) (ROXICODONE) 5 mg ORAL q 6 H PRN trospium 20 mg tab(s) (SANCTURA) 20 mg ORAL BID AC venlafaxine ER 37.5 mg cap(s) (EFFEXOR XR) 37.5 mg ORAL AT BEDTIME DATA: Diagnostic tests reviewed for today's visit: CBC, Coags, BMP, Mg, Phos Recent Labs 02/15/23 0108 WBC 15.67* HB 9.6* HCT 30.6* PLT 181 NA 140 K 4.0 CHLOR 110* CO2 21* BUN 15 CREAT 0.79 GLUC 85 CA 8.7 CSF AND Dilantin Liver Function, Amylase, AND Lipase Cardiac Enzymes ABGs Problem List GI bleed (POA: Status not on file) GERD (gastroesophageal reflux disease) (POA: Yes) Headache, unspecified headache type (POA: Yes) COPD (chronic obstructive pulmonary disease) (HCC) (POA: Yes) HOSPITAL COURSE: Argenis Ho is a 82 year old female with -GI bleed Continue IV PPI Monitor Hgb and keep>7 Clear liquid diet GI follows -Headache /Migraine Migraine cocktail x1 Tylenol prn -HTN Controlled Continue BB VTE Prophylaxis: APPROPRIATE Disposition: Home Plan of care discussed with: Provider, RN, Patient SIGNATURE: Milla Yu MD PATIENT NAME: Argenis Ho DATE: February 15, 2023 TIME: 12:46 PM PAGER/CONTACT #: Jennifer palmer [facility] 06-20-2022 Miscellaneous Notes Patient returned phone call, notified of urine culture results, verbalized understanding of instructions given and to picker script at [facility]. Ludmila Dukes MA Left message for pt to call back. Simona Nix MA Please notify patient that urine culture +, will treat with augmentin for 7 days. If still having symptoms needs to follow up with urology or PCP for further evaluation. Pres[facility]. Shelbi Lei APRN.NURSE EXTERN documented in this encounter [facility] 06-17-2022 Miscellaneous Notes Left message for patient to call office back, patient to make an appointment to see Dr Sim regarding pain symptoms. Patient called asking to leave message for Dr. Sim. Patient what's to know what the next plan is for pain. Patient states she has currently exhausted all measures at this time and nothing is helping. Please advise and call patient at [phone]. Lay Bailey LPN documented in this encounter [facility] 06-17-2022 Note HNO ID: [id number] Author: García Alvarez APRN.SHANDRA Service: ? Author Type: Nurse Practitioner Type: Progress Notes Filed: 06/17/2022 12:56 PM Note Text: Subjective HPI Nontoxic-appearing female presents urgent care chief complaint sore throat. Duration of symptoms 2 days. Associated symptoms sore throat. States sore throat is worse at night than during the day. Does have some postnasal drip. Denies any OTC medication use. Denies any known sick contacts. Denies any fever body aches chills cough chest pain shortness of breath pleuritic pain hemoptysis nausea vomiting abdominal pain or change in bowel or bladder habits. Past medical history prescription medication use allergies reviewed. .Patient presents with: Sore Throat: Cough, HARVEY x2 days PAST MEDICAL HISTORY Diagnosis Date Abnormal stress test Cardiac cath was negative Age-related osteoporosis without current pathological fracture 10/16/2017 Brachial neuritis or radiculitis NOS 05/13/2010 Bucket handle tear of lateral meniscus(717.41) 12/05/2005 Cervical arthritis Cervical spondylosis without myelopathy 04/13/2007 Cervicalgia 03/22/2007 Chronic obstructive pulmonary disease (HCC) 02/05/2018 Compression fracture of lumbar spine, non-traumatic (HCC) 01/31/2014 Congenital spondylolisthesis 04/13/2007 Depressive disorder, not elsewhere classified Displacement of lumbar intervertebral disc without myelopathy 01/31/2014 Ex-smoker GERD (gastroesophageal reflux disease) Headache 07/17/2012 History of dislocation of hip 07/09/2014 right Lumbago 07/28/2009 Lumbar spinal stenosis Lumbar spondylosis 07/28/2009 Microscopic hematuria 08/20/2010 Muscle weakness (generalized) 09/16/2008 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 ARTHROSCOPY KNEE DIAGNOSTIC W/WO SYNOVIAL BX SPX 06/2010 Arthroscopy, knee COLONOSCOPY 03/10/2022 COLONOSCOPY FLX DX W/COLLJ SPEC WHEN PFRMD Colonoscopy CYSTOURETHROSCOPY Cystoscopy EGD W/O [facility] SPEC VARICIES INJ 03/10/2022 PAST SURGICAL HISTORY OF R THR x 3 PAST SURGICAL HISTORY OF Bilat TKR PAST SURGICAL HISTORY OF L Hip pinning (later removed) PAST SURGICAL HISTORY OF Heart Cath PAST SURGICAL HISTORY OF Dilation of left ureter PAST SURGICAL HISTORY OF 05/2011 L knee revision PAST SURGICAL HISTORY OF 2014 R THR - [place] PAST SURGICAL HISTORY OF Right 07/2014 total hip replacement ALLERGIES Cymbalta [Duloxetine] MEDICATIONS HYDROcodone-acetaminophen (NORCO) 5-325 mg per tablet Take 1 tablet by mouth every 8 hours as needed for pain. diclofenac (VOLTAREN) 1 % topical gel Apply 2 g to affected area four times daily. acetaminophen (TYLENOL) 500 mg tablet Take 2 tablets by mouth every 8 hours. oxyCODONE IR (ROXICODONE) 5 mg immediate release tablet Take 1 tablet by mouth every 6 hours as needed for pain. pantoprazole DR (PROTONIX) 40 mg tablet Take 1 tablet by mouth once daily. hydrocortisone 2.5 % ointment Apply to affected area on face 2 times daily as needed for 1-2 weeks after PDT oxybutynin ER (DITROPAN XL) 10 mg 24 hr tablet TAKE 1 TABLET BY MOUTH ONCE DAILY AT SUPPER TIME venlafaxine ER (EFFEXOR XR) 150 mg 24 hr capsule Take 150 mg by mouth. albuterol HFA (PROVENTIL HFA, VENTOLIN HFA) 90 mcg/actuation inhaler INHALE 1 PUFF BY MOUTH EVERY 4 HOURS NEEDED AND 15 MINUTES PRIOR TO ACTIVITY ondansetron (ZOFRAN) 4 mg tablet Take 0.5-1 tablets by mouth every 8 hours as needed for Nausea/Vomiting. CALCIUM CITRATE/VITAMIN D3 (CITRACAL + D ORAL) Take by mouth once daily. Ftbgsdv-Elafuvxxyevtf-Uyztdhrz (EXCEDRIN MIGRAINE) 250-250-65 mg per tablet Take 1 tablet by mouth every 6 hours as needed (migraine). predniSONE (DELTASONE) 20 mg tablet Take 20 mg by mouth once daily. (Patient not taking: Reported on 06/16/2022) gabapentin (NEURONTIN) 100 mg capsule Take 2 capsules by mouth every 8 hours for 30 days. Amoxicillin 500 mg tablet Take 6 tablets by mouth 1 hour before dental procedure and 2 tablets by mouth 6 hours after. ascorbic acid, vitamin C, (VITAMIN C) 500 mg tablet Take 1 tablet by mouth twice daily with meals. Cholecalciferol, Vitamin D3, 2,000 unit cap Take 1 capsule by mouth once daily. FAMILY HISTORY Problem Relation Age of Onset Cancer Father Coronary Artery Disease Father Early 70's CABG x5 Coronary Artery Disease Brother aged 52, (more content not included)... [facility] 06-17-2022 Instructions García Alvarez APRN.[facility] - 06/17/2022 12:38 PM EST [facility] PATIENT INFO PHARYNGITIS OVERVIEW A sore throat (pharyngitis) is a common problem, and usually is caused by a viral or bacterial infection. Sore throat usually resolves on its own without complications in adults, although it is important to know when to seek medical attention. Viruses can cause a sore throat and other upper respiratory infections, such as the common cold. Sore throat caused by a virus is not treated with antibiotics, but instead may be treated with rest, pain medication, and other therapies aimed at relieving symptoms. Strep throat is a particular kind of pharyngitis that is caused by a bacterium known as group A streptococcus (GAS). Strep throat is treated with a course of antibiotics. SORE THROAT SYMPTOMS Viral pharyngitis -- Most people with a sore throat have a virus. The most common viruses are those that cause upper respiratory infections, such as the common cold. Symptoms of a viral infection can include: A runny or congested nose Irritation or redness of the eyes Cough, hoarseness, or soreness in the roof of the mouth Some viruses cause a fever and can make you feel quite ill. Strep throat -- Approximately 10 percent of adults with a sore throat have strep throat. Signs and symptoms of strep throat include the following: Pain in the throat Fever (temperature greater than 100.4 F or 38 C) Enlarged lymph glands in the neck White patches of pus on the side or back of the throat No cough, runny nose, or irritation/redness of the eyes Other infections -- Many other less common but more serious infections can cause a sore throat, including mononucleosis (mono), influenza (the flu), N. gonococcus (gonorrhea), human immunodeficiency virus (HIV), and others. When to seek urgent help -- See your doctor or nurse immediately if you have a sore throat along with any of the following: Difficulty breathing Skin rash Drooling because you cannot swallow Swelling of the neck or tongue Stiff neck or difficulty opening the mouth SORE THROAT DIAGNOSIS Most people with a sore throat get better without treatment. There is no specific treatment for a sore throat caused by usual cold viruses. Is it strep or not? -- A combination of symptoms (fever, enlarged glands in the neck, white patches on your tonsils, and no cough) can help in determining if you have strep. If you have two or more symptoms, a rapid test or throat culture may be done. People with fewer than two symptoms usually do not need testing or treatment for strep throat. Rapid test -- The rapid test determines if there are streptococcus bacteria on a throat swab. The test can be done in a clinician's office and the results are available within a few minutes. The test is accurate in most cases, although a small percentage of tests are falsely negative (the bacteria are present but the test is negative). Throat culture -- A throat culture involves swabbing the throat, sending the swab to a laboratory, and waiting 24 to 48 hours for the results. Throat cultures are slightly more accurate than the rapid test. TREATMENT OF SORE THROAT Sore throat treatment -- Antibiotics do not help throat pain caused by a virus and are not recommended. Sore throat caused by viral infections usually lasts four to five days. During this time, treatments to reduce pain may be helpful. Several therapies can help to relieve throat pain. Pain medication -- You can treat your throat pain with a mild pain reliever such as acetaminophen (Tylenol ) or a non-steroidal anti-inflammatory agent such as ibuprofen or naproxen (Motrin or Aleve ). Oral rinses -- Salt-water gargles are an old stand-by for throat pain. It is not clear that salt water works to relieve pain, but it is unlikely to be harmful. Most recipes suggest 1/4 to 1/2 teaspoon of salt per one cup (8 ounces) of warm water. Sprays -- Sprays containing topical anesthetics (eg, benzocaine, phenol) are available to treat sore throat. However, such sprays are no more effective than sucking on hard candy. Lozenges -- A variety of lozenges (cough drops) are available to treat throat pain or relieve dryness. However, it is not clear that lozenges work any better than other forms of hard candy, which are generally less expensive. Other treatments -- Other treatments that may help with throat pain include sipping warm beverages (eg, honey or lemon tea, chicken soup), cold beverages, or eating cold or frozen desserts (eg, ice cream, popsicles). Alternative therapies -- Health food stores, vitamin outlets, and Internet Web sites offer alternative treatments for relief of sore throat pain. We do not recommend these type of treatments due to the risks of contamination with pesticides/herbicides, inaccurate labeling and dosing information, and a lack of studies showing that these treatments are safe and effective. Strep throat -- Although strep throat typically resolves on its own within two to five days, treatment with antibiotics is recommended for adults whose rapid test or throat culture is positive for strep throat. Penicillin, or an antibiotic related to penicillin, is the treatment of choice for strep throat. It is usually given in pill or liquid form two to four times per day for 10 days. A one time injection of penicillin is also available. People who are allergic to penicillin are given an alternate antibiotic. It is important to finish the entire course of treatment to completely eliminate the infection. If symptoms do not begin to improve or worsen by three days of antibiotic treatment, you should see your doctor or nurse again. Return to work/school -- If you have been diagnosed with strep throat, stay home from work or school until you have completed 24 hours of antibiotics. Within 24 hours of beginning antibiotic treatment, you will feel better and will be less contagious [1]. If you have a sore throat (not diagnosed as strep), you may participate in your usual activities as soon as you feel well. SORE THROAT PREVENTION Hand washing is an essential and highly effective way to prevent the spread of infection. Wet your hands with water and plain soap, and rub them together for 15 to 30 seconds. Pay special attention to the fingernails, between the fingers, and the wrists. Rinse your hands thoroughly, and dry them with a clean towel. Alcohol-based hand rubs are a good alternative for disinfecting hands if a sink is not available. Hand rubs should be spread over the entire surface of hands, fingers, and wrists until dry, and may be used several times. These rubs can be used repeatedly without skin irritation or loss of effectiveness. Hand rubs are available as a liquid or wipe in small, portable sizes that are easy to carry in a pocket or handbag. When a sink is available, visibly soiled hands should be washed with soap and water. Wash your hands after coughing, blowing the nose, or sneezing. While it is not always possible to avoid being near a person who is sick, avoiding touching your eyes, nose, or mouth to prevent the spread of infection. In addition, tissues should be used to cover the mouth when sneezing or coughing. These used tissues should be disposed of promptly. Sneezing/coughing into your sleeve (at the inner elbow) is another way to contain sprays of saliva and secretions and will not contaminate your hand documented in this encounter [facility] 06-17-2022 History of Presen t illness Narrative Subjective HPI Nontoxic-appearing female presents urgent care chief complaint sore throat. Duration of symptoms 2 days. Associated symptoms sore throat. States sore throat is worse at night than during the day. Does have some postnasal drip. Denies any OTC medication use. Denies any known sick contacts. Denies any fever body aches chills cough chest pain shortness of breath pleuritic pain hemoptysis nausea vomiting abdominal pain or change in bowel or bladder habits. Past medical history prescription medication use allergies reviewed. .Patient presents with: Sore Throat: Cough, HARVEY x2 days PAST MEDICAL HISTORY Diagnosis Date Abnormal stress test Cardiac cath was negative Age-related osteoporosis without current pathological fracture 10/16/2017 Brachial neuritis or radiculitis NOS 05/13/2010 Bucket handle tear of lateral meniscus(717.41) 12/05/2005 Cervical arthritis Cervical spondylosis without myelopathy 04/13/2007 Cervicalgia 03/22/2007 Chronic obstructive pulmonary disease (HCC) 02/05/2018 Compression fracture of lumbar spine, non-traumatic (HCC) 01/31/2014 Congenital spondylolisthesis 04/13/2007 Depressive disorder, not elsewhere classified Displacement of lumbar intervertebral disc without myelopathy 01/31/2014 Ex-smoker GERD (gastroesophageal reflux disease) Headache 07/17/2012 History of dislocation of hip 07/09/2014 right Lumbago 07/28/2009 Lumbar spinal stenosis Lumbar spondylosis 07/28/2009 Microscopic hematuria 08/20/2010 Muscle weakness (generalized) 09/16/2008 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 ARTHROSCOPY KNEE DIAGNOSTIC W/WO SYNOVIAL BX SPX 06/2010 Arthroscopy, knee COLONOSCOPY 03/10/2022 COLONOSCOPY FLX DX W/COLLJ SPEC WHEN PFRMD Colonoscopy CYSTOURETHROSCOPY Cystoscopy EGD W/O BRSH SPEC VARICIES INJ 03/10/2022 PAST SURGICAL HISTORY OF R THR x 3 PAST SURGICAL HISTORY OF Bilat TKR PAST SURGICAL HISTORY OF L Hip pinning (later removed) PAST SURGICAL HISTORY OF Heart Cath PAST SURGICAL HISTORY OF Dilation of left ureter PAST SURGICAL HISTORY OF 05/2011 L knee revision PAST SURGICAL HISTORY OF 2014 R THR - Brandi PAST SURGICAL HISTORY OF Right 07/2014 total hip replacement ALLERGIES Cymbalta [Duloxetine] MEDICATIONS HYDROcodone-acetaminophen (NORCO) 5-325 mg per tablet Take 1 tablet by mouth every 8 hours as needed for pain. diclofenac (VOLTAREN) 1 % topical gel Apply 2 g to affected area four times daily. acetaminophen (TYLENOL) 500 mg tablet Take 2 tablets by mouth every 8 hours. oxyCODONE IR (ROXICODONE) 5 mg immediate release tablet Take 1 tablet by mouth every 6 hours as needed for pain. pantoprazole DR (PROTONIX) 40 mg tablet Take 1 tablet by mouth once daily. hydrocortisone 2.5 % ointment Apply to affected area on face 2 times daily as needed for 1-2 weeks after PDT oxybutynin ER (DITROPAN XL) 10 mg 24 hr tablet TAKE 1 TABLET BY MOUTH ONCE DAILY AT SUPPER TIME venlafaxine ER (EFFEXOR XR) 150 mg 24 hr capsule Take 150 mg by mouth. albuterol HFA (PROVENTIL HFA, VENTOLIN HFA) 90 mcg/actuation inhaler INHALE 1 PUFF BY MOUTH EVERY 4 HOURS NEEDED AND 15 MINUTES PRIOR TO ACTIVITY ondansetron (ZOFRAN) 4 mg tablet Take 0.5-1 tablets by mouth every 8 hours as needed for Nausea/Vomiting. CALCIUM CITRATE/VITAMIN D3 (CITRACAL + D ORAL) Take by mouth once daily. Rzwvmfq-Vshtkrlqygqhf-Fewwjeye (EXCEDRIN MIGRAINE) 250-250-65 mg per tablet Take 1 tablet by mouth every 6 hours as needed (migraine). predniSONE (DELTASONE) 20 mg tablet Take 20 mg by mouth once daily. (Patient not taking: Reported on 06/16/2022) gabapentin (NEURONTIN) 100 mg capsule Take 2 capsules by mouth every 8 hours for 30 days. Amoxicillin 500 mg tablet Take 6 tablets by mouth 1 hour before dental procedure and 2 tablets by mouth 6 hours after. ascorbic acid, vitamin C, (VITAMIN C) 500 mg tablet Take 1 tablet by mouth twice daily with meals. Cholecalciferol, Vitamin D3, 2,000 unit cap Take 1 capsule by mouth once daily. FAMILY HISTORY Problem Relation Age of Onset Cancer Father Coronary Artery Disease Father Early 70's CABG x5 Coronary Artery Disease Brother aged 52, [place] Diabetes Brother Type II No Family History Other Colon Cancer/Polyps Social History Tobacco Use Smoking status: Former Packs/day: 0.15 Years: 1.00 Pack years: 0.15 Types: Cigarettes Quit date: 06/29/2005 Years since quittin.9 Smokeless tobacco: Never Vaping Use Vaping Use: Never used Substance Use Topics Alcohol use: Yes Alcohol/week: 2.0 - 3.0 standard drinks Types: 2 - 3 Glasses of wine per week Drug use: No BP 122/76 Pulse 71 Temp (!) 35.7 C (96.2 F) Resp 18 Wt 55 kg (121 lb 3.2 oz) SpO2 98% BMI 19.56 kg/m Review of Systems Constitutional: Negative for chills, fever and malaise/fatigue. HENT: Positive for congestion and sore throat. Negative for ear discharge, ear pain and sinus pain. Eyes: Negative for blurred vision, pain, discharge and redness. Respiratory: Negative for cough, hemoptysis, sputum production, shortness of breath, wheezing and stridor. Cardiovascular: Negative for chest pain. Gastrointestinal: Negative for abdominal pain, diarrhea, nausea and vomiting. Musculoskeletal: Negative for myalgias. Skin: Negative for itching and rash. Neurological: Negative for dizziness and headaches. Objective Physical Exam Constitutional: General: She is not in acute distress. Appearance: She is not diaphoretic. HENT: Head: Normocephalic. Jaw: No trismus, tenderness, swelling or pain on movement. Mouth/Throat: Lips: [place]. Mouth: Mucous membranes are moist. Pharynx: Oropharynx is clear. Uvula midline. Posterior oropharyngeal erythema present. No pharyngeal swelling, oropharyngeal exudate or uvula swelling. Eyes: Conjunctiva/sclera: Conjunctivae normal. Pupils: Pupils are equal, round, and reactive to light. Cardiovascular: Rate and Rhythm: Normal rate and regular rhythm. Heart sounds: Normal heart sounds. Pulmonary: Effort: Pulmonary effort is normal. No tachypnea, accessory muscle usage or respiratory distress. Breath sounds: Normal breath sounds. No stridor. No wheezing, rhonchi or rales. Abdominal: General: There is no distension. Palpations: Abdomen is soft. Tenderness: There is no abdominal tenderness. There is no guarding or rebound. Musculoskeletal: Cervical back: Normal range of motion and neck supple. No rigidity or tenderness. Lymphadenopathy: Cervical: No cervical adenopathy. Skin: General: Skin is warm and dry. Neurological: Mental Status: She is alert and oriented to person, place, and time. ASSESSMENT/PLAN: 1. Pharyngitis, unspecified etiology - ICD9: 462, ICD10: J02.9 - STREP A MOLECULAR (POC) Strep test negative. Suspicious of allergy induced or viral pharyngitis. We will treat conservatively at this time. Follow-up with ENT 3 to 5 days symptoms are not improving Patient was educated on supportive therapies. Patient will follow up with primary care provider as needed. Patient was instructed to immediately proceed to emergency room for any new, worsening, or symptoms lasting longer than anticipated. The patient's clinical presentation is otherwise unremarkable at this time. Based on exam and clinical finding, the patient is stable for discharge. Plan of care was discussed with patient. Patient verbalizes understanding and agrees to plan of care. This note was generated using [employer] software. It may contain errors in wording, punctuation, or spelling. García Alvarez APRN.SHANDRA documented in this encounter [facility] 06-16-2022 Note HNO ID: [id number] Author: Sofia Delgado PA-C Service: ? Author Type: Physician Construction Skills Teacher Type: Progress Notes Filed: 06/16/2022 1:20 PM Note Text: Subjective HPI HPI Argenis Ho is a 82 year old female who presents today for CC of urinary frequency and urgency x 3 weeks. Thought initially that it was related to her new pain medication that they placed her on for low back issues. BP 126/78 Pulse 92 Temp 36.3 ?C (97.3 ?F) (Tympanic) Resp 18 Wt 54.8 kg (120 lb 12.8 oz) SpO2 96% BMI 19.50 kg/m? ALLERGIES Allergen Reactions Cymbalta [Duloxetin* Other: See Comments Pt reporting she is not allergic, just a negative side effect. 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 Oab (Overactive Bladder) Trochanteric Bursitis of Left Hip Hip Pain, Acute, Right Primary Hypertension Family History Problem Relation Age of Onset Cancer Father Coronary Artery Disease Father Early 70's CABG x5 Coronary Artery Disease Brother aged 52, [place] Diabetes Brother Type II No Family History Other Colon Cancer/Polyps Social History Tobacco Use Smoking status: Former Packs/day: 0.15 Years: 1.00 Pack years: 0.15 Types: Cigarettes Quit date: 06/29/2005 Years since quittin.9 Smokeless tobacco: Never Vaping Use Vaping Use: Never used Substance Use Topics Alcohol use: Yes Alcohol/week: 2.0 - 3.0 standard drinks Types: 2 - 3 Glasses of wine per week Drug use: No Review of Systems Constitutional: Negative for chills and fever. Gastrointestinal: Negative for abdominal pain, constipation, diarrhea, nausea and vomiting. Genitourinary: Positive for frequency and urgency. Negative for dysuria, flank pain and hematuria. Objective BP 126/78 Pulse 92 Temp 36.3 ?C (97.3 ?F) (Tympanic) Resp 18 Wt 54.8 kg (120 lb 12.8 oz) SpO2 96% BMI 19.50 kg/m? Physical Exam Constitutional: General: She is not in acute distress. Appearance: Normal appearance. She is not ill-appearing. Cardiovascular: Rate and Rhythm: Normal rate and regular rhythm. Heart sounds: S1 normal and S2 normal. No murmur heard. Pulmonary: Effort: Pulmonary effort is normal. Breath sounds: Normal breath sounds. No decreased breath sounds, wheezing, rhonchi or rales. Abdominal: General: Bowel sounds are normal. Palpations: Abdomen is soft. There is no hepatomegaly or splenomegaly. Tenderness: There is no abdominal tenderness. There is no right CVA tenderness, left CVA tenderness, guarding or rebound. Skin: General: Skin is warm and dry. Findings: No rash. Neurological: Mental Status: She is alert and oriented to person, place, and time. Psychiatric: Behavior: Behavior is cooperative. ASSESSMENT/PLAN: 1. Urinary frequency - ICD9: 788.41, ICD10: R35.0 acute Pt unable to provide a sample in office. Will drop off urine to be dipped/ sent out for culture and will adjust treatment accordingly. - UA DIP, URINE (POC) - URINE CULTURE Pt advised to see PCP if symptoms persist or progress. Reviewed red flags with patient and when to seek care sooner. The patient indicates understanding of these issues and agrees with the plan. Sofia Delgado PA-C [facility] 06-16-2022 History of Presen t illness Narrative Subjective HPI HPI Argenis Ho is a 82 year old female who presents today for CC of urinary frequency and urgency x 3 weeks. Thought initially that it was related to her new pain medication that they placed her on for low back issues. BP 126/78 Pulse 92 Temp 36.3 C (97.3 F) (Tympanic) Resp 18 Wt 54.8 kg (120 lb 12.8 oz) SpO2 96% BMI 19.50 kg/m ALLERGIES Allergen Reactions Cymbalta [Duloxetin* Other: See Comments Pt reporting she is not allergic, just a negative side effect. 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 Oab (Overactive Bladder) Trochanteric Bursitis of Left Hip Hip Pain, Acute, Right Primary Hypertension Family History Problem Relation Age of Onset Cancer Father Coronary Artery Disease Father Early 70's CABG x5 Coronary Artery Disease Brother aged 52, [place] Diabetes Brother Type II No Family History Other Colon Cancer/Polyps Social History Tobacco Use Smoking status: Former Packs/day: 0.15 Years: 1.00 Pack years: 0.15 Types: Cigarettes Quit date: 06/29/2005 Years since quittin.9 Smokeless tobacco: Never Vaping Use Vaping Use: Never used Substance Use Topics Alcohol use: Yes Alcohol/week: 2.0 - 3.0 standard drinks Types: 2 - 3 Glasses of wine per week Drug use: No Review of Systems Constitutional: Negative for chills and fever. Gastrointestinal: Negative for abdominal pain, constipation, diarrhea, nausea and vomiting. Genitourinary: Positive for frequency and urgency. Negative for dysuria, flank pain and hematuria. Objective BP 126/78 Pulse 92 Temp 36.3 C (97.3 F) (Tympanic) Resp 18 Wt 54.8 kg (120 lb 12.8 oz) SpO2 96% BMI 19.50 kg/m Physical Exam Constitutional: General: She is not in acute distress. Appearance: Normal appearance. She is not ill-appearing. Cardiovascular: Rate and Rhythm: Normal rate and regular rhythm. Heart sounds: S1 normal and S2 normal. No murmur heard. Pulmonary: Effort: Pulmonary effort is normal. Breath sounds: Normal breath sounds. No decreased breath sounds, wheezing, rhonchi or rales. Abdominal: General: Bowel sounds are normal. Palpations: Abdomen is soft. There is no hepatomegaly or splenomegaly. Tenderness: There is no abdominal tenderness. There is no right CVA tenderness, left CVA tenderness, guarding or rebound. Skin: General: Skin is warm and dry. Findings: No rash. Neurological: Mental Status: She is alert and oriented to person, place, and time. Psychiatric: Behavior: Behavior is cooperative. ASSESSMENT/PLAN: 1. Urinary frequency - ICD9: 788.41, ICD10: R35.0 acute Pt unable to provide a sample in office. Will drop off urine to be dipped/ sent out for culture and will adjust treatment accordingly. - UA DIP, URINE (POC) - URINE CULTURE Pt advised to see PCP if symptoms persist or progress. Reviewed red flags with patient and when to seek care sooner. The patient indicates understanding of these issues and agrees with the plan. Sofia Delgado PA-C documented in this encounter [facility] 05-13-2022 Miscellaneous Notes Left message on AM that HIDA scan was normal. documented in this encounter [facility] 05-12-2022 Note HNO ID: [id number] Author: RT Marleni(R) Service: Nuclear Medicine Author Type: Technologist Type: Progress Notes Filed: 05/12/2022 10:35 AM Note Text: RADIOLOGY SERVICE PROGRESS NOTE SERVICE DATE: 05/12/2022 SERVICE TIME: 08:10 AM PATIENT IDENTITY VERIFICATION COMPLETED USING TWO (2) STANDARD IDENTIFIERS: Name and Date of confirmed by patient verbally FALL SCREENING: Has the patient had 2 falls in the last year or 1 fall with injury or currently using an Ambulatory Assistive Device (Walker, Cane, Wheelchair, Crutches, etc.)? Yes, Patient High Risk for Falls What interventions were put in place to prevent falls during this visit? Instructed Patient to Call for Help if Needed, Offered Assistance with Transfers/Clothing, Instructed Patient to Remain Seated (Not on Exam Table) Until Exam, Increased Observations by Caregivers, and Escorted to/from Restroom PATIENT GENDER DATA: .female : No ALLERGIES: Reviewed and unchanged MEDICATIONS REVIEWED: No PATIENT RELEVANT IMPLANT DATA REVIEWED: Not Applicable CREATININE: Creatinine Date Value Ref Range Status 05/02/2022 1.03 (H) 0.58 - 0.96 mg/dL Final 12/11/2019 0.56 (L) 0.58 - 0.96 mg/dL Final 12/11/2019 0.60 0.58 - 0.96 mg/dL Final Estimated Glomerular Filtration Rate Date Value Ref Range Status 05/02/2022 55 (L) >=60 mL/min/1.73m? Final Comment: Estimated Glomerular Filtration Rate (eGFR) is calculated using the 2020 CKD-EPI creatinine equation. This equation utilizes serum creatinine, sex, and age as parameters. The creatinine assay has traceable calibration to isotope dilution-mass spectrometry. Refer to KDIGO guidelines for clinical interpretation. In patients with unstable renal function, e.g. those with acute kidney injury, the eGFR may not accurately reflect actual GFR. eGFR- Date Value Ref Range Status 12/11/2019 >60 Final P.O.C.T. RESULTS: N/A May 12, [address] PERFORMED: No IV SITE: Ambulatory: A peripheral IV was started in the Right antecubital site with a Angio cath: 24 gauge. POST EXAM PIV STATUS: Discontinued PROCEDURE TYPE: NM INJECT: Hepatobiliary with gallbladder EF. 5.8 mCi Tc99m CHOLETEC. 8 ounces of Ensure Plus given PO at 09:30 for EF. ADMINISTRATION TIME: 08:20 PATIENT DISCHARGED TO: Ambulatory patient, left NM department area. A Diagnostic radioactive procedure has taken place, with no further precautions necessary other than routine body substance precautions. More information regarding radiation safety can be found using this link: [email or web address] SIGNATURE: BRIT Yepez PATIENT NAME: Argenis Ho DATE: May 12, 2022 TIME: 10:33 AM PAGER/CONTACT #: [facility] 05-12-2022 History of Presen t illness Narrative RADIOLOGY SERVICE PROGRESS NOTE SERVICE DATE: 05/12/2022 SERVICE TIME: 08:10 AM PATIENT IDENTITY VERIFICATION COMPLETED USING TWO (2) STANDARD IDENTIFIERS: Name and Date of confirmed by patient verbally FALL SCREENING: Has the patient had 2 falls in the last year or 1 fall with injury or currently using an Ambulatory Assistive Device (Walker, Cane, Wheelchair, Crutches, etc.)? Yes, Patient High Risk for Falls What interventions were put in place to prevent falls during this visit? Instructed Patient to Call for Help if Needed, Offered Assistance with Transfers/Clothing, Instructed Patient to Remain Seated (Not on Exam Table) Until Exam, Increased Observations by Caregivers, and Escorted to/from Restroom PATIENT GENDER DATA: .female : No ALLERGIES: Reviewed and unchanged MEDICATIONS REVIEWED: No PATIENT RELEVANT IMPLANT DATA REVIEWED: Not Applicable CREATININE: Creatinine Date Value Ref Range Status 05/02/2022 1.03 (H) 0.58 - 0.96 mg/dL Final 12/11/2019 0.56 (L) 0.58 - 0.96 mg/dL Final 12/11/2019 0.60 0.58 - 0.96 mg/dL Final Estimated Glomerular Filtration Rate Date Value Ref Range Status 05/02/2022 55 (L) >=60 mL/min/1.73m Final Comment: Estimated Glomerular Filtration Rate (eGFR) is calculated using the 2020 CKD-EPI creatinine equation. This equation utilizes serum creatinine, sex, and age as parameters. The creatinine assay has traceable calibration to isotope dilution-mass spectrometry. Refer to KDIGO guidelines for clinical interpretation. In patients with unstable renal function, e.g. those with acute kidney injury, the eGFR may not accurately reflect actual GFR. eGFR- Date Value Ref Range Status 12/11/2019 >60 Final P.O.C.T. RESULTS: N/A May 12, [address] PERFORMED: No IV SITE: Ambulatory: A peripheral IV was started in the Right antecubital site with a Angio cath: 24 gauge. POST EXAM PIV STATUS: Discontinued PROCEDURE TYPE: NM INJECT: Hepatobiliary with gallbladder EF. 5.8 mCi Tc99m CHOLETEC. 8 ounces of Ensure Plus given PO at 09:30 for EF. ADMINISTRATION TIME: 08:20 PATIENT DISCHARGED TO: Ambulatory patient, left NM department area. A Diagnostic radioactive procedure has taken place, with no further precautions necessary other than routine body substance precautions. More information regarding radiation safety can be found using this link: [email or web address] SIGNATURE: BRIT Yepez PATIENT NAME: Argenis Ho DATE: May 12, 2022 TIME: 10:33 AM PAGER/CONTACT #: documented in this encounter [facility] 05-09-2022 Note HNO ID: [id number] Author: Eladio Austin PA-C Service: ? Author Type: Physician Construction Skills Teacher Type: Progress Notes Filed: 05/12/2022 1:09 PM Note Text: Ortho Hip Follow Up Note Narrative Referring Provider: Alexandria Herrera [address], [address] [facility] [address] PCP: Hilary Bailey MD, MD IMPRESSION/PLAN: Impressions indicate: 81 year old s/p below surgeries. Orthopaedic Surgeries 12/10/2019 (2yr, 4mo) ARTHROPLASTY REPLACE JOINT TOTAL HIP (Left) Moshe Paz MD; Stu (Res) Dylan - Posted 07/09/2014 (7yr) REVISION JOINT TOTAL HIP BOTH COMPONENTS; DEBRIDEMENT BONE W/ EPIDERMIS/DERMIS/ SUBCUTANEOUS TISSUE/ MUSCLE/FASCIA FIRST 20 SQ CM OR LESS (Right; Right) Moshe Paz MD; Robles Bateman; Nilesh Beck; Eladio (Res)(Hist) Nicho - Posted 05/16/2011 (10yr) REVISION JOINT TOTAL KNEE FEMORAL AND ENTIRE TIBIAL COMPONENT (Left) Uche Quiñones I; George Zhao - Posted PAIN EVALUATION 05/09/2022 0803 Pain Level: 7 Pain Location: Hip-Right Description: Throbbing Duration Amount of Time: 3 Duration Units: Weeks Frequency: Continuous Intervention/Comfort measure: Medication IMPRESSION: Chronic Trochanteric Bursitis PLAN: I advised the patient that I would not be giving her an injection today as she has minimal tissue coverage overlying the trochanteric region. I did remind her that I had explained this at her last visit, and that Dr. Paz had the same reservations of getting her injection in the past. I did discuss the importance of her attending physical therapy, safe use of ice, and prescribed diclofenac gel for her. I will see her back in follow-up in 2 months. Patient was appreciative, verbalized understanding and agrees with the plan. Patient Reassurance: Patient reassured and supported. All questions answered. 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 Oab (Overactive Bladder) Trochanteric Bursitis of Left Hip Hip Pain, Acute, Right Primary Hypertension HPI: Argenis Ho presents today for a manager terminal follow-up visit. The patient states she has been in the emergency department 2 times in the past 3 weeks, and admitted for right hip pain. She states that she was prescribed prednisone, which has decreased her pain by about 50%. Patient states that her pain is also located in her low back and radiates to the lateral aspect of her hip. She is followed by pain management, and states that she is scheduled for an injection on the left side next week. Patient states she was told while in the hospital that she would most likely receive an injection to her bursa on the right side in the office today. Patient states that she has not been to physical therapy since early in the spring, is unsure if she took her anti-inflammatories when I had seen her 6 months ago, and has not been using any ice. STATUS POST: BMI: Body mass index is 19.69 kg/m?. Post operative recovery was complicated by uneventful/none. Readmission(s) since surgery (90 days post)? No ED Visits AND Hospitalizations - Last 180 days 05/04/22 Marcella Palmer DO; Hilary Valentine..., [id number] Hip pain ..., ED to Hosp-Admission (Discharged) (ADMIT) 05/02/22 [facility] History of total hip arthroplasty, right ..., ED (DISCHARGE) 03/10/22 Sangeeta Sim MD, LDSUR Abdominal pain, unspecified abdominal location ..., Admission (Discharged) Current Opioids Analgesic Opioid Agonists Start End oxyCODONE IR (ROXICODONE) 5 mg immediate release tabl (more content not included)... [facility] 05-09-2022 History of Presen t illness Narrative Images from the original note were not included. Ortho Hip Follow Up Note Narrative Referring Provider: Alexandria Herrera [address], [address] [facility] [address] PCP: Hilary Bailey MD, MD IMPRESSION/PLAN: Impressions indicate: 81 year old s/p below surgeries. Orthopaedic Surgeries 12/10/2019 (2yr, 4mo) ARTHROPLASTY REPLACE JOINT TOTAL HIP (Left) Moshe Paz MD; Stu (Res) Dylan - Posted 07/09/2014 (7yr) REVISION JOINT TOTAL HIP BOTH COMPONENTS; DEBRIDEMENT BONE W/ EPIDERMIS/DERMIS/ SUBCUTANEOUS TISSUE/ MUSCLE/FASCIA FIRST 20 SQ CM OR LESS (Right; Right) Moshe Paz MD; Robles Bateman; Nilesh Beck; Eladio (Res)(Hist) Nicho - Posted 05/16/2011 (10yr) REVISION JOINT TOTAL KNEE FEMORAL AND ENTIRE TIBIAL COMPONENT (Left) Uche Quiñones I; George Zhao - Posted PAIN EVALUATION 05/09/2022 0803 Pain Level: 7 Pain Location: Hip-Right Description: Throbbing Duration Amount of Time: 3 Duration Units: Weeks Frequency: Continuous Intervention/Comfort measure: Medication IMPRESSION: Chronic Trochanteric Bursitis PLAN: I advised the patient that I would not be giving her an injection today as she has minimal tissue coverage overlying the trochanteric region. I did remind her that I had explained this at her last visit, and that Dr. Paz had the same reservations of getting her injection in the past. I did discuss the importance of her attending physical therapy, safe use of ice, and prescribed diclofenac gel for her. I will see her back in follow-up in 2 months. Patient was appreciative, verbalized understanding and agrees with the plan. Patient Reassurance: Patient reassured and supported. All questions answered. 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 Oab (Overactive Bladder) Trochanteric Bursitis of Left Hip Hip Pain, Acute, Right Primary Hypertension HPI: Argenis Ho presents today for a intermediate follow-up visit. The patient states she has been in the emergency department 2 times in the past 3 weeks, and admitted for right hip pain. She states that she was prescribed prednisone, which has decreased her pain by about 50%. Patient states that her pain is also located in her low back and radiates to the lateral aspect of her hip. She is followed by pain management, and states that she is scheduled for an injection on the left side next week. Patient states she was told while in the hospital that she would most likely receive an injection to her bursa on the right side in the office today. Patient states that she has not been to physical therapy since early in the spring, is unsure if she took her anti-inflammatories when I had seen her 6 months ago, and has not been using any ice. STATUS POST: BMI: Body mass index is 19.69 kg/m . Post operative recovery was complicated by uneventful/none. Readmission(s) since surgery (90 days post)? No ED Visits & Hospitalizations - Last 180 days 05/04/22 Marcella Palmer DO; Hilary Valentine..., [id number] Hip pain ..., ED to Hosp-Admission (Discharged) (ADMIT) 05/02/22 [facility] History of total hip arthroplasty, right ..., ED (DISCHARGE) 03/10/22 Sangeeta Sim MD, LDSUR Abdominal pain, unspecified abdominal location ..., Admission (Discharged) Current Opioids Analgesic Opioid Agonists Start End oxyCODONE IR (ROXICODONE) 5 mg immediate release tablet 05/06/2022 Sig - Route: Take 1 tablet by mouth every 6 hours as needed for pain. - ORAL Earliest Fill Date: 05/06/2022 Analgesic Opioid Hydrocodone Combinations Start End HYDROcodone-acetaminophen (NORCO) 5-325 mg per tablet Sig - Route: Take 1 tablet by mouth every 8 hours as needed for pain. - ORAL Class: Historical Med Analgesic Opioid Hydrocodone and Non-Salicylate Combinations Start End HYDROcodone-acetaminophen (NORCO) 5-325 mg per tablet Sig - Route: Take 1 tablet by mouth every 8 hours as needed for pain. - ORAL Class: Historical Med Physical Therapy Data 08/24/2021 09/24/2021 09/29/2021 Surgical procedure - - - Surgical procedure date - - - AROM L hip flexion - - - AROM L hip abduction - - - PROM R comment - - - PROM L comment - - - Therapist that will oversee plan of care Bridger Spencer Prognosis Fair Fair Fair Prognosis fair clinical presentation;multiple co- morbidities;chronic nature of impairments;advanced age;limited tolerance to activity clinical presentation;multiple co- morbidities;advanced age;chronic nature of impairments;limited compliance with previous therapy;limited support system;limited tolerance to activity clinical presentation;multiple co- morbidities;advanced age;chronic nature of impairments;limited support system;limited tolerance to activity Frequency 2x/week 1x/week 1x/week Duration 8 weeks 4 weeks 4 weeks Total number of visits 12 4 4 Planned treatment interventions Therapeutic exercise (49876);Neuromuscular re-education (27770);Manual therapy (77027);Therapeutic activities (52804);Self-group home management (87389);Patient/Family/Caregiver Education;Body Mechanics Training Therapeutic exercise (07384);Neuromuscular re-education (09765);Manual therapy (09594);Therapeutic activities (91001);Self-group home management (91825);Patient/Family/Caregiver Education;Gait Training (35469);Body Mechanics Training Therapeutic exercise (61276);Neuromuscular re-education (75705);Manual therapy (44650);Therapeutic activities (96649);Self-group home management (82935);Patient/Family/Caregiver Education;Body Mechanics Training Plan for next visit Lumbar exam and core strengthening exercises, continue massage for headaches prn Continue work on neck and headaches as needed, lumbar exercises when pt is ready Continue to assess if treatment needs to be for LBP or neck on the day of session. If LBP core stabilzation and strengthening exercises. Work on balance as well. == EXAM: POST OP HIP == SKIN: Incision well healed. The Pt walks with a mild antalgic gait favoring the right. B/l LE have valgus Alignment The Left hip reveals a no hip flexion contracture, 0-100 degrees of flexion, Internal Rotation to 20 degrees in flexion and external rotation to 45 degrees in flexion. Abduction to 45 degrees and adduction to 20 degrees. There is no pain with palpation over the ischial tuberosity, mild over the greater trochanter. The Right hip reveals a no hip flexion contracture, 0-100 degrees of flexion, Internal Rotation to 20 degrees in flexion and external rotation to 45 degrees in flexion. Abduction to 45 degrees and adduction to 20 degrees. There is no pain with palpation over the ischial tuberosity, positive tenderness over the greater trochanter and along the proximal third of the IT band. Provider: Eladio Austin PA-C Completed by: Eladio Austin PA-C documented in this encounter [facility] 05-05-2022 Note HNO ID: [id number] Author: Marcella Palmer DO Service: Hospital Medicine Author Type: Physician Type: Progress Notes Filed: 05/05/2022 4:03 PM Note Text: DEPARTMENT OF HOSPITAL MEDICINE PROGRESS NOTE SERVICE DATE: 05/05/2022 SERVICE TIME: 1:47 PM Hospital Medicine/Primary Attending: Marcella Palmer, DO NIGHT AND WEEKEND COVERAGE: [facility] COVERAGE: Days: [phone], please page Marcella Palmer for patient issues. Nights: [phone], please page Team GIM 1: G/H 8th floor: [address]; Non 8th floor [address] Subjective INTERVAL HPI: Pain has fairly significant headache, not relieved with oxycodone She was told at [facility] ED to use Ibuprofen and Benadryl which usually works. Does have A/E from Benadryl. Headache is frontal in nature, no visual changes, no numbness/tingling. Blood pressure is better controlled. She also finds Excedrin helps at home but upsets her stomach. Right hip pain is better. Still sore but better with oxycodone and scheduled tylenol. Patient states no prior diagnosis of bursitis nor injection. Current Facility-Administered Medications Medication Dose Route Frequency lidocaine patch - REMOVE OTHER ONCE pantoprazole DR 40 mg tab(s) (PROTONIX) 40 mg ORAL DAILY (6 AM) venlafaxine ER 150 mg cap(s) (EFFEXOR XR) 150 mg ORAL DAILY ascorbic acid (vitamin C) 500 mg tab(s) (VITAMIN C) 500 mg ORAL BID w MEALS cholecalciferol 2,000 Units tab(s) (VITAMIN D3) 2,000 Units ORAL DAILY NaCl 0.9% iv flush bag 20 mL INTRAVENOUS PRN sodium chloride 0.9 % (flush) 3-5 mL (BD POSIFLUSH) 3-5 mL INTRAVENOUS q 12 H oxyCODONE IR 5 mg tab(s) (ROXICODONE) 5 mg ORAL q 3 H PRN bisacodyl 10 mg suppository (DULCOLAX) 10 mg RECTAL DAILY PRN polyethylene glycol 3350 17 g packet (MIRALAX, GLYCOLAX) 17 g ORAL DAILY PRN ondansetron (PF) 4 mg injection (ZOFRAN) 4 mg INTRAVENOUS q 6 H PRN morphine 2 mg injection 2 mg INTRAVENOUS q 2 H PRN acetaminophen 1,000 mg tab(s) (TYLENOL) 1,000 mg ORAL q 8 H gabapentin 200 mg cap(s) (NEURONTIN) 200 mg ORAL q 8 H trospium 20 mg tab(s) (SANCTURA) 20 mg ORAL BID AC acetaminophen 325 mg-caffeine 40 mg-butalbital 50 mg 1 tablet (FIORICET) 1 tablet ORAL q 6 H PRN keTORolac 15 mg injection (TORADOL) 15 mg INTRAVENOUS q 6 H PRN Objective PHYSICAL EXAM: BP 153/78 Pulse 71 Temp (Src) 97.7 (Oral) Resp 12 SpO2 96% O2 Therapy: Room Air Physical Exam Performed GENERAL: Alert, no distress, cooperative SKIN: No rash/discoloration over hip site ABDOMEN: Abdomen soft, non-tender, BS normal, No masses or organomegaly EXTREMITIES: No ulcers, Prior incision site clean, no erythema, slightly tender to palpation. Lines, Drains, and Airways Line Duration Peripheral 05/04/222229 Right Antecubital 20 Gauge <1 day DATA: Diagnostic tests reviewed for today's visit: Most recent labs Assessment/Plan Problem List Hip pain, acute, right POA: Yes Severe episode of recurrent major depressive disorder (HCC) POA: Yes GERD (gastroesophageal reflux disease) POA: Yes Headache, unspecified headache type POA: Yes Primary hypertension POA: Yes HOSPITAL COURSE: Argenis Ho is a 81 year old female presented with past medical history of prior right total hip arthroplasty and complex revision. T The patient has been seen in the ED 3 times over the past 2 weeks due to this same pain, including today (04/21/22 - [place], 05/02/22 - and today). She presented on 05/04 to [facility] Emergency Department with continued pain of right hip despite outpatient treatment. Principal Problem: Hip pain, acute, right Pain is better today Prior imaging including Xray and CT of the right hip with acute processes Seen by Orthopedics in ED and low concern for postoperative complication of prosthetic joint infection ESR and CRP - negative, very low suspicion to PJI RTC Tylenol, PRN Oxycodone for moderate and Morphine for severe pain - seems to be helping Add gabapentin to regimen Lidocaine patch Physical therapy evaluation for mobility assessment of need for acute rehab. If no relief in next 24 hours, can consider consultation with pain management Active Problems: Severe episode of recurrent major depressive disorder (HCC) Assessment AND Plan: Continue Effexor therapy GERD (gastroesophageal reflux disease) Assessment AND Plan: Pantoprazole daily Headache, unspecified headache type Assessment AND Plan: Fioricet PRN Toradol intravenous PRN Primary hypertension Assessment AND Plan: Patient noted to be hypertensive in ED Normally not on any medications and systolic blood pressure remains in 140s per history Given hydralazine in ED with limited effect Etiologies could be pain, anxiety or also effects of steroids Stable now at 150s Medication and Non-Pharmacologic VTE Prophylaxis/Anticoagulants 05/04/22 2200 activity - mobilize patient (fl,oh) VTE Prophylaxis: VTE prophylaxis appropriate Disposition: Home Plan of care dis (more content not included)... [facility] 05-04-2022 Note HNO ID: [id number] Author: RT Andria(R) Service: Radiology Author Type: Technologist Type: Progress Notes Filed: 05/04/2022 2:50 PM Note Text: Radiology Service Progress Note PATIENT NAME: Argenis Ho DATE OF SERVICE: May 04, 2022 TIME: 2:50 PM PATIENT IDENTITY VERIFICATION COMPLETED USING TWO (2) IDENTIFIERS: Name and Date of confirmed by patient verbally and Name and Date of confirmed by identification band. FALL SCREENING: Has the patient had 2 falls in the last year or 1 fall with injury or currently using an Ambulatory Assistive Device (Walker, Cane, Wheelchair, Crutches, etc.)? No PATIENT GENDER DATA: Female. status: : No status: N/A PATIENT RELEVANT IMPLANT DATA REVIEWED: Not Applicable RADIOLOGY DEPARTMENT: General X-ray: Exam(s) Completed: Spine X-Ray(s): Lumbar AP / LAT / L5-S1 PERIPHERAL IV DATA: Not applicable SIGNED BY: RT Andria(R) May 04, 2022 2:50 PM [facility] 05-02-2022 Note HNO ID: [id number] Author: RT Tamir(R) Service: ? Author Type: Email Campaign Manager Type: Progress Notes Filed: 05/02/2022 6:10 PM Note Text: Radiology Service Progress Note PATIENT NAME: Argenis Ho DATE OF SERVICE: May 02, 2022 TIME: 6:10 PM PATIENT IDENTITY VERIFICATION COMPLETED USING TWO (2) IDENTIFIERS: Name and Date of confirmed by patient verbally and Name and Date of confirmed by identification band. FALL SCREENING: Has the patient had 2 falls in the last year or 1 fall with injury or currently using an Ambulatory Assistive Device (Walker, Cane, Wheelchair, Crutches, etc.)? Emergency Room Patient: Screened in ED PATIENT GENDER DATA: Female. status: : No status: NO. PATIENT RELEVANT IMPLANT DATA REVIEWED: Yes RADIOLOGY DEPARTMENT: CT; Exam(s) Completed: Lower extremity PERIPHERAL IV DATA: Not applicable SIGNED BY: RT Tamir(R) May 02, 2022 6:10 PM [facility] 05-02-2022 Note HNO ID: [id number] Author: RT Ino(R) Service: ? Author Type: Technologist Type: Progress Notes Filed: 05/02/2022 1:12 PM Note Text: Radiology Service Progress Note PATIENT NAME: Argenis Ho DATE OF SERVICE: May 02, 2022 TIME: 1:11 PM PATIENT IDENTITY VERIFICATION COMPLETED USING TWO (2) IDENTIFIERS: Name and Date of confirmed by patient verbally. FALL SCREENING: Has the patient had 2 falls in the last year or 1 fall with injury or currently using an Ambulatory Assistive Device (Walker, Cane, Wheelchair, Crutches, etc.)? Emergency Room Patient: Screened in ED PATIENT GENDER DATA: Female. status: : No status: NO. PATIENT RELEVANT IMPLANT DATA REVIEWED: Not Applicable RADIOLOGY DEPARTMENT: General X-ray: Exam(s) Completed: Pelvis X-Ray: Pelvis with Hip Right PERIPHERAL IV DATA: Not applicable SIGNED BY: RT Ino(R) May 02, 2022 1:11 PM [facility] 04-20-2022 Miscellaneous Notes Pt called in about setting up Hida scan. Please call and help Pt. documented in this encounter [facility] 04-13-2022 Miscellaneous Notes Told patient results of US RUQ - normal gallbladder. Patient states that she has done some research and feels that her symptoms are attributed to gallbladder disease. I have recommended that the patient obtain a HIDA scan and then I will call her with the results. She agrees to proceed. documented in this encounter [facility] 04-11-2022 History of Presen t illness Narrative Radiology Service Progress Note PATIENT NAME: Argenis Ho DATE OF SERVICE: April 11, 2022 TIME: 2:17 PM PATIENT IDENTITY VERIFICATION COMPLETED USING TWO (2) IDENTIFIERS: Name and Date of confirmed by patient verbally. FALL SCREENING: Has the patient had 2 falls in the last year or 1 fall with injury or currently using an Ambulatory Assistive Device (Walker, Cane, Wheelchair, Crutches, etc.)? No PATIENT GENDER DATA: Female. status: : No status: NO. PATIENT RELEVANT IMPLANT DATA REVIEWED: Not Applicable RADIOLOGY DEPARTMENT: Ultrasound PERIPHERAL IV DATA: Not applicable SIGNED BY: Jocy Barry RDMS RVT April 11, 2022 2:17 PM documented in this encounter [facility] 03-18-2022 Miscellaneous Notes Attempted to contact patient with results of upper and lower endoscopy. Voicemail identified my number only, therefore did not leave message due to HIPAA. documented in this encounter [facility] 02-21-2022 Miscellaneous Notes Order did not drop in depot. Entered as optime Addended by: HAKEEM STEELE on: 02/21/2022 11:02 AM Modules accepted: Orders 03/10 colon/egd lodi documented in this encounter [facility] 02-21-2022 Nurse Note REVIEW OF SYSTEMS: General: The patient notes fatigue, denies weight loss, denies weight gain, denies feeling hot, and denies feelings of cold. Eyes: The patient denies glaucoma, denies eye injury/surgery, does not wear glasses or contacts. Ear/Nose/Throat: The patient denies allergies, denies hayfever, denies ear infections, and denies bloody noses. Cardiovascular: The patient denies chest pain, denies heart disease, notes high blood pressure,denies cardiac stent, denies prior heart attack, denies irregular heart beat, denies high cholesterol, denies poor circulation, denies heart failure, other cardiac issues, denies claudication, denies cold feet, denies peripheral arterial stent. Respiratory: The patient denies tuberculosis, denies pneumonia, denies frequent cough, denies pulmonary embolism, notes shortness of breath, and denies coughing up blood. Gastrointestinal: The patient notes difficulty swallowing, denies acid reflux, denies ulcers, denies vomiting, denies jaundice/hepatitis, denies gallbladder problems, denies black or tarry stools, denies hemorrhoids, denies bleeding from rectum, denies diverticulitis, notes constipation, denies diarrhea, denies loss of stool control, and denies hernias. Kidney/Bladder: The patient denies kidney stones, denies urine infections, and denies bloody urine. Skin: The patient notes a history of skin cancer, denies bleeding/changing moles, and denies a history of skin rash. Neurologic: The patient denies a history of epilepsy/convulsions, notes headaches, denies head/spinal injuries, and denies stroke/TIA. Psychiatric: The patient denies psychiatric medications, notes depression, and denies voices, denies substance abuse. Endocrine: The patient denies thyroid disorders, denies diabetes, and denies hormonal problems. Hematologic: The patient denies a history of bruising, denies bleeding, and denies anemia, denies blood clots. Infections: The patient denies a history of measles and mumps, denies rheumatic fever, and denies sexually transmitted diseases. Musculoskeletal: The patient notes back pain/injury, denies back problems, denies sciatica, denies knee/foot trouble, denies arthritis, or denies gout. When was patient's last Mammogram screening? 2015 Last Colonoscopy: 2016 Mecca Gomez LPN documented in this encounter [facility] 02-21-2022 History of Presen t illness Narrative HISTORY AND PHYSICAL Argenis Ho 1940 REFERRING PHYSICIAN: MD Gamaliel CHIEF COMPLAINT: Consult and Abdominal Pain HPI: The patient is a 81 year old female self-referred for endoscopy. Argenis notes a 1-year history of abdominal pain. She states she has noted bilateral pain under the ribcage, and associated symptoms of trouble evacuating stools. States pepto-bismol gives some symptom relief. Patient states she has seen her PCP and had labwork which she reports was unremarkable, records not currently available for review. Patient denies any blood in stools or black tarry stools. Denies family history of colon issues. Argenis has undergone prior endoscopy. PAST MEDICAL HISTORY Diagnosis Date Abnormal stress test Cardiac cath was negative Age-related osteoporosis without current pathological fracture 10/16/2017 Brachial neuritis or radiculitis NOS 05/13/2010 Bucket handle tear of lateral meniscus(717.41) 12/05/2005 Cervical arthritis Cervical spondylosis without myelopathy 04/13/2007 Cervicalgia 03/22/2007 Chronic obstructive pulmonary disease (HCC) 02/05/2018 Compression fracture of lumbar spine, non-traumatic (HCC) 01/31/2014 Congenital spondylolisthesis 04/13/2007 Depressive disorder, not elsewhere classified Displacement of lumbar intervertebral disc without myelopathy 01/31/2014 Ex-smoker GERD (gastroesophageal reflux disease) Headache 07/17/2012 History of dislocation of hip 07/09/2014 right Lumbago 07/28/2009 Lumbar spinal stenosis Lumbar spondylosis 07/28/2009 Microscopic hematuria 08/20/2010 Muscle weakness (generalized) 09/16/2008 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 ARTHROSCOPY KNEE DIAGNOSTIC W/WO SYNOVIAL BX SPX 06/2010 Arthroscopy, knee COLONOSCOPY FLX DX W/COLLJ SPEC WHEN PFRMD Colonoscopy CYSTOURETHROSCOPY Cystoscopy PAST SURGICAL HISTORY OF R THR x 3 PAST SURGICAL HISTORY OF Bilat TKR PAST SURGICAL HISTORY OF L Hip pinning (later removed) PAST SURGICAL HISTORY OF Heart Cath PAST SURGICAL HISTORY OF Dilation of left ureter PAST SURGICAL HISTORY OF 05/13 L knee revision PAST SURGICAL HISTORY OF 2014 R THR - [place] PAST SURGICAL HISTORY OF Right 07/2014 total hip replacement Current Outpatient Medications Medication Sig oxybutynin ER (DITROPAN XL) 10 mg 24 hr tablet TAKE 1 TABLET BY MOUTH ONCE DAILY AT SUPPER TIME venlafaxine ER (EFFEXOR XR) 150 mg 24 hr capsule Take [address] (PROTONIX) 40 mg tablet Take 40 mg by mouth. Amoxicillin 500 mg tablet Take 6 tablets by mouth 1 hour before dental procedure and 2 tablets by mouth 6 hours after. albuterol HFA (PROVENTIL HFA, VENTOLIN HFA) 90 mcg/actuation inhaler INHALE 1 PUFF BY MOUTH EVERY 4 HOURS NEEDED AND 15 MINUTES PRIOR TO ACTIVITY ondansetron (ZOFRAN) 4 mg tablet Take 0.5-1 tablets by mouth every 8 hours as needed for Nausea/Vomiting. Jltfkqq-Bcwvnvfqdpxnp-Wjggokio (EXCEDRIN MIGRAINE) 250-250-65 mg per tablet Take 1 tablet by mouth every 6 hours as needed (migraine). hydrocortisone 2.5 % ointment Apply to affected area on face 2 times daily as needed for 1-2 weeks after PDT (Patient not taking: Reported on 02/21/2022) L-Methylfolate 15 mg tab Take 1 tablet by mouth once daily. (Patient not taking: Reported on 02/21/2022) ascorbic acid, vitamin C, (VITAMIN C) 500 mg tablet Take 1 tablet by mouth twice daily with meals. pantoprazole DR (PROTONIX) 40 mg tablet Take 1 tablet by mouth daily before dinner. (Patient not taking: Reported on 02/21/2022) Cholecalciferol, Vitamin D3, 2,000 unit cap Take 1 capsule by mouth once daily. (Patient not taking: Reported on 02/21/2022) CALCIUM CITRATE/VITAMIN D3 (CITRACAL + D ORAL) Take by mouth once daily. (Patient not taking: Reported on 02/21/2022) No current facility-administered medications for this visit. ALLERGIES: Cymbalta [Duloxetine] PERSONAL HISTORY: Social History Tobacco Use Smoking status: Former Packs/day: 0.15 Years: 1.00 Pack years: 0.15 Types: Cigarettes Quit date: 06/29/2005 Years since quittin.6 Smokeless tobacco: Never Vaping Use Vaping Use: Never used Substance Use Topics Alcohol use: Yes Alcohol/week: 2.0 - 3.0 standard drinks Types: 2 - 3 Glasses of wine per week Drug use: No FAMILY HISTORY: FAMILY HISTORY Problem Relation Age of Onset Cancer Father Coronary Artery Disease Father Early 70's CABG x5 Coronary Artery Disease Brother aged 52, [place] Diabetes Brother Type II No Family History Other Colon Cancer/Polyps REVIEW OF SYMPTOMS: The review of systems data was entered by the nurse and reviewed by ut Nursing Notes: Mecca GomezTRACY 02/21/2022 10:41 AM Signed REVIEW OF SYSTEMS: General: The patient notes fatigue, denies weight loss, denies weight gain, denies feeling hot, and denies feelings of cold. Eyes: The patient denies glaucoma, denies eye injury/surgery, does not wear glasses or contacts. Ear/Nose/Throat: The patient denies allergies, denies hayfever, denies ear infections, and denies bloody noses. Cardiovascular: The patient denies chest pain, denies heart disease, notes high blood pressure,denies cardiac stent, denies prior heart attack, denies irregular heart beat, denies high cholesterol, denies poor circulation, denies heart failure, other cardiac issues, denies claudication, denies cold feet, denies peripheral arterial stent. Respiratory: The patient denies tuberculosis, denies pneumonia, denies frequent cough, denies pulmonary embolism, notes shortness of breath, and denies coughing up blood. Gastrointestinal: The patient notes difficulty swallowing, denies acid reflux, denies ulcers, denies vomiting, denies jaundice/hepatitis, denies gallbladder problems, denies black or tarry stools, denies hemorrhoids, denies bleeding from rectum, denies diverticulitis, notes constipation, denies diarrhea, denies loss of stool control, and denies hernias. Kidney/Bladder: The patient denies kidney stones, denies urine infections, and denies bloody urine. Skin: The patient notes a history of skin cancer, denies bleeding/changing moles, and denies a history of skin rash. Neurologic: The patient denies a history of epilepsy/convulsions, notes headaches, denies head/spinal injuries, and denies stroke/TIA. Psychiatric: The patient denies psychiatric medications, notes depression, and denies voices, denies substance abuse. Endocrine: The patient denies thyroid disorders, denies diabetes, and denies hormonal problems. Hematologic: The patient denies a history of bruising, denies bleeding, and denies anemia, denies blood clots. Infections: The patient denies a history of measles and mumps, denies rheumatic fever, and denies sexually transmitted diseases. Musculoskeletal: The patient notes back pain/injury, denies back problems, denies sciatica, denies knee/foot trouble, denies arthritis, or denies gout. When was patient's last Mammogram screening? 2015 Last Colonoscopy: 2016 Mecca Gomez LPN I have confirmed and edited as necessary, the PFSH and ROS obtained by others. Ольга Beltran PA-C PHYSICAL EXAMINATION: General: The patient is 81 year old female, well nourished, well hydrated in no acute distress. The patient is oriented to time, place, and person. VITALS: Blood pressure 120/84, pulse 96, temperature 36.3 C (97.3 F), temperature source Temporal, resp. rate 14, height 167.6 cm (5' 6 ), weight 56.2 kg (124 lb), SpO2 95 %. Body mass index is 20.01 kg/m . HEENT: Normal cephalic, ataumatic, pupils are equally round, sclera are anicteric, mucous membranes are moist, oropharynx is clear. Neck has no masses, asymmetry or lymphadenopathy. Respiratory: Clear to auscultation and percussion. Normal respiratory excursion and pattern. Cardiac: Examination is regular rate and rhythm. Normal S1/S2 Abdominal exam: Soft, nontender, with no palpable masses. No hepatosplenomegaly. No palpable hernias. Extremities: no clubbing, cyanosis or edema. No adenopathy. LABORATORY VALUES: As Noted RADIOLOGIC STUDIES: As Noted Assessment IMPRESSION: abdominal pain, change in bowel habits PLAN: I have reviewed my findings with the surgeon. Will plan for upper and lower endoscopy. We discussed the risks and benefits of the planned endoscopy. I have informed the patient that complications can occur including failure to complete the endoscopy and perforation. The patient had the opportunity to ask questions concerning the planned endoscopy. My staff has also explained the procedure to the patient in understandable terms and has given the patient printed material concerning the procedure. The patient freely consents to surgery. The patient was offered a surgery/procedure at a [facility] facility. I have counseled the patient regarding the risk of exposure to and/or potential harm posed by the COVID-19 virus with having a surgery/procedure at this time versus the risk of delaying the surgery/procedure. It is not possible to know either the risk of delaying the surgery or procedure or chance of getting an infection with perfect accuracy, but a joint decision was made between the patient and myself to proceed at this time with endoscopy. I plan to use Golytely bowel preparation We will plan for Monitored Anesthetic Care. Diagnoses: (R10.84) Generalized abdominal pain (primary encounter diagnosis) (R19.4) Change in bowel habits I spent a total of 24 minutes on the date of the service which included preparing to see the patient, [id number] patient care, completing clinical documentation, obtaining and/or reviewing separately obtained history, performing a medically appropriate examination, counseling and educating the patient/family/caregiver, and ordering medications, tests, or procedures. Ольга Beltran PA-C Patient checked in and was in lab waiting room. Called for her twice in that area but did not respond. Called and went to voicemail. Did respond when called for third time. Sydney Klein LPN documented in this encounter [facility] 11-17-2021 History of Presen t illness Narrative SELF Ms. Ho is a 81 year old female that presents today complaining of hip problems bilaterally for the past several months. Patient is status post left total hip arthroplasty December 09/2020, and revision total hip arthroplasty July 09/2015, both performed by Dr. Anny Paz. Patient denies any recent injury or trauma. Denies radiation numbness or tingling. The pain is about a 3 or 4 at rest, and does get up to about an 8 with ambulation. Patient states that her is very active, and she would like to get better so that she could keep up with him. ALLERGIES: Cymbalta [Duloxetine] MEDICATIONS: Current Outpatient Medications Medication Sig acetaminophen 300 mg-caffeine 40 mg-butalbital 50 mg (FIORICET) per capsule Take by mouth. hydrocortisone 2.5 % ointment Apply to affected area on face 2 times daily as needed for 1-2 weeks after PDT oxybutynin ER (DITROPAN XL) 10 mg 24 hr tablet TAKE 1 TABLET BY MOUTH ONCE DAILY AT SUPPER TIME venlafaxine ER (EFFEXOR XR) 150 mg 24 hr capsule Take 150 mg by mouth. Amoxicillin 500 mg tablet Take 6 tablets by mouth 1 hour before dental procedure and 2 tablets by mouth 6 hours after. ascorbic acid, vitamin C, (VITAMIN C) 500 mg tablet Take 1 tablet by mouth twice daily with meals. budesonide-formoterol (SYMBICORT) 160-4.5 mcg/actuation inhaler Inhale 2 Puffs as instructed twice daily. albuterol HFA (PROVENTIL HFA, VENTOLIN HFA) 90 mcg/actuation inhaler INHALE 1 PUFF BY MOUTH EVERY 4 HOURS NEEDED AND 15 MINUTES PRIOR TO ACTIVITY pantoprazole DR (PROTONIX) 40 mg tablet Take 1 tablet by mouth daily before dinner. (Patient taking differently: Take 40 mg by mouth daily before dinner. Pt taking 20mg ) ondansetron (ZOFRAN) 4 mg tablet Take 0.5-1 tablets by mouth every 8 hours as needed for Nausea/Vomiting. Cholecalciferol, Vitamin D3, 2,000 unit cap Take 1 capsule by mouth once daily. CALCIUM CITRATE/VITAMIN D3 (CITRACAL + D ORAL) Take by mouth once daily. Lpwxpba-Kvcottyldudnu-Qmaltyeq (EXCEDRIN MIGRAINE) 250-250-65 mg per tablet Take 1 tablet by mouth every 6 hours as needed (migraine). meloxicam (MOBIC) 7.5 mg tablet Take 1 tablet by mouth once daily. With Food L-Methylfolate 15 mg tab Take 1 tablet by mouth once daily. baclofen (LIORESAL) 10 mg tablet TAKE 1 TABLET BY MOUTH AT BEDTIME TO HELP MUSCLES RELAX (Patient not taking: Reported on 11/17/2021) pantoprazole DR (PROTONIX) 40 mg tablet Take 40 mg by mouth. tiZANidine (ZANAFLEX) 4 mg tablet Take 1 tab when needed for headaches , up to one daily (Patient not taking: Reported on 11/17/2021 ) No current facility-administered medications for this visit. MEDICAL HISTORY: PAST MEDICAL HISTORY Diagnosis Date Abnormal stress test Cardiac cath was negative Age-related osteoporosis without current pathological fracture 10/16/2017 Brachial neuritis or radiculitis NOS 05/13/2010 Bucket handle tear of lateral meniscus(717.41) 12/05/2005 Cervical arthritis Cervical spondylosis without myelopathy 04/13/2007 Cervicalgia 03/22/2007 Chronic obstructive pulmonary disease (HCC) 02/05/2018 Compression fracture of lumbar spine, non-traumatic (HCC) 01/31/2014 Congenital spondylolisthesis 04/13/2007 Depressive disorder, not elsewhere classified Displacement of lumbar intervertebral disc without myelopathy 01/31/2014 Ex-smoker GERD (gastroesophageal reflux disease) Headache 07/17/2012 History of dislocation of hip 07/09/2014 right Lumbago 07/28/2009 Lumbar spinal stenosis Lumbar spondylosis 07/28/2009 Microscopic hematuria 08/20/2010 Muscle weakness (generalized) 09/16/2008 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 COLONOSCOP W/ OR W/O [facility] SPEC Colonoscopy CYSTO.PANENDO Cystoscopy KNEE SCOPE,DIAGNOSTIC 06/2010 Arthroscopy, knee PAST SURGICAL HISTORY OF R THR x 3 PAST SURGICAL HISTORY OF Bilat TKR PAST SURGICAL HISTORY OF L Hip pinning (later removed) PAST SURGICAL HISTORY OF Heart Cath PAST SURGICAL HISTORY OF Dilation of left ureter PAST SURGICAL HISTORY OF 05/13 L knee revision PAST SURGICAL HISTORY OF 2014 R THR - [place] PAST SURGICAL HISTORY OF Right 07/2014 total hip replacement ORTHOPEDIC SPECIFIC PROBLEMS: As above FAMILY HISTORY: FAMILY HISTORY Problem Relation Age of Onset Cancer Father Coronary Artery Disease Father Early 70's CABG x5 Coronary Artery Disease Brother aged 52, [place] Diabetes Brother Type II No Family History Other Colon Cancer/Polyps SOCIAL HISTORY: Social History Tobacco Use Smoking status: Former Smoker Packs/day: 0.15 Years: 1.00 Pack years: 0.15 Types: Cigarettes Quit date: 06/29/2005 Years since quittin.3 Smokeless tobacco: Never Used Substance Use Topics Alcohol use: Yes Drug use: No PHYSICAL ASSESSMENT: The Pt walks with a mild antalgic gait favoring the right. B/l LE have valgus Alignment The Left hip reveals a no hip flexion contracture, 0-100 degrees of flexion, Internal Rotation to 20 degrees in flexion and external rotation to 45 degrees in flexion. Abduction to 45 degrees and adduction to 20 degrees. There is no pain with palpation over the ischial tuberosity, mild over the greater trochanter. The Right hip reveals a no hip flexion contracture, 0-100 degrees of flexion, Internal Rotation to 20 degrees in flexion and external rotation to 45 degrees in flexion. Abduction to 45 degrees and adduction to 20 degrees. There is no pain with palpation over the ischial tuberosity, positive tenderness over the greater trochanter and along the proximal third of the IT band. EHL 5/5 DF 5/5 PF 5/5 DP Pulses 2/2 PT Pulses 2/2 RADIOGRAPH:.Postsurgical change of bilateral total hip arthroplasties with satisfactory alignment. No acute fracture or evidence of hardware failure. Remote healed fracture deformities left superior and inferior pubic rami appear unchanged. Mild sacroiliac joint degenerative change. There is degenerative change of the lower lumbar spine. PLAN: I discussed the importance of and safe use of NSAIDs and ice. We did discuss physical therapy, however the patient would like to hold off on that at this time, and try and just do some stretching on her own. She states that they will be going to the wellness center, and I did ask her to speak with the trainers there and let them know that she has had hip replacements and has trochanteric bursitis. I will see the patient back in a few months, and she knows how to contact the office prior to that time should she have any questions. I would be hesitant to inject cortisone in the area, as Dr. Paz was at his last visit as well due to minimal tissue coverage. The patient and her both verbalized understanding and agree with the plan. documented in this encounter [facility] 11-17-2021 History of Presen t illness Narrative Radiology Service Progress Note PATIENT NAME: Argenis Ho DATE OF SERVICE: November 17, 2021 TIME: 10:30 AM PATIENT IDENTITY VERIFICATION COMPLETED USING TWO (2) IDENTIFIERS: Name and Date of confirmed by patient verbally. FALL SCREENING: Has the patient had 2 falls in the last year or 1 fall with injury or currently using an Ambulatory Assistive Device (Walker, Cane, Wheelchair, Crutches, etc.)? No PATIENT GENDER DATA: Female. status: : No status: NO. PATIENT RELEVANT IMPLANT DATA REVIEWED: Not Applicable RADIOLOGY DEPARTMENT: General X-ray: Exam(s) Completed: Pelvis X-Ray: Pelvis with Hip Bilateral PERIPHERAL IV DATA: Not applicable SIGNED BY: RT Christiano(R) November 17, 2021 10:30 AM documented in this encounter [facility] 10-06-2021 History of Presen t illness Narrative Episode Visit Count: 5 Therapist That Will Oversee The Plan Of Care: Bridger Spencer Start of Care Date: 09/29/21 Onset Date: 09/29/17 (4-5 Years Ago, gradual worsening) Plan of Care Certification Date: 08/24/21 Next Certification Due Date: 10/22/21 REHABILITATION AND SPORTS THERAPY PHYSICAL THERAPY TREATMENT NOTE ASSESSMENT: Argenis Ho tolerated the session with fatigue, expected muscle soreness and no issues. She demonstrated difficulty with trunk musculature fatigue during TA bracing and describes difficulty with not knowing if she is doing the exercise right. Patient feels it is a sensation issue. The patient will continue to benefit from ongoing skilled physical therapy to progress toward set goals. PLAN FOR NEXT VISIT: May progress hip strengthening SUBJECTIVE: Patient Reason for Visit: Pt. neck continues to feel good. Wakes up with a headache and has one throughout the day, but describes it as tolerable. Pt. wishes to treat the back today. 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 States she forgot to do her HEP since last session. Pain: Pain Pain Level: 7 Pain Location: Low Back/Lumbar Spine - Left Description: Sharp Frequency: Continuous;With movement Pain Level 2: 1 Pain Location 2: Head - Left;Head - Right Post Treatment Pain Post Treatment Pain Level: 6 Post Treatment Symptoms: Fatigued OBJECTIVE MEASURES WITH LEVEL OF FUNCTION: Demonstrated moderate (Rt. Leg) & significant (Lt. Leg) dynamic knee valgus during forward step ups. Significant Q-Angle observed. TREATMENT: Therapeutic Exercise: 1: TA Bracin sec hold. 2x10 2: TA BKFO: 2x10 ea. leg 3: TA Brace: w/ arms overhead: 2x10. 4: SLR: 2x10 w/ ea. leg. 5: Clamshells: 1x10 Rt. side up, 1x8 Lt. side up. 6: Forward Step Ups: Green Box, 1x12 ea. leg Skilled Intervention: Patient was educated in proper exercise technique and purpose for exercises. Skilled judgment was provided in selection of appropriate interventions. Correct performance of therapeutic exercises was facilitated with verbal, visual and tactile cuing. Significant rest periods allowed between sets and exercises due to fatigue Billing Therapeutic Exercise Treatment Minutes: 38 Total Treatment Time Minutes (timed and untimed codes) : 38 SHREYAS Perez Supervising therapist was present and guided the care of the patient for the entire session on this date. All documentation was reviewed and agreed upon. Bridger Spencer PT documented in this encounter [facility] 09-29-2021 History of Presen t illness Narrative Episode Visit Count: 4 Therapist That Will Oversee The Plan Of Care: Bridger Spencer Onset Date: 08/24/18 Plan of Care Certification Date: 08/24/21 Next Certification Due Date: 10/22/21 Patient Identified by Name and Date of : Yes REHABILITATION AND SPORTS THERAPY PHYSICAL THERAPY TREATMENT NOTE ASSESSMENT: Argenis Ho stated her neck was feeling good today with no current headache. She wished for her LBP to be evaluated and treated today. A lower back evaluation was completed during today's treatment. The patient presents with a chief complaint of Lt. Sided low back pain around L3-L4 level mid-paraspinals with no radicular and/or referring symptoms. Her Lt. Low back pain interferes with bending;walking in the community;physical & recreational activites;sleeping. She presents with impairments in ADL's, gait, joint mobility, overall function, strength and tissue tenderness. New goals for the low back were added to the patients POC following the evaluation to reflect for the goals for the LBP. The patient will continue to benefit from ongoing skilled physical therapy to progress toward set goals. Classification Low Back Pain Subgroup Classification: Core stabilization subgroup: recommended visits 10. Core Stabilization Subgroup Classification based on: segmental hinging;aberrant movements;history of locking/catching;pain with transitional movements Current Frequency: 1x/week Duration: 4 weeks Total Number of Visits Planned: 4 Planned Treatment Interventions: Therapeutic exercise (02563);Neuromuscular re-education (13750);Manual therapy (57919);Therapeutic activities (06924);Self-group home management (73707);Patient/Family/Caregiver Education;Body Mechanics Training PLAN FOR NEXT VISIT: Continue to assess if treatment needs to be for LBP or neck on the day of session. If LBP core stabilzation and strengthening exercises. Work on balance as well. SUBJECTIVE: Patient Reason for Visit: Pt. neck is feeling good today, wanted to complete her back evaluation. Pt. states great history with Lt. low back pain. States said previosly he believes it is a muscular instability causing the pain. Pt. states returning from bending is the hardest thing for her and prolonged standing and walking >10 minutes is very difficult. Things that provide relief are sitting, lying down and resting. The pain awakes her at night. Pain: Pain Pain Level: 6 (Typically an 8) Pain Location: Low Back/Lumbar Spine - Left Description: Sharp Frequency: Continuous;With movement Pain Level 2: 1 Pain Location 2: Head - Left;Head - Right Description 2: Aching Frequency 2: Intermittent Post Treatment Pain Post Treatment Pain Level: 6 Post Treatment Symptoms: Sore from activity during session OBJECTIVE MEASURES WITH LEVEL OF FUNCTION: Lumbar Spine AROM Lumbar Flexion: Minimal limitation;End range pain (More pain coming up from flexion.) Lumbar Extension: Moderate limitation;Increased pain;Pain during movement Lumbar R Side-Bend: Minimal limitation Lumbar L Side-Bend: Minimal limitation;Increased pain Lumbar R Rotation: Minimal limitation Lumbar L Rotation: Minimal limitation;Increased pain LE Strength Trunk Strength: 3/5 R Hip Flexion (L2): 4-/5 R Hip ABduction: 4-/5 R Hip ADduction: 4/5 R Hip Internal Rotation: 4/5 R Hip External Rotation: 4/5 R Knee Extension (L3): 4/5 R Knee Flexion: 4/5 R Ankle Dorsiflexion (L4): 4+/5 R Ankle Plantar Flexion: 4+/5 R Ankle Inversion: 4+/5 R Ankle Eversion: 4+/5 R Great Toes Extension (L5, S1): 5/5 L Hip Flexion (L2): 3+/5 L Hip ABduction: 3+/5 L Hip ADduction: 4/5 L Hip Internal Rotation: 4/5 L Hip External Rotation: 4/5 L Knee Extension (L3): 4/5 L Knee Flexion: 4/5 L Ankle Dorsiflexion (L4): 4+/5 L Ankle Plantar Flexion: 4+/5 L Ankle Inversion: 4+/5 L Ankle Eversion: 4+/5 L Great Toes Extension (L5, S1): 5/5 Functional Strength Functional Strength: Lt. SLR strength < Rt. SLR strength Special Tests - Hip and Spine Hip and Spine Special Tests: SLR Test;Slump Test SLR Test: Right Negative;Left Negative Slump Test: Right Negative;Left Negative Gait Gait: Modified Independent Gait Device: Cane TREATMENT: Therapeutic Exercise: 1: * TA Bracin sec hold. 1x10 2: * TA BKFO: 1x10 ea. leg 3: * TA Brace: w/ arms overhead: 1x10. 4: * SLR: 2x10 w/ ea. leg. Skilled Intervention: Patient was educated in proper exercise technique and purpose for exercises. Reviewed & educated patient on additions for home exercise program as above (*). Skilled judgment was provided in selection of appropriate interventions. Provided written instruction for home exercise program to facilitate proper performance and compliance. Correct performance of therapeutic exercises was facilitated with verbal, visual and tactile cuing. Billing Therapeutic Exercise Treatment Minutes: 35 Total Treatment Time Minutes (timed and untimed codes) : 35 SHREYAS Perez Supervising therapist was present and guided the care of the patient for the entire session on this date. All documentation was reviewed and agreed upon. Bridger Spencer PT documented in this encounter [facility] 09-24-2021 History of Presen t illness Narrative Episode Visit Count: 3 Therapist That Will Oversee The Plan Of Care: Bridger Spencer Start of Care Date: 08/24/21 Onset Date: 08/24/18 Plan of Care Certification Date: 08/24/21 Next Certification Due Date: 10/22/21 [facility] PHYSICAL THERAPY PROGRESS REPORT PLAN OF CARE UPDATE: Assessment: Argenis Ho demonstrates no improvement in functional tasks due to lack of appointment compliance to this point from various medical complications. She has not met her goals, but goals are unchanging at this point. Patient continues to present with impairments in ADL's, gait, independence in exercise, overall function and strength that interfere with standing;walking;bending;heavy exertion;lifting;physical activities;recreational activities . Current prognosis is Fair due to: clinical presentation;multiple co- morbidities;advanced age;chronic nature of impairments;limited compliance with previous therapy;limited support system;limited tolerance to activity . She will benefit from continued skilled therapy services to meet the updated goals for this plan of care as noted below. Goals updated on 09/22/2021. Goals for Episode of Care: created on 08/24/21 through 10/22/21 Independent in home exercises. Not met Patient will decrease pain rating by 2 points to meet minimal clinical important difference for numeric pain rating scale. Not met Restore pain-free lumbar ROM to WNL to allow for improved functional Mobility. Not met Stand / Walk as needed for ADLs and IADLs without pain/symptoms. Not met Patient will increase strength of trunk/core to 4+/5 to allow for improve ability to complete ADLs. Not met Restore pain free cervical ROM to WNL to allow for decreased headaches. Not met Maintain proper sitting posture throughout the session to allow for decreased pain and improved activity tolerance. Not met Planned Interventions, Frequency, and Duration: 1x/week, 4 weeks Total Number of Visits Planned: 4 Patient to be seen for Therapeutic exercise (99018);Neuromuscular re-education (78803);Manual therapy (59602);Therapeutic activities (52019);Self-group home management (27807);Patient/Family/Caregiver Education;Gait Training (37095);Body Mechanics Training PLAN FOR NEXT VISIT: Continue work on neck and headaches as needed, lumbar exercises when pt is ready SUBJECTIVE: Patient Reason for Visit: Pt doing better today. She finally has the BP issues and stomach issues under control. Her nausea was from constipation and BP meds regulated now. headaches remain, and since we havent evaled LBP this us unchanged. Functional Limitations: standing;walking;bending;heavy exertion;lifting;physical activities;recreational activities Pain: Pain Pain Level: 6 Pain Location: Low Back/Lumbar Spine - Left Description: Aching;Sore Frequency: Intermittent Additional Pain Information : Location 2 Pain Level 2: 8 Pain Location 2: Head - Left;Head - Right Description 2: Aching Frequency 2: Intermittent Post Treatment Pain Post Treatment Pain Score 2: 0/10 Post Treatment Pain Location 2: Head - Left;Head - Right PROMIS Scales Higher is Better 05/08/2020 06/10/2020 09/01/2020 Phys Func - Score - 27 (severe dysfunction) 32 (moderate dysfunction) Phys Func - Percentile - 1 % 4 % Social Roles - Score - 25 (severe dysfunction) - Social Role - Percentile - 1 % - GH Physical - Score 32.4 - 37.4 GH Physical - Percentile 4 % - 10 % GH Mental - Score 41.1 - 43.5 GH Mental - Percentile 19 % - 26 % T-scores: mean of general population = 50. 5 points is clinically meaningfully difference Percentiles provide an indication of how the patient's score ranks in relation to the general population. Higher percentile rankings indicate better function/quality of life. 50th percentile is the average of the general population and indicates half of respondents had a worse score. Lower is Better 05/07/2020 06/10/2020 09/01/2020 Fatigue - Score 75 (severe) 74 (severe) 66 (moderate) Fatigue - Percentile 1 % 1 % 5 % T-scores: mean of general population = 50. 5 points is clinically meaningfully difference Percentiles provide an indication of how the patient's score ranks in relation to the general population. Higher percentile rankings indicate better function/quality of life. 50th percentile is the average of the general population and indicates half of respondents had a worse score. OBJECTIVE MEASURES WITH LEVEL OF FUNCTION: Lumbar Spine AROM Lumbar Flexion: Minimal limitation Lumbar Extension: Moderate limitation Lumbar R Side-Bend: Minimal limitation Lumbar L Side-Bend: Minimal limitation Cervical Spine ROM Cervical Flexion AROM: Normal Cervical Extension AROM: Minimal limitation Cervical Side-Bend Right AROM: Minimal limitation Cervical Side-Bend Left AROM: Minimal limitation Cervical Rotation Right AROM: Minimal limitation Cervical Rotation Left AROM: Minimal limitation LE Strength Trunk Strength: 3/5 R LE Strength: 3+ to 4/5 grossly L LE Strength: 3+ to 4/5 grossly TREATMENT: Manual Therapy: 1: STM to B suboccipitals and paraspinals with push to tolerance 2: B upper trap stripping 3: Manual cervical traction x 5 min Skilled Intervention: Manual skills to improve joint mobility, ROM, and decrease pain. Utilized anatomy knowledge of the therapist, and assessment of patient's response to intervention. Billing Manual TherapyTreatment Minutes: 39 Total Treatment Time Minutes (timed and untimed codes) : 39 Bridger Spencer PT documented in this encounter [facility] 01-21-2021 History of Presen t illness Narrative Radiology Service Progress Note PATIENT NAME: Argenis Ho DATE OF SERVICE: January 21, 2021 TIME: 11:36 AM PATIENT IDENTITY VERIFICATION COMPLETED USING TWO (2) IDENTIFIERS: Name and Date of confirmed by patient verbally. FALL SCREENING: Has the patient had 2 falls in the last year or 1 fall with injury or currently using an Ambulatory Assistive Device (Walker, Cane, Wheelchair, Crutches, etc.)? No PATIENT GENDER DATA: Female. status: : No status: NO. PATIENT RELEVANT IMPLANT DATA REVIEWED: Not Applicable RADIOLOGY DEPARTMENT: General X-ray: Exam(s) Completed: Pelvis X-Ray: Pelvis with Hip Bilateral PERIPHERAL IV DATA: Not applicable SIGNED BY: Kiarra Jerez RT(R) January 21, 2021 11:36 AM documented in this encounter [facility] Diagnosis Cervical spondylosis without myelopathy- Primary Spinal stenosis of lumbar region, unspecified whether neurogenic claudication present Lumbar spondylosis Lumbosacral spondylosis without myelopathy [facility]* Diagnosis Pain- Primary Generalized pain [facility]* Diagnosis Trochanteric bursitis of both hips- Primary Enthesopathy of hip region History of total hip arthroplasty, 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 [facility]* Diagnosis Pain Generalized pain [facility]* Diagnosis Abdominal pain, unspecified abdominal location- Primary Change in bowel habits Other symptoms involving digestive system documented in this encounter [facility] note* Diagnosis Generalized abdominal pain- Primary Abdominal pain, generalized Change in bowel habits Other symptoms involving digestive system Abdominal pain, unspecified abdominal location Change in bowel habits Other symptoms involving digestive system documented in this encounter [facility] note* Diagnosis RUQ abdominal pain Abdominal pain, right upper quadrant [facility]* Diagnosis RUQ abdominal pain- Primary Abdominal pain, right upper quadrant [facility]* Diagnosis Trochanteric bursitis of right hip- Primary Enthesopathy of hip region 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 [facility]* Diagnosis Urinary frequency- Primary documented in this encounter [facility] note* Diagnosis Pharyngitis, unspecified etiology- Primary [facility]* Diagnosis Continuous severe abdominal pain- Primary Abdominal pain, unspecified site Ischemic colitis (HCC) Unspecified vascular insufficiency of intestine [facility]* Diagnosis RUQ abdominal pain Abdominal pain, right upper quadrant [facility] Diagnosis Pain Generalized pain Status post total replacement of both hips documented in this encounter [facility] for referral (narrative)* Diagnostic Procedure Only (Routine) - Authorized Specialty Diagnoses / Procedures Referred By Contac t Referred To Contact XR IMAGING Diagnoses Pain Procedures XR HIP BILATERAL 5V PEL/AP/LAT EACH HIP RADEX HIPS BILATERAL WITH PELVIS MINIMUM 5 VIEWS Eladio Austin PA-C [address] [place] [address] Xr Imaging Referral ID Status Reason Start Date Expiration Date Visits Requested Visits Authorized [id number] Authorized Auto-Generat ed Referral 11/10/2021 12/10/2022 1 1 [facility] for referral (narrative)* Diagnostic Procedure Only (Routine) - Closed Specialty Diagnoses / Procedures Referred By Contac t Referred To Contact XR IMAGING Diagnoses Pain Procedures XR HIP BILATERAL 5V PEL/AP/LAT EACH HIP RADEX HIPS BILATERAL WITH PELVIS MINIMUM 5 VIEWS Eladio Austin PA-C [address] [place] [address] Xr Imaging Referral ID Status Reason Start Date Expiration Date V isits Requested Visits Authorized [id number] Closed Auto-Generate d Referral 11/10/2021 12/10/2022 1 1 [facility] for referral (narrative)* Outpatient Procedure (Routine) - Pending Review Specialty Diagnoses / Procedures Referred By Contac t Referred To Contact [facility] Diagnoses Abdominal pain, unspecified abdominal location Change in bowel habits Procedures COLONOSCOPY SCREENING COLONOSCOPY SCREENING COLONOSCOPY SCREENING COLONOSCOPY FLX DX W/COLLJ SPEC WHEN PFRMD Ольга Beltran PA-C [address] [place] [address] [facility] [address] [place] [address] Referral ID Status Reason Start Date Expiration Date Visits Requested Visits Authorized [id number] Pending Review Auto-Generat ed Referral 02/21/2022 02/21/2023 1 1 * Outpatient Procedure (Routine) - Pending Review Specialty Diagnoses / Procedures Referred By Contac t Referred To Contact [facility] Diagnoses Abdominal pain, unspecified abdominal location Change in bowel habits Procedures EGD DIAGNOSTIC EGD DIAGNOSTIC EGD DIAGNOSTIC ESOPHAGOGASTRODUODENOSC OPY TRANSORAL DIAGNOSTIC Ольга Beltran PA-C [address] [place] [address] [facility] [address] [place] [address] Referral ID Status Reason Start Date Expiration Date Visits Requested Visits Authorized [id number] Pending Review Auto-Generat ed Referral 02/21/2022 02/21/2023 1 1 [facility] for referral (narrative)* Diagnostic Procedure Only (Routine) - Closed Specialty Diagnoses / Procedures Referred By Contac t Referred To Contact US IMAGING Diagnoses RUQ abdominal pain Procedures US ABD RT UPPER QUADRANT US ABDOMINAL REAL TIME W/IMAGE LIMITED Sangeeta Sim MD [address] [place] [address] Us Imaging Referral ID Status Reason Start Date Expiration Date V isits Requested Visits Authorized [id number] Closed Auto-Generate d Referral 03/25/2022 04/24/2023 1 1 [facility] for referral (narrative)* Diagnostic Procedure Only (Routine) - Pending Review Specialty Diagnoses / Procedures Referred By Contac t Referred To Contact [facility] FUNCTIONAL IM[facility] Diagnoses RUQ abdominal pain Procedures NM HEPATOBILIARY W EF AND/OR RX HEPATOBIL SYST IMAG INC GB W/PHARMA INTERVENJ Sangeeta Sim MD [address] [place] [address] [facility] [address] [id number] Referral ID Status Reason Start Date Expiration Date Visits Requested Visits Authorized [id number] Pending Review Auto-Generat ed Referral 05/13/2023 1 1 [facility] Diagnostic Procedure Only (Routine) - Closed Specialty Diagnoses / Procedures Referred By Contac t Referred To Contact [facility] Diagnoses RUQ abdominal pain Procedures NM HEPATOBILIARY W EF AND/OR RX HEPATOBIL SYST IMAG INC GB W/PHARMA INTERVENJ Sangeeta Sim MD [address] [place] [address] [facility] [address] [place] [address] Referral ID Status Reason Start Date Expiration Date V isits Requested Visits Authorized [id number] Closed Auto-Generate d Referral 04/13/2022 05/13/2023 1 1 [facility] Summary Purpose Family History No Family History Records FoundNo Family History Records FoundNo Family History Records FoundNo Family History Records FoundNo Family History Records FoundNo Family History Records FoundNo Family History Records Found Advance Directives No Advanced Directives Records FoundDocuments on File Type Date Recorded Patient Incinerator Operator Expl anation Advance Directive(s) 01/20/2017 3:49 PM Latest Code Status on File Code Status Date Activated Date Inactivated Comments Full Code 12/14/2019 12:47 PM 08/25/2020 11:07 AM Documents on File Type Date Recorded Patient Incinerator Operator Expl anation Advance Directive(s) 12/22/2020 7:16 AM Advance Directive(s) 12/15/2020 1:00 PM Advance Directive(s) 12/04/2020 3:02 PM Advance Directive(s) 10/29/2020 10:39 AM Advance Directive(s) 09/21/2020 12:47 PM Advance Directive(s) 08/25/2020 11:06 AM Advance Directive(s) 11/20/2019 12:19 PM Advance Directive(s) 04/12/2018 4:39 PM Advance Directive(s) 11/30/2017 1:57 PM Advance Directive(s) 01/20/2017 3:45 PM Advance Directive(s) 01/20/2017 3:49 PM Advance Directive(s) 05/27/2016 6:08 AM Advance Directive(s) 01/20/2016 3:30 PM Latest Code Status on File Code Status Date Activated Date Inactivated Comments Full Code 12/14/2019 12:47 PM 08/25/2020 11:07 AM Documents on File Type Date Recorded Patient Incinerator Operator Expl anation Advance Directive(s) 12/22/2020 7:16 AM Advance Directive(s) 12/15/2020 1:00 PM Advance Directive(s) 12/04/2020 3:02 PM Advance Directive(s) 10/29/2020 10:39 AM Advance Directive(s) 09/21/2020 12:47 PM Advance Directive(s) 08/25/2020 11:06 AM Advance Directive(s) 11/20/2019 12:19 PM Advance Directive(s) 04/12/2018 4:39 PM Advance Directive(s) 11/30/2017 1:57 PM Advance Directive(s) 01/20/2017 3:45 PM Advance Directive(s) 01/20/2017 3:49 PM Advance Directive(s) 05/27/2016 6:08 AM Advance Directive(s) 01/20/2016 3:30 PM Documents on File Type Date Recorded Patient Incinerator Operator Expl anation Advance Directive(s) 01/20/2017 3:49 PM Documents on File Type Date Recorded Patient Incinerator Operator Expl anation Advance Directive(s) 05/04/2022 2:06 PM Latest Code Status on File Code Status Date Activated Date Inactivated Comments Full Code 05/04/2022 5:35 PM 05/06/2022 8:28 PM Full Code Order Discussed With: Patient Full Code 12/14/2019 12:47 PM 08/25/2020 11:07 AM Documents on File Type Date Recorded Patient Incinerator Operator Expl anation Advance Directive(s) 05/04/2022 2:06 PM Latest Code Status on File Code Status Date Activated Date Inactivated Comments Full Code 05/04/2022 5:35 PM 05/06/2022 8:28 PM Full Code 12/14/2019 12:47 PM 08/25/2020 11:07 AM Latest Code Status on File Code Status Date Activated Date Inactivated Comments Full Code 05/04/2022 5:35 PM 05/06/2022 8:28 PM Question Answer Comments Full Code Order Discussed With: Patient Code Status History Code Status Date Activated Date Inactivated Comments Full Code 12/14/2019 12:47 PM 08/25/2020 11:07 AM Latest Code Status on File Code Status Date Activated Date Inactivated Comments Full Code 05/04/2022 5:35 PM 05/06/2022 8:28 PM Question Answer Comments Full Code Order Discussed With: Patient Code Status History Code Status Date Activated Date Inactivated Comments Full Code 12/14/2019 12:47 PM 08/25/2020 11:07 AM Reason for Referral Specialty Diagnoses / Procedures Referred By Contac t Referred To Contact [facility] Diagnoses Trochanteric bursitis of right hip Procedures CONSULT TO PHYSICAL THERAPY PHYSICAL THERAPY EVALUATION HIGH COMPLEX 45 MINS Eladio Austin PA-C [address] [id number] [facility] [id number] [place] [address] Referral ID Status Reason Start Date Expiration Date V isits Requested Visits Authorized [id number] Closed Auto-Generate d Referral 05/13/2022 05/13/2022 1 1 Health Concerns Infection Onset Date Last Indicated Resolved Time COVID-19 Rule-Out 05/04/2022 05/04/2022 05/04/2022 10:55 PM EDT Additional Source Comments INFORMATION SOURCE (unrecogn ized section and content) DATE CREATED AUTHOR AUTHOR'S ORGANIZ ATION 06/04/2020 [facility] DATE CREATED AUTHOR AUTHOR'S ORGANIZ ATION 12/22/2020 [facility] DATE CREATED AUTHOR AUTHOR'S ORGANIZ ATION 04/16/2023 [facility] DATE CREATED AUTHOR AUTHOR'S ORGANIZ ATION 04/26/2023 [facility] DATE CREATED AUTHOR AUTHOR'S ORGANIZ ATION 06/20/2023 [facility] DATE CREATED AUTHOR AUTHOR'S ORGANIZ ATION 06/22/2023 [facility] Source Comments (unrecognize d section and content) In the event this informatio n is protected by the Federal Confidentiality of Alcohol and Drug Abuse Patient Records regulations: The Federal rules restrict any use of the information to criminally investigate or prosecute any alcohol or drug abuse patient.[facility] the event this information is protected by the Federal Confidentiality of Alcohol and Drug Abuse Patient Records regulations: The Federal rules restrict any use of the information to criminally investigate or prosecute any alcohol or drug abuse patient.[facility] the event this information is protected by the Federal Confidentiality of Alcohol and Drug Abuse Patient Records regulations: The Federal rules restrict any use of the information to criminally investigate or prosecute any alcohol or drug abuse patient.[facility] the event this information is protected by the Federal Confidentiality of Alcohol and Drug Abuse Patient Records regulations: The Federal rules restrict any use of the information to criminally investigate or prosecute any alcohol or drug abuse patient.[facility] the event this information is protected by the Federal Confidentiality of Alcohol and Drug Abuse Patient Records regulations: The Federal rules restrict any use of the information to criminally investigate or prosecute any alcohol or drug abuse patient.[facility] the event this information is protected by the Federal Confidentiality of Alcohol and Drug Abuse Patient Records regulations: The Federal rules restrict any use of the information to criminally investigate or prosecute any alcohol or drug abuse patient.[facility] the event this information is protected by the Federal Confidentiality of Alcohol and Drug Abuse Patient Records regulations: The Federal rules restrict any use of the information to criminally investigate or prosecute any alcohol or drug abuse patient.[facility] the event this information is protected by the Federal Confidentiality of Alcohol and Drug Abuse Patient Records regulations: The Federal rules restrict any use of the information to criminally investigate or prosecute any alcohol or drug abuse patient.[facility] the event this information is protected by the Federal Confidentiality of Alcohol and Drug Abuse Patient Records regulations: The Federal rules restrict any use of the information to criminally investigate or prosecute any alcohol or drug abuse patient.[facility] the event this information is protected by the Federal Confidentiality of Alcohol and Drug Abuse Patient Records regulations: The Federal rules restrict any use of the information to criminally investigate or prosecute any alcohol or drug abuse patient.[facility] System[facility] the event this information is protected by the Federal Confidentiality of Alcohol and Drug Abuse Patient Records regulations: The Federal rules restrict any use of the information to criminally investigate or prosecute any alcohol or drug abuse patient.[facility] System[facility] the event this information is protected by the Federal Confidentiality of Alcohol and Drug Abuse Patient Records regulations: The Federal rules restrict any use of the information to criminally investigate or prosecute any alcohol or drug abuse patient.[facility] the event this information is protected by the Federal Confidentiality of Alcohol and Drug Abuse Patient Records regulations: The Federal rules restrict any use of the information to criminally investigate or prosecute any alcohol or drug abuse patient.[facility] SystemIn the event this information is protected by the Federal Confidentiality of Alcohol and Drug Abuse Patient Records regulations: The Federal rules restrict any use of the information to criminally investigate or prosecute any alcohol or drug abuse patient.[facility] SystemIn the event this information is protected by the Federal Confidentiality of Alcohol and Drug Abuse Patient Records regulations: The Federal rules restrict any use of the information to criminally investigate or prosecute any alcohol or drug abuse patient.[facility] SystemIn the event this information is protected by the Federal Confidentiality of Alcohol and Drug Abuse Patient Records regulations: The Federal rules restrict any use of the information to criminally investigate or prosecute any alcohol or drug abuse patient.[facility] SystemIn the event this information is protected by the Federal Confidentiality of Alcohol and Drug Abuse Patient Records regulations: The Federal rules restrict any use of the information to criminally investigate or prosecute any alcohol or drug abuse patient.[facility] SystemIn the event this information is protected by the Federal Confidentiality of Alcohol and Drug Abuse Patient Records regulations: The Federal rules restrict any use of the information to criminally investigate or prosecute any alcohol or drug abuse patient.[facility] SystemIn the event this information is protected by the Federal Confidentiality of Alcohol and Drug Abuse Patient Records regulations: The Federal rules restrict any use of the information to criminally investigate or prosecute any alcohol or drug abuse patient.[facility] SystemIn the event this information is protected by the Federal Confidentiality of Alcohol and Drug Abuse Patient Records regulations: The Federal rules restrict any use of the information to criminally investigate or prosecute any alcohol or drug abuse patient.[facility] SystemIn the event this information is protected by the Federal Confidentiality of Alcohol and Drug Abuse Patient Records regulations: The Federal rules restrict any use of the information to criminally investigate or prosecute any alcohol or drug abuse patient.[facility] SystemIn the event this information is protected by the Federal Confidentiality of Alcohol and Drug Abuse Patient Records regulations: The Federal rules restrict any use of the information to criminally investigate or prosecute any alcohol or drug abuse patient.[facility] SystemIn the event this information is protected by the Federal Confidentiality of Alcohol and Drug Abuse Patient Records regulations: The Federal rules restrict any use of the information to criminally investigate or prosecute any alcohol or drug abuse patient.[facility] SystemIn the event this information is protected by the Federal Confidentiality of Alcohol and Drug Abuse Patient Records regulations: The Federal rules restrict any use of the information to criminally investigate or prosecute any alcohol or drug abuse patient.[facility] Reason for Visit (unrecogniz ed section and content) Specialty Diagnoses / Procedures Referred By Contac t Referred To Contact Physical Therapy / PHYSICAL THERAPY Diagnoses 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)also patient has an order for L hip pain M25.552 Procedures NEW RS PT SPINE Gregg [address] [place] [address] Bridger Spencer, ARLYN [address] [place] [address] Referral ID Status Reason Start Date Expiration Date V isits Requested Visits Authorized [id number] Authorized 07/03/2021 07/02/2022 20 20 Reason Comments PT Progress Note Reason Comments New Reason Comments Radio Gen A21 Specialty Diagnoses / Procedures Referred By Contac t Referred To Contact XR IMAGING Diagnoses Pain Procedures XR HIP BILATERAL 5V PEL/AP/LAT EACH HIP RADEX HIPS BILATERAL WITH PELVIS MINIMUM 5 VIEWS Eladio Austin PA-C [address] [place] [address] Xr Imaging Referral ID Status Reason Start Date Expiration Date V isits Requested Visits Authorized [id number] Closed Auto-Generate d Referral 11/10/2021 12/10/2022 1 1 Reason Comments 03/10 colon/egd lodi Reason Comments Consult Abdominal Pain Reason Comments Results Reason Comments Radiology US Specialty Diagnoses / Procedures Referred By Contac t Referred To Contact US IMAGING Diagnoses RUQ abdominal pain Procedures US ABD RT UPPER QUADRANT US ABDOMINAL REAL TIME W/IMAGE LIMITED Sangeeta Sim MD [address] [place] [address] Us Imaging Referral ID Status Reason Start Date Expiration Date V isits Requested Visits Authorized [id number] Closed Auto-Generate d Referral 03/25/2022 04/24/2023 1 1 Reason Comments Results Reason Comments New Pain Reason Comments Follow Up Phone Call Post discharge phon e call attempt made. No answer Reason Comments Urinary Problem Pt reported urinary frequency x3 wks. Reason Comments Sore Throat Cough, HARVEY x2 days Reason Comments Appointment Reason Comments Patient Update Reason Comments Follow Up Gyant interaction - F/U - attempt made. No answer. Reason Comments Follow Up Phone Call All Clear. Reason Comments Consult Ischemic Colitis Reason Comments Radiology NM Specialty Diagnoses / Procedures Referred By Contac t Referred To Contact MOLECULAR & FUNCTIONAL IMAGING Diagnoses RUQ abdominal pain Procedures NM HEPATOBILIARY W EF AND/OR RX HEPATOBIL SYST IMAG INC GB W/PHARMA INTERVENJ Sangeeta Sim MD [address] [place] [address] Molecular & Functional Imaging [address] [place] [address] Referral ID Status Reason Start Date Expiration Date V isits Requested Visits Authorized [id number] Closed Auto-Generate d Referral 04/13/2022 05/13/2023 1 1 Reason Comments Radio Gen RMP Care Teams (unrecognized sec tion and content) Circuit [employer] Drafter Relationship Specialty Start Date End Date Hilary Bailey MD [address] [place] [address] PCP - General Family Practice 05/08/20 Moshe Paz MD [address] [place] [address] Home Care Physician Orthopedics 12/11/19 Moshe Paz MD [address] [place] [address] Referring Orthopedics 12/11/19 Rico Kelly, PT [address] [place] [address] [employer] Post Acute Care 12/13/19 Circuit Board Drafter Relationship Specialty Start Date End Date Hilary Bailey MD [address] [place], [place] [address] PCP - General Family Practice 05/08/20 Moshe Paz MD [address] [place] [address] Home Care Physician Orthopedics 12/11/19 Moshe Paz MD [address] [place] [address] Referring Orthopedics 12/11/19 Rico Kelly, PT [address] [place] [address] [employer] Post Acute Care 12/13/19 Circuit Board Drafter Relationship Specialty Start Date End Date Hilary Bailey MD [address] [place] [address] PCP - General Family Practice 05/08/20 Moshe Paz MD [address] [place] [address] Home Care Physician Orthopedics 12/11/19 Moshe Paz MD [address] [place] [address] Referring Orthopedics 12/11/19 Rico Kelly, PT [address] [place] [address] [employer] Post Acute Care 12/13/19 Circuit Board Drafter Relationship Specialty Start Date End Date Hilary Bailey MD [address] [place] [address] PCP - General Family Practice 05/08/20 Moshe Paz MD [address] [place] [address] Home Care Physician Orthopedics 12/11/19 Moshe Paz MD [address] [place] [address] Referring Orthopedics 12/11/19 Rico Kelly, PT [address] [place] [address] [employer] Post Acute Care 12/13/19 Circuit Board Drafter Relationship Specialty Start Date End Date Hilary Bailey MD [address] [place], [place] [id number] PCP - General Family Practice 05/08/20 Moshe Paz MD [address] [place] [address] Home Care Physician Orthopedics 12/11/19 Moshe Paz MD [address] [place] [address] Referring Orthopedics 12/11/19 Rico Kelly, PT [address] [place] [address] [employer] Post Acute Care 12/13/19 Circuit Board Drafter Relationship Specialty Start Date End Date Hilary Bailey MD [address] [facility] [place] [place] [address] PCP - General Family Practice 05/08/20 Moshe Paz MD [address] [place] [address] Home Care Physician Orthopedics 12/11/19 Moshe Paz MD [address] [place] [address] Referring Orthopedics 12/11/19 Rico Kelly, PT [address] [place] [address] [employer] Post Acute Care 12/13/19 Circuit Board Drafter Relationship Specialty Start Date End Date Hilary Bailey MD [address] [place], [place] [address] PCP - General Family Practice 05/08/20 Moshe Paz MD [address] [place] [address] Home Care Provider Orthopedics 12/11/19 Moshe Paz MD [address] [place] [address] Referring Orthopedics 12/11/19 Rico Kelly, PT [address] [place] [address] [employer] Post Acute Care 12/13/19 Circuit Board Drafter Relationship Specialty Start Date End Date Hilary Bailey MD [address] [place] [address] PCP - General Family Medicine 05/08/20 Moshe Paz MD [address] [place] [address] Home Care Provider Orthopedics 12/11/19 Moshe Paz MD [address] [place] [address] Referring Orthopedics 12/11/19 Rico Kelly, PT [address] [place] [address] [employer] Post Acute Care 12/13/19 Circuit Board Drafter Relationship Specialty Start Date End Date Hilary Bailey MD [address] [place], [place] [address] PCP - General Family Medicine 05/08/20 Moshe Paz MD [address] [facility] [place] [address] Home Care Provider Orthopedics 12/11/19 Moshe Paz MD [address] [place] [address] Referring Orthopedics 12/11/19 Rico Kelly, PT [address] [place] [address] [employer] Post Acute Care 12/13/19 Circuit Board Drafter Relationship Specialty Start Date End Date Hilary Bailey MD [address] [place], [place] [id number] PCP - General Family Medicine 05/08/20 Moshe Paz MD [address] [facility] [place] [address] Home Care Provider Orthopedics 12/11/19 Moshe Paz MD [address] [place] [address] Referring Orthopedics 12/11/19 Rico Kelly, PT [address] [place] [address] [employer] Post Acute Care 12/13/19 Circuit Board Drafter Relationship Specialty Start Date End Date Hilary Bailey MD [address] [place], [place] [id number] PCP - General Family Medicine 05/08/20 Moshe Paz MD [address] [facility] [place] [address] Home Care Provider Orthopedics 12/11/19 Moshe Paz MD [address] [place] [address] Referring Orthopedics 12/11/19 Rico Kelly, PT [address] [place] [address] [employer] Post Acute Care 12/13/19 Circuit Board Drafter Relationship Specialty Start Date End Date Hilary Bailey MD [address] [place] [address] PCP - General Family Medicine 05/08/20 Moshe Paz MD [address] [place] [address] Home Care Provider Orthopedics 12/11/19 Moshe Paz MD [address] [facility] [place] [address] Referring Orthopedics 12/11/19 Rico Kelly, PT [address] [place] [address] [employer] Post Acute Care 12/13/19 Circuit Board Drafter Relationship Specialty Start Date End Date Hilary Bailey MD [address] [place] [address] PCP - General Family Medicine 05/08/20 Moshe Paz MD [address] [facility] [place] [address] Home Care Provider Orthopedics 12/11/19 Moshe Paz MD [address] [facility] [place] [address] Referring Orthopedics 12/11/19 Rico Kelly, PT [address] [place] [address] [employer] Post Acute Care 12/13/19 Circuit Board Drafter Relationship Specialty Start Date End Date Hilary Bailey MD [address] [place], [place] [address] PCP - General Family Medicine 05/08/20 Moshe Paz MD [address] [place] [address] Home Care Provider Orthopedics 12/11/19 Moshe Paz MD [address] [place] [address] Referring Orthopedics 12/11/19 Rico Kelly, PT [address] [place] [address] [employer] Post Acute Care 12/13/19 Circuit Board Drafter Relationship Specialty Start Date End Date Hilary Bailey MD [address] [place] [address] PCP - General Family Medicine 05/08/20 Moshe Paz MD [address] [place] [address] Home Care Provider Orthopedics 12/11/19 Moshe Paz MD [address] [place] [address] Referring Orthopedics 12/11/19 Rico Kelly, PT [address] [place] [address] [employer] Post Acute Care 12/13/19 Circuit Board Drafter Relationship Specialty Start Date End Date Hilary Bailey MD [address] [place] [address] PCP - General Family Medicine 05/08/20 Moshe Paz MD [address] [place] [address] Home Care Provider Orthopedics 12/11/19 Moshe Paz MD [address] [place] [address] Referring Orthopedics 12/11/19 Rico Kelly, PT [address] [place] [address] [employer] Post Acute Care 12/13/19 Circuit Board Drafter Relationship Specialty Start Date End Date Hilary Bailey MD [address] [place], [place] [id number] PCP - General Family Medicine 05/08/20 Moshe Paz MD [address] [place] [address] Home Care Provider Orthopedics 12/11/19 Moshe Paz MD [address] [place] [address] Referring Orthopedics 12/11/19 Rico Kelly, PT [address] [place] [address] [employer] Post Acute Care 12/13/19 Circuit Board Drafter Relationship Specialty Start Date End Date Hilary Bailey MD [address] [place], [place] [address] PCP - General Family Medicine 05/08/20 Moshe Paz MD [address] [place] [address] Home Care Provider Orthopedics 12/11/19 Moshe Paz MD [address] [place] [address] Referring Orthopedics 12/11/19 Rico Kelly, PT [address] [place] [address] [employer] Post Acute Care 12/13/19 Circuit Board Drafter Relationship Specialty Start Date End Date Hilary Bailey MD [address] [place], [place] [address] PCP - General Family Medicine 05/08/20 Moshe Paz MD [address] [place] [address] Home Care Provider Orthopedics 12/11/19 Moshe Paz MD [address] [place] [address] Referring Orthopedics 12/11/19 Rico Kelly, PT [address] [place] [address] [employer] Post Acute Care 12/13/19 Circuit Board Drafter Relationship Specialty Start Date End Date Hilary Bailey MD [address] [place] [address] PCP - General Family Medicine 05/08/20 Moshe Paz MD [address] [place] [address] Home Care Provider Orthopedics 12/11/19 Moshe Paz MD [address] [place] [address] Referring Orthopedics 12/11/19 Rico Kelly, PT [address] [place] [id number] [employer] Post Acute Care 12/13/19 FOR RECORDS PERTAINING TO PATIENTS WHO ARE OR HAVE BEEN ENROLLED IN A CHEMICAL DEPENDENCY/SUBSTANCEABUSE PROGRAM, SOME INFORMATION MAY BE OMITTED. This clinical summary was aggregated from multiple sources. Caution should be exercised in using it in the provision of clinical care. This summary normalizes information from multiple sources, and as a consequence, information in this document may materially change the coding, format and clinical context of patient data. In addition, data may be omitted in some cases. CLINICAL DECISIONS SHOULD BE BASED ON THE PRIMARY CLINICAL RECORDS. [employer] provides no warranty or guarantee of the accuracy or completeness of information in this document.
== END | disposition home or self-care (01) ==
LOC: CVS 14:09
PROVIDERS: PCP Family Medicine; Referring Provider Orthopaedic Surgery; Visit Provider Orthopaedic Surgery
DX: M79.661 Pain in right lower leg (principal)
CPT/HCPCS: 93971

== ENCOUNTER → 2023-06-30 | Outpatient (CLI) | payer MEDICARE, SELFPAY ==
[2023-06-30 17:33] LABS: Absolute Neutrophil Count 2.5 X10^3/uL (2.0-7.7); Basophil# 0.07 X10^3/uL; Basophil% 1.5 % (0-1); Eosinophil# 0.29 X10^3/uL; Eosinophils% 6.3 % (0-5); Hematocrit 42.9 % (37-47); Hemoglobin 12.5 g/dL (12.0-15.0); Lymphocyte % 28.3 % (19-41); Mean Corp Hgb Conc 29.1 g/dL (32-36); Mean Corpuscular Volume 89.2 fL (81-99); Mean Platelet Vol. 9.3 fl (6.2-12.0); Monocyte# 0.41 X10^3/uL; Monocyte% 8.9 % (0-10); NRBC Flagged by Analyzer 0 % (0-5); Neutrophil # 2.52 X10^3/uL (2.7-7.7); Neutrophil % 54.8 % (47-70); POSITIVE MORPHOLOGY YES; Platelet Count 334 K/mm3 (150-450); RBC Distribution Width CV 23.8 % (11.6-14.6); RBC Distribution Width SD 76.8 fl (35.1-43.9); Red Blood Count 4.81 M/mm3 (4.2-5.4); White Blood Count 4.6 K/mm3 (4.4-11.0)
[2023-06-30 17:41] LABS: Differential Indicated SCAN CRITERIA MET
[2023-06-30 18:16] LABS: Platelet Estimate ADEQUATE (ADEQ)
[2023-06-30 18:17] LABS: Anisocytosis RARE; Red Cell Morphology N CHROM NORMAL (NORM C&C)
--- OUTSIDE RECORDS SUMMARY | 2023-06-30 20:00 | XMS RPT_ITS | CCD ---
Author Name Unknown Address [address] [place] [address] Organization [facility] Care Team Providers Care Damage Inside Adjuster Name Role Phone IRIS BELTRAN Unavailable Unavaila ble Brandi MCKEON, Moshe E Unavailable Brandi MCEKON Moshe E Unavailable Rufener PT, Rico Unavailable [...] Consulting Unavailable ALYSSIA BARRAGAN Referring Unavailable MILLA UY Attending Unavailable DONTE LIAO Admitting Unavailable BAILEY, [...] HILARY BAILEY A Primary Care Unavailable NAROUZE MD~[id number], NAROUZE SAMER Attending Unavailable [facility] Primary Care Unavailable NAROUZE MD~[id number], NAROUZE SAMER Admitting Unavailable NAROUZE MD~[id number], NAROUZE SAMER Admitting Unavailable [facility] Primary Care Unavailable NAROUZE MD~[id number], NAROUZE SAMER Attending Unavailable [facility] Primary Care Unavailable NAROUZE MD~[id number], NAROUZE SAMER Admitting Unavailable NAROUZE MD~[id number], NAROUZE SAMER Attending Unavailable [facility] Primary Care Unavailable NAROUZE MD, SAMER Admitting Unavailable NAROUZE MD, SAMER Attending Unavailable NAROUZE MD~[id number], NAROUZE SAMER Admitting Unavailable [facility] Primary Care Unavailable NAROUZE MD~[id number], NAROUZE SAMER Attending Unavailable [facility] Primary Care Unavailable NAROUZE MD, SAMER Admitting Unavailable NAROUZE MD, SAMER Attending Unavailable [facility] Primary Care Unavailable NAROUZE MD, SAMER Admitting Unavailable NAROUZE MD, SAMER Attending Unavailable NAROUZE MD, SAMER Attending Unavailable NAROUZE MD, SAMER Admitting Unavailable [facility] Primary Care Unavailable NAROUZE MD~[id number], NAROUZE SAMER Attending Unavailable [facility] Primary Care Unavailable NAROUZE MD~[id number], NAROUZE SAMER Admitting Unavailable JUJU MASON Attending Unavailable [facility] A Primary Care Unavailable Allergies Allergy Classification Reported Allergen(s) Allergy Type Date of Onset Reaction(s) Facility (20 sources) DULoxetine; Translations: [DULOXETINE] Drug Allergy 8 Other: See Comments [facility] Repository (1 source) NO KNOWN ALLERGIES; Translations: [NO KNOWN ALLERGIES] Propensity to adverse reactions to drug (disorder) [facility] Repository Medications Current Medications Medication Drug Class(es) [...] 8 01-15-2018 Chronic Other aftercare (1 source) 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-inflammatories (NSAID); Translations: [FPC USE NSAID] Onset: 3 Episodic Other aftercare (1 source) Other care home (current) drug therapy; Translations: [OTH [facility]PC CURRENT DRUG THERAPY] Onset: 3 Episodic Other [...] (20 sources) Drug therapy finding; Translations: [Other supervisor intermediates (current) drug therapy] Onset: 03-02-2017 03-02-2017 Episodic Other aftercare (1 source) 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; Translations: [FPC CURRNT USE OPIATE ANALGES] Onset: 09-06-2022 Episodic [...] 04-21-2023 16:21-0400 Body height 165.1 cm Sangeeta Sim MD Work Phone: [facility] 04-21-2023 16:21-0400 Body temperature 98.6 [degF] Sangeeta Sim MD Work Phone: [facility] 04-21-2023 16:21-0400 Body weight 52.8 kg Sangeeta Sim MD Work Phone: [facility] 04-21-2023 16:21-0400 Diastolic blood pressure 88 mm[Hg] Sangeeta Sim MD Work Phone: [facility] 04-21-2023 16:21-0400 Heart rate 94 /min Sangeeta Sim MD Work Phone: [facility] 04-21-2023 16:21-0400 SaO2% (BldA) [Mass fraction] 96 % Sangeeta Sim MD Work Phone: [facility] 04-21-2023 16:21-0400 Systolic blood pressure 102 mm[Hg] Sangeeta Sim MD Work Phone: [facility] 06-17-2022 12:11-0500 Body temperature 96.21 [degF] García Pendlebury URBAN DESIGN CONSULTANT.EDITORIAL MANAGER Work Phone: [facility] 06-17-2022 12:11-0500 Body weight 54.98 kg García Pendlebury URBAN DESIGN CONSULTANT.EDITORIAL MANAGER Work Phone: [facility] 06-17-2022 12:11-0500 Diastolic blood pressure 76 mm[Hg] García Pendlebury URBAN DESIGN CONSULTANT.EDITORIAL MANAGER Work Phone: [facility] 06-17-2022 12:11-0500 Heart rate 71 /min García Pendlebury URBAN DESIGN CONSULTANT.EDITORIAL MANAGER Work Phone: [facility] 06-17-2022 12:11-0500 Respiratory rate 18 /min García Pendlebury URBAN DESIGN CONSULTANT.EDITORIAL MANAGER Work Phone: [facility] 06-17-2022 12:11-0500 SaO2% (BldA) [Mass fraction] 98 % García Pendlebury URBAN DESIGN CONSULTANT.EDITORIAL MANAGER Work Phone: [facility] 06-17-2022 12:11-0500 Systolic blood pressure 122 mm[Hg] García Pendlebury URBAN DESIGN CONSULTANT.EDITORIAL MANAGER Work Phone: [facility] 06-16-2022 11:51-0500 Body temperature 97.3 [degF] Sofia Denbow PA-C Work Phone: [facility] 06-16-2022 11:51-0500 Body weight 54.8 kg Sofia Denbow PA-C Work Phone: [facility] 06-16-2022 11:51-0500 Diastolic blood pressure 78 mm[Hg] Sofia Denbow PA-C Work Phone: [facility] 06-16-2022 11:51-0500 Heart rate 92 /min Sofia Denbow PA-C Work Phone: [facility] 06-16-2022 11:51-0500 Respiratory rate 18 /min Sofia Denbow PA-C Work Phone: [facility] 06-16-2022 11:51-0500 SaO2% (BldA) [Mass fraction] 96 % Sofia Denbow PA-C Work Phone: [facility] 06-16-2022 11:51-0500 Systolic blood pressure 126 mm[Hg] Sofia Denbow PA-C Work Phone: [facility] 05-09-2022 08:04-0500 Body weight 55.34 kg Eladio Austin PA-C Work Phone: [facility] 02-21-2022 09:53-0400 Body height 167.6 cm Ольга Devin PA-C Work Phone: [facility] 02-21-2022 09:53-0400 Body temperature 97.3 [degF] Ольга Devin PA-C Work Phone: [facility] 02-21-2022 09:53-0400 Body weight 56.25 kg Ольга Devin PA-C Work Phone: [facility] 02-21-2022 09:53-0400 Diastolic blood pressure 84 mm[Hg] Ольга Devin PA-C Work Phone: [facility] 02-21-2022 09:53-0400 Heart rate 96 /min Ольга [place] PA-C Work Phone: [facility] 02-21-2022 09:53-0400 Respiratory rate 14 /min Ольга Devin PA-C Work Phone: [facility] 02-21-2022 09:53-0400 SaO2% (BldA) [Mass fraction] 95 % Ольга Devin PA-C Work Phone: [facility] 02-21-2022 09:53-0400 Systolic blood pressure 120 mm[Hg] Ольга Devin PA-C Work Phone: [facility] 11-17-2021 11:09-0400 Body height 167.6 cm Eladio Austin PA-Najma Work Phone: [facility] 11-17-2021 11:09-0400 Body weight 55.79 kg Eladio COATES-C Work Phone: [facility] Encounters Encounter Date Encounter Type Care Provider Facility Start: 06-19-2023 End: 06-19-2023 ambulatory [facility] Start: 06-19-2023 End: 06-20-2023 ambulatory BRIT PEREA MD~[id number] [facility] Start: 04-21-2023 End: 04-22-2023 ambulatory Sangeeta Sim Facility:[facility] Start: 04-21-2023 End: 04-21-2023 Patient encounter procedure Sangeeta Sim MD Work Phone: General Surgery Procedures Date Procedure Procedure Detail Performing Clinician Start: 02-15-2023 Antibody screen GARCÍA OBANDO Plan of Treatment Date Care Activity Detail Author Start: 05-30-2026 Urine microalbumin profile [facility] Start: 02-16-2026 DIABETES SCREEN DIABETES SCREEN [facility] Start: 02-16-2026 Diabetes Screening Diabetes Screening [facility] Start: 05-02-2025 DIABETES SCREEN DIABETES SCREEN [facility] Start: 03-03-2023 Covid-19 Vaccine () Covid-19 Vaccine () [facility] Start: 03-03-2023 Influenza vaccination INFLUENZA (#1) [facility] Start: 12-10-2022 DIABETES SCREEN DIABETES SCREEN [facility] Start: 08-21-2022 COVID-19 VACCINE (5 - Moderna series) COVID-19 VACCINE (5 - Moderna series) [facility] Start: 07-03-2022 ADVANCE DIRECTIVE DISCUSSION ADVANCE DIRECTIVE DISCUSSION [facility] Start: 03-03-2022 Influenza vaccination [facility] Start: 07-03-2021 ADVANCE DIRECTIVE DISCUSSION ADVANCE DIRECTIVE DISCUSSION [facility] Start: 03-03-2021 Influenza vaccination INFLUENZA (#1) [facility] Start: 01-25-2021 COVID-19 VACCINE (3 - Booster for Moderna series) COVID-19 VACCINE (3 - Booster for Moderna series) [facility] Start: 10-23-2020 COVID-19 VACCINE (3 - Booster for Moderna series) COVID-19 VACCINE (3 - Booster for Moderna series) [facility] Start: 2000 RSV Vaccine (1 - 1-dose 60+ series) RSV Vaccine (1 - 1-dose 60+ series) [facility] Start: 1990 SHINGRIX VACCINE (1 of 2) SHINGRIX VACCINE (1 of 2) [facility] Bacteria identified in Urine by Culture URINE CULTURE Microbiology Routine Urinary frequency Ordered: 06/16/2022 [facility] Work Phone: Immunizations Immunization Date Immunization Notes Care Provider Fa [facility] 03-18-2023 influenza, high dose seasonal, preservative-free Sangeeta Sim MD Work Phone: [facility] 04-20-2022 COVID-19 booster vaccine, age 12+ yr, bivalent (PFIZER-BIONTKilopass) Eladio Austin PA-C Work Phone: [facility] 04-13-2022 influenza, high dose seasonal, preservative-free Sangeeta Sim MD Work Phone: [facility] 05-07-2021 zoster vaccine recombinant Sangeeta Sim MD Work Phone: [facility] 01-20-2021 zoster vaccine recombinant Sangeeta Sim MD Work Phone: [facility] 03-27-2020 influenza, high dose seasonal, preservative-free Bridger Spencer PT Work Phone: [facility] 04-17-2018 influenza, high dose seasonal, preservative-free Bridger Spencer PT Work Phone: [facility] 04-29-2017 influenza, high dose seasonal, preservative-free Bridger Spencer PT Work Phone: [facility] 05-30-2016 DTaP-hepatitis B and poliovirus vaccine Sangeeta Sim MD Work Phone: [facility] 05-30-2016 tetanus toxoid, redu ana laura diphtheria toxoid, and acellular pertussis vaccine, adsorbed Bridgerchapito Spencer PT Work Phone: [facility] 05-03-2016 influenza, high dose seasonal, preservative-free Bridger Tj PT Work Phone: [facility] Work Phone: 03-16-2015 pneumococcal conjuga te vaccine, 13 valent Bridger Spencer PT Work Phone: [facility] 03-03-2014 influenza virus vacc ine, whole virus Bridger Spencer PT Work Phone: [facility] 04-12-2012 influenza virus vacc ine, unspecified formulation Bridger Spencer PT Work Phone: [facility] 06-03-2010 influenza virus vacc ine, unspecified formulation Bridger Spencer PT Work Phone: [facility] 08-16-2008 pneumococcal polysaccharide vaccine, 23 valent Bridger Spencer PT Work Phone: [facility] 07-03-2003 pneumococcal polysaccharide vaccine, 23 valent Sangeeta Sim MD Work Phone: [facility] Payers Date Payer Category Payer Medicare [employer] ANTHEM MYNEXUS [id number] 2019-Present [phone] [address] [place] [address] Medicare [id number] 2019 Unknown ANTHEM BLUE CROS S AND BLUE SHIELD ANTHEM MEDIBLUE ACCESS [id number] 2019-Present [phone] [address] [place] [address] PPO [id number] 2019 Unknown ANTHEM BLUE CROS S AND BLUE SHIELD ANTHEM MEDIBLUE ACCESS [id number] 2019-Present [phone] [address] [place] [address] PPO [id number] 2015 Unknown [id number] 1940 Unknown [id number] 1940 Unknown [id number] 1940 Unknown [id number] 1940 Unknown [id number] 1940 Unknown [id number] 1940 Unknown [id number] 1940 Unknown [id number] 1940 Unknown [id number] 1940 Unknown [id number] 1940 Unknown [id number] 4 Social History Date Type Detail Facility Start: 11-29-2019 End: 06-17-2022 Tobacco smoking status NHIS Ex-smoker [facility] Work Phone: End: 06-29-2005 History of tobacco use Current smoker [facility] End: 06-29-2005 History of tobacco use Cigarette Smoker [facility] Start: 12-14-2020 End: 05-04-2022 Alcohol intake Current drinker of alcohol (finding) [facility] Start: 11-29-2019 End: 12-11-2019 History SDOH Alcohol Frequency 5 [facility] Start: 11-29-2019 End: 12-11-2019 History SDOH Alcohol Std Drinks 1 [facility] Start: 12-11-2019 History SDOH Transport Med 2 [facility] Start: 12-11-2019 Education 12 [facility] Start: 1940 Sex Assigned At Not on file [facility] Start: 09-10-2021 End: 05-05-2022 Exposure to SARS-CoV-2 (event) Not sure [facility] Start: 11-29-2019 End: 06-06-2020 Cigarettes smoked current (pack per day) - Reported 0.2 [facility] Work Phone: Start: 11-29-2019 End: 06-17-2022 Tobacco use and exposure Smokeless tobacco non-user [facility] Work Phone: Start: 11-29-2019 End: 06-06-2020 Alcohol Use Disorder Identification Test - Consumption [AUDIT-C] [facility] Work Phone: How often to you hav e a drink containing alcohol? 4 or more times a week [facility] Work Phone: How many standard dr inks containing alcohol do you have on a typical day? 1 or 2 [facility] Work Phone: How often do you hav e 6 or more drinks on 1 occasion? Never [facility] Work Phone: How hard is it for y ou to pay for the very basics like food, housing, medical care, and heating Not hard at all [facility] Work Phone: (I/We) worried wheth er (my/our) food would run out before (I/we) got money to buy more. Never true [facility] Work Phone: In the past 12 month s, was there a time when you were not able to pay the mortgage or rent on time? No [facility] Work Phone: Start: 02-16-2023 Alcohol Comment occasional [facility] Start: 12-02-2020 End: 01-01-2021 Exposure to SARS-CoV-2 (event) Yes [facility] Medical Equipment Procedure Code Equipment Code Equipment Origin al Text Equipment Identifier Dates Graft Bn Canc 30 ml Allgrft - [id number] Start: 07-09-2014 Graft Bn Canc 30 ml Allgrft - [id number] Start: 07-09-2014 Watson Bn Smpx P Ra dpq Fd Strl - [id number] Start: 05-16-2011 Watson Bn Smpx P Ra dpq Fd Strl - [id number] Start: 05-16-2011 Cement Simplex P Bone Radiopaque Full Dose Sterile - [id number] Start: 12-10-2019 Cement Simplex P Bone Radiopaque Full Dose Sterile - [id number] Start: 12-10-2019 Qtv-Mp-Q-Kind Implant - [id number] Start: 05-16-2011 Clinical Notes 01-21-2021 to 04-21-2023 Sangeeta Sim MD - 04/21/2023 4:33 PM EDTBMonika whittington LPN - 04/21/2023 4:24 PM EDTTelephone Encounter - Zoie Mckeon RN - 02/22/2023 11:21 AM EDTPatient Instructions Note Date & Type Note Facility 04-21-2023 Note HNO ID: [id number] Author: Sangeeta Sim MD Service: ? Author Type: Physician Type: Progress Notes Filed: 04/22/2023 5:55 PM Note Text: Argenis Ho 1940 REFERRING PHYSICIAN: No ref. provider found CHIEF COMPLAINT: Consult (Ischemic Colitis) HPI: The patient is a 82 year old female with a complaint of severe generalized abdominal pain. She had undergone workup at [facility] in January of this year with CT scan, EGD/colonoscopy and was diagnosed with ischemic colitis. She presents with her daughter for treatment of this pain. She points to the mid abdomen and all throughout for this pain. She states that it comes and goes. She also complains of headache. They do not wish to return to [facility], the daughter states that she did not [...] WHEN PFRMD Colonoscopy CYSTOURETHROSCOPY Cystoscopy EGD W/O [facility] SPEC VARICIES INJ 03/10/2022 PAST SURGICAL HISTORY OF R THR x 3 PAST SURGICAL HISTORY OF Bilat TKR PAST SURGICAL HISTORY OF L Hip pinning (later removed) PAST SURGICAL HISTORY OF Heart Cath PAST SURGICAL HISTORY OF Dilation of left ureter PAST SURGICAL HISTORY OF 05/2011 L knee revision PAST SURGICAL HISTORY OF 2014 R THR - [place] PAST SURGICAL HISTORY OF Right 07/2014 total [...] as needed f (more content not included)... [facility] 04-21-2023 History of Presen t illness Narrative Argenis Ho 1940 REFERRING PHYSICIAN: No ref. provider found CHIEF COMPLAINT: Consult (Ischemic Colitis) HPI: The patient is a 82 year old female with a complaint of severe generalized abdominal pain. She had undergone workup at [facility] in January of this year with CT scan, EGD/colonoscopy and was diagnosed with ischemic colitis. She presents with her daughter for treatment of this pain. She points to the mid abdomen and all throughout for this pain. She states that it comes and goes. She also complains of headache. They do not wish to return to [facility], the daughter states that she did not [...] WHEN PFRMD Colonoscopy CYSTOURETHROSCOPY Cystoscopy EGD W/O [facility] SPEC VARICIES INJ 03/10/2022 PAST SURGICAL HISTORY OF R THR x 3 PAST SURGICAL HISTORY OF Bilat TKR PAST SURGICAL HISTORY OF L Hip pinning (later removed) PAST SURGICAL HISTORY OF Heart Cath PAST SURGICAL HISTORY OF Dilation of left ureter PAST SURGICAL HISTORY OF 05/2011 L knee revision PAST SURGICAL HISTORY OF 2014 R THR - [place] PAST SURGICAL HISTORY OF Right 07/2014 total [...] x5 Coronary Artery Disease Brother aged 52, [place] Diabetes Brother Type II No Family History [...] she had been already undergone workup at [facility], that would be the best location to be evaluated and treated at. They did not want me to refer them to GI medicine, and they didn't want to go back to [facility] The patient's daughter states that she was told by someone who answers phones that I could help and treat the patient. I have explained that there is no indication for surgery and that the patient would be best treated by a glove wrapper. I have explained that the patient should stop her NSAID use, but then the patient's daughter said that the doctors at [facility] told her otherwise. The patient's daughter was [...] Sangeeta Sim MD documented in this encounter [facility] 04-21-2023 Nurse Note REVIEW OF SYSTEMS: General: [...] Monika Fontanez LPN documented in this encounter [facility] 04-15-2023 Note HNO ID: [id number] Author: Note, Interface Service: ? Author Type: ? Type: Progress Notes Filed: 04/15/2023 5:26 AM Note Text: Epic Scheduled Downtime: 04/15/2023 1:00:00 AM to 04/15/2023 1:28:00 AM [facility] 02-22-2023 Miscellaneous Notes PATIENT INFORMATION Record ID: [id number] [facility]: [facility]: [facility] [place]: [facility] Attending: Milla Yu Center: Hospital Medicine INSTRUCTIONS All Clear SN to remind patient of next upcoming appointment date, time, location All Clear All Clear All Clear SURVEY INFORMATION Medical/Nurse Napkin Machine Operator: Zoie Mckeon 1. Your discharge instructions are [...] (Standard Question) No documented in this encounter [facility] 02-18-2023 Note HNO ID: [id number] Author: Milla Yu MD Service: Hospital Medicine Author Type: Physician Type: Progress Notes Filed: 03/01/2023 12:33 PM Note Text: Documentation Query Based on your medical judgment of the clinical indicators outlined below, please clarify the condition: (Please type X next to your response and sign) 02/16 Surgical pathology, resulted 02/20 Dr Kavita Jensen. 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 02/16 Surgical pathology updated 02/23 Dr. [...] In Diagnosis Ruled Out Other, please specify [facility] 02-17-2023 Note HNO ID: [id number] Author: Nikia Merchant APRN.SHANDRA Service: Gastroenterology Author Type: Nurse Practitioner Type: Plan of Care Filed: 02/17/2023 5:08 PM Note Text: GI following for GI bleed. S/p EGD/ Colonoscopy yesterday with Dr. Obando. Colonoscopy with Segmental moderate inflammation was found in the sigmoid colon and in the descending colon secondary to ischemic colitis. Biopsied. 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 Biopsied. CTA completed today demonstrating No [...] will sign off. GI Attending: Dr. Obando [facility] 02-17-2023 Note HNO ID: [id number] Author: Daysi De Jesus RN Service: Care [...] 17, 2023 TIME: 4:42 PM PAGER/CONTACT #: [phone] [facility] 02-17-2023 Note HNO ID: [id number] Author: Milla Yu MD Service: Hospital Medicine Author Type: Physician Type: Progress Notes Filed: 02/17/2023 12:01 PM Note Text: DEPARTMENT OF HOSPITAL MEDICINE PROGRESS NOTE SERVICE DATE: 02/17/2023 Hospital Medicine/Primary Attending: Milla Carney MD NIGHT AND WEEKEND COVERAGE: After 7pm please page [phone] SUBJECTIVE: patient complains of sharp left sided [...] TID PRN sodium chloride 0.65 % 2 Esmond 2 Esmond EACH NOSTRIL PRN prochlorperazine 10 mg injection [...] not on file) HOSPITAL COURSE: Argenis A [place] is a 82 year old female with [...] Argenis Ho PAGER/CONTACT #: Jennifer team spencer [facility] 02-16-2023 Note HNO ID: [id number] Author: Milla Yu MD Service: Hospital Medicine Author Type: Physician Type: Progress Notes Filed: 02/17/2023 8:28 AM Note Text: DEPARTMENT OF HOSPITAL MEDICINE PROGRESS NOTE SERVICE DATE: 02/16/2023 Hospital Medicine/Primary Attending: Milla Carney MD NIGHT AND WEEKEND COVERAGE: After 7pm please page [phone] SUBJECTIVE: headache almost gone No acute events [...] TID PRN sodium chloride 0.65 % 2 Esmond 2 Esmond EACH NOSTRIL PRN prochlorperazine 10 mg injection [...] MD PATIENT NAME: Argenis Ho PAGER/CONTACT #: [facility] team [facility] 02-16-2023 Note HNO ID: [id number] Author: Hoda Gunn APRN.CRNA Service: Anesthesiology Author Type: Nurse Vault Manager Type: Anesthesia Procedure Notes Filed: 02/16/2023 11:44 AM Note Text: ANESTHESIOLOGY PROCEDURE NOTE PIV General Information Procedure Start Time/Medication Administration: 02/16/2023 11:24 AM Staffing [employer]IM [employer] CROWN PRESSER: Jacque Marin APRN.[employer]IM [employer] CROWN PRESSER Performed by: [employer]IM [employer] CROWN PRESSER Preparation Sterility Preparation: hand hygiene performed prior to procedure, surgical cap used, mask used, skin prep agent completely dried prior to procedure Site Prep: Chloraprep Procedure Details Indication: need for IV access Needle Size/Type: 20 gauge angiocath Orientation: Right Location: Antecubital Imaging Guidance Used: No SIGNATURE: Hoda Gunn APRN.BRIM AND CROWN PRESSER PATIENT NAME: Argenis Ho DATE: February 16, 2023 TIME: 11:44 AM CSN: [id number] [facility] 02-15-2023 Note HNO ID: [id number] Author: Daysi De Jesus RN Service: Care Management Author Type: Registered Nurse Type: Care Mgt Initial Assessment Filed: 02/15/2023 3:57 PM Note Text: CARE MANAGEMENT: ASSESSMENT AND DISCHARGE PLAN SERVICE DATE: February 15, 2023 SERVICE TIME: 1555 PCP: Hilary Bailey MD Primary Contact: Extended Emergency Contact Information Primary Emergency Contact: Bladimir Ho Address: [address] [place] [address] [facility] Mobile Relation: Spouse Secondary Emergency Contact: Ro Wilkins Mobile Relation: Daughter Admission Status: Inpatient Insurance Provider: SHANDRA [employer] ACCESS Discharge Planning requested by: Per Department Practice Potential Transition Plans To Be Determined Advance Directives Current Advance Directive: Health Care Power of Product Coordinator In Chart: Yes Up To Date and [...] to go home, Independent living, Less pain Phelps of Choice Explained: Phelps of Choice Given: No Reason Not Given: [...] January. + DME, + RX coverage, uses [facility] in [place]. Goal is to return home at d/c. Family to provide transportation home. Will continue to follow. SIGNATURE: Daysi De Jesus RN PATIENT NAME: Argenis Ho DATE: February 15, 2023 TIME: 3:54 PM CONTACT #: [phone] [facility] 02-15-2023 Note HNO ID: [id number] Author: Milla Yu MD Service: Hospital Medicine Author Type: Physician Type: Progress Notes Filed: 02/15/2023 12:49 PM Note Text: DEPARTMENT OF HOSPITAL MEDICINE PROGRESS NOTE SERVICE DATE: 02/15/2023 SERVICE TIME: 12:46 PM Hospital Medicine/Primary Attending: Milla Carney MD NIGHT AND WEEKEND COVERAGE: After 7pm please page [phone] SUBJECTIVE: patient continues to have headache , [...] TID PRN sodium chloride 0.65 % 2 Esmond 2 Esmond EACH NOSTRIL PRN prochlorperazine 10 mg injection [...] TIME: 12:46 PM PAGER/CONTACT #: Jennifer palmer [facility] 06-20-2022 Miscellaneous Notes Patient returned phone call, notified of urine culture results, verbalized understanding of instructions given and to cotton picker script at [facility]. Ludmila Dukes MA Left message for pt to call back. Simona Nix MA Please notify patient that urine culture +, will treat with augmentin for 7 days. If still having symptoms needs to follow up with urology or PCP for further evaluation. Prescription sent to [facility]. Shelbi Lei APRN.EDITORIAL MANAGER documented in this encounter [facility] 06-17-2022 Miscellaneous Notes Left message for patient [...] helping. Please advise and call patient at [phone]. Lay Bailey LPN documented in this encounter [facility] 06-17-2022 Note HNO ID: [id number] Author: García Alvarez APRN.SHANDRA Service: ? Author [...] Date 2D ECHO (EXEP) 03/28/2018 EF=55%, mild Hernandze dysf, normal valves. ARTHROSCOPY KNEE DIAGNOSTIC W/WO SYNOVIAL BX SPX 06/2010 Arthroscopy, knee COLONOSCOPY 03/10/2022 COLONOSCOPY FLX DX W/COLLJ SPEC WHEN PFRMD Colonoscopy CYSTOURETHROSCOPY Cystoscopy EGD W/O [facility] SPEC VARICIES INJ 03/10/2022 PAST SURGICAL HISTORY OF R THR x 3 PAST SURGICAL HISTORY OF Bilat TKR PAST SURGICAL HISTORY OF L Hip pinning (later removed) PAST SURGICAL HISTORY OF Heart Cath PAST SURGICAL HISTORY OF Dilation of left ureter PAST SURGICAL HISTORY OF 05/2011 L knee revision PAST SURGICAL HISTORY OF 2014 R THR - [place] PAST SURGICAL HISTORY OF Right 07/2014 total [...] D ORAL) Take by mouth once daily. Gyhngle-Zmcenarccdtiq-Servsrny (EXCEDRIN MIGRAINE) 250-250-65 mg per tablet Take [...] Brother aged 52, (more content not included)... [facility] 06-17-2022 Instructions García Alvarez APRN.[facility] - 06/17/2022 12:38 PM EST [facility] [...] contaminate your hand documented in this encounter [facility] 06-17-2022 History of Presen t illness Narrative [...] D ORAL) Take by mouth once daily. Hokcmfo-Ksxnpfgyttdwn-Jcawwlhp (EXCEDRIN MIGRAINE) 250-250-65 mg per tablet Take [...] x5 Coronary Artery Disease Brother aged 52, MS Diabetes Brother Type II No Family History [...] swelling or pain on movement. Mouth/Throat: Lips: [place]. Mouth: Mucous membranes are moist. Pharynx: Oropharynx [...] of care. This note was generated using [employer]Light software. It may contain errors in wording, punctuation, or spelling. García Alvarez APRN.SHANDRA documented in this encounter [facility] 06-16-2022 Note HNO ID: [id number] Author: Sofia Delgado PA-C Service: ? Author Type: Physician Napkin Machine Operator Type: Progress Notes Filed: 06/16/2022 1:20 PM [...] x5 Coronary Artery Disease Brother aged 52, MS Diabetes Brother Type II No Family History [...] agrees with the plan. Sofia Delgado PA-C [facility] 06-16-2022 History of Presen t illness Narrative [...] x5 Coronary Artery Disease Brother aged 52, MS Diabetes Brother Type II No Family History [...] Sofia Delgado PA-C documented in this encounter [facility] 05-13-2022 Miscellaneous Notes Left message on AM that HIDA scan was normal. documented in this encounter [facility] 05-12-2022 Note HNO ID: [id number] Author: RT Marleni(R) Service: Nuclear Medicine Author [...] 12, 2022 TIME: 10:33 AM PAGER/CONTACT #: [facility] 05-12-2022 History of Presen t illness Narrative [...] safety can be found using this link: [email or web address] SIGNATURE: BRIT Yepez PATIENT NAME: Argenis Ho DATE: May 12, 2022 TIME: 10:33 AM PAGER/CONTACT #: documented in this encounter [facility] 05-09-2022 Note HNO ID: [id number] Author: Eladio Austin PA-C Service: ? Author Type: Physician Napkin Machine Operator Type: Progress Notes Filed: 05/12/2022 1:09 PM Note Text: Ortho Hip Follow Up Note Narrative Referring Provider: Alexandria Herrera [address], [address] [facility] [address] PCP: Hilary Bailey MD, MD IMPRESSION/PLAN: Impressions [...] HPI: Argenis Ho presents today for a supervisor intermediates follow-up visit. The patient states she has [...] days 05/04/22 Marcella Palmer DO; Hilary Valentine..., [id number] Hip pain ..., ED to Hosp-Admission (Discharged) (ADMIT) 05/02/22 [facility] History of total hip arthroplasty, right ..., ED (DISCHARGE) 03/10/22 Sangeeta Sim MD, LDSUR Abdominal pain, unspecified abdominal location ..., Admission (Discharged) Current Opioids Analgesic Opioid Agonists Start End oxyCODONE IR (ROXICODONE) 5 mg immediate release tabl (more content not included)... [facility] 05-09-2022 History of Presen t illness Narrative Images from the original note were not included. Ortho Hip Follow Up Note Narrative Referring Provider: Alexandria Herrera [address], [address] [facility] [address] PCP: Hilary Bailey MD, MD IMPRESSION/PLAN: Impressions [...] HPI: Argenis Ho presents today for a care home follow-up visit. The patient states she has [...] days 05/04/22 Marcella Palmer DO; Hilary Valentine..., [id number] Hip pain ..., ED to Hosp-Admission (Discharged) [...] 4 4 Planned treatment interventions Therapeutic exercise (65583);Neuromuscular re-education (73333);Manual therapy (33440);Therapeutic activities (36265);Self-fpc management (03366);Patient/Family/Caregiver Education;Body Mechanics Training Therapeutic exercise (89375);Neuromuscular re-education (23558);Manual therapy (55663);Therapeutic activities (46049);Self-fpc management (08264);Patient/Family/Caregiver Education;Gait Training (56809);Body Mechanics Training Therapeutic exercise (07334);Neuromuscular re-education (51990);Manual therapy (10752);Therapeutic activities (64947);Self-fpc management (87425);Patient/Family/Caregiver Education;Body Mechanics Training Plan for next visit [...] Eladio Austin PA-C documented in this encounter [facility] 05-05-2022 Note HNO ID: [id number] Author: Marcella Palmer DO Service: Hospital Medicine Author Type: Physician Type: Progress Notes Filed: 05/05/2022 4:03 PM Note Text: DEPARTMENT OF HOSPITAL MEDICINE PROGRESS NOTE SERVICE DATE: 05/05/2022 SERVICE TIME: 1:47 PM Hospital Medicine/Primary Attending: Marcella Palmer, DO NIGHT AND WEEKEND COVERAGE: [facility] COVERAGE: Days: [phone], please page Marcella Palemr for patient issues. Nights: [phone], please page Team GIM 1: G/H 8th floor: [address]; Non 8th floor [address] Subjective INTERVAL HPI: Pain has fairly significant headache, not relieved with oxycodone She was told at [place] ED to use Ibuprofen and Benadryl which [...] this same pain, including today (04/21/22 - [place], 05/02/22 - and today). She presented on 05/04 to [facility] with continued pain of right [...] of care dis (more content not included)... [facility] 05-04-2022 Note HNO ID: [id number] Author: RT Andria(R) Service: Radiology Author Type: [...] RT Andria(R) May 04, 2022 2:50 PM [facility] 05-02-2022 Note HNO ID: [id number] Author: RT Tamir(R) Service: ? Author Type: Adult Neuropsychologist Type: Progress Notes Filed: 05/02/2022 6:10 PM [...] RT Tamir(R) May 02, 2022 6:10 PM [facility] 05-02-2022 Note HNO ID: [id number] Author: RT Ino(R) Service: ? Author Type: [...] RT Ino(R) May 02, 2022 1:11 PM [facility] 04-20-2022 Miscellaneous Notes Pt called in about setting up Hida scan. Please call and help Pt. documented in this encounter [facility] 04-13-2022 Miscellaneous Notes Told patient results of US RUQ - normal gallbladder. Patient states that she has done some research and feels that her symptoms are attributed to gallbladder disease. I have recommended that the patient obtain a HIDA scan and then I will call her with the results. She agrees to proceed. documented in this encounter [facility] 04-11-2022 History of Presen t illness Narrative [...] 2022 2:17 PM documented in this encounter [facility] 03-18-2022 Miscellaneous Notes Attempted to contact patient with results of upper and lower endoscopy. Voicemail identified my number only, therefore did not leave message due to HIPAA. documented in this encounter [facility] 02-21-2022 Miscellaneous Notes Order did not drop in depot. Entered as optime Addended by: HAKEEM STEELE on: 02/21/2022 11:02 AM Modules accepted: Orders 03/10 colon/egd lodi documented in this encounter [facility] 02-21-2022 Nurse Note REVIEW OF SYSTEMS: General: [...] Mecca Gomez LPN documented in this encounter [facility] 02-21-2022 History of Presen t illness Narrative [...] every 8 hours as needed for Nausea/Vomiting. Qoinbqn-Hlnlizqlqlrrf-Zlaejkoq (EXCEDRIN MIGRAINE) 250-250-65 mg per tablet Take [...] x5 Coronary Artery Disease Brother aged 52, MS Diabetes Brother Type II No Family History Other Colon Cancer/Polyps REVIEW OF SYMPTOMS: The review of systems data was entered by the nurse and reviewed by ks Nursing Notes: Mecca GomezTRACY 02/21/2022 10:41 AM [...] patient was offered a surgery/procedure at a [facility] facility. I have counseled the patient regarding [...] which included preparing to see the patient, ztmi-go-bilq patient care, completing clinical documentation, obtaining and/or [...] Sydney Klein LPN documented in this encounter [facility] 11-17-2021 History of Presen t illness Narrative [...] D ORAL) Take by mouth once daily. Dpjtrtf-Qkbemtqqipubg-Eujtwjif (EXCEDRIN MIGRAINE) 250-250-65 mg per tablet Take [...] 03/28/2018 EF=55%, mild Hernandez dysf, normal valves. COLONOSCOP W/ OR W/O [facility] SPEC Colonoscopy CYSTO.PANENDO Cystoscopy KNEE SCOPE,DIAGNOSTIC 06/2010 Arthroscopy, knee PAST SURGICAL HISTORY OF R THR x 3 PAST SURGICAL HISTORY OF Bilat TKR PAST SURGICAL HISTORY OF L Hip pinning (later removed) PAST SURGICAL HISTORY OF Heart Cath PAST SURGICAL HISTORY OF Dilation of left ureter PAST SURGICAL HISTORY OF 05/13 L knee revision PAST SURGICAL HISTORY OF 2014 R THR - [place] PAST SURGICAL HISTORY OF Right 07/2014 total hip replacement ORTHOPEDIC SPECIFIC PROBLEMS: As above FAMILY HISTORY: FAMILY HISTORY Problem Relation Age of Onset Cancer Father Coronary Artery Disease Father Early 70's CABG x5 Coronary Artery Disease Brother aged 52, MS Diabetes Brother Type II No Family History [...] with the plan. documented in this encounter [facility] 11-17-2021 History of Presen t illness Narrative [...] 2021 10:30 AM documented in this encounter [facility] 10-06-2021 History of Presen t illness Narrative [...] continued difficulty with bending and loading the brass pourer. States she forgot to do her HEP [...] Bridger Spencer PT documented in this encounter [facility] 09-29-2021 History of Presen t illness Narrative [...] Planned: 4 Planned Treatment Interventions: Therapeutic exercise (26017);Neuromuscular re-education (02405);Manual therapy (04973);Therapeutic activities (94278);Self-fpc management (97876);Patient/Family/Caregiver Education;Body Mechanics Training PLAN FOR NEXT VISIT: [...] Bridger Spencer PT documented in this encounter [facility] 09-24-2021 History of Presen t illness Narrative [...] Patient to be seen for Therapeutic exercise (28847);Neuromuscular re-education (71816);Manual therapy (61070);Therapeutic activities (89783);Self-fpc management (51174);Patient/Family/Caregiver Education;Gait Training (63331);Body Mechanics Training PLAN FOR NEXT VISIT: Continue [...] Bridger Spencer PT documented in this encounter [facility] 01-21-2021 History of Presen t illness Narrative [...] 2021 11:36 AM documented in this encounter [facility]* Diagnosis Cervical spondylosis without myelopathy- Primary Spinal stenosis of lumbar region, unspecified whether neurogenic claudication present Lumbar spondylosis Lumbosacral spondylosis without myelopathy [facility]* Diagnosis Pain- Primary Generalized pain documented [facility]* Diagnosis Trochanteric bursitis of both hips- Primary Enthesopathy of hip region History of total hip arthroplasty, 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 documented [facility]* Diagnosis Pain Generalized pain documented [facility]* Diagnosis Abdominal pain, unspecified abdominal location- Primary Change in bowel habits Other symptoms involving digestive system documented in this encounter [facility] note* Diagnosis Generalized abdominal pain- Primary Abdominal pain, generalized Change in bowel habits Other symptoms involving digestive system Abdominal pain, unspecified abdominal location Change in bowel habits Other symptoms involving digestive system documented in this encounter [facility] note* Diagnosis RUQ abdominal pain Abdominal pain, right upper quadrant documented in [facility]* Diagnosis RUQ abdominal pain- Primary Abdominal pain, right upper quadrant documented [facility]* Diagnosis Trochanteric bursitis of right hip- Primary Enthesopathy of hip region 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 documented [facility]* Diagnosis Urinary frequency- Primary documented in this encounter [facility] note* Diagnosis Pharyngitis, unspecified etiology- Primary documented [facility]* Diagnosis Continuous severe abdominal pain- Primary Abdominal pain, unspecified site Ischemic colitis (HCC) Unspecified vascular insufficiency of intestine documented [facility]* Diagnosis RUQ abdominal pain Abdominal pain, right upper quadrant [facility] Pain Generalized pain Status post total replacement of both hips documented in this encounter [facility] for referral (narrative)* Diagnostic Procedure Only (Routine) - Authorized Specialty Diagnoses / Procedures Referred By Contac t Referred To Contact XR IMAGING Diagnoses Pain Procedures XR HIP BILATERAL 5V PEL/AP/LAT EACH HIP RADEX HIPS BILATERAL WITH PELVIS MINIMUM 5 VIEWS Eladio Austin PA-C [address] [place] [address] Xr Imaging Referral ID Status Reason Start Date Expiration Date Visits Requested Visits Authorized [id number] Authorized Auto-Generat ed Referral 11/10/2021 12/10/2022 1 1 [facility] for referral (narrative)* Diagnostic Procedure Only (Routine) - Closed Specialty Diagnoses / Procedures Referred By Contac t Referred To Contact XR IMAGING Diagnoses Pain Procedures XR HIP BILATERAL 5V PEL/AP/LAT EACH HIP RADEX HIPS BILATERAL WITH PELVIS MINIMUM 5 VIEWS Eladio Austin PA-C [address] [place] [address] Xr Imaging Referral ID Status Reason Start Date Expiration Date V isits Requested Visits Authorized [id number] Closed Auto-Generate d Referral 11/10/2021 12/10/2022 1 1 [facility] for referral (narrative)* Outpatient Procedure (Routine) - Pending Review Specialty Diagnoses / Procedures Referred By Contac t Referred To Contact [facility] Diagnoses Abdominal pain, unspecified abdominal location Change in bowel habits Procedures COLONOSCOPY SCREENING COLONOSCOPY SCREENING COLONOSCOPY SCREENING COLONOSCOPY FLX DX W/COLLJ SPEC WHEN PFRMD Ольга Beltran PA-C [address] [place] [address] [facility] [address] [place] [address] Referral ID Status Reason Start Date Expiration Date Visits Requested Visits Authorized [id number] Pending Review Auto-Generat ed Referral 02/21/2022 02/21/2023 1 1 * Outpatient Procedure (Routine) - Pending Review Specialty Diagnoses / Procedures Referred By Contac t Referred To Contact [facility] Diagnoses Abdominal pain, unspecified abdominal location Change in bowel habits Procedures EGD DIAGNOSTIC EGD DIAGNOSTIC EGD DIAGNOSTIC ESOPHAGOGASTRODUODENOSC OPY TRANSORAL DIAGNOSTIC Ольга Beltran PA-C [address] [place] [address] [facility] [address] [place] [address] Referral ID Status Reason Start Date Expiration Date Visits Requested Visits Authorized [id number] Pending Review Auto-Generat ed Referral 02/21/2022 02/21/2023 1 1 [facility] for referral (narrative)* Diagnostic Procedure Only (Routine) - Closed Specialty Diagnoses / Procedures Referred By Contac t Referred To Contact US IMAGING Diagnoses RUQ abdominal pain Procedures US ABD RT UPPER QUADRANT US ABDOMINAL REAL TIME W/IMAGE LIMITED Sangeeta Sim MD [address] [place] [address] Us Imaging Referral ID Status Reason Start Date Expiration Date V isits Requested Visits Authorized [id number] Closed Auto-Generate d Referral 03/25/2022 04/24/2023 1 1 [facility] for referral (narrative)* Diagnostic Procedure Only (Routine) - Pending Review Specialty Diagnoses / Procedures Referred By Contac t Referred To Contact [facility]CULAR [facility] FUNCTIONAL IMAGING Diagnoses RUQ abdominal pain Procedures NM HEPATOBILIARY W EF AND/OR RX HEPATOBIL SYST IMAG INC GB W/PHARMA INTERVENJ Sangeeta Sim MD [address] [place] [address] [facility] [address] [id number] Referral ID Status Reason Start Date Expiration Date Visits Requested Visits Authorized [id number] Pending Review Auto-Generat ed Referral 05/13/2023 1 1 [facility] Diagnostic Procedure Only (Routine) - Closed Specialty Diagnoses / Procedures Referred By Contac t Referred To Contact MOLECULAR & FUNCTIONAL IMAGING Diagnoses RUQ abdominal pain Procedures NM HEPATOBILIARY W EF AND/OR RX HEPATOBIL SYST IMAG INC GB W/PHARMA INTERVENJ Sangeeta Sim MD [address] [place] [address] [facility] [address] [place] [address] Referral ID Status Reason Start Date Expiration Date V isits Requested Visits Authorized [id number] Closed Auto-Generate d Referral 04/13/2022 05/13/2023 1 1 [facility] Summary Purpose Family History No Family History Records FoundNo Family History Records FoundNo Family History Records FoundNo Family History Records FoundNo Family History Records FoundNo Family History Records FoundNo Family History Records Found Advance Directives No Advanced Directives Records FoundDocuments on File Type Date Recorded Patient Fabrication Machine Operator Expl anation Advance Directive(s) 01/20/2017 3:49 PM Latest Code Status on File Code Status Date Activated Date Inactivated Comments Full Code 12/14/2019 12:47 PM 08/25/2020 11:07 AM Documents on File Type Date Recorded Patient Fabrication Machine Operator Expl anation Advance Directive(s) 12/22/2020 7:16 [...] Documents on File Type Date Recorded Patient Fabrication Machine Operator Expl anation Advance Directive(s) 12/22/2020 7:16 [...] Documents on File Type Date Recorded Patient Fabrication Machine Operator Expl anation Advance Directive(s) 01/20/2017 3:49 PM Documents on File Type Date Recorded Patient Fabrication Machine Operator Expl anation Advance Directive(s) 05/04/2022 2:06 PM Latest Code Status on File Code Status Date Activated Date Inactivated Comments Full Code 05/04/2022 5:35 PM 05/06/2022 8:28 PM Full Code Order Discussed With: Patient Full Code 12/14/2019 12:47 PM 08/25/2020 11:07 AM Documents on File Type Date Recorded Patient Fabrication Machine Operator Expl anation Advance Directive(s) 05/04/2022 2:06 [...] COMPLEX 45 MINS Eladio Austin PA-C [address] [id number] [facility] [id number] [place] [address] Referral ID Status Reason Start Date Expiration Date V isits Requested Visits Authorized [id number] Closed Auto-Generate d Referral 05/13/2022 05/13/2022 1 1 Health Concerns Infection Onset Date Last Indicated Resolved Time COVID-19 Rule-Out 05/04/2022 05/04/2022 05/04/2022 10:55 PM EDT Additional Source Comments INFORMATION SOURCE (unrecogn ized section and content) DATE CREATED AUTHOR AUTHOR'S ORGANIZ ATION 06/04/2020 [facility] DATE CREATED AUTHOR AUTHOR'S ORGANIZ ATION 12/22/2020 [facility] DATE CREATED AUTHOR AUTHOR'S ORGANIZ ATION 04/16/2023 [facility] DATE CREATED AUTHOR AUTHOR'S ORGANIZ ATION 04/26/2023 [facility] DATE CREATED AUTHOR AUTHOR'S ORGANIZ ATION 06/20/2023 [facility] DATE CREATED AUTHOR AUTHOR'S ORGANIZ ATION 06/22/2023 [facility] Source Comments (unrecognize d section and content) In the event this informatio n is protected by the Federal Confidentiality of Alcohol and Drug Abuse Patient Records regulations: The Federal rules restrict any use of the information to criminally investigate or prosecute any alcohol or drug abuse patient.[facility] event this information is protected by the Federal Confidentiality of Alcohol and Drug Abuse Patient Records regulations: The Federal rules restrict any use of the information to criminally investigate or prosecute any alcohol or drug abuse patient.[facility] the event this information is protected by the Federal Confidentiality of Alcohol and Drug Abuse Patient Records regulations: The Federal rules restrict any use of the information to criminally investigate or prosecute any alcohol or drug abuse patient.[facility] the event this information is protected by the Federal Confidentiality of Alcohol and Drug Abuse Patient Records regulations: The Federal rules restrict any use of the information to criminally investigate or prosecute any alcohol or drug abuse patient.[facility] event this information is protected by the Federal Confidentiality of Alcohol and Drug Abuse Patient Records regulations: The Federal rules restrict any use of the information to criminally investigate or prosecute any alcohol or drug abuse patient.[facility]bleIn the event this information is protected by the Federal Confidentiality of Alcohol and Drug Abuse Patient Records regulations: The Federal rules restrict any use of the information to criminally investigate or prosecute any alcohol or drug abuse patient.[facility] PrebleIn the event this information is protected by the Federal Confidentiality of Alcohol and Drug Abuse Patient Records regulations: The Federal rules restrict any use of the information to criminally investigate or prosecute any alcohol or drug abuse patient.[facility] PrebleIn the event this information is protected by the Federal Confidentiality of Alcohol and Drug Abuse Patient Records regulations: The Federal rules restrict any use of the information to criminally investigate or prosecute any alcohol or drug abuse patient.[facility] PrebleIn the event this information is protected by the Federal Confidentiality of Alcohol and Drug Abuse Patient Records regulations: The Federal rules restrict any use of the information to criminally investigate or prosecute any alcohol or drug abuse patient.[facility]bleIn the event this information is protected by the Federal Confidentiality of Alcohol and Drug Abuse Patient Records regulations: The Federal rules restrict any use of the information to criminally investigate or prosecute any alcohol or drug abuse patient.[facility]bleIn the event this information is protected by the Federal Confidentiality of Alcohol and Drug Abuse Patient Records regulations: The Federal rules restrict any use of the information to criminally investigate or prosecute any alcohol or drug abuse patient.[facility] PrebleIn the event this information is protected by the Federal Confidentiality of Alcohol and Drug Abuse Patient Records regulations: The Federal rules restrict any use of the information to criminally investigate or prosecute any alcohol or drug abuse patient.[facility]bleIn the event this information is protected by the Federal Confidentiality of Alcohol and Drug Abuse Patient Records regulations: The Federal rules restrict any use of the information to criminally investigate or prosecute any alcohol or drug abuse patient.[facility]bleIn the event this information is protected by the Federal Confidentiality of Alcohol and Drug Abuse Patient Records regulations: The Federal rules restrict any use of the information to criminally investigate or prosecute any alcohol or drug abuse patient.[facility]bleIn the event this information is protected by the Federal Confidentiality of Alcohol and Drug Abuse Patient Records regulations: The Federal rules restrict any use of the information to criminally investigate or prosecute any alcohol or drug abuse patient.[facility]bleIn the event this information is protected by the Federal Confidentiality of Alcohol and Drug Abuse Patient Records regulations: The Federal rules restrict any use of the information to criminally investigate or prosecute any alcohol or drug abuse patient.[facility]bleIn the event this information is protected by the Federal Confidentiality of Alcohol and Drug Abuse Patient Records regulations: The Federal rules restrict any use of the information to criminally investigate or prosecute any alcohol or drug abuse patient.[facility]bleIn the event this information is protected by the Federal Confidentiality of Alcohol and Drug Abuse Patient Records regulations: The Federal rules restrict any use of the information to criminally investigate or prosecute any alcohol or drug abuse patient.[facility]bleIn the event this information is protected by the Federal Confidentiality of Alcohol and Drug Abuse Patient Records regulations: The Federal rules restrict any use of the information to criminally investigate or prosecute any alcohol or drug abuse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
== END | disposition home or self-care (01) ==
LOC: MFPLAB 15:04
PROVIDERS: Family Medicine; PCP Family Medicine; Visit Provider Family Medicine
DX: D64.9 Anemia, unspecified (principal)
CPT/HCPCS: 36415; 85025

== ENCOUNTER → 2023-08-31 | Outpatient (CLI) | payer MEDICARE, SELFPAY | END | disposition home or self-care (01) | LOC: LABSPEC 16:19 | PROVIDERS: PCP Family Medicine; Visit Provider Family Medicine | DX: N39.0 Urinary tract infection, site not specified (principal) | CPT/HCPCS: 87077; 87086; 87088; 87186 ==

== ENCOUNTER → 2023-10-19 | Outpatient (CLI) | payer MEDICARE, SELFPAY ==
[2023-10-19 18:11] LABS: Absolute Lymphocyte Count 1.33 X10^3/uL (0.83-4.51); Basophil# 0.04 X10^3/uL; Basophil% 0.7 % (0-1); Eosinophil# 0.43 X10^3/uL; Eosinophils% 7.9 % (0-5); Hematocrit 38.3 % (37-47); Hemoglobin 12.2 g/dL (12.0-15.0); Lymphocyte # 1.33 X10^3/ul (0.83-4.51); Lymphocyte % 24.4 % (19-41); Mean Corp Hgb Conc 31.9 g/dL (32-36); Mean Corpuscular Hgb 31.5 pg (27.0-32.0); Mean Platelet Vol. 9.3 fl (6.2-12.0); Monocyte# 0.62 X10^3/uL; Monocyte% 11.4 % (0-10); NRBC Flagged by Analyzer 0 % (0-5); Neutrophil # 3.01 X10^3/uL (2.7-7.7); Neutrophil % 55.2 % (47-70); Platelet Count 259 K/mm3 (150-450); RBC Distribution Width CV 13.2 % (11.6-14.6); RBC Distribution Width SD 47.9 fl (35.1-43.9); Red Blood Count 3.87 M/mm3 (4.2-5.4); White Blood Count 5.5 K/mm3 (4.4-11.0)
[2023-10-19 18:26] LABS: Vitamin D,25 Hydroxy 47.2 ng/mL
[2023-10-19 19:14] LABS: ALB/GLOB Ratio 1.3 RATIO (0.9-2.4); AST(SGOT) 16 U/L (15-37); Alanine Aminotransfer ALT/SGPT 13 U/L (13-56); Albumin, Serum 3.8 g/dL (3.2-5.0); Alkaline Phosphatase 56 U/L (45-117); Anion Gap 4 (5-15); BUN 21 mg/dL (7-18); BUN/Creat Ratio 25.6 RATIO (10-20); Calcium,Total 9.1 mg/dL (8.5-10.1); Chloride 106 mmol/L (98-107); Creatinine, Serum 0.82 mg/dL (0.55-1.02); EST Glomerular Filtration Rate 71 mL/min (>60); Est Glom Filt Rate - Afr Amer 86 mL/min (>60); Ferritin 71 ng/mL (8-252); Glucose 84 mg/dL (74-106); Iron 90 ug/dL (50-170); Iron Binding Capacity,Total 301 ug/dL (250-450); PERCENT IRON SATURATION 29.9 % (15.0-55.0); Potassium 4.9 mmol/L (3.5-5.1); Protein, Total 6.8 g/dL (6.4-8.2); Sodium Level 140 mmol/L (136-145); Thyroid Stim Hormone (TSH) 1.02 uIU/mL (0.358-3.74)
== END | disposition home or self-care (01) ==
LOC: MFPLAB 16:07
PROVIDERS: PCP Family Medicine; Visit Provider Family Medicine
DX: E55.9 Vitamin D deficiency, unspecified (principal); R53.83 Other fatigue; Z86.2 Personal history of diseases of the blood and blood-forming organs and certain disorders involving the immune mechanism
CPT/HCPCS: 36415; 80053; 82306; 82728; 82746; 83540; 83550; 84443; 85025

== ENCOUNTER 2024-01-18 00:41 | Inpatient (IN) | payer MEDICARE, SELFPAY ==
[2024-01-18] VITALS (37 sets, daily range): BP systolic 91–144; BP diastolic 47–97; PULSE 57–97; RESP 14–30; TEMP 36.1–36.8; O2SAT 92–100; BMI 18.2; BMI 17.8
--- NOTE | 2024-01-18 01:13 | EKG12_ITS ---
Test Reason : SOB Blood Pressure : / mmHG Vent. Rate : 101 BPM Atrial Rate : 101 BPM P-R Int : 168 ms QRS Dur : 092 ms QT Int : 378 ms P-R-T Axes : 059 060 122 degrees QTc Int : 490 ms Sinus tachycardia PACS Left ventricular hypertrophy with repolarization abnormality ( Sokolow-Jacob ) Abnormal ECG Confirmed by FROYLAN MCKEON, KADI ([id number]), book editor ALLEN HAHN ([id number]) on 01/22/2024 10:21:06 AM Referred By: BG Confirmed By:KADI GALEANO MD
--- NOTE | 2024-01-18 01:13 | RAD_ITS ---
INDICATION: dyspnea EXAMINATION/TECHNIQUE: X-RAY - XR Chest 1 View COMPARISON: June 23, 2023. FINDINGS: LINES/DEVICES: None. LUNGS: Lungs symmetrically hyperexpanded. No consolidation, edema or effusion. No pneumothorax. MEDIASTINUM AND CARDIOVASCULAR STRUCTURES: Cardiac silhouette not enlarged. Mild aortic atherosclerosis. BONES AND SOFT TISSUES: Unremarkable. RAD/Chest 1 View (Portable) IMPRESSION: Hyperexpansion compatible with chronic obstructive pulmonary disease. Electronically Signed: Fantasma Flores MD at 3:06 EDT ,
--- NOTE | 2024-01-18 01:13 | CT_ITS ---
EXAM: CT ANGIOGRAPHY ABDOMEN AND PELVIS WITHOUT AND WITH INTRAVENOUS CONTRAST CLINICAL INDICATION: GI bleed TECHNIQUE: Helically acquired angiography images were obtained of the abdomen and pelvis without and with intravenous contrast. This CT exam was performed using one or more of the following dose reduction techniques: automated exposure control, adjustment of the mA and/or kV according to patient size, and/or use of iterative reconstruction technique. MIP reconstructed images were created and reviewed. CONTRAST: IV 75mL Isovue-370 RADIATION DOSE: Total DLP: 500.04 mGy-cm. COMPARISON: CT abdomen and pelvis of 02/13/2023. FINDINGS: VASCULATURE: AORTA: The abdominal aorta is calcific and is normal in caliber. No AAA. Calcified plaques in the common iliac arteries cause less than 50% stenosis. No dissection. CELIAC TRUNK AND MESENTERIC ARTERIES: Calcified plaque causes mild stenosis at the origin of the celiac axis and SMA. RENAL ARTERIES: Calcified plaque causes severe stenosis at the origin of the renal arteries. ILIAC ARTERIES: No hemodynamically significant stenosis identified within the external iliac, common femoral and visualized superficial femoral arteries. LOWER THORAX: Minimal dependent atelectasis. No pleural effusion. Coronary artery calcification is present. No significant pericardial effusion. A minimal hiatal hernia is suspected. ABDOMEN: LIVER: Unremarkable. Homogeneous. No focal mass. GALLBLADDER AND BILE DUCTS: Unremarkable. No calcified gallstones. No gallbladder distention or wall edema. No intra- or extrahepatic biliary ductal dilation. PANCREAS: Unremarkable. SPLEEN: Unremarkable. Normal size without focal cystic or solid mass. ADRENALS: Unremarkable. No nodules. KIDNEYS AND URETERS: Unremarkable right kidney. Left kidney shows multiple wedge-shaped areas of cortical scarring, unchanged. There has been interval development of a large wedge-shaped area of diminished enhancement with cortical thinning along the posterior medial aspect of the left kidney, consistent with subacute-old infarction. STOMACH AND BOWEL: Stomach is partially decompressed. Wall of the gastric antrum is mildly thickened, probably due to lack of distention of this portion of the stomach . No periduodenal inflammatory changes or distended small bowel loops. Majority of the colon is decompressed, causing the colonic wall to appear mildly thickened. No pericolonic stranding is seen to indicate diverticulitis or colitis. No nonenhancing bowel wall is identified. No extravasation of IV contrast into the bowel lumen is seen. PELVIS: APPENDIX: No evidence of acute appendicitis. BLADDER: Urinary bladder obscured by streak artifact. REPRODUCTIVE: Atrophic uterus. No adnexal mass. ABDOMEN and PELVIS: INTRAPERITONEAL SPACE: Unremarkable. No ascites or other fluid collection. No free air. BONES/JOINTS: There are old compression fractures at the L1, T12 and T11 levels, remaining more severe at T12. Findings of multilevel degenerative disc disease noted in the lumbar region with severe disc space narrowing, marginal osteophytes and endplate sclerosis. Extensive lumbar facet arthritis is present. Thecal sac is effaced and measures 3 to 4 mm in AP diameter at the L4/5 level due to broad-based annular bulging, facet hypertrophy, and ligamentum flavum hypertrophy and calcification. Osseous structures are demineralized. Bilateral hip arthroplasties are in place with associated streak artifact. There are old fractures of the left pubic rami. No suspicious lytic or blastic abnormality. SOFT TISSUES: Unremarkable. No discrete abdominal or pelvic wall hernia. LYMPH NODES: Unremarkable. No enlarged lymph nodes. CT/CTA Abd/Pelvis W/WO Contrast IMPRESSION: No abdominal aortic aneurysm or dissection. No extravasation of contrast into the bowel lumen to indicate an active GI bleed. No findings of diverticulitis or colitis. 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 Electronically Signed: Marcelo Wilde MD at 4:07 EDT ,
[2024-01-18] MEDS: Ondansetron 4 MG/2 ML Vial IV ×2 (01:47→03:38)
[2024-01-18] MEDS: 0.9% Normal Saline (1000mL) 1,000 ML 999 ML IV (01:47)
[2024-01-18 01:49] LABS: Absolute Lymphocyte Count 2.22 X10^3/uL (0.83-4.51); Absolute Neutrophil Count 8.5 X10^3/uL (2.0-7.7); Basophil# 0.07 X10^3/uL; Basophil% 0.6 % (0-1); Eosinophil# 0.13 X10^3/uL; Eosinophils% 1.1 % (0-5); Hematocrit 27.1 % (37-47); Hemoglobin 8.6 g/dL (12.0-15.0); Lymphocyte # 2.22 X10^3/ul (0.83-4.51); Lymphocyte % 18.7 % (19-41); Mean Corp Hgb Conc 31.7 g/dL (32-36); Mean Corpuscular Hgb 31.9 pg (27.0-32.0); Mean Corpuscular Volume 100.4 fL (81-99); Mean Platelet Vol. 9.5 fl (6.2-12.0); Monocyte# 0.92 X10^3/uL; Monocyte% 7.7 % (0-10); NRBC Flagged by Analyzer 0 % (0-5); Neutrophil % 71.4 % (47-70); Platelet Count 212 K/mm3 (150-450); RBC Distribution Width CV 13.5 % (11.6-14.6); White Blood Count 11.9 K/mm3 (4.4-11.0)
[2024-01-18] MEDS: Pantoprazole Sodium 80 MG in 0.9% Normal Saline (50mL Bag) 15 ML 420 MG IV BOLUS (01:55)
[2024-01-18 01:58] LABS: International Normalized Ratio 1.1; Prothrombin Time (Protime)PT. 14.3 SECONDS (11.7-14.9)
[2024-01-18 01:59] LABS: Partial Thromboplast Time 23.9 Seconds (24.1-36.2)
[2024-01-18] MEDS: Pantoprazole Sodium 80 MG in 0.9% Normal Saline (100mL Bag) 80 ML 10 MG CONT INF ×2 (02:06→11:17)
[2024-01-18 02:13] LABS: AST(SGOT) 13 U/L (15-37); Alanine Aminotransfer ALT/SGPT 12 U/L (13-56); Albumin, Serum 3.2 g/dL (3.2-5.0); Alkaline Phosphatase 45 U/L (45-117); Anion Gap 12 (5-15); BUN 55 mg/dL (7-18); BUN/Creat Ratio 45.5 RATIO (10-20); Bilirubin, Direct 0.12 mg/dL (0.00-0.30); Calcium,Total 8.3 mg/dL (8.5-10.1); Chloride 104 mmol/L (98-107); Creatinine, Serum 1.21 mg/dL (0.55-1.02); EST Glomerular Filtration Rate 45 mL/min (>60); Est Glom Filt Rate - Afr Amer 55 mL/min (>60); Globulin 2.5 g/dL (2.2-4.2); Glucose 221 mg/dL (74-106); Potassium 3.6 mmol/L (3.5-5.1); Protein, Total 5.7 g/dL (6.4-8.2); Sodium Level 139 mmol/L (136-145)
[2024-01-18 02:17] LABS: Lactic Acid 6.4 mmol/L (0.4-1.9)
[2024-01-18] MEDS: 0.9% Normal Saline (500mL Bag) 500 ML 999 ML IV (03:08)
[2024-01-18] MEDS: Morphine 2 MG/ML Syringe IV ×3 (03:08→10:47)
[2024-01-18] MEDS: fentaNYL 100 MCG/2 ML Ampul 25 MCG IV (03:49)
--- NOTE | 2024-01-18 04:07 | EDS_ITS ---
HPI History of Present Illness Chief Complaint: Shortness of Breath Informant: patient and spouse/S.O. Narrative Narrative: Patient is an 83-year-old female from home who is still a full code. She has a past medical history of COPD as well as chronic opioid use. She also has a history of dysphagia and previous esophageal ulcer. Reportedly she was to be on a proton pump inhibitor and Carafate but was not having improvement of her symptoms so these were stopped. Patient states that this evening she began and feel generalized fatigue and shortness of breath but denied chest pain or coughing. She states she has mild abdominal discomfort and nausea but states there has been no bouts of vomiting. Secondary to the symptoms EMS was called and she was brought in for evaluation. [facility] Medical History DVT (deep venous thrombosis) COPD (chronic obstructive pulmonary disease) Spondylosis Back pain Osteoarthritis Neoplasm of kidney Vitamin D deficiency Iron deficiency anemia Occipital neuralgia of right side Major depressive disorder Chronic headaches GERD (gastroesophageal reflux disease) Home Medications ?Medication ?Instructions ?Recorded ?Last Taken ?Type budesonide-formoterol HFA 160 2 puff inhalation BID breathing 05/01/21 Unknown History mcg-4.5 mcg/actuation aerosol inhaler albuterol sulfate 90 mcg/actuation 2 puff inhalation Q4H PRN 06/06/23 Unknown History aerosol inhaler ondansetron 4 mg disintegrating 8 mg PO Q8H PRN nausea and vomiting 06/06/23 Unknown History tablet oxybutynin chloride 10 mg 10 mg PO DAILY 06/06/23 Unknown History tablet,extended release 24 hr pantoprazole 40 mg tablet,delayed 20 mg PO DAILY 06/06/23 Unknown History release (Protonix) vit B complex 100 combo no.2 100 tab PO 06/06/23 Unknown History mg tablet,extended release (B-100 Complex ER) hydrocodone-acetaminophen 5-325mg 1 tab PO Q8H pain 06/21/23 Unknown History 5mg-325mg Arthritis Pain Compound 2 click topical BID ##0 06/26/23 Unknown Rx fluoxetine 40 mg capsule 40 mg PO DAILY 01/18/24 Unknown History Allergy/AdvReac Type Severity Reaction Status Date / Time No Known Allergies Allergy Verified 01/18/24 00:51 Family History Father CAD (coronary artery disease) CABG x 5 Skin cancer Brother Diabetes CAD (coronary artery disease) age 59 Skin cancer Mother Skin cancer Surgical History History of bilateral knee replacement History of left heart catheterization (~2002) History of open reduction and internal fixation (ORIF) procedure History of right hip replacement Social History household members: none Smoking Status: Former smoker alcohol intake: current alcohol intake frequency: a few times a week substance use type: does not use ROS ROS ED Constitutional Constitutional ED: Denies chills or fever(s) Eyes Eyes: Denies blurry vision or change in vision ENT ENT ED: Denies rhinorrhea or sore throat Cardiovascular Cardiovascular: Denies chest pain, palpitations or racing heartbeat Respiratory/Chest Respiratory/Chest: Reports dyspnea; Denies cough Gastrointestinal Gastrointestinal: Reports abdominal pain and nausea; Denies diarrhea or vomiting Genitourinary Genitourinary ED: Denies dysuria or hematuria Musculoskeletal Musculoskeletal: Reports back pain; Denies myalgias Integumentary Denies rash Neurologic Neurologic: Reports weakness; Denies headache(s) Hematologic/Lymphatic Hematologic/Lymphatic: Denies easy bleeding or easy bruising EXAM Physical Exam Const Vital Signs: 01/18/24 00:43 01/18/24 01:41 01/18/24 02:08 Temperature 97.8 F Temperature Source Oral Pulse Rate 96 86 90 Respiratory Rate 18 18 18 Blood Pressure 96/47 L 91/69 91/80 Blood Pressure Mean 63 76 83 Pulse Ox 99 97 97 Oxygen Delivery Method Room Air Room Air Room Air 01/18/24 03:00 01/18/24 03:42 Temperature Temperature Source Pulse Rate 84 91 Respiratory Rate 20 H 24 H Blood Pressure 99/59 L 121/77 H Blood Pressure Mean 72 91 Pulse Ox 97 97 Oxygen Delivery Method Room Air Room Air Positive well nourished and well developed General Appearance ED: well developed and pallor HEENT Reports moist mucous membranes HEENT Narrative: No tongue or lip swelling no oral lesions no airway edema or compromise Eyes PERRL and EOMs intact bilaterally Eyes Narrative: There is subconjunctival pallor noted General Eye ED: Yes pale conjunctiva; Negative for scleral icterus Neck supple and no JVD Neck Narrative: No nuchal rigidity or meningeal signs Resp normal respiratory effort Resp Narrative: Breath sounds are diminished throughout with faint expiratory wheeze in the bilateral lower lobes but no nasal flaring retractions tachypnea or accessory muscle use Cardio regular rate and regular rhythm Rate: other Other Details: Radial and carotid pulses are equal and symmetric GI normal to inspection, nondistended, normoactive bowel sounds, non-tender, non- distended and no masses GI Narrative: Abdomen is soft nontender nondistended with normal active bowel sounds. No voluntary guarding or rigidity or pulsatile mass Auscultation: normoactive bowel sounds Palpation: soft Narrative: Stool is dark maroon/melanotic in color and Hemoccult positive Extremity normal to inspection Neuro oriented x3, CN's II-XII intact bilaterally and no sensory deficits noted Sensorium / Orientation: alert Motor Exam: strength 5/5 throughout Psych mental status grossly normal Skin no rashes or lesions noted and No skin turgor normal Skin Narrative: There is diffuse pallor noted with increased skin turgor Capillary refill is at 3 seconds General Skin Exam: pallor; Negative for jaundice MDM MDM MDM Narrative Medical decision making narrative: Patient arrived to the ER borderline hypotensive with generalized weakness but otherwise stable vitals and no focal neurologic event. In order to ensure that her shortness of breath was not related to an acute cardiac dysrhythmia or acute coronary syndrome an EKG was obtained. EKG showed diffuse mild ST segment depression most consistent with mild ischemia but no signs of STEMI or cardiac dysrhythmia. As patient appeared very pale and slight tachycardic there is concern for GI bleed and a stool sample was obtained which is melanotic in color consistent with upper GI bleed. Basic labs were obtained and show a hemoglobin of 8.6. This is above a transfusion value but previous blood work from October of this year has a hemoglobin of 12.2 indicating a 4 point drop consistent with active bleed. In order to ensure her shortness of breath is more related to anemia than acute infection or pleural effusion a chest x-ray was performed which revealed no obvious findings. CTA of the abdomen was also ordered to check for an obvious source of bleeding but none were found. Chart review reveals patient has seen a GI doctor at an outside hospital in the past and does have history of dysphagia as well as previous esophageal ulcer. With concern there is repeat upper GI bleeding based on her history and exam she was started on a Protonix bolus and drip. She was given a 30 mill per kilo fluid bolus which equates to 1.5 L and did have improvement of her heart rate and blood pressure. At this time based on her repeat GI bleed and potential need for blood transfusion as well as EGD and/or colonoscopy transportation dispatch manager/Dr. Bonilla was contacted. He does agree to continue patient on her current form of therapy in the proton pump inhibitor drip and admit to the hospitalist for continued observation. Therefore medicine was contacted and they do agree to accept the patient for continued monitoring and care at this time History & Record Review Discussion w/independent historian: Patient and Significant other Lab Data Attestation: I reviewed the patient's lab results. Labs: Laboratory Results - last 24 hr 01/18/24 01:38 WBC 11.9 H RBC 2.70 L Hgb 8.6 L Hct 27.1 L MCV 100.4 H MCH 31.9 MCHC 31.7 L RDW Std Deviation 49.0 H RDW Coeff of Mark 13.5 Plt Count 212 MPV 9.5 Immature Gran % (Auto) 0.500 Neut % (Auto) 71.4 H Lymph % (Auto) 18.7 L [place] % (Auto) 7.7 Eos % (Auto) 1.1 Baso % (Auto) 0.6 Absolute Neuts (auto) 8.5 H Absolute Lymphs (auto) 2.22 Nucleated RBC % 0 PT 14.3 INR 1.1 APTT 23.9 L Sodium 139 Potassium 3.6 Chloride 104 Carbon Dioxide 23.0 Anion Gap 12 BUN 55 H Creatinine 1.21 H Estim Creat Clear Calc 27.70 Est GFR (MDRD) Af Amer 55 L Est GFR (MDRD) Non-Af 45 L BUN/Creatinine Ratio 45.5 H Glucose 221 H Lactic Acid 6.4 H* Calcium 8.3 L Total Bilirubin 0.20 Direct Bilirubin 0.12 AST 13 L ALT 12 L Alkaline Phosphatase 45 Total Protein 5.7 L Albumin 3.2 Globulin 2.5 Blood Type O NEGATIVE Antibody Screen NEGATIVE Radiography Diagnostic Testing: Clinical Impression(s) from Imaging Studies Abdomen/Pelvis CTA 01/18/24 01:13 IMPRESSION: No abdominal aortic aneurysm or dissection. No extravasation of contrast into the bowel lumen to indicate an active GI bleed. No findings of diverticulitis or colitis. 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 Electronically Signed: Marcelo Wilde MD at 4:07 EDT , Chest X-Ray 01/18/24 01:13 IMPRESSION: Hyperexpansion compatible with chronic obstructive pulmonary disease. Electronically Signed: Fantasma Flores MD at 3:06 EDT , 1 view chest x-ray as interpreted by the emergency medicine physician displays hyperinflated lungs consistent history of COPD without acute infiltrate pneumothorax or pleural effusion Management Discussion w/another healthcare provider: Hospitalist and County Program Technician Critical Care Time Critical Care Time: Yes Critical care time (excluding procedures): Discussing w/Patient &/or Family/Ginger Farmer, Discussing w/Consultants and - (Critical care time of 33 minutes) Discharge Plan Triage Chief Complaint: Shortness of Breath ED Provider: Brent Nuñez Dx/Rx/DC Orders Clinical Impression: Acute GI bleeding, Acute blood loss anemia, COPD (chronic obstructive pulmonary disease), Dysphagia, History of esophageal ulcer Prescriptions: No Action ondansetron 4 mg tablet,disintegrating 8 mg PO Q8H PRN (Reason: nausea and vomiting) budesonide-formoterol 160-4.5 mcg/actuation Hfa Aerosol Inhaler 2 puff INHALATION BID hydrocodone-acetaminophen 5-325 mg tablet 1 tab PO Q8H Arthritis Pain Compound 2 click topical BID Qty: 0 0RF fluoxetine 40 mg capsule 40 mg PO DAILY Primary Care Provider: Franc Lau Referrals: Franc Lau MD [Primary Care Provider] - Print Language: Tristanian Disposition Disposition: [facility]
--- NOTE | 2024-01-18 04:45 | PCM.HP.STD ---
HPI - General General Date of Admission: 01/18/24 Date of Service: 01/18/24 Chief Complaint: Melena. HPI Narrative SANDIE HO, is a 83 F with a past medical history of who presents [facility] Medical History DVT (deep venous thrombosis) COPD (chronic obstructive pulmonary disease) Spondylosis Back pain Osteoarthritis Neoplasm of kidney Vitamin D deficiency Iron deficiency anemia Occipital neuralgia of right side Major depressive disorder Chronic headaches GERD (gastroesophageal reflux disease) Home Medications ?Medication ?Instructions ?Recorded ?Last Taken ?Type budesonide-formoterol HFA 160 2 puff inhalation BID breathing 05/01/21 Unknown History mcg-4.5 mcg/actuation aerosol inhaler albuterol sulfate 90 mcg/actuation 2 puff inhalation Q4H PRN 06/06/23 Unknown History aerosol inhaler ondansetron 4 mg disintegrating 8 mg PO Q8H PRN nausea and vomiting 06/06/23 Unknown History tablet oxybutynin chloride 10 mg 10 mg PO DAILY 06/06/23 Unknown History tablet,extended release 24 hr pantoprazole 40 mg tablet,delayed 20 mg PO DAILY 06/06/23 Unknown History release (Protonix) vit B complex 100 combo no.2 100 tab PO 06/06/23 Unknown History mg tablet,extended release (B-100 Complex ER) hydrocodone-acetaminophen 5-325mg 1 tab PO Q8H pain 06/21/23 Unknown History 5mg-325mg Arthritis Pain Compound 2 click topical BID ##0 06/26/23 Unknown Rx fluoxetine 40 mg capsule 40 mg PO DAILY 01/18/24 Unknown History Allergy/AdvReac Type Severity Reaction Status Date / Time No Known Allergies Allergy Verified 01/18/24 00:51 Family History Father CAD (coronary artery disease) CABG x 5 Skin cancer Brother Diabetes CAD (coronary artery disease) age 59 Skin cancer Mother Skin cancer Surgical History History of bilateral knee replacement History of left heart catheterization (~2002) History of open reduction and internal fixation (ORIF) procedure History of right hip replacement Social History household members: none Smoking Status: Former smoker alcohol intake: current alcohol intake frequency: a few times a week substance use type: does not use Vital Signs Vital Signs Vital Signs: 01/18/24 00:43 01/18/24 01:41 01/18/24 02:08 Temperature 97.8 F Temperature Source Oral Pulse Rate 96 86 90 Respiratory Rate 18 18 18 Blood Pressure 96/47 L 91/69 91/80 Blood Pressure Mean 63 76 83 Pulse Ox 99 97 97 Oxygen Delivery Method Room Air Room Air Room Air 01/18/24 03:00 01/18/24 03:42 Temperature Temperature Source Pulse Rate 84 91 Respiratory Rate 20 H 24 H Blood Pressure 99/59 L 121/77 H Blood Pressure Mean 72 91 Pulse Ox 97 97 Oxygen Delivery Method Room Air Room Air Weight Weight: 109 lb 12.643 oz Body Mass Index (BMI) 18.2 Results Lab / Micro Data 01/18/24 01:38 01/18/24 01:38 Labs: Laboratory Results - last 24 hr 01/18/24 01:38: WBC 11.9 H, RBC 2.70 L, Hgb 8.6 L, Hct 27.1 L, MCV 100.4 H, MCH 31.9, MCHC 31.7 L, RDW Std Deviation 49.0 H, RDW Coeff of Mark 13.5, Plt Count 212, MPV 9.5, Immature Gran % (Auto) 0.500, Neut % (Auto) 71.4 H, Lymph % (Auto) 18.7 L, [place] % (Auto) 7.7, Eos % (Auto) 1.1, Baso % (Auto) 0.6, Absolute Neuts (auto) 8.5 H, Absolute Lymphs (auto) 2.22, Nucleated RBC % 0, PT 14.3, INR 1.1, APTT 23.9 L, Sodium 139, Potassium 3.6, Chloride 104, Carbon Dioxide 23.0, Anion Gap 12, BUN 55 H, Creatinine 1.21 H, Estim Creat Clear Calc 27.70, Est GFR (MDRD) Af Amer 55 L, Est GFR (MDRD) Non-Af 45 L, BUN/Creatinine Ratio 45.5 H, Glucose 221 H, Lactic Acid 6.4 H*, Calcium 8.3 L, Total Bilirubin 0.20, Direct Bilirubin 0.12, AST 13 L, ALT 12 L, Alkaline Phosphatase 45, Total Protein 5.7 L, Albumin 3.2, Globulin 2.5, Blood Type O NEGATIVE, Antibody Screen NEGATIVE Micro: Microbiology 01/18/24 02:09 Stool Stool Occult Blood (KIM) - Final Occult Blood Positive Imaging Radiology Impression Abdomen/Pelvis CTA 01/18/24 01:13 IMPRESSION: No abdominal aortic aneurysm or dissection. No extravasation of contrast into the bowel lumen to indicate an active GI bleed. No findings of diverticulitis or colitis. 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 Electronically Signed: Marcelo Wilde MD at 4:07 EDT , Chest X-Ray 01/18/24 01:13 IMPRESSION: Hyperexpansion compatible with chronic obstructive pulmonary disease. Electronically Signed: Fantasma Flores MD at 3:06 EDT , Assessment & Plan Assessment/Plan (1) Chronic ischemic colitis: (2) Acute GI bleeding: (3) Acute blood loss anemia: (4) History of esophageal ulcer:
--- NOTE | 2024-01-18 04:53 | PCM.HP.STD ---
[facility] - General General Date of Admission: 01/18/24 Date of Service: 01/18/24 Chief Complaint: Melena, Hypotension, Generalized Weakness and Headache. HPI Narrative SANDIE HO, is a 83 F with a past medical history of essential hypertension, history of tobacco abuse; with subsequent COPD, history of DVT; not currently on anticoagulation, history of neoplasm of kidney, history of Right Occipital Neuralgia; with Chronic Headaches followed by Dr. 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 Bonilla of gastroenterology and recent UGIB; with unremarkable EGD performed at [facility] ~1 month ago with patient still FULL CODE who presents to [facility] ER complaining of melanotic stools, hypotension, generalized weakness and headache. Ms. Ho reports her symptoms began approximately one hour prior to arrival when she had a large, black bowel movement with melanotic stools. She also admits to severe generalized fatigue and mild abdominal discomfort and SOB with nausea but she denies associated vomiting. She states her symptoms are similar to her recent UGIB. She denies related fever, chills, chest pain, cough, palpitations or diaphoresis but she does admit to severe headache and she also states she is not sure if her Protonix and Carafate were stopped by her doctor or if she just ran out of them. In the ER she was diagnosed with melanotic stools likely due to UGIB from PUD; evidenced by BUN of 55 mg/dL and serum creatinine of 1.21 mg/dL present on admission suspected to be due at least in part to an Adverse Drug Reaction to Fluoxetine as SSRI's work to increase serotonin levels by blocking signalling between platelets thereby increasing potential bleeding risk in addition to failing to take Protonix and Carafate causing ABLA with hemoglobin of 8.6 g/dL present on admission complicated by additional laboratory evidence of Lactic Acidosis of 6.4 mmol/L present on admission with corresponding Hypotension and Generalized Weakness suggestive of early hemorrhagic shock with an acute recurrence of her chronic occipital headache and she was then admitted to the ICU for ongoing care for a stay that is expected to extend beyond 2 midnights. [facility] Medical History (Updated 01/18/24 @ 06:[address] Nilesh Gaona DO) DVT (deep venous thrombosis) COPD (chronic obstructive pulmonary disease) Spondylosis Back pain Osteoarthritis Neoplasm of kidney Vitamin D deficiency Iron deficiency anemia Occipital neuralgia of right side Major depressive disorder Chronic headaches GERD (gastroesophageal reflux disease) Home Medications ?Medication ?Instructions ?Recorded ?Last Taken ?Type budesonide-formoterol HFA 160 2 puff inhalation BID breathing 05/01/21 Unknown History mcg-4.5 mcg/actuation aerosol inhaler albuterol sulfate 90 mcg/actuation 2 puff inhalation Q4H PRN 06/06/23 Unknown History aerosol inhaler ondansetron 4 mg disintegrating 8 mg PO Q8H PRN nausea and vomiting 06/06/23 Unknown History tablet oxybutynin chloride 10 mg 10 mg PO DAILY 06/06/23 Unknown History tablet,extended release 24 hr pantoprazole 40 mg tablet,delayed 20 mg PO DAILY 06/06/23 Unknown History release (Protonix) vit B complex 100 combo no.2 100 tab PO 06/06/23 Unknown History mg tablet,extended release (B-100 Complex ER) hydrocodone-acetaminophen 5-325mg 1 tab PO Q8H pain 06/21/23 Unknown History 5mg-325mg Arthritis Pain Compound 2 click topical BID ##0 06/26/23 Unknown Rx fluoxetine 40 mg capsule 40 mg PO DAILY 01/18/24 Unknown History Allergy/AdvReac Type Severity Reaction Status Date / Time No Known Allergies Allergy Verified 01/18/24 00:51 Family History Father CAD (coronary artery disease) CABG x 5 Skin cancer Brother Diabetes CAD (coronary artery disease) age 59 Skin cancer Mother Skin cancer Surgical History History of left heart catheterization (~2002) History of bilateral knee replacement History of open reduction and internal fixation (ORIF) procedure History of right hip replacement Social History household members: none Smoking Status: Former smoker alcohol intake: current alcohol intake frequency: a few times a week substance use type: does not use ROS ROS Narrative Review of systems: Constitutional: Patient admits to generalized weakness and fatigue but she denies fever, chills or sweats. Eyes: Patient denies changes in vision or discharge from eyes. ENT: Patient denies runny nose, sore throat or ear pain. CV: Patient denies chest pain, palpitations or heart racing. Resp: Patient admits to SOB with minimal activity. GI: Patient admits to melanotic stools, abdominal pain and nausea. She denies vomiting or diarrhea. : Patient denies dysuria or hematuria. MSK: Patient admits to back pain but denies arthralgias and myalgias. Skin: Patient denies rash, abscess or jaundice. Neuro: Patient denies headache, paresthesias or focal neurologic deficits. Allergy: Patient denies lip swelling, tongue swelling or urticaria. Psychiatry: Patient denies symptoms of uncontrolled depression or anxiety. Hematology: Patient admits to melanotic stools as per HPI. Endocrinology: Patient denies polyuria, polydipsia and polyphagia. 14 point ROS otherwise negative except for positives noted above in HPI. Vital Signs Vital Signs Vital Signs: 01/18/24 00:43 01/18/24 01:41 01/18/24 02:08 Temperature 97.8 F Temperature Source Oral Pulse Rate 96 86 90 Respiratory Rate Respiratory Effort Respiratory Depth Blood Pressure 96/47 L 91/69 91/80 Blood Pressure Mean 63 76 83 Pulse Ox 99 97 97 Oxygen Delivery Method Room Air Room Air Room Air 01/18/24 03:00 01/18/24 03:42 01/18/24 04:45 Temperature 96.9 F L Temperature Source Pulse Rate 84 91 80 Respiratory Rate 20 H 24 H 26 H Respiratory Effort Respiratory Depth Blood Pressure 99/59 L 121/77 H 113/63 Blood Pressure Mean 72 91 79 Pulse Ox 97 97 95 Oxygen Delivery Method Room Air Room Air 01/18/24 04:47 Temperature Temperature Source Pulse Rate Respiratory Rate Respiratory Effort Short of Breath Respiratory Depth Normal Blood Pressure Blood Pressure Mean Pulse Ox Oxygen Delivery Method Room Air Weight Weight: 109 lb 12.643 oz Body Mass Index (BMI) 18.2 Physical Exam Const alert, oriented x3, no apparent distress and average body habitus General Appearance: cooperative HEENT normocephalic, head/scalp atraumatic, hearing grossly normal bilaterally and moist oral mucous membranes Eyes PERRL and EOMs intact bilaterally Neck no lymphadenopathy and supple Resp normal respiratory effort, no retractions, no use of accessory muscles and clear to auscultation bilaterally Cardio regular rate and regular rhythm GI normal to inspection, nondistended, normoactive bowel sounds, soft to palpation and non-distended GI Narrative: Mild generalized TTP. Extremity normal to inspection, full ROM and no clubbing, cyanosis or edema Skin Skin Narrative: Patient has no evidence of rash, abscess or jaundice. Neuro oriented x3, CN's II-XII intact bilaterally, moves all extremities and no focal motor deficits Sensorium / Orientation: awake, alert, oriented to person, oriented to place and oriented to time Speech: speech normal Psych affect normal Results Medical Records Data Attestation: I reviewed the patient's medical records Lab / Micro Data Attestation: I reviewed the patient's lab results. 01/18/24 01:38 01/18/24 01:38 Labs: Laboratory Results - last 24 hr 01/18/24 01:38: WBC 11.9 H, RBC 2.70 L, Hgb 8.6 L, Hct 27.1 L, MCV 100.4 H, MCH 31.9, MCHC 31.7 L, RDW Std Deviation 49.0 H, RDW Coeff of Mark 13.5, Plt Count 212, MPV 9.5, Immature Gran % (Auto) 0.500, Neut % (Auto) 71.4 H, Lymph % (Auto) 18.7 L, [place] % (Auto) 7.7, Eos % (Auto) 1.1, Baso % (Auto) 0.6, Absolute Neuts (auto) 8.5 H, Absolute Lymphs (auto) 2.22, Nucleated RBC % 0, PT 14.3, INR 1.1, APTT 23.9 L, Sodium 139, Potassium 3.6, Chloride 104, Carbon Dioxide 23.0, Anion Gap 12, BUN 55 H, Creatinine 1.21 H, Estim Creat Clear Calc 27.70, Est GFR (MDRD) Af Amer 55 L, Est GFR (MDRD) Non-Af 45 L, BUN/Creatinine Ratio 45.5 H, Glucose 221 H, Lactic Acid 6.4 H*, Calcium 8.3 L, Total Bilirubin 0.20, Direct Bilirubin 0.12, AST 13 L, ALT 12 L, Alkaline Phosphatase 45, Total Protein 5.7 L, Albumin 3.2, Globulin 2.5, Blood Type O NEGATIVE, Antibody Screen NEGATIVE Micro: Microbiology 01/18/24 02:09 Stool Stool Occult Blood (KIM) - Final Occult Blood Positive Imaging Radiology Impression Abdomen/Pelvis CTA 01/18/24 01:13 IMPRESSION: No abdominal aortic aneurysm or dissection. No extravasation of contrast into the bowel lumen to indicate an active GI bleed. No findings of diverticulitis or colitis. 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 Electronically Signed: Marcelo Wilde MD at 4:07 EDT , Chest X-Ray 01/18/24 01:13 IMPRESSION: Hyperexpansion compatible with chronic obstructive pulmonary disease. Electronically Signed: Fantasma Flores MD at 3:06 EDT , Assessment & Plan Assessment/Plan (1) Acute GI bleeding: (2) Acute blood loss anemia: (3) Adverse drug reaction: QUALIFIERS: Encounter type: initial encounter Qualified Code(s): T50.905A - Adverse effect of unspecified drugs, medicaments and biological substances, initial encounter (4) History of esophageal ulcer: (5) Lactic acidosis: (6) Occipital neuralgia of right side: (7) Chronic ischemic colitis: (8) GERD (gastroesophageal reflux disease): QUALIFIERS: Esophagitis presence: esophagitis presence not specified Qualified Code(s): K21.9 - Gastro-esophageal reflux disease without esophagitis (9) History of DVT (deep vein thrombosis): PLAN: Plan 1. Melanotic stools likely due to UGIB from PUD; evidenced by BUN of 55 mg/dL and serum creatinine of 1.21 mg/dL present on admission - Admit to ICU. Continue Protonix drip begun in the ER and keep strict NPO. Check STAT NM GI Bleed Scan in an effort to precisely pinpoint source of bleeding. Volume resuscitate with NS IVF. Transfuse for hemoglobin < 7 g/dL with repeat CBC pending at 10:00 AM. Give Zofran IV prn to control nausea and hopefully prevent vomiting. Give Morphine IV prn for severe pain. Finally, we will consult Dr. Bonilla of gastroenterology to see this patient on-rounds in the AM for further recommendations regarding EGD this admission with help appreciated in advance. 2. Adverse Drug Reaction to Fluoxetine as SSRI's work to increase serotonin levels by blocking signalling between platelets thereby increasing potential bleeding risk in addition to failing to take Protonix and Carafate causing ABLA with hemoglobin of 8.6 g/dL present on admission likely triggering #1 - Hold Fluoxetine and consider stopping this agent permanently with due to this recurrent UGIB. Continue Protonix IV and then switch to oral PPI plus restart Carafate when patient is safely able to resume oral intake. 3. Lactic Acidosis of 6.4 mmol/L present on admission with Hypotension, Severe Fatigue and Generalized Weakness with Dyspnea upon minimal exertion suggestive of possible early hemorrhagic shock arising from #1 & #2 - Aggressively volume resuscitate and serialize lactates to ensure improvement. Mild Leukocytosis of 11.9K present on admission suspected to be due to Acute Stress Response attributable to recent bleeding with no current signs of infection clearly identified at this time - but we will add UA to increase certainty. 4. Recent UGIB; with unremarkable EGD performed at [facility] ~1 month ago with patient still FULL CODE complicating #1 - #3 - Noted with CTA scan of abdomen and pelvis done in ER this admission also not revealing evidence of active GI bleeding at this time. 5. 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 Friend of gastroenterology adding a long chronicity to the pathologic impact of #1 - #4 - Noted. 6. History of Right Occipital Neuralgia; with Frequent Headaches followed by neurology with acute recurrence likely caused by #1 - #3 - Give Morphine 2 mg IV once now and monitor for improvement. 7. History of Chronic Ischemic Colitis and KAVON - Noted. Check iron studies and watch for further bleeding. 8. History of DVT; not currently on anticoagulation - Stable with no signs of VTE present on admission. 9. Essential Hypertension - Hold scheduled antihypertensives until source of bleeding has been identified and definitively treated. 10. History of Tobacco Abuse; with subsequent COPD - Stable with no evidence of flare at this time. Continue prn nebulizers. 11. 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 12. Glaucoma - Apparently stable with patient not on eye drops at this time. 13. History of Major Depressive Disorder with Anxiety; on Fluoxetine - Noted with this agent suspected to be playing a [place] role in her recurrent bleeding episodes as noted above. She also states her physician was going to change this to an alternative agent because she feels like it is not helping her depression. 14. History of Severe Claustrophobia; with patient requiring sedation to obtain MRI - Noted. 15. History of Vitamin D deficiency - Check Vitamin D level this admission. 16. OA; with history bilateral TKR's and Right THR (~2002) - Stable. 17. History of Spinal Spondylosis with Chronic Back Pain; on Hydrocodone TID prn - Give IV Morphine prn for severe pain since patient cannot take oral medications at this time. 18. DVT prophylaxis - SCD's only in light of recent melanotic stools outlined in #1. Total time: Approximately 75 minutes. Charges/Coding Visit Charges Inpatient E&M: 82701 Init Hosp L3
--- NOTE | 2024-01-18 05:12 | ED.RN ---
Report called to Tanesha BRITO, questions/concerns answered
[2024-01-18 05:32] LABS: Ferritin 61 ng/mL (8-252); Iron 99 ug/dL (50-170); Iron Binding Capacity,Total 251 ug/dL (250-450); PERCENT IRON SATURATION 39.4 % (15.0-55.0)
[2024-01-18 05:46] LABS: Reflex Lactate? Y
[2024-01-18] MEDS: 0.9% Normal Saline (1000mL) 1,000 ML 70 ML IV ×2 (05:48→21:34)
[2024-01-18 06:09] LABS: Lactic Acid 0.7 mmol/L (0.4-1.9)
[2024-01-18 06:28] LABS: Magnesium 1.8 mg/dL (1.6-2.6); Phosphorus 3.1 mg/dL (2.5-4.9); Thyroid Stim Hormone (TSH) 1.61 uIU/mL (0.358-3.74)
[2024-01-18 06:42] LABS: Lactic Acid 0.7 mmol/L (0.4-1.9)
[2024-01-18] MEDS: Albuterol 2.5 MG/3 ML VIAL.NEB. INHALATION ×2 (06:54→19:59)
[2024-01-18] MEDS: Budesonide Respules 0.5 MG/2 ML AMPUL.NEB. INHALATION ×2 (06:54→20:00)
[2024-01-18 10:01] LABS: Absolute Lymphocyte Count 1.95 X10^3/uL (0.83-4.51); Absolute Neutrophil Count 4.8 X10^3/uL (2.0-7.7); Basophil# 0.04 X10^3/uL; Basophil% 0.5 % (0-1); Eosinophil# 0.04 X10^3/uL; Eosinophils% 0.5 % (0-5); Hematocrit 19.2 % (37-47); Hemoglobin 6.3 g/dL (12.0-15.0); Lymphocyte # 1.95 X10^3/ul (0.83-4.51); Lymphocyte % 26.3 % (19-41); Mean Corp Hgb Conc 32.8 g/dL (32-36); Mean Corpuscular Hgb 32.1 pg (27.0-32.0); Mean Platelet Vol. 9.2 fl (6.2-12.0); Monocyte% 8.1 % (0-10); NRBC Flagged by Analyzer 0 % (0-5); Neutrophil # 4.76 X10^3/uL (2.7-7.7); Neutrophil % 64.2 % (47-70); Platelet Count 156 K/mm3 (150-450); RBC Distribution Width CV 13.5 % (11.6-14.6); RBC Distribution Width SD 47.6 fl (35.1-43.9); Red Blood Count 1.96 M/mm3 (4.2-5.4); White Blood Count 7.4 K/mm3 (4.4-11.0)
--- NOTE | 2024-01-18 10:02 | CASEMGMT ---
DARYL RAMOS Assessment Face to Face with patient for initial transition planning/care coordination assessment. DARYL RAMOS introduced self and role at [facility], pt voices understanding. Pt is A&Ox4 and is resting comfortably in bed and is calm. Pt daughter at bedside. Care providers, pharmacy, and demographics verified. Admitting dx: UGJORDY BOYER Strata: 2 PCP: Franc Lau Specialists: Lucero (PM), Hansel (GI) Preferred Pharmacy: [facility] Insurance: [employer] [facility] Prescription Benefit: Yes LNOK: Bladimir Prajapati (H), Ro Huntley (Daughter) Living Arrangements: Pt lives with her in a two story home with 2 steps to enter and a FFSU ADLs/IADLs: Pt requires assistance and the pt and daughter are able to provide this help Transportation: Self, , Daughter. Denies concerns DME: FWW, Cane, BP Monitor, Walk in shower with GB and chair, Raised TS, BSC. Pt states that she has an old luna W/C and would like a new one. A verbal list of local in network DME companies provided to the pt at this time. Pt prefers [employer]. This DARYL RAMOS called ASHLEY Sandra liaison at this time. Jocy updated that this pt will like a W/C and the liaison states that she will be able to deliver this to the pt room prior to DC. If the pt qualifies for a SNF, the pt family will be able to manage the W/C. RACHEL will collaborate with the and ASHLEY to ge this set up for the pt. HHC/SNF:States Hx of HH and SNF in [place] but cannot recall the names Pt?s goal: Return to [place] Plan: TBD. Anticipant SNF vs Home with HHC. Pt is scheduled for an EGD today. Therapy eval to follow. CM and SW to follow pt progression in the hospital as well as therapy recommendations to decipher the safest DC plan moving forward. Griselda Arthur RN, CM
--- NOTE | 2024-01-18 10:31 | CASEMGMT ---
W/C Rx signed by Dr. Jain at this time. Referral sent to [facility] via [facility] at this time. MD Notified of specific DME documentation needed on DC Summary for insurance purposes.
--- NOTE | 2024-01-18 12:48 | PCM.PRE.AN2 ---
ASA Classification* ASA Classification ASA Classification: 3 and E Assessment & Plan Anesthesia* Anesthesia Assessment Anesthesia Assessment: Discussed sedation and/or anesthesia options, risks, benefits, and alternatives with patient/parents/legal guardian/POA. Questions invited. The patient/parents/legal guardian/POA seems to understand and agrees to proceed with anesthesia plan. Reviewed the physical assessment, medical history, allergy history and patient home medications list prior to surgery/procedure/anesthetic and documented any changes. Performed airway and anesthesia risk assessments. Anesthesia Type Anesthesia Type: MAC History Source History Obtained from:: Patient and Chart Anesthesia Focused Assessment* Temperature: 97.9 F Pulse Rate: 78 Blood Pressure: 118/95 Respiratory Rate: 18 Pulse Ox: 98 Oxygen Delivery Method: Room Air Airway Assessment Mouth opens: 2 cm Mallampati Score: IV Teeth Condition: Caps/Crowns (Patient has Sterile type.) Neck Range of motion (ROM): Full ROM Pertinent Findings EKG Pertinent Findings:: DecemberJanuary 18, 2024 sinus tachycardia At 101. Left ventricular hypertrophy. Focused Labs Anesthesia Preop lab: CBC WBC 7.4 K/mm3 (4.4-11.0) 01/18/24 09:52 RBC 1.96 M/mm3 (4.2-5.4) L 01/18/24 09:52 Hgb 6.3 g/dL (12.0-15.0) L 01/18/24 09:52 Hct 19.2 % (37-47) L 01/18/24 09:52 Plt Count 156 K/mm3 (150-450) 01/18/24 09:52 CHEMISTRY Potassium 3.6 mmol/L (3.5-5.1) 01/18/24 01:38 Sodium 139 mmol/L (136-145) 01/18/24 01:38 Magnesium 1.8 mg/dL (1.6-2.6) 01/18/24 05:55 Phosphorus 3.1 mg/dL (2.5-4.9) 01/18/24 05:55 BUN 55 mg/dL (7-18) H 01/18/24 01:38 Creatinine 1.21 mg/dL (0.55-1.02) H 01/18/24 01:38 Glucose 221 mg/dL (74-106) H 01/18/24 01:38 TSH 1.61 uIU/mL (0.358-3.74) 01/18/24 05:55 COAG PT 14.3 SECONDS (11.7-14.9) 01/18/24 01:38 Pre-Assessment Diagnosis/Proposed Procedure Planned Operative Procedure(s): Esophagogastroduodenoscopy Anesthesia History 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 When Was Last Pacemaker Check QUESTION #4 FULL TEXT: You/Your Family Experience fever (hyperthermia) with Anesthesia Last Oral Intake Last Oral intake: Last Oral Intake NPO since Meds taken in AM with sips of water? 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 Female HX of Motion Sickness HX of N/V After Surgery Non-Smoker Duration of Surgery greater than 60 minutes Number of Risk Factors PONV Score Height & Weight Height & Weight: Anesthesia: Height & Weight Height 5 ft 5 in 01/18/24 11:15 Weight: 48.5 kg 01/18/24 11:15 Body Mass Index (BMI) 17.8 01/18/24 05:42 Respiratory Assessment Respiratory Assessment - postal service clerk: Respiratory Tract Infection Hx - postal service clerk Hx Respiratory Tract Infection No 01/10/19 13:43 STOP Sleep Apnea STOP Sleep Apnea - postal service clerk: STOP Sleep Apnea - postal service clerk Hx Hypertension Yes 01/18/24 05:32 Hx Sleep Apnea No 01/18/24 05:32 CPAP No 01/14/19 09:18 BIPAP Do you snore loudly (louder No 01/18/24 05:32 than talking or can be heard Do you often feel tired/ No 01/18/24 05:32 fatigued/ sleepy during daytime? Has anyone observed you stop No 01/18/24 05:32 breathing during sleep? STOP Results Negative 01/18/24 05:32 QUESTION #5 FULL TEXT : Do you snore loudly (louder than talking or can be heard through closed doors)? 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 Specify any problems Hx of Preganancy in last 3 N/A 01/18/24 05:32 Months Nurse Filling Out Transfusion ROSE MARIE 01/18/24 05:32 & Questions: Date: 01/18/24 01/18/24 05:32 Time: 05:35 01/18/24 05:32 Patient unable to answer at this time (ie. confused, unrespo /Reproduction History /Reproductive History - postal service clerk: /Reproductive Hx- postal service clerk Hx Now Gestational Age (in weeks): EDC: Hx Hx Para Hx Section SAB Active Medications Active Medications: Current Medications Generic Name Dose Route Start Last Admin Trade Name Freq PRN Reason Stop Dose Admin Albuterol Sulfate 2.5 mg 01/18/24 06:00 01/18/24 06:54 Albuterol 2.5 Mg/3 Ml Vial.Neb. INHALATION 2.5 mg Q6HWA.RT SAMY Administration Budesonide 0.5 mg 01/18/24 06:00 01/18/24 06:54 Budesonide Respules 0.5 Mg/2 Ml Ampul.Neb. INHALATION 0.5 mg Q12H.RT SAMY Administration Pantoprazole Sodium 80 mg/ 100 mls @ 10 mls/hr 01/18/24 01:17 01/18/24 11:17 Sodium Chloride CONT INF 10 mls/hr Q10H SAMY Administration Sodium Chloride 1,000 mls @ 70 mls/hr 01/18/24 04:52 01/18/24 05:48 IV 70 mls/hr .[id number] SAMY Administration Sodium Chloride 250 mls @ 15 mls/hr 01/18/24 05:40 IV .[id number] PRN Additional IVPB Infusion Sodium Chloride 250 mls @ 15 mls/hr 01/18/24 05:40 IV .[id number] PRN Saline Flush Morphine Sulfate 2 mg 01/18/24 05:31 01/18/24 10:47 Morphine 2 Mg/Ml Syringe IV 2 mg Q4H PRN PRN Administration Pain Score 6-10 Ondansetron HCl 4 mg 01/18/24 05:31 Ondansetron 4 Mg/2 Ml Vial IV Q8H PRN PRN NAUSEA/VOMITING Sodium Chloride 10 - 40 ml 01/18/24 05:40 0.9% Saline Lock 10 Ml Syringe IV UD PRN SALINE FLUSH PFSH Medical History DVT (deep venous thrombosis) COPD (chronic obstructive pulmonary disease) Spondylosis Back pain Osteoarthritis Neoplasm of kidney Vitamin D deficiency Iron deficiency anemia Occipital neuralgia of right side Major depressive disorder Chronic headaches GERD (gastroesophageal reflux disease) Home Medications ?Medication ?Instructions ?Recorded ?Last Taken ?Type budesonide-formoterol HFA 160 2 puff inhalation BID breathing 05/01/21 Unknown History mcg-4.5 mcg/actuation aerosol inhaler albuterol sulfate 90 mcg/actuation 2 puff inhalation Q4H PRN 06/06/23 Unknown History aerosol inhaler ondansetron 4 mg disintegrating 8 mg PO Q8H PRN nausea and vomiting 06/06/23 Unknown History tablet oxybutynin chloride 10 mg 10 mg PO DAILY 06/06/23 Unknown History tablet,extended release 24 hr pantoprazole 40 mg tablet,delayed 20 mg PO DAILY 06/06/23 Unknown History release (Protonix) vit B complex 100 combo no.2 100 tab PO 06/06/23 Unknown History mg tablet,extended release (B-100 Complex ER) hydrocodone-acetaminophen 5-325mg 1 tab PO Q8H pain 06/21/23 Unknown History 5mg-325mg Arthritis Pain Compound 2 click topical BID ##0 06/26/23 Unknown Rx cranberry extract 500 mg capsule 500 mg PO DAILY UTI Prevention 01/18/24 Unknown History (Cranberry Concentrate) fluoxetine 40 mg capsule 20 mg PO DAILY Depression 01/18/24 Unknown History zuPOO 1 - 2 cap PO DAILY Constipation 01/18/24 01/17/24 History Allergy/AdvReac Type Severity Reaction Status Date / Time No Known Allergies Allergy Verified 01/18/24 00:51 Family History Father CAD (coronary artery disease) CABG x 5 Skin cancer Brother Diabetes CAD (coronary artery disease) age 59 Skin cancer Mother Skin cancer Surgical History History of left heart catheterization (~2002) History of bilateral knee replacement History of open reduction and internal fixation (ORIF) procedure History of right hip replacement Social History household members: none Smoking Status: Former smoker alcohol intake: current alcohol intake frequency: a few times a week substance use type: does not use Review of Systems (Anesthesia) ROS Narrative System reviewed and no additional complaints, except as documented.
--- NOTE | 2024-01-18 12:57 | CON.PCM.GI_ITS ---
HPI Consult Data Date of Consult: 01/18/24 HPI Narrative Reason for Consultation: GI bleed HPI Narrative: SANDIE HO, is a 83-year-old female from home who is still a full code. She has a past medical history of COPD as well as chronic opioid use. She also has a history of dysphagia and previous esophageal ulcer. Reportedly she was to be on a proton pump inhibitor and Carafate but was not having improvement of her symptoms so these were stopped. Patient states that this evening she began and feel generalized fatigue and shortness of breath but denied chest pain or coughing. She states she has mild abdominal discomfort and nausea but states there has been no bouts of vomiting. Secondary to the symptoms EMS was called and she was brought in for evaluation. Her symptoms began approximately one hour prior to arrival when she had a large, black bowel movement with melanotic stools. She also admits to severe generalized fatigue and mild abdominal discomfort and SOB with nausea but she denies associated vomiting. She states her symptoms are similar to her recent UGIB. She denies related fever, chills, chest pain, cough, palpitations or diaphoresis but she does admit to severe headache and she also states she is not sure if her Protonix and Carafate were stopped by her doctor or if she just ran out of them. In the ER she was diagnosed with melanotic stools likely due to UGIB from PUD; evidenced by BUN of 55 mg/dL and serum creatinine of 1.21 mg/dL present on admission suspected to be due at least in part to an Adverse Drug Reaction to Fluoxetine as SSRI's work to increase serotonin levels by blocking signalling between platelets thereby increasing potential bleeding risk in addition to failing to take Protonix and Carafate causing ABLA with hemoglobin of 8.6 g/dL [facility] Medical History DVT (deep venous thrombosis) COPD (chronic obstructive pulmonary disease) Spondylosis Back pain Osteoarthritis Neoplasm of kidney Vitamin D deficiency Iron deficiency anemia Occipital neuralgia of right side Major depressive disorder Chronic headaches GERD (gastroesophageal reflux disease) Home Medications ?Medication ?Instructions ?Recorded ?Last Taken ?Type budesonide-formoterol HFA 160 2 puff inhalation BID breathing 05/01/21 Unknown History mcg-4.5 mcg/actuation aerosol inhaler albuterol sulfate 90 mcg/actuation 2 puff inhalation Q4H PRN 06/06/23 Unknown History aerosol inhaler ondansetron 4 mg disintegrating 8 mg PO Q8H PRN nausea and vomiting 06/06/23 Unknown History tablet oxybutynin chloride 10 mg 10 mg PO DAILY 06/06/23 Unknown History tablet,extended release 24 hr pantoprazole 40 mg tablet,delayed 20 mg PO DAILY 06/06/23 Unknown History release (Protonix) vit B complex 100 combo no.2 100 tab PO 06/06/23 Unknown History mg tablet,extended release (B-100 Complex ER) hydrocodone-acetaminophen 5-325mg 1 tab PO Q8H pain 06/21/23 Unknown History 5mg-325mg Arthritis Pain Compound 2 click topical BID ##0 06/26/23 Unknown Rx cranberry extract 500 mg capsule 500 mg PO DAILY UTI Prevention 01/18/24 Unknown History (Cranberry Concentrate) fluoxetine 40 mg capsule 20 mg PO DAILY Depression 01/18/24 Unknown History zuPOO 1 - 2 cap PO DAILY Constipation 01/18/24 01/17/24 History Allergy/AdvReac Type Severity Reaction Status Date / Time No Known Allergies Allergy Verified 01/18/24 00:51 Family History Father CAD (coronary artery disease) CABG x 5 Skin cancer Brother Diabetes CAD (coronary artery disease) age 59 Skin cancer Mother Skin cancer Surgical History History of left heart catheterization (~2002) History of bilateral knee replacement History of open reduction and internal fixation (ORIF) procedure History of right hip replacement Social History household members: none Smoking Status: Former smoker alcohol intake: current alcohol intake frequency: a few times a week substance use type: does not use ROS ROS Narrative Review of systems: Constitutional: Patient admits to generalized weakness and fatigue but she denies fever, chills or sweats. Eyes: Patient denies changes in vision or discharge from eyes. ENT: Patient denies runny nose, sore throat or ear pain. CV: Patient denies chest pain, palpitations or heart racing. Resp: Patient admits to SOB with minimal activity. GI: Patient admits to melanotic stools, abdominal pain and nausea. She denies vomiting or diarrhea. : Patient denies dysuria or hematuria. MSK: Patient admits to back pain but denies arthralgias and myalgias. Skin: Patient denies rash, abscess or jaundice. Neuro: Patient denies headache, paresthesias or focal neurologic deficits. Allergy: Patient denies lip swelling, tongue swelling or urticaria. Psychiatry: Patient denies symptoms of uncontrolled depression or anxiety. Hematology: Patient admits to melanotic stools as per HPI. Endocrinology: Patient denies polyuria, polydipsia and polyphagia. 14 point ROS otherwise negative except for positives noted above in HPI. Physical Exam Const alert, oriented x3, no apparent distress and average body habitus General Appearance: cooperative HEENT normocephalic, head/scalp atraumatic, hearing grossly normal bilaterally and moist oral mucous membranes Eyes PERRL and EOMs intact bilaterally Neck no lymphadenopathy and supple Resp normal respiratory effort, no retractions, no use of accessory muscles and clear to auscultation bilaterally Cardio regular rate and regular rhythm GI normal to inspection, nondistended, normoactive bowel sounds, soft to palpation and non-distended GI Narrative: Mild generalized TTP. Extremity normal to inspection, full ROM and no clubbing, cyanosis or edema Skin Skin Narrative: Patient has no evidence of rash, abscess or jaundice. Neuro oriented x3, CN's II-XII intact bilaterally, moves all extremities and no focal motor deficits Sensorium / Orientation: awake, alert, oriented to person, oriented to place and oriented to time Speech: speech normal Psych affect normal Lab / Micro Data 01/18/24 09:52 01/18/24 01:38 Labs: Laboratory Results - last 24 hr 01/18/24 01:38: WBC 11.9 H, RBC 2.70 L, Hgb 8.6 L, Hct 27.1 L, MCV 100.4 H, MCH 31.9, MCHC 31.7 L, RDW Std Deviation 49.0 H, RDW Coeff of Mark 13.5, Plt Count 212, MPV 9.5, Immature Gran % (Auto) 0.500, Neut % (Auto) 71.4 H, Lymph % (Auto) 18.7 L, [place] % (Auto) 7.7, Eos % (Auto) 1.1, Baso % (Auto) 0.6, Absolute Neuts (auto) 8.5 H, Absolute Lymphs (auto) 2.22, Nucleated RBC % 0, PT 14.3, INR 1.1, APTT 23.9 L, Sodium 139, Potassium 3.6, Chloride 104, Carbon Dioxide 23.0, Anion Gap 12, BUN 55 H, Creatinine 1.21 H, Estim Creat Clear Calc 27.70, Est GFR (MDRD) Af Amer 55 L, Est GFR (MDRD) Non-Af 45 L, BUN/Creatinine Ratio 45.5 H, G lucose 221 H, Lactic Acid 6.4 H*, Calcium 8.3 L, Iron 99, TIBC 251, Iron Saturation 39.4, Ferritin 61, Total Bilirubin 0.20, Direct Bilirubin 0.12, AST 13 L, ALT 12 L, Alkaline Phosphatase 45, Total Protein 5.7 L, Albumin 3.2, Globulin 2.5, Blood Type O NEGATIVE, Antibody Screen NEGATIVE 01/18/24 05:02: Lactic Acid 0.7 01/18/24 05:55: Lactic Acid 0.7, Phosphorus 3.1, Magnesium 1.8, TSH 1.61 01/18/24 09:52: WBC 7.4, RBC 1.96 L, Hgb 6.3 L, Hct 19.2 L, MCV 98.0, MCH 32.1 H , MCHC 32.8, RDW Std Deviation 47.6 H, RDW Coeff of Mark 13.5, Plt Count 156, MPV 9.2, Immature Gran % (Auto) 0.400, Neut % (Auto) 64.2, Lymph % (Auto) 26.3, [place] % (Auto) 8.1, Eos % (Auto) 0.5, Baso % (Auto) 0.5, Absolute Neuts (auto) 4.8, Absolute Lymphs (auto) 1.95, Nucleated RBC % 0 Micro: Microbiology 01/18/24 02:09 Stool Stool Occult Blood (KIM) - Final Occult Blood Positive Imaging Radiology Impression Abdomen/Pelvis CTA 01/18/24 01:13 IMPRESSION: No abdominal aortic aneurysm or dissection. No extravasation of contrast into the bowel lumen to indicate an active GI bleed. No findings of diverticulitis or colitis. 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 Electronically Signed: Marcelo Wilde MD at 4:07 EDT , Chest X-Ray 01/18/24 01:13 IMPRESSION: Hyperexpansion compatible with chronic obstructive pulmonary disease. Electronically Signed: Fantasma Flores MD at 3:06 EDT , Assessment & Plan Assessment/Plan (1) Acute blood loss anemia: PLAN: 83-year-old who comes in with melanotic stools and discovered to have decreased hemoglobin along with lactic acidosis. I saw her approximately 7 months ago in June 2023. She was found to be anemic down to 6.7 and received blood in the ED. Initially she corrected but then her hemoglobin dropped during her admission so she received another 2 units of blood. She had an EGD which demonstrated a duodenal stricture with a mild Schatzki's ring and a nonbleeding duodenal ulcer. There was food still in the stomach so perfect visualization was not possible. Her discharge was delayed secondary to the fact that her hemoglobin dropped the day before discharge and then she had to receive 2 units of blood and then her hemoglobin stabilized at around 11 on the day of discharge. She had no further bleeding episodes. She is presenting like an acute upper GI bleed. She will need to undergo an upper endoscopy to evaluate upper GI tract. She was explained alternatives, risk, benefits include not withstanding bleeding, infection, sepsis, perforation, need for emergent urgent . She have an ASA of 3. (2) Acute GI bleeding: Charges/Coding Visit Charges Inpatient E&M: 58593 Init Hosp L3
--- NOTE | 2024-01-18 13:34 | OP.CCLET_ITS ---
01/18/2024 Franc Lau Md Re : Upper GI endoscopy procedure for Argenis Prajapati Dear Judi This procedure was performed on December. My impressions and recommendations are as follows: Impressions : - LA Grade B reflux esophagitis with no bleeding. - Oozing gastric ulcer with a visible vessel. Treated with a heater probe. - Oozing duodenal ulcers with a visible vessel. Treated with a heater probe. - No specimens collected. Recommendations : - Discharge patient to home. -Clear liquid diet today - Continue present medications. My findings are described in the full procedure note, which is enclosed. If I can be of further assistance, please feel free to contact me at . Sincerely, Rosalio Bonilla, 01/18/2024 1:33:52 PM This report has been signed electronically.
--- NOTE | 2024-01-18 13:34 | OP.EGD_ITS ---
Patient Name: Argenis Prajapati Procedure Date: 01/18/2024 12:53 PM Date of : 1940 Age: 83 Procedure: Upper GI endoscopy Indications: Melena Providers: Rosalio Bonilla DO Medicines: Monitored Anesthesia Care Patient Profile: This is an 83 year old female. Refer to note in patient chart for documentation of history and physical. Patient has symptoms of acute epigastric abdominal pain. Complications: No immediate complications. Procedure: Pre-Anesthesia Assessment: - Prior to the procedure, a History and Physical was performed, and patient medications and allergies were reviewed. The risks and benefits of the procedure and the sedation options and risks were discussed with the patient. All questions were answered and informed consent was obtained. Patient identification and proposed procedure were verified by the physician in the pre-procedure area. Mental Status Examination: alert and oriented. Airway Examination: normal oropharyngeal airway and neck mobility. Respiratory Examination: clear to auscultation. CV Examination: normal. Prophylactic Antibiotics: The patient does not require prophylactic antibiotics. Prior Anticoagulants: The patient has taken no anticoagulant or antiplatelet agents. ASA Grade Assessment: IV - A patient with severe systemic disease that is a constant threat to life. After reviewing the risks and benefits, the patient was deemed in satisfactory condition to undergo the procedure. The anesthesia plan was to use monitored anesthesia care (MAC). Immediately prior to administration of medications, the patient was re-assessed for adequacy to receive sedatives. The heart rate, respiratory rate, oxygen saturations, blood pressure, adequacy of pulmonary ventilation, and response to care were monitored throughout the procedure. The physical status of the patient was re-assessed after the procedure. After obtaining informed consent, the endoscope was passed under direct vision. Throughout the procedure, the patient's blood pressure, pulse, and oxygen saturations were monitored continuously. The Endoscope was introduced through the mouth, and advanced to the second part of duodenum. The pediatric colonoscope was introduced through the and advanced to the. The upper GI endoscopy was accomplished with ease. The patient tolerated the procedure well. Scope In: 1:10:03 PM Scope Out: 1:27:30 PM Total Procedure Duration Time 0 hours 17 minutes 27 seconds Findings: LA Grade B (one or more mucosal breaks greater than 5 mm, not extending between the tops of two mucosal folds) esophagitis with no bleeding was found 36 to 40 cm from the incisors. One oozing cratered gastric ulcer with a visible vessel was found in the gastric fundus. The lesion was 5 mm in largest dimension. Coagulation for hemostasis using heater probe was successful. Estimated blood loss was minimal. Three oozing cratered duodenal ulcers with a visible vessel were found in the duodenal bulb, in the first portion of the duodenum and in the second portion of the duodenum. The largest lesion was 6 mm in largest dimension. Coagulation for hemostasis using heater probe was successful. Estimated blood loss was minimal. Impression: - LA Grade B reflux esophagitis with no bleeding. - Oozing gastric ulcer with a visible vessel. Treated with a heater probe. - Oozing duodenal ulcers with a visible vessel. Treated with a heater probe. - No specimens collected. Recommendation: - Discharge patient to home. -Clear liquid diet today - Continue present medications. Procedure Code(s): --- Professional --- 46689, Esophagogastroduodenoscopy, flexible, transoral; with control of bleeding, any method CPT copyright 2021 [employer]. All rights reserved. The codes documented in this report are preliminary and upon staying machine operator review may be revised to meet current compliance requirements. Rosalio Bonilla DO 01/18/2024 1:33:52 PM This report has been signed electronically. Number of Addenda: 0 Note Initiated On: 01/18/2024 12:53 PM
--- NOTE | 2024-01-18 13:38 | PCM.POST.ANE ---
Anesthesia: Postop Eval I Current Vital Signs Temperature: 97.5 F Pulse Rate: 79 Blood Pressure: 109/97 Respiratory Rate: 16 Pulse Ox: 100 Oxygen Delivery Method: Room Air Assessment Airway patent: Yes Spontaneous unlabored respirations: Yes Mental status: Awake and Calm nausea: No Vomiting: No Anesthesia Complication: No Fluid Hydration Crystalloid volume administer (ml): 400 Total IV fluid infused: 400 Progress Note Anesthesia document: Postop Eval 1 completed: Yes
[2024-01-18 15:08] LABS: Bacteria 0 SEEN /hpf (None Seen); Mucous, Urine 0 SEEN /hpf (<or=2+); Red Blood Cells-Urine 0 SEEN /hpf (0-5); Squamous Epithelial Cells - UA 0 SEEN /hpf (5-10); White Blood Cells 0 SEEN /hpf (0-5)
[2024-01-18 15:11] LABS: Color, Urine Yellow (Yellow); Glucose, Dipstick Normal (Normal); Ketone-Dipstick Negative (Negative); Leukocyte Esterase-Dipstick Negative /ul (Negative); Nitrite-Dipstick Negative (Negative); Occult Blood-Urine 10 /ul (Negative); Protein-Dipstick Negative (Negative); Specific Gravity, Urine 1.015 (1.002-1.030); Urine Bilirubin Dipstick Negative (Negative); Urine Clarity Clear (Clear); Urine Urobilinogen Normal (Normal)
--- NOTE | 2024-01-18 15:13 | NURSING ---
Patient left floor to go to EGD at 1205. This nurse accompanied patient and gave verbal report to nurse in preop.
--- NOTE | 2024-01-18 15:15 | NURSING ---
Patient transported back to ICU floor from PACU at 1433. No issues following anesthesia.
[2024-01-18] MEDS: Acetaminophen/Butalbital/Caffe 1 Tablet PO (16:53)
[2024-01-18 20:30] LABS: Hematocrit 29.2 % (37-47); Hemoglobin 9.5 g/dL (12.0-15.0)
[2024-01-18] MEDS: Rizatriptan Benzoate 5 MG Tablet PO (21:11)
[2024-01-18] MEDS: Pantoprazole Sodium 40 MG in 0.9% Normal Saline (100mL MB+) 100 ML 330 MG IV (21:56)
--- NOTE | 2024-01-18 22:48 | NURSING ---
Pt transported to PCU room 107 via bed accompanied by RN. Pt reconnected to iv and telemetry.
[2024-01-19] VITALS (7 sets, daily range): BP systolic 110–139; BP diastolic 52–67; PULSE 70–86; RESP 16–20; TEMP 36.5–37.2; O2SAT 96–98
[2024-01-19 06:33] LABS: Absolute Lymphocyte Count 1.73 X10^3/uL (0.83-4.51); Absolute Neutrophil Count 5.2 X10^3/uL (2.0-7.7); Basophil# 0.05 X10^3/uL; Basophil% 0.6 % (0-1); Eosinophil# 0.39 X10^3/uL; Eosinophils% 4.8 % (0-5); Hematocrit 27.7 % (37-47); Hemoglobin 9.2 g/dL (12.0-15.0); Lymphocyte # 1.73 X10^3/ul (0.83-4.51); Lymphocyte % 21.4 % (19-41); Mean Corp Hgb Conc 33.2 g/dL (32-36); Mean Corpuscular Hgb 31.2 pg (27.0-32.0); Mean Corpuscular Volume 93.9 fL (81-99); Mean Platelet Vol. 9.4 fl (6.2-12.0); Monocyte# 0.67 X10^3/uL; Monocyte% 8.3 % (0-10); NRBC Flagged by Analyzer 0 % (0-5); Neutrophil % 64.5 % (47-70); Platelet Count 137 K/mm3 (150-450); RBC Distribution Width CV 15.3 % (11.6-14.6); RBC Distribution Width SD 52.5 fl (35.1-43.9); Red Blood Count 2.95 M/mm3 (4.2-5.4); White Blood Count 8.1 K/mm3 (4.4-11.0)
[2024-01-19 07:01] LABS: Anion Gap 4 (5-15); BUN 18 mg/dL (7-18); Calcium,Total 8.2 mg/dL (8.5-10.1); Chloride 112 mmol/L (98-107); Creatinine, Serum 0.64 mg/dL (0.55-1.02); EST Glomerular Filtration Rate 93 mL/min (>60); Est Glom Filt Rate - Afr Amer 113 mL/min (>60); Glucose 91 mg/dL (74-106); Potassium 3.9 mmol/L (3.5-5.1); Sodium Level 140 mmol/L (136-145)
[2024-01-19] MEDS: Albuterol 2.5 MG/3 ML VIAL.NEB. INHALATION ×2 (07:10→13:26)
[2024-01-19] MEDS: Budesonide Respules 0.5 MG/2 ML AMPUL.NEB. INHALATION (07:10)
[2024-01-19] MEDS: Acetaminophen/Butalbital/Caffe 1 Tablet PO (09:02)
[2024-01-19] MEDS: Pantoprazole Sodium 40 MG in 0.9% Normal Saline (100mL MB+) 100 ML 330 MG IV (09:03)
--- NOTE | 2024-01-19 11:10 | PCM.POSTANE2 ---
Anesthesia Postop Eval I Sum Postop Eval Completion status Anesthesia document: Postop Eval 1 completed: Yes Anesthesia Postop Eval I Summary Anesthesia Postop Eval I Summary: Anesthesia Postop Eval I: Assessment Summary Airway patent Yes 01/18/24 13:39 [email or web address] Spontaneous unlabored Yes 01/18/24 13:39 [email or web address] respirations Mental status Awake,Calm 01/18/24 13:39 [email or web address] nausea No 01/18/24 13:39 [email or web address] Vomiting No 01/18/24 13:39 [email or web address] Anesthesia Postop Eval I: Fluid Summary Crystalloid volume administer 400 01/18/24 13:39 [email or web address] (ml) Colloids volume administered ( ml) Blood Product volume administered (ml) Total IV fluid infused 400 01/18/24 13:39 [email or web address] Anesthesia Postop Eval I: Summary Notes Anesthesia Complication No 01/18/24 13:39 [email or web address] Anesthesia Complication Comment: Post-operative progress note Anesthesia: Postop Eval II Evaluation Mental status: Awake and Calm Pain Level: 1 nausea: No Vomiting: No Complications Anesthesia Complication: No
[2024-01-19 12:06] LABS: Hemoglobin 9.4 g/dL (12.0-15.0)
--- NOTE | 2024-01-19 14:10 | DCINST_ITS ---
Discharge Instructions Diet Discharge Diet: No restrictions Activity Discharge Activity: Return to Normal Activity Dressing / Incision Call your doctor if you observe: Fever of 101 or Higher, Shortness of breath, Dizziness, Fainting spells, Swelling in the ankles, Chest pain and Increased palpitations (irregular heartbeat) Follow Up Care Test Results: Test results from this visit will be discussed in further detail at your follow- up appointment, if applicable. Discharge Plan Admission Admit Date/Time: 01/18/24 04:48 Attending Provider: Casa Jain Primary Care Provider: Franc Lau Consulting Providers: Nilesh Gaona Instructions Additional Instructions / Restrictions: F/u with your PCP in 3-5 days to repeat your CBC to monitor your anemia. On discharge you hgb was 9.4 Discharge Orders/Prescriptions Prescriptions: New sucralfate 1 gram Tablet 1 g PO 1HR_ACHS 30 Days Qty: 90 1RF pantoprazole 40 mg Tablet,Delayed Release (Dr/Ec) 40 mg PO BID 30 Days Qty: 60 1RF Continued ondansetron 4 mg tablet,disintegrating 8 mg PO Q8H PRN (Reason: nausea and vomiting) budesonide-formoterol 160-4.5 mcg/actuation Hfa Aerosol Inhaler 2 puff INHALATION BID hydrocodone-acetaminophen 5-325 mg tablet 1 tab PO Q8H Arthritis Pain Compound 2 click topical BID Qty: 0 0RF fluoxetine 40 mg capsule 20 mg PO DAILY cranberry extract [Cranberry Concentrate] 500 mg capsule 500 mg PO DAILY Rx Instructions: administer with a meal zuPOO capsule 1 - 2 cap PO DAILY sumatriptan succinate 50 mg tablet 50 mg PO BID PRN PRN (Reason: headache) Discontinued pantoprazole [Protonix] 40 mg tablet,delayed release (DR/EC) 20 mg PO DAILY Referrals / Follow Up: Franc Lau MD [Primary Care Provider] - Within 1 Week FriendRosalio DO [Med Staff - Active Staff] - Within 1 Month Disposition Disposition (needs filled in before D/C Order can be placed): Home, Self Care
--- NOTE | 2024-01-19 14:18 | DS.PCM_ITS ---
Providers Date of Admission: 01/18/24 Primary Care Physician: Franc Lau MD Consultations 01/18/24 06:22 Consult: Gastroenterology Routine Consulting Provider: [facility] Reason for Consult: GIB EMERGENT Consult: No MD Notified: Yes Date Notified: 01/18/24 Time Notified: 06:22 Method of Notification: Verbal Reason For Visit: MELANOTIC STOOL WITH RECURRENT UGIB LIKELY DUE TO Diagnosis Discharge Diagnosis (1) Acute blood loss anemia: Status: Acute Code(s): D62 - Acute posthemorrhagic anemia (2) Acute GI bleeding: Status: Acute Code(s): K92.2 - Gastrointestinal hemorrhage, unspecified Medications at Discharge Home Medications budesonide-formoterol HFA 160 mcg-4.5 mcg/actuation aerosol inhaler 2 puff inhalation BID breathing 05/01/21 albuterol sulfate 90 mcg/actuation aerosol inhaler 2 puff inhalation Q4H PRN 06/06/23 ondansetron 4 mg disintegrating tablet 8 mg PO Q8H PRN nausea and vomiting 06/06/23 oxybutynin chloride 10 mg tablet,extended release 24 hr 10 mg PO DAILY 06/06/23 vit B complex 100 combo no.2 100 mg tablet,extended release (B-100 Complex ER) tab PO 06/06/23 hydrocodone-acetaminophen 5-325mg 5mg-325mg 1 tab PO Q8H pain 06/21/23 Arthritis Pain Compound 2 click topical BID ##0 06/26/23 cranberry extract 500 mg capsule (Cranberry Concentrate) 500 mg PO DAILY UTI Prevention 01/18/24 fluoxetine 40 mg capsule 20 mg PO DAILY Depression 01/18/24 sumatriptan succinate 50 mg tablet 50 mg PO BID PRN PRN headache 01/18/24 zuPOO 1 - 2 cap PO DAILY Constipation 01/18/24 pantoprazole 40 mg tablet,delayed release 40 mg PO BID 30 days #60 tabs 01/19/24 sucralfate 1 gram tablet 1 g PO 1HR_ACHS 30 days #90 tabs 01/19/24 Hospital Course Operations None Procedures EGD Summary of Care Provided Minutes Spent on Discharge: 33 Hospital Course: Per HPI: SANDIE HO, is a 83 F with a past medical history of essential hypertension, history of tobacco abuse; with subsequent COPD, history of DVT; not currently on anticoagulation, history of neoplasm of kidney, history of Right Occipital Neuralgia; with Chronic Headaches followed by Dr. 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 Bonilla of gastroenterology and recent UGIB; with unremarkable EGD performed at [facility] ~1 month ago with patient still FULL CODE who presents to [facility] ER complaining of melanotic stools, hypotension, generalized weakness and headache. Ms. Ho reports her symptoms began approximately one hour prior to arrival when she had a large, black bowel movement with melanotic stools. She also admits to severe generalized fatigue and mild abdominal discomfort and SOB with nausea but she denies associated vomiting. She states her symptoms are similar to her recent UGIB. She denies related fever, chills, chest pain, cough, palpitations or diaphoresis but she does admit to severe headache and she also states she is not sure if her Protonix and Carafate were stopped by her doctor or if she just ran out of them. In the ER she was diagnosed with melanotic stools likely due to UGIB from PUD; evidenced by BUN of 55 mg/dL and serum creatinine of 1.21 mg/dL present on admission suspected to be due at least in part to an Adverse Drug Reaction to Fluoxetine as SSRI's work to increase serotonin levels by blocking signalling between platelets thereby increasing potential bleeding risk in addition to failing to take Protonix and Carafate causing ABLA with hemoglobin of 8.6 g/dL present on admission complicated by additional laboratory evidence of Lactic Acidosis of 6.4 mmol/L present on admission with corresponding Hypotension and Generalized Weakness suggestive of early hemorrhagic shock with an acute recurrence of her chronic occipital headache and she was then admitted to the ICU for ongoing care for a stay that is expected to extend beyond 2 midnights. Hospital Course: 1. Acute blood loss anemia secondary to GI bleed/GERD?83-year-old female presented to the hospital with anemia. She was found to be anemic down to 6.3 and received 2u of PRBC, her hgb initially was 8.6 in the ED. She had an EGD which demonstrated grade B reflux esophagitis and well as gastric and duodenal ulcers with visible vessels that were treated with heater probe. After transfusion her hgb corrected to 9.5, this morning she was 9.2 and then at lunch was 9.4. She had no further bleeding episodes and I discussed with her and family the plan for discharge today and they expressed understanding of the risk and benefits of going home and would like to go home today. Will have her follow-up with her PCP as an outpatient to obtain a CBC to monitor her anemia and will also discharge her on a prescription of Protonix 40 mg PO BID as well as carafate. I do recommend that she follow-up with gastroenterology within a month for further evaluation. She can take excedrin for headache as long as it does not contain aspirin. She has a mobility limitiation that cannot be sufficiently resolved by using a cane or walker. Use of a wheelchair will improve the participation of ADLs on a regular basis at home. 2. Anxiety, depression, migraines are chronic medical conditions which complicate her care. Her home medications were continued where appropriate. Physical Exam Const alert, oriented x3 and no apparent distress General Appearance: cooperative HEENT normocephalic Mouth: dry mucous membranes Eyes PERRL, EOMs intact bilaterally and conjunctivae normal Neck supple and no JVD Resp normal respiratory effort, no retractions, no use of accessory muscles and clear to auscultation bilaterally Auscultation: Negative for crackles, rales, rhonchi or wheezes Cardio regular rate, regular rhythm, S1 normal heart sound, S2 normal heart sound and no murmurs GI soft to palpation, non-tender and non-distended; Negative for hepatosplenomegaly Extremity no clubbing, cyanosis or edema Skin no rashes or lesions noted Neuro no focal motor deficits and no sensory deficits noted Psych affect normal Appearance: appropriate Weight / BMI Weight Weight: 106 lb 14.787 oz Body Mass Index (BMI) 17.8 ABG / Lab / Microbiology Data 01/19/24 11:58 01/19/24 05:22 Laboratory: Laboratory Results - last 24 hr 01/18/24 01:38: Crossmatch See Detail 01/18/24 09:52: Glycated Hemoglobin Cancelled, Hemoglobin A1c Cancelled 01/18/24 14:55: Urine Color Yellow, Urine Clarity Clear, Urine pH 6.0, Ur Specific [place] 1.015, Urine Protein Negative, Urine Glucose (UA) Normal, Urine Ketones Negative, Urine Occult Blood 10 H, Urine Nitrite Negative, Urine Bilirubin Negative, Urine Urobilinogen Normal, Ur Leukocyte Esterase Negative, Urine RBC 0 SEEN, Urine WBC 0 SEEN, Ur Squamous Epith Cells 0 SEEN, Urine Bacteria 0 SEEN, Urine Mucus 0 SEEN 01/18/24 20:15: Hgb 9.5 L, Hct 29.2 L 01/19/24 05:22: WBC 8.1, RBC 2.95 L, Hgb 9.2 L, Hct 27.7 L, MCV 93.9, MCH 31.2, MCHC 33.2, RDW Std Deviation 52.5 H, RDW Coeff of Mark 15.3 H, Plt Count 137 L, MPV 9.4, Immature Gran % (Auto) 0.400, Neut % (Auto) 64.5, Lymph % (Auto) 21.4, [place] % (Auto) 8.3, Eos % (Auto) 4.8, Baso % (Auto) 0.6, Absolute Neuts (auto) 5.2, Absolute Lymphs (auto) 1.73, Nucleated RBC % 0, Sodium 140, Potassium 3.9, Chloride 112 H, Carbon Dioxide 24.0, Anion Gap 4 L, BUN 18, Creatinine 0.64, Estim Creat Clear Calc 40.80, Est GFR (MDRD) Af Amer 113, Est GFR (MDRD) Non-Af 93, BUN/Creatinine Ratio 28.0 H, Glucose 91, Calcium 8.2 L 01/19/24 11:58: Hgb 9.4 L, Hct 29.0 L Microbiology: Microbiology 01/18/24 02:09 Stool Stool Occult Blood (KIM) - Final Occult Blood Positive D/C Instructions Discharge Diet: No restrictions Call your doctor if you observe: Fever of 101 or Higher, Shortness of breath, Dizziness, Fainting spells, Swelling in the ankles, Chest pain and Increased palpitations (irregular heartbeat) Meaningful Use Info Meaningful Use Meaningful Use Diagnoses (Choose all that apply): None applicable Ischemic Stroke Statin Dosing Therapy Reference: STATIN DOSE THERAPY REFERENCE: * Patients > 75 years receive moderate or high dose statin therapy. * Patients 75 years or YOUNGER should receive HIGH intensity statin dose unless contraindicated. You will be required to document reason for non-treatment if statin daily dose does not meet guidelines. HIGH DOSE STATIN THERAPY DAILY Atorvastatin > than or = to 40 mg Rosuvastatin > than or = to 20 mg Amlodipine + Atorvastatin > than or = to 2.5/40 mg Ezetimibe + Simvastatin 10/80 mg Simvastatin 80mg Discharge Plan Admission Admit Date/Time: 01/18/24 04:48 Attending Provider: Casa Jain Primary Care Provider: Franc Lau Consulting Providers: Nilesh Gaona Instructions Additional Instructions / Restrictions: F/u with your PCP in 3-5 days to repeat your CBC to monitor your anemia. On discharge you hgb was 9.4 Discharge Orders/Prescriptions Prescriptions: New sucralfate 1 gram Tablet 1 g PO 1HR_ACHS 30 Days Qty: 90 1RF pantoprazole 40 mg Tablet,Delayed Release (Dr/Ec) 40 mg PO BID 30 Days Qty: 60 1RF Continued ondansetron 4 mg tablet,disintegrating 8 mg PO Q8H PRN (Reason: nausea and vomiting) budesonide-formoterol 160-4.5 mcg/actuation Hfa Aerosol Inhaler 2 puff INHALATION BID hydrocodone-acetaminophen 5-325 mg tablet 1 tab PO Q8H Arthritis Pain Compound 2 click topical BID Qty: 0 0RF fluoxetine 40 mg capsule 20 mg PO DAILY cranberry extract [Cranberry Concentrate] 500 mg capsule 500 mg PO DAILY Rx Instructions: administer with a meal zuPOO capsule 1 - 2 cap PO DAILY sumatriptan succinate 50 mg tablet 50 mg PO BID PRN PRN (Reason: headache) Discontinued pantoprazole [Protonix] 40 mg tablet,delayed release (DR/EC) 20 mg PO DAILY Referrals / Follow Up: Franc Lau MD [Primary Care Provider] - Within 1 Week Rosalio Bonilla DO [Med Staff - Active Staff] - Within 1 Month Disposition Disposition (needs filled in before D/C Order can be placed): Home, Self Care Charges/Coding Visit Charges Inpatient E&M: 98819 Disch Hosp >30min
--- NOTE | 2024-01-19 14:36 | CASEMGMT ---
Patient has order for discharge. RN CM called [facility] regarding wheelchair delivery and discharge. Jocy from [facility] to deliver wheelchair to room. RN CM in to update patient, daughter at bedside. Daughter inquired about cost, RN CM explained wheelchair would be billed to insurance but not sure if there will be a copay. Patient voiced understand and denied further needs at discharge. Patient and daughter had no further questions or concerns.
--- NOTE | 2024-01-19 14:53 | PHA.DC.MC.R ---
Pharmacy [facility] has performed discharge medication reconciliation and counseling for this patient. The patient's discharge medication list was reviewed for discrepancies and discrepancies were resolved. The patient was counseled on the following discharge medications and changes in medications for homegoing were reviewed. The Reason for Use, instructions for use, and potential side effects were reviewed for all new medications. The patient's questions regarding all of their medications were answered. 1. Pantoprazole 40 mg PO BID 2. Sucralfate 1 gram PO 4x/day The patient was able to verbally demonstrate an understanding of their discharge medications. The patient was counselled on new medications by pharmacy coordinator Roel. Medications at Discharge Home Medications budesonide-formoterol HFA 160 mcg-4.5 mcg/actuation aerosol inhaler 2 puff inhalation BID breathing 05/01/21 albuterol sulfate 90 mcg/actuation aerosol inhaler 2 puff inhalation Q4H PRN 06/06/23 ondansetron 4 mg disintegrating tablet 8 mg PO Q8H PRN nausea and vomiting 06/06/23 oxybutynin chloride 10 mg tablet,extended release 24 hr 10 mg PO DAILY 06/06/23 vit B complex 100 combo no.2 100 mg tablet,extended release (B-100 Complex ER) tab PO 06/06/23 hydrocodone-acetaminophen 5-325mg 5mg-325mg 1 tab PO Q8H pain 06/21/23 Arthritis Pain Compound 2 click topical BID ##0 06/26/23 cranberry extract 500 mg capsule (Cranberry Concentrate) 500 mg PO DAILY UTI Prevention 01/18/24 fluoxetine 40 mg capsule 20 mg PO DAILY Depression 01/18/24 sumatriptan succinate 50 mg tablet 50 mg PO BID PRN PRN headache 01/18/24 zuPOO 1 - 2 cap PO DAILY Constipation 01/18/24 pantoprazole 40 mg tablet,delayed release 40 mg PO BID 30 days #60 tabs 01/19/24 sucralfate 1 gram tablet 1 g PO 1HR_ACHS 30 days #90 tabs 01/19/24
[2024-01-19] MEDS: 0.9% Saline Lock 10 ML Syringe IV (15:44)
[2024-01-19] MEDS: Sucralfate 1 GM Tablet PO (15:44)
--- NOTE | 2024-01-19 16:41 | PN.GI_ITS ---
Subjective Subjective Patient underwent upper endoscopy yesterday for upper GI bleed. Patient underwent an upper endoscopy yesterday for an upper GI bleed she has not had any more signs and symptoms of bleeding. This is a second major from [facility]. Objective Data Objective Data Vital Signs: Vital Signs Temp Pulse Resp BP Pulse Ox O2 Del Method 97.7 F L 70 17 139/52 H 98 Room Air 01/19/24 15:45 01/19/24 15:45 01/19/24 15:45 01/19/24 15:45 01/19/24 15:45 01/19/24 15:45 Oxygen Delivery Method Room Air Weight: 106 lb 14.787 oz Body Mass Index (BMI) 17.8 Intake & Output: Intake and Output for Last 24 Hours 01/17/24 01/18/24 01/19/24 23:59 23:59 23:59 Intake Total 2688.67 / 2938.67 1378.33 / 1378.33 Output Total 900 / 1100 200 / 200 Balance 1788.67 / 1838.67 1178.33 / 1178.33 Lab / Micro Data 01/19/24 11:58 01/19/24 05:22 Labs: Laboratory Results - last 24 hr 01/18/24 01:38: Crossmatch See Detail 01/18/24 09:52: Glycated Hemoglobin Cancelled, Hemoglobin A1c Cancelled 01/18/24 20:15: Hgb 9.5 L, Hct 29.2 L 01/19/24 05:22: WBC 8.1, RBC 2.95 L, Hgb 9.2 L, Hct 27.7 L, MCV 93.9, MCH 31.2, MCHC 33.2, RDW Std Deviation 52.5 H, RDW Coeff of Mark 15.3 H, Plt Count 137 L, MPV 9.4, Immature Gran % (Auto) 0.400, Neut % (Auto) 64.5, Lymph % (Auto) 21.4, [place] % (Auto) 8.3, Eos % (Auto) 4.8, Baso % (Auto) 0.6, Absolute Neuts (auto) 5.2, Absolute Lymphs (auto) 1.73, Nucleated RBC % 0, Sodium 140, Potassium 3.9, Chloride 112 H, Carbon Dioxide 24.0, Anion Gap 4 L, BUN 18, Creatinine 0.64, Estim Creat Clear Calc 40.80, Est GFR (MDRD) Af Amer 113, Est GFR (MDRD) Non-Af 93, BUN/Creatinine Ratio 28.0 H, Glucose 91, Calcium 8.2 L 01/19/24 11:58: Hgb 9.4 L, Hct 29.0 L Micro: Microbiology 01/18/24 02:09 Stool Stool Occult Blood (KIM) - Final Occult Blood Positive Physical Exam Const alert, oriented x3 and no apparent distress General Appearance: cooperative HEENT normocephalic Mouth: dry mucous membranes Eyes PERRL, EOMs intact bilaterally and conjunctivae normal Neck supple and no JVD Resp normal respiratory effort, no retractions, no use of accessory muscles and clear to auscultation bilaterally Auscultation: Negative for crackles, rales, rhonchi or wheezes Cardio regular rate, regular rhythm, S1 normal heart sound, S2 normal heart sound and no murmurs GI soft to palpation, non-tender and non-distended; Negative for hepatosplenomegaly Extremity no clubbing, cyanosis or edema Skin no rashes or lesions noted Neuro no focal motor deficits and no sensory deficits noted Psych affect normal Appearance: appropriate Assessment & Plan Assessment/Plan (1) Acute blood loss anemia: PLAN: 83-year-old who comes in with melanotic stools and discovered to have decreased hemoglobin along with lactic acidosis. I saw her approximately 7 months ago in June 2023. She was found to be anemic down to 6.7 and received blood in the ED. Initially she corrected but then her hemoglobin dropped during her admission so she received another 2 units of blood. She had an EGD which demonstrated a duodenal stricture with a mild Schatzki's ring and a nonbleeding duodenal ulcer. There was food still in the stomach so perfect visualization was not possible. Her discharge was delayed secondary to the fact that her hemoglobin dropped the day before discharge and then she had to receive 2 units of blood and then her hemoglobin stabilized at around 11 on the day of discharge. She had no further bleeding episodes. She had an EGD which demonstrated grade B reflux esophagitis and well as gastric and duodenal ulcers with visible vessels that were treated with heater probe. After transfusion her hgb corrected to 9.5, this morning she was 9.2 and then at lunch was 9.4. She had no further bleeding episodes and I discussed with her and family the plan for discharge today and they expressed understanding of the risk and benefits of going home and would like to go home today. Will have her follow-up with her PCP as an outpatient to obtain a CBC to monitor her anemia and will also discharge her on a prescription of Protonix 40 mg PO BID as well as carafate. I do recommend that she follow-up with gastroenterology within a month for further evaluation. She can take excedrin for headache as long as it does not contain aspirin. (2) Acute GI bleeding: Charges/Coding Visit Charges Inpatient E&M: 16511 Subs Hosp L3
[2024-01-22 12:08] LABS: Vitamin D 1,25-Dihydroxy 79.3 pg/mL (24.8-81.5)
== END 2024-01-19 17:15 | disposition home or self-care (01) | DRG 378 ==
LOC: ED 04:57 → ICU 05:09 → PCU 22:34
PROVIDERS: Internal Medicine Gastroenterology; Admitting Provider Internal Medicine; Emergency Provider Emergency Medicine; PCP Family Medicine; Visit Provider Family Medicine
PROC: 0DJ08ZZ Inspection of Upper Intestinal Tract, Via Natural or Artificial Opening Endoscopic (ICD-10-PCS; CPT 43235; principal; 2024-01-18 11:55)
DX: K25.4 Chronic or unspecified gastric ulcer with hemorrhage (principal); E87.21 Acute metabolic acidosis; D62 Acute posthemorrhagic anemia; J44.9 Chronic obstructive pulmonary disease, unspecified; I10 Essential (primary) hypertension; F32.A Depression, unspecified; F41.9 Anxiety disorder, unspecified; K21.00 Gastro-esophageal reflux disease with esophagitis, without bleeding; M54.81 Occipital neuralgia; K26.4 Chronic or unspecified duodenal ulcer with hemorrhage; G89.29 Other chronic pain; T43.225A Adverse effect of selective serotonin reuptake inhibitors, initial encounter; Z79.51 Long term (current) use of inhaled steroids; Z79.891 Long term (current) use of opiate analgesic; Z79.899 Other long term (current) drug therapy; Z86.718 Personal history of other venous thrombosis and embolism; Z87.891 Personal history of nicotine dependence
CPT/HCPCS: 36415; 71045; 74174; 80048; 80076; 81001; 82274; 82652; 82728; 83036; 83540; 83550; 83605; 83735; 84100; 84443; 85014; 85018; 85025; 85610; 85730; 86850; 86900; 86901; 86920; 93005; 94640; 97162; 97166; 97802; 99283; J7030; J7040; J7050; P9016; Q9967; A4216; J2405; J3490

== ENCOUNTER → 2024-02-08 | Outpatient (CLI) | payer MEDICARE, SELFPAY ==
[2024-02-08 12:05] LABS: Absolute Lymphocyte Count 1.27 X10^3/uL (0.83-4.51); Absolute Neutrophil Count 1.8 X10^3/uL (2.0-7.7); Basophil# 0.03 X10^3/uL; Basophil% 0.8 % (0-1); Eosinophil# 0.43 X10^3/uL; Eosinophils% 10.9 % (0-5); Hematocrit 35.3 % (37-47); Hemoglobin 10.9 g/dL (12.0-15.0); Lymphocyte # 1.27 X10^3/ul (0.83-4.51); Lymphocyte % 32.2 % (19-41); Mean Corp Hgb Conc 30.9 g/dL (32-36); Mean Corpuscular Hgb 30.8 pg (27.0-32.0); Mean Corpuscular Volume 99.7 fL (81-99); Mean Platelet Vol. 8.9 fl (6.2-12.0); Monocyte# 0.44 X10^3/uL; Monocyte% 11.2 % (0-10); NRBC Flagged by Analyzer 0 % (0-5); Neutrophil # 1.76 X10^3/uL (2.7-7.7); Neutrophil % 44.6 % (47-70); Platelet Count 248 K/mm3 (150-450); RBC Distribution Width SD 51.7 fl (35.1-43.9); Red Blood Count 3.54 M/mm3 (4.2-5.4); White Blood Count 3.9 K/mm3 (4.4-11.0)
== END | disposition home or self-care (01) ==
LOC: MFPLAB 10:39
PROVIDERS: PCP Family Medicine; Visit Provider Family Medicine
DX: D64.9 Anemia, unspecified (principal)
CPT/HCPCS: 36415; 85025

== ENCOUNTER 2024-03-13 14:00 | Outpatient (RCR) | payer MEDICARE, SELFPAY | END 2024-03-13 19:00 | disposition home or self-care (01) | LOC: PT 14:00 | PROVIDERS: PCP Family Medicine; Referring Provider Family Medicine; Visit Provider Family Medicine | DX: M54.9 Dorsalgia, unspecified (principal) | CPT/HCPCS: 97110; 97162 ==

== ENCOUNTER → 2024-03-21 | Outpatient (CLI) | payer MEDICARE, SELFPAY | END | disposition home or self-care (01) | LOC: MFPLAB 16:11 | PROVIDERS: PCP Family Medicine; Visit Provider Family Medicine | DX: N39.0 Urinary tract infection, site not specified (principal) | CPT/HCPCS: 87077; 87086; 87088; 87186 ==

== ENCOUNTER → 2024-04-12 | Outpatient (CLI) | payer MEDICARE, SELFPAY ==
[2024-04-12 17:58] LABS: Absolute Lymphocyte Count 1.84 X10^3/uL (0.83-4.51); Basophil# 0.06 X10^3/uL; Basophil% 0.9 % (0-1); Eosinophil# 0.35 X10^3/uL; Hematocrit 39.1 % (37-47); Lymphocyte # 1.84 X10^3/ul (0.83-4.51); Lymphocyte % 26.2 % (19-41); Mean Corp Hgb Conc 30.7 g/dL (32-36); Mean Corpuscular Hgb 29.8 pg (27.0-32.0); Mean Platelet Vol. 9.2 fl (6.2-12.0); Monocyte# 0.75 X10^3/uL; Monocyte% 10.7 % (0-10); NRBC Flagged by Analyzer 0 % (0-5); Neutrophil % 56.8 % (47-70); Platelet Count 310 K/mm3 (150-450); RBC Distribution Width SD 46.6 fl (35.1-43.9); Red Blood Count 4.03 M/mm3 (4.2-5.4)
[2024-04-12 18:25] LABS: ALB/GLOB Ratio 1.2 RATIO (0.9-2.4); AST(SGOT) 12 U/L (15-37); Alanine Aminotransfer ALT/SGPT 12 U/L (13-56); Albumin, Serum 3.6 g/dL (3.2-5.0); Alkaline Phosphatase 74 U/L (45-117); Anion Gap 5 (5-15); BUN 18 mg/dL (7-18); Calcium,Total 9.2 mg/dL (8.5-10.1); Chloride 104 mmol/L (98-107); EST Glomerular Filtration Rate 64 mL/min (>60); Est Glom Filt Rate - Afr Amer 77 mL/min (>60); Glucose 99 mg/dL (74-106); Potassium 3.9 mmol/L (3.5-5.1); Protein, Total 6.6 g/dL (6.4-8.2); Sodium Level 139 mmol/L (136-145)
== END | disposition home or self-care (01) ==
LOC: MTLAB 16:23
PROVIDERS: PCP Family Medicine; Referring Provider Nurse Practitioner Family; Visit Provider Nurse Practitioner Family
DX: R00.2 Palpitations (principal)
CPT/HCPCS: 36415; 80053; 83735; 84443; 85025

== ENCOUNTER → 2024-04-22 | Outpatient (CLI) | payer MEDICARE, SELFPAY ==
--- NOTE | 2024-04-22 13:50 | ECHOD_ITS ---
Reason For Study: Cardiomegaly Procedure This was a 2D Doppler, Color Flow transthoracic echocardiogram. Exam performed in department. Left Ventricle Normal LV size. The left ventricular ejection fraction is 35 %. There is moderate to severe global hypokinesis of the left ventricle. Right Ventricle Normal RV size. Normal systolic function. Atria Normal left atrium. Normal right atrium. Mitral Valve Mild diffuse mitral valve thickening. Mild-Moderate (1-2+) eccentric mitral valve insufficiency. Tricuspid Valve Normal tricuspid valve. Mild (1+) tricuspid valve insufficiency. Pulmonary artery systolic pressure is 32 mmHg. Aortic Valve Trisinus/trileaflet aortic valve. Pulmonic Valve Normal pulmonic valve. Mild (1+) pulmonic valve insufficiency. Great Vessels Mildly dilated aortic root. The pulmonary artery is normal size. Inferior vena cava collapse with respiration. Pericardium/Pleural No pericardial effusion. MMode/2D Measurements & Calculations LVIDd: 4.3 cm IVSd: 1.2 cm LVOT diam: 1.9 cm LVIDs: 3.6 cm LVPWd: 1.0 cm LVOT area: 2.8 cm2 RVDd: 2.9 cm FS: 15.7 % Ao root diam: 3.8 cm LAV(MOD-bp): 60.5 ml LVAd ap4: 29.1 cm2 LA dimension: 3.7 cm LAV(MOD-bp) Indexed: 39.1 ml/m2 LVLd ap4: 8.0 cm LAV(MOD-sp2): 56.5 ml EDV(MOD-sp4): 85.5 ml LAV(MOD-sp4): 55.4 ml EDV(sp4-el): 89.3 ml LVAs ap4: 20.0 cm2 LVLs ap4: 6.9 cm ESV(MOD-sp4): 49.0 ml ESV(sp4-el): 49.4 ml EF(MOD-sp4): 42.7 % EF(sp4-el): 44.7 % SV(MOD-sp4): 36.5 ml SV(sp4-el): 39.9 ml LA A4 area: 19.4 cm2 RA A4 area: 14.1 cm2 TAPSE: 2.1 cm Time Measurements MV dec time: 0.31 sec Doppler Measurements & Calculations MV E max robert: 53.9 cm/sec Lat Peak E' Robert: 6.8 cm/sec Med Peak E' Robert: 6.6 cm/sec MV A max robert: 89.5 cm/sec E/E' lat: 7.9 E/E' med: 8.1 MV E/A: 0.60 MV V2 max: 90.3 cm/sec MV P1/2t max robert: 58.9 cm/sec Ao V2 max: 112.9 cm/sec MV max P.3 mmHg MV P1/2t: 101.3 msec Ao max P.1 mmHg MV V2 mean: 45.2 cm/sec Ao V2 mean: 81.4 cm/sec MV mean P.00 mmHg MV dec slope: 170.4 cm/sec2 Ao mean P.0 mmHg MV V2 VTI: 26.6 cm MVA(P1/2t): 2.2 cm2 Ao V2 VTI: 26.0 cm AV (velocity ratio): 0.70 MVA(VTI): 1.9 cm2 SHANEKA(I,D): 1.9 cm2 SHANEKA(V,D): 2.0 cm2 LV V1 max: 81.6 cm/sec SV(LVOT): 50.4 ml PA V2 max: 75.6 cm/sec LV V1 max P.7 mmHg PA max PG (full): 0.97 mmHg LV V1 mean P.5 mmHg LV V1 mean: 58.3 cm/sec LV V1 VTI: 18.2 cm PI end-d robert: 108.5 cm/sec TR max robert: 270.8 cm/sec TR max P.3 mmHg ECHO/Echo Complete Interpretation Summary The left ventricular ejection fraction is 35 %. Normal LV size. There is moderate to severe global hypokinesis of the left ventricle. Mild-Moderate (1-2+) eccentric mitral valve insufficiency. Compared to previous study, the left ventricular systolic function has worsened .. Ordering Physician: Parisa Watson Referring Physician: Parisa Watson Performed By: Griffin Quintana and Student
== END | disposition home or self-care (01) ==
LOC: CVS 13:50
PROVIDERS: PCP Family Medicine; Referring Provider Nurse Practitioner Family; Visit Provider Nurse Practitioner Family
DX: I51.7 Cardiomegaly (principal)
CPT/HCPCS: 93306

== ENCOUNTER → 2024-05-07 | Outpatient (CLI) | payer MEDICARE, SELFPAY ==
--- NOTE | 2024-05-07 14:28 | BD_ITS ---
STUDY: DUAL ENERGY X-RAY ABSORPTIOMETRY / DXA REASON FOR EXAM: Female, 83 years old. M810 TECHNIQUE: Bone Mineral Density (BMD) measurements of lumbar spine and left forearm were obtained. COMPARISON: None. FINDINGS: Lumbar Spine (L1-L4): g/cm2 (1.054) / T-score (0.1) / Z-score (2.9) Findings are suggestive of normal bone density with a low fracture risk. Left Forearm: g/cm2 (0.286) / T-score (-5.4) / Z-score (minus 2.) BD/Dexa Bone Density Study IMPRESSION: The patient is considered osteoporotic as outlined below according to World Jorge L Organization (WHO) criteria with a high fracture risk. Reference Information: The T-score is the number of standard deviations above or below the standard which is normal for young adults at their peak bone mineral density. The World Health Organization (WHO) interprets the T-scores as follows: Above -1 Normal bone density Between -1 and -2.5 Osteopenia Equal to / or below -2.5 Osteoporosis As a practical clinical guideline, osteopenia may be graded as follows: Mild -1 through -1.5 Moderate -1.6 through -2.0 Severe -2.1 through -2.4 The Z-score is the number of standard deviations above or below age-matched controls. A Z-score of less than -1.5 would be considered abnormal. References: 1. NIH Osteoporosis and Related Bone Diseases www osteo.org 2. International Society for Clinical Densitometry www iscd.org 3. National Osteoporosis Foundation www nof.org Electronically Signed: Lasha Powell MD at 14:55 EST ,
== END | disposition home or self-care (01) ==
LOC: OPBD 14:18
PROVIDERS: PCP Family Medicine; Referring Provider Nurse Practitioner Family; Visit Provider Nurse Practitioner Family
DX: M81.0 Age-related osteoporosis without current pathological fracture (principal)
CPT/HCPCS: 77080

== ENCOUNTER → 2024-05-08 | Outpatient (CLI) | payer MEDICARE, SELFPAY ==
[2024-05-08 16:39] LABS: Absolute Lymphocyte Count 1.68 X10^3/uL (0.83-4.51); Absolute Neutrophil Count 2.6 X10^3/uL (2.0-7.7); Basophil# 0.05 X10^3/uL; Basophil% 0.9 % (0-1); Eosinophil# 0.43 X10^3/uL; Eosinophils% 7.9 % (0-5); Hematocrit 37.5 % (37-47); Hemoglobin 11.9 g/dL (12.0-15.0); Lymphocyte # 1.68 X10^3/ul (0.83-4.51); Mean Corp Hgb Conc 31.7 g/dL (32-36); Mean Corpuscular Hgb 29.6 pg (27.0-32.0); Mean Corpuscular Volume 93.3 fL (81-99); Mean Platelet Vol. 9.4 fl (6.2-12.0); Monocyte# 0.61 X10^3/uL; Monocyte% 11.3 % (0-10); NRBC Flagged by Analyzer 0 % (0-5); Neutrophil # 2.64 X10^3/uL (2.7-7.7); Neutrophil % 48.7 % (47-70); Platelet Count 247 K/mm3 (150-450); RBC Distribution Width CV 13.2 % (11.6-14.6); RBC Distribution Width SD 45.1 fl (35.1-43.9); Red Blood Count 4.02 M/mm3 (4.2-5.4); White Blood Count 5.4 K/mm3 (4.4-11.0)
== END | disposition home or self-care (01) ==
LOC: LAB 15:43
PROVIDERS: PCP Family Medicine; Referring Provider Student in an Organized Health Care Education/Training Program; Visit Provider Student in an Organized Health Care Education/Training Program
DX: D64.9 Anemia, unspecified (principal)
CPT/HCPCS: 36415; 85025

== ENCOUNTER 2024-05-21 03:09 | Emergency (ER) | payer MEDICARE, SELFPAY ==
[2024-05-21 03:10] VITALS: BP 134/110; PULSE 58; RESP 18; TEMP 36.3; O2SAT 97; BMI 19.8
--- NOTE | 2024-05-21 03:37 | EDS_ITS ---
HPI History of Present Illness Chief Complaint: Chest Pain [facility] Medical History (Updated 05/21/24 @ 06:[address] Jean Morales, DO) B12 deficiency Depressive disorder Mild cognitive impairment Essential (primary) hypertension CAD (coronary artery disease) Left ventricular hypertrophy Osteoporosis OAB (overactive bladder) Palpitations Fatigue GERD (gastroesophageal reflux disease) Dysphagia COPD (chronic obstructive pulmonary disease) Chronic ischemic colitis Chest pain Dyspnea DVT (deep venous thrombosis) Spondylosis Back pain Osteoarthritis Neoplasm of kidney Vitamin D deficiency Iron deficiency anemia Occipital neuralgia of right side Major depressive disorder Chronic headaches Home Medications ?Medication ?Instructions ?Recorded ?Last Taken ?Type budesonide-formoterol HFA 160 2 puff inhalation BID breathing 05/01/21 Unknown History mcg-4.5 mcg/actuation aerosol inhaler albuterol sulfate 90 mcg/actuation 2 puff inhalation Q4H PRN 06/06/23 Unknown History aerosol inhaler ondansetron 4 mg disintegrating 8 mg PO Q8H PRN nausea and vomiting 06/06/23 Unknown History tablet oxybutynin chloride 10 mg 10 mg PO DAILY 06/06/23 Unknown History tablet,extended release 24 hr vit B complex 100 combo no.2 100 tab PO 06/06/23 Unknown History mg tablet,extended release (B-100 Complex ER) hydrocodone-acetaminophen 5-325mg 1 tab PO Q8H pain 06/21/23 Unknown History 5mg-325mg Arthritis Pain Compound 2 click topical BID ##0 06/26/23 Unknown Rx cranberry extract 500 mg capsule 500 mg PO DAILY UTI Prevention 01/18/24 Unknown History (Cranberry Concentrate) fluoxetine 40 mg capsule 20 mg PO DAILY Depression 01/18/24 Unknown History sumatriptan succinate 50 mg tablet 50 mg PO BID PRN PRN headache 01/18/24 Unknown History zuPOO 1 - 2 cap PO DAILY Constipation 01/18/24 01/17/24 History pantoprazole 40 mg tablet,delayed 40 mg PO BID 30 days #60 tabs 01/19/24 Unknown Rx release sucralfate 1 gram tablet 1 g PO 1HR_ACHS 30 days #90 tabs 01/19/24 Unknown Rx aspirin 81 mg tablet,delayed 81 mg PO QDAY 05/06/24 Unknown History release (Adult Aspirin Regimen) atorvastatin 20 mg tablet 20 mg PO QDAY 05/06/24 Unknown History duloxetine 20 mg capsule,delayed 20 mg PO DAILY 05/06/24 Unknown History release metoprolol succinate 50 mg 50 mg PO QDAY 05/06/24 Unknown History tablet,extended release 24 hr nortriptyline 25 mg capsule 25 mg PO QHS 05/06/24 Unknown History Allergy/AdvReac Type Severity Reaction Status Date / Time No Known Allergies Allergy Verified 05/21/24 03:10 Family History Father CAD (coronary artery disease) CABG x 5 Skin cancer Brother Diabetes CAD (coronary artery disease) age 59 Skin cancer Mother Skin cancer Surgical History History of left heart catheterization (~2002) History of bilateral knee replacement History of open reduction and internal fixation (ORIF) procedure History of right hip replacement Social History household members: none Smoking Status: Former smoker alcohol intake: current alcohol intake frequency: a few times a week substance use type: does not use EXAM Physical Exam Const Vital Signs: 05/21/24 03:10 05/21/24 03:14 05/21/24 03:42 Temperature 97.4 F L Temperature Source Oral Pulse Rate 58 L Respiratory Rate 18 Respiratory Effort Normal Blood Pressure 134/110 H Blood Pressure Mean 118 Pulse Ox 97 Oxygen Delivery Method Room Air Room Air 05/21/24 04:09 05/21/24 05:00 05/21/24 06:00 Temperature Temperature Source Pulse Rate 63 63 61 Respiratory Rate 16 16 16 Respiratory Effort Blood Pressure 115/54 L 113/73 112/89 H Blood Pressure Mean 74 86 96 Pulse Ox 95 98 97 Oxygen Delivery Method Room Air Room Air Room Air MDM MDM MDM Narrative Medical decision making narrative: HISTORY OF PRESENT ILLNESS: 84-year-old female presents via EMS after having chest pain for 4 hours. No she took 2 aspirin some relief. Notes history of CT in the past. She further states she had pain in the left rib margin. It was not pleuritic. It was described as sharp. It is not associated with food. It did not cause syncope, shortness of breath, diaphoresis. Denies cough fever chills. The patient denies recent surgery in the last 4 weeks or immobilization in the last 3 days, denies previous diagnosis of PE, hemoptysis, unilateral leg swelling or malignancy with treatment the last 6 months or palliative. No estrogen use noted. Patient denies sudden onset of pain, no tearing sensation, no migratory symptoms, no new numbness, weakness or loss of sensation. Patient denies family history or personal history of Connective tissue disorders (Marfan's Syndrome, Reny Danlos etc) REVIEW OF SYSTEMS: Pertinent positives: Chest pain Pertinent negatives: Syncope, shortness of breath, cough PHYSICAL EXAM: Nursing triage notes reviewed, Vital signs reviewed Constitutional: please see mdm HENT: MMM Eyes: Pupils equal round and reactive to light, Extraocular muscles intact Neck: No stridor, no JVD, full neck ROM Lungs: Clear to auscultation, No wheezing or rales. No increased work of breathing, no conversational dyspnea, no accessory muscle use, no nasal flaring. No respiratory distress noted Heart: Regular rate and rhythm, No murmurs, No rubs and No gallops, 2+ distal pulses (radial, femoral, posterior tibial) in all extremities Abdomen: Soft, there is no tenderness, rigidity, rebound or guarding, no obvious peritoneal signs, no palpable pulsatile abdominal masses, no auscultated abdominal bruit : No CVAT Extremities: No edema Neuro: No focal neurological deficits, cranial nerves II through XII intact, 5/5 strength in all extremities. Intact sensation to light touch in all extremities, 2+ reflexes bilateral patella tendons. Normal gait. No ataxia. Skin: No rash or lesions noted MEDICAL DECISION MAKING: Chief Complaint: Chest pain External records reviewed: Reviewed prior echocardiogram from 2023 showed ejection fraction 35% Factors affecting care: CAD, palpitations, DVT, COPD Social determinants of health: none History obtained from others: none Consults: none [facility] Narrative: The patient was initially hemodynamically stable, afebrile and nontoxic- appearing. Exam without focal cardiopulmonary abnormalities. I considered the following differential diagnosis: ACS, pneumonia, pneumothorax, PE, aortic dissection I obtained a broad lab and imaging workup to further elucidate the etiology of the patient's complaints. ALL IMAGES (IF OBTAINED) HAVE BEEN PERSONALLY REVIEWED AND INTERPRETED BY MYSELF. EKG with normal sinus rhythm, normal axis, normal intervals, no STEMI. Similar to prior EKG from January 2024 High-sensitivity troponin is negative, no evidence of myocardial ischemia x 2 I have personally reviewed the patient's chest x-ray. Chest x-ray is unremarkable for pulmonary edema, pneumothorax, pneumonia or focal cardiopulmonary abnormality. CBC with no leukocytosis, noted mild anemia, no thrombocytopenia D-dimer negative making VTE and dissection less likely BMP without evidence of significant electrolyte abnormalities, no anion gap, no acute kidney injury. The synthesis of the patient's history, physical exam, labs images suggest no acute life or limb threatening etiology. ACS ruled out based on our high- sensitivity troponin protocol and as such of low risk for ACS. Should appropriate discharge home with close outpatient cardiology follow-up. The patient and/or family, caregivers express understanding. The patient and/or family, caregivers agrees with the plan. Shared decision making: I will have a discussion with the patient and or visitors regarding risk/benefits of further testing or admission. They will be made aware of of the risk/benefits inherent in this decision they will be given the opportunity to voice understanding. Total critical care time today provided was at least 0 minutes. This excludes separately billable procedures. Critical care time (if documented) is secondary to the patient having high probability of clinically significant/life threatening deterioration in the patient's condition which required my urgent intervention. Impression: 1. Chest pain 2. History of CAD 3. History of COPD Dispo: Discharge home This note was generated with [employer] dictation software. It may contain incorrect words, spelling, and punctuation that were not noted in review of the chart prior to signing. Lab Data Labs: Laboratory Results - last 24 hr 05/21/24 05/21/24 03:35 06:05 WBC 7.1 RBC 3.56 L Hgb 10.9 L Hct 33.5 L MCV 94.1 MCH 30.6 MCHC 32.5 RDW Std Deviation 45.9 H RDW Coeff of Mark 13.2 Plt Count 202 MPV 9.4 Immature Gran % (Auto) 0.400 Neut % (Auto) 46.6 L Lymph % (Auto) 34.2 [place] % (Auto) 10.0 Eos % (Auto) 8.0 H Baso % (Auto) 0.8 Absolute Neuts (auto) 3.3 Absolute Lymphs (auto) 2.44 Nucleated RBC % 0 D-Dimer Quant (PE/DVT) 0.47 Sodium 140 Potassium 3.7 Chloride 109 H Carbon Dioxide 29.0 Anion Gap 2 L BUN 23 H Creatinine 0.74 Estim Creat Clear Calc 44.79 Est GFR (MDRD) Af Amer 95 Est GFR (MDRD) Non-Af 79 BUN/Creatinine Ratio 30.9 H Glucose 109 H Calcium 9.4 Troponin I High Sens 17 18 Radiography Diagnostic Testing: Clinical Impression(s) from Imaging Studies Chest X-Ray 05/21/24 03:58 IMPRESSION: No significant interval change or acute process. Electronically Signed: Marcelo Wilde MD at 4:49 EST , Discharge Plan Triage Chief Complaint: Chest Pain ED Provider: Jean Morales Dx/Rx/DC Orders Clinical Impression: Chest pain Instructions: ED Chest Pain, Uncertain Cause Prescriptions: No Action ondansetron 4 mg tablet,disintegrating 8 mg PO Q8H PRN (Reason: nausea and vomiting) oxybutynin chloride 10 mg tablet extended release 24hr 10 mg PO DAILY albuterol sulfate 90 mcg/actuation HFA aerosol inhaler 2 puff inhalation Q4H PRN B-100 Complex 100 mg tablet extended release PO metoprolol succinate 50 mg tablet extended release 24 hr 50 mg PO QDAY nortriptyline 25 mg capsule 25 mg PO QHS duloxetine 20 mg capsule,delayed release(DR/EC) 20 mg PO DAILY atorvastatin 20 mg tablet 20 mg PO QDAY aspirin [Adult Aspirin Regimen] 81 mg tablet,delayed release (DR/EC) 81 mg PO QDAY budesonide-formoterol 160-4.5 mcg/actuation Hfa Aerosol Inhaler 2 puff INHALATION BID hydrocodone-acetaminophen 5-325 mg tablet 1 tab PO Q8H Arthritis Pain Compound 2 click topical BID Qty: 0 0RF fluoxetine 40 mg capsule 20 mg PO DAILY cranberry extract [Cranberry Concentrate] 500 mg capsule 500 mg PO DAILY Rx Instructions: administer with a meal zuPOO capsule 1 - 2 cap PO DAILY sumatriptan succinate 50 mg tablet 50 mg PO BID PRN PRN (Reason: headache) sucralfate 1 gram Tablet 1 g PO 1HR_ACHS 30 Days Qty: 90 1RF pantoprazole 40 mg Tablet,Delayed Release (Dr/Ec) 40 mg PO BID 30 Days Qty: 60 1RF Primary Care Provider: Franc Lau Referrals: Ashish Rojas MD [Med Staff - Active Staff] - Activity Restrictions/Additional Instructions: Thank you for trusting us with your care today! Your labs images were reassuring. Specifically no signs of damage to your heart. Please take Tylenol (2 pills, 650 mg), ibuprofen (2 pills, 400 mg) every 6 hours as needed for pain and fever control. Please return to the emergency department if your symptoms change or worsen. Please follow with Cardiology for further outpatient evaluation and management. Print Language: Divehi Disposition Disposition: Home, Self Care
--- NOTE | 2024-05-21 03:45 | EKG12_ITS ---
Test Reason : CP Blood Pressure : */* mmHG Vent. Rate : 60 BPM Atrial Rate : 60 BPM P-R Int : 176 ms QRS Dur : 96 ms QT Int : 412 ms P-R-T Axes : 0 38 138 degrees QTcB Int : 412 ms Normal sinus rhythm with sinus arrhythmia Left ventricular hypertrophy with repolarization abnormality ( Sokolow-Jacob ) Abnormal ECG Confirmed by FROYLAN MCKEON, KADI ([id number]), news editor DAVID CERON ([id number]) on 05/21/2024 1:54:57 PM Referred By: Confirmed By: KADI GALEANO MD
[2024-05-21 03:49] LABS: Absolute Lymphocyte Count 2.44 X10^3/uL (0.83-4.51); Absolute Neutrophil Count 3.3 X10^3/uL (2.0-7.7); Basophil# 0.06 X10^3/uL; Basophil% 0.8 % (0-1); Eosinophil# 0.57 X10^3/uL; Hematocrit 33.5 % (37-47); Hemoglobin 10.9 g/dL (12.0-15.0); Lymphocyte # 2.44 X10^3/ul (0.83-4.51); Lymphocyte % 34.2 % (19-41); Mean Corp Hgb Conc 32.5 g/dL (32-36); Mean Corpuscular Hgb 30.6 pg (27.0-32.0); Mean Corpuscular Volume 94.1 fL (81-99); Mean Platelet Vol. 9.4 fl (6.2-12.0); Monocyte# 0.71 X10^3/uL; NRBC Flagged by Analyzer 0 % (0-5); Neutrophil # 3.32 X10^3/uL (2.7-7.7); Neutrophil % 46.6 % (47-70); Platelet Count 202 K/mm3 (150-450); RBC Distribution Width CV 13.2 % (11.6-14.6); RBC Distribution Width SD 45.9 fl (35.1-43.9); Red Blood Count 3.56 M/mm3 (4.2-5.4); White Blood Count 7.1 K/mm3 (4.4-11.0)
--- NOTE | 2024-05-21 03:58 | RAD_ITS ---
EXAM: XR CHEST, 1 VIEW CLINICAL INDICATION: chest pain TECHNIQUE: Frontal view of the chest. COMPARISON: Previous chest radiographs of 01/18/2024 and 06/23/2023. FINDINGS: LUNGS AND PLEURAL SPACES: Stable biapical pleural scarring, right greater than left. No consolidation or edema. No pneumothorax. No effusion. HEART: Unremarkable. Cardiac silhouette not enlarged. Normal pulmonary vasculature. MEDIASTINUM: Stable elongation and calcification of the thoracic aorta. Trachea is midline. BONES/JOINTS: Osseous structures are demineralized. Chronic lower thoracic compression fractures. Chronic lumbar dextroscoliosis. No acute osseous abnormality. SOFT TISSUES: Unremarkable. RAD/Chest 1 View (Portable) IMPRESSION: No significant interval change or acute process. Electronically Signed: Marcelo Wilde MD at 4:49 EST ,
[2024-05-21 04:01] LABS: D-Dimer Quantitative (DVT/PE) 0.47 FEU/ug/m (0.27-0.49)
[2024-05-21 04:08] LABS: Anion Gap 2 (5-15); BUN 23 mg/dL (7-18); BUN/Creat Ratio 30.9 RATIO (10-20); Calcium,Total 9.4 mg/dL (8.5-10.1); Chloride 109 mmol/L (98-107); Creatinine, Serum 0.74 mg/dL (0.55-1.02); EST Glomerular Filtration Rate 79 mL/min (>60); Est Glom Filt Rate - Afr Amer 95 mL/min (>60); Estimated Creatinine Clearance 44.79 ml/min; Glucose 109 mg/dL (74-106); Potassium 3.7 mmol/L (3.5-5.1); Sodium Level 140 mmol/L (136-145); Troponin-I HS (w/2H Reflex) 17 pg/mL (3.0-54.0)
[2024-05-21 04:09] VITALS: BP 115/54; PULSE 63; RESP 16; O2SAT 95
[2024-05-21 05:00] VITALS: BP 113/73; PULSE 63; RESP 16; O2SAT 98
[2024-05-21 05:45] LABS: Reflex Troponin-HS? (from REC) Y
[2024-05-21 06:00] VITALS: BP 112/89; PULSE 61; RESP 16; O2SAT 97
[2024-05-21 06:35] LABS: Troponin-I HS 18 pg/mL (3.0-54.0)
[2024-05-21 07:00] VITALS: BP 143/91; PULSE 64; RESP 16; O2SAT 93
[2024-05-21 07:04] VITALS: BP 143/91; PULSE 64; RESP 16; TEMP 36.8; O2SAT 93
== END 2024-05-21 07:06 | disposition home or self-care (01) ==
PROVIDERS: Emergency Provider Emergency Medicine; PCP Family Medicine; Visit Provider Emergency Medicine
DX: R07.9 Chest pain, unspecified (principal); J44.9 Chronic obstructive pulmonary disease, unspecified; I25.10 Atherosclerotic heart disease of native coronary artery without angina pectoris; Z87.891 Personal history of nicotine dependence; Z86.718 Personal history of other venous thrombosis and embolism
CPT/HCPCS: 71045; 80048; 84484; 85025; 85379; 93005; 99285; A4216

== ENCOUNTER 2024-06-10 09:41 | Day surgery (SDC) | payer MEDICARE, SELFPAY ==
[2024-06-07 10:00] VITALS: BMI 18.9
--- NOTE | 2024-06-10 11:47 | CL.D_ITS ---
Patient Name: SANDIE HO Study Date: 06/10/2024 Performing: Ashish Rojas MD Ht: 65 inches 165.1 cm : 1940 Wt: 114 lbs 51.71 kg Age: 84 Gender: female BSA: 1.56 PROCEDURE(S) PERFORMED DC01-([id number])LHC/COR/LV CLINICAL PROFILE AND INDICATIONS Indications: Cardiomyopathy Heart Failure: None Stress/Imaging Stress/Image Study Performed: No CAD Presentations: Symptom unlikely to be ischemic. CONCLUSIONS Minimal coronary artery disease and mild LV dysfunction and severe hypertension RECOMMENDATIONS Aggressive blood pressure treatment. May recommend vascular surgeon referral DESCRIPTION OF PROCEDURE The patient arrived to the procedure lab. The risks and benefits of the procedure as well as a full description of our services here and current unavailability of surgical backup were fully explained to the patient and/or their significant other prior to the catheterization. The Timeout was completed, verifying the correct patient and procedure. The patient's procedural site was prepped and draped in the usual fashion. Local anesthetic was given subcutaneously to right radial region with Lidocaine 2%. Local anesthetic was given subcutaneously to right groin region with Lidocaine 2%. Using a modified Seldinger technique, arterial access was obtained via the right radial artery, a 6Fr sheath was inserted., arterial access was obtained via the right femoral artery, a 5Fr sheath was inserted. Left Coronary Artery selective angiography was performed in multiple views using a 5 Fr. JL4 catheter. Right Coronary Artery selective angiography was then performed in multiple views using a 5 Fr. 3DRC (Cuauhtemoc) catheter. Left Ventriculography was performed in SOTO projection using a 5 Fr. Pigtail catheter. LV to AO pullback pressures were then recorded.The arterial sheath was pulled and manual compression applied until hemostasis is achieved. 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 LEFT MAIN: Mild luminal irregularities LEFT ANTERIOR DESCENDING ARTERY: Mild luminal irregularities less than 30% CIRCUMFLEX ARTERY: Mild luminal irregularities less than 30% RIGHT CORONARY ARTERY: Mild luminal irregularities less than 30% COMPLICATIONS No Complications PROCEDURE MEDICATIONS Fentanyl 50 mcg IV Versed 0.5 mg IV Oxygen: 2 L/min via nasal cannula Heparin diluted in 23cc Heparinized saline. Patient given 10cc IA of this solution. 06/10/2024 11:22:54 SUMMARY OF HEMODYNAMIC DATA Time AIR REST ECG 10:14:59 AO 170/67 (103) SA 11:32:30 LV 171/2, 12 11:39:11 LV 162/1, 12 11:39:18 LV 148/0, 9 11:39:59 LVp 150/2, 17 11:40:03 AOp 158/58 (96) 11:40:08 Signed By Ashish Rojas MD On 06/10/2024 11:46:55 Ashish Rojas MD
== END 2024-06-10 15:36 | disposition home or self-care (01) ==
PROVIDERS: PCP Family Medicine; Referring Provider Internal Medicine Cardiovascular Disease; Visit Provider Internal Medicine Cardiovascular Disease
DX: I25.10 Atherosclerotic heart disease of native coronary artery without angina pectoris (principal); J44.9 Chronic obstructive pulmonary disease, unspecified; I10 Essential (primary) hypertension; Z79.82 Long term (current) use of aspirin; Z79.899 Other long term (current) drug therapy; Z86.718 Personal history of other venous thrombosis and embolism; Z87.891 Personal history of nicotine dependence
CPT/HCPCS: 93458; 99152; 99153; Q9967; C1769; C1894

== ENCOUNTER 2024-06-16 23:01 | Emergency (ER) | payer MEDICARE, SELFPAY ==
[2024-06-16 23:03] VITALS: BP 108/76; PULSE 73; RESP 30; TEMP 36.3; O2SAT 91; BMI 20.1
--- NOTE | 2024-06-16 23:16 | RAD_ITS ---
INDICATION: pain EXAMINATION/TECHNIQUE: X-RAY - XR Pelvis 1 or 2 Views COMPARISON: 04/21/2022. FINDINGS: PELVIC BONES: No evidence of an acute fracture. Stable chronic fracture of the left inferior pubic ramus. The sacroiliac joints are unremarkable. The pubic symphysis is not widened. HIPS: Partially visualized bilateral total hip arthroplasty hardware is stable. SOFT TISSUES: Unremarkable. RAD/Pelvis 1 or 2 Views IMPRESSION: No evidence of an acute pelvic fracture. Electronically Signed: García Vargas DO at 23:41 EST ,
--- NOTE | 2024-06-16 23:16 | RAD_ITS ---
INDICATION: pain EXAMINATION/TECHNIQUE: X-RAY - LEFT XR Knee 3 Views COMPARISON: None. FINDINGS: SOFT TISSUES: Suprapatellar effusion. BONES/JOINTS: No acute fracture. Chronic proximal fibular fracture. Total knee arthroplasty hardware is intact. No erosive changes. RAD/Knee 3 Views IMPRESSION: 1. No acute fracture or dislocation. 2. Suprapatellar effusion. Electronically Signed: García Vargas DO at 23:43 EST ,
--- NOTE | 2024-06-16 23:18 | EX.ED.DYSGE1 ---
HPI History of Present Illness Chief Complaint: Lower Extremity Injury Informant: patient, spouse/S.O. and EMS Narrative Narrative: Patient is an 84-year-old female with past medical history of COPD CAD and hypertension as well as osteoporosis. She states that her left knee has been giving her troubles for the past few weeks. She states that today she fell and injured the left knee around 4 PM. She denies striking her head any loss of consciousness or history of bleeding disorder or blood thinner use. She states she was able to get back up and was able to ambulate but it was painful to do so. Then this evening she was walking and her knee just gave out causing her to fall. After that time she states she could not get up secondary to severe pain and the inability to move her left leg. She also denies striking her head or any loss of conscious with the second fall. However this time as she cannot get up and ambulates she was brought to the ER for evaluation [facility] Medical History B12 deficiency Depressive disorder Mild cognitive impairment Essential (primary) hypertension CAD (coronary artery disease) Left ventricular hypertrophy Osteoporosis OAB (overactive bladder) Palpitations Fatigue GERD (gastroesophageal reflux disease) Dysphagia COPD (chronic obstructive pulmonary disease) Chronic ischemic colitis Chest pain Dyspnea DVT (deep venous thrombosis) Spondylosis Back pain Osteoarthritis Neoplasm of kidney Vitamin D deficiency Iron deficiency anemia Occipital neuralgia of right side Major depressive disorder Chronic headaches Home Medications ?Medication ?Instructions ?Recorded ?Last Taken ?Type budesonide-formoterol HFA 160 2 puff inhalation BID breathing 05/01/21 Unknown History mcg-4.5 mcg/actuation aerosol inhaler ondansetron 4 mg disintegrating 8 mg PO Q8H PRN nausea and vomiting 06/06/23 Unknown History tablet zuPOO 1 - 2 cap PO DAILY Constipation 01/18/24 01/17/24 History sucralfate 1 gram tablet 1 g PO 1HR_ACHS 30 days #90 tabs 01/19/24 Unknown Rx aspirin 81 mg tablet,delayed 81 mg PO QDAY 05/06/24 Unknown History release (Adult Aspirin Regimen) atorvastatin 20 mg tablet 20 mg PO QDAY 05/06/24 Unknown History duloxetine 20 mg capsule,delayed 20 mg PO DAILY 05/06/24 Unknown History release metoprolol succinate 50 mg 50 mg PO QDAY 05/06/24 Unknown History tablet,extended release 24 hr nortriptyline 25 mg capsule 25 mg PO QHS 05/06/24 Unknown History cranberry extract 500 mg capsule 50 mg PO DAILY UTI Prevention 05/22/24 Unknown History (Cranberry Concentrate) hydrocodone-acetaminophen 5-325mg 1 tab PO Q8H PRN pain 05/22/24 Unknown History 5mg-325mg pantoprazole 40 mg tablet,delayed 40 mg PO QDAY 05/22/24 Unknown History release losartan 50 mg tablet 50 mg PO QDAY #90 tabs 06/10/24 Unknown Rx gabapentin 300 mg capsule 300 mg PO TID 14 days #42 caps 06/17/24 Unknown Rx oxycodone 5 mg tablet 5 mg PO Q6H PRN pain 5 days #20 06/17/24 Unknown Rx tabs Allergy/AdvReac Type Severity Reaction Status Date / Time No Known Allergies Allergy Verified 06/16/24 23:07 Family History Father CAD (coronary artery disease) CABG x 5 Skin cancer Brother Diabetes CAD (coronary artery disease) age 59 Skin cancer Mother Skin cancer Surgical History History of left heart catheterization (~2002) History of bilateral knee replacement History of open reduction and internal fixation (ORIF) procedure History of right hip replacement Social History household members: none Smoking Status: Former smoker alcohol intake: current alcohol intake frequency: a few times a week substance use type: does not use ROS ROS ED Constitutional Constitutional ED: Denies chills or fever(s) Eyes Eyes: Denies blurry vision or change in vision ENT ENT ED: Denies sore throat Cardiovascular Cardiovascular: Reports other Details: Negative syncope ; Denies chest pain, palpitations or racing heartbeat Respiratory/Chest Respiratory/Chest: Denies cough or dyspnea Gastrointestinal Gastrointestinal: Denies abdominal pain, diarrhea, nausea or vomiting Genitourinary Genitourinary ED: Denies dysuria Musculoskeletal Musculoskeletal: Reports other Details: Positive left knee and hip/pelvis pain ; Denies back pain or neck pain Integumentary Denies Abrasions Neurologic Neurologic: Denies headache(s) or paresthesias Hematologic/Lymphatic Hematologic/Lymphatic: Denies easy bleeding or easy bruising EXAM Physical Exam Const Vital Signs: 06/16/24 23:03 06/17/24 00:24 Temperature 97.3 F L 98.1 F Temperature Source Oral Pulse Rate 73 65 Respiratory Rate 30 H 16 Blood Pressure 108/76 127/76 H Blood Pressure Mean 86 93 Pulse Ox 91 97 Oxygen Delivery Method Room Air Positive well nourished and well developed General Appearance ED: well developed; Negative for pallor HEENT HEENT Narrative: Normocephalic atraumatic Eyes PERRL and EOMs intact bilaterally General Eye ED: Negative for scleral icterus Neck supple Neck Narrative: No bony deformity or step-off of the cervical spine no midline tenderness to palpation Chest Wall palpation of chest normal Resp normal respiratory effort and clear to auscultation bilaterally Resp Narrative: Breath sounds are diminished throughout but overall clear to auscultation without signs of respiratory distress Cardio regular rate and regular rhythm Rate: other Other Details: Heart is regular rate and rhythm Radial and carotid pulses are equal and symmetric GI normal to inspection, nondistended, normoactive bowel sounds, non-tender, non-distended and no masses Auscultation: normoactive bowel sounds Palpation: soft Back/Spine Back/Spine Narrative: No bony deformity or step-off of the thoracic or lumbar spine no midline tenderness to palpation Extremity Extremity Narrative: There is soft tissue swelling and ecchymosis noted to the anterior aspect of the left knee consistent with history of fall. No obvious bony deformity. No obvious dislocation. There is an apparent defect just above the patella concerning for partial quadriceps tendon rupture. The patient cannot lift the left leg off of the bed in a straight leg manner which is also concerning for potential tendon rupture. Patient has pain with palpation in the left inguinal region as well concerning for pubic rami fracture Otherwise all compartments are soft and compressible going against compartment syndrome The patient can lift her right leg without difficulty and can move both arms difficulty as well Neuro oriented x3 and CN's II-XII intact bilaterally Sensorium / Orientation: alert Psych mental status grossly normal Skin no rashes or lesions noted Skin Narrative: Soft tissue swelling with ecchymosis to the anterior aspect of the left knee as documented above General Skin Exam: Negative for jaundice or pallor MDM MDM MDM Narrative Medical decision making narrative: Patient arrived to the ER with stable vital. To me she reported that her knee simply gave out and this was a mechanical fall and she denied any dizziness lightheadedness palpitations or syncope prior to the event. Therefore I felt no need for cardiac or syncope workup. Also she did not strike her head or have loss of consciousness nor she on a blood thinner so concern for skull fracture versus traumatic subarachnoid or subdural hemorrhage is low as well. There is concern for periprosthetic fracture versus pubic rami fracture versus quadriceps tendon. Basic blood work is obtained which shows no signs of acute blood loss anemia or clinically significant electrolyte abnormality. Her creatinine is slightly elevated and therefore should be given IV fluids but this is not high enough to correlate/classify as acute kidney injury. X-rays revealed no periprosthetic fractures or dislocation. However as she cannot straight leg raise despite having IV morphine this would indicate a partial versus complete quadriceps tendon rupture. This does correlate with her physical exam and the fact there is a small defect just above the kneecap indicating a quadriceps tendon injury. The patient was placed in a knee immobilizer for stabilization and then ambulated in the ER with a walker. She did so with a steady gait. The patient also reports she has a walker at home. Therefore at this time by exam this is a partial quadriceps tendon rupture she is closed and neurovascularly intact and can ambulate and therefore there is no need for emergent orthopedic consultation or admission and she is otherwise safe for discharge with outpatient follow-up History & Record Review Discussion w/independent historian: Patient and Significant other Lab Data Attestation: I reviewed the patient's lab results. Labs: Laboratory Results - last 24 hr 06/16/24 23:20 WBC 9.6 RBC 3.91 L Hgb 12.1 Hct 37.0 MCV 94.6 MCH 30.9 MCHC 32.7 RDW Std Deviation 45.2 H RDW Coeff of Mark 13.2 Plt Count 214 MPV 9.2 Immature Gran % (Auto) 0.500 Neut % (Auto) 56.1 Lymph % (Auto) 29.1 [place] % (Auto) 8.8 Eos % (Auto) 4.9 Baso % (Auto) 0.6 Absolute Neuts (auto) 5.4 Absolute Lymphs (auto) 2.78 Nucleated RBC % 0 Sodium 138 Potassium 4.4 Chloride 107 Carbon Dioxide 27.0 Anion Gap 5 BUN 23 H Creatinine 1.32 H Estim Creat Clear Calc 27.50 Est GFR (MDRD) Af Amer 49 L Est GFR (MDRD) Non-Af 41 L BUN/Creatinine Ratio 17.4 Glucose 117 H Calcium 9.0 Radiography Diagnostic Testing: Clinical Impression(s) from Imaging Studies Knee X-Ray 06/16/24 23:16 IMPRESSION: 1. No acute fracture or dislocation. 2. Suprapatellar effusion. Electronically Signed: García VargasDO at 23:43 EST , Pelvis X-Ray 06/16/24 23:16 IMPRESSION: No evidence of an acute pelvic fracture. Electronically Signed: García VargasDO at 23:41 EST , X-ray of the left knee as interpreted by the emergency medicine reveals no acute fracture or dislocation but there is a suprapatellar effusion consistent with her history of fall/pain X-ray of the pelvis as interpreted by emergency medicine physician reveals hardware to be intact and in place without signs of acute fracture or dislocation Discharge Plan Triage Chief Complaint: Lower Extremity Injury ED Provider: Brent Nuñez Dx/Rx/DC Orders Clinical Impression: Rupture of left quadriceps tendon, Essential (primary) hypertension, CAD (coronary artery disease), COPD (chronic obstructive pulmonary disease) Instructions: ED Quadriceps Tendon Rupture Prescriptions: New gabapentin 300 mg capsule 300 mg PO TID 14 Days Qty: 42 0RF oxycodone 5 mg tablet 5 mg PO Q6H PRN (Reason: pain) 5 Days Qty: 20 0RF No Action ondansetron 4 mg tablet,disintegrating 8 mg PO Q8H PRN (Reason: nausea and vomiting) metoprolol succinate 50 mg tablet extended release 24 hr 50 mg PO QDAY nortriptyline 25 mg capsule 25 mg PO QHS duloxetine 20 mg capsule,delayed release(DR/EC) 20 mg PO DAILY atorvastatin 20 mg tablet 20 mg PO QDAY aspirin [Adult Aspirin Regimen] 81 mg tablet,delayed release (DR/EC) 81 mg PO QDAY pantoprazole 40 mg tablet,delayed release (DR/EC) 40 mg PO QDAY budesonide-formoterol 160-4.5 mcg/actuation Hfa Aerosol Inhaler 2 puff INHALATION BID hydrocodone-acetaminophen 5-325 mg tablet 1 tab PO Q8H PRN (Reason: pain) zuPOO capsule 1 - 2 cap PO DAILY sucralfate 1 gram Tablet 1 g PO 1HR_ACHS 30 Days Qty: 90 1RF cranberry extract [Cranberry Concentrate] 500 mg capsule 50 mg PO DAILY Rx Instructions: administer with a meal losartan 50 mg tablet 50 mg PO QDAY Qty: 90 3RF Primary Care Provider: Franc Lau Referrals: Franc Lau MD [Primary Care Provider] - Casa Guerrero DO [Med Staff - Active Staff] - Activity Restrictions/Additional Instructions: Your history and exam indicate you have a partial quadriceps tendon rupture. Wear your knee immobilizer for stabilization and ambulate using your walker. Stop taking your [place] and begin taking the gabapentin and oxycodone for improved pain control. Follow-up with orthopedics to discuss further testing or treatment options and return to the ER should you have any further concern Print Language: Sami Disposition Disposition: Home, Self Care Discharge Date/Time: 06/17/24 01:00
[2024-06-16] MEDS: Morphine 4 MG/ML Syringe IV (23:23)
[2024-06-16] MEDS: Ondansetron 4 MG/2 ML Vial IV (23:23)
[2024-06-16 23:25] LABS: Absolute Lymphocyte Count 2.78 X10^3/uL (0.83-4.51); Absolute Neutrophil Count 5.4 X10^3/uL (2.0-7.7); Basophil# 0.06 X10^3/uL; Basophil% 0.6 % (0-1); Eosinophil# 0.47 X10^3/uL; Eosinophils% 4.9 % (0-5); Hemoglobin 12.1 g/dL (12.0-15.0); Lymphocyte # 2.78 X10^3/ul (0.83-4.51); Lymphocyte % 29.1 % (19-41); Mean Corp Hgb Conc 32.7 g/dL (32-36); Mean Corpuscular Hgb 30.9 pg (27.0-32.0); Mean Corpuscular Volume 94.6 fL (81-99); Mean Platelet Vol. 9.2 fl (6.2-12.0); Monocyte# 0.84 X10^3/uL; Monocyte% 8.8 % (0-10); NRBC Flagged by Analyzer 0 % (0-5); Neutrophil # 5.36 X10^3/uL (2.7-7.7); Neutrophil % 56.1 % (47-70); Platelet Count 214 K/mm3 (150-450); RBC Distribution Width CV 13.2 % (11.6-14.6); RBC Distribution Width SD 45.2 fl (35.1-43.9); Red Blood Count 3.91 M/mm3 (4.2-5.4); White Blood Count 9.6 K/mm3 (4.4-11.0)
[2024-06-16 23:39] LABS: Anion Gap 5 (5-15); BUN 23 mg/dL (7-18); BUN/Creat Ratio 17.4 RATIO (10-20); Chloride 107 mmol/L (98-107); Creatinine, Serum 1.32 mg/dL (0.55-1.02); EST Glomerular Filtration Rate 41 mL/min (>60); Est Glom Filt Rate - Afr Amer 49 mL/min (>60); Glucose 117 mg/dL (74-106); Potassium 4.4 mmol/L (3.5-5.1); Sodium Level 138 mmol/L (136-145)
[2024-06-16] MEDS: 0.9% Normal Saline (500mL Bag) 500 ML 999 ML IV (23:49)
[2024-06-17 00:24] VITALS: BP 127/76; PULSE 65; RESP 16; TEMP 36.7; O2SAT 97
[2024-06-17] MEDS: oxyCODONE 5 MG Tablet PO (00:55)
[2024-06-17] MEDS: Gabapentin 300 MG Capsule PO (00:55)
== END 2024-06-17 01:00 | disposition home or self-care (01) ==
PROVIDERS: Emergency Provider Emergency Medicine; PCP Family Medicine; Visit Provider Emergency Medicine
DX: S76.112A Strain of left quadriceps muscle, fascia and tendon, initial encounter (principal); J44.9 Chronic obstructive pulmonary disease, unspecified; I25.10 Atherosclerotic heart disease of native coronary artery without angina pectoris; I10 Essential (primary) hypertension; Z87.891 Personal history of nicotine dependence; Z86.718 Personal history of other venous thrombosis and embolism; W19.XXXA Unspecified fall, initial encounter
CPT/HCPCS: 72170; 73562; 80048; 85025; 96361; 96374; 96375; 96376; 99285; A4216; J2405

== ENCOUNTER 2024-06-17 12:46 | Observation (INO) | payer MEDICARE, SELFPAY ==
[2024-06-17] VITALS (7 sets, daily range): BP systolic 108–174; BP diastolic 39–86; PULSE 66–78; RESP 16–65; TEMP 36.4–37.1; O2SAT 93–97; BMI 20.5; BMI 19.3
--- NOTE | 2024-06-17 13:12 | EDS_ITS ---
HPI HPI - Fall History of Present Illness Chief Complaint: Fall PFSH PFSH Medical History B12 deficiency Depressive disorder Mild cognitive impairment Essential (primary) hypertension CAD (coronary artery disease) Left ventricular hypertrophy Osteoporosis OAB (overactive bladder) Palpitations Fatigue GERD (gastroesophageal reflux disease) Dysphagia COPD (chronic obstructive pulmonary disease) Chronic ischemic colitis Chest pain Dyspnea DVT (deep venous thrombosis) Spondylosis Back pain Osteoarthritis Neoplasm of kidney Vitamin D deficiency Iron deficiency anemia Occipital neuralgia of right side Major depressive disorder Chronic headaches Home Medications ?Medication ?Instructions ?Recorded ?Last Taken ?Type budesonide-formoterol HFA 160 2 puff inhalation BID breathing 05/01/21 Unknown History mcg-4.5 mcg/actuation aerosol inhaler ondansetron 4 mg disintegrating 8 mg PO Q8H PRN nausea and vomiting 06/06/23 Unknown History tablet zuPOO 1 - 2 cap PO DAILY Constipation 01/18/24 01/17/24 History sucralfate 1 gram tablet 1 g PO 1HR_ACHS 30 days #90 tabs 01/19/24 Unknown Rx aspirin 81 mg tablet,delayed 81 mg PO QDAY 05/06/24 Unknown History release (Adult Aspirin Regimen) atorvastatin 20 mg tablet 20 mg PO QDAY 05/06/24 Unknown History duloxetine 20 mg capsule,delayed 20 mg PO DAILY 05/06/24 Unknown History release metoprolol succinate 50 mg 50 mg PO QDAY 05/06/24 Unknown History tablet,extended release 24 hr nortriptyline 25 mg capsule 25 mg PO QHS 05/06/24 Unknown History cranberry extract 500 mg capsule 50 mg PO DAILY UTI Prevention 05/22/24 Unknown History (Cranberry Concentrate) hydrocodone-acetaminophen 5-325mg 1 tab PO Q8H PRN pain 05/22/24 Unknown History 5mg-325mg pantoprazole 40 mg tablet,delayed 40 mg PO QDAY 05/22/24 Unknown History release gabapentin 300 mg capsule 300 mg PO TID 14 days #42 caps 06/17/24 Unknown Rx oxycodone 5 mg tablet 5 mg PO Q6H PRN pain 5 days #20 06/17/24 Unknown Rx tabs Allergy/AdvReac Type Severity Reaction Status Date / Time No Known Allergies Allergy Verified 06/16/24 23:07 Family History Father CAD (coronary artery disease) CABG x 5 Skin cancer Brother Diabetes CAD (coronary artery disease) age 59 Skin cancer Mother Skin cancer Surgical History History of left heart catheterization (~2002) History of bilateral knee replacement History of open reduction and internal fixation (ORIF) procedure History of right hip replacement Social History household members: none Smoking Status: Former smoker alcohol intake: current alcohol intake frequency: a few times a week substance use type: does not use EXAM Physical Exam Const Vital Signs: 06/17/24 12:46 06/17/24 12:55 Temperature 98.4 F Temperature Source Oral Pulse Rate 66 Respiratory Rate 65 H Respiratory Effort Normal Blood Pressure 108/52 L Blood Pressure Mean 70 Pulse Ox 93 Oxygen Delivery Method Room Air MDM MDM MDM Narrative Medical decision making narrative: HISTORY OF PRESENT ILLNESS: 84-year female history of COPD, CAD, hypertension osteoporosis. Resents with multiple falls the last 4 days. Notes she was diagnosed with a quadriceps strain. She also endorses urinary retention. No she has not urinated for last 48 hours. Notes her left knee gave out on her today. Did not hit her head or lose consciousness. Does not complain of shoulder, chest, abdominal, arm, leg or hip pain. Just complains of pain in her left knee. REVIEW OF SYSTEMS: Pertinent positives: Fall, right leg pain Pertinent negatives: Head trauma, loss of consciousness PHYSICAL EXAM: Nursing triage notes reviewed, Vital signs reviewed Primary Survey Airway: Intact Breathing: Bilateral breath sounds Circulation: Palpable bilateral femorals, Palpable bilateral radial, Palpable bilateral DP and Palpable bilateral PT Disability / Spine precautions GCS Score: Eye Openin Verbal Response: 5 Motor Response: 6 Secondary Survey Constitutional: Please see MDM Head: Atraumatic, Midface stable, NO jaw malocclusion, No Cephalohematoma, and No Lacerations noted Eye: Pupils equal round and reactive to light, Extraocular muscles intact and No periorbital ecchymosis or stepoff, no evidence of entrapment ENT: Oropharynx clear, no lacerations, no hemotympanum, no raccoon eyes or vyas sign Cervical spine / Neck: No cervical spine bony tenderness, crepitance, or stepoff deformity Trachea midline Lungs: Clear to auscultation, No asymmetric rise and No crepitus, no flail chest Cardiac: Regular rate and rhythm and No murmurs Abdomen: Soft, Nontender and No rebound Pelvis: Pelvis stable to compression : No evidence of genital injury Back: No midline bony tenderness to thoracic/lumbar/sacral spines Neuro: At baseline, intact strength and sensation in bilateral upper and lower extremities. 2+ patellar reflexes bilaterally. Extremities: NO gross Deformities, TTP over left knee, intact quadriceps tendon complex, decreased range of motion in flexion extension. Psych: Normal affect Nursing triage notes reviewed, Vital signs reviewed MEDICAL DECISION MAKING: Chief Complaint: Fall, leg pain External records reviewed: Reviewed imaging yesterday. Reviewed labs yesterday. BUN was 23 creatinine is 1.32. Reviewed imaging: X-ray of the left knee showed no acute fracture or dislocation, pelvic x-ray was negative. Factors affecting care: as per HPI Social determinants of health elderly History obtained from others: family Consults: internal medicine MDM Narrative: The patient was initially hemodynamically stable, afebrile and nontoxic- appearing. Exam with TTP over left knee. Decreased range of motion secondary to pain. There is no obvious warmth or overlying erythema to the left knee. Compartments were soft. There is no obvious hip or pelvic TTP to suggest pelvic or hip fracture. I considered the following differential diagnosis: Periprosthetic fracture, rhabdomyolysis, UTI, acute kidney injury I obtained a broad lab and imaging workup to further elucidate etiology of the patient's complaints. Initially treat the patient pain with 2 mg of IV morphine, 15 mg of IV Toradol, 4 mg Zofran for nausea control. ALL IMAGES (IF OBTAINED) HAVE BEEN PERSONALLY REVIEWED AND INTERPRETED BY MYSELF. CBC with no leukocytosis to suggest systemic inflammation, noted baseline anemia, no thrombocytopenia BMP without significant electrolyte abnormalities, no signs of metabolic acidosis or endorgan hypoperfusion with a normal bicarb and anion gap respectively LFTs show no evidence of hepatobiliary pathology. Urinalysis shows no evidence of urinary inflammation suggestive of UTI Bladder scan showed greater than 500 cc of urine consistent with urinary retention. Yepez was placed. CT scan of the knee showed no evidence of periprosthetic fracture. Did show a chronic joint effusion. While I considered septic arthritis as a cause of patient's knee pain fact she has had 2 mechanical falls injuring her knee makes this less likely. In addition to that she did not have a fever, leukocytosis and clinically the patient's knee was not warm despite effusion. I do not suspect she is suffering from septic arthritis. After Yepez was placed patient put out approximately 1100 cc of urine The patient will require admission given her advanced age, her living situation with her elderly , has acute on chronic knee pain, has had multiple falls over the last several days. Discussed with hospitalist Dr. Reynolds who agreed admit the patient to [facility] observation. The patient and/or family, caregivers express understanding. The patient and/or family, caregivers agrees with the plan. Shared decision making: I will have a discussion with the patient and or visitors regarding risk/benefits of further testing or admission. They will be made aware of of the risk/benefits inherent in this decision they will be given the opportunity to voice understanding. Total critical care time today provided was at least 0 minutes. This excludes separately billable procedures. Critical care time (if documented) is secondary to the patient having high probability of clinically significant/life threatening deterioration in the patient's condition which required my urgent intervention. Impression: 1. Fall 2. Left knee pain 3. History of Total left knee replacement 4. Acute urinary retention [facility] This note was generated with [employer] dictation software. It may contain incorrect words, spelling, and punctuation that were not noted in review of the chart prior to signing. Discharge Plan Triage Chief Complaint: Fall ED Provider: Jean Morales Dx/Rx/DC Orders Primary Care Provider: Franc Lau
--- NOTE | 2024-06-17 13:41 | CT_ITS ---
CT LEFT LOWER EXTREMITY WITH 3-D IMAGING CLINICAL INDICATION: Left knee pain following a fall. TECHNIQUE: Axial CT images of the LEFT lower extremity was performed without IV contrast material. Coronal and sagittal reformats were provided. The protocol utilizes one or more of the following dose reduction techniques: automated exposure control, adjustment of mA and/or kV according to patient size,and/or use of iterative reconstruction technique. RADIATION DOSAGE (If Supplied By Facility): CTDIvol = ( 25.31 ) mGy, DLP = ( 779.81 ) mGycm COMPARISON: Prior study dated: June 22, 2023. FINDINGS: Bones: Once again, the patient is status post total knee replacement. There is good alignment. Limited visualization of the bony structures of the distal femur due to the metallic artifact from the prosthesis. Soft Tissues: Large joint effusion. Vascular calcifications. CT/Extremity Lower without Contra IMPRESSION: Status post total knee replacement. No fracture or dislocation is seen. Large joint effusion. This is unchanged. Electronically Signed: Lasha Powell MD at 14:34 EST ,
[2024-06-17] MEDS: Ondansetron 4 MG/2 ML Vial IV (13:48)
[2024-06-17] MEDS: Ketorolac 15 MG/ML Vial IV (13:49)
[2024-06-17] MEDS: Morphine 2 MG/ML Syringe IV (13:50)
[2024-06-17 14:05] LABS: Mucous, Urine 0 SEEN /hpf (<or=2+); Red Blood Cells-Urine 0 SEEN /hpf (0-5)
[2024-06-17 14:07] LABS: Hemoglobin 10.6 g/dL (12.0-15.0); Mean Corp Hgb Conc 32.1 g/dL (32-36); Mean Corpuscular Hgb 30.8 pg (27.0-32.0); Mean Corpuscular Volume 95.9 fL (81-99); Mean Platelet Vol. 9.3 fl (6.2-12.0); Platelet Count 198 K/mm3 (150-450); RBC Distribution Width CV 13.2 % (11.6-14.6); RBC Distribution Width SD 46.9 fl (35.1-43.9); Red Blood Count 3.44 M/mm3 (4.2-5.4); White Blood Count 7.4 K/mm3 (4.4-11.0)
[2024-06-17 14:07] LABS: Color, Urine Yellow (Yellow); Glucose, Dipstick Normal (Normal); Ketone-Dipstick Negative (Negative); Leukocyte Esterase-Dipstick 25 /ul (Negative); Nitrite-Dipstick Negative (Negative); Occult Blood-Urine Negative /ul (Negative); Protein-Dipstick 15 mg/dl (Negative); Urine Bilirubin Dipstick Negative (Negative); Urine Clarity Cloudy (Clear); Urine Urobilinogen Normal (Normal); Urine pH 6.5 (5.0 - 8.0)
[2024-06-17 14:20] LABS: Bacteria 4+ /hpf (None Seen); Squamous Epithelial Cells - UA 0-5 SEEN /hpf (5-10); White Blood Cells 5-10 SEEN /hpf (0-5)
[2024-06-17 14:24] LABS: AST(SGOT) 10 U/L (15-37); Alanine Aminotransfer ALT/SGPT 12 U/L (13-56); Alkaline Phosphatase 64 U/L (45-117); Anion Gap 4 (5-15); BUN 21 mg/dL (7-18); BUN/Creat Ratio 23.5 RATIO (10-20); Calcium,Total 8.6 mg/dL (8.5-10.1); Chloride 108 mmol/L (98-107); Creatinine, Serum 0.89 mg/dL (0.55-1.02); EST Glomerular Filtration Rate 64 mL/min (>60); Est Glom Filt Rate - Afr Amer 78 mL/min (>60); Globulin 2.9 g/dL (2.2-4.2); Glucose 113 mg/dL (74-106); Potassium 4.2 mmol/L (3.5-5.1); Protein, Total 5.9 g/dL (6.4-8.2); Sodium Level 139 mmol/L (136-145)
[2024-06-17 14:31] LABS: CPK Total, Creatine Kinase 66 U/L (26-192)
--- NOTE | 2024-06-17 15:38 | HP.PCM.HOS_ITS ---
HPI - General General Date of Admission: 06/17/24 Date of Service: 06/17/24 Chief Complaint: Left knee pain HPI Narrative SANDIE HO, is a 84-year-old female history of DVT, GERD, CAD, hypertension, COPD, anxiety who presented [facility] ED 06/17/2024 for with recurrent fall and increased pain in her leg and not urinating in 48 hours. She was seen in the ED the night prior due to her left knee giving her trouble for a couple of weeks with a fall resulting in pain on ambulation. In the ED last night x-rays with no periprosthetic fractures or dislocation but exam concerning for partial or complete quadriceps tendon rupture. She was placed in a knee immobilizer for stabilization and was able to ambulate in the ED with a walker and had a steady gait so she was discharged home for outpatient follow-up. Patient had her knee give out on her again today prompting her to come to the ED. There were also concerns that she had not urinated in [address] hours. In the ED CT of the knee redemonstrated effusion but no fracture or bony process. Lab workup overall unremarkable but patient was found to be retaining urine and had 1100 output with Yepez placement. Ultimately hospitalist contacted for admission for placement given patient's difficulty with ambulation and concern for safety if patient went home. Patient evaluated at bedside with family member present. Patient received pain medication and would quickly fall back asleep so history obtained in part from report in part from family member. History as above, additionally she has chronic back pain for which she follows with pain management and is on [place], this is significantly limited her mobility chronically. She also has difficulty with her urination and follows with urology and is set to get more Botox but has not had problems with urinary retention like this. Does have history of UTIs but does not usually feel urinary symptoms. She reports her back pain is severe and chronic but unchanged from usual. [facility] Medical History (Updated 06/17/24 @ 15:[address] Aranza Reynolds MD) Asthma B12 deficiency Back pain CAD (coronary artery disease) Chest pain Chronic headaches Chronic ischemic colitis COPD (chronic obstructive pulmonary disease) Depression Depressive disorder DVT (deep venous thrombosis) Dysphagia Dyspnea Essential (primary) hypertension Fatigue Former smoker GERD (gastroesophageal reflux disease) GI bleed Iron deficiency anemia Left ventricular hypertrophy Major depressive disorder Migraines Mild cognitive impairment Neoplasm of kidney OAB (overactive bladder) Occipital neuralgia of right side Osteoarthritis Osteoporosis Palpitations Rheumatoid arthritis Spondylosis Vitamin D deficiency Home Medications ?Medication ?Instructions ?Recorded ?Last Taken ?Type budesonide-formoterol HFA 160 2 puff inhalation BID breathing 05/01/21 Unknown History mcg-4.5 mcg/actuation aerosol inhaler ondansetron 4 mg disintegrating 8 mg PO Q8H PRN nausea and vomiting 06/06/23 Unknown History tablet zuPOO 1 - 2 cap PO DAILY Constipation 01/18/24 01/17/24 History sucralfate 1 gram tablet 1 g PO 1HR_ACHS 30 days #90 tabs 01/19/24 Unknown Rx aspirin 81 mg tablet,delayed 81 mg PO QDAY 05/06/24 Unknown History release (Adult Aspirin Regimen) atorvastatin 20 mg tablet 20 mg PO QDAY 05/06/24 Unknown History duloxetine 20 mg capsule,delayed 20 mg PO DAILY 05/06/24 Unknown History release metoprolol succinate 50 mg 50 mg PO QDAY 05/06/24 Unknown History tablet,extended release 24 hr nortriptyline 25 mg capsule 25 mg PO QHS 05/06/24 Unknown History cranberry extract 500 mg capsule 50 mg PO DAILY UTI Prevention 05/22/24 Unknown History (Cranberry Concentrate) hydrocodone-acetaminophen 5-325mg 1 tab PO Q8H PRN pain 05/22/24 Unknown History 5mg-325mg pantoprazole 40 mg tablet,delayed 40 mg PO QDAY 05/22/24 Unknown History release gabapentin 300 mg capsule 300 mg PO TID 14 days #42 caps 06/17/24 Unknown Rx oxycodone 5 mg tablet 5 mg PO Q6H PRN pain 5 days #20 06/17/24 Unknown Rx tabs Allergy/AdvReac Type Severity Reaction Status Date / Time No Known Allergies Allergy Verified 06/16/24 23:07 Family History Father CAD (coronary artery disease) CABG x 5 Skin cancer Brother Diabetes CAD (coronary artery disease) age 59 Skin cancer Mother Skin cancer Surgical History History of bilateral knee replacement History of left heart catheterization (~2002) History of open reduction and internal fixation (ORIF) procedure History of right hip replacement Social History household members: none Smoking Status: Former smoker alcohol intake: current alcohol intake frequency: a few times a week substance use type: does not use ROS ROS Narrative Patient tired and falls asleep during questioning, ROS positive for left knee pain without redness or erythema, positive for chronic back pain unchanged, difficulty urinating over the past 2 days, does have some chronic problems with chest pain with recent heart cath but reports symptoms are unchanged Vital Signs Vital Signs Vital Signs: 06/17/24 12:46 06/17/24 12:55 06/17/24 14:52 Temperature 98.4 F 98.2 F Temperature Source Oral Pulse Rate 66 78 Respiratory Rate 65 H 18 Respiratory Effort Normal Blood Pressure 108/52 L 120/55 L Blood Pressure Mean 70 76 Pulse Ox 93 97 Oxygen Delivery Method Room Air Weight Weight: 56 kg Body Mass Index (BMI) 20.5 Physical Exam Narrative General: Wakes up and answers questions but quickly falls back asleep, reports she feels a little out of it she has received pain medication HEENT: normocephalic Eyes: Anicteric, normal conjunctiva, extraocular movements grossly intact Neck: Supple Respiratory: Clear to auscultation bilaterally, normal respiratory effort Cardiovascular: Regular rate and rhythm GI: Soft, nontender, nondistended Extremities: No peripheral, left knee with some pain on palpation but not significantly so, knee is not erythematous or warm Musculoskeletal: Moving all extremities Neuro: No overt focal neurological deficits Skin: No rashes appreciated Psych: Cooperative Results Lab / Micro Data 06/17/24 13:50 06/17/24 13:50 Labs: Laboratory Results - last 24 hr 06/17/24 13:50: WBC 7.4, RBC 3.44 L, Hgb 10.6 L, Hct 33.0 L, MCV 95.9, MCH 30.8, MCHC 32.1, RDW Std Deviation 46.9 H, RDW Coeff of Mark 13.2, Plt Count 198, MPV 9.3, Sodium 139, Potassium 4.2, Chloride 108 H, Carbon Dioxide 27.0, Anion Gap 4 L, BUN 21 H, Creatinine 0.89, Estim Creat Clear Calc 41.60, Est GFR (MDRD) Af Amer 78, Est GFR (MDRD) Non-Af 64, BUN/Creatinine Ratio 23.5 H, Glucose 113 H, Calcium 8.6, Total Bilirubin 0.40, AST 10 L, ALT 12 L, Alkaline Phosphatase 64, Total Creatine Kinase 66, Total Protein 5.9 L, Albumin 3.0 L, Globulin 2.9, Albumin/Globulin Ratio 1.0 06/17/24 13:55: Urine Color Yellow, Urine Clarity Cloudy, Urine pH 6.5, Ur Specific [place] 1.010, Urine Protein 15 H, Urine Glucose (UA) Normal, Urine Ketones Negative, Urine Occult Blood Negative, Urine Nitrite Negative, Urine Bilirubin Negative, Urine Urobilinogen Normal, Ur Leukocyte Esterase 25 H, Urine RBC 0 SEEN, Urine WBC 5-10 SEEN, Ur Squamous Epith Cells 0-5 SEEN, Urine Bacteria 4+, Urine Mucus 0 SEEN Imaging Radiology Impression Lower Extremity CT 06/17/24 13:41 IMPRESSION: Status post total knee replacement. No fracture or dislocation is seen. Large joint effusion. This is unchanged. Electronically Signed: Lasha Poewll MD at 14:34 EST Reading Location ID and State: [address] [place] [address] , Service support , Assessment & Plan Assessment/Plan (1) Left knee pain: PLAN: Plan # Left knee pain -Patient with history of knee replacement 20 years ago, has left knee pain that is worse since fall with effusion but without erythema or warmth -CT redemonstrated the effusion which is likely from her fall but no fractures -Supportive care -Pain control -PT/OT -Case management # Urinary retention -Patient with 1100 cc of urine retained -Does follow with [facility] urology and gets Botox -UA with bacteria but did not necessarily appear overtly infectious however patient with difficulty telling when she has a UTI he does have a history of these -Urine culture sent but given lack of white blood cell count or vital abnormalities would be hesitant to start patient empirically on antibiotics -Can consider void trial prior to DC, if unsuccessful would likely need to follow-up with her urologist # History of COPD -Continue home inhalers #Hypertension -Continue current medications #GERD -Also history of upper GI bleed in January 2024 when EGD revealed oozing gastric ulcer and duodenal ulcer -Continue PPI -Continue sucralfate #Depression/anxiety -Continue home medications #DVT ppx: SCDs given GI bleed several months ago Aranza Reynolds MD Charges/Coding Visit Charges Inpatient E&M: 23254 Init Hosp L2
[2024-06-17] MEDS: Sucralfate 1 GM Tablet PO ×2 (17:27→21:38)
[2024-06-17] MEDS: oxyCODONE 5 MG Tablet 2.5 MG PO ×2 (19:08→23:08)
[2024-06-17] MEDS: Albuterol 2.5 MG/3 ML VIAL.NEB. INHALATION ×2 (19:09→19:15)
[2024-06-17] MEDS: Budesonide Respules 0.5 MG/2 ML AMPUL.NEB. INHALATION ×2 (19:09→19:15)
[2024-06-17] MEDS: Acetaminophen 500 MG Tablet 1000 MG PO (21:38)
[2024-06-17] MEDS: Arthritis Pain Compound 60 CLICK TUBE TOPICAL (21:38)
[2024-06-17] MEDS: Senna/Docusate Sodium 1 Tablet 2 TABLET PO (21:39)
[2024-06-17] MEDS: Nortriptyline 25 MG Capsule PO (21:39)
[2024-06-17] MEDS: Gabapentin 300 MG Capsule PO (21:43)
[2024-06-18] VITALS (9 sets, daily range): BP systolic 104–125; BP diastolic 46–74; PULSE 63–83; RESP 12–18; TEMP 36.4–37; O2SAT 94–96
[2024-06-18] MEDS: oxyCODONE 5 MG Tablet 2.5 MG PO ×2 (03:35→07:56)
[2024-06-18] MEDS: Budesonide Respules 0.5 MG/2 ML AMPUL.NEB. INHALATION (06:35)
[2024-06-18] MEDS: Albuterol 2.5 MG/3 ML VIAL.NEB. INHALATION ×2 (06:35→12:51)
[2024-06-18] MEDS: Sucralfate 1 GM Tablet PO ×4 (06:40→21:54)
[2024-06-18] MEDS: Gabapentin 300 MG Capsule PO ×3 (06:40→22:03)
[2024-06-18] MEDS: Acetaminophen 500 MG Tablet 1000 MG PO ×3 (06:41→21:54)
[2024-06-18 06:56] LABS: Absolute Lymphocyte Count 2.24 X10^3/uL (0.83-4.51); Absolute Neutrophil Count 4.2 X10^3/uL (2.0-7.7); Basophil# 0.03 X10^3/uL; Basophil% 0.4 % (0-1); Eosinophil# 0.39 X10^3/uL; Eosinophils% 5.1 % (0-5); Hematocrit 32.6 % (37-47); Hemoglobin 10.2 g/dL (12.0-15.0); Lymphocyte # 2.24 X10^3/ul (0.83-4.51); Lymphocyte % 29.2 % (19-41); Mean Corp Hgb Conc 31.3 g/dL (32-36); Mean Corpuscular Hgb 30.3 pg (27.0-32.0); Mean Corpuscular Volume 96.7 fL (81-99); Mean Platelet Vol. 9.1 fl (6.2-12.0); Monocyte# 0.82 X10^3/uL; Monocyte% 10.7 % (0-10); NRBC Flagged by Analyzer 0 % (0-5); Neutrophil # 4.16 X10^3/uL (2.7-7.7); Neutrophil % 54.2 % (47-70); Platelet Count 192 K/mm3 (150-450); RBC Distribution Width CV 13.2 % (11.6-14.6); RBC Distribution Width SD 47.3 fl (35.1-43.9); Red Blood Count 3.37 M/mm3 (4.2-5.4); White Blood Count 7.7 K/mm3 (4.4-11.0)
[2024-06-18] MEDS: Metoprolol(XL)Succ 50 MG Tablet PO (07:47)
[2024-06-18] MEDS: Pantoprazole Sodium 40 MG Tablet PO (07:47)
[2024-06-18] MEDS: Aspirin E.C. 81 MG Tablet PO (07:47)
[2024-06-18] MEDS: Arthritis Pain Compound 60 CLICK TUBE TOPICAL ×2 (07:48→22:00)
[2024-06-18] MEDS: Atorvastatin Calcium 20 MG Tablet PO (07:49)
[2024-06-18 08:00] LABS: Anion Gap 4 (5-15); BUN 18 mg/dL (7-18); Calcium,Total 8.7 mg/dL (8.5-10.1); Chloride 106 mmol/L (98-107); Creatinine, Serum 0.86 mg/dL (0.55-1.02); EST Glomerular Filtration Rate 67 mL/min (>60); Est Glom Filt Rate - Afr Amer 81 mL/min (>60); Estimated Creatinine Clearance 40.45 ml/min; Glucose 106 mg/dL (74-106); Potassium 4.4 mmol/L (3.5-5.1); Sodium Level 137 mmol/L (136-145)
[2024-06-18] MEDS: DULoxetine Hcl 20 MG Capsule PO (10:13)
[2024-06-18] MEDS: Morphine 2 MG/ML Syringe IV (10:17)
[2024-06-18] MEDS: 0.9% Saline Lock 10 ML Syringe IV (10:17)
--- NOTE | 2024-06-18 11:38 | CASEMGMT ---
Addendum entered by Evelyn Gray 06/18/24 14:32: Social WorkPriyank ZEPEDA updated pt and pt dtr on TCU acceptance and status of precert. SARAI Thompson Original Note: Social Work- KATELYN met with pt and dtr to discuss preferences at discharge. Pt reports that she would like to stay at the hospital and have a referral to TCU. No list needed at this time per pt request. Pt dtr reports that pt home floor plan is a sunken plan with numerous one step ups for different rooms of home. Pt dtr reports that it is a long distance from living spaces to bathroom and it took pt spouse over an hour to get pt from car to bedroom after ED discharge. Pt dtr states that pt recently saw PCP who ordered PT/OT due to weakness and following a bone density scan in which pt was found to have very brittle bones. Pt dtr is worried about continued falls and is seeking information and education on how to best help pt. KATELYN collaborated to have hospitalist meet with pt and family to provide education. SW completed referral to TCU. Pt accepted. Precert to be started. Plan: TCU; pend precert SARAI Thompson
--- NOTE | 2024-06-18 12:07 | PCM.PN.HOSP ---
Reason for Visit Reason for Visit: Diagnoses Pain in left knee (06/17/24) Subjective Subjective Saw patient at bedside this morning, daughter present. Patient was mildly fatigued appearing but otherwise sitting up comfortably in bed, conversing normally, in no acute distress. Denies any knee pain at rest. Worked with physical therapy this morning with knee immobilizer in place and it was noted that she could stand and ambulate about 20 feet at a time with some degree of instability. Patient does report having some knee discomfort with ambulation. Has been tolerating the Yepez catheter without issue. Denies any other new concerns this morning. Objective Data Objective Data Vital Signs: Vital Signs Temp Pulse Resp BP Pulse Ox O2 Del Method 97.9 F 78 12 124/74 H 94 Room Air 06/18/24 09:57 06/18/24 09:57 06/18/24 09:57 06/18/24 09:57 06/18/24 10:46 06/18/24 09:57 Oxygen Delivery Method Room Air Weight: 52.617 kg Body Mass Index (BMI) 19.3 Intake & Output: Intake and Output for Last 24 Hours 06/16/24 06/17/24 06/18/24 23:59 23:59 23:59 Intake Total 1050 / 1050 Output Total 200 / 200 500 / 500 Balance 850 / 850 -500 / -500 Lab / Micro Data 06/18/24 06:41 06/18/24 06:41 Labs: Laboratory Results - last 24 hr 06/17/24 13:50: WBC 7.4, RBC 3.44 L, Hgb 10.6 L, Hct 33.0 L, MCV 95.9, MCH 30.8, MCHC 32.1, RDW Std Deviation 46.9 H, RDW Coeff of Mark 13.2, Plt Count 198, MPV 9.3, Sodium 139, Potassium 4.2, Chloride 108 H, Carbon Dioxide 27.0, Anion Gap 4 L, BUN 21 H, Creatinine 0.89, Estim Creat Clear Calc 41.60, Est GFR (MDRD) Af Amer 78, Est GFR (MDRD) Non-Af 64, BUN/Creatinine Ratio 23.5 H, Glucose 113 H, Calcium 8.6, Total Bilirubin 0.40, AST 10 L, ALT 12 L, Alkaline Phosphatase 64, Total Creatine Kinase 66, Total Protein 5.9 L, Albumin 3.0 L, Globulin 2.9, Albumin/Globulin Ratio 1.0 06/17/24 13:55: Urine Color Yellow, Urine Clarity Cloudy, Urine pH 6.5, Ur Specific [place] 1.010, Urine Protein 15 H, Urine Glucose (UA) Normal, Urine Ketones Negative, Urine Occult Blood Negative, Urine Nitrite Negative, Urine Bilirubin Negative, Urine Urobilinogen Normal, Ur Leukocyte Esterase 25 H, Urine RBC 0 SEEN, Urine WBC 5-10 SEEN, Ur Squamous Epith Cells 0-5 SEEN, Urine Bacteria 4+, Urine Mucus 0 SEEN 06/18/24 06:41: WBC 7.7, RBC 3.37 L, Hgb 10.2 L, Hct 32.6 L, MCV 96.7, MCH 30.3, MCHC 31.3 L, RDW Std Deviation 47.3 H, RDW Coeff of Mark 13.2, Plt Count 192, MPV 9.1, Immature Gran % (Auto) 0.400, Neut % (Auto) 54.2, Lymph % (Auto) 29.2, [place] % (Auto) 10.7 H, Eos % (Auto) 5.1 H, Baso % (Auto) 0.4, Absolute Neuts (auto) 4.2, Absolute Lymphs (auto) 2.24, Nucleated RBC % 0, Sodium 137, Potassium 4.4, Chloride 106, Carbon Dioxide 27.0, Anion Gap 4 L, BUN 18, Creatinine 0.86, Estim Creat Clear Calc 40.45, Est GFR (MDRD) Af Amer 81, Est GFR (MDRD) Non-Af 67, BUN/Creatinine Ratio 21.0 H, Glucose 106, Calcium 8.7 Radiography Diagnostic Testing: Radiology Impression Lower Extremity CT 06/17/24 13:41 IMPRESSION: Status post total knee replacement. No fracture or dislocation is seen. Large joint effusion. This is unchanged. Electronically Signed: Lasha Powell MD at 14:34 EST , Physical Exam Const alert, oriented x3 and no apparent distress Constitutional Narrative: Elderly female, thin appearing, mildly fatigued appearing, otherwise sitting up comfortably in bed, conversing normally, no acute distress. General Appearance: cooperative and comfortable HEENT normocephalic, head/scalp atraumatic, hearing grossly normal bilaterally, nasal mucous membranes and turbinates normal and moist oral mucous membranes Eyes PERRL, EOMs intact bilaterally and conjunctivae normal Neck full ROM Chest inspection of chest normal Resp normal respiratory effort, normal air movement, no use of accessory muscles and clear to auscultation bilaterally Cardio regular rate, regular rhythm, no murmurs and peripheral pulses 2+ throughout GI normal to inspection, nondistended, normoactive bowel sounds, soft to palpation, non-tender and non-distended Back/Spine normal ROM Extremity Extremity Narrative: Left knee with no brace in place on my exam. Significant swelling noted just above the anterior knee with mild tenderness to palpation. Patient with significant difficulty and pain with any flexion at the knee attempted. Skin no rashes or lesions noted Neuro moves all extremities Sensorium / Orientation: awake and alert Speech: speech normal Psych mental status grossly normal Assessment & Plan Assessment/Plan (1) Left knee pain: (2) Rupture of left quadriceps tendon: PLAN: Plan Patient is an 84-year-old female who presented [facility] ED on 06/17/2024 with left knee pain with mechanical fall and urinary retention. 1. Left knee pain with mechanical fall, acute on chronic debility ? PT/OT/case management following. Patient with history of left knee replacement about 20 years ago. Reported worsening chronic left knee pain over the past few weeks resulting in a fall at home with significant pain and swelling of the knee. Lower extremity CT on admit showed good alignment of total knee replacement, no fracture or dislocation seen, large joint effusion noted. On exam, swelling noted but no warmth or erythema. Suspected that findings are due to either partial versus complete quadriceps tendon rupture. No need for surgical evaluation, conservative management is recommended. LLE quad tendon rupture immobilizer in place. Patient with borderline therapy scores and plan is for TCU on discharge pending insurance acceptance. Pain management with scheduled Tylenol, oxycodone as needed and IV morphine as needed. 2. Urinary retention ? Patient with history of urinary retention, has followed with Dr. Nava in the past and recently established with [facility] urology. Had a Botox injection done there about 3 weeks ago and plan was for another Botox injection on Thursday 06/21. Patient reported being unable to urinate for about 2 days prior to admission and was found to have 1100 cc of urine in the bladder in the ED. Yepez placed at that time. On discussion with patient and daughter on 06/18, patient wished to have Yepez removed for void trial in preparation for likely discharge to TCU. Will monitor closely. 3. History of GERD with upper GI bleed ? Follows with outpatient GI. Had EGD on 01/18/2024 that showed an oozing gastric ulcer and oozing duodenal ulcers that were treated with heater probe. Patient has done well since then, is on PPI daily and completed sucralfate therapy. Plan is for repeat EGD soon to confirm healing of the ulcers. Continue home PPI. 4. Underweight BMI ? BMI 19.3 on admit. Patient thin appearing on exam but not cachectic, low concern for malnutrition. However given her low weight we will add supplements to meals while inpatient. 5. History of chronic low back pain with neuropathy ? Recently followed with physical therapy for about 2 months for this back pain. On review of those notes, patient noted to PT that she had followed with pain management for about 1 year without much help. Did show some improvement with physical therapy but patient continues to report some low back pain with debility at this time. Continue home gabapentin. 6. History of LV dysfunction, hypertension, hyperlipidemia ? Follows with outpatient cardiology. Found on echo on 04/22/2024 to have an EF of 35% with moderate to severe global hypokinesis of the LV, no other significant findings. Cardiac cath on 06/11 with no coronary artery disease noted. Recommendation was for aggressive blood pressure management. Blood pressure has been stable in the 110s to 120s since admission. Continue home aspirin, statin, Toprol. 7. History of COPD ? Stable on room air, not in acute exacerbation. Continue home inhalers. 8. Depression/anxiety ? Stable. Continue home duloxetine and nortriptyline. DVT prophylaxis: SCDs (given GI bleed several months ago) CODE STATUS: DNR CCA, okay to intubate Expected disposition: Likely SNF, 1 to 2 days Total clinical time spent by myself addressing the patient's medical issues, reviewing all the data, and collaborating with patient's care team: 35 minutes. Charges/Coding Visit Charges Inpatient E&M: 88176 Subs Hosp L2
--- NOTE | 2024-06-18 13:06 | CHAPLAIN ---
Type of Pastoral Visit _x__ Initial Visit ___ Follow-up Visit ___ On-call Visit ___ General Patient Visit ___ Spiritual Assessment ___ Family Conference ___ Bereavement ___ Rapid Response ___ Code Blue ___ Other (describe below) Pastoral Care Referral From _x__ Patient ___ Family ___ Nurse ___ Physician ___ Cushion Builder ___ Sailing Officer ___ Other (describe below) Sacrament/Intervention _x__ Active listening ___ Anointing ___ Yarsani ___ Bereavement ___ Communion _x__ Cha exploration ___ ___ Life review _x__ Prayer ___ Reconciliation ___ Sacrament of Sick _x__ Supportive presence ___ Wedding ___ Other (describe below) Pastoral Comments patient is welcoming and speaks of her disappointment that this is my situation; daughter is present and interactive in the conversation; pt is talkative and expresses her cha in God and how she has to 'believe that God has something for me to learn in all of this, even if I don't like it'; pt had plans to go to [place] for the winter but accepts the change of plans is that is what God wants; pt is open to presence and prayer; listening ear and affirmation of her cha is given; daughter expresses thanks for the visit; the patient asks for another visit in the future if I stay here;
--- NOTE | 2024-06-18 15:07 | CASEMGMT ---
Met with patient to complete [employer] form. [employer] form explained to patient who voiced understanding and signed form. Original form placed in pt?s chart and copy provided to patient. Gayle Cao, Discharge Planning Asst
[2024-06-18] MEDS: Senna/Docusate Sodium 1 Tablet 2 TABLET PO (21:54)
[2024-06-18] MEDS: Nortriptyline 25 MG Capsule PO (21:55)
[2024-06-19 05:03] VITALS: BP 138/58; PULSE 59; RESP 16; TEMP 36.4; O2SAT 94
[2024-06-19] MEDS: Acetaminophen 500 MG Tablet 1000 MG PO ×2 (05:10→15:13)
[2024-06-19] MEDS: Gabapentin 300 MG Capsule PO ×2 (05:10→15:13)
[2024-06-19] MEDS: Sucralfate 1 GM Tablet PO ×3 (06:49→15:13)
--- NOTE | 2024-06-19 09:24 | CASEMGMT ---
Social Work As per Alis in TCU, pt has been approved for admission today. SW texted physician to let him know. SW spoke w/pt in room, let her know she was approved by insurance to go to TCU today and it is anticipated the physician will send her today. Pt states understanding, in agreement w/plan. SW will continue to follow for discharge to TCU later today. ALVARO Sawant
[2024-06-19 10:00] VITALS: BP 123/56; PULSE 64; RESP 14; TEMP 36.4; O2SAT 98
[2024-06-19] MEDS: Pantoprazole Sodium 40 MG Tablet PO (10:26)
[2024-06-19] MEDS: Arthritis Pain Compound 60 CLICK TUBE TOPICAL (10:26)
[2024-06-19 10:27] VITALS: PULSE 64
[2024-06-19] MEDS: Aspirin E.C. 81 MG Tablet PO (10:27)
[2024-06-19] MEDS: Atorvastatin Calcium 20 MG Tablet PO (10:27)
[2024-06-19] MEDS: Metoprolol(XL)Succ 50 MG Tablet PO (10:27)
[2024-06-19] MEDS: DULoxetine Hcl 20 MG Capsule PO (10:27)
[2024-06-19] MEDS: Senna/Docusate Sodium 1 Tablet 2 TABLET PO (10:27)
--- NOTE | 2024-06-19 12:00 | PCM.PN.HOSP ---
Reason for Visit Reason for Visit: Diagnoses Pain in left knee (06/17/24) Strain of left quadriceps muscle, fascia and tendon, initial encounter (06/17/24) Subjective Subjective Saw patient at bedside this morning, daughter present. Patient had 2 bladder scans done overnight after voiding and unfortunately had postvoid residual volume greater than 500 cc and required straight cath x 2. I was in the room when she had a third bladder scan done and she had over 400 cc in the bladder so Yepez catheter was placed. Patient otherwise denies any new concerns today. She continues to have left knee discomfort and she and daughter are hoping for more guidance on how to manage her knee moving forward. Notified them that orthopedic surgery is consulted and will be coming to see them this afternoon. Objective Data Objective Data Vital Signs: Vital Signs Temp Pulse Resp BP Pulse Ox O2 Del Method 97.6 F L 64 14 123/56 H 98 Room Air 06/19/24 10:00 06/19/24 10:27 06/19/24 10:00 06/19/24 10:00 06/19/24 10:00 06/19/24 10:00 Oxygen Delivery Method Room Air Weight: 52.617 kg Body Mass Index (BMI) 19.3 Intake & Output: Intake and Output for Last 24 Hours 06/17/24 06/18/24 06/19/24 23:59 23:59 23:59 Intake Total 1050 / 1050 Output Total 200 / 200 700 / 700 2250 / 2250 Balance 850 / 850 -700 / -700 -2250 / -2250 Lab / Micro Data 06/18/24 06:41 06/18/24 06:41 Physical Exam Const alert, oriented x3 and no apparent distress Constitutional Narrative: Elderly female, thin appearing, mildly fatigued appearing, otherwise sitting up comfortably in bed, conversing normally, no acute distress. Stable. General Appearance: cooperative and comfortable HEENT normocephalic, head/scalp atraumatic, hearing grossly normal bilaterally, nasal mucous membranes and turbinates normal and moist oral mucous membranes Eyes PERRL, EOMs intact bilaterally and conjunctivae normal Neck full ROM Chest inspection of chest normal Resp normal respiratory effort, normal air movement, no use of accessory muscles and clear to auscultation bilaterally Cardio regular rate, regular rhythm, no murmurs and peripheral pulses 2+ throughout GI normal to inspection, nondistended, normoactive bowel sounds, soft to palpation, non-tender and non-distended Back/Spine normal ROM Extremity Extremity Narrative: Left knee with brace in place. Notably had significant swelling just above the anterior knee with mild tenderness to palpation on admission, along with significant difficulty and pain with any flexion at the knee. Skin no rashes or lesions noted Neuro Sensorium / Orientation: awake and alert Speech: speech normal Psych mental status grossly normal Assessment & Plan Assessment/Plan (1) Left knee pain: (2) Rupture of left quadriceps tendon: PLAN: Plan Patient is an 84-year-old female who presented [facility] ED on 06/17/2024 with left knee pain with mechanical fall and urinary retention. 1. Left knee pain with mechanical fall, acute on chronic debility ? PT/OT/case management following. Orthopedic surgery consulted. Patient with history of left knee replacement about 20 years ago. Reported worsening chronic left knee pain over the past few weeks resulting in a fall at home with significant pain and swelling of the knee. Lower extremity CT on admit showed good alignment of total knee replacement, no fracture or dislocation seen, large joint effusion noted. On exam, swelling noted but no warmth or erythema. Suspected that findings are due to either partial versus complete quadriceps tendon rupture. Appreciate orthopedic surgery recommendations. Continue pain management with scheduled Tylenol, oxycodone as needed and IV morphine as needed. Planning for discharge to TCU once medically ready. 2. Urinary retention ? Patient with history of urinary retention, has followed with Dr. Nava in the past and recently established with [facility]. Had a Botox injection done there about 3 weeks ago and plan was for another Botox injection on Thursday 06/21. Patient reported being unable to urinate for about 2 days prior to admission and was found to have 1100 cc of urine in the bladder in the ED. Yepez placed at that time. Removed Yepez on 06/18 for void trial and unfortunately patient had greater than 400 cc of urine in the bladder after 3 consecutive void trials, so Yepez was placed again on 06/19 and patient will be discharged with Yepez in place. Will need close outpatient follow-up with urology. 3. History of GERD with upper GI bleed ? Follows with outpatient GI. Had EGD on 01/18/2024 that showed an oozing gastric ulcer and oozing duodenal ulcers that were treated with heater probe. Patient has done well since then, is on PPI daily and completed sucralfate therapy. Plan is for repeat EGD soon to confirm healing of the ulcers. Continue home PPI. 4. Underweight BMI ? BMI 19.3 on admit. Patient thin appearing on exam but not cachectic, low concern for malnutrition. However given her low weight we will add supplements to meals while inpatient. 5. History of chronic low back pain with neuropathy ? Recently followed with physical therapy for about 2 months for this back pain. On review of those notes, patient noted to PT that she had followed with pain management for about 1 year without much help. Did show some improvement with physical therapy but patient continues to report some low back pain with debility at this time. Continue home gabapentin. 6. History of LV dysfunction, hypertension, hyperlipidemia ? Follows with outpatient cardiology. Found on echo on 04/22/2024 to have an EF of 35% with moderate to severe global hypokinesis of the LV, no other significant findings. Cardiac cath on 06/11 with no coronary artery disease noted. Recommendation was for aggressive blood pressure management. Blood pressure has been stable in the 110s to 120s since admission. Continue home aspirin, statin, Toprol. 7. History of COPD ? Stable on room air, not in acute exacerbation. Continue home inhalers. 8. Depression/anxiety ? Stable. Continue home duloxetine and nortriptyline. DVT prophylaxis: SCDs (given GI bleed several months ago) CODE STATUS: DNR CCA, okay to intubate Expected disposition: SNF, 1 to 2 days Total clinical time spent by myself addressing the patient's medical issues, reviewing all the data, and collaborating with patient's care team: 35 minutes. Charges/Coding Visit Charges Inpatient E&M: 34371 Subs Hosp L2
[2024-06-19 14:00] VITALS: BP 130/56; PULSE 60; RESP 14; TEMP 36.4; O2SAT 94
--- NOTE | 2024-06-19 16:23 | CASEMGMT ---
Social Work Dr. Guerrero was to see pt prior to her going to TCU. Dr. Guerrero did come in to see pt, SW notified hospitalist. SW spoke w/pt, she is aware was waiting for Dr. Guerrero to see her so she could go to TCU. SW called pt's daughter Ro to let her know pt should be going to TCU today, and that we had been waiting for Dr. Guerrero to see pt. Ro inquired w/SW what Dr. Guerrero said, SW explained did not speak to him, will ask hospitalist to call her. SW texted Dr. Kessler, asked him to follow up w/daughter. Green sheet on chart in anticipation of discharge yet this late afternoon to TCU. ALVARO Sawant
--- NOTE | 2024-06-19 16:58 | PCM.TXEXTCAR ---
Diet Diet Order/Speech Therapy: 06/17/24 16:35 Diet: Cardiac - Heart Healthy Food consistency:: Regular Liquid Consistency:: Regular/Thin Routine Orders/Code Status Code Status: DNRCC-A (okay to intubate) DC O2, CPAP, BIPAP needs Additional Home O2 Discharge instructions: No Wound(s) LEFT LOWER LIP: Wound Type: SCAB FROM SKIN CA REMOVAL RIGHT WRIST: Wound Type: Puncture Therapies Weight Bearing: Weight bearing as tolerated Physical Therapy: Eval and Treat Occupational Therapy: Eval and Treat Problem/Diagnosis (1) Left knee pain: Status: Acute Code(s): M25.562 - Pain in left knee (2) Rupture of left quadriceps tendon: Status: Acute Code(s): S76.112A - Strain of left quadriceps muscle, fascia and tendon, initial encounter Plan Patient is an 84-year-old female who presented [facility] ED on 06/17/2024 with left knee pain with mechanical fall and urinary retention. Hospital course as noted below. Patient discharged to TCU in stable condition on 06/19. 1. Left knee pain with mechanical fall, acute on chronic debility ? PT/OT/case management following. Orthopedic surgery evaluated. Patient with history of left knee replacement about 20 years ago. Reported worsening chronic left knee pain over the past few weeks resulting in a fall at home with significant pain and swelling of the knee. Lower extremity CT on admit showed good alignment of total knee replacement, no fracture or dislocation seen, large joint effusion noted. On exam, swelling noted but no warmth or erythema. Per orthopedics, suspect that findings are due to a partial quadriceps tear. Patient with adequate range of motion on exam, no concern for complete tendon rupture. Okay for weightbearing as tolerated and can utilize immobilizer as needed but there is no strict need to utilize this. Continue pain management with scheduled Tylenol and oxycodone as needed on discharge. Discharged to TCU in stable condition. 2. Urinary retention ? Patient with history of urinary retention, has followed with Dr. Nava in the past and recently established with [facility]. Had a Botox injection done there about 3 weeks ago and plan was for another Botox injection on Thursday 06/21. Patient reported being unable to urinate for about 2 days prior to admission and was found to have 1100 cc of urine in the bladder in the ED. Yepez placed at that time. Removed Yepez on 06/18 for void trial and unfortunately patient had greater than 400 cc of urine in the bladder after 3 consecutive void trials, so Yepez was placed again on 06/19 and patient will be discharged with Yepez in place. Will need close outpatient follow-up with urology. 3. History of GERD with upper GI bleed ? Follows with outpatient GI. Had EGD on 01/18/2024 that showed an oozing gastric ulcer and oozing duodenal ulcers that were treated with heater probe. Patient has done well since then, is on PPI daily and completed sucralfate therapy. Plan is for repeat EGD soon to confirm healing of the ulcers. Continue home PPI. 4. Underweight BMI ? BMI 19.3 on admit. Patient thin appearing on exam but not cachectic, low concern for malnutrition. However given her low weight added supplements to meals while inpatient. 5. History of chronic low back pain with neuropathy ? Recently followed with physical therapy for about 2 months for this back pain. On review of those notes, patient noted to PT that she had followed with pain management for about 1 year without much help. Did show some improvement with physical therapy but patient continues to report some low back pain with debility at this time. Continue home gabapentin. 6. History of LV dysfunction, hypertension, hyperlipidemia ? Follows with outpatient cardiology. Found on echo on 04/22/2024 to have an EF of 35% with moderate to severe global hypokinesis of the LV, no other significant findings. Cardiac cath on 06/11 with no coronary artery disease noted. Recommendation was for aggressive blood pressure management. Blood pressure has been stable in the 110s to 120s since admission. Continue home aspirin, statin, Toprol. 7. History of COPD ? Stable on room air, not in acute exacerbation. Continue home inhalers. 8. Depression/anxiety ? Stable. Continue home duloxetine and nortriptyline. Total clinical time spent by myself addressing the patient's medical issues, reviewing all the data, and collaborating with patient's care team: 35 minutes. Allergies/Procedures Done in Hospital Allergies No Known Allergies Allergy (Verified 06/16/24 23:07) Type of Care/Length of Stay Estimated LOS: Convalescent Care Less Than 30 days Type of Care Needed: Skilled Rehab Potential: Fair Prognosis: Fair Additional Orders/Day of Discharge H&P will serve as current which was dated: 06/17/24 Day of Discharge: 06/19/24 Discharge Plan Admission Admit Date/Time: 06/17/24 15:20 Primary Reason for Your Visit: Left knee pain Attending Provider: Fito Kessler Primary Care Provider: Franc Lau Consulting Providers: Aranza Reynolds; Casa Guerrero Discharge Orders/Prescriptions Prescriptions: New Arthritis Pain Compound 1 click topical BID Qty: 0 0RF acetaminophen 500 mg Tablet 1,000 mg PO Q8 Qty: 0 0RF Continued ondansetron 4 mg tablet,disintegrating 8 mg PO Q8H PRN (Reason: nausea and vomiting) metoprolol succinate 50 mg tablet extended release 24 hr 50 mg PO QDAY nortriptyline 25 mg capsule 25 mg PO QHS duloxetine 20 mg capsule,delayed release(DR/EC) 20 mg PO DAILY atorvastatin 20 mg tablet 20 mg PO QDAY aspirin [Adult Aspirin Regimen] 81 mg tablet,delayed release (DR/EC) 81 mg PO QDAY pantoprazole 40 mg tablet,delayed release (DR/EC) 40 mg PO QDAY budesonide-formoterol 160-4.5 mcg/actuation Hfa Aerosol Inhaler 2 puff INHALATION BID gabapentin 300 mg capsule 300 mg PO TID 14 Days Qty: 42 0RF oxycodone 5 mg tablet 5 mg PO Q6H PRN (Reason: pain) 5 Days Qty: 20 0RF zuPOO capsule 1 - 2 cap PO DAILY sucralfate 1 gram Tablet 1 g PO 1HR_ACHS 30 Days Qty: 90 1RF cranberry extract [Cranberry Concentrate] 500 mg capsule 50 mg PO DAILY Rx Instructions: administer with a meal Discontinued hydrocodone-acetaminophen 5-325 mg tablet 1 tab PO Q8H PRN (Reason: pain) Referrals / Follow Up: Franc Lau MD [Primary Care Provider] - Disposition Disposition (needs filled in before D/C Order can be placed): [facility]
--- NOTE | 2024-06-19 17:04 | PCM.DC.SUM ---
Providers Date of Admission: 06/17/24 Date of Discharge: 06/19/24 Primary Care Physician: Franc Lau MD Consultations 06/19/24 11:56 Consult: Orthopedics Routine Consulting Provider: Casa Guerrero Reason for Consult: concern for partial vs full quad tear EMERGENT Consult: No MD Notified: Yes Date Notified: 06/19/24 Time Notified: 11:00 Method of Notification: Verbal Reason For Visit: FALL Diagnosis Discharge Diagnosis (1) Left knee pain: Status: Acute Code(s): M25.562 - Pain in left knee (2) Rupture of left quadriceps tendon: Status: Acute Code(s): S76.112A - Strain of left quadriceps muscle, fascia and tendon, initial encounter Medications at Discharge Home Medications sucralfate 1 gram tablet 1 g PO 1HR_ACHS ANTACID 30 days #90 tabs 01/19/24 aspirin 81 mg tablet,delayed release (Adult Aspirin Regimen) 81 mg PO QDAY blood thinner 05/06/24 atorvastatin 20 mg tablet 20 mg PO QDAY cholesterol 05/06/24 duloxetine 20 mg capsule,delayed release 20 mg PO DAILY mood 05/06/24 metoprolol succinate 50 mg tablet,extended release 24 hr 50 mg PO QDAY blood pressure 05/06/24 nortriptyline 25 mg capsule 25 mg PO QHS nerve pain 05/06/24 pantoprazole 40 mg tablet,delayed release 40 mg PO QDAY GERD 05/22/24 gabapentin 300 mg capsule 300 mg PO TID pain 14 days #42 caps 06/17/24 oxycodone 5 mg tablet 5 mg PO Q6H PRN pain 5 days #20 tabs 06/19/24 alendronate 70 mg tablet 70 mg PO QWEEK 06/21/24 ipratropium 0.5 mg-albuterol 3 mg (2.5 mg base)/3 mL nebulization soln 3 ml inhalation Q4H PRN shortness of breath or wheezing 06/21/24 Hospital Course Operations None Procedures - (Knee x-ray, pelvis x-ray, CT lower extremity) Summary of Care Provided Minutes Spent on Discharge: 35 Hospital Course: Patient is an 84-year-old female who presented [facility] ED on 06/17/2024 with left knee pain with mechanical fall and urinary retention. Hospital course as noted below. Patient discharged to TCU in stable condition on 06/19. 1. Left knee pain with mechanical fall, acute on chronic debility ? PT/OT/case management followed. Orthopedic surgery evaluated. Patient with history of left knee replacement about 20 years ago. Reported worsening chronic left knee pain over the past few weeks resulting in a fall at home with significant pain and swelling of the knee. Lower extremity CT on admit showed good alignment of total knee replacement, no fracture or dislocation seen, large joint effusion noted. On exam, swelling noted but no warmth or erythema. Per orthopedics, suspect that findings are due to a partial quadriceps tear. Patient with adequate range of motion on exam, no concern for complete tendon rupture. Okay for weightbearing as tolerated and can utilize immobilizer as needed but there is no strict need to utilize this. Continue pain management with scheduled Tylenol and oxycodone as needed on discharge. Discharged to TCU in stable condition. 2. Urinary retention ? Patient with history of urinary retention, has followed with Dr. Nava in the past and recently established with [facility]. Had a Botox injection done there about 3 weeks ago and plan was for another Botox injection on Thursday 06/21. Patient reported being unable to urinate for about 2 days prior to admission and was found to have 1100 cc of urine in the bladder in the ED. Yepez placed at that time. Removed Yepez on 06/18 for void trial and unfortunately patient had greater than 400 cc of urine in the bladder after 3 consecutive void trials, so Yepez was placed again on 06/19 and patient will be discharged with Yepez in place. Will need close outpatient follow-up with urology. 3. History of GERD with upper GI bleed ? Follows with outpatient GI. Had EGD on 01/18/2024 that showed an oozing gastric ulcer and oozing duodenal ulcers that were treated with heater probe. Patient has done well since then, is on PPI daily and completed sucralfate therapy. Plan is for repeat EGD soon to confirm healing of the ulcers. Continue home PPI. 4. Underweight BMI ? BMI 19.3 on admit. Patient thin appearing on exam but not cachectic, low concern for malnutrition. However given her low weight added supplements to meals while inpatient. 5. History of chronic low back pain with neuropathy ? Recently followed with physical therapy for about 2 months for this back pain. On review of those notes, patient noted to PT that she had followed with pain management for about 1 year without much help. Did show some improvement with physical therapy but patient continues to report some low back pain with debility at this time. Continue home gabapentin. 6. History of LV dysfunction, hypertension, hyperlipidemia ? Follows with outpatient cardiology. Found on echo on 04/22/2024 to have an EF of 35% with moderate to severe global hypokinesis of the LV, no other significant findings. Cardiac cath on 06/11 with no coronary artery disease noted. Recommendation was for aggressive blood pressure management. Blood pressure has been stable in the 110s to 120s since admission. Continue home aspirin, statin, Toprol. 7. History of COPD ? Stable on room air, not in acute exacerbation. Continue home inhalers. 8. Depression/anxiety ? Stable. Continue home duloxetine and nortriptyline. Total clinical time spent by myself addressing the patient's medical issues, reviewing all the data, and collaborating with patient's care team: 35 minutes. Physical Exam Const alert, oriented x3 and no apparent distress Constitutional Narrative: Elderly female, thin appearing, mildly fatigued appearing, otherwise sitting up comfortably in bed, conversing normally, no acute distress. Stable. General Appearance: cooperative and comfortable HEENT normocephalic, head/scalp atraumatic, hearing grossly normal bilaterally, nasal mucous membranes and turbinates normal and moist oral mucous membranes Eyes PERRL, EOMs intact bilaterally and conjunctivae normal Neck full ROM Chest inspection of chest normal Resp normal respiratory effort, normal air movement, no use of accessory muscles and clear to auscultation bilaterally Cardio regular rate, regular rhythm, no murmurs and peripheral pulses 2+ throughout GI normal to inspection, nondistended, normoactive bowel sounds, soft to palpation, non-tender and non-distended Back/Spine normal ROM Extremity Extremity Narrative: Left knee with brace in place. Notably had significant swelling just above the anterior knee with mild tenderness to palpation on admission, along with pain with any flexion at the knee. Skin no rashes or lesions noted Neuro Sensorium / Orientation: awake and alert Speech: speech normal Psych mental status grossly normal Weight / BMI Weight Weight: 52.617 kg Body Mass Index (BMI) 19.3 ABG / Lab / Microbiology Data 06/18/24 06:41 06/18/24 06:41 Microbiology: Microbiology 06/17/24 13:55 Urine Catheter - Yepez Urine Culture - Final Culture exhibits no growth. D/C Instructions DC O2, CPAP, BIPAP Needs Additional Home O2 Discharge instructions: No DC home with Oxygen: No Meaningful Use Info Meaningful Use Meaningful Use Diagnoses (Choose all that apply): None applicable Ischemic Stroke Statin Dosing Therapy Reference: STATIN DOSE THERAPY REFERENCE: * Patients > 75 years receive moderate or high dose statin therapy. * Patients 75 years or YOUNGER should receive HIGH intensity statin dose unless contraindicated. You will be required to document reason for non-treatment if statin daily dose does not meet guidelines. HIGH DOSE STATIN THERAPY DAILY Atorvastatin > than or = to 40 mg Rosuvastatin > than or = to 20 mg Amlodipine + Atorvastatin > than or = to 2.5/40 mg Ezetimibe + Simvastatin 10/80 mg Simvastatin 80mg Discharge Plan Admission Admit Date/Time: 06/17/24 15:20 Primary Reason for Your Visit: Left knee pain Attending Provider: Fito Kessler Primary Care Provider: Franc Lau Consulting Providers: Aranza Reynolds; Casa Guerrero Discharge Orders/Prescriptions Prescriptions: Continued metoprolol succinate 50 mg tablet extended release 24 hr 50 mg PO QDAY nortriptyline 25 mg capsule 25 mg PO QHS duloxetine 20 mg capsule,delayed release(DR/EC) 20 mg PO DAILY atorvastatin 20 mg tablet 20 mg PO QDAY aspirin [Adult Aspirin Regimen] 81 mg tablet,delayed release (DR/EC) 81 mg PO QDAY pantoprazole 40 mg tablet,delayed release (DR/EC) 40 mg PO QDAY gabapentin 300 mg capsule 300 mg PO TID 14 Days Qty: 42 0RF oxycodone 5 mg tablet 5 mg PO Q6H PRN (Reason: pain) 5 Days Qty: 20 0RF sucralfate 1 gram Tablet 1 g PO 1HR_ACHS 30 Days Qty: 90 1RF Discontinued hydrocodone-acetaminophen 5-325 mg tablet 1 tab PO Q8H PRN (Reason: pain) No Action alendronate 70 mg tablet 70 mg PO QWEEK ipratropium-albuterol 0.5 mg-3 mg(2.5 mg base)/3 mL solution for nebulization 3 ml inhalation Q4H PRN (Reason: shortness of breath or wheezing) Referrals / Follow Up: Franc Lau MD [Primary Care Provider] - Disposition Disposition (needs filled in before D/C Order can be placed): [facility] Charges/Coding Visit Charges Inpatient E&M: 63080 Disch Hosp >30min
--- NOTE | 2024-06-19 17:55 | NURSING ---
attempted to call report to tcu, no answer
--- NOTE | 2024-06-19 18:12 | NURSING ---
attempted to call report again. nurses are in a room right now and will call back
--- NOTE | 2024-06-19 19:57 | NURSING ---
1904-report called to tcu.pt will go to room 3. Dr tao was just updated via phone ([id number])
--- NOTE | 2024-06-19 22:27 | CONS.ORTHO ---
HPI Consult Data Date of Consult: 06/19/24 HPI Narrative Reason for Consultation: Left knee pain and swelling HPI Narrative: SANDIE HO, is a 84 F who sustained a fall several days ago. She noted a pop in her left knee and has had pain since. She notes swelling. She had a remote left total knee arthroplasty performed by another provider. She reports waxing and waning achiness in her left knee over the last several months. She was having trouble mobilizing but states this is improved with some physical therapy after admission to the hospital. No numbness or tingling. States her pain is tolerable at this time. Denies any fevers, chills or nausea or vomiting, chest pain or shortness of breath. [facility] Medical History Depression Rheumatoid arthritis GI bleed Former smoker Asthma Migraines B12 deficiency Depressive disorder Mild cognitive impairment Essential (primary) hypertension CAD (coronary artery disease) Left ventricular hypertrophy Osteoporosis OAB (overactive bladder) Palpitations Fatigue GERD (gastroesophageal reflux disease) Dysphagia COPD (chronic obstructive pulmonary disease) Chronic ischemic colitis Chest pain DVT (deep venous thrombosis) Dyspnea Spondylosis Back pain Osteoarthritis Neoplasm of kidney Vitamin D deficiency Iron deficiency anemia Occipital neuralgia of right side Major depressive disorder Chronic headaches Home Medications ?Medication ?Instructions ?Recorded ?Last Taken ?Type budesonide-formoterol HFA 160 2 puff inhalation BID breathing 05/01/21 Unknown History mcg-4.5 mcg/actuation aerosol inhaler ondansetron 4 mg disintegrating 8 mg PO Q8H PRN nausea and vomiting 06/06/23 Unknown History tablet zuPOO 1 - 2 cap PO DAILY Constipation 01/18/24 01/17/24 History sucralfate 1 gram tablet 1 g PO 1HR_ACHS ANTACID 30 days 01/19/24 06/19/24 15:15 Rx #90 tabs aspirin 81 mg tablet,delayed 81 mg PO QDAY blood thinner 05/06/24 06/19/24 History release (Adult Aspirin Regimen) atorvastatin 20 mg tablet 20 mg PO QDAY cholesterol 05/06/24 06/19/24 10:30 History duloxetine 20 mg capsule,delayed 20 mg PO DAILY mood 05/06/24 06/19/24 10:30 History release metoprolol succinate 50 mg 50 mg PO QDAY blood pressure 05/06/24 06/19/24 10:30 History tablet,extended release 24 hr nortriptyline 25 mg capsule 25 mg PO QHS nerve pain 05/06/24 06/18/24 History cranberry extract 500 mg capsule 50 mg PO DAILY UTI Prevention 05/22/24 Unknown History (Cranberry Concentrate) pantoprazole 40 mg tablet,delayed 40 mg PO QDAY GERD 05/22/24 06/19/24 10:30 History release gabapentin 300 mg capsule 300 mg PO TID pain 14 days #42 caps 06/17/24 06/19/24 15:15 Rx Arthritis Pain Compound 1 click topical BID pain 06/19/24 06/19/24 10:30 History acetaminophen 500 mg tablet 1,000 mg (2 x 500 mg) PO Q8 pain 06/19/24 06/19/24 15:15 Rx #0 tabs oxycodone 5 mg tablet 5 mg PO Q6H PRN pain 5 days #20 06/19/24 Unknown Rx tabs Allergy/AdvReac Type Severity Reaction Status Date / Time No Known Allergies Allergy Verified 06/16/24 23:07 Family History Father CAD (coronary artery disease) CABG x 5 Skin cancer Brother Diabetes CAD (coronary artery disease) age 59 Skin cancer Mother Skin cancer Surgical History History of left heart catheterization (~2002) History of bilateral knee replacement History of open reduction and internal fixation (ORIF) procedure History of right hip replacement Social History household members: none Smoking Status: Former smoker alcohol intake: current alcohol intake frequency: a few times a week substance use type: does not use ROS ROS Narrative 12 point review systems obtained, negative as otherwise noted HPI. Vital Signs Vital Signs Vital Signs: 06/19/24 05:03 06/19/24 07:22 06/19/24 10:00 Temperature 97.5 F L Temperature Source Oral Pulse Rate 59 L Pulse Strength Normal (2+) Respiratory Rate 16 Blood Pressure 138/58 H Blood Pressure Mean 84 Blood Pressure Source Monitor Blood Pressure Position Semi-Fowlers Blood Pressure Location Left Arm Pulse Ox 94 Oxygen Delivery Method Room Air Room Air 06/19/24 10:00 06/19/24 10:27 06/19/24 14:00 Temperature 97.6 F L 97.6 F L Temperature Source Oral Oral Pulse Rate 64 64 60 Pulse Strength Respiratory Rate 14 14 Blood Pressure 123/56 H 130/56 H Blood Pressure Mean 78 80 Blood Pressure Source Monitor Monitor Blood Pressure Position Semi-Fowlers Supine Blood Pressure Location Left Arm Left Arm Pulse Ox 98 94 Oxygen Delivery Method Room Air Room Air Weight Weight: 116 lb Body Mass Index (BMI) 19.3 Physical Exam Narrative General -A&Ox3, NAD, appears stated age. Vital signs stable, afebrile. Respiratory -normal work of breathing, no intercostal retractions. CV -pulses regular, brisk capillary refill ?4 limbs. Abdomen-soft, nontender, nondistended. No guarding, rigidity, rebound tenderness. Musculoskeletal/neurologic -full range of motion nontender throughout bilateral upper extremities, right lower extremity with full sensation and strength in all dermatomes and myotomes. No midline cervical tenderness. Left lower extremity-no obvious deformity. Knee immobilizer in place and removed. 2+ left knee effusion. Able to perform straight leg raise. 8 mm gapping with valgus stress and pain. Brisk capillary refill. Sensation intact light touch L3-S1 dermatomes. DF, PF, EHL intact. DP, PT 2+. Pelvis is stable, nontender. Skin is intact without lacerations, abrasions. No ecchymosis noted. Lab / Micro Data 06/18/24 06:41 06/18/24 06:41 Micro: Microbiology 06/17/24 13:55 Urine Catheter - Yepez Urine Culture - Preliminary Culture exhibits no growth. Assessment & Plan Assessment/Plan (1) Left knee pain: PLAN: Patient seen and examined. X-rays and CT scan reviewed. No obvious extensor mechanism disruption based on imaging. She is able to perform a straight leg raise. She may have sustained an MCL injury although this is difficult to determine this is my first time examining her knee. She may weight-bear as tolerated in the left knee. She may use knee immobilizer as needed. I recommended follow-up with his wrist orthopedics in the next 2 to 3 weeks for reassessment. She would benefit from physical therapy. All questions were answered patient satisfaction. Thank you for this consultation. Plan of care was discussed with Dr. Kessler prior to discharge.
== END 2024-06-19 20:19 ==
LOC: ED 14:46 → MS3 14:53
PROVIDERS: Admitting Provider Internal Medicine; Emergency Provider Emergency Medicine; PCP Family Medicine; Visit Provider Hospitalist
DX: S76.112A Strain of left quadriceps muscle, fascia and tendon, initial encounter (principal); J44.9 Chronic obstructive pulmonary disease, unspecified; I25.10 Atherosclerotic heart disease of native coronary artery without angina pectoris; K21.9 Gastro-esophageal reflux disease without esophagitis; R33.9 Retention of urine, unspecified; I10 Essential (primary) hypertension; F41.9 Anxiety disorder, unspecified; W19.XXXA Unspecified fall, initial encounter; M54.50 Low back pain, unspecified; Z79.82 Long term (current) use of aspirin; Z87.891 Personal history of nicotine dependence; R53.81 Other malaise; Z96.652 Presence of left artificial knee joint; M81.0 Age-related osteoporosis without current pathological fracture; R29.6 Repeated falls; Z79.899 Other long term (current) drug therapy; F32.A Depression, unspecified; R63.6 Underweight; Z68.1 Body mass index [BMI] 19.9 or less, adult; G89.29 Other chronic pain; G62.9 Polyneuropathy, unspecified
CPT/HCPCS: 36415; 51702; 73700; 80048; 80053; 81001; 82550; 85025; 85027; 87086; 94640; 94668; 96374; 96375; 96376; 97162; 97166; 97530; 99221; 99285; A4216; G0378; J2405

== ENCOUNTER 2024-06-19 20:30 | Inpatient (IN) | payer MEDICARE, SELFPAY ==
[2024-06-19 21:34] VITALS: BP 111/42; PULSE 62; RESP 16; TEMP 36.5; O2SAT 92; BMI 19.8
[2024-06-19] MEDS: Gabapentin 300 MG Capsule PO (22:25)
[2024-06-19] MEDS: Acetaminophen 500 MG Tablet 1000 MG PO (22:26)
[2024-06-19] MEDS: Sucralfate 1 GM Tablet PO (22:26)
--- NOTE | 2024-06-19 22:26 | HP.PCM_ITS ---
HPI - General General Date of Admission: 06/19/24 Date of Service: 06/20/24 Chief Complaint: Here for rehabilitation. HPI Narrative SANDIE HO, is a 84 Female who presents with followin06/17/2024 [facility] ED with fall. Multiple falls last 4 days, diagnosed with quadriceps strain. Urinary retention, bladderscan 500cc, Gómez catheter inserted, 1100cc urine drained. Left knee pain, CT left knee NEGATIVE for periprosthetic fracture. 06/17/[address] [facility]. CT left knee showed effusion, no fracture. Pain control, PT/OT for discharge planning. UA +/-, urine culture sent, hold antibiotics. Follows [facility], received botox injection of bladder for overactive bladder. Consider voiding trial. 06/18/2024 Sitting up in bed, mild fatigue. Able to walk 20 feet with PT, wearing left knee immobilizer. Left knee pain with ambulation, Lives alone, not safe to go home alone. Tylenol, Oxycodone, Morphine IV for left knee pain. PT/OT for TCU. Patient requested voiding trial prior to TCU. 06/19/2024 Patient failed voiding trial overnight, gómez catheter reinserted. Dr. Guerrero recommended no surgery for left knee pain, instead, WBAT, left knee immobilizer as needed, PT/OT, f/u Orthopedics in 2-3 weeks. 06/19/2024 Admit to TCU with debility, here for rehabilitation, strengthening, prior to discharge home alone. COUNTS INCLUDE 234 BEDS AT THE [facility] Medical History (Updated 06/19/24 @ 22:[address] Ken Scott MD) Depression Rheumatoid arthritis GI bleed Former smoker Asthma Migraines B12 deficiency Depressive disorder Mild cognitive impairment Essential (primary) hypertension CAD (coronary artery disease) Left ventricular hypertrophy Osteoporosis OAB (overactive bladder) Palpitations Fatigue GERD (gastroesophageal reflux disease) Dysphagia COPD (chronic obstructive pulmonary disease) Chronic ischemic colitis Chest pain DVT (deep venous thrombosis) Dyspnea Spondylosis Back pain Osteoarthritis Neoplasm of kidney Vitamin D deficiency Iron deficiency anemia Occipital neuralgia of right side Major depressive disorder Chronic headaches Home Medications ?Medication ?Instructions ?Recorded ?Last Taken ?Type budesonide-formoterol HFA 160 2 puff inhalation BID breathing 05/01/21 Unknown History mcg-4.5 mcg/actuation aerosol inhaler ondansetron 4 mg disintegrating 8 mg PO Q8H PRN nausea and vomiting 06/06/23 Unknown History tablet zuPOO 1 - 2 cap PO DAILY Constipation 01/18/24 01/17/24 History sucralfate 1 gram tablet 1 g PO 1HR_ACHS ANTACID 30 days 01/19/24 06/19/24 15:15 Rx #90 tabs aspirin 81 mg tablet,delayed 81 mg PO QDAY blood thinner 05/06/24 06/19/24 History release (Adult Aspirin Regimen) atorvastatin 20 mg tablet 20 mg PO QDAY cholesterol 05/06/24 06/19/24 10:30 History duloxetine 20 mg capsule,delayed 20 mg PO DAILY mood 05/06/24 06/19/24 10:30 History release metoprolol succinate 50 mg 50 mg PO QDAY blood pressure 05/06/24 06/19/24 10:30 History tablet,extended release 24 hr nortriptyline 25 mg capsule 25 mg PO QHS nerve pain 05/06/24 06/18/24 History cranberry extract 500 mg capsule 50 mg PO DAILY UTI Prevention 05/22/24 Unknown History (Cranberry Concentrate) pantoprazole 40 mg tablet,delayed 40 mg PO QDAY GERD 05/22/24 06/19/24 10:30 History release gabapentin 300 mg capsule 300 mg PO TID pain 14 days #42 caps 06/17/24 06/19/24 15:15 Rx Arthritis Pain Compound 1 click topical BID pain 06/19/24 06/19/24 10:30 History acetaminophen 500 mg tablet 1,000 mg (2 x 500 mg) PO Q8 pain 06/19/24 06/19/24 15:15 Rx #0 tabs oxycodone 5 mg tablet 5 mg PO Q6H PRN pain 5 days #20 06/19/24 Unknown Rx tabs Allergy/AdvReac Type Severity Reaction Status Date / Time No Known Allergies Allergy Verified 06/16/24 23:07 Family History Father CAD (coronary artery disease) CABG x 5 Skin cancer Brother Diabetes CAD (coronary artery disease) age 59 Skin cancer Mother Skin cancer Surgical History (Updated 06/19/24 @ 22:[address] Ken Scott MD) History of left heart catheterization (~2002) History of bilateral knee replacement History of open reduction and internal fixation (ORIF) procedure History of right hip replacement Social History household members: none Smoking Status: Former smoker alcohol intake: current alcohol intake frequency: a few times a week substance use type: does not use ROS Constitutional Constitutional: Reports weakness; Denies chills, fever(s) or weight gain ENT HEENT: Denies headache(s), nasal congestion or nasal discharge Cardiovascular Cardiovascular: Denies chest pain or palpitations Respiratory/Chest Respiratory/Chest: Denies cough, excessive phlegm production or shortness of breath with exertion Gastrointestinal Gastrointestinal: Denies abdominal pain, nausea or vomiting Genitourinary Genitourinary: Denies dysuria Musculoskeletal Musculoskeletal: Denies joint pain or joint swelling Integumentary Integumentary: Denies rash or wounds Neurologic Neurologic: Denies focal weakness, numbness or tingling Psychiatric Psychiatric: Denies anxiety, auditory hallucinations, depression, homicidal ideation or suicidal ideation Physical Exam Const alert General Appearance: cooperative HEENT normocephalic Eyes PERRL and EOMs intact bilaterally Neck supple, no JVD and no carotid bruits Resp normal respiratory effort, normal air movement and clear to auscultation bilaterally Cardio regular rate and regular rhythm GI normal to inspection, nondistended, normoactive bowel sounds, non-tender and non-distended Bladder / Kidney Exam: catheter in place urethral Extremity normal capillary refill General Extremity: Negative for edema Skin no rashes or lesions noted General Skin Exam: no breakdown Psych affect normal Appearance: appropriate Results Lab / Micro Data 06/20/24 05:15 06/20/24 05:15 Assessment & Plan Assessment/Plan (1) Debility: (2) Multiple falls: (3) Left knee pain: (4) Effusion, left knee: (5) Urinary retention: (6) History of total left knee replacement: (7) COPD (chronic obstructive pulmonary disease): (8) GERD (gastroesophageal reflux disease): QUALIFIERS: Esophagitis presence: esophagitis presence not specified Qualified Code(s): K21.9 - Gastro-esophageal reflux disease without esophagitis (9) Hyperlipidemia: (10) Depression: (11) CAD (coronary artery disease): (12) Chronic headache: (13) Neuropathic pain: PLAN: Plan 84 year old female with below past medical history hospitalized for multiple falls, left knee pain, left knee effusion, fracture ruled out, complicated by urinary retention requiring gómez catheter, admitted to TCU with debility, here for rehabilitation, strengthening, prior to discharge home alone. * Debility - PT/OT. * Pain - Tylenol 1000mg q8, Oxycodone 5mg q4 prn pain (4-10), Arthritis pain compound 1 click topical bid. * Bowel - senna/colace 2 tablets bid, Magnesium citrate 300mL daily prn. * Adult immunization - Administer pneumonia vaccine, covid vaccine, flu vaccine as appropriate. * DVT prophylaxis - Lovenox 40mg sc daily. * Left knee pain/effusion - immobilizer, WBAT. * Coronary artery disease - Metoprolol succinate 50mg daily, Aspirin 81mg daily. * Hyperlipidemia - Atorvastatin 20mg qhs. * Depression - Duloxetine 20mg daily, stable chronic long chain beamer use, GDR not recommended. * COPD - Fluticasone/Salmeterol 232-14 1 puff inhaled q12. * Neuropathic pain - Gabapentin 300mg tid. * Chronic headache - Nortriptyline 25mg qhs. * Nausea - Zofran odt 8mg q8 prn. * Gastric ulcer/duodenal ulcer/esophagitis - Pantoprazole 40mg daily, Sucralfate 1gm qachs. * Urinary retention - indwelling gómez catheter, rx Tamsulosin 0.4mg daily, voiding trials.
[2024-06-19] MEDS: Nortriptyline 25 MG Capsule PO (22:27)
[2024-06-19] MEDS: Arthritis Pain Compound 60 CLICK TUBE TOPICAL (22:27)
[2024-06-19] MEDS: Senna/Docusate Sodium 1 Tablet 2 TABLET PO (23:35)
[2024-06-20] MEDS: 0.9% Saline Lock 10 ML Syringe IV (05:46)
[2024-06-20] MEDS: Gabapentin 300 MG Capsule PO ×3 (05:46→21:03)
[2024-06-20] MEDS: Enoxaparin 40 MG/0.4 ML Syringe SC (05:47)
[2024-06-20] MEDS: Sucralfate 1 GM Tablet PO ×4 (05:47→20:54)
[2024-06-20] MEDS: Acetaminophen 500 MG Tablet 1000 MG PO ×3 (05:47→20:57)
[2024-06-20 05:56] LABS: Absolute Lymphocyte Count 1.79 X10^3/uL (0.83-4.51); Absolute Neutrophil Count 2.8 X10^3/uL (2.0-7.7); Basophil# 0.04 X10^3/uL; Basophil% 0.7 % (0-1); Eosinophil# 0.57 X10^3/uL; Eosinophils% 9.9 % (0-5); Hematocrit 30.6 % (37-47); Hemoglobin 9.8 g/dL (12.0-15.0); Lymphocyte # 1.79 X10^3/ul (0.83-4.51); Lymphocyte % 31.1 % (19-41); Mean Corpuscular Hgb 30.5 pg (27.0-32.0); Mean Corpuscular Volume 95.3 fL (81-99); Mean Platelet Vol. 9.4 fl (6.2-12.0); Monocyte# 0.58 X10^3/uL; Monocyte% 10.1 % (0-10); NRBC Flagged by Analyzer 0 % (0-5); Neutrophil # 2.77 X10^3/uL (2.7-7.7); Platelet Count 201 K/mm3 (150-450); RBC Distribution Width CV 13.1 % (11.6-14.6); RBC Distribution Width SD 45.4 fl (35.1-43.9); Red Blood Count 3.21 M/mm3 (4.2-5.4); White Blood Count 5.8 K/mm3 (4.4-11.0)
[2024-06-20 06:05] VITALS: PULSE 61; RESP 18
[2024-06-20 06:39] LABS: Anion Gap 2 (5-15); BUN 17 mg/dL (7-18); BUN/Creat Ratio 21.3 RATIO (10-20); Calcium,Total 9.3 mg/dL (8.5-10.1); Chloride 105 mmol/L (98-107); EST Glomerular Filtration Rate 73 mL/min (>60); Est Glom Filt Rate - Afr Amer 88 mL/min (>60); Estimated Creatinine Clearance 44.68 ml/min; Glucose 98 mg/dL (74-106); Potassium 4.2 mmol/L (3.5-5.1); Sodium Level 139 mmol/L (136-145)
[2024-06-20] MEDS: DULoxetine Hcl 20 MG Capsule PO (08:48)
[2024-06-20] MEDS: Fluticasone/Salmeterol 232-14 Inhaler 1 PUFF INHALATION ×2 (08:48→20:55)
[2024-06-20] MEDS: Aspirin E.C. 81 MG Tablet PO (08:48)
[2024-06-20] MEDS: Arthritis Pain Compound 60 CLICK TUBE TOPICAL ×2 (08:48→20:52)
[2024-06-20] MEDS: Pantoprazole Sodium 40 MG Tablet PO (08:49)
[2024-06-20] MEDS: Senna/Docusate Sodium 1 Tablet 2 TABLET PO ×2 (08:49→20:56)
[2024-06-20 08:52] VITALS: BP 130/53; PULSE 59
[2024-06-20] MEDS: Metoprolol(XL)Succ 50 MG Tablet PO (08:52)
[2024-06-20] MEDS: Tuberculin,Purif.prot.deriv. 50 TU/ML Vial 0.1 ML ID (11:47)
[2024-06-20] MEDS: Menthol/Lanolin/Calamine/Znox 113 GM Tube 1 APPLIC TOPICAL ×3 (11:48→20:54)
--- NOTE | 2024-06-20 12:09 | CASEMGMT ---
Social Work SW met with patient to complete initial assessment. Introduced self and role. Verified/updated contacts. Patient confirmed code status as DNR-CCA no intubation. SW clarified HCPOA. Pt confirmed is primary, dtr Ngozi is secondary, dtr, Ro is third. Though, Ngozi is out of town, and wants Ro to be secondary contact as she is local. SW requested family provide living will for pt. [facility] with [employer] 06/21 and continued stay is not guaranteed with each review. However, pt is wanting to DC today. SW inquired pt's goal for TCU admission and goals for pt prior to returning home. Pt identified she would like her urinary retention resolved and gómez removed prior to home. Though, pt lacked the insight/awareness to agree to remain in TCU. Pt still requesting to DC home. Pt stated she can do everything on her and doesn't need assistance. SW explained at length the importance of therapy and remaining under nursing and Dr management for urinary issues. Explained therapy will work with pt to ensure safety for pt completing all her tasks and will decide if pt can be adlib in room at any time. Pt is adamant about discharging home before Pool. SW expressed understanding and requested pt remain for the remaining 5 days to allow time and intervention, and this worker will follow up on Monday, 06/24 to see progress in therapy and with voiding. If pt doing well, and Dr agrees, SW to set DC date before Pool. Pt agreed. Pt's waiting in hallway when this worker was exiting and invited in room. SW briefly explained above information. also disappointed with pt not discharging today, but did agree to this worker's follow up 06/24. Pt stated, [TCU] better be working on the urinary retention if I am staying here longer and inquired what that entailed. SW offered to have Dr return this evening during rounds to answer questions. Pt and appreciative. SW left written communication with Dr. Will continue to follow. Emily Ho, [employer]ING MATERIAL [employer]OVER INST[employer]MENT LOAN COLLECTOR
[2024-06-20 14:37] VITALS: BP 124/46; PULSE 62; RESP 14; TEMP 36.2; O2SAT 95
--- NOTE | 2024-06-20 15:50 | PCM.PN.DRR ---
Documented by User: Delmy Holley 06/20/24 16:29 TCU RX Drug Regimen Review Subjective/Objective Subjective/Objective Subjective: TCU Admission. 84 YOF presented to the ER with a fall. Hospitalized for multiple falls, left knee pain, left knee effusion, fracture ruled out, complicated by urinary retention requiring gómez catheter. Admitted to TCU with debility for strengthening and rehabilitation. Objective: Allergies No Known Allergies Allergy (Verified 06/16/24 23:07) Current Medications Generic Name Dose Route Start Last Admin Trade Name Freq PRN Reason Stop Dose Admin Acetaminophen 1,000 mg 06/19/24 22:00 06/20/24 13:42 Acetaminophen 500 Mg Tablet PO 1,000 mg Q8 SAMY Administration Aspirin 81 mg 06/20/24 10:00 06/20/24 08:48 Aspirin E.C. 81 Mg Tablet PO 81 mg DAILY SAMY Administration Atorvastatin Calcium 20 mg 06/19/24 22:00 06/19/24 21:34 Atorvastatin Calcium 20 Mg Tablet PO Not Given QHS SAMY Calamine/Phenol 1 applic 06/20/24 10:00 06/20/24 11:52 Menthol/Lanolin/Calamine/Znox 113 Gm Tube TOPICAL 1 applic BID SAMY Administration Protocol Compound Med 1 click 06/19/24 22:00 06/20/24 08:48 Arthritis Pain Compound 60 Click Tube TOPICAL 1 click BID SAMY Administration Duloxetine HCl 20 mg 06/20/24 10:00 06/20/24 08:48 Duloxetine Hcl 20 Mg Capsule PO 20 mg DAILY SAMY Administration Enoxaparin Sodium 40 mg 06/20/24 06:00 06/20/24 05:47 Enoxaparin 40 Mg/0.4 Ml Syringe SC 40 mg DAILY@0600 SAMY Administration Gabapentin 300 mg 06/19/24 22:00 06/20/24 13:42 Gabapentin 300 Mg Capsule PO 300 mg TID SAMY Administration Magnesium Citrate 300 ml 06/19/24 22:43 Magnesium Citrate 300 Ml PO DAILY PRN Constipation Melatonin 10 mg 06/20/24 22:00 Melatonin 10 Mg Tablet PO QHS SAMY Metoprolol Succinate 50 mg 06/20/24 10:00 06/20/24 08:52 Metoprolol(Xl)Succ 50 Mg Tablet PO 50 mg DAILY SAMY Administration Protocol Nortriptyline HCl 25 mg 06/19/24 22:00 06/19/24 22:27 Nortriptyline 25 Mg Capsule PO 25 mg QHS SAMY Administration Ondansetron HCl 8 mg 06/19/24 21:19 Ondansetron Odt 4 Mg Tablet PO Q8H PRN PRN nausea and vomiting Oxycodone HCl 5 mg 06/19/24 22:44 Oxycodone 5 Mg Tablet PO Q4H PRN PRN Pain Score 4-10 Pantoprazole Sodium 40 mg 06/20/24 10:00 06/20/24 08:49 Pantoprazole Sodium 40 Mg Tablet PO 40 mg DAILY SAMY Administration Fluticasone/Salmeterol 1 puff 06/20/24 10:00 06/20/24 08:48 Fluticasone/Salmeterol 232-14 Inhaler INHALATION 1 puff Q12 SAMY Administration Senna/Docusate Sodium 2 tablet 06/19/24 22:45 06/20/24 08:49 Senna/Docusate Sodium 1 Tablet PO 2 tablet BID SAMY Administration Sodium Chloride 10 - 40 ml 06/19/24 22:32 06/20/24 05:46 0.9% Saline Lock 10 Ml Syringe IV 10 ml UD PRN Administration SALINE FLUSH Sucralfate 1 gm 06/19/24 22:00 06/20/24 11:46 Sucralfate 1 Gm Tablet PO 1 gm 1HR_ACHS SAMY Administration Tamsulosin HCl 0.4 mg 06/20/24 17:30 Tamsulosin Hcl 0.4 Mg Capsule PO DAILY@1730 SAMY Tuberculin PPD 0.1 ml 06/27/24 10:00 Tuberculin,Purif.Prot.Deriv. 50 Tu/Ml Vial ID 06/27/24 10:01 X1 ONE Problem List (Updated 06/19/24 @ 22:[address] Ken Scott MD) Neuropathic pain (Acute) Chronic headache (Chronic) Depression (Acute) Hyperlipidemia (Acute) History of total left knee replacement (Acute) Urinary retention (Acute) Effusion, left knee (Acute) Multiple falls (Acute) Debility (Acute) Left knee pain (Acute) CAD (coronary artery disease) (Acute) GERD (gastroesophageal reflux disease) (Acute) COPD (chronic obstructive pulmonary disease) (Chronic) Vital Signs Temp Pulse Resp BP Pulse Ox O2 Del Method 97.1 F L 62 14 124/46 H 95 Room Air 06/20/24 14:37 06/20/24 14:37 06/20/24 14:37 06/20/24 14:37 06/20/24 14:37 06/20/24 14:37 Oxygen Delivery Method Room Air Weight: 54.063 kg Body Mass Index (BMI) 19.8 Sodium 139 mmol/L (136-145) 06/20/24 05:15 Potassium 4.2 mmol/L (3.5-5.1) 06/20/24 05:15 Chloride 105 mmol/L (98-107) 06/20/24 05:15 Carbon Dioxide 31.0 mmol/L (21.0-32.0) 06/20/24 05:15 Anion Gap 2 (5-15) L 06/20/24 05:15 BUN 17 mg/dL (7-18) 06/20/24 05:15 Creatinine 0.80 mg/dL (0.55-1.02) 06/20/24 05:15 Est GFR (MDRD) Af Amer 88 mL/min (>60) 06/20/24 05:15 Est GFR (MDRD) Non-Af 73 mL/min (>60) 06/20/24 05:15 BUN/Creatinine Ratio 21.3 RATIO (10-20) H 06/20/24 05:15 Glucose 98 mg/dL (74-106) 06/20/24 05:15 Assessment/Plan: 1. Pain: acetaminophen 1000mg PO Q8, oxycodone 5mg PO Q4H PRN pain 4-10 and arthritis pain compound 1 click topical BID. Resident has not had any PRN usage. Please continue to monitor for PRN usage and increased pain. 2. Bowel: senna/docusate 2T PO BID and magnesium citrate 300mL PO daily PRN constipation. Resident has not had any PRN doses. Please continue to monitor for constipation and PRN usage. Last documented bowel movement was 06/16. 3. DVT prophylaxis: enoxaparin 40mg SC daily. Please continue to monitor for S/S of bleeding, hemoglobin (last 9.8g/dL), renal function and platelets (last 207,000). 4. CAD: metoprolol succinate 50mg PO daily and aspirin 81mg PO daily. Please continue to monitor BP (last 124/46), HR (last 62), S/S of bleeding and hemoglobin. 5. Hyperlipidemia: atorvastatin 20mg PO QHS. Please consider ordering a lipid panel as the last was from 01/26/23. Thanks. Please continue to monitor LFTs (last 06/17/24) and muscle pain. 6. COPD: fluticasone/salmeterol 232/14mcg 1 puff inhaled Q12. Please continue to monitor HR (last 62), SOB, S/S of thrush. Please rinse mouth with water and spit following administration to prevent thrush. 7. Gastric ulcer: pantoprazole 40mg PO daily and sucralfate 1gm PO 1HR_ACHS. Please continue to monitor for S/S of ulcer, gas, upset stomach and diarrhea (BEERs). 8. Urinary retention: tamsulosin 0.4mg PO daily. Please continue to monitor for urinary retention and BP. 9. Nausea: ondansetron 8mg PO Q8H PRN nausea. No PRN doses have been given. Please continue to monitor for S/S of nausea and PRN usage. 10. Insomnia: melatonin 10mg PO QHS. Please continue to monitor for insomnia or excessive daytime drowsiness. Assessment/Plan for indications treated with psychotropic medications: 1. Depression: duloxetine 20mg PO daily. Please see physician note regarding GDR. Please continue to monitor for suicidal ideation (black box warning), sodium (last 139mmol/L), falls/fractures (BEERs). 2. Chronic headache: nortriptyline 25mg PO QHS. GDR not appropriate as this is being used for headache. Please continue to monitor for dementia/delirium (BEERs), falls/fractures (BEERs), anticholinergic side effects (pt with urinary retention on tamsulosin). 3. Neuropathic pain: gabapentin 300mg PO TID. GDR not appropriate as this is being used for neuropathy, however, please consider changing the frequency to BID per recommendation for CrCl of 44 mL/min to decrease the risk of adverse effects. Thanks. Please continue to monitor for confusion, falls/fractures (BEERs) and renal function. Medical chart and medication regimen reviewed. The following medication irregularities or issues were identified: 1. Gabapentin 300mg PO TID. GDR not appropriate as this is being used for neuropathy, however, please consider changing the frequency to BID per recommendation for CrCl of 44 mL/min to decrease the risk of adverse effects. Thanks. Date Date of Note: 06/20/24 Documented by User: Dr. Ken Scott MD 06/20/24 17:07 TCU RX Drug Regimen Review Provider Comments Provider responsibility Provider Comments to Recommendations by Pharmacy Agree
[2024-06-20] MEDS: Tamsulosin HCl 0.4 MG Capsule PO (16:40)
[2024-06-20] MEDS: Magnesium Citrate 300 ML PO (17:44)
[2024-06-20] MEDS: Nortriptyline 25 MG Capsule PO (20:56)
[2024-06-20] MEDS: Atorvastatin Calcium 20 MG Tablet PO (20:56)
[2024-06-20] MEDS: MELATONIN 10 MG TABLET PO (20:56)
[2024-06-21] MEDS: Acetaminophen 500 MG Tablet 1000 MG PO ×3 (06:24→22:11)
[2024-06-21] MEDS: Enoxaparin 40 MG/0.4 ML Syringe SC (06:24)
[2024-06-21] MEDS: Sucralfate 1 GM Tablet PO ×4 (06:24→22:11)
[2024-06-21] MEDS: oxyCODONE 5 MG Tablet PO (06:32)
[2024-06-21 08:03] LABS: Hematocrit 30.9 % (37-47)
[2024-06-21] MEDS: DULoxetine Hcl 20 MG Capsule PO (08:24)
[2024-06-21] MEDS: Aspirin E.C. 81 MG Tablet PO (08:24)
[2024-06-21 08:25] VITALS: PULSE 62
[2024-06-21] MEDS: Fluticasone/Salmeterol 232-14 Inhaler 1 PUFF INHALATION ×2 (08:25→22:13)
[2024-06-21] MEDS: Senna/Docusate Sodium 1 Tablet 2 TABLET PO ×2 (08:25→22:11)
[2024-06-21] MEDS: Arthritis Pain Compound 60 CLICK TUBE TOPICAL ×2 (08:25→22:10)
[2024-06-21] MEDS: Gabapentin 300 MG Capsule PO ×2 (08:25→22:18)
[2024-06-21] MEDS: Menthol/Lanolin/Calamine/Znox 113 GM Tube 1 APPLIC TOPICAL ×2 (08:25→22:10)
[2024-06-21] MEDS: Metoprolol(XL)Succ 50 MG Tablet PO (08:25)
[2024-06-21] MEDS: Pantoprazole Sodium 40 MG Tablet PO (08:25)
[2024-06-21 11:34] VITALS: BP 119/48; PULSE 62; RESP 16; TEMP 36.3; O2SAT 96
--- NOTE | 2024-06-21 13:02 | NURSING ---
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 She watches tv, reads, visits w/family and friends. She stated she prefers in room activities at this time over group. She welcomes visits from the dryer operator and therapy dog when available. Staff will remind her of social activities and respect her right to say no.
[2024-06-21] MEDS: Tamsulosin HCl 0.4 MG Capsule PO (16:34)
[2024-06-21 20:00] VITALS: PULSE 72; RESP 16; O2SAT 93
[2024-06-21] MEDS: MELATONIN 10 MG TABLET PO (22:12)
[2024-06-21] MEDS: Nortriptyline 25 MG Capsule PO (22:12)
[2024-06-21] MEDS: Atorvastatin Calcium 20 MG Tablet PO (22:13)
[2024-06-22] MEDS: Acetaminophen 500 MG Tablet 1000 MG PO ×3 (06:01→21:41)
[2024-06-22] MEDS: Sucralfate 1 GM Tablet PO ×4 (06:01→21:41)
[2024-06-22] MEDS: Enoxaparin 40 MG/0.4 ML Syringe SC (06:01)
[2024-06-22 06:27] VITALS: PULSE 68; RESP 16; O2SAT 93
[2024-06-22] MEDS: Arthritis Pain Compound 60 CLICK TUBE TOPICAL ×2 (08:01→21:44)
[2024-06-22 08:02] VITALS: PULSE 74
[2024-06-22] MEDS: Pantoprazole Sodium 40 MG Tablet PO (08:02)
[2024-06-22] MEDS: DULoxetine Hcl 20 MG Capsule PO (08:02)
[2024-06-22] MEDS: Aspirin E.C. 81 MG Tablet PO (08:02)
[2024-06-22] MEDS: Gabapentin 300 MG Capsule PO ×2 (08:02→21:40)
[2024-06-22] MEDS: Metoprolol(XL)Succ 50 MG Tablet PO (08:02)
[2024-06-22] MEDS: Fluticasone/Salmeterol 232-14 Inhaler 1 PUFF INHALATION ×2 (08:02→21:43)
[2024-06-22] MEDS: Menthol/Lanolin/Calamine/Znox 113 GM Tube 1 APPLIC TOPICAL ×2 (08:02→21:46)
[2024-06-22] MEDS: Senna/Docusate Sodium 1 Tablet 2 TABLET PO ×2 (08:02→21:41)
[2024-06-22 09:24] VITALS: BP 113/47; PULSE 74; RESP 16; TEMP 36.3; O2SAT 97
[2024-06-22] MEDS: Tamsulosin HCl 0.4 MG Capsule PO (16:34)
[2024-06-22] MEDS: Atorvastatin Calcium 20 MG Tablet PO (21:41)
[2024-06-22] MEDS: MELATONIN 10 MG TABLET PO (21:42)
[2024-06-22] MEDS: Nortriptyline 25 MG Capsule PO (21:42)
[2024-06-23] MEDS: Sucralfate 1 GM Tablet PO ×4 (06:43→21:34)
[2024-06-23] MEDS: Acetaminophen 500 MG Tablet 1000 MG PO ×3 (06:43→21:34)
[2024-06-23] MEDS: Enoxaparin 40 MG/0.4 ML Syringe SC (06:43)
[2024-06-23] MEDS: Arthritis Pain Compound 60 CLICK TUBE TOPICAL ×2 (08:25→21:35)
[2024-06-23] MEDS: Aspirin E.C. 81 MG Tablet PO (08:25)
[2024-06-23 08:26] VITALS: BP 130/50; PULSE 57
[2024-06-23] MEDS: Pantoprazole Sodium 40 MG Tablet PO (08:26)
[2024-06-23] MEDS: DULoxetine Hcl 20 MG Capsule PO (08:26)
[2024-06-23] MEDS: Metoprolol(XL)Succ 50 MG Tablet PO (08:26)
[2024-06-23] MEDS: Fluticasone/Salmeterol 232-14 Inhaler 1 PUFF INHALATION ×2 (08:27→21:34)
[2024-06-23] MEDS: Gabapentin 300 MG Capsule PO ×2 (08:27→21:34)
[2024-06-23] MEDS: Menthol/Lanolin/Calamine/Znox 113 GM Tube 1 APPLIC TOPICAL ×2 (08:27→21:35)
[2024-06-23 10:00] VITALS: BP 130/50; PULSE 57; RESP 18; TEMP 36.3; O2SAT 96
--- NOTE | 2024-06-23 15:53 | NURSING ---
Patient ambulating to bathroom with FWW and gómez cath bag was not attached and was tugged on. Patient began to complain of pain and family alerted staff. This nurse went to assess patient. Gómez cath is intact and in place. Patient stated pain has subsided. Denies any abdominal discomfort. Gómez cath irrigated and flushes easily. No blood tinged urine or blood clots noted. Will cont to monitor Gómez cath and urine output. Family in at bedside and aware of above. Call light in reach.
[2024-06-23] MEDS: Tamsulosin HCl 0.4 MG Capsule PO (16:34)
[2024-06-23] MEDS: MELATONIN 10 MG TABLET PO (21:34)
[2024-06-23] MEDS: Atorvastatin Calcium 20 MG Tablet PO (21:34)
[2024-06-23] MEDS: Nortriptyline 25 MG Capsule PO (21:34)
[2024-06-23 21:35] VITALS: RESP 16
[2024-06-24] MEDS: Enoxaparin 40 MG/0.4 ML Syringe SC (06:03)
[2024-06-24] MEDS: Pantoprazole Sodium 40 MG Tablet PO (07:57)
[2024-06-24] MEDS: Fluticasone/Salmeterol 232-14 Inhaler 1 PUFF INHALATION ×2 (07:57→21:18)
[2024-06-24] MEDS: Arthritis Pain Compound 60 CLICK TUBE TOPICAL ×2 (07:57→21:14)
[2024-06-24] MEDS: Menthol/Lanolin/Calamine/Znox 113 GM Tube 1 APPLIC TOPICAL ×2 (07:57→21:14)
[2024-06-24 08:00] VITALS: PULSE 61
[2024-06-24] MEDS: Metoprolol(XL)Succ 50 MG Tablet PO (08:00)
[2024-06-24] MEDS: Gabapentin 300 MG Capsule PO ×2 (08:02→21:10)
--- NOTE | 2024-06-24 08:54 | NURSING ---
Offered covid vaccine, VIS provided. Resident refuses at this time.
[2024-06-24 08:56] VITALS: BP 144/52; PULSE 61; RESP 18; TEMP 36.2; O2SAT 97
[2024-06-24] MEDS: oxyCODONE 5 MG Tablet PO ×2 (11:45→20:16)
[2024-06-24] MEDS: Sucralfate 1 GM Tablet PO ×3 (11:45→21:17)
[2024-06-24] MEDS: DULoxetine Hcl 20 MG Capsule PO (11:45)
[2024-06-24] MEDS: Aspirin E.C. 81 MG Tablet PO (11:45)
[2024-06-24] MEDS: Acetaminophen 500 MG Tablet 1000 MG PO ×2 (13:54→21:20)
--- NOTE | 2024-06-24 15:32 | CASEMGMT ---
Social Work Dtr requested phone call from this worker to inquire about DC before . SW conversed with [employer]IST. Pt received an EGD today, pt was started on Flomax to assist with urinary retention, that needs to be taken fro 5-7 days before voiding trials can begin with gómez, and recommendations are for pt to remain until voiding trial outcomes are known. SW received update from PT/OT/ST. Pt is CGA for all tasks, aside from gómez management for LE care. Pt scored 38/50 on BCAT and being seen for swallowing. Though, pt has refused two OT sessions, and currently refused PT session d/t visitors, though BI LEAD will attempt session later in the day. Therapy recommending continued stay if pt will participate fully. KATELYN phoned dtr, Ro, to answer questions and provide update. KATELYN explained above with recommendations for continued stay for ongoing therapy and nursing needs. Explained the importance of participating in therapy and the insurance coverage. Dtr expressed understanding; appreciative of the explanation and will have a conversation with the pt. Dtr inquired about an YAHAIRA for 06/27, as that is their family celebration. Dtr stated she would be gone from 1030 to 1400. KATELYN explained the Dr will have to approve YAHAIRA, but both sessions of therapy would be given since pt is not going out on . Informed dtr that PT/OT would see pt prior to leaving or one session prior and one session after, cautioning that may be a big day for pt. Dtr appreciative of information and will speak with pt. KATELYN agreed to ask Dr for YAHAIRA if pt decides to go out. SW also to update therapy. KATELYN explained the POC meeting is scheduled for 06/28, which will provide updates and recommendations. [facility] insurance NRD 07/01, EDC 07/05. Dtr to follow up with pt and her to discuss. Dtr appreciative. SW will continue to follow. DONALD Ly
[2024-06-24] MEDS: Tamsulosin HCl 0.4 MG Capsule PO (17:03)
[2024-06-24 20:00] VITALS: PULSE 76; O2SAT 97
[2024-06-24] MEDS: Atorvastatin Calcium 20 MG Tablet PO (21:18)
[2024-06-24] MEDS: Nortriptyline 25 MG Capsule PO (21:19)
[2024-06-24] MEDS: MELATONIN 10 MG TABLET PO (21:19)
[2024-06-25] MEDS: Sucralfate 1 GM Tablet PO ×4 (05:11→21:40)
[2024-06-25] MEDS: Acetaminophen 500 MG Tablet 1000 MG PO ×3 (05:11→21:41)
[2024-06-25] MEDS: Enoxaparin 40 MG/0.4 ML Syringe SC (05:11)
[2024-06-25 08:00] VITALS: BMI 19.8
[2024-06-25] MEDS: Arthritis Pain Compound 60 CLICK TUBE TOPICAL ×2 (08:05→21:43)
[2024-06-25 08:06] VITALS: PULSE 64
[2024-06-25] MEDS: Gabapentin 300 MG Capsule PO ×2 (08:06→21:40)
[2024-06-25] MEDS: DULoxetine Hcl 20 MG Capsule PO (08:06)
[2024-06-25] MEDS: Metoprolol(XL)Succ 50 MG Tablet PO (08:06)
[2024-06-25] MEDS: Pantoprazole Sodium 40 MG Tablet PO (08:06)
[2024-06-25] MEDS: Menthol/Lanolin/Calamine/Znox 113 GM Tube 1 APPLIC TOPICAL (08:06)
[2024-06-25] MEDS: Aspirin E.C. 81 MG Tablet PO (08:06)
[2024-06-25] MEDS: Fluticasone/Salmeterol 232-14 Inhaler 1 PUFF INHALATION ×2 (08:06→21:43)
[2024-06-25 10:54] VITALS: BP 131/56; PULSE 64; RESP 16; TEMP 36.2; O2SAT 97
--- NOTE | 2024-06-25 12:52 | MDS.RN ---
Pain interview for mds completed.
--- NOTE | 2024-06-25 14:27 | CHAPLAIN ---
Type of Pastoral Visit _x__ Initial Visit ___ Follow-up Visit ___ On-call Visit ___ General Patient Visit ___ Spiritual Assessment ___ Family Conference ___ Bereavement ___ Rapid Response ___ Code Blue ___ Other (describe below) Pastoral Care Referral From _x__ Patient ___ Family ___ Nurse ___ Physician ___ Maintenance Manager ___ Insurance Inspector ___ Other (describe below) Sacrament/Intervention ___ Active listening ___ Anointing ___ Taoism ___ Bereavement ___ Communion ___ Cha exploration ___ ___ Life review _x__ Prayer ___ Reconciliation ___ Sacrament of Sick _x__ Supportive presence ___ Wedding ___ Other (describe below) Pastoral Comments patient had several family members in the room; pt was seen earlier in [facility] before surgery; pt is welcoming but says she is doing fine, has no worries, and would just like a prayer for now
--- NOTE | 2024-06-25 16:01 | CASEMGMT ---
Social Work SW completed BIMS () and PHQ-2 () for MDS assessment. Emily Ho, VARNISH COOKER STACK CLERK
[2024-06-25] MEDS: Tamsulosin HCl 0.4 MG Capsule PO (16:56)
--- NOTE | 2024-06-25 19:17 | NURSING ---
Patient c/o burning sensation to urethra after removal of gómez, reports it burn with urination and at rest. Patient states to this nurse, I don't think I can sleep with this pain. This nurse consulted Dr. Abad via telephone, new order to collect UA via straight catheter. This order read-back and verified.
[2024-06-25] MEDS: oxyCODONE 5 MG Tablet PO (19:33)
[2024-06-25 20:10] LABS: Mucous, Urine 0 SEEN /hpf (<or=2+); Squamous Epithelial Cells - UA 0 SEEN /hpf (5-10)
[2024-06-25 20:13] LABS: Color, Urine Yellow (Yellow); Glucose, Dipstick Normal (Normal); Ketone-Dipstick Negative (Negative); Leukocyte Esterase-Dipstick 500 /ul (Negative); Nitrite-Dipstick Positive (Negative); Occult Blood-Urine 25 /ul (Negative); Protein-Dipstick 15 mg/dl (Negative); Urine Bilirubin Dipstick Negative (Negative); Urine Clarity Sl. Cloudy (Clear); Urine Urobilinogen Normal (Normal); Urine pH 6.5 (5.0 - 8.0)
--- NOTE | 2024-06-25 20:17 | NURSING ---
St cath attempt for UA and C+S x3 using sterile technique each time. Perineum is mild to moderately swollen. Third time successful w/ immediate return of 400ml clear, yellow urine. No foul odor noted. Resident tolerated well. Specimen obtained and sent to lab for UA and C+S. Initially c/o burning at the end of urination then verbalized c/o s/p pain that resolved once cath complete. Will continue to monitor.
--- NOTE | 2024-06-25 20:55 | NURSING ---
Spoke with Dr. Abad regarding urinalysis results, new orders for 1,000mg Cefadroxil x1 dose NOW, and starting tomorrow, 06/26/24, 500mg cefadroxil BID SAMY. Telephone orders read-back and verified.
[2024-06-25 21:00] LABS: Bacteria RARE /hpf (None Seen); Red Blood Cells-Urine 0-5 SEEN /hpf (0-5); White Blood Cells 5-10 SEEN /hpf (0-5)
[2024-06-25] MEDS: Cefadroxil 500 MG CAPSULE 1000 MG PO (21:40)
[2024-06-25] MEDS: Atorvastatin Calcium 20 MG Tablet PO (21:41)
[2024-06-25] MEDS: MELATONIN 10 MG TABLET PO (21:42)
[2024-06-25] MEDS: Nortriptyline 25 MG Capsule PO (21:42)
[2024-06-25] MEDS: Senna/Docusate Sodium 1 Tablet 2 TABLET PO (21:42)
--- NOTE | 2024-06-25 22:21 | NURSING ---
Patient refusing straight catheter at this time for urine culture collection. This nurse will attempt at a later time.
[2024-06-26] MEDS: Sucralfate 1 GM Tablet PO ×4 (06:43→20:33)
[2024-06-26] MEDS: Acetaminophen 500 MG Tablet 1000 MG PO ×3 (06:43→20:34)
[2024-06-26] MEDS: Enoxaparin 40 MG/0.4 ML Syringe SC (06:43)
[2024-06-26 09:00] VITALS: BP 125/52; PULSE 68; O2SAT 96
[2024-06-26] MEDS: Arthritis Pain Compound 60 CLICK TUBE TOPICAL ×2 (09:02→20:32)
[2024-06-26] MEDS: DULoxetine Hcl 20 MG Capsule PO (09:02)
[2024-06-26] MEDS: Gabapentin 300 MG Capsule PO ×2 (09:03→20:33)
[2024-06-26] MEDS: Aspirin E.C. 81 MG Tablet PO (09:04)
[2024-06-26] MEDS: Pantoprazole Sodium 40 MG Tablet PO (09:04)
[2024-06-26 09:05] VITALS: PULSE 68
[2024-06-26] MEDS: Metoprolol(XL)Succ 50 MG Tablet PO (09:05)
[2024-06-26] MEDS: Cefadroxil 500 MG CAPSULE PO ×2 (09:05→20:33)
[2024-06-26] MEDS: Fluticasone/Salmeterol 232-14 Inhaler 1 PUFF INHALATION ×2 (09:06→20:33)
--- NOTE | 2024-06-26 10:09 | RAD_ITS ---
EXAM: XR ABDOMEN, 1 VIEW CLINICAL INDICATION: constipation TECHNIQUE: Frontal supine view of the abdomen/pelvis. COMPARISON: No relevant prior studies available. FINDINGS: LOWER THORAX: No acute pathology. GASTROINTESTINAL TRACT: Moderate fecal contents in the colon. No bowel obstruction. ORGANS: Unremarkable as visualized. No organomegaly. No abnormal calcifications. BONES/JOINTS: Bilateral metallic hip arthroplasties. Dextroscoliosis of the lumbar spine. Old compression fractures of the T11 and T12 vertebral bodies and L1 vertebral body. Mild old left lateral compression fracture of the upper L1 body. Old fracture of the left inferior pubic ramus. SOFT TISSUES: No acute pathology. RAD/Abdomen Single View IMPRESSION: Moderate fecal contents suggestive of constipation. Electronically Signed: Kashif Becker MD at 11:43 EST ,
[2024-06-26 16:00] VITALS: RESP 18; TEMP 37
[2024-06-26] MEDS: Tamsulosin HCl 0.4 MG Capsule PO (17:37)
[2024-06-26] MEDS: Menthol/Lanolin/Calamine/Znox 113 GM Tube 1 APPLIC TOPICAL (20:32)
[2024-06-26] MEDS: MELATONIN 10 MG TABLET PO (20:33)
[2024-06-26] MEDS: Atorvastatin Calcium 20 MG Tablet PO (20:33)
[2024-06-26] MEDS: Nortriptyline 25 MG Capsule PO (20:34)
[2024-06-26] MEDS: Senna/Docusate Sodium 1 Tablet 2 TABLET PO (20:34)
[2024-06-26] MEDS: oxyCODONE 5 MG Tablet PO (23:44)
--- NOTE | 2024-06-27 04:59 | NURSING ---
Resident c/o headache that extends from the rt occipital region to rt side f forehead. Rates pain at 6/10. Reported hx of migraines. Currently is taking scheduled Tylenol every 8 hours. Informs this nurse she takes Excedrin and Ibuprofen at home. Informed resident those medications would not be ordered while on unit and should not be taken at home d/t side effects. Refilled ice pack and given cool washcloth for forehead. Suggested turning volume down on TV and resident refuses. In no acute distress. Will continue to monitor.
[2024-06-27 05:37] LABS: Absolute Lymphocyte Count 1.63 X10^3/uL (0.83-4.51); Absolute Neutrophil Count 1.8 X10^3/uL (2.0-7.7); Basophil# 0.03 X10^3/uL; Basophil% 0.7 % (0-1); Eosinophil# 0.39 X10^3/uL; Eosinophils% 8.6 % (0-5); Hematocrit 31.2 % (37-47); Hemoglobin 9.9 g/dL (12.0-15.0); Lymphocyte # 1.63 X10^3/ul (0.83-4.51); Lymphocyte % 36.1 % (19-41); Mean Corp Hgb Conc 31.7 g/dL (32-36); Mean Corpuscular Hgb 30.5 pg (27.0-32.0); Mean Platelet Vol. 8.6 fl (6.2-12.0); Monocyte# 0.63 X10^3/uL; Monocyte% 13.9 % (0-10); NRBC Flagged by Analyzer 0 % (0-5); Neutrophil # 1.82 X10^3/uL (2.7-7.7); Neutrophil % 40.3 % (47-70); Platelet Count 315 K/mm3 (150-450); RBC Distribution Width CV 13.3 % (11.6-14.6); RBC Distribution Width SD 47.2 fl (35.1-43.9); Red Blood Count 3.25 M/mm3 (4.2-5.4); White Blood Count 4.5 K/mm3 (4.4-11.0)
[2024-06-27] MEDS: Enoxaparin 40 MG/0.4 ML Syringe SC (05:44)
[2024-06-27] MEDS: Sucralfate 1 GM Tablet PO ×4 (05:44→21:49)
[2024-06-27] MEDS: Acetaminophen 500 MG Tablet 1000 MG PO ×2 (05:44→21:50)
[2024-06-27 05:58] LABS: Anion Gap 2 (5-15); BUN 30 mg/dL (7-18); BUN/Creat Ratio 35.7 RATIO (10-20); Calcium,Total 9.3 mg/dL (8.5-10.1); Chloride 105 mmol/L (98-107); Creatinine, Serum 0.84 mg/dL (0.55-1.02); EST Glomerular Filtration Rate 69 mL/min (>60); Est Glom Filt Rate - Afr Amer 83 mL/min (>60); Estimated Creatinine Clearance 42.63 ml/min; Glucose 98 mg/dL (74-106); Sodium Level 138 mmol/L (136-145)
--- NOTE | 2024-06-27 06:47 | NURSING ---
Pt. bladder scanned this AM for 427cc after voiding. This is pt. third failed attempt at voiding and prompts gómez catheter insertion. When entering pt. room with gómez catheter kit and informing pt. of why gómez should be inserted, pt. refused gómez insertion, stating she doesn't want gómez to be inserted until after her YAHAIRA today.
--- NOTE | 2024-06-27 07:59 | NURSING ---
Resident completes an unassisted transfer from the bathroom to sink. Instructed resident she needs to call for staff assist and states, I am capable of doing this myself. Assisted back to bed. Alarms in use. Call light w/ in reach. Will continue to monitor.
--- NOTE | 2024-06-27 08:12 | NURSING ---
Spoke w/ resident this am re: high PVR. Informed resident a gómez cath will need to be inserted since she has had two previous st cath attempts for elevated PVRs post gómez removal. Resident refuses gómez at this time d/t scheduled YAHAIRA w/ family from 10a-2p. Strongly encouraged and educated on the importance of gómez insertion to prevent infection (hx of chronic UTIs) and/or worsening retention while away from the unit causing discomfort. Resident continues to refuse at this time. Staff to report to oncoming nurse and continue to monitor.
[2024-06-27 10:00] VITALS: PULSE 60; RESP 16
[2024-06-27] MEDS: Pantoprazole Sodium 40 MG Tablet PO (10:04)
[2024-06-27] MEDS: Senna/Docusate Sodium 1 Tablet 2 TABLET PO ×2 (10:04→21:49)
[2024-06-27] MEDS: Aspirin E.C. 81 MG Tablet PO (10:05)
[2024-06-27] MEDS: DULoxetine Hcl 20 MG Capsule PO (10:05)
[2024-06-27] MEDS: Cefadroxil 500 MG CAPSULE PO ×2 (10:05→21:49)
[2024-06-27] MEDS: Arthritis Pain Compound 60 CLICK TUBE TOPICAL ×2 (10:06→21:49)
[2024-06-27] MEDS: Fluticasone/Salmeterol 232-14 Inhaler 1 PUFF INHALATION ×2 (10:06→21:49)
[2024-06-27] MEDS: Gabapentin 300 MG Capsule PO ×2 (10:08→21:50)
[2024-06-27 10:10] VITALS: BP 132/62; PULSE 60
[2024-06-27] MEDS: Metoprolol(XL)Succ 50 MG Tablet PO (10:10)
[2024-06-27] MEDS: Tuberculin,Purif.prot.deriv. 50 TU/ML Vial 0.1 ML ID (17:19)
[2024-06-27] MEDS: Tamsulosin HCl 0.4 MG Capsule PO (17:19)
[2024-06-27] MEDS: Nortriptyline 25 MG Capsule PO (21:49)
[2024-06-27] MEDS: MELATONIN 10 MG TABLET PO (21:50)
[2024-06-27] MEDS: Atorvastatin Calcium 20 MG Tablet PO (21:50)
--- NOTE | 2024-06-27 21:56 | NURSING ---
Educated on bladder scans, toileting and bladder scan offered at this time. Patient refuses at this time despite education
[2024-06-28] MEDS: Sucralfate 1 GM Tablet PO ×4 (06:19→21:20)
[2024-06-28] MEDS: Acetaminophen 500 MG Tablet 1000 MG PO ×3 (06:19→21:20)
[2024-06-28] MEDS: Enoxaparin 40 MG/0.4 ML Syringe SC (06:19)
[2024-06-28 08:00] VITALS: BP 133/55; PULSE 65; RESP 18; TEMP 36.3; O2SAT 93
[2024-06-28 08:27] VITALS: BP 133/55; PULSE 65
[2024-06-28] MEDS: Senna/Docusate Sodium 1 Tablet 2 TABLET PO ×2 (08:27→21:19)
[2024-06-28] MEDS: Metoprolol(XL)Succ 50 MG Tablet PO (08:27)
[2024-06-28] MEDS: Cefadroxil 500 MG CAPSULE PO (08:27)
[2024-06-28] MEDS: Fluticasone/Salmeterol 232-14 Inhaler 1 PUFF INHALATION ×2 (08:27→21:19)
[2024-06-28] MEDS: Arthritis Pain Compound 60 CLICK TUBE TOPICAL ×2 (08:27→21:20)
[2024-06-28] MEDS: Aspirin E.C. 81 MG Tablet PO (08:27)
[2024-06-28] MEDS: DULoxetine Hcl 20 MG Capsule PO (08:27)
[2024-06-28] MEDS: Pantoprazole Sodium 40 MG Tablet PO (08:28)
[2024-06-28] MEDS: Menthol/Lanolin/Calamine/Znox 113 GM Tube 1 APPLIC TOPICAL ×2 (08:28→21:21)
[2024-06-28] MEDS: Gabapentin 300 MG Capsule PO ×2 (08:28→21:20)
--- NOTE | 2024-06-28 08:37 | NURSING ---
Shopper Note; MDS for 08/27/2023 Complete
--- NOTE | 2024-06-28 12:28 | CASEMGMT ---
Plan of care meeting held with pt, pt's spouse and pt daughter present. PT/OT/ST discussed pt progress with therapy. PT did go on YAHAIRA with family yesterday and pt and family both confirm that this went well and pt was able to function well at home. KATELYN provided update on [employer] and that NRD is 07/01 with EDC of 07/07. Pt and dgt voicing frustration as they do not feel pt should have to stay in TCU that long. KATELYN educated pt and family that they can discharge prior to the time insurance issues a notice of non coverage if pt and family are ready. Pt cathater was removed on 06/25 and pt has been completing a voiding trial since this time. Pt dgt requesting to obtained further information regarding outcome of the voiding trial to determine what the course of care is for bladder issues prior to setting a discharge date. KATELYN updated physician and requested physician speak with pt's dgt. SARAI oCrral
--- NOTE | 2024-06-28 12:45 | NURSING ---
Patient left floor at this time with daughter for appointment with [facility].
--- NOTE | 2024-06-28 13:57 | NURSING ---
Called received from [facility]. New order 1) Losartan 50mg- 1 tab po daily. Order read back and verified. Family and resident aware.
--- NOTE | 2024-06-28 14:00 | NURSING ---
Patient returned from appointment at this time.
--- NOTE | 2024-06-28 14:38 | NURSING ---
Patient bladder scanned prior to toileting. 309ml noted. Patient stated she would try to use the bathroom after therapy, but she wanted to take a nap right now. Voiding trials continue.
--- NOTE | 2024-06-28 16:25 | RAD_ITS ---
INDICATION: constipation/urine retention EXAMINATION/TECHNIQUE: X-RAY - XR Abdomen 1 View COMPARISON: None FINDINGS: BOWEL GAS PATTERN: Non-obstructive. Moderate amount of fecal retention. FREE AIR: Not assessed on a single supine view. ORGANOMEGALY: Not seen. CALCIFICATIONS: No abnormal calcifications observed. LOWER CHEST: No acute pathology. BONES AND SOFT TISSUES: No acute pathology. Severe degenerative changes. Dextroscoliosis. Bilateral hip replacements. RAD/Abdomen Single View IMPRESSION: Non-obstructive bowel gas pattern. Moderate amount of fecal retention. Electronically Signed: Tod Valles MD at 17:33 EST ,
[2024-06-28] MEDS: Tamsulosin HCl 0.4 MG Capsule PO (17:02)
--- NOTE | 2024-06-28 17:13 | NURSING ---
Patient assisted with toileting and then bladder scanned. Noted after tolieting with 256ml residual. Continue voiding trials.
[2024-06-28 20:00] VITALS: PULSE 62; RESP 18; O2SAT 98
--- NOTE | 2024-06-28 20:00 | NURSING ---
Mag citrate offered as ordered for constipation, patient declines despite education. Maybe tomorrow
[2024-06-28] MEDS: Nortriptyline 25 MG Capsule PO (21:20)
[2024-06-28] MEDS: Atorvastatin Calcium 20 MG Tablet PO (21:20)
[2024-06-28] MEDS: MELATONIN 3 MG TABLET PO (21:25)
[2024-06-29] MEDS: Enoxaparin 40 MG/0.4 ML Syringe SC (06:12)
[2024-06-29] MEDS: Acetaminophen 500 MG Tablet 1000 MG PO ×3 (06:12→20:00)
[2024-06-29] MEDS: Sucralfate 1 GM Tablet PO ×4 (06:12→20:00)
[2024-06-29] MEDS: oxyCODONE 5 MG Tablet PO ×2 (06:46→11:01)
[2024-06-29] MEDS: Magnesium Citrate 300 ML PO (08:08)
[2024-06-29] MEDS: Losartan Potassium 50 MG Tablet PO (08:08)
[2024-06-29] MEDS: Arthritis Pain Compound 60 CLICK TUBE TOPICAL ×2 (08:08→20:01)
[2024-06-29] MEDS: Menthol/Lanolin/Calamine/Znox 113 GM Tube 1 APPLIC TOPICAL ×2 (08:08→20:01)
[2024-06-29] MEDS: Aspirin E.C. 81 MG Tablet PO (08:09)
[2024-06-29] MEDS: Gabapentin 300 MG Capsule PO ×2 (08:09→20:09)
[2024-06-29] MEDS: DULoxetine Hcl 20 MG Capsule PO (08:09)
[2024-06-29] MEDS: Fluticasone/Salmeterol 232-14 Inhaler 1 PUFF INHALATION ×2 (08:09→20:05)
[2024-06-29] MEDS: Senna/Docusate Sodium 1 Tablet 2 TABLET PO ×2 (08:09→20:03)
[2024-06-29] MEDS: Pantoprazole Sodium 40 MG Tablet PO (08:09)
[2024-06-29 08:10] VITALS: PULSE 72
[2024-06-29] MEDS: Metoprolol(XL)Succ 50 MG Tablet PO (08:10)
[2024-06-29] MEDS: Ondansetron ODT 4 MG Tablet 8 MG PO (09:04)
--- NOTE | 2024-06-29 09:34 | PN_ITS ---
Subjective Subjective Asked by nursing to see this patient and discussed urine retention and need for Yepez catheter. Has failed voiding trials. Postvoid residual yesterday was 256. It was 427 on 06/27/2024. Denies dysuria, night sweats, shaking chills, flank pain, nausea. Admits to frequently being constipated. The last bowel movement that I see was on 06/23/2024 after review of the EMR. She is on senna 2 tablets twice daily. She is on several constipating medications which include Cymbalta, nortriptyline, oxycodone and Carafate. She was started on Flomax on 06/20/2024. Denies lightheadedness. UA on 06/25/2024 was positive for nitrite and had 0-5 RBCs and 5-10 WBCs. There was rare bacteria. It was a clean-catch urine rather than a straight cath. The Urine culture grew less than 1000 colonies of a gram-negative salazar lactose senior data quality analyst and less than 1000 colonies of a gram-positive coccus, possibly Enterococcus. She is asymptomatic and growth on the urine culture is minimal so no indication to treat for urinary tract infection at this time. She has been afebrile. White blood cell count on 06/27/2024 was 4.5 with an unremarkable differential. Hemoglobin is stable at 9.9. KUB was obtained yesterday and shows a large fecal burden throughout the colon. She was given Mag Citrate today and chugged the first glass but, the second is still sitting there. I explained about the constipation and that this is likely contributing significantly to urine retention. Objective Data Objective Data Vital Signs: Vital Signs Temp Pulse Resp BP Pulse Ox O2 Del Method 97.4 F L 72 18 133/55 H 98 Room Air 06/28/24 08:00 06/29/24 08:10 06/28/24 20:00 06/28/24 08:27 06/28/24 20:00 06/28/24 20:00 Oxygen Delivery Method Room Air Weight: 119 lb 6.4 oz Body Mass Index (BMI) 19.8 Intake & Output: Intake and Output for Last 24 Hours 06/27/24 06/28/24 06/29/24 23:59 23:59 23:59 Intake Total 240 / 240 600 / 600 120 / 120 Output Total 500 / 756 1656 / 1656 Balance -260 / -516 -1056 / -1056 120 / 120 Lab / Micro Data 06/27/24 05:14 06/27/24 05:14 Micro: Microbiology 06/26/24 02:45 Urine, Clean Catch Urine Culture - Final GNR lactose senior data quality analyst GPC Poss Enterococcus sp 06/24/24 12:50 Nasal Secretion SARS-CoV-2 Antigen (Rapid) - Final Radiography Diagnostic Testing: Radiology Impression KUB X-Ray 06/28/24 16:25 IMPRESSION: Non-obstructive bowel gas pattern. Moderate amount of fecal retention. Electronically Signed: Tod Valles MD at 17:33 EST , Physical Exam Const alert, oriented x3 and no apparent distress General Appearance: cooperative HEENT Mouth: dry mucous membranes Resp normal respiratory effort Effort and Inspection: Negative for tachypneic or labored GI GI Narrative: The abdomen is soft with normal bowel sounds heard in all quadrants. She had no guarding with palpation. No suprapubic pain with palpation. No masses. No costovertebral angle tenderness. Nondistended. Extremity no calf tenderness General Extremity: Negative for edema Assessment & Plan Assessment/Plan (1) Urinary retention: (2) Obstipation: PLAN: Plan 1. Discussed with pt. Will give 10 mg of Dulcolax p.o. now and give a suppository at 4 PM. 2. Add MiraLAX 17 g twice daily to the current drug regimen. Continue senna 2 tablets twice daily. 3. Continue to check postvoid residuals once daily Charges/Coding Visit Charges Inpatient E&M: 99881 [facility] L1
[2024-06-29] MEDS: Bisacodyl 5 MG Tablet 10 MG PO (10:54)
--- NOTE | 2024-06-29 11:04 | NURSING ---
This nurse entered pt. room to administer scheduled medication, while in pt. room pt. stated she had some concerns regarding the the stool softeners she has been given due to her constipation. The pt. expressed how she has little control over her bowels and when I have to go, I have to go and informed this nurse she would like her alarms removed that way she could take herself to the bathroom in a timely manner. This nurse informed pt. on importance of alarms and the protocol at which we have alarms in place for. Pt. understanding of why alarms are in place but continues to state she will not be waiting for staff when she has to go to the restroom. Pt. stated she will use her call button but will also be taking herself to the bathroom at such time to avoid making a mess. This nurse provided additional teaching to pt. on importance of using call button and waiting assistance to avoid possible injury or fall, pt. continues to state she will not wait.
[2024-06-29 11:12] VITALS: BP 148/53; PULSE 72; RESP 16; TEMP 36.3; O2SAT 98
[2024-06-29] MEDS: Tamsulosin HCl 0.4 MG Capsule PO (16:30)
[2024-06-29] MEDS: Atorvastatin Calcium 20 MG Tablet PO (20:02)
[2024-06-29] MEDS: Nortriptyline 25 MG Capsule PO (20:03)
[2024-06-29] MEDS: MELATONIN 3 MG TABLET PO (20:09)
[2024-06-29] MEDS: Polyethylene Glycol 3350 17 GM PACKET PO (20:10)
[2024-06-29 22:00] VITALS: RESP 16
[2024-06-30] MEDS: Acetaminophen 500 MG Tablet 1000 MG PO ×3 (05:49→21:11)
[2024-06-30] MEDS: Sucralfate 1 GM Tablet PO ×4 (05:49→21:12)
[2024-06-30] MEDS: Enoxaparin 40 MG/0.4 ML Syringe SC (05:49)
[2024-06-30] MEDS: Bisacodyl 10 MG Suppository RC (06:57)
[2024-06-30 08:48] VITALS: PULSE 66
[2024-06-30] MEDS: Aspirin E.C. 81 MG Tablet PO (08:48)
[2024-06-30] MEDS: DULoxetine Hcl 20 MG Capsule PO (08:48)
[2024-06-30] MEDS: Metoprolol(XL)Succ 50 MG Tablet PO (08:48)
[2024-06-30] MEDS: Fluticasone/Salmeterol 232-14 Inhaler 1 PUFF INHALATION ×2 (08:48→21:11)
[2024-06-30] MEDS: Senna/Docusate Sodium 1 Tablet 2 TABLET PO ×2 (08:48→21:12)
[2024-06-30] MEDS: Menthol/Lanolin/Calamine/Znox 113 GM Tube 1 APPLIC TOPICAL ×2 (08:48→21:13)
[2024-06-30] MEDS: Gabapentin 300 MG Capsule PO ×2 (08:48→21:10)
[2024-06-30] MEDS: Losartan Potassium 50 MG Tablet PO (08:48)
[2024-06-30] MEDS: Arthritis Pain Compound 60 CLICK TUBE TOPICAL ×2 (08:48→21:11)
[2024-06-30] MEDS: Polyethylene Glycol 3350 17 GM PACKET PO ×2 (08:48→21:11)
[2024-06-30] MEDS: Pantoprazole Sodium 40 MG Tablet PO (08:48)
[2024-06-30 10:15] VITALS: BP 121/48; PULSE 66; RESP 16; TEMP 36.4; O2SAT 97
--- NOTE | 2024-06-30 13:33 | NURSING ---
Pt. daughter asked this nurse if she would be able to walk pt. in patel. This nurse informed daughter that for her to transfer and ambulate pt. it has to be cleared by therapy first. This nurse informed daughter that therapy has not cleared daughter and staff must assist pt. with all transfers and ambulation. Shortly after this conversation this nurse heard pt. bed alarm going off. Once reaching room this nurse observed pt. daughter walking pt. to bathroom. Education was provided to daughter and pt. on how staff must be present for all transfers and ambulation. This nurse reminded pt. to pull cord when she was done in the restroom. This nurse went back in pt. room to check on pt. as it had been several minutes pt. had spent in the bathroom. As this nurse entered room pt. was found to be standing at the sink brushing her teeth with daughter standing behind her. At this time no call light had been pulled and pt. did not wring for staff assist or wait for help. Further education provided on importance of call light use and waiting for assistance to avoid possible fall and or injury. This nurse assisted pt. the rest of way back to bed, administered pt. scheduled medication, and left pt. sitting up in bed with call light in reach.
[2024-06-30] MEDS: Tamsulosin HCl 0.4 MG Capsule PO (16:29)
[2024-06-30] MEDS: Magnesium Citrate 300 ML PO (20:18)
[2024-06-30] MEDS: Nortriptyline 25 MG Capsule PO (21:12)
[2024-06-30] MEDS: Atorvastatin Calcium 20 MG Tablet PO (21:12)
[2024-06-30] MEDS: MELATONIN 3 MG TABLET PO (21:17)
[2024-06-30 21:18] VITALS: PULSE 64; RESP 16; O2SAT 96
--- NOTE | 2024-06-30 21:24 | NURSING ---
refuses immobilizer to LLE per order despite education, states I don't need it anymore
[2024-07-01] MEDS: Acetaminophen 500 MG Tablet 1000 MG PO ×3 (06:05→21:05)
[2024-07-01] MEDS: Sucralfate 1 GM Tablet PO ×4 (06:05→21:05)
[2024-07-01] MEDS: Enoxaparin 40 MG/0.4 ML Syringe SC (06:05)
[2024-07-01] MEDS: Menthol/Lanolin/Calamine/Znox 113 GM Tube 1 APPLIC TOPICAL ×2 (08:54→21:05)
[2024-07-01] MEDS: Arthritis Pain Compound 60 CLICK TUBE TOPICAL ×2 (08:54→21:05)
[2024-07-01] MEDS: Fluticasone/Salmeterol 232-14 Inhaler 1 PUFF INHALATION ×2 (08:56→21:05)
[2024-07-01] MEDS: Losartan Potassium 50 MG Tablet PO (08:56)
[2024-07-01] MEDS: Aspirin E.C. 81 MG Tablet PO (08:56)
[2024-07-01] MEDS: DULoxetine Hcl 20 MG Capsule PO (08:56)
[2024-07-01] MEDS: Pantoprazole Sodium 40 MG Tablet PO (08:57)
[2024-07-01 08:58] VITALS: BP 118/67; PULSE 74
[2024-07-01] MEDS: Metoprolol(XL)Succ 50 MG Tablet PO (08:58)
[2024-07-01] MEDS: Senna/Docusate Sodium 1 Tablet 2 TABLET PO ×2 (08:58→21:05)
[2024-07-01] MEDS: Gabapentin 300 MG Capsule PO (09:01)
[2024-07-01 09:07] VITALS: BP 118/67; PULSE 74; O2SAT 95
--- NOTE | 2024-07-01 10:00 | CASEMGMT ---
Social Work SW received call from dtr inquiring about pt's readiness to DC. SW spoke with nurse and Dr and pt has not been straight cathed since 06/27. Pt has cleared her bowels, and is only minimally retaining urine. Dr is agreeable to have pt DC. SW updated dtr and offered DC 07/02. Dtr agreeable. SW recommending [facility] PT/OT/ST/SN and offered to provide dtr with list of agencies that include quality and resource data via [employer] Guide. Dtr requested link sent via email - provided email. SW sent via [employer] link. Dtr denied any DME needs. Dtr and to transport. IDT updated. Plan: DC home with 07/02, [facility] PT/OT/ST/SN DONALD Ly
--- NOTE | 2024-07-01 10:16 | MDS.RN ---
Information for the MDS was obtained from review of the clinical record, interview of resident, staff, and direct observation of resident?s care.
[2024-07-01 10:38] VITALS: RESP 14; TEMP 35.7
--- NOTE | 2024-07-01 11:15 | CASEMGMT ---
Social Work SW completed BIMS () and PHQ-2 () for MDS assessment. SW confirmed with pt DC 07/02 home with [facility]. Dtr will select C agency and this worker will place referral. Pt appreciative. Emily Ho, AERODYNAMICS TEACHER DRIVER TRAINER
--- NOTE | 2024-07-01 11:20 | NURSING ---
PT REFUSES TO WEAR HER IMMOBILIZER TO LT KNEE/LEG. PT BLADDER SCANNED FOR 572. ASKED PT IF SHE HAS VOIDED RECENTLY,PT STATED NO. PT AGREED TO GET UP TO USE BATHROOM. PT THEN BLADDER SCANNED FOR 452. EXPLAINED TO PT ORDER TO STRAIGHT CATH FOR OVER 350. PT REFUSED AND STATED I WILL TRY AGAIN LATER AND THEN WE WILL SEE. RN AWARE
--- NOTE | 2024-07-01 11:51 | DCINST_ITS ---
Discharge Instructions Diet Discharge Diet: - (Low-fat) DC O2, CPAP, BIPAP needs Home O2 Discharge instructions: No Dressing / Incision Discharge Activity: May Not Drive, May Shower and Use Walker Weight Bearing Status: Full weight bearing Dressing / Incision Call your doctor if you observe: Fever of 101 or Higher, Inability to urinate, Inability to have a bowel movement, Shortness of breath, Fainting spells, Chest pain, Increased palpitations (irregular heartbeat), Calf discomfort and Uncontrolled pain Follow Up Care Please Follow Up With: urology When: call urology for an appt to follow up for urine retention. Also follow up with PCP within 1 week. He will also need to follow-up with your PCP. Test Results: Test results from this visit will be discussed in further detail at your follow- up appointment, if applicable. Pending Tests Upon Discharge: none Discharge Plan Admission Admit Date/Time: 06/19/24 20:30 Primary Reason for Your Visit: debiity with multiple falls. Attending Provider: Ken Scott Chi Primary Care Provider: Franc Lau Instructions Patient Instructions: Urinary Tract Infections in Women, UTIs Understanding Additional Instructions / Restrictions: 1. You need to go to the restroom and try to empty your bladder every 2-3 hours. Sometimes you are retaining over 300 cc in the bladder after urination and at other times you are not retaining > 300 cc's. Generally when you retain over 300 cc's after urinating we put in a Yepez catheter. Urine retention can lead to urinary tract infections and if it is bad enough to kidney failure. You are not retaining so much that I think you will go into kidney failure. The urine retention has improved with getting her bowels moving better. I would continue with stool softeners daily and if you do not have a bowel movement for 3 days then you will need to take a laxative. Constipation is a frequent cause of urine retention in women. On your most recent urine analysis you had a few white blood cells and a few bacteria but you have no fever and your white blood cell count is normal. This is what we call asymptomatic bacteriuria. There is no need to be on antibiotics for this. Frequent antibiotics for asymptomatic bacteriuria can lead to development of antibiotic resistant bacteria and then if you do have a true urinary tract infection with burning, fever, chills, night sweats and elevated white blood cell count it would be very difficult to treat. 2. Make sure to drink at least a quart and a half of fluids every day. 3. You will need to continue to follow up with a urologist post discharge from TCU. 4. You had severe constipation. I am discharging you home with prescriptions for stool softeners. You will need to take these daily. If you are having more than 2 BM's a day call you PCP for advice on decreasing the stool softeners. 5. You take a drug called nortriptyline 25 mg at bedtime for nerve pain. This drug causes urine retention and constipation. Cymbalta, Oxycodone and Gabapentin also cause constipation. We discontinued the nortriptyline at bedtime in hopes that the urine retention will improve. Gabapentin not only causes constipation and it also causes increased sleepiness, lightheadedness and increased falls. 300 mg 3 times a day as a large dose for a woman of your age and size. You have been sleeping most of the day and the night while on the transitional care unit. Review of your chart says you take this medication for nerve pain. We have been decreasing the dose and I am sending you home with a prescription for 100 mg twice a day. If in 2 weeks on the 100 mg dose you have no nerve pain I would discontinue this medication. 6. Your urine was checked twice while you are on the transitional care unit. The first time the urine was checked you had a few white blood cells but had less than 1000 colonies of bacteria grow on the urine culture and this is not consistent with infection. On July 01 you developed burning with urination and we performed a straight catheterization and you had greater than 100 white blood cells per high-power field and a lot of bacteria. You have been placed on an antibiotic called Augmentin and you will take 1 tablet 3 times daily for 10 days. Since we were able to improve the constipation and you are now having more regular bowel movements the urine retention is usually less than 300 cc daily. An occasional postvoid residual is over 300. I do not feel that you are capable of performing a straight cath at this time due to increased drowsiness and some confusion. Hopefully discontinuing nortriptyline and decreasing the gabapentin will help with the urine retention. I recommend that you follow-up with the urologist soon after discharge from the hospital. 7. I was told at 1 time you were using Premarin vaginal cream to restore the integrity of the lining of the urogenital tract. I would discuss this with your urologist and restart if the urologist agrees. Discharge Orders/Prescriptions Prescriptions: New melatonin 3 mg Tablet 3 mg PO QHS Qty: 30 0RF sennosides-docusate sodium [Stimulant Laxative Plus] 8.6-50 mg Tablet 2 tab PO BID Qty: 120 0RF acetaminophen 500 mg Tablet 1,000 mg PO Q8 Qty: 180 0RF tamsulosin 0.4 mg Capsule 0.4 mg PO DAILY@1730 Qty: 30 0RF gabapentin 100 mg capsule 100 mg PO BID Qty: 28 0RF fluticasone propion-salmeterol 232-14 mcg/actuation Aerosol Powdr Breath Activated 1 inh inhalation Q12 Qty: 1 0RF polyethylene glycol 3350 [Miralax] 17 gram/dose powder 17 g PO BID Qty: 850 0RF amoxicillin-pot clavulanate [Augmentin] 500-125 mg tablet 1 tab PO TID Qty: 27 0RF Continued metoprolol succinate 50 mg tablet extended release 24 hr 50 mg PO QDAY duloxetine 20 mg capsule,delayed release(DR/EC) 20 mg PO DAILY atorvastatin 20 mg tablet 20 mg PO QDAY aspirin [Adult Aspirin Regimen] 81 mg tablet,delayed release (DR/EC) 81 mg PO QDAY pantoprazole 40 mg tablet,delayed release (DR/EC) 40 mg PO QDAY losartan 50 mg tablet 50 mg PO QDAY Qty: 90 3RF sucralfate 1 gram Tablet 1 g PO 1HR_ACHS 30 Days Qty: 120 1RF oxycodone 5 mg tablet 5 mg PO Q6H PRN (Reason: pain) 7 Days Qty: 10 0RF Discontinued nortriptyline 25 mg capsule 25 mg PO QHS ipratropium-albuterol 0.5 mg-3 mg(2.5 mg base)/3 mL solution for nebulization 3 ml inhalation Q4H PRN (Reason: shortness of breath or wheezing) gabapentin 300 mg capsule 300 mg PO TID 14 Days Qty: 42 0RF Referrals / Follow Up: Franc Lau MD [Primary Care Provider] - Disposition Disposition (needs filled in before D/C Order can be placed): Home Health Service
--- NOTE | 2024-07-01 13:20 | NURSING ---
PT USED BATHROOM AND THEN WAS BLADDER SCANNED FOR 295. CONTINUE VOIDING TRAILS.
--- NOTE | 2024-07-01 15:52 | NURSING ---
PT COMPLAINING OF BURNING WITH URINATION. NOTIFIED, NEW ORDER FOR A UA. PT DAUGHTER ALSO HAD QUESTIONS AND STATED THAT HER SISTER TALKED TO THE PT FILM SOUND COORDINATOR AND WANTED THE PT TO STRAIGHT CATH HER SELF AT HOME AND WANTED US TO GET ORDER FROM OUR DR. THIS NURSE STATED SHE WILL LET DR. LOW KNOW. TALKING WITH PT DAUGHTER. RN AWARE
[2024-07-01 16:48] LABS: Color, Urine Straw (Yellow); Glucose, Dipstick Normal (Normal); Ketone-Dipstick Negative (Negative); Leukocyte Esterase-Dipstick 500 /ul (Negative); Mucous, Urine 0 SEEN /hpf (<or=2+); Nitrite-Dipstick Negative (Negative); Occult Blood-Urine 50 /ul (Negative); Protein-Dipstick 30 mg/dl (Negative); Red Blood Cells-Urine 0 SEEN /hpf (0-5); Squamous Epithelial Cells - UA 0 SEEN /hpf (5-10); Urine Bilirubin Dipstick Negative (Negative); Urine Clarity Sl. Cloudy (Clear); Urine Urobilinogen Normal (Normal)
[2024-07-01 17:09] LABS: White Blood Cells >100 SEEN /hpf (0-5)
[2024-07-01 17:10] LABS: Bacteria 4+ /hpf (None Seen); Transitional Epithelial - Ur 0-5 SEEN /hpf (0-5)
[2024-07-01] MEDS: Tamsulosin HCl 0.4 MG Capsule PO (17:39)
--- NOTE | 2024-07-01 17:42 | NURSING ---
PT HAS UTI,NEW ORDER FOR AUGMENTIN 500MG. NEW ORDER FOR URINE CULTURE. RN AWARE
--- NOTE | 2024-07-01 17:42 | PCM.DC.SUM ---
Providers Date of Admission: 06/19/24 Date of Discharge: 07/02/24 Primary Care Physician: Franc Lau MD Reason For Visit: LEFT KNEE, NON SURGICAL Diagnosis Discharge Diagnosis (1) Debility: Status: Acute Code(s): R53.81 - Other malaise (2) Multiple falls: Status: Acute Code(s): R29.6 - Repeated falls Plan: She was taking Pamelor 25 mg at bedtime, gabapentin 300 mg 3 times daily and oxycodone. She has been very somnolent on TCU and somewhat obtunded. Pamelor was discontinued as it is likely contributing to urine retention. Gabapentin was decreased to 100 mg twice daily and she is taking an occasional oxycodone only. (3) Effusion, left knee: Status: Acute Code(s): M25.462 - Effusion, left knee (4) Left knee pain: Status: Acute Code(s): M25.562 - Pain in left knee Qualifiers: Chronicity: acute Qualified Code(s): M25.562 - Pain in left knee (5) Acute cystitis: Status: Acute Code(s): N30.00 - Acute cystitis without hematuria Qualifiers: Hematuria presence: without hematuria Qualified Code(s): N30.00 - Acute cystitis without hematuria Plan: Diagnosed on 07/01/2024. Urine had greater than 100 WBCs with 4+ bacteria. The last urine culture she had was in March and she grew Acinetobacter Radioresistens and Enterococcus faecalis and both were sensitive to Augmentin. She had a urine culture on 06/26/2024 that was a clean-catch and there was less than 1000 colonies on culture and this was not considered infectious. (6) Gastric ulcer: Status: Acute Code(s): K25.9 - Gastric ulcer, unspecified as acute or chronic, without hemorrhage or perforation Qualifiers: Gastric ulcer chronicity: chronic Gastric ulcer complication status: without hemorrhage or perforation Qualified Code(s): K25.7 - Chronic gastric ulcer without hemorrhage or perforation Plan: Pathology report was negative for H. pylori and positive for chronic and acute inflammation. No malignant cells were seen. (7) Urinary retention: Status: Chronic Code(s): R33.9 - Retention of urine, unspecified Plan: I suspect at least some of the urine retention is due to medications. Pamelor was discontinued. (8) Obstipation: Status: Chronic Code(s): K59.00 - Constipation, unspecified Plan: Multiple medications causing constipation. Pamelor was discontinued and gabapentin was decreased to 100 mg twice daily. She will need to continue sucralfate for peptic ulcer disease along with a PPI. She rarely requests an oxycodone now. She is on 2 stool softeners now. (9) Esophageal dysmotility: Status: Chronic Code(s): K22.4 - Dyskinesia of esophagus Plan: Will need follow-up with Dr. Bonilla postdischarge from TCU. Plan 1. Discussed with pt. Will give 10 mg of Dulcolax p.o. now and give a suppository at 4 PM. 2. Add MiraLAX 17 g twice daily to the current drug regimen. Continue senna 2 tablets twice daily. 3. Continue to check postvoid residuals once daily 4. Started on Augmentin 500 mg 3 times daily x 10 days for acute cystitis. Medications at Discharge Home Medications aspirin 81 mg tablet,delayed release (Adult Aspirin Regimen) 81 mg PO QDAY blood thinner 05/06/24 atorvastatin 20 mg tablet 20 mg PO QDAY cholesterol 05/06/24 duloxetine 20 mg capsule,delayed release 20 mg PO DAILY mood 05/06/24 metoprolol succinate 50 mg tablet,extended release 24 hr 50 mg PO QDAY blood pressure 05/06/24 pantoprazole 40 mg tablet,delayed release 40 mg PO QDAY GERD 05/22/24 losartan 50 mg tablet 50 mg PO QDAY #90 tabs 06/28/24 acetaminophen 500 mg tablet 1,000 mg (2 x 500 mg) PO Q8 #180 tabs 07/01/24 amoxicillin 500 mg-potassium clavulanate 125 mg tablet (Augmentin) 1 tab PO TID #27 tabs 07/01/24 fluticasone 232 mcg-salmeterol 14 mcg/actuation breath activated powdr 1 inh inhalation Q12 #1 inh 07/01/24 gabapentin 100 mg capsule 100 mg PO BID #28 caps 07/01/24 melatonin 3 mg tablet 3 mg PO QHS #30 tabs 07/01/24 oxycodone 5 mg tablet 5 mg PO Q6H PRN pain 7 days #10 tabs 07/01/24 polyethylene glycol 3350 17 gram/dose oral powder (Miralax) 17 g PO BID #850 grams 07/01/24 sennosides 8.6 mg-docusate sodium 50 mg tablet (Stimulant Laxative Plus) 2 tab PO BID #120 tabs 07/01/24 sucralfate 1 gram tablet 1 g PO 1HR_ACHS ANTACID 30 days #120 tabs 07/01/24 tamsulosin 0.4 mg capsule 0.4 mg PO DAILY@1730 #30 caps 07/01/24 Hospital Course Operations None Procedures EGD (Abnormal esophageal motility, suspicious for aperistalsis. Nonbleeding gastric ulcer with no stigmata of bleeding. No gross lesions in the second portion of duodenum but has had a duodenal ulcer in the past.) Summary of Care Provided Minutes Spent on Discharge: 45 Hospital Course: SANDIE HO, is a 84 Female who presented to the emergency department at [facility] on 06/17/2024 after a fall at home. She complained of left knee pain. She had had multiple falls over the preceding 4 days. 06/17/2024 [facility] ED with fall. Multiple falls last 4 days, diagnosed with quadriceps strain. Urinary retention, bladderscan 500cc, Gómez catheter inserted, 1100cc urine drained. Left knee pain, CT left knee NEGATIVE for periprosthetic fracture. 06/17/2024 Admit [facility]. CT left knee showed effusion, no fracture. Pain control, PT/OT for discharge planning. She had a clean-catch urine done in the emergency department and it showed 0 RBCs with 5-10 WBCs and 4+ bacteria. A urine culture was not done. She received 8 or 9 doses of meropenem while on the acute side of the hospital and then was transferred to TCU. A urine analysis on 06/25/2024 showed 5-10 WBCs with rare bacteria. Urine culture grew a gram-negative salazar lactose wearing apparel shaker and possible Enterococcus species. There was less than 1000 colonies of each bacteria on the culture and this was not considered an infection. Follows [facility], received botox injection of bladder for overactive bladder. Consider voiding trial. 06/18/2024 Sitting up in bed, mild fatigue. Able to walk 20 feet with PT, wearing left knee immobilizer. Left knee pain with ambulation, Lives alone, not safe to go home alone. Tylenol, Oxycodone, Morphine IV for left knee pain. PT/OT for TCU. Patient requested voiding trial prior to TCU. 06/19/2024 Patient failed voiding trial overnight, gómez catheter reinserted. Dr. Guerrero recommended no surgery for left knee pain, instead, WBAT, left knee immobilizer as needed, PT/OT, f/u Orthopedics in 2-3 weeks. 06/19/2024 Admit to TCU with debility, here for rehabilitation, strengthening, prior to discharge home alone. 1. She was very somnolent while on TCU. At presentation to the emergency room she was taking gabapentin 300 mg 3 times daily, oxycodone 5 mg every 6 hours as needed for pain, nortriptyline 25 mg at at bedtime. Gabapentin was decreased to 300 mg twice daily but she continued to be extremely somnolent during the day and confused at times. 2. While on TCU she was seen by Dr. Bonilla from gastroenterology. She has a known history of peptic ulcer disease and dysphagia and also a previous esophageal ulcer. Apparently she was supposed to take Carafate and a proton pump inhibitor but this was not helping her symptoms and so somehow they got discontinued. Dr. Bonilla performed an EGD on 06/24/2024 and it showed abnormal esophageal motility, suspicious for aperistalsis. She had a nonbleeding gastric ulcer with no stigmata of bleeding. She had no gross lesions in the second portion of the duodenum. The gastric ulcer was biopsied and showed acute and chronic inflammation with no malignant cells. H. pylori was negative. Dr. Bonilla recommended continued Carafate and proton pump inhibitor. A Hemoccult stool on 06/29/2024 was negative. 3. She failed voiding trials on TCU and the Gómez had to be reinserted. A KUB showed obstipation with large amount of fecal burden in the colon. She was given stool softeners and laxatives. She had several bowel movements and the urine retention improved. Most postvoid residuals after laxatives have been less than 300 but on the morning of 07/01/2024 she had 1 post void residual of 452. She has been chronically on nortriptyline 25 mg at bedtime and this is known to cause urine retention. This was discontinued on the evening of 07/01/2024. 4. On 07/01/2024 she is still very somnolent. I went to see her on the evening of 07/01/24 and shewas visiting with her . She was very alert and appropriate . It think that she will be safe to go home in the AM. She is going to follow up with her urologist. She was good with the changes to the medications and she tells me that the Gabapentin has not made the back pain any better and she denies any radicular pain. She usually only takes the Oxycodone when she is going out and needs something for pain. she does not abuse it. 5. she is going to follow up with PCP and urology. Physical Exam Const alert, oriented x3 and no apparent distress Constitutional Narrative: Appropriate and has no confusion. She is very pleasant. General Appearance: cooperative HEENT head/scalp atraumatic Eyes PERRL, EOMs intact bilaterally, conjunctivae normal and no scleral icterus Eyes Narrative: No discharge from the eyes Neck supple Chest Chest: symmetrical chest wall rise Resp normal respiratory effort and clear to auscultation bilaterally Effort and Inspection: able to speak in complete sentences Cardio regular rate, regular rhythm and no gallops Cardio Narrative: No ectopy GI normal to inspection, nondistended, normoactive bowel sounds, soft to palpation and non-tender GI Narrative: No guarding with palpation Extremity no calf tenderness and no pedal edema Skin Rashes: no rashes Neuro oriented x3, CN's II-XII intact bilaterally and moves all extremities Weight / BMI Weight Weight: 119 lb 6.4 oz Body Mass Index (BMI) 19.8 ABG / Lab / Microbiology Data 06/27/24 05:14 06/27/24 05:14 Laboratory: Laboratory Results - last 24 hr 07/01/24 15:51: Urine Color Straw, Urine Clarity Sl. Cloudy, Urine pH 7.0, Ur Specific [place] 1.010, Urine Protein 30 H, Urine Glucose (UA) Normal, Urine Ketones Negative, Urine Occult Blood 50 H, Urine Nitrite Negative, Urine Bilirubin Negative, Urine Urobilinogen Normal, Ur Leukocyte Esterase 500 H, Urine RBC 0 SEEN, Urine WBC >100 SEEN, Ur Squamous Epith Cells 0 SEEN, Ur Transition Epith Cell 0-5 SEEN, Urine Bacteria 4+, Urine Mucus 0 SEEN Microbiology: Microbiology 06/29/24 18:00 Stool Stool Occult Blood (KIM) - Final 06/26/24 02:45 Urine, Clean Catch Urine Culture - Final GNR lactose wearing apparel shaker GPC Poss Enterococcus sp 06/24/24 12:50 Nasal Secretion SARS-CoV-2 Antigen (Rapid) - Final D/C Instructions Discharge Diet: - (Low-fat) Weight Bearing Status: Full weight bearing DC O2, CPAP, BIPAP Needs Home O2 Discharge instructions: No Pending Tests Upon Discharge: none Please Follow Up With: urology When: call urology for an appt to follow up for urine retention. Also follow up with PCP within 1 week Meaningful Use Info Meaningful Use Meaningful Use Diagnoses (Choose all that apply): None applicable Ischemic Stroke Statin Dosing Therapy Reference: STATIN DOSE THERAPY REFERENCE: * Patients > 75 years receive moderate or high dose statin therapy. * Patients 75 years or YOUNGER should receive HIGH intensity statin dose unless contraindicated. You will be required to document reason for non-treatment if statin daily dose does not meet guidelines. HIGH DOSE STATIN THERAPY DAILY Atorvastatin > than or = to 40 mg Rosuvastatin > than or = to 20 mg Amlodipine + Atorvastatin > than or = to 2.5/40 mg Ezetimibe + Simvastatin 10/80 mg Simvastatin 80mg Discharge Plan Admission Admit Date/Time: 06/19/24 20:30 Primary Reason for Your Visit: debiity with multiple falls. Attending Provider: Ken Scott Chi Primary Care Provider: Franc Lau Instructions Patient Instructions: Urinary Tract Infections in Women, UTIs Understanding Additional Instructions / Restrictions: 1. You need to go to the restroom and try to empty your bladder every 2-3 hours. Sometimes you are retaining over 300 cc in the bladder after urination and at other times you are not retaining > 300 cc's. Generally when you retain over 300 cc's after urinating we put in a Gómez catheter. Urine retention can lead to urinary tract infections and if it is bad enough to kidney failure. You are not retaining so much that I think you will go into kidney failure. The urine retention has improved with getting her bowels moving better. I would continue with stool softeners daily and if you do not have a bowel movement for 3 days then you will need to take a laxative. Constipation is a frequent cause of urine retention in women. On your most recent urine analysis you had a few white blood cells and a few bacteria but you have no fever and your white blood cell count is normal. This is what we call asymptomatic bacteriuria. There is no need to be on antibiotics for this. Frequent antibiotics for asymptomatic bacteriuria can lead to development of antibiotic resistant bacteria and then if you do have a true urinary tract infection with burning, fever, chills, night sweats and elevated white blood cell count it would be very difficult to treat. 2. Make sure to drink at least a quart and a half of fluids every day. 3. You will need to continue to follow up with a urologist post discharge from TCU. 4. You had severe constipation. I am discharging you home with prescriptions for stool softeners. You will need to take these daily. If you are having more than 2 BM's a day call you PCP for advice on decreasing the stool softeners. 5. You take a drug called nortriptyline 25 mg at bedtime for nerve pain. This drug causes urine retention and constipation. Cymbalta, Oxycodone and Gabapentin also cause constipation. We discontinued the nortriptyline at bedtime in hopes that the urine retention will improve. Gabapentin not only causes constipation and it also causes increased sleepiness, lightheadedness and increased falls. 300 mg 3 times a day as a large dose for a woman of your age and size. You have been sleeping most of the day and the night while on the transitional care unit. Review of your chart says you take this medication for nerve pain. We have been decreasing the dose and I am sending you home with a prescription for 100 mg twice a day. If in 2 weeks on the 100 mg dose you have no nerve pain I would discontinue this medication. 6. Your urine was checked twice while you are on the transitional care unit. The first time the urine was checked you had a few white blood cells but had less than 1000 colonies of bacteria grow on the urine culture and this is not consistent with infection. On July 01 you developed burning with urination and we performed a straight catheterization and you had greater than 100 white blood cells per high-power field and a lot of bacteria. You have been placed on an antibiotic called Augmentin and you will take 1 tablet 3 times daily for 10 days. Since we were able to improve the constipation and you are now having more regular bowel movements the urine retention is usually less than 300 cc daily. An occasional postvoid residual is over 300. I do not feel that you are capable of performing a straight cath at this time due to increased drowsiness and some confusion. Hopefully discontinuing nortriptyline and decreasing the gabapentin will help with the urine retention. I recommend that you follow-up with the urologist soon after discharge from the hospital. 7. I was told at 1 time you were using Premarin vaginal cream to restore the integrity of the lining of the urogenital tract. I would discuss this with your urologist and restart if the urologist agrees. Discharge Orders/Prescriptions Prescriptions: New melatonin 3 mg Tablet 3 mg PO QHS Qty: 30 0RF sennosides-docusate sodium [Stimulant Laxative Plus] 8.6-50 mg Tablet 2 tab PO BID Qty: 120 0RF acetaminophen 500 mg Tablet 1,000 mg PO Q8 Qty: 180 0RF tamsulosin 0.4 mg Capsule 0.4 mg PO DAILY@1730 Qty: 30 0RF gabapentin 100 mg capsule 100 mg PO BID Qty: 28 0RF fluticasone propion-salmeterol 232-14 mcg/actuation Aerosol Powdr Breath Activated 1 inh inhalation Q12 Qty: 1 0RF polyethylene glycol 3350 [Miralax] 17 gram/dose powder 17 g PO BID Qty: 850 0RF amoxicillin-pot clavulanate [Augmentin] 500-125 mg tablet 1 tab PO TID Qty: 27 0RF Continued metoprolol succinate 50 mg tablet extended release 24 hr 50 mg PO QDAY duloxetine 20 mg capsule,delayed release(DR/EC) 20 mg PO DAILY atorvastatin 20 mg tablet 20 mg PO QDAY aspirin [Adult Aspirin Regimen] 81 mg tablet,delayed release (DR/EC) 81 mg PO QDAY pantoprazole 40 mg tablet,delayed release (DR/EC) 40 mg PO QDAY losartan 50 mg tablet 50 mg PO QDAY Qty: 90 3RF sucralfate 1 gram Tablet 1 g PO 1HR_ACHS 30 Days Qty: 120 1RF oxycodone 5 mg tablet 5 mg PO Q6H PRN (Reason: pain) 7 Days Qty: 10 0RF Discontinued nortriptyline 25 mg capsule 25 mg PO QHS ipratropium-albuterol 0.5 mg-3 mg(2.5 mg base)/3 mL solution for nebulization 3 ml inhalation Q4H PRN (Reason: shortness of breath or wheezing) gabapentin 300 mg capsule 300 mg PO TID 14 Days Qty: 42 0RF Referrals / Follow Up: Franc Lau MD [Primary Care Provider] - Disposition Disposition (needs filled in before D/C Order can be placed): Home Health Service Charges/Coding Visit Charges Inpatient E&M: 07711 SNF Disch >30 Min
[2024-07-01] MEDS: Amox/Clavulanate 500 MG Tablet PO (21:05)
[2024-07-01] MEDS: Atorvastatin Calcium 20 MG Tablet PO (21:05)
[2024-07-01] MEDS: MELATONIN 3 MG TABLET PO (21:05)
[2024-07-01] MEDS: Gabapentin 100 MG Capsule PO (21:05)
[2024-07-02] MEDS: Enoxaparin 40 MG/0.4 ML Syringe SC (05:30)
[2024-07-02] MEDS: Amox/Clavulanate 500 MG Tablet PO (05:30)
[2024-07-02] MEDS: Acetaminophen 500 MG Tablet 1000 MG PO (05:30)
[2024-07-02] MEDS: Sucralfate 1 GM Tablet PO ×2 (05:30→11:03)
--- NOTE | 2024-07-02 06:27 | NURSING ---
Pt. PVR this AM was 400cc, pt. states i don't think i can go anymore. This nurses encouraged pt. to allow this nurse to straight cath her, pt. refused.
--- NOTE | 2024-07-02 09:18 | CASEMGMT ---
Addendum entered by Emily Ho 07/04/24 08:45: [facility] are not INN with insurance. SW phoned dtr - left VM, requesting additional HHC preferences. Addendum entered by Emily Ho 07/02/24 10:10: Dtr returned call with first preference as [facility] SW educated that [facility] is at capacity and cannot accept new referrals[facility] SW to refer to [facility]. Dtr appreciative. Referral sent to [facility] via [facility]. Original Note: Social Work SW left with dtr inquiring about HHC agency preference. Emily Ho LICENSED ACUPUNCTURIST CAKE FROSTER
[2024-07-02] MEDS: Fluticasone/Salmeterol 232-14 Inhaler 1 PUFF INHALATION (09:20)
[2024-07-02] MEDS: Menthol/Lanolin/Calamine/Znox 113 GM Tube 1 APPLIC TOPICAL (09:20)
[2024-07-02] MEDS: Arthritis Pain Compound 60 CLICK TUBE TOPICAL (09:20)
[2024-07-02] MEDS: Losartan Potassium 50 MG Tablet PO (09:22)
[2024-07-02] MEDS: DULoxetine Hcl 20 MG Capsule PO (09:22)
[2024-07-02 09:23] VITALS: BP 127/50; PULSE 65
[2024-07-02] MEDS: Pantoprazole Sodium 40 MG Tablet PO (09:23)
[2024-07-02] MEDS: Aspirin E.C. 81 MG Tablet PO (09:23)
[2024-07-02] MEDS: Senna/Docusate Sodium 1 Tablet 2 TABLET PO (09:23)
[2024-07-02] MEDS: Metoprolol(XL)Succ 50 MG Tablet PO (09:23)
[2024-07-02] MEDS: Gabapentin 100 MG Capsule PO (09:27)
[2024-07-02 09:30] VITALS: BP 127/50; PULSE 65; RESP 16; TEMP 36.1; O2SAT 94
--- NOTE | 2024-07-02 10:51 | NURSING ---
CULTURE BACK ON URINE, E COLI FOUND. NOTIFIED,NNO AT THIS TIME. PT STARTED ON AUGMENTIN 07/01/24
== END 2024-07-02 11:50 | disposition home health service (06) | DRG 565 ==
PROVIDERS: Internal Medicine; Admitting Provider Family Medicine Geriatric Medicine; PCP Family Medicine; Visit Provider Family Medicine Geriatric Medicine
DX: M25.462 Effusion, left knee (principal); N30.01 Acute cystitis with hematuria; K26.9 Duodenal ulcer, unspecified as acute or chronic, without hemorrhage or perforation; M06.9 Rheumatoid arthritis, unspecified; J44.89 Other specified chronic obstructive pulmonary disease; F32.A Depression, unspecified; I10 Essential (primary) hypertension; K21.00 Gastro-esophageal reflux disease with esophagitis, without bleeding; I25.10 Atherosclerotic heart disease of native coronary artery without angina pectoris; E78.5 Hyperlipidemia, unspecified; G62.9 Polyneuropathy, unspecified; W19.XXXD Unspecified fall, subsequent encounter; K22.4 Dyskinesia of esophagus; K59.00 Constipation, unspecified; Z87.891 Personal history of nicotine dependence; K25.9 Gastric ulcer, unspecified as acute or chronic, without hemorrhage or perforation; R33.9 Retention of urine, unspecified; Z79.82 Long term (current) use of aspirin; N32.81 Overactive bladder; R29.6 Repeated falls; S76.119D Strain of unspecified quadriceps muscle, fascia and tendon, subsequent encounter; Z79.899 Other long term (current) drug therapy; Z79.51 Long term (current) use of inhaled steroids; K25.7 Chronic gastric ulcer without hemorrhage or perforation; G47.00 Insomnia, unspecified
CPT/HCPCS: 36415; 74018; 80048; 81001; 82274; 85014; 85018; 85025; 87086; 87088; 87186; 87811; 92507; 92523; 97110; 97116; 97129; 97130; 97162; 97166; 97530; 97535; 97802; A4216

== ENCOUNTER 2024-06-24 09:15 | Day surgery (SDC) | payer MEDICARE, SELFPAY ==
--- NOTE | 2024-06-21 12:17 | PAT.ANE_ITS ---
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 When Was Last Pacemaker Check QUESTION #4 FULL TEXT: You/Your Family Experience fever (hyperthermia) with Anesthesia Last Oral Intake Last Oral intake: Last Oral Intake NPO since Meds taken in AM with sips of water? 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 Female Yes 06/21/24 10:22 HX of Motion Sickness No 06/21/24 10:22 HX of N/V After Surgery No 06/21/24 10:22 Non-Smoker Yes 06/21/24 10:22 Duration of Surgery greater No 06/21/24 10:22 than 60 minutes Number of Risk Factors 2 06/21/24 10:22 PONV Score Moderate Risk 06/21/24 10:22 Height & Weight Height & Weight: Anesthesia: Height & Weight Height 5 ft 5 in 06/19/24 21:34 Respiratory Assessment Respiratory Assessment - corporate communications intern: Respiratory Tract Infection Hx - corporate communications intern Hx Respiratory Tract Infection No 06/21/24 10:22 STOP Sleep Apnea STOP Sleep Apnea - corporate communications intern: STOP Sleep Apnea - corporate communications intern Hx Hypertension Yes: CONTROLLED WITH MED/ 06/21/24 10:22 STARTED 2 MONTHS Hx Sleep Apnea No 06/21/24 10:22 CPAP No 06/21/24 10:22 BIPAP Do you snore loudly (louder No 06/21/24 10:22 than talking or can be heard Do you often feel tired/ Yes 06/21/24 10:22 fatigued/ sleepy during daytime? Has anyone observed you stop No 06/21/24 10:22 breathing during sleep? STOP Results Positive 06/21/24 10:22 QUESTION #5 FULL TEXT : Do you snore loudly (louder than talking or can be heard through closed doors)? 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 Specify any problems Hx of Preganancy in last 3 No 06/21/24 10:22 Months Nurse Filling Out Transfusion DSCHRIBER 06/21/24 10:22 & Questions: Date: 06/21/24 06/21/24 10:22 Time: 10:24 06/21/24 10:22 Patient unable to answer at this time (ie. confused, unrespo /Reproduction History /Reproductive History - corporate communications intern: /Reproductive Hx- corporate communications intern Hx Now No 06/21/24 10:22 Gestational Age (in weeks): EDC: Hx Hx Para Hx Section SAB No 06/21/24 10:22 PFS Medical History (Updated 06/21/24 @ 10:33 by Milena Betancourt) Post-menopausal Alcohol use Walker as ambulation aid Back pain Migraine headache Shortness of breath on exertion History of edema History of pain when walking History of stress test History of echocardiogram Cardiology follow-up encounter Depression Rheumatoid arthritis GI bleed Former smoker Migraines B12 deficiency Depressive disorder Mild cognitive impairment Essential (primary) hypertension CAD (coronary artery disease) Left ventricular hypertrophy Osteoporosis OAB (overactive bladder) Palpitations Fatigue GERD (gastroesophageal reflux disease) Dysphagia COPD (chronic obstructive pulmonary disease) Chronic ischemic colitis Chest pain DVT (deep venous thrombosis) Dyspnea Spondylosis Back pain Osteoarthritis Neoplasm of kidney Vitamin D deficiency Iron deficiency anemia Occipital neuralgia of right side Major depressive disorder Chronic headaches Home Medications ?Medication ?Instructions ?Recorded ?Last Taken ?Type sucralfate 1 gram tablet 1 g PO 1HR_ACHS ANTACID 30 days 01/19/24 06/19/24 15:15 Rx #90 tabs aspirin 81 mg tablet,delayed 81 mg PO QDAY blood thinner 05/06/24 06/19/24 History release (Adult Aspirin Regimen) atorvastatin 20 mg tablet 20 mg PO QDAY cholesterol 05/06/24 06/19/24 10:30 History duloxetine 20 mg capsule,delayed 20 mg PO DAILY mood 05/06/24 06/19/24 10:30 History release metoprolol succinate 50 mg 50 mg PO QDAY blood pressure 05/06/24 06/19/24 10:30 History tablet,extended release 24 hr nortriptyline 25 mg capsule 25 mg PO QHS nerve pain 05/06/24 06/18/24 History pantoprazole 40 mg tablet,delayed 40 mg PO QDAY GERD 05/22/24 06/19/24 10:30 History release gabapentin 300 mg capsule 300 mg PO TID pain 14 days #42 caps 06/17/24 06/19/24 15:15 Rx oxycodone 5 mg tablet 5 mg PO Q6H PRN pain 5 days #20 06/19/24 Unknown Rx tabs alendronate 70 mg tablet 70 mg PO QWEEK 06/21/24 Unknown History ipratropium 0.5 mg-albuterol 3 mg 3 ml inhalation Q4H PRN shortness 06/21/24 Unknown History (2.5 mg base)/3 mL nebulization of breath or wheezing soln Allergy/AdvReac Type Severity Reaction Status Date / Time No Known Allergies Allergy Verified 06/16/24 23:07 Family History Father CAD (coronary artery disease) CABG x 5 Skin cancer Brother Diabetes CAD (coronary artery disease) age 59 Skin cancer Mother Skin cancer Surgical History (Updated 06/21/24 @ 10:33 by Milena Betancourt) History of cardiac catheterization History of esophagogastroduodenoscopy (EGD) History of left heart catheterization (~2002) History of bilateral knee replacement History of open reduction and internal fixation (ORIF) procedure History of right hip replacement Social History household members: none Smoking Status: Former smoker alcohol intake: current alcohol intake frequency: a few times a week substance use type: does not use Audit: Pertinent Findings Pertinent Findings EKG Perinent findings: 05/21/2024 normal sinus sinus arrhythmia left ventricular hypertrophy repull abnormality Echo (EF%) pertinent findings: 04/22/2024 ejection fraction 35% normal size global hypokinesis left ventricle Heart catheterization pertinent findings: 06/10/2024 minimal coronary artery disease mild left ventricular dysfunction and severe hypertension recommend aggressive blood pressure treatment Recommendation Anesthesia Recommendation Anesthesia recommendation: OPTIMIZED for anesthesia
[2024-06-24] VITALS (8 sets, daily range): BP systolic 83–144; BP diastolic 39–49; PULSE 61–68; RESP 14–18; TEMP 36.3–36.8; O2SAT 92–97; BMI 19.3
--- NOTE | 2024-06-24 | IMM_PTH ---
PATIENT: SANDIE HO LOC: EN U#:[id number] AGE/SX: 84/F ROOM: RE06/24/[address]: Dr. Rosalio Bonilla DO : 1940 BED: DIS: 06/24/2024 SPEC #: [id number] RECD: 06/25/24 09:14 STATUS: FREDDY RELizbeth #: [id number] ISAC: 06/24/24 00:[address]: Rosalio Bonilla DEPT: IMMUNOHISTOCHEMISTRY RECD BY: Nissa Maldonado ENTERED: 06/25/24 09:15 SP TYPE: IMMUNO OTHR DR: Franc Lau MD Tissues: Gastric mucous membrane Procedures: H Pylori (initial) PHYSICIAN & INSTITUTION [place] [address] SPECIMEN INFORMATION: Tissue Source: Gastric ulcer Clinical Info: Gastric ulcer, duodenal ulcer Specimen Number: [id number] CPT code: 74203 METHODOLOGY: Deparaffinized sections of prefer/formalin-fixed tissue or PAP/DQ stained slides are incubated with monoclonal/polyclonal antibodies/oligonucleotide probes. Localization is made via biotin free immunoperoxidase method. Appropriate controls are performed and reacted as expected. Results on target cell population are indicated in the following table: RESULTS: ANTIBODY / CLONE RESULT H Pylori (polyclonal) negative These tests were developed and their performance characteristics determined by [facility]. They may not have been cleared or approved by the U.[place]. Food and Drug Administration. The FDA has determined that such clearance or approval is not necessary. The above immunohistochemical/dualISH markers are ordered and reviewed by the Pathologist. INTERPRETATION: Gastric ulcer, biopsy: Negative for Helicobacter pylori organisms. SJ:cb 06/25/24
--- NOTE | 2024-06-24 10:07 | PCM.PRE.AN2 ---
ASA Classification* ASA Classification ASA Classification: 3 Assessment & Plan Anesthesia* Anesthesia Assessment Anesthesia Assessment: Discussed sedation and/or anesthesia options, risks, benefits, and alternatives with patient/parents/legal guardian/POA. Questions invited. The patient/parents/legal guardian/POA seems to understand and agrees to proceed with anesthesia plan. Reviewed the physical assessment, medical history, allergy history and patient home medications list prior to surgery/procedure/anesthetic and documented any changes. Performed airway and anesthesia risk assessments. Anesthesia Type Anesthesia Type: MAC History Source History Obtained from:: Patient and Chart Anesthesia Focused Assessment* Temperature: 98 F Pulse Rate: 61 Blood Pressure: 144/46 Respiratory Rate: 16 Pulse Ox: 97 Oxygen Delivery Method: Room Air Airway Assessment Mouth opens: >3 cm Mallampati Score: IV Teeth Condition: Caps/Crowns (Patient has a couple caps they are tight.) Neck Range of motion (ROM): Limited ROM (Somewhat decreased in extension) Focused Labs Anesthesia Preop lab: CBC WBC 5.8 K/mm3 (4.4-11.0) 06/20/24 05:15 RBC 3.21 M/mm3 (4.2-5.4) L 06/20/24 05:15 Hgb 10.0 g/dL (12.0-15.0) L 06/21/24 06:36 Hct 30.9 % (37-47) L 06/21/24 06:36 Plt Count 201 K/mm3 (150-450) 06/20/24 05:15 CHEMISTRY Potassium 4.2 mmol/L (3.5-5.1) 06/20/24 05:15 Sodium 139 mmol/L (136-145) 06/20/24 05:15 Magnesium 2.0 mg/dL (1.6-2.6) 04/12/24 16:25 Phosphorus 3.1 mg/dL (2.5-4.9) 01/18/24 05:55 BUN 17 mg/dL (7-18) 06/20/24 05:15 Creatinine 0.80 mg/dL (0.55-1.02) 06/20/24 05:15 Glucose 98 mg/dL (74-106) 06/20/24 05:15 TSH 1.180 uIU/mL (0.358-3.740) 04/12/24 16:25 COAG PT 14.3 SECONDS (11.7-14.9) 01/18/24 01:38 Pre-Assessment Diagnosis/Proposed Procedure Planned Operative Procedure(s): EGD Anesthesia History 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 When Was Last Pacemaker Check QUESTION #4 FULL TEXT: You/Your Family Experience fever (hyperthermia) with Anesthesia Last Oral Intake Last Oral intake: Last Oral Intake NPO since 07:00 06/24/24 09:34 Meds taken in AM with sips of Yes 06/24/24 09:34 water? Meds patient instructed to take am of surgery Any additional information?: Yes NPO since: 07:00 (Patient had her a.m. 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 Female Yes 06/21/24 10:22 HX of Motion Sickness No 06/21/24 10:22 HX of N/V After Surgery No 06/21/24 10:22 Non-Smoker Yes 06/21/24 10:22 Duration of Surgery greater No 06/21/24 10:22 than 60 minutes Number of Risk Factors 2 06/21/24 10:22 PONV Score Moderate Risk 06/21/24 10:22 Height & Weight Height & Weight: Anesthesia: Height & Weight Height 5 ft 5 in 06/24/24 09:34 Weight: 52.617 kg 06/24/24 09:34 Body Mass Index (BMI) 19.3 06/24/24 09:34 Respiratory Assessment Respiratory Assessment - 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 Has anyone observed you stop No 06/21/24 10:22 breathing during sleep? STOP Results Positive 06/21/24 10:22 QUESTION #5 FULL TEXT : Do you snore loudly (louder than talking or can be heard through closed doors)? 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 Specify any problems Hx of Preganancy in last 3 No 06/21/24 10:22 Months Nurse Filling Out Transfusion DSCHRIBER 06/21/24 10:22 & Questions: Date: 06/21/24 06/21/24 10:22 Time: 10:06/21/24 10:22 Patient unable to answer at this time (ie. 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 operator Hx Now No 06/21/24 10:22 Gestational Age (in weeks): EDC: Hx Hx Para Hx Section SAB No 06/21/24 10:22 PFSH Medical History Quadriceps muscle rupture Post-menopausal Alcohol use Walker as ambulation aid Back pain Migraine headache Shortness of breath on exertion History of edema History of pain when walking History of stress test History of echocardiogram Cardiology follow-up encounter Depression Rheumatoid arthritis GI bleed Former smoker Migraines B12 deficiency Depressive disorder Mild cognitive impairment Essential (primary) hypertension CAD (coronary artery disease) Left ventricular hypertrophy Osteoporosis OAB (overactive bladder) Palpitations Fatigue GERD (gastroesophageal reflux disease) Dysphagia COPD (chronic obstructive pulmonary disease) Chronic ischemic colitis Chest pain DVT (deep venous thrombosis) Dyspnea Spondylosis Back pain Osteoarthritis Neoplasm of kidney Vitamin D deficiency Iron deficiency anemia Occipital neuralgia of right side Major depressive disorder Chronic headaches Home Medications ?Medication ?Instructions ?Recorded ?Last Taken ?Type sucralfate 1 gram tablet 1 g PO 1HR_ACHS ANTACID 30 days 01/19/24 06/19/24 15:15 Rx #90 tabs aspirin 81 mg tablet,delayed 81 mg PO QDAY blood thinner 05/06/24 06/19/24 History release (Adult Aspirin Regimen) atorvastatin 20 mg tablet 20 mg PO QDAY cholesterol 05/06/24 06/24/24 History duloxetine 20 mg capsule,delayed 20 mg PO DAILY mood 05/06/24 06/19/24 10:30 History release metoprolol succinate 50 mg 50 mg PO QDAY blood pressure 05/06/24 06/24/24 History tablet,extended release 24 hr nortriptyline 25 mg capsule 25 mg PO QHS nerve pain 05/06/24 06/18/24 History pantoprazole 40 mg tablet,delayed 40 mg PO QDAY GERD 05/22/24 06/19/24 10:30 History release gabapentin 300 mg capsule 300 mg PO TID pain 14 days #42 caps 06/17/24 06/24/24 Rx oxycodone 5 mg tablet 5 mg PO Q6H PRN pain 5 days #20 06/19/24 Unknown Rx tabs alendronate 70 mg tablet 70 mg PO QWEEK 06/21/24 Unknown History ipratropium 0.5 mg-albuterol 3 mg 3 ml inhalation Q4H PRN shortness 06/21/24 Unknown History (2.5 mg base)/3 mL nebulization of breath or wheezing soln Allergy/AdvReac Type Severity Reaction Status Date / Time No Known Allergies Allergy Verified 06/24/24 09:27 Family History Father CAD (coronary artery disease) CABG x 5 Skin cancer Brother Diabetes CAD (coronary artery disease) age 59 Skin cancer Mother Skin cancer Surgical History History of cardiac catheterization History of esophagogastroduodenoscopy (EGD) History of left heart catheterization (~2002) History of bilateral knee replacement History of open reduction and internal fixation (ORIF) procedure History of right hip replacement Social History household members: none Smoking Status: Former smoker alcohol intake: current alcohol intake frequency: a few times a week substance use type: does not use Review of Systems (Anesthesia) ROS Narrative System reviewed and no additional complaints, except as documented.
--- NOTE | 2024-06-24 10:12 | PCM.HP.STD ---
[facility] - General General Date of Admission: 06/24/24 Date of Service: 06/24/24 [facility] Narrative SANDIE HO, is a 84 F who presents from home for gastric ulcer surveillance. She has a past medical history of COPD as well as chronic opioid use. She also has a history of dysphagia and previous esophageal ulcer. Reportedly she was to be on a proton pump inhibitor and Carafate but was not having improvement of her symptoms so these were stopped. Patient states that this evening she began and feel generalized fatigue and shortness of breath but denied chest pain or coughing. She states she has mild abdominal discomfort and nausea but states there has been no bouts of vomiting. Secondary to the symptoms EMS was called and she was brought in for evaluation. Her symptoms began approximately one hour prior to arrival when she had a large, black bowel movement with melanotic stools. She also admits to severe generalized fatigue and mild abdominal discomfort and SOB with nausea but she denies associated vomiting. She states her symptoms are similar to her recent UGIB. She denies related fever, chills, chest pain, cough, palpitations or diaphoresis but she does admit to severe headache and she also states she is not sure if her Protonix and Carafate were stopped by her doctor or if she just ran out of them. In the ER she was diagnosed with melanotic stools likely due to UGIB from PUD; evidenced by BUN of 55 mg/dL and serum creatinine of 1.21 mg/dL present on admission suspected to be due at least in part to an Adverse Drug Reaction to Fluoxetine as SSRI's work to increase serotonin levels by blocking signalling between platelets thereby increasing potential bleeding risk in addition to failing to take Protonix and Carafate causing ABLA with hemoglobin of 8.6 g/dL [facility] Medical History Quadriceps muscle rupture Post-menopausal Alcohol use Walker as ambulation aid Back pain Migraine headache Shortness of breath on exertion History of edema History of pain when walking History of stress test History of echocardiogram Cardiology follow-up encounter Depression Rheumatoid arthritis GI bleed Former smoker Migraines B12 deficiency Depressive disorder Mild cognitive impairment Essential (primary) hypertension CAD (coronary artery disease) Left ventricular hypertrophy Osteoporosis OAB (overactive bladder) Palpitations Fatigue GERD (gastroesophageal reflux disease) Dysphagia COPD (chronic obstructive pulmonary disease) Chronic ischemic colitis Chest pain DVT (deep venous thrombosis) Dyspnea Spondylosis Back pain Osteoarthritis Neoplasm of kidney Vitamin D deficiency Iron deficiency anemia Occipital neuralgia of right side Major depressive disorder Chronic headaches Home Medications ?Medication ?Instructions ?Recorded ?Last Taken ?Type sucralfate 1 gram tablet 1 g PO 1HR_ACHS ANTACID 30 days 01/19/24 06/19/24 15:15 Rx #90 tabs aspirin 81 mg tablet,delayed 81 mg PO QDAY blood thinner 05/06/24 06/19/24 History release (Adult Aspirin Regimen) atorvastatin 20 mg tablet 20 mg PO QDAY cholesterol 05/06/24 06/24/24 History duloxetine 20 mg capsule,delayed 20 mg PO DAILY mood 05/06/24 06/19/24 10:30 History release metoprolol succinate 50 mg 50 mg PO QDAY blood pressure 05/06/24 06/24/24 History tablet,extended release 24 hr nortriptyline 25 mg capsule 25 mg PO QHS nerve pain 05/06/24 06/18/24 History pantoprazole 40 mg tablet,delayed 40 mg PO QDAY GERD 05/22/24 06/19/24 10:30 History release gabapentin 300 mg capsule 300 mg PO TID pain 14 days #42 caps 06/17/24 06/24/24 Rx oxycodone 5 mg tablet 5 mg PO Q6H PRN pain 5 days #20 06/19/24 Unknown Rx tabs alendronate 70 mg tablet 70 mg PO QWEEK 06/21/24 Unknown History ipratropium 0.5 mg-albuterol 3 mg 3 ml inhalation Q4H PRN shortness 06/21/24 Unknown History (2.5 mg base)/3 mL nebulization of breath or wheezing soln Allergy/AdvReac Type Severity Reaction Status Date / Time No Known Allergies Allergy Verified 06/24/24 09:27 Family History Father CAD (coronary artery disease) CABG x 5 Skin cancer Brother Diabetes CAD (coronary artery disease) age 59 Skin cancer Mother Skin cancer Surgical History History of cardiac catheterization History of esophagogastroduodenoscopy (EGD) History of left heart catheterization (~2002) History of bilateral knee replacement History of open reduction and internal fixation (ORIF) procedure History of right hip replacement Social History household members: none Smoking Status: Former smoker alcohol intake: current alcohol intake frequency: a few times a week substance use type: does not use ROS Constitutional Constitutional: Denies fatigue, fever(s), poor appetite, weight gain or weight loss Gastrointestinal Gastrointestinal: Denies belching, bloating, change in bowel habits, change in stool character, chewing difficulty, coffee ground emesis, constipation, cramping, diarrhea, dyspepsia, dysphagia, early satiety, excessive flatus, fecal incontinence, heartburn, hematemesis, hematochezia, hemorrhoids, loose stools, melena, nausea, odynophagia, rectal bleeding, tenesmus, vomiting or weight changes Vital Signs Vital Signs Vital Signs: 06/24/24 09:31 06/24/24 09:34 Temperature 98 F Temperature Source Temporal Pulse Rate 61 Respiratory Rate 16 Respiratory Pattern Normal Blood Pressure 144/46 H Blood Pressure Mean 78 Blood Pressure Source Monitor Blood Pressure Position Supine Blood Pressure Location Left Arm Pulse Ox 97 Oxygen Delivery Method Room Air Weight Weight: 116 lb Body Mass Index (BMI) 19.3 Physical Exam Const alert, oriented x3, no apparent distress and healthy appearing General Appearance: cooperative GI normal to inspection, nondistended, normoactive bowel sounds, soft to palpation, non-tender and non-distended Percussion: normal to percussion Rectal Exam: deferred Assessment & Plan Assessment/Plan (1) Gastric ulcer: (2) Duodenal ulcer: PLAN: Plan She will undergo repeat upper endoscopy for surveillance of her gastric and duodenal ulcers that were found on previous endoscopy to cause upper GI bleed. She was explained alternatives, risk and benefits including withstanding bleeding, infection, sepsis, perforation, need for emergent . She will have an ASA of 3.
--- NOTE | 2024-06-24 10:33 | OP.CCLET_ITS ---
06/24/2024 Franc Lau Md Re : Upper GI endoscopy procedure for Argenis Prajapati Dear Judi This procedure was performed on Monday, June 24, 2024. My impressions and recommendations are as follows: Impressions : - Abnormal esophageal motility, suspicious for aperistalsis. - Non-bleeding gastric ulcer with no stigmata of bleeding. Biopsied. - No gross lesions in the second portion of the duodenum. Recommendations : - Discharge patient to home. - Resume previous diet. - Continue present medications. - Await pathology results. My findings are described in the full procedure note, which is enclosed. If I can be of further assistance, please feel free to contact me at . Sincerely, Rosalio Bonilla, 06/24/2024 10:32:50 AM This report has been signed electronically.
--- NOTE | 2024-06-24 10:33 | OP.EGD_ITS ---
Patient Name: Argenis Prajapati Procedure Date: 06/24/2024 10:11 AM Date of : 1940 Age: 84 Procedure: Upper GI endoscopy Indications: Epigastric abdominal pain, Chronic peptic ulcer with hemorrhage Providers: Rosalio Bonilla DO Medicines: Monitored Anesthesia Care Patient Profile: This is an 84 year old female. Refer to note in patient chart for documentation of history and physical. Patient has symptoms of chronic epigastric abdominal pain and acute vomiting. Complications: No immediate complications. Procedure: Pre-Anesthesia Assessment: - Prior to the procedure, a History and Physical was performed, and patient medications and allergies were reviewed. The patient is competent. The risks and benefits of the procedure and the sedation options and risks were discussed with the patient. All questions were answered and informed consent was obtained. Patient identification and proposed procedure were verified by the physician in the pre-procedure area. Mental Status Examination: alert and oriented. Airway Examination: normal oropharyngeal airway and neck mobility. CV Examination: normal. Prophylactic Antibiotics: The patient does not require prophylactic antibiotics. Prior Anticoagulants: The patient has taken no anticoagulant or antiplatelet agents except for NSAID medication. ASA Grade Assessment: III - A patient with severe systemic disease. After reviewing the risks and benefits, the patient was deemed in satisfactory condition to undergo the procedure. The anesthesia plan was to use monitored anesthesia care (MAC). Immediately prior to administration of medications, the patient was re-assessed for adequacy to receive sedatives. The heart rate, respiratory rate, oxygen saturations, blood pressure, adequacy of pulmonary ventilation, and response to care were monitored throughout the procedure. The physical status of the patient was re-assessed after the procedure. After obtaining informed consent, the endoscope was passed under direct vision. Throughout the procedure, the patient's blood pressure, pulse, and oxygen saturations were monitored continuously. The Endoscope was introduced through the mouth, and advanced to the second part of duodenum. The upper GI endoscopy was accomplished without difficulty. The patient tolerated the procedure well. Scope In: 10:25:25 AM Scope Out: 10:27:40 AM Total Procedure Duration Time 0 hours 2 minutes 15 seconds Findings: Abnormal motility was noted in the esophagus. The cricopharyngeus was abnormal. There is a decrease in motility of the esophageal body. The distal esophagus/lower esophageal sphincter is spastic, but gives up passage to the endoscope. Primary peristaltic waves are noted. One non-bleeding superficial gastric ulcer with no stigmata of bleeding was found in the gastric antrum. The lesion was 5 mm in largest dimension. Biopsies were taken with a cold forceps for histology. Verification of patient identification for the specimen was done. Estimated blood loss was minimal. No gross lesions were noted in the second portion of the duodenum. Impression: - Abnormal esophageal motility, suspicious for aperistalsis. - Non-bleeding gastric ulcer with no stigmata of bleeding. Biopsied. - No gross lesions in the second portion of the duodenum. Recommendation: - Discharge patient to home. - Resume previous diet. - Continue present medications. - Await pathology results. Procedure Code(s): --- Professional --- 80689, Esophagogastroduodenoscopy, flexible, transoral; with biopsy, single or multiple CPT copyright 2021 [employer]. All rights reserved. The codes documented in this report are preliminary and upon suction roller review may be revised to meet current compliance requirements. Rosalio Bonilla DO 06/24/2024 10:32:50 AM This report has been signed electronically. Number of Addenda: 0 Note Initiated On: 06/24/2024 10:11 AM
--- NOTE | 2024-06-24 10:39 | PCM.POST.ANE ---
Anesthesia: Postop Eval I Current Vital Signs Temperature: 97.3 F Pulse Rate: 64 Blood Pressure: 83/45 Respiratory Rate: 18 Pulse Ox: 97 Oxygen Delivery Method: Room Air Assessment Airway patent: Yes Spontaneous unlabored respirations: Yes Mental status: Asleep nausea: No Vomiting: No Anesthesia Complication: Yes Anesthesia Complication Comment:: hypotensive in PACU Fluid Hydration Crystalloid volume administer (ml): 30 Total IV fluid infused: 30 Progress Note Anesthesia document: Postop Eval 1 completed: Yes
--- NOTE | 2024-06-24 10:51 | EGD_PTH ---
PATIENT: SANDIE HO LOC: EN U#:[id number] AGE/SX: 84/F ROOM: RE06/24/[address]: Dr. Rosalio Bonilla DO : 1940 BED: DIS: 06/24/2024 SPEC #: [id number] RECD: 06/24/24 12:44 STATUS: FREDDY LYNNETTE #: [id number] ISAC: 06/24/24 10:[address]: Rosalio Bonilla DEPT: SURGICAL PATHOLOGY RECD BY: Nissa Maldonado ENTERED: 06/24/24 14:13 SP TYPE: EGD BIOPSY OTHR DR: Franc Lau MD Tissues: Gastric mucous membrane Procedures: Surgery Specimen Level IV HEADER OPERATION: EGD with biopsy PRE-OP DIAGNOSIS: Gastric ulcer, duodenal ulcer TISSUE SUBMITTED: Gastric ulcer MICROSCOPIC DIAGNOSIS Gastric ulcer, biopsy: Fragments of gastric mucosa with acute and chronic inflammation, congestion and hemorrhage. See comment. MARTY 06/25/2024 COMMENT The results of immunohistochemistry for Helicobacter pylori will be reported separately ([id number]). MICROSCOPIC DESCRIPTION Slides are reviewed. GROSS DESCRIPTION Received is one container labeled with the patient name and designated gastric ulcer. The specimen consists of multiple irregular fragments of light fatima soft tissue that in aggregate measure 0.5 x 0.2 x 0.1 cm. The specimen is totally submitted in one cassette. /MS:cc 06/24/24 TC:2 CPT: 51607
--- NOTE | 2024-06-24 14:56 | PCM.POSTANE2 ---
Anesthesia Postop Eval I Sum Postop Eval Completion status Anesthesia document: Postop Eval 1 completed: Yes Anesthesia Postop Eval I Summary Anesthesia Postop Eval I Summary: Anesthesia Postop Eval I: Assessment Summary Airway patent Yes 06/24/24 10:40 [email or web address] Spontaneous unlabored Yes 06/24/24 10:40 [email or web address] respirations Mental status Asleep 06/24/24 10:40 [email or web address] nausea No 06/24/24 10:40 [email or web address] Vomiting No 06/24/24 10:40 [email or web address] Anesthesia Postop Eval I: Fluid Summary Crystalloid volume administer 30 06/24/24 10:40 [email or web address] (ml) Colloids volume administered ( ml) Blood Product volume administered (ml) Total IV fluid infused 30 06/24/24 10:40 [email or web address] Anesthesia Postop Eval I: Summary Notes Anesthesia Complication Yes 06/24/24 10:40 [email or web address] Anesthesia Complication hypotensive in 06/24/24 10:40 [email or web address] Comment: PACU Post-operative progress note Anesthesia: Postop Eval II Evaluation Mental status: Awake and Calm Pain Level: 0 nausea: No Vomiting: No Complications Anesthesia Complication: No
== END 2024-06-24 11:14 | disposition home or self-care (01) ==
LOC: EN 09:16 → AC 09:16
PROVIDERS: PCP Family Medicine; Referring Provider Family Medicine; Visit Provider Internal Medicine Gastroenterology
PROC: 0DJ08ZZ Inspection of Upper Intestinal Tract, Via Natural or Artificial Opening Endoscopic (ICD-10-PCS; CPT 43235; principal; 2024-06-24 10:10)
DX: K25.9 Gastric ulcer, unspecified as acute or chronic, without hemorrhage or perforation (principal); J44.9 Chronic obstructive pulmonary disease, unspecified; I25.10 Atherosclerotic heart disease of native coronary artery without angina pectoris; I10 Essential (primary) hypertension; Z87.891 Personal history of nicotine dependence; Z79.82 Long term (current) use of aspirin; Z79.899 Other long term (current) drug therapy
CPT/HCPCS: 43239; 88305; 88342; J2405

== ENCOUNTER → 2024-07-04 | Outpatient (CLI) | payer MEDICARE, SELFPAY ==
[2024-07-04 17:36] LABS: Absolute Lymphocyte Count 1.38 X10^3/uL (0.83-4.51); Absolute Neutrophil Count 6.6 X10^3/uL (2.0-7.7); Basophil# 0.04 X10^3/uL; Basophil% 0.4 % (0-1); Eosinophil# 0.62 X10^3/uL; Eosinophils% 6.5 % (0-5); Hematocrit 39.6 % (37-47); Hemoglobin 12.5 g/dL (12.0-15.0); Lymphocyte # 1.38 X10^3/ul (0.83-4.51); Lymphocyte % 14.5 % (19-41); Mean Corp Hgb Conc 31.6 g/dL (32-36); Mean Corpuscular Hgb 29.9 pg (27.0-32.0); Mean Corpuscular Volume 94.7 fL (81-99); Mean Platelet Vol. 8.9 fl (6.2-12.0); Monocyte% 8.4 % (0-10); NRBC Flagged by Analyzer 0 % (0-5); Neutrophil # 6.62 X10^3/uL (2.7-7.7); Neutrophil % 69.8 % (47-70); Platelet Count 356 K/mm3 (150-450); RBC Distribution Width CV 13.5 % (11.6-14.6); RBC Distribution Width SD 46.9 fl (35.1-43.9); Red Blood Count 4.18 M/mm3 (4.2-5.4); White Blood Count 9.5 K/mm3 (4.4-11.0)
[2024-07-04 17:59] LABS: Vitamin B12 554 pg/mL (211-911)
[2024-07-04 18:03] LABS: Iron 126 ug/dL (50-170); Iron Binding Capacity,Total 351 ug/dL (250-450); PERCENT IRON SATURATION 35.9 % (15.0-55.0)
[2024-07-08 16:08] LABS: Erythropoietin 8.5 mIU/mL (2.6-18.5)
== END | disposition home or self-care (01) ==
LOC: MFPLAB 15:36
PROVIDERS: PCP Family Medicine; Visit Provider Family Medicine
DX: D64.9 Anemia, unspecified (principal)
CPT/HCPCS: 36415; 82607; 82668; 83540; 83550; 85025

== ENCOUNTER → 2024-07-08 | Outpatient (CLI) | payer MEDICARE, SELFPAY ==
--- NOTE | 2024-07-08 14:40 | US_ITS ---
INDICATION: Urine retention EXAMINATION: Ultrasound US Post Void Residual Urine/Bladder TECHNIQUE: Salcedo scale and color doppler imaging was performed of the urinary bladder. COMPARISON: None. FINDINGS: No stones, masses, or wall thickening. Pre-void volume is 168 cc. Post-void volume is 63 cc. Post-void residual is 38%. US/Post Void Residual Bladder IMPRESSION: Post-void residual is 38%. Otherwise, no abnormalities. Electronically Signed: Tod Valles MD at 23:48 EST ,
== END | disposition home or self-care (01) ==
LOC: US 14:37
PROVIDERS: PCP Family Medicine; Referring Provider Family Medicine; Visit Provider Family Medicine
DX: R33.9 Retention of urine, unspecified (principal)
CPT/HCPCS: 51798

== ENCOUNTER → 2024-07-15 | Outpatient (CLI) | payer MEDICARE, SELFPAY ==
--- NOTE | 2024-07-15 11:27 | RAD_ITS ---
STUDY: X-RAY CHEST REASON FOR EXAM: Female, 84 years old. HYPOXIA TECHNIQUE: PA and lateral views of the chest. COMPARISON: Comparison is made with prior study dated May 21, 2024. FINDINGS: There is hyperinflation of the lungs consistent with chronic obstructive lung disease (COPD). Stable partially calcified granuloma in the right lung apex. Stable scarring at both lung apices worse on the right side. There is no demonstrated pleural abnormality. Normal size heart. Normal mediastinum and bob. Normal visualized pulmonary arteries. There is atherosclerotic calcification of the aortic arch with tortuosity. There are degenerative changes of the visualized thoracic spine. Mild levoscoliosis at the thoracolumbar level. Normal visualized ribs, clavicles, and shoulders. There is no demonstrated abnormality of the visualized soft tissue structures of the upper abdomen. RAD/Chest PA and Lateral IMPRESSION: Hyperinflation. Stable chronic changes. No acute abnormality is seen. Electronically Signed: Lasha Powell MD at 12:52 EST ,
== END | disposition home or self-care (01) ==
PROVIDERS: PCP Family Medicine; Referring Provider Family Medicine; Visit Provider Family Medicine
DX: R09.02 Hypoxemia (principal)
CPT/HCPCS: 71046

== ENCOUNTER → 2024-09-20 | Outpatient (CLI) | payer MEDICARE, SELFPAY ==
[2024-09-20 17:56] LABS: Anion Gap 9 (5-15); BUN 12 mg/dL (4-19); BUN/Creat Ratio 14.3 RATIO (10-20); Calcium,Total 9.9 mg/dL (7.6-11.0); Carbon Dioxide 27.4 mmol/L (21.0-32.0); Chloride 102 mmol/L (98-108); EST Glomerular Filtration Rate 72 (>60); Glucose 101 mg/dL (70-99); Potassium 4.5 mmol/L (3.3-5.1); Pro- Brain NATRIURETIC PEPTIDE 417 pg/mL (<=1800); Sodium Level 138 mmol/L (133-145)
== END | disposition home or self-care (01) ==
LOC: LAB 16:18
PROVIDERS: PCP Family Medicine; Referring Provider Physician Assistant Medical; Visit Provider Physician Assistant Medical
DX: R06.09 Other forms of dyspnea (principal)
CPT/HCPCS: 36415; 80048; 83880

== ENCOUNTER → 2024-11-06 | Outpatient (CLI) | payer MEDICARE, SELFPAY ==
--- NOTE | 2024-11-06 18:41 | CT_ITS ---
PROCEDURE: CHEST WITHOUT CONTRAST 11/06/2024 REASON FOR EXAM: DYSPNEA. TECHNIQUE: Chest CT without contrast. Coronal and Sagittal reconstruction series were provided. One or more dose reduction techniques were used (e.g., Automated exposure control, adjustment of the mA and/or kV according to patient size, use of iterative reconstruction technique RADIATION DOSE SUMMARY: CTDlvol: 6.6 mGy DLP: 246 mGycm COMPARISON: None. FINDINGS: Mild bilateral basilar atelectatic pulmonary changes. Mild bilateral basilar peribronchial interstitial thickening, possibly bronchitis. Moderate osteopenia. Moderate benign chronic osteoporotic compression fracture of T12 vertebral body without retropulsion or secondary canal stenosis. Increased dorsal kyphosis at the level of the thoracolumbar junction. Small sliding hiatal hernia. 6 mm calcified granuloma in the right middle lobe. Normal unenhanced main pulmonary artery and right and left pulmonary arteries. Normal bilateral peripheral pulmonary arteries. Normal thoracic aorta and visualized great vessels. There is no demonstrated aortic aneurysm. Normal heart and pericardium. Normal mediastinum. Normal hilar regions. Normal visualized trachea and bronchi. Normal pleura. Normal visualized upper abdomen. CT/Chest without Contrast IMPRESSION: 1. Coronary artery calcification (CAC) is is present 2. Mild bilateral basilar atelectatic pulmonary changes. 3. Mild bilateral basilar peribronchial interstitial thickening, possibly bronc hitis. 4. Moderate osteopenia. 5. Moderate benign chronic osteoporotic compression fracture of T12 vertebral b jose without retropulsion or secondary canal stenosis. Increased dorsal kyphosis at the level of the thoracolumbar junction . 6. Small sliding hiatal hernia. 7. 6 mm calcified granuloma in the right middle lobe. Reading Location: [facility] [place] [id number]
== END | disposition home or self-care (01) ==
LOC: CT 18:27
PROVIDERS: PCP Family Medicine; Referring Provider Internal Medicine Pulmonary Disease; Visit Provider Internal Medicine Pulmonary Disease
DX: R06.00 Dyspnea, unspecified (principal)
CPT/HCPCS: 71250

== ENCOUNTER → 2024-11-13 | Outpatient (CLI) | payer MEDICARE, SELFPAY ==
[2024-11-13 11:37] LABS: Absolute Lymphocyte Count 1.83 X10^3/uL (0.83-4.51); Absolute Neutrophil Count 2.5 X10^3/uL (2.0-7.7); Basophil# 0.04 X10^3/uL; Basophil% 0.7 % (0-1); Eosinophil# 0.44 X10^3/uL; Eosinophils% 8.2 % (0-5); Hematocrit 35.9 % (37-47); Hemoglobin 11.7 g/dL (12.0-15.0); Lymphocyte # 1.83 X10^3/ul (0.83-4.51); Mean Corp Hgb Conc 32.6 g/dL (32-36); Mean Corpuscular Hgb 31.7 pg (27.0-32.0); Mean Corpuscular Volume 97.3 fL (81-99); Mean Platelet Vol. 9.2 fl (6.2-12.0); Monocyte# 0.58 X10^3/uL; Monocyte% 10.8 % (0-10); NRBC Flagged by Analyzer 0 % (0-5); Neutrophil # 2.48 X10^3/uL (2.7-7.7); Neutrophil % 46.1 % (47-70); Platelet Count 215 K/mm3 (150-450); RBC Distribution Width CV 13.6 % (11.6-14.6); RBC Distribution Width SD 48.2 fl (35.1-43.9); Red Blood Count 3.69 M/mm3 (4.2-5.4); White Blood Count 5.4 K/mm3 (4.4-11.0)
== END | disposition home or self-care (01) ==
LOC: LAB 10:11
PROVIDERS: PCP Family Medicine; Referring Provider Student in an Organized Health Care Education/Training Program; Visit Provider Student in an Organized Health Care Education/Training Program
DX: D64.9 Anemia, unspecified (principal)
CPT/HCPCS: 36415; 85025

== ENCOUNTER 2024-12-28 01:21 | Inpatient (IN) | payer MEDICARE, SELFPAY ==
[2024-12-28] VITALS (52 sets, daily range): BP systolic 58–136; BP diastolic 40–92; PULSE 96–144; RESP 12–40; TEMP 36.3–38.1; O2SAT 88–100; BMI 21.3; BMI 22.2
--- NOTE | 2024-12-28 01:24 | EDS_ITS ---
HPI History of Present Illness Chief Complaint: Shortness of Breath [facility] Medical History Neuropathic pain Chronic headache Hyperlipidemia Left knee pain Stenosis of right subclavian artery Quadriceps muscle rupture Post-menopausal Alcohol use Walker as ambulation aid Back pain Migraine headache Shortness of breath on exertion History of edema History of pain when walking History of stress test History of echocardiogram Cardiology follow-up encounter Depression Rheumatoid arthritis GI bleed Former smoker Migraines B12 deficiency Depressive disorder Mild cognitive impairment Essential (primary) hypertension CAD (coronary artery disease) Left ventricular hypertrophy Osteoporosis OAB (overactive bladder) Palpitations Fatigue GERD (gastroesophageal reflux disease) Dysphagia COPD (chronic obstructive pulmonary disease) Chronic ischemic colitis Chest pain DVT (deep venous thrombosis) Dyspnea Spondylosis Back pain Osteoarthritis Neoplasm of kidney Vitamin D deficiency Iron deficiency anemia Occipital neuralgia of right side Major depressive disorder Chronic headaches Home Medications ?Medication ?Instructions ?Recorded ?Last Taken ?Type aspirin 81 mg tablet,delayed 81 mg PO QDAY blood thinn er 05/06/24 06/19/24 History release (Adult Aspirin Regimen) atorvastatin 20 mg tablet 20 mg PO QDAY cholesterol 06/24/24 History duloxetine 20 mg capsule,delayed 20 mg PO DAILY mood 1 07/06/23 06/19/24 10:30 History release metoprolol succinate 50 mg 50 mg PO QDAY blood pressur e 05/06/24 06/24/24 History tablet,extended release 24 hr pantoprazole 40 mg tablet,delayed 40 mg PO QDAY GERD 1 07/22/23 06/19/24 10:30 History release losartan 50 mg tablet 50 mg PO QDAY #90 tabs 06/28 Unknown Rx sennosides 8.6 mg-docusate sodium 2 tab PO BID #120 ta bs 07/01/24 Unknown Rx 50 mg tablet (Stimulant Laxative Plus) hydrocodone-acetaminophen 5-325mg 1 tab PO Q8H PRN shawn n 09/20/24 Unknown History 5mg-325mg ondansetron 4 mg disintegrating 4 mg PO Q8H 11/13/24 U nknown History tablet cranberry extract 500 mg capsule 500 mg PO DAILY 12/28 Unknown History (Cranberry Concentrate) estradiol 1 mg/gram (0.1 %) 1 mg transdermal DAILY Unknown History transdermal gel packet (Divigel) methocarbamol 500 mg tablet 500 mg PO TID PRN PRN musc le spasm 12/28/24 Unknown History nortriptyline 10 mg capsule 25 mg PO QHS 12/28/24 Unkn own History Allergy/AdvReac Type Severity Reaction Status Date / Time No Known Allergies Allergy Verified 06/28/24 12:51 Family History Father CAD (coronary artery disease) CABG x 5 Skin cancer Brother Diabetes CAD (coronary artery disease) age 59 Skin cancer Mother Skin cancer Surgical History History of total left knee replacement History of cardiac catheterization History of esophagogastroduodenoscopy (EGD) History of left heart catheterization (~2002) History of bilateral knee replacement History of open reduction and internal fixation (ORIF) procedure History of right hip replacement Social History household members: spouse Smoking Status: Former smoker alcohol intake: current alcohol intake frequency: a few times a week substance use type: does not use Sepsis Attestation Sepsis Alert: Yes Sepsis Attestation: Agree w/Sepsis Date exam was performed: 12/28/24 Time exam was performed: 02:00 Possible Source of Sepsis: Pulmonary Sepsis Organ Dysfunction Criteria Present: SBP < 90 mmHg or MAP < 65 mmHg and Lactic Acid > 2 mmol/L Fluid Resuscitation Fluid resuscitation indicated?: Yes Fluid Resuscitation ordered: 30 ml/kg fluid bolus ordered Amount of fluid ordered: 1,750 Sepsis Note Date exam was performed: 12/28/24 Time exam was performed: 04:35 Sepsis Attestation: Sepsis re-evaluation was performed Response to fluids: Vasopressors started MDM MDM MDM Narrative Medical decision making narrative: HISTORY OF PRESENT ILLNESS: Chief complaint: Shortness of breath, altered mental status 84-year-old female history of COPD, GERD, DVT, CAD status post stent, alcohol use presents with shortness of breath. The patient is in severe respiratory distress, somnolent is not provide a lot of history. Per EMS noted approximately 12:30 AM on 12/28/2024 patient started having more shortness of breath. This happened suddenly. The patient has been complaining of shortness of breath, chest pain cough, headache, abdominal pain, vomiting, urinary complaints open to that time per . REVIEW OF SYSTEMS: Cannot obtain reliable review of systems secondary to patient's altered mental status PHYSICAL EXAM: Nursing triage notes reviewed, Vital signs reviewed Constitutional: please see [facility] HENT: MMM Eyes: Pupils equal round and reactive to light, Extraocular muscles intact Neck: No stridor, no JVD, full neck ROM Lungs: Clear to auscultation, No wheezing or rales. No increased work of breathing, no conversational dyspnea, no accessory muscle use, no nasal flaring. No respiratory distress noted Heart: Regular rate and rhythm, No murmurs, No rubs and No gallops, 2+ distal pulses (radial, femoral, posterior tibial) in all extremities Abdomen: Soft, there is no tenderness, rigidity, rebound or guarding, no obvious peritoneal signs, no palpable pulsatile abdominal masses, no auscultated abdominal bruit : No CVAT Extremities: No edema Neuro: No new focal neurological deficits, cranial nerves II through XII intact, 5/5 strength in all present extremities. Intact sensation to light touch in all present extremities, 2+ reflexes bilateral patella tendons. Skin: No rash or lesions noted MEDICAL DECISION MAKING: Chief Complaint: please see [facility] External records reviewed: Reviewed prior inpatient no, echocardiogram Factors affecting care: As per [facility] Social determinants of health: n elderly History obtained from others: EMS, Consults: Internal medicine (Dr. Palomares) recommended ICU admission. [facility] Narrative: Patient was initially tachycardic, tachypneic, somnolent with severe respiratory distress, belly breathing, tight lungs with bilateral wheezing, no sign of volume overload. Abdomen soft and nontender I considered the following differential diagnosis: COPD exacerbation, PE, ACS, arrhythmia, anemia, infectious or metabolic encephalopathy I obtained a broad lab and imaging workup to further determine if the patient was suffering from a life-threatening etiology. The patient initial exam was concerning enough to warrant endotracheal intubation however the patient was DNR CCA per EMS. In lieu of endotracheal intubation initially treated with rescue BiPAP as patient was DNR-CCA status. The patient's noted patient would want to be helped if she needed to breeze and as such her CODE STATUS were changed to full code Patient was intubated given expected clinical course (hypoxia, altered mental status). ALL IMAGES (IF OBTAINED) HAVE BEEN PERSONALLY REVIEWED AND INTERPRETED BY MYSELF. Chest x-ray was read and reviewed personally by myself showed evidence of right lower lobe pneumonia. Radiologist agrees my interpretation Initial lactate grossly elevated to 9.6 consistent with septic shock will start broad-spectrum antibiotics (vancomycin/Zosyn) and give her 30 cc/kg bolus Initial troponin elevated consistent myocardial ischemia likely demand ischemia from hypoxia and hypotension VBG with severe metabolic acidosis with a bicarb of 13.2 and a pH of 7.025. Initial troponin 35, delta troponin grossly elevated likely demand ischemia and not related to occlusive myocardial disease secondary to hypotension, hypoxia, sepsis, acidosis Repeat lactate shows improvement down to 7.4 COVID/RSV/flu negative CBC with leukocytosis suggestive of systemic inflammation, no anemia or thrombocytopenia noted BMP with metabolic acidosis and elevated anion gap consistent with septic shock LFTs show no evidence of hepatobiliary pathology. Urinalysis shows no evidence of urinary inflammation suggestive of UTI Initial reassessment showed the patient was euvolemic with poor tissue perfusion. Given hypotension and maps less than 65 and concern for septic shock patient was started on vasopressors. Procedure note: Endotracheal intubation The procedure was performed by myself. Indications: Respiratory failure, altered mental status Procedure Description: Used BiPAP for preoxygenation, patient in supine position, use. Laryngoscopy with a 7.5 cm ET tube, grade 1 visualization of the cords, intubated on first attempt with no intraprocedure complications. Post-Procedure Assessment: Tracheal intubation was confirmed with breath sounds auscultated equally bilaterally; appropriate color change with end tidal CO2 detector and waveform capnography. Procedure: Central line placement. Indication: Venous Access Consent: verbal. Risks of bleeding, infection, and pneumothorax were explained. A time out was completed. Maximal sterile barrier technique was used including cap, gown, sterile gloves, large sheet, hand washing and chlorhexidine prep. Anesthesia: The area anesthetized with 1% lidocaine. Procedure: The right femoral vein was punctured with a 19 gauge finder needle, then a wire introducer was placed, a 7 [place] triple lumen catheter was placed using Seldinger technique. There were no complications. Blood return was low pressure and non-pulsatile dark blood. Line secured in place with suture, and a sterile bio-occlusive dressing was applied. Patient tolerated procedure well. The procedure was performed by Jean A. Carmen DO The patient tolerated the procedure well with no immediate complications Upon reassessment the patient's volume status was euvolemic. She had improved organ perfusion after initiation of norepinephrine. Patient be admitted to ICU. Discussed hospitalist Dr. Palomares The patient and/or family, caregivers express understanding. The patient and/or family, caregivers agrees with the plan. Shared decision making: I will have a discussion with the patient and or visitors regarding risk/benefits of further testing or admission. They will be made aware of of the risk/benefits inherent in this decision they will be given the opportunity to voice understanding. Total critical care time today provided was at least 60 minutes. This excludes separately billable procedures. Critical care time (if documented) is secondary to the patient having high probability of clinically significant/life threatening deterioration in the patient's condition which required my urgent intervention. Impression: 1. Acute respiratory failure 2. Septic shock 3. Community-acquired pneumonia 4. History of COPD Dispo: Admit to ICU This note was generated with [employer] dictation software. It may contain incorrect words, spelling, and punctuation that were not noted in review of the chart prior to signing. Discharge Plan Triage Chief Complaint: Shortness of Breath ED Provider: Jean Morales Dx/Rx/DC Orders Prescriptions: No Action metoprolol succinate 50 mg tablet extended release 24 hr 50 mg PO QDAY duloxetine 20 mg capsule,delayed release(DR/EC) 20 mg PO DAILY atorvastatin 20 mg tablet 20 mg PO QDAY aspirin [Adult Aspirin Regimen] 81 mg tablet,delayed release (DR/EC) 81 mg PO QDAY pantoprazole 40 mg tablet,delayed release (DR/EC) 40 mg PO QDAY losartan 50 mg tablet 50 mg PO QDAY Qty: 90 3RF hydrocodone-acetaminophen 5-325 mg tablet 1 tab PO Q8H PRN (Reason: pain) ondansetron 4 mg tablet,disintegrating 4 mg PO Q8H sennosides-docusate sodium [Stimulant Laxative Plus] 8.6-50 mg Tablet 2 tab PO BID Qty: 120 0RF nortriptyline 10 mg capsule 25 mg PO QHS methocarbamol 500 mg tablet 500 mg PO TID PRN PRN (Reason: muscle spasm) estradiol [Divigel] 1 mg/gram (0.1 %) gel in packet 1 mg transdermal DAILY cranberry extract [Cranberry Concentrate] 500 mg capsule 500 mg PO DAILY Rx Instructions: administer with a meal Primary Care Provider: Franc Lau Referrals: Franc Lau MD [Primary Care Provider] - Print Language: Tamazight
--- NOTE | 2024-12-28 01:26 | RAD_ITS ---
PROCEDURE: CHEST 1 VIEW (PORTABLE) 12/28/2024 REASON FOR EXAM: SHORTNESS OF BREATH TECHNIQUE: Frontal view of the chest. COMPARISON: Chest CT 11/06/2024, chest x-ray 07/15/2024 FINDINGS: ETT tip between the inlet and the anai. Enteric tube tip in stomach lumen. Normal heart size. Scoliosis. Well inflated lungs. Interval development of right mid and lower lung zone airspace disease. Blunted right angle. No large effusion or pneumothorax. Background emphysema. Old lower thoracic spine compression deformities. RAD/Chest 1 View (Portable) IMPRESSION: Suspect right lung base pneumonia. Follow up imaging recommended. Reading Location: [facility]
[2024-12-28] MEDS: 0.9% Normal Saline (500mL Bag) 500 ML 999 ML IV (01:37)
[2024-12-28 01:49] LABS: Hematocrit 41.6 % (37-47); Hemoglobin 12.8 g/dL (12.0-15.0); Immature Granulocytes Count 0.150 X10^3/uL (0.0-0.0); Mean Corp Hgb Conc 30.8 g/dL (32-36); Mean Corpuscular Volume 102.5 fL (81-99); Mean Platelet Vol. 9.7 fl (6.2-12.0); NRBC Flagged by Analyzer 0 % (0-5); POSITIVE DIFFERENTIAL YES; Platelet Count 241 K/mm3 (150-450); RBC Distribution Width CV 13.2 % (11.6-14.6); RBC Distribution Width SD 49.8 fl (35.1-43.9); Red Blood Count 4.06 M/mm3 (4.2-5.4); White Blood Count 12.3 K/mm3 (4.4-11.0)
[2024-12-28] MEDS: fentaNYL 100 MCG/2 ML Ampul IV ×2 (01:49→02:53)
--- OUTSIDE RECORDS SUMMARY | 2024-12-28 01:52 | XMS RPT_ITS | CCD ---
Author Organization [facility] Care Team Providers Care Qualitative Executive Researcher Name Role Phone DEVINIRIS Unavailable Unavaila ble Brandi MCKEON, Moshe E Unavailable Brandi MCKEON, Moshe E Unavailable Rufener PT, Rico Unavailable Sergio Bailey MD Primary Care Provider Brandi MCKEON, Moshe E Unavailable Brandi MCKEON, Moshe E Unavailable Rufener PT, Rico Unavailable Sergio Bailey MD Primary Care Provider Brandi MCKEON, Moshe E Unavailable Rufener PT, Rico Unavailable Sergio Bailey MD Primary Care Provider Brandi MCKEON, Moshe E Unavailable Brandi MCKEON, Moshe E Unavailable Rufener PT, Rico Unavailable Sergio Bailey MD Primary Care Provider [phone] Dr. Sergio Bailey Primary Care Provider Dr. Jean Morales Emergency Provider Dr. Valentina Palomares Admit Provider Dr. Valentina Palomares Other Provider Dr. Deven Ugarte Attending Provider Dr. Deven Ugarte Other Provider Dr. Ashish Rojas Attending Provider Rucarlos PT, Rico Unavailable Sergio Bailey MD Primary Care Provider GARCÍA OBANDO Consulting Unavailable HAILEE DE LEON Referring Unavailable MILLA YU Attending Unavailable RHIANNON MADISON Admitting Unavailable SERGIO BAILEY Primary Care Unavailable SERGIO BAILEY Primary Care Unavailable GARCÍA OBANDO Attending Unavailable CAMILA LAW Referring Unavailable Dr. Sergio Bailey Primary Care Provider CarmenDr. Jean mitchell Emergency Provider Dr. Valentina Palomares Admit Provider Dr. Valentina Palomares Other Provider Dr. Deven Ugarte Attending Provider Dr. Deven Ugarte Other Provider Dr. Ashish Rojas Attending Provider Dr. Sergio Bailey Primary Care Provider Dr. Sergio Bailey Referring Provider [phone] JAXON Mar Attending Provider Dr. Sergio Sosa Attending Provider MD Kashif St Emergency Provider Dr. Nilesh Gaona Admit Provider Unavailabl e Dr. Nilesh Gaona Other Provider Unavailabl e Dr. Casa Jain Attending Provider Dr. Casa Jain Other Provider Dr. García Barth Other Provider [phone] Dr. Ian Lassiter Other Provider Dr. Casa Guerrero Other Provider [phone] Micheal Arthur Other Provider [phone] Dr. Parish Arias Other Provider [phone] Dr. Jamie Arthur Other Provider JAXON Womack Other Provider JAXON Muñoz Other Provider AIDA Le Other Provider AIDA Gaytan Other Provider Friend, Dr. Santamaria Attending Provider Dr. Andrew Langston Attending Provider Dr. García Barth Referring Provider Parveen MCKEON, Sergio Jensen Primary Care Provider TIA ANGLIN Attending Unavailable JUJU HAMM Referring Unavailable BAILEY, SERGIO A Primary Care Unavailable TIA ANGLIN Attending Unavailable PARVEEN, SERGIO A Primary Care Unavailable TIA ANGLIN Referring Unavailable BAILEY, SERGIO A Primary Care Unavailable TIA ANGLIN Attending Unavailable Dr. Nilesh Gaona Referring Provider Unavail Dr. Casa Canas Referring Provider Dr. Sergio Bailey Primary Care Provider Dr. Andrew Langston Attending Provider Dr. García Barth Referring Provider JUJU HAMM Attending Unavailable BAILEY, SERGIO A Primary Care Unavailable JUJU HAMM Attending Unavailable PARVEEN, SERGIO A Primary Care Unavailable JUJU HAMM Attending Unavailable BAILEY, SERGIO A Primary Care Unavailable RADHA CALDERON Attending Unavailable TIA ANGLIN Referring Unavailable BAILEY, SERGIO A Primary Care Unavailable JUJU HAMM Attending Unavailable JUJU HAMM R Referring Unavailable BAILEY, SERGIO A Primary Care Unavailable KVNG, RADHA B Attending Unavailable VKNG, RADHA B Referring Unavailable BAILEY, SERGIO A Primary Care Unavailable BAILEY, SERGIO Primary Care Unavailable BRIT MCKEON~[id number], NAROUZE SAMER Admitting Unavailable BRIT MCKEON~[id number], NAROUZE SAMER Attending Unavailable BAILEY, SERGIO Primary Care Unavailable BRIT MCKEON~[id number], NAROUZE SAMER Admitting Unavailable NAROUZE MD~[id number], NAROUZE SAMER Attending Unavailable PERRY MD~[id number], PERRY MOON Attending Unavailable ROBERTS CHAPELIC Primary Care Unavailable PERRY ~[id number], PERRY MOON Admitting Unavailable TINNIE, SERGIO Primary Care Unavailable NAROUZE MD~[id number], NAROUZE SAMER Attending Unavailable NAROUZE MD~[id number], NAROUZE SAMER Admitting Unavailable [facility] SERGIO Primary Care Unavailable NAROUZE MD~[id number], NAROUZE SAMER Attending Unavailable NAROUZE MD~[id number], NAROUZE SAMER Admitting Unavailable NAROUZE MD~[id number], NAROUZE SAMER Attending Unavailable NAROUZE MD~[id number], NAROUZE SAMER Admitting Unavailable TINNIE, SERGIO Primary Care Unavailable VICKY MCKEON~[id number], PERRY MOON Attending Unavailable [facility] SERGIO Primary Care Unavailable VICKY MCKEON~[id number], PERRY MOON Admitting Unavailable VICKY MCKEON~[id number], PERRY MOON Attending Unavailable TINNIE, SERGIO Primary Care Unavailable VICKY MCKEON~[id number], PERRY MOON Admitting Unavailable Parveen MCKEON, Sergio Jensen Primary Care Provider Franc Quezada MD Primary Care Provider Franc Quezada MD Primary Care Provider FRANC QUEZADA Primary Care Unavailable SELF, SELF Referring Unavailable SARA MCLAUGHLIN Attending Unavailable SARA MCLAUGHLIN Attending Unavailable FRANC QUEZADA Referring Unavailable FRANC QUEZADA Primary Care Unavailable BAILEY, SERGIO A Primary Care Unavailable SEMPLE, JEEVAN Attending Unavailable BAILEY, SERGIO A Primary Care Unavailable SEMPLE, JEEVAN Referring Unavailable BAILEY, SERGIO A Primary Care Unavailable Franc Quezada MD Primary Care Provider Dr. Ashish Rojas MD Attending Provider Dr. Ashish Rojas MD Referring Provider [phone] Brent Nuñez DO Attending Provider [phone] Brent Nuñez DO Emergency Provider Carmen COWAN, Dr. Pena Emergency Provider Rodolfo MCKEON, Dr. Cobian Admit Provider Rodolfo MCKEON, Dr. Cobian Other Provider Checo COWAN, Dr. Payton Attending Provider Yolanda COWAN, Dr. Cormier Other Provider Rodolfo MCKEON, Dr. Cobian Attending Provider Checo COWAN, Dr. Payton Other Provider Tyler MCKEON, Dr. Ken Ledezma Admit Provider Tyler MCKEON, Dr. Ken Ledezma Attending Provider Franc Quezada MD Referring Provider Irene COWNA, Dr. Santamaria Attending Provider Irene COWAN, Dr. Santamaria Other Provider Vilma Berrios Attending Provider Tyler MCKEON, Dr. Ken Ledezma Other Provider Jenniffer COWAN, Dr. Mecca Saba Attending Provide r Franc Quezada MD Attending Provider Vilma Berrios Referring Provider Franc Quezada MD Primary Care Provider Franc Quezada MD Attending Provider Franc Quezada MD Referring Provider Vilma Berrios Attending Provider Jazzmine MCKEON, Dr. Andrew Patterson Attending Provider Dr. Andrew Dover MD, V Referring Provider Franc Quezada MD Primary Care Provider Franc Quezada MD Referring Provider Yecenia Joaquin Attending Provider Yecenia Joaquin Referring Provider Judi, Chalon Primary Care Unavailable Judi, Chalon Attending Unavailable Judi, Chalon Referring Unavailable Judi, Chalon Primary Care Unavailable Bladimir Coleman Attending Unavailable Vilma Vasquez Attending Unavailabl e Vilma Vasquez Referring Unavailabl e Judi, Chalon Primary Care Unavailable Judi, Chalon Primary Care Unavailable Tyler, Ken Chi Attending Unavailable Tyler, Ken Chi Admitting Unavailable Judi, Chalon Primary Care Unavailable Jean Morales Attending Unavailable Judi, Chalon Primary Care Unavailable Judi, Chalon Attending Unavailable Nilesh Gaona Consulting Unavailable Nilesh Gaona Admitting Unavailable Casa Jain Attending Unavailable Judi, Chalon Primary Care Unavailable Yecenia Pace Referring Unavailable Yecenia Pace Attending Unavailable Judi, Chalon Primary Care Unavailable Judi, Chalon Primary Care Unavailable Bob, Charleston Referring Unavailable Bob, Ashish Attending Unavailable Judi, Chalon Primary Care Unavailable Walter FLOTATION TENDER HELPER, Parisa Attending Unavailable Walter FLOTATION TENDER HELPER, Parisa Referring Unavailable Judi, Chalon Primary Care Unavailable Walter FLOTATION TENDER HELPER, Parisa Attending Unavailable Walter FLOTATION TENDER HELPER, Parisa Referring Unavailable Judi, Chalon Primary Care Unavailable Walter FLOTATION TENDER HELPER, Parisa Attending Unavailable Walter FLOTATION TENDER HELPER, Parisa Referring Unavailable Judi, Chalon Primary Care Unavailable Yecenia Pace Attending Unavailable Atanasov, Yecenia Referring Unavailable Judi, Chalon Primary Care Unavailable Brent Nuñez Attending Unavailable Judi, Chalon Referring Unavailable Judi, Chalon Attending Unavailable Judi, Chalon Primary Care Unavailable Judi, Chalon Attending Unavailable Judi, Chalon Primary Care Unavailable Judi, Chalon Attending Unavailable Judi, Chalon Referring Unavailable Judi, Chalon Primary Care Unavailable Judi, Chalon Primary Care Unavailable Judi, Chalon Referring Unavailable Rosalio Bonilla Attending Unavailable Judi, Chalon Primary Care Unavailable Aranza Reynolds Admitting Unavailable Fito Kessler Attending Unavailable Aranza Reynolds Consulting Unavailable Casa Guerrero Consulting Unavailable Judi, Chalon Primary Care Unavailable Bob, Ashish Attending Unavailable Judi, Chalon Attending Unavailable Judi, Chalon Referring Unavailable Judi, Chalon Primary Care Unavailable Judi, Chalon Referring Unavailable Oli VALLE, Wanda Attending Unavailable Judi, Chalon Primary Care Unavailable Judi, Chalon Referring Unavailable Judi, Chalon Primary Care Unavailable Friend, Rosalio Consulting Unavailable Friend, Rosalio Attending Unavailable Judi, Chalon Primary Care Unavailable Aranza Reynolds Consulting Unavailable Rodolfo, Aranza Admitting Unavailable Fito Kessler Attending Unavailable Fito Kessler Consulting Unavailable [employer] Consulting Unavailable sandra Randall, Nilesh Referring Unavailable de Randall, Nilesh Consulting Unavailable Gaona, Nilesh Admitting Unavailable Friend, Rosalio Attending Unavailable Judi, Chalon Primary Care Unavailable Casa Jain Consulting Unavailable Casa Jain Attending Unavailable WhitesideRandallNilesh gottlieb Attending Unavailable Judi, Chalon Primary Care Unavailable ReynoldsAranza Attending Unavailable Judi, Chalon Primary Care Unavailable Tyler, Ken Chi Admitting Unavailable SementiMecca Attending Unavaila ble Tyler, Ken Chi Consulting Unavailable Judi, Chalon Referring Unavailable AtanasovYecenia Attending Unavailable Judi, Chalon Primary Care Unavailable Judi, Chalon Referring Unavailable Judi, Chalon Primary Care Unavailable Ashish Rojas Attending Unavailable Judi, Chalon Primary Care Unavailable Judi, Chalon Referring Unavailable AtanasovYecenia Attending Unavailable Judi, Chalon Referring Unavailable Judi, Chalon Primary Care Unavailable Vilma Vasquez Attending Unavailabl e Judi, Chalon Referring Unavailable Vilma Vasquez Attending Unavailabl e Judi, Chalon Primary Care Unavailable Sibilia Andrew V Attending Unavailable Sibilia, Andrew V Referring Unavailable Judi, Chalon Primary Care Unavailable Allergies Allergy Classification Reported Allergen(s) Allergy Type Date of Onset Reaction(s) Facility (20 sources) DULoxetine; Translations: [DULOXETINE] Drug Allergy 8 Other: See Comments [facility] (1 source) NO KNOWN ALLERGIES; Translations: [NO KNOWN ALLERGIES] Propensity to adverse reactions to drug (disorder) [facility] Medications Current Medications Medication Drug Class(es) Dates Sig (Normalized) Sig (Original) acetaminophen 325 mg / HYDROcodone bitartrate 5 mg oral tablet (20 sources) Opioid Agonist Start: 09-20-2024 Hydrocodone-Acetam inophen 5-325 mg tablet Active 1 {tbl} PO AT BEDTIME as needed September 20, 2024 12:00am Start: 06-21-2023 End: 06-19-2024 Hydrocodone-Acetaminophen 5- 325 mg tablet Discontinued 1 {tbl} PO Q8H as needed for pain May 22, 2024 12:31pm June 19, 2024 6:02pm On Hold: MD Zhou Start: 06-21-2023 take 1 tablet by parul th every eight hours Hydrocodone-Acetaminophen Active 1 TABLE T PO Q8H June 21, 2023 1:00am Start: 04-21-2022 End: 01-25-2023 Hydrocodone-Acetaminophen 5- 325 mg tablet Discontinued 1 {tbl} PO EVERY 6 HOURS as needed for pain 12 April 21, 2022 January 25, 2023 8:20pm Start: 04-21-2022 End: 01-25-2023 take 1 tablet by mouth every six hours Hydrocodone-Acetaminophen Discontinued 1 TABLET PO EVERY 6 HOURS 12 April 21, 2022 January 25, 2023 8:20pm Start: 03-03-2022 End: 02-17-2023 Hydrocodone-Acetaminophen 5- 325 mg tablet Discontinued 1 {tbl} PO Q8H as needed for pain 9 March 03, 2022 January 25, 2023 8:20pm Start: 03-03-2022 End: 01-25-2023 take 1 tablet by mouth every eight hours Hydrocodone-Acetaminophen Discontinued 1 TABLET PO Q8H 9 March 03, 2022 January 25, 2023 8:20pm Start: 03-26-2017 End: 03-15-2018 Hydrocodone-Acetaminophen 1 TABLET tablet Discontinued 1 - 2 {tbl} PO EVERY 4 HOURS NEEDED as needed for Pain March 26, 2017 12:00am March 15, 2018 8:04am Start: 03-26-2017 End: 03-15-2018 take 1 tablet by mouth every four hours as needed Hydrocodone-Acetaminophen Discontinued 1 - 2 TABLET PO EVERY 4 HOURS NEEDED March 26, 2017 12:00am March 15, 2018 8:04am Comment on above: Take 1 tablet by parul th every 8 hours as needed for pain. amoxicillin 875 mg oral tablet (20 sources) Penicillin-class Antibacterial Start: End: take 1 tablet by mouth twice daily amoxicillin (AMOXIL) 875 mg tablet Indications: UTI symptoms , Recurrent UTI (urinary tract infection) Take 1 tablet by mouth two times a day for 10 days. 20 tablet 08/15/2024 08/25/2024 Active Start: 07-26-2024 End: 08-02-2024 take 1 capsule by mouth every twelve hours amoxicillin (AMOXIL) 500 mg capsule Take 1 capsule by mouth every 12 hours for 7 days. 14 capsule 07/26/2024 08/02/2024 Active Start: 01-10-2020 End: 06-19-2022 Amoxicillin 500 mg tablet Ta ke 6 tablets by mouth 1 hour before dental procedure and 2 tablets by mouth 6 hours after. 16 tablet 2 01/10/2020 06/19/2022 Discontinued (Course of therapy completed) Comment on above: Take 6 tablets by mo [facility] 1 hour before dental procedure and 2 tablets by mouth 6 hours after. amoxicillin 875 mg / clavulanate 125 mg oral tablet (7 sources) Penicillin-class Antibacterial Start: End: take 1 tablet by mouth twice daily amoxicillin-clavul anate potassium (AUGMENTIN) 875-125 mg per tablet Take 1 tablet by mouth two times a day for 5 days. 10 tablet 08/28/2024 09/02/2024 Active Start: 07-01-2024 End: 09-20-2024 Amoxicillin-Pot Clavulanate (Augmentin) 500-125 mg tablet Discontinued 1 {tbl} PO THREE TIMES A DAY July 01, 2024 1:00am September 20, 2024 3:36pm Start: 06-19-2022 End: 06-26-2022 take 1 tablet by mouth twice daily amoxicillin-clavulanic acid (AUGMENTIN) 875-125 mg per tablet Take 1 tablet by mouth twice daily for 7 days. 14 tablet 0 06/19/2022 06/26/2022 Active Comment on above: Take 1 tablet by parul twice daily for 7 days. ascorbic acid 500 mg oral tablet (20 sources) Vitamin C Start: 12-12-2019 take 1 tablet by mouth twice daily at mealtime ascorbic acid, vitamin C, (VITAMIN C) 500 mg tablet Take 1 tablet by mouth twice daily with meals. 60 tablet 12/12/2019 Active End: 12-21-2023 take 1 tablet by mouth once daily ascorbic acid (Vitamin C) 500 mg tablet Take 1 tablet (500 mg) by mouth once daily. 12/21/2023 Discontinued (Med List Cleanup) Comment on above: Take 1 tablet by parul th twice daily with meals. aspirin 81 mg delayed release oral tablet (20 sources) Platelet Aggregation Inhibitor, Nonsteroidal Anti-inflammatory Drug Start: 04-23-2024 take 1 tablet by mouth once daily Aspirin (Adult Aspirin Regimen) 81 mg tablet,delayed release (DR/EC) Active 81 mg PO daily May 06, 2024 1:00am Start: 02-17-2023 End: 03-19-2023 take 1 tablet by mouth once daily aspirin 81 mg chewable tablet Take 1 tablet by mouth once daily. 30 tablet 02/17/2023 Active End: 12-21-2023 aspirin 81 mg capsule Take b y mouth. 12/21/2023 Discontinued (Med List Cleanup) Comment on above: Take 1 tablet by parul th once daily. atorvastatin 20 mg oral tablet (7 sources) HMG-CoA Reductase Inhibitor Start : 04-23 take 1 tablet by mouth once daily Atorvastatin 20 mg tablet Active 20 mg PO daily May 06, 2024 1:00am onabotulinumtoxina 100 unt injection (8 sources) Acetylcholine Release Inhibitor Start : 08-18 onabotulinumtoxinA (Botox) injection 100 Units calcium carbonate 500 mg chewable tablet (9 sources) calcium carbonat e (Tums) 200 mg calcium chewable tablet Chew 1 tablet (500 mg) once daily. Active calcium chloride 0.0014 meq/ml / potassium chloride 0.004 meq/ml / sodium chloride 0.103 meq/ml / sodium lactate 0.028 meq/ml injectable solution (1 source) Start : 12-24 take 100 mL intravenously every hour 100 mL/hr, intravenous, Continuous, Starting on Mon12/25/23 at 1145, Preprocedure CALCIUM CITRATE/VITAMIN D3 (CITRACAL + D ORAL) (20 sources) CALCIUM CITRATE/VITAMIN D3 (CITRACAL + D ORAL) Indications: Osteoporosis, unspecified Take by mouth once daily. Active CALCIUM CITRATE/ VITAMIN D3 (CITRACAL + D ORAL) Indications: Osteoporosis, unspecified Take by mouth once daily. 0 Active Comment on above: Take by mouth once d aily. cholecalciferol 0.05 mg oral capsule (20 sources) Vitamin D Start: 07-20-2017 take 1 capsule by mouth once daily Cholecalciferol, Vitamin D3, 2,000 unit cap Take 1 capsule by mouth once daily. 07/20/2017 Active take 1 capsule by mouth once sha ly cholecalciferol (Vitamin D3) 25 MCG (1000 UT) capsule Take 1 capsule (25 mcg) by mouth once daily. Active Comment on above: Take 1 capsule by mo uth once daily. dicyclomine hydrochloride 20 mg oral tablet (9 sources) Anticholinergic Start: 06-19-20 End: 06-18-20 24 take 1 tablet by mouth three times daily as needed for muscle spasms dicyclomine (Bentyl) 20 mg tablet Indications: Ischemic colitis (Multi) Take 1 tablet (20 mg) by mouth 3 times a day as needed (Abdominal spasms, cramping). 60 tablet 2 06/19/2023 06/18/2024 Active Docusate (2 sources) docusate sodium (STOOL SOFTENER ORAL) Take by mouth. Active docusate sodium 50 mg / sennosides, chcf 8.6 mg oral tablet (4 sources) Start: 07-01-20 Sennosides-Docusat e Sodium (Stimulant Laxative Plus) 8.6-50 mg Tablet Active 2 {tbl} PO TWICE A DAY 120 July 01, 2024 1:00am DULoxetine 20 mg delayed release oral capsule (20 sources) Serotonin and Norepinephrine Reuptake Inhibitor Start: 05-06-20 take 1 capsule by mouth once daily Duloxetine 20 mg capsule,delayed release(DR/EC) Active 20 mg PO DAILY May 06, 2024 1:00am Start: 03-26-2017 End: 03-15-2018 take 1 capsule by mouth once daily Duloxetine 60 MG capsule,delayed release(DR/EC) Discontinued 60 mg PO DAILY March 26, 2017 12:00am March 15, 2018 8:04am estradiol 0.1 mg/ml vaginal cream (4 sources) Estrogen Start: 11-29-2023 estradiol (Estrace) 0.01 % (0.1 mg/gram) vaginal cream Indications: atrophic vaginitis associated with menopause Use a pea sized amount in the vagina twice weekly at bedtime 42.5 g 2 11/29/2023 Active fluconazole 200 mg oral tablet (1 source) Azole Antifungal Start: 12-25-2023 End: 12-28-2023 take 1 tablet by mouth once daily fluconazole (Diflucan) 200 mg tablet Indications: Mariah esophagitis (Multi) Take 1 tablet (200 mg) by mouth once daily for 3 days. 3 tablet 12/25/2023 12/28/2023 Active hydrocortisone 0.025 mg/mg topical ointment (20 sources) Corticosteroid Start: 06-10-2020 hydrocortisone 2.5 % ointment Indications: AK (actinic keratosis) Apply to affected area on face 2 times daily as needed for 1-2 weeks after PDT 30 g 06/10/2020 Active Comment on above: Apply to affected ar ea on face 2 times daily as needed for 1-2 weeks after PDT ibuprofen 200 mg oral tablet (9 sources) Nonsteroidal Anti-inflammatory Drug ibuprofen 200 mg tablet Take by mouth every 6 hours if needed for mild pain (1 - 3). Active losartan potassium 50 mg oral tablet (10 sources) Angiotensin 2 Receptor Oliver Start: 06-28-2024 take 1 tablet by mouth once daily Losartan 50 mg tablet Active 50 mg PO daily June 28, 2024 2:42pm Start: 06-10-2024 End: 06-17-2024 take 1 tablet by mouth once daily Losartan 50 mg tablet Discontinued 50 mg PO daily June 10, 2024 1:00am June 17, 2024 1:58pm lubiprostone 0.008 mg oral capsule (8 sources) Chloride Channel Activator Start: 07-11-2023 End: 07-10-2024 take 1 capsule by mouth twice daily at mealtime lubiprostone (Amitiza) 8 mcg capsule Indications: Irritable bowel syndrome with constipation , Ischemic colitis (Multi) Take 1 capsule (8 mcg) by mouth 2 times a day with meals. Take with meals 60 capsule 5 07/11/2023 07/10/2024 Active 24 hr metoprolol succinate 50 mg extended release oral tablet (20 sources) beta-Adrenergic Oliver Start: 05-06-2024 take 1 tablet by mouth once daily Metoprolol Succinate 50 mg tablet extended release 24 hr Active 50 mg PO daily May 06, 2024 1:00am Start: 03-03-2022 End: 06-06-2023 take 1 tablet by mouth once daily Metoprolol Succinate 50 mg tablet extended release 24 hr Discontinued 50 mg PO DAILY March 03, 2022 12:00am June 06, 2023 2:45pm Comment on above: Take 50 mg by mouth once daily. mv-mn/folic acid/vit [id number] (ALIVE ONCE DAILY WOMEN 50 PLUS ORAL) (9 sources) mv-mn/folic acid /vit [id number] (ALIVE ONCE DAILY WOMEN 50 PLUS ORAL) Take by mouth. Active mv-mn/folic acid /vit [id number] (ALIVE ONCE DAILY WOMEN 50 PLUS ORAL) Take by mouth. 0 Active NON FORMULARY (9 sources) NON FORMULARY 1 each. Cryofreeze CBD roll on Active NON FORMULARY 1 each. Cryofreeze CBD roll on 0 Active ondansetron 4 mg disintegrating oral tablet (20 sources) Serotonin-3 Receptor Antagonist Start: 11-13-2024 take 1 tablet by mouth every eight hours Ondansetron 4 mg tablet,disintegrating Active 4 mg PO Q8H November 13, 2024 12:00am Start: 12-25-2023 End: 12-25-2023 4 mg, intravenous, Once, On Mon12/25/23 at 1145, For 1 dose, Preprocedure, When administering via IV Push, administer over 3-5 minutes. Start: 07-17-2023 take 1 tablet by parul th every eight hours as needed Ondansetron 8 MG Tab Dispersible tablet Take 1 tablet by mouth Every 8 hours as needed. 07/17/2023 Active Start: 06-06-2023 End: 06-21-2024 take 2 tablets by mouth every eight hours as needed for nausea and vomiting Ondansetron 4 mg tablet,disintegrating Discontinued 8 mg PO Q8H as needed for nausea and vomiting June 06, 2023 2:46pm June 21, 2024 11:19am Start: 06-06-2023 take 8 mg by mouth e very eight hours Ondansetron Active 8 MG PO Q8H June 06, 2023 2:46pm Start: 03-03-2022 End: 06-06-2023 take 1 tablet by mouth every eight hours as needed for nausea and vomiting Ondansetron 4 mg tablet,disintegrating Discontinued 4 mg PO Q8H as needed for nausea and vomiting March 03, 2022 12:00am June 06, 2023 2:52pm Start: 03-15-2018 End: 01-09-2019 Ondansetron Hcl (Zofran) 4 m g tablet Discontinued 4 mg PO 2 to 3 times per day as needed March 15, 2018 12:00am January 09, 2019 2:42pm Start: 01-15-2018 take 2-4 mg by mouth every eight hours as needed ondansetron (ZOFRAN) 4 mg tablet Take 0.5-1 tablets by mouth every 8 hours as needed for Nausea/Vomiting. 30 tablet 5 01/15/2018 Active End: 12-21-2023 take 1 tablet by mouth every eight hours as needed ondansetron (Zofran) 8 mg tablet Take 1 tablet (8 mg) by mouth every 8 hours if needed for nausea or vomiting. 12/21/2023 Discontinued (Med List Cleanup) Comment on above: Take 0.5-1 tablets b y mouth every 8 hours as needed for Nausea/Vomiting. polyethylene glycol 3350 18640 mg powder for oral solution (4 sources) Osmotic Laxative Start: 07-01-2024 Polyethylene Glycol 3350 (Miralax) 17 gram/dose powder Active 17 g PO TWICE A DAY July 01, 2024 1:00am 125 ml sodium chloride 9 mg/ml prefilled syringe (13 sources) Start: 03-28-2024 End: 03-28-2024 sodium chloride 0.9% flush 10 mL Start: 03-28-2024 End: 03-28-2024 10 mL, intra-catheter, Once, On Vandana 03/28/24 at 1230, For 1 dose Start: 11-29-2023 sodium chlorid e (PF) 0.9% solution 10 mL Start: 08-18-2023 End: 08-18-2023 sodium chloride (PF) 0.9% so lution 10 mL Start: 08-18-2023 End: 08-18-2023 sodium chloride (PF) 0.9% so lution 10 mL sucralfate 1000 mg oral tablet (20 sources) Aluminum Complex Start: 01-19-2024 End: 07-01-2024 take 1 tablet by mouth 1 hour(s) before mealtime Sucralfate 1 gram Tablet Active 1 g PO ONE HOURS BEFORE MEALS & BED 120 July 01, 2024 1:27pm Start: 11-08-2023 End: 01-07-2024 take 1 tablet by mouth four times daily 1 hour(s) before bedtime sucralfate (Carafate) 1 gram tablet Indications: Gastroesophageal reflux disease with esophagitis without hemorrhage Take 1 tablet (1 g) by mouth 4 times a day. Take 1 hour before meals and at bedtime 120 tablet 1 11/08/2023 01/07/2024 Active Start: 04-29-2021 End: 01-25-2023 take 1 mL by mouth twice daily as needed Sucralfate (Carafate) 100 mg/mL suspension Discontinued 10 mL PO TWICE A DAY as needed for stomach upset April 29, 2021 6:49pm January 25, 2023 8:20pm take 10 mL by mouth four times daily sucralfate (Carafate) 100 mg/mL suspension Take 10 mL (1 g) by mouth 4 times a day. Active SUMAtriptan 50 mg oral tablet (6 sources) Serotonin-1b and Serotonin-1d Receptor Agonist Start: 07-04-2024 take 1 tablet by mouth twice daily as needed for headache SUMAtriptan (IMITREX) 50 mg tablet TAKE 1 TABLET BY MOUTH TWICE DAILY NEEDED FOR HEADACHE 07/04/2024 Active Start: 01-18-2024 End: 05-22-2024 take 1 tablet by mouth twice daily as needed for headache Sumatriptan Succinate 50 mg tablet Discontinued 50 mg PO TWICE DAILY NEEDED as needed for headache January 18, 2024 12:00am May 22, 2024 12:32pm 24 hr venlafaxine 37.5 mg extended release oral capsule (20 sources) Serotonin and Norepinephrine Reuptake Inhibitor Start: 02-17-2023 End: 02-22-2023 take 1 capsule by mouth once daily at bedtime venlafaxine ER (EFFEXOR XR) 37.5 mg 24 hr capsule Take 1 capsule by mouth daily at bedtime for 5 days. 5 capsule 02/17/2023 Active Start: 01-09-2019 End: 06-06-2023 take 1 capsule by mouth once daily Venlafaxine 150 mg capsule,extended release 24hr Discontinued 75 mg PO DAILY January 09, 2019 12:00am June 06, 2023 2:47pm Start: 01-09-2019 End: 06-06-2023 take 75 mg by mouth once daily Venlafaxine Discontinued 75 MG PO DAILY January 09, 2019 12:00am June 06, 2023 2:47pm End: 02-17-2023 take 1 capsule by mouth every twenty-four hours venlafaxine ER (EFFEXOR XR) 150 mg 24 hr capsule Take 150 mg by mouth. 0 02/17/2023 Discontinued Comment on above: Take 150 mg by mouth . Take 1 capsule by mo [facility] daily at bedtime for 5 days. Completed/Discontinued Medications Medication Drug Class(es) Dates Sig (Normalized) Sig (Original) acetaminophen 500 mg oral tablet (20 sources) Start: 07-01-2024 End: 09-20-2024 take 2 tablets by mouth every eight hours Acetaminophen 500 mg Tablet Discontinued 1000 mg PO EVERY 8 HOURS 180 July 01, 2024 1:00am September 20, 2024 3:36pm Start: 06-19-2024 End: 06-21-2024 take 2 tablets by mouth every eight hours Acetaminophen 500 mg Tablet Discontinued 1000 mg PO EVERY 8 HOURS 0 June 19, 2024 1:00am June 21, 2024 11:19am Start: 05-06-2022 End: 02-17-2023 take 2 tablets by mouth every eight hours as needed acetaminophen (TYLENOL) 500 mg tablet Take 2 tablets by mouth every 8 hours as needed for pain. 02/17/2023 Active acetaminophen (T ylenol) 500 mg tablet Take by mouth every 6 hours if needed for mild pain (1 - 3). Active Comment on above: Take 2 tablets by mo [facility] every 8 hours. Take 2 tablets by mo [facility] every 8 hours as needed for pain. acetaminophen 250 mg / aspirin 250 mg / caffeine 65 mg oral tablet (20 sources) Platelet Aggregation Inhibitor, Nonsteroidal Anti-inflammatory Drug, Central Nervous System Stimulant, Methylxanthine Start: 07-25-19 End: 02-18-20 take 1 tablet by mouth every six hours as needed Aspirin-Acetaminophe n-Caffeine (EXCEDRIN MIGRAINE) 250-250-65 mg per tablet Take 1 tablet by mouth every 6 hours as needed (migraine). 40 tablet 0 07/25/2014 02/17/2023 Discontinued Comment on above: [facility] as needed ([facility]igraine). acetaminophen 300 mg / butalbital 50 mg / caffeine 40 mg oral capsule (20 sources) Barbiturate, Central Nervous System Stimulant, Methylxanthine Start: 05-01-20 End: 02-22-20 acetaminophen 300 mg-caffeine 40 mg-butalbital 50 mg (FIORICET) per capsule Take by mouth. 0 05/01/2021 02/21/2022 Discontinued Start: 05-01-2021 End: 01-25-2023 Kpdooakxlr-Wjojibwslwykh-Dtm f (Fioricet) 50-300-40 mg capsule Discontinued 1 NMA PO THREE TIMES A DAY as needed for pain May 01, 2021 12:00am January 25, 2023 8:19pm Comment on above: Take by mouth. [id number] 200 actuat albuterol 0.09 mg/actuat metered dose inhaler (20 sources) beta2-Adrenergic Agonist Start: 06-06-2023 End: 05-22-2024 Albuterol Sulfate 90 mcg/actuation HFA aerosol inhaler Discontinued 2 NMA INHALATION Q4H as needed June 06, 2023 1:00am May 22, 2024 12:33pm Start: 06-06-2023 take 1 puff(s) by in halation every four hours Albuterol Sulfate Active 2 PUFF INHALATION Q4H June 06, 2023 1:00am Start: 11-15-2019 albuterol HFA (PROVENTIL HFA, VENTOLIN HFA) 90 mcg/actuation inhaler 11/15/2019 Active Start: 11-15-2019 take 1 puff(s) by mo ut every four hours as needed albuterol HFA (PROVENTIL HFA, VENTOLIN HFA) 90 mcg/actuation inhaler INHALE 1 PUFF BY MOUTH EVERY 4 HOURS NEEDED AND 15 MINUTES PRIOR TO ACTIVITY 11/15/2019 Active Comment on above: INHALE 1 PUFF BY PARUL TH EVERY 4 HOURS NEEDED AND 15 MINUTES PRIOR TO ACTIVITY albuterol 0.833 mg/ml / ipratropium bromide 0.167 mg/ml inhalation solution (4 sources) Anticholinergic, beta2-Adrenergic Agonist Start: 06-21-20 End: 07-01-20 take 1 mL by inhalation every four hours as needed for wheezing Ipratropium-Albuter ol 0.5 mg-3 mg(2.5 mg base)/3 mL solution for nebulization Discontinued 3 mL INHALATION Q4H as needed for shortness of breath or wheezing June 21, 2024 1:00am July 01, 2024 1:15pm alendronic acid 70 mg oral tablet (6 sources) Bisphosphonate Start: 06-11-20 End: 06-28-20 take 1 tablet by mouth every week Alendronate 70 mg tablet Discontinued 70 mg PO EVERY WEEK June 21, 2024 1:00am June 28, 2024 1:55pm Arthritis Pain Compound (17 sources) Start: 06-19-20 End: 06-19-20 Arthritis Pain Compound Discontinued 1 NMA topical TWICE A DAY 0 June 19, 2024 1:00am June 19, 2024 10:19pm Start: 06-19-2024 End: 06-21-2024 Arthritis Pain Compound Disc ontinued 1 NMA TOPICAL TWICE A DAY June 19, 2024 1:00am June 21, 2024 11:19am Start: 06-26-2023 End: 05-22-2024 Arthritis Pain Compound Disc ontinued 2 NMA TOPICAL TWICE A DAY 0 June 26, 2023 1:00am May 22, 2024 12:33pm Start: 06-26-2023 Arthritis Pain Compound Active 2 CLICK topical TWICE A DAY 0 June 26, 2023 1:00am Start: 06-26-2023 Arthritis Pain Compound Active 2 CLICK topical TWICE A DAY 0 June 26, 2023 12:00am baclofen 10 mg oral tablet (8 sources) gamma-Aminobutyric Acid-ergic Agonist Start: 04-24-2020 End: 02-21-2022 take 1 tablet by mouth at bedtime baclofen (LIORESAL) 10 mg tablet TAKE 1 TABLET BY MOUTH AT BEDTIME TO HELP MUSCLES RELAX 0 04/24/2020 02/21/2022 Discontinued Comment on above: TAKE 1 TABLET BY MOUTH AT BEDTIME TO HEL P MUSCLES RELAX benzocaine 140 mg/ml / butamben 20 mg/ml / tetracaine 20 mg/ml mucosal spray (1 source) Diana Local Anesthetic, Standardized Chemical Allergen Start: 12-25-2023 End: 12-25-2023 Topical, As needed, Starting on Mon12/25/23 at 1155, Intraprocedure Budesonide-Formo terol (20 sources) Corticosteroid, beta2-Adrenergic Agonist Start: 05-01-2021 End: 06-21-2024 Budesonide-Formoter ol 160-4.5 mcg/actuation Hfa Aerosol Inhaler Discontinued 2 NMA INHALATION TWICE A DAY May 01, 2021 12:00am June 21, 2024 11:19am Start: 05-01-2021 take 1 puff(s) by in halation twice daily Budesonide-Formoterol Active 2 PUFF INHALATION TWICE A DAY April 30, 2021 11:00pm Start: 05-01-2021 take 1 puff(s) by in halation twice daily Budesonide-Formoterol Active 2 PUFF INHALATION TWICE A DAY May 01, 2021 12:00am Start: 11-15-2019 End: 02-21-2022 take 2 puff(s) by inhalation twice daily budesonide-formoterol (SYMBICORT) 160-4.5 mcg/actuation inhaler Inhale 2 Puffs as instructed twice daily. 0 11/15/2019 02/21/2022 Discontinued Start: 11-15-2019 take 2 puff(s) by in halation twice daily budesonide-formoterol (SYMBICORT) 160-4.5 mcg/actuation inhaler Inhale 2 Puffs as instructed twice daily. 0 11/15/2019 Active budesonide-formo terol 160-4.5 mcg/puff Aerosol inhaler Inhale 2 puffs. Active take 2 puff(s) by in halation twice daily budesonide-formoterol (SYMBICORT) 160-4.5 mcg/actuation inhaler Inhale 2 Puffs as instructed two times a day. Shortness of breath Active take 2 puff(s) by mo uth twice daily budesonide-formoteroL (Symbicort) 160-4.5 mcg/actuation inhaler Inhale 2 puffs 2 times a day. Rinse mouth with water after use to reduce aftertaste and incidence of candidiasis. Do not swallow. Active take 2 puff(s) by mo uth twice daily budesonide-formoteroL (Symbicort) 160-4.5 mcg/actuation inhaler Inhale 2 puffs 2 times a day. Rinse mouth with water after use to reduce aftertaste and incidence of candidiasis. Do not swallow. 0 Active take 2 puff(s) by in halation twice daily budesonide-formoterol (SYMBICORT) 160-4.5 mcg/actuation inhaler Inhale 2 Puffs as instructed two times a day. Shortness of breath 0 Active Comment on above: Inhale 2 Puffs as in structed twice daily. Inhale 2 Puffs as in structed two times a day. Shortness of breath 168 hr buprenorphine 0.0075 mg/hr transdermal system (20 sources) Partial Opioid Agonist Start: 01-26-20 End: 06-21-20 apply 7.5 ug transdermal route every week Buprenorphine 7.5 mcg/hour patch weekly Discontinued 1 NMA TD Q7D January 25, 2023 12:00am June 22, 2023 12:09am applied Monday01/22/23 apply 1 dose transdermal route e very hour buprenorphine (BUTRANS) 7.5 mcg/hour transdermal patch Apply 1 Patch as directed every Monday. Active Comment on above: Apply 1 Patch as dir ected every Monday. celecoxib 200 mg oral capsule (20 sources) Nonsteroidal Anti-inflammatory Drug Start: 8 End: 9 take 1 capsule by mouth once daily Celecoxib (Celebrex) 200 mg capsule Discontinued 200 mg PO DAILY March 15, 2018 12:00am January 09, 2019 2:42pm cephalexin 500 mg oral capsule (2 sources) Cephalosporin Antibacterial Start: 5 End: 5 take 1 capsule by mouth three times daily cephALEXin (KEFLEX) 500 mg capsule Indications: Acute cystitis with hematuria Take 1 capsule by mouth three times a day for 5 days. 15 capsule 07/24/2024 07/26/2024 Discontinued citalopram 20 mg oral tablet (20 sources) Serotonin Reuptake Inhibitor Start: 3 End: 4 take 1 tablet by mouth once daily Citalopram 20 mg tablet Discontinued 20 mg PO DAILY June 06, 2023 1:00am January 18, 2024 2:09am take 2 tablets by mouth once sha ly citalopram hydrobromide (CELEXA) 10 mg tablet Take 20 mg by mouth once daily. Active take 1 tablet by mouth once parul y citalopram hydrobromide (CELEXA) 10 mg tablet Take 10 mg by mouth once daily. 0 Active Comment on above: Take 10 mg by mouth once daily. Take 20 mg by mouth once daily. Cranberry Extract (11 sources) Non-Standardized Food Allergenic Extract, Non-Standardized Plant Allergenic Extract Start: 05-22-2024 End: 06-21-2024 take 1 capsule by mouth once daily Cranberry Extract (Cranberry Concentrate) 500 mg capsule Discontinued 50 mg PO DAILY May 22, 2024 12:31pm June 21, 2024 11:18am administer with a meal Start: 01-18-2024 End: 05-22-2024 take 1 capsule by mouth once daily Cranberry Extract (Cranberry Concentrate) 500 mg capsule Discontinued 500 mg PO DAILY January 18, 2024 12:00am May 22, 2024 12:33pm administer with a meal Cranberry (Thera Cran HP for Kids) 50 MG Chew Tab Chew. Active cranberry extrac t 50 mg tablet,chewable Chew. Active 1 ml denosumab 60 mg/ml prefilled syringe (20 sources) RANK Ligand Inhibitor Start: 05-01-2021 End: 01-25-2023 Denosumab (Prolia) 60 mg/mL Syringe Discontinued 60 mg SC May 01, 2021 12:00am January 25, 2023 8:20pm Start: 05-01-2021 End: 01-25-2023 Denosumab (Prolia) 60 mg/mL Syringe Discontinued 60 MG SC May 01, 2021 12:00am January 25, 2023 8:20pm diclofenac sodium 0.01 mg/mg topical gel (8 sources) Nonsteroidal Anti-inflammatory Drug Start: 05-09-2022 End: 08-07-2022 apply 2 g topically four times daily diclofenac (VOLTAREN) 1 % topical gel Apply 2 g to affected area four times daily. 240 g 2 05/09/2022 08/07/2022 Comment on above: Apply 2 g to affecte d area four times daily. diphenhydrAMINE hydrochloride 25 mg oral tablet (7 sources) Histamine-1 Receptor Antagonist End: 12-21-2023 diphenhydrAMINE (Sominex) 25 mg tablet Take 1 tablet (25 mg) by mouth as needed at bedtime for sleep. 12/21/2023 Discontinued (Med List Cleanup) FLUoxetine 40 mg oral capsule (20 sources) Serotonin Reuptake Inhibitor Start: 01-18-2024 End: 05-22-2024 Fluoxetine 40 mg capsule Discontinued 20 mg PO DAILY January 18, 2024 12:00am May 22, 2024 12:32pm Start: 10-25-2023 take 2 tablets by mo uth in the morning FLUoxetine (PROzac) 20 mg tablet Take 2 tablets (40 mg) by mouth early in the morning.. 10/25/2023 Active Start: 03-15-2018 End: 01-09-2019 take 1 capsule by mouth once daily Fluoxetine (Prozac) 40 mg capsule Discontinued 40 mg PO DAILY March 15, 2018 12:00am January 09, 2019 2:42pm 60 actuat fluticasone propionate 0.232 mg/actuat / salmeterol xinafoate 0.014 mg/actuat dry powder inhaler (4 sources) Corticosteroid, beta2-Adrenergic Agonist Start: 07-01-2024 End: 09-20-2024 Fluticasone Propion-Salmeterol 232-14 mcg/actuation Aerosol Powdr Breath Activated Discontinued 1 NMA INHALATION EVERY 12 HOURS July 01, 2024 1:00am September 20, 2024 3:37pm gabapentin 100 mg oral capsule (16 sources) Anti-epileptic Agent Start: 07-01-2024 End: 09-20-2024 take 1 capsule by mouth twice daily Gabapentin 100 mg capsule Discontinued 100 mg PO TWICE A DAY July 01, 2024 1:00am September 20, 2024 3:36pm Start: 06-17-2024 End: 07-01-2024 take 1 capsule by mouth three times daily Gabapentin 300 mg capsule Discontinued 300 mg PO THREE TIMES A DAY 42 June 17, 2024 1:00am July 01, 2024 1:12pm Start: 05-06-2022 End: 02-17-2023 take 2 capsules by mouth every eight hours gabapentin (NEURONTIN) 100 mg capsule Take 2 capsules by mouth every 8 hours for 30 days. 180 capsule 0 05/06/2022 02/17/2023 Discontinued Comment on above: Take 2 capsules by m outh every 8 hours for 30 days. L-Methylfolate 15 mg tab (12 sources) Start: 03-30-2020 End: 05-04-2022 take 1 tablet by mouth once daily L-Methylfolate 15 mg tab Take 1 tablet by mouth once daily. 0 03/30/2020 05/04/2022 Discontinued (Other) Start: 03-30-2020 take 1 tablet by parul th once daily L-Methylfolate 15 mg tab Take 1 tablet by mouth once daily. 0 03/30/2020 Active Comment on above: Take 1 tablet by parul th once daily. lidocaine hydrochloride 0.02 mg/mg topical gel (9 sources) Antiarrhythmic, Amide Local Anesthetic Start: 03-28-2024 End: 03-28-2024 lidocaine 2 % mucosal jelly (Uro-Jet) 1 Application Start: 03-28-2024 End: 03-28-2024 1 Application, urethral, Onc e, On Vandana 03/28/24 at 1230, For 1 dose, Apply to urethra. Start: 03-28-2024 End: 03-28-2024 lidocaine (Xylocaine) 10 mg/ mL (1 %) injection 5 mL Start: 03-28-2024 End: 03-28-2024 5 mL, infiltration, Once, On Vandana 03/28/24 at 1230, For 1 dose Start: 08-18-2023 End: 08-18-2023 lidocaine (Uro-Jet) 2 % jell y 1 Application Start: 08-18-2023 End: 08-18-2023 lidocaine (Uro-Jet) 2 % jell y 1 Application Start: 08-18-2023 End: 08-18-2023 lidocaine (Xylocaine) 10 mg/ mL (1 %) injection 50 mg Start: 05-02-2022 End: 05-09-2022 apply 1 dose transdermal route once daily, then apply 1 dose transdermal route every twelve hours lidocaine (SALONPAS) 4 % patch Apply 1 Patch as directed once daily for 7 days. Remove patch after 12 hours 7 Patch 0 05/02/2022 05/09/2022 Comment on above: Apply 1 Patch as dir ected once daily for 7 days. Remove patch after 12 hours melatonin 3 mg oral tablet (4 sources) Start: End: take 1 tablet by mouth at bedtime Melatonin 3 mg Tablet Discontinued 3 mg PO AT BEDTIME July 01, 2024 1:00am September 20, 2024 3:36pm meloxicam 7.5 mg oral tablet (2 sources) Nonsteroidal Anti-inflammatory Drug Start: End: take 1 tablet by mouth once daily at mealtime meloxicam (MOBIC) 7.5 mg tablet Take 1 tablet by mouth once daily. With Food 60 tablet 1 11/17/2021 02/21/2022 Discontinued Comment on above: Take 1 tablet by parul th once daily. With Food metoclopramide 10 mg oral tablet (20 sources) Dopamine-2 Receptor Antagonist Start: End: take 1 tablet by mouth four times daily as needed for headache Metoclopramide Hcl 10 MG tablet Discontinued 10 mg PO 4 TIMES DAILY as needed for Headache March 26, 2017 12:00am March 15, 2018 8:04am 5 ml midazolam 1 mg/ml injection (1 source) Benzodiazepine Start: End: 2 mg, intravenous, Once as needed, anxiety, Starting on 12/25/23 at 1127, For 1 dose, Preprocedure nabumetone 750 mg oral tablet (20 sources) Nonsteroidal Anti-inflammatory Drug Start: End: take 1 tablet by mouth once daily Nabumetone 750 MG tablet Discontinued 750 mg PO DAILY March 26, 2017 12:00am March 15, 2018 8:04am naproxen 250 mg oral tablet (7 sources) Nonsteroidal Anti-inflammatory Drug End: take 1 tablet by mouth twice daily naproxen (Naprosyn) 250 mg tablet Take 1 tablet (250 mg) by mouth 2 times daily (morning and late afternoon). 12/21/2023 Discontinued (Med List Cleanup) nitrofurantoin, macrocrystals 25 mg / nitrofurantoin, monohydrate 75 mg oral capsule (4 sources) Nitrofuran Antibacterial Start: End: nitrofurantoin (macrocrystal-monohyd rate) (Macrobid) capsule 100 mg Start: 03-28-2024 End: 03-28-2024 take 100 mg by mouth once 100 mg, oral, Once, On Vandana at 1245, For 1 dose, Suspected Indication (Select all that apply): Medical Prophylaxis, Indications: Medical Prophylaxis Start: 08-18-2023 End: 08-18-2023 nitrofurantoin (macrocrystal -monohydrate) (Macrobid) capsule 100 mg Start: 08-18-2023 End: 08-18-2023 nitrofurantoin (macrocrystal -monohydrate) (Macrobid) capsule 100 mg nortriptyline 25 mg oral capsule (9 sources) Tricyclic Antidepressant Start: 04-23-2024 End: 07-01-2024 take 1 capsule by mouth at bedtime Nortriptyline 25 mg capsule Discontinued 25 mg PO AT BEDTIME May 06, 2024 1:00am July 01, 2024 6:26pm take 1 capsule by mo ut once daily at bedtime nortriptyline (Pamelor) 10 mg capsule Ta ke 1 capsule (10 mg) by mouth once daily at bedtime. Active 24 hr oxybutynin chloride 10 mg extended release oral tablet (20 sources) Cholinergic Muscarinic Antagonist Start: 12-05-2019 End: 05-22-2024 take 1 tablet by mouth once daily Oxybutynin Chloride 10 mg tablet extended release 24hr Discontinued 10 mg PO DAILY June 06, 2023 1:00am May 22, 2024 12:32pm Start: 12-05-2019 oxybutynin ER (DITROPAN XL) 10 mg 24 hr tablet 12/05/2019 Active Start: 03-26-2017 End: 03-15-2018 take 1 tablet by mouth three times daily Oxybutynin Chloride 5 MG tablet Discontinued 5 mg PO THREE TIMES A DAY March 26, 2017 12:00am March 15, 2018 8:04am Comment on above: TAKE 1 TABLET BY PARUL ONCE DAILY AT SUPPER TIME oxyCODONE hydrochloride 5 mg oral tablet (20 sources) Opioid Agonist Start: End: take 1 tablet by mouth every six hours as needed for pain Oxycodone 5 mg tablet Discontinued 5 mg PO EVERY 6 HOURS as needed for pain 10 7 July 01, 2024 September 20, 2024 3:36pm Start: 05-06-2022 End: 02-17-2023 take 1 tablet by mouth every six hours as needed for pain oxyCODONE IR (ROXICODONE) 5 mg immediate release tablet Indications: Hip pain, acute, right Take 1 tablet by mouth every 6 hours as needed for pain. 30 tablet 0 05/06/2022 02/17/2023 Discontinued Comment on above: Take 1 tablet by parul th every 6 hours as needed for pain. pantoprazole 40 mg delayed release oral tablet (20 sources) Proton Pump Inhibitor Start: End: take 1 tablet by mouth twice daily Pantoprazole 40 mg Tablet,Delayed Release (Dr/Ec) Discontinued 40 mg PO TWICE A DAY 60 January 19, 2024 12:00am May 22, 2024 12:33pm Start: 06-19-2023 End: 06-18-2024 take 1 tablet by mouth once daily Pantoprazole (Protonix) 40 mg tablet,delayed release (DR/EC) Discontinued 40 mg PO DAILY June 26, 2023 1:00am January 18, 2024 2:09am Start: 06-06-2023 End: 01-19-2024 Pantoprazole (Protonix) 40 m g tablet,delayed release (DR/EC) Discontinued 20 mg PO DAILY June 06, 2023 2:46pm January 19, 2024 2:11pm Start: 03-15-2018 End: 01-09-2019 take 40 mg by mouth once daily Pantoprazole (Protonix) [address] for susp in packet Discontinued 40 mg PO DAILY March 15, 2018 12:00am January 09, 2019 2:42pm Start: 05-22-2016 End: 06-06-2023 take 1 tablet by mouth once daily Pantoprazole (Protonix) 40 mg tablet,delayed release (DR/EC) Discontinued 40 mg PO DAILY January 27, 2023 12:00am June 06, 2023 2:52pm Comment on above: Take 1 tablet by parul th daily before dinner. Take 40 mg by mouth. Take 1 tablet by parul th once daily. Take 40 mg by mouth once daily. phenazopyridine hydrochloride 200 mg oral tablet (4 sources) Start: 03-28-2024 End: 03-28-2024 phenazopyridine (Pyridium) tablet 200 mg Start: 03-28-2024 End: 03-28-2024 take 200 mg by mouth once 200 mg, oral, Once, On Vandana at 1245, For 1 dose, May discolor urine (orange). Start: 08-18-2023 End: 08-18-2023 phenazopyridine (Pyridium) t ablet 200 mg Start: 08-18-2023 End: 08-18-2023 phenazopyridine (Pyridium) t ablet 200 mg polyethylene glycol [id number] [id number] mg / potassium chloride 2970 mg / sodium bicarbonate 6740 mg / sodium chloride 5860 mg / sodium sulfate 89793 mg powder for oral solution (2 sources) Osmotic Laxative Start: 02-21-2022 End: 02-21-2022 peg 3350-Electrolytes (GOLYTELY) 236-22.74-6.74 -5.86 gram suspension Take 4,000 mL by mouth one time only for 1 dose. 1 Each 0 02/21/2022 02/21/2022 Comment on above: Take 4,000 mL by parul th one time only for 1 dose. predniSONE 20 mg oral tablet (20 sources) Start: 04-21-2022 End: 01-25-2023 take 2 tablets by mouth once daily Prednisone 20 mg tablet Discontinued 40 mg PO DAILY April 21, 2022 12:00am January 25, 2023 8:20pm Start: 04-21-2022 End: 01-25-2023 take 40 mg by mouth once daily Prednisone Discontinued 40 MG PO DAILY April 21, 2022 12:00am January 25, 2023 8:20pm Start: 05-01-2021 End: 02-17-2023 take 1 tablet by mouth once daily Prednisone 20 mg tablet Discontinued 20 mg PO DAILY May 01, 2021 12:00am January 25, 2023 8:20pm Start: 11-10-2017 End: 03-15-2018 take 2 tablets by mouth once daily at mealtime Prednisone 20 MG tablet Discontinued 40 mg PO DAILY November 10, 2017 12:00am March 15, 2018 8:04am With food Start: 11-10-2017 End: 03-15-2018 take 40 mg by mouth once daily at mealtime Prednisone Discontinued 40 MG PO DAILY November 10, 2017 12:00am March 15, 2018 8:04am With food Comment on above: Take 20 mg by mouth once daily. ramipril 2.5 mg oral capsule (20 sources) Angiotensin Converting Enzyme Inhibitor Start: 06-06-20 End: 01-18-20 take 1 capsule by mouth once daily Ramipril 2.5 mg capsule Discontinued 2.5 mg PO DAILY June 06, 2023 1:00am January 18, 2024 2:08am Comment on above: Take 2.5 mg by mouth once daily. tamsulosin hydrochloride 0.4 mg oral capsule (6 sources) alpha-Adrenergic Oliver Start: 07-01-20 End: 09-21-19 take 1 capsule by mouth once daily Tamsulosin 0.4 mg Capsule Discontinued 0.4 mg PO DAILY@1730 30 July 01, 2024 1:00am September 20, 2024 3:36pm tiZANidine 4 mg oral tablet (8 sources) Central alpha-2 Adrenergic Agonist Start: 02-14-20 End: 02-22-20 tiZANidine (ZANAFLEX) 4 mg tablet Take 1 tab when needed for headaches , up to one daily 30 tablet 02/14/2020 02/21/2022 Discontinued Comment on above: Take 1 tab when need ed for headaches , up to one daily Vit B Complex 100 Combo No.2 (B-100 Complex) 100 mg tablet extended release (9 sources) Start: 06-06-20 End: 05-22-20 Vit B Complex 100 Combo No.2 (B-100 Complex) 100 mg tablet extended release Discontinued {tbl} PO June 06, 2023 1:00am May 22, 2024 12:32pm Start: 06-06-2023 Vit B Complex 100 Combo No.2 (B-100 Complex) 100 mg tablet extended release Active TABLET PO June 06, 2023 1:00am Start: 06-06-2023 Vit B Complex 100 Combo No.2 (B-100 Complex) 100 mg tablet extended release Active TABLET PO June 06, 2023 12:00am zuPOO capsule (4 sources) Start: 01-18-2024 End: 06-21-2024 take 1 capsule by mouth once daily zuPOO capsule Discontinued 1 - 2 NMA PO DAILY January 18, 2024 12:00am June 21, 2024 11:18am Problems Active Problems Problem Classification Problem Date Documented Da te Episodic/Chronic Abdominal pain (20 sources) Abdominal pain; Translations: [Unspecified abdominal pain] Episodic Chronic obstructive pulmonary disease and bronchiectasis (20 sources) Chronic obstructive lung disease; Translations: [Chronic obstructive pulmonary disease, unspecified] Onset: 8 11-29-2019 Chronic Comment on above: PRN INHALER AT HOME/ NEBULIZER TX IN TCU Coronary atherosclerosis and other heart disease (6 sources) Coronary arteriosclerosis; Translations: [Atherosclerotic heart disease of [place] coronary artery without angina pectoris] Onset: 4 07-02-2024 Chronic Deficiency and other anemia (20 sources) Anemia; Translations: [Anemia, unspecified] 02-22-2023 Episodic Deficiency and other anemia (5 sources) Anemia, unspecified; Translations: [Anemia, unspecified] Onset: 5 06-26-2023 Episodic Disorders of lipid metabolism (5 sources) Hyperlipidemia; Translations: [Hyperlipidemia, unspecified] 07-02-2024 Chronic Esophageal disorders (20 sources) Gastroesophageal reflux disease; Translations: [Gastro-esophageal reflux disease without esophagitis] Onset: 3 03-01-2017 Chronic Comment on above: ON PROTONIX Essential hypertension (20 sources) Hypertensive disorder; Translations: [Essential (primary) hypertension] Onset: 2 05-06-2022 Chronic Comment on above: CONTROLLED WITH MED Fluid and electrolyte disorders (4 sources) Lactic acidosis; Translations: [Lactic acidosis] 01-18-2024 Episodic Gastritis and duodenitis (1 source) Gastritis, unspecified, without bleeding; Translations: [Gastritis without bleeding, unspecified chronicity, unspecified gastritis type] Onset: 3 Episodic Gastroduodenal ulcer (except hemorrhage) (20 sources) Peptic ulcer; Translations: [Peptic ulcer, site unspecified, unspecified as acute or chronic, without hemorrhage or perforation] Onset: 4 07-11-2023 Chronic Genitourinary symptoms and ill-defined conditions (4 sources) Urge incontinence; Translations: [Urge incontinence of urine] Onset: 4 Chronic Glaucoma (20 sources) Preglaucoma, unspecified, unspecified eye; Translations: [Preglaucoma, unspecified] Onset: 3 03-01-2017 Chronic Headache; including migraine (3 sources) Chronic migraine without aura, intractable, without status migrainosus; Translations: [CHR MIGRAINE W/O AURA INTRCT W/O SM] Onset: 4 Chronic Headache; including migraine (20 sources) Headache; Translations: [Headache, unspecified headache type] Onset: 3 07-19-2017 Episodic Headache; including migraine (2 sources) Headache; including migraine; Translations: [HEADACHE UNSPECIFIED] Onset: 4 Mood disorders (20 sources) Severe recurrent major depression; Translations: [Major depressive disorder, recurrent severe without psychotic features] Onset: 6 01-15-2018 Chronic Comment on above: ON MED Mycoses (3 sources) Candidal esophagitis; Translations: [Candidiasis of the esophagus] Onset: 4 Episodic Neoplasms of unspecified nature or uncertain behavior (20 sources) Neoplasm of uncertain behavior of kidney; Translations: [Neoplasm of uncertain behavior of unspecified kidney] Onset: 1 12-27-2017 Episodic Nutritional deficiencies (20 sources) Vitamin D deficiency; Translations: [Vitamin D deficiency, unspecified] Onset: 6 07-19-2017 Chronic Nutritional deficiencies (4 sources) Cobalamin deficiency; Translations: [Deficiency of other specified B group vitamins] 05-06-2024 Episodic Osteoarthritis (20 sources) Localized, secondary osteoarthritis of the pelvic region and thigh; Translations: [Other unilateral secondary osteoarthritis of hip] Onset: 6 03-01-2017 Chronic Osteoporosis (20 sources) Senile osteoporosis; Translations: [Age-related osteoporosis without current pathological fracture] Onset: 8 01-15-2018 Chronic Other aftercare (1 source) 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; Translations: [OTH RN PLACEMENT CURRENT DRUG THERAPY] Onset: 4 Episodic Other aftercare (1 source) correction (current) use of opiate analgesic; Translations: [RN PLACEMENT CURRNT USE OPIATE ANALGES] Onset: 4 Episodic Other and ill-defined heart disease (4 sources) Left ventricular hypertrophy; Translations: [Cardiomegaly] 05-06-2024 Chronic Other and ill-defined heart disease (9 sources) Left ventricular cardiac dysfunction; Translations: [Heart disease, unspecified] 05-22-2024 Chronic Other and ill-defined heart disease (1 source) Heart disease, unspecified; Translations: [Heart disease, unspecified] Onset: 5 Chronic Other and ill-defined heart disease (1 source) Cardiomegaly; Translations: [Cardiomegaly] Onset: 4 Chronic Other circulatory disease (9 sources) Stenosis of right subclavian artery; Translations: [Stricture of artery] 06-28-2024 Chronic Other congenital anomalies (20 sources) Congenital spondylolisthesis; [...] hip joint] Chronic Other connective tissue disease (14 sources) History of total knee arthroplasty; Translations: [Presence of unspecified artificial knee joint] 06-22-2023 Chronic Other connective tissue disease (4 sources) Presence of unspecified artificial knee joint; Translations: [Knee joint replacement] 06-26-2023 Chronic Other connective tissue disease (1 source) Presence of artificial knee joint, bilateral; Translations: [PRESENCE ARTIFICIAL KNEE JNT BILAT] Onset: 4 Chronic Other connective tissue disease (1 source) Presence of artificial hip joint, bilateral; Translations: [PRESENCE ARTIFICIAL HIP JOINT BILAT] Onset: 4 Chronic Other connective tissue disease (1 source) Presence of right artificial hip joint; Translations: [PRESENCE RIGHT ARTIFICIAL HIP JOINT] Onset: 4 Chronic Other connective tissue disease (3 sources) History of revision of left total knee arthroplasty; Translations: [Presence of left artificial knee joint] 07-01-2024 Chronic Other connective tissue disease (2 sources) History of repair of hip joint; Translations: [Presence of left artificial hip joint] 07-01-2024 Chronic Other connective tissue disease (2 sources) Presence of left artificial knee joint; Translations: [Status post revision of total replacement of left knee] Onset: 5 Chronic Other connective tissue disease (1 source) Presence of left artificial hip joint; Translations: [History of left hip replacement] Onset: 5 Chronic Other connective tissue disease (1 source) Bilateral trochanteric bursitis; Translations: [Trochanteric bursitis, right hip] Episodic Other connective tissue disease (1 source) Trochanteric bursitis of right hip; Translations: [Trochanteric bursitis, right hip] Episodic Other connective tissue disease (9 sources) Pain in lower limb; Translations: [Pain in right leg] 06-28-2023 Episodic Other connective tissue disease (1 source) 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; Translations: [Other specified disorders of muscle] 07-20-2023 Episodic Other connective tissue disease (2 sources) Other specified disorders of muscle; Translations: [Other specified disorders of muscle] Onset: 4 Episodic Other connective tissue disease (1 source) Myositis, unspecified; Translations: [MYOSITIS UNSPECIFIED] Onset: 4 Episodic Other connective tissue disease (5 sources) Recurrent falls ; Translations: [Repeated falls] 06-19-2024 Episodic Other connective tissue disease (5 sources) Neuropathic pain; Translations: [Neuralgia and neuritis, unspecified] 07-02-2024 Episodic Other diseases of bladder and urethra (20 sources) Overactive bladder; Translations: [Overactive bladder] Onset: 1 12-14-2020 Chronic Other diseases of bladder and urethra (4 sources) Overactive bladder; Translations: [Overactive bladder] Onset: 4 Chronic Other gastrointestinal disorders (10 sources) 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; Translations: [Irritable bowel syndrome with constipation] Onset: 4 07-11-2023 Chronic Other gastrointestinal disorders (1 source) Other constipation; Translations: [Other constipation] Onset: 8 Episodic Other gastrointestinal disorders (2 sources) Alteration in bowel elimination; Translations: [Change in bowel habit] Episodic Other gastrointestinal disorders (9 sources) Occult blood in stools; Translations: [Other fecal abnormalities] 06-21-2023 Episodic Other gastrointestinal disorders (2 sources) Diarrhea; Translations: [Diarrhea] Onset: 4 Episodic Other gastrointestinal disorders (2 sources) Dysphagia, unspecified; Translations: [Dysphagia, unspecified] Onset: 4 Episodic Other gastrointestinal disorders (5 sources) Dysphagia; Translations: [Dysphagia, unspecified] 12-25-2023 Episodic Comment on above: RESOLVED Other gastrointestinal disorders (4 sources) History of esophageal ulcer; Translations: [Personal history of other diseases of the digestive system] 01-18-2024 Episodic Other gastrointestinal disorders (5 sources) Obstipation; Translations: [Constipation, unspecified] 07-02-2024 Episodic Other hereditary and degenerative nervous system conditions (4 sources) Impaired cognition; Translations: [Mild cognitive impairment, so stated] 06-21-2024 Chronic Comment on above: WITH HOSPITALIZATION Other injuries and conditions due to external causes (1 source) Rupture of muscle; Translations: [Other injury of unspecified body region, initial encounter] 07-05-2024 Episodic Other lower respiratory disease (20 sources) Dyspnea; Translations: [Dyspnea, unspecified] 03-15-2018 Episodic Other lower respiratory disease (1 source) Dyspnea, unspecified; Translations: [Dyspnea, unspecified] Onset: 5 Episodic Other lower respiratory disease (1 source) Other forms of dyspnea; Translations: [Other forms of dyspnea] Onset: 5 Episodic Other nervous system disorders (9 sources) Unable to walk; Translations: [Difficulty in walking, not elsewhere classified] 06-21-2023 Chronic Other nervous system disorders (4 sources) Difficulty in walking, not elsewhere classified; Translations: [Difficulty in walking] 06-26-2023 Chronic Other nervous system disorders (1 source) Chronic pain syndrome; Translations: [CHRONIC PAIN SYNDROME] Onset: 4 Chronic Other nervous system disorders (1 source) Other chronic pain; Translations: [OTHER CHRONIC PAIN] Onset: 4 Chronic Other non-traumatic joint disorders (20 sources) Hip pain; Translations: [Pain in right hip] Onset: 2 05-06-2022 Episodic Other non-traumatic joint disorders (9 sources) Effusion of right knee joint; Translations: [Effusion, right knee] 06-22-2023 Episodic Other non-traumatic joint disorders (19 sources) Pain in right knee; Translations: [Acute pain of right knee] 06-21-2023 Episodic Other non-traumatic joint disorders (4 sources) Effusion, right knee; Translations: [Effusion of joint, lower leg] 06-26-2023 Episodic Other non-traumatic joint disorders (5 sources) Effusion of joint of left knee; Translations: [Effusion, left knee] 06-19-2024 Episodic Other screening for suspected conditions (not mental disorders or infectious disease) (20 sources) Patient encounter status; Translations: [Encounter for screening for cardiovascular disorders] Onset: 8 01-15-2018 Episodic Other upper respiratory infections (1 source) Pharyngitis; Translations: [Acute pharyngitis, unspecified] Episodic Peripheral and visceral atherosclerosis (20 sources) Ischemic colitis; Translations: [Vascular disorder of [...] or radiculopathy, lumbar region] Onset: 7 Chronic Unclassified (1 source) LOW BACK PAIN, UNSPECIFIED; Translations: [LOW BACK PAIN, UNSPECIFIED] Onset: 4 Unclassified (1 source) Acidosis, unspecified; Translations: [Acidosis, unspecified] Onset: 4 Past or Other Problems Problem Classification Problem Date Documented Da te Episodic/Chronic Acute posthemorrhagic anemia (5 sources) Acute posthemorrhagic anemia; Translations: [Acute posthemorrhagic anemia] Onset: 4 01-18-2024 Episodic Cardiac dysrhythmias (5 sources) Palpitations; Translations: [Palpitations] Onset: 4 05-06-2024 Episodic Deficiency and other anemia (20 sources) Iron deficiency anemia; Translations: [Iron deficiency anemia, unspecified] Onset: 6 03-27-2017 Episodic E Codes: Adverse effects of medical drugs (5 sources) Adverse reaction to drug; Translations: [Adverse effect of unspecified drugs, medicaments and biological substances, initial encounter] Onset: 4 01-18-2024 Episodic Gastrointestinal hemorrhage (20 sources) Gastrointestinal hemorrhage; Translations: [Gastrointestinal hemorrhage, unspecified] Onset: 3 02-14-2023 Episodic Genitourinary symptoms and ill-defined conditions (20 sources) Microscopic hematuria; Translations: [Other microscopic hematuria] Onset: 1 03-01-2017 Episodic Immunizations and screening for infectious disease (20 sources) Anti-nuclear factor positive; Translations: [Other specified abnormal immunological findings in serum] Onset: 7 03-27-2017 Episodic Malaise and fatigue (10 sources) Fatigue; Translations: [Other fatigue] Onset: 4 05-06-2024 Episodic Nonspecific chest pain (20 sources) Chest pain; Translations: [Chest pain, unspecified] Onset: 4 01-25-2023 Episodic Comment on above: 06/2024 HAD HEART CA TH 06/10/24 Other aftercare (20 sources) Drug therapy finding; Translations: [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] Onset: 7 03-02-2017 Episodic Other aftercare (1 source) correction (current) use of non-steroidal anti-inflammatories (NSAID); Translations: [SENIOR CARE USE NSAID] Onset: 4 Episodic Other aftercare (1 source) correction (current) use of aspirin; Translations: [RN PLACEMENT CURRENT USE OF ASPIRIN] Onset: 4 Episodic Other and unspecified benign neoplasm (20 sources) History of polyp of colon; Translations: [Personal history of colonic polyps] Onset: 8 07-19-2017 Episodic Other connective tissue disease (20 sources) Muscle, ligament and fascia disorders; Translations: [Disorder of muscle, unspecified] Onset: 9 03-01-2017 Episodic Other connective tissue disease (20 sources) Muscle weakness; Translations: [Muscle weakness (generalized)] Onset: 9 03-01-2017 Episodic Other connective tissue disease (20 sources) Trochanteric bursitis of left hip; Translations: [Trochanteric bursitis, left hip] Onset: 1 02-19-2021 Episodic Other connective tissue disease (1 source) Repeated falls; Translations: [Repeated falls] Onset: 4 Episodic Other eye disorders (20 sources) Tear film insufficiency; Translations: [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] Onset: 3 03-01-2017 Episodic Other gastrointestinal disorders (5 sources) Other fecal abnormalities; Translations: [Nonspecific abnormal findings in stool contents] Onset: 4 06-26-2023 Episodic Other gastrointestinal disorders (6 sources) Esophageal dysphagia; Translations: [Other dysphagia] Onset: 4 12-14-2023 Episodic Other gastrointestinal disorders (1 source) Constipation, unspecified; Translations: [Constipation, unspecified] Onset: 5 Episodic Other gastrointestinal disorders (1 source) Personal history of other diseases of the digestive system; Translations: [Personal history of other diseases of the digestive system] Onset: 4 Episodic Other injuries and conditions due to external causes (20 sources) H/O: vertebral fracture; Translations: [Personal history of (healed) traumatic fracture] Onset: 4 01-15-2018 Episodic Other injuries and conditions due to external causes (20 sources) H/O: musculoskeletal disease; Translations: [Personal history of other (healed) physical injury and trauma] Onset: 5 03-01-2017 Episodic Other lower respiratory disease (1 source) Pleurodynia; Translations: [Pleurodynia] Onset: 8 Episodic Other lower respiratory disease (20 sources) Dyspnea on exertion; Translations: [Dyspnea, unspecified] Onset: 8 02-21-2018 Episodic Other lower respiratory disease (1 source) Hypoxemia; Translations: [Hypoxemia] Onset: 5 Episodic Other non-traumatic joint disorders (1 source) Pain in right hip; Translations: [Hip pain, acute, right] Onset: 2 Episodic Other non-traumatic joint disorders (1 source) Pain in left hip; Translations: [PAIN IN LEFT HIP] Onset: 4 Episodic Other non-traumatic joint disorders (2 sources) Effusion, left knee; Translations: [Effusion, left knee] Onset: 5 Episodic Other non-traumatic joint disorders (2 sources) Pain in left knee; Translations: [Pain in left knee] Onset: 4 Episodic Phlebitis; thrombophlebitis and thromboembolism (9 sources) H/O: Deep vein thrombosis; Translations: [Personal history of other venous thrombosis and embolism] Onset: 4 01-18-2024 Episodic Comment on above: 50 YRS AGO Spondylosis; intervertebral disc disorders; other back problems (20 sources) Spinal stenosis of lumbar region; Translations: [Spinal stenosis, lumbar region without neurogenic claudication] Onset: 7 Episodic Sprains and strains (7 sources) Strain of left quadriceps muscle; Translations: [Strain of left quadriceps muscle, fascia and tendon, initial encounter] Onset: 4 07-05-2024 Episodic Unclassified (4 sources) Onset: 4 11-29-2023 Urinary tract infections (20 sources) Acute cystitis; Translations: [Acute cystitis without hematuria] Onset: 4 06-22-2023 Episodic Results Test Name Value Interpretation Reference Range Facility Absolute lymphocyte countOrd ered By: Yecenia Pace on 11-13-2024 Lymphocytes Auto (Unsp spec) [#/Vol] 1.83 10*3/uL 0.83-4.51 [facility] Absolute neutrophil countOrd ered By: Yecenia Pace on 11-13-2024 Neutrophils (Bld) [#/Vol] 2.5 10*3/uL 2.0-7.7 [facility] Automated lymphocyte count a s percentage of total leukocytesOrdered By: Yecenia Pace on 11-13-2024 Lymphocytes/100 WBC Auto (Unsp spec) 34.0 % 19-41 [facility] Basophil percentageOrdered B y: Yecenia Pace on 11-13-2024 Basophils/100 WBC (Bld) 0.7 % 0-[address] [facility] CBC W/Diff, Automatedon 10-31 Absolute Lymph 1.83 X10 3/uL Normal 0.83-4.51 [facility] Comment on above: Performed By: #### L 100.0100 ####[facility] [address] [place], [address] Absolute Neut 2.5 X10 3/uL Normal 2.0-7.7 [facility] Comment on above: Performed By: #### L 100.0100 ####[facility] [address] [place], [address] Basophils/100 WBC (Bld) 0.7 % Normal 0-[address] [facility] Comment on above: Performed By: #### L 100.0100 ####[facility] [address] [place], [address] Eosinophils/100 WBC (Bld) 8.2 % High 0-5 [facility] Comment on above: Performed By: #### L 100.0100 ####[facility] [address] [place], [address] Erythrocyte distribution width (RBC) [Ratio] 13.6 % Normal 11.6-14.6 [facility] Comment on above: Performed By: #### L 100.0100 ####[facility] [address] [place], [address] Hematocrit (Bld) [Volume fraction] 35.9 % Low 37-47 [facility] Comment on above: Performed By: #### L 100.0100 ####[facility] [address] [place], [address] Hemoglobin (Bld) [Mass/Vol] 11.7 g/dL Low 12.0-15.0 [facility] Comment on above: Performed By: #### L 100.0100 ####[facility] [address] [place], [address] IG% 0.200 Normal 0.0-0.9 [facility] Comment on above: Result Comment: IG% - Immature Granulocytes (promyelocytes, myelocytes andmetamyelocytes) > 1% indicates that a LEFT SHIFT is Present. Performed By: #### L 100.0100 ####[facility] [address] [place], [address] Lymphocytes/100 WBC (Bld) 34.0 % Normal 19-41 [facility] Comment on above: Performed By: #### L 100.0100 ####[facility] [address] [place], [id number] MCH (RBC) [Entitic mass] 31.7 pg Normal 27.0-32.0 [facility] Comment on above: Performed By: #### L 100.0100 ####[facility] [address] [place], [id number] MCHC (RBC) [Mass/Vol] 32.6 g/dL Normal 32-36 [facility] Comment on above: Performed By: #### L 100.0100 ####[facility] [address] [place], [address] MCV (RBC) [Entitic vol] 97.3 fL Normal 81-99 [facility] Comment on above: Performed By: #### L 100.0100 ####[facility] [address] [place], [id number] Monocytes/100 WBC (Bld) 10.8 % High 0-10 [facility] Comment on above: Performed By: #### L 100.0100 ####[facility] [address] [place], [address] Neutrophils/100 WBC (Bld) 46.1 % Low 47-70 [facility] Comment on above: Performed By: #### L 100.0100 ####[facility] [address] [place], [id number] Nucleated RBC (Bld) [#/Vol] 0 10*3/uL Normal 0-5 [facility] Comment on above: Performed By: #### L 100.0100 ####[facility] [address] [place], [id number] Platelet mean volume (Bld) [Entitic vol] 9.2 fL Normal 6.2-12.0 [facility] Comment on above: Performed By: #### L 100.0100 ####[facility] [address] [place], [address] Platelets (Bld) [#/Vol] 215 10*3/uL Normal 150-450 [facility] Comment on above: Performed By: #### L 100.0100 ####[facility] [address] [place], [address] RBC (Bld) [#/Vol] 3.69 10*6/uL Low 4.2-5.4 [facility] Comment on above: Performed By: #### L 100.0100 ####[facility] [address] [place], [address] RDW SD 48.2 fl High 35.1-43.9 [facility] Comment on above: Performed By: #### L 100.0100 ####[facility] [address] [place], [address] WBC (Bld) [#/Vol] 5.4 10*3/uL Normal 4.4-11.0 [facility] Comment on above: Performed By: #### L 100.0100 ####[facility] [address] [place], [address] Eosinophil percentageOrdered By: Yecenia Pace on 11-13-2024 Eosinophils/100 WBC (Bld) 8.2 % High 0-5 [facility] Erythrocyte distribution wid th ratioOrdered By: Yecenia Pace on 11-13-2024 Erythrocyte distribution width (RBC) [Ratio] 13.6 % 11.6-14.6 [facility] Erythrocyte distribution wid th standard deviationOrdered By: Yecenia Pace on 11-13-2024 Erythrocyte distribution width (RBC) [Ratio] 48.2 fl High 35.1-43.9 [facility] Gastroenterology Visit Repor ton 11-13-2024 Gastroenterology Visit Report Normal [facility] Hematocrit Auto (Bld) [Volum e fraction]Ordered By: Yecenia Pace on 11-13-2024 Hematocrit (Bld) [Volume fraction] 35.9 % Low 37-47 [facility] Hemoglobin measurementOrdere d By: Yecenia Pace on 11-13-2024 Hemoglobin (Bld) [Mass/Vol] 11.7 g/dL Low 12.0-15.0 [facility] Immature granulocytes/100 WB C Auto (Bld)Ordered By: Yecenia Pace on 11-13-2024 Immature granulocytes/100 WBC (Bld) 0.200 % 0.0-0.9 [facility] Comment on above: IG% - Immature Granu locytes (promyelocytes, myelocytes and metamyelocytes) > 1% indicates that a LEFT SHIFT is Present. MCV (mean corpuscular volume ) determinationOrdered By: Yecenia Pace on 11-13-2024 MCV (RBC) [Entitic vol] 97.3 fL 81-99 [facility] Mean corpuscular hemoglobin (MCH) determinationOrdered By: Yecenia Pace on 11-13-2024 MCH (RBC) [Entitic mass] 31.7 pg 27.0-32.0 [facility] Mean corpuscular hemoglobin concentration (MCHC) determinationOrdered By: Yecenia Pace on 11-13-2024 MCHC (RBC) [Mass/Vol] 32.6 g/dL 32-36 [facility] Mean platelet volume determi nationOrdered By: Yecenia Pace on 11-13-2024 Platelet mean volume (Bld) [Entitic vol] 9.2 fL 6.2-12.0 [facility] Monocyte percentageOrdered B y: Yecenia Pace on 11-13-2024 Monocytes/100 WBC (Bld) 10.8 % High 0-[address] [facility] Neutrophil percentageOrdered By: Yecenia Pace on 11-13-2024 Neutrophils/100 WBC (Bld) 46.1 % Low 47-70 [facility] Nucleated red blood cell per centageOrdered By: Yecenia Pace on 11-13-2024 Nucleated RBC/100 WBC (Bld) [Ratio] 0 % 0-5 [facility] Platelet countOrdered By: Silvana lizedgar Katelynn on 11-13-2024 Platelets (Bld) [#/Vol] 215 10*3/uL 150-450 [facility] RBC Auto (Bld) [#/Vol]Ordere d By: Yecenia Pace on 11-13-2024 RBC (Bld) [#/Vol] 3.69 10*6/uL Low 4.2-5.4 [facility] White blood cell (WBC) count Ordered By: Yecenia Pace on 11-13-2024 WBC (Bld) [#/Vol] 5.4 10*3/uL 4.4-11.0 [facility] Chest without Contraston Chest without Contrast Normal [facility] Anion gap in Serum or Plasma Ordered By: Vilma Vasquez on 09-20-2024 Anion gap [Moles/Vol] 9 mmol/L 5- [facility] BUN/creatinine ratioOrdered By: Vilma Vasquez on 09-20-2024 Urea nitrogen/Creatinine [Mass ratio] 14.3 mg/mg - [facility] Basic Metabolic Profile (BMP )on 09-20-2024 BUN/CRE 14.3 RATIO Normal 04-21 [facility] Comment on above: Performed By: #### L 503.7505, L500.2500 ####[facility] [address] [place], [address] Calcium [Mass/Vol] 9.9 mg/dL Normal 7.6-11.0 [facility] Comment on above: Performed By: #### L 503.7505, L500.2500 ####[facility] [address] [place], [address] Chloride [Moles/Vol] 102 mmol/L Normal 98-108 [facility] Comment on above: Performed By: #### L 503.7505, L500.2500 ####[facility] [address] [place], [address] CO2 [Moles/Vol] 27.4 mmol/L Normal 21.0-32.0 [facility] Comment on above: Performed By: #### L 503.7505, L500.2500 ####[facility] [address], [address] Creatinine [Mass/Vol] 0.80 mg/dL Normal 0.70-1.20 [facility] Comment on above: Performed By: #### L 503.7505, L500.2500 ####[facility] [address] [place], [address] GAP 9 Normal 5-15 [facility] Comment on above: Performed By: #### L 503.7505, L500.2500 ####[facility] [address] [place], [address] GFR/1.73 sq M.predicted among non-blacks MDRD (S/P/Bld) [Vol rate/Area] 72 mL/min/{1.73_m2} Normal >60 [facility] Comment on above: Result Comment: mL/m in/1.73m2 CKD-EPI Creatinine Equation (2020) Performed By: #### L 503.7505, L500.2500 ####[facility] [address] [place], [address] Glucose [Mass/Vol] 101 mg/dL High 70-99 [facility] Comment on above: Performed By: #### L 503.7505, L500.2500 ####[facility] [address] [place], [address] Potassium [Moles/Vol] 4.5 mmol/L Normal 3.3-5.1 [facility] Comment on above: Performed By: #### L 503.7505, L500.2500 ####[facility] [address], [address] Sodium [Moles/Vol] 138 mmol/L Normal 133-145 [facility] Comment on above: Performed By: #### L 503.7505, L500.2500 ####[facility] [address] [place], [place], [address] Urea nitrogen [Mass/Vol] 12 mg/dL Normal 4-19 [facility] Comment on above: Performed By: #### L 503.7505, L500.2500 ####[facility] [address] [place], [address] Carbon dioxide, total [Moles /volume] in Central venous bloodOrdered By: Vilma Vasquez on 09-20-2024 CO2 [Moles/Vol] 27.4 mmol/L 21.0-32.0 [facility] Cardiology Visit Reporton Cardiology Visit Report Normal [facility] Chloride assayOrdered By: Rohini Vasquez on 09-20-2024 Chloride [Moles/Vol] 102 mmol/L 98-108 [facility] GFR/1.73 sq M.predicted dean g non-blacks MDRD (S/P/Bld) [Vol rate/Area]Ordered By: Vilma Vasquez on 09-20-2024 Estimated GFR (MDRD) Non-Af Amer 72 >60 [facility] Comment on above: mL/min/1.73m2 CKD-EP I Creatinine Equation (2020) Glomerular filtration rate ( GFR) estimation/1.73 sq m using serum, plasma, or whole bOrdered By: Vilma Vasquez on 09-20-2024 GFR/1.73 sq M.predicted among non-blacks MDRD (S/P/Bld) [Vol rate/Area] 72 mL/min/{1.73_m2} >60 [facility] Comment on above: mL/min/1.73m2 CKD-EP I Creatinine Equation (2020) L503.7505on 09-20-2024 Natriuretic peptide B (Bld) [Mass/Vol] 417 pg/mL Normal <=1800 [facility] Comment on above: Result Comment: Hear t Failure Unlikely: < 300 pg/mLHeart Failure Likely< 50 Years: > 450 pg/mL50-75 Years: > 900 pg/mL>75 Years: > 1800 pg/mL Performed By: #### L 503.7505, L500.2500 ####[facility] [address] [place], [address] Laboratory - Chemistry and C hemistry - challengeOrdered By: Vilma Vasquez on 09-20-2024 Natriuretic peptide B (Bld) [Mass/Vol] 417 pg/mL <1800 [facility] Comment on above: Heart Failure Unlike ly: < 300 pg/mLHeart Failure Likely< 50 Years: > 450 pg/mL50-75 Years: > 900 pg/mL>75 Years: > 1800 pg/mL Potassium (Unsp spec) [Mass/ Vol]Ordered By: Vilma Vasquez on 09-20-2024 Potassium [Moles/Vol] 4.5 mmol/L 3.3-5.1 [facility] Potassium measurement (mass/ volume)Ordered By: Vilma Vasquez on 09-20-2024 Potassium (Unsp spec) [Mass/Vol] 4.5 mmol/L 3.3-5.1 [facility] Serum creatinine measurement (mass/volume)Ordered By: Vilma Vasquez on 09-20-2024 Creatinine [Mass/Vol] 0.80 mg/dL 0.70-1.20 [facility] Serum glucose measurement (m ass/volume)Ordered By: Vilma Vasquez on 09-20-2024 Glucose [Mass/Vol] 101 mg/dL High 70-99 [facility] Serum or plasma calcium anthony urement (mass/volume)Ordered By: Vilma Vasquez on 09-20-2024 Calcium [Mass/Vol] 9.9 mg/dL 7.6-11.0 [facility] Serum or plasma urea nitroge n measurement (mass/volume)Ordered By: Vilma Vasquez on 09-20-2024 Urea nitrogen [Mass/Vol] 12 mg/dL - [facility] Sodium levelOrdered By: Gildardo Vasquez on 09-20-2024 Sodium [Moles/Vol] 138 mmol/L 133-145 [facility] UA DIP, URINE (POC)on 2024 BILIRUBIN UA (POCT) Negative Negative [facility] CLARITY UA (POCT) Slightly Cloudy [facility] COLOR UA (POCT) Yellow [facility] GLUCOSE UA (POCT) Negative Negative mg/dL [facility] Hemoglobin Ql (U) Trace-intact Abnormal Negative [facility] Interpretation and review of laboratory results Abnormal [facility] KETONE UA (POCT) Negative Negative mg/dL [facility] LEUKOCYTES UA (POCT) Negative Negative [facility] NITRITE UA (POCT) Negative Negative [facility] PH UA (POCT) 7 4.5 - 8.0 [facility] Protein Ql (U) Trace Abnormal Negative mg/dL [facility] SPECIFIC GRAVITY UA (POCT) 1.015 1.005 - 1.030 [facility] UROBILINOGEN UA (POCT) 0.2 [facility] E.U./dL [facility] Location:[facility], [address] [place] [address], [address] [facility] POINT OF CARE [facility] UA DIP, URINE (POC)on 2024 BILIRUBIN UA (POCT) Negative Negative [facility] CLARITY UA (POCT) Cloudy [facility] COLOR UA (POCT) Yellow [facility] GLUCOSE UA (POCT) Negative Negative mg/dL [facility] Hemoglobin Ql (U) Small Abnormal Negative [facility] Interpretation and review of laboratory results Abnormal [facility] KETONE UA (POCT) Negative Negative mg/dL [facility] LEUKOCYTES UA (POCT) Large Abnormal Negative [facility] NITRITE UA (POCT) Negative Negative [facility] PH UA (POCT) 6.5 4.5 - 8.0 [facility] Protein Ql (U) 100 mg/dL Abnormal Negative [facility] SPECIFIC GRAVITY UA (POCT) 1.025 1.005 - 1.030 [facility] UROBILINOGEN UA (POCT) 0.2 [facility] E.U./dL [facility] Location:[facility], [address] [place] [address], [address] [facility] POINT OF CARE [facility] UA DIP, URINE (POC)on 2024 BILIRUBIN UA (POCT) Negative Negative [facility] CLARITY UA (POCT) Cloudy [facility] COLOR UA (POCT) Yellow [facility] GLUCOSE UA (POCT) Negative Negative mg/dL [facility] Hemoglobin Ql (U) Moderate Abnormal Negative [facility] Interpretation and review of laboratory results Abnormal [facility] KETONE UA (POCT) Trace Negative mg/dL [facility] LEUKOCYTES UA (POCT) Small Abnormal Negative [facility] NITRITE UA (POCT) Negative Negative [facility] PH UA (POCT) 6.5 4.5 - 8.0 [facility] Protein Ql (U) 100 mg/dL Abnormal Negative [facility] SPECIFIC GRAVITY UA (POCT) 1.020 1.005 - 1.030 [facility] UROBILINOGEN UA (POCT) 0.2 [facility]ida l E.U./dL [facility] Location:[facility], [address] [place] [address], [id number] [place] [address] POINT OF CARE [facility] Basic Metabolic Profile (BMP )on 07-18-2024 BUN Normal 7-18 [facility] Comment on above: Result Comment: Canc elled via OM: Order cancelled - Patient discharged Performed By: #### L 500.2500, L100.0100 ####[facility] [address] [place], [address] BUN/CRE Normal 10-20 [facility] Comment on above: Result Comment: Canc elled via OM: Order cancelled - Patient discharged Performed By: #### L 500.2500, L100.0100 ####[facility] [address] [place], [address] CA,Total Normal 8.5-10.1 [facility] Comment on above: Result Comment: Canc elled via OM: Order cancelled - Patient discharged Performed By: #### L 500.2500, L100.0100 ####[facility] [address] [place], [address] CL Normal 98-107 [facility] Comment on above: Result Comment: Canc elled via OM: Order cancelled - Patient discharged Performed By: #### L 500.2500, L100.0100 ####[facility] [address] [place], [address] CO2 Normal 21.0-32.0 [facility] Comment on above: Result Comment: Canc elled via OM: Order cancelled - Patient discharged Performed By: #### L 500.2500, L100.0100 ####[facility] [address] [place], [address] CREAT,SERUM Normal 0.55-1.02 [facility] Comment on above: Result Comment: Canc elled via OM: Order cancelled - Patient discharged Performed By: #### L 500.2500, L100.0100 ####[facility] [address] [place], [address] EST GFR Normal >60 [facility] Comment on above: Result Comment: Canc elled via OM: Order cancelled - Patient discharged Performed By: #### L 500.2500, L100.0100 ####[facility] [address] [place], [address] EST GFR - AA Normal >60 [facility] Comment on above: Result Comment: Canc elled via OM: Order cancelled - Patient discharged Performed By: #### L 500.2500, L100.0100 ####[facility] [address] [place], [address] GAP Normal 5-15 [facility] Comment on above: Result Comment: Canc elled via OM: Order cancelled - Patient discharged Performed By: #### L 500.2500, L100.0100 ####[facility] [address] [place], [address] GLU Normal 74-106 [facility] Comment on above: Result Comment: Canc elled via OM: Order cancelled - Patient discharged Performed By: #### L 500.2500, L100.0100 ####[facility] [address] [place], [address] Potassium Normal 3.5-5.1 [facility] Comment on above: Result Comment: Canc elled via OM: Order cancelled - Patient discharged Performed By: #### L 500.2500, L100.0100 ####[facility] [address] [place], [address] Basic Metabolic Profile (BMP) Normal 136-145 [facility] Comment on above: Result Comment: Canc elled via OM: Order cancelled - Patient discharged Performed By: #### L 500.2500, L100.0100 ####[facility] [address] [place], [address] CBC W/Diff, Automatedon 07-03 Absolute Neut Normal 2.0-7.7 [facility] Comment on above: Result Comment: Canc elled via OM: Order cancelled - Patient discharged Performed By: #### L 500.2500, L100.0100 ####[facility] [address] [place], [address] HCT Normal 37-47 [facility] Comment on above: Result Comment: Canc elled via OM: Order cancelled - Patient discharged Performed By: #### L 500.2500, L100.0100 ####[facility] [address] [place], [address] HGB Normal 12.0-15.0 [facility] Comment on above: Result Comment: Canc elled via OM: Order cancelled - Patient discharged Performed By: #### L 500.2500, L100.0100 ####[facility] [address] [place], [address] MCH Normal 27.0-32.0 [facility] Comment on above: Result Comment: Canc elled via OM: Order cancelled - Patient discharged Performed By: #### L 500.2500, L100.0100 ####[facility] [address] [place], [address] MCHC Normal 32-36 [facility] Comment on above: Result Comment: Canc elled via OM: Order cancelled - Patient discharged Performed By: #### L 500.2500, L100.0100 ####[facility] [address] [place], [address] MCV Normal 81-99 [facility] Comment on above: Result Comment: Canc elled via OM: Order cancelled - Patient discharged Performed By: #### L 500.2500, L100.0100 ####[facility] [address] [place], [address] NEUT% Normal 47-70 [facility] Comment on above: Result Comment: Canc elled via OM: Order cancelled - Patient discharged Performed By: #### L 500.2500, L100.0100 ####[facility] [address] [place], [address] PLT Normal 150-450 [facility] Comment on above: Result Comment: Canc elled via OM: Order cancelled - Patient discharged Performed By: #### L 500.2500, L100.0100 ####[facility] [address] [place], [address] RBC Normal 4.2-5.4 [facility] Comment on above: Result Comment: Canc elled via OM: Order cancelled - Patient discharged Performed By: #### L 500.2500, L100.0100 ####[facility] [address] [place], [address] RDW CV Normal 11.6-14.6 [facility] Comment on above: Result Comment: Canc elled via OM: Order cancelled - Patient discharged Performed By: #### L 500.2500, L100.0100 ####[facility] [address] [place], [address] RDW SD Normal 35.1-43.9 [facility] Comment on above: Result Comment: Canc elled via OM: Order cancelled - Patient discharged Performed By: #### L 500.2500, L100.0100 ####[facility] [address], [address] WBC Normal 4.4-11.0 [facility] Comment on above: Result Comment: Canc elled via OM: Order cancelled - Patient discharged Performed By: #### L 500.2500, L100.0100 ####[facility] [address] [place], [address] Chest PA and Lateralon 07-15 Chest PA and Lateral Normal [facility] Basic Metabolic Profile (BMP )on 07-11-2024 BUN Normal 7-18 [facility] Comment on above: Result Comment: Canc elled via OM: Order cancelled - Patient discharged Performed By: #### L 500.2500, L100.0100 ####[facility] [address] [place], [address] BUN/CRE Normal 10-20 [facility] Comment on above: Result Comment: Canc elled via OM: Order cancelled - Patient discharged Performed By: #### L 500.2500, L100.0100 ####[facility] [address] [place], [address] CA,Total Normal 8.5-10.1 [facility] Comment on above: Result Comment: Canc elled via OM: Order cancelled - Patient discharged Performed By: #### L 500.2500, L100.0100 ####[facility] [address] [place], [address] CL Normal 98-107 [facility] Comment on above: Result Comment: Canc elled via OM: Order cancelled - Patient discharged Performed By: #### L 500.2500, L100.0100 ####[facility] [address], [address] CO2 Normal 21.0-32.0 [facility] Comment on above: Result Comment: Canc elled via OM: Order cancelled - Patient discharged Performed By: #### L 500.2500, L100.0100 ####[facility] [address] [place], [address] CREAT,SERUM Normal 0.55-1.02 [facility] Comment on above: Result Comment: Canc elled via OM: Order cancelled - Patient discharged Performed By: #### L 500.2500, L100.0100 ####[facility] [address] [place], [address] EST GFR Normal >60 [facility] Comment on above: Result Comment: Canc elled via OM: Order cancelled - Patient discharged Performed By: #### L 500.2500, L100.0100 ####[facility] [address], [address] EST GFR - AA Normal >60 [facility] Comment on above: Result Comment: Canc elled via OM: Order cancelled - Patient discharged Performed By: #### L 500.2500, L100.0100 ####[facility] [address] [place], [address] GAP Normal 5-15 [facility] Comment on above: Result Comment: Canc elled via OM: Order cancelled - Patient discharged Performed By: #### L 500.2500, L100.0100 ####[facility] [address] [place], [address] GLU Normal 74-106 [facility] Comment on above: Result Comment: Canc elled via OM: Order cancelled - Patient discharged Performed By: #### L 500.2500, L100.0100 ####[facility] [address] [place], [address] Potassium Normal 3.5-5.1 [facility] Comment on above: Result Comment: Canc elled via OM: Order cancelled - Patient discharged Performed By: #### L 500.2500, L100.0100 ####[facility] [address] [place], [address] Basic Metabolic Profile (BMP) Normal 136-145 [facility] Comment on above: Result Comment: Canc elled via OM: Order cancelled - Patient discharged Performed By: #### L 500.2500, L100.0100 ####[facility] [address] [place], [address] CBC W/Diff, Automatedon 0 Absolute Neut Normal 2.0-7.7 [facility] Comment on above: Result Comment: Canc elled via OM: Order cancelled - Patient discharged Performed By: #### L 500.2500, L100.0100 ####[facility] [address] [place], [address] HCT Normal 37-47 [facility] Comment on above: Result Comment: Canc elled via OM: Order cancelled - Patient discharged Performed By: #### L 500.2500, L100.0100 ####[facility] [address] [place], [address] HGB Normal 12.0-15.0 [facility] Comment on above: Result Comment: Canc elled via OM: Order cancelled - Patient discharged Performed By: #### L 500.2500, L100.0100 ####[facility] [address] [place], [address] MCH Normal 27.0-32.0 [facility] Comment on above: Result Comment: Canc elled via OM: Order cancelled - Patient discharged Performed By: #### L 500.2500, L100.0100 ####[facility] [address] [place], [address] MCHC Normal 32-36 [facility] Comment on above: Result Comment: Canc elled via OM: Order cancelled - Patient discharged Performed By: #### L 500.2500, L100.0100 ####[facility] [address] [place], [address] MCV Normal 81-99 [facility] Comment on above: Result Comment: Canc elled via OM: Order cancelled - Patient discharged Performed By: #### L 500.2500, L100.0100 ####[facility] [address] [place], [address] NEUT% Normal 47-70 [facility] Comment on above: Result Comment: Canc elled via OM: Order cancelled - Patient discharged Performed By: #### L 500.2500, L100.0100 ####[facility] [address] [place], [address] PLT Normal 150-450 [facility] Comment on above: Result Comment: Canc elled via OM: Order cancelled - Patient discharged Performed By: #### L 500.2500, L100.0100 ####[facility] [address] [place], [address] RBC Normal 4.2-5.4 [facility] Comment on above: Result Comment: Canc elled via OM: Order cancelled - Patient discharged Performed By: #### L 500.2500, L100.0100 ####[facility] [address] [place], [address] RDW CV Normal 11.6-14.6 [facility] Comment on above: Result Comment: Canc elled via OM: Order cancelled - Patient discharged Performed By: #### L 500.2500, L100.0100 ####[facility] [address] [place], [address] RDW SD Normal 35.1-43.9 [facility] Comment on above: Result Comment: Canc elled via OM: Order cancelled - Patient discharged Performed By: #### L 500.2500, L100.0100 ####[facility] [address] [place], [address] WBC Normal 4.4-11.0 [facility] Comment on above: Result Comment: Canc elled via OM: Order cancelled - Patient discharged Performed By: #### L 500.2500, L100.0100 ####[facility] [address] [place], [address] Erythropoietinon 07-08-2024 ERYTHROPOIETIN 8.5 mIU/mL Normal 2.6-18.5 [facility] Comment on above: Result Comment: [employer] DxI 800 Immunoassay SystemValues obtained with different assay methods or kits cannotbe used interchangeably. Results cannot be interpreted asabsolute evidence of the presence or absence of malignantdisease.Performed at: [facility] [id number] Director: David King PhD, Phone: [phone] Performed By: #### L 503.5432, L3100.1350, L100.0100, L503.0105 ####[facility] [address] [place], [address] Post Void Residual Bladderon 07-08-2024 Post Void Residual Bladder Normal [facility] CNOVon 07-05-2024 CNOV Office Visit (ORTHMN ) SANDIE HO ([id number]) 1940 F Date Time Provider Department 07/05/24 11:20 AM JEEVAN FUNEZ ORTHMN During your visit today, we recorded the following information about you: Jeevan Funez PA-C 07/05/2024 12:51 PM Signed CHIEF COMPLAINT: Sandie Ho is a 84 year old female who presents today for new evaluation of left anterior knee pain. 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 On exam today she can get up sitting position to standing with some subtle discomfortthere is a subtle defect. Medial aspect. Of the quad tendon as it inserts on the patella, x-rays did show that the patella is maintained its position however because of the deficit an BYRON ultrasound was ordered. Patient is going down to [place] in a week or 2 and will get the ultrasound done and then follow-up one of the [facility] in [place]. In the meanwhile she was placed on I ROM brace locked out at 0 degrees extension left knee. Ambulation weightbearing as tolerated with a walker or cane. HISTORY OF PRESENT ILLNESS: She states that this pain has been present for the past 19 days. She notes the pain to be aching and a tightness. Patient complains that the leg wants to give out. . Patient notes swelling in the area around the joint. . She notes aggravating factors of first few steps out of bed in the morning, management or change of inclines, prolonged sitting, prolonged standing, rapid change of direction, and regular daily ambulation. She notes alleviating factors of avoidance of overactivity and rest. She notes hesitency to use the joint and concern to return to normal daily activities. She is currently retired. Treatments so far have included knee immobilizer. REVIEW OF SYMPTOMS: Constitutional: patient denies any recent fever or significant change in weight Gastrointestinal: patient notes history of intolerance to NSAIDs Musculoskeletal: as noted in the HPI Neurologic: as noted in the HPI SOCIAL HISTORY: Tobacco Use: Types: Cigarettes ALLERGIES: ALLERGIES Allergen Reactions Cymbalta [Duloxetin* Other: See Comments Pt reporting she is not allergic, just a negative side effect. 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 Vitals: There were no vitals taken for this visit. Skin: Skin color, texture, turgor normal, no suspicious rashes or lesions noted Psychiatric: mood and affect are appropriate, patient is oriented to time, place and person General Appearance: Well appearing, alert, in no acute distress, well-hydrated, and well nourished Cardiovascular: pedal pulses and radial pulses normal, no signs of upper or lower extremity edema Respiratory: no respiratory distress, no audible wheezing, no labored breathing, symmetric thoracic excursion Neurologic: bilateral deep tendon reflexes are normal and symmetric with no pathologic reflexes, sensation is grossly intact Lymphatic: no lymph node enlargement noted in the examined area Knee Examination Left Knee Skin Positive: swelling. Effusion 2+ effusion Alignment normal Range of motion -10 - 90 degrees Quadriceps examination quad weakness (more content not included)... Normal [facility] No Panel Informationon 07-05 Radiology Study observation (narrative) [facility] XR HIP 3V PELV+ AP/LAT LTon 07-05-2024 XR HIP 3V PELV+ AP/LAT LT * * *Final Rep ort* * * DATE OF EXAM: Jul 05 2024 11:38AM AOX 5351 - XR HIP 3V PELV+ AP/LAT LT / PROCEDURE REASON: multiple diagnoses * * * * Physician Interpretation * * * * EXAMINATION / TECHNIQUE: XR HIP 3V PELV+ AP/LAT LT HISTORY: patient stated that she fall 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 COMPARISON: 05/02/2022. FINDINGS: Status post left total hip arthroplasty with orthopedic hardware in standard position and alignment. There is no periprosthetic lucency or fracture. Intact right hip arthroplasty. Chronic fracture deformities of the left pubic rami. Lower lumbar degenerative changes. IMPRESSION: Status post left total hip arthroplasty without evidence of complication. Wood Veneer Taper: PSC Transcribe Date/Time: Jul 05 2024 11:44A Dictated by : JONH FLYNN MD This examination was interpreted and the report reviewed and electronically signed by: JONH FLYNN MD on Jul 05 2024 11:44AM EST [id number] Normal [facility] XR KNEE 3V AP/LAT/MERCHANT L Ton 07-05-2024 XR KNEE 3V AP/LAT/MERCHANT LT * * *Final Report* * * DATE OF EXAM: Jul 05 2024 11:38AM AOX 5208 - XR KNEE 3V AP/LAT/MERCHANT LT / PROCEDURE REASON: multiple diagnoses * * * * Physician Interpretation * * * * EXAMINATION / TECHNIQUE: XR KNEE 3V AP/LAT/MERCHANT LT HISTORY: patient stated that she fall 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 COMPARISON: 01/10/2020. FINDINGS: Status post total knee arthroplasty with orthopedic hardware in standard position and alignment. There is no periprosthetic lucency or fracture. IMPRESSION: Status post left total knee arthroplasty without evidence of complication. Wood [facility]er [facility] Transcribe Date/Time: Jul 05 2024 11:44A Dictated by : JONH FLYNN MD This examination was interpreted and the report reviewed and electronically signed by: JONH FLYNN MD on Jul 05 2024 11:44AM EST [id number] Normal [facility] XR Knee AP and Lateral and M erchantson 07-05-2024 IMPRESSION: Status post left total knee arthroplasty without evidence of complication. Wood Veneer Taper: PSCB Transcribe Date/Time: Jul 05 2024 11:44A Dictated by : JONH FLYNN MD This examination was interpreted and the report reviewed and electronically signed by: JONH FLYNN MD on Jul 05 2024 11:44AM [facility] [[email or web address]] DIVISION OF RADIOLOGY * * *Final Report* * * DATE OF EXAM: Jul 05 2024 11:38AM AOX 5208 - XR KNEE 3V AP/LAT/MERCHANT LT / PROCEDURE REASON: multiple diagnoses * * * * Physician Interpretation * * * * EXAMINATION / TECHNIQUE: XR KNEE 3V AP/LAT/MERCHANT LT HISTORY: patient stated that she fall 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 COMPARISON: 01/10/2020. FINDINGS: Status post total knee arthroplasty with orthopedic hardware in standard position and alignment. There is no periprosthetic lucency or fracture. DIVISION OF RADIOLOGY Provider, [facility] - 07/05/2024 * * *Final Report* * * DATE OF EXAM: Jul 05 2024 11:38AM AOX 5208 - XR KNEE 3V AP/LAT/MERCHANT LT / PROCEDURE REASON: multiple diagnoses * * * * Physician Interpretation * * * * EXAMINATION / TECHNIQUE: XR KNEE 3V AP/LAT/MERCHANT LT HISTORY: patient stated that she fall 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 COMPARISON: 01/10/2020. FINDINGS: Status post total knee arthroplasty with orthopedic hardware in standard position and alignment. There is no periprosthetic lucency or fracture. IMPRESSION IMPRESSION: Status post left total knee arthroplasty without evidence of complication. Wood Veneer Taper: PSCB Transcribe Date/Time: Jul 05 2024 11:44A Dictated by : JONH FLYNN MD This examination was interpreted and the report reviewed and electronically signed by: JONH FLYNN MD on Jul 05 2024 11:44AM EST [facility] XR Knee AP and Lateral and M erchantsOrdered By: [facility] Provider on 07-05-2024 [facility] XR Pelvis and Hip - left AP and Lateral frogon 07-05-2024 IMPRESSION: Status post left total hip arthroplasty without evidence of complication. 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 FINDINGS: Status post left total hip arthroplasty with orthopedic hardware in standard position and alignment. There is no periprosthetic lucency or fracture. Intact right hip arthroplasty. Chronic fracture deformities of the left pubic rami. Lower lumbar degenerative changes. 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 FINDINGS: Status post left total hip arthroplasty with orthopedic hardware in standard position and alignment. There is no periprosthetic lucency or fracture. Intact right hip arthroplasty. Chronic fracture deformities of the left pubic rami. Lower lumbar degenerative changes. IMPRESSION IMPRESSION: Status post left total hip arthroplasty without evidence of complication. Wood Veneer Taper: PSCB Transcribe Date/Time: Jul 05 2024 11:44A Dictated by : JONH FLYNN MD This examination was interpreted and the report reviewed and electronically signed by: JONH FLYNN MD on Jul 05 2024 11:44AM EST [facility] Absolute neutrophil countOrd ered By: Franc Quezada on 07-04-2024 Neutrophils (Bld) [#/Vol] 6.6 10*3/uL 2.0-7.7 [facility] Basic Metabolic Profile (BMP )on 07-04-2024 BUN Normal 7-18 [facility] Comment on above: Result Comment: Canc elled via OM: Order cancelled - Patient discharged Performed By: #### L 500.2500, L100.0100 ####[facility] [address] [place], [address] BUN/CRE Normal 10-20 [facility] Comment on above: Result Comment: Canc elled via OM: Order cancelled - Patient discharged Performed By: #### L 500.2500, L100.0100 ####[facility] [address] [place], [address] CA,Total Normal 8.5-10.1 [facility] Comment on above: Result Comment: Canc elled via OM: Order cancelled - Patient discharged Performed By: #### L 500.2500, L100.0100 ####[facility] [address] [place], [address] CL Normal 98-107 [facility] Comment on above: Result Comment: Canc elled via OM: Order cancelled - Patient discharged Performed By: #### L 500.2500, L100.0100 ####[facility] [address] [place], [address] CO2 Normal 21.0-32.0 [facility] Comment on above: Result Comment: Canc elled via OM: Order cancelled - Patient discharged Performed By: #### L 500.2500, L100.0100 ####[facility] [address] [place], [address] CREAT,SERUM Normal 0.55-1.02 [facility] Comment on above: Result Comment: Canc elled via OM: Order cancelled - Patient discharged Performed By: #### L 500.2500, L100.0100 ####[facility] [address] [place], [address] EST GFR Normal >60 [facility] Comment on above: Result Comment: Canc elled via OM: Order cancelled - Patient discharged Performed By: #### L 500.2500, L100.0100 ####[facility] [address] [place], [address] EST GFR - AA Normal >60 [facility] Comment on above: Result Comment: Canc elled via OM: Order cancelled - Patient discharged Performed By: #### L 500.2500, L100.0100 ####[facility] [address] [place], [address] GAP Normal 5-15 [facility] Comment on above: Result Comment: Canc elled via OM: Order cancelled - Patient discharged Performed By: #### L 500.2500, L100.0100 ####[facility] [address] [place], [address] GLU Normal 74-106 [facility] Comment on above: Result Comment: Canc elled via OM: Order cancelled - Patient discharged Performed By: #### L 500.2500, L100.0100 ####[facility] [address] [place], [address] Potassium Normal 3.5-5.1 [facility] Comment on above: Result Comment: Canc elled via OM: Order cancelled - Patient discharged Performed By: #### L 500.2500, L100.0100 ####[facility] [address], [address] Basic Metabolic Profile (BMP) Normal 136-145 [facility] Comment on above: Result Comment: Canc elled via OM: Order cancelled - Patient discharged Performed By: #### L 500.2500, L100.0100 ####[facility] [address], [address] Basophil percentageOrdered B y: Franc Quezada on 07-04-2024 Basophils/100 WBC (Bld) 0.4 % 0-[address] [facility] CBC W/Diff, Automatedon Absolute Lymph 1.38 X10 3/uL Normal 0.83-4.51 [facility] Comment on above: Performed By: #### L 503.6030, L3100.1350, L100.0100, L503.0105 ####[facility] [address] [place], [address] Absolute Neut 6.6 X10 3/uL Normal 2.0-7.7 [facility] Comment on above: Performed By: #### L 503.6030, L3100.1350, L100.0100, L503.0105 ####[facility] [address] [place], [address] Basophils/100 WBC (Bld) 0.4 % Normal 0-[address] [facility] Comment on above: Performed By: #### L 503.6030, L3100.1350, L100.0100, L503.0105 ####[facility] [address] [place], [address] Eosinophils/100 WBC (Bld) 6.5 % High 0-5 [facility] Comment on above: Performed By: #### L 503.6030, L3100.1350, L100.0100, L503.0105 ####[facility] [address] [place], [address] Erythrocyte distribution width (RBC) [Ratio] 13.5 % Normal 11.6-14.6 [facility] Comment on above: Performed By: #### L 503.6030, L3100.1350, L100.0100, L503.0105 ####[facility] [address] [place], [address] Hematocrit (Bld) [Volume fraction] 39.6 % Normal 37-47 [facility] Comment on above: Performed By: #### L 503.6030, L3100.1350, L100.0100, L503.0105 ####[facility] [address] [place], [address] Hemoglobin (Bld) [Mass/Vol] 12.5 g/dL Normal 12.0-15.0 [facility] Comment on above: Performed By: #### L 503.6030, L3100.1350, L100.0100, L503.0105 ####[facility] [address] [place], [address] IG% 0.400 Normal 0.0-0.9 [facility] Comment on above: Result Comment: IG% - Immature Granulocytes (promyelocytes, myelocytes andmetamyelocytes) > 1% indicates that a LEFT SHIFT is Present. Performed By: #### L 503.6030, L3100.1350, L100.0100, L503.0105 ####[facility] [address] [place], [address] Lymphocytes/100 WBC (Bld) 14.5 % Low 19-41 [facility] Comment on above: Performed By: #### L 503.6030, L3100.1350, L100.0100, L503.0105 ####[facility] [address] [place], [address] MCH (RBC) [Entitic mass] 29.9 pg Normal 27.0-32.0 [facility] Comment on above: Performed By: #### L 503.6030, L3100.1350, L100.0100, L503.0105 ####[facility] [address] [place], [address] MCHC (RBC) [Mass/Vol] 31.6 g/dL Low 32-36 [facility] Comment on above: Performed By: #### L 503.6030, L3100.1350, L100.0100, L503.0105 ####[facility] [address] [place], [address] MCV (RBC) [Entitic vol] 94.7 fL Normal 81-[address] [facility] Comment on above: Performed By: #### L 503.6030, L3100.1350, L100.0100, L503.0105 ####[facility] [address] [place], [address] Monocytes/100 WBC (Bld) 8.4 % Normal 0-[address] [facility] Comment on above: Performed By: #### L 503.6030, L3100.1350, L100.0100, L503.0105 ####[facility] [address] [place], [address] Neutrophils/100 WBC (Bld) 69.8 % Normal 47-70 [facility] Comment on above: Performed By: #### L 503.6030, L3100.1350, L100.0100, L503.0105 ####[facility] [address] [place], [address] Nucleated RBC (Bld) [#/Vol] 0 10*3/uL Normal 0-5 [facility] Comment on above: Performed By: #### L 503.6030, L3100.1350, L100.0100, L503.0105 ####[facility] [address] [place], [address] Platelet mean volume (Bld) [Entitic vol] 8.9 fL Normal 6.2-12.0 [facility] Comment on above: Performed By: #### L 503.6030, L3100.1350, L100.0100, L503.0105 ####[facility] [address] [place], [address] Platelets (Bld) [#/Vol] 356 10*3/uL Normal 150-450 [facility] Comment on above: Performed By: #### L 503.6030, L3100.1350, L100.0100, L503.0105 ####[facility] [address] [place], [address] RBC (Bld) [#/Vol] 4.18 10*6/uL Low 4.2-5.4 [facility] Comment on above: Performed By: #### L 503.6030, L3100.1350, L100.0100, L503.0105 ####[facility] [address] [place], [address] RDW SD 46.9 fl High 35.1-43.9 [facility] Comment on above: Performed By: #### L 503.6030, L3100.1350, L100.0100, L503.0105 ####[facility] [address] [place], [address] WBC (Bld) [#/Vol] 9.5 10*3/uL Normal 4.4-11.0 [facility] Comment on above: Performed By: #### L 503.6030, L3100.1350, L100.0100, L503.0105 ####[facility] [address] [place], [address] Absolute Neut Normal 2.0-7.7 [facility] Comment on above: Result Comment: Canc elled via OM: Order cancelled - Patient discharged Performed By: #### L 500.2500, L100.0100 ####[facility] [address] [place], [address] HCT Normal 37-47 [facility] Comment on above: Result Comment: Canc elled via OM: Order cancelled - Patient discharged Performed By: #### L 500.2500, L100.0100 ####[facility] [address] [place], [address] HGB Normal 12.0-15.0 [facility] Comment on above: Result Comment: Canc elled via OM: Order cancelled - Patient discharged Performed By: #### L 500.2500, L100.0100 ####[facility] [address] [place], [address] MCH Normal 27.0-32.0 [facility] Comment on above: Result Comment: Canc elled via OM: Order cancelled - Patient discharged Performed By: #### L 500.2500, L100.0100 ####[facility] [address] [place], [address] MCHC Normal 32-36 [facility] Comment on above: Result Comment: Canc elled via OM: Order cancelled - Patient discharged Performed By: #### L 500.2500, L100.0100 ####[facility] [address] [place], [address] MCV Normal 81-99 [facility] Comment on above: Result Comment: Canc elled via OM: Order cancelled - Patient discharged Performed By: #### L 500.2500, L100.0100 ####[facility] [address] [place], [address] NEUT% Normal 47-70 [facility] Comment on above: Result Comment: Canc elled via OM: Order cancelled - Patient discharged Performed By: #### L 500.2500, L100.0100 ####[facility] [address] [place], [address] PLT Normal 150-450 [facility] Comment on above: Result Comment: Canc elled via OM: Order cancelled - Patient discharged Performed By: #### L 500.2500, L100.0100 ####[facility] [address] [place], [address] RBC Normal 4.2-5.4 [facility] Comment on above: Result Comment: Canc elled via OM: Order cancelled - Patient discharged Performed By: #### L 500.2500, L100.0100 ####[facility] [address] [place], [address] RDW CV Normal 11.6-14.6 [facility] Comment on above: Result Comment: Canc elled via OM: Order cancelled - Patient discharged Performed By: #### L 500.2500, L100.0100 ####[facility] [address] [place], [address] RDW SD Normal 35.1-43.9 [facility] Comment on above: Result Comment: Canc elled via OM: Order cancelled - Patient discharged Performed By: #### L 500.2500, L100.0100 ####[facility] [address] [place], [address] WBC Normal 4.4-11.0 [facility] Comment on above: Result Comment: Canc elled via OM: Order cancelled - Patient discharged Performed By: #### L 500.2500, L100.0100 ####[facility] [address] [place], [address] Eosinophil percentageOrdered By: Franc Quezada on 07-04-2024 Eosinophils/100 WBC (Bld) 6.5 % High 0-5 [facility] Erythrocyte distribution wid th ratioOrdered By: Franc Quezada on 07-04-2024 Erythrocyte distribution width (RBC) [Ratio] 13.5 % 11.6-14.6 [facility] Erythrocyte distribution wid th standard deviationOrdered By: Franc Quezada on 07-04-2024 Erythrocyte distribution width (RBC) [Entitic vol] 46.9 fL High 35.1-43.9 [facility] Erythropoietin (EPO) QnOrder ed By: Franc Quezada on 07-04-2024 Erythropoietin 8.5 mIU/mL 2.6-18.5 [facility] Comment on above: [employer] 800 Immunoassay SystemValues obtained with different assay methods or kits cannotbe used interchangeably. Results cannot be interpreted asabsolute evidence of the presence or absence of malignantdisease.Performed at: - [facility] [id number] Director: David King PhD, Phone: [phone] Hematocrit Auto (Bld) [Volum e fraction]Ordered By: Franc Quezada on 07-04-2024 Hematocrit (Bld) [Volume fraction] 39.6 % 37-47 [facility] Hemoglobin measurementOrdere d By: Franc Quezada on 07-04-2024 Hemoglobin (Bld) [Mass/Vol] 12.5 g/dL 12.0-15.0 [facility] Immature granulocytes/100 WB C Auto (Bld)Ordered By: Franc Quezada on 07-04-2024 Immature granulocytes/100 WBC (Bld) 0.400 % 0.0-0.9 [facility] Comment on above: IG% - Immature Granu locytes (promyelocytes, myelocytes and metamyelocytes) > 1% indicates that a LEFT SHIFT is Present. Iron (Unsp spec) [Mass/Mass] Ordered By: Franc Quezada on 07-04-2024 Iron [Mass/Vol] 126 ug/dL 50-170 [facility] Iron saturation [Mass fracti on]Ordered By: Franc Quezada on 07-04-2024 Iron Saturation 35.9 % 15.0-55.0 [facility] Iron+Iron Binding Capacityon 07-04-2024 Iron [Mass/Vol] 126 ug/dL Normal 50-170 [facility] Comment on above: Performed By: #### L 503.6030, L3100.1350, L100.0100, L503.0105 ####[facility] [address] [place], [address] IRON SATURATION 35.9 Normal 15.0-55.0 [facility] Comment on above: Performed By: #### L 503.6030, L3100.1350, L100.0100, L503.0105 ####[facility] [address] [place], [address] TIBC 351 ug/dL Normal 250-450 [facility] Comment on above: Performed By: #### L 503.6030, L3100.1350, L100.0100, L503.0105 ####[facility] [address] [place], [address] Lymphocytes Auto (Unsp spec) [#/Vol]Ordered By: Franc Quezada on 07-04-2024 Lymphocytes (Bld) [#/Vol] 1.38 10*3/uL 0.83-4.5 1 [facility] Lymphocytes/100 WBC Auto (Un sp spec)Ordered By: Franc Quezada on 07-04-2024 Lymphocytes/100 WBC (Bld) 14.5 % Low 19-41 [facility] MCV (mean corpuscular volume ) determinationOrdered By: Franc Quezada on 07-04-2024 MCV (RBC) [Entitic vol] 94.7 fL 81-[address] [facility] Mean corpuscular hemoglobin (MCH) determinationOrdered By: Franc Quezada on 07-04-2024 MCH (RBC) [Entitic mass] 29.9 pg 27.0-32.0 [facility] Mean corpuscular hemoglobin concentration (MCHC) determinationOrdered By: Franc Quezada on 07-04-2024 MCHC (RBC) [Mass/Vol] 31.6 g/dL Low 32-36 [facility] Mean platelet volume determi nationOrdered By: Franc Quezada on 07-04-2024 Platelet mean volume (Bld) [Entitic vol] 8.9 fL 6.2-12.0 [facility] Monocyte percentageOrdered B y: Franc Quezada on 07-04-2024 Monocytes/100 WBC (Bld) 8.4 % 0-[address] [facility] Neutrophil percentageOrdered By: Franc Quezada on 07-04-2024 Neutrophils/100 WBC (Bld) 69.8 % 47-70 [facility] Nucleated red blood cell per centageOrdered By: Franc Quezada on 07-04-2024 Nucleated RBC/100 WBC (Bld) [Ratio] 0 % 0-5 [facility] Platelet countOrdered By: Conner Quezada on 07-04-2024 Platelets (Bld) [#/Vol] 356 10*3/uL 150-450 [facility] RBC Auto (Bld) [#/Vol]Ordere d By: Franc Judi on 07-04-2024 RBC (Bld) [#/Vol] 4.18 10*6/uL Low 4.2-5.4 [facility] TIBCOrdered By: Paulerwin Judi on 07-04-2024 Total Iron Binding Capacity 351 ug/dL 250-450 [facility] Vitamin B12on 07-04-2024 Cobalamin (Vitamin B12) [Mass/Vol] 554 pg/mL Normal 211-911 [facility] Comment on above: Performed By: #### L 503.6030, L3100.1350, L100.0100, L503.0105 ####[facility] [address] [place], [place], [id number] Vitamin B12 measurementOrder ed By: Franc Quezada on 07-04-2024 Cobalamin (Vitamin B12) [Mass/Vol] 554 pg/mL 211-911 [facility] White blood cell (WBC) count Ordered By: Franc Quezada on 07-04-2024 WBC (Bld) [#/Vol] 9.5 10*3/uL 4.4-11.0 [facility] Urine Cultureon 07-03-2024 URC Normal [facility] Comment on above: Performed By: #### M 100.2200 ####[facility] [address] [place], [place], [id number] Bilirubin Test strip Ql (U)O rdered By: Mecca Abad on 07-01-2024 Bilirubin Ql (U) Negative Negative [facility] Discharge Instructionon 06-04 Discharge Instruction Normal [facility] Epithelial cells.squamous LM Ql (Urine sed)Ordered By: Mecca Abad on 07-01-2024 Epithelial cells.squamous LM.HPF (Urine sed) [#/Area] 0 /[HPF] 5-10 [facility] Glucose Ql (U)Ordered By: Khalida Abad on 07-01-2024 Urine Glucose (UA) Normal mg/dl Normal [facility] Ketones Test strip Ql (U)Ord ered By: Mecca Abad on 07-01-2024 Ketones Ql (U) Negative Negative [facility] Microscopic analysis of urin e for red blood cells (RBC)Ordered By: Mecca Webberkatty on 07-01-2024 Urine RBC 0 SEEN /hpf 0-5 [facility] Mucus LM Ql (Urine sed)Order ed By: Mecca Webberkatty on 07-01-2024 Mucus Ql (Urine sed) 0 SEEN /hpf [facility] Nitrite Test strip Ql (U)Ord ered By: Mecca Webberkatty on 07-01-2024 Nitrite Ql (U) Negative Negative [facility] Protein Test strip Ql (U)Ord ered By: Mecca Webberkatty on 07-01-2024 Protein Ql (U) 30 mg/dl High Negative [facility] Transitional cells LM Ql (Ur ine sed)Ordered By: Mecca Webberkatty on 07-01-2024 Urine Transitional Epithelial Cells 0-5 SEEN /hpf 0-5 [facility] Urinalysis, Completeon 07-01 BACTERIA 4+ /hpf Normal None Seen [facility] Comment on above: Order Comment: LISA TER SPECIMEN Performed By: #### L 400.0001 ####[facility] [address] [place] [phone] EPI,TRANSITION 0-5 SEEN Normal 0-5 [facility] Comment on above: Order Comment: LISA TER SPECIMEN Performed By: #### L 400.0001 ####[facility] [address] [place] [phone] WBC >100 SEEN Normal 0-5 [facility] Comment on above: Order Comment: LISA TER SPECIMEN Result Comment: Micr oscopic field is filled. Other elements may beobscured. Performed By: #### L 400.0001 ####[facility] [address] [place] [phone] BILIRUBIN URINE Negative Normal Negative [facility] Comment on above: Order Comment: LISA TER SPECIMEN Performed By: #### L 400.0001 ####[facility] [address] [place], [address] Clarity (U) Sl. Cloudy Normal Clear [facility] Comment on above: Order Comment: LISA TER SPECIMEN Performed By: #### L 400.0001 ####[facility] [address] [place], [address] Color (U) Straw Normal Yellow [facility] Comment on above: Order Comment: LISA TER SPECIMEN Performed By: #### L 400.0001 ####[facility] [address] [place], [address] EPI,SQUAMOUS 0 SEEN Normal 5-10 [facility] Comment on above: Order Comment: LISA TER SPECIMEN Performed By: #### L 400.0001 ####[facility] [address] [place], [address] GLUCOSE, UR Normal Normal Normal [facility] Comment on above: Order Comment: LISA TER SPECIMEN Performed By: #### L 400.0001 ####[facility] [address] [place], [address] KETONE UR Negative Normal Negative [facility] Comment on above: Order Comment: LISA TER SPECIMEN Performed By: #### L 400.0001 ####[facility] [address] [place], [address] LEUK ESTERASE 500 /ul Abnormal Negative [facility] Comment on above: Order Comment: LISA TER SPECIMEN Performed By: #### L 400.0001 ####[facility] [address] [place], [address] Mucus Ql (Urine sed) 0 SEEN Normal [facility] Comment on above: Order Comment: LISA TER SPECIMEN Performed By: #### L 400.0001 ####[facility] [address] [place], [address] Nitrite Ql (U) Negative Normal Negative [facility] Comment on above: Order Comment: LISA TER SPECIMEN Performed By: #### L 400.0001 ####[facility] [address] [place], [address] OCCULT BLOOD-UR 50 /ul Abnormal Negative [facility] Comment on above: Order Comment: LIAS TER SPECIMEN Performed By: #### L 400.0001 ####[facility] [address] [place], [address] pH UR 7.0 Normal 5.0 - 8.0 [facility] Comment on above: Order Comment: LISA TER SPECIMEN Performed By: #### L 400.0001 ####[facility] [address] [place], [address] PROT DIPSTX 30 mg/dl Abnormal Negative [facility] Comment on above: Order Comment: LISA TER SPECIMEN Performed By: #### L 400.0001 ####[facility] [address] [place], [address] RBC 0 SEEN Normal 0-5 [facility] Comment on above: Order Comment: LISA TER SPECIMEN Performed By: #### L 400.0001 ####[facility] [address] [place], [address] SP.GR. DIPSTX 1.010 Normal 1.002-1.030 [facility] Comment on above: Order Comment: LISA TER SPECIMEN Performed By: #### L 400.0001 ####[facility] [address] [place], [address] UROBILI Normal Normal Normal [facility] Comment on above: Order Comment: LISA TER SPECIMEN Performed By: #### L 400.0001 ####[facility] [address] [place], [address] Urine blood detectionOrdered By: Mecca Abad on 07-01-2024 Urine Occult Blood 50 /ul High Negative [facility] Urine clarityOrdered By: Alayna Abad on 07-01-2024 Clarity (U) Sl. Cloudy Clear [facility] Urine color determinationOrd ered By: Mecca Webberkatty on 07-01-2024 Color (U) Straw Yellow [facility] Urine cultureOrdered By: Alayna Webberkatty on 07-01-2024 Bacteria identified Cx Nom (U) Presumptive E. coli Abnormal [facility] Urine leukocyte esterase det ection by dipstickOrdered By: Mecca Webberkatty on 07-01-2024 Leukocyte esterase Test strip Ql (U) 500 /ul High Negative [facility] Urine pHOrdered By: Mecca Zhoa sammie on 07-01-2024 pH (U) 7.0 [pH] 5.0 - 8.0 [facility] Urine sediment bacteria coun t by microscopy (number/high power field)Ordered By: Mecca Webberkatty on 07-01-2024 Bacteria LM.HPF (Urine sed) [#/Area] 4 /[HPF] None Seen [facility] Urine specific gravity measu rementOrdered By: Mecca Webberkatty on 07-01-2024 Specific gravity (U) [Rel density] 1.010 1.002-1.030 [facility] Urobilinogen Ql (U)Ordered B y: Mecca Webberkatty on 07-01-2024 Urine Urobilinogen Normal mg/dl Normal [facility] White blood cell countOrdere d By: Mecca Webberkatty on 07-01-2024 Urine WBC >100 SEEN /hpf 0-5 [facility] Comment on above: Microscopic field is filled. Other elements may be obscured. Lower GI hemoglobin IA Ql (S tl)Ordered By: Mecca Webberkatty on 06-29-2024 Stool Occult Blood (KIM) [facility] Stool Occult Blood iFOBon STOB Negative Normal [facility] Comment on above: Performed By: #### M 100.9351 ####[facility] [address] [place], [address] Abdomen Single Viewon 2023 Abdomen Single View Normal [facility] Cardiology Visit Reporton Cardiology Visit Report Normal [facility] Absolute neutrophil countOrd ered By: Ken Scott on 06-27-2024 Neutrophils (Bld) [#/Vol] 1.8 10*3/uL Low 2.0-7.7 [facility] Basic Metabolic Profile (BMP )on 06-27-2024 BUN/CRE 35.7 RATIO High 10-20 [facility] Comment on above: Performed By: #### L 500.2500, L100.0100 ####[facility] [address] [place], [address] CA,Total 9.3 mg/dL Normal 8.5-10.1 [facility] Comment on above: Performed By: #### L 500.2500, L100.0100 ####[facility] [address] [place], [address] Chloride [Moles/Vol] 105 mmol/L Normal 98-107 [facility] Comment on above: Performed By: #### L 500.2500, L100.0100 ####[facility] [address] [place], [address] CO2 [Moles/Vol] 31.0 mmol/L Normal 21.0-32.0 [facility] Comment on above: Performed By: #### L 500.2500, L100.0100 ####[facility] [address] [place], [address] Creatinine [Mass/Vol] 0.84 mg/dL Normal 0.55-1.02 [facility] Comment on above: Result Comment: The validity of the calculated GFR GFRAA in patients over70 years has not been determined. Clinical correlation isessential. Performed By: #### L 500.2500, L100.0100 ####[facility] [address] [place], [address] ECRCL 42.63 ml/min Normal [facility] Comment on above: Performed By: #### L 500.2500, L100.0100 ####[facility] [address] [place], [address] EST GFR - AA 83 mL/min Normal >60 [facility] Comment on above: Result Comment: Afri can Sammarinese GFR Calc Performed By: #### L 500.2500, L100.0100 ####[facility] [address] [place], [address] GAP 2 Low 5-15 [facility] Comment on above: Performed By: #### L 500.2500, L100.0100 ####[facility] [address] [place], [address] GFR/1.73 sq M.predicted among non-blacks MDRD (S/P/Bld) [Vol rate/Area] 69 mL/min/{1.73_m2} Normal >60 [facility] Comment on above: Result Comment: Non- GFR Calc Performed By: #### L 500.2500, L100.0100 ####[facility] [address] [place], [address] Glucose [Mass/Vol] 98 mg/dL Normal 74-106 [facility] Comment on above: Performed By: #### L 500.2500, L100.0100 ####[facility] [address] [place], [address] Potassium [Moles/Vol] 4.0 mmol/L Normal 3.5-5.1 [facility] Comment on above: Performed By: #### L 500.2500, L100.0100 ####[facility] [address] [place], [address] Sodium [Moles/Vol] 138 mmol/L Normal 136-145 [facility] Comment on above: Performed By: #### L 500.2500, L100.0100 ####[facility] [address] [place], [address] Urea nitrogen [Mass/Vol] 30 mg/dL High 7-18 [facility] Comment on above: Performed By: #### L 500.2500, L100.0100 ####[facility] [address] [place], [address] Basophil percentageOrdered B y: Ken Scott on 06-27-2024 Basophils/100 WBC (Bld) 0.7 % 0-[address] [facility] Blood urea nitrogen (BUN)/cr eatinine ratioOrdered By: Ken Scott on 06-27-2024 Urea nitrogen/Creatinine [Mass ratio] 35.7 mg/mg High 10-20 [facility] CBC W/Diff, Automatedon 06-03 Absolute Lymph 1.63 X10 3/uL Normal 0.83-4.51 [facility] Comment on above: Performed By: #### L 500.2500, L100.0100 ####[facility] [address] [place], [address] Absolute Neut 1.8 X10 3/uL Low 2.0-7.7 [facility] Comment on above: Performed By: #### L 500.2500, L100.0100 ####[facility] [address] [place], [address] Basophils/100 WBC (Bld) 0.7 % Normal 0-[address] [facility] Comment on above: Performed By: #### L 500.2500, L100.0100 ####[facility] [address] [place], [address] Eosinophils/100 WBC (Bld) 8.6 % High 0-5 [facility] Comment on above: Performed By: #### L 500.2500, L100.0100 ####[facility] [address] [place], [address] Erythrocyte distribution width (RBC) [Ratio] 13.3 % Normal 11.6-14.6 [facility] Comment on above: Performed By: #### L 500.2500, L100.0100 ####[facility] [address] [place], [address] Hematocrit (Bld) [Volume fraction] 31.2 % Low 37-47 [facility] Comment on above: Performed By: #### L 500.2500, L100.0100 ####[facility] [address] [place], [address] Hemoglobin (Bld) [Mass/Vol] 9.9 g/dL Low 12.0-15.0 [facility] Comment on above: Performed By: #### L 500.2500, L100.0100 ####[facility] [address] [place], [address] IG% 0.400 Normal 0.0-0.9 [facility] Comment on above: Result Comment: IG% - Immature Granulocytes (promyelocytes, myelocytes andmetamyelocytes) > 1% indicates that a LEFT SHIFT is Present. Performed By: #### L 500.2500, L100.0100 ####[facility] [address] [place], [address] Lymphocytes/100 WBC (Bld) 36.1 % Normal 19-41 [facility] Comment on above: Performed By: #### L 500.2500, L100.0100 ####[facility] [address] [place], [address] MCH (RBC) [Entitic mass] 30.5 pg Normal 27.0-32.0 [facility] Comment on above: Performed By: #### L 500.2500, L100.0100 ####[facility] [address] [place], [address] MCHC (RBC) [Mass/Vol] 31.7 g/dL Low 32-36 [facility] Comment on above: Performed By: #### L 500.2500, L100.0100 ####[facility] [address] [place], [address] MCV (RBC) [Entitic vol] 96.0 fL Normal 81-[address] [facility] Comment on above: Performed By: #### L 500.2500, L100.0100 ####[facility] [address] [place], [address] Monocytes/100 WBC (Bld) 13.9 % High 0-[address] [facility] Comment on above: Performed By: #### L 500.2500, L100.0100 ####[facility] [address] [place], [address] Neutrophils/100 WBC (Bld) 40.3 % Low 47-70 [facility] Comment on above: Performed By: #### L 500.2500, L100.0100 ####[facility] [address] [place], [address] Nucleated RBC (Bld) [#/Vol] 0 10*3/uL Normal 0-5 [facility] Comment on above: Performed By: #### L 500.2500, L100.0100 ####[facility] [address] [place], [address] Platelet mean volume (Bld) [Entitic vol] 8.6 fL Normal 6.2-12.0 [facility] Comment on above: Performed By: #### L 500.2500, L100.0100 ####[facility] [address] [place], [address] Platelets (Bld) [#/Vol] 315 10*3/uL Normal 150-450 [facility] Comment on above: Performed By: #### L 500.2500, L100.0100 ####[facility] [address] [place], [address] RBC (Bld) [#/Vol] 3.25 10*6/uL Low 4.2-5.4 [facility] Comment on above: Performed By: #### L 500.2500, L100.0100 ####[facility] [address] [place], [address] RDW SD 47.2 fl High 35.1-43.9 [facility] Comment on above: Performed By: #### L 500.2500, L100.0100 ####[facility] [address] [place], [address] WBC (Bld) [#/Vol] 4.5 10*3/uL Normal 4.4-11.0 [facility] Comment on above: Performed By: #### L 500.2500, L100.0100 ####[facility] [address] [place], [address] Carbon dioxide measurementOr dered By: Ken Scott on 06-27-2024 CO2 [Moles/Vol] 31.0 mmol/L 21.0-32.0 [facility] Chloride measurementOrdered By: Ken Scott 06-27-2024 Chloride [Moles/Vol] 105 mmol/L 98-107 [facility] Eosinophil percentageOrdered By: Ken Scott on 06-27-2024 Eosinophils/100 WBC (Bld) 8.6 % High 0-5 [facility] Erythrocyte distribution wid th ratioOrdered By: Ken Scott on 06-27-2024 Erythrocyte distribution width (RBC) [Ratio] 13.3 % 11.6-14.6 [facility] Erythrocyte distribution wid th standard deviationOrdered By: Ken Scott on 06-27-2024 Erythrocyte distribution width (RBC) [Entitic vol] 47.2 fL High 35.1-43.9 [facility] Estimated glomerular filtrat ion rate (GFR) AmericanOrdered By: Ken Scott on 06-27-2024 Estimated GFR (MDRD) Amer 83 mL/min >60 [facility] Comment on above: GFR Calc Estimation of creatinine will aranceOrdered By: Ken Scott on 06-27-2024 Estimated Creatinine Clearance Calc 42.63 ml/min [facility] Glomerular filtration rate ( GFR) estimationOrdered By: Ken Scott 06-27-2024 Estimated GFR (MDRD) Non-Af Amer 69 mL/min >60 [facility] Comment on above: Non- GFR Calc Glucose measurementOrdered B y: Ken Scott on 06-27-2024 Glucose [Mass/Vol] 98 mg/dL 74-106 [facility] Hematocrit Auto (Bld) [Volum e fraction]Ordered By: Ken Hernandezok on 06-27-2024 Hematocrit (Bld) [Volume fraction] 31.2 % Low 37-47 [facility] Hemoglobin measurementOrdere d By: Ken Scott on 06-27-2024 Hemoglobin (Bld) [Mass/Vol] 9.9 g/dL Low 12.0-15.0 [facility] Immature granulocytes/100 WB C Auto (Bld)Ordered By: Ken Scott on 06-27-2024 Immature granulocytes/100 WBC (Bld) 0.400 % 0.0-0.9 [facility] Comment on above: IG% - Immature Granu locytes (promyelocytes, myelocytes and metamyelocytes) > 1% indicates that a LEFT SHIFT is Present. Lymphocytes Auto (Unsp spec) [#/Vol]Ordered By: Ken Scott on 06-27-2024 Lymphocytes (Bld) [#/Vol] 1.63 10*3/uL 0.83-4.5 1 [facility] Lymphocytes/100 WBC Auto (Un sp spec)Ordered By: Ken Scott on 06-27-2024 Lymphocytes/100 WBC (Bld) 36.1 % 19-41 [facility] MCV (mean corpuscular volume ) determinationOrdered By: Ken Scott 06-27-2024 MCV (RBC) [Entitic vol] 96.0 fL 81-[address] [facility] Mean corpuscular hemoglobin (MCH) determinationOrdered By: Ken Scott on 06-27-2024 MCH (RBC) [Entitic mass] 30.5 pg 27.0-32.0 [facility] Mean corpuscular hemoglobin concentration (MCHC) determinationOrdered By: Ken Hernandez06-27-2024 MCHC (RBC) [Mass/Vol] 31.7 g/dL Low 32-36 [facility] Mean platelet volume determi nationOrdered By: Ken Scott on 06-27-2024 Platelet mean volume (Bld) [Entitic vol] 8.6 fL 6.2-12.0 [facility] Monocyte percentageOrdered B y: Ken Scott on 06-27-2024 Monocytes/100 WBC (Bld) 13.9 % High 0-[address] [facility] Neutrophil percentageOrdered By: Ken Hernandezok on 06-27-2024 Neutrophils/100 WBC (Bld) 40.3 % Low 47-70 [facility] Nucleated red blood cell per centageOrdered By: Ken Scott on 06-27-2024 Nucleated RBC/100 WBC (Bld) [Ratio] 0 % 0-5 [facility] Platelet countOrdered By: Noah Scott on 06-27-2024 Platelets (Bld) [#/Vol] 315 10*3/uL 150-450 [facility] Potassium measurementOrdered By: Ken Scott on 06-27-2024 Potassium [Moles/Vol] 4.0 mmol/L 3.5-5.1 [facility] RBC Auto (Bld) [#/Vol]Ordere d By: Ken Scott on 06-27-2024 RBC (Bld) [#/Vol] 3.25 10*6/uL Low 4.2-5.4 [facility] Serum anion gap measurementO rdered By: Ken Scott on 06-27-2024 Anion gap [Moles/Vol] 2 mmol/L Low 5-15 [facility] Serum or plasma calcium anthony urement (mass/volume)Ordered By: Ken Scott on 06-27-2024 Calcium [Mass/Vol] 9.3 mg/dL 8.5-10.1 [facility] Serum or plasma creatinine m easurement (mass/volume)Ordered By: Ken Scott on 06-27-2024 Creatinine [Mass/Vol] 0.84 mg/dL 0.55-1.02 [facility] Comment on above: The validity of the calculated GFR & GFRAA in patients over 70 years has not been determined. Clinical correlation is essential. Serum or plasma urea nitroge n measurement (mass/volume)Ordered By: Ken Scott on 06-27-2024 Urea nitrogen [Mass/Vol] 30 mg/dL High 7-18 [facility] Sodium levelOrdered By: Ken Scott on 06-27-2024 Sodium [Moles/Vol] 138 mmol/L 136-145 [facility] Urine Cultureon 06-27-2024 URC Below infection leve l. 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, [address] White blood cell (WBC) count Ordered By: Ken Scott on 06-27-2024 WBC (Bld) [#/Vol] 4.5 10*3/uL 4.4-11.0 [facility] Abdomen Single Viewon 2023 Abdomen Single View Normal [facility] Urine cultureOrdered By: Alayna Abad on 06-26-2024 Bacteria identified Cx Nom (U) GNR lactose riveter automobile brakes Abnormal [facility] Bacteria identified Cx Nom (U) GPC Poss Enterococcus sp Abnormal [facility] Urinalysis, Completeon 06-25 BACTERIA RARE Normal None Seen [facility] Comment on above: Order Comment: LISA TER SPECIMEN Performed By: #### L 400.0001 ####[facility] [address] [place], [address] RBC 0-5 SEEN Normal 0-5 [facility] Comment on above: Order Comment: LISA TER SPECIMEN Performed By: #### L 400.0001 ####[facility] [address] [place], [address] WBC 5-10 SEEN Normal 0-5 [facility] Comment on above: Order Comment: LISA TER SPECIMEN Performed By: #### L 400.0001 ####[facility] [address] [place], [address] EPI,SQUAMOUS 0 SEEN Normal 5-10 [facility] Comment on above: Order Comment: LISA TER SPECIMEN Performed By: #### L 400.0001 ####[facility] [address] [place], [address] Mucus Ql (Urine sed) 0 SEEN Normal [facility] Comment on above: Order Comment: LISA TER SPECIMEN Performed By: #### L 400.0001 ####[facility] [address] [place], [address] COVID 19 AG RAPID (MARIELOS Morales)on 06-24-2024 SARS-CoV-2 (COVID-19) RNA HOLLY+probe Ql (Unsp spec) SARS-CoV-2 (COVID 19) Negative RAPID METHOD BinaxNow COVID19 Ag Card Normal [facility] Comment on above: Performed By: #### M 100.505 ####[facility] [address] [place], [address] EGD Reporton 06-24-2024 EGD Report Normal [facility] H Pylori (initial)on 024 H Pylori (initial) Normal [facility] Comment on above: Performed By: #### P H.PYLORI ####[facility] [address] [place], [address] MR/POSTOP.ANEon 06-24-2024 MR/POSTOP.ANE Normal [facility] MR/[id number] 06-24-2024 MR/POSTOPAN2 Normal [facility] SARS-CoV-2 (COVID-19) Ag IA. rapid Ql (Resp)Ordered By: Ken Scott on 06-24-2024 SARS-CoV-2 Antigen (Rapid) [facility] Surgery Specimen Level Stephen 06-24-2024 Surgery Specimen Level IV Normal [facility] Comment on above: Performed By: #### P SUIV ####[facility] [address] [place], [address] HH, Hemoglobin AND Hematocri ton 06-21-2024 Hematocrit (Bld) [Volume fraction] 30.9 % Low 37-47 [facility] Comment on above: Performed By: #### L 100.0600 ####[facility] [address] [place], [place], [id number] Hemoglobin (Bld) [Mass/Vol] 10.0 g/dL Low 12.0-15.0 [facility] Comment on above: Performed By: #### L 100.0600 ####[facility] [address] [place], [address] MR/PAT.ANEon 06-21-2024 MR/PAT.ANE Normal [facility] Basic Metabolic Profile (BMP )on 06-20-2024 BUN/CRE 21.3 RATIO High - [facility] Comment on above: Performed By: #### L 500.2500, L100.0100 ####[facility] [address] [place], [address] CA,Total 9.3 mg/dL Normal 8.5-10.1 [facility] Comment on above: Performed By: #### L 500.2500, L100.0100 ####[facility] [address] [place], [address] Chloride [Moles/Vol] 105 mmol/L Normal 98-107 [facility] Comment on above: Performed By: #### L 500.2500, L100.0100 ####[facility] [address] [place], [address] CO2 [Moles/Vol] 31.0 mmol/L Normal 21.0-32.0 [facility] Comment on above: Performed By: #### L 500.2500, L100.0100 ####[facility] [address] [place], [address] Creatinine [Mass/Vol] 0.80 mg/dL Normal 0.55-1.02 [facility] Comment on above: Result Comment: The validity of the calculated GFR GFRAA in patients over70 years has not been determined. Clinical correlation isessential. Performed By: #### L 500.2500, L100.0100 ####[facility] [address] [place], [address] ECRCL 44.68 ml/min Normal [facility] Comment on above: Performed By: #### L 500.2500, L100.0100 ####[facility] [address] [place], [address] EST GFR - AA 88 mL/min Normal >60 [facility] Comment on above: Result Comment: Afri can Sammarinese GFR Calc Performed By: #### L 500.2500, L100.0100 ####[facility] [address] [place], [address] GAP 2 Low 5-15 [facility] Comment on above: Performed By: #### L 500.2500, L100.0100 ####[facility] [address] [place], [address] GFR/1.73 sq M.predicted among non-blacks MDRD (S/P/Bld) [Vol rate/Area] 73 mL/min/{1.73_m2} Normal >60 [facility] Comment on above: Result Comment: Non- GFR Calc Performed By: #### L 500.2500, L100.0100 ####[facility] [address] [place], [address] Glucose [Mass/Vol] 98 mg/dL Normal 74-106 [facility] Comment on above: Performed By: #### L 500.2500, L100.0100 ####[facility] [address] [place], [address] Potassium [Moles/Vol] 4.2 mmol/L Normal 3.5-5.1 [facility] Comment on above: Performed By: #### L 500.2500, L100.0100 ####[facility] [address] [place], [address] Sodium [Moles/Vol] 139 mmol/L Normal 136-145 [facility] Comment on above: Performed By: #### L 500.2500, L100.0100 ####[facility] [address] [place], [address] Urea nitrogen [Mass/Vol] 17 mg/dL Normal 7-18 [facility] Comment on above: Performed By: #### L 500.2500, L100.0100 ####[facility] [address] [place], [address] CBC W/Diff, Automatedon 06-02 Absolute Lymph 1.79 X10 3/uL Normal 0.83-4.51 [facility] Comment on above: Performed By: #### L 500.2500, L100.0100 ####[facility] [address] [place], [address] Absolute Neut 2.8 X10 3/uL Normal 2.0-7.7 [facility] Comment on above: Performed By: #### L 500.2500, L100.0100 ####[facility] [address] [place], [address] Basophils/100 WBC (Bld) 0.7 % Normal 0-[address] [facility] Comment on above: Performed By: #### L 500.2500, L100.0100 ####[facility] [address] [place], [address] Eosinophils/100 WBC (Bld) 9.9 % High 0-5 [facility] Comment on above: Performed By: #### L 500.2500, L100.0100 ####[facility] [address] [place], [address] Erythrocyte distribution width (RBC) [Ratio] 13.1 % Normal 11.6-14.6 [facility] Comment on above: Performed By: #### L 500.2500, L100.0100 ####[facility] [address] [place], [address] Hematocrit (Bld) [Volume fraction] 30.6 % Low 37-47 [facility] Comment on above: Performed By: #### L 500.2500, L100.0100 ####[facility] [address] [place], [address] Hemoglobin (Bld) [Mass/Vol] 9.8 g/dL Low 12.0-15.0 [facility] Comment on above: Performed By: #### L 500.2500, L100.0100 ####[facility] [address] [place], [address] IG% 0.200 Normal 0.0-0.9 [facility] Comment on above: Result Comment: IG% - Immature Granulocytes (promyelocytes, myelocytes andmetamyelocytes) > 1% indicates that a LEFT SHIFT is Present. Performed By: #### L 500.2500, L100.0100 ####[facility] [address] [place], [address] Lymphocytes/100 WBC (Bld) 31.1 % Normal 19-41 [facility] Comment on above: Performed By: #### L 500.2500, L100.0100 ####[facility] [address] [place], [address] MCH (RBC) [Entitic mass] 30.5 pg Normal 27.0-32.0 [facility] Comment on above: Performed By: #### L 500.2500, L100.0100 ####[facility] [address] [place], [address] MCHC (RBC) [Mass/Vol] 32.0 g/dL Normal 32-36 [facility] Comment on above: Performed By: #### L 500.2500, L100.0100 ####[facility] [address] [place], [address] MCV (RBC) [Entitic vol] 95.3 fL Normal 81-[address] [facility] Comment on above: Performed By: #### L 500.2500, L100.0100 ####[facility] [address] [place], [address] Monocytes/100 WBC (Bld) 10.1 % High 0-[address] [facility] Comment on above: Performed By: #### L 500.2500, L100.0100 ####[facility] [address] [place], [address] Neutrophils/100 WBC (Bld) 48.0 % Normal 47-70 [facility] Comment on above: Performed By: #### L 500.2500, L100.0100 ####[facility] [address] [place], [address] Nucleated RBC (Bld) [#/Vol] 0 10*3/uL Normal 0-5 [facility] Comment on above: Performed By: #### L 500.2500, L100.0100 ####[facility] [address] [place], [address] Platelet mean volume (Bld) [Entitic vol] 9.4 fL Normal 6.2-12.0 [facility] Comment on above: Performed By: #### L 500.2500, L100.0100 ####[facility] [address] [place], [address] Platelets (Bld) [#/Vol] 201 10*3/uL Normal 150-450 [facility] Comment on above: Performed By: #### L 500.2500, L100.0100 ####[facility] [address] [place], [address] RBC (Bld) [#/Vol] 3.21 10*6/uL Low 4.2-5.4 [facility] Comment on above: Performed By: #### L 500.2500, L100.0100 ####[facility] [address] [place], [address] RDW SD 45.4 fl High 35.1-43.9 [facility] Comment on above: Performed By: #### L 500.2500, L100.0100 ####[facility] [address] [place], [address] WBC (Bld) [#/Vol] 5.8 10*3/uL Normal 4.4-11.0 [facility] Comment on above: Performed By: #### L 500.2500, L100.0100 ####[facility] [address] [place], [address] Consultation - Orthopedicson 06-19-2024 Consultation - Orthopedics Normal [facility] Urine Cultureon 06-19-2024 URC Culture exhibits no growth. Normal [facility] Comment on above: Performed By: #### M 100.2200 ####[facility] [address] [place], [address] Absolute neutrophil countOrd ered By: Aranza Reynolds on 06-18-2024 Neutrophils (Bld) [#/Vol] 4.2 10*3/uL 2.0-7.7 [facility] Basic Metabolic Profile (BMP )on 06-18-2024 BUN/CRE 21.0 RATIO High 10-20 [facility] Comment on above: Performed By: #### L 500.2500, L100.0100 ####[facility] [address], [address] CA,Total 8.7 mg/dL Normal 8.5-10.1 [facility] Comment on above: Performed By: #### L 500.2500, L100.0100 ####[facility] [address] [place], [address] ECRCL 40.45 ml/min Normal [facility] Comment on above: Performed By: #### L 500.2500, L100.0100 ####[facility] [address] [place], [address] EST GFR - AA 81 mL/min Normal >60 [facility] Comment on above: Result Comment: Afri can Sammarinese GFR Calc Performed By: #### L 500.2500, L100.0100 ####[facility] [address] [place], [address] GAP 4 Low 5-15 [facility] Comment on above: Performed By: #### L 500.2500, L100.0100 ####[facility] [address] [place], [address] GFR/1.73 sq M.predicted among non-blacks MDRD (S/P/Bld) [Vol rate/Area] 67 mL/min/{1.73_m2} Normal >60 [facility] Comment on above: Result Comment: Non- GFR Calc Performed By: #### L 500.2500, L100.0100 ####[facility] [address] [place], [address] Basophil percentageOrdered B y: Aranza Reynolds on 06-18-2024 Basophils/100 WBC (Bld) 0.4 % 0-[address] [facility] Blood urea nitrogen (BUN)/cr eatinine ratioOrdered By: Aranza Reynolds on 06-18-2024 Urea nitrogen/Creatinine [Mass ratio] 21.0 mg/mg High 10-20 [facility] CBC W/Diff, Automatedon 06-02 Absolute Lymph 2.24 X10 3/uL Normal 0.83-4.51 [facility] Comment on above: Performed By: #### L 500.2500, L100.0100 ####[facility] [address] [place], [address] Absolute Neut 4.2 X10 3/uL Normal 2.0-7.7 [facility] Comment on above: Performed By: #### L 500.2500, L100.0100 ####[facility] [address] [place], [address] Basophils/100 WBC (Bld) 0.4 % Normal 0-[address] [facility] Comment on above: Performed By: #### L 500.2500, L100.0100 ####[facility] [address] [place], [address] Eosinophils/100 WBC (Bld) 5.1 % High 0-5 [facility] Comment on above: Performed By: #### L 500.2500, L100.0100 ####[facility] [address] [place], [address] Erythrocyte distribution width (RBC) [Ratio] 13.2 % Normal 11.6-14.6 [facility] Comment on above: Performed By: #### L 500.2500, L100.0100 ####[facility] [address] [place], [address] Hematocrit (Bld) [Volume fraction] 32.6 % Low 37-47 [facility] Comment on above: Performed By: #### L 500.2500, L100.0100 ####[facility] [address] [place], [address] Hemoglobin (Bld) [Mass/Vol] 10.2 g/dL Low 12.0-15.0 [facility] Comment on above: Performed By: #### L 500.2500, L100.0100 ####[facility] [address] [place], [address] IG% 0.400 Normal 0.0-0.9 [facility] Comment on above: Result Comment: IG% - Immature Granulocytes (promyelocytes, myelocytes andmetamyelocytes) > 1% indicates that a LEFT SHIFT is Present. Performed By: #### L 500.2500, L100.0100 ####[facility] [address] [place], [address] Lymphocytes/100 WBC (Bld) 29.2 % Normal 19-41 [facility] Comment on above: Performed By: #### L 500.2500, L100.0100 ####[facility] [address] [place], [address] MCH (RBC) [Entitic mass] 30.3 pg Normal 27.0-32.0 [facility] Comment on above: Performed By: #### L 500.2500, L100.0100 ####[facility] [address] [place], [address] MCHC (RBC) [Mass/Vol] 31.3 g/dL Low 32-36 [facility] Comment on above: Performed By: #### L 500.2500, L100.0100 ####[facility] [address] [place], [address] MCV (RBC) [Entitic vol] 96.7 fL Normal 81-[address] [facility] Comment on above: Performed By: #### L 500.2500, L100.0100 ####[facility] [address], [address] Monocytes/100 WBC (Bld) 10.7 % High 0-[address] [facility] Comment on above: Performed By: #### L 500.2500, L100.0100 ####[facility] [address] [place], [address] Neutrophils/100 WBC (Bld) 54.2 % Normal 47-70 [facility] Comment on above: Performed By: #### L 500.2500, L100.0100 ####[facility] [address] [place], [address] Nucleated RBC (Bld) [#/Vol] 0 10*3/uL Normal 0-5 [facility] Comment on above: Performed By: #### L 500.2500, L100.0100 ####[facility] [address] [place], [address] Platelet mean volume (Bld) [Entitic vol] 9.1 fL Normal 6.2-12.0 [facility] Comment on above: Performed By: #### L 500.2500, L100.0100 ####[facility] [address] [place], [address] Platelets (Bld) [#/Vol] 192 10*3/uL Normal 150-450 [facility] Comment on above: Performed By: #### L 500.2500, L100.0100 ####[facility] [address] [place], [address] RBC (Bld) [#/Vol] 3.37 10*6/uL Low 4.2-5.4 [facility] Comment on above: Performed By: #### L 500.2500, L100.0100 ####[facility] [address] [place], [address] RDW SD 47.3 fl High 35.1-43.9 [facility] Comment on above: Performed By: #### L 500.2500, L100.0100 ####[facility] [address] [place], [address] WBC (Bld) [#/Vol] 7.7 10*3/uL Normal 4.4-11.0 [facility] Comment on above: Performed By: #### L 500.2500, L100.0100 ####[facility] [address] [place], [address] Carbon dioxide measurementOr dered By: Aranza Reynolds on 06-18-2024 CO2 [Moles/Vol] 27.0 mmol/L Normal 21.0-32.0 [facility] Comment on above: Performed By: #### L 500.2500, L100.0100 ####[facility] [address] [place], [address] Chloride measurementOrdered By: Aranza Reynolds on 06-18-2024 Chloride [Moles/Vol] 106 mmol/L Normal 98-107 [facility] Comment on above: Performed By: #### L 500.2500, L100.0100 ####[facility] [address] [place], [place], [id number] Eosinophil percentageOrdered By: Aranza Reynolds on 06-18-2024 Eosinophils/100 WBC (Bld) 5.1 % High 0-5 [facility] Erythrocyte distribution wid th ratioOrdered By: Aranza Reynolds on 06-18-2024 Erythrocyte distribution width (RBC) [Ratio] 13.2 % 11.6-14.6 [facility] Erythrocyte distribution wid th standard deviationOrdered By: Aranza Reynolds on 06-18-2024 Erythrocyte distribution width (RBC) [Entitic vol] 47.3 fL High 35.1-43.9 [facility] Estimated glomerular filtrat ion rate (GFR) AmericanOrdered By: Aranza Reynolds on 06-18-2024 Estimated GFR (MDRD) Amer 81 mL/min >60 [facility] Comment on above: GFR Calc Estimation of creatinine will aranceOrdered By: Aranza Reynolds on 06-18-2024 Estimated Creatinine Clearance Calc 40.45 ml/min [facility] Glomerular filtration rate ( GFR) estimationOrdered By: Aranza Reynolds on 06-18-2024 Estimated GFR (MDRD) Non-Af Amer 67 mL/min >60 [facility] Comment on above: Non- GFR Calc Glucose measurementOrdered B y: Aranza Reynolds on 06-18-2024 Glucose [Mass/Vol] 106 mg/dL Normal 74-106 [facility] Comment on above: Fasting Glucose resu lt from 100 to 125 mg/dL suggests IMPAIRED HOMEOSTASIS per A.D.A. criteria. Result Comment: Fast ing Glucose result from 100 to 125 mg/dLsuggests IMPAIRED HOMEOSTASIS per A.D.A. criteria. Performed By: #### L 500.2500, L100.0100 ####[facility] [address] [place], [place], [id number] Hematocrit Auto (Bld) [Volum e fraction]Ordered By: Aranza Reynolds on 06-18-2024 Hematocrit (Bld) [Volume fraction] 32.6 % Low 37-47 [facility] Hemoglobin measurementOrdere d By: Aranza Reynolds on 06-18-2024 Hemoglobin (Bld) [Mass/Vol] 10.2 g/dL Low 12.0-15.0 [facility] Immature granulocytes/100 WB C Auto (Bld)Ordered By: Aranza Reynolds on 06-18-2024 Immature granulocytes/100 WBC (Bld) 0.400 % 0.0-0.9 [facility] Comment on above: IG% - Immature Granu locytes (promyelocytes, myelocytes and metamyelocytes) > 1% indicates that a LEFT SHIFT is Present. Lymphocytes Auto (Unsp spec) [#/Vol]Ordered By: Aranza Reynolds on 06-18-2024 Lymphocytes (Bld) [#/Vol] 2.24 10*3/uL 0.83-4.5 1 [facility] Lymphocytes/100 WBC Auto (Un sp spec)Ordered By: Aranza Reynolds on 06-18-2024 Lymphocytes/100 WBC (Bld) 29.2 % 19-41 [facility] MCV (mean corpuscular volume ) determinationOrdered By: Aranza Reynolds on 06-18-2024 MCV (RBC) [Entitic vol] 96.7 fL 81-[address] [facility] Mean corpuscular hemoglobin (MCH) determinationOrdered By: Aranza Reynolds on 06-18-2024 MCH (RBC) [Entitic mass] 30.3 pg 27.0-32.0 [facility] Mean corpuscular hemoglobin concentration (MCHC) determinationOrdered By: Aranza Reynolds on 06-18-2024 MCHC (RBC) [Mass/Vol] 31.3 g/dL Low 32-36 [facility] Mean platelet volume determi nationOrdered By: Aranza Reynolds on 06-18-2024 Platelet mean volume (Bld) [Entitic vol] 9.1 fL 6.2-12.0 [facility] Monocyte percentageOrdered B y: Aranza Reynolds on 06-18-2024 Monocytes/100 WBC (Bld) 10.7 % High 0-[address] [facility] Neutrophil percentageOrdered By: Aranza Reynolds on 06-18-2024 Neutrophils/100 WBC (Bld) 54.2 % 47-70 [facility] Nucleated red blood cell per centageOrdered By: Aranza Reynolds on 06-18-2024 Nucleated RBC/100 WBC (Bld) [Ratio] 0 % 0-5 [facility] Platelet countOrdered By: Jaxon Reynolds on 06-18-2024 Platelets (Bld) [#/Vol] 192 10*3/uL 150-450 [facility] Potassium measurementOrdered By: Aranza Reynolds on 06-18-2024 Potassium [Moles/Vol] 4.4 mmol/L Normal 3.5-5.1 [facility] Comment on above: Performed By: #### L 500.2500, L100.0100 ####[facility] [address] [place], [place], [id number] RBC Auto (Bld) [#/Vol]Ordere d By: Aranza Reynolds on 06-18-2024 RBC (Bld) [#/Vol] 3.37 10*6/uL Low 4.2-5.4 [facility] Serum anion gap measurementO rdered By: Aranza Reynolds on 06-18-2024 Anion gap [Moles/Vol] 4 mmol/L Low 5-15 [facility] Serum or plasma calcium anthony urement (mass/volume)Ordered By: Aranza Reynolds on 06-18-2024 Calcium [Mass/Vol] 8.7 mg/dL 8.5-10.1 [facility] Serum or plasma creatinine m easurement (mass/volume)Ordered By: Aranza Reynolds on 06-18-2024 Creatinine [Mass/Vol] 0.86 mg/dL Normal 0.55-1.02 [facility] Comment on above: The validity of the calculated GFR & GFRAA in patients over 70 years has not been determined. Clinical correlation is essential. Result Comment: The validity of the calculated GFR GFRAA in patients over70 years has not been determined. Clinical correlation isessential. Performed By: #### L 500.2500, L100.0100 ####[facility] [address] [place], [place], [address] Serum or plasma urea nitroge n measurement (mass/volume)Ordered By: Aranza Reynolds on 06-18-2024 Urea nitrogen [Mass/Vol] 18 mg/dL Normal 7-18 [facility] Comment on above: Performed By: #### L 500.2500, L100.0100 ####[facility] [address] [place], [address] Sodium levelOrdered By: Jm Reynolds on 06-18-2024 Sodium [Moles/Vol] 137 mmol/L Normal 136-145 [facility] Comment on above: Performed By: #### L 500.2500, L100.0100 ####[facility] [address] [place], [address] White blood cell (WBC) count Ordered By: Aranza Reynolds on 06-18-2024 WBC (Bld) [#/Vol] 7.7 10*3/uL 4.4-11.0 [facility] Albumin to globulin ratioOrd ered By: Jean Morales on 06-17-2024 Albumin/Globulin [Mass ratio] 1.0 {ratio} 0.9-2.4 [facility] Bilirubin Test strip Ql (U)O rdered By: Jean Morales on 06-17-2024 Bilirubin Ql (U) Negative Negative [facility] Bilirubin, totalOrdered By: Jean Morales on 06-17-2024 Bilirubin [Mass/Vol] 0.40 mg/dL 0.20-1.00 [facility] Comment on above: For patients on eltr ombopag therapy, use of Dimension [place] TBIL is not recommended. CBC-Complete Blood Cnt No Di ffon 06-17-2024 Erythrocyte distribution width (RBC) [Ratio] 13.2 % Normal 11.6-14.6 [facility] Comment on above: Performed By: #### L 500.4050, L100.0500 ####[facility] [address] [place], [address] Hematocrit (Bld) [Volume fraction] 33.0 % Low 37-47 [facility] Comment on above: Performed By: #### L 500.4050, L100.0500 ####[facility] [address] [place], [address] Hemoglobin (Bld) [Mass/Vol] 10.6 g/dL Low 12.0-15.0 [facility] Comment on above: Performed By: #### L 500.4050, L100.0500 ####[facility] [address] [place], [address] MCH (RBC) [Entitic mass] 30.8 pg Normal 27.0-32.0 [facility] Comment on above: Performed By: #### L 500.4050, L100.0500 ####[facility] [address] [place], [address] MCHC (RBC) [Mass/Vol] 32.1 g/dL Normal 32-36 [facility] Comment on above: Performed By: #### L 500.4050, L100.0500 ####[facility] [address] [place], [address] MCV (RBC) [Entitic vol] 95.9 fL Normal 81-99 [facility] Comment on above: Performed By: #### L 500.4050, L100.0500 ####[facility] [address] [place], [address] Platelet mean volume (Bld) [Entitic vol] 9.3 fL Normal 6.2-12.0 [facility] Comment on above: Performed By: #### L 500.4050, L100.0500 ####[facility] [address] [place], [address] Platelets (Bld) [#/Vol] 198 10*3/uL Normal 150-450 [facility] Comment on above: Performed By: #### L 500.4050, L100.0500 ####[facility] [address] [place], [address] RBC (Bld) [#/Vol] 3.44 10*6/uL Low 4.2-5.4 [facility] Comment on above: Performed By: #### L 500.4050, L100.0500 ####[facility] [address] [place], [address] RDW SD 46.9 fl High 35.1-43.9 [facility] Comment on above: Performed By: #### L 500.4050, L100.0500 ####[facility] [address] [place], [address] WBC (Bld) [#/Vol] 7.4 10*3/uL Normal 4.4-11.0 [facility] Comment on above: Performed By: #### L 500.4050, L100.0500 ####[facility] [address] [place], [address] CPK Total, Creatine Kinaseon 06-17-2024 CPK TOTAL 66 U/L Normal 26-192 [facility] Comment on above: Performed By: #### L 501.3620 ####[facility] [address] [place], [address] Comprehensive Metabolic Prof ilon 06-17-2024 Albumin [Mass/Vol] 3.0 g/dL Low 3.2-5.0 [facility] Comment on above: Performed By: #### L 500.4050, L100.0500 ####[facility] [address] [place], [address] Albumin/Globulin [Mass ratio] 1.0 {ratio} Normal 0.9-2.4 [facility] Comment on above: Performed By: #### L 500.4050, L100.0500 ####[facility] [address] [place], [address] ALK P 64 U/L Normal 45-117 [facility] Comment on above: Performed By: #### L 500.4050, L100.0500 ####[facility] [address] [place], [address] ALT [Catalytic activity/Vol] 12 U/L Low 13-56 [facility] Comment on above: Performed By: #### L 500.4050, L100.0500 ####[facility] [address] [place], [address] AST [Catalytic activity/Vol] 10 U/L Low 15-37 [facility] Comment on above: Performed By: #### L 500.4050, L100.0500 ####[facility] [address] [place], [address] Bilirubin [Mass/Vol] 0.40 mg/dL Normal 0.20-1.00 [facility] Comment on above: Result Comment: For patients on eltrombopag therapy, use of Dimension [place] TBIL is not recommended. Performed By: #### L 500.4050, L100.0500 ####[facility] [address] [place], [address] BUN/CRE 23.5 RATIO High 10-20 [facility] Comment on above: Performed By: #### L 500.4050, L100.0500 ####[facility] [address] [place], [address] CA,Total 8.6 mg/dL Normal 8.5-10.1 [facility] Comment on above: Performed By: #### L 500.4050, L100.0500 ####[facility] [address] [place], [address] Chloride [Moles/Vol] 108 mmol/L High 98-107 [facility] Comment on above: Performed By: #### L 500.4050, L100.0500 ####[facility] [address] [place], [address] CO2 [Moles/Vol] 27.0 mmol/L Normal 21.0-32.0 [facility] Comment on above: Performed By: #### L 500.4050, L100.0500 ####[facility] [address] [place], [address] Creatinine [Mass/Vol] 0.89 mg/dL Normal 0.55-1.02 [facility] Comment on above: Result Comment: The validity of the calculated GFR GFRAA in patients over70 years has not been determined. Clinical correlation isessential. Performed By: #### L 500.4050, L100.0500 ####[facility] [address] [place], [address] ECRCL 41.60 ml/min Normal [facility] Comment on above: Performed By: #### L 500.4050, L100.0500 ####[facility] [address] [place], [address] EST GFR - AA 78 mL/min Normal >60 [facility] Comment on above: Result Comment: Afri can Sammar[place] GFR Calc Performed By: #### L 500.4050, L100.0500 ####[facility] [address] [place], [address] GAP 4 Low 5-15 [facility] Comment on above: Performed By: #### L 500.4050, L100.0500 ####[facility] [address] [place], [address] GFR/1.73 sq M.predicted among non-blacks MDRD (S/P/Bld) [Vol rate/Area] 64 mL/min/{1.73_m2} Normal >60 [facility] Comment on above: Result Comment: Non- GFR Calc Performed By: #### L 500.4050, L100.0500 ####[facility] [address] [place], [address] Globulin (S) [Mass/Vol] 2.9 g/dL Normal 2.2-4.2 [facility] Comment on above: Performed By: #### L 500.4050, L100.0500 ####[facility] [address] [place], [address] Glucose [Mass/Vol] 113 mg/dL High 74-106 [facility] Comment on above: Result Comment: Fast ing Glucose result from 100 to 125 mg/dLsuggests IMPAIRED HOMEOSTASIS per A.D.A. criteria. Performed By: #### L 500.4050, L100.0500 ####[facility] [address] [place], [address] Potassium [Moles/Vol] 4.2 mmol/L Normal 3.5-5.1 [facility] Comment on above: Performed By: #### L 500.4050, L100.0500 ####[facility] [address] [place], [address] Sodium [Moles/Vol] 139 mmol/L Normal 136-145 [facility] Comment on above: Performed By: #### L 500.4050, L100.0500 ####[facility] [address] [place], [address] T PROT 5.9 g/dL Low 6.4-8.2 [facility] Comment on above: Performed By: #### L 500.4050, L100.0500 ####[facility] [address] [place], [address] Urea nitrogen [Mass/Vol] 21 mg/dL High 7-18 [facility] Comment on above: Performed By: #### L 500.4050, L100.0500 ####[facility] [address] [place], [address] Emergency Department Summary on 06-17-2024 Emergency Department Summary Normal [facility] Epithelial cells.squamous LM Ql (Urine sed)Ordered By: Jean Morales on 06-17-2024 Epithelial cells.squamous LM.HPF (Urine sed) [#/Area] 0 /[HPF] 5-10 [facility] Extremity Lower without Cont raon 06-17-2024 Extremity Lower without Contra Normal [facility] Glucose Ql (U)Ordered By: Romana Morales on 06-17-2024 Urine Glucose (UA) Normal mg/dl Normal [facility] H AND P Exam - Hospitaliston 06-17-2024 H&P Exam - Hospitalist Normal [facility] Ketones Test strip Ql (U)Ord ered By: Jean Morales on 06-17-2024 Ketones Ql (U) Negative Negative [facility] Laboratory - Chemistry and C hemistry - challengeOrdered By: Jean Morales on 06-17-2024 AST [Catalytic activity/Vol] 10 U/L Low 15-37 [facility] Microscopic analysis of urin e for red blood cells (RBC)Ordered By: Jean Morales on 06-17-2024 Urine RBC 0 SEEN /hpf 0-5 [facility] Mucus LM Ql (Urine sed)Order ed By: Jean Morales on 06-17-2024 Mucus Ql (Urine sed) 0 SEEN /hpf [facility] Nitrite Test strip Ql (U)Ord ered By: Jean Morales on 06-17-2024 Nitrite Ql (U) Negative Negative [facility] Protein Test strip Ql (U)Ord ered By: Jean Morales on 06-17-2024 Protein Ql (U) 15 mg/dl High Negative [facility] Serum globulin measurementOr dered By: Jean Morales on 06-17-2024 Globulin (S) [Mass/Vol] 2.9 g/dL 2.2-4.[address] [facility] Serum or plasma alanine brennan otransferase (ALT) measurementOrdered By: Jean Morales on 06-17-2024 ALT [Catalytic activity/Vol] 12 U/L Low 13-56 [facility] Serum or plasma albumin anthony urement (mass/volume)Ordered By: Jean Morales on 06-17-2024 Albumin [Mass/Vol] 3.0 g/dL Low 3.2-5.0 [facility] Serum or plasma alkaline cory sphatase measurementOrdered By: Jean Morales on 06-17-2024 ALP [Catalytic activity/Vol] 64 U/L 45-117 [facility] Total creatine kinase measur ementOrdered By: Jean Morales on 06-17-2024 CK [Catalytic activity/Vol] 66 U/L 26-192 [facility] Total proteinOrdered By: Shay Morales on 06-17-2024 Protein [Mass/Vol] 5.9 g/dL Low 6.4-8.2 [facility] Urinalysis, Completeon 06-17 BACTERIA 4+ /hpf Normal None Seen [facility] Comment on above: Order Comment: ROSINA CTOR TO SPECIFY Performed By: #### L 400.0001 ####[facility] [address] [place], [address] EPI,SQUAMOUS 0-5 SEEN Normal 5-10 [facility] Comment on above: Order Comment: ROSINA CTOR TO SPECIFY Performed By: #### L 400.0001 ####[facility] [address] [place], [address] WBC 5-10 SEEN Normal 0-5 [facility] Comment on above: Order Comment: ROSINA CTOR TO SPECIFY Performed By: #### L 400.0001 ####[facility] [address] [place], [address] Mucus Ql (Urine sed) 0 SEEN Normal [facility] Comment on above: Order Comment: ROSINA CTOR TO SPECIFY Performed By: #### L 400.0001 ####[facility] [address] [place], [address] RBC 0 SEEN Normal 0-5 [facility] Comment on above: Order Comment: ROSINA CTOR TO SPECIFY Performed By: #### L 400.0001 ####[facility] [address] [place], [address] Urine blood detectionOrdered By: Jean Morales on 06-17-2024 Urine Occult Blood Negative Negative [facility] Urine clarityOrdered By: Shay Morales on 06-17-2024 Clarity (U) Cloudy Clear [facility] Urine color determinationOrd ered By: Jean Morales on 06-17-2024 Color (U) Yellow Yellow [facility] Urine cultureOrdered By: Richar Reynolds on 06-17-2024 Bacteria identified Cx Nom (U) Culture exhibits no growth. [facility] Urine leukocyte esterase det ection by dipstickOrdered By: Jean Morales on 06-17-2024 Leukocyte esterase Test strip Ql (U) 25 /ul High Negative [facility] Urine pHOrdered By: Jean morocho on 06-17-2024 pH (U) 6.5 [pH] 5.0 - 8.0 [facility] Urine sediment bacteria coun t by microscopy (number/high power field)Ordered By: Jean Morales on 06-17-2024 Bacteria LM.HPF (Urine sed) [#/Area] 4 /[HPF] None Seen [facility] Urine specific gravity measu rementOrdered By: Jean Morales on 06-17-2024 Specific gravity (U) [Rel density] 1.010 1.002-1.030 [facility] Urobilinogen Ql (U)Ordered B y: Jean Morales on 06-17-2024 Urine Urobilinogen Normal mg/dl Normal [facility] White blood cell countOrdere d By: Jean Morales on 06-17-2024 Urine WBC 5-10 SEEN /hpf 0-5 [facility] Absolute neutrophil countOrd ered By: Brent Nuñez on 06-16-2024 Neutrophils (Bld) [#/Vol] 5.4 10*3/uL 2.0-7.7 [facility] Basic Metabolic Profile (BMP )on 06-16-2024 BUN/CRE 17.4 RATIO Normal 10-20 [facility] Comment on above: Performed By: #### L 100.0100, L500.2500 ####[facility] [address] [place], [address] CA,Total 9.0 mg/dL Normal 8.5-10.1 [facility] Comment on above: Performed By: #### L 100.0100, L500.2500 ####[facility] [address] [place], [address] Chloride [Moles/Vol] 107 mmol/L Normal 98-107 [facility] Comment on above: Performed By: #### L 100.0100, L500.2500 ####[facility] [address] [place], [address] CO2 [Moles/Vol] 27.0 mmol/L Normal 21.0-32.0 [facility] Comment on above: Performed By: #### L 100.0100, L500.2500 ####[facility] [address] [place], [address] Creatinine [Mass/Vol] 1.32 mg/dL High 0.55-1.02 [facility] Comment on above: Result Comment: The validity of the calculated GFR GFRAA in patients over70 years has not been determined. Clinical correlation isessential. Performed By: #### L 100.0100, L500.2500 ####[facility] [address] [place], [address] ECRCL 27.50 ml/min Normal [facility] Comment on above: Performed By: #### L 100.0100, L500.2500 ####[facility] [address] [place], [address] EST GFR - AA 49 mL/min Low >60 [facility] Comment on above: Result Comment: Afri can S[place] GFR Calc Performed By: #### L 100.0100, L500.2500 ####[facility] [address] [place], [address] GAP 5 Normal 5-15 [facility] Comment on above: Performed By: #### L 100.0100, L500.2500 ####[facility] [address] [place], [address] GFR/1.73 sq M.predicted among non-blacks MDRD (S/P/Bld) [Vol rate/Area] 41 mL/min/{1.73_m2} Low >60 [facility] Comment on above: Result Comment: Non- GFR Calc Performed By: #### L 100.0100, L500.2500 ####[facility] [address] [place], [address] Glucose [Mass/Vol] 117 mg/dL High 74-106 [facility] Comment on above: Result Comment: Fast ing Glucose result from 100 to 125 mg/dLsuggests IMPAIRED HOMEOSTASIS per A.D.A. criteria. Performed By: #### L 100.0100, L500.2500 ####[facility] [address] [place], [address] Potassium [Moles/Vol] 4.4 mmol/L Normal 3.5-5.1 [facility] Comment on above: Performed By: #### L 100.0100, L500.2500 ####[facility] [address] [place], [address] Sodium [Moles/Vol] 138 mmol/L Normal 136-145 [facility] Comment on above: Performed By: #### L 100.0100, L500.2500 ####[facility] [address] [place], [address] Urea nitrogen [Mass/Vol] 23 mg/dL High 7-18 [facility] Comment on above: Performed By: #### L 100.0100, L500.2500 ####[facility] [address] [place], [address] Basophil percentageOrdered B y: Brent Nuñez on 06-16-2024 Basophils/100 WBC (Bld) 0.6 % 0-[address] [facility] Blood urea nitrogen (BUN)/cr eatinine ratioOrdered By: Brent Nuñez on 06-16-2024 Urea nitrogen/Creatinine [Mass ratio] 17.4 mg/mg 10-20 [facility] CBC W/Diff, Automatedon 06-02 Absolute Lymph 2.78 X10 3/uL Normal 0.83-4.51 [facility] Comment on above: Performed By: #### L 100.0100, L500.2500 ####[facility] [address] [place], [address] Absolute Neut 5.4 X10 3/uL Normal 2.0-7.7 [facility] Comment on above: Performed By: #### L 100.0100, L500.2500 ####[facility] [address] [place], [address] Basophils/100 WBC (Bld) 0.6 % Normal 0-[address] [facility] Comment on above: Performed By: #### L 100.0100, L500.2500 ####[facility] [address] [place], [address] Eosinophils/100 WBC (Bld) 4.9 % Normal 0-5 [facility] Comment on above: Performed By: #### L 100.0100, L500.2500 ####[facility] [address] [place], [address] Erythrocyte distribution width (RBC) [Ratio] 13.2 % Normal 11.6-14.6 [facility] Comment on above: Performed By: #### L 100.0100, L500.2500 ####[facility] [address] [place], [address] Hematocrit (Bld) [Volume fraction] 37.0 % Normal 37-47 [facility] Comment on above: Performed By: #### L 100.0100, L500.2500 ####[facility] [address] [place], [address] Hemoglobin (Bld) [Mass/Vol] 12.1 g/dL Normal 12.0-15.0 [facility] Comment on above: Performed By: #### L 100.0100, L500.2500 ####[facility] [address] [place], [address] IG% 0.500 Normal 0.0-0.9 [facility] Comment on above: Result Comment: IG% - Immature Granulocytes (promyelocytes, myelocytes andmetamyelocytes) > 1% indicates that a LEFT SHIFT is Present. Performed By: #### L 100.0100, L500.2500 ####[facility] [address] [place], [address] Lymphocytes/100 WBC (Bld) 29.1 % Normal 19-41 [facility] Comment on above: Performed By: #### L 100.0100, L500.2500 ####[facility] [address] [place], [address] MCH (RBC) [Entitic mass] 30.9 pg Normal 27.0-32.0 [facility] Comment on above: Performed By: #### L 100.0100, L500.2500 ####[facility] [address] [place], [address] MCHC (RBC) [Mass/Vol] 32.7 g/dL Normal 32-36 [facility] Comment on above: Performed By: #### L 100.0100, L500.2500 ####[facility] [address] [place], [address] MCV (RBC) [Entitic vol] 94.6 fL Normal 81-99 [facility] Comment on above: Performed By: #### L 100.0100, L500.2500 ####[facility] [address] [place], [address] Monocytes/100 WBC (Bld) 8.8 % Normal 0-10 [facility] Comment on above: Performed By: #### L 100.0100, L500.2500 ####[facility] [address] [place], [address] Neutrophils/100 WBC (Bld) 56.1 % Normal 47-70 [facility] Comment on above: Performed By: #### L 100.0100, L500.2500 ####[facility] [address] [place], [address] Nucleated RBC (Bld) [#/Vol] 0 10*3/uL Normal 0-5 [facility] Comment on above: Performed By: #### L 100.0100, L500.2500 ####[facility] [address] [place], [address] Platelet mean volume (Bld) [Entitic vol] 9.2 fL Normal 6.2-12.0 [facility] Comment on above: Performed By: #### L 100.0100, L500.2500 ####[facility] [address], [address] Platelets (Bld) [#/Vol] 214 10*3/uL Normal 150-450 [facility] Comment on above: Performed By: #### L 100.0100, L500.2500 ####[facility] [address] [place], [address] RBC (Bld) [#/Vol] 3.91 10*6/uL Low 4.2-5.4 [facility] Comment on above: Performed By: #### L 100.0100, L500.2500 ####[facility] [address] [place], [address] RDW SD 45.2 fl High 35.1-43.9 [facility] Comment on above: Performed By: #### L 100.0100, L500.2500 ####[facility] [address] [place], [address] WBC (Bld) [#/Vol] 9.6 10*3/uL Normal 4.4-11.0 [facility] Comment on above: Performed By: #### L 100.0100, L500.2500 ####[facility] [address] [place], [address] Carbon dioxide measurementOr dered By: Brent Nuñez on 06-16-2024 CO2 [Moles/Vol] 27.0 mmol/L 21.0-32.0 [facility] Chloride measurementOrdered By: Brent Nuñez on 06-16-2024 Chloride [Moles/Vol] 107 mmol/L 98-107 [facility] Emergency Department Summary on 06-16-2024 Emergency Department Summary Normal [facility] Eosinophil percentageOrdered By: Brent Nuñez on 06-16-2024 Eosinophils/100 WBC (Bld) 4.9 % 0-5 [facility] Erythrocyte distribution wid th ratioOrdered By: Brent Nuñez on 06-16-2024 Erythrocyte distribution width (RBC) [Ratio] 13.2 % 11.6-14.6 [facility] Erythrocyte distribution wid th standard deviationOrdered By: Brent Nuñez on 06-16-2024 Erythrocyte distribution width (RBC) [Entitic vol] 45.2 fL High 35.1-43.9 [facility] Estimated glomerular filtrat ion rate (GFR) AmericanOrdered By: Brent Nuñez on 06-16-2024 Estimated GFR (MDRD) Amer 49 mL/min Low >60 [facility] Comment on above: GFR Calc Estimation of creatinine will aranceOrdered By: Brent Nuñez on 06-16-2024 Estimated Creatinine Clearance Calc 27.50 ml/min [facility] Glomerular filtration rate ( GFR) estimationOrdered By: Brent Nuñez on 06-16-2024 Estimated GFR (MDRD) Non-Af Amer 41 mL/min Low >60 [facility] Comment on above: Non- GFR Calc Glucose measurementOrdered B y: Brent Nuñez on 06-16-2024 Glucose [Mass/Vol] 117 mg/dL High 74-106 [facility] Comment on above: Fasting Glucose resu lt from 100 to 125 mg/dL suggests IMPAIRED HOMEOSTASIS per A.D.A. criteria. Hematocrit Auto (Bld) [Volum e fraction]Ordered By: Brent Nuñez on 06-16-2024 Hematocrit (Bld) [Volume fraction] 37.0 % 37-47 [facility] Hemoglobin measurementOrdere d By: Brent Nuñez on 06-16-2024 Hemoglobin (Bld) [Mass/Vol] 12.1 g/dL 12.0-15.0 [facility] Immature granulocytes/100 WB C Auto (Bld)Ordered By: Brent Nuñez on 06-16-2024 Immature granulocytes/100 WBC (Bld) 0.500 % 0.0-0.9 [facility] Comment on above: IG% - Immature Granu locytes (promyelocytes, myelocytes and metamyelocytes) > 1% indicates that a LEFT SHIFT is Present. Knee 3 Viewson 06-16-2024 Knee 3 Views Normal [facility] Lymphocytes Auto (Unsp spec) [#/Vol]Ordered By: Brent Nuñez on 06-16-2024 Lymphocytes (Bld) [#/Vol] 2.78 10*3/uL 0.83-4.5 1 [facility] Lymphocytes/100 WBC Auto (Un sp spec)Ordered By: Brent Nuñez on 06-16-2024 Lymphocytes/100 WBC (Bld) 29.1 % 19-41 [facility] MCV (mean corpuscular volume ) determinationOrdered By: Brent Nuñez on 06-16-2024 MCV (RBC) [Entitic vol] 94.6 fL 81-[address] [facility] Mean corpuscular hemoglobin (MCH) determinationOrdered By: Brent Nuñez on 06-16-2024 MCH (RBC) [Entitic mass] 30.9 pg 27.0-32.0 [facility] Mean corpuscular hemoglobin concentration (MCHC) determinationOrdered By: Brent Nuñez on 06-16-2024 MCHC (RBC) [Mass/Vol] 32.7 g/dL 32-36 [facility] Mean platelet volume determi nationOrdered By: Brent Nuñez on 06-16-2024 Platelet mean volume (Bld) [Entitic vol] 9.2 fL 6.2-12.0 [facility] Monocyte percentageOrdered B y: Brent Nuñez on 06-16-2024 Monocytes/100 WBC (Bld) 8.8 % 0-[address] [facility] Neutrophil percentageOrdered By: Brent Nuñez on 06-16-2024 Neutrophils/100 WBC (Bld) 56.1 % 47-70 [facility] Nucleated red blood cell per centageOrdered By: Brent Nuñez on 06-16-2024 Nucleated RBC/100 WBC (Bld) [Ratio] 0 % 0-5 [facility] Pelvis 1 or 2 Viewson 2023 Pelvis 1 or 2 Views Normal [facility] Platelet countOrdered By: Ethel Nuñez on 06-16-2024 Platelets (Bld) [#/Vol] 214 10*3/uL 150-450 [facility] Potassium measurementOrdered By: Brent Nuñez on 06-16-2024 Potassium [Moles/Vol] 4.4 mmol/L 3.5-5.1 [facility] RBC Auto (Bld) [#/Vol]Ordere d By: Brent Nuñez on 06-16-2024 RBC (Bld) [#/Vol] 3.91 10*6/uL Low 4.2-5.4 [facility] Serum anion gap measurementO rdered By: Brent Nuñez on 06-16-2024 Anion gap [Moles/Vol] 5 mmol/L 5-15 [facility] Serum or plasma calcium anthony urement (mass/volume)Ordered By: Brent Nuñez on 06-16-2024 Calcium [Mass/Vol] 9.0 mg/dL 8.5-10.1 [facility] Serum or plasma creatinine m easurement (mass/volume)Ordered By: Brent Nuñez on 06-16-2024 Creatinine [Mass/Vol] 1.32 mg/dL High 0.55-1.02 [facility] Comment on above: The validity of the calculated GFR & GFRAA in patients over 70 years has not been determined. Clinical correlation is essential. Serum or plasma urea nitroge n measurement (mass/volume)Ordered By: Brent Nuñez on 06-16-2024 Urea nitrogen [Mass/Vol] 23 mg/dL High 7-18 [facility] Sodium levelOrdered By: Elliot Nuñez on 06-16-2024 Sodium [Moles/Vol] 138 mmol/L 136-145 [facility] White blood cell (WBC) count Ordered By: Brent Nuñez on 06-16-2024 WBC (Bld) [#/Vol] 9.6 10*3/uL 4.4-11.0 [facility] Cardiac Cath Diagnosticon Cardiac Cath Diagnostic Normal [facility] Cardiology Visit Reporton Cardiology Visit Report Normal [facility] 12 Lead EKGon 2024 12 Lead EKG Normal [facility] Basic Metabolic Profile (BMP )on 2024 BUN/CRE 30.9 RATIO High 04-21 [facility] Comment on above: Order Comment: 1Y Performed By: #### L 501.5425, L500.2500, L100.0100 ####[facility] [address] [place], [address] CA,Total 9.4 mg/dL Normal 8.5-10.1 [facility] Comment on above: Order Comment: 1Y Performed By: #### L 501.5425, L500.2500, L100.0100 ####[facility] [address] [place], [address] Chloride [Moles/Vol] 109 mmol/L High 98-107 [facility] Comment on above: Order Comment: 1Y Performed By: #### L 501.5425, L500.2500, L100.0100 ####[facility] [address] [place], [address] CO2 [Moles/Vol] 29.0 mmol/L Normal 21.0-32.0 [facility] Comment on above: Order Comment: 1Y Performed By: #### L 501.5425, L500.2500, L100.0100 ####[facility] [address] [place], [address] Creatinine [Mass/Vol] 0.74 mg/dL Normal 0.55-1.02 [facility] Comment on above: Order Comment: 1Y Result Comment: The validity of the calculated GFR GFRAA in patients over70 years has not been determined. Clinical correlation isessential. Performed By: #### L 501.5425, L500.2500, L100.0100 ####[facility] [address] [place], [address] ECRCL 44.79 ml/min Normal [facility] Comment on above: Order Comment: 1Y Performed By: #### L 501.5425, L500.2500, L100.0100 ####[facility] [address] [place], [address] EST GFR - AA 95 mL/min Normal >60 [facility] Comment on above: Order Comment: 1Y Result Comment: Afri can [place] GFR Calc Performed By: #### L 501.5425, L500.2500, L100.0100 ####[facility] [address] [place], [address] GAP 2 Low 5-15 [facility] Comment on above: Order Comment: 1Y Performed By: #### L 501.5425, L500.2500, L100.0100 ####[facility] [address] [place], [address] GFR/1.73 sq M.predicted among non-blacks MDRD (S/P/Bld) [Vol rate/Area] 79 mL/min/{1.73_m2} Normal >60 [facility] Comment on above: Order Comment: 1Y Result Comment: Non- GFR Calc Performed By: #### L 501.5425, L500.2500, L100.0100 ####[facility] [address] [place], [address] Glucose [Mass/Vol] 109 mg/dL High 74-106 [facility] Comment on above: Order Comment: 1Y Result Comment: Fast ing Glucose result from 100 to 125 mg/dLsuggests IMPAIRED HOMEOSTASIS per A.D.A. criteria. Performed By: #### L 501.5425, L500.2500, L100.0100 ####[facility] [address] [place], [address] Potassium [Moles/Vol] 3.7 mmol/L Normal 3.5-5.1 [facility] Comment on above: Order Comment: 1Y Performed By: #### L 501.5425, L500.2500, L100.0100 ####[facility] [address] [place], [address] Sodium [Moles/Vol] 140 mmol/L Normal 136-145 [facility] Comment on above: Order Comment: 1Y Performed By: #### L 501.5425, L500.2500, L100.0100 ####[facility] [address] [place], [address] Urea nitrogen [Mass/Vol] 23 mg/dL High 7-18 [facility] Comment on above: Order Comment: 1Y Performed By: #### L 501.5425, L500.2500, L100.0100 ####[facility] [address] [place], [address] CBC W/Diff, Automatedon 11 Absolute Lymph 2.44 X10 3/uL Normal 0.83-4.51 [facility] Comment on above: Performed By: #### L 501.5425, L500.2500, L100.0100 ####[facility] [address] [place], [address] Absolute Neut 3.3 X10 3/uL Normal 2.0-7.7 [facility] Comment on above: Performed By: #### L 501.5425, L500.2500, L100.0100 ####[facility] [address] [place], [address] Basophils/100 WBC (Bld) 0.8 % Normal 0-[address] [facility] Comment on above: Performed By: #### L 501.5425, L500.2500, L100.0100 ####[facility] [address] [place], [address] Eosinophils/100 WBC (Bld) 8.0 % High 0-5 [facility] Comment on above: Performed By: #### L 501.5425, L500.2500, L100.0100 ####[facility] [address] [place], [address] Erythrocyte distribution width (RBC) [Ratio] 13.2 % Normal 11.6-14.6 [facility] Comment on above: Performed By: #### L 501.5425, L500.2500, L100.0100 ####[facility] [address] [place], [address] Hematocrit (Bld) [Volume fraction] 33.5 % Low 37-47 [facility] Comment on above: Performed By: #### L 501.5425, L500.2500, L100.0100 ####[facility] [address] [place], [address] Hemoglobin (Bld) [Mass/Vol] 10.9 g/dL Low 12.0-15.0 [facility] Comment on above: Performed By: #### L 501.5425, L500.2500, L100.0100 ####[facility] [address] [place], [address] IG% 0.400 Normal 0.0-0.9 [facility] Comment on above: Result Comment: IG% - Immature Granulocytes (promyelocytes, myelocytes andmetamyelocytes) > 1% indicates that a LEFT SHIFT is Present. Performed By: #### L 501.5425, L500.2500, L100.0100 ####[facility] [address] [place], [address] Lymphocytes/100 WBC (Bld) 34.2 % Normal 19-41 [facility] Comment on above: Performed By: #### L 501.5425, L500.2500, L100.0100 ####[facility] [address], [address] MCH (RBC) [Entitic mass] 30.6 pg Normal 27.0-32.0 [facility] Comment on above: Performed By: #### L 501.5425, L500.2500, L100.0100 ####[facility] [address] [place], [address] MCHC (RBC) [Mass/Vol] 32.5 g/dL Normal 32-36 [facility] Comment on above: Performed By: #### L 501.5425, L500.2500, L100.0100 ####[facility] [address] [place], [address] MCV (RBC) [Entitic vol] 94.1 fL Normal 81-99 [facility] Comment on above: Performed By: #### L 501.5425, L500.2500, L100.0100 ####[facility] [address] [place], [address] Monocytes/100 WBC (Bld) 10.0 % Normal 0-10 [facility] Comment on above: Performed By: #### L 501.5425, L500.2500, L100.0100 ####[facility] [address] [place], [address] Neutrophils/100 WBC (Bld) 46.6 % Low 47-70 [facility] Comment on above: Performed By: #### L 501.5425, L500.2500, L100.0100 ####[facility] [address], [address] Nucleated RBC (Bld) [#/Vol] 0 10*3/uL Normal 0-5 [facility] Comment on above: Performed By: #### L 501.5425, L500.2500, L100.0100 ####[facility] [address] [place], [address] Platelet mean volume (Bld) [Entitic vol] 9.4 fL Normal 6.2-12.0 [facility] Comment on above: Performed By: #### L 501.5425, L500.2500, L100.0100 ####[facility] [address] [place], [address] Platelets (Bld) [#/Vol] 202 10*3/uL Normal 150-450 [facility] Comment on above: Performed By: #### L 501.5425, L500.2500, L100.0100 ####[facility] [address] [place], [address] RBC (Bld) [#/Vol] 3.56 10*6/uL Low 4.2-5.4 [facility] Comment on above: Performed By: #### L 501.5425, L500.2500, L100.0100 ####[facility] [address] [place], [address] RDW SD 45.9 fl High 35.1-43.9 [facility] Comment on above: Performed By: #### L 501.5425, L500.2500, L100.0100 ####[facility] [address] [place], [address] WBC (Bld) [#/Vol] 7.1 10*3/uL Normal 4.4-11.0 [facility] Comment on above: Performed By: #### L 501.5425, L500.2500, L100.0100 ####[facility] [address] [place], [address] Chest 1 View (Portable)on Chest 1 View (Portable) Normal [facility] D-Dimer Quantitative (DVT/PE )on 2024 D-DIMER QUANT 0.47 FEU/ug/m Normal 0.27-0.49 [facility] Comment on above: Result Comment: NORM AL D-Dimer level (<0.50) indicates no DVT or PE. Performed By: #### L 300.8000 ####[facility] [address] [place], [address] Emergency Department Summary on 2024 Emergency Department Summary Normal [facility] L501.4020on 2024 TROPONIN-I HS 18 pg/mL Normal 3.0-54.0 [facility] Comment on above: Result Comment: Plea se Note: New Test Units and Gender Specific Reference Ranges. For more information see Policy Stat Procedure [place] High Sensitivity Troponin (TNIH) and attachments. Performed By: #### L 501.4020 ####[facility] [address] [place], [address] L501.5425on 2024 TROPONIN-I HS 17 pg/mL Normal 3.0-54.0 [facility] Comment on above: Order Comment: 1Y Result Comment: Plea se Note: New Test Units and Gender Specific Reference Ranges. For more information see Policy Stat Procedure [place] High Sensitivity Troponin (TNIH) and attachments. Performed By: #### L 501.5425, L500.2500, L100.0100 ####[facility] [address] [place], [address] CBC W/Diff, Automatedon Absolute Lymph 1.68 X10 3/uL Normal 0.83-4.51 [facility] Comment on above: Performed By: #### L 100.0100 ####[facility] [address] [place], [address] Absolute Neut 2.6 X10 3/uL Normal 2.0-7.7 [facility] Comment on above: Performed By: #### L 100.0100 ####[facility] [address] [place], [address] Basophils/100 WBC (Bld) 0.9 % Normal 0-[address] [facility] Comment on above: Performed By: #### L 100.0100 ####[facility] [address] [place], [address] Eosinophils/100 WBC (Bld) 7.9 % High 0-5 [facility] Comment on above: Performed By: #### L 100.0100 ####[facility] [address] [place], [address] Erythrocyte distribution width (RBC) [Ratio] 13.2 % Normal 11.6-14.6 [facility] Comment on above: Performed By: #### L 100.0100 ####[facility] [address] [place], [address] Hematocrit (Bld) [Volume fraction] 37.5 % Normal 37-47 [facility] Comment on above: Performed By: #### L 100.0100 ####[facility] [address] [place], [address] Hemoglobin (Bld) [Mass/Vol] 11.9 g/dL Low 12.0-15.0 [facility] Comment on above: Performed By: #### L 100.0100 ####[facility] [address] [place], [address] IG% 0.200 Normal 0.0-0.9 [facility] Comment on above: Result Comment: IG% - Immature Granulocytes (promyelocytes, myelocytes andmetamyelocytes) > 1% indicates that a LEFT SHIFT is Present. Performed By: #### L 100.0100 ####[facility] [address], [address] Lymphocytes/100 WBC (Bld) 31.0 % Normal 19-41 [facility] Comment on above: Performed By: #### L 100.0100 ####[facility] [address] [place], [address] MCH (RBC) [Entitic mass] 29.6 pg Normal 27.0-32.0 [facility] Comment on above: Performed By: #### L 100.0100 ####[facility] [address] [place], [address] MCHC (RBC) [Mass/Vol] 31.7 g/dL Low 32-36 [facility] Comment on above: Performed By: #### L 100.0100 ####[facility] [address] [place], [address] MCV (RBC) [Entitic vol] 93.3 fL Normal 81-99 [facility] Comment on above: Performed By: #### L 100.0100 ####[facility] [address] [place], [address] Monocytes/100 WBC (Bld) 11.3 % High 0-10 [facility] Comment on above: Performed By: #### L 100.0100 ####[facility] [address] [place], [address] Neutrophils/100 WBC (Bld) 48.7 % Normal 47-70 [facility] Comment on above: Performed By: #### L 100.0100 ####[facility] [address] [place], [id number] Nucleated RBC (Bld) [#/Vol] 0 10*3/uL Normal 0-5 [facility] Comment on above: Performed By: #### L 100.0100 ####[facility] [address] [place], [id number] Platelet mean volume (Bld) [Entitic vol] 9.4 fL Normal 6.2-12.0 [facility] Comment on above: Performed By: #### L 100.0100 ####[facility] [address] [place], [id number] Platelets (Bld) [#/Vol] 247 10*3/uL Normal 150-450 [facility] Comment on above: Performed By: #### L 100.0100 ####[facility] [address] [place], [id number] RBC (Bld) [#/Vol] 4.02 10*6/uL Low 4.2-5.4 [facility] Comment on above: Performed By: #### L 100.0100 ####[facility] [address] [place], [id number] RDW SD 45.1 fl High 35.1-43.9 [facility] Comment on above: Performed By: #### L 100.0100 ####[facility] [address] [place], [id number] WBC (Bld) [#/Vol] 5.4 10*3/uL Normal 4.4-11.0 [facility] Comment on above: Performed By: #### L 100.0100 ####[facility] [address] [place], [id number] Gastroenterology Visit Repor ton 05-08-2024 Gastroenterology Visit Report Normal [facility] Dexa Bone Density Studyon Dexa Bone Density Study Normal [facility] Echo Completeon 04-22-2024 Echo Complete Normal [facility] CBC W/Diff, Automatedon 04-02 Absolute Lymph 1.84 X10 3/uL Normal 0.83-4.51 [facility] Comment on above: Order Comment: Order Date: 04/10/24Order Info: 0184-1 - CBCD Performed By: #### L 100.0100, L501.9520, L501.5200, L500.4050 ####[facility] [address] [place], [address] Absolute Neut 4.0 X10 3/uL Normal 2.0-7.7 [facility] Comment on above: Order Comment: Order Date: 04/10/24Order Info: 0184-1 - CBCD Performed By: #### L 100.0100, L501.9520, L501.5200, L500.4050 ####[facility] [address] [place], [address] Basophils/100 WBC (Bld) 0.9 % Normal 0-[address] [facility] Comment on above: Order Comment: Order Date: 04/10/24Order Info: 0184-1 - CBCD Performed By: #### L 100.0100, L501.9520, L501.5200, L500.4050 ####[facility] [address] [place], [address] Eosinophils/100 WBC (Bld) 5.0 % Normal 0-5 [facility] Comment on above: Order Comment: Order Date: 04/10/24Order Info: 018-1 - CBCD Performed By: #### L 100.0100, L501.9520, L501.5200, L500.4050 ####[facility] [address] [place], [address] Erythrocyte distribution width (RBC) [Ratio] 13.0 % Normal 11.6-14.6 [facility] Comment on above: Order Comment: Order Date: 04/10/24Order Info: 0184-1 - CBCD Performed By: #### L 100.0100, L501.9520, L501.5200, L500.4050 ####[facility] [address] [place], [address] Hematocrit (Bld) [Volume fraction] 39.1 % Normal 37-47 [facility] Comment on above: Order Comment: Order Date: 04/10/24Order Info: 018- - CBCD Performed By: #### L 100.0100, L501.9520, L501.5200, L500.4050 ####[facility] [address] [place], [address] Hemoglobin (Bld) [Mass/Vol] 12.0 g/dL Normal 12.0-15.0 [facility] Comment on above: Order Comment: Order Date: 04/10/24Order Info: 018- - CBCD Performed By: #### L 100.0100, L501.9520, L501.5200, L500.4050 ####[facility] [address] [place], [address] IG% 0.400 Normal 0.0-0.9 [facility] Comment on above: Order Comment: Order Date: 04/10/24Order Info: 018- - CBCD Result Comment: IG% - Immature Granulocytes (promyelocytes, myelocytes andmetamyelocytes) > 1% indicates that a LEFT SHIFT is Present. Performed By: #### L 100.0100, L501.9520, L501.5200, L500.4050 ####[facility] [address] [place], [address] Lymphocytes/100 WBC (Bld) 26.2 % Normal 19-41 [facility] Comment on above: Order Comment: Order Date: 04/10/24Order Info: 018- - CBCD Performed By: #### L 100.0100, L501.9520, L501.5200, L500.4050 ####[facility] [address] [place], [address] MCH (RBC) [Entitic mass] 29.8 pg Normal 27.0-32.0 [facility] Comment on above: Order Comment: Order Date: 04/10/24Order Info: 018- - CBCD Performed By: #### L 100.0100, L501.9520, L501.5200, L500.4050 ####[facility] [address] [place], [address] MCHC (RBC) [Mass/Vol] 30.7 g/dL Low 32-36 [facility] Comment on above: Order Comment: Order Date: 04/10/24Order Info: 0184-1 - CBCD Performed By: #### L 100.0100, L501.9520, L501.5200, L500.4050 ####[facility] [address] [place], [address] MCV (RBC) [Entitic vol] 97.0 fL Normal 81-99 [facility] Comment on above: Order Comment: Order Date: 04/10/24Order Info: 018- - CBCD Performed By: #### L 100.0100, L501.9520, L501.5200, L500.4050 ####[facility] [address] [place], [address] Monocytes/100 WBC (Bld) 10.7 % High 0-10 [facility] Comment on above: Order Comment: Order Date: 04/10/24Order Info: 018- - CBCD Performed By: #### L 100.0100, L501.9520, L501.5200, L500.4050 ####[facility] [address] [place], [address] Neutrophils/100 WBC (Bld) 56.8 % Normal 47-70 [facility] Comment on above: Order Comment: Order Date: 04/10/24Order Info: 0184-1 - CBCD Performed By: #### L 100.0100, L501.9520, L501.5200, L500.4050 ####[facility] [address] [place], [address] Nucleated RBC (Bld) [#/Vol] 0 10*3/uL Normal 0-5 [facility] Comment on above: Order Comment: Order Date: 04/10/24Order Info: 0184-1 - CBCD Performed By: #### L 100.0100, L501.9520, L501.5200, L500.4050 ####[facility] [address] [place], [address] Platelet mean volume (Bld) [Entitic vol] 9.2 fL Normal 6.2-12.0 [facility] Comment on above: Order Comment: Order Date: 04/10/24Order Info: 0184-1 - CBCD Performed By: #### L 100.0100, L501.9520, L501.5200, L500.4050 ####[facility] [address] [place], [address] Platelets (Bld) [#/Vol] 310 10*3/uL Normal 150-450 [facility] Comment on above: Order Comment: Order Date: 04/10/24Order Info: 0184-1 - CBCD Performed By: #### L 100.0100, L501.9520, L501.5200, L500.4050 ####[facility] [address] [place], [address] RBC (Bld) [#/Vol] 4.03 10*6/uL Low 4.2-5.4 [facility] Comment on above: Order Comment: Order Date: 04/10/24Order Info: 0184-1 - CBCD Performed By: #### L 100.0100, L501.9520, L501.5200, L500.4050 ####[facility] [address] [place], [address] RDW SD 46.6 fl High 35.1-43.9 [facility] Comment on above: Order Comment: Order Date: 04/10/24Order Info: 0184-1 - CBCD Performed By: #### L 100.0100, L501.9520, L501.5200, L500.4050 ####[facility] [address] [place], [address] WBC (Bld) [#/Vol] 7.0 10*3/uL Normal 4.4-11.0 [facility] Comment on above: Order Comment: Order Date: 04/10/24Order Info: 0184-1 - CBCD Performed By: #### L 100.0100, L501.9520, L501.5200, L500.4050 ####[facility] [address] [place], [address] Comprehensive Metabolic Prof ilon 04-12-2024 Albumin [Mass/Vol] 3.6 g/dL Normal 3.2-5.0 [facility] Comment on above: Order Comment: Order Date: 04/10/24Order Info: 0786-1 - CMPOrder Info: 27380-7 - MGOrder Info: 301-3 - TSH Performed By: #### L 100.0100, L501.9520, L501.5200, L500.4050 ####[facility] [address] [place], [address] Albumin/Globulin [Mass ratio] 1.2 {ratio} Normal 0.9-2.4 [facility] Comment on above: Order Comment: Order Date: 04/10/24Order Info: 0786-1 - CMPOrder Info: 23574-0 - MGOrder Info: 3016-3 - TSH Performed By: #### L 100.0100, L501.9520, L501.5200, L500.4050 ####[facility] [address] [place], [address] ALK P 74 U/L Normal 45-117 [facility] Comment on above: Order Comment: Order Date: 04/10/24Order Info: 07-1 - CMPOrder Info: - MGOrder Info: 3016-3 - TSH Performed By: #### L 100.0100, L501.9520, L501.5200, L500.4050 ####[facility] [address] [place], [address] ALT [Catalytic activity/Vol] 12 U/L Low 13-56 [facility] Comment on above: Order Comment: Order Date: 04/10/24Order Info: 785-1 - CMPOrder Info: [id number] - MGOrder Info: 301-3 - TSH Performed By: #### L 100.0100, L501.9520, L501.5200, L500.4050 ####[facility] [address] [place], [address] AST [Catalytic activity/Vol] 12 U/L Low 15-37 [facility] Comment on above: Order Comment: Order Date: 04/10/24Order Info: 785- - CMPOrder Info: - MGOrder Info: 3 - TSH Performed By: #### L 100.0100, L501.9520, L501.5200, L500.4050 ####[facility] [address] [place], [address] Bilirubin [Mass/Vol] 0.30 mg/dL Normal 0.20-1.00 [facility] Comment on above: Order Comment: Order Date: 04/10/24Order Info: 1 - CMPOrder Info: - MGOrder Info: 3015-3 - TSH Result Comment: For patients on eltrombopag therapy, use of Dimension [place] TBIL is not recommended. Performed By: #### L 100.0100, L501.9520, L501.5200, L500.4050 ####[facility] [address] [place], [address] BUN/CRE 20.0 RATIO Normal 10-20 [facility] Comment on above: Order Comment: Order Date: 04/10/24Order Info: 785-1 - CMPOrder Info: [id number] - MGOrder Info: 301-3 - TSH Performed By: #### L 100.0100, L501.9520, L501.5200, L500.4050 ####[facility] [address] [place], [address] CA,Total 9.2 mg/dL Normal 8.5-10.1 [facility] Comment on above: Order Comment: Order Date: 04/10/24Order Info: 86-1 - CMPOrder Info: - MGOrder Info: 3 - TSH Performed By: #### L 100.0100, L501.9520, L501.5200, L500.4050 ####[facility] [address] [place], [address] Chloride [Moles/Vol] 104 mmol/L Normal 98-107 [facility] Comment on above: Order Comment: Order Date: 04/10/24Order Info: 785-1 - CMPOrder Info: - MGOrder Info: 3 - TSH Performed By: #### L 100.0100, L501.9520, L501.5200, L500.4050 ####[facility] [address] [place], [address] CO2 [Moles/Vol] 30.0 mmol/L Normal 21.0-32.0 [facility] Comment on above: Order Comment: Order Date: 04/10/24Order Info: 1 - CMPOrder Info: MGOrder Info: 3 - TSH Performed By: #### L 100.0100, L501.9520, L501.5200, L500.4050 ####[facility] [address] [place], [address] Creatinine [Mass/Vol] 0.90 mg/dL Normal 0.55-1.02 [facility] Comment on above: Order Comment: Order Date: 04/10/24Order Info: 86-1 - CMPOrder Info: - MGOrder Info: 3 - TSH Result Comment: The validity of the calculated GFR GFRAA in patients over70 years has not been determined. Clinical correlation isessential. Performed By: #### L 100.0100, L501.9520, L501.5200, L500.4050 ####[facility] [address] [place], [address] EST GFR - AA 77 mL/min Normal >60 [facility] Comment on above: Order Comment: Order Date: 04/10/24Order Info: 0786-1 - CMPOrder Info: [id number] - MGOrder Info: 3016-3 - TSH Result Comment: Afri can [place] GFR Calc Performed By: #### L 100.0100, L501.9520, L501.5200, L500.4050 ####[facility] [address] [place], [address] GAP 5 Normal 5-15 [facility] Comment on above: Order Comment: Order Date: 04/10/24Order Info: 07-1 - CMPOrder Info: 77618-0 - MGOrder Info: 3 - TSH Performed By: #### L 100.0100, L501.9520, L501.5200, L500.4050 ####[facility] [address] [place], [address] GFR/1.73 sq M.predicted among non-blacks MDRD (S/P/Bld) [Vol rate/Area] 64 mL/min/{1.73_m2} Normal >60 [facility] Comment on above: Order Comment: Order Date: 04/10/24Order Info: 0786-1 - CMPOrder Info: 49750-0 - MGOrder Info: 3016-3 - TSH Result Comment: Non- GFR Calc Performed By: #### L 100.0100, L501.9520, L501.5200, L500.4050 ####[facility] [address] [place], [address] Globulin (S) [Mass/Vol] 3.0 g/dL Normal 2.2-4.[address] [facility] Comment on above: Order Comment: Order Date: 04/10/24Order Info: 785-1 - CMPOrder Info: - MGOrder Info: 3015-3 - TSH Performed By: #### L 100.0100, L501.9520, L501.5200, L500.4050 ####[facility] [address] [place], [address] Glucose [Mass/Vol] 99 mg/dL Normal 74-106 [facility] Comment on above: Order Comment: Order Date: 04/10/24Order Info: 785-1 - CMPOrder Info: - MGOrder Info: 3 - TSH Performed By: #### L 100.0100, L501.9520, L501.5200, L500.4050 ####[facility] [address] [place], [address] Potassium [Moles/Vol] 3.9 mmol/L Normal 3.5-5.1 [facility] Comment on above: Order Comment: Order Date: 04/10/24Order Info: 785-1 - CMPOrder Info: - MGOrder Info: 3 - TSH Performed By: #### L 100.0100, L501.9520, L501.5200, L500.4050 ####[facility] [address] [place], [address] Sodium [Moles/Vol] 139 mmol/L Normal 136-145 [facility] Comment on above: Order Comment: Order Date: 04/10/24Order Info: 785-1 - CMPOrder Info: - MGOrder Info: 3015-3 - TSH Performed By: #### L 100.0100, L501.9520, L501.5200, L500.4050 ####[facility] [address] [place], [address] T PROT 6.6 g/dL Normal 6.4-8.2 [facility] Comment on above: Order Comment: Order Date: 04/10/24Order Info: 785- - CMPOrder Info: - MGOrder Info: 6-3 - TSH Performed By: #### L 100.0100, L501.9520, L501.5200, L500.4050 ####[facility] [address] [place], [address] Urea nitrogen [Mass/Vol] 18 mg/dL Normal 7-18 [facility] Comment on above: Order Comment: Order Date: 04/10/24Order Info: 785- - CMPOrder Info: - MGOrder Info: 3015-3 - TSH Performed By: #### L 100.0100, L501.9520, L501.5200, L500.4050 ####[facility] [address] [place], [address] Magnesiumon 04-12-2024 Magnesium [Mass/Vol] 2.0 mg/dL Normal 1.6-2.6 [facility] Comment on above: Order Comment: Order Date: 04/10/24Order Info: 785-07 - CMPOrder Info: - MGOrder Info: 6-3 - TSH Performed By: #### L 100.0100, L501.9520, L501.5200, L500.4050 ####[facility] [address] [place], [address] Thyroid Stim Hormone (TSH)on 04-12-2024 TSH 1.180 uIU/mL Normal 0.358-3.740 [facility] Comment on above: Order Comment: Order Date: 04/10/24Order Info: 07- - CMPOrder Info: - MGOrder Info: 6-3 - TSH Performed By: #### L 100.0100, L501.9520, L501.5200, L500.4050 ####[facility] [address] [place], [address] Urine Cultureon 03-24-2024 URC Normal [facility] Comment on above: Performed By: #### M 100.2200 ####[facility] [address] [place], [id number] Inital Evaluation (1) - PTon 02-28-2024 Inital Evaluation (1) - PT Normal [facility] CBC W/Diff, Automatedon 08-0 Absolute Lymph 1.27 X10 3/uL Normal 0.83-4.51 [facility] Comment on above: Order Comment: Order Date: 02/07/24Order Info: 0184-1 - CBCD Performed By: #### L 100.0100 ####[facility] [address] [place], [id number] Absolute Neut 1.8 X10 3/uL Low 2.0-7.7 [facility] Comment on above: Order Comment: Order Date: 02/07/24Order Info: 0184-1 - CBCD Performed By: #### L 100.0100 ####[facility] [address] [place], [id number] Basophils/100 WBC (Bld) 0.8 % Normal 0-[address] [facility] Comment on above: Order Comment: Order Date: 02/07/24Order Info: 0184-1 - CBCD Performed By: #### L 100.0100 ####[facility] [address] [place], [id number] Eosinophils/100 WBC (Bld) 10.9 % High 0-5 [facility] Comment on above: Order Comment: Order Date: 02/07/24Order Info: 0184-1 - CBCD Performed By: #### L 100.0100 ####[facility] [address] [place], [id number] Erythrocyte distribution width (RBC) [Ratio] 14.0 % Normal 11.6-14.6 [facility] Comment on above: Order Comment: Order Date: 02/07/24Order Info: 0184-1 - CBCD Performed By: #### L 100.0100 ####[facility] [address] [place], [address] Hematocrit (Bld) [Volume fraction] 35.3 % Low 37-47 [facility] Comment on above: Order Comment: Order Date: 02/07/24Order Info: 183- - CBCD Performed By: #### L 100.0100 ####[facility] [address] [place], [address] Hemoglobin (Bld) [Mass/Vol] 10.9 g/dL Low 12.0-15.0 [facility] Comment on above: Order Comment: Order Date: 02/07/24Order Info: 183- - CBCD Performed By: #### L 100.0100 ####[facility] [address] [place], [address] IG% 0.300 Normal 0.0-0.9 [facility] Comment on above: Order Comment: Order Date: 02/07/24Order Info: 183- - CBCD Result Comment: IG% - Immature Granulocytes (promyelocytes, myelocytes andmetamyelocytes) > 1% indicates that a LEFT SHIFT is Present. Performed By: #### L 100.0100 ####[facility] [address] [place], [address] Lymphocytes/100 WBC (Bld) 32.2 % Normal 19-41 [facility] Comment on above: Order Comment: Order Date: 02/07/24Order Info: 018- - CBCD Performed By: #### L 100.0100 ####[facility] [address] [place], [address] MCH (RBC) [Entitic mass] 30.8 pg Normal 27.0-32.0 [facility] Comment on above: Order Comment: Order Date: 02/07/24Order Info: 0184-1 - CBCD Performed By: #### L 100.0100 ####[facility] [address] [place], [id number] MCHC (RBC) [Mass/Vol] 30.9 g/dL Low 32-36 [facility] Comment on above: Order Comment: Order Date: 02/07/24Order Info: 0184-1 - CBCD Performed By: #### L 100.0100 ####[facility] [address] [place], [id number] MCV (RBC) [Entitic vol] 99.7 fL High 81-[address] [facility] Comment on above: Order Comment: Order Date: 02/07/24Order Info: 0184-1 - CBCD Performed By: #### L 100.0100 ####[facility] [address] [place], [id number] Monocytes/100 WBC (Bld) 11.2 % High 0-10 [facility] Comment on above: Order Comment: Order Date: 02/07/24Order Info: 0184-1 - CBCD Performed By: #### L 100.0100 ####[facility] [address] [place], [id number] Neutrophils/100 WBC (Bld) 44.6 % Low 47-70 [facility] Comment on above: Order Comment: Order Date: 02/07/24Order Info: 0184-1 - CBCD Performed By: #### L 100.0100 ####[facility] [address] [place], [id number] Nucleated RBC (Bld) [#/Vol] 0 10*3/uL Normal 0-5 [facility] Comment on above: Order Comment: Order Date: 02/07/24Order Info: 0184-1 - CBCD Performed By: #### L 100.0100 ####[facility] [address] [place], [id number] Platelet mean volume (Bld) [Entitic vol] 8.9 fL Normal 6.2-12.0 [facility] Comment on above: Order Comment: Order Date: 02/07/24Order Info: 0184-1 - CBCD Performed By: #### L 100.0100 ####[facility] [address] [place], [id number] Platelets (Bld) [#/Vol] 248 10*3/uL Normal 150-450 [facility] Comment on above: Order Comment: Order Date: 02/07/24Order Info: 0184-1 - CBCD Performed By: #### L 100.0100 ####[facility] [address] [place], [id number] RBC (Bld) [#/Vol] 3.54 10*6/uL Low 4.2-5.4 [facility] Comment on above: Order Comment: Order Date: 02/07/24Order Info: 0184-1 - CBCD Performed By: #### L 100.0100 ####[facility] [address] [place], [id number] RDW SD 51.7 fl High 35.1-43.9 [facility] Comment on above: Order Comment: Order Date: 02/07/24Order Info: 0184-1 - CBCD Performed By: #### L 100.0100 ####[facility] [address] [place], [id number] WBC (Bld) [#/Vol] 3.9 10*3/uL Low 4.4-11.0 [facility] Comment on above: Order Comment: Order Date: 02/07/24Order Info: 0184-1 - CBCD Performed By: #### L 100.0100 ####[facility] [address] [place], [id number] Miscellaneous Lab Procedureo n 01-27-2024 MISC LAB TEST Normal [facility] Comment on above: Order Comment: 31815 3 A1C Result Comment: TEST RESULTS LIMITSHemoglobin A1c 5.3 % 4.8-5.6 Please Note: Prediabetes: 5.7 - 6.4 Diabetes: >6.4 Glycemic control for adults with diabetes: <7.0 _ TESTING PERFORMED AT [facility]. ORIGINAL REPORT ON FILE IN LAB CONTAINS ADDITIONAL TEST SITE INFORMATION. Performed By: #### L 801.1541 ####[facility] [address] [place], [address] Vitamin D 1,25-Dihydroxyon 0 01-22-2024 VIT D 1,25 DIHY 79.3 pg/mL Normal 24.8-81.5 [facility] Comment on above: Result Comment: Perf ormed at: [address] [id number] Director: Marlen Alcazar MD, Phone: [phone] Performed By: #### L 5098.2764 ####[facility] [facility] [address] [place], [address] Basic Metabolic Profile (BMP )on 01-19-2024 BUN/CRE 28.0 RATIO High 10-20 [facility] Comment on above: Performed By: #### L 100.0100, L500.2500 ####[facility] [address] [place], [address] CA,Total 8.2 mg/dL Low 8.5-10.1 [facility] Comment on above: Performed By: #### L 100.0100, L500.2500 ####[facility] [address] [place], [address] Chloride [Moles/Vol] 112 mmol/L High 98-107 [facility] Comment on above: Performed By: #### L 100.0100, L500.2500 ####[facility] [address] [place], [address] CO2 [Moles/Vol] 24.0 mmol/L Normal 21.0-32.0 [facility] Comment on above: Performed By: #### L 100.0100, L500.2500 ####[facility] [address] [place], [address] Creatinine [Mass/Vol] 0.64 mg/dL Normal 0.55-1.02 [facility] Comment on above: Result Comment: The validity of the calculated GFR GFRAA in patients over70 years has not been determined. Clinical correlation isessential. Performed By: #### L 100.0100, L500.2500 ####[facility] [address] [place], [address] ECRCL 40.80 ml/min Normal [facility] Comment on above: Performed By: #### L 100.0100, L500.2500 ####[facility] [address] [place], [address] EST GFR - AA 113 mL/min Normal >60 [facility] Comment on above: Result Comment: Afri can Sammarinese GFR Calc Performed By: #### L 100.0100, L500.2500 ####[facility] [address] [place], [address] GAP 4 Low 5-15 [facility] Comment on above: Performed By: #### L 100.0100, L500.2500 ####[facility] [address] [place], [address] GFR/1.73 sq M.predicted among non-blacks MDRD (S/P/Bld) [Vol rate/Area] 93 mL/min/{1.73_m2} Normal >60 [facility] Comment on above: Result Comment: Non- GFR Calc Performed By: #### L 100.0100, L500.2500 ####[facility] [address] [place], [address] Glucose [Mass/Vol] 91 mg/dL Normal 74-106 [facility] Comment on above: Performed By: #### L 100.0100, L500.2500 ####[facility] [address] [place], [address] Potassium [Moles/Vol] 3.9 mmol/L Normal 3.5-5.1 [facility] Comment on above: Performed By: #### L 100.0100, L500.2500 ####[facility] [address] [place], [address] Sodium [Moles/Vol] 140 mmol/L Normal 136-145 [facility] Comment on above: Performed By: #### L 100.0100, L500.2500 ####[facility] [address] [place], [address] Urea nitrogen [Mass/Vol] 18 mg/dL Normal 7-18 [facility] Comment on above: Performed By: #### L 100.0100, L500.2500 ####[facility] [address] [place], [address] CBC W/Diff, Automatedon 07- Absolute Lymph 1.73 X10 3/uL Normal 0.83-4.51 [facility] Comment on above: Performed By: #### L 100.0100, L500.2500 ####[facility] [address] [place], [address] Absolute Neut 5.2 X10 3/uL Normal 2.0-7.7 [facility] Comment on above: Performed By: #### L 100.0100, L500.2500 ####[facility] [address] [place], [address] Basophils/100 WBC (Bld) 0.6 % Normal 0-[address] [facility] Comment on above: Performed By: #### L 100.0100, L500.2500 ####[facility] [address] [place], [address] Eosinophils/100 WBC (Bld) 4.8 % Normal 0-5 [facility] Comment on above: Performed By: #### L 100.0100, L500.2500 ####[facility] [address] [place], [address] Erythrocyte distribution width (RBC) [Ratio] 15.3 % High 11.6-14.6 [facility] Comment on above: Performed By: #### L 100.0100, L500.2500 ####[facility] [address] [place], [address] Hematocrit (Bld) [Volume fraction] 27.7 % Low 37-47 [facility] Comment on above: Performed By: #### L 100.0100, L500.2500 ####[facility] [address] [place], [address] Hemoglobin (Bld) [Mass/Vol] 9.2 g/dL Low 12.0-15.0 [facility] Comment on above: Performed By: #### L 100.0100, L500.2500 ####[facility] [address] [place], [address] IG% 0.400 Normal 0.0-0.9 [facility] Comment on above: Result Comment: IG% - Immature Granulocytes (promyelocytes, myelocytes andmetamyelocytes) > 1% indicates that a LEFT SHIFT is Present. Performed By: #### L 100.0100, L500.2500 ####[facility] [address] [place], [address] Lymphocytes/100 WBC (Bld) 21.4 % Normal 19-41 [facility] Comment on above: Performed By: #### L 100.0100, L500.2500 ####[facility] [address] [place], [address] MCH (RBC) [Entitic mass] 31.2 pg Normal 27.0-32.0 [facility] Comment on above: Performed By: #### L 100.0100, L500.2500 ####[facility] [address] [place], [address] MCHC (RBC) [Mass/Vol] 33.2 g/dL Normal 32-36 [facility] Comment on above: Performed By: #### L 100.0100, L500.2500 ####[facility] [address] [place], [address] MCV (RBC) [Entitic vol] 93.9 fL Normal 81-99 [facility] Comment on above: Performed By: #### L 100.0100, L500.2500 ####[facility] [address] [place], [address] Monocytes/100 WBC (Bld) 8.3 % Normal 0-10 [facility] Comment on above: Performed By: #### L 100.0100, L500.2500 ####[facility] [address] [place], [address] Neutrophils/100 WBC (Bld) 64.5 % Normal 47-70 [facility] Comment on above: Performed By: #### L 100.0100, L500.2500 ####[facility] [address] [place], [address] Nucleated RBC (Bld) [#/Vol] 0 10*3/uL Normal 0-5 [facility] Comment on above: Performed By: #### L 100.0100, L500.2500 ####[facility] [address] [place], [address] Platelet mean volume (Bld) [Entitic vol] 9.4 fL Normal 6.2-12.0 [facility] Comment on above: Performed By: #### L 100.0100, L500.2500 ####[facility] [address] [place], [address] Platelets (Bld) [#/Vol] 137 10*3/uL Low 150-450 [facility] Comment on above: Performed By: #### L 100.0100, L500.2500 ####[facility] [address] [place], [address] RBC (Bld) [#/Vol] 2.95 10*6/uL Low 4.2-5.4 [facility] Comment on above: Performed By: #### L 100.0100, L500.2500 ####[facility] [address] [place], [address] RDW SD 52.5 fl High 35.1-43.9 [facility] Comment on above: Performed By: #### L 100.0100, L500.2500 ####[facility] [address] [place], [address] WBC (Bld) [#/Vol] 8.1 10*3/uL Normal 4.4-11.0 [facility] Comment on above: Performed By: #### L 100.0100, L500.2500 ####[facility] [address] [place], [address] Discharge Instructionon 12-31 Discharge Instruction Normal [facility] HH, Hemoglobin AND Hematocri ton 01-19-2024 Hematocrit (Bld) [Volume fraction] 29.0 % Low 37-47 [facility] Comment on above: Performed By: #### L 100.0600 ####[facility] [address] [place], [address] Hemoglobin (Bld) [Mass/Vol] 9.4 g/dL Low 12.0-15.0 [facility] Comment on above: Performed By: #### L 100.0600 ####[facility] [address] [place], [address] MR/PN.GIon 01-19-2024 MR/PN.GI Normal [facility] MR/UPPPBEUG7nz 01-19-2024 MR/POSTOPAN2 Normal [facility] 12 Lead EKGon 01-18-2024 12 Lead EKG Normal [facility] BRCon 01-18-2024 RC Normal [facility] Comment on above: Result Comment: [id number] ON RC TRANSFUSED 01/18/24 [id number] ON RC TRANSFUSED 01/18/24 1707 Performed By: #### B RC ####[facility] [address] [place], [address] Basic Metabolic Profile (BMP )on 01-18-2024 BUN/CRE 45.5 RATIO High 10-20 [facility] Comment on above: Performed By: #### L 500.2500, L500.3400, L300.4310, L503.6005, M100.7900, L100.0100, L300.3900, BTS ####[facility] [address] [place], [address] CA,Total 8.3 mg/dL Low 8.5-10.1 [facility] Comment on above: Performed By: #### L 500.2500, L500.3400, L300.4310, L503.6005, M100.7900, L100.0100, L300.3900, BTS ####[facility] [address] [place], [address] Chloride [Moles/Vol] 104 mmol/L Normal 98-107 [facility] Comment on above: Performed By: #### L 500.2500, L500.3400, L300.4310, L503.6005, M100.7900, L100.0100, L300.3900, BTS ####[facility] [address] [place], [address] CO2 [Moles/Vol] 23.0 mmol/L Normal 21.0-32.0 [facility] Comment on above: Performed By: #### L 500.2500, L500.3400, L300.4310, L503.6005, M100.7900, L100.0100, L300.3900, BTS ####[facility] [address] [place], [address] Creatinine [Mass/Vol] 1.21 mg/dL High 0.55-1.02 [facility] Comment on above: Result Comment: The validity of the calculated GFR GFRAA in patients over70 years has not been determined. Clinical correlation isessential. Performed By: #### L 500.2500, L500.3400, L300.4310, L503.6005, M100.7900, L100.0100, L300.3900, BTS ####[facility] [address] [place], [address] ECRCL 27.70 ml/min Normal [facility] Comment on above: Performed By: #### L 500.2500, L500.3400, L300.4310, L503.6005, M100.7900, L100.0100, L300.3900, BTS ####[facility] [address] [place], [address] EST GFR - AA 55 mL/min Low >60 [facility] Comment on above: Result Comment: Afri can Sammarinese GFR Calc Performed By: #### L 500.2500, L500.3400, L300.4310, L503.6005, M100.7900, L100.0100, L300.3900, BTS ####[facility] [address] [place], [address] GAP 12 Normal 5-15 [facility] Comment on above: Performed By: #### L 500.2500, L500.3400, L300.4310, L503.6005, M100.7900, L100.0100, L300.3900, BTS ####[facility] [address] [place], [address] GFR/1.73 sq M.predicted among non-blacks MDRD (S/P/Bld) [Vol rate/Area] 45 mL/min/{1.73_m2} Low >60 [facility] Comment on above: Result Comment: Non- GFR Calc Performed By: #### L 500.2500, L500.3400, L300.4310, L503.6005, M100.7900, L100.0100, L300.3900, BTS ####[facility] [address] [place], [address] Glucose [Mass/Vol] 221 mg/dL High 74-106 [facility] Comment on above: Result Comment: Gluc ose result greater than or equal to 200 mg/dLsuggests DIABETES MELLITUS per A.D.A. criteria. Performed By: #### L 500.2500, L500.3400, L300.4310, L503.6005, M100.7900, L100.0100, L300.3900, BTS ####[facility] [address] [place], [address] Potassium [Moles/Vol] 3.6 mmol/L Normal 3.5-5.1 [facility] Comment on above: Performed By: #### L 500.2500, L500.3400, L300.4310, L503.6005, M100.7900, L100.0100, L300.3900, BTS ####[facility] [address] [place], [address] Sodium [Moles/Vol] 139 mmol/L Normal 136-145 [facility] Comment on above: Performed By: #### L 500.2500, L500.3400, L300.4310, L503.6005, M100.7900, L100.0100, L300.3900, BTS ####[facility] [address] [place], [address] Urea nitrogen [Mass/Vol] 55 mg/dL High 7-18 [facility] Comment on above: Performed By: #### L 500.2500, L500.3400, L300.4310, L503.6005, M100.7900, L100.0100, L300.3900, BTS ####[facility] [address] [place], [address] CBC W/Diff, Automatedon 12-31-2023 Absolute Lymph 1.95 X10 3/uL Normal 0.83-4.51 [facility] Comment on above: Performed By: #### L 100.0100 ####[facility] [address] [place], [address] Absolute Neut 4.8 X10 3/uL Normal 2.0-7.7 [facility] Comment on above: Performed By: #### L 100.0100 ####[facility] [address] [place], [address] Basophils/100 WBC (Bld) 0.5 % Normal 0-[address] [facility] Comment on above: Performed By: #### L 100.0100 ####[facility] [address] [place], [address] Eosinophils/100 WBC (Bld) 0.5 % Normal 0-5 [facility] Comment on above: Performed By: #### L 100.0100 ####[facility] [address] [place], [address] Erythrocyte distribution width (RBC) [Ratio] 13.5 % Normal 11.6-14.6 [facility] Comment on above: Performed By: #### L 100.0100 ####[facility] [address] [place], [address] Hematocrit (Bld) [Volume fraction] 19.2 % Low 37-47 [facility] Comment on above: Performed By: #### L 100.0100 ####[facility] [address] [place], [address] Hemoglobin (Bld) [Mass/Vol] 6.3 g/dL Low 12.0-15.0 [facility] Comment on above: Performed By: #### L 100.0100 ####[facility] [address] [place], [address] IG% 0.400 Normal 0.0-0.9 [facility] Comment on above: Result Comment: IG% - Immature Granulocytes (promyelocytes, myelocytes andmetamyelocytes) > 1% indicates that a LEFT SHIFT is Present. Performed By: #### L 100.0100 ####[facility] [address] [place], [address] Lymphocytes/100 WBC (Bld) 26.3 % Normal 19-41 [facility] Comment on above: Performed By: #### L 100.0100 ####[facility] [address] [place], [address] MCH (RBC) [Entitic mass] 32.1 pg High 27.0-32.0 [facility] Comment on above: Performed By: #### L 100.0100 ####[facility] [address] [place], [address] MCHC (RBC) [Mass/Vol] 32.8 g/dL Normal 32-36 [facility] Comment on above: Performed By: #### L 100.0100 ####[facility] [address] [place], [address] MCV (RBC) [Entitic vol] 98.0 fL Normal 81-[address] [facility] Comment on above: Performed By: #### L 100.0100 ####[facility] [address] [place], [address] Monocytes/100 WBC (Bld) 8.1 % Normal 0-10 [facility] Comment on above: Performed By: #### L 100.0100 ####[facility] [address] [place], [address] Neutrophils/100 WBC (Bld) 64.2 % Normal 47-70 [facility] Comment on above: Performed By: #### L 100.0100 ####[facility] [address] [place], [address] Nucleated RBC (Bld) [#/Vol] 0 10*3/uL Normal 0-5 [facility] Comment on above: Performed By: #### L 100.0100 ####[facility] [address] [place], [address] Platelet mean volume (Bld) [Entitic vol] 9.2 fL Normal 6.2-12.0 [facility] Comment on above: Performed By: #### L 100.0100 ####[facility] [address] [place], [address] Platelets (Bld) [#/Vol] 156 10*3/uL Normal 150-450 [facility] Comment on above: Performed By: #### L 100.0100 ####[facility] [address] [place], [address] RBC (Bld) [#/Vol] 1.96 10*6/uL Low 4.2-5.4 [facility] Comment on above: Performed By: #### L 100.0100 ####[facility] [address] [place], [address] RDW SD 47.6 fl High 35.1-43.9 [facility] Comment on above: Performed By: #### L 100.0100 ####[facility] [address] [place], [address] WBC (Bld) [#/Vol] 7.4 10*3/uL Normal 4.4-11.0 [facility] Comment on above: Performed By: #### L 100.0100 ####[facility] [address] [place], [address] Absolute Lymph 2.22 X10 3/uL Normal 0.83-4.51 [facility] Comment on above: Performed By: #### L 500.2500, L500.3400, L300.4310, L503.6005, M100.7900, L100.0100, L300.3900, BTS ####[facility] [address] [place], [address] Absolute Neut 8.5 X10 3/uL High 2.0-7.7 [facility] Comment on above: Performed By: #### L 500.2500, L500.3400, L300.4310, L503.6005, M100.7900, L100.0100, L300.3900, BTS ####[facility] [address] [place], [address] Basophils/100 WBC (Bld) 0.6 % Normal 0-[address] [facility] Comment on above: Performed By: #### L 500.2500, L500.3400, L300.4310, L503.6005, M100.7900, L100.0100, L300.3900, BTS ####[facility] [address] [place], [address] Eosinophils/100 WBC (Bld) 1.1 % Normal 0-5 [facility] Comment on above: Performed By: #### L 500.2500, L500.3400, L300.4310, L503.6005, M100.7900, L100.0100, L300.3900, BTS ####[facility] [address] [place], [address] Erythrocyte distribution width (RBC) [Ratio] 13.5 % Normal 11.6-14.6 [facility] Comment on above: Performed By: #### L 500.2500, L500.3400, L300.4310, L503.6005, M100.7900, L100.0100, L300.3900, BTS ####[facility] [address] [place], [place], [phone] Hematocrit (Bld) [Volume fraction] 27.1 % Low 37-47 [facility] Comment on above: Performed By: #### L 500.2500, L500.3400, L300.4310, L503.6005, M100.7900, L100.0100, L300.3900, BTS ####[facility] [address] [place], [place], [phone] Hemoglobin (Bld) [Mass/Vol] 8.6 g/dL Low 12.0-15.0 [facility] Comment on above: Performed By: #### L 500.2500, L500.3400, L300.4310, L503.6005, M100.7900, L100.0100, L300.3900, BTS ####[facility] [address] [place], [address] IG% 0.500 Normal 0.0-0.9 [facility] Comment on above: Result Comment: IG% - Immature Granulocytes (promyelocytes, myelocytes andmetamyelocytes) > 1% indicates that a LEFT SHIFT is Present. Performed By: #### L 500.2500, L500.3400, L300.4310, L503.6005, M100.7900, L100.0100, L300.3900, BTS ####[facility] [address] [place], [address] Lymphocytes/100 WBC (Bld) 18.7 % Low 19-41 [facility] Comment on above: Performed By: #### L 500.2500, L500.3400, L300.4310, L503.6005, M100.7900, L100.0100, L300.3900, BTS ####[facility] [address] [place], [address] MCH (RBC) [Entitic mass] 31.9 pg Normal 27.0-32.0 [facility] Comment on above: Performed By: #### L 500.2500, L500.3400, L300.4310, L503.6005, M100.7900, L100.0100, L300.3900, BTS ####[facility] [address] [place], [address] MCHC (RBC) [Mass/Vol] 31.7 g/dL Low 32-36 [facility] Comment on above: Performed By: #### L 500.2500, L500.3400, L300.4310, L503.6005, M100.7900, L100.0100, L300.3900, BTS ####[facility] [address] [place], [address] MCV (RBC) [Entitic vol] 100.4 fL High 81-[address] [facility] Comment on above: Performed By: #### L 500.2500, L500.3400, L300.4310, L503.6005, M100.7900, L100.0100, L300.3900, BTS ####[facility] [address] [place], [address] Monocytes/100 WBC (Bld) 7.7 % Normal 0-[address] [facility] Comment on above: Performed By: #### L 500.2500, L500.3400, L300.4310, L503.6005, M100.7900, L100.0100, L300.3900, BTS ####[facility] [address] [place], [address] Neutrophils/100 WBC (Bld) 71.4 % High 47-70 [facility] Comment on above: Performed By: #### L 500.2500, L500.3400, L300.4310, L503.6005, M100.7900, L100.0100, L300.3900, BTS ####[facility] [address] [place], [address] Nucleated RBC (Bld) [#/Vol] 0 10*3/uL Normal 0-5 [facility] Comment on above: Performed By: #### L 500.2500, L500.3400, L300.4310, L503.6005, M100.7900, L100.0100, L300.3900, BTS ####[facility] [address] [place], [address] Platelet mean volume (Bld) [Entitic vol] 9.5 fL Normal 6.2-12.0 [facility] Comment on above: Performed By: #### L 500.2500, L500.3400, L300.4310, L503.6005, M100.7900, L100.0100, L300.3900, BTS ####[facility] [address] [place], [address] Platelets (Bld) [#/Vol] 212 10*3/uL Normal 150-450 [facility] Comment on above: Performed By: #### L 500.2500, L500.3400, L300.4310, L503.6005, M100.7900, L100.0100, L300.3900, BTS ####[facility] [address] [place], [address] RBC (Bld) [#/Vol] 2.70 10*6/uL Low 4.2-5.4 [facility] Comment on above: Performed By: #### L 500.2500, L500.3400, L300.4310, L503.6005, M100.7900, L100.0100, L300.3900, BTS ####[facility] [address] [place], [address] RDW SD 49.0 fl High 35.1-43.9 [facility] Comment on above: Performed By: #### L 500.2500, L500.3400, L300.4310, L503.6005, M100.7900, L100.0100, L300.3900, BTS ####[facility] [address] [place], [address] WBC (Bld) [#/Vol] 11.9 10*3/uL High 4.4-11.0 [facility] Comment on above: Performed By: #### L 500.2500, L500.3400, L300.4310, L503.6005, M100.7900, L100.0100, L300.3900, BTS ####[facility] [address] [place], [address] CTA Abd/Pelvis W/WO Contrast on 01-18-2024 CTA Abd/Pelvis W/WO Contrast Normal [facility] Chest 1 View (Portable)on Chest 1 View (Portable) Normal [facility] EGD Reporton 01-18-2024 EGD Report Normal [facility] Emergency Department Summary on 01-18-2024 Emergency Department Summary Normal [facility] Ferritinon 01-18-2024 Ferritin [Mass/Vol] 61 ng/mL Normal 8-252 [facility] Comment on above: Performed By: #### L 503.7750, L503.6030 ####[facility] [address] [place], [address] H AND P Exam - Hospitaliston 01-18-2024 H&P Exam - Hospitalist Normal [facility] H&P Exam - Hospitalist Normal [facility] HH, Hemoglobin AND Hematocri ton 01-18-2024 Hematocrit (Bld) [Volume fraction] 29.2 % Low 37-47 [facility] Comment on above: Order Comment: Comme nts: 1 hour after transfusion complete Performed By: #### L 100.0600 ####[facility] [address] [place], [address] Hemoglobin (Bld) [Mass/Vol] 9.5 g/dL Low 12.0-15.0 [facility] Comment on above: Order Comment: Comme nts: 1 hour after transfusion complete Performed By: #### L 100.0600 ####[facility] [address] [place], [address] Iron+Iron Binding Capacityon 01-18-2024 Iron [Mass/Vol] 99 ug/dL Normal 50-170 [facility] Comment on above: Performed By: #### L 503.6550, L503.6030 ####[facility] [address] [place], [address] IRON SATURATION 39.4 Normal 15.0-55.0 [facility] Comment on above: Performed By: #### L 503.6550, L503.6030 ####[facility] [address] [place], [address] TIBC 251 ug/dL Normal 250-450 [facility] Comment on above: Performed By: #### L 503.6550, L503.6030 ####[facility] [address] [place], [address] Lactic Acidon 01-18-2024 Lactate [Moles/Vol] 0.7 mmol/L Normal 0.4-1.9 [facility] Comment on above: Performed By: #### L 503.6005 ####[facility] [address] [place], [address] Lactate [Moles/Vol] 0.7 mmol/L Normal 0.4-1.9 [facility] Comment on above: Order Comment: Y Performed By: #### L 503.6005 ####[facility] [address] [place], [address] Lactate [Moles/Vol] 6.4 mmol/L Invalid Interpretation Code 0.4-1.9 [facility] Comment on above: Order Comment: Y Result Comment: Crit ical Result(s) Called at: 02:16:24 01/18/2024 by:David Beavers lsparr. Results read back by same. Performed By: #### L 500.2500, L500.3400, L300.4310, L503.6005, M100.7900, L100.0100, L300.3900, BTS ####[facility] [address] [place], [address] Liver Profileon 01-18-2024 Albumin [Mass/Vol] 3.2 g/dL Normal 3.2-5.0 [facility] Comment on above: Performed By: #### L 500.2500, L500.3400, L300.4310, L503.6005, M100.7900, L100.0100, L300.3900, BTS ####[facility] [address] [place], [address] ALK P 45 U/L Normal 45-117 [facility] Comment on above: Performed By: #### L 500.2500, L500.3400, L300.4310, L503.6005, M100.7900, L100.0100, L300.3900, BTS ####[facility] [address] [place], [address] ALT [Catalytic activity/Vol] 12 U/L Low 13-56 [facility] Comment on above: Performed By: #### L 500.2500, L500.3400, L300.4310, L503.6005, M100.7900, L100.0100, L300.3900, BTS ####[facility] [address] [place], [address] AST [Catalytic activity/Vol] 13 U/L Low 15-37 [facility] Comment on above: Performed By: #### L 500.2500, L500.3400, L300.4310, L503.6005, M100.7900, L100.0100, L300.3900, BTS ####[facility] [address] [place], [address] Bilirubin [Mass/Vol] 0.20 mg/dL Normal 0.20-1.00 [facility] Comment on above: Result Comment: For patients on eltrombopag therapy, use of Dimension [place] TBIL is not recommended. Performed By: #### L 500.2500, L500.3400, L300.4310, L503.6005, M100.7900, L100.0100, L300.3900, BTS ####[facility] [address] [place], [address] Bilirubin.direct [Mass/Vol] 0.12 mg/dL Normal 0.00-0.30 [facility] Comment on above: Performed By: #### L 500.2500, L500.3400, L300.4310, L503.6005, M100.7900, L100.0100, L300.3900, BTS ####[facility] [address] [place], [address] Globulin (S) [Mass/Vol] 2.5 g/dL Normal 2.2-4.2 [facility] Comment on above: Performed By: #### L 500.2500, L500.3400, L300.4310, L503.6005, M100.7900, L100.0100, L300.3900, BTS ####[facility] [address] [place], [address] T PROT 5.7 g/dL Low 6.4-8.2 [facility] Comment on above: Performed By: #### L 500.2500, L500.3400, L300.4310, L503.6005, M100.7900, L100.0100, L300.3900, BTS ####[facility] [address] [place], [address] MR/CON.PCM.GIon 01-18-2024 MR/CON.PCM.GI Normal [facility] MR/POSTOP.ANEon 01-18-2024 MR/POSTOP.ANE Normal [facility] Magnesiumon 01-18-2024 Magnesium [Mass/Vol] 1.8 mg/dL Normal 1.6-2.6 [facility] Comment on above: Performed By: #### L 501.5200, L501.2300, L501.9520 ####[facility] [address] [place], [address] Partial Thromboplast Timeon 01-18-2024 aPTT Coag (Bld) [Time] 23.9 s Low 24.1-36.2 [facility] Comment on above: Performed By: #### L 500.2500, L500.3400, L300.4310, L503.6005, M100.7900, L100.0100, L300.3900, BTS ####[facility] [address] [place], [address] Phosphoruson 01-18-2024 Phosphate [Mass/Vol] 3.1 mg/dL Normal 2.5-4.9 [facility] Comment on above: Performed By: #### L 501.5200, L501.2300, L501.9520 ####[facility] [address] [place], [address] Prothrombin Time w/INRon INR Coag (PPP) [Relative time] 1.1 {INR} Normal [facility] Comment on above: Performed By: #### L 500.2500, L500.3400, L300.4310, L503.6005, M100.7900, L100.0100, L300.3900, BTS ####[facility] [address] [place], [address] PT Coag (PPP) [Time] 14.3 s Normal 11.7-14.9 [facility] Comment on above: Performed By: #### L 500.2500, L500.3400, L300.4310, L503.6005, M100.7900, L100.0100, L300.3900, BTS ####[facility] [address] [place], [address] Stool Occult Blood iFOBon STOB Positive Normal [facility] Comment on above: Performed By: #### L 500.2500, L500.3400, L300.4310, L503.6005, M100.7900, L100.0100, L300.3900, BTS ####[facility] [address] [place], [address] Thyroid Stim Hormone (TSH)on 01-18-2024 TSH 1.61 uIU/mL Normal 0.358-3.74 [facility] Comment on above: Performed By: #### L 501.5200, L501.2300, L501.9520 ####[facility] [address] [place], [address] Type AND Screenon 01-18-2024 ABO and Rh group Nom (Bld) Blood group O Rh(D) negative Normal [facility] Comment on above: Order Comment: A Performed By: #### L 500.2500, L500.3400, L300.4310, L503.6005, M100.7900, L100.0100, L300.3900, BTS ####[facility] [address] [place], [address] Urinalysis, Completeon 01-17 BACTERIA 0 SEEN Normal None Seen [facility] Comment on above: Order Comment: ROSINA CTOR TO SPECIFY Performed By: #### L 400.0001 ####[facility] [address] [place], [address] EPI,SQUAMOUS 0 SEEN Normal 5-10 [facility] Comment on above: Order Comment: ROSINA CTOR TO SPECIFY Performed By: #### L 400.0001 ####[facility] [address] [place], [address] Mucus Ql (Urine sed) 0 SEEN Normal [facility] Comment on above: Order Comment: ROSINA CTOR TO SPECIFY Performed By: #### L 400.0001 ####[facility] [address] [place], [address] RBC 0 SEEN Normal 0-5 [facility] Comment on above: Order Comment: ROSINA CTOR TO SPECIFY Performed By: #### L 400.0001 ####[facility] [address] [place], [address] WBC 0 SEEN Normal 0-5 [facility] Comment on above: Order Comment: ROSINA CTOR TO SPECIFY Performed By: #### L 400.0001 ####[facility] [address] [place], [address] EGDon 12-25-2023 Esophagogastroduodenoscop y Table formatting from the original result was not included. Impression Irregular Z-line; performed cold forceps biopsy Performed forceps biopsies in the middle third of the esophagus and lower third of the esophagus Moderate abnormal mucosa in the antrum and prepyloric region, consistent with gastritis Findings Irregular Z-line 36 cm from the incisors; performed cold forceps biopsy Performed multiple forceps biopsies in the middle third of the esophagus and lower third of the esophagus Moderate atrophic mucosa in the antrum and prepyloric region, consistent with gastritis Recommendation Follow up with me in clinic Indication Dysphagia, unspecified type Staff Staff Role No Staff Documented Medications See Anesthesia Record. Preprocedure A history and physical has been performed, and patient medication allergies have been reviewed. The patient's tolerance of previous anesthesia has been reviewed. The risks and benefits of the procedure and the sedation options and risks were discussed with the patient and patient's partner. All questions were answered and informed consent obtained. Details of the Procedure The patient underwent monitored anesthesia care, which was administered by an anesthesia professional. The patient's blood pressure, ECG, ETCO2, heart rate, level of consciousness, oxygen and respirations were monitored throughout the procedure. The scope was introduced through the mouth and advanced to the third part of the duodenum. Retroflexion was performed in the cardia. Prior to the procedure, the patient's H. Pylori status was unknown. The patient experienced no blood loss. The procedure was not difficult. The patient tolerated the procedure well. There were no apparent adverse events. Events Procedure Events Event Event Time ENDO SCOPE IN TIME 12/25/2023 12:00 PM ENDO SCOPE OUT TIME 12/25/2023 12:04 PM Specimens ID Type Source Tests Collected by Time 2 : Tissue STOMACH ANTRUM BIOPSY SURGICAL PATHOLOGY EXAM Shashi Hernandez RN 12/25/2023 1200 3 : Tissue ESOPHAGUS DISTAL BIOPSY SURGICAL PATHOLOGY EXAM Shashi Hernandez RN 12/25/2023 1201 Procedure Location [facility] OR [address] [place] [id number] Referring Provider Juju Hamm DO Procedure Provider Juju Hamm DO [facility] EGD Study observation Narrat nanda 12-25-2023 Table formatting fro m the original result was not included. Impression Irregular Z-line; performed cold forceps biopsy Performed forceps biopsies in the middle third of the esophagus and lower third of the esophagus Moderate abnormal mucosa in the antrum and prepyloric region, consistent with gastritis Findings Irregular Z-line 36 cm from the incisors; performed cold forceps biopsy Performed multiple forceps biopsies in the middle third of the esophagus and lower third of the esophagus Moderate atrophic mucosa in the antrum and prepyloric region, consistent with gastritis Recommendation Follow up with me in clinic Indication Dysphagia, unspecified type Staff Staff Role No Staff Documented Medications See Anesthesia Record. Preprocedure A history and physical has been performed, and patient medication allergies have been reviewed. The patient's tolerance of previous anesthesia has been reviewed. The risks and benefits of the procedure and the sedation options and risks were discussed with the patient and patient's partner. All questions were answered and informed consent obtained. Details of the Procedure The patient underwent monitored anesthesia care, which was administered by an anesthesia professional. The patient's blood pressure, ECG, ETCO2, heart rate, level of consciousness, oxygen and respirations were monitored throughout the procedure. The scope was introduced through the mouth and advanced to the third part of the duodenum. Retroflexion was performed in the cardia. Prior to the procedure, the patient's H. Pylori status was unknown. The patient experienced no blood loss. The procedure was not difficult. The patient tolerated the procedure well. There were no apparent adverse events. Events Procedure Events Event Event Time ENDO SCOPE IN TIME 12/25/2023 12:00 PM ENDO SCOPE OUT TIME 12/25/2023 12:04 PM Specimens ID Type Source Tests Collected by Time 2 : Tissue STOMACH ANTRUM BIOPSY SURGICAL PATHOLOGY EXAM Shashi Hernandez RN 12/25/2023 1200 3 : Tissue ESOPHAGUS DISTAL BIOPSY SURGICAL PATHOLOGY EXAM Shashi Hernandez RN 12/25/2023 1201 Procedure Location [facility] OR [address] [place] [id number] Referring Provider Juju Hamm DO Procedure Provider Juju Hamm DO [facility] Work Phone: [facility] Work Phone: Radiology Study observation (narrative) [facility] Work Phone: Surgical pathology studyon 0 12-25-2023 Surgical pathology study Pathology repor t.total SEE COMMENT Surgical Pathology Case: [id number] Authorizing Provider: Juju Hamm DO Collected: 12/25/2023 1200 Ordering Location: [facility] Received: 12/25/2023 1641 Center [place] Pathologist: Puja Rios MD Specimens: A) - STOMACH ANTRUM BIOPSY B) - ESOPHAGUS DISTAL BIOPSY Path report.final diagnosis SEE COMMENT A. STOMACH ANTRUM BIOPSY: Antral mucosa with no significant diagnostic alteration. No morphologic evidence of Helicobacter pylori-like organisms. B. ESOPHAGUS DISTAL BIOPSY: Squamous mucosa with parakeratosis and reactive change. No intestinal metaplasia or dysplasia identified. Laboratory comment By the signature on this report, the individual or group listed as making the Final Interpretation/Diagnos is certifies that they have reviewed this case. Path report.gross observation SEE COMMENT A: Received in formalin, labeled with the patient's name and hospital number, is a fragment of fatima, soft tissue measuring 0.3 x 0.2 x 0.2 cm. The specimen is submitted in toto in one cassette. [facility] B: Received in formalin, labeled with the patient's name and hospital number, are 2 fragments of fatima, soft tissue aggregating to 0.4 x 0.3 x 0.3 cm. The specimen is submitted in toto in one cassette. [facility] Absolute lymphocyte countOrd ered By: Franc Quezada on 10-19-2023 Lymphocytes Auto (Unsp spec) [#/Vol] 1.33 10*3/uL 0.83-4.51 [facility] Automated lymphocyte count a s percentage of total leukocytesOrdered By: Franc Quezada on 10-19-2023 Lymphocytes/100 WBC Auto (Unsp spec) 24.4 % 19-41 [facility] Basophil percentageOrdered B y: Franc Quezada on 10-19-2023 Basophils/100 WBC (Bld) 0.7 % 0-[address] [facility] Bilirubin [Mass/Vol] 0.30 mg/dL 0.20-1.00 [facility] Comment on above: For patients on eltr ombopag therapy, use of Dimension [place] TBIL is not recommended. Chloride [Moles/Vol] 106 mmol/L 98-107 [facility] Eosinophils/100 WBC (Bld) 7.9 % 0-5 [facility] Glucose [Mass/Vol] 84 mg/dL 74-106 [facility] Hemoglobin (Bld) [Mass/Vol] 12.2 g/dL 12.0-15.0 [facility] Monocytes/100 WBC (Bld) 11.4 % 0-[address] [facility] Neutrophils (Bld) [#/Vol] 3.0 10*3/uL 2.0-7.7 [facility] Neutrophils/100 WBC (Bld) 55.2 % 47-70 [facility] Potassium [Moles/Vol] 4.9 mmol/L 3.5-5.1 [facility] Protein [Mass/Vol] 6.8 g/dL 6.4-8.2 [facility] Sodium [Moles/Vol] 140 mmol/L 136-145 [facility] WBC (Bld) [#/Vol] 5.5 10*3/uL 4.4-11.0 [facility] Determination of erythrocyte mean corpuscular volume (MCV)Ordered By: Franc Quezada on 10-19-2023 MCV (RBC) [Entitic vol] 99.0 fL 81-[address] [facility] Erythrocyte distribution wid th ratioOrdered By: Franc Quezada on 10-19-2023 Erythrocyte distribution width (RBC) [Ratio] 13.2 % 11.6-14.6 [facility] Erythrocyte distribution wid th standard deviationOrdered By: Franc Judi on 10-19-2023 Erythrocyte distribution width (RBC) [Entitic vol] 47.9 fL 35.1-43.9 [facility] Hematocrit Auto (Bld) [Volum e fraction]Ordered By: Franc Quezada on 10-19-2023 Hematocrit (Bld) [Volume fraction] 38.3 % 37-47 [facility] Immature granulocytes/100 WB C Auto (Bld)Ordered By: Franc Quezada on 10-19-2023 Immature granulocytes/100 WBC (Bld) 0.400 % 0.0-0.9 [facility] Comment on above: IG% - Immature Granu locytes (promyelocytes, myelocytes and metamyelocytes) > 1% indicates that a LEFT SHIFT is Present. Iron measurement (mass/mass) Ordered By: Franc Quezada on 10-19-2023 Iron (Unsp spec) [Mass/Mass] 90 ug/dL 50-170 [facility] Laboratory - Chemistry and C hemistry - challengeOrdered By: Franc Quezada on 10-19-2023 Albumin/Globulin [Mass ratio] 1.3 {ratio} 0.9-2.4 [facility] ALP [Catalytic activity/Vol] 56 U/L 45-117 [facility] ALT [Catalytic activity/Vol] 13 U/L 13-56 [facility] CO2 [Moles/Vol] 30.0 mmol/L 21.0-32.0 [facility] Ferritin [Mass/Vol] 71 ng/mL 8-[facility] Globulin (S) [Mass/Vol] 3.0 g/dL 2.2-4.[address] [facility] Urea nitrogen/Creatinine [Mass ratio] 25.6 mg/mg 10-20 [facility] Laboratory - Hematology and Cell countsOrdered By: Franc Quezada on 10-19-2023 MCH (RBC) [Entitic mass] 31.5 pg 27.0-32.0 [facility] MCHC (RBC) [Mass/Vol] 31.9 g/dL 32-36 [facility] Nucleated RBC/100 WBC (Bld) [Ratio] 0 % 0-5 [facility] Platelet mean volume (Bld) [Entitic vol] 9.3 fL 6.2-12.0 [facility] Platelets (Bld) [#/Vol] 259 10*3/uL 150-450 [facility] No Panel InformationOrdered By: Franc Quezada on 10-19-2023 Estimated GFR (MDRD) Amer 86 mL/min >60 [facility] Comment on above: GFR Calc Estimated GFR (MDRD) Non-Af Amer 71 mL/min >60 [facility] Comment on above: Non- GFR Calc Folate 36.30 ng/mL 3.1-55.4 [facility] Total Iron Binding Capacity 301 ug/dL 250-450 [facility] Vitamin D 25-Hydroxy 47.2 ng/mL [facility] Comment on above: Vitamin D 25(OH) Sta tus Range Deficiency <20 ng/mL (50nmol/L) Insufficiency 20 - 30 ng/mL (50 - 75 nmol/L) Sufficiency 30 - 100 ng/mL (75 - 250 nmol/L) Toxicity >100 ng/mL (>250 nmol/L) RBC Auto (Bld) [#/Vol]Ordere d By: Franc Quezada on 10-19-2023 RBC (Bld) [#/Vol] 3.87 10*6/uL 4.2-5.4 [facility] Serum or plasma calcium anthony urement (mass/volume)Ordered By: Franc Quezada on 10-19-2023 Calcium [Mass/Vol] 9.1 mg/dL 8.5-10.1 [facility] Serum or plasma creatinine m easurement (mass/volume)Ordered By: Franc Quezada on 10-19-2023 Creatinine [Mass/Vol] 0.82 mg/dL 0.55-1.02 [facility] Comment on above: The validity of the calculated GFR & GFRAA in patients over 70 years has not been determined. Clinical correlation is essential. Serum or plasma iron saturat ion measurement (mass fraction)Ordered By: Franc Quezada on 10-19-2023 Iron saturation [Mass fraction] 29.9 % 15.0-55.0 [facility] Serum or plasma thyroid stim ulating hormone (TSH) measurement (units/volume)Ordered By: [facility] on 10-19-2023 TSH Qn 1.02 uIU/mL 0.358-3.74 [facility] Serum or plasma urea nitroge n measurement (mass/volume)Ordered By: Franc Quezada on 10-19-2023 Urea nitrogen [Mass/Vol] 21 mg/dL 7-18 [facility] Thin prep Papanicolaou smear with manual screeningOrdered By: Franc Quezada on 10-19-2023 Thin prep Papanicolaou smear with manual screening 3.8 g/dL 3.2-5.0 [facility] Thin prep Papanicolaou smear with manual screening 16 U/L 15-37 [facility] Thin prep Papanicolaou smear with manual screening 4 5-15 [facility] Culture, urineOrdered By: Anuel Bailey on 08-31-2023 Bacteria identified Cx Nom (U) Enterococcus faecalis [facility] Bacteria identified Cx Nom (U) Enterococcus faecalis [facility] Measure post void residualon 08-24-2023 65 ml by ultrasound [facility] Work Phone: [phone] [place] [address] Work Phone: Cystoscopy with Biospy Injec tionon 08-18-2023 Tia Anglin MD MPH 08/18/2023 1:09 PM Cystoscopy with Biospy Injection Date/Time: 08/18/2023 11:36 AM Performed by: Tia Anglin MD MPH Authorized by: Tia Anglin MD MPH [employer] Concentrate present: yes Anesthesia: local anesthesia Procedure Details Cystoscope type: flexible Cystoscopy route: transurethral Cystoscopy location: kletsel dehe wintun bladder Irrigation used: saline Position: dorsal lithotomy Urethra Urethra: normal Vagina Vagina: normal Bladder Bladder: normal Botox Injection Details Indication: overactive bladder Total number of injections: 5 Total number of units: 100 Post-Procedure Details Catheter placed: no Appearance of urine after procedure: clear Outcome: patient tolerated procedure well with no complications Disposition: discharged home in satisfactory condition Additional Details Lot number [id number], expiration 12-26. Sandie Ho [id number] Preoperative Diagnosis: Urinary Urgency Incontinence, Frequency Postoperative Diagnosis: Same Surgeon: Tia Anglin MD [employer] Consultant:none Estimated Blood Loss: Minimal Complications: None Indications for Procedure: This 83 y.o. female presents with the diagnosis /diagnoses listed above. The procedure was described in detail to the patient. The risks, benefits, and alternatives were thoroughly discussed. The patient wished to proceed with the recommended procedure. Informed consent was obtained and is documented in the chart. Time Out: A time-out was completed verifying correct patient, procedure, site, positioning, and implant(s) and/or special equipment prior to beginning this procedure. Procedure and Findings: After informed consent was obtained, the patient was placed under anesthesia and the patient was placed in the dorsal lithotomy position and was prepped and draped in a sterile fashion. A flexible scope was inserted and the entire urethra and bladder were examined. A complete cystoscopy was performed. There were no mucosal lesions noted. Normal bladder epithelium. No stones, lesions, or tumors. Orthotopic ureters. 100 units of Botox were injected into the bladder muscle in 5 sites diluted in 10ml of normal saline . The patient tolerated the procedure well. There were no complications. Routine post-cystoscopy instructions were given. [facility] Work Phone: [facility] Work Phone: POCT UA Automated manually r esultedon 08-18-2023 Appearance (U) Clear Clear [facility] Work Phone: [phone] Glucose Test strip (U) [Mass/Vol] Negative NEGATIVE mg/dl [facility] Work Phone: [phone] Hemoglobin Ql (U) TRACE-Intact Abnormal NEGATIVE [facility]: [phone] Interpretation and review of laboratory results Abnormal [facility] Work Phone: [phone] Leukocyte esterase Test strip Ql (U) Negative NEGATIVE [facility] Work Phone: [phone] Nitrite Ql (U) Negative NEGATIVE [facility] Work Phone: [phone] pH (U) 6.5 [pH] No Reference Range Established [facility] Work Phone: [phone] POC Bilirubin, Urine Negative NEGATIVE [facility] Phone: [phone] POC Color, Urine Yellow Straw, Yellow, Light-Yellow [facility] Work Phone: [phone] POC Ketones, Urine Negative NEGATIVE mg/dl [facility] Work Phone: [phone] POC Protein, Urine Negative NEGATIVE, 30 (1+) mg/dl [facility] Work Phone: [phone] POC Specific [place], Urine 1.025 1.005 - 1.035 [facility] Work Phone: [phone] POC Urobilinogen, Urine 0.2 0.2, 1.0 EU/DL [facility] Work Phone: [phone] [facility] Work Phone: [phone] Absolute lymphocyte countOrd ered By: Mary Candelario on 06-30-2023 Lymphocytes Auto (Unsp spec) [#/Vol] 1.30 10*3/uL 0.83-4.51 [facility] Basophil percentageOrdered B y: Mary Candelario on 06-30-2023 Basophils/100 WBC (Bld) 1.5 % 0-[address] [facility] Eosinophils/100 WBC (Bld) 6.3 % 0-5 [facility] Neutrophils (Bld) [#/Vol] 2.5 10*3/uL 2.0-7.7 [facility] Neutrophils/100 WBC (Bld) 54.8 % 47-70 [facility] WBC (Bld) [#/Vol] 4.6 10*3/uL 4.4-11.0 [facility] Blood erythrocytes count (nu mber/volume)Ordered By: Mary Candelario on 06-30-2023 RBC (Bld) [#/Vol] 4.81 10*6/uL 4.2-5.4 [facility] Blood hemoglobin measurement (mass/volume)Ordered By: Mary Candelario on 06-30-2023 Hemoglobin (Bld) [Mass/Vol] 12.5 g/dL 12.0-15.0 [facility] Blood lymphocytes/100 leukoc ytesOrdered By: Mary Candelario on 06-30-2023 Lymphocytes/100 WBC (Bld) 28.3 % 19-41 [facility] Blood monocytes/100 leukocyt esOrdered By: Mary Candelario on 06-30-2023 Monocytes/100 WBC (Bld) 8.9 % 0-10 [facility] Blood platelet adequacy dete ction by light microscopyOrdered By: Mary Candelario on 06-30-2023 Platelets LM Ql (Bld) ADEQUATE ADEQ [facility] Blood platelet mean volumeOr dered By: Mary Candelario on 06-30-2023 Platelet mean volume (Bld) [Entitic vol] 9.3 fL 6.2-12.0 [facility] Determination of erythrocyte mean corpuscular volume (MCV)Ordered By: Mary Candelario on 06-30-2023 MCV (RBC) [Entitic vol] 89.2 fL 81-99 [facility] Comment on above: Delta: 84.7 on 06/26-0510 Hematocrit Auto (Bld) [Volum e fraction]Ordered By: Mary Candelario on 06-30-2023 Hematocrit (Bld) [Volume fraction] 42.9 % 37-47 [facility] Laboratory - Hematology and Cell countsOrdered By: Mary Candelario on 06-30-2023 Anisocytosis Ql (Bld) RARE [facility] Erythrocyte distribution width (RBC) [Entitic vol] 76.8 fL 35.1-43.9 [facility] Erythrocyte distribution width (RBC) [Ratio] 23.8 % 11.6-14.6 [facility] Immature granulocytes/100 WBC (Bld) 0.200 % 0.0-0.9 [facility] Comment on above: IG% - Immature Granu locytes (promyelocytes, myelocytes and metamyelocytes) > 1% indicates that a LEFT SHIFT is Present. MCH (RBC) [Entitic mass] 26.0 pg 27.0-32.0 [facility] Nucleated RBC/100 WBC (Bld) [Ratio] 0 % 0-5 [facility] MCHC Auto (RBC) [Mass/Vol]Or dered By: Mary Candelario on 06-30-2023 MCHC (RBC) [Mass/Vol] 29.1 g/dL 32-36 [facility] Comment on above: Delta: 31.2 on 06/26-0510 Platelets bldOrdered By: Mary Candelario on 06-30-2023 Platelets (Bld) [#/Vol] 334 10*3/uL 150-450 [facility] RBC morphologyOrdered By: Adrián Candelario on 06-30-2023 RBC morphology finding Nom (Bld) N CHROM NORMAL NORM C&C [facility] Absolute lymphocyte countOrd ered By: Casa Jain on 06-26-2023 Lymphocytes Auto (Unsp spec) [#/Vol] 1.45 10*3/uL 0.83-4.51 [facility] Basophil percentageOrdered B y: Casa Jain on 06-26-2023 Basophils/100 WBC (Bld) 0.5 % 0-[address] [facility] Eosinophils/100 WBC (Bld) 7.6 % 0-5 [facility] Neutrophils (Bld) [#/Vol] 3.4 10*3/uL 2.0-7.7 [facility] Neutrophils/100 WBC (Bld) 53.1 % 47-70 [facility] WBC (Bld) [#/Vol] 6.4 10*3/uL 4.4-11.0 [facility] Blood erythrocytes count (nu mber/volume)Ordered By: Casa Jain on 06-26-2023 RBC (Bld) [#/Vol] 4.17 10*6/uL 4.2-5.4 [facility] Blood hemoglobin measurement (mass/volume)Ordered By: Casa Jain on 06-26-2023 Hemoglobin (Bld) [Mass/Vol] 11.0 g/dL 12.0-15.0 [facility] Blood lymphocytes/100 leukoc ytesOrdered By: Casa Jain on 06-26-2023 Lymphocytes/100 WBC (Bld) 22.8 % 19-41 [facility] Blood monocytes/100 leukocyt esOrdered By: Casa Jain on 06-26-2023 Monocytes/100 WBC (Bld) 15.7 % 0-[address] [facility] Blood platelet mean volumeOr dered By: Casa Jain on 06-26-2023 Platelet mean volume (Bld) [Entitic vol] 8.9 fL 6.2-12.0 [facility] Determination of erythrocyte mean corpuscular volume (MCV)Ordered By: Casa Jain on 06-26-2023 MCV (RBC) [Entitic vol] 84.7 fL 81-[address] [facility] Hematocrit Auto (Bld) [Volum e fraction]Ordered By: Casa Jain on 06-26-2023 Hematocrit (Bld) [Volume fraction] 35.3 % 37-47 [facility] Hypochromatic red blood cell detectionOrdered By: Casa Jain on 06-26-2023 Hypochromia Ql (Bld) 1+ [facility] Laboratory - Hematology and Cell countsOrdered By: Casa Jain on 06-26-2023 Anisocytosis Ql (Bld) 1+ [facility] Erythrocyte distribution width (RBC) [Entitic vol] 77.3 fL 35.1-43.9 [facility] Erythrocyte distribution width (RBC) [Ratio] 25.8 % 11.6-14.6 [facility] Immature granulocytes/100 WBC (Bld) 0.300 % 0.0-0.9 [facility] Comment on above: IG% - Immature Granu locytes (promyelocytes, myelocytes and metamyelocytes) > 1% indicates that a LEFT SHIFT is Present. MCH (RBC) [Entitic mass] 26.4 pg 27.0-32.0 [facility] Nucleated RBC/100 WBC (Bld) [Ratio] 0 % 0-5 [facility] MCHC Auto (RBC) [Mass/Vol]Or dered By: Casa Jain on 06-26-2023 MCHC (RBC) [Mass/Vol] 31.2 g/dL 32-36 [facility] Platelets bldOrdered By: Chemo Jain on 06-26-2023 Platelets (Bld) [#/Vol] 244 10*3/uL 150-450 [facility] Basophil percentageOrdered B y: Casa Jain on 06-25-2023 Chloride [Moles/Vol] 106 mmol/L 98-107 [facility] Glucose [Mass/Vol] 91 mg/dL 74-106 [facility] Potassium [Moles/Vol] 3.8 mmol/L 3.5-5.1 [facility] Sodium [Moles/Vol] 138 mmol/L 136-145 [facility] Blood manual differential co mment interpretation (narrative result)Ordered By: Casa Jain on 06-25-2023 Manual differential comment Víctor (Bld) [Interp] SCANNED [facility] Laboratory - Chemistry and C hemistry - challengeOrdered By: Casa Jain on 06-25-2023 CO2 [Moles/Vol] 31.0 mmol/L 21.0-32.0 [facility] Urea nitrogen/Creatinine [Mass ratio] 16.9 mg/mg 10-20 [facility] Macrocytes detectionOrdered By: Casa Jain on 06-25-2023 Macrocytes Ql (Bld) 1+ [facility] No Panel InformationOrdered By: Casa Jain on 06-25-2023 Estimated Creatinine Clearance Calc 37.15 ml/min [facility] Estimated GFR (MDRD) Amer 112 mL/min >60 [facility] Comment on above: GFR Calc Estimated GFR (MDRD) Non-Af Amer 92 mL/min >60 [facility] Comment on above: Non- GFR Calc Serum or plasma calcium anthony urement (mass/volume)Ordered By: Casa Jain on 06-25-2023 Calcium [Mass/Vol] 8.9 mg/dL 8.5-10.1 [facility] Serum or plasma creatinine m easurement (mass/volume)Ordered By: Casa Jain on 06-25-2023 Creatinine [Mass/Vol] 0.65 mg/dL 0.55-1.02 [facility] Comment on above: The validity of the calculated GFR & GFRAA in patients over 70 years has not been determined. Clinical correlation is essential. Serum or plasma urea nitroge n measurement (mass/volume)Ordered By: Casa Jain on 06-25-2023 Urea nitrogen [Mass/Vol] 11 mg/dL 7-18 [facility] Thin prep Papanicolaou smear with manual screeningOrdered By: Casa Jain on 06-25-2023 Thin prep Papanicolaou smear with manual screening 1+ [facility] Thin prep Papanicolaou smear with manual screening 1 5-15 [facility] Culture, urineOrdered By: Kourtney Jain on 06-23-2023 Bacteria identified Cx Nom (U) GPC Poss Enterococcus sp [facility] Laboratory - Chemistry and C hemistry - challengeOrdered By: Casa Jain on 06-23-2023 Free T4 [Mass/Vol] 1.03 ng/dL 0.76-1.46 [facility] No Panel InformationOrdered By: Casa Jain on 06-23-2023 Free Triiodothyronine (T3) pg/dL 2.4 pg/mL 2.18-3.98 [facility] Basophil percentageOrdered B y: Nilesh Pereira on 06-22-2023 Basophil percentage 3.3 mg/dL 2.5-4.9 [facility] Bilirubin [Mass/Vol] 0.60 mg/dL 0.20-1.00 [facility] Comment on above: For patients on eltr ombopag therapy, use of Dimension [place] TBIL is not recommended. Protein [Mass/Vol] 5.8 g/dL 6.4-8.2 [facility] Erythrocyte sedimentation ra teOrdered By: Ian Lassiter on 06-22-2023 ESR (Bld) [Velocity] 1 mm/h 0-30 [facility] Laboratory - Chemistry and C hemistry - challengeOrdered By: Nilesh Pereira on 06-22-2023 ALP [Catalytic activity/Vol] 44 U/L 45-117 [facility] ALT [Catalytic activity/Vol] 15 U/L 13-56 [facility] Cobalamin (Vitamin B12) [Mass/Vol] 388 pg/mL 211-911 [facility] Globulin (S) [Mass/Vol] 2.4 g/dL 2.2-4.[address] [facility] Magnesium [Mass/Vol] 2.2 mg/dL 1.6-2.6 [facility] No Panel InformationOrdered By: Nilesh Pereira on 06-22-2023 Thyroid Stimulating Hormone (TSH) 5.49 uIU/mL 0.358-3.74 [facility] Serum or plasma C reactive p rotein measurement (mass/volume)Ordered By: Ian Lassiter on 06-22-2023 CRP [Mass/Vol] mg/L 0.0-3.0 [facility] Comment on above: C-Reactive Protein ( CRP) provides useful information for thediagnosis, therapy and monitoring of inflammatory processesand associated diseases. For the evaluation of Relative Riskfor Cardiovascular Disease, a High Sensitivity CRP (HSCRP)should be ordered. Serum or plasma albumin anthony urement (mass/volume)Ordered By: Nilesh Pereira on 06-22-2023 Albumin [Mass/Vol] 3.4 g/dL 3.2-5.0 [facility] Serum or plasma albumin/glob ulin mass ratioOrdered By: Nilesh Pereira on 06-22-2023 Albumin/Globulin [Mass ratio] 1.4 {ratio} 0.9-2.4 [facility] Thin prep Papanicolaou smear with manual screeningOrdered By: Nilesh Pereira on 06-22-2023 Thin prep Papanicolaou smear with manual screening 16 U/L 15-37 [facility] Basophil percentageOrdered B y: Kashif St on 06-21-2023 Basophil percentage 10-25 SEEN /hpf 0-5 [facility] Bilirubin Test strip Ql (U)O rdered By: Kashif St on 06-21-2023 Bilirubin Ql (U) 3 mg/dL Negative [facility] Comment on above: COLOR OF URINE MAY A FFECT DIPSTICK RESULTS. Iron measurement (mass/mass) Ordered By: Nilesh Pereira on 06-21-2023 Iron (Unsp spec) [Mass/Mass] 19 ug/dL 50-170 [facility] Ketones Test strip Ql (U)Ord ered By: Kashif St on 06-21-2023 Ketones Ql (U) Negative Negative [facility] Lower GI hemoglobin IA Ql (S tl)Ordered By: Kashif St on 06-21-2023 Stool Occult Blood (KIM) Positive [facility] Mucus LM Ql (Urine sed)Order ed By: Kashif St on 06-21-2023 Mucus Ql (Urine sed) 0 SEEN /hpf [facility] Nitrite Test strip Ql (U)Ord ered By: Kashif St on 06-21-2023 Nitrite Ql (U) Positive Negative [facility] No Panel InformationOrdered By: Nilesh Pereira on 06-21-2023 D-Dimer Quantitative (PE/DVT) 0.52 FEU/ug/m 0.27-0.49 [facility] Comment on above: D-Dimer ELEVATED (>0 .49): Additional studies and clinicalassessments are indicated to conclude diagnosis of:Deep Vein Thrombosis (DVT) or Pulmonary Embolism (PE)CRITICAL VALUE VERIFIED. CALLED TO SHAY MARIE06/22/23 0024 Boom Palomares.RESULTS READ BACK BY SAME . Total Iron Binding Capacity 282 ug/dL 250-450 [facility] Protein Test strip Ql (U)Ord ered By: Kashif St on 06-21-2023 Protein Ql (U) 30 mg/dl Negative [facility] Serum or plasma folate measu rement (mass/volume)Ordered By: Nilesh Pereira on 06-21-2023 Folate [Mass/Vol] 32.50 ng/mL 3.1-55.4 [facility] Serum or plasma iron saturat ion measurement (mass fraction)Ordered By: Nilesh Pereira on 06-21-2023 Iron saturation [Mass fraction] 6.7 % 15.0-55.0 [facility] Squamous epithelial cells de tection in urine sediment by light microscopyOrdered By: Kashif St on 06-21-2023 Epithelial cells.squamous LM Ql (Urine sed) 0 SEEN /hpf 5-10 [facility] Urine blood detectionOrdered By: Kashif St on 06-21-2023 RBC Ql (U) 25 /ul Negative [facility] RBC Ql (U) 0 SEEN /hpf 0-5 [facility] Urine clarityOrdered By: Lakesha St on 06-21-2023 Clarity (U) Clear Clear [facility] Urine color determinationOrd ered By: Kashif St on 06-21-2023 Color (U) Yellow Yellow [facility] Urine glucose detectionOrder ed By: Kashif St on 06-21-2023 Glucose Ql (U) Normal mg/dl Normal [facility] Urine leukocyte esterase det ection by dipstickOrdered By: Kashif St on 06-21-2023 Leukocyte esterase Test strip Ql (U) 25 /ul Negative [facility] Urine pHOrdered By: Kashif velasquez on 06-21-2023 pH (U) 5.0 [pH] 5.0 - 8.0 [facility] Urine sediment bacteria coun t by microscopy (number/high power field)Ordered By: Kashif St on 06-21-2023 Bacteria LM.HPF (Urine sed) [#/Area] 0 /[HPF] None Seen [facility] Urine specific gravity measu rementOrdered By: Kashif St on 06-21-2023 Specific gravity (U) [Rel density] 1.025 1.002-1.030 [facility] Urobilinogen Auto test strip Ql (U)Ordered By: Kashif St on 06-21-2023 Urobilinogen Ql (U) 8 mg/dl Normal [facility] Absolute lymphocyte countOrd ered By: Sergio Bailey on 05-11-2023 Lymphocytes Auto (Unsp spec) [#/Vol] 1.53 10*3/uL 0.83-4.51 [facility] Basophil percentageOrdered B y: Sergio Bailey on 05-11-2023 Basophils/100 WBC (Bld) 1.1 % 0-[address] [facility] Bilirubin [Mass/Vol] 0.40 mg/dL 0.20-1.00 [facility] Comment on above: For patients on eltr ombopag therapy, use of Dimension [place] TBIL is not recommended. Chloride [Moles/Vol] 101 mmol/L 98-107 [facility] Eosinophils/100 WBC (Bld) 7.6 % 0-5 [facility] Glucose [Mass/Vol] 106 mg/dL 74-106 [facility] Comment on above: Fasting Glucose resu lt from 100 to 125 mg/dL suggests IMPAIRED HOMEOSTASIS per A.D.A. criteria. Neutrophils (Bld) [#/Vol] 3.1 10*3/uL 2.0-7.7 [facility] Neutrophils/100 WBC (Bld) 54.1 % 47-70 [facility] Potassium [Moles/Vol] 4.2 mmol/L 3.5-5.1 [facility] Protein [Mass/Vol] 6.9 g/dL 6.4-8.2 [facility] Sodium [Moles/Vol] 136 mmol/L 136-145 [facility] WBC (Bld) [#/Vol] 5.7 10*3/uL 4.4-11.0 [facility] Blood erythrocytes count (nu mber/volume)Ordered By: Sergio Bailey on 05-11-2023 RBC (Bld) [#/Vol] 4.12 10*6/uL 4.2-5.4 [facility] Blood hemoglobin measurement (mass/volume)Ordered By: Sergio Bailey on 05-11-2023 Hemoglobin (Bld) [Mass/Vol] 12.3 g/dL 12.0-15.0 [facility] Blood lymphocytes/100 leukoc ytesOrdered By: Sergio Bailey on 05-11-2023 Lymphocytes/100 WBC (Bld) 27.1 % 19-41 [facility] Blood monocytes/100 leukocyt esOrdered By: Sergio Bailey on 05-11-2023 Monocytes/100 WBC (Bld) 9.9 % 0-[address] [facility] Blood platelet mean volumeOr dered By: Sergio Bailey on 05-11-2023 Platelet mean volume (Bld) [Entitic vol] 8.9 fL 6.2-12.0 [facility] Determination of erythrocyte mean corpuscular volume (MCV)Ordered By: Sergio Bailey on 05-11-2023 MCV (RBC) [Entitic vol] 98.3 fL 81-[address] [facility] Erythrocyte sedimentation ra teOrdered By: Sergio Bailey on 05-11-2023 ESR (Bld) [Velocity] 5 mm/h 0-30 [facility] Hematocrit Auto (Bld) [Volum e fraction]Ordered By: Sergio Bailey on 05-11-2023 Hematocrit (Bld) [Volume fraction] 40.5 % 37-47 [facility] Laboratory - Chemistry and C hemistry - challengeOrdered By: Sergio Bailey on 05-11-2023 ALP [Catalytic activity/Vol] 58 U/L 45-117 [facility] ALT [Catalytic activity/Vol] 15 U/L 13-56 [facility] CO2 [Moles/Vol] 28.0 mmol/L 21.0-32.0 [facility] Globulin (S) [Mass/Vol] 3.1 g/dL 2.2-4.[address] [facility] Lipase [Catalytic activity/Vol] 32 U/L 13-75 [facility] Comment on above: Please note:LIPASE r evised reference range effective 22. New Lipase methodology. Expected to produce lower values than the previous assay method. NEW Reference Range: 13 - 75 U/L Urea nitrogen/Creatinine [Mass ratio] 21.7 mg/mg 10-20 [facility] Laboratory - Hematology and Cell countsOrdered By: Sergio Bailey on 05-11-2023 Erythrocyte distribution width (RBC) [Entitic vol] 48.7 fL 35.1-43.9 [facility] Erythrocyte distribution width (RBC) [Ratio] 13.3 % 11.6-14.6 [facility] Immature granulocytes/100 WBC (Bld) 0.200 % 0.0-0.9 [facility] Comment on above: IG% - Immature Granu locytes (promyelocytes, myelocytes and metamyelocytes) > 1% indicates that a LEFT SHIFT is Present. MCH (RBC) [Entitic mass] 29.9 pg 27.0-32.0 [facility] Nucleated RBC/100 WBC (Bld) [Ratio] 0 % 0-[address] [facility] [address] ([facility]) [Mass/Vol]Or dered By: Sergio Bailey on 05-11-2023 MCHC (RBC) [Mass/Vol] 30.4 g/dL 32-36 [facility] No Panel InformationOrdered By: Sergio Bailey on 05-11-2023 Estimated GFR (MDRD) Amer 75 mL/min >60 [facility] Comment on above: GFR Calc Estimated GFR (MDRD) Non-Af Amer 62 mL/min >60 [facility] Comment on above: Non- GFR Calc Platelets bldOrdered By: Carissa Bailey on 05-11-2023 Platelets (Bld) [#/Vol] 303 10*3/uL 150-450 [facility] Serum or plasma C reactive p rotein measurement (mass/volume)Ordered By: Sergio Bailey on 05-11-2023 CRP [Mass/Vol] mg/L 0.0-3.0 [facility] Comment on above: C-Reactive Protein ( CRP) provides useful information for thediagnosis, therapy and monitoring of inflammatory processesand associated diseases. For the evaluation of Relative Riskfor Cardiovascular Disease, a High Sensitivity CRP (HSCRP)should be ordered. Serum or plasma albumin anthony urement (mass/volume)Ordered By: Sergio Bailey on 05-11-2023 Albumin [Mass/Vol] 3.8 g/dL 3.2-5.0 [facility] Serum or plasma albumin/glob ulin mass ratioOrdered By: Sergio Bailey on 05-11-2023 Albumin/Globulin [Mass ratio] 1.2 {ratio} 0.9-2.4 [facility] Serum or plasma calcium anthony urement (mass/volume)Ordered By: Sergio Bailey on 05-11-2023 Calcium [Mass/Vol] 9.3 mg/dL 8.5-10.1 [facility] Serum or plasma creatinine m easurement (mass/volume)Ordered By: Sergio Bailey on 05-11-2023 Creatinine [Mass/Vol] 0.92 mg/dL 0.55-1.02 [facility] Comment on above: The validity of the calculated GFR & GFRAA in patients over 70 years has not been determined. Clinical correlation is essential. Serum or plasma urea nitroge n measurement (mass/volume)Ordered By: Sergio Bailey on 05-11-2023 Urea nitrogen [Mass/Vol] 20 mg/dL 7-18 [facility] Thin prep Papanicolaou smear with manual screeningOrdered By: Sergio Bailey on 05-11-2023 Thin prep Papanicolaou smear with manual screening 16 U/L 15-37 [facility] Thin prep Papanicolaou smear with manual screening 7 5-15 [facility] ALLIED HEALTHon 02-17-2023 ALLIED HEALTH HNO ID: [id number] Author: Pat Pacheco RT(R) Service: ? Author Type: Technologist Type: Allied Health Filed: 02/17/2023 11:55 AM Note Text: Radiology Service Progress Note DATE OF SERVICE: February 17, 2023 TIME: 11:54 AM PATIENT IDENTITY VERIFICATION COMPLETED USING TWO (2) STANDARD IDENTIFIERS: Name and Date of confirmed by patient verbally and Name and Date of confirmed by identification band. FALL SCREENING: Has the patient had 2 falls in the last year or 1 fall with injury or currently using an Ambulatory Assistive Device (Walker, Cane, Wheelchair, Crutches, etc.)? Inpatient: Screened on floor PATIENT GENDER DATA: Female. status: : No status: NO. PATIENT RELEVANT IMPLANT DATA REVIEWED: Not Applicable ALLERGIES: Reviewed and unchanged CONTRAST ALLERGY: NO. EXAM: CT -CONTRAST INDUCED NEPHROPATHY RISK FACTORS: Not applicable CREATININE: Creatinine Date Value Ref Range Status 02/16/2023 0.79 0.58 - 0.96 mg/dL Final 02/15/2023 0.79 0.58 - 0.96 mg/dL Final 05/02/2022 1.03 (H) 0.58 - 0.96 mg/dL Final Estimated Glomerular Filtration Rate Date Value Ref Range Status 02/16/2023 75 >=60 mL/min/1.73m? Final Comment: Estimated Glomerular Filtration [...] Range Status 12/11/2019 >60 Final P.O.C.T. RESULTS: POC done: Yes, See Lab Tab February 17, 2023 TREATMENT: N/A PERIPHERAL IV DATA: Inpatient - refer to LDA documentation RADIOLOGY DEPARTMENT: CT; Exam(s) Completed: CTA Abdomen Pelvis SIGNATURE: Pat Pacheco RT(R) PATIENT NAME: Sandie Ho DATE: February 17, 2023 TIME: 11:54 AM Normal [facility] CBC panel Auto (Bld)on 02-17 Erythrocyte distribution width (RBC) [Ratio] 13.0 % Normal 11.5-15.0 [facility] Comment on above: Order Comment: Armin dimas Type: BLOOD SPECIMEN Ordering Facility: [facility] Address: [address] [place] [address] Performed By: #### 5 8410-2 #### [facility] CLIA [id number] [address] [place] [address] OF [facility] Hematocrit (Bld) [Volume fraction] 31.2 % Low 36.0-46.0 [facility] Comment on above: Order Comment: Armin dimas Type: BLOOD SPECIMEN Ordering Facility: [facility] Address: [address] [place] [address] Performed By: #### 5 8410-2 #### [facility] CLIA [id number] [address] STATES OF [facility] Hemoglobin (Bld) [Mass/Vol] 9.9 g/dL Low 11.5-15.5 [facility] Comment on above: Order Comment: Armin dimas Type: BLOOD SPECIMEN Ordering Facility: [facility] Address: [address] [place] [address] Performed By: #### 5 8410-2 #### [facility] CLIA [id number] [address] MCH (RBC) [Entitic mass] 29.5 pg Normal 26.0-34.0 [facility] Comment on above: Order Comment: Armin dimas Type: BLOOD SPECIMEN Ordering Facility: [facility] Address: [address] [address] Performed By: #### 5 8410-2 #### [facility] CLIA [id number] [address] MCHC (RBC) [Mass/Vol] 31.7 g/dL Normal 30.5-36.0 [facility] Comment on above: Order Comment: Speci men Type: BLOOD SPECIMEN Ordering Facility: [facility] Address: [address] [address] Performed By: #### 5 8410-2 #### [facility] CLIA [id number] [address] MCV (RBC) [Entitic vol] 92.9 fL Normal 80.0-100.0 [facility] Comment on above: Order Comment: Speci men Type: BLOOD SPECIMEN Ordering Facility: [facility] Address: [address] [address] Performed By: #### 5 8410-2 #### [facility] CLIA [id number] [address] Nucleated RBC (Bld) [#/Vol] 10*3/uL Normal <0.01 [facility] Comment on above: Order Comment: Speci men Type: BLOOD SPECIMEN Ordering Facility: [facility] Address: [address] [address] Performed By: #### 5 8410-2 #### [facility] CLIA [id number] [address] Platelet mean volume (Bld) [Entitic vol] 8.8 fL Low 9.0-12.7 [facility] Comment on above: Order Comment: Speci men Type: BLOOD SPECIMEN Ordering Facility: [facility] Address: [address] [address] Performed By: #### 5 8410-2 #### [facility] CLIA [id number] [address] [place] Platelets (Bld) [#/Vol] 213 10*3/uL Normal 150-400 [facility] Comment on above: Order Comment: Speci men Type: BLOOD SPECIMEN Ordering Facility: [facility] Address: [address] [place] [address] Performed By: #### 5 8410-2 #### [facility] CLIA [id number] [address] RBC (Bld) [#/Vol] 3.36 10*6/uL Low 3.90-5.20 [facility] Comment on above: Order Comment: Speci men Type: BLOOD SPECIMEN Ordering Facility: [facility] Address: [address] [place] [address] Performed By: #### 5 8410-2 #### [facility] CLIA [id number] [address] WBC (Bld) [#/Vol] 7.67 10*3/uL Normal 3.70-11.00 [facility] Comment on above: Order Comment: Speci men Type: BLOOD SPECIMEN Ordering Facility: [facility] Address: [address] [place] [address] Performed By: #### 5 8410-2 #### [facility] CLIA [id number] [address] CNDSon 02-17-2023 [facility] HNO ID: [id number] Author: Milla Yu MD Service: Hospital Medicine Author Type: Physician Type: Discharge Summary Filed: 02/17/2023 5:28 PM Note Text: DISCHARGE SUMMARY PATIENT NAME: Sandie Ho Code Status: Prior Highest Readmission Risk Score: 14 The 30 day readmissions risk score is derived from an internally validated risk model which evaluates patient level characteristics, utilization history, medication orders and lab results up until the day of discharge. Patients with a score of 40 or above are considered highest risk for readmission. Specific patient level drivers will be listed at the bottom of the summary. Admission Information Admission Information ADMIT DATE: 02/14/2023 DISCHARGE DATE: 02/17/2023 MY DOCTORS AND MEDICAL TEAM: My Main Hospital Doctor: Milla Yu MD Primary Care Provider: Sergio Bailey MD My Medical Team Members: Treatment Team: Attending Provider: Milla Yu MD Primary Service: GEOFF ADAMSON Consulting: Nabeel Coker MD MY CONDITION AT DISCHARGE: Stable REASON I WAS IN THE HOSPITAL: GI bleed SUMMARY OF WHAT HAPPENED WHILE I WAS IN THE HOSPITAL: This is a 82 year old female who presents with a GI bleed. 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 Biopsied. Segmental moderate inflammation was found in the sigmoid colon and in the descending colon secondary to ischemic colitis. Biopsied . CTA completed , no signs of active bleed . Results discussed with patient and family by GI team . Recommendations are to start baby aspirin on discharge and follow up with Dr Obando as outpatient . 1.2 cm left renal lesion seen on images , follow up with PCP as outpatient for further work up. Patient remained hemodynamically stable during hospital stay. Stable for discharge today. OTHER PROBLEMS/DIAGNOSIS: Principal Problem: GI bleed Active Problems: GERD (gastroesophageal reflux disease) Headache, unspecified headache type COPD (chronic obstructive pulmonary disease) (HCC) Hematuria Resolved Problems: * No resolved hospital problems. * Discharge Disposition Discharge Disposition: Home With Self Care Activity When You Leave the Hospital Resume pre-hospital activity Diet Instructions Resume your pre-hospital diet Follow Up Appointments Follow-Up Appointment When: In 1 week Sergio Bailey MD [phone] [place] [address] [facility] [address] PCP Requested Referral Follow-Up Appointment When: In 2 weeks García Obando MD [phone] [facility] [address] [facility] [address] PCP Requested Referral Additional Provider to Provider Information: Treatment Team: Attending Provider: Milla Yu MD Primary Service: GEOFF ADAMSON Consulting: Nabeel Coker MD Transitions of Care Critical Issues: As DC summary LABS AND PROCEDURES PENDING AT DISCHARGE: No pending results. FOLLOW-UP APPOINTMENTS ALREADY SCHEDULED WITH A [facility] PROVIDER: No future appointments. ALLERGIES Allergen Reactions Cymbalta [Duloxetin* Other: See Comments Pt reporting she is not allergic, just a negative side effect. DISCHARGE MEDICATION: Medication List START taking these medications aspirin 81 mg chewable tablet Take 1 tablet by mouth once daily. CHANGE how you take these medications acetaminophen 500 mg tablet Commonly known as: TYLENOL Take 2 tablets by mouth every 8 hours as needed for pain. What changed: when to take this reasons to take this oxyCODONE IR 5 mg immediate release tablet Commonly known as: ROXICODONE Take 1 tablet by mouth every 8 hours as needed for pain for up to 3 days. What changed: when to take this PROTONIX 40 mg tablet Generic drug: pantoprazole What changed: Another medication with the same name was removed. Continue taking this medication, and follow the directions you see here. CONTINUE taking these medications albuterol HFA 90 mcg/actuation inhaler Commonly known as: PROVENTIL HFA, VENTOLIN HFA ascorbic acid (vitamin C) 500 mg tablet Commonly known as: VITAMIN C Take 1 tablet by mouth twice daily with meals. BUTRANS 7.5 mcg/hour transdermal patch Generic drug: buprenorphine CeleXA 10 mg tablet Generic drug: citalopram hydrobromide Cholecalciferol (Vitamin D3) 50 mcg (2,000 unit) Cap Take 1 capsule by mouth once daily. CITRACAL + D ORAL hydrocortisone 2.5 % ointment Apply to affected area on face 2 times daily as needed for 1-2 weeks after PDT ondansetron 4 mg tablet Commonly known as: ZOFRAN Take 0.5-1 tablets by mouth every 8 hours as needed for Nausea/Vomiting. oxybutynin ER 10 mg 24 hr tablet Commonly known as: DITROPAN XL ramipril 2.5 mg capsule Commonly known as: ALTACE TOP (more content not included)... Normal [facility] CTA ABD/PELV WO/W IVCONon CTA ABD/PELV WO/W IVCON * * *Final Repor t* * * DATE OF EXAM: Feb 17 2023 12:00PM [facility] 0467 - CTA ABD/PELV WO/W IVCON / PROCEDURE REASON: GI bleed * * * * Physician Interpretation * * * * CTA of the abdomen, and pelvis History: GI bleed. Comparison: 04/12/18 Technique: Noncontrast, CTA, and portal venous phase images abdomen pelvis with IV contrast from the hemidiaphragms to pubic symphysis. CT imaging was performed after administration of contrast IV 100 ml of Omnipaque 350. CT Radiation dose: Integrated Dose-length product (DLP) for this visit = 600 mGy*cm. CT Dose Reduction Employed: Automated exposure control(AEC) and iterative recon For optimization of anatomic evaluation, multiplanar reconstruction, maximum intensity projections, and advanced 3-D off-line postprocessing were performed on a dedicated stand-alone workstation under the direct supervision of the interpreting physician. RESULT: No convincing blush of contrast to suggest active bleeding. Foci of high density material throughout the colon and within the stomach, likely to reflect nonspecific ingested material. ABDOMEN: Liver: Couple subcentimeter hypodensities, too small to characterize, one of which is unchanged Biliary: No bile duct dilation. Gallbladder is unremarkable. Spleen: No mass. No splenomegaly. Pancreas: No mass or duct dilation. Adrenals: No mass. Kidneys: Subcentimeter lesions that are too small to characterize but likely benign. Additional cysts. Areas of scarring left kidney. 1.2 cm left renal lesion, which appears may be enhancing axial image 35 on the portal venous phase images, although unclear GI tract: Wall thickening from the distal transverse through distal descending colon Normal appendix No dilated bowel Lymph nodes: No abdominal or pelvic lymphadenopathy. Mesentery/Peritoneum: No ascites or mass. Vasculature: The celiac axis and SMA are patent. Focal dilation SMA to 6 mm in the midabdomen. The portal vein and branches, splenic vein, SMV, and hepatic veins are patent. Pelvis: Assessment degraded by streak artifact No mass, ascites or fluid collection. Bones/Soft Tissues: Bilateral hip arthroplasty with streak artifact Osteopenia Degenerative changes Stable moderate L3, severe T12, moderate T11 compression deformities [id number] superior endplate L1 compression deformity, which may be grossly similar to prior lumbar x-rays from 05/04/2022 Visualized lung bases: Trace left pleural fluid IMPRESSION: No convincing blush of contrast to suggest active bleeding. Colitis distal transverse through distal descending colon. Consider infectious, inflammatory, ischemic etiology Indeterminate 1.2 cm left renal lesion. This could be further characterized with MRI [place] Taper: LEE Transcribe Date/Time: Feb 17 2023 12:59P Dictated by : TAM CALLAWAY MD This examination was interpreted and the report reviewed and electronically signed by: TAM CALLAWAY MD on Feb 17 2023 1:37PM EST [id number] Normal [facility] ECG COMPLETEon 02-17-2023 ECG COMPLETE Ventricular Rate : 8 7 BPM Atrial Rate : 87 BPM P-R Interval : 184 ms QRS Duration : 84 ms Q-T Interval : 408 ms QTC Calculation(Bazett) : 490 ms Calculated P [place] : 50 degrees Calculated R [place] : 29 degrees Calculated T [place] : 74 degrees SINUS RHYTHM WITH PREMATURE ATRIAL COMPLEXES MINIMAL VOLTAGE CRITERIA FOR LVH, MAY BE NORMAL VARIANT ( Sokolow-Jacob ) NONSPECIFIC ST AND T WAVE ABNORMALITY PROLONGED QT ABNORMAL ECG NO PREVIOUS ECGS AVAILABLE Confirmed by MD GUERRERO VINAYAK ([id number]) on 02/19/2023 5:01:03 PM NAME : SANDIE HO PID : [id number] : 1940 Gender : Female Race : ORD : [id number] Procedure Date : Feb 17 2023 12:18:18 Edit Date : Feb 19 2023 17:01:08 Diagnosis: SINUS RHYTHM WITH PREMATURE ATRIAL COMPLEXES MINIMAL VOLTAGE CRITERIA FOR LVH, MAY BE NORMAL VARIANT ( Sokolow-Jacob ) NONSPECIFIC ST AND T WAVE ABNORMALITY PROLONGED QT ABNORMAL ECG NO PREVIOUS ECGS AVAILABLE Confirmed by MD GUERRERO VINAYAK ([id number]) on 02/19/2023 5:01:03 PM Test Reason : Chest Pain Location : 183 : TCU 3223 Overread By : MD GUERRERO VINAYAK Edited By : MD GUERRERO VINAYAK Referred By : HAILEE DE LEON Acquired by : DAVID LAUREANO Normal [facility] HIGH SENSITIVITY TROPONIN To n 02-17-2023 Troponin T.cardiac High sensitivity method [Mass/Vol] 17 ng/L High <12 [facility] Comment on above: Order Comment: Speci men Type: BLOOD SPECIMEN Ordering Facility: [facility] Address: [address] [place] [address] [place] [address] Result Comment: When assessing risk for acute coronary syndromes: In patients undergoing blood draw greater than or equal to 2 hours from symptom onset, with history of very low to moderate risk and non-ischemic ECG, an initial hs-Troponin T less than 12 ng/L AND a 1 hour delta hs-Troponin T less than 3 ng/L should be considered very low risk for 30 day MACE. Performed By: #### H STNT #### [facility] CLIA [id number] [address] [id number] [facility] Troponin T.cardiac High sensitivity method [Mass/Vol] 18 ng/L High <12 [facility] Comment on above: Order Comment: Speci men Type: BLOOD SPECIMEN Ordering Facility: [facility] Address: [facility] [place] [address] Result Comment: When assessing risk for acute coronary syndromes: In patients undergoing blood draw greater than or equal to 2 hours from symptom onset, with history of very low to moderate risk and non-ischemic ECG, an initial hs-Troponin T less than 12 ng/L AND a 1 hour delta hs-Troponin T less than 3 ng/L should be considered very low risk for 30 day MACE. Performed By: #### H STNT #### [facility] CLIA [id number] [address] [id number] [place] NURSING PROGon 02-17-2023 NURSING PROG HNO ID: [id number] Author: Vandana Armando RN Service: Nursing Author Type: Registered Nurse Type: Nursing Progress Note Filed: 02/17/2023 6:32 PM Note Text: Patient DC home via personal transport at 1825. Personal belongings returned. DC instructions given and explained to patient and daughter. They verbalized understanding. Medications sent to pharmacy of choice. PIV removed with no issues. Normal [facility] ANES POSTPROC EVALon 023 ANES POSTPROC EVAL HNO ID: [id number] Author: Cuca Yung MD Service: Anesthesiology Author Type: Anesthesiologist Type: Anesthesia Postprocedure Evaluation Filed: 02/16/2023 2:39 PM Note Text: POST ANESTHESIA EVALUATION NOTE : 1940 Procedure Summary Date: 02/16/23 Room / Location: [facility] Anesthesia Start: 1119 Anesthesia Stop: 1221 Procedures: COLONOSCOPY DIAGNOSTIC EGD DIAGNOSTIC Diagnosis: (Hematochezia) (Acute post hemorrhagic anemia) Scheduled Providers: García Obando MD Responsible Provider: Cuca Yung MD Anesthesia Type: MAC ASA Status: 3 Anesthesia Type: MAC Last Vitals Vitals Value Taken Time BP 116/57 02/16/23 1250 Temp 36.2 ?C (97.2 ?F) 02/16/23 1223 Pulse 67 02/16/23 1250 Resp 13 02/16/23 1250 SpO2 100 % 02/16/23 1304 Post Anesthesia Patient Status Patient Evaluation: PACU. PACU/ICU Patient Condition: stable. Anticipated Disposition: inpatient floor planned admission. Neurological Status: aware and responsive. Pulmonary Status: breathing comfortably on room air Airway Control: returned to baseline unsupported. Cardiovascular Status: stable. Pain Management: clinically adequate Postoperative Hydration: acceptable. Intraoperative Events: no significant anesthesia events Post Operative Nausea/Vomiting Status: no significant post operative nausea or vomiting Recommendation: further care per PACU/ICU/floor team. Anesthesia Observations No Documentation SIGNATURE: Cuca Yung MD PATIENT NAME: Sandie Ho DATE: February 16, 2023 TIME: 2:39 PM CSN: [id number] [facility] ANES PRE-OPon 02-16-2023 ANES PRE-OP HNO ID: [id number] Author: Cuca Yung MD Service: Anesthesiology Author Type: Anesthesiologist Type: Anesthesia Preprocedure Evaluation Filed: 02/16/2023 10:53 AM Note Text: ANESTHESIOLOGY DAY OF SURGERY NOTE : 1940 Procedure Information Date/Time: 02/16/23 1145 Scheduled providers: García Obando MD Procedures: COLONOSCOPY DIAGNOSTIC EGD DIAGNOSTIC Location: [facility] Estimated body mass index is 19.14 kg/m? as calculated from the following: Height as of this encounter: 165.1 cm (5' 5). Weight as of this encounter: 52.2 kg (115 lb). 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 Tracheostomy tube not present Mallampati: III. TM distance: >3 FB. Neck ROM: full ROM without neurological symptoms. Mouth opening: adequate. Short neck: no. Thick neck: no DENTAL Dental findings: teeth intact. II - ANESTHESIA PLAN ASA Score: 3 Anesthetic Plan: MAC The patient is not a current smoker. NPO Status: adequate Beta Oliver Monitoring Plan Post Procedure Analgesic Plan Postoperative analgesic plan: multimodal analgesia. Informed Consent Anesthetic risks, benefits, alternatives, personnel and consent discussed: yes. Patient / Responsible Republican agrees to proceed: yes Patient / Surrogate agrees to blood products: blood products not planned Potential Anesthesia issues that may suggest increased risk of complications or contraindication to planned procedure: none. Vitals Value Taken Time BP 125/75 02/16/23 1019 Pulse 78 02/16/23 1019 Resp Temp 36.6 ?C (97.9 ?F) 02/16/23 1019 SpO2 92 % 02/16/23 1019 Facility-Administered Medications as of 02/16/2023 Medication Dose Route Frequency - lactated ringers iv infusion 5-30 mL/hr INTRAVENOUS CONTINUOUS - [Held on Transfer] acetaminophen 650 mg tab(s) (TYLENOL) 650 mg ORAL q 4 H PRN - [Held on Transfer] aluminum-magnesium hydroxide-simethicone 200-200-20 mg/5 mL 30 mL 30 mL ORAL q 6 H PRN - [Held on Transfer] guaiFENesin 600 mg ER tab(s) (MUCINEX) 600 mg ORAL q 12 H PRN - [Held on Transfer] melatonin 3 mg tab(s) 3 mg ORAL AT BEDTIME PRN - [Held on Transfer] ondansetron (PF) 4 mg injection (ZOFRAN) 4 mg INTRAVENOUS q 6 H PRN - [Held on Transfer] polyethylene glycol 3350 17 g packet 17 g ORAL DAILY PRN - [Held on Transfer] docusate sodium 100 mg cap(s) (COLACE) 100 mg ORAL BID PRN - [Held on Transfer] polyvinyl alcohol-povidone 1.4-0.6 % 1 Drop (REFRESH) 1 Drop BOTH EYES PRN - [Held on Transfer] saliva substitute combo no.9 15 mL (BIOTENE mouthwash) 15 mL MUCOUS MEMBRANE (TOPICAL MOUTH AND THROAT) TID PRN - [Held on Transfer] sodium chloride 0.65 % 2 [place] 2 [place] EACH NOSTRIL PRN - [Held on Transfer] prochlorperazine 10 mg injection (COMPAZINE) 10 mg INTRAVENOUS q 6 H PRN - [Held on Transfer] pantoprazole 40 mg injection (PROTONIX) 40 mg INTRAVENOUS BID AC (0600/1600) - [Held on Transfer] metoprolol succinate ER 50 mg tab(s) (TOPROL XL) 50 mg ORAL DAILY - [Held on Transfer] buprenorphine transdermal patch 7.5 mcg/hr (BUTRANS) 1 Patch TRANSDERMAL q SUN - [Held on Transfer] NaCl 0.9% iv flush bag 20 mL INTRAVENOUS PRN - [Held on Transfer] citalopram 10 mg tab(s) (CeleXA) 10 mg ORAL DAILY - [Held on Transfer] oxyCODONE IR 5 mg tab(s) (ROXICODONE) 5 mg ORAL q 6 H PRN - [Held on Transfer] trospium 20 mg tab(s) (SANCTURA) 20 mg ORAL BID AC - [COMPLETED] diphenhydrAMINE 25 mg injection (BENADRYL) 25 mg INTRAVENOUS ONCE - [COMPLETED] prochlorperazine 10 mg injection (COMPAZINE) 10 mg INTRAVENOUS ONCE - [Held on Transfer] venlafaxine ER 37.5 mg cap(s) (EFFEXOR XR) 37.5 mg ORAL AT BEDTIME - [COMPLETED] magnesium sulfate 1 g in D5W 100 mL 1 g INTRAVENOUS ONCE - [COMPLETED] diphenhydrAMINE 25 mg injection (BENADRYL) 25 mg INTRAVENOUS ONCE - [COMPLETED] prochlorperazine 10 mg injection (COMPAZINE) 10 mg INTRAVENOUS ONCE - [COMPLETED] polyethylene glycol 3350 238 g oral powder 238 g ORAL ONCE - [COMPLETED] keTORolac 15 mg injection (Toradol) 15 mg INTRAVENOUS ONCE - [COMPLETED] diphenhydrAMINE 25 mg injection (BENADRYL) 25 mg INTRAVENOUS ONCE Outpatient Medications as of 02/16/2023 Medication Sig - ondansetron (ZOFRAN) 4 mg tablet Take 0.5-1 tablets by mouth every 8 hours as needed for Nausea/Vomiting. - Aspirin-Acetaminophen- Ca (more content not included)... Normal [facility] Basic metabolic 2000 panelon 02-16-2023 Anion gap [Moles/Vol] 12 mmol/L Normal 9-18 [facility] Comment on above: Order Comment: Speci men Type: BLOOD SPECIMEN Ordering Facility: [facility] Address: [address] [place] [address] Performed By: #### 2 4321-2 #### [facility] CLIA [id number] [address] [place] [address] [place] Calcium [Mass/Vol] 9.5 mg/dL Normal 8.5-10.2 [facility] Comment on above: Order Comment: Speci men Type: BLOOD SPECIMEN Ordering Facility: [facility] Address: [address] [place] [address] Performed By: #### 2 4321-2 #### [facility] CLIA [id number] [address] [place] Chloride [Moles/Vol] 104 mmol/L Normal 97-105 [facility] Comment on above: Order Comment: Speci men Type: BLOOD SPECIMEN Ordering Facility: [facility] Address: [address] [place] [address] Performed By: #### 2 4321-2 #### [facility] CLIA [id number] [address] [place] CO2 [Moles/Vol] 22 mmol/L Normal 22-30 [facility] Comment on above: Order Comment: Speci men Type: BLOOD SPECIMEN Ordering Facility: [facility] Address: [address] [place] [address] Performed By: #### 2 4321-2 #### [facility] CLIA [id number] [address] [place] Creatinine [Mass/Vol] 0.79 mg/dL Normal 0.58-0.96 [facility] Comment on above: Order Comment: Speci men Type: BLOOD SPECIMEN Ordering Facility: [facility] Address: [address] [address] Performed By: #### 2 4321-2 #### [facility] CLIA [id number] [address] [place] [address] [place] Creatinine and Glomerular filtration rate.predicted panel (S/P/Bld) 75 mL/min/1.73m??? Normal >=60 [facility] Comment on above: Order Comment: Armin men Type: BLOOD SPECIMEN Ordering Facility: [facility] Address: [address] [place] [address] Result Comment: July mated Glomerular Filtration Rate (eGFR) is calculated using the 2020 CKD-EPI creatinine equation. This equation utilizes serum creatinine, sex, and age as parameters. The creatinine assay has traceable calibration to isotope dilution-mass spectrometry. Refer to KDIGO guidelines for clinical interpretation. In patients with unstable renal function, e.g. those with acute kidney injury, the eGFR may not accurately reflect actual GFR. Performed By: #### 2 4321-2 #### [facility] CLIA [id number] [address] [place] [address] [place] Glucose [Mass/Vol] 107 mg/dL High 74-99 [facility] Comment on above: Order Comment: Armin dimas Type: BLOOD SPECIMEN Ordering Facility: [facility] Address: [address] [place] [address] Result Comment: The [place] [employer] (ADA) provides guidance for cutoff values for fasting glucose and random glucose. The ADA defines fasting as no caloric intake for at least 8 hours. Fasting plasma glucose results between 100 to 125 mg/dL indicate increased risk for diabetes (prediabetes). Fasting plasma glucose results greater than or equal to 126 mg/dL meet the criteria for diagnosis of diabetes. In the absence of unequivocal hyperglycemia, results should be confirmed by repeat testing. In a patient with classic symptoms of hyperglycemia or hyperglycemic crisis, random plasma glucose results greater than or equal to 200 mg/dL meet the criteria for diagnosis of diabetes. Reference: Standards of Medical Care in Diabetes 2016, [place] [employer]. Diabetes Care. 2016.39(Suppl 1). Performed By: #### 2 4321-2 #### [facility] CLIA [id number] [address] [place] Potassium [Moles/Vol] 4.1 mmol/L Normal 3.7-5.1 [facility] Comment on above: Order Comment: Speci men Type: BLOOD SPECIMEN Ordering Facility: [facility] Address: [address] [address] Performed By: #### 2 4321-2 #### [facility] CLIA [id number] [address] [place] Sodium [Moles/Vol] 138 mmol/L Normal 136-144 [facility] Comment on above: Order Comment: Speci men Type: BLOOD SPECIMEN Ordering Facility: [facility] Address: [address] [place] [address] Performed By: #### 2 4321-2 #### [facility] CLIA [id number] [address] STATES [facility] Urea nitrogen [Mass/Vol] 8 mg/dL Normal 7-21 [facility] Comment on above: Order Comment: Speci men Type: BLOOD SPECIMEN Ordering Facility: [facility] Address: [address] [place] [address] Performed By: #### 2 4321-2 #### [facility] CLIA [id number] [address] STATES OF [facility] CBC panel Auto (Bld)on 02-16 Erythrocyte distribution width (RBC) [Ratio] 13.2 % Normal 11.5-15.0 [facility] Comment on above: Order Comment: Speci men Type: BLOOD SPECIMEN Ordering Facility: [facility] Address: [address] [address] Performed By: #### 5 8410-2 #### [facility] CLIA [id number] [address] [place] Hematocrit (Bld) [Volume fraction] 32.9 % Low 36.0-46.0 [facility] Comment on above: Order Comment: Speci men Type: BLOOD SPECIMEN Ordering Facility: [facility] Address: [address] [place], [place] [id number] Performed By: #### 5 8410-2 #### [facility] CLIA [id number] [address] Hemoglobin (Bld) [Mass/Vol] 10.6 g/dL Low 11.5-15.5 [facility] Comment on above: Order Comment: Speci men Type: BLOOD SPECIMEN Ordering Facility: [facility] Address: [address] [place] [address] Performed By: #### 5 8410-2 #### [facility] CLIA [id number] [address] MCH (RBC) [Entitic mass] 30.3 pg Normal 26.0-34.0 [facility] Comment on above: Order Comment: Speci men Type: BLOOD SPECIMEN Ordering Facility: [facility] Address: [address] [place] [address] Performed By: #### 5 8410-2 #### [facility] CLIA [id number] [address] MCHC (RBC) [Mass/Vol] 32.2 g/dL Normal 30.5-36.0 [facility] Comment on above: Order Comment: Speci men Type: BLOOD SPECIMEN Ordering Facility: [facility] Address: [address] [place] [address] Performed By: #### 5 8410-2 #### [facility] CLIA [id number] [address] MCV (RBC) [Entitic vol] 94.0 fL Normal 80.0-100.0 [facility] Comment on above: Order Comment: Speci men Type: BLOOD SPECIMEN Ordering Facility: [facility] Address: [address] [place] [address] Performed By: #### 5 8410-2 #### [facility] CLIA [id number] [address] Nucleated RBC (Bld) [#/Vol] 10*3/uL Normal <0.01 [facility] Comment on above: Order Comment: Speci men Type: BLOOD SPECIMEN Ordering Facility: [facility] Address: [address] [place] [address] Performed By: #### 5 8410-2 #### [facility] CLIA [id number] [address] [place] Platelet mean volume (Bld) [Entitic vol] 8.6 fL Low 9.0-12.7 [facility] Comment on above: Order Comment: Speci men Type: BLOOD SPECIMEN Ordering Facility: [facility] Address: [address] [place] [address] Performed By: #### 5 8410-2 #### [facility] CLIA [id number] [address] [place] Platelets (Bld) [#/Vol] 208 10*3/uL Normal 150-400 [facility] Comment on above: Order Comment: Speci men Type: BLOOD SPECIMEN Ordering Facility: [facility] Address: [address] [address] Performed By: #### 5 8410-2 #### [facility] CLIA [id number] [address] [place] RBC (Bld) [#/Vol] 3.50 10*6/uL Low 3.90-5.20 [facility] Comment on above: Order Comment: Speci men Type: BLOOD SPECIMEN Ordering Facility: [facility] Address: [address] [address] Performed By: #### 5 8410-2 #### [facility] CLIA [id number] [address] [place] WBC (Bld) [#/Vol] 15.17 10*3/uL High 3.70-11.00 [facility] Comment on above: Order Comment: Speci men Type: BLOOD SPECIMEN Ordering Facility: [facility] Address: [address] [place] [address] Performed By: #### 5 8410-2 #### [facility] CLIA [id number] [address] OF [facility] Colonoscopyon 02-16-2023 Colonoscopy [facility] Gastrointestinal Endoscopy Patient Name: Sandie Ho Procedure Date: 02/16/2023 11:45 AM Date of : 1940 Admit Type: Inpatient Room: [address] [address] Gender: Female Note Status: Finalized Attending MD: García Obando MD Procedure: Colonoscopy Indications: Hematochezia, Acute post hemorrhagic anemia Providers: García Obando MD Patient Profile: Last Colonoscopy: 2021. Referring Physician: Camila Law (Referring MD) Medicines: Monitored Anesthesia Care Complications: No immediate complications. Procedure: Pre-Anesthesia Assessment: - Prior to the procedure, a History and Physical was performed, and patient medications and allergies were reviewed. The patient's tolerance of previous anesthesia was also reviewed. The risks and benefits of the procedure and the sedation options and risks were discussed with the patient. All questions were answered, and informed consent was obtained. Prior Anticoagulants: The patient has taken no anticoagulant or antiplatelet agents. ASA Grade Assessment: III - A patient with severe systemic disease. After reviewing the risks and benefits, the patient was deemed in satisfactory condition to undergo the procedure. After I obtained informed consent, the scope was passed under direct vision. Throughout the procedure, the patient's blood pressure, pulse, and oxygen saturations were monitored continuously. The Colonoscope was introduced through the anus and advanced to the cecum, identified by appendiceal orifice and ileocecal valve. I was present and participated during the entire procedure, including non-lancaster portions, and during the administration and monitoring of Moderate Sedation. The ileocecal valve, appendiceal orifice, and rectum were photographed. The colonoscopy was performed without difficulty. The patient tolerated the procedure fairly well. The quality of the bowel preparation was adequate. Scope Withdrawal Time: 0 hours 9 minutes 54 seconds Moderate Sedation: Exam was performed under monitored anesthesia care (MAC) Findings: Hemorrhoids were found on perianal exam. Non-bleeding external hemorrhoids were found during perianal exam. The hemorrhoids were Grade I (internal hemorrhoids that do not prolapse). Segmental moderate inflammation characterized by congestion (edema), friability and serpentine ulcerations was found in the sigmoid colon and in the descending colon. Biopsies were taken with a cold forceps for histology. No additional abnormalities were found on retroflexion. Estimated Blood Loss: Estimated blood loss was minimal. Impression: - Hemorrhoids found on perianal exam. - Non-bleeding external hemorrhoids. - Segmental moderate inflammation was found in the sigmoid colon and in the descending colon secondary to ischemic colitis. Biopsied. Recommendation: - Full liquid diet today. - Continue present medications. - Await pathology results. - Start BASA 81 mg at DC. - Nothing further from GI standpoint. - Patient has a contact number available for emergencies. The signs and symptoms of potential delayed complications were discussed with the patient. Return to normal activities tomorrow. Written discharge instructions were provided to the patient. - No repeat colonoscopy. Procedure Code(s): --- Professional --- 44400, Colonoscopy, flexible; with biopsy, single or multiple --- Technical --- 44765, Colonoscopy, flexible; with biopsy, single or multiple Diagnosis Code(s): --- Professional --- K64.0, First degree hemorrhoids K64.4, Residual hemorrhoidal skin tags K55.9, Vascular disorder of intestine, unspecified K92.1, Melena (includes Hematochezia) D62, Acute posthemorrhagic anemia --- Technical --- K64.0, First degree hemorrhoids K64.4, Residual hemorrhoidal skin tags K55.9, Vascular disorder of intestine, unspecified K92.1, Melena (includes Hematochezia) D62, Acute posthemorrhagic anemia CPT copyright 2020 [employer]. All rights reserved. The codes documented in this report are preliminary and upon medical biller coder review may be revised to meet current compliance requirements. Attending Participation: I personally performed the entire procedure. Scope In: 11:49:19 AM Scope Out: 12:12:27 PM MD García Muller MD 02/16/2023 12:44:02 PM This report has been signed electronically by García Obando MD Number of Addenda: 0 Note Initiated On: 02/16/2023 11:45 AM Normal [facility] SURGICAL PATHOLOGYon 02-16- 023 CASE REPORT Normal [facility] Comment on above: Order Comment: Speci men Type: TISSUE SPECIMEN Ordering Facility: [facility] Address: [address] [place] [address] Result Comment: Surg ica Pathology Report Case: [id number] Authorizing Provider: García Obando MD Collected: 02/16/2023 11:39 AM Ordering Location: [facility] Received: 02/17/2023 08:49 AM Pathologist: Devin Walls MD Specimens: A) - STOMACH BIOPSY B) - PYLORUS BIOPSY, pre-pyloric ulcer scar C) - ESOPHAGUS BIOPSY, distal D) - COLON LEFT BIOPSY Performed By: #### S #### [facility] CLIA [id number] [address] DIAGNOSIS COMMENT There some features, such as crypt withering, which raise the possibility of ischemia. Clinical correlation is required. Normal [facility] Comment on above: Order Comment: Speci men Type: TISSUE SPECIMEN Ordering Facility: [facility] Address: [address] [place] [address] Performed By: #### S #### [facility] CLIA [id number] [address] [place] [address] FINAL DIAGNOSIS Normal [facility] Comment on above: Order Comment: Speci men Type: TISSUE SPECIMEN Ordering Facility: [facility] Address: [address] [place] [address] Result Comment: Mindy Lira tomach, biopsy: - Gastric mucosa with mild reactive gastropathy and minimal chronic inflammation. - There is no evidence of Helicobacter pylori infection on routine stains. B. Stomach, prepyloric ulcer, biopsy: - Gastric mucosa with mild reactive gastropathy. - There is no evidence of Helicobacter pylori infection on routine stains. C. Esophagus, distal, biopsy: - Squamoglandular junction mucosa with minimal chronic inflammation. - No intestinal metaplasia or dysplasia is identified. D. Colon, left, biopsy: - Colonic mucosa, predominantly necrotic with fibrinopurulent exudate, consistent with ulceration, (see comment). Performed By: #### S #### [facility] CLIA [id number] [address] [place] [address] [address]ING LAB Normal [facility] Comment on above: Order Comment: Speci men Type: TISSUE SPECIMEN Ordering Facility: [facility] Address: [address] [id number] Result Comment: Diag nostic interpretation performed at [facility], [address] [place] [address] CLIA# [id number] Scooping Machine Tender: Sergio Escoto M.D. Performed By: #### S #### [facility] CLIA [id number] [address] [place] [address] GROSS DESCRIPTION Normal [facility] Comment on above: Order Comment: Speci men Type: TISSUE SPECIMEN Ordering Facility: [facility] Address: [address] [id number] Result Comment: A. S TOMACH BIOPSY Received in formalin labeled with the patients name and stomach biopsy are 3 fatima, glistening, irregularly shaped soft tissue fragments, averaging 0.4 x 0.3 x 0.2 cm which are submitted in toto in one cassette. B. PYLORUS BIOPSY Received in formalin labeled with the patients name and prepyloric ulcer scar is a 0.3 x 0.2 x 0.1 cm fatima, glistening, irregularly shaped soft tissue fragment which is submitted in toto in one cassette. C. ESOPHAGUS BIOPSY Received in formalin labeled with the patients name and distal esophagus biopsy are 3 fatima, glistening, irregularly shaped soft tissue fragments, averaging 0.4 x 0.3 x 0.2 cm which are submitted in toto in one cassette. D. COLON LEFT BIOPSY Received in formalin labeled with the patients name and left colon biopsy are 4 fatima-hemorrhagic, glistening, irregularly shaped soft tissue fragments, ranging from 0.3 x 0.2 x 0.2 cm to 0.5 x 0.3 x 0.2 cm which are submitted in toto in one cassette. Gross examination performed at [facility], [address] [place] [address] CLIA# [id number] [facility] February 17, 2023 10:28 AM Performed By: #### S #### [facility] CLIA [id number] [address] STATES OF [facility] Upper GI endoscopy 023 Upper GI endoscopy [facility] Gastrointestinal Endoscopy Patient Name: Sandie Ho Procedure Date: 02/16/2023 11:16 AM Date of : 1940 Admit Type: Inpatient Room: [address] [place] [address] Gender: Female Note Status: Finalized Attending MD: García Obando MD Procedure: Upper GI endoscopy Indications: Acute post hemorrhagic anemia, Hematochezia Providers: García Obando MD Referring Physician: Camila Law (Referring MD) Medicines: Monitored Anesthesia Care Complications: No immediate complications. Procedure: Pre-Anesthesia Assessment: - Prior to the procedure, a History and Physical was performed, and patient medications and allergies were reviewed. The patient's tolerance of previous anesthesia was also reviewed. The risks and benefits of the procedure and the sedation options and risks were discussed with the patient. All questions were answered, and informed consent was obtained. Prior Anticoagulants: The patient has taken no anticoagulant or antiplatelet agents. ASA Grade Assessment: III - A patient with severe systemic disease. After reviewing the risks and benefits, the patient was deemed in satisfactory condition to undergo the procedure. After obtaining informed consent, the endoscope was passed under direct vision. Throughout the procedure, the patient's blood pressure, pulse, and oxygen saturations were monitored continuously. The Endoscope was introduced through the mouth, and advanced to the second part of duodenum. I was present and participated during the entire procedure, including non-lancaster portions, and during the administration and monitoring of Moderate Sedation. The upper GI endoscopy was accomplished without difficulty. The patient tolerated the procedure well. Moderate Sedation: Exam was performed under monitored anesthesia care (MAC) Findings: Two tongues of salmon-colored mucosa were present at 38 cm. The maximum longitudinal extent of these esophageal mucosal changes was 2 cm in length. Biopsies were taken with a cold forceps for histology. The second portion of the duodenum was normal. A 4 mm healed ulcer was found in the prepyloric region of the stomach. Biopsies were taken with a cold forceps for histology. Biopsies were taken with a cold forceps for Helicobacter pylori testing. Estimated Blood Loss: Estimated blood loss was minimal. 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 Biopsied. - Normal second portion of the duodenum. - Scar in the prepyloric region of the stomach. Biopsied. Recommendation: - Await pathology results. - Perform a colonoscopy today. - Use Protonix (pantoprazole) 40 mg PO daily. - The patient is not currently taking anticoagulant or antiplatelet agents. Procedure Code(s): --- Professional --- 98242, Esophagogastroduodenos copy, flexible, transoral; with biopsy, single or multiple --- Technical --- 94045, Esophagogastroduodenos copy, flexible, transoral; with biopsy, single or multiple Diagnosis Code(s): --- Professional --- K22.70, 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 K31.89, Other diseases of stomach and duodenum D62, Acute posthemorrhagic anemia K92.1, Melena (includes Hematochezia) --- Technical --- K22.70, 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 K31.89, Other diseases of stomach and duodenum D62, Acute posthemorrhagic anemia K92.1, Melena (includes Hematochezia) CPT copyright 2020 [employer]. All rights reserved. The codes documented in this report are preliminary and upon medical biller coder review may be revised to meet current compliance requirements. Attending Participation: I personally performed the entire procedure. Scope In: 11:36:01 AM Scope Out: 11:45:15 AM MD García Muller MD 02/16/2023 12:29:00 PM This report has been signed electronically by García Obando MD Number of Addenda: 0 Note Initiated On: 02/16/2023 11:16 AM Normal [facility] Urinalysis complete panel (U )on 02-16-2023 Bilirubin Ql (U) Negative Normal Negative [facility] Comment on above: Order Comment: Speci men Type: URINE SPECIMEN Ordering Facility: [facility] Address: [place] [address] Performed By: #### 2 4356-8 #### [facility] CLIA [id number] [address] [place] [address] [place] Clarity (Unsp spec) Clear Normal Clear [facility] Comment on above: Order Comment: Speci men Type: URINE SPECIMEN Ordering Facility: [facility] Address: [address] [place] [address] Performed By: #### 2 4356-8 #### [facility] CLIA [id number] [address] Color (U) Light Yellow Normal yellow [facility] Comment on above: Order Comment: Speci men Type: URINE SPECIMEN Ordering Facility: [facility] Address: [address] [place] [address] Performed By: #### 2 4356-8 #### [facility] CLIA [id number] [address] Glucose Test strip (U) [Mass/Vol] Negative Normal Trace, Negative [facility] Comment on above: Order Comment: Speci men Type: URINE SPECIMEN Ordering Facility: [facility] Address: [address] [place] [address] Performed By: #### 2 4356-8 #### [facility] CLIA [id number] [address] Hemoglobin Ql (U) 1+ Abnormal Negative, Trace [facility] Comment on above: Order Comment: Speci men Type: URINE SPECIMEN Ordering Facility: [facility] Address: [address] [place] [address] Performed By: #### 2 4356-8 #### [facility] CLIA [id number] [address] Ketones Ql (U) Negative Normal Negative, Trace [facility] Comment on above: Order Comment: Speci men Type: URINE SPECIMEN Ordering Facility: [facility] Address: [address] [place] [address] Performed By: #### 2 4356-8 #### [facility] CLIA [id number] [address] Leukocyte esterase Test strip Ql (U) Negative Normal Negative, 25 Anmol/uL [facility] Comment on above: Order Comment: Speci men Type: URINE SPECIMEN Ordering Facility: [facility] Address: [address] [place] [address] Performed By: #### 2 4356-8 #### [facility] CLIA [id number] [address] [place] Nitrite Ql (U) Negative Normal Negative [facility] Comment on above: Order Comment: Speci men Type: URINE SPECIMEN Ordering Facility: [facility] Address: [address] [place] [address] Performed By: #### 2 4356-8 #### [facility] CLIA [id number] [address] [place] pH (U) 6.0 [pH] Normal 5.0-8.0 [facility] Comment on above: Order Comment: Speci men Type: URINE SPECIMEN Ordering Facility: [facility] Address: [address] [place] [address] Performed By: #### 2 4356-8 #### [facility] CLIA [id number] [address] STATES [facility] Protein (U) [Mass/Vol] Negative Normal Trace , Negative [facility] Comment on above: Order Comment: Speci men Type: URINE SPECIMEN Ordering Facility: [facility] Address: [address] [place] [address] Performed By: #### 2 4356-8 #### [facility] CLIA [id number] [address] [place] RBC LM.HPF (Urine sed) [#/Area] 3-5 /HPF Abnormal 0-3 /HPF [facility] Comment on above: Order Comment: Speci men Type: URINE SPECIMEN Ordering Facility[facility] Address: [address] [place] [address] Performed By: #### 2 4356-8 #### [facility] CLIA [id number] [address] [place] Specific gravity (U) [Rel density] 1.005 Normal 1.005-1.030 [facility] Comment on above: Order Comment: Speci men Type: URINE SPECIMEN Ordering Facility: [facility] Address: [address] [place] [address] Performed By: #### 2 4356-8 #### [facility] CLIA [id number] [address] Urobilinogen Ql (U) Normal Normal Negative [facility] Comment on above: Order Comment: Speci men Type: URINE SPECIMEN Ordering Facility: [facility] Address: [address] [place] [address] Performed By: #### 2 4356-8 #### [facility] CLIA [id number] [address] WBC LM.HPF (Urine sed) [#/Area] 0-5 /HPF Normal 0-5 /HPF [facility] Comment on above: Order Comment: Speci men Type: URINE SPECIMEN Ordering Facility: [facility] Address: [address] [place] [address] Performed By: #### 2 4356-8 #### [facility] CLIA [id number] [address] [place] Basic metabolic 2000 panelon 02-15-2023 Anion gap [Moles/Vol] 9 mmol/L Normal 9-18 [facility] Comment on above: Order Comment: Speci men Type: BLOOD SPECIMEN Ordering Facility: [facility] Address: [address] [place] [address] Performed By: #### 2 4321-2 #### [facility] CLIA [id number] [address] STATES OF [facility] Calcium [Mass/Vol] 8.7 mg/dL Normal 8.5-10.2 [facility] Comment on above: Order Comment: Speci men Type: BLOOD SPECIMEN Ordering Facility: [facility] Address: [address] [place] [address] Performed By: #### 2 4321-2 #### [facility] CLIA [id number] [address] Chloride [Moles/Vol] 110 mmol/L High 97-105 [facility] Comment on above: Order Comment: Speci men Type: BLOOD SPECIMEN Ordering Facility: [facility] Address: [address] [place] [address] Performed By: #### 2 4321-2 #### [facility] CLIA [id number] [address] CO2 [Moles/Vol] 21 mmol/L Low 22-30 [facility] Comment on above: Order Comment: Speci men Type: BLOOD SPECIMEN Ordering Facility: [facility] Address: [address] [place] [address] Performed By: #### 2 4321-2 #### [facility] CLIA [id number] [address] [place] [address] Creatinine [Mass/Vol] 0.79 mg/dL Normal 0.58-0.96 [facility] Comment on above: Order Comment: Speci men Type: BLOOD SPECIMEN Ordering Facility: [facility] Address: [address] [place] [address] Performed By: #### 2 4321-2 #### [facility] CLIA [id number] [address] [place] [address] ESTIMATED GLOMERULAR FILTRATION RATE 75 mL/min/1.73m??? Normal >=60 [facility] Comment on above: Order Comment: Speci men Type: BLOOD SPECIMEN Ordering Facility: [facility] Address: [address] [place] [address] Result Comment: July mated Glomerular Filtration Rate (eGFR) is calculated using the 2020 CKD-EPI creatinine equation. This equation utilizes serum creatinine, sex, and age as parameters. The creatinine assay has traceable calibration to isotope dilution-mass spectrometry. Refer to KDIGO guidelines for clinical interpretation. In patients with unstable renal function, e.g. those with acute kidney injury, the eGFR may not accurately reflect actual GFR. Performed By: #### 2 4321-2 #### [facility] CLIA [id number] [address] Glucose [Mass/Vol] 85 mg/dL Normal 74-99 [facility] Comment on above: Order Comment: Speci men Type: BLOOD SPECIMEN Ordering Facility: [facility] Address: [address] [place] [address] Result Comment: The [place] [employer] (ADA) provides guidance for cutoff values for fasting glucose and random glucose. The ADA defines fasting as no caloric intake for at least 8 hours. Fasting plasma glucose results between 100 to 125 mg/dL indicate increased risk for diabetes (prediabetes). Fasting plasma glucose results greater than or equal to 126 mg/dL meet the criteria for diagnosis of diabetes. In the absence of unequivocal hyperglycemia, results should be confirmed by repeat testing. In a patient with classic symptoms of hyperglycemia or hyperglycemic crisis, random plasma glucose results greater than or equal to 200 mg/dL meet the criteria for diagnosis of diabetes. Reference: Standards of Medical Care in Diabetes 2016, [place] [employer]. Diabetes Care. 2016.39(Suppl 1). Performed By: #### 2 4321-2 #### [facility] CLIA [id number] 1 [place] [address] [place] Potassium [Moles/Vol] 4.0 mmol/L Normal 3.7-5.1 [facility] Comment on above: Order Comment: Cindyi men Type: BLOOD SPECIMEN Ordering Facility: [facility] Address: [address] [place] [address] Performed By: #### 2 4321-2 #### [facility] CLIA [id number] 1 [place] [address] [place] Sodium [Moles/Vol] 140 mmol/L Normal 136-144 [facility] Comment on above: Order Comment: Speci men Type: BLOOD SPECIMEN Ordering Facility: [facility] Address: [address] [place] [address] Performed By: #### 2 4321-2 #### [facility] CLIA [id number] 1 [place] [address] [place] Urea nitrogen [Mass/Vol] 15 mg/dL Normal 7-21 [facility] Comment on above: Order Comment: Speci men Type: BLOOD SPECIMEN Ordering Facility: [facility] Address: [address] [place], [place] [id number] Performed By: #### 2 4321-2 #### [facility] CLIA [id number] [address] CBC panel Auto (Bld)on 02-15 Erythrocyte distribution width (RBC) [Ratio] 13.2 % Normal 11.5-15.0 [facility] Comment on above: Order Comment: Speci men Type: BLOOD SPECIMEN Ordering Facility: [facility] Address: [address] [address] Performed By: #### H STNT #### [facility] CLIA [id number] [address] Hematocrit (Bld) [Volume fraction] 30.6 % Low 36.0-46.0 [facility] Comment on above: Order Comment: Speci men Type: BLOOD SPECIMEN Ordering Facility: [facility] Address: [address] [place] [address] Performed By: #### H STNT #### [facility] CLIA [id number] [address] Hemoglobin (Bld) [Mass/Vol] 9.6 g/dL Low 11.5-15.5 [facility] Comment on above: Order Comment: Speci men Type: BLOOD SPECIMEN Ordering Facility: [facility] Address: [address] [place] [address] Performed By: #### H STNT #### [facility] CLIA [id number] [address] MCH (RBC) [Entitic mass] 30.3 pg Normal 26.0-34.0 [facility] Comment on above: Order Comment: Speci men Type: BLOOD SPECIMEN Ordering Facility: [facility] Address: [address] [address] Performed By: #### H STNT #### [facility] CLIA [id number] [address] MCHC (RBC) [Mass/Vol] 31.4 g/dL Normal 30.5-36.0 [facility] Comment on above: Order Comment: Speci men Type: BLOOD SPECIMEN Ordering Facility: [facility] Address: [address] [address] Performed By: #### H STNT #### [facility] CLIA [id number] [address] MCV (RBC) [Entitic vol] 96.5 fL Normal 80.0-100.0 [facility] Comment on above: Order Comment: Speci men Type: BLOOD SPECIMEN Ordering Facility: [facility] Address: [address] [address] Performed By: #### H STNT #### [facility] CLIA [id number] [address] Nucleated RBC (Bld) [#/Vol] 10*3/uL Normal <0.01 [facility] Comment on above: Order Comment: Speci men Type: BLOOD SPECIMEN Ordering Facility: [facility] Address: [address] [address] Performed By: #### H STNT #### [facility] CLIA [id number] [address] OF [facility] Platelet mean volume (Bld) [Entitic vol] 8.8 fL Low 9.0-12.7 [facility] Comment on above: Order Comment: Speci men Type: BLOOD SPECIMEN Ordering Facility: [facility] Address: [address] [address] Performed By: #### H STNT #### [facility] CLIA [id number] [address] [place] Platelets (Bld) [#/Vol] 181 10*3/uL Normal 150-400 [facility] Comment on above: Order Comment: Speci men Type: BLOOD SPECIMEN Ordering Facility: [facility] Address: [address] [address] Performed By: #### H STNT #### [facility] CLIA [id number] [address] OF [facility] RBC (Bld) [#/Vol] 3.17 10*6/uL Low 3.90-5.20 [facility] Comment on above: Order Comment: Speci men Type: BLOOD SPECIMEN Ordering Facility: [facility] Address: [address] [place] [address] Performed By: #### H STNT #### [facility] CLIA [id number] [address] OF [facility] WBC (Bld) [#/Vol] 15.67 10*3/uL High 3.70-11.00 [facility] Comment on above: Order Comment: Speci men Type: BLOOD SPECIMEN Ordering Facility: [facility] Address: [address] [place] [address] Performed By: #### H STNT #### [facility] CLIA [id number] [address] CONSULTon 02-15-2023 CONSULT HNO ID: [id number] Author: Kaylee Coker MD Service: Urology Author Type: Resident Type: Consults Filed: 02/15/2023 4:37 PM Note Text: Attestation signed by Fantasma Jett MD at 02/16/2023 5:14 PM Attending Note I evaluated the patient and personally participated in the [place] components. I agree with the resident's findings and plan as documented and have discussed the case and management of the patient's care with the resident. ASSESSMENT/PLAN: 1. Gastritis without bleeding, unspecified chronicity, unspecified gastritis type - ICD9: 535.50, ICD10: K29.70 Concern for hematuria. It sounds like the hematuria is more likely from GI source. Follow up with Dr. Nava for outpatient hematuria work up. Fantasma Jett MD Date: 02/16/23 Time: 5:13 PM Urology Inpatient Consultation 02/14/2023 HISTORY OF PRESENT ILLNESS: The patient is a 82 year old female new to our service and admitted for GIB. Urology consulted for hematuria. Upon evaluation, urine yellow in toilet hat without signs of blood. Daughter also present during interview. Patient states she is not sure if she was having blood in urine and it may have all been GIB. She has a urologist she follows with (Shanika Nava) and will mention possible incidence of gross hematuria at next visit (has a scheduled visit) ED/Hospital workup Cr 0.79 WBC 15.67 HGB 9.6 No urine studies R US - no hydro or focal lesion No gómez PAST MEDICAL HISTORY: PAST MEDICAL HISTORY Diagnosis Date [...] unspecified 06/24/2013 Vitamin D deficiency PAST SURGICAL HISTORY: PAST SURGICAL HISTORY Procedure Laterality Date 2D ECHO (EXEP) 03/28/2018 EF=55%, mild Hernandez dysf, normal valves. ARTHROSCOPY KNEE DIAGNOSTIC W/WO SYNOVIAL BX SPX 06/2010 Arthroscopy, knee COLONOSCOPY 03/10/2022 COLONOSCOPY FLX DX W/COLLJ SPEC WHEN PFRMD Colonoscopy CYSTOURETHROSCOPY Cystoscopy EGD W/O [facility] SPEC VARICIES INJ 03/10/2022 PAST SURGICAL [...] HISTORY OF Right 07/2014 total hip replacement ALLERGIES: ALLERGIES Allergen Reactions Cymbalta [Duloxetin* Other: See Comments Pt reporting she is not allergic, just a negative side effect. HOME MEDICATIONS: buprenorphine (BUTRANS) 7.5 mcg/hour transdermal patch, Apply 1 Patch as directed every Monday., Disp: , Rfl: citalopram hydrobromide (CELEXA) 10 mg tablet, Take 10 mg by mouth once daily., Disp: , Rfl: metoprolol succinate ER (TOPROL XL) 50 mg 24 hr tablet, Take 50 mg by mouth once daily., Disp: , Rfl: pantoprazole DR (PROTONIX) 40 mg tablet, Take 40 mg by mouth once daily., Disp: , Rfl: ramipril (ALTACE) 2.5 mg capsule, Take 2.5 mg by mouth once daily., Disp: , Rfl: ondansetron (ZOFRAN) 4 mg tablet, Take 0.5-1 tablets by mouth every 8 hours as needed for Nausea/Vomiting., Disp: 30 tablet, Rfl: 5 HYDROcodone-acetaminop hen (NORCO) 5-325 mg per tablet, Take 1 tablet by mouth every 8 hours as needed for pain., Disp: , Rfl: predniSONE (DELTASONE) 20 mg tablet, Take 20 mg by mouth once daily. (Patient not taking: Reported on 06/16/2022), Disp: , Rfl: acetaminophen (TYLENOL) 500 m (more content not included)... Normal [facility] CONSULT HNO ID: [id number] Author: Camila Law APRN.CNP Service: Gastroenterology Author Type: Nurse Practitioner Type: Consults Filed: 02/15/2023 5:23 PM Note Text: INITIAL CONSULT GASTROENTEROLOGY SERVICE DATE: 02/15/2023 SERVICE TIME: 1:16 PM Consulting Service: Gastroenterology Chief Complaint: GI bleed Opinion/advice regarding: GI bleed Subjective HPI: This is a 82 year old female PMH COPD, gastritis, migraine presented to [facility] with c/o BRBPR. Of note pt seen 2 days ago outside ED for epigastric pain an was d/cd home where she later began having episodes BRBPR with clots. In ed, hgb 9.6. appears was normal 04/2022.pt started on protonix and admitted for further evaluation Upon assessment today pt up in room with family present at bedside. She reports two days of BRBPR without abdominal or rectal pain. Family also endorses pt vomiting daily with daily Excedrin use for headaches. Of note pt with EGD/Colonoscopy 03/2022 at outside facility for change in bowel habits and abd pain ( full reports not in epic) for which pt and family report were essentially negative. Pathology in epic reveals chronic gastritis and random colon biopsies negative. Pt denies blood thinners. Pt reports some nausea without vomiting today. No recent abdominal imaging. GI consulted for GI bleed PAST MEDICAL HISTORY Diagnosis Date Abnormal stress [...] x5 Coronary Artery Disease Brother aged 52, [place] Diabetes Brother Type II No Family History [...] of wine per week Drug use: No MEDICATIONS: Prior to Admission Medications: buprenorphine (BUTRANS) 7.5 mcg/hour transdermal patchApply 1 Patch as directed every Monday.Disp: Rfl: citalopram hydrobromide (CELEXA) 10 mg tabletTake 10 mg by mouth once daily.Disp: Rfl: metoprolol succinate ER (TOPROL XL) 50 mg 24 hr tabletTake 50 mg by mouth once daily.Disp: Rfl: pantoprazole DR (PROTONIX) 40 mg tabletTake 40 mg by mouth once daily.Disp: Rfl: ramipril (ALTACE) 2.5 mg capsuleTake 2.5 mg by mouth once daily.Disp: Rfl: ondansetron (ZOFRAN) 4 mg tabletTake 0.5-1 tablets by mouth every 8 hours as needed for Nausea/Vomiting.Disp: 30 tabletRfl: 5 HYDROcodone-acetaminop hen (NORCO) 5-325 mg per tabletTake 1 tablet by mouth every 8 hours as needed for richar (more content not included)... Normal [facility] HISTORY PHYSICALon HISTORY PHYSICAL HNO ID: [id number] Author: Rhiannon Madison DO Service: Hospital Medicine Author Type: Physician Type: HANDP Filed: 02/15/2023 12:01 AM Note Text: DEPARTMENT OF HOSPITAL MEDICINE HISTORY AND PHYSICAL EXAM SERVICE DATE: 02/14/2023 SERVICE TIME: 11:47 PM Primary Care Physician: Sergio Bailey MD NIGHT AND WEEKEND COVERAGE: From 7am - 7pm, please call sound After 7pm, please call cross cover pager #[phone] Subjective CHIEF COMPLAINT: GI bleed HPI: This is a 82 year old female who presents with a GI bleed. Yesterday she was seen at an outside ER for epigastric pain and discharged home. Today she relates that she presented to the outside hospital and had multiple episodes of bright red blood and clots per rectum. She has a longstanding history of acid reflux. She relates that she had a little bit of abdominal discomfort as well. She is also complaining of a headache at this time. Hb was 11.4 at outside hospital. WBC was 16.1 PAST MEDICAL HISTORY Diagnosis Date Abnormal stress [...] SURGICAL HISTORY OF 2014 R THR - [employer] PAST SURGICAL HISTORY OF Right 07/2014 total hip replacement FAMILY HISTORY Problem Relation Age of Onset Cancer Father Coronary Artery Disease Father Early 70's CABG x5 Coronary Artery Disease Brother aged 52, [place] Diabetes Brother Type II No Family History [...] of wine per week Drug use: No HOME MEDICATIONS: Prior to Admission Medications Prescriptions Last Dose Informant Patient Reported? Taking? Aspirin-Acetaminophen- Caffeine (EXCEDRIN MIGRAINE) 250-250-65 mg per tablet No No Sig: Take 1 tablet by mouth every 6 hours as needed (migraine). CALCIUM CITRATE/VITAMIN D3 (CITRACAL + D ORAL) Yes No Sig: Take by mouth once daily. Cholecalciferol, Vitamin D3, 2,000 unit cap No No Sig: Take 1 capsule by mouth once daily. HYDROcodone-acetaminop hen (NORCO) 5-325 mg per tablet Yes No Sig: Take 1 tablet by mouth every 8 hours as needed for pain. acetaminophen (TYLENOL) 500 mg tablet No No Sig: Take 2 tablets by mouth every 8 hours. albuterol HFA (PROVENTIL HFA, VENTOLIN HFA) 90 mcg/actuation inhaler Yes No Sig: INHALE 1 PUFF BY MOUTH EVERY 4 HOURS NEEDED AND 15 MINUTES PRIOR TO ACTIVITY ascorbic acid, vitamin C, (VITAMIN C) 500 mg tablet No No Sig: Take 1 tablet by mouth twice daily with meals. gabapentin (NEURONTIN) 100 mg capsule No No Sig: Take 2 capsules by mouth every 8 hours for 30 days. hydrocortisone 2.5 % ointment No No Sig: Apply to (more content not included)... Normal [facility] Hgb Bld-mCncon 02-15-2023 Hemoglobin (Bld) [Mass/Vol] 10.4 g/dL Low 11.5-15.5 [facility] Comment on above: Order Comment: Speci men Type: BLOOD SPECIMEN Ordering Facility: [facility] Address: [facility] [place] [address] Performed By: #### 7 18-7 #### [facility] CLIA [id number] 1 [place] [address] [place] TYPE + SCREENon 02-15-2023 ABO O Normal [facility] Comment on above: Order Comment: Speci men Type: BLOOD SPECIMEN Ordering Facility: [facility] Address: [address] [place] [address] Performed By: #### T SCR #### [facility] CLIA [id number] [address] HISTORICAL AB SCR STATUS Negative Normal [facility] Comment on above: Order Comment: Speci men Type: BLOOD SPECIMEN Ordering Facility: [facility] Address: [address] [address] Performed By: #### T SCR #### [facility] CLIA [id number] [address] Rh Nom (Bld) Negative Normal [facility] Comment on above: Order Comment: Speci men Type: BLOOD SPECIMEN Ordering Facility: [facility] Address: [address] [place] [address] Performed By: #### T SCR #### [facility] CLIA [id number] [address] TYPE AND SCREEN EXPIRATION 02/18/2023 23:59 Normal [facility] Comment on above: Order Comment: Speci men Type: BLOOD SPECIMEN Ordering Facility: [facility] Address: [address] [place] [address] Performed By: #### T SCR #### [facility] CLIA [id number] [address] Absolute lymphocyte countOrd ered By: Hailee De Leon on 02-14-2023 Lymphocytes Auto (Unsp spec) [#/Vol] 1.46 10*3/uL 0.83-4.51 [facility] Basophil percentageOrdered B y: Hailee De Leon on 02-14-2023 Basophil percentage 0-5 SEEN /hpf 0-5 [facility] Lactate [Moles/Vol] 1.0 mmol/L 0.4-2.0 [facility] Basophils/100 WBC (Bld) 0.4 % 0-[address] [facility] Chloride [Moles/Vol] 107 mmol/L 98-107 [facility] Eosinophils/100 WBC (Bld) 1.1 % 0-5 [facility] Glucose [Mass/Vol] 105 mg/dL 74-106 [facility] Comment on above: Fasting Glucose resu lt from 100 to 125 mg/dL suggests IMPAIRED HOMEOSTASIS per A.D.A. criteria. Neutrophils (Bld) [#/Vol] 12.9 10*3/uL 2.0-7.7 [facility] Neutrophils/100 WBC (Bld) 80.4 % 47-70 [facility] Potassium [Moles/Vol] 3.8 mmol/L 3.5-5.1 [facility] Sodium [Moles/Vol] 139 mmol/L 136-145 [facility] WBC (Bld) [#/Vol] 16.1 10*3/uL 4.4-11.0 [facility] Bilirubin Test strip Ql (U)O rdered By: Hailee De Leon on 02-14-2023 Bilirubin Ql (U) Negative Negative [facility] Blood erythrocytes count (nu mber/volume)Ordered By: Hailee De Leon on 02-14-2023 RBC (Bld) [#/Vol] 3.77 10*6/uL 4.2-5.4 [facility] Blood hemoglobin measurement (mass/volume)Ordered By: Hailee De Leon on 02-14-2023 Hemoglobin (Bld) [Mass/Vol] 11.4 g/dL 12.0-15.0 [facility] Blood lymphocytes/100 leukoc ytesOrdered By: Hailee De Leon on 02-14-2023 Lymphocytes/100 WBC (Bld) 9.1 % 19-41 [facility] Blood monocytes/100 leukocyt esOrdered By: Hailee De Leon on 02-14-2023 Monocytes/100 WBC (Bld) 8.3 % 0-[address] [facility] Blood platelet mean volumeOr dered By: Hailee De Leon on 02-14-2023 Platelet mean volume (Bld) [Entitic vol] 8.9 fL 6.2-12.0 [facility] Culture, urineOrdered By: Eb De Leon on 02-14-2023 Bacteria identified Cx Nom (U) Mixed Gram Pos & Gram Neg Org [facility] Determination of erythrocyte mean corpuscular volume (MCV)Ordered By: Hailee De Leon on 02-14-2023 MCV (RBC) [Entitic vol] 96.6 fL 81-[address] [facility] Hematocrit Auto (Bld) [Volum e fraction]Ordered By: Hailee De Leon on 02-14-2023 Hematocrit (Bld) [Volume fraction] 36.4 % 37-47 [facility] Ketones Test strip Ql (U)Ord ered By: Hailee De Leon on 02-14-2023 Ketones Ql (U) 15 mg/dl Negative [facility] Laboratory - Chemistry and C hemistry - challengeOrdered By: Hailee De Leon on 02-14-2023 Lipase [Catalytic activity/Vol] 20 U/L 13-75 [facility] Comment on above: Please note:LIPASE r evised reference range effective 22. New Lipase methodology. Expected to produce lower values than the previous assay method. NEW Reference Range: 13 - 75 U/L CO2 [Moles/Vol] 28.0 mmol/L 21.0-32.0 [facility] Urea nitrogen/Creatinine [Mass ratio] 22.0 mg/mg 10-20 [facility] Laboratory - Hematology and Cell countsOrdered By: Hailee De Leon on 02-14-2023 Erythrocyte distribution width (RBC) [Entitic vol] 46.6 fL 35.1-43.9 [facility] Erythrocyte distribution width (RBC) [Ratio] 13.2 % 11.6-14.6 [facility] Immature granulocytes/100 WBC (Bld) 0.700 % 0.0-0.9 [facility] Comment on above: IG% - Immature Granu locytes (promyelocytes, myelocytes and metamyelocytes) > 1% indicates that a LEFT SHIFT is Present. MCH (RBC) [Entitic mass] 30.2 pg 27.0-32.0 [facility] Nucleated RBC/100 WBC (Bld) [Ratio] 0 % 0-5 [facility] MCHC Auto (RBC) [Mass/Vol]Or dered By: Hailee De Leon on 02-14-2023 MCHC (RBC) [Mass/Vol] 31.3 g/dL 32-36 [facility] Mucus LM Ql (Urine sed)Order ed By: Hailee De Leon on 02-14-2023 Mucus Ql (Urine sed) 0 SEEN /hpf [facility] Nitrite Test strip Ql (U)Ord ered By: Hailee De Leon on 02-14-2023 Nitrite Ql (U) Negative Negative [facility] No Panel InformationOrdered By: Hailee De Leon on 02-14-2023 Estimated Creatinine Clearance Calc 42.28 ml/min [facility] Estimated GFR (MDRD) Amer 81 mL/min >60 [facility] Comment on above: GFR Calc Estimated GFR (MDRD) Non-Af Amer 67 mL/min >60 [facility] Comment on above: Non- GFR Calc Platelets bldOrdered By: Marybeth De Leon on 02-14-2023 Platelets (Bld) [#/Vol] 245 10*3/uL 150-450 [facility] Protein Test strip Ql (U)Ord ered By: Hailee De Leon on 02-14-2023 Protein Ql (U) 15 mg/dl Negative [facility] Serum or plasma calcium anthony urement (mass/volume)Ordered By: Hailee De Leon on 02-14-2023 Calcium [Mass/Vol] 9.1 mg/dL 8.5-10.1 [facility] Serum or plasma creatinine m easurement (mass/volume)Ordered By: Hailee De Leon on 02-14-2023 Creatinine [Mass/Vol] 0.86 mg/dL 0.55-1.02 [facility] Comment on above: The validity of the calculated GFR & GFRAA in patients over 70 years has not been determined. Clinical correlation is essential. Serum or plasma urea nitroge n measurement (mass/volume)Ordered By: Hailee De Leon on 02-14-2023 Urea nitrogen [Mass/Vol] 19 mg/dL 7-18 [facility] Squamous epithelial cells de tection in urine sediment by light microscopyOrdered By: Hailee De Leon on 02-14-2023 Epithelial cells.squamous LM Ql (Urine sed) 0 SEEN /hpf 5-10 [facility] Thin prep Papanicolaou smear with manual screeningOrdered By: Hailee De Leon on 02-14-2023 Thin prep Papanicolaou smear with manual screening 4 - [facility] Urine blood detectionOrdered By: Hailee De Leon on 02-14-2023 RBC Ql (U) 150 /ul Negative [facility] RBC Ql (U) 0-5 SEEN /hpf 0-5 [facility] Urine clarityOrdered By: Marybeth De Leon on 02-14-2023 Clarity (U) Clear Clear [facility] Urine color determinationOrd ered By: Hailee De Leon on 02-14-2023 Color (U) Yellow Yellow [facility] Urine glucose detectionOrder ed By: Hailee De Leon on 02-14-2023 Glucose Ql (U) Normal mg/dl Normal [facility] Urine leukocyte esterase det ection by dipstickOrdered By: Hailee De Leon on 02-14-2023 Leukocyte esterase Test strip Ql (U) 100 /ul Negative [facility] Urine pHOrdered By: Hailee saleh on 02-14-2023 pH (U) 6.0 [pH] 5.0 - 8.0 [facility] Urine sediment bacteria coun t by microscopy (number/high power field)Ordered By: Hailee De Leon on 02-14-2023 Bacteria LM.HPF (Urine sed) [#/Area] RARE /hpf None Seen [facility] Urine specific gravity measu rementOrdered By: Hailee De Leon on 02-14-2023 Specific gravity (U) [Rel density] 1.015 1.002-1.030 [facility] Urobilinogen Auto test strip Ql (U)Ordered By: Hailee De Leon on 02-14-2023 Urobilinogen Ql (U) Normal mg/dl Normal [facility] Absolute lymphocyte countOrd ered By: Alis Sorenson on 02-13-2023 Lymphocytes Auto (Unsp spec) [#/Vol] 0.91 10*3/uL 0.83-4.51 [facility] Basophil percentageOrdered B y: Alis Sorenson on 02-13-2023 Basophils/100 WBC (Bld) 0.5 % 0-[address] [facility] Bilirubin [Mass/Vol] 0.40 mg/dL 0.20-1.00 [facility] Comment on above: For patients on eltr ombopag therapy, use of Dimension [place] TBIL is not recommended. Chloride [Moles/Vol] 107 mmol/L 98-107 [facility] Eosinophils/100 WBC (Bld) 2.1 % 0-5 [facility] Glucose [Mass/Vol] 131 mg/dL 74-106 [facility] Comment on above: Fasting Glucose resu lt greater than or equal to 126 mg/dL suggests DIABETES MELLITUS per A.D.A. criteria. Neutrophils (Bld) [#/Vol] 14.0 10*3/uL 2.0-7.7 [facility] Neutrophils/100 WBC (Bld) 83.5 % 47-70 [facility] Potassium [Moles/Vol] 4.2 mmol/L 3.5-5.1 [facility] Protein [Mass/Vol] 6.5 g/dL 6.4-8.2 [facility] Sodium [Moles/Vol] 139 mmol/L 136-145 [facility] WBC (Bld) [#/Vol] 16.8 10*3/uL 4.4-11.0 [facility] Blood erythrocytes count (nu mber/volume)Ordered By: Alis Sorenson on 02-13-2023 RBC (Bld) [#/Vol] 4.43 10*6/uL 4.2-5.4 [facility] Blood hemoglobin measurement (mass/volume)Ordered By: Alis Sorenson on 02-13-2023 Hemoglobin (Bld) [Mass/Vol] 13.4 g/dL 12.0-15.0 [facility] Blood lymphocytes/100 leukoc ytesOrdered By: Alis Sorenson on 02-13-2023 Lymphocytes/100 WBC (Bld) 5.4 % 19-41 [facility] Blood monocytes/100 leukocyt esOrdered By: Alis Sorenson on 02-13-2023 Monocytes/100 WBC (Bld) 7.9 % 0-10 [facility] Blood platelet mean volumeOr dered By: Alis Sorenson on 02-13-2023 Platelet mean volume (Bld) [Entitic vol] 8.9 fL 6.2-12.0 [facility] Determination of erythrocyte mean corpuscular volume (MCV)Ordered By: Alis Sorenson on 02-13-2023 MCV (RBC) [Entitic vol] 98.0 fL 81-[address] [facility] Direct bilirubinOrdered By: Alis Sorenson on 02-13-2023 Bilirubin.direct [Mass/Vol] 0.11 mg/dL 0.00-0.30 [facility] Hematocrit Auto (Bld) [Volum e fraction]Ordered By: Alis Sorenson on 02-13-2023 Hematocrit (Bld) [Volume fraction] 43.4 % 37-47 [facility] Laboratory - Chemistry and C hemistry - challengeOrdered By: Alis Sorenson on 02-13-2023 ALP [Catalytic activity/Vol] 72 U/L 45-117 [facility] ALT [Catalytic activity/Vol] 15 U/L 13-56 [facility] CO2 [Moles/Vol] 27.0 mmol/L 21.0-32.0 [facility] Globulin (S) [Mass/Vol] 3.1 g/dL 2.2-4.[address] [facility] Lipase [Catalytic activity/Vol] 51 U/L 13-75 [facility] Comment on above: Please note:LIPASE r evised reference range effective 22. New Lipase methodology. Expected to produce lower values than the previous assay method. NEW Reference Range: 13 - 75 U/L Urea nitrogen/Creatinine [Mass ratio] 21.0 mg/mg 10-20 [facility] Laboratory - Hematology and Cell countsOrdered By: Alis Sorenson on 02-13-2023 Erythrocyte distribution width (RBC) [Entitic vol] 45.9 fL 35.1-43.9 [facility] Erythrocyte distribution width (RBC) [Ratio] 12.9 % 11.6-14.6 [facility] Immature granulocytes/100 WBC (Bld) 0.600 % 0.0-0.9 [facility] Comment on above: IG% - Immature Granu locytes (promyelocytes, myelocytes and metamyelocytes) > 1% indicates that a LEFT SHIFT is Present. MCH (RBC) [Entitic mass] 30.2 pg 27.0-32.0 [facility] Nucleated RBC/100 WBC (Bld) [Ratio] 0 % 0-5 [facility] MCHC Auto (RBC) [Mass/Vol]Or dered By: Alis Sorenson on 02-13-2023 MCHC (RBC) [Mass/Vol] 30.9 g/dL 32-36 [facility] No Panel InformationOrdered By: Alis Sorenson on 02-13-2023 Estimated Creatinine Clearance Calc 29.27 ml/min [facility] Estimated GFR (MDRD) Amer 53 mL/min >60 [facility] Comment on above: GFR Calc Estimated GFR (MDRD) Non-Af Amer 44 mL/min >60 [facility] Comment on above: Non- GFR Calc Platelets bldOrdered By: Arcelia Sorenson on 02-13-2023 Platelets (Bld) [#/Vol] 292 10*3/uL 150-450 [facility] Serum or plasma albumin anthony urement (mass/volume)Ordered By: Alis Soernson on 02-13-2023 Albumin [Mass/Vol] 3.4 g/dL 3.2-5.0 [facility] Serum or plasma calcium anthony urement (mass/volume)Ordered By: Alis Sorenson on 02-13-2023 Calcium [Mass/Vol] 9.0 mg/dL 8.5-10.1 [facility] Serum or plasma creatinine m easurement (mass/volume)Ordered By: Alis Sorenson on 02-13-2023 Creatinine [Mass/Vol] 1.24 mg/dL 0.55-1.02 [facility] Comment on above: The validity of the calculated GFR & GFRAA in patients over 70 years has not been determined. Clinical correlation is essential. Serum or plasma urea nitroge n measurement (mass/volume)Ordered By: Alis Sorenson on 02-13-2023 Urea nitrogen [Mass/Vol] 26 mg/dL 7-18 [facility] Thin prep Papanicolaou smear with manual screeningOrdered By: Alis Sorenson on 02-13-2023 Thin prep Papanicolaou smear with manual screening 18 U/L 15-37 [facility] Thin prep Papanicolaou smear with manual screening 5 5-15 [facility] Absolute lymphocyte countOrd ered By: Valentina Palomares on 01-26-2023 Lymphocytes Auto (Unsp spec) [#/Vol] 2.39 10*3/uL 0.83-4.51 [facility] Basophil percentageOrdered B y: Valentina Palomares on 01-26-2023 Basophils/100 WBC (Bld) 0.6 % 0-[address] [facility] Bilirubin [Mass/Vol] 0.20 mg/dL 0.20-1.00 [facility] Comment on above: For patients on eltr ombopag therapy, use of Dimension [place] TBIL is not recommended. Chloride [Moles/Vol] 106 mmol/L 98-107 [facility] Cholesterol [Mass/Vol] 215 mg/dL <200 [facility] Comment on above: <200 mg/dL Desirable 200-240 mg/dL Borderline >240 mg/dL High Risk Eosinophils/100 WBC (Bld) 6.3 % 0-5 [facility] Glucose [Mass/Vol] 104 mg/dL 74-106 [facility] Comment on above: Fasting Glucose resu lt from 100 to 125 mg/dL suggests IMPAIRED HOMEOSTASIS per A.D.A. criteria. Neutrophils (Bld) [#/Vol] 3.1 10*3/uL 2.0-7.7 [facility] Neutrophils/100 WBC (Bld) 47.3 % 47-70 [facility] Potassium [Moles/Vol] 3.6 mmol/L 3.5-5.1 [facility] Protein [Mass/Vol] 6.6 g/dL 6.4-8.2 [facility] Sodium [Moles/Vol] 140 mmol/L 136-145 [facility] Triglyceride [Mass/Vol] 129 mg/dL <[address] [facility] Comment on above: The drugs N-Acetylcy steine and Metamizole may falsely depress this assay.Serum Triglycerides Reference Interval Normal <150 mg/dL Borderline high 150 - 199 mg/dL High 200 - 499 mg/dL Very High > or = 500 mg/dL WBC (Bld) [#/Vol] 6.5 10*3/uL 4.4-11.0 [facility] Blood erythrocytes count (nu mber/volume)Ordered By: Valentina Palomares on 01-26-2023 RBC (Bld) [#/Vol] 4.15 10*6/uL 4.2-5.4 [facility] Blood hemoglobin measurement (mass/volume)Ordered By: Valentina Palomares on 01-26-2023 Hemoglobin (Bld) [Mass/Vol] 12.5 g/dL 12.0-15.0 [facility] Blood lymphocytes/100 leukoc ytesOrdered By: Valentina Jelani on 01-26-2023 Lymphocytes/100 WBC (Bld) 36.6 % 19-41 [facility] Blood monocytes/100 leukocyt esOrdered By: [facility] Jelani on 01-26-2023 Monocytes/100 WBC (Bld) 9.0 % 0-[address] [facility] Blood platelet mean volumeOr dered By: [facility] Jelani on 01-26-2023 Platelet mean volume (Bld) [Entitic vol] 8.7 fL 6.2-12.0 [facility] Determination of erythrocyte mean corpuscular volume (MCV)Ordered By: Valentina Palomares on 01-26-2023 MCV (RBC) [Entitic vol] 95.9 fL 81-[address] [facility] Hematocrit Auto (Bld) [Volum e fraction]Ordered By: [facility] Jelani on 01-26-2023 Hematocrit (Bld) [Volume fraction] 39.8 % 37-47 [facility] Laboratory - Chemistry and C hemistry - challengeOrdered By: [facility] Jelani on 01-26-2023 ALP [Catalytic activity/Vol] 67 U/L 45-117 [facility] ALT [Catalytic activity/Vol] 17 U/L 13-56 [facility] CO2 [Moles/Vol] 29.0 mmol/L 21.0-32.0 [facility] Globulin (S) [Mass/Vol] 3.0 g/dL 2.2-4.2 [facility] Urea nitrogen/Creatinine [Mass ratio] 21.3 mg/mg 10-20 [facility] Laboratory - Hematology and Cell countsOrdered By: Valentina Jelani on 01-26-2023 Erythrocyte distribution width (RBC) [Entitic vol] 46.8 fL 35.1-43.9 [facility] Erythrocyte distribution width (RBC) [Ratio] 13.2 % 11.6-14.6 [facility] Immature granulocytes/100 WBC (Bld) 0.200 % 0.0-0.9 [facility] Comment on above: IG% - Immature Granu locytes (promyelocytes, myelocytes and metamyelocytes) > 1% indicates that a LEFT SHIFT is Present. MCH (RBC) [Entitic mass] 30.1 pg 27.0-32.0 [facility] Nucleated RBC/100 WBC (Bld) [Ratio] 0 % 0-5 [facility] MCHC Auto (RBC) [Mass/Vol]Or dered By: Valentina Palomares on 01-26-2023 MCHC (RBC) [Mass/Vol] 31.4 g/dL 32-36 [facility] Comment on above: Delta: 33.6 on 01/25-1540 No Panel InformationOrdered By: Valentina Palomares on 01-26-2023 Estimated Creatinine Clearance Calc 42.52 ml/min [facility] Estimated GFR (MDRD) Amer 83 mL/min >60 [facility] Comment on above: GFR Calc Estimated GFR (MDRD) Non-Af Amer 68 mL/min >60 [facility] Comment on above: Non- GFR Calc Platelets bldOrdered By: Ana Luisa Palomares on 01-26-2023 Platelets (Bld) [#/Vol] 273 10*3/uL 150-450 [facility] Serum or plasma albumin anthony urement (mass/volume)Ordered By: Valentina Palomares on 01-26-2023 Albumin [Mass/Vol] 3.6 g/dL 3.2-5.0 [facility] Serum or plasma albumin/glob ulin mass ratioOrdered By: Valentina Palomares on 01-26-2023 Albumin/Globulin [Mass ratio] 1.2 {ratio} 0.9-2.4 [facility] Serum or plasma calcium anthony urement (mass/volume)Ordered By: Valentina Palomares on 01-26-2023 Calcium [Mass/Vol] 8.9 mg/dL 8.5-10.1 [facility] Serum or plasma cholesterol in HDL measurement (mass/volume)Ordered By: Valentina Palomares on 01-26-2023 Cholesterol in HDL [Mass/Vol] 68 mg/dL >40 [facility] Comment on above: The drugs N-Acetylcy steine and Metamizole may falsely depress this assay. Reference Range HDL <40 mg/dL Low HDL Cholesterol HDL >or= 60 mg/dL High HDL Cholesterol Serum or plasma cholesterol in VLDL measurement (mass/volume)Ordered By: Valentina Palomares on 01-26-2023 Cholesterol in VLDL [Mass/Vol] 26 mg/dL 5-40 [facility] Serum or plasma creatinine m easurement (mass/volume)Ordered By: Valentina Palomares on 01-26-2023 Creatinine [Mass/Vol] 0.84 mg/dL 0.55-1.02 [facility] Comment on above: The validity of the calculated GFR & GFRAA in patients over 70 years has not been determined. Clinical correlation is essential. Serum or plasma low density lipoprotein (LDL) cholesterol measurement (mass/volume)Ordered By: [facility] Jelani on 01-26-2023 Cholesterol in LDL [Mass/Vol] 121 mg/dL 0-130 [facility] Serum or plasma urea nitroge n measurement (mass/volume)Ordered By: [facility] Jelani on 01-26-2023 Urea nitrogen [Mass/Vol] 18 mg/dL 7-18 [facility] Thin prep Papanicolaou smear with manual screeningOrdered By: Valentina Jelani on 01-26-2023 Thin prep Papanicolaou smear with manual screening 18 U/L 15-37 [facility] Thin prep Papanicolaou smear with manual screening 5 5-15 [facility] Absolute lymphocyte countOrd ered By: Jean Morales on 01-25-2023 Lymphocytes Auto (Unsp spec) [#/Vol] 2.68 10*3/uL 0.83-4.51 [facility] Basophil percentageOrdered B y: Jean Morales on 01-25-2023 Basophils/100 WBC (Bld) 0.8 % 0-[address] [facility] Chloride [Moles/Vol] 108 mmol/L 98-107 [facility] Eosinophils/100 WBC (Bld) 4.0 % 0-5 [facility] Glucose [Mass/Vol] 117 mg/dL 74-106 [facility] Comment on above: Fasting Glucose resu lt from 100 to 125 mg/dL suggests IMPAIRED HOMEOSTASIS per A.D.A. criteria. Neutrophils (Bld) [#/Vol] 2.6 10*3/uL 2.0-7.7 [facility] Neutrophils/100 WBC (Bld) 41.5 % 47-70 [facility] Potassium [Moles/Vol] 3.5 mmol/L 3.5-5.1 [facility] Sodium [Moles/Vol] 140 mmol/L 136-145 [facility] WBC (Bld) [#/Vol] 6.2 10*3/uL 4.4-11.0 [facility] Blood erythrocytes count (nu mber/volume)Ordered By: Jean Morales on 01-25-2023 RBC (Bld) [#/Vol] 3.90 10*6/uL 4.2-5.4 [facility] Blood hemoglobin measurement (mass/volume)Ordered By: Jean Morales on 01-25-2023 Hemoglobin (Bld) [Mass/Vol] 12.2 g/dL 12.0-15.0 [facility] Blood lymphocytes/100 leukoc ytesOrdered By: Jean Morales on 01-25-2023 Lymphocytes/100 WBC (Bld) 43.3 % 19-41 [facility] Blood monocytes/100 leukocyt esOrdered By: Jean Morales on 01-25-2023 Monocytes/100 WBC (Bld) 10.2 % 0-[address] [facility] Blood platelet mean volumeOr dered By: Jean Morales on 01-25-2023 Platelet mean volume (Bld) [Entitic vol] 9.0 fL 6.2-12.0 [facility] Determination of erythrocyte mean corpuscular volume (MCV)Ordered By: Jean Morales on 01-25-2023 MCV (RBC) [Entitic vol] 93.1 fL 81-[address] [facility] Hematocrit Auto (Bld) [Volum e fraction]Ordered By: Jean Morales on 01-25-2023 Hematocrit (Bld) [Volume fraction] 36.3 % 37-47 [facility] Laboratory - Chemistry and C hemistry - challengeOrdered By: Valentina Palomares on 01-25-2023 Magnesium [Mass/Vol] 1.2 mg/dL 1.6-2.6 [facility] Comment on above: Moderate Hemolysis, Result may be falsely increased. Laboratory - Chemistry and C hemistry - challengeOrdered By: Jean Morales on 01-25-2023 CO2 [Moles/Vol] 28.0 mmol/L 21.0-32.0 [facility] Urea nitrogen/Creatinine [Mass ratio] 22.5 mg/mg 10-20 [facility] Laboratory - Hematology and Cell countsOrdered By: Jean Morales on 01-25-2023 Erythrocyte distribution width (RBC) [Entitic vol] 44.9 fL 35.1-43.9 [facility] Erythrocyte distribution width (RBC) [Ratio] 13.2 % 11.6-14.6 [facility] Immature granulocytes/100 WBC (Bld) 0.200 % 0.0-0.9 [facility] Comment on above: IG% - Immature Granu locytes (promyelocytes, myelocytes and metamyelocytes) > 1% indicates that a LEFT SHIFT is Present. MCH (RBC) [Entitic mass] 31.3 pg 27.0-32.0 [facility] Nucleated RBC/100 WBC (Bld) [Ratio] 0 % 0-5 [facility] MCHC Auto (RBC) [Mass/Vol]Or dered By: Jean Morales on 01-25-2023 MCHC (RBC) [Mass/Vol] 33.6 g/dL 32-36 [facility] No Panel InformationOrdered By: Valentina Palomares on 01-25-2023 Troponin I High Sensitivity 13 pg/mL 3.0-54.0 [facility] Comment on above: Please Note: New Kathy t Units and Gender Specific Reference Ranges. For more information see Policy Stat Procedure [place] High Sensitivity Troponin (TNIH) and attachments. No Panel InformationOrdered By: Jean Morales on 01-25-2023 Troponin I High Sensitivity 17 pg/mL 3.0-54.0 [facility] Comment on above: Please Note: New Kathy t Units and Gender Specific Reference Ranges. For more information see Policy Stat Procedure [place] High Sensitivity Troponin (TNIH) and attachments. Estimated Creatinine Clearance Calc 43.48 ml/min [facility] Estimated GFR (MDRD) Amer 88 mL/min >60 [facility] Comment on above: GFR Calc Estimated GFR (MDRD) Non-Af Amer 73 mL/min >60 [facility] Comment on above: Non- GFR Calc Platelets bldOrdered By: Shay Morales on 01-25-2023 Platelets (Bld) [#/Vol] 270 10*3/uL 150-450 [facility] Serum or plasma calcium anthony urement (mass/volume)Ordered By: Jean Morales on 01-25-2023 Calcium [Mass/Vol] 9.0 mg/dL 8.5-10.1 [facility] Serum or plasma creatinine m easurement (mass/volume)Ordered By: Jean Morales on 01-25-2023 Creatinine [Mass/Vol] 0.80 mg/dL 0.55-1.02 [facility] Comment on above: The validity of the calculated GFR & GFRAA in patients over 70 years has not been determined. Clinical correlation is essential. Serum or plasma urea nitroge n measurement (mass/volume)Ordered By: Jean Morales on 01-25-2023 Urea nitrogen [Mass/Vol] 18 mg/dL 7-18 [facility] Thin prep Papanicolaou smear with manual screeningOrdered By: Jean Morales on 01-25-2023 Thin prep Papanicolaou smear with manual screening 4 5-15 [facility] Basophil percentageOrdered B y: Dr. Nava on 10-18-2022 WBC (Bld) [#/Vol] 5.3 10*3/uL 4.4-11.0 [facility] Blood erythrocytes count (nu mber/volume)Ordered By: Dr. Nava on 10-18-2022 RBC (Bld) [#/Vol] 4.14 10*6/uL 4.2-5.4 [facility] Blood hemoglobin measurement (mass/volume)Ordered By: Dr. Nava on 10-18-2022 Hemoglobin (Bld) [Mass/Vol] 12.7 g/dL 12.0-15.0 [facility] Blood platelet mean volumeOr dered By: Dr. Nava on 10-18-2022 Platelet mean volume (Bld) [Entitic vol] 9.4 fL 6.2-12.0 [facility] Determination of erythrocyte mean corpuscular volume (MCV)Ordered By: Dr. Nava on 10-18-2022 MCV (RBC) [Entitic vol] 94.7 fL 81-[address] [facility] Hematocrit Auto (Bld) [Volum e fraction]Ordered By: Dr. Nava on 10-18-2022 Hematocrit (Bld) [Volume fraction] 39.2 % 37-47 [facility] Laboratory - Hematology and Cell countsOrdered By: Dr. Nava on 10-18-2022 Erythrocyte distribution width (RBC) [Entitic vol] 42.6 fL 35.1-43.9 [facility] Erythrocyte distribution width (RBC) [Ratio] 12.2 % 11.6-14.6 [facility] MCH (RBC) [Entitic mass] 30.7 pg 27.0-32.0 [facility] MCHC Auto (RBC) [Mass/Vol]Or dered By: Dr. Nava on 10-18-2022 MCHC (RBC) [Mass/Vol] 32.4 g/dL 32-36 [facility] Platelets bldOrdered By: Dr. Nava on 10-18-2022 Platelets (Bld) [#/Vol] 277 10*3/uL 150-450 [facility] Culture, urineOrdered By: Dr Olga Bailey on 08-27-2022 Bacteria identified Cx Nom (U) Culture exhibits no growth. [facility] Basophil percentageOrdered B y: Dr. Bailey on 08-25-2022 Basophil percentage 0 SEEN /hpf 0-5 [facility] Bilirubin Test strip Ql (U)O rdered By: Dr. Bailey on 08-25-2022 Bilirubin Ql (U) Negative Negative [facility] Ketones Test strip Ql (U)Ord ered By: Dr. Bailey on 08-25-2022 Ketones Ql (U) Negative Negative [facility] Mucus LM Ql (Urine sed)Order ed By: Dr. Bailey on 08-25-2022 Mucus Ql (Urine sed) 0 SEEN /hpf [facility] Nitrite Test strip Ql (U)Ord ered By: Dr. Bailey on 08-25-2022 Nitrite Ql (U) Negative Negative [facility] Protein Test strip Ql (U)Ord ered By: Dr. Bailey on 08-25-2022 Protein Ql (U) Negative Negative [facility] Squamous epithelial cells de tection in urine sediment by light microscopyOrdered By: Dr. Bailey on 08-25-2022 Epithelial cells.squamous LM Ql (Urine sed) 0 SEEN /hpf 5-10 [facility] Urine blood detectionOrdered By: Dr. Bailey on 08-25-2022 RBC Ql (U) 10 /ul Negative [facility] RBC Ql (U) 0-5 SEEN /hpf 0-5 [facility] Urine clarityOrdered By: Dr. Bailey on 08-25-2022 Clarity (U) Clear Clear [facility] Urine color determinationOrd ered By: Dr. Bailey on 08-25-2022 Color (U) Yellow Yellow [facility] Urine glucose detectionOrder ed By: Dr. Bailey on 08-25-2022 Glucose Ql (U) Normal mg/dl Normal [facility] Urine leukocyte esterase det ection by dipstickOrdered By: Dr. Bailey on 08-25-2022 Leukocyte esterase Test strip Ql (U) Negative Negative [facility] Urine pHOrdered By: Dr. Atul schmidt on 08-25-2022 pH (U) 7.0 [pH] 5.0 - 8.0 [facility] Urine sediment bacteria coun t by microscopy (number/high power field)Ordered By: Dr. Bailey on 08-25-2022 Bacteria LM.HPF (Urine sed) [#/Area] 0 /[HPF] None Seen [facility] Urine specific gravity measu rementOrdered By: Dr. Bailey on 08-25-2022 Specific gravity (U) [Rel density] 1.010 1.002-1.030 [facility] Urobilinogen Auto test strip Ql (U)Ordered By: Dr. Bailey on 08-25-2022 Urobilinogen Ql (U) Normal mg/dl Normal [facility] Absolute lymphocyte countOrd ered By: Dr. Bailey on 08-12-2022 Lymphocytes Auto (Unsp spec) [#/Vol] 1.85 10*3/uL 0.83-4.51 [facility] Basophil percentageOrdered B y: Dr. Baiely on 08-12-2022 Basophils/100 WBC (Bld) 0.6 % 0-[address] [facility] Bilirubin [Mass/Vol] 0.40 mg/dL 0.20-1.00 [facility] Comment on above: For patients on eltr ombopag therapy, use of Dimension [place] TBIL is not recommended. Chloride [Moles/Vol] 101 mmol/L 98-107 [facility] Eosinophils/100 WBC (Bld) 6.3 % 0-5 [facility] Glucose [Mass/Vol] 102 mg/dL 74-106 [facility] Comment on above: Fasting Glucose resu lt from 100 to 125 mg/dL suggests IMPAIRED HOMEOSTASIS per A.D.A. criteria. Neutrophils (Bld) [#/Vol] 3.3 10*3/uL 2.0-7.7 [facility] Neutrophils/100 WBC (Bld) 53.0 % 47-70 [facility] Potassium [Moles/Vol] 3.9 mmol/L 3.5-5.1 [facility] Protein [Mass/Vol] 6.9 g/dL 6.4-8.2 [facility] Sodium [Moles/Vol] 136 mmol/L 136-145 [facility] WBC (Bld) [#/Vol] 6.2 10*3/uL 4.4-11.0 [facility] Blood erythrocytes count (nu mber/volume)Ordered By: Dr. Bailey on 08-12-2022 RBC (Bld) [#/Vol] 4.27 10*6/uL 4.2-5.4 [facility] Blood hemoglobin measurement (mass/volume)Ordered By: Dr. Bailey on 08-12-2022 Hemoglobin (Bld) [Mass/Vol] 13.2 g/dL 12.0-15.0 [facility] Blood lymphocytes/100 leukoc ytesOrdered By: Dr. Bailey on 08-12-2022 Lymphocytes/100 WBC (Bld) 29.8 % 19-41 [facility] Blood monocytes/100 leukocyt esOrdered By: Dr. Bailey on 08-12-2022 Monocytes/100 WBC (Bld) 10.0 % 0-10 [facility] Blood platelet mean volumeOr dered By: Dr. Bailey on 08-12-2022 Platelet mean volume (Bld) [Entitic vol] 9.6 fL 6.2-12.0 [facility] Determination of erythrocyte mean corpuscular volume (MCV)Ordered By: Dr. Bailey on 08-12-2022 MCV (RBC) [Entitic vol] 94.8 fL 81-[address] [facility] Hematocrit Auto (Bld) [Volum e fraction]Ordered By: Dr. Bailey on 08-12-2022 Hematocrit (Bld) [Volume fraction] 40.5 % 37-47 [facility] Laboratory - Chemistry and C hemistry - challengeOrdered By: Dr. Bailey on 08-12-2022 ALP [Catalytic activity/Vol] 75 U/L 45-117 [facility] ALT [Catalytic activity/Vol] 14 U/L 13-56 [facility] CO2 [Moles/Vol] 27.0 mmol/L 21.0-32.0 [facility] Cobalamin (Vitamin B12) [Mass/Vol] 1178 pg/mL 211-911 [facility] Globulin (S) [Mass/Vol] 3.0 g/dL 2.2-4.[address] [facility] Urea nitrogen/Creatinine [Mass ratio] 17.9 mg/mg 10-20 [facility] Laboratory - Hematology and Cell countsOrdered By: Dr. Bailey on 08-12-2022 Erythrocyte distribution width (RBC) [Entitic vol] 42.5 fL 35.1-43.9 [facility] Erythrocyte distribution width (RBC) [Ratio] 12.2 % 11.6-14.6 [facility] Immature granulocytes/100 WBC (Bld) 0.300 % 0.0-0.9 [facility] Comment on above: IG% - Immature Granu locytes (promyelocytes, myelocytes and metamyelocytes) > 1% indicates that a LEFT SHIFT is Present. MCH (RBC) [Entitic mass] 30.9 pg 27.0-32.0 [facility] Nucleated RBC/100 WBC (Bld) [Ratio] 0 % 0-5 [facility] MCHC Auto (RBC) [Mass/Vol]Or dered By: Dr. Bailey on 08-12-2022 MCHC (RBC) [Mass/Vol] 32.6 g/dL 32-36 [facility] No Panel InformationOrdered By: Dr. Bailey on 08-12-2022 Estimated GFR (MDRD) Amer 83 mL/min >60 [facility] Comment on above: GFR Calc Estimated GFR (MDRD) Non-Af Amer 69 mL/min >60 [facility] Comment on above: Non- GFR Calc Platelets bldOrdered By: Dr. Bailey on 08-12-2022 Platelets (Bld) [#/Vol] 257 10*3/uL 150-450 [facility] Serum or plasma albumin anthony urement (mass/volume)Ordered By: Dr. Bailey on 08-12-2022 Albumin [Mass/Vol] 3.9 g/dL 3.2-5.0 [facility] Serum or plasma albumin/glob ulin mass ratioOrdered By: Dr. Bailey on 08-12-2022 Albumin/Globulin [Mass ratio] 1.3 {ratio} 0.9-2.4 [facility] Serum or plasma calcium anthony urement (mass/volume)Ordered By: Dr. Bailey on 08-12-2022 Calcium [Mass/Vol] 9.3 mg/dL 8.5-10.1 [facility] Serum or plasma creatinine m easurement (mass/volume)Ordered By: Dr. Bailey on 08-12-2022 Creatinine [Mass/Vol] 0.84 mg/dL 0.55-1.02 [facility] Comment on above: The validity of the calculated GFR & GFRAA in patients over 70 years has not been determined. Clinical correlation is essential. Serum or plasma ferritin abrahan surement (mass/volume)Ordered By: Dr. Bailey on 08-12-2022 Ferritin [Mass/Vol] 105 ng/mL 8-252 [facility] Serum or plasma folate measu rement (mass/volume)Ordered By: Dr. Bailey on 08-12-2022 Folate [Mass/Vol] 6.10 ng/mL 3.1-55.4 [facility] Serum or plasma urea nitroge n measurement (mass/volume)Ordered By: Dr. Bailey on 08-12-2022 Urea nitrogen [Mass/Vol] 15 mg/dL 7-18 [facility] Thin prep Papanicolaou smear with manual screeningOrdered By: Dr. Bailey on 08-12-2022 Thin prep Papanicolaou smear with manual screening 19 U/L 15-37 [facility] Thin prep Papanicolaou smear with manual screening 8 5-15 [facility] Culture, urineOrdered By: Dr Olga Bailey on 07-15-2022 Bacteria identified Cx Nom (U) Positive [facility] Basophil percentageOrdered B y: Dr. Bailey on 07-13-2022 Basophil percentage 0 SEEN /hpf 0-5 [facility] Bilirubin Test strip Ql (U)O rdered By: Dr. Bailey on 07-13-2022 Bilirubin Ql (U) Negative Negative [facility] Ketones Test strip Ql (U)Ord ered By: Dr. Bailey on 07-13-2022 Ketones Ql (U) Negative Negative [facility] Mucus LM Ql (Urine sed)Order ed By: Dr. Bailey on 07-13-2022 Mucus Ql (Urine sed) 0 SEEN /hpf [facility] Nitrite Test strip Ql (U)Ord ered By: Dr. Bailey on 07-13-2022 Nitrite Ql (U) Negative Negative [facility] Protein Test strip Ql (U)Ord ered By: Dr. Bailey on 07-13-2022 Protein Ql (U) 30 mg/dl Negative [facility] Squamous epithelial cells de tection in urine sediment by light microscopyOrdered By: Dr. Bailey on 07-13-2022 Epithelial cells.squamous LM Ql (Urine sed) 0 SEEN /hpf 5-10 [facility] Urine blood detectionOrdered By: Dr. Bailye on 07-13-2022 RBC Ql (U) 10 /ul Negative [facility] RBC Ql (U) 0 SEEN /hpf 0-5 [facility] Urine clarityOrdered By: Dr. Bailey on 07-13-2022 Clarity (U) Clear Clear [facility] Urine color determinationOrd ered By: Dr. Bailey on 07-13-2022 Color (U) Straw Yellow [facility] Urine glucose detectionOrder ed By: Dr. Bailey on 07-13-2022 Glucose Ql (U) Normal mg/dl Normal [facility] Urine leukocyte esterase det ection by dipstickOrdered By: Dr. Bailey on 07-13-2022 Leukocyte esterase Test strip Ql (U) Negative Negative [facility] Urine pHOrdered By: Dr. Atul schmidt on 07-13-2022 pH (U) 8.0 [pH] 5.0 - 8.0 [facility] Urine sediment bacteria coun t by microscopy (number/high power field)Ordered By: Dr. Bailey on 07-13-2022 Bacteria LM.HPF (Urine sed) [#/Area] 0 /[HPF] None Seen [facility] Urine specific gravity measu rementOrdered By: Dr. Bailey on 07-13-2022 Specific gravity (U) [Rel density] 1.015 1.002-1.030 [facility] Urobilinogen Auto test strip Ql (U)Ordered By: Dr. Bailey on 07-13-2022 Urobilinogen Ql (U) Normal mg/dl Normal [facility] Absolute lymphocyte countOrd ered By: Dr. Bailey on 07-06-2022 Lymphocytes Auto (Unsp spec) [#/Vol] 2.47 10*3/uL 0.83-4.51 [facility] Basophil percentageOrdered B y: Dr. Bailey on 07-06-2022 Basophils/100 WBC (Bld) 0.5 % 0-[address] [facility] Bilirubin [Mass/Vol] 0.30 mg/dL 0.20-1.00 [facility] Comment on above: For patients on eltr ombopag therapy, use of Dimension [place] TBIL is not recommended. Chloride [Moles/Vol] 103 mmol/L 98-107 [facility] Eosinophils/100 WBC (Bld) 2.5 % 0-5 [facility] Glucose [Mass/Vol] 108 mg/dL 74-106 [facility] Comment on above: Fasting Glucose resu lt from 100 to 125 mg/dL suggests IMPAIRED HOMEOSTASIS per A.D.A. criteria. Neutrophils (Bld) [#/Vol] 4.3 10*3/uL 2.0-7.7 [facility] Neutrophils/100 WBC (Bld) 54.5 % 47-70 [facility] Potassium [Moles/Vol] 3.3 mmol/L 3.5-5.1 [facility] Protein [Mass/Vol] 6.5 g/dL 6.4-8.2 [facility] Sodium [Moles/Vol] 138 mmol/L 136-145 [facility] WBC (Bld) [#/Vol] 7.9 10*3/uL 4.4-11.0 [facility] Blood erythrocytes count (nu mber/volume)Ordered By: Dr. Bailey on 07-06-2022 RBC (Bld) [#/Vol] 4.21 10*6/uL 4.2-5.4 [facility] Blood hemoglobin measurement (mass/volume)Ordered By: Dr. Bailey on 07-06-2022 Hemoglobin (Bld) [Mass/Vol] 13.6 g/dL 12.0-15.0 [facility] Blood lymphocytes/100 leukoc ytesOrdered By: Dr. Bailey on 07-06-2022 Lymphocytes/100 WBC (Bld) 31.5 % 19-41 [facility] Blood monocytes/100 leukocyt esOrdered By: Dr. Bailey on 07-06-2022 Monocytes/100 WBC (Bld) 10.6 % 0-[address] [facility] Blood platelet mean volumeOr dered By: Dr. Bailey on 07-06-2022 Platelet mean volume (Bld) [Entitic vol] 9.6 fL 6.2-12.0 [facility] Determination of erythrocyte mean corpuscular volume (MCV)Ordered By: Dr. Bailey on 07-06-2022 MCV (RBC) [Entitic vol] 97.9 fL 81-[address] [facility] Hematocrit Auto (Bld) [Volum e fraction]Ordered By: Dr. Bailey on 07-06-2022 Hematocrit (Bld) [Volume fraction] 41.2 % 37-47 [facility] Laboratory - Chemistry and C hemistry - challengeOrdered By: Dr. Bailey on 07-06-2022 ALP [Catalytic activity/Vol] 70 U/L 45-117 [facility] ALT [Catalytic activity/Vol] 11 U/L 13-56 [facility] CO2 [Moles/Vol] 27.0 mmol/L 21.0-32.0 [facility] Cobalamin (Vitamin B12) [Mass/Vol] 448 pg/mL 211-911 [facility] Globulin (S) [Mass/Vol] 2.7 g/dL 2.2-4.2 [facility] Magnesium [Mass/Vol] 1.8 mg/dL 1.6-2.6 [facility] Urea nitrogen/Creatinine [Mass ratio] 16.4 mg/mg 10-20 [facility] Laboratory - Hematology and Cell countsOrdered By: Dr. Bailey on 07-06-2022 Erythrocyte distribution width (RBC) [Entitic vol] 45.1 fL 35.1-43.9 [facility] Erythrocyte distribution width (RBC) [Ratio] 12.7 % 11.6-14.6 [facility] Immature granulocytes/100 WBC (Bld) 0.400 % 0.0-0.9 [facility] Comment on above: IG% - Immature Granu locytes (promyelocytes, myelocytes and metamyelocytes) > 1% indicates that a LEFT SHIFT is Present. MCH (RBC) [Entitic mass] 32.3 pg 27.0-32.0 [facility] Nucleated RBC/100 WBC (Bld) [Ratio] 0 % 0-5 [facility] MCHC Auto (RBC) [Mass/Vol]Or dered By: Dr. Baiely on 07-06-2022 MCHC (RBC) [Mass/Vol] 33.0 g/dL 32-36 [facility] No Panel InformationOrdered By: Dr. Bailey on 07-06-2022 Estimated GFR (MDRD) Amer 76 mL/min >60 [facility] Comment on above: GFR Calc Estimated GFR (MDRD) Non-Af Amer 63 mL/min >60 [facility] Comment on above: Non- GFR Calc Thyroid Stimulating Hormone (TSH) 1.51 uIU/mL 0.358-3.74 [facility] Platelets bldOrdered By: Dr. Bailey on 07-06-2022 Platelets (Bld) [#/Vol] 289 10*3/uL 150-450 [facility] Serum or plasma albumin anthony urement (mass/volume)Ordered By: Dr. Bailey on 07-06-2022 Albumin [Mass/Vol] 3.8 g/dL 3.2-5.0 [facility] Serum or plasma albumin/glob ulin mass ratioOrdered By: Dr. Bailey on 07-06-2022 Albumin/Globulin [Mass ratio] 1.4 {ratio} 0.9-2.4 [facility] Serum or plasma calcium anthony urement (mass/volume)Ordered By: Dr. Bailey on 07-06-2022 Calcium [Mass/Vol] 9.6 mg/dL 8.5-10.1 [facility] Serum or plasma creatinine m easurement (mass/volume)Ordered By: Dr. Bailey on 07-06-2022 Creatinine [Mass/Vol] 0.92 mg/dL 0.55-1.02 [facility] Comment on above: The validity of the calculated GFR & GFRAA in patients over 70 years has not been determined. Clinical correlation is essential. Serum or plasma ferritin abrahan surement (mass/volume)Ordered By: Dr. Bailey on 07-06-2022 Ferritin [Mass/Vol] 85 ng/mL 8-252 [facility] Serum or plasma folate measu rement (mass/volume)Ordered By: Dr. Bailey on 07-06-2022 Folate [Mass/Vol] 4.40 ng/mL 3.1-55.4 [facility] Serum or plasma urea nitroge n measurement (mass/volume)Ordered By: Dr. Bailey on 07-06-2022 Urea nitrogen [Mass/Vol] 15 mg/dL 7-18 [facility] Thin prep Papanicolaou smear with manual screeningOrdered By: Dr. Bailey on 07-06-2022 Thin prep Papanicolaou smear with manual screening 15 U/L 15-37 [facility] Thin prep Papanicolaou smear with manual screening 8 5-15 [facility] STREP A MOLECULAR (POC)on Procedural Control Valid [facility] Strep A (POCT) Negative Negative [facility] [place] HEPATOBILIARY W EF AND/OR RXon 05-12-2022 [facility] No Panel Informationon 04-11 [facility] Absolute lymphocyte counton 03-03-2022 Lymphocytes Auto (Unsp spec) [#/Vol] 1.87 10*3/uL 0.83-4.51 [facility] Work Phone: Basophil percentageon 2021 Basophils/100 WBC (Bld) 0.6 % 0-[address] [facility] Work Phone: Bilirubin [Mass/Vol] 0.30 mg/dL 0.20-1.00 [facility] Work Phone: Comment on above: For patients on eltr ombopag therapy, use of Dimension [place] TBIL is not recommended. Chloride [Moles/Vol] 101 mmol/L 98-107 [facility] Work Phone: Eosinophils/100 WBC (Bld) 7.4 % 0-5 [facility] Work Phone: Glucose [Mass/Vol] 100 mg/dL 74-106 [facility] Work Phone: Comment on above: Fasting Glucose resu lt from 100 to 125 mg/dL suggests IMPAIRED HOMEOSTASIS per A.D.A. criteria. Lactate [Moles/Vol] 0.5 mmol/L 0.4-2.0 [facility] Work Phone: Neutrophils (Bld) [#/Vol] 4.0 10*3/uL 2.0-7.7 [facility] Work Phone: Neutrophils/100 WBC (Bld) 56.1 % 47-70 [facility] Work Phone: Potassium [Moles/Vol] 3.6 mmol/L 3.5-5.1 [facility] Work Phone: Protein [Mass/Vol] 7.1 g/dL 6.4-8.2 [facility] Work Phone: [phone] Sodium [Moles/Vol] 138 mmol/L 136-145 [facility] Work Phone: WBC (Bld) [#/Vol] 7.2 10*3/uL 4.4-11.0 [facility] Work Phone: Blood erythrocytes count (nu mber/volume)on 03-03-2022 RBC (Bld) [#/Vol] 4.22 10*6/uL 4.2-5.4 [facility] Work Phone: Blood hemoglobin measurement (mass/volume)on 03-03-2022 Hemoglobin (Bld) [Mass/Vol] 13.8 g/dL 12.0-15.0 [facility] Work Phone: Blood lymphocytes/100 leukoc yteson 03-03-2022 Lymphocytes/100 WBC (Bld) 26.1 % 19-41 [facility] Work Phone: Blood monocytes/100 leukocyt eson 03-03-2022 Monocytes/100 WBC (Bld) 9.5 % 0-[address] [facility] Work Phone: Blood platelet mean volumeon 03-03-2022 Platelet mean volume (Bld) [Entitic vol] 9.3 fL 6.2-12.0 [facility] Work Phone: Determination of erythrocyte mean corpuscular volume (MCV)on 03-03-2022 MCV (RBC) [Entitic vol] 99.5 fL 81-[address] [facility] Work Phone: Hematocrit Auto (Bld) [Volum e fraction]on 03-03-2022 Hematocrit (Bld) [Volume fraction] 42.0 % 37-47 [facility] Work Phone: Laboratory - Chemistry and C hemistry - challengeon 03-03-2022 ALP [Catalytic activity/Vol] 65 U/L 45-117 [facility] Work Phone: ALT [Catalytic activity/Vol] 13 U/L 13-56 [facility] Work Phone: CO2 [Moles/Vol] 28.0 mmol/L 21.0-32.0 [facility] Work Phone: Globulin (S) [Mass/Vol] 3.2 g/dL 2.2-4.[address] [facility] Work Phone: Lipase [Catalytic activity/Vol] 183 U/L 73-393 [facility] Work Phone: Urea nitrogen/Creatinine [Mass ratio] 22.4 mg/mg 10-20 [facility] Work Phone: Laboratory - Hematology and Cell countson 03-03-2022 Erythrocyte distribution width (RBC) [Entitic vol] 46.5 fL 35.1-43.9 [facility] Work Phone: Erythrocyte distribution width (RBC) [Ratio] 12.8 % 11.6-14.6 [facility] Work Phone: Immature granulocytes/100 WBC (Bld) 0.300 % 0.0-0.9 [facility] Work Phone: Comment on above: IG% - Immature Granu locytes (promyelocytes, myelocytes and metamyelocytes) > 1% indicates that a LEFT SHIFT is Present. MCH (RBC) [Entitic mass] 32.7 pg 27.0-32.0 [facility] Work Phone: Nucleated RBC/100 WBC (Bld) [Ratio] 0 % 0-5 [facility] Work Phone: MCHC Auto (RBC) [Mass/Vol]on 03-03-2022 MCHC (RBC) [Mass/Vol] 32.9 g/dL 32-36 [facility] Work Phone: No Panel Informationon 03-03 Estimated Creatinine Clearance Calc 40.09 ml/min [facility] Work Phone: Estimated GFR (MDRD) Amer 70 mL/min >60 [facility] Work Phone: Comment on above: GFR Calc Estimated GFR (MDRD) Non-Af Amer 58 mL/min >60 [facility] Work Phone: Comment on above: Non- GFR Calc Troponin I High Sensitivity 17 pg/mL 3.0-54.0 [facility] Work Phone: Comment on above: Please Note: New Kathy t Units and Gender Specific Reference Ranges. For more information see Policy Stat Procedure [place] High Sensitivity Troponin (TNIH) and attachments. Platelets bldon 03-03-2022 Platelets (Bld) [#/Vol] 286 10*3/uL 150-450 [facility] Work Phone: Serum or plasma albumin anthony urement (mass/volume)on 03-03-2022 Albumin [Mass/Vol] 3.9 g/dL 3.2-5.0 [facility] Work Phone: Serum or plasma albumin/glob ulin mass ratioon 03-03-2022 Albumin/Globulin [Mass ratio] 1.2 {ratio} 0.9-2.4 [facility] Work Phone: Serum or plasma calcium anthony urement (mass/volume)on 03-03-2022 Calcium [Mass/Vol] 9.5 mg/dL 8.5-10.1 [facility] Work Phone: Serum or plasma creatinine m easurement (mass/volume)on 03-03-2022 Creatinine [Mass/Vol] 0.98 mg/dL 0.55-1.02 [facility] Work Phone: Comment on above: The validity of the calculated GFR & GFRAA in patients over 70 years has not been determined. Clinical correlation is essential. Serum or plasma urea nitroge n measurement (mass/volume)on 03-03-2022 Urea nitrogen [Mass/Vol] 22 mg/dL 7-18 [facility] Work Phone: Thin prep Papanicolaou smear with manual screeningon 03-03-2022 Thin prep Papanicolaou smear with manual screening 14 U/L 15-37 [facility] Work Phone: Thin prep Papanicolaou smear with manual screening 9 5-15 [facility] Work Phone: Absolute lymphocyte counton 12-31-2021 Lymphocytes Auto (Unsp spec) [#/Vol] 1.24 10*3/uL 0.83-4.51 [facility] Work Phone: Basophil percentageon 2021 Basophils/100 WBC (Bld) 0.8 % 0-[address] [facility] Work Phone: Bilirubin [Mass/Vol] 0.30 mg/dL 0.20-1.00 [facility] Work Phone: Comment on above: For patients on eltr ombopag therapy, use of Dimension [place] TBIL is not recommended. Chloride [Moles/Vol] 103 mmol/L 98-107 [facility] Work Phone: Eosinophils/100 WBC (Bld) 6.3 % 0-5 [facility] Work Phone: Glucose [Mass/Vol] 128 mg/dL 74-106 [facility] Work Phone: Comment on above: Fasting Glucose resu lt greater than or equal to 126 mg/dL suggests DIABETES MELLITUS per A.D.A. criteria. Neutrophils (Bld) [#/Vol] 3.9 10*3/uL 2.0-7.7 [facility] Work Phone: Neutrophils/100 WBC (Bld) 62.7 % 47-70 [facility] Work Phone: [phone] Potassium [Moles/Vol] 3.8 mmol/L 3.5-5.1 [facility] Work Phone: Protein [Mass/Vol] 7.0 g/dL 6.4-8.2 [facility] Work Phone: [phone] Sodium [Moles/Vol] 140 mmol/L 136-145 [facility] Work Phone: WBC (Bld) [#/Vol] 6.2 10*3/uL 4.4-11.0 [facility] Work Phone: Blood erythrocytes count (nu mber/volume)on 12-31-2021 RBC (Bld) [#/Vol] 4.14 10*6/uL 4.2-5.4 [facility] [facility] Work Phone: Blood hemoglobin measurement (mass/volume)on 12-31-2021 Hemoglobin (Bld) [Mass/Vol] 13.1 g/dL 12.0-15.0 [facility] Work Phone: Blood lymphocytes/100 leukoc yteson 12-31-2021 Lymphocytes/100 WBC (Bld) 20.0 % 19-41 [facility] Work Phone: Blood monocytes/100 leukocyt eson 12-31-2021 Monocytes/100 WBC (Bld) 10.0 % 0-[address] [facility] Work Phone: Blood platelet mean volumeon 12-31-2021 Platelet mean volume (Bld) [Entitic vol] 9.5 fL 6.2-12.0 [facility] Work Phone: Determination of erythrocyte mean corpuscular volume (MCV)on 12-31-2021 MCV (RBC) [Entitic vol] 100.0 fL 81-[address] [facility] Work Phone: Erythrocyte sedimentation ra richard 12-31-2021 ESR (Bld) [Velocity] 6 mm/h 0-30 [facility] Work [facility]: Hematocrit Auto (Bld) [Volum e fraction]on 12-31-2021 Hematocrit (Bld) [Volume fraction] 41.4 % 37-47 [facility] Work Phone: Laboratory - Chemistry and C hemistry - challengeon 12-31-2021 ALP [Catalytic activity/Vol] 57 U/L 45-117 [facility] Work Phone: ALT [Catalytic activity/Vol] 13 U/L 13-56 [facility] Work Phone: CO2 [Moles/Vol] 29.0 mmol/L 21.0-32.0 [facility] Work Phone: Cobalamin (Vitamin B12) [Mass/Vol] 320 pg/mL 211-911 [facility] Work Phone: Globulin (S) [Mass/Vol] 3.1 g/dL 2.2-4.[address] [facility] Work Phone: Urea nitrogen/Creatinine [Mass ratio] 20.6 mg/mg 10-20 [facility] Work Phone: Laboratory - Hematology and Cell countson 12-31-2021 Erythrocyte distribution width (RBC) [Entitic vol] 45.7 fL 35.1-43.9 [facility] Work Phone: Erythrocyte distribution width (RBC) [Ratio] 12.5 % 11.6-14.6 [facility] Work Phone: Immature granulocytes/100 WBC (Bld) 0.200 % 0.0-0.9 [facility] Work Phone: Comment on above: IG% - Immature Granu locytes (promyelocytes, myelocytes and metamyelocytes) > 1% indicates that a LEFT SHIFT is Present. MCH (RBC) [Entitic mass] 31.6 pg 27.0-32.0 [facility] Work Phone: Nucleated RBC/100 WBC (Bld) [Ratio] 0 % 0-5 [facility] Work Phone: MCHC Auto (RBC) [Mass/Vol]on 12-31-2021 MCHC (RBC) [Mass/Vol] 31.6 g/dL 32-36 [facility] Work Phone: No Panel Informationon 12-31 Estimated GFR (MDRD) Amer 67 mL/min >60 [facility] Work Phone: Comment on above: GFR Calc Estimated GFR (MDRD) Non-Af Amer 55 mL/min >60 [facility] Work Phone: Comment on above: Non- GFR Calc Thyroid Stimulating Hormone (TSH) 2.10 uIU/mL 0.358-3.74 [facility] Work Phone: Platelets bldon 12-31-2021 Platelets (Bld) [#/Vol] 327 10*3/uL 150-450 [facility] Work Phone: Serum or plasma albumin anthony urement (mass/volume)on 12-31-2021 Albumin [Mass/Vol] 3.9 g/dL 3.2-5.0 [facility] Work Phone: Serum or plasma albumin/glob ulin mass ratioon 12-31-2021 Albumin/Globulin [Mass ratio] 1.3 {ratio} 0.9-2.4 [facility] Work Phone: Serum or plasma calcium anthony urement (mass/volume)on 12-31-2021 Calcium [Mass/Vol] 10.0 mg/dL 8.5-10.1 [facility] Work Phone: Serum or plasma creatinine m easurement (mass/volume)on 12-31-2021 Creatinine [Mass/Vol] 1.02 mg/dL 0.55-1.02 [facility] Work Phone: Comment on above: The validity of the calculated GFR & GFRAA in patients over 70 years has not been determined. Clinical correlation is essential. Serum or plasma folate measu rement (mass/volume)on 12-31-2021 Folate [Mass/Vol] 9.20 ng/mL 3.1-55.4 [facility] Work Phone: Serum or plasma urea nitroge n measurement (mass/volume)on 12-31-2021 Urea nitrogen [Mass/Vol] 21 mg/dL 7-18 [facility] Work Phone: Thin prep Papanicolaou smear with manual screeningon 12-31-2021 Thin prep Papanicolaou smear with manual screening 17 U/L 15-37 [facility] Work Phone: Thin prep Papanicolaou smear with manual screening 8 5-15 [facility] Work Phone: XR HIP BILATERAL 5V PEL/AP/L AT EACH HIPon 11-17-2021 [facility] XR HIP BILAT 5V PEL/AP/LAT E ACH HIPon 01-21-2021 [facility] ANES POSTPROC EVALon 021 ANES POSTPROC EVAL HNO ID: [id number] Author: Uche Madden MD Service: Anesthesiology Author Type: Anesthesiologist Type: Anesthesia Postprocedure Evaluation Filed: 12/22/2020 9:34 AM Note Text: POST ANESTHESIA EVALUATION NOTE : 1940 Procedure Summary Date: 12/22/20 Room / Location: AV PROCEDURE B / AV ENDO Anesthesia Start: 842 Anesthesia Stop: 917 Procedures: DESTRUCTION BY NEUROLYTIC AGENT PARAVERTEBRAL FACET JOINT NERVE(S) W/ IMAGING GUIDANCE LUMBAR SINGLE FACET JOINT (Left Back) DESTRUCTION BY NEUROLYTIC AGENT PARAVERTEBRAL FACET JOINT NERVE(S) W/ IMAGING GUIDANCE LUMBAR SACRAL 1ST ADD FACET JOINT (Left Back) DESTRUCTION BY NEUROLYTIC AGENT PARAVERTEBRAL FACET JOINT NERVE(S) W/ IMAGING GUIDANCE LUMBAR SACRAL 3RD ADD FACET JOINT (Left Back) Diagnosis: Lumbar spondylosis Surgeons: Germán Chinchilla DO Responsible Provider: Uche Madden MD Anesthesia Type: MAC ASA Status: 2 Anesthesia Type: MAC Last vitals Vitals Value Taken Time BP 141/85 12/22/20 0916 Temp 12/22/20 0934 Pulse 12/22/20 0934 Resp 16 12/22/20 0916 SpO2 100 % 12/22/20 0916 Post Anesthesia Patient Status Patient Evaluation: PACU. PACU/ICU Patient Condition: stable. Anticipated Disposition: phase 2 then home. Neurological Status: aware and responsive. Pulmonary Status: breathing comfortably on room air Airway Control: returned to baseline unsupported. Cardiovascular Status: stable. Pain Management: clinically adequate - multimodal analgesia pain management approach Postoperative Hydration: acceptable. Intraoperative Events: no significant anesthesia events Recommendation: continue current plan of care. No complications documented. SIGNATURE: Uche Madden MD PATIENT NAME: Sandie Ho DATE: December 22, 2020 TIME: 9:34 AM CSN: [id number] [facility] ANES PRE-OPon 12-22-2020 ANES PRE-OP HNO ID: [id number] Author: Uche Madden MD Service: Anesthesiology Author Type: Anesthesiologist Type: Anesthesia Preprocedure Evaluation Filed: 12/22/2020 7:59 AM Note Text: ANESTHESIOLOGY DAY OF SURGERY NOTE : 1940 Procedure(s) (LRB): DESTRUCTION BY NEUROLYTIC AGENT PARAVERTEBRAL FACET JOINT NERVE(S) W/ IMAGING GUIDANCE LUMBAR SINGLE FACET JOINT (Left) DESTRUCTION BY NEUROLYTIC AGENT PARAVERTEBRAL FACET JOINT NERVE(S) W/ IMAGING GUIDANCE LUMBAR SACRAL 1ST ADD FACET JOINT (Left) DESTRUCTION BY NEUROLYTIC AGENT PARAVERTEBRAL FACET JOINT NERVE(S) W/ IMAGING GUIDANCE LUMBAR SACRAL 3RD ADD FACET JOINT (Left) Surgeon(s): DO Adrian Hollins MD Estimated body mass index is 19.85 kg/m? as calculated from the following: Height as of 12/15/20: 167.6 cm (5' 6). Weight as of 12/15/20: 55.8 kg (123 lb). Most recent hematocrit and potassium results: HCT 32.1 12/11/2019 K 3.7 12/11/2019 Relevant Problems CARDIO (+) HUANG (dyspnea on exertion) GI (+) GERD (gastroesophageal reflux disease) -RENAL (+) Neoplasm of uncertain behavior of kidney NEURO-PSYCH (+) Headache, unspecified headache type (+) History of colonic polyps (+) History of compression fracture of spine (+) History of dislocation of hip PULMONARY (+) COPD (chronic obstructive pulmonary disease) (HCC) (+) HUANG (dyspnea on exertion) Other (+) Cervical arthritis (+) Secondary localized osteoarthrosis, pelvic region and thigh I - PHYSICAL EVALUATION AIRWAY Patient intubated: No. Mallampati: II. TM distance: >3 FB. Neck ROM: full ROM without neurological symptoms. Mouth opening: adequate. Short neck: no. Thick neck: no DENTAL Normal dental observations. Dental findings: teeth intact. Additional exam findings: no II - ANESTHESIA PLAN ASA Score: 2 Anesthetic Plan: MAC NPO Status: adequate Monitoring plan: Standard ASA. Postoperative analgesic plan: parenteral or oral opioids and multimodal analgesia. Anesthetic Risks, Benefits, Alternatives, Personnel Discussed. Consent obtained from: patient.Patient / Surrogate agrees to blood products: blood products not planned DNR status not reviewed with patient and/or family prior to surgery. Significant changes in the patient condition since the History and Physical, not otherwise documented in primary service progress note: no. Potential Anesthesia issues that may suggest increased risk of complications or contraindication to planned procedure: none. No vitals data found for the desired time range. Facility-Administered Medications as of 12/22/2020 Medication Dose Route Frequency - NaCl 0.9% iv infusion 30 mL/hr INTRAVENOUS CONTINUOUS Outpatient Medications as of 12/22/2020 Medication Sig - hydrocortisone 2.5 % ointment Apply to affected area on face 2 times daily as needed for 1-2 weeks after PDT - L-Methylfolate 15 mg tab Take 1 tablet by mouth once daily. - baclofen (LIORESAL) 10 mg tablet TAKE 1 TABLET BY MOUTH AT BEDTIME TO HELP MUSCLES RELAX - oxybutynin ER (DITROPAN XL) 10 mg 24 hr tablet TAKE 1 TABLET BY MOUTH ONCE DAILY AT SUPPER TIME - venlafaxine ER (EFFEXOR XR) 150 mg 24 hr capsule Take 150 mg by mouth. - pantoprazole DR (PROTONIX) 40 mg tablet Take 40 mg by mouth. - tiZANidine (ZANAFLEX) 4 mg tablet Take 1 tab when needed for headaches , up to one daily - Amoxicillin 500 mg tablet Take 6 tablets by mouth 1 hour before dental procedure and 2 tablets by mouth 6 hours after. - budesonide-formoterol (SYMBICORT) 160-4.5 mcg/actuation inhaler Inhale 2 Puffs as instructed twice daily. - albuterol HFA (PROVENTIL HFA, VENTOLIN HFA) 90 mcg/actuation inhaler INHALE 1 PUFF BY MOUTH EVERY 4 HOURS NEEDED AND 15 MINUTES PRIOR TO ACTIVITY - pantoprazole DR (PROTONIX) 40 mg tablet Take 1 tablet by mouth daily before dinner. (Patient taking differently: Take 40 mg by mouth daily before dinner. Pt taking 20mg ) - ondansetron (ZOFRAN) 4 mg tablet Take 0.5-1 tablets by mouth every 8 hours as needed for Nausea/Vomiting. - Cholecalciferol, Vitamin D3, 2,000 unit cap Take 1 capsule by mouth once daily. - CALCIUM CITRATE/VITAMIN D3 (CITRACAL + D ORAL) Take by mouth once daily. - Aspirin-Acetaminophen- Caffeine (EXCEDRIN MIGRAINE) 250-250-65 mg per tablet Take 1 tablet by mouth every 6 hours as needed (migraine). WBC (k/uL) Date Value 12/11/2019 13.19 (H) RBC (m/uL) Date Value 12/11/2019 3.18 (L) Hemoglobin (g/dL) Date Value 12/11/2019 10.3 (L) Hematocrit (%) Date Value 12/11/2019 32.1 (L) MCV (fL) Date Value 12/11/2019 100.9 (H) MCH (pG) Date Value 12/11/2019 32.4 MCHC (g/dL) Date Value 12/11/2019 32.1 RDW-CV (%) Date Value 12/11/2019 12.8 Platelet Count (k/uL) Date Value 12/11/2019 182 MPV (fL) Date Value 12/11/2019 9.3 Glucose (mg/dL) Date Value 12/11/2019 141 (H) BUN (mg/dL) Date Value 12/11/2019 10 Creatinine (mg/dL) Date (more content not included)... Normal [facility] HISTORY PHYSICALon 1 HISTORY PHYSICAL HNO ID: [id number] Author: Germán Chinchilla, DO Service: ? Author Type: Physician Type: HANDP Filed: 12/22/2020 8:41 AM Note Text: The contents accurately reflect the patient's condition with the following additions or revisions since the HANDP was completed. Lt lumbar radiofrequency ablation Examination indicates: Neuro: AOx3, answers questions appropriately. HEENT: Normal cephalic, atraumatic Eyes: no conjuntivitis Ears: Non hyperemic external auditory canal Nose: No nasoaural discharge noted Throat: no visible tracheal deviation noted CARDIAC: Normal S1 and S2; no rubs, murmurs, or gallops LUNGS: CTA b/l Abdomen: non tender. Extremities: No clubbing, cyanosis or edema noted Germán Chinchilla DO, IVONNE Normal [facility] OPERATIVE NOon 12-22-2020 OPERATIVE NO HNO ID: [id number] Author: Germán Chinchilla DO Service: ? Author Type: Physician Type: Operative Report Filed: 12/22/2020 9:24 AM Note Text: Pt presents for cooled radio frequency ablation for low back pain mostly on the lt side. Had diagnostic medial branch block done recently that had given desired relief. Continues to have low back pain. Wants to proceed with the previously scheduled injection. Consent obtained. Pt is aware of risks, benefits, alternatives, expected outcome, equipment and personnel. LT side was marked [facility] approved time out was performed identifying the site, side and level of procedure prior to start of procedure. The patient was offered a procedure / surgery at a [facility] facility. Patient and I have discussed in detail the risk of [...] surgery/procedure as indicated on the consent form. [facility] SURGERY [place] - ELECTIVE PROCEDURE Cooled Radio Frequency Ablation - Lumbar Lt side Technical Solutions Consultant: Dr. Adrian Gan Pre Operative Diagnosis: Lumbar spondylosis / low back pain Post Operative Diagnosis: Lumbar spondylosis / low back pain Sedation: MAC The risks and benefits of the procedure were discussed extensively with the patient. The verbal and written informed consent of the patient was obtained and the following procedure was performed: The patient was placed in the prone position on the fluoroscopic table. The patient's back was prepped in a sterile fashion. DuraPrep was used per skin prep guidelines. We waited 3 minutes by timer for the DuraPrep to dry before proceed with the procedure. Using fluoroscopic guidance the L5 vertebral body was definitively identified using the most caudal normal disc space labeled as L5-S1. The iliac crest was also visualized as a secondary landmark identifying the L4-5 level. Initially, the L4, L5 dorsal rami which is at the junction of the sacral ala and superior articular process of S1 was visualized. The skin was anesthetized with 1% lidocaine. A 17G, 50mm introducer needle with a 4 mm active tip was placed and directed to the bony contact at the three levels. Under fluoroscopic guidance, appropriate placement was confirmed including lateral view. First saved image is with a marker on the LT side. LT SIDE Impedance on the Lt [id number] process (L2 nerve) was 350 L4 transverse process (L3 nerve) was 371 We anesthetized the this location with 1 cc of 2% lidocaine. Motor stimulation at 50 Hz up to 1.5 volts did not cause any radicular symptoms at any level. 30 seconds later, we conducted the cooled radiofrequency ablation protocol at 60 degrees measured internally while the tissue temperature is raised to 80 to 90 degrees (setting per Chrsitian/ Anshu / Sydney White preset parameters) for 2.5 minutes at each level. . Pt was monitored through out by anesthesia team. Please see anesthesia notes for details of time and medications. At the end of the procedure, needles were removed. No bleeding was noted from the three sites. Dressing was placed. Blood loss was about 0 cc's. Pt was transferred to post procedure area for recovery. The patient was instructed to apply ice over the injection site for twenty minutes every two hours for the next twenty-four to forty-eight hours. The patient was also instructed to contact us if there is any exacerbation of the symptoms. Post procedure instruction sheet was given. The patient was recommended to follow up with me as schedules permit Incision/Procedure Start Time: 8:55 AM Incision Close/Procedure End Time: 9:10 AM Date of Service: 12/22/2020 I was present for the entire duration of the procedure and I performed approximately 50% of the procedure. Germán Chinchilla DO, MBA [facility] HISTORY PHYSICALon HISTORY PHYSICAL HNO ID: [id number] Author: Tiff Plascencia PA-C Service: Orthopaedic Surgery Author Type: Physician Technical Solutions Consultant Type: HANDP Filed: 12/15/2020 1:22 PM Note Text: LOCAL PROCEDURE HISTORY AND PHYSICAL EXAM SERVICE DATE: 12/15/2020 SERVICE TIME: 1:21 PM Provisional Diagnosis/Treatment Plan: LBP/Lt lumbar medial branch block Subjective HPI: This is a 80 year old female who presents with LBP here for injection. patient denies recent illnesses, fevers, chills, cough, SOB, CP, palpitations, or fluttering. MEDICATIONS: Prior to Admission medications as of 12/15/20 1314 Medication Sig Last Dose Taking hydrocortisone 2.5 % ointment Apply to affected area on face 2 times daily as needed for 1-2 weeks after PDT Unknown at Unknown time L-Methylfolate 15 mg tab Take 1 tablet by mouth once daily. Unknown at Unknown time baclofen (LIORESAL) 10 mg tablet TAKE 1 TABLET BY MOUTH AT BEDTIME TO HELP MUSCLES RELAX Unknown at Unknown time oxybutynin ER (DITROPAN XL) 10 mg 24 hr tablet TAKE 1 TABLET BY MOUTH ONCE DAILY AT SUPPER TIME Unknown at Unknown time venlafaxine ER (EFFEXOR XR) 150 mg 24 hr capsule Take 150 mg by mouth. Unknown at Unknown time pantoprazole DR (PROTONIX) 40 mg tablet Take 40 mg by mouth. Unknown at Unknown time tiZANidine (ZANAFLEX) 4 mg tablet Take 1 tab when needed for headaches , up to one daily Unknown at Unknown time Amoxicillin 500 mg tablet Take 6 tablets by mouth 1 hour before dental procedure and 2 tablets by mouth 6 hours after. Unknown at Unknown time ascorbic acid, vitamin C, (VITAMIN C) 500 mg tablet Take 1 tablet by mouth twice daily with meals. budesonide-formoterol (SYMBICORT) 160-4.5 mcg/actuation inhaler Inhale 2 Puffs as instructed twice daily. Unknown at Unknown time albuterol HFA (PROVENTIL HFA, VENTOLIN HFA) 90 mcg/actuation inhaler INHALE 1 PUFF BY MOUTH EVERY 4 HOURS NEEDED AND 15 MINUTES PRIOR TO ACTIVITY Unknown at Unknown time pantoprazole DR (PROTONIX) 40 mg tablet Take 1 tablet by mouth daily before dinner. Patient taking differently: Take 40 mg by mouth daily before dinner. Pt taking 20mg Unknown at Unknown time ondansetron (ZOFRAN) 4 mg tablet Take 0.5-1 tablets by mouth every 8 hours as needed for Nausea/Vomiting. Unknown at Unknown time Cholecalciferol, Vitamin D3, 2,000 unit cap Take 1 capsule by mouth once daily. Unknown at Unknown time CALCIUM CITRATE/VITAMIN D3 (CITRACAL + D ORAL) Take by mouth once daily. Unknown at Unknown time Aspirin-Acetaminophen- Caffeine (EXCEDRIN MIGRAINE) 250-250-65 mg per tablet Take 1 tablet by mouth every 6 hours as needed (migraine). Unknown at Unknown time ALLERGIES Allergen Reactions - Cymbalta [Duloxetin* Other: See Comments Made her feel emotionless. Objective PHYSICAL EXAM: The remainder of the physical exam is noncontributory. LUNGS: Lungs clear to auscultation, Good diaphragmatic excursion CARDIAC: Normal S1 and S2; no rubs, murmurs, or gallops, RRR BP 155/93 Temp (!) 2.1 ?C (35.7 ?F) (Temporal) Resp 16 Ht 167.6 cm (5' 6) Wt 55.8 kg (123 lb) SpO2 95% BMI 19.85 kg/m? PAIN ASSESSMENT: PAIN EVALUATION 12/15/2020 1315 Pain Level: 8 Pain Location: Back-Lower Intervention: Reposition;Relaxation Assessment/Plan Principal Problem: Lumbar spondylosis POA: Yes Assessment AND Plan: Lt lumbar medial branch block SIGNATURE: Tiff Plascencia PA-C PATIENT NAME: Sandie Ho DATE: December 15, 2020 TIME: 1:21 PM PAGER: [facility] OPERATIVE NOon 12-15-2020 OPERATIVE NO HNO ID: [id number] Author: Germán Chinchilla, DO Service: ? Author Type: Physician Type: Operative Report Filed: 12/15/2020 2:23 PM Note Text: Pt presents today for f/u. Pt continues to have low back pain on the lt side. Insurance company has recommended that only two levels be addressed. I have marked the location on the lt side of her back where the is most noticeable and we will address this location. Is interested in potential radio frequency ablation for back pain Pt is aware of risks, benefits, alternatives, expected outcome, equipment and personnel. The patient was offered a procedure / surgery at a [facility]. It is not possible to know either the risk of delaying the surgery or procedure or chance of getting an infection with perfect accuracy, but a joint decision was made between the patient and the surgeon/proceduralist to proceed at this time with the scheduled surgery/procedure as indicated on the consent form. [facility] approved time out was performed identifying the site, side and level of procedure prior to start of procedure. Lumbar Medial Branch Block Indications: Lumbar zygapophysial joint pain responsive to previous lumbar facet injection Technical Solutions Consultant: Dr. Adrian Gan After a discussion of the relative risks and benefits of the procedure, verbal and written informed consent was obtained. The patient was placed prone on the fluoroscopic table. The area was prepped in the usual sterile fashion. With fluoroscopic guidance, the lumbar medial branches were localized at the dorsal surface of the transverse process just caudal to the most medial end of the superior edge of the transverse process. The patient was prepped and draped in the usual sterile manner. DuraPrep was used per skin prep guidelines. We waited 3 minutes by timer for the DuraPrep to dry before proceed with the procedure. Using sterile technique, target sites were first isolated. Omnipaque 300mgI/mL was injected to rule out intravascular placement of the needle. Contrast flow as noted without intravascular uptake. Subsequently 1cc of 1% Xylocaine preservative free was injected into each lumbar medial branch proximal to the mamiloaccessory ligament and medial to the notch. The L5 dorsal ramus was similarly injected into the groove between the ala of the sacrum and the S1 superior articular process. Left L2, 3 Approximately 100 % pain relief was obtained immediately after the procedure. Is interested in proceeding with radiofrequency ablation. At the conclusion of the procedure pressure was applied. A sterile bandage was applied. Pulse oximeter was used throughout the procedure and the patient's pulse and oxygen saturation remained within normal limits. Vital signs remained normal. The patient tolerated the procedure well. there were no complications. The patient was instructed to apply ice over the injection site for twenty minutes every two hours for the next twenty-four to forty-eight hours. The patient was also instructed to contact me if there is any exacerbation of the symptoms. Post procedure instruction sheet was given. The patient was recommended to follow up with me in one to two weeks. Incision/Procedure Start Time: 1:43 PM Incision Close/Procedure End Time: 1:47 PM Date: 12/15/2020 I was present for the entire duration of the procedure and I performed approximately 4 5% of the procedure. Germán Chinchilla DO, MBA [facility] HISTORY PHYSICALon HISTORY PHYSICAL HNO ID: [id number] Author: JAXON Hewitt Service: ? Author Type: Physician Technical Solutions Consultant Type: HANDP Filed: 10/29/2020 11:02 AM Note Text: LOCAL PROCEDURE HISTORY AND PHYSICAL EXAM SERVICE DATE: 10/29/2020 SERVICE TIME: 11:02 AM Provisional Diagnosis/Treatment Plan: Lumbar spondylosis/BLOCK JOINT FACET LUMBAR Subjective HPI: This is a 80 year old female who presents with lower back pain MEDICATIONS: Prior to Admission medications as of 10/29/20 1055 Medication Sig Last Dose Taking hydrocortisone 2.5 % ointment Apply to affected area on face 2 times daily as needed for 1-2 weeks after PDT L-Methylfolate 15 mg tab Take 1 tablet by mouth once daily. 10/28/2020 baclofen (LIORESAL) 10 mg tablet TAKE 1 TABLET BY MOUTH AT BEDTIME TO HELP MUSCLES RELAX oxybutynin ER (DITROPAN XL) 10 mg 24 hr tablet TAKE 1 TABLET BY MOUTH ONCE DAILY AT SUPPER TIME venlafaxine ER (EFFEXOR XR) 150 mg 24 hr capsule Take 150 mg by mouth. 10/28/[address] (PROTONIX) 40 mg tablet Take 40 mg by mouth. 10/28/2020 tiZANidine (ZANAFLEX) 4 mg tablet Take 1 tab when needed for headaches , up to one daily Amoxicillin 500 mg tablet Take 6 tablets [...] NEEDED AND 15 MINUTES PRIOR TO ACTIVITY 10/28/[address] (PROTONIX) 40 mg tablet Take 1 tablet by mouth daily before dinner. Patient taking differently: Take 40 mg by mouth daily before dinner. Pt taking 20mg 10/28/2020 ondansetron (ZOFRAN) 4 mg tablet Take 0.5-1 tablets by mouth every 8 hours as needed for Nausea/Vomiting. Cholecalciferol, Vitamin D3, 2,000 unit cap Take 1 capsule by mouth once daily. CALCIUM CITRATE/VITAMIN D3 (CITRACAL + D ORAL) Take by mouth once daily. 10/28/2020 Aspirin-Acetaminophen- Caffeine (EXCEDRIN MIGRAINE) 250-250-65 mg per tablet Take 1 tablet by mouth every 6 hours as needed (migraine). 10/28/2020 ALLERGIES Allergen Reactions - Cymbalta [Duloxetin* Other: See Comments Made her feel emotionless. Objective PHYSICAL EXAM: The remainder of the physical exam is noncontributory. LUNGS: Lungs clear to auscultation, Good diaphragmatic excursion CARDIAC: Normal S1 and S2; no rubs, murmurs, or gallops, regular rate and rhythm There were no vitals taken for this visit. - see admission vitals tab PAIN ASSESSMENT: see HPI Assessment/Plan Active Problems: Lumbar spondylosis POA: Yes Assessment AND Plan: Lumbar spondylosis Resolved Problems: * No resolved hospital problems. * SIGNATURE: JAXON Hewitt PATIENT NAME: Sandie Ho DATE: October 29, 2020 TIME: 11:02 AM Normal [facility] OPERATIVE NOon 10-29-2020 OPERATIVE NO HNO ID: [id number] Author: Germán Chinchilla, DO Service: ? Author Type: Physician Type: Operative Report Filed: 10/29/2020 12:10 PM Note Text: Pt presents today for f/u. Pt continues to have low back pain mostly on the lt side. Is interested in potential radio frequency ablation for back pain Pt is aware of risks, benefits, alternatives, expected outcome, equipment and personnel. Areas of pain were marked on the lt side and will target this region today. The patient was offered a procedure / surgery at a [facility] facility. It is not possible to know either the risk of delaying the surgery or procedure or chance of getting an infection with perfect accuracy, but a joint decision was made between the patient and the surgeon/proceduralist to proceed at this time with the scheduled surgery/procedure as indicated on the consent form. [facility] approved time out was performed identifying the site, side and level of procedure prior to start of procedure. Lumbar Medial Branch Block Indications: Lumbar zygapophysial joint pain responsive to previous lumbar facet injection After a discussion of the relative risks and benefits of the procedure, verbal and written informed consent was obtained. The patient was placed prone on the fluoroscopic table. The area was prepped in the usual sterile fashion. With fluoroscopic guidance, the lumbar medial branches were localized at the dorsal surface of the transverse process just caudal to the most medial end of the superior edge of the transverse process. The patient was prepped and draped in the usual sterile manner. DuraPrep was used per skin prep guidelines. We waited 3 minutes by timer for the DuraPrep to dry before proceed with the procedure. Using sterile technique, target sites were first isolated. Omnipaque 300mgI/mL was injected to rule out intravascular placement of the needle. Contrast flow as noted without intravascular uptake. Subsequently 0.5 cc of 2% Xylocaine preservative free was injected into each lumbar medial branch proximal to the mamiloaccessory ligament and medial to the notch. The L5 dorsal ramus was similarly injected into the groove between the ala of the sacrum and the S1 superior articular process. Left L1, L2 and L3 Approximately 100 % pain relief was obtained immediately after the procedure. Would like to proceed with radiofrequency ablation on the lt side given the noticeable improvement in her pain. At the conclusion of the procedure pressure was applied. A sterile bandage was applied. Pulse oximeter was used throughout the procedure and the patient's pulse and oxygen saturation remained within normal limits. Vital signs remained normal. The patient tolerated the procedure well. there were no complications. The patient was instructed to apply ice over the injection site for twenty minutes every two hours for the next twenty-four to forty-eight hours. The patient was also instructed to contact me if there is any exacerbation of the symptoms. Post procedure instruction sheet was given. The patient was recommended to follow up with me in one to two weeks. Incision/Procedure Start Time: 11:12 AM Incision Close/Procedure End Time: 11:16 AM Date: 10/29/2020 I was present for the entire duration of the procedure and I performed the entire procedure. Germán Chinchilla DO, MBA [facility] HISTORY PHYSICALon HISTORY PHYSICAL HNO ID: [id number] Author: Tiff Sherman) Thais Service: Orthopaedic Surgery Author Type: Physician Technical Solutions Consultant Type: HANDP Filed: 08/25/2020 11:40 AM Note Text: LOCAL PROCEDURE HISTORY AND PHYSICAL EXAM SERVICE DATE: 08/25/2020 SERVICE TIME: 11:32 AM Provisional Diagnosis/Treatment Plan: BLOCK JOINT FACET LUMBAR WITH C-ARM - Left Subjective HPI: This is a 80 year old female who presents with LBP here for injections. patient denies recent illnesses, fevers, chills, cough, SOB, CP, palpitations, or fluttering. MEDICATIONS: Prior to Admission medications as of 08/25/20 1128 Medication Sig Last Dose Taking L-Methylfolate 15 mg tab Take 1 tablet by mouth once daily. 08/24/2020 at Unknown time Yes oxybutynin ER (DITROPAN XL) 10 mg 24 hr tablet TAKE 1 TABLET BY MOUTH ONCE DAILY AT SUPPER TIME 08/24/2020 at Unknown time Yes venlafaxine ER (EFFEXOR XR) 150 mg 24 hr capsule Take 150 mg by mouth. 08/24/2020 at Unknown time Yes albuterol HFA (PROVENTIL HFA, VENTOLIN HFA) 90 mcg/actuation inhaler INHALE 1 PUFF BY MOUTH EVERY 4 HOURS NEEDED AND 15 MINUTES PRIOR TO ACTIVITY 08/24/2020 at Unknown time Yes pantoprazole DR (PROTONIX) 40 mg tablet Take 1 tablet by mouth daily before dinner. Patient taking differently: Take 40 mg by mouth daily before dinner. Pt taking 20mg 08/24/2020 at Unknown time Yes CALCIUM CITRATE/VITAMIN D3 (CITRACAL + D ORAL) Take by mouth once daily. 08/24/2020 at Unknown time Yes hydrocortisone 2.5 % ointment Apply to affected area on face 2 times daily as needed for 1-2 weeks after PDT TRINTELLIX 20 mg tablet Take 20 mg by mouth once daily. baclofen (LIORESAL) 10 mg tablet TAKE 1 TABLET BY MOUTH AT BEDTIME TO HELP MUSCLES RELAX pantoprazole DR (PROTONIX) 40 mg tablet Take 40 mg by mouth. tiZANidine (ZANAFLEX) 4 mg tablet Take 1 tab when needed for headaches , up to one daily Amoxicillin 500 mg tablet Take 6 tablets by mouth 1 hour before dental procedure and 2 tablets by mouth 6 hours after. ascorbic acid, vitamin C, (VITAMIN C) 500 mg tablet Take 1 tablet by mouth twice daily with meals. budesonide-formoterol (SYMBICORT) 160-4.5 mcg/actuation inhaler Inhale 2 Puffs as instructed twice daily. ondansetron (ZOFRAN) 4 mg tablet Take 0.5-1 tablets by mouth every 8 hours as needed for Nausea/Vomiting. Cholecalciferol, Vitamin D3, 2,000 unit cap Take 1 capsule by mouth once daily. Aspirin-Acetaminophen- Caffeine (EXCEDRIN MIGRAINE) 250-250-65 mg per tablet Take 1 tablet by mouth every 6 hours as needed (migraine). ALLERGIES Allergen Reactions - Cymbalta [Duloxetin* Other: See Comments Made her feel emotionless. Objective PHYSICAL EXAM: The remainder of the physical exam is noncontributory. LUNGS: Lungs clear to auscultation, Good diaphragmatic excursion CARDIAC: Normal S1 and S2; no rubs, murmurs, or gallops, RRR BP 140/72 Pulse 77 Temp 36.6 ?C (97.8 ?F) (Temporal) Resp 20 Ht 167.6 cm (5' 6) Wt 54.4 kg (120 lb) SpO2 95% BMI 19.37 kg/m? PAIN ASSESSMENT: PAIN EVALUATION 08/25/2020 1137 Pain Level: 6 Pain Location: Back-Lower Description: Aching Intervention: Distractions Assessment/Plan Principal Problem: Lumbar spondylosis POA: Yes Assessment AND Plan: BLOCK JOINT FACET LUMBAR WITH C-ARM - Left SIGNATURE: Tiff Plascencia PA-C PATIENT NAME: Sandie Ho DATE: August 25, 2020 TIME: 11:32 AM PAGER: Normal [facility] OPERATIVE NOon 08-25-2020 OPERATIVE NO HNO ID: [id number] Author: Germán Chinchilla Service: ? Author Type: Physician Type: Operative Report Filed: 08/25/2020 11:57 AM Note Text: Pt presents for f/u. Continues to have Lt low back pain. Wants to proceed with the lumbar facet injections as discussed in the past. Consent obtained. Pt is aware of risks, benefits, alternatives, expected outcome, equipment and personnel. The patient was offered a procedure / surgery at a [facility]. It is not possible to know either the risk of delaying the surgery or procedure or chance of getting an infection with perfect accuracy, but a joint decision was made between the patient and the surgeon/proceduralist to proceed at this time with the scheduled surgery/procedure as indicated on the consent form. [facility] approved timeout was done before the start of the procedure. [facility] - ELECTIVE PROCEDURE Fluoroscopic Guided Lumbar Facet Joint Injection Indications: Lumbar spondylosis, Lt lower back pain, lumbar stenosis Technical Solutions Consultant: Dr. Fer Coon The risks and benefits of the procedure were discussed extensively with the patient. The verbal and written informed consent of the patient was obtained and the following procedure was performed: The patient was placed in the prone position. The patient's back was prepped in a sterile fashion. DuraPrep was used per skin prep guidelines. We waited 3 minutes by timer for the DuraPrep to dry before proceed with the procedure. Using sterile technique and under fluoroscopic control the facet joints were first localized. Using fluoroscopic guidance the L5 vertebral body was definitively identified using the most caudal normal disc space labeled as L5-S1. The iliac crest was also visualized as a secondary landmark identifying the L4-5 level. A 25 gauge needle was introduced into the facet joints under fluoroscopy. X-ray localization was obtained using Omnipaque 300mgI/mL, approximately 0.2 cc contrast was injected. X-rays were obtained for documentation purposes. All medications were injected after localization. The facet joints included the : Left L1-2, L2-3 and L3-4 Injection solution of approximately 2 mg of betamethasone + 0.5 cc of 2% Xylocaine preservative free was injected into each joint. No complications were noted. Pulse oximeter was used throughout the procedure and the patient's pulse and oxygen saturation remained within normal limits. The patient was instructed to apply ice over the injection site for twenty minutes every two hours for the next twenty-four to forty-eight hours. The patient was also instructed to contact me if there is any exacerbation of the symptoms. Post procedure instruction sheet was given. The patient was recommended to follow up with me in one to two weeks. Incision/Procedure Start Time: 11:43 AM Incision Close/Procedure End Time: 11:48 AM Date of Service: 08/25/2020 I was present for the entire duration of the procedure and I performed approximately 50% of the procedure. Germán Chinchilla DO, MBA [facility] 07-31-2020 HOSP Patient:Sandie Ho MRN: Height:5' 6(1.676 m) Weight:120 lb (54.432 kg) Outpatient Medications as of 08/25/20: hydrocortisone 2.5 % ointment L-Methylfolate 15 mg tab TRINTELLIX 20 mg tablet baclofen (LIORESAL) 10 mg tablet oxybutynin ER (DITROPAN XL) 10 mg 24 hr tablet venlafaxine ER (EFFEXOR XR) 150 mg [address] (PROTONIX) 40 mg tablet tiZANidine (ZANAFLEX) 4 mg tablet Amoxicillin 500 mg tablet ascorbic acid, vitamin C, (VITAMIN C) 500 mg tablet budesonide-formoterol (SYMBICORT) 160-4.5 mcg/actuation inhaler albuterol HFA (PROVENTIL HFA, VENTOLIN HFA) 90 mcg/actuation inhaler pantoprazole DR (PROTONIX) 40 mg tablet ondansetron (ZOFRAN) 4 mg tablet Cholecalciferol, Vitamin D3, 2,000 unit cap CALCIUM CITRATE/VITAMIN D3 (CITRACAL + D ORAL) Aspirin-Acetaminophen- Caffeine (EXCEDRIN MIGRAINE) 250-250-65 mg per tablet Admission/Clinic Administered Medications as of 08/25/20: Patient has no admission medications. 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] History of dislocation of hip [Z87.828] Occipital neuralgia of right side [M54.81] Iron deficiency anemia [D50.9] Current use of proton pump inhibitor [Z79.899] NEFTALY positive [R76.8] History of colonic polyps [Z86.010] Age-related osteoporosis without current pathological fracture [M81.0] Encounter for screening for cardiovascular disorders [Z13.6] Encounter for screening for diabetes mellitus [Z13.1] COPD (chronic obstructive pulmonary disease) (HCC) [J44.9] Abnormal stress ECG [R94.39] HUANG (dyspnea on exertion) [R06.00] Osteoarthritis of left hip [M16.12] 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 Chinchilla tomorrow. Please advise, thank you. Shena Sharma LPN 08/24/2020 2:38 PM Signed Spoke to pt and advised it is ok to eat and drink due to a local numbing agent is used. Pt verbalized understanding Progress Notes ([facility] REJ): Germán Chinchilla DO 07/31/2020 12:03 PM Signed [facility] Low Back Pain - Chronic (> 12 weeks) Initial Exam SUBJECTIVE HISTORY OF PRESENT ILLNESS: Sandie Ho is a 80 year old female who presents with a chief complaint of low back pain and is seen in consultation requested by Dr. Obinna Butler (Pa-C) Shala for an opinion regarding left low back pain X 4-5 years. Denies radiation, numbness/tingling. My final recommendations will be communicated back to the requesting physician by way of shared medical record or letter via US mail. Other Issues Addressed at the Visit Today: None. Precipitating Event: None PAIN EVALUATION 07/31/2020 1101 Pain Level: 6 Pain Location: Back-Lower Description: Sharp Duration Units: Years Frequency: Continuous Intervention: Medication;Reposition; Heat;Cold;Exercise Pain Radiation: As stated above. Aggravating Factors: Flexion, Lifting, Pushing, Pulling, Reaching, Standing, Walking, Walking upstairs, Walking downstairs Alleviating Factors: Heat application, Lying supine, Sitting PREVIOUS TREATMENTS IN THE LAST SIX MONTHS Active conservative therapy in the last six months (see below) 1. Physical therapy: No 2. Home exercise program after PT:Yes 3. A physician supervised home exercise program (HEP): No 4. Machine Fastener: No Passive conservative therapy in the last six months (see below) 1. NSAIDS: None 2. Prescription pain medication: Baclofen - last dose one month ago. Patient fell after taking so doesn't take anymore. 3. Acupuncture: No 4. Tens unit: No Litigation: No Workers' Compensation: No YELLOW AND BLUE FLAGS No-Neg Attit (more content not included)... Normal [facility] MRI LUMBAR SPINE WO IVCONon 06-04-2020 MRI LUMBAR SPINE WO IVCON * * *Final Rep ort* * * DATE OF EXAM: Jun 04 2020 8:18AM [facility] 0303 - MRI LUMBAR SPINE WO IVCON / PROCEDURE REASON: Spinal stenosis of lumbar region, unspecified whether neurogenic claudication pr * * * * Physician Interpretation * * * * RESULT: COMPARISON: 06/01/2020. HISTORY: Pathological fracture of lumbar spine with spinal stenosis. TECHNIQUE: MRI lumbar spine without contrast. MQ: [id number] RESULT: MRI LUMBAR SPINE: Acute abnormality: Left sacral insufficiency fracture. Abnormal increased inversion recovery and low T1 signal intensity is identified along the left sacral body compatible with insufficiency fracture. Early changes are identified within the central as well as right aspect but without clear evidence for insufficiency fracture. Significant disc degeneration and spondylosis is identified causing multilevel severe central canal stenosis detailed level by level below. Stable thoracolumbar kyphoscoliosis. Multiple old compression deformities identified without abnormal signal compatible with old fractures and not acute abnormalities. These are at T11 with 25% height decrease, T12 with 75% height decrease and L3 with 10% height decrease. Patchy marrow signal indicating osteopenia. Normal alignment, remaining vertebral body height, thecal sac, spinal cord signal/caliber and cauda equina. Normal soft tissues. Intervertebral disks are decreased in height/signal with posterior disc osteophyte indicating disc degeneration. Facet and ligamentum flavum hypertrophy. T10 -- 11: Disc/joint degeneration. Patent central canal and left foramina. Mild right foramina narrowing. T11 -- 12: Disc/joint degeneration. Patent central canal. Patent bilateral neural foramina. T12 -- L1: Disc and joint degeneration. Central canal and foramen encroachment without narrowing. L1 -- 2: Disc/joint degeneration. Central canal encroachment. Moderate bilateral foramina narrowing. L2 -- 3: Disc/joint degeneration. Severe central canal stenosis with impingement and compression of the thecal sac and cauda equina. Facet related spur formation. Severe left and mild to moderate right foramina narrowing. L3 -- 4: Disc/joint degeneration. Mild to moderate central canal and left foramina narrowing. Right foramen is patent. L4 -- 5: Disc/joint degeneration. Severe central canal stenosis with impingement and compression of the thecal sac and cauda equina. Moderate to severe left and mild right foramina narrowing. L5 -- S1: Disc/joint degeneration. Patent central canal. Patent bilateral neural foramina. IMPRESSION: 1. Left sacral and body insufficiency fracture. 2. Kyphoscoliosis and diffuse lumbar disc/joint degeneration. 3. Significant canal narrowing at L2-3 and L4-5. 4. Multilevel significant foramina narrowing at L1-L5 detailed level by level above. 5. Old lumbar compression deformities remain stable. COUNTING REFERENCE: Inferior lumbar disc is taken as L5-S1. Structural anomalies: None. Transcribed Using Voice Recognition Transcribe Date/Time: Jun 04 2020 8:12A Dictated by: ANNY SCOTT MD This examination was interpreted and the report reviewed and electronically signed by: ANNY SCOTT MD on Jun 04 2020 8:46AM EST [id number] [facility] [place] PROGRESSon 06-04-2020 PROGRESS HNO ID: [id number] Author: Genesis Dee (Tech) Service: Radiology Author Type: Take Up Supervisor Type: Progress Notes Filed: 06/04/2020 7:33 AM Note Text: Radiology Service Progress Note PATIENT NAME: Sandie Ho DATE OF SERVICE: June 04, 2020 TIME: 7:32 AM PATIENT IDENTITY VERIFICATION COMPLETED USING TWO [...] place to prevent falls during this visit? Offered Assistance with Transfers/Clothing PATIENT GENDER DATA: Female. status: : No status: NO. PATIENT RELEVANT IMPLANT DATA REVIEWED: Yes RADIOLOGY DEPARTMENT: MR; Exam(s) Completed: Spine: Lumbar spine PERIPHERAL IV DATA: Not applicable SIGNED BY: Genesis Dee June 04, 2020 7:32 AM Normal [facility] BD DXA - AXIAL SKELETONon BD DXA - AXIAL SKELETON * * *Final Repor t* * * DATE OF EXAM: May 11 2020 3:36PM [facility] 0804 - DXA - AXIAL SKELETON / PROCEDURE REASON: multiple diagnoses * * * * Physician Interpretation * * * * RESULT: BONE MINERAL DENSITY INDICATION: DEXA Spinal stenosis of lumbar region, unspecified whether neurogenic claudication present Closed compression fracture of thoracic vertebra, initial encounter ([facility]) COMPARISONS: TECHNICAL PARAMETERS: Bone mineral density was obtained using dual energy x-ray absorptiometry PATIENT DEMOGRAPHICS: SANDIE HO, [id number] Age: 79 years, Race: White, Gender: Female Referring: GIOVANNI SCHMITZ DXA Model: [email or web address] C ([id number] Site Scanned: [facility] Date Scanned: 05/11/2020 3:36 PM RESULT: LUMBAR SPINE: BMD: 1.095 g/cm2 g/cm2. T-Score: 0.4 SD Z-Score: 3.1 SD DISTAL THIRD LEFT FOREARM: BMD: 0.387 g/cm2 g/cm2. T-Score: -5.1 SD Z-Score: -1.9 SD DISTAL THIRD RIGHT FOREARM: BMD: 0.411 g/cm2 g/cm2. T-Score: -4.7 SD Z-Score: -1.5 SD T-score is standard deviation from the expected peak bone mineral density of the normal young adult (20 to 45 year old) [facility] female reference population. Z-score is standard deviations from the expected peak bone mass matched for age, sex, weight and ethnicity. IMPRESSION: OSTEOPOROSIS Based upon the World Health Organization criteria. FOLLOW-UP RECOMMENDATIONS: Screening DEXA BMD testing in two years is recommended, as clinically indicated. However, when monitoring for rapid bone loss, repeat scanning as frequently as every 6 to 12 months may be desirable or necessary. (Please note that sequential exams to assess change or best on the same machine each time in order to preserve comparison accuracy.) WORLD HEALTH ORGANIZATION CRITERIA: (For postmenopausal > 60-year-old women, no established criteria another populations). * NORMAL: T-score> -1 SD * OSTEOPENIA: T-score -1 to -2.5 SD * OSTEOPOROSIS: T-score <-2.5 SD * SEVERE OSTEOPOROSIS:T-score <-2.5 SD with fracture Transcribed Using Voice Recognition Transcribe Date/Time: May 11 2020 5:17P Dictated by: IGGY DIMAS MD This examination was interpreted and the report reviewed and electronically signed by: IGGY DIMAS MD on May 11 2020 5:17PM EST [id number] [facility] [place] PROGRESSon 05-11-2020 PROGRESS HNO ID: [id number] Author: Genesis Lyles (Rt) Service: ? Author Type: Take Up Supervisor Type: Progress Notes Filed: 05/11/2020 3:33 PM Note Text: Radiology Service Progress Note PATIENT NAME: Sandie Ho DATE OF SERVICE: May 11, 2020 TIME: 3:32 PM PATIENT IDENTITY VERIFICATION COMPLETED USING TWO [...] IMPLANT DATA REVIEWED: Not Applicable RADIOLOGY DEPARTMENT: Bone Density and Interventional Radiology PERIPHERAL IV DATA: Not applicable SIGNED BY: RT Rafal May 11, 2020 3:32 PM [facility] [place] XR HIP 3V PELV+ AP/LAT LTon 05-11-2020 XR HIP 3V PELV+ AP/LAT LT * * *Final Rep ort* * * DATE OF EXAM: May 11 2020 3:37PM [facility] [id number] - XR HIP 3V PELV+ AP/LAT LT / PROCEDURE REASON: multiple diagnoses * * * * Physician Interpretation * * * * RESULT: EXAMINATION: XR HIP 3V PELV+ AP/LAT LT CLINICAL HISTORY: PT STATES SHE HAD A FALL 2 DAYS AGO, PRIOR HIP REPLACEMENTS Fall, initial encounter Status post total replacement of left hip Technique: XR HIP 3V PELV+ AP/LAT LT -- LEFT with 3 views on 5 images Comparison: 03/19/2020 RESULT: Status post bilateral total hip arthroplasties. The imaged left hip is intact without evidence of loosening. No fracture or dislocation. SI joints and pubic symphysis are intact. Degenerative changes in the lower lumbar spine. IMPRESSION: Left total hip arthroplasty without apparent complication. Transcribed Using Voice Recognition Transcribe Date/Time: May 12 2020 2:05P Dictated by: CLAUDIO NORMAN MD This examination was interpreted and the report reviewed and electronically signed by: CLAUDIO NORMAN MD on May 12 2020 2:06PM EST [id number] Normal [facility] CBC and Differentialon 04-12 Abs Baso 0.07 k/uL Normal <0.11 [facility] Comment on above: Performed By: #### C BCDIF, CMP, LIPA ####[facility] [id number] [place] [id number] Abs [place] 0.96 k/uL High <0.87 [facility] Comment on above: Performed By: #### C BCDIF, CMP, LIPA ####[facility] [phone] Abs Neut 4.65 k/uL Normal 1.45-7.50 [facility] Comment on above: Performed By: #### C BCDIF, CMP, LIPA ####[facility] [phone] Basophils/100 WBC Auto (Bld) 0.9 % Normal [facility] Comment on above: Performed By: #### C BCDIF, CMP, LIPA ####[facility] [phone] Eosinophils Auto #/vol (Bld) 0.52 10*3/uL High <0.46 [facility] Comment on above: Performed By: #### C BCDIF, CMP, LIPA ####[facility] [address] [place], [place] [phone] Eosinophils/100 WBC Auto (Bld) 6.8 % Normal [facility] Comment on above: Performed By: #### C BCDIF, CMP, LIPA ####[facility] [address] [place], [place] [address] Erythrocyte distribution width Auto Ratio (RBC) 12.6 % Normal 11.5-15.0 [facility] Comment on above: Performed By: #### C BCDIF, CMP, LIPA ####[facility] L[address] [place], [place] [address] Hematocrit Auto Volume Fraction (Bld) 38.1 % Normal 36.0-46.0 [facility] Comment on above: Performed By: #### C BCDIF, CMP, LIPA ####[facility] [address] [place], [place] [address] Hemoglobin mass conc (Bld) 12.8 g/dL Normal 11.5-15.5 [facility] Comment on above: Performed By: #### C BCDIF, CMP, LIPA ####[facility] [address] [place], [place] [phone] Lymphocytes Auto #/vol (Bld) 1.40 10*3/uL Normal 1.00-4.00 [facility] Comment on above: Performed By: #### C BCDIF, CMP, LIPA ####[facility] Ci[address] [place], [place] [phone] Lymphocytes/100 WBC Auto (Bld) 18.4 % Normal [facility] Comment on above: Performed By: #### C BCDIF, CMP, LIPA ####[facility] [address] [place] [address] MCH Auto Entitic mass (RBC) 31.9 pG Normal 26.0-34.0 [facility] Comment on above: Performed By: #### C BCDIF, CMP, LIPA ####[facility] [address] [place] [address] MCHC Auto mass conc (RBC) 33.6 g/dL Normal 30.5-36.0 [facility] Comment on above: Performed By: #### C BCDIF, CMP, LIPA ####[facility] [address] [place] [address] MCV Auto Entitic volume (RBC) 95.0 fL Normal 80.0-100.0 [facility] Comment on above: Performed By: #### C BCDIF, CMP, LIPA ####[place] [address] Monocytes/100 WBC Auto (Bld) 12.6 % Normal [facility] Comment on above: Performed By: #### C BCDIF, CMP, LIPA ####[facility] [address] [place] [address] Neutrophils/100 WBC Auto (Bld) 61.3 % Normal [facility] Comment on above: Performed By: #### C BCDIF, CMP, LIPA ####[facility] [address] [place] [address] Platelet mean volume Auto Entitic volume (Bld) 8.7 fL Low 9.0-12.7 [facility] Comment on above: Performed By: #### C BCDIF, CMP, LIPA ####[facility] [address] [place] [address] Platelets Auto #/vol (Bld) 294 10*3/uL Normal 150-400 [facility] Comment on above: Performed By: #### C BCDIF, CMP, LIPA ####[facility] [address] [place], [place] [phone] RBC Auto #/vol (Bld) 4.01 10*6/uL Normal 3.90-5.20 [facility] Comment on above: Performed By: #### C BCDIF, CMP, LIPA ####[facility] Fxliamjpbc9707 [phone] WBC Auto #/vol (Bld) 7.60 10*3/uL Normal 3.70-11.00 [facility] Comment on above: Performed By: #### C BCDIF, CMP, LIPA ####[facility] Urnybveafm3153 [phone] CT ABD/PEL W IVCONon 018 CT ABD/PEL W IVCON * * *Final Report* * *DATE OF EXAM: Apr 12 2018 5:36PM [facility] 0530 - CT ABD/PEL W IVCON / REASON: Abd pain, diverticulitis suspected * * [...] wall thickening.Lymph nodes: No abdominal or pelvic lymphadenopathy.Mesent del/Peritoneum: No ascites or mass.Retroperitoneum: No mass.Vasculature: The celiac axis and SMA are patent. The portal vein and branches, splenic vein, SMV, and hepatic veins are patent. No abdominal aortic aneurysm.Pelvis: No mass, ascites or fluid collection. The bladder is unremarkable.Bones/Sof t Tissues: There is degenerative disease of the lumbar spine. There is an age-indeterminate compression fracture of T12.Lower thorax: No pleural effusion or consolidation.IMPRESSI ON:1. No acute pathology2. Age-indeterminate compression fracture of T123. Hypodense nodule in the anterior left kidney which is too dense to represent a simple cyst. Further evaluation by CT scan or MRI of the kidneys without and with IV contrast is recommended for further evaluation. T ranscriptionist: LEE Transcribe Date/Time: Apr 12 2018 6:03PDictated by : CONRADO BRITT MDThis examination was interpreted and the report reviewed and electronically signed by: CONRADO BRITT MD on Apr 12 2018 6:12PM [id number] ACN Normal [facility] Comp Metabolic Panelon 04-12 Albumin mass conc 4.3 g/dL Normal 3.9-4.9 [facility] Comment on above: Performed By: #### C BCDIF, CMP, LIPA ####[facility] [address] [place] [address] ALP enzyme act/vol 58 U/L Normal 34-123 [facility] Comment on above: Performed By: #### C BCDIF, CMP, LIPA ####[facility] [address] [place] [address] ALT enzyme act/vol 8 U/L Normal 7-38 [facility] Comment on above: Performed By: #### C BCDIF, CMP, LIPA ####[place] [address] Anion gap 3 molar conc 13 mmol/L Normal 9-18 [facility] Comment on above: Performed By: #### C BCDIF, CMP, LIPA ####[facility] [address] [place] [address] AST enzyme act/vol 17 U/L Normal 13-35 [facility] Comment on above: Performed By: #### C BCDIF, CMP, LIPA ####[place] [address] Bilirubin mass conc 0.2 mg/dL Normal 0.2-1.3 [facility] Comment on above: Performed By: #### C BCDIF, CMP, LIPA ####[facility] J[address]ixnm9756 [place] [phone] Calcium mass conc 9.0 mg/dL Normal 8.5-10.2 [facility] Comment on above: Performed By: #### C BCDIF, CMP, LIPA ####[facility] Ngixmp[address]owd7933 [place] [address] Chloride molar conc 98 mmol/L Normal 97-105 [facility] Comment on above: Performed By: #### C BCDIF, CMP, LIPA ####[facility] I[address]csmt2806 [place] [address] CO2 molar conc 25 mmol/L Normal 22-30 [facility] Comment on above: Performed By: #### C BCDIF, CMP, LIPA ####[facility] Bi[address]hei[address] [place] [address] Creatinine mass conc 0.75 mg/dL Normal 0.58-0.96 [facility] Comment on above: Performed By: #### C BCDIF, CMP, LIPA ####[facility] [address]dler[address]34 [place] [address] eGFR- Amer. >60 Normal [facility] Comment on above: Performed By: #### C BCDIF, CMP, LIPA ####[facility] [address] [place] [address] GFR/1.73 sq M predicted among non-blacks MDRD vol rate/area (S/P/Bld) mL/min/{1.73_m2} Normal [facility] Comment on above: Result Comment: eGFR (Estimated GFR) Units of measure: mL/min/1.73 meters squaredeGFR is derived from the reexpressed MDRD Study equation using the following parameters: serum creatinine, age, gender and race. The creatinine assay has been calibrated to be traceable to IDMS.An eGFR <60 mL/min/1.73m2 for >3 months is consistent with chronic kidney disease. Refer to KDOQI guidelines for clinical interpretation.In patients with unstable renal function, e.g. those with acute kidney injury, the eGFR may not accurately reflect actual GFR. Performed By: #### C BCDIF, CMP, LIPA ####[facility] Fz[address]zxj2984 [place] [phone] Glucose mass conc 87 mg/dL Normal 74-99 [facility] Comment on above: Result Comment: The [place] Diabetes [employer] (ADA) provides guidance for cutoff values for fasting glucose and random glucose. The ADA defines fasting as no caloric intake for at least 8 hours. Fasting plasma glucose results between 100 to 125 mg/dL indicate increased risk for diabetes (prediabetes).Fasting plasma glucose results greater than or equal to 126 mg/dL meet the criteria for diagnosis of diabetes. In the absence of unequivocal hyperglycemia, results should be confirmed by repeat testing. In a patient with classic symptoms of hyperglycemia or hyperglycemic crisis, random plasma glucose results greater than or equal to 200 mg/dL meet the criteria for diagnosis of diabetes.Reference: Standards of Medical Care in Diabetes 2016, [place] [employer]. Diabetes Care. 2016.39(Suppl 1). Performed By: #### C BCDIF, CMP, LIPA ####[facility] [address] [place] [address] Potassium molar conc 3.6 mmol/L Low 3.7-5.1 [facility] Comment on above: Performed By: #### C BCDIF, CMP, LIPA ####[facility] [address]iq[address] [place] [address] Protein mass conc 6.7 g/dL Normal 6.3-8.0 [facility] Comment on above: Performed By: #### C BCDIF, CMP, LIPA ####[facility] [address] [place] [address] Sodium molar conc 136 mmol/L Normal 136-144 [facility] Comment on above: Performed By: #### C BCDIF, CMP, LIPA ####[facility] [address] [place] [address] Urea nitrogen mass conc 15 mg/dL Normal 7-21 M [facility] Comment on above: Performed By: #### C BCDIF, CMP, LIPA ####[facility] [address] [place] [address] ED NOTEon 04-12-2018 ED NOTE HNO ID: [id number]: Davina (Marielos) KIRSTEN Steinerervice: (none)Author Type: Registered NurseType: ED NotesFiled: 04/12/2018 6:38 PMNote Text: Patient in stable condition upon discharge. resp even and unlabored. Nodistress noted. Patient denies any complaints at this time. Discharge andfollow up reviewed, plan of care is agreed upon. Patient thankful for careupon discharge. [facility] ED NOTE HNO ID: [id number] Author: Davina TapiaRn) MARIELOS Steiner Service: (none) Author Type: Registered Nurse Type: ED Notes Filed: 04/12/2018 5:45 PM Note Text: Patient denies any pain at this time. [facility] ED NOTE HNO ID: [id number]: Yessy TapiaRn) KIRSTEN Brunsonervice: (none)Author Type: Registered NurseType: ED NotesFiled: 04/12/2018 4:03 PMNote Text:Patient presents with constipation for a week, has tried an enema with noresults. Had KUB done yesterday at [facility]. [facility] ED PROV NOTEon 04-12-2018 Protein mass conc HNO ID: [id number]: [place]USTIN Weberervice: (none)Author Type: PhysicianType: ED Provider NotesFiled: 04/12/2018 9:37 PMNote Text:ED Provider NotePatient Name: Sandie Jensen MarsMRN: [id number] DATE: 04/12/18HistoryPatient presents with:Constipation: for over a [...] dysf, normal valves.- COLONOSCOP W/ OR W/O [facility] SPEC Colonoscopy- CYSTO.PANENDO Cystoscopy- KNEE SCOPE,DIAGNOSTIC 06/2010 Arthroscopy, knee- PAST SURGICAL HISTORY OF R THR x 3- PAST SURGICAL HISTORY OF Bilat TKR- PAST SURGICAL HISTORY OF L Hip pinning (later removed)- PAST SURGICAL HISTORY OF Heart Cath- PAST SURGICAL HISTORY OF Dilation of left ureter- PAST SURGICAL HISTORY OF 05/13 L knee revision- PAST SURGICAL HISTORY OF 2014 R THR - Poteet- PAST SURGICAL HISTORY OF Right 07/2014 total hip replacementFAMILY HISTORYProblem Relation Age of Onset- Cancer Father- Coronary Artery Disease Father Early 70's CABG x5- Coronary Artery Disease Brother aged 52, [place]- Diabetes Brother Type II- No Family History [...] Drug use: No- Sexual activity: Yes Partners: FemaleALLERGIESAllerge n Reactions- Cymbalta [Duloxetin* Other: See Comments Made her feel emotionless.Review of SystemsConstitutional: Negative.HENT: Negative.Eyes: Negative.Respiratory: Negative.Cardiovascula r: Negative.Gastrointesti nal: Positive for abdominal pain and constipation. Negativefor diarrhea and vomiting.Genitourinary : Negative.Musculoskelet al: Negative.Skin: Negative.Neurological: Negative.Psychiatric/B ehavioral: Negative.Physical ExamBP 138/77 Pulse 72 Temp (Src) [...] of motion. Neck supple. No tracheal deviation present.Cardiovascular : Normal rate, regular rhythm, normal heart sounds andintact distal pulses.Pulmonary/Chest : Effort normal and breath sounds normal. No respiratorydistress.Ab dominal: Soft. She exhibits no distension and no mass. There is noguarding.Musculoskel etal: Normal range of motion. She exhibits no edema, tendernessor deformity.Neurological : She is alert and oriented to person, [...] advise a follow-up with PCP.SIGNATURE: Toni Stewart MD04/12/183 Normal [facility] Lipaseon 04-12-2018 Lipase enzyme act/vol 28 U/L Normal 16-61 [facility] Comment on above: Performed By: #### C BCDIF, CMP, LIPA ####[facility] [address] [place] [address] CBC and Differentialon 11-30 Abs Baso 0.04 k/uL Normal <0.11 [facility] Comment on above: Performed By: #### C BCDIF, CMP, MG1 ####[place] [address] Abs [place]ura 0.94 k/uL High <0.87 [facility] Comment on above: Performed By: #### C BCDIF, CMP, MG1 ####[place] [address] Abs Neut 4.68 k/uL Normal 1.45-7.50 [facility] Comment on above: Performed By: #### C BCDIF, CMP, MG1 ####[place] [address] Basophils/100 WBC Auto (Bld) 0.5 % Normal [facility] Comment on above: Performed By: #### C BCDIF, CMP, MG1 ####[place] [address] Eosinophils Auto #/vol (Bld) 0.46 10*3/uL High <0.46 [facility] Comment on above: Performed By: #### C BCDIF, CMP, MG1 ####[place] [address] Eosinophils/100 WBC Auto (Bld) 5.9 % Normal [facility] Comment on above: Performed By: #### C BCDIF, CMP, MG1 ####[place] [address] Erythrocyte distribution width Auto Ratio (RBC) 13.7 % Normal 11.5-15.0 [facility] Comment on above: Performed By: #### C BCDIF CMP, MG1 ####[place] [address] Hematocrit Auto Volume Fraction (Bld) 37.7 % Normal 36.0-46.0 [facility] Comment on above: Performed By: #### C BCDIF CMP, MG1 ####[place] [address] Hemoglobin mass conc (Bld) 12.4 g/dL Normal 11.5-15.5 [facility] Comment on above: Performed By: #### C BCRORYF CMP, MG1 ####[place] [address] Lymphocytes Auto #/vol (Bld) 1.64 10*3/uL Normal 1.00-4.00 [facility] Comment on above: Performed By: #### C BCDIF CMP, MG1 ####[place] [address] Lymphocytes/100 WBC Auto (Bld) 21.1 % Normal [facility] Comment on above: Performed By: #### C BCLEANNA CMP, MG1 ####[place] [address] MCH Auto Entitic mass (RBC) 32.2 pG Normal 26.0-34.0 [facility] Comment on above: Performed By: #### C BCDIF CMP, MG1 ####[place] [address] MCHC Auto mass conc (RBC) 32.9 g/dL Normal 30.5-36.0 [facility] Comment on above: Performed By: #### C BCDIF CMP, MG1 ####[place] [address] MCV Auto Entitic volume (RBC) 97.9 fL Normal 80.0-100.0 [facility] Comment on above: Performed By: #### C BCDIF, CMP, MG1 ####[facility] [address] [place] [address] Monocytes/100 WBC Auto (Bld) 12.1 % Normal [facility] Comment on above: Performed By: #### C BCDIF, CMP, MG1 ####[place] [address] Neutrophils/100 WBC Auto (Bld) 60.4 % Normal [facility] Comment on above: Performed By: #### C BCDIF, CMP, MG1 ####[place] [address] Platelet mean volume Auto Entitic volume (Bld) 9.1 fL Normal 9.0-12.7 [facility] Comment on above: Performed By: #### C BCDIF, CMP, MG1 ####[place] [address] Platelets Auto #/vol (Bld) 290 10*3/uL Normal 150-400 [facility] Comment on above: Performed By: #### C BCDIF, CMP, MG1 ####[place] [address] RBC Auto #/vol (Bld) 3.85 10*6/uL Low 3.90-5.20 [facility] Comment on above: Performed By: #### C BCDIF, CMP, MG1 ####[place] [address] WBC Auto #/vol (Bld) 7.76 10*3/uL Normal 3.70-11.00 [facility] Comment on above: Performed By: #### C BCDIF, CMP, MG1 ####[place] [address] CK, Total and CKMBon 05-31-2 018 CK enzyme act/vol 32 U/L Low 42-196 [facility] Comment on above: Performed By: #### C KCKMB ####[place] [address] CK MB % CK MB % not reported with CK <100 U/L. Normal 0.0-4.0 [facility] Comment on above: Performed By: #### C KCKMB ####[address] MB 2.0 ng/mL Normal <4.3 [facility] Comment on above: Performed By: #### C KCKMB ####[facility] [address] [place] [address] Comp Metabolic Panelon 11-30 Albumin mass conc 4.6 g/dL Normal 3.9-4.9 [facility] Comment on above: Performed By: #### C BCDIF, CMP, MG1 ####[facility] [address] [place] [address] ALP enzyme act/vol 63 U/L Normal 32-117 [facility] Comment on above: Performed By: #### C BCDIF, CMP, MG1 ####[facility] [address] [place] [address] ALT enzyme act/vol 10 U/L Normal 7-38 [facility] Comment on above: Performed By: #### C BCDIF, CMP, MG1 ####[facility] [address] [place] [address] Anion gap 3 molar conc 11 mmol/L Normal 9-18 [facility] Comment on above: Performed By: #### C BCDIF, CMP, MG1 ####[facility] [address] [place] [address] AST enzyme act/vol 15 U/L Normal 13-35 [facility] Comment on above: Performed By: #### C BCDIF, CMP, MG1 ####[facility] [address] [place] [address] Bilirubin mass conc 0.3 mg/dL Normal 0.2-1.3 [facility] Comment on above: Performed By: #### C BCDIF, CMP, MG1 ####[facility] [address] [place] [address] Calcium mass conc 9.1 mg/dL Normal 8.5-10.2 [facility] Comment on above: Performed By: #### C BCDIF, CMP, MG1 ####[facility] [address] [place] [address] Chloride molar conc 96 mmol/L Low 97-105 [facility] Comment on above: Performed By: #### C BCDIF, CMP, MG1 ####[facility] Vjucdjdibe6977 [address] CO2 molar conc 27 mmol/L Normal 22-30 [facility] Comment on above: Performed By: #### C BCDIFANEESH, MG1 ####[facility] [address]cikgbvrdn6875 [address] Creatinine mass conc 0.78 mg/dL Normal 0.58-0.96 [facility] Comment on above: Performed By: #### C BCDIFANEESH, MG1 ####[facility] [address]xc[address] [place] [address] eGFR- Amer. >60 Normal [facility] Comment on above: Performed By: #### C ANEESH GARCIA, MG1 ####[facility] [address] [place] [address] GFR/1.73 sq M predicted among non-blacks MDRD vol rate/area (S/P/Bld) mL/min/{1.73_m2} Normal [facility] Comment on above: Result Comment: eGFR (Estimated GFR) Units of measure: mL/min/1.73 meters squaredeGFR is derived from the reexpressed MDRD Study equation using the following parameters: serum creatinine, age, gender and race. The creatinine assay has been calibrated to be traceable to IDMS.An eGFR <60 mL/min/1.73m2 for >3 months is consistent with chronic kidney disease. Refer to KDOQI guidelines for clinical interpretation.In patients with unstable renal function, e.g. those with acute kidney injury, the eGFR may not accurately reflect actual GFR. Performed By: #### C BCDIFANEESH, MG1 ####[facility] Umehpxizdk6931 [address] Glucose mass conc 106 mg/dL High 74-99 [facility] Comment on above: Result Comment: The [place] Diabetes [employer] (ADA) provides guidance for cutoff values for fasting glucose and random glucose. The ADA defines fasting as no caloric intake for at least 8 hours. Fasting plasma glucose results between 100 to 125 mg/dL indicate increased risk for diabetes (prediabetes).Fasting plasma glucose results greater than or equal to 126 mg/dL meet the criteria for diagnosis of diabetes. In the absence of unequivocal hyperglycemia, results should be confirmed by repeat testing. In a patient with classic symptoms of hyperglycemia or hyperglycemic crisis, random plasma glucose results greater than or equal to 200 mg/dL meet the criteria for diagnosis of diabetes.Reference: Standards of Medical Care in Diabetes 2016, [place] [employer]. Diabetes Care. 2016.39(Suppl 1). Performed By: #### C BCDIF, CMP, MG1 ####[facility] [address]t4[address] [place] [address] Potassium molar conc 4.0 mmol/L Normal 3.7-5.1 [facility] Comment on above: Performed By: #### C BCDIF, CMP, MG1 ####[facility] [address] [place] [address] Protein mass conc 7.0 g/dL Normal 6.3-8.0 [facility] Comment on above: Performed By: #### C BCDIF, CMP, MG1 ####[facility] [address] [place] [address] Sodium molar conc 134 mmol/L Low 136-144 [facility] Comment on above: Performed By: #### C BCDIF, CMP, MG1 ####[facility] [address] [place] [address] Urea nitrogen mass conc 19 mg/dL Normal 7-21 M [facility] Comment on above: Performed By: #### C BCDIF, CMP, MG1 ####[facility] [address] [place] [address] ED NOTEon 11-30-2017 ED NOTE HNO ID: [id number] Author: Anabel Pichardo) MARIELOS Fregoso Service: Nursing Author Type: Registered Nurse Type: ED Notes Filed: 11/30/2017 3:47 PM Note Text: Reviewed DC instructions with patient. No questions. Patient ambulated out on own with spouse. [facility] ED NOTE HNO ID: [id number] Author: Pat TapiaMedicIoana Watson Service: Emergency Medicine Author Type: Energy Engineer and Take Up Supervisor Type: ED Notes Filed: 11/30/2017 2:20 PM Note Text: Labs were drawn and sent. [facility] ED NOTE HNO ID: [id number] Author: Anabel Pichardo) [place], RN Service: Nursing Author Type: Registered Nurse Type: ED Notes Filed: 11/30/2017 1:55 PM Note Text: Patient to Xray with tech. [facility] ED NOTE HNO ID: [id number]: Dana (Rn) KIRSTEN Snowervice: (none)Author Type: Registered NurseType: ED NotesFiled: 11/30/2017 1:28 PMNote Text:Pt presents with c/o left sided rib pain s/p fall 1 month ago. Pt statesdx with rib fx 1 week ago with worsening pain. [facility] ED PROV NOTEon 11-30-2017 Protein mass conc HNO ID: [id number]: Gen (Jaxon) Efraine: (none)Author Type: Physician AssistantType: ED Provider NotesFiled: 11/30/2017 3:40 PMNote Text:ED Provider NotePatient Name: Sandie HoMRN: [id number] DATE: 11/30/17HistoryPatient presents with:Musculoskeletal Yhnbokc66 year old female with a past medical history of depression,osteoarthri tis, presents to the emergency department today with a chiefcomplaint of worsening left sided rib pain. Patient stated that she fellabout a month ago. [place] necessary had multiple CTscans that came [...] HISTORYProcedure Laterality Date- COLONOSCOP W/ OR W/O [facility] SPEC Colonoscopy- CYSTO.PANENDO Cystoscopy- KNEE SCOPE,DIAGNOSTIC 06/2010 Arthroscopy, knee- PAST SURGICAL HISTORY OF R THR x 3- PAST SURGICAL HISTORY OF Bilat TKR- PAST SURGICAL HISTORY OF L Hip pinning (later removed)- PAST SURGICAL HISTORY OF Heart Cath- PAST SURGICAL HISTORY OF Dilation of left ureter- PAST SURGICAL HISTORY OF 05/13 L knee revision- PAST SURGICAL HISTORY OF 2014 R THR - [place]- PAST SURGICAL HISTORY OF Right 07/2014 total hip replacementFAMILY HISTORYProblem Relation Age of Onset- Cancer Father- Coronary Artery Disease Father Early 70's CABG x5- Coronary Artery Disease Brother aged 52, [place]- Diabetes Brother Type II- No Family History [...] sore throat.Eyes: Negative for photophobia and visual disturbance.Respirator y: Negative for chest tightness, shortness of breath andwheezing.Cardiovasc ular: Negative for chest pain and palpitations.Gastroint estinal: Negative for abdominal pain and blood in stool.Genitourinary: Negative for dysuria and hematuria.Musculoskele nico: Negative for neck pain and neck stiffness.Skin: Negative for color change.Neurological: Positive for numbness. Negative for dizziness and headaches.Psychiatric/ Behavioral: Negative for agitation and confusion.Physical ExamBP 122/51 Pulse 94 Temp (Src) 97.4 (Tympanic) Resp 19 Ht 5' 6(1.68m) Wt 125 lb (56.7kg) SpO2 99% BMI 20.19 kg/(m2).Physical ExamConstitutional: She is oriented to person, place, and time. She appearswell-developed and well-nourished.HENT:He ad: Normocephalic and atraumatic.Eyes: Conjunctivae and EOM are normal.Neck: Normal range of motion. Neck supple.Cardiovascular: Normal rate and regular rhythm.Pulmonary/Chest : Effort normal and breath sounds normal. No respiratorydistress. She has no wheezes. She exhibits tenderness. She exhibits nolaceration, no crepitus, no edema, no swelling and no retraction.Abdominal: Soft. Bowel sounds are normal.Musculoskeletal : Normal range of motion. Arms:FROM with left [...] Ordered and Reviewed - No data to displayProceduresMedic al Decision MakingMDMThe medical record is reviewed.Triage note [...] and in writing to patient(patient guardian / shipping services sales representative), who verbalized understanding.This note was partially generated using [employer] voice recognition system,and there may be some [...] at time of disposition: stableSIGNATURE: Mathieu Jenkins (Jaxon) Vmadykjk15/31/18 1540 Normal [facility] Magnesiumon 11-30-2017 Magnesium mass conc 2.1 mg/dL Normal 1.7-2.3 [facility] Comment on above: Performed By: #### C BCDIF, CMP, MG1 ####[facility] [id number] [place] [phone] Troponin Ton 11-30-2017 Troponin T.cardiac mass conc ug/L Normal 0.000-0.029 [facility] Comment on above: Performed By: #### T NT ####[facility] [id number] [place] [phone] XR RIBS 4V HANG+UPPER/LOWER C HESTon 11-30-2017 XR RIBS 4V HANG+UPPER/LOWER CHEST * * *Final Report* * *DATE OF EXAM: Nov 30 2017 2:10PM MDX 5242 - XR RIBS 4V HANG+UPPER/LOWER CHEST / REASON: Chest wall pain * * * * Physician Interpretation * * * * HISTORY: Chest wall painPatient/Technologi st Provided History: PT STATES FALL APPROXIMATELY 1 MONTH AGO.TECHNIQUE: XR RIBS 4V HANG+UPPER/LOWER CHESTCOMPARISON: XR 07/08/2015, XR 11/24/2017RESULT:Lines, Tubes, and Devices: N/ALungs and Pleura: Overall unchanged since the prior study. Lungs are clear of consolidation. No pulmonary edema. No pleural effusion. No pneumothorax.Cardiomed iastinal silhouette: Stable contour. Aortic calcifications.Bones: Mildly displaced left second rib fracture, unchanged since 11/24/2017 but new since 07/08/2015. Probable remote healed fracture of right lateral ninth rib. Scoliosis and degenerative changes of the spine.IMPRESSION:Mildl y displaced fracture of left second rib, unchanged since 11/24/2017.Probable remote healed fracture of right lateral ninth rib.No pneumothorax.Transcrip tionist: PSCB Transcribe Date/Time: Nov 30 2017 2:28PDictated by : Rox CAPPS examination was interpreted and the report reviewed and electronically signed by: JONH DOS SANTOS MD on Nov 30 2017 2:34PM [id number] [facility] XR SHLDR >/=3V AP/ROLANDO AP/OTH R LTon 11-30-2017 XR SHLDR >/=3V AP/ROLANDO AP/OTHR LT * * *Final Report* * *DATE OF EXAM: Nov 30 2017 2:15PM MDX 5252 - XR SHLDR >/=3V AP/ROLANDO AP/OTHR LT / REASON: Fracture, shoulder * * * * Physician Interpretation * * * * HISTORY: Fracture, shoulderPatient/Techno logist Provided History: PT STATES FALL APPROXIMATELY 1 MONTH AGO.TECHNIQUE: XR SHLDR 3V AP/ROLANDO AP/OTHR LTCOMPARISON: XR 11/24/2017RESULT:Glenoh umeral joint is maintained. Acromiohumeral interval is maintained. Acromioclavicular joint is maintained. No acute fracture or dislocation.Mildly displaced left second rib fracture, unchanged.IMPRESSION:N o acute abnormality.Mildly displaced left second rib fracture, unchanged.Transcriptio nist: PSCB Transcribe Date/Time: Nov 30 2017 2:22PDictated by : JONH RASSI, MDThis examination was interpreted and the report reviewed and electronically signed by: JONH DOS SANTOS MD on Nov 30 2017 2:28PM [id number] [facility] Vital Signs Date Time Vital Sign Value Performing Clinician Facility 09-20-2024 15:39-0400 Body height 165.1 cm Franc Quezada MD Work Phone: [facility] 09-20-2024 15:33-0400 Body mass index (BMI) [Ratio] 19.1 kg/m2 Franc Quezada MD Work Phone: [facility] 09-20-2024 15:33-0400 Body weight 52.16 kg Franc Quezada MD Work Phone: [facility] 09-20-2024 15:33-0400 Diastolic blood pressure 69 mm[Hg] Franc Quezada MD Work Phone: [facility] 09-20-2024 15:33-0400 Heart rate 77 /min Franc Quezada MD Work Phone: [facility] 09-20-2024 15:33-0400 Respiratory rate 18 /min Franc Quezada MD Work Phone: [facility] 09-20-2024 15:33-0400 SaO2% (BldA) [Mass fraction] 95 % Franc Quezada MD Work Phone: [facility] 09-20-2024 15:33-0400 Systolic blood pressure 126 mm[Hg] Franc Quezada MD Work Phone: [facility] 08-28-2024 13:43-0500 Body height 165.1 cm Emmie Fontanez APRN.[employer] Work Phone: [facility] 08-28-2024 13:43-0500 Body mass index (BMI) [Ratio] 18.64 kg/m2 Emmie Fontanez APRN.[employer] Work Phone: [facility] 08-28-2024 13:43-0500 Body temperature 98.6 [degF] Emmie Fontanez APRN.[employer] Work Phone: [facility] 08-28-2024 13:43-0500 Body weight 50.8 kg Emmiemilan Fontanez [employer] Work Phone: [facility] 08-28-2024 13:43-0500 Diastolic blood pressure 67 mm[Hg] Emmie Brown [employer] SAL[employer] ENGINE[employer] Work Phone: [facility] 08-28-2024 13:43-0500 Heart rate 74 /min Emmie Brown [employer] SAL[employer] ENG[employer] Work Phone: [facility] 08-28-2024 13:43-0500 Respiratory rate 18 /min Emmie Brown [employer] SAL[employer] ENGINE[employer] Work Phone: [facility] 08-28-2024 13:43-0500 SaO2% (BldA) [Mass fraction] 97 % Emmie Fontanez [employer] SAL[employer] ENGINE[employer] Work Phone: [facility] 08-28-2024 13:43-0500 Systolic blood pressure 129 mm[Hg] Emmie Brown [employer] SAL[employer] ENGINE[employer] Work Phone: [facility] 08-15-2024 15:39-0500 Body height 165.1 cm Emmie Brown [employer] SAL[employer] ENGINE[employer] Work Phone: [facility] 08-15-2024 15:39-0500 Body mass index (BMI) [Ratio] 19.14 kg/m2 Emmie Brown [employer] SAL[employer] ENGINE[employer] Work Phone: [facility] 08-15-2024 15:39-0500 Body temperature 97.81 [degF] Emmie Brown [employer] SALES ENGINEER.[employer] Work Phone: [facility] 08-15-2024 15:39-0500 Body weight 52.16 kg Emmie Brown [employer] SAL[employer] ENGINE[employer] Work Phone: [facility] 08-15-2024 15:39-0500 Diastolic blood pressure 76 mm[Hg] Emmie Brown [employer] SAL[employer] ENGINE[employer] Work Phone: [facility] 08-15-2024 15:39-0500 Heart rate 70 /min Emmie Brown [employer] SAL[employer] ENGINE[employer] Work Phone: [facility] 08-15-2024 15:39-0500 Respiratory rate 18 /min Emmie Fontanez [employer] SAL[employer] ENGINE[employer] Work Phone: [facility] 08-15-2024 15:39-0500 SaO2% (BldA) [Mass fraction] 96 % Emmie Fontanez [employer] SAL[employer] ENGINEER.[employer] Work Phone: [facility] 08-15-2024 15:39-0500 Systolic blood pressure 129 mm[Hg] Emmie Fontanez [employer] SAL[employer] ENGINEER.[employer] Work Phone: [facility] 07-24-2024 14:59-0500 Body height 167.6 cm Emmie Fontanez [employer] SAL[employer] ENGINEER.[employer] Work Phone: [facility] Comment on above: verbal 07-24-2024 14:59-0500 Body mass index (BMI) [Ratio] 18.08 kg/m2 Emmie Fontanez APRN.[employer] Work Phone: [facility] 07-24-2024 14:59-0500 Body temperature 96.8 [degF] Emmie Fontanez [employer] ENG[employer] Work Phone: [facility] Comment on above: Took temperature reading 2 times 07-24-2024 14:59-0500 Body weight 50.8 kg Emmie Fontanez APRN.[employer] Work Phone: [facility] Comment on above: verbal 07-24-2024 14:59-0500 Diastolic blood pressure 64 mm[Hg] Emmie Fontanez APRN.[employer] Work Phone: [facility] 07-24-2024 14:59-0500 Heart rate 72 /min Emmie Fontanez [employer] SAL[employer] ENGINE[employer] Work Phone: [facility] 07-24-2024 14:59-0500 Respiratory rate 18 /min Emmie Fontanez [employer] SAL[employer] ENGINEER.[employer] Work Phone: [facility] 07-24-2024 14:59-0500 SaO2% (BldA) [Mass fraction] 96 % Emmie Fontanez [employer] ENGINEER.[employer] Work Phone: [facility] 07-24-2024 14:59-0500 Systolic blood pressure 131 mm[Hg] Emmie Fontanez [employer] Work Phone: [facility] 07-02-2024 09:30-0500 Body temperature 97 [degF] Franc Quezada MD Work Phone: [facility] 07-02-2024 09:30-0500 Diastolic blood pressure 50 mm[Hg] Franc Quezada MD Work Phone: [facility] 07-02-2024 09:30-0500 Heart rate 65 /min Franc Quezada MD Work Phone: [facility] 07-02-2024 09:30-0500 Respiratory rate 16 /min Franc Quezada MD Work Phone: [facility] 07-02-2024 09:30-0500 SaO2% (BldA) [Mass fraction] 94 % Franc Quezada MD Work Phone: [facility] 07-02-2024 09:30-0500 Systolic blood pressure 127 mm[Hg] Franc Quezada MD Work Phone: [facility] 06-28-2024 12:51-0500 Body mass index (BMI) [Ratio] 19.3 kg/m2 Franc Quezada MD Work Phone: [facility] 06-28-2024 12:51-0500 Body weight 52.61 kg Franc Quezada MD Work Phone: [facility] 06-28-2024 12:51-0500 Diastolic blood pressure 74 mm[Hg] Franc Quezada MD Work Phone: [facility] 06-28-2024 12:51-0500 Heart rate 64 /min Franc Quezada MD Work Phone: [facility] 06-28-2024 12:51-0500 Respiratory rate 18 /min Franc Quezada MD Work Phone: [facility] 06-28-2024 12:51-0500 SaO2% (BldA) [Mass fraction] 95 % Franc Quezada MD Work Phone: [facility] 06-28-2024 12:51-0500 Systolic blood pressure 121 mm[Hg] Franc Quezada MD Work Phone: [facility] 06-28-2024 11:44-0500 Body weight 54.15 kg Franc Quezada MD Work Phone: [facility] 06-25-2024 08:00-0500 Body mass index (BMI) [Ratio] 19.8 kg/m2 Franc Quezada MD Work Phone: [facility] 06-24-2024 10:55-0500 Body temperature 98.2 [degF] Franc Quezada MD Work Phone: [facility] 06-24-2024 10:55-0500 Diastolic blood pressure 45 mm[Hg] Franc Quezada MD Work Phone: [facility] 06-24-2024 10:55-0500 Heart rate 65 /min Franc Quezada MD Work Phone: [facility] 06-24-2024 10:55-0500 Respiratory rate 16 /min Franc Quezada MD Work Phone: [facility] 06-24-2024 10:55-0500 SaO2% (BldA) [Mass fraction] 94 % Franc Quezada MD Work Phone: [facility] 06-24-2024 10:55-0500 Systolic blood pressure 108 mm[Hg] Franc Quezada MD Work Phone: [facility] 06-24-2024 09:34-0500 Body mass index (BMI) [Ratio] 19.3 kg/m2 Franc Quezada MD Work Phone: [facility] 06-24-2024 09:34-0500 Body weight 52.61 kg Franc Quezada MD Work Phone: [facility] 06-19-2024 14:00-0500 Body temperature 97.6 [degF] Franc Quezada MD Work Phone: [facility] 06-19-2024 14:00-0500 Diastolic blood pressure 56 mm[Hg] Franc Quezada MD Work Phone: [facility] 06-19-2024 14:00-0500 Heart rate 60 /min Franc Quezada MD Work Phone: [facility] 06-19-2024 14:00-0500 Respiratory rate 14 /min Franc Quezada MD Work Phone: [facility] 06-19-2024 14:00-0500 SaO2% (BldA) [Mass fraction] 94 % Franc Quezada MD Work Phone: [facility] 06-19-2024 14:00-0500 Systolic blood pressure 130 mm[Hg] Franc Quezada MD Work Phone: [facility] 06-17-2024 16:34-0500 Body mass index (BMI) [Ratio] 19.3 kg/m2 Franc Quezada MD Work Phone: [facility] 06-17-2024 16:34-0500 Body weight 52.61 kg Franc Quezada MD Work Phone: [facility] 06-17-2024 00:24-0500 Body temperature 98.1 [degF] Franc Quezada MD Work Phone: [facility] 06-17-2024 00:24-0500 Diastolic blood pressure 76 mm[Hg] Franc Quezada MD Work Phone: [facility] 06-17-2024 00:24-0500 Heart rate 65 /min Franc Quezada MD Work Phone: [facility] 06-17-2024 00:24-0500 Respiratory rate 16 /min Franc Quezada MD Work Phone: [facility] 06-17-2024 00:24-0500 SaO2% (BldA) [Mass fraction] 97 % Franc Quezada MD Work Phone: [facility] 06-17-2024 00:24-0500 Systolic blood pressure 127 mm[Hg] Franc Quezada MD Work Phone: [facility] 06-16-2024 23:03-0500 Body mass index (BMI) [Ratio] 20.1 kg/m2 Franc Quezada MD Work Phone: [facility] 06-16-2024 23:03-0500 Body weight 54.9 kg Franc Quezada MD Work Phone: [facility] 06-10-2024 10:20-0500 Body weight 51.7 kg Franc Quezada MD Work Phone: [facility] 06-07-2024 10:00-0500 Body mass index (BMI) [Ratio] 18.9 kg/m2 Franc Quezada MD Work Phone: [facility] 05-24-2024 14:15-0500 Body height 157.5 cm Sara Mclaughlin MD Work Phone: [facility] 05-24-2024 14:15-0500 Body mass index (BMI) [Ratio] 20.85 kg/m2 Sara Mclaughlin MD Work Phone: [facility] 05-24-2024 14:15-0500 Body temperature 97.7 [degF] Sara Mclaughlin MD Work Phone: [facility] 05-24-2024 14:15-0500 Body weight 51.71 kg Sara Mclaughlin MD Work Phone: [facility] 05-24-2024 14:15-0500 Diastolic blood pressure 67 mm[Hg] Sara Mclaughlin MD Work Phone: [facility] 05-24-2024 14:15-0500 Heart rate 66 /min Sara Mclaughlin MD Work Phone: [facility] 05-24-2024 14:15-0500 SaO2% (BldA) [Mass fraction] 98 % Sara Mclaughlin MD Work Phone: [facility] 05-24-2024 14:15-0500 Systolic blood pressure 116 mm[Hg] Sara Mclaughlin MD Work Phone: [facility] 03-28-2024 12:55-0400 Body mass index (BMI) [Ratio] 18.64 kg/m2 Radha Calderon MD Work Phone: [facility] 03-28-2024 12:55-0400 Body weight 50.8 kg Radha Calderon MD Work Phone: 5(647)579-807340 [place] [address] 03-28-2024 12:55-0400 Diastolic blood pressure 84 mm[Hg] Radha Calderon MD Work Phone: 5(807)341-946540 [place] [address] 03-28-2024 12:55-0400 Heart rate 110 /min Radha Calderon MD Work Phone: 8(721)613-551040 [place] [address] 03-28-2024 12:55-0400 Respiratory rate 16 /min Radha Calderon MD Work Phone: 8(542)876-153140 [place] [address] 03-28-2024 12:55-0400 SaO2% (BldA) [Mass fraction] 97 % Radha Calderon MD Work Phone: [facility] 03-28-2024 12:55-0400 Systolic blood pressure 136 mm[Hg] Radha Calderon MD Work Phone: [facility] 02-22-2024 10:37-0400 Body mass index (BMI) [Ratio] 18.64 kg/m2 Radha Calderon MD Work Phone: 6(256)411-652540 [place] [address] 02-22-2024 10:37-0400 Body weight 50.8 kg Radha Calderon MD Work Phone: 2(019)076-987269 [place] [address] 02-22-2024 10:37-0400 Diastolic blood pressure 86 mm[Hg] Radha Calderon MD Work Phone: 8(072)664-201669 [place] [address] 02-22-2024 10:37-0400 Heart rate 80 /min Radha Calderon MD Work Phone: [facility] 02-22-2024 10:37-0400 Respiratory rate 20 /min Radha Calderon MD Work Phone: [facility] 02-22-2024 10:37-0400 SaO2% (BldA) [Mass fraction] 97 % Radha Calderon MD Work Phone: [facility] 02-22-2024 10:37-0400 Systolic blood pressure 152 mm[Hg] Radha Calderon MD Work Phone: [facility] 12-25-2023 12:55-0400 Diastolic blood pressure 70 mm[Hg] [address] 12-25-2023 12:55-0400 Heart rate 68 /min [address] 12-25-2023 12:55-0400 Respiratory rate 18 /min [address] 12-25-2023 12:55-0400 SaO2% (BldA) [Mass fraction] 95 % [address] 12-25-2023 12:55-0400 Systolic blood pressure 154 mm[Hg] [address] 12-25-2023 11:15-0400 Body height 165.[address] 12-25-2023 11:15-0400 Body mass index (BMI) [Ratio] 17.83 kg/m2 [address] 12-25-2023 11:15-0400 Body temperature 98.49 [degF] [address] 12-25-2023 11:15-0400 Body weight 48.[address] 12-14-2023 11:46-0400 Body height 165.1 cm Juju Hamm DO Work Phone: [facility] 12-14-2023 11:46-0400 Body mass index (BMI) [Ratio] 17.47 kg/m2 Juju Thomae DO Work Phone: [facility] 12-14-2023 11:46-0400 Body weight 47.63 kg Juju Thomae DO Work Phone: [facility] 08-18-2023 09:32-0500 Body mass index (BMI) [Ratio] 18.8 kg/m2 Tia Anglin MD MPH Work Phone: [facility] 08-18-2023 09:32-0500 Body weight 51.26 kg Tia Anglin MD MPH Work Phone: [facility] 08-18-2023 09:32-0500 Diastolic blood pressure 79 mm[Hg] Tia Anglin MD MPH Work Phone: [facility] 08-18-2023 09:32-0500 Systolic blood pressure 158 mm[Hg] Tia Anglin MD MPH Work Phone: [facility] 07-20-2023 14:32-0500 Body height 165.1 cm Tia Anglin MD MPH Work Phone: [facility] 07-20-2023 14:32-0500 Body mass index (BMI) [Ratio] 18.42 kg/m2 Tia Anglin MD MPH Work Phone: [facility] 07-20-2023 14:32-0500 Body weight 50.21 kg Tia Anglin MD MPH Work Phone: [facility] 07-20-2023 14:32-0500 Diastolic blood pressure 74 mm[Hg] Tia Anglin MD MPH Work Phone: [facility] 07-20-2023 14:32-0500 Heart rate 57 /min Tia Anglin MD MPH Work Phone: [facility] 07-20-2023 14:32-0500 Systolic blood pressure 115 mm[Hg] Tia Anglin MD MPH Work Phone: [facility] 07-11-2023 09:10-0500 Body height 165.1 cm Juju Hamm DO Work Phone: [facility] 07-11-2023 09:10-0500 Body mass index (BMI) [Ratio] 18.47 kg/m2 Juju Hamm DO Work Phone: [facility] 07-11-2023 09:10-0500 Body weight 50.35 kg Juju Hamm DO Work Phone: [facility] 06-28-2023 20:20-0500 Body height 165.[address] Sergio Bailey Work Phone: [facility] 06-28-2023 20:20-0500 Body temperature 97.6 [degF] Dr. Sergio Bailey Work Phone: [facility] 06-28-2023 20:20-0500 Diastolic blood pressure 61 mm[Hg] Dr. Sergio Bailey Work Phone: [facility] 06-28-2023 20:20-0500 Heart rate 63 /min Dr. Sergio Bailey Work Phone: [facility] 06-28-2023 20:20-0500 Respiratory rate 18 /min Dr. Sergio Bailey Work Phone: [facility] 06-28-2023 20:20-0500 SaO2% (BldA) [Mass fraction] 95 % Dr. Sergio Bailey Work Phone: [facility] 06-28-2023 20:20-0500 Systolic blood pressure 151 mm[Hg] Dr. Sergio Bailey Work Phone: [facility] 06-26-2023 14:11-0500 Body temperature 98 [degF] Dr. Sergio Bailey Work Phone: [facility] 06-26-2023 14:11-0500 Diastolic blood pressure 66 mm[Hg] Dr. Sergio Bailey Work Phone: [facility] 06-26-2023 14:11-0500 Heart rate 67 /min Dr. Sergio Bailey Work Phone: [facility] 06-26-2023 14:11-0500 Respiratory rate 16 /min Dr. Sergio Bailey Work Phone: [facility] 06-26-2023 14:11-0500 SaO2% (BldA) [Mass fraction] 94 % Dr. Sergio Bailey Work Phone: [facility] 06-26-2023 14:11-0500 Systolic blood pressure 108 mm[Hg] Dr. Sergio Bailey Work Phone: [facility] 06-26-2023 05:49-0500 Body mass index (BMI) [Ratio] 20.2 kg/m2 Dr. Sergio Bailey Work Phone: [facility] 06-26-2023 05:49-0500 Body weight 55.[address] Sergio Bailey Work Phone: [facility] 06-23-2023 06:38-0500 Inhaled oxygen flow rate 2 L/min Dr. Sergio Bailey Work Phone: [facility] 06-19-2023 14:28-0500 Body height 165.1 cm Juju Hamm DO Work Phone: [facility] 06-19-2023 14:28-0500 Body mass index (BMI) [Ratio] 18.47 kg/m2 Juju Hansel COWAN Work Phone: [facility] 06-19-2023 14:28-0500 Body weight 50.35 kg Juju Hamm DO Work Phone: [facility] 06-06-2023 13:37-0500 Body temperature 97.5 [degF] Dr. Sergio Bailey Work Phone: [facility] 06-06-2023 13:37-0500 Body weight 51.[address] Sergio Bailey Work Phone: [facility] 06-06-2023 13:37-0500 Diastolic blood pressure 80 mm[Hg] Dr. Sergio Bailey Work Phone: [facility] 06-06-2023 13:37-0500 Heart rate 87 /min Dr. Sergio Bailey Work Phone: [facility] 06-06-2023 13:37-0500 Respiratory rate 16 /min Dr. Sergio Bailey Work Phone: [facility] 06-06-2023 13:37-0500 SaO2% (BldA) [Mass fraction] 94 % Dr. Sergio Bailey Work Phone: [facility] 06-06-2023 13:37-0500 Systolic blood pressure 140 mm[Hg] Dr. Sergio Bailey Work Phone: [facility] 04-21-2023 16:21-0400 Body height 165.1 cm Sangeeta Sim MD Work Phone: [facility] 04-21-2023 16:21-0400 Body temperature 98.6 [degF] Sangeeta Sim MD Work Phone: [facility] 04-21-2023 16:21-0400 Body weight 52.8 kg Sangeeta Sim MD Work Phone: [facility] 04-21-2023 16:21-0400 Diastolic blood pressure 88 mm[Hg] Sangeeta Sim MD Work Phone: [facility] 04-21-2023 16:21-0400 Heart rate 94 /min Sangeeta Sim MD Work Phone: [facility] 04-21-2023 16:21-0400 SaO2% (BldA) [Mass fraction] 96 % Sangeeta Sim MD Work Phone: [facility] 04-21-2023 16:21-0400 Systolic blood pressure 102 mm[Hg] Sangeeta Sim MD Work Phone: [facility] 02-14-2023 22:27-0400 Diastolic blood pressure 79 mm[Hg] Dr. Sergio Bailey Work Phone: [facility] 02-14-2023 22:27-0400 Heart rate 78 /min Dr. Sergio Bailey Work Phone: [facility] 02-14-2023 22:27-0400 Respiratory rate 18 /min Dr. Sergio Bailey Work Phone: [facility] 02-14-2023 22:27-0400 SaO2% (BldA) [Mass fraction] 95 % Dr. Sergio Bailey Work Phone: [facility] 02-14-2023 22:27-0400 Systolic blood pressure 118 mm[Hg] Dr. Sergio Bailey Work Phone: [facility] 02-14-2023 17:54-0400 Body mass index (BMI) [Ratio] 19.5 kg/m2 Dr. Sergio Bailey Work Phone: [facility] 02-14-2023 17:54-0400 Body weight 53.[address] Sergio Bailey Work Phone: 3(149)180-259971 [address] 02-14-2023 16:38-0400 Body height 165.[address] Sergio Bailey Work Phone: 7(243)838-100371 [address] 02-14-2023 16:38-0400 Body temperature 97.1 [degF] Dr. Sergio Bailey Work Phone: 0(916)647-168171 [address] 02-13-2023 15:15-0400 Diastolic blood pressure 60 mm[Hg] Dr. Sergio Bailey Work Phone: 3(062)611-395671 [address] 02-13-2023 15:15-0400 Respiratory rate 18 /min Dr. Sergio Bailey Work Phone: [facility] 02-13-2023 15:15-0400 SaO2% (BldA) [Mass fraction] 97 % Dr. Sergio Bailey Work Phone: [facility] 02-13-2023 15:15-0400 Systolic blood pressure 165 mm[Hg] Dr. Sergio Bailey Work Phone: [facility] 02-13-2023 11:24-0400 Body height 165.[address] Sergio Bailey Work Phone: [facility] 02-13-2023 11:24-0400 Body mass index (BMI) [Ratio] 19.4 kg/m2 Dr. Sergio Bailey Work Phone: [facility] 02-13-2023 11:24-0400 Body temperature 97.8 [degF] Dr. Sergio Bailey Work Phone: [facility] 02-13-2023 11:24-0400 Body weight [address] Sergio Bailey Work Phone: 4(486)797-895547 [place] [address] 02-13-2023 11:24-0400 Heart rate 65 /min Dr. Sergio Bailey Work Phone: [phone])[phone] [address] 01-27-2023 10:08-0400 Diastolic blood pressure 59 mm[Hg] Dr. Sergio Bailey Work Phone: 5(461)[phone] [place] [address] 01-27-2023 10:08-0400 Heart rate 70 /min Dr. Sergio Bailey Work Phone: 3(784)[phone] [place] [address] 01-27-2023 10:08-0400 Systolic blood pressure 114 mm[Hg] Dr. Sergio Bailey Work Phone: 9(878)[phone] [address] 01-27-2023 09:52-0400 Body temperature 97.5 [degF] Dr. Sergio Bailey Work Phone: 6(093)004-094271 [address] 01-27-2023 09:52-0400 Respiratory rate 16 /min Dr. Sergio Bailey Work Phone: 4(733)[phone] [address] 01-27-2023 09:52-0400 SaO2% (BldA) [Mass fraction] 100 % Dr. Sergio Bailey Work Phone: 7(448)[phone] [place] [address] 01-27-2023 06:00-0400 Body mass index (BMI) [Ratio] 18.1 kg/m2 Dr. Sergio Bailey Work Phone: 0(659)[phone] [address] 01-27-2023 06:00-0400 Body weight 49.[address] Sergio Bailey Work Phone: 5(143)[phone] [place] [address] 01-26-2023 09:01-0400 Inhaled oxygen flow rate 2 L/min Dr. Sergio Bailey Work Phone: 1(699)[phone] [place] [address] 01-25-2023 22:30-0400 Body temperature 98.1 [degF] [facility] 01-25-2023 22:30-0400 Diastolic blood pressure 78 mm[Hg] [facility] 01-25-2023 22:30-0400 Heart rate 81 /min [facility] 01-25-2023 22:30-0400 Respiratory rate 17 /min [facility] 01-25-2023 22:30-0400 SaO2% (BldA) [Mass fraction] 96 % [facility] 01-25-2023 22:30-0400 Systolic blood pressure 142 mm[Hg] [facility] 01-25-2023 15:49-0400 Body mass index (BMI) [Ratio] 18 kg/m2 [facility] 01-25-2023 15:49-0400 Body weight 50.8 kg [facility] 01-25-2023 15:38-0400 Body height 167.64 cm [facility] 06-17-2022 12:11-0500 Body temperature 96.21 [degF] García Pendlebury [employer] Work Phone: [facility] 06-17-2022 12:11-0500 Body weight 54.98 kg García Pendlebury [employer] SAL[employer] ENGINEER.[employer] Work Phone: [facility] 06-17-2022 12:11-0500 Diastolic blood pressure 76 mm[Hg] García Pendlebury [employer] SALES ENGINEER.[employer] Work Phone: [facility] 06-17-2022 12:11-0500 Heart rate 71 /min García Pendlebury [employer] SALES ENGINEER.[employer] Work Phone: [facility] 06-17-2022 12:11-0500 Respiratory rate 18 /min García Pendlebury [employer] SALES ENGINEER.[employer] Work Phone: [facility] 06-17-2022 12:11-0500 SaO2% (BldA) [Mass fraction] 98 % García Pendlejazzy [employer] SALES ENGINEER.[employer] Work Phone: [facility] 06-17-2022 12:11-0500 Systolic blood pressure 122 mm[Hg] García Pendlebury [employer] SALES ENGINEER.[employer] Work Phone: [facility] 06-16-2022 11:51-0500 Body temperature 97.3 [degF] Sofia Denbow PA-C Work Phone: [facility] 06-16-2022 11:51-0500 Body weight 54.8 kg Sofia Denbow PA-C Work Phone: [facility] 06-16-2022 11:51-0500 Diastolic blood pressure 78 mm[Hg] Sofia Denbow PA-C Work Phone: [facility] 06-16-2022 11:51-0500 Heart rate 92 /min Sofia Denbow PA-C Work Phone: [facility] 06-16-2022 11:51-0500 Respiratory rate 18 /min Sofia Denbow PA-C Work Phone: [facility] 06-16-2022 11:51-0500 SaO2% (BldA) [Mass fraction] 96 % Sofia Denbow PA-C Work Phone: [facility] 06-16-2022 11:51-0500 Systolic blood pressure 126 mm[Hg] Sofia Denbow PA-C Work Phone: [facility] 05-09-2022 08:04-0500 Body weight 55.34 kg Ian Holley PA-C Work Phone: [facility] 04-21-2022 19:27-0400 Diastolic blood pressure 71 mm[Hg] [facility] 04-21-2022 19:27-0400 Heart rate 73 /min [facility] 04-21-2022 19:27-0400 Respiratory rate 18 /min [facility] 04-21-2022 19:27-0400 SaO2% (BldA) [Mass fraction] 93 % [facility] 04-21-2022 19:27-0400 Systolic blood pressure 166 mm[Hg] [facility] 04-21-2022 15:49-0400 Body height 167.64 cm [facility] 04-21-2022 15:49-0400 Body mass index (BMI) [Ratio] 20.1 kg/m2 [facility] 04-21-2022 15:49-0400 Body temperature 97.2 [degF] [facility] 04-21-2022 15:49-0400 Body weight 56.69 kg [facility] 03-07-2022 04:02-0400 Diastolic blood pressure 71 mm[Hg] [facility] Work Phone: 03-07-2022 04:02-0400 Heart rate 88 /min [facility] Work Phone: 03-07-2022 04:02-0400 Respiratory rate 18 /min [facility] Work Phone: 03-07-2022 04:02-0400 SaO2% (BldA) [Mass fraction] 96 % [facility] Work Phone: 03-07-2022 04:02-0400 Systolic blood pressure 144 mm[Hg] [facility] Work Phone: 03-07-2022 00:54-0400 Body mass index (BMI) [Ratio] 20 kg/m2 [facility] Work Phone: 03-07-2022 00:54-0400 Body temperature 98.1 [degF] [facility] Work Phone: 03-07-2022 00:54-0400 Body weight 56.2 kg [facility] Work Phone: 03-03-2022 21:41-0400 Diastolic blood pressure 62 mm[Hg] [facility] Work Phone: 03-03-2022 21:41-0400 Heart rate 91 /min [facility] Work Phone: 03-03-2022 21:41-0400 Respiratory rate 17 /min [facility] Work Phone: 03-03-2022 21:41-0400 SaO2% (BldA) [Mass fraction] 99 % [facility] Work Phone: 03-03-2022 21:41-0400 Systolic blood pressure 91 mm[Hg] [facility] Work Phone: 03-03-2022 16:31-0400 Body height 165.1 cm [facility] Work Phone: 03-03-2022 16:31-0400 Body mass index (BMI) [Ratio] 20.7 kg/m2 [facility] Work Phone: 03-03-2022 16:31-0400 Body temperature 97.7 [degF] [facility] Work Phone: 03-03-2022 16:31-0400 Body weight 56.4 kg [facility] Work Phone: 02-21-2022 09:53-0400 Body height 167.6 cm David Devin PA-C Work Phone: [facility] 02-21-2022 09:53-0400 Body temperature 97.3 [degF] David Devin PA-C Work Phone: [facility] 02-21-2022 09:53-0400 Body weight 56.25 kg David Devin PA-C Work Phone: [facility] 02-21-2022 09:53-0400 Diastolic blood pressure 84 mm[Hg] David [place] PA-C Work Phone: [facility] 02-21-2022 09:53-0400 Heart rate 96 /min David [place] PA-C Work Phone: [facility] 02-21-2022 09:53-0400 Respiratory rate 14 /min David Devin PA-C Work Phone: [facility] 02-21-2022 09:53-0400 SaO2% (BldA) [Mass fraction] 95 % David [place] PA-C Work Phone: [facility] 02-21-2022 09:53-0400 Systolic blood pressure 120 mm[Hg] David [place] PA-C Work Phone: [facility] 11-17-2021 11: Body height 167.6 cm Ian Holley PA-C Work Phone: [facility] 11-17-2021 11: Body weight 55.79 kg Ian Holley PA-C Work Phone: [facility] Encounters Encounter Date Encounter Type Care Provider Facility Start: 11-19-2024 ambulatory Franc Quezada [facility] Start: 11-13-2024 End: 11-13-2024 ambulatory Franc Quezada MD Work Phone: [facility] Work Phone: Start: 11-13-2024 End: 11-13-2024 Patient encounter procedure Yecenia COATES [facility] Work Phone: Start: 11-13-2024 End: 11-13-2024 ambulatory Yecenia Pace Facility:[facility] Start: 11-06-2024 End: 11-06-2024 ambulatory Franc Quezada MD Work Phone: [facility] Work Phone: Start: 11-06-2024 End: 11-06-[address] Andrew Dover MD -[facility] Work Phone: Start: 11-06-2024 End: 11-06-2024 ambulatory Andrew Dover Facility:[facility] Start: 10-24-2024 ambulatory Franc Quezada Facility:[facility] Start: 09-20-2024 End: 09-20-2024 Patient encounter procedure Vilma Vasquez [facility] Work Phone: Start: 09-20-2024 End: 09-20-2024 ambulatory Franc Quezada MD Work Phone: [facility] Work Phone: Start: 09-20-2024 End: 09-20-2024 ambulatory Vilma Vasquez Facility:[facility] Start: 08-30-2024 End: 08-30-2024 Follow-up encounter Tyrone Laguna DO Work Phone: [facility] Start: 08-28-2024 End: 08-28-2024 Office outpatient visit 25 minutes Emmie Fontanez APRN.[employer] Work Phone: [facility] Comment on above: UTI symptoms (Primar y Dx); Burning with urination; Recurrent UTI (urinary tract infection) Start: 08-23-2024 End: 08-23-2024 ambulatory Travis Madden DO Work Phone: [facility] Comment on above: Urine culture result s Start: 08-23-2024 End: 08-23-2024 E-mail encounter from caregiver Travis Madden DO Work Phone: [facility] Start: 08-19-2024 End: 08-26-2024 Follow-up encounter Travis Madden DO Work Phone: [facility] Start: 08-15-2024 End: 08-15-2024 Office outpatient visit 25 minutes Emmie Fontanez APRN.[employer] Work Phone: [facility] Comment on above: UTI symptoms (Primar y Dx); Recurrent UTI (urinary tract infection) Start: 07-26-2024 End: 07-26-2024 Telephone encounter Emmie Fontanez APRN.CNP Work Phone: [facility] Start: 07-24-2024 End: 07-24-2024 Office outpatient visit 25 minutes Emmie Fontanez APRN.[employer] Work Phone: [facility] Comment on above: UTI symptoms (Primar y Dx); Acute cystitis with hematuria Start: 07-22-2024 End: 07-23-2024 Patient encounter procedure [facility] Provider [facility] Start: 07-15-2024 End: 07-15-[address] Franc Quezada MD -Radiology, [place] Work Phone: Start: 07-15-2024 End: 07-15-2024 ambulatory Franc Quezada Facility:[facility] Start: 07-08-2024 End: 07-08-[address] Franc Quezada MD -Ultrasound, [facility] Work Phone: Start: 07-08-2024 End: 07-08-2024 ambulatory [facility] Facility:[facility] Start: 07-05-2024 End: 07-05-2024 ambulatory SERGIO Jensen BAILEY Facility:[facility] Start: 07-05-2024 End: 07-05-2024 Patient encounter procedure Jeevan Funez PA-C Work Phone: Orthopaedics Comment on above: Strain of left quadr iceps muscle, initial encounter (Primary Dx); Status post revision of total replacement of left knee; Tearing of muscle Start: 07-05-2024 End: 07-05-2024 Subsequent hospital visit by physician [facility] Comment on above: 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 Franc Quezada MD -Laboratory, [facility] Start: 07-04-2024 End: 07-04-2024 ambulatory [facility] Facility:[facility] Start: 07-01-2024 Non-patient / Non-visit Dr. 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 Khalida Abad [facility] Work Phone: Start: 06-28-2024 End: 06-28-2024 Patient encounter procedure Vilma COATES -[facility] Work Phone: Start: 06-28-2024 End: 06-28-2024 [facility] Start: 06-24-2024 Non-patient / Non-visit Rosalio Holly nd DO -[facility] Start: 06-24-2024 End: 06-24-2024 Admission to same day surgery center Rosalio Bonilla DO -Endoscopy Work Phone: Start: 06-24-2024 End: 06-24-2024 ambulatory [facility] Facility:[facility] Start: 06-19-2024 ambulatory [facility] Facility:[facility] Start: 06-19-2024 End: 07-02-2024 Evaluation and management of inpatient Dr. Ken Scott MD -Transitional Care Unit Start: 06-19-2024 Non-patient / Non-visit Dr. Murrell -[facility] Work Phone: Start: 06-18-2024 Non-patient / Non-visit Dr. Murrell [facility] Work Phone: Start: 06-17-2024 Non-patient / Non-visit Dr. Aranza verduzco MD -[facility] Work Phone: Start: 06-17-2024 End: 06-19-2024 ambulatory [facility] Facility:[facility] Start: 06-17-2024 End: 06-19-2024 Evaluation and management of inpatient Dr. Fito Kessler DO -Medical Surgical 3 Work Phone: Start: 06-16-2024 End: 06-17-2024 Emergency department patient visit Brent Nuñez DO -Emergency Department Work Phone: Start: 06-10-2024 End: 06-10-2024 Admission to same day surgery center Dr. Ashish Rojas MD -Facing Machine Operator/Special Procedures Work Phone: Start: 06-10-2024 End: 06-10-2024 ambulatory [facility] Facility:[facility] Start: 05-24-2024 End: 05-24-2024 Office consultation new/estab patient 40 min Sara Mclaughlin MD Work Phone: [facility] Comment on above: Recurrent UTI (Prima ry Dx); OAB (overactive bladder) Start: 05-24-2024 ambulatory SARA K ARNOLDO Kaminski ity:[facility] Start: 05-22-2024 End: 05-22-2024 ambulatory Chalon Judi Facility:[facility] Start: 2024 End: 2024 Emergency department patient visit Chalon Judi Facility:[facility] Start: 05-08-2024 End: 05-08-2024 ambulatory Chalon Judi Facility:[facility] Start: 05-08-2024 End: 05-08-2024 ambulatory Chalon Judi Facility:[facility] Start: 05-07-2024 End: 05-07-2024 ambulatory Chalon Judi Facility:[facility] Start: 04-22-2024 ambulatory Chalon Judi Facility:[facility] Start: 04-22-2024 End: 04-22-2024 ambulatory Chalon Judi Facility:[facility] Start: 04-12-2024 End: 04-12-2024 ambulatory [facility] Nurse Ortega Work Phone: [facility] Start: 04-12-2024 End: 04-12-2024 Patient encounter procedure [facility] Nurse Ortega Work Phone: [facility] [place] Start: 04-12-2024 End: 04-12-2024 ambulatory Chalon Judi Facility:[facility] Start: 04-11-2024 ambulatory VICKY CAMPO MD~[id number] [facility] Start: 03-28-2024 End: 03-28-2024 Office outpatient visit 15 minutes Radha Calderon MD Work Phone: [facility] Comment on above: Overactive bladder ( Primary Dx); Urge incontinence of urine Start: 03-21-2024 End: 03-21-2024 ambulatory Chalon Judi Facility:[facility] Start: 03-13-2024 End: 03-13-2024 ambulatory Chalon Judi Facility:[facility] Start: 02-22-2024 End: 02-22-2024 Office outpatient visit 25 minutes Radha Calderon MD Work Phone: [facility] Comment on above: Recurrent UTI (Prima ry Dx); OAB (overactive bladder); Urge incontinence of urine Start: 02-22-2024 End: 02-22-[address] [facility] Start: 02-08-2024 End: 02-08-2024 ambulatory Franc Quezada Facility:[facility] Start: 01-18-2024 End: 01-19-2024 Evaluation and management of inpatient Nilesh Gaona Facility:[facility] Start: 01-18-2024 ambulatory Nilesh Gaona Facili ty:[facility] Start: 01-16-2024 End: 01-16-2024 ambulatory VICKY PERRY MD~[id number] [facility] Start: 12-28-2023 End: 12-28-2023 ambulatory VICKY PERRY MD~[id number] [facility] Start: 12-25-2023 End: 12-25-2023 Subsequent hospital visit by physician Juju Hamm DO Work Phone: [facility] [place] Comment on above: Mariah esophagitis (Multi) (Primary Dx); Dysphagia, unspecified type Start: 12-25-2023 End: 12-25-2023 ambulatory [facility] Start: 12-14-2023 End: 12-14-2023 Office outpatient visit 25 minutes Juju Hamm DO Work Phone: [facility] Comment on above: Gastroesophageal ref lux disease with esophagitis and hemorrhage (Primary Dx); 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; Esophageal dysphagia Start: 12-14-2023 End: 12-14-2023 ambulatory [facility] Ambulatory Start: 11-29-2023 End: 11-29-[address] [facility] Start: 11-21-2023 End: 11-21-2023 ambulatory BRIT DE LA PAZ MD~[id number] [facility] Start: 10-23-2023 End: 10-23-2023 ambulatory SERGIO BAILEY [facility] Start: 10-19-2023 End: 10-19-[address] Sergio Bailey Work Phone: [facility] Work Phone: Start: 10-19-2023 End: 10-19-[address] Sergio Bailey Work Phone: [facility]-Laboratory, [facility] Start: 08-31-2023 End: 08-31-[address] Sergio Bailey Work Phone: [facility] Work Phone: Start: 08-31-2023 End: 08-31-[address] Sergio Bailey Work Phone: [facility]-Laboratory, Specimen Work Phone: Start: 08-24-2023 End: 08-24-2023 ambulatory SERGIO [facility] Start: 08-24-2023 End: 08-24-2023 Patient encounter procedure Tia Anglin MD MPH Work Phone: [facility] Comment on above: OAB (overactive blad jono) (Primary Dx) Start: 08-18-2023 End: 08-19-2023 ambulatory TIA [facility] Start: 08-18-2023 End: 08-18-2023 Patient encounter procedure Tia Anglin MD MPH Work Phone: [facility] Comment on above: OAB (overactive blad jono) (Primary Dx) Start: 08-11-2023 End: 08-11-2023 ambulatory SERGIO BAILEY [facility] Start: 07-20-2023 End: 07-20-2023 ambulatory TIA [facility] Start: 07-20-2023 End: 07-20-2023 Office consultation new/estab patient 80 min Tia Anglin MD MPH Work Phone: [facility] [place] Comment on above: Bladder pain (Primar y Dx); Pelvic floor dysfunction in female; OAB (overactive bladder) Start: 07-11-2023 End: 07-11-2023 Office outpatient visit 25 minutes Juju Hamm Work Phone: [facility] Comment on above: Irritable bowel synd christoph with constipation (Primary Dx); Ischemic colitis (CMS/HCC); Peptic ulcer Start: 07-11-2023 End: 07-11-2023 ambulatory [facility] Ambulatory Start: 06-30-2023 Non-patient / Non-visit Dr. Anuel Bailey Work Phone: [facility] Start: 06-30-2023 End: 06-30-[address] Sergio Bailey Work Phone: [facility] Work Phone: Start: 06-30-2023 End: 06-30-[address] Sergio Bailey Work Phone: [facility] Start: 06-28-2023 End: 06-28-2023 Emergency department patient visit Dr. Sergio Bailey Work Phone: [facility]-Emergency Department Work Phone: Start: 06-26-2023 Non-patient / Non-visit Dr. Anuel Bailey Work Phone: [facility] Work Phone: Start: 06-25-2023 Non-patient / Non-visit Dr. Anuel Bailey Work Phone: [facility] Work Phone: Start: 06-24-2023 Non-patient / Non-visit Dr. Anuel Bailey Work Phone: [facility] Start: 06-24-2023 Non-patient / Non-visit Dr. Anuel Bailey Work Phone: [facility] Work Phone: Start: 06-23-2023 Non-patient / Non-visit Dr. Anuel Bailey Work Phone: [facility] Start: 06-23-2023 Non-patient / Non-visit Dr. Anuel Bailey Work Phone: [facility] Work Phone: Start: 06-22-2023 Non-patient / Non-visit Dr. Anuel Bailey Work Phone: [facility] Start: 06-22-2023 Non-patient / Non-visit Dr. Anuel Bailey Work Phone: [facility] Work Phone: Start: 06-22-2023 Non-patient / Non-visit Dr. Anuel Bailey Work Phone: [facility] Start: 06-21-2023 End: 06-26-2023 Evaluation and management of inpatient 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 Sergio Bailey Work Phone: [facility] Work Phone: Start: 05-11-2023 End: 05-11-[address] Sergio Bailey Work Phone: [facility] Work Phone: Start: 05-11-2023 End: 05-11-[address] Sergio Bailey Work Phone: [facility] Start: 04-21-2023 End: 04-21-2023 Patient encounter procedure Sangeeta Sim MD Work Phone: General Surgery Comment on above: Continuous severe ab dominal pain (Primary Dx); Ischemic colitis (HCC) Start: 04-17-2023 End: 04-17-2023 ambulatory SERGIO BAILEY [facility] Start: 02-22-2023 Telephone encounter Zoie Mckeon RN NOC Comment on above: Follow Up Phone Call (All Clear.) Start: 02-21-2023 Telephone encounter Sofia Baugh NOC Comment on above: Follow Up (Gyant int eraction - F/U - attempt made. No answer.) Start: 02-16-2023 End: 02-16-2023 Evaluation and management of inpatient SERGIO BAILEY Facility:[facility] Start: 02-15-2023 End: 02-18-2023 Evaluation and management of inpatient GARCÍA OCHOA ALEX Facility:[facility] Start: 02-14-2023 End: 02-14-2023 Emergency department patient visit Dr. Sergio Bailey Work Phone: [facility]-Emergency Department Work Phone: Start: 02-13-2023 End: 02-13-2023 Emergency department patient visit Dr. Sergio Bailey Work Phone: [facility]-Emergency Department Work Phone: Start: 01-26-2023 Non-patient / Non-visit Dr. Anuel Bailey Work Phone: [facility] Start: 01-25-2023 End: 01-27-2023 Evaluation and management of inpatient [facility]-Progressive Care Unit Work Phone: Start: 01-25-[address] [facility] Work Phone: Start: 10-26-2022 End: 10-26-2022 ambulatory [facility] Work Phone: Start: 10-26-2022 End: 10-26-2022 Patient encounter procedure [facility], [facility] Start: 10-18-2022 End: 10-18-2022 ambulatory [facility] Work Phone: Start: 10-18-2022 End: 10-18-2022 Patient encounter procedure [facility] Start: 08-25-2022 End: 08-25-2022 ambulatory [facility] Work Phone: Start: 08-25-2022 End: 08-25-2022 Patient encounter procedure [facility]-Laboratory, Specimen Start: 08-12-2022 End: 08-12-2022 ambulatory [facility] Work Phone: Start: 08-12-2022 End: 08-12-2022 Patient encounter procedure [facility] Start: 07-13-2022 End: 07-13-2022 ambulatory [facility] Work Phone: Start: 07-13-2022 End: 07-13-2022 [facility] Start: 07-06-2022 End: 07-06-2022 ambulatory [facility] Work Phone: Start: 07-06-2022 End: 07-06-2022 Patient encounter procedure [facility] Start: 06-19-2022 Telephone encounter Shelbi Lei APRN.[employer] Work Phone: [facility] Comment on above: Results Start: 06-17-2022 Telephone encounter Sangeeta Sousa MD Work Phone: Ambulatory Surgery Comment on above: Patient Update Start: 06-17-2022 End: 06-17-2022 Office outpatient visit 15 minutes García Alvarez APRN.[employer] Work Phone: [facility] Comment on above: Pharyngitis, unspeci fied etiology (Primary Dx) Start: 06-16-2022 End: 06-16-2022 Patient encounter procedure Sofia Delgado PA-C Work Phone: [facility] Comment on above: Urinary frequency (P rimary Dx) Start: 05-13-2022 Telephone encounter Sergio Bailey MD Work Phone: NOC Comment on above: Follow Up Phone Call (Post discharge phone call attempt made. No answer) Results Start: 05-12-2022 End: 05-12-2022 Subsequent hospital visit by physician [facility] Work Phone: Nuclear Medicine Comment on above: RUQ abdominal pain [ R10.11] Start: 05-09-2022 End: 05-09-2022 Patient encounter procedure Ian Holley PA-C Work Phone: Orthopaedics Comment on above: Trochanteric bursiti s of right hip (Primary Dx); Status post total replacement of left hip; History of revision of total replacement of right hip joint Start: 04-21-2022 End: 04-21-2022 [facility] Start: 04-20-2022 Telephone encounter Sangeeta Sousa MD Work Phone: Internal Medicine [place] Comment on above: Appointment Start: 04-13-2022 Telephone encounter Sangeeta Sousa MD Work Phone: General Surgery Comment on above: Results Start: 04-11-2022 End: 04-11-2022 Subsequent hospital visit by physician [facility] Work Phone: Radiology Comment on above: RUQ abdominal pain [ R10.11] Start: 03-18-2022 Telephone encounter Sangeeta Sousa MD Work Phone: General Surgery Comment on above: Results Start: 03-07-2022 End: 03-07-2022 Emergency department patient visit [facility] Start: 03-03-2022 End: 03-03-2022 [facility] Start: 02-21-2022 Telephone encounter David costa PA-C Work Phone: General Surgery Comment on above: 03/10 colon/egd lodi Start: 02-21-2022 End: 02-21-2022 Patient encounter procedure David Beltran PA-C Work Phone: General Surgery Comment on above: Generalized abdomina l pain (Primary Dx); Change in bowel habits Start: 12-31-2021 End: 12-31-2021 Patient encounter procedure [facility] Start: 11-17-2021 End: 11-17-2021 Patient encounter procedure Ian Holley PA-C Work Phone: Orthopaedics Comment on above: Trochanteric bursiti s of both hips (Primary Dx); History of total hip arthroplasty, left; History of revision of total replacement of right hip joint Start: 11-17-2021 End: 11-17-2021 Subsequent hospital visit by physician Jose Bowersay A21 Radiology Comment on above: Pain [R52] Start: 11-10-2021 Orders Only Ian stratton PA-C Work Phone: Orthopaedics Comment on above: Pain (Primary Dx) Start: 10-06-2021 End: 10-06-2021 ambulatory Bridger Spencer PT Work Phone: [facility] Comment on above: Cervical spondylosis without myelopathy (Primary Dx); Spinal stenosis of lumbar region, unspecified whether neurogenic claudication present; Lumbar spondylosis Start: 09-29-2021 End: 09-29-2021 ambulatory Bridger Spencer PT Work Phone: [facility] Comment on above: Cervical spondylosis without myelopathy (Primary Dx); Spinal stenosis of lumbar region, unspecified whether neurogenic claudication present; Lumbar spondylosis Start: 09-22-2021 End: 09-22-2021 ambulatory Bridger Spencer PT Work Phone: [facility] Comment on above: Cervical spondylosis without myelopathy (Primary Dx); Spinal stenosis of lumbar region, unspecified whether neurogenic claudication present; Lumbar spondylosis Start: 01-21-2021 End: 01-21-2021 Subsequent hospital visit by physician Elissa Suero [facility] Work Phone: Radiology Comment on above: Status post total re placement of both hips [Z96.643] Start: 04-12-2018 End: 04-12-2018 Emergency department patient visit [facility] Start: 11-30-2017 End: 11-30-2017 Emergency department patient visit [facility] Procedures Date Procedure Procedure Detail Performing Clinician Start: 11-06-2024 CT of chest without contrast Franc Quezada MD Work Phone: Start: 08-28-2024 Urnls dip stick/tablet rgnt auto w/o microscopy Emmie Fontanez [employer] Work Phone: Start: 08-15-2024 Urnls dip stick/tablet rgnt auto w/o microscopy Emmie Fontanez [employer] SAL[employer] ENGINEER.[employer] Work Phone: Start: 07-24-2024 Urnls dip stick/tablet rgnt auto w/o microscopy Emmie Fontanez [employer] SAL[employer] ENGINEER.[employer] Work Phone: Start: 07-15-2024 X-ray of chest, PA and lateral views Franc Quezada MD Work Phone: Start: 07-08-2024 US scan of bladder Franc Quezada MD Work Phone: Start: 07-05-2024 Radex hip unilateral with pelvis 2-3 views Jeevan Funez PA-C Work Phone: Start: 07-05-2024 Follow-up visit Follow-up SARA MCLAUGHLIN Start: 07-01-2024 Urine culture Franc Quezada MD Work Phone: Start: 06-29-2024 Measurement of occult blood in stool specimen using immunoassay Franc Quezada MD Work Phone: Start: 06-28-2024 Plain X-ray abdomen Franc Quezada MD Work Phone: Start: 06-26-2024 Urine culture Franc Quezada MD Work Phone: Start: 06-26-2024 Plain X-ray abdomen Franc Quezada MD Work Phone: Start: 06-24-2024 Viral antigen assay Franc Quezada MD Work Phone: Start: 06-17-2024 Urine culture Franc Quezada MD Work Phone: Start: 06-17-2024 MRI of lower extremity Franc Quezada MD Work Phone: Start: 06-16-2024 Plain radiography of pelvis Franc Quezada MD Work Phone: Start: 06-16-2024 XR knee, 3 views Franc Quezada MD Work Phone: Start: 12-25-2023 Egd transoral biopsy single/multiple Juju Hamm DO Work Phone: Start: 08-31-[address] Sergio Bailey Work Phone: Start: 08-24-2023 MEASURE POST VOID RESIDUAL TIA ANGLIN Start: 08-24-2023 MEASURE POST VOID RESIDUAL Tia tinoco MD MPH Work Phone: Start: 08-18-2023 CYSTOSCOPY WITH BOTOX INJECTION TIA RONQUILLO Start: 08-18-2023 POCT UA AUTOMATED MANUALLY RESULTED TIA ANGLIN Start: 08-18-2023 CYSTOSCOPY WITH BOTOX INJECTION Tia dotson MD MPH Work Phone: Start: 08-18-2023 Urnls dip stick/tablet rgnt auto w/o microscopy Tia Anglin MD MPH Work Phone: Start: 07-20-2023 AMB REFERRAL TO UROGYNECOLOGY TIA GRAYSON Start: 07-11-2023 Follow-up visit Follow-up JUJU HAMM Start: 06-23-[address] Sergio Bailey Work Phone: Start: 06-23-2023 Plain chest X-ray Dr. Sergio Bailey Work Phone: Start: 06-22-2023 Radionuclide gastric emptying study Dr. Sergio Bailey Work Phone: Start: 06-22-[address] Sergio schmidt Work Phone: Start: 06-22-2023 MRI of lower extremity Dr. Segrio Bailey Work Phone: Start: 06-21-2023 Radiologic examination of knee Dr. Sergio Bailey Work Phone: Start: 06-21-2023 Measurement of occult blood in stool specimen using immunoassay Dr. Sergio Bailey Work Phone: Start: 02-15-2023 Antibody screen GARCÍA OBANDO Comment on above: Order Comment: Specimen Type: BLOOD SPEC IMEN Ordering Facility: [facility] Address: [address] [place], [place] [id number] Performed By: #### T SCR #### [facility] CLIA [id number] [address] [place] [address] Start: 02-14-[address] Sergio Bailey Work Phone: Start: 02-13-2023 Computed tomography of abdomen and pelvis with intravenous contrast Dr. Sergio Bailey Work Phone: Start: 01-26-2023 Cardiovascular stress test using pharmacologic stress agent Dr. Sergio Bailey Work Phone: Start: 01-25-2023 Plain chest X-ray Start: 10-26-2022 US urinary tract Start: 06-17-2022 STREP A MOLECULAR (POC) García hester APRN.CNP Work Phone: Start: 05-12-2022 Hepatobil syst imag inc gb w/pharma intervenj Sangeeta Sim MD Work Phone: Start: 04-21-2022 Plain x-ray of pelvis and lower extremity Start: 04-21-2022 X-ray of lumbar spine, two or three views Start: 04-11-2022 Us abdominal real time w/image limited Sangeeta Sim MD Work Phone: Start: 03-07-2022 CT of head without contrast Start: 03-03-2022 Computed tomography of abdomen and pelvis with intravenous contrast Start: 12-31-2021 Diagnostic radiography of abdomen Start: 11-17-2021 Radex hips bilateral with pelvis minimum 5 views Ian Holley PA-C Work Phone: Start: 01-21-2021 End: 01-21-2021 Radex hip unilateral with pelvis 2-3 views Moshe Paz MD Work Phone: Bacteria identified in Urine by Culture Urine culture Urine culture Plan of Treatment Date Care Activity Detail Author Start: 12-24-2026 Esophagogastroduodenoscopy EGD [facility] Start: 06-22-2026 Esophagogastroduodenoscopy EGD [facility] Start: 05-30-2026 DTaP/Tdap/Td Vaccines (3 - Td or Tdap) DTaP/Tdap/Td Vaccines (3 - Td or Tdap) [facility] Start: 05-30-2026 Tetanus vaccination TETANUS [facility] Start: 05-30-2026 Urine microalbumin profile [facility] Start: 02-16-2026 DIABETES SCREEN DIABETES SCREEN [facility] Start: 02-16-2026 Diabetes Screening Diabetes Screening [facility] Start: 05-02-2025 DIABETES SCREEN DIABETES SCREEN [facility] Start: 09-23-2024 End: 09-23-2024 Patient encounter procedure 09/23/2024 8:30 AM EDT Office Visit Pulmonary [address] [place] [id number] Hugo Guillory MD [address] [place] [address] COPD Pulmonary Comment on above: COPD Start: 08-28-2024 End: 11-27-2024 Bacteria identified in Urine by Culture BACTERIAL CULTURE, URINE Microbiology Routine UTI symptoms Burning with urination Recurrent UTI (urinary tract infection) Expected: 08/28/2024, Expires: 11/27/2024 [facility] Work Phone: Comment on above: Expected: 08/28/2024, Expires: Start: 08-15-2024 End: 11-14-2024 Bacteria identified in Urine by Culture BACTERIAL CULTURE, URINE Microbiology Routine Recurrent UTI (urinary tract infection) Expected: 08/15/2024, Expires: 11/14/2024 [facility] Work Phone: Comment on above: Expected: 08/15/2024, Expires: Start: 07-24-2024 End: 10-23-2024 Bacteria identified in Urine by Culture BACTERIAL CULTURE, URINE Microbiology Routine UTI symptoms Acute cystitis with hematuria Expected: 07/24/2024, Expires: 10/23/2024 [facility] Work Phone: Comment on above: Expected: 07/24/2024, Expires: Start: 07-05-2024 End: 07-05-2024 Patient encounter procedure Radiology Comment on above: left add on hailee rosenthal Start: 07-03-2024 Advance Directive Discussion Advance Directive Discussion [facility] Start: 07-02-2024 Patient discharge [facility] Start: 07-02-2024 Development of care plan [facility] Start: 06-29-2024 [facility] Start: 06-27-2024 [facility] Start: 06-25-2024 Removal of urinary catheter [facility] Start: 06-24-2024 Egd transoral biopsy single/multiple EGD BIOPSY SINGLE/MULTIPLE [facility] Start: 06-24-2024 Patient discharge [facility] Start: 06-20-2024 Speech therapy management [facility] Start: 06-20-2024 Speech therapy assessment [facility] Start: 06-20-2024 Development of care plan [facility] Start: 06-20-2024 Developing a treatment plan [facility] Start: 06-20-2024 [facility] Start: 06-20-2024 [facility] Start: 06-19-2024 Following clinical pathway protocol [facility] Start: 06-19-2024 Admission procedure [facility] Start: 06-19-2024 Introduction of urinary catheter [facility] Start: 06-19-2024 Measuring intake and output [facility] Start: 06-19-2024 Patient referral to dietitian [facility] Start: 06-19-2024 Referral to occupational therapist [facility] Start: 06-19-2024 Referral to service [facility] Start: 06-19-2024 Vital signs measurements [facility] Start: 06-19-2024 End: 06-19-2024 [facility] Start: 06-19-2024 Patient discharge [facility] Start: 06-19-2024 Consultation [facility] Start: 06-19-2024 Introduction of urinary catheter [facility] Start: 06-19-2024 Introduction of urinary catheter [facility] Start: 06-18-2024 Removal of urinary catheter [facility] Start: 06-18-2024 Inhalation therapy procedure [facility] Start: 06-17-2024 End: 06-18-2024 [facility] Start: 06-17-2024 Application of intermittent pneumatic compression device [facility] Start: 06-17-2024 Assessment of risk of venous thromboembolism [facility] Start: 06-17-2024 Incentive spirometry [facility] Start: 06-17-2024 Insertion of catheter into peripheral vein [facility] Start: 06-17-2024 Measuring intake and output [facility] Start: 06-17-2024 Providing care according to standard [facility] Start: 06-17-2024 Provision of activity privileges [facility] Start: 06-17-2024 Referral to occupational therapist [facility] Start: 06-17-2024 Referral to service [facility] Start: 06-17-2024 Following clinical pathway protocol [facility] Start: 06-17-2024 Admission procedure [facility] Start: 06-17-2024 [facility] Start: 06-10-2024 Patient discharge [facility] Start: 03-03-2024 COVID-19 Vaccine ( season) COVID-19 Vaccine ( season) [facility] Start: 03-03-2024 Covid-19 Vaccine ( season) Covid-19 Vaccine ( season) [facility] Start: 03-03-2024 Influenza vaccination Influenza Vaccine (#1) [facility] Start: 02-22-2024 End: 02-22-2024 Patient encounter procedure 02/22/2024 10:45 AM EDT Office Visit [facility] [address] [place] [id number] Radha Calderon MD [address] [facility] [address] [place] [phone] [facility] Start: 12-25-2023 End: 12-25-2023 Patient encounter procedure 12/25/2023 12:10 PM EDT Appointment [facility] [place] [address] [place] [address] Juju Hamm, DO [address] [facility] [address] [place] [phone] [facility] [place] Start: 08-24-2023 End: 08-24-2023 Clinical Support 08/24/2023 1:00 PM EST Clinical Support [facility] [address] [facility] [address] [place] [phone] [facility] Start: 07-20-2023 End: 07-20-2023 Patient encounter procedure 07/20/2023 2:30 PM EST Office Visit [facility] [address] [place] [phone] Tia Anglin MD [facility] [address] [facility] [address] [facility] [address] [place] [address] [facility] Start: 07-03-2023 Advance Directive Discussion Advance Directive Discussion [facility] Start: 06-28-2023 [facility] Start: 06-26-2023 Patient discharge [facility] Start: 06-25-2023 [facility] Start: 06-24-2023 End: 06-24-2023 Administration of blood product [facility] Start: 06-24-2023 Administration of blood product [facility] Start: 06-22-2023 Introduction of urinary catheter [facility] Start: 06-22-2023 [facility] Start: 06-22-2023 Referral to gastroenterology service [facility] Start: 06-22-2023 Application of intermittent pneumatic compression device [facility] Start: 06-22-2023 Following clinical pathway protocol [facility] Start: 06-21-2023 Consultation [facility] Start: 06-21-2023 Inhalation therapy procedure [facility] Start: 06-21-2023 Documentation procedure [facility] Start: 06-21-2023 Assessment of risk of venous thromboembolism [facility] Start: 06-21-2023 Insertion of catheter into peripheral vein [facility] Start: 06-21-2023 Measuring intake and output [facility] Start: 06-21-2023 Providing care according to standard [facility] Start: 06-21-2023 Provision of activity privileges [facility] Start: 06-21-2023 Referral to occupational therapist [facility] Start: 06-21-2023 Referral to service [facility] Start: 06-21-2023 [facility] Start: 06-21-2023 End: 06-21-2023 Administration of blood product [facility] Start: 06-21-2023 End: 06-21-2023 Admission procedure [facility] Start: 06-19-2023 End: 06-19-2024 CBC panel - Blood by Automated count CBC Lab Routine Ischemic colitis (CMS/HCC) Expected: 06/19/2023 (Approximate), Expires: 06/19/2024 [facility] Work Phone: Comment on above: Expected: 06/19/2023 (Approximate), Expi res: 06/19/2024 Start: 06-19-2023 End: 06-19-2024 Comprehensive metabolic 2000 panel - Serum or Plasma Comprehensive Metabolic Panel Lab Routine Ischemic colitis (CMS/HCC) Expected: 06/19/2023 (Approximate), Expires: 06/19/2024 [facility] Work Phone: Comment on above: Expected: 06/19/2023 (Approximate), Expi res: 06/19/2024 Start: 06-19-2023 End: 06-19-2024 CTA Abdominal vessels WO and W contrast IV CT angio abdomen w and or wo IV IV contrast Imaging Routine Ischemic colitis (CMS/HCC) Expected: 06/19/2023, Expires: 06/19/2024 [facility] Service Area Work Phone: Comment on above: Expected: 06/19/2023, Expires: Start: 06-19-2023 End: 06-19-2024 Lactate [Moles/volume] in Serum or Plasma Lactate Lab Routine Ischemic colitis (CMS/HCC) Expected: 06/19/2023 (Approximate), Expires: 06/19/2024 [facility] Work Phone: Comment on above: Expected: 06/19/2023 (Approximate), Expi res: 06/19/2024 Start: 03-03-2023 Covid-19 Vaccine () Covid-19 Vaccine () [facility] Start: 03-03-2023 Influenza vaccination INFLUENZA (#1) [facility] Start: 02-14-2023 [facility] Start: 01-27-2023 Patient discharge [facility] Start: 01-26-2023 CBC W Auto Differential panel - Blood [facility] Start: 01-26-2023 Lipid 1996 panel - Serum or Plasma [facility] Start: 01-26-2023 NM Heart Views W stress and W radionuclide IV [facility] Start: 01-26-2023 Nuclear Stress Test - Chemical Nuclear Stress Test - Chemical [facility] Start: 01-26-2023 [facility] Start: 01-25-2023 Assessment of risk of venous thromboembolism [facility] Start: 01-25-2023 Electrocardiographic procedure [facility] Start: 01-25-2023 Inhalation therapy procedure [facility] Start: 01-25-2023 Insertion of catheter into peripheral vein [facility] Start: 01-25-2023 Introduction of urinary catheter [facility] Start: 01-25-2023 Measuring intake and output [facility] Start: 01-25-2023 Oxygen therapy [facility] Start: 01-25-2023 Providing care according to standard [facility] Start: 01-25-2023 Provision of activity privileges [facility] Start: 01-25-2023 Referral to service [facility] Start: 01-25-2023 Tobacco use cessation education [facility] Start: 01-25-2023 End: 01-26-2023 [facility] Start: 01-25-2023 Admission procedure [facility] Start: 12-10-2022 DIABETES SCREEN DIABETES SCREEN [facility] Start: 08-21-2022 COVID-19 VACCINE (5 - Moderna series) COVID-19 VACCINE (5 - Moderna series) [facility] Start: 07-03-2022 ADVANCE DIRECTIVE DISCUSSION ADVANCE DIRECTIVE DISCUSSION [facility] Start: 06-15-2022 COVID-19 Vaccine (4 - Moderna series) COVID-19 Vaccine (4 - Moderna series) [facility] Start: 05-11-2022 Screening for osteoporosis [facility] Start: 03-03-2022 Influenza vaccination [facility] Start: 07-03-2021 ADVANCE DIRECTIVE DISCUSSION ADVANCE DIRECTIVE DISCUSSION [facility] Start: 05-11-2021 Screening for osteoporosis DEXA SCAN DISCUSSION [facility] Start: 03-03-2021 Influenza vaccination INFLUENZA (#1) [facility] Start: 01-25-2021 COVID-19 VACCINE (3 - Booster for Moderna series) COVID-19 VACCINE (3 - Booster for Moderna series) [facility] Start: 10-23-2020 COVID-19 VACCINE (3 - Booster for Moderna series) COVID-19 VACCINE (3 - Booster for Moderna series) [facility] Start: 06-03-2017 Screening for malignant neoplasm of colon COLORECTAL CANCER SCREENING DISCUSSION [facility] Start: 06-27-2016 Hepatitis B vaccination HEP B VACCINE (2 of 3 - 19+ 3-dose series) [facility] Start: 06-27-2016 Hepatitis B Vaccines (2 of 3 - 19+ 3-dose series) Hepatitis B Vaccines (2 of 3 - 19+ 3-dose series) [facility] Start: 06-27-2016 IPV Vaccines (2 of 3 - Adult catch-up series) IPV Vaccines (2 of 3 - Adult catch-up series) [facility] Start: 2015 RSV Vaccine (1 - 1-dose 75+ series) RSV Vaccine (1 - 1-dose 75+ series) [facility] Start: 2000 RSV patients and/or patients aged 60+ years (1 - 1-dose 60+ series) RSV patients and/or patients aged 60+ years (1 - 1-dose 60+ series) [facility] Start: 2000 RSV Vaccine (1 - 1-dose 60+ series) RSV Vaccine (1 - 1-dose 60+ series) [facility] Start: 1990 SHINGRIX VACCINE (1 of 2) SHINGRIX VACCINE (1 of 2) [facility] Start: 1980 Screening for malignant neoplasm of breast MAMMOGRAM SCREENING DISCUSSION [facility] Start: 1961 Screening for malignant neoplasm of cervix CERVICAL CANCER SCREENING DISCUSSION [facility] Start: 1958 Anxiety Screening Anxiety Screening [facility] Start: 1958 Diabetes mellitus screening Diabetes Screening [facility] Start: 1940 Endoscopy of gastrointestinal tract NOS ENDOSCOPY [facility] Start: 1940 Lipid panel Lipid Panel [facility] Start: 1940 Medicare Annual Wellness Visit Medicare Annual Wellness Visit (AWV) [facility] Start: 1940 Screening for osteoporosis Bone Density Scan [facility] Alanine aminotransfe rase [Enzymatic activity/volume] in Serum or Plasma [facility] Albumin [Mass/volume ] in Serum or Plasma [facility] Alkaline phosphatase [Enzymatic activity/volume] in Serum or Plasma [facility] Anion gap measurement [facility] Aspartate aminotrans ferase [Enzymatic activity/volume] in Serum or Plasma [facility] Bacteria identified in Urine by Culture URINE CULTURE Microbiology Routine Urinary frequency Ordered: 06/16/2022 [facility] Work Phone: Comment on above: Ordered: 06/16/2022 Bilirubin, total measurement [facility] BUN/Creatinine ratio [facility] Calcium [Mass/volume ] in Serum or Plasma [facility] Carbon dioxide, tota l [Moles/volume] in Serum or Plasma [facility] CBC W Auto Different ial panel - Blood [facility] Chloride [Moles/volu me] in Serum or Plasma [facility] Cholesterol [Mass/vo lume] in Serum or Plasma [facility] Cholesterol in HDL [ Mass/volume] in Serum or Plasma [facility] Cholesterol in LDL [ Mass/volume] in Serum or Plasma [facility] Creatinine [Moles/vo lume] in Serum or Plasma [facility] End: 02-21-2023 EGD DIAGNOSTIC EGD DIAGNOSTIC Endoscopy Routine Abdominal pain, unspecified abdominal location Change in bowel habits 1 Occurrences starting 02/21/2022 until 02/21/2023 [facility] Work Phone: Comment on above: 1 Occurrences starting 02/21/2022 until 02/21/2023 Glucose [Mass/volume ] in Serum or Plasma [facility] Hematocrit [Volume F raction] of Blood [facility] Hemoglobin [Mass/volume] in Blood [facility] End: 05-13-2023 Hepatobil syst imag inc gb w/pharma intervenj NM HEPATOBILIARY W EF AND/OR RX Radiology Routine RUQ abdominal pain 1 Occurrences starting 04/13/2022 until 05/13/2023 [facility] Work Phone: Comment on above: 1 Occurrences starting 04/13/2022 until 05/13/2023 Leukocytes [#/volume] in Blood [facility] Mean corpuscular hem oglobin concentration determination [facility] Mean corpuscular hem oglobin determination [facility] Measurement of renal function [facility] Neutrophil count [facility] Neutrophil percent d ifferential count [facility] Patient Education [facility] Work Phone: Patient referral [facility] Work Phone: Platelets [#/volume] in Blood [facility] POCT URINE DIPSTICK NON-AUTOMATE D POCT URINE DIPSTICK NON-AUTOMATED Point of Care Testing Routine Recurrent UTI OAB (overactive bladder) Ordered: 06/03/2024 [facility] Comment on above: Ordered: 06/03/2024 Potassium [Moles/vol ume] in Serum or Plasma [facility] Red blood cell count [facility] Red cell distributio n width determination [facility] End: 02-21-2023 Screening colonoscopy COLONOSCOPY SCREENING Endoscopy Routine Abdominal pain, unspecified abdominal location Change in bowel habits 1 Occurrences starting 02/21/2022 until 02/21/2023 [facility] Work Phone: Comment on above: 1 Occurrences starting 02/21/2022 until 02/21/2023 Sodium [Moles/volume ] in Serum or Plasma [facility] Surgical pathology study [facility] Service Area Work Phone: Comment on above: Release Upon Ordering for 1 Occurrences starting 12/25/2023 Total protein measurement [facility] Triglycerides measurement [facility] UA DIP, URINE (POC) UA DIP, URIN E (POC) Lab Routine Urinary frequency Ordered: 06/16/2022 [facility] Work Phone: Comment on above: Ordered: 06/16/2022 Urea nitrogen [Mass/ volume] in Serum or Plasma [facility] End: 08-04-2025 US Lower extremity - left US KNEE/DISTAL THIGH LEFT Radiology BYRON Status post revision of total replacement of left knee 1 Occurrences starting 07/05/2024 until 08/04/2025 [facility] Comment on above: 1 Occurrences starting 07/05/2024 until 08/04/2025 VLDL cholesterol measurement [facility] End: 12-10-2022 XR HIP BILATERAL 5V PEL/AP/LAT EACH HIP XR HIP BILATERAL 5V PEL/AP/LAT EACH HIP Radiology Routine Pain 1 Occurrences starting 11/10/2021 until 12/10/2022 [facility] Work Phone: Comment on above: 1 Occurrences starting 11/10/2021 until 12/10/2022 End: 07-31-2025 XR Knee AP and Lateral and Merchants XR KNEE POST OP 3V AP/LAT/MERCHANT LEFT Radiology Routine 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 1 Occurrences starting 07/01/2024 until 07/31/2025 [facility] Work Phone: Comment on above: 1 Occurrences starting 07/01/2024 until 07/31/2025 End: 08-01-2025 XR Knee AP and Lateral and Merchants XR KNEE POST OP 3V AP/LAT/MERCHANT LEFT Radiology Routine Status post revision of total replacement of left knee 1 Occurrences starting 07/02/2024 until 08/01/2025 [facility] Work Phone: Comment on above: 1 Occurrences starting 07/02/2024 until 08/01/2025 End: 07-31-2025 XR Pelvis and Hip - left AP and Lateral frog XR HIP GENERAL 3V PELV/AP/LAT LEFT Radiology Routine 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 1 Occurrences starting 07/01/2024 until 07/31/2025 [facility] Comment on above: 1 Occurrences starting 07/01/2024 until 07/31/2025 End: 08-01-2025 XR Pelvis AP XR PELVIS 1V AP Radiology Routine Status post revision of total replacement of left knee 1 Occurrences starting 07/02/2024 until 08/01/2025 [facility] Comment on above: 1 Occurrences starting 07/02/2024 until 08/01/2025 [facility] Immunizations Immunization Date Immunization Notes Care Provider [facility] 04-12-2024 influenza, high dose seasonal, preservative-free Immunization Ortega Work Phone: [facility] 03-18-2023 influenza, high dose seasonal, preservative-free Sangeeta Sim MD Work Phone: [facility] 03-18-2023 influenza virus vaccine, unspecified formulation Radha Calderon MD Work Phone: [facility] Work Phone: 04-20-2022 COVID-19 booster vaccine, age 12+ yr, bivalent (Audinate) Ian Holley PA-C Work Phone: [facility] 04-13-2022 influenza, high dose seasonal, preservative-free Sangeeta Sim MD Work Phone: [facility] 05-07-2021 zoster vaccine recombinant Sangeeta Sim MD Work Phone: [facility] 01-20-2021 zoster vaccine recombinant Sangeeta Sim MD Work Phone: [facility] 08-28-2020 Covid (Moderna) [facility] 07-31-2020 Covid (Moderna) [facility] 03-27-2020 influenza, high dose seasonal, preservative-free Bridger Spencer PT Work Phone: [facility] 04-17-2018 influenza, high dose seasonal, preservative-free Bridger Spencer PT Work Phone: [facility] 04-29-2017 influenza, high dose seasonal, preservative-free Bridger Tj PT Work Phone: [facility] 05-30-2016 DTaP-hepatitis B and poliovirus vaccine Sangeeta Sim MD Work Phone: [facility] 05-30-2016 tetanus toxoid, redu ana laura diphtheria toxoid, and acellular pertussis vaccine, adsorbed Bridger Spencer PT Work Phone: [facility] 05-30-2016 poliovirus vaccine, unspecified formulation Juju Hamm DO Work Phone: [facility] Work Phone: 05-03-2016 influenza, high dose seasonal, preservative-free Bridger Spencer PT Work Phone: [facility] Work Phone: 03-16-2015 pneumococcal conjuga te vaccine, 13 valent Bridger Spencer PT Work Phone: [facility] 07-19-2014 tuberculin skin test ; purified protein derivative solution, intradermal Immunization [place] Work Phone: [facility] 03-03-2014 influenza virus vaccine, whole virus Bridger Spencer PT Work Phone: [facility] 04-12-2012 influenza virus vaccine, unspecified formulation Bridger Spencer PT Work Phone: [facility] 06-03-2010 influenza virus vaccine, unspecified formulation Bridger Spencer PT Work Phone: [facility] 08-16-2008 pneumococcal polysaccharide vaccine, 23 valent Bridger Spencer PT Work Phone: [facility] 07-03-2003 pneumococcal polysaccharide vaccine, 23 ary Sim MD Work Phone: [facility] Payers Date Payer Category Payer Self-pay [id number] 2023 Medicare (Managed Care) JOCELYNE OVIEDO [id number] 2019 Unknown ANTHEM BLUE CROS S AND BLUE SHIELD ANTHEM MEDIBLUE ACCESS [id number] 2019-Present [id number] [place] [id number] PPO [id number] [id number] 2019 Unknown ANTHEM BLUE CROS S AND BLUE SHIELD ANTHEM MEDIBLUE ACCESS [id number] 2019-Present [id number] [place] [id number] PPO [id number] [id number] 2018 Medicare [id number]. 1.13.159. [id number] 2015 Medicare [id number] 1959 Medicare [id number] 1940 Unknown [id number] 2.16.840.1.098894.3.579. 2.1245 1940 Unknown [id number] 2.16.840.1.169010.3.579. 2.1245 1940 Unknown [id number] 2.16.840.1.483074.3.579. 2.1245 1940 Unknown [id number] 2.16.840.1.566796.3.579. 2.1244 1940 Unknown [id number] 2.16.840.1.232219.3.579. 2.1244 1940 Unknown [id number] 2.16.840.1.596831.3.579. 2.1244 1940 Unknown [id number] 2.16.840.1.754976.3.579. 2.1243 1940 Unknown [id number] 2.16.840.1.104263.3.579. 2.1243 1940 Unknown [id number] 2.16.840.1.518856.3.579. 2.1243 1940 Unknown [id number] 2.16.840.1.169675.3.579. 2.598 1940 Unknown [id number] 2.16.840.1.756629.3.579. 2.598 1940 Unknown [id number] 2.16.840.1.209225.3.579. 2.598 1940 Unknown [id number] 2.16.840.1.939981.3.579. 2.598 1940 Unknown [id number] 2.16.840.1.028687.3.579. 2.598 1940 Unknown [id number] 2.16.840.1.014254.3.579. 2.598 1940 Unknown [id number] 2.16.840.1.117666.3.579. 2.598 1940 Unknown [id number] 2.16.840.1.079680.3.579. 2.598 1940 Unknown [id number] 2.16.840.1.598870.3.579. 2.594 1940 Unknown [id number] 2.16.840.1.097307.3.579. 2.594 Medicare [id number] Unknown [id number] 2.16.840.1.044673.3.579. 2.462 Unknown [id number] 2.16.840.1.041694.3.579. 2.462 Unknown [id number] 2.16.840.1.190335.3.579. 2.462 Unknown [id number] 2.16.840.1.602868.3.579. 2.462 Unknown [id number] 2.16.840.1.162527.3.579. 2.462 Unknown [id number] 2.16.840.1.900263.3.579. 2.462 Unknown [id number] 2.16.840.1.236893.3.579. 2.462 Unknown [id number] 2.16.840.1.875772.3.579. 2.462 Unknown [id number] 2.16.840.1.336823.3.579. 2.462 Unknown [id number] 2.16.840.1.836905.3.579. 2.462 Unknown [id number] 2.16.840.1.617334.3.579. 2.462 Unknown [id number] 2.16.840.1.607840.3.579. 2.462 Unknown [id number] 2.16.840.1.519024.3.579. 2.462 Unknown [id number] 2.16.840.1.325208.3.579. 2.462 Unknown [id number] 2.16840.1.787074.3.579. 2.462 Unknown [id number] 2.16840.1.686741.3.579. 2.462 Unknown [id number] 2.16.840.1.055935.3.579. 2.462 Unknown [id number] 2.16840.1.621280.3.579. 2.462 Unknown [id number] 2.16840.1.777757.3.579. 2.462 Unknown [id number] 2.840.1.476634.3.579. 2.462 Unknown [id number] 2.840.1.802292.3.579. 2.462 Unknown [id number] 2.840.1.402026.3.579. 2.462 Unknown [id number] 2.840.1.165383.3.579. 2.462 Unknown [id number] 2.840.1.738121.3.579. 2.462 Unknown [id number] 2.840.1.704715.3.579. 2.462 Unknown [id number] 2.840.1.191076.3.579. 2.462 Unknown [id number] 2.840.1.517092.3.579. 2.462 Unknown [id number] 2.840.1.076514.3.579. 2.462 Unknown [id number] 2.840.1.101925.3.579. 2.462 Unknown [id number] 2.840.1.917494.3.579. 2.462 Unknown [id number] 2.16840.1.751941.3.579. 2.462 Unknown [id number] 2.16.840.1.035697.3.579. 2.462 Unknown [id number] 2.840.1.369971.3.579. 2.462 Unknown [id number] 2.16.840.1.646425.3.579. 2.462 Unknown [id number] 2.16.840.1.336550.3.579. 2.462 Unknown [id number] 2.16.840.1.726169.3.579. 2.462 Unknown [id number] 2.16.840.1.942831.3.579. 2.462 Unknown [id number] 2.16.840.1.577874.3.579. 2.462 Unknown [id number] 2.16840.1.979045.3.579. 2.462 Social History Date Type Detail Facility Start: 11-29-2019 End: 10-14-2024 Tobacco smoking status NHIS Ex-smoker [facility] Work Phone: Start: 06-29-2004 End: 06-29-2005 History of tobacco use Current smoker [facility] Start: 06-29-2004 End: 06-29-2005 History of tobacco use Cigarette Smoker [facility] Start: 12-14-2020 End: 08-28-2024 Alcohol intake Current drinker of alcohol (finding) [facility] Start: 11-29-2019 End: 12-11-2019 History SDOH Alcohol Frequency 5 [facility] Start: 11-29-2019 End: 12-11-2019 History SDOH Alcohol Std Drinks 1 [facility] Start: 12-11-2019 History SDOH Transpo rt Med 2 [facility] Start: 12-11-2019 Education 12 [facility] Start: 1940 Sex Assigned At Not on file [facility] Start: 09-10-2021 End: 03-28-2024 Exposure to SARS-CoV-2 (event) Not sure [facility] Start: 05-01-2021 End: 06-28-2023 Tobacco smoking status MSIS Unknown if ever smoked [facility] Start: 1940 Sex Assigned At Female [facility] Start: 11-29-2019 End: 04-21-2023 Cigarettes smoked current (pack per day) - Reported 0.2 [facility] Work Phone: Start: 11-29-2019 End: 07-05-2024 Tobacco use and exposure Smokeless tobacco non-user [facility] Work Phone: Start: 11-29-2019 End: 04-21-2023 Alcohol Use Disorder Identification Test - Consumption [AUDIT-C] [facility] Work Phone: How often to you hav e a drink containing alcohol? 4 or more times a week [facility] Work Phone: How many standard dr inks containing alcohol do you have on a typical day? 1 or 2 [facility] Work Phone: How often do you hav e 6 or more drinks on 1 occasion? Never [facility] Work Phone: How hard is it for y ou to pay for the very basics like food, housing, medical care, and heating Not hard at all [facility] Work Phone: (I/We) worried az er (my/our) food would run out before (I/we) got money to buy more. Never true [facility] Work Phone: In the past 12 month s, was there a time when you were not able to pay the mortgage or rent on time? No [facility] Work Phone: Start: 02-16-2023 Alcohol Comment [facility] Start: 12-02-2020 End: 01-01-2021 Exposure to SARS-CoV-2 (event) Yes [facility] Start: 06-19-2023 End: 05-24-2024 Tobacco smoking status NHIS Never smoked tobacco [facility] Work Phone: Start: 05-24-2024 Alcoholic beverage intake Ex-drinker (finding) [facility] Start: 09-26-2024 [facility] Highlighted row Not [facility] Medical Equipment Procedure Code Equipment Code Equipment Origin al Text Equipment Identifier Dates Graft Bn Canc 30 ml Allgrft - [id number] Start: 07-09-2014 Graft Bn Canc 30 ml Allgrft - [id number] Start: 07-09-2014 Watson Bn Smpx P Radpq Fd Strl - [id number] Start: 05-16-2011 Watson Bn Smpx P Radpq Fd Strl - [id number] Start: 05-16-2011 Cement Simplex P Bone Radiopaque Full Dose Sterile - [id number] Start: 12-10-2019 Cement Simplex P Bone Radiopaque Full Dose Sterile - [id number] Start: 12-10-2019 Rdw-Ji-V-Kind Implant - [id number] Start: 05-16-2011 Comment on above: Description: Articul ar [id number], ARTICULAR SURFACE Shell Actb 62mm Rev Tritanum G - [id number] Start: 07-09-2014 Bear 48mm Mbl Md lr 2 Tib G - [id number] Start: 07-09-2014 Ins Actb 54mm 28 mm Cup Edie 2 - [id number] Start: 07-09-2014 Head Fem +12mm 12/14 28mm Hip - [id number] Start: 07-09-2014 Liner 36mm 0d E X3 5.9mm Acetabular Hip - [id number] Start: 12-10-2019 Stem [place] V40 4 44mm Offset Femoral Cemented Hip - [id number] Start: 12-10-2019 Restrictor Mediu m [place] Cement [employer] Insurance Manager Distal - [id number] Start: 12-10-2019 Shell Trident Ii 52mm E Tritanium Acetabular 5 Screw Hole Cluster Sterile - [id number] Start: 12-10-2019 Head V40 36mm 0m m Offset Taper Biolox Delta Femoral Hip - [id number] Start: 12-10-2019 Screw Bn 6.5mm 50mm Osteolk Ti - [id number] Start: 07-09-2014 Screw Bn 6.5mm 35mm Osteolk Ti - [id number] Start: 07-09-2014 Screw Bn 6.5mm 24mm Osteolk Ti - [id number] Start: 07-09-2014 Screw Bn 6.5mm 20mm Osteolk Ti - [id number] Start: 07-09-2014 Screw Bn 6.5mm 24mm Osteolk Ti - [id number] Start: 07-09-2014 Screw Bn 6.5mm 14mm Osteolk Ti - [id number] Start: 07-09-2014 Screw Trident Ii 6.5mm 30mm Bone Low Profile Hexagonal Sterile - [id number] Start: 12-10-2019 Screw Trident Ii 6.5mm 25mm Bone Low Profile Hexagonal Sterile - [id number] Start: 12-10-2019 Screw Trident Ii 6.5mm 20mm Bone Low Profile Hexagonal Sterile - [id number] Start: 12-10-2019 Goals Date Patient Goal Desired Activity /State Functional Status Date Assessment Result Facility 07-02-2024 Functional status Bedrest [facility] Work Phone: 06-19-2024 Functional status Bathroom Privilege [facility] Work Phone: 06-26-2023 Functional status Ambulates [facility] Work Phone: 02-17-2023 Are you deaf, or do you have serious difficulty hearing No 02/17/2023 5:33 PM Vandana Bazzi, MARIELOS [facility] 02-17-2023 Are you blind, or do you have serious difficulty seeing, even when wearing glasses No 02/17/2023 5:33 PM Vandana Bazzi, MARIELOS No [facility] 02-17-2023 Do you have serious difficulty walking or climbing stairs No 02/17/2023 5:33 PM Vandana Bazzi, MARIELOS No [facility] 02-17-2023 Do you have difficul ty dressing or bathing No 02/17/2023 5:33 PM Vandana Bazzi, MARIELOS No [facility] 02-17-2023 Because of a physica l, mental, or emotional condition, do you have difficulty doing errands alone such as visiting a physician's office or shopping No 02/17/2023 5:33 PM EDVandana Echeverria RN No [facility] 01-27-2023 Functional status [facility] Work Phone: Mental Status Date Assessment Result Facility 07-02-2024 Cognitive function Voice/Name [facility] Work Phone: 06-29-2024 Cognitive function Appropriate [facility] Work Phone: 06-24-2024 Cognitive function Voice/Name [facility] Work Phone: 06-19-2024 Cognitive function Voice/Name [facility] Work Phone: 06-26-2023 Cognitive function Voice/Name [facility] Work Phone: 02-17-2023 Because of a physica l, mental, or emotional condition, do you have serious difficulty concentrating, remembering, or making decisions No 02/17/2023 5:33 PM EDVandana Echeverria, MARIELOS No [facility] 01-27-2023 Cognitive function Voice/Name [facility] Work Phone: 01-25-2023 Cognitive function Voice/Name [facility] Work Phone: 03-07-2022 Cognitive function Level Of Cons ciousness Awake;Alert;Appropriate;Fol lows Commands [facility] Work Phone: 03-03-2022 Cognitive function Voice/Name [facility] Work Phone: Clinical Notes 01-21-2021 to 11-10-2024 Note Date & Type Note Facility 11-10-2024 Radiology Diagnostic study note [facility] Imaging Services [address] [place], [place] [address] Chest without Contrast MR#: [id number] Acct: [id number] Name: SANDIE HO Rep #: [id number] : 1940 F 84 From: Massiel Richardson MD PCP: Dr. Franc Quezada MD Status: REG CL I Study:Chest without Contrast Date of Exam: 11/06/24 Exam# [id number] Ordering Dr: Andrew Dover MD PROCEDURE: CHEST WITHOUT CONTRAST 11/06/2024 REASON FOR EXAM: DYSPNEA. TECHNIQUE: Chest CT without contrast. Coronal and Sagittal reconstruction series were provided. One or more dose reduction techniques were used (e.g., Automated exposure control, adjustment of the mA and/or kV according to patient size, use of iterative reconstruction technique RADIATION DOSE SUMMARY: CTDlvol: 6.6 mGy DLP: 246 mGycm COMPARISON: None. FINDINGS: Mild bilateral basilar atelectatic pulmonary changes. Mild bilateral basilar peribronchial interstitial thickening, possibly bronchitis. Moderate osteopenia. Moderate benign chronic osteoporotic compression fracture of T12 vertebral body without retropulsion or secondary canal stenosis. Increased dorsal kyphosis at the level of the thoracolumbar junction. Small sliding hiatal hernia. 6 mm calcified granuloma in the right middle lobe. Normal unenhanced main pulmonary artery and right and left pulmonary arteries. Normal bilateral peripheral pulmonary arteries. Normal thoracic aorta and visualized great vessels. There is no demonstrated aortic aneurysm. Normal heart and pericardium. Normal mediastinum. Normal hilar regions. Normal visualized trachea and bronchi. Normal pleura. Normal visualized upper abdomen. CT/Chest without Contrast IMPRESSION: 1. Coronary artery calcification (CAC) is is present 2. Mild bilateral basilar atelectatic pulmonary changes. 3. Mild bilateral basilar peribronchial interstitial thickening, possibly bronchitis. 4. Moderate osteopenia. 5. Moderate benign chronic osteoporotic compression fracture of T12 vertebral body without retropulsion or secondary canal stenosis. Increased dorsal kyphosis at the level of the thoracolumbar junction. 6. Small sliding hiatal hernia. 7. 6 mm calcified granuloma in the right middle lobe. Reading Location: [facility] CC: Dr. Franc Quezada MD; Dr. Andrew Dover MD ~ [employer] Taper: Signed [facility] 09-20-2024 Evaluation note Diagnosis Onset Date Resolution Essential (primary) hypertension acute September 20, 2024 3:29pm LV dysfunction acute August 3:29pm Stenosis of right subclavian artery acute September 20 3:29pm Dyspnea chronic September 20 3:29pm [facility] Work Phone: 1(818) 298-186203-21-2025 Evaluation note* Diagnosis Onset Date Resolution Status Admit Date Essential (primary) hypertension acute September 20, 2024 3:29pm LV dysfunction acute August 3:29pm Stenosis of right subclavian artery acute September 20, 2024 3:29pm Dyspnea chronic September 20 3:29pm Anemia acute November 13, 2024 9:42am Gastric ulcer acute November 13, 025 9:42am Duodenal ulcer chronic November 13, 2024 9:42am Esophageal dysmotility chronic 2024 9:42am [facility] Work Phone: 1(778) 638-601502-28-2025 Telephone encounter Note* Telephone Encounter - Karen Villa MA - 08/30/2024 3:08 PM EST Patient called back and I gave her the results as stated below. She verbalized understanding of theresults. [facility]02-28-2025 Telephone encounter Note* Telephone Encounter - Karen Villa MA - 08/30/2024 3:08 PM EST ----- Message from Tyrone Laguna DO sent at 08/30/2024 8:05 AM EST ----- Please notify pt of the urine culture results: Mixed genital yong isolated. These superficial bacteria are not indicative of a urinary tract infection. Pt can conitnue antibiotic if it has helped with symptoms. Please follow up with PC if ongoing issues. Thank you [facility]02-28-2025 Miscellaneous Notes* Telephone Encounter - Karen Villa MA - 08/30/2024 3:08 PM EST Patient called back and I gave her the results as stated below. She verbalized understanding of theresults. * Telephone Encounter - Karen Villa MA - 08/30/2024 3:08 PM EST ----- Message from Tyrone Laguna DO sent at 08/30/2024 8:05 AM EST ----- Please notify pt of the urine culture results: Mixed genital yong isolated. These superficial bacteria are not indicative of a urinary tract infection. Pt can conitnue antibiotic if it has helped with symptoms. Please follow up with PC if ongoing issues. Thank you * Telephone Encounter - Karen Villa MA - 08/30/2024 8:10 AM EST Called patient, no answer, left message for patient to return call back. * Telephone Encounter - Karen Villa MA - 08/30/2024 8:09 AM EST ----- Message from Tyrone Laguna DO sent at 08/30/2024 8:05 AM EST ----- Please notify pt of the urine culture results: Mixed genital yong isolated. These superficial bacteria are not indicative of a urinary tract infection. Pt can conitnue antibiotic if it has helped with symptoms. Please follow up with PC if ongoing issues. Thank you * Result Encounter Note - Tyrone Laguna DO - 08/30/2024 8:05 AM EST Please notify pt of the urine culture results: Mixed genital yong isolated. These superficial bacteria are not indicative of a urinary tract infection. Pt can conitnue antibiotic if it has helped with symptoms. Please follow up with PC if ongoing issues. Thank you documented [facility] Telephone encounter Note * Telephone Encounter - Karen Villa MA - 08/30/2024 8:10 AM EST Called patient, no answer, left message for patient to return call back. [facility] Telephone encounter Note* Telephone Encounter - Karen Villa MA - 08/30/2024 8:09 AM EST ----- Message from Tyrone Laguna DO sent at 08/30/2024 8:05 AM EST ----- Please notify pt of the urine culture results: Mixed genital yong isolated. These superficial bacteria are not indicative of a urinary tract infection. Pt can conitnue antibiotic if it has helped with symptoms. Please follow up with PC if ongoing issues. Thank you [facility]02-28-2025 Progress note* Result Encounter Note - Tyrone Laguna DO - 08/30/2024 8:05 AM EST Please notify pt of the urine culture results: Mixed genital yong isolated. These superficial bacteria are not indicative of a urinary tract infection. Pt can conitnue antibiotic if it has helped with symptoms. Please follow up with PC if ongoing issues. Thank you [facility] Work Phone: [phone] Instructions* Patient Instructions* Emmie Fontanez APRN.CNP - 08/28/2024 1:49 PM EST . Follow-up with [place]rology [place] Antibiotic sent to the pharmacy There is no leukocytes/bacteria in your urine today however I did send an antibiotic to the pharmacy just in case Hydration documented in this encounterGal[facility] History of Present illness Narrative* HuseyinEmmie, MARCELLO.LIME BOILER - 08/28/2024 1:43 PM EST Sandie Jensen [place] [birth year] [id number] REASON FOR VISIT: Patient presents with: UTI: Burning with frequency. Never went away since 07/24/24 HISTORY OF PRESENT ILLNESS: Sandie is a 84 year old female who presents today with UTI complaints. This is her third visit in 1 month for UTI. Her cultures show Enterococcus faecalis. PAST MEDICAL HISTORY: PAST MEDICAL HISTORY Diagnosis Date [...] History of dislocation of hip 07/09/2014 right Incontinence of urine in female Lumbago 07/28/2009 Lumbar spinal stenosis Lumbar spondylosis [...] unspecified 06/24/2013 Vitamin D deficiency PAST SURGICAL HISTORY: PAST SURGICAL HISTORY Procedure Laterality Date 2D ECHO (EXEP) 03/28/2018 EF=55%, mild Hernandez dysf, normal valves. ARTHROSCOPY KNEE DIAGNOSTIC W/WO SYNOVIAL BX SPX 06/2010 Arthroscopy, knee COLONOSCOPY 03/10/2022 COLONOSCOPY FLX DX W/COLLJ SPEC WHEN PFRMD Colonoscopy CYSTOURETHROSCOPY Cystoscopy EGD W/O [facility] SPEC VARICIES INJ 03/10/2022 PAST SURGICAL HISTORY OF R THR x 3 PAST SURGICAL HISTORY OF Bilat TKR PAST SURGICAL HISTORY OF L Hip pinning (later removed) PAST SURGICAL HISTORY OF Heart Cath PAST SURGICAL HISTORY OF Dilation of left ureter PAST SURGICAL HISTORY OF 05/2011 L knee revision PAST SURGICAL HISTORY OF 2014 R THR - [place] PAST SURGICAL HISTORY OF Right 07/2014 total hip replacement SOCIAL HISTORY: Social History Social History Narrative Lives w/ - no pets SOCIAL HISTORY 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 No reported control method. OTHER CONCERNS Service: No Blood Transfusions: Yes (post 1999) Sleep Concern: No Stress Concern: No (high from her pain) Exercise: No (2x/week) Seat Belt: No NARRATIVE Lives w/ - no pets FAMILY HISTORY: FAMILY HISTORY Problem Relation Age of Onset Cancer Father Coronary Artery Disease Father Early 70's CABG x5 Coronary Artery Disease Brother aged 52, [place] Diabetes Brother Type II No Family History Other Colon Cancer/Polyps ALLERGIES: Cymbalta [Duloxetine] CURRENT MEDICATIONS: Current Outpatient Medications on File Prior to Visit Medication Sig tamsulosin (FLOMAX) 0.4 mg TAKE 1 CAPSULE BY MOUTH ONCE DAILY AT 5:30PM. SUMAtriptan (IMITREX) 50 mg tablet TAKE 1 TABLET BY MOUTH TWICE DAILY NEEDED FOR HEADACHE nortriptyline (PAMELOR) 25 mg capsule Take 1 capsule by mouth daily at bedtime. losartan (COZAAR) 50 mg tablet Take 1 tablet by mouth every afternoon. alendronate (FOSAMAX) 70 mg tablet Take 1 tablet by mouth one time a week. atorvastatin (LIPITOR) 20 mg tablet Take 20 mg by mouth once daily. HYDROcodone-acetaminophen (NORCO) 5-325 mg per tablet Take 1 tablet by mouth every 8 hours as needed for pain. budesonide-formoterol (SYMBICORT) 160-4.5 mcg/actuation inhaler Inhale 2 Puffs as instructed two times a day. Shortness of breath acetaminophen (TYLENOL) 500 mg tablet Take 2 tablets by mouth every 8 hours as needed for pain. aspirin 81 mg chewable tablet Take 1 tablet by mouth once daily. venlafaxine ER (EFFEXOR XR) 37.5 mg 24 hr capsule Take 1 capsule by mouth daily at bedtime for 5 days. buprenorphine (BUTRANS) 7.5 mcg/hour transdermal patch Apply 1 Patch as directed every Monday. citalopram hydrobromide (CELEXA) 10 mg tablet Take 20 mg by mouth once daily. metoprolol succinate ER (TOPROL XL) 50 mg 24 hr tablet Take 50 mg by mouth once daily. pantoprazole DR (PROTONIX) 40 mg tablet Take 40 mg by mouth once daily. ramipril (ALTACE) 2.5 mg capsule Take 2.5 mg by mouth once daily. hydrocortisone 2.5 % ointment Apply to affected area on face 2 times daily as needed for 1-2 weeks after PDT oxybutynin ER (DITROPAN XL) 10 mg 24 hr tablet ascorbic acid, vitamin C, (VITAMIN C) 500 mg tablet Take 1 tablet by mouth twice daily with meals. albuterol HFA (PROVENTIL HFA, VENTOLIN HFA) 90 mcg/actuation inhaler ondansetron (ZOFRAN) 4 mg tablet Take 0.5-1 tablets by mouth every 8 hours as needed for Nausea/Vomiting. Cholecalciferol, Vitamin D3, 2,000 unit cap Take 1 capsule by mouth once daily. CALCIUM CITRATE/VITAMIN D3 (CITRACAL + D ORAL) Take by mouth once daily. No current facility-administered medications on file prior to visit. BP 129/67 Pulse 74 Temp 37 C (98.6 F) Resp 18 Ht 165.1 cm (5' 5) Wt 50.8 kg (112 lb) SpO2 97% BMI 18.64 kg/m REVIEW OF SYSTEMS: Review of Systems PHYSICAL EXAM: Physical Exam Vitals and nursing note reviewed. HENT: Head: Normocephalic. Eyes: Pupils: Pupils are equal, round, and reactive to light. Pulmonary: Effort: No respiratory distress. Abdominal: General: Abdomen is flat. Bowel sounds are normal. Palpations: Abdomen is soft. Skin: General: Skin is warm and dry. Neurological: Mental Status: She is alert. Psychiatric: Mood and Affect: Mood normal. STUDIES: Results for orders placed or performed in visit on 08/28/24 UA DIP, URINE (POC) Result Value Ref Range GLUCOSE UA (POCT) Negative Negative mg/dL BILIRUBIN UA (POCT) Negative Negative KETONE UA (POCT) Negative Negative mg/dL SPECIFIC GRAVITY UA (POCT) 1.015 1.005 - 1.030 HEMOGLOBIN/BLOOD UA (POCT) Trace-intact (A) Negative PH UA (POCT) 7.0 4.5 - 8.0 PROTEIN UA (POCT) Trace (A) Negative mg/dL UROBILINOGEN UA (POCT) 0.2 Normal E.U./dL NITRITE UA (POCT) Negative Negative LEUKOCYTES UA (POCT) Negative Negative COLOR UA (POCT) Yellow CLARITY UA (POCT) Slightly Cloudy *Note: Due to a large number of results and/or encounters for the requested time period, some results have not been displayed. A complete set of results can be found in Results Review. ASSESSMENT/PLAN: Diagnoses and all orders for this visit: UTI symptoms - UA DIP, URINE (POC) - BACTERIAL CULTURE, URINE; Future Burning with urination - BACTERIAL CULTURE, URINE; Future Recurrent UTI (urinary tract infection) - BACTERIAL CULTURE, URINE; Future Other orders - amoxicillin-clavulanate potassium (AUGMENTIN) 875-125 mg per tablet; Take 1 tablet by mouth two times a day for 5 days. Presents with UTI complaints again this is the third time in 1 month. However the urine today showsno leukocytes? Reports she never got better from the end of July. Her only complaint is burning with urination. Will send the urine for culture however highly unlikely this is a UTI I did put her back on amoxicillin for 5 days until we have the culture results. [place] to [place] and is going to follow-up with urology. Patient Instructions . Follow-up with urology when you return [place] next week Antibiotic sent to the pharmacy There is no leukocytes/bacteria in your urine today however I did send an antibiotic to the pharmacy just in case Hydration Emmie Fontanez APRN.CNP 08/28/2024 1:43 PM documented in [facility] encounterGal[facility] Telephone encounter Note * Telephone Encounter - Raina Dunbar RN - 08/26/2024 11:05 AM EST Pt called back for her results, said she has another day of antibiotics left but she is feeling better she will continue the antibiotics till they are completed [facility] Miscellaneous Notes* Telephone Encounter - Raina Dunbar RN - 08/26/2024 11:05 AM EST Pt called back for her results, said she has another day of antibiotics left but she is feeling better she will continue the antibiotics till they are completed * Telephone Encounter - Mildred Handy MA - 08/19/2024 7:53 AM EST LVM informing patient to give the office a call back to discuss urine culture results. * Telephone Encounter - Mildred Handy MA - 08/19/2024 7:53 AM EST ----- Message from Travis Madden DO sent at 08/19/2024 7:48 AM EST ----- Uti with enterococcus, continue antibiotic and follow up if not better documented in this encounterGal[facility] Hospital02-[facility]25 Telephone encounter Note * Telephone Encounter - Mildred Handy MA - 08/19/2024 7:53 AM EST LVM informing patient to give the office a call back to discuss urine culture results. [facility] Telephone encounter Note* Telephone Encounter - Mildred Handy MA - 08/19/2024 7:53 AM EST ----- Message from Travis Madden DO sent at 08/19/2024 7:48 AM EST ----- Uti with enterococcus, continue antibiotic and follow up if not better [facility]02-13-2025 Instructions* Patient Instructions* Emmie Fontanez APRN.CNP - 08/15/2024 3:44 PM EST . Placed on the antibiotic twice a day for 10 days [place]-up [place] UTI, Symptoms usually resolve within 2 to 3 days after starting treatment of antibiotics. Women with frequent or intercourse related UTI should into the bladder immediately after intercourse Instructions; Good hygiene Wait for sexual intercourse if your symptoms are present Antibiotic as prescribed Return if your symptoms or not resolved markedly improved after 1 week Taking antibiotics, probiotics are recommended Avoid feminine hygiene sprays and douches Wipe your urethra from front to back Urine sent for culture. We will call when results are available and change the antibiotic if neededbased on the culture sensitivity report at that time. documented in this encounterGalion Hospital02-13-[facility]25 History of Present illness Narrative* Emmie Fontanez APRN.CNP - 08/15/2024 3:36 PM EST Sandie Jensen [place] [birth year] [id number] REASON FOR VISIT: Patient presents with: UTI: Frequency, burning x2 days HISTORY OF PRESENT ILLNESS: Sandie is a 84 year old female who presents today with UTI complaints. She was just seen here on 07/24/2024 urine showed Streptococcus, antibiotic was changed to amoxicillin and patient was called to let her know. 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 No reported control method. OTHER CONCERNS Service: No Blood Transfusions: Yes (post 1999) Sleep Concern: No Stress Concern: No (high from her pain) Exercise: No (2x/week) Seat Belt: No NARRATIVE Lives w/ - no pets FAMILY HISTORY: FAMILY HISTORY Problem Relation Age of Onset Cancer Father Coronary Artery Disease Father Early 70's CABG x5 Coronary Artery Disease Brother aged 52, [place] Diabetes Brother Type II No Family History Other Colon Cancer/Polyps ALLERGIES: Cymbalta [Duloxetine] CURRENT MEDICATIONS: Current Outpatient Medications on File Prior to Visit Medication Sig HYDROcodone-acetaminophen (NORCO) 5-325 mg per tablet Take 1 tablet by mouth every 8 hours as needed for pain. budesonide-formoterol (SYMBICORT) 160-4.5 mcg/actuation inhaler Inhale 2 Puffs as instructed two times a day. Shortness of breath acetaminophen (TYLENOL) 500 mg tablet Take 2 [...] Monday. (Patient not taking: Reported on 04/21/2023) citalopram hydrobromide (CELEXA) 10 mg tablet Take 20 mg by mouth once daily. metoprolol succinate ER (TOPROL XL) 50 mg 24 hr tablet Take 50 mg by mouth once daily. (Patient nottaking: Reported on 04/21/2023) pantoprazole DR (PROTONIX) 40 mg tablet Take 40 mg by mouth once daily. (Patient not taking: Reported on 04/21/2023) ramipril (ALTACE) 2.5 mg capsule Take 2.5 mg by mouth once daily. hydrocortisone 2.5 % [...] inhaler INHALE 1 PUFF BY MOUTH EVERY 4HOURS NEEDED AND 15 MINUTES PRIOR TO ACTIVITY (Patient not taking: Reported on 04/21/2023) ondansetron (ZOFRAN) 4 mg tablet Take 0.5-1 tablets by mouth every 8 hours as needed for Nausea/Vomiting. Cholecalciferol, Vitamin D3, 2,000 unit cap Take 1 capsule by mouth once daily. CALCIUM CITRATE/VITAMIN D3 (CITRACAL + D ORAL) Take by mouth once daily. (Patient not taking: Reported on 04/21/2023) No current facility-administered medications on file prior to visit. BP 129/76 Pulse 70 Temp 36.6 C (97.8 F) Resp 18 Ht 165.1 cm (5' 5) Wt 52.2 kg (115 lb) SpO2 96% BMI 19.14 kg/m REVIEW OF SYSTEMS: Review of Systems PHYSICAL EXAM: Physical Exam Vitals and nursing note reviewed. HENT: Head: Normocephalic. Eyes: Pupils: Pupils are equal, round, and reactive to light. Pulmonary: Effort: No respiratory distress. Abdominal: General: Abdomen is flat. Bowel sounds are normal. Palpations: Abdomen is soft. Skin: General: Skin is warm and dry. Neurological: Mental Status: She is alert. Psychiatric: Mood and Affect: Mood normal. STUDIES: UA dip Results for orders placed or performed in visit on 08/15/24 UA DIP, URINE (POC) Result Value Ref Range GLUCOSE UA (POCT) Negative Negative mg/dL BILIRUBIN UA (POCT) Negative Negative KETONE UA (POCT) Negative Negative mg/dL SPECIFIC GRAVITY UA (POCT) 1.025 1.005 - 1.030 HEMOGLOBIN/BLOOD UA (POCT) Small (A) Negative PH UA (POCT) 6.5 4.5 - 8.0 PROTEIN UA (POCT) 100 (A) Negative mg/dL UROBILINOGEN UA (POCT) 0.2 Normal E.U./dL NITRITE UA (POCT) Negative Negative LEUKOCYTES UA (POCT) Large (A) Negative COLOR UA (POCT) Yellow CLARITY UA (POCT) Cloudy *Note: Due to a large number of results and/or encounters for the requested time period, some results have not been displayed. A complete set of results can be found in Results Review. ASSESSMENT/PLAN: Diagnoses and all orders for this visit: UTI symptoms - UA DIP, URINE (POC) - amoxicillin (AMOXIL) 875 mg tablet; Take 1 tablet by mouth two times a day for 10 days. Recurrent UTI (urinary tract infection) - BACTERIAL CULTURE, URINE; Future - amoxicillin (AMOXIL) 875 mg tablet; Take 1 tablet by mouth two times a day for 10 days. Presents with UTI symptoms. She was recently treated for UTI tells me that symptoms resolved but then recently came back a couple days ago. Will treat her again with amoxicillin, but this time for 10days. She will follow-up with urology when she returns back [place] in 2 weeks. She has had no fever.Reports she has a history of urinary retention. Patient Instructions . Placed on the antibiotic twice a day for 10 days Follow-up with urology when you return [place] UTI, Symptoms usually resolve within 2 to 3 days after starting treatment of antibiotics. Women with frequent or intercourse related UTI should into the bladder immediately after intercourse Instructions; Good hygiene Wait for sexual intercourse if your symptoms are present Antibiotic as prescribed Return if your symptoms or not resolved markedly improved after 1 week Taking antibiotics, probiotics are recommended Avoid feminine hygiene sprays and douches Wipe your urethra from front to back Urine sent for culture. We will call when results are available and change the antibiotic if neededbased on the culture sensitivity report at that time. Emmie Fontanez APRN.CNP 08/15/2024 3:36 PM documented in this encounterGalion Hospital01-22-2025 Instructions* Patient Instructions* Emmie Fontanez APRN.CNP - 07/24/2024 3:02 PM EST . UTI, Symptoms usually resolve within 2 to 3 days after starting treatment of antibiotics. Women with frequent or intercourse related UTI should into the bladder immediately after intercourse Instructions; Good hygiene Wait for sexual intercourse if your symptoms are present Antibiotic as prescribed Return if your symptoms or not resolved markedly improved after 1 week Taking antibiotics, probiotics are recommended Avoid feminine hygiene sprays and douches Wipe your urethra from front to back Urine sent for culture. We will call when results are available and change the antibiotic if neededbased on the culture sensitivity report at that time. documented in this encounterGalion Hospital01-22-[facility]25 History of Present illness Narrative* Emmie Fontanez APRN.SHANDRA - 07/24/2024 2:59 PM EST Sandie [place] [birth year] [id number] REASON FOR VISIT: Patient presents with: UTI: Complains of burning urination and urgency that came on suddenly. Patient states that she has a history UTIs. She was in the hospital last month due to a UTI among other things. Patient took AZO. HISTORY OF PRESENT ILLNESS: Sandie is a 84 year old female who presents today with UTI complaints. Reports she does have a history of UTIs and her last 1 was about a month ago when she was in the hospital. 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 No reported control method. OTHER CONCERNS Service: No Blood Transfusions: Yes (post 1999) Sleep Concern: No Stress Concern: No (high from her pain) Exercise: No (2x/week) Seat Belt: No NARRATIVE Lives w/ - no pets FAMILY HISTORY: FAMILY HISTORY Problem Relation Age of Onset Cancer Father Coronary Artery Disease Father Early 70's CABG x5 Coronary Artery Disease Brother aged 52, [place] Diabetes Brother Type II No Family History Other Colon Cancer/Polyps ALLERGIES: Cymbalta [Duloxetine] CURRENT MEDICATIONS: Current Outpatient Medications on File Prior to Visit Medication Sig HYDROcodone-acetaminophen (NORCO) 5-325 mg per tablet Take 1 tablet by mouth every 8 hours as needed for pain. budesonide-formoterol (SYMBICORT) 160-4.5 mcg/actuation inhaler Inhale 2 Puffs as instructed two times a day. Shortness of breath acetaminophen (TYLENOL) 500 mg tablet Take 2 [...] Monday. (Patient not taking: Reported on 04/21/2023) citalopram hydrobromide (CELEXA) 10 mg tablet Take 20 mg by mouth once daily. metoprolol succinate ER (TOPROL XL) 50 mg 24 hr tablet Take 50 mg by mouth once daily. (Patient nottaking: Reported on 04/21/2023) pantoprazole DR (PROTONIX) 40 mg tablet Take 40 mg by mouth once daily. (Patient not taking: Reported on 04/21/2023) ramipril (ALTACE) 2.5 mg capsule Take 2.5 mg by mouth once daily. hydrocortisone 2.5 % [...] inhaler INHALE 1 PUFF BY MOUTH EVERY 4HOURS NEEDED AND 15 MINUTES PRIOR TO ACTIVITY (Patient not taking: Reported on 04/21/2023) ondansetron (ZOFRAN) 4 mg tablet Take 0.5-1 tablets by mouth every 8 hours as needed for Nausea/Vomiting. Cholecalciferol, Vitamin D3, 2,000 unit cap Take 1 capsule by mouth once daily. CALCIUM CITRATE/VITAMIN D3 (CITRACAL + D ORAL) Take by mouth once daily. (Patient not taking: Reported on 04/21/2023) No current facility-administered medications on file prior to visit. BP 131/64 Pulse 72 Temp 36 C (96.8 F) Resp 18 Ht 167.6 cm (5' 6) Wt 50.8 kg (112 lb) SpO2 96% BMI 18.08 kg/m REVIEW OF SYSTEMS: Review of Systems PHYSICAL EXAM: Physical Exam Vitals and nursing note reviewed. HENT: Head: Normocephalic. Eyes: Pupils: Pupils are equal, round, and reactive to light. Pulmonary: Effort: No respiratory distress. Abdominal: General: Abdomen is flat. Bowel sounds are normal. Palpations: Abdomen is soft. Tenderness: There is no right CVA tenderness or left CVA tenderness. Skin: General: Skin is warm and dry. Neurological: Mental Status: She is alert. Psychiatric: Mood and Affect: Mood normal. STUDIES: UA Dip Results for orders placed or performed in visit on 07/24/24 UA DIP, URINE (POC) Result Value Ref Range GLUCOSE UA (POCT) Negative Negative mg/dL BILIRUBIN UA (POCT) Negative Negative KETONE UA (POCT) Trace Negative mg/dL SPECIFIC GRAVITY UA (POCT) 1.020 1.005 - 1.030 HEMOGLOBIN/BLOOD UA (POCT) Moderate (A) Negative PH UA (POCT) 6.5 4.5 - 8.0 PROTEIN UA (POCT) 100 (A) Negative mg/dL UROBILINOGEN UA (POCT) 0.2 Normal E.U./dL NITRITE UA (POCT) Negative Negative LEUKOCYTES UA (POCT) Small (A) Negative COLOR UA (POCT) Yellow CLARITY UA (POCT) Cloudy *Note: Due to a large number of results and/or encounters for the requested time period, some results have not been displayed. A complete set of results can be found in Results Review. ASSESSMENT/PLAN: Diagnoses and all orders for this visit: UTI symptoms - UA DIP, URINE (POC) - BACTERIAL CULTURE, URINE; Future Acute cystitis with hematuria - BACTERIAL CULTURE, URINE; Future - cephALEXin (KEFLEX) 500 mg capsule; Take 1 capsule by mouth three times a day for 5 days. presents today with UTI complaints. Reports she does have a history of UTIs and her last 1 was about a month ago when she was in the hospital. Urine does appear to have small amount of leukocytes andblood, will place her on antibiotic and wait for urine culture results. Also gave her information to establish with Dr Roy. Patient Instructions . UTI, Symptoms usually resolve within 2 to 3 days after starting treatment of antibiotics. Women with frequent or intercourse related UTI should into the bladder immediately after intercourse Instructions; Good hygiene Wait for sexual intercourse if your symptoms are present Antibiotic as prescribed Return if your symptoms or not resolved markedly improved after 1 week Taking antibiotics, probiotics are recommended Avoid feminine hygiene sprays and douches Wipe your urethra from front to back Urine sent for culture. We will call when results are available and change the antibiotic if neededbased on the culture sensitivity report at that time. Emmie Fontanez APRN.CNP 07/24/2024 2:59 PM documented in this encounterGal[facility]01-[facility]25 Instructions* Patient Instructions* eJevan Funez PA-C - 07/05/2024 12:25 PM EST Will follow up in [place] at a [facility] after the [facility] ultra sound left quadricept ? Partial tear Placed in a IROM BRACE locked out at 0 degrees extension WBAT LLE WITH WALKER OR CANE documented in this encounterGalion Hospital01-03-2025 NoteHNO ID: [id number] Author: JEEVAN FUNEZ PA-C Service: ? Author Type: Physician Technical Solutions Consultant Type: Progress Notes Filed: 07/05/2024 12:51 Note Text: CHIEF COMPLAINT: Sandie Ho is a 84 year old female who presents today for new evaluation of left anterior knee pain. 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 On exam today she can get up sitting position to standing with some subtle discomfortthere is a subtle defect. Medial aspect. Of the quad tendon as it inserts on the patella, x-rays did show that the patella is maintained its position however because of the deficit an BYRON ultrasound was ordered. Patient is going down [facility] in a week or 2 and will get the ultrasound done and then follow-up one of the [facility] in [place]. In the meanwhile she was placed on I ROM brace locked out at 0 degrees extension left knee. Ambulation weightbearing as tolerated with a walker or cane. HISTORY OF PRESENT ILLNESS: She states that this pain has been present for the past 19 days. She notes the pain to be aching and a tightness. Patient complains that the leg wants to give out. . Patient notes swelling in the area around the joint. . She notes aggravating factors of first few steps out of bed in the morning, management or change of inclines, prolonged sitting, prolonged standing, rapid change of direction, and regular daily ambulation. She notes alleviating factors of avoidance of overactivity and rest. She notes hesitency to use the joint and concern to return to normal daily activities. She is currently retired. Treatments so far have included knee immobilizer. REVIEW OF SYMPTOMS: Constitutional: patient denies any recent fever or significant change in weight Gastrointestinal: patient notes history of intolerance to NSAIDs Musculoskeletal: as noted in the HPI Neurologic: as noted in the HPI SOCIAL HISTORY: Tobacco Use: Types: Cigarettes ALLERGIES: ALLERGIES Allergen Reactions Cymbalta [Duloxetin* Other: See Comments Pt reporting she is not allergic, just a negative side effect. 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 Vitals: There were no vitals taken for this visit. Skin: Skin color, texture, turgor normal, no suspicious rashes or lesions noted Psychiatric: mood and affect are appropriate, patient is oriented to time, place and person General Appearance: Well appearing, alert, in no acute distress, well-hydrated, and well nourished Cardiovascular: pedal pulses and radial pulses normal, no signs of upper or lower extremity edema Respiratory: no respiratory distress, no audible wheezing, no labored breathing, symmetric thoracic excursion Neurologic: bilateral deep tendon reflexes are normal and symmetric with no pathologic reflexes, sensation is grossly intact Lymphatic: no lymph node enlargement noted in the examined area Knee Examination Left Knee Skin Positive: swelling. Effusion 2+ effusion Alignment normal Range of motion -10 - 90 degrees Quadriceps examination quad weakness of the left leg with a muscle strength of 2/5 lower which is not comparable to the contralateral side, Patellar examination Decreased patellar mobility Positive patellar grind t (more content not included)...[facility]01-03-2025 History of Present illness Narrative* Jeevan Funez PA-C - 07/05/2024 12:08 PM EST CHIEF COMPLAINT: Sandie Ho is a 84 year old female who presents today for new evaluation of left anterior knee pain. 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 On exam today she can get up sitting position to standing with some subtle discomfort\there is a subtle defect. Medial aspect. Of the quad tendon as it inserts on the patella, x-rays did show that the patella is maintained its position however because of the deficit an BYRON ultrasound was ordered. Patient is going down to [place] in a week or 2 and will get the ultrasound done and then follow-up one of the [facility] in [place]. In the meanwhile she was placed on I ROM brace locked out at 0 degrees extension left knee. Ambulation weightbearing as tolerated with a walker or cane. HISTORY OF PRESENT ILLNESS: She states that this pain has been present for the past 19 days. She notes the pain to be aching and a tightness. Patient complains that the leg wants to give out. . Patient notes swelling in the area around the joint. . She notes aggravating factors of first few steps out of bed in the morning, management or change ofinclines, prolonged sitting, prolonged standing, rapid change of direction, and regular daily ambulation. She notes alleviating factors of avoidance of overactivity and rest. She notes hesitency to use the joint and concern to return to normal daily activities. She is currently retired. Treatments so far have included knee immobilizer. REVIEW OF SYMPTOMS: Constitutional: patient denies any recent fever or significant change in weight Gastrointestinal: patient notes history of intolerance to NSAIDs Musculoskeletal: as noted in the HPI Neurologic: as noted in the HPI SOCIAL HISTORY: Tobacco Use: Types: Cigarettes ALLERGIES: ALLERGIES Allergen Reactions Cymbalta [Duloxetin* Other: See Comments Pt reporting she is not allergic, just a negative side effect. 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 Vitals: There were no vitals taken for this visit. Skin: Skin color, texture, turgor normal, no suspicious rashes or lesions noted Psychiatric: mood and affect are appropriate, patient is oriented to time, place and person General Appearance: Well appearing, alert, in no acute distress, well-hydrated, and well nourished Cardiovascular: pedal pulses and radial pulses normal, no signs of upper or lower extremity edema Respiratory: no respiratory distress, no audible wheezing, no labored breathing, symmetric thoracicexcursion Neurologic: bilateral deep tendon reflexes are normal and symmetric with no pathologic reflexes, sensation is grossly intact Lymphatic: no lymph node enlargement noted in the examined area Knee Examination Left Knee Skin Positive: swelling. Effusion 2+ effusion Alignment normal Range of motion -10 - 90 degrees Quadriceps examination quad weakness of the left leg with a muscle strength of 2/5 lower which is not comparable to the contralateral side, Patellar examination Decreased patellar mobility Positive patellar grind testing Tenderness quadriceps tendon Meniscus Negative medial and lateral Niko's/Thessaly's testing Stability Collateral and cruciate knee ligaments (ACL/PCL/LCL/MCL) are all intact with no significant laxity noted bilaterally Additional Testing no significant restriction in hip range of motion and no contribution to the knee complaints today IMAGING: Final results and radiologist's interpretation, available in the [facility] health record. Images were reviewed with the patient/family members in the office today. My personal interpretation of the performed imaging is left total knee revision and tachypnea placed soft tissue swelling CLINICAL IMPRESSION / ASSESSMENT: (S76.112A) Strain of left quadriceps muscle, initial encounter (primary encounter diagnosis) (Z96.652) Status post revision of total replacement of left knee (T14.8XXA) Tearing of muscle RECOMMENDATION / PLAN: We have ordered and recommend a diagnostic musculoskeletal ultrasound of the left quadriceps to further delineate pathology and to dictate our treatment plan of care. Patient has been instructed to schedule an office appointment after the advanced imaging is completed. At that visit, results of theadvanced imaging will then be discussed with full explanation and treatment options. Primary care ROM brace locked out at 0 left lower extremity. Weightbearing as tolerated related with I ROM brace locked at 0 ambulation with cane or walker. Patient will follow-up in [place] after the ultrasound is done at one of the [facility] facility for further evaluation and care. Follow up: after advanced imaging is complete to discuss results and next step in management Films prior to visit: If this regimen does not provide pain relief, we will investigate further with advanced imaging. Verbal health education was given to patient. Patient verbalizes understanding and agrees with the treatment plan as detailed above. Jeevan Funez PA-C documented in this encounterGalion Hospital01-03-2025 History of Present illness Narrative* Hailey Khan RT(R) - 07/05/2024 10:00 AM EST Radiology Service Progress Note PATIENT NAME: Sandie Ho DATE OF SERVICE: July 05, 2024 TIME: 11:39 AM PATIENT IDENTITY VERIFICATION COMPLETED USING TWO (2) IDENTIFIERS: Name and Date of confirmedby patient verbally. FALL SCREENING: Has the patient had 2 falls in the last year or 1 fall with injury or currently using an Ambulatory Assistive Device (Walker, Cane, Wheelchair, Crutches, etc.)? No PATIENT GENDER DATA: Female. status: : No status: NO. PATIENT RELEVANT IMPLANT DATA REVIEWED: Not Applicable PATIENT PRESENTS WITH AN IMPLANTABLE OR ATTACHED EQUIPMENT INSTALLATION PROFESSIONAL: No RADIOLOGY DEPARTMENT: General X-ray: Exam(s) Completed: Pelvis X-Ray: Pelvis with Hip Left Lower Extremity X-Ray(s): Knee, AP / Lat / Merchant Left PERIPHERAL IV DATA: Not applicable SIGNED BY: LAYLA Egan) July 05, 2024 11:39 AM documented in this encounterGalion Hospital01-03-2025 NoteHNO ID: [id number] Author: HAILEY KHAN RT (R) Service: Radiology Author Type: Take Up Supervisor Type: Progress Notes Filed: 07/05/2024 11:40 Note Text: Radiology Service Progress Note PATIENT NAME: Sandie Ho DATE OF SERVICE: July 05, 2024 TIME: 11:39 AM PATIENT IDENTITY VERIFICATION COMPLETED USING TWO (2) IDENTIFIERS: Name and Date of confirmed by patient verbally. FALL SCREENING: Has the patient had 2 falls in the last year or 1 fall with injury or currently using an Ambulatory Assistive Device (Walker, Cane, Wheelchair, Crutches, etc.)? No PATIENT GENDER DATA: Female. status: : No status: NO. PATIENT RELEVANT IMPLANT DATA REVIEWED: Not Applicable PATIENT PRESENTS WITH AN IMPLANTABLE OR ATTACHED EQUIPMENT INSTALLATION PROFESSIONAL: No RADIOLOGY DEPARTMENT: General X-ray: Exam(s) Completed: Pelvis X-Ray: Pelvis with Hip Left Lower Extremity X-Ray(s): Knee, AP / Lat / Merchant Left PERIPHERAL IV DATA: Not applicable SIGNED BY: RT Jignesh(Chica) July 05, 2024 11:39 [facility]12-30-2024 [facility]12-23-2024 [facility]12-18-2024 Note [facility]12-18-2024 [facility]12-16-2024 Evaluation note* Diagnosis Onset Date Resolution Status Admit Date Left knee pain inactive June 022023 3:20pm Rupture of left quadriceps tendon inactive June 17, 2 024 3:20pm Acute cystitis acute June 022023 8:30pm Debility acute June 19, 2024 8:30pm Effusion, left knee acute Decem anastasiya 2023 8:30pm Gastric ulcer acute June 192023 8:30pm Multiple falls acute June 022023 8:30pm Esophageal dysmotility chronic De cember 2023 8:30pm Urinary retention chronic Decembe r 2023 8:30pm Obstipation resolved June 8:30pm CAD (coronary artery disease) inacti ve June 19, 2024 8:30pm Chronic headache inactive June 19, 2024 8:30pm COPD (chronic obstructive pulmonary disease) inactive June 8:30pm Depression inactive June 19, 2024 8:30pm GERD (gastroesophageal reflu x disease) inactive June 19, 8:30pm History of total left knee replacement inactive June 19 8:30pm Hyperlipidemia inactive June 022023 8:30pm Left knee pain inactive June 022023 8:30pm Neuropathic pain inactive June 19, 2024 8:30pm Gastric ulcer acute June 242023 9:15am Duodenal ulcer chronic June 032023 9:15am Anemia acute June 28, 2024 12:48pm Essential (primary) hypertension acute June 28, 024 12:48pm LV dysfunction acute June 032023 12:48pm Stenosis of right subclavian artery acute June 28, 024 12:48pm Essential (primary) hypertension acute September 20, 2024 3:29pm LV dysfunction acute August 3:29pm Stenosis of right subclavian artery acute September 20, 2024 3:29pm Dyspnea chronic September 20 3:29pm [facility] Work Phone: 1(482) 359-205711-22-2024 History of Present illness Narrative* Jazz Zepeda - 05/24/2024 2:15 PM EST Urine collected for UA. Test completed and results entered. * María Hinojosa - 05/24/2024 2:15 PM EST Post void residual completed today. Result of 157 entered into Urology Flowsheet. * Sara Mclaughlin MD - 05/24/2024 2:15 PM EST New Patient Visit: Urology Female Pelvic Medicine and Reconstructive Surgery Cc: RUTIS Referring Provider: Franc Quezada MD HPI I had the pleasure of seeing 84 y.o. female with in the urology clinic today for refractoryOAB, RUTIS and dysuria/ bladder pain. 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 Nava as above - tried uribelle without relief - discussed botox is also a potential treatment for this and estrogne may help with dysuria as above RTC for botox 100U, next available Today pt reports that not sure if the botox actually helped- her last injection was 3 weeks ago - thinks may be helping Not using topical estrogen or probiotics for RUTIS - used d-mannose in the past Unclear if the pt has dysuria when not infected LOKESH: yes UUI: yes Pads: 2 diapers Urgency: yes Frequency: Q3hrs Nocturia: 1 Straining to void: no Empties to completion: yes Fluids: 30oz Caffeine: 16oz ROS: Hematuria: yes UTIs: yes Kidney stones: no Bowel function: Bowel Movement per Week: >1/day Constipation: yes Diarrhea: no Fecal Incontinence: no Gynecological History: Vaginal deliveries: 3 Menopausal: yes Prior hysterectomy: no History of abnormal PAPs: no Hormone replacement: no Prolapse Symptoms: Bulge/pressure: no Sexual History: Sexually active:no Desires to be sexually active in future: no Dyspareunia: no Past Medical History GERD Colitis Past Surgical History No past surgical history on file. Medications No current outpatient medications on file. No current facility-administered medications for this visit. Allergies Not on File Social History Family History No family history on file. Review of Systems Pertinent positives and negatives are noted in HPI. Physical Exam There were no vitals taken for this visit. There is no height or weight on file to calculate BMI. Constitutional: NAD, WDWN. HEENT: NCAT. Conjunctivae normal. MMM. Cardiovascular: Well perfused. Pulmonary/Chest: Respirations are even and non-labored bilaterally. Abdominal: Soft. No distension, tenderness, masses or guarding. No CVA tenderness. Neurological: AA + O x 3. Cranial Nerves II-XII grossly intact. Extremities: SHARIFA x 4, Warm. No clubbing. No cyanosis. Skin: [place], warm and dry. No rashes noted. Labs UA: pt voided prior to visit Post-Void Residual A post-void residual was measured by ultrasonic bladder scanner. 157 Radiographic Studies 02/22: No convincing blush of contrast to suggest active bleeding. Colitis distal transverse through distal descending colon. Consider infectious, inflammatory, ischemic etiology Indeterminate 1.2 cm left renal lesion. This could be further characterized with MRI Assessment Ms. Ho is a 84 y.o. female with the following diagnosis: RUTIS, OAB Plan 1. We reviewed the following education and treatment for recurrent UTIs: Topical vaginal estrogen to alter vaginal pH and improve vaginal tissue Probiotics (culturelle and align) - to alter bowel yong Good bowel regimen to decrease perineal colonization D-mannose and cranberry supplements - OTC supplements that prevent bacteria from adhering to the bladder lining Antibiotic prophylaxis 2. We reviewed the following treatment options for OAB: Lifestyle modification including decreasing fluid intake to 48oz/day, avoidance of caffeine and bladder irritants and timed voiding Will reassess - just had botox & thinks it may ne helping All questions were answered. Spent over 30 minutes counseling pt & her family on the above Sara Mclaughlin MD documented in this encounterOS[facility] Instructions* Patient Instructions* Sara Mclaughlin MD - 05/24/2024 2:15 PM EST We reviewed the following education and treatment for recurrent UTIs: Topical vaginal estrogen to alter vaginal pH and improve vaginal tissue Probiotics (culturelle and align) - to alter bowel yong Good bowel regimen to decrease perineal colonization D-mannose and cranberry supplements - OTC supplements that prevent bacteria from adhering to the bladder lining Antibiotic prophylaxis We reviewed the following treatment options for OAB: Lifestyle modification including decreasing fluid intake to 48oz/day, avoidance of caffeine and bladder irritants and timed voiding documented in this encounterOhio[facility] History of Present illness Narrative* Radha Calderon MD - 03/28/2024 1:00 PM EDT CYSTOSCOPY WITH BOTULINUM TOXIN INJECTION This is 83 y.o. year old who presents for cystoscopy with botulinum toxin injection. 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 The patient expressed understanding and agrees with the plan. Radha Calderon MD Today she reports Ready for botox. Consent: The alternatives, risks and benefits of the procedure were explained to the patient. Risks including, but not limited to discomfort, pain, bleeding, infection, injury to nearby structures, inability to perform the procedure, failure of the procedure, difficulty voiding potentially requiring catheter ization and/or urinary tract infection were discussed. All questions were answered and the patient wished to proceed. The patient signed the Informed Consent Form which was made part of her permanentmedical record and a time out was performed. Procedure: LMP (LMP Unknown) Premix Operator Concentrate for procedure: Katherine Negron After confirming she did not have symptoms of a urinary tract infection, the patient was positionedin lithotomy. The urethral meatus was prepped. The bladder was drained and the urine dipped to confirm no evidence of infection. 2% lidocaine jelly was inserted into the urethra. Ten minutes was allowed for local anesthetic to take effect. Botulinum Toxin Type A: 100 units of Botulinum toxin was mixed with a sodium chloride diluent. The flexible Ambu cystoscope was inserted and visual inspection of the bladder was normal. The baseof the bladder was injected while avoiding the trigone region, using a [place] injection needle at four sites at a depth of 4 mm. A fifth site was injected with 3 ml of a saline flush. The patient was instructed to call if she develops any difficulties voiding or symptoms of a urinary tract infection. The patient has no barriers to learning and was instructed on her treatment plan and follow up. She verbalizes understanding of these instructions. She was given an oral dose of macrobid for antibiotic prophylaxis. RTC for virtual visit in 3 months to assess for symptom improvement and determine interval for nextbotox injection. Radha Calderon MD documented in this encounterUniversity [facility] Work Phone: 1(996) 415-688908-22-2024 History of Present illness Narrative* Radha Calderon MD - 02/22/2024 10:45 AM EDT HISTORY OF PRESENT ILLNESS: Sandie Ho is a 83 y.o. female, who presents in follow up for OAB/UUI During last encounter on 11/29/23, reviewed and agreed to the following: OAB/UUI - improved s/p botox 100U 08/18/23 - discussed difference between her baseline symptoms and Shanna - reviewed would not recommend repeat botox injection today as this can cause retention and worsen Shanna - will need to improve Shanna and reassess overall bladder control prior to scheduling next botox dose Recurrent UTI - reviewed anatomical and physiological risk factors for developing UTI (female anatomy, post-menopausal status) - counseled on definition of UTI per IDSA guidelines: positive culture in setting of typical symptoms - reviewed that goal is prevention, to avoid antibiotics if possible - discussed prevention strategies: vaginal estrogen (counseled that this is the most effective option), - rx for vaginal estrogen, twice weekly per vagina sent to preferred pharmacy and reviewed instructions for insertion (advised against using applicator) - reviewed importance of obtaining culture data with each episode of symptoms: counseled on risk ofbacterial antibiotic resistance, and inappropriate treatment if diagnosis is uncertain Today she reports Has forgotten to use estrogen cream. has had a couple UTIs, PCP has been treating. Has had a couplesince last visit. Has constant leakage, even outside of UTIs. Gets urge, cannot control it. Thinks botox worked for about a month Daughter is here today and shares patient was diagnosed with IC/BPS by Dr. Shanika Nava. Cultures are only positive about half the time when she has dysuria. The following were reviewed to gain additional history: External notes: GI notes re: GERD, Contreras esophagus, EGD was performed 12/25/23 Test results: no urine cultures available for review PHYSICAL EXAMINATION: No LMP recorded (lmp unknown). Patient is postmenopausal. Body mass index is 18.64 kg/m . BP 152/86 Pulse 80 Resp 20 Wt 50.8 kg (112 lb) LMP (LMP Unknown) SpO2 97% BMI 18.64 kg/m General Appearance: well appearing Neuro: Alert and oriented HEENT: mucous membranes moist, neck supple Resp: No respiratory distress, normal work of breathing MSK: normal range of motion, gait appropriate Pelvic: deferred IMPRESSION AND PLAN: Sandie Ho is a 83 y.o. 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 The patient expressed understanding and agrees with the plan. Radha Calderon MD documented in this encounterUniversity [facility] Work Phone: 1(280) 867-715908-22-2024 Instructions* Patient Instructions* Radha Calderon MD - 02/22/2024 10:45 AM EDT Vaginal estrogen is a treatment for genitourinary syndrome of menopause, also known as vaginal atrophy. After menopause, the vaginal lining can thin and become dry or irritated due to a lack of estrogen effect. Vaginal estrogen cream is a way to effectively manage this problem. Instructions for use: Do not use the applicator that comes with your vaginal estrogen cream. Use you finger to insert a pea-sized amount of estrogen cream into the vagina. It does not have to go far into the vagina (aboutan inch or so is plenty). Do this twice weekly at bedtime. Vaginal estrogen is NOT considered hormone therapy. There is very very minimal absorption into the bloodstream from the vagina. The amount that is absorbed is so low that it does not increase risk ofcancer or blood clots. This is a very safe treatment and can have a lot of benefits for you including: decreased frequency of UTIs (bladder infections), decreased pain with intercourse, and decreasedsensation of dryness in the vagina. documented in this encounterUniversity [facility] Work Phone: 1([phone]) 218-279907-19-2024 [facility]06-24-2024 Attending History and physical note* Juju Hamm, - 12/25/2023 12:50 PM EDT H&P reviewed. The patient was examined and there are no changes to the H&P. Source Note - Juju Hamm DO - 12/14/2023 11:45 AM EDT Subjective Patient ID: Sandie Ho is a 83 y.o. female who presents for Follow-up (Visit on 07/11 transitioned from sucralfate to slippery elm bark. Daughter states patient did not take this right and now symptoms of dysphagia and feeling of food getting stuck are back. Pt states she gets choked very easily. ) and Diarrhea (On occasion will have the sudden urge to have BM but will not make it to the bathroom in time, Wears depends for this reason. Patient denies any black stools. ). Diarrhea Associated symptoms include abdominal pain. patient seen today acutely has having dysphagia to solids. Feels food pocket in lower esophagus andfeels up her esophagus she states has been worse over the last 3 months. Denies any melanic stools or gross rectal bleeding that she had back in June when she had her esophageal ulcer. She is currently on PPI therapy is not effective we did try her on Carafate which had no impact. She denies any hematemesis as well. Review of Systems Constitutional: Negative. HENT: Negative. Eyes: Negative. Respiratory: Negative. Cardiovascular: Negative. Gastrointestinal: Positive for abdominal pain, diarrhea and nausea. Endocrine: Negative. Genitourinary: Negative. Neurological: Negative. Hematological: Negative. Objective Physical Exam Vitals and nursing note reviewed. Constitutional: Appearance: Normal appearance. HENT: Head: Normocephalic. Mouth/Throat: Mouth: Mucous membranes are moist. Pharynx: Oropharynx is clear. Eyes: Conjunctiva/sclera: Conjunctivae normal. Pupils: Pupils are equal, round, and reactive to light. Cardiovascular: Rate and Rhythm: Normal rate and regular rhythm. Pulses: Normal pulses. Heart sounds: Normal heart sounds. Pulmonary: Effort: Pulmonary effort is normal. Breath sounds: Normal breath sounds. Abdominal: General: Abdomen is flat. Bowel sounds are normal. Palpations: Abdomen is soft. Musculoskeletal: Cervical back: Normal range of motion and neck supple. Skin: General: Skin is warm and dry. Neurological: General: No focal deficit present. Mental Status: She is alert and oriented to person, place, and time. Psychiatric: Behavior: Behavior normal. Assessment/Plan There are no diagnoses linked to this encounter. 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 Will arrange endoscopy. Given her fragile lung condition we will perform an OR with MAC. Juju Hamm DO 12/14/23 2:22 PM [facility] Work Phone: 1([phone]) 161-407706-24-2024 History and physical note* Juju Hamm DO - 12/25/2023 12:50 PM EDT H&P reviewed. The patient was examined and there are no changes to the H&P. Source Note - Juju Hamm DO - 12/14/2023 11:45 AM EDT Subjective Patient ID: Sandie Ho is a 83 y.o. female who presents for Follow-up (Visit on 07/11 transitioned from sucralfate to slippery elm bark. Daughter states patient did not take this right and now symptoms of dysphagia and feeling of food getting stuck are back. Pt states she gets choked very easily. ) and Diarrhea (On occasion will have the sudden urge to have BM but will not make it to the bathroom in time, Wears depends for this reason. Patient denies any black stools. ). Diarrhea Associated symptoms include abdominal pain. patient seen today acutely has having dysphagia to solids. Feels food pocket in lower esophagus andfeels up her esophagus she states has been worse over the last 3 months. Denies any melanic stools or gross rectal bleeding that she had back in June when she had her esophageal ulcer. She is currently on PPI therapy is not effective we did try her on Carafate which had no impact. She denies any hematemesis as well. Review of Systems Constitutional: Negative. HENT: Negative. Eyes: Negative. Respiratory: Negative. Cardiovascular: Negative. Gastrointestinal: Positive for abdominal pain, diarrhea and nausea. Endocrine: Negative. Genitourinary: Negative. Neurological: Negative. Hematological: Negative. Objective Physical Exam Vitals and nursing note reviewed. Constitutional: Appearance: Normal appearance. HENT: Head: Normocephalic. Mouth/Throat: Mouth: Mucous membranes are moist. Pharynx: Oropharynx is clear. Eyes: Conjunctiva/sclera: Conjunctivae normal. Pupils: Pupils are equal, round, and reactive to light. Cardiovascular: Rate and Rhythm: Normal rate and regular rhythm. Pulses: Normal pulses. Heart sounds: Normal heart sounds. Pulmonary: Effort: Pulmonary effort is normal. Breath sounds: Normal breath sounds. Abdominal: General: Abdomen is flat. Bowel sounds are normal. Palpations: Abdomen is soft. Musculoskeletal: Cervical back: Normal range of motion and neck supple. Skin: General: Skin is warm and dry. Neurological: General: No focal deficit present. Mental Status: She is alert and oriented to person, place, and time. Psychiatric: Behavior: Behavior normal. Assessment/Plan There are no diagnoses linked to this encounter. 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 Will arrange endoscopy. Given her fragile lung condition we will perform an OR with MAC. Juju Hamm DO 12/14/23 2:22 PM documented in this encounterUnC[facility] Work Phone: [phone] Nurse Note* Shashi Hernandez RN - 12/25/2023 12:02 PM EDT It was a pleasure taking care of you today! -Ever S [facility]06-24-2024 Nurse Note* Shashi Hernandez RN - 12/25/2023 12:02 PM EDT It was a pleasure taking care of you today! -Ever S documented in this [facility] Work Phone: [phone]) [phone] History of Present illness Narrative* Juju Hamm, DO - 12/14/2023 11:45 AM EDT Subjective Patient ID: Sandie Ho is a 83 y.o. female who presents for Follow-up (Visit on 07/11 transitioned from sucralfate to slippery elm bark. Daughter states patient did not take this right and now symptoms of dysphagia and feeling of food getting stuck are back. Pt states she gets choked very easily. ) and Diarrhea (On occasion will have the sudden urge to have BM but will not make it to the bathroom in time, Wears depends for this reason. Patient denies any black stools. ). Diarrhea Associated symptoms include abdominal pain. patient seen today acutely has having dysphagia to solids. Feels food pocket in lower esophagus andfeels up her esophagus she states has been worse over the last 3 months. Denies any melanic stools or gross rectal bleeding that she had back in June when she had her esophageal ulcer. She is currently on PPI therapy is not effective we did try her on Carafate which had no impact. She denies any hematemesis as well. Review of Systems Constitutional: Negative. HENT: Negative. Eyes: Negative. Respiratory: Negative. Cardiovascular: Negative. Gastrointestinal: Positive for abdominal pain, diarrhea and nausea. Endocrine: Negative. Genitourinary: Negative. Neurological: Negative. Hematological: Negative. Objective Physical Exam Vitals and nursing note reviewed. Constitutional: Appearance: Normal appearance. HENT: Head: Normocephalic. Mouth/Throat: Mouth: Mucous membranes are moist. Pharynx: Oropharynx is clear. Eyes: Conjunctiva/sclera: Conjunctivae normal. Pupils: Pupils are equal, round, and reactive to light. Cardiovascular: Rate and Rhythm: Normal rate and regular rhythm. Pulses: Normal pulses. Heart sounds: Normal heart sounds. Pulmonary: Effort: Pulmonary effort is normal. Breath sounds: Normal breath sounds. Abdominal: General: Abdomen is flat. Bowel sounds are normal. Palpations: Abdomen is soft. Musculoskeletal: Cervical back: Normal range of motion and neck supple. Skin: General: Skin is warm and dry. Neurological: General: No focal deficit present. Mental Status: She is alert and oriented to person, place, and time. Psychiatric: Behavior: Behavior normal. Assessment/Plan There are no diagnoses linked to this encounter. 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 Will arrange endoscopy. Given her fragile lung condition we will perform an OR with MAC. Juju Hamm DO 12/14/23 2:22 PM documented in this encounterUniversity [facility] Work Phone: [phone]) 830-764702-22-2024 History of Present illness Narrative* Carolyne Vivar RN - 08/24/2023 1:00 PM EST Pt reports wonderful results with botox documented in this encounterUniversity [facility]als [facility] Work Phone: [phone] History of Present illness Narrative* Tia Anglin MD MPH - 08/18/2023 9:30 AM ESTAssociated Order(s): Cystoscopy with Biospy Injection Post-Procedure Diagnose(s): OAB (overactive bladder) [facility] Department of Urogynecology Tia Anglin MD, MPH [phone] ASSESSMENT AND PLAN: 83 y.o. 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 Comorbidities include: GERD, IBS-c, and hx of ischemic colitis. Diagnoses: #1 Urge incontinence Plan: 1. UUI, OAB - botox 100 units given today. - We discussed risks of intradetrusor Botox and the cystoscopy including hematuria, retention, and UTI. She was given a one-time dose of Macrobid for UTI ppx. There is a 5% risk of urinary retention,however we will have her RTC in one week for a nurse visit to check her PVR. We discussed symptoms of urinary retention after Botox. If she experiences urinary retention, we discussed that she can either begin taking po Flomax to help relax the urethra to allow urine to pass through vs. learn how to ISC to ensure she is emptying her bladder until the effects of Botox begin to wear off with time. Botox typically provides patients with an average of 6 months of OAB symptom improvement and patients typically have intradetrusor Botox injections 1-2x per year to manage their OAB. It takes about 7 days to reach full effect. Other risks include possible allergic reaction and a theoretical low riskof Botulism in which symptoms would include weakness in the muscles of the arms, legs, or trouble breathing. If she were to experience Botulism side effects, she should go to the emergency room. - Cystoscopy + intradetrusor Botox injection of 100 U completed today without complication. Follow-up in [address] Anglin. Scribe Attestation: IEstrella, adrián scribing for virtually, and in the presence of Tia Anglin MD MPH on 08/18/23 at 12:01 PM. Problem List Items Addressed This Visit None Visit Diagnoses OAB (overactive bladder) - Primary Relevant Medications lidocaine (Uro-Jet) 2 % jelly 1 Application (Completed) lidocaine (Xylocaine) 10 mg/mL (1 %) injection 50 mg (Completed) nitrofurantoin (macrocrystal-monohydrate) (Macrobid) capsule 100 mg (Completed) phenazopyridine (Pyridium) tablet 200 mg (Completed) sodium chloride (PF) 0.9% solution 10 mL (Completed) Other Relevant Orders POCT UA Automated manually resulted (Completed) I Dr. Anglin, personally performed the services described in the documentation as scribed in my presence and confirm it is both complete and accurate. Tia Anglin MD, MPH, FACOG Established HISTORY OF PRESENT ILLNESS: Sandie Ho is a 83 y.o. female who presents for cysto/botox for UUI. Record Review: - 07/20/23 Dr. Tia Anglin note reviewed: OAB - Failed Oxybutynin and Gemtesa. Discussed 3rd line tx, she was interested in Botox. BPS, IC - She has pain with a full bladder, reviewed 1st line tx options, takes Azo as this has been managing pain. - Fernandez was recently hospitalized for bleeding that was found to be due to a gastric ulcer. This has since resolved. - 02/15/2023 Dr. Kaylee Coker @ [facility] note reviewed: Concern for hematuria. It sounds like the hematuria is more likely from GI source. Follow up with Dr. Nava for outpatient hematuria work up. - Hx of IBS-c on Amitiza, ischemic colitis, and peptic ulcer. Bladder Symptoms: - Denies having bladder pain. - She is inhibited from doing things she wants to do because of her urinary leakage. - Interested in doing Botox injections today. Past Medical History: - not on blood thinners No past medical history on file. Past Surgical History: Past Surgical History: Procedure Laterality Date TOTAL HIP ARTHROPLASTY Bilateral TOTAL KNEE ARTHROPLASTY Bilateral Medications: Prior to Admission medications Medication Sig Start Date End Date Taking? Authorizing Provider acetaminophen (Tylenol) 500 mg tablet Take by mouth every 6 hours if needed for mild pain (1 - 3). Historical Provider, ascorbic acid (Vitamin C) 500 mg tablet Take 1 tablet (500 mg) by mouth once daily. Historical Provider, aspirin 81 mg capsule Take by mouth. Historical Provider, umwdpfc-oqozormbkztrj-achzjwvb (Excedrin Migraine) 250-250-65 mg tablet Take 1 tablet by mouth every 6 hours if needed for headaches. Historical Provider, budesonide-formoteroL (Symbicort) 160-4.5 mcg/actuation inhaler Inhale 2 puffs 2 times a day. [place] with water after use to reduce aftertaste and incidence of candidiasis. Do not swallow. Historical Provider, calcium carbonate (Tums) 200 mg calcium chewable tablet Chew 1 tablet (500 mg) once daily. Historical Provider, cholecalciferol (Vitamin D3) 25 MCG (1000 UT) capsule Take 1 capsule (25 mcg) by mouth once daily. Historical Provider, citalopram (CeleXA) 20 mg tablet Take 1 tablet (20 mg) by mouth once daily. Historical Provider, dicyclomine (Bentyl) 20 mg tablet Take 1 tablet (20 mg) by mouth 3 times a day as needed (Abdominalspasms, cramping). 06/19/23 06/18/24 Juju Hamm, diphenhydrAMINE (Sominex) 25 mg tablet Take 1 tablet (25 mg) by mouth as needed at bedtime for sleep. Historical Provider, HYDROcodone-acetaminophen ([place]) 5-325 mg tablet Take 1 tablet by mouth every 8 hours if needed for severe pain (7 - 10). Historical Provider, ibuprofen 200 mg tablet Take by mouth every 6 hours if needed for mild pain (1 - 3). Historical Provider, lubiprostone (Amitiza) 8 mcg capsule Take 1 capsule (8 mcg) by mouth 2 times a day with meals. Takewith meals 07/11/23 07/10/24 Juju Hamm DO mv-mn/folic acid/vit [id number] (ALIVE ONCE DAILY WOMEN 50 PLUS ORAL) Take by mouth. Historical Provider, naproxen (Naprosyn) 250 mg tablet Take 1 tablet (250 mg) by mouth 2 times a day with meals. Historical Provider, NON FORMULARY 1 each. Cryofreeze CBD roll on Historical ProviderMD ondansetron (Zofran) 8 mg tablet Take 1 tablet (8 mg) by mouth every 8 hours if needed for nausea or vomiting. Historical Provider, ondansetron ODT (Zofran-ODT) 8 mg disintegrating tablet Take 1 tablet (8 mg) by mouth every 8 hoursif needed. 07/17/23 Historical ProviderMD pantoprazole (ProtoNix) 40 mg EC tablet Take 1 tablet (40 mg) by mouth once daily. Do not crush, chew, or split. 06/19/23 06/18/24 Juju Hamm DO ramipril (Altace) 2.5 mg capsule Take 1 capsule (2.5 mg) by mouth once daily. Historical Provider, MD BOWLING Review of Systems PHYSICAL EXAM: BP 158/79 Wt 51.3 kg (113 lb) LMP (LMP Unknown) BMI 18.80 kg/m No LMP recorded (lmp unknown). Patient is postmenopausal. Patient ID: Sandie Ho is a 83 y.o. female. Cystoscopy with Biospy Injection Date/Time: 08/18/2023 11:36 AM Performed by: Tia Anglin MD MPH Authorized by: Tia Anglin MD MPH Premix Operator Concentrate present: yes Anesthesia: local anesthesia Procedure Details Cystoscope type: flexible Cystoscopy route: transurethral Cystoscopy location: kletsel dehe wintun bladder Irrigation used: saline Position: dorsal lithotomy Urethra Urethra: normal Vagina Vagina: normal Bladder Bladder: normal Botox Injection Details Indication: overactive bladder Total number of injections: 5 Total number of units: 100 Post-Procedure Details Catheter placed: no Appearance of urine after procedure: clear Outcome: patient tolerated procedure well with no complications Disposition: discharged home in satisfactory condition Additional Details Lot number [id number], expiration 12-26. Sandie Ho [id number] Preoperative Diagnosis: Urinary Urgency Incontinence, Frequency Postoperative Diagnosis: Same Surgeon: Tia Anglin MD Technical Solutions Consultant:none Estimated Blood Loss: Minimal Complications: None Indications for Procedure: This 83 y.o. female presents with the diagnosis /diagnoses listed above.The procedure was described in detail to the patient. The risks, benefits, and alternatives were thoroughly discussed. The patient wished to proceed with the recommended procedure. Informed consent was obtained and is documented in the chart. Time Out: A time-out was completed verifying correct patient, procedure, site, positioning, and implant(s) and/or special equipment prior to beginning this procedure. Procedure and Findings: After informed consent was obtained, the patient was placed under anesthesia and the patient was placed in the dorsal lithotomy position and was prepped and draped in a sterile fashion. A flexible scope was inserted and the entire urethra and bladder were examined. A complete cystoscopy was performed. There were no mucosal lesions noted. Normal bladder epithelium. No stones, lesions, or tumors. Orthotopic ureters. 100 units of Botox were injected into the bladder muscle in 5 sites diluted in 10ml of normal saline . The patient tolerated the procedure well. There were no complications. Routine post-cystoscopy instructions were given. Well developed, well nourished, in no apparent distress. Neurologic/Psychiatric: Awake, Alert and Oriented times 3. Affect normal. documented in this [facility] Work Phone: 1(137) 735-114301-18-2024 History of Present illness Narrative* Tia Anglin MD MPH - 07/20/2023 2:30 PM EST [facility] Department of Urogynecology Tia Anglin MD, MPH [phone] ASSESSMENT AND PLAN: 83 year old female with UUI/OAB and BPS/IC. Comorbidities include: GERD, IBS-c, and hx of ischemic colitis. Diagnoses: #1 Urge incontinence #2 Bladder pain syndrome, interstitial cystitis Plan: 1. UUI, OAB, nocturia - PVR was minimal (<10mL) by straight catheterization today. - She has previously failed Oxybutynin and Gemtesa as this did not improve her OAB symptoms in the past. - We discussed OAB lifestyle changes (i.e., trying to limit fluids to 60oz in total per day, timed voiding every 2-3 hours, stop drinking fluids 3 hours prior to bedtime, and avoiding/limiting bladder irritants such as caffeine, nicotine, artificial sweeteners, acidic/spicy foods, and alcohol). - Discussed OAB treatment options such as lifestyle changes, PFPT, medications, PTNS, intradetrusorBotox injections, or SNM. - We discussed that PFPT may help with bladder/pelvic floor restrengthening exercises with an overall goal to better control the bladder and improve urinary symptoms. PFPT includes attending sessionswith a female licensed and specialized pelvic floor physical therapist who does external and internal vaginal work to ensure she is doing the correct exercises to obtain the most benefit of physical therapy. We reviewed the importance of continuing these home exercises to receive maximum benefit from PFPT. They also teach mind over bladder strategies/urge suppression techniques to reduce the intensity of the urge to void. - We discussed that with starting an OAB medication the goal would be to allow the detrusor muscle around the bladder to relax and prevent the muscles from spasm/squeezing too frequently to allow thebladder to store more urine which reduces the urge, frequency, and incontinent episodes. - We discussed the risks of intradetrusor Botox and cystoscopy including the scope scraping the urethra which might cause burning/irritation, hematuria, and UTI. We will give her a one-time dose of Macrobid for UTI ppx and Pyridium to help prevent irritative symptoms from the cystoscope. This procedure is performed in office where we use cystoscopy to visualize the bladder neck/muscles and injectthe Botox into 4 areas around the bladder to help reduce bladder spasms in hopes of reducing urinary urgency, frequency, nocturia, and incontinent episodes. There is around a 5% risk of urinary retention with symptoms of retention including strangury and urinary frequency with small volume urine voids however we will have her RTC in one week for a nurse visit to check her PVR. If she experiences urinary retention we discussed that she can either begin taking po Flomax to help relax the urethra to allow urine to pass through vs. learn how to ISC to ensure she is emptying her bladder until the e ffects of Botox begin to wear off with time. Botox typically provides patients with an average 6-9 months of OAB symptom improvement and patients typically have intradetrusor Botox injections 1-2x per year to help manage their OAB. - Given that she has failed two medications in the past she is now interested in pursuing intradetrusor Botox injections. - Will see if PA is indicated with her insurance prior to scheduling her for cystoscopy + intradetrusor Botox injection of [address] Tia Anglin in office @ [facility]. . BPS, IC - History: The patient has been experiencing pain with a full bladder that is resolved with urinating and urinary frequency; no hx of Shanna with multiple negative urine cultures and notes that taking OTC Azo improved her bladder spasms/bladder pain. She has previously had cystoscopy to work this up that returned negative. - Discussed the difference between recurrent UTI vs. interstitial cystitis. A true UTI is when the patient is symptomatic (i.e. hematuria, dysuria, urinary frequency/urgency, abdominal pain etc.) andhas a + urine cx. Interstitial cystitis is experiencing UTI sx with burning dysuria, bladder pain, pain relief upon urinating, and urethral pain but having persistently negative urine cultures as thepain is not caused by bacteria unlike a UTI. - Counseled that we do not know all of the underlying etiology of IC but know that there is an inflammatory/neurological/histamine process that occurs in the bladder. - We discussed that IC is a clinical diagnosis of exclusion where we review the patient history, urine culture hx, and symptoms. - Reviewed some treatment and management options of IC such as: > First-line therapies: Identifying or trying to avoid bladder triggers (i.e., dietary changes, alcohol, spicy foods, acidic foods, etc.), aim for better stress management with counseling/yoga/meditation/acupuncture, going to PFPT, and trying OTC medications such Azo or Pyridium to help with bladder pain/spasms, OTC Prelief or 1 tsp/tbsp of baking soda in water to drink daily to help reduce her urine acidity. - Will continue taking Azo as this has been managing her bladder pain well and she noted that her bladder pain is not problematic/bothersome to her. Follow up in 2-[address] Tia Anglin for cystoscopy + intradetrusor Botox injection of 100U @ [facility]. Scribe Attestation By signing my name below, I, Kashif Norton, Kennethibe, attest that this documentation has been preparedunder the direction and in the presence of Tia Anglin MD MPH on 07/20/2023 at 7:31 PM. Problem List Items Addressed This Visit None Visit Diagnoses Pelvic floor dysfunction in female I spent a total of 60 minutes in face to face and non face to face time. Tia Anglin MD, MPH, FACOG New HISTORY OF PRESENT ILLNESS: 83 year old presenting as a new patient referral from Dr. Hamm (GI) for evaluation of urinary incontinence. She presents with her daughter today. Record Review: - Fernandez was recently hospitalized for bleeding that was found to be due to a gastric ulcer. This has since resolved. - 02/15/2023 Dr. Kaylee Coker @ [facility] note reviewed: Concern for hematuria. It sounds like the hematuria is more likely from GI source. Follow up with Dr. Nava for outpatient hematuria work up. - Hx of IBS-c on Amitiza, ischemic colitis, and peptic ulcer. Prolapse Symptoms: - Denies feeling a vaginal bulge or any other sxs of POP. Urinary Symptoms: - Endorses mixed urinary incontinence with urge > stress. - She has to change her underwear 5-6x per day due to UUI leakage and this is negatively impacting her daily activities/quality of life. UUI has been present for the past 2 years with recent worsening over the last 6 months. - Reports burning near the urethra/vagina - previously evaluated by urologist Dr. Shanika Nava 1 year ago. They worked up UTI, bladder cancer, and ruled these things out. - No hx of pyelonephritis or kidney stones. - She reports experiencing pain with a full bladder that is resolved with urinating and urinary frequency; no hx of Shanna with multiple negative urine cultures and notes that taking OTC Azo improved her bladder spasms/bladder pain. - Denies feeling of incomplete bladder emptying. - Voids 5-6x per day. - Nocturia 2-3x per night. - Drinks 5-6 (16oz) glasses of water throughout the day. - She has previously failed Gemtesa as this did not improve her OAB symptoms in the past. Bowel Symptoms: - She reports constipation with having a bowel movement once every 3+ days. The patient recently started taking Amitiza to help improve her constipation; recently switched from Metamucil to MiraLAX. - Does endorse fecal urgency but no FI/ABL episodes. OBGYN History: - , x2 - Not currently sexually active and is not interested in becoming sexually active again in the future. - Does endorse vaginal dryness and irritation. Past Medical History: No past medical history on file. Past Surgical History: Past Surgical History: Procedure Laterality Date TOTAL HIP ARTHROPLASTY Bilateral TOTAL KNEE ARTHROPLASTY Bilateral Medications: Prior to Admission medications Medication Sig Start Date End Date Taking? Authorizing Provider ondansetron ODT (Zofran-ODT) 8 mg disintegrating tablet Take 1 tablet (8 mg) by mouth every 8 hoursif needed. 07/17/23 Yes Historical Provider, acetaminophen (Tylenol) 500 mg tablet Take by mouth every 6 hours if needed for mild pain (1 - 3). Historical Provider, ascorbic acid (Vitamin C) 500 mg tablet Take 1 tablet (500 mg) by mouth once daily. Historical Provider, aspirin 81 mg capsule Take by mouth. Historical Provider, uwmwdom-kdlhfackggekn-ymdqadja (Excedrin Migraine) 250-250-65 mg tablet Take 1 tablet by mouth every 6 hours if needed for headaches. Historical Provider, budesonide-formoteroL (Symbicort) 160-4.5 mcg/actuation inhaler Inhale 2 puffs 2 times a day. [place] with water after use to reduce aftertaste and incidence of candidiasis. Do not swallow. Historical Provider, calcium carbonate (Tums) 200 mg calcium chewable tablet Chew 1 tablet (500 mg) once daily. Historical Provider, cholecalciferol (Vitamin D3) 25 MCG (1000 UT) capsule Take 1 capsule (25 mcg) by mouth once daily. Historical Provider, citalopram (CeleXA) 20 mg tablet Take 1 tablet (20 mg) by mouth once daily. Historical Provider, dicyclomine (Bentyl) 20 mg tablet Take 1 tablet (20 mg) by mouth 3 times a day as needed (Abdominalspasms, cramping). 06/19/23 06/18/24 Juju Hamm DO diphenhydrAMINE (Sominex) 25 mg tablet Take 1 tablet (25 mg) by mouth as needed at bedtime for sleep. Historical Provider, HYDROcodone-acetaminophen (Bro[place]field) 5-325 mg tablet Take 1 tablet by mouth every 8 hours if needed for severe pain (7 - 10). Historical Provider, ibuprofen 200 mg tablet Take by mouth every 6 hours if needed for mild pain (1 - 3). Historical Provider, lubiprostone (Amitiza) 8 mcg capsule Take 1 capsule (8 mcg) by mouth 2 times a day with meals. Takewith meals 07/11/23 07/10/24 Juju Hamm DO mv-mn/folic acid/vit [id number] (ALIVE ONCE DAILY WOMEN 50 PLUS ORAL) Take by mouth. Historical Provider, naproxen (Naprosyn) 250 mg tablet Take 1 tablet (250 mg) by mouth 2 times a day with meals. Historical Provider, NON FORMULARY 1 each. Cryofreeze CBD roll on Historical Provider, ondansetron (Zofran) 8 mg tablet Take 1 tablet (8 mg) by mouth every 8 hours if needed for nausea or vomiting. Historical Provider, pantoprazole (ProtoNix) 40 mg EC tablet Take 1 tablet (40 mg) by mouth once daily. Do not crush, chew, or split. 06/19/23 06/18/24 Juju Hamm DO ramipril (Altace) 2.5 mg capsule Take 1 capsule (2.5 mg) by mouth once daily. Historical Provider, MD BOWLING Review of Systems Constitutional: Negative. HENT: Negative. Eyes: Negative. Respiratory: Negative. Cardiovascular: Negative. Gastrointestinal: Positive for constipation. Endocrine: Negative. Genitourinary: Positive for enuresis and urgency. Musculoskeletal: Negative. Neurological: Negative. Psychiatric/Behavioral: Negative. PHYSICAL EXAM: BP 115/74 Pulse 57 Ht 1.651 m (5' 5) Wt 50.2 kg (110 lb 11.2 oz) LMP (LMP Unknown) BMI 18.42 kg/m No LMP recorded (lmp unknown). Patient is postmenopausal. 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 Well developed, well nourished, in no apparent distress. Neurologic/Psychiatric: Awake, Alert and Oriented times 3. Affect normal. GENITAL/URINARY: External Genitalia: The patient has normal appearing external genitalia, normal skenes and bartholins glands, and a normal hair distribution. Her vulva is without lesions, erythema or discharge. It is non-tender with appropriate sensation. Normal sensation on the bilateral labia and buttocks. Absent bulbocavernosus reflexes and present anal wink reflexes bilaterally. Urethral Meatus: Size normal, Location normal, Lesions absent. Small urethral caruncle measuring around 2mm in diameter. Urethra: Fullness absent, Masses absent. Negative RIPENING ROOM HAND in the supine position. Bladder: Fullness absent, Masses absent, Tenderness absent. Vagina: General appearance normal, Discharge absent, Lesions absent. Normal vaginal epithelium, hypoestrogenic. Cervix: Normal, no discharge. Uterus: normal size, mobile, and nontender Adnexa: no masses or tenderness bilaterally Anus/Perineum: Normal Perineum Stress urinary incontinence not demonstrable. Physical Exam Genitourinary: No vaginal prolapse present. Mild vaginal atrophy present. Urethral meatus caruncle present. Pelvic Floor: Levator muscle strength is 1/5. POP-Q measurements were: Aa: -2, Ba: -2, C: -10 gH: 0.5, pB: 3, TVL: Ap: -2, Bp: -2, D: -11 Pelvic exam was performed with patient in the lithotomy position and normal support. The patient has 0 out of 5 pelvic floor muscle strength. She does not have myofascial tenderness on exam. Her highest pain score on exam is 1 Rectal exam: Deferred. documented in this [facility] Work Phone: [phone] 131-681701-09-2024 History of Present illness Narrative* Juju Hamm, - 07/11/2023 9:00 AM EST Subjective Patient ID: Sandie Ho is a 83 y.o. female who presents for Follow-up (Patient was in [facility] for a GI bleed in June 2023. 6.7 Hemoglobin. Initially went for knee issues, after having blood work they admitted for low Hemoglobin. Got 2 units of blood.). HPI He was recently hospitalized at [facility] in mid June with acute anemia. Hemoglobin 6.4 required transfusion of 2 units packed red cells. Anemia workup showed normal iron stores with told she might need to consider B12 replacement in the future. Will leave that decision to her family doctor with whom she has follow-up in the next month. Hemoglobin is currently 12.6. While hospitalized underwent endoscopy revealing a small discrete 6 mm ulcer within the duodenal bulb which was nonbleeding. Biopsies from antrum revealed no evidence of H. pylori. She takes Excedrin daily 2 to 4 tablets to control chronic daily tension headaches. She has seen multiple neurologist and is currently undergoing shots in her neck to see if that will help. I discussed pursuing Botox injections if these shots fail and they will discuss that with her pain specialist. She is currently on PPI therapy which I think is a good idea long-term. I reviewed her initial visit with she and her daughter. She was hospitalized for anemia and was found to have ischemic colitis while at [facility] in the summer. I did have a chance to review those records prior to this visit and her visit was consistent with ischemic colitis by biopsy. Follow-up CT scan was just done at [facility] showed normal colonic anatomy and normal vascular flow to the colon. She does suffer with chronic constipation she is largely inactive and is on narcotic analgesics. She states she is always had difficulty with her bowels having 1 bowel movement every 2 to 3 days and now has to strain with bowel movement. She is having some other pelvic floor dysfunction has urinary incontinence but no stool incontinence. She does have a consultative appointment scheduled with urogynecology for possible therapy of her bladder instability. I advised her best to avoid anticholinergic agents as they will increase constipation. Review of Systems Constitutional: Negative. HENT: Negative. Eyes: Negative. Respiratory: Negative. Cardiovascular: Negative. Endocrine: Negative. Genitourinary: Negative. Neurological: Negative. Hematological: Negative. Objective Physical Exam Vitals and nursing note reviewed. Constitutional: Appearance: Normal appearance. HENT: Head: Normocephalic. Mouth/Throat: Mouth: Mucous membranes are moist. Pharynx: Oropharynx is clear. Eyes: Conjunctiva/sclera: Conjunctivae normal. Pupils: Pupils are equal, round, and reactive to light. Cardiovascular: Pulses: Normal pulses. Heart sounds: Normal heart sounds. Pulmonary: Effort: Pulmonary effort is normal. Breath sounds: Normal breath sounds. Abdominal: General: Abdomen is flat. Bowel sounds are normal. Palpations: Abdomen is soft. Musculoskeletal: Cervical back: Normal range of motion and neck supple. Skin: General: Skin is warm and dry. Neurological: General: No focal deficit present. Mental Status: She is alert and oriented to person, place, and time. Psychiatric: Behavior: Behavior normal. Assessment/Plan Diagnoses and all orders for this visit: Irritable bowel syndrome with constipation - lubiprostone (Amitiza) 8 mcg capsule; Take 1 capsule (8 mcg) by mouth 2 times a day with meals. Take with meals - Follow Up In Gastroenterology; Future Ischemic colitis (CMS/HCC) - lubiprostone (Amitiza) 8 mcg capsule; Take 1 capsule (8 mcg) by mouth 2 times a day with meals. Take with meals - Follow Up In Gastroenterology; Future Peptic ulcer - Follow Up In Gastroenterology; Future Begin Amitiza 8 mcg twice daily follow-up by telephone in 2 weeks. Advised her to begin idvo-jvd-hcxomek magnesium oxide 200 mg daily. Will follow-up with neurology for Botox injections regarding hermigraines. Try to reduce use of Excedrin as able continue long-term PPI therapy. Follow-up with urogynecology regarding bladder instability. Otherwise follow-up with myself in 6 months Juju Hamm DO 07/11/23 9:33 AM documented in this [facility] Work Phone: [phone]) 919-294212-27-2023 Discharge summary Author Christian Blood [facility] June 28, 2023 9:22pm Note Date/Time June 28, 2023 9:17pm [facility] Medical Records Department [address] [place] [address] Emergency Department Summary 06/28/23 MR#: [id number] Acct: [id number] Name: SANDIE HO #:[id number] : 1940 83 From: Christian Blood MD PCP: Dr. Sergio Bailey MD Status:REG ER Location: ED HPI History of Present Illness Chief Complaint: Lower Extremity Injury Informant: patient and family Narrative Narrative: Patient has been having pain and swelling for 1 week in the right knee. She hada total knee arthroplasty 10 years ago. She was admitted to the hospital here when she presented to the ED with it more because she was found to have occult GI bleeding and low hemoglobin, and while in the hospital they addressed her knee with testing and orthopedic consultation but as family states, did not leave with an answer as to why she had a swollen right knee. She was dischargedyesterday. She states now that the swelling is no longer in the right knee and it is now in the right calf where she is having pain. It hurts to walk and put weight on it, but she has a walker and she is able. She denies any other new problems. [facility] Medical History Back pain Chronic headaches COPD (chronic obstructive pulmonary disease) DVT (deep venous thrombosis) GERD (gastroesophageal reflux disease) Iron deficiency anemia Major depressive disorder Neoplasm of kidney Occipital neuralgia of right side Osteoarthritis Spondylosis Vitamin D deficiency Home Medications budesonide-formoterol HFA 160 mcg-4.5 mcg/actuation aerosol inhaler 2 puff inhalation BID breathing 05/01/21 [History Last Taken Unknown] albuterol sulfate 90 mcg/actuation aerosol inhaler 2 puff inhalation Q4H PRN 06/06/23 [History Last Taken Unknown] citalopram 20 mg tablet 20 mg PO DAILY mental health 06/06/23 [History Last Taken Unknown] ondansetron 4 mg disintegrating tablet 8 mg PO Q8H PRN nausea and vomiting 06/06/23 [History Last Taken Unknown] oxybutynin chloride 10 mg tablet,extended release 24 hr 10 mg PO DAILY 06/06/23 [History Last Taken Unknown] pantoprazole 40 mg tablet,delayed release (Protonix) 20 mg PO DAILY 06/06/23 [History Last Taken Unknown] ramipril 2.5 mg capsule 2.5 mg PO DAILY blood pressure 06/06/23 [History Last Taken Unknown] vit B complex 100 combo no.2 100 mg tablet,extended release (B-100 Complex ER) tab PO 06/06/23 [History Last Taken Unknown] hydrocodone-acetaminophen 5-325mg 5mg-325mg 1 tab PO Q8H pain 06/21/23 [History Last Taken Unknown] Arthritis Pain Compound 2 click topical BID ##0 06/26/23 [Rx Last Taken Unknown] pantoprazole 40 mg tablet,delayed release (Protonix) 40 mg PO DAILY #30 tabs 06/26/23 [Rx Last Taken Unknown] Allergy/AdvReac Type Severity Reaction Status Date / Time No Known Allergies Allergy Verified 06/28/23 20:23 Family History Father CAD (coronary artery disease) CABG x 5 Skin cancer Brother Diabetes CAD (coronary artery disease) age 59 Skin cancer Mother Skin cancer Surgical History History of bilateral knee replacement History of left heart catheterization (~2002) History of open reduction and internal fixation (ORIF) procedure History of right hip replacement Social History household members: none Smoking Status: Former smoker alcohol intake: current alcohol intake frequency: a few times a week substance use type: does not use ROS ROS ED Constitutional Constitutional ED: Denies chills or fever(s) Musculoskeletal Musculoskeletal: Reports extremity pain; Denies neck pain Integumentary Denies Abrasions, rash or wounds Neurologic Neurologic: Denies paresthesias or weakness EXAM Physical Exam Const Vital Signs: 06/28/23 20:20 Temperature 97.6 F L Temperature Source Temporal Pulse Rate 63 Respiratory Rate 18 Blood Pressure 151/61 H Blood Pressure Mean 91 Pulse Ox 95 Oxygen Delivery Method Room Air Positive well nourished and well developed General Appearance ED: well developed and NAD Neck full ROM and supple Back/Spine normal ROM and normal to inspection Extremity Extremity Narrative: Right lower extremity: There is no effusion. She can bend the knee very well. She has tenderness and what feels like a nodule/knot that the daughter draws my attention to in her calf that is tender. It does not feel like a cord. There is no discoloration or cellulitis. The compartments are all soft and nondistended. She is full range of motion with regards to the ankle and the knee and the hip without any difficulty. She is neurovascular intact distally. Neuro oriented x3, no focal motor deficits and no sensory deficits noted Sensorium / Orientation: alert Psych mental status grossly normal and thought process normal Skin no wounds Rashes: no rashes MDM MDM MDM Narrative Medical decision making narrative: Family is concerned here about a DVT. She had a history of 1 apparently in the past, but she does not know if it was actually a DVT or an SVT, they stated was 40 years ago, patient does not recall anything about it with regards to details. Initially I said that I was happy to obtain an ultrasound of the right lower extremity in order to rule this out but the findings and events here are inconsistent with a vascular issue. However upon reviewing the EMR, I see that while she was in the hospital, she already had a venous duplex ultrasound of theright lower extremity that was negative for any vascular thrombosis. Furthermore she had a nonspecific hypoechoic area in the right gastrocnemius. Unknown if this is related, it seems that she did have x- ray that showed an effusion of the right knee, and now clinically it is gone. This is all consistent with a Leavitt's cyst, and the fluid probably has exited the joint and is draining with gravity down into her lower leg. Supportive care is advised, Isee no reason to repeat the ultrasound which I discussed at length with them, they already have hydrocodone at home, she states when she takes it it helps some, and she is able to get around. Offered admission if she feels she is unable to walk or have enough help at home but she declines and states that is not the case. She was already advised to follow-up with orthopedics Dr. Arias which I continue to recommend. History & Record Review Additional record(s) reviewed:: Prior inpatient record Discharge Plan Triage Chief Complaint: Lower Extremity Injury ED Provider: Christian Blood Dx/Rx/DC Orders Clinical Impression: Acute pain of right lower extremity Instructions: ED Leavitt's Cyst Prescriptions: No Action ondansetron 4 mg tablet,disintegrating 8 mg PO Q8H PRN (Reason: nausea and vomiting) citalopram 20 mg tablet 20 mg PO DAILY ramipril 2.5 mg capsule 2.5 mg PO DAILY budesonide-formoterol 160-4.5 mcg/actuation Hfa Aerosol Inhaler 2 puff INHALATION BID hydrocodone-acetaminophen 5-325 mg tablet 1 tab PO Q8H Arthritis Pain Compound 2 click topical BID Qty: 0 0RF pantoprazole [Protonix] 40 mg tablet,delayed release (DR/EC) 40 mg PO DAILY Qty: 30 0RF Primary Care Provider: Sergio Bailey Referrals: Parish Arias MD [Med Staff - Active Staff] - (The orthopedic that saw you in the hospital, as previously directed for follow-up upon discharge from the hospital, or the [facility] surgeon who did your knees) What to do if you have Problems For any increased pain, shortness of breath, bleeding, nausea or vomiting, chestpain, or any unexpected problems, contact your Primary Care Provider. Call [facility] ([phone]) or report to the closest Emergency Room. Call 911 if necessary. 06/28/232121 <Electronically signed by Christian Blood MD> Cosigner Signature (if applicable): CC: Dr. Sergio Bailey MD; Dr. Parish Arias MD ~ Signed [facility] Work Phone: [phone]) 310-886812-18-2023 History of Present illness Narrative* Juju Hamm, DO - 06/19/2023 2:15 PM EST Subjective Patient ID: Sandie Ho is a 83 y.o. female who presents for ischemic colitis (In January had rectal bleeding and abdominal pain, poor appetite. Was seen at the [place] [facility] and transferred to [facility] and admitted 4 days diagnosed with ischemic colitis. EGD and colonoscopy on 02/16 no sourceof GI bleed revealed. ? Barretts esophagus on EGD). HPI And is a pleasant 83-year-old female with longstanding spinal stenosis she has no chronic narcoticsfor same. Currently controlled with [place]field 5 mg 4 times daily. Was hospitalized back in January with rectal bleeding underwent EGD and colonoscopy found to have ischemic colitis involving splenic flexure ischemic colitis was noted to be linear and noncircumferential she was treated with conservative measures and discharged home after 3 days in the hospital requiring no transfusion. Patient upper endoscopy revealed what appeared to be a short segment Tirado's esophagus however biopsies are not available to confirm this. She does still have persistent heartburn family states that after she eats she walks around or sits around with a rag as she cannot move well because of her spinal stenosis and will often have small amount of reflux come up like a baby after meals. And states she has been eating smaller more spaced out meals and is done better she did not eat 3 to 4 hours before she goes to bed or she will feel food come right up into her mouth. She denies any dysphagia at this time no me lanic stools no rectal bleeding. She is having some stuttering abdominal cramping which she describes as a sensation of pressure building to a pain in her periumbilical region which intensifies it is typically improved by just resting placing heating pad on her belly or passing gas. She states she moves her bowels approximately for 2 to 3 days and she goes more than that the cramping does intensify. She is largely chair bound resting approximately 12 to 18 hours a day getting up only to toilet geta drink or shower. She relies on family assistance for bathing dressing and maintaining her home. She denies any other issues Review of Systems Constitutional: Negative. HENT: Negative. Eyes: Negative. Respiratory: Negative. Cardiovascular: Negative. Gastrointestinal: Positive for abdominal pain, anal bleeding, constipation and nausea. Endocrine: Negative. Genitourinary: Negative. Neurological: Negative. Hematological: Negative. Objective Physical Exam Vitals and nursing note reviewed. Constitutional: Appearance: Normal appearance. HENT: Head: Normocephalic. Mouth/Throat: Mouth: Mucous membranes are moist. Pharynx: Oropharynx is clear. Eyes: Conjunctiva/sclera: Conjunctivae normal. Pupils: Pupils are equal, round, and reactive to light. Cardiovascular: Pulses: Normal pulses. Heart sounds: Normal heart sounds. Pulmonary: Effort: Pulmonary effort is normal. Breath sounds: Normal breath sounds. Abdominal: General: Abdomen is flat. Bowel sounds are normal. Palpations: Abdomen is soft. Musculoskeletal: Cervical back: Normal range of motion and neck supple. Skin: General: Skin is warm and dry. Neurological: General: No focal deficit present. Mental Status: She is alert and oriented to person, place, and time. Psychiatric: Behavior: Behavior normal. 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 I reassured the family that ischemic colitis usually fixed event is likely related to her constipation and hopefully through beginning MiraLAX 17 g Monday and continue Metamucil daily and increase dietary water and fiber that she will have no additional symptoms. They are informed to use the Bentyl as needed but not daily to control her abdominal cramping if she is constipated or the medicine causes too much sedation they are to call the office right away Juju Hamm DO 06/19/23 5:14 PM [facility] Work Phone: [phone]) 403-677310-20-2023 History of Present illness Narrative* Sangeeta Sim MD - 04/21/2023 4:33 PM EDT Sandie Ho 1940 REFERRING PHYSICIAN: No ref. provider found CHIEF COMPLAINT: Consult (Ischemic Colitis) HPI: The patient is a 82 year old female with a complaint of severe generalized abdominal pain. She had undergone workup at [facility] in January of this year with CT scan, EGD/colonoscopy and was diagnosed with ischemic colitis. She presents with her daughter for treatment of this pain. She points to the mid abdomen and all throughout for this pain. She states that it comes and goes. She also complains of headache. They do not wish to return to [facility], the daughter states that she did [...] SURGICAL HISTORY OF 2014 R THR - [facility] PAST SURGICAL HISTORY OF Right 07/2014 total [...] 50 mg by mouth once daily. (Patient nottaking: Reported on 04/21/2023) pantoprazole DR (PROTONIX) 40 [...] inhaler INHALE 1 PUFF BY MOUTH EVERY 4HOURS NEEDED AND 15 MINUTES PRIOR TO ACTIVITY [...] x5 Coronary Artery Disease Brother aged 52, PR Diabetes Brother Type II No Family History Other Colon Cancer/Polyps The review of systems data was entered by the nurse and reviewed by mo Nursing Notes: Monika Fontanez LPN 04/21/2023 4:27 PM Signed REVIEW OF SYSTEMS: General: The patient NOTES fatigue, denies weight loss, denies weight gain, denies feeling hot, anddenies feelings of cold. Eyes: The patient denies [...] nourished, well hydrated in no acute distress. Thepatient is oriented to time, place, and person. VITALS: Blood pressure 102/88, pulse 94, temperature 37 C (98.6 F), height 165.1 cm (5' 5), regrri68.8 kg (116 lb 6.4 oz), SpO2 96 [...] [facility] and [facility] at. They did not want me to refer them to GI medicine, and they didn't want to go back to [facility] The patient's daughter states that she was told by someone who answers phones that I could help andtreat the patient. I have explained that there is no indication for surgery and that the patient would be best treated by a merit system director. I have explained that the patient should stop her NSAID use, but then the patient's daughter said that the doctors at [facility] told her otherwise. The patient's daughter was angry and stated that she wasted her time with this appointment.. I apologized, explaining that I have no control over what is scheduled in the clinic and once againoffered referral within [facility], but they left the [...] Straightforward Sangeeta Sim MD [facility] Note* Monika Fontanez LPN - 04/21/2023 4:24 PM EDT REVIEW OF SYSTEMS: General: The patient NOTES fatigue, denies weight loss, denies weight gain, denies feeling hot, anddenies feelings of cold. Eyes: The patient denies [...] 01/2023 Monika Fontanez LPN documented in this encounterGal[facility]10-14-[facility]23 NoteHNO ID: [id number] Author: Note, Interface Service: ? Author Type: ? Type: Progress Notes Filed: 04/15/2023 5:26 AM Note Text: Epic Scheduled Downtime: 04/15/2023 1:00:00 AM to 04/15/2023 1:28:00 [facility]08-23-2023 Miscellaneous Notes* Telephone Encounter - Zoie Mckeon RN - 02/22/2023 11:21 AM EDT PATIENT INFORMATION Record ID: [id number] Patient Name: [facility]: [facility] [place]: [facility] Attending: Milla Yu Center: Hospital Medicine INSTRUCTIONS All Clear SN to remind patient of next upcoming appointment date, time, location All Clear All Clear All Clear SURVEY INFORMATION Medical/Nurse Technical Solutions Consultant: Zoie Mckeon 1. Your discharge instructions are [...] symptoms? (Standard Question) No documented in this encounterGalion Hospital08-19-2023 NoteHNO ID: [id number] Author: Milla Yu MD Service: Hospital Medicine [...] report is indeterminate Other, please specify [facility]08-19-2023 Note HNO ID: [id number] Author: Nikia Merchant APRN.LIME BOILER Service: Gastroenterology Author Type: Nurse Practitioner Type: Progress Notes Filed: 02/24/2023 7:25 AM Note Text: Documentation Query Based on your medical judgment of the clinical indicators outlined below, please clarify the condition: (Please type X next to your response and sign) Clinical Indicators: 02/17 POC note Nikia VALLE EGD revealed [place]-colored 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 02/16 Surgical pathology updated 02/23 Dr. [...] Ruled In Diagnosis Ruled Out Other, [facility]-2023 NoteHNO ID: [id number] Author: Nikia Merchant APRN.LIME BOILER Service: Gastroenterology Author Type: Nurse Practitioner Type: Plan of Care Filed: 02/17/2023 5:08 PM Note Text: GI following for GI bleed. S/p EGD/ Colonoscopy yesterday with Dr. Obando. Colonoscopy with Segmental moderate inflammation was found in the sigmoid colon and in the descending colon secondary to ischemic colitis. Biopsied. 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 Biopsied. CTA completed today demonstrating No [...] GI will sign off. GI Attending: Dr. Sullivan [facility]08-18-2023 NoteHNO ID: [id number] Author: Daysi De Jesus RN Service: Care [...] SIGNATURE: Daysi De Jesus RN PATIENT NAME: Sandie Ho DATE: February 17, 2023 TIME: 4:42 PM PAGER/CONTACT #: [phone] [facility] 02-[facility]-2023 NoteHNO ID: [id number] Author: Milla Yu MD Service: Hospital Medicine Author Type: Physician Type: Progress Notes Filed: 02/17/2023 12:01 PM Note Text: DEPARTMENT OF HOSPITAL MEDICINE PROGRESS NOTE SERVICE DATE: 02/17/2023 Hospital Medicine/Primary Attending: Milla Carney MD NIGHT AND WEEKEND COVERAGE: After 7pm please page [phone] SUBJECTIVE: patient complains of sharp left sided [...] TID PRN sodium chloride 0.65 % 2 Salem 2 [place] EACH NOSTRIL PRN prochlorperazine 10 mg injection [...] (POA: Status not on file) HOSPITAL COURSE: Sandie Ho is a 82 year old female [...] Patient SIGNATURE: Milla Yu MD PATIENT NAME: Sandie Ho PAGER/CONTACT #: Sound team [facility]08-17-2023 NoteHNO ID: [id number] Author: Milla Yu MD Service: Hospital Medicine Author Type: Physician Type: Progress Notes Filed: 02/17/2023 8:28 AM Note Text: DEPARTMENT OF HOSPITAL MEDICINE PROGRESS NOTE SERVICE DATE: 02/16/2023 Hospital Medicine/Primary Attending: Milla Carney MD NIGHT AND WEEKEND COVERAGE: After 7pm please page [phone] SUBJECTIVE: headache almost gone No acute events [...] TID PRN sodium chloride 0.65 % 2 Salem 2 [place] EACH NOSTRIL PRN prochlorperazine 10 mg injection [...] pulmonary disease) (HCC) (POA: Yes) HOSPITAL COURSE: Sandie Ho is a 82 year old female [...] Patient SIGNATURE: Milla Yu MD PATIENT NAME: Sandie Ho PAGER/CONTACT #: Jennifer team [facility]08-17-2023 NoteHNO ID: [id number] Author: Hoda Gunn APRN.WATER QUALITY CONTROL ENGINEER Service: Anesthesiology Author Type: Nurse Sound Tester Type: Anesthesia Procedure Notes Filed: 02/16/2023 11:44 AM Note Text: ANESTHESIOLOGY PROCEDURE NOTE PIV General Information Procedure Start Time/Medication Administration: 02/16/2023 11:24 AM Staffing WATER QUALITY CONTROL ENGINEER: Jacque Marin APRN.WATER QUALITY CONTROL ENGINEER Performed by: FERNANDA Preparation Sterility Preparation: hand hygiene performed prior to procedure, surgical cap used, mask used, skin prep agent completely dried prior to procedure Site Prep: Chloraprep Procedure Details Indication: need for IV access Needle Size/Type: 20 gauge angiocath Orientation: Right Location: Antecubital Imaging Guidance Used: No SIGNATURE: Hoda Gunn APRN.CRNA PATIENT NAME: Sandie Ho DATE: February 16, 2023 TIME: 11:44 AM CSN: [id number] [facility] of Angels [facility]08-16-2023 NoteHNO ID: [id number] Author: Daysi De Jesus RN Service: Care Management Author Type: Registered Nurse Type: Care Mgt Initial Assessment Filed: 02/15/2023 3:57 PM Note Text: CARE MANAGEMENT: ASSESSMENT AND DISCHARGE PLAN SERVICE DATE: February 15, 2023 SERVICE TIME: 155 PCP: Sergio Bailey MD Primary Contact: Extended Emergency Contact Information Primary Emergency Contact: AloBladimir Address: [address] [place] [address] Mobile Relation: Spouse Secondary Emergency Contact: Ro Wilkins Mobile Relation: Daughter Admission Status: Inpatient Insurance Provider: SHANDRA DUKE Discharge Planning requested by: Per Department Practice Potential Transition Plans To Be Determined Advance Directives Current Advance Directive: Health Care Power of Respiratory Tech In Chart: Yes Up To Date and Valid: Yes Current Living Arrangements and Support Lives with: Spouse/significant other Type of Residence: Private Residence (House) Does the patient have to climb stairs at home?: stairs outside the home;stairs within the home;Yes Support: Family members, Spouse/significant other How do you manage to accomplish the following: Independent: Ambulation;Bathe/Shower;Dress;Meals/Meal Prep;Going to the bathroom;Medication Management;Transportation to appointments/community Current Services/Equipment Current Post-Acute Service(s): DME Current DME Type: Bedside commode, Cane, Shower seat, Rolling walker, Wheelchair-manual Discharge Planning Patient Goal(s): General wellness, Be able to go home, Independent living, Less pain [place] of Choice Explained: [place] of [place] Given: No Reason Not Given: [...] cane or walker, drives. + PCP Dr. Sergio Bailey, last visit was in January. + DME, + RX coverage, uses [facility] in [place]. Goal is to return home at d/c. Family to provide transportation home. Will continue to follow. SIGNATURE: Daysi De Jesus RN PATIENT NAME: Sandie Ho DATE: February 15, 2023 TIME: 3:54 PM CONTACT #: [phone] Lady of Angels Hospital08-16-2023 Note HNO ID: [id number] Author: Milla Yu MD Service: Hospital Medicine Author Type: Physician Type: Progress Notes Filed: 02/15/2023 12:49 PM Note Text: DEPARTMENT OF HOSPITAL MEDICINE PROGRESS NOTE SERVICE DATE: 02/15/2023 SERVICE TIME: 12:46 PM Hospital Medicine/Primary Attending: Milla Carney MD NIGHT AND WEEKEND COVERAGE: After 7pm please page [phone] SUBJECTIVE: patient continues to have headache , [...] TID PRN sodium chloride 0.65 % 2 Salem 2 [place] EACH NOSTRIL PRN prochlorperazine 10 mg injection [...] pulmonary disease) (HCC) (POA: Yes) HOSPITAL COURSE: Sandie Ho is a 82 year old female with -GI bleed Continue IV PPI Monitor Hgb and keep>7 Clear liquid diet GI follows -Headache /Migraine Migraine cocktail x1 Tylenol prn -HTN Controlled Continue BB VTE Prophylaxis: APPROPRIATE Disposition: Home Plan of care discussed with: Provider, RN, Patient SIGNATURE: Milla Yu MD PATIENT NAME: Sandie Ho DATE: February 15, 2023 TIME: 12:46 PM PAGER/CONTACT #: Jennifer borrero [facility] 01-25-2023 History and physical note Author Valentina Palomares [facility] January 25, 2023 10:32pm Note Date/Time January 25, 2023 8:30 pm [facility] Medical Records Department [address] [place] [address] H&P Exam - Hospitalist 01/25/232025 MR#: [id number] Acct: [id number] Name: SANDIE HO Rep #:[id number] : 1940 82 From: Valentina Palomares MD PCP: Dr. Sergio Bailey MD Status:REG ER Location: ED HPI - General General Date of Admission: 01/25/23 Date of Service: 01/25/23 Chief Complaint: Chest pain HPI Narrative The patient is an 82 y/o F w/ PMHx: Former tobacco use, COPD, Hx VTE, Depressionand Anxiety, Chronic anemia/Fe deficiency anemia, Chronic Headaches, GERD, HTN, Chronic pain syndrome with chronic buprenorphine patch who presents to the [facility] ED on 01/25/23 with history of chest discomfort beginning yesterday at approximately noon sharp located over the left chest and not worse or more pronounced with exertion prompting her to take several Excedrin specifically 6 as well as 1 ibuprofen pill over a 12-hour period the day prior with no recent surgery or prolonged car drives given ongoing prompted eventual ED arrival for evaluation. She notes that the discomfort is aching and left-sided only nature with no radiation with associated nausea with no emesis but no diaphoresis or dyspnea and at its worst rated discomfort 10 out of 10, currently 3 out of 10. She does admit that she is unfortunately been out of her blood pressure medications for at least a week and that they have been elevated. She denies any current headaches. Work-up in the ED included T98, heart rate 83, BP 144/80 with most recent repeat 159/88, respiratory rate 16, 96% room air, CBC with WC 6.2, hemoglobin 12.2, platelet 270 without marked shift, BMP with chloride 108, glucose 117, troponin initial 26 with delta repeat 17, chest x-ray with no acutecardiopulmonary finding, EKG with normal sinus rhythm with ST depression laterally similar to prior EKG 03/03/2022. In the ED patient administered a full-strength aspirin therapy. [facility] Medical History (Updated 01/25/23 @ 22:[address] Valentina Palomares MD) Back pain Chronic headaches COPD (chronic obstructive pulmonary disease) DVT (deep venous thrombosis) GERD (gastroesophageal reflux disease) Glaucoma Iron deficiency anemia Major depressive disorder Neoplasm of kidney Occipital neuralgia of right side Osteoarthritis Spondylosis Vitamin D deficiency Home Medications venlafaxine 150 mg capsule,extended release 24 hr 75 mg PO DAILY 01/09/19 [History Last Taken Unknown] budesonide-formoterol HFA 160 mcg-4.5 mcg/actuation aerosol inhaler 2 puff inhalation BID 05/01/21 [History Last Taken Unknown] metoprolol succinate 50 mg tablet,extended release 24 hr 50 mg PO DAILY 03/03/22[History Last Taken Unknown] ondansetron 4 mg disintegrating tablet 4 mg PO Q8H PRN nausea and vomiting #10 tabs 03/03/22 [Rx Last Taken Unknown] buprenorphine 7.5 mcg/hour weekly transdermal patch 1 patch transdermal Q7D 01/25/23 [History Last Taken Unknown] Allergy/AdvReac Type Severity Reaction Status Date / Time duloxetine [From Cymbalta] AdvReac NEEDS Verified 01/25/23 15:37 FOLLOW-UP Family History (Updated 01/25/23 @ 22:[address] Valentina Palomares MD) Father CAD (coronary artery disease) CABG x 5 Brother CAD (coronary artery disease) age 59 Diabetes Mother No problems noted. Surgical History History of bilateral knee replacement History of left heart catheterization (~2002) History of open reduction and internal fixation (ORIF) procedure History of right hip replacement Social History (Updated 01/25/23 @ 22:[address] Valentina Palomares MD) household members: none Smoking Status: Former smoker alcohol intake: current alcohol intake frequency: a few times a week substance use type: does not use ROS ROS Narrative Admission Review of Systems: CONSTITUTIONAL: No weight loss, fever, chills, + weakness or fatigue. HEENT: Eyes: No visual loss, blurred vision, double vision or yellow sclerae. Ears, Nose, Throat: No hearing loss, sneezing, congestion, runny nose or sore throat. SKIN: No rash or itching, lesions, wounds. CARDIOVASCULAR: + chest pain, chest pressure or chest discomfort. No palpitations, edema, orthopnea, syncopal events. RESPIRATORY: No shortness of breath, cough or sputum, wheezing, hemoptysis. GASTROINTESTINAL: + anorexia, nausea. No vomiting or diarrhea, abdominal pain, melena, BRBPR. GENITOURINARY: No dysuria, frequency, urgency or retention. NEUROLOGICAL: + Chronic headaches. No dizziness, syncope, paralysis, ataxia, numbness or tingling in the extremities, focal weakness, change in bowel or bladder control, seizure. MUSCULOSKELETAL: + muscle, back pain, joint pain or stiffness. HEMATOLOGIC: + anemia, bleeding or bruising. LYMPHATICS: No enlarged nodes. No history of splenectomy. PSYCHIATRIC: + history of depression or anxiety. ENDOCRINOLOGIC: No reports of sweating, cold or heat intolerance. No polyuria orpolydipsia. ALLERGIES: No history of asthma, hives, eczema or rhinitis. Vital Signs Vital Signs Vital Signs: 01/25/23 15:38 01/25/23 15:50 01/25/23 19:55 Temperature 98 F Temperature Source Temporal Pulse Rate 83 77 80 Respiratory Rate 16 17 18 Blood Pressure 144/80 H 151/82 H 159/88 H Blood Pressure Mean 101 105 111 Pulse Ox 96 Oxygen Delivery Method Room Air 01/25/23 20:23 Temperature Temperature Source Pulse Rate Respiratory Rate Blood Pressure Blood Pressure Mean Pulse Ox Oxygen Delivery Method Room Air Weight Weight: 112 lb Body Mass Index (BMI) 18.0 Physical Exam Narrative Physical Examination: General: Awake, alert, oriented x 3 and cooperative, laying in the bed, mildly fatigued, appears comfortable but states pain currently 3 out of 10 in severity to the left chest. Skin: Normal color, normal turgor, no icterus, no cyanosis except occasional staged ecchymoses. HEENT: AT/NC, EOMI, PERRLA, MMM, no carotid bruits or JVD noted. Lungs: Mildly diminished, greater bases, proper effort, no rales, ronchi or wheezing. Heart: Regular rate and rhythm; no gallop, rub audible. Abdomen: Soft, NTTP, ND, hyperactive BS, no HSM. Extremities: No cyanosis, clubbing, or edema. Neurological: Patient awake, alert, oriented as noted, cognitive function intact; pupils equally reactive to light and accommodation, cranial nerves II-XII grossly normal, moving all 4 extremities, no focal deficits, strength mildlyto moderately globally decreased secondary to acute complaints and underlying comorbidities as well as advanced age Psychiatric: Affect appears fatigued otherwise normal, no acute evidence of depressive or anxiety feelings but does have underlying history. Results Lab / Micro Data 01/25/23 15:40 01/25/23 15:40 Labs: Laboratory Results - last 24 hr 01/25/23 15:40: WBC 6.2, RBC 3.90 L, Hgb 12.2, Hct 36.3 L, MCV 93.1, MCH 31.3, MCHC 33.6, RDW Std Deviation 44.9 H, RDW Coeff of Mark 13.2, Plt Count 270, MPV 9.0, Immature Gran % (Auto) 0.200, Neut % (Auto) 41.5 L, Lymph % (Auto) 43.3 H, [place] % (Auto) 10.2 H, Eos % (Auto) 4.0, Baso % (Auto) 0.8, Absolute Neuts (auto)2.6, Absolute Lymphs (auto) 2.68, Nucleated RBC % 0, Sodium 140, Potassium 3.5, Chloride 108 H, Carbon Dioxide 28.0, Anion Gap 4 L, BUN 18, Creatinine 0.80, Estim Creat Clear Calc 43.48, Est GFR (MDRD) Af Amer 88, Est GFR (MDRD) Non-Af 73, BUN/Creatinine Ratio 22.5 H, Glucose 117 H, Calcium 9.0, Troponin I High Sens 26 01/25/23 18:00: Troponin I High Sens 17 Radiology Impression Chest X-Ray 01/25/23 16:28 IMPRESSION: No acute cardiopulmonary abnormality. No interval change Electronically Signed: Iris Castro MD at 16:40 EDT , Assessment & Plan Assessment/Plan (1) Chest pain: PLAN: Plan The patient is an 82 y/o F w/ PMHx: Former tobacco use, COPD, Hx VTE, Depressionand Anxiety, Chronic anemia/Fe deficiency anemia, Chronic Headaches, GERD, HTN, Chronic pain syndrome with chronic buprenorphine patch who presents to the [facility] ED on 01/25/23 with history of chest discomfort beginning yesterday at approximately noon sharp located over the left chest and not worse or more pronounced with exertion prompting her to take several Excedrin specifically 6 as well as 1 ibuprofen pill over a 12-hour period the day prior with no recent surgery or prolonged car drives given ongoing prompted eventual ED arrival for evaluation. #1. Chest Pain: EKG in ED sinus rhythm with no acute evidence of ischemia, CXR w/ no acute cardiopulmonary findings, initial trop 26 with repeat delta 17. Willadmit to PCU, place on a monitored bed to assure no acute myocardial infarction with serial cardiac enzymes and EKGs. If repeat cardiac enzymes and EKGs remainunremarkable will pursue a.m. cardiac stress testing. FLP in AM. Magnesium level requested. Certainly could be related with patient's uncontrolled hypertension as she is been off her medication for 1 week which was discussed and she notes unfortunately that she just ran out and was able to get a refill and is requesting that this be obtained at her discharge to assure she has the proper medications. ASA, NG, morphine. #2. Hypertension, uncontrolled possibly contributing to #1: Patient unfortunately out of her blood pressure medication for the last week with elevated blood pressures, certainly likely contributing to #1 presentation, willreinitiate patient metoprolol regimen and from discussion with her and her family will need refill at her discharge, will also have as needed IV hydralazine. #3. Chronic COPD: Patient is not on any chronic oxygen or chronic inhalers per review of list, given presentation to be cautious we will maintain on ATC budesonide therapy with PRN albuterol, HOB, IS parameters. #4. Former tobacco usage: Noted remote and minimal but did have significant exposure to smoking in her youth, encourage continued tobacco cessation. #5. Chronic anemia/iron deficiency anemia: Admission hemoglobin 12.2, MCV 93.1,baseline hemoglobin appears 12-13 over the last several years, appears stable, encourage continued outpatient follow-up, currently does not appear to be on iron supplementation. #6. Anxiety and depression: We will continue patient home venlafaxine regimen. #7. GERD: We will have as needed Mylanta, not on chronic regimen per review of current list #8. History of VTE: Not on chronic anticoagulation, from description apparentlyprovoked remotely. She has been active, moving with no recent prolonged travel nor recent LE pain/swelling. #9. Chronic pain syndrome, chronic back pain: We will continue patient home chronic buprenorphine patch which she notes was placed 2 days prior to current presentation. #10. DVT prophylaxis: Given type of admission would consider low risk, encourage ambulation. #11. CODE status: Patient does have a living will in place and her daughter whois present she notes would be her decision-maker if she was unable. Discussed CODE status at length including difference between FULL code, DNR-CCA and DNR- CCstatus. Following discussions about the differences in these status, requested Full Code status. Charges/Coding Visit Charges Inpatient E&M: 20884 Init Hosp L2 01/25/232231 <Electronically signed by Valentina Palomares MD> Cosigner Signature (if applicable): CC: Dr. Valentina Palomares MD; Dr. Sergio Bailey MD~ Signed [facility] Work Phone: 1(314) 985-325707-26-2023 Discharge summary Author Jean Morales [facility] January 25, 2023 9:54pm Note Date/Time January 25, 2023 3:55 pm [facility] Medical Records Department [address] [place] [address] Emergency Department Summary 01/25/23 MR#: [id number] Acct: [id number] Name: SANDIE HO Rep #:[id number] : 1940 82 From: Jean Gottlieb PCP: Dr. Sergio Bailey MD Status:REG ER Location: ED HPI History of Present Illness Chief Complaint: Chest Pain [facility] Medical History (Updated 01/25/23 @ 21:[address] Jean Morales DO) NEFTALY positive Back pain Chronic headaches Colonic polyp COPD (chronic obstructive pulmonary disease) DVT (deep venous thrombosis) GERD (gastroesophageal reflux disease) Glaucoma Iron deficiency anemia Major depressive disorder Neoplasm of kidney Occipital neuralgia of right side Osteoarthritis Spondylosis Vitamin D deficiency Home Medications venlafaxine 150 mg capsule,extended release 24 hr 75 mg PO DAILY 01/09/19 [History Last Taken Unknown] budesonide-formoterol HFA 160 mcg-4.5 mcg/actuation aerosol inhaler 2 puff inhalation BID 05/01/21 [History Last Taken Unknown] metoprolol succinate 50 mg tablet,extended release 24 hr 50 mg PO DAILY 03/03/22[History Last Taken Unknown] ondansetron 4 mg disintegrating tablet 4 mg PO Q8H PRN nausea and vomiting #10 tabs 03/03/22 [Rx Last Taken Unknown] buprenorphine 7.5 mcg/hour weekly transdermal patch 1 patch transdermal Q7D 01/25/23 [History Last Taken Unknown] Allergy/AdvReac Type Severity Reaction Status Date / Time duloxetine [From Cymbalta] AdvReac NEEDS Verified 01/25/23 15:37 FOLLOW-UP Family History Father CAD (coronary artery disease) CABG x 5 Brother CAD (coronary artery disease) age 59 Diabetes Surgical History History of bilateral knee replacement History of left heart catheterization (~2002) History of open reduction and internal fixation (ORIF) procedure History of right hip replacement Social History Smoking Status: Former smoker alcohol intake: current alcohol intake frequency: a few times a week EXAM Physical Exam Const Vital Signs: 01/25/23 15:38 01/25/23 15:50 01/25/23 19:55 Temperature 98 F Temperature Source Temporal Pulse Rate 83 77 80 Respiratory Rate 16 17 18 Blood Pressure 144/80 H 151/82 H 159/88 H Blood Pressure Mean 101 105 111 Pulse Ox 96 Oxygen Delivery Method Room Air 01/25/23 20:23 Temperature Temperature Source Pulse Rate Respiratory Rate Blood Pressure Blood Pressure Mean Pulse Ox Oxygen Delivery Method Room Air Heart Score History: Slightly/Non-Suspicious ECG: Normal (baseline) Age: >/= 65 years Risk Factors: 1 or 2 Risk Factors Troponin: </= Normal Limit Score: 3 MDM MDM MDM Narrative Medical decision making narrative: HISTORY OF PRESENT ILLNESS: 82-year-old female here with chest pain. She states this began yesterday aroundnoon. States it is not exertional it is not pressure-like just feels sharp located over the left chest. Her daughter states patient did take approximately6 Excedrin, 1 ibuprofen pill within a 12-hour period yesterday. The patient denies recent surgery in the last 4 weeks or immobilization in the last 3 days, denies previous diagnosis of PE, hemoptysis, unilateral leg swelling or malignancy with treatment the last 6 months. No estrogen use noted. Patient denies sudden onset of pain, no tearing sensation, no migratory symptoms, no newnumbness, weakness or loss of sensation. Patient denies family history or personal history of Marfan syndrome or Reny-Danlos. Patient denies smoking. Denies estrogen use. Denies family personal history of heart attacks. REVIEW OF SYSTEMS: Pertinent positives: Chest pain Pertinent negatives: Shortness of breath, abdominal pain, vomiting, bleeding diathesis PHYSICAL EXAM: Nursing triage notes reviewed, Vital signs reviewed Constitutional: please see mdm HENT: MMM Eyes: Pupils equal round and reactive to light, Extraocular muscles intact Neck: No stridor, no JVD, full neck ROM Lungs: Clear to auscultation, No wheezing or rales. No increased work of breathing, no conversational dyspnea, no accessory muscle use, no nasal flaring. No respiratory distress noted Heart: Regular rate and rhythm, No murmurs, No rubs and No gallops, 2+ distal pulses (radial, femoral, posterior tibial) in all extremities Abdomen: Soft, there is no tenderness, rigidity, rebound or guarding, no obviousperitoneal signs, no palpable pulsatile abdominal masses, no auscultated abdominal bruit : No CVAT Extremities: No edema Neuro: No focal neurological deficits, cranial nerves II through XII intact, 5/5strength in all extremities. Intact sensation to light touch in all extremities,2+ reflexes bilateral patella tendons. Normal gait. No ataxia. Skin: No rash or lesions noted MEDICAL DECISION MAKING: Chief Complaint: Chest pain External records reviewed: EKG reviewed from March 2020, Last [id number] had ejection fraction 55% Factors affecting care: COPD, GERD Social determinants of health: Elderly History obtained from others: The patient's family Consults: none [] ALL IMAGES (IF OBTAINED) HAVE BEEN PERSONALLY REVIEWED AND INTERPRETED BY MYSELF. EKG with normal sinus rhythm, normal axis, normal intervals, noted ST depressions laterally which are similar to prior EKG on 03/03/2022 MDM Narrative: Patient was hemodynamically stable, afebrile, nontoxic-appearing. Exam without focal cardiopulmonary maladies. There is no crepitus to the patient's neck. Pulses were symmetric. No focal deficits. Concerned about the following differential: I considered the following differential diagnosis: PE less likely given low risk Wells score. Aortic dissection is thought to be less likely given no sudden ripping or tearing pain, migratory pain, palpable pulse inequalities, no focal neurologic deficits concurrent with chest pain. Chance of dissection less than 07/1999. Pericarditis less likely given no pathognomonic EKG changes (no diffuse ST elevations, NC depressions). GI etiology (i.e. Boerhaave syndrome) less likely given no chest or neck crepitus, no vomiting or forced retching. I obtained a broad lab and imaging work-up to further elucidate the etiology of the patient's complaints. Labs and images were remarkable for no evidence of acute myocardial ischemia, no evidence of acute STEMI. Patient had 1 episode of chest pain here*repeat EKG which was also nonischemic. Patient is 82 years old had an elevated heart score and as such admitted for serial biomarkers and confirmatory testing. Discussed this with the hospitalist. The patient and/or family, caregivers express understanding. The patient and/or family, caregivers agrees with the plan. Shared decision making: I will have a discussion with the patient and or visitors regarding risk/benefits of further testing or admission. They will be made aware of of the risk/benefits inherent in this decision they will be given the opportunity to voice understanding. Total critical care time today provided was at least 0 minutes. This excludes separately billable procedures. Critical care time (if documented) is secondary to the patient having high probability of clinically significant/life threatening deterioration in the patient's condition which required my urgent intervention. Impression: Chest pain, elevated heart score Lab Data Labs: Laboratory Results - last 24 hr 01/25/23 01/25/23 15:40 18:00 WBC 6.2 RBC 3.90 L Hgb 12.2 Hct 36.3 L MCV 93.1 MCH 31.3 MCHC 33.6 RDW Std Deviation 44.9 H RDW Coeff of Mark 13.2 Plt Count 270 MPV 9.0 Immature Gran % (Auto) 0.200 Neut % (Auto) 41.5 L Lymph % (Auto) 43.3 H Ventura % (Auto) 10.2 H Eos % (Auto) 4.0 Baso % (Auto) 0.8 Absolute Neuts (auto) 2.6 Absolute Lymphs (auto) 2.68 Nucleated RBC % 0 Sodium 140 Potassium 3.5 Chloride 108 H Carbon Dioxide 28.0 Anion Gap 4 L BUN 18 Creatinine 0.80 Estim Creat Clear Calc 43.48 Est GFR (MDRD) Af Amer 88 Est GFR (MDRD) Non-Af 73 BUN/Creatinine Ratio 22.5 H Glucose 117 H Calcium 9.0 Magnesium 1.2 L Troponin I High Sens 26 17 Radiography Diagnostic Testing: Clinical Impression(s) from Imaging Studies Chest X-Ray 01/25/23 16:28 IMPRESSION: No acute cardiopulmonary abnormality. No interval change Electronically Signed: Iris Castro MD at 16:40 EDT , Discharge Plan Triage Chief Complaint: Chest Pain ED Provider: Jean Morales Dx/Rx/DC Orders Clinical Impression: Chest pain Prescriptions: No Action venlafaxine 150 mg capsule,extended release 24hr 75 mg PO DAILY budesonide-formoterol 160-4.5 mcg/actuation Hfa Aerosol Inhaler 2 puff INHALATION BID metoprolol succinate 50 mg tablet extended release 24 hr 50 mg PO DAILY Patient Comments: TAKE 1 TABLET BY MOUTH ONCE DAILY WITH SUPPER ondansetron 4 mg tablet,disintegrating 4 mg PO Q8H PRN (Reason: nausea and vomiting) Qty: 10 0RF buprenorphine 7.5 mcg/hour patch weekly 1 patch transdermal Q7D Rx Instructions: applied Monday01/22/23 Primary Care Provider: Sergio Bailey Referrals: Sergio Bailey MD [Primary Care Provider] - Disposition Disposition: Acute Care [facility] What to do if you have Problems For any increased pain, shortness of breath, bleeding, nausea or vomiting, chestpain, or any unexpected problems, contact your Primary Care Provider. Call [facility] ([phone]) or report to the closest Emergency Room. Call 911 if necessary. 01/25/232153 <Electronically signed by Jean Morales DO> Cosigner Signature (if applicable): CC: Dr. 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 Ludmila Dukes MA * Telephone Encounter - Simona Nix MA - 06/19/2022 8:53 AM EST Left message for pt to call back. Simona Nix MA * Telephone Encounter - Shelbi Lei APRN.CNP - 06/19/2022 8:17 AM EST Please notify patient that urine culture +, will treat with augmentin for 7 days. If still having symptoms needs to follow up with urology or PCP for further evaluation. Prescription sent to [facility]. Shelbi Lei APRN.SHNADRA documented in this encounterGalion [facility]12-16-2022 Miscellaneous Notes* Telephone Encounter - Mecca Gomez LPN - 06/17/2022 3:10 PM EST Left message for patient to call office back, patient to make an appointment to see Dr Sim regarding pain symptoms. * Telephone Encounter - Lay Bailey LPN - 06/17/2022 11:49 AM EST Patient called asking to leave message for Dr. Sim. Patient what's to know what the next plan is for pain. Patient states she has currently exhausted all measures at this time and nothing is helping. Please advise and call patient at [phone]. Lay Bailey LPN documented in this encounterGalion Hospital12-16-2022 Instructions* Patient Instructions* García Alvarez APRN.SHANDRA - 06/17/2022 12:38 PM EST [facility] [...] a virus. The most common viruses are thosethat cause upper respiratory infections, such as the [...] (fever, enlarged glands in the neck, white patcheson your tonsils, and no cough) can help [...] are available within a few minutes. The testis accurate in most cases, although a small [...] than other forms of hard candy, which aregenerally less expensive. Other treatments -- Other treatments [...] the treatment of choice for strep throat. Itis usually given in pill or liquid form two to four times per day for 10 days. A one time injectionof penicillin is also available. People who are allergic to penicillin are given an alternate antibiotic. It is important to finish the entire course of treatment to completely eliminate the infection. If symptoms do not begin to improve or worsen by three days of antibiotic treatment, you should seeyour doctor or nurse again. Return to work/school [...] you may participate in your usual activities assoon as you feel well. SORE THROAT PREVENTION [...] your sleeve (at the inner elbow) is anotherway to contain sprays of saliva and secretions and will not contaminate your hand documented in this encounterGalion Hospital12-16-2022 History of Present illness Narrative* García Alvarez APRN.CNP - 06/17/2022 12:19 PM EST Subjective HPI Nontoxic-appearing female presents urgent care [...] SURGICAL HISTORY OF 2014 R THR - [place] PAST SURGICAL HISTORY OF Right 07/2014 total [...] inhaler INHALE 1 PUFF BY MOUTH EVERY 4HOURS NEEDED AND 15 MINUTES PRIOR TO ACTIVITY ondansetron (ZOFRAN) 4 mg tablet Take 0.5-1 tablets by mouth every 8 hours as needed for Nausea/Vomiting. CALCIUM CITRATE/VITAMIN D3 (CITRACAL + D ORAL) Take by mouth once daily. Hogelcz-Mimrogepdzheb-Kntgadgy (EXCEDRIN MIGRAINE) 250-250-65 mg per tablet Take [...] x5 Coronary Artery Disease Brother aged 52, [place] Diabetes Brother Type II No Family History [...] swelling or pain on movement. Mouth/Throat: Lips: [place]. Mouth: Mucous membranes are moist. Pharynx: Oropharynx [...] of care. This note was generated using [employer] software. It may contain errors in wording, punctuation, or spelling. 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 - UA DIP, URINE (POC) - URINE CULTURE Pt advised to see PCP if symptoms persist or progress. Reviewed red flags with patient and when to seek care sooner. The patient indicates understanding of these issues and agrees with the plan. Sofia Delgado PA-C documented in this encounterGalion Hospital11-11-2022 Miscellaneous Notes* Telephone Encounter - Sangeeta Sim MD - 05/13/2022 4:23 PM EST Left message on AM that HIDA scan was normal. documented in this encounterGalion Hospital11-10-2022 History of Present illness Narrative* Delmy Lehman, RT(R) - 05/12/2022 8:00 AM EST RADIOLOGY SERVICE PROGRESS NOTE SERVICE DATE: 05/12/2022 SERVICE TIME: 08:10 AM PATIENT IDENTITY VERIFICATION COMPLETED USING TWO (2) STANDARD IDENTIFIERS: Name and Date of confirmed by patient verbally FALL SCREENING: Has the patient had 2 falls in the last year or 1 fall with injury or currently using an Ambulatory Assistive Device (Walker, Cane, Wheelchair, Crutches, etc.)? Yes, Patient High Riskfor Falls What interventions were put in place to prevent falls during this visit? Instructed Patient to Callfor Help if Needed, Offered Assistance with Transfers/Clothing, Instructed Patient to Remain Seated(Not on Exam Table) Until Exam, Increased Observations [...] creatinine assay has traceable calibration to isotope dilution- mass spectrometry. Refer to KDIGO guidelines for clinical interpretation. In patients with unstable renal function, e.g. those with acute kidney injury, the eGFRmay not accurately reflect actual GFR. eGFR- Date [...] information regarding radiation safety can be found usingthis link: [email or web address] SIGNATURE: BRIT Yepez PATIENT NAME: Sandie Ho DATE: May 12, 2022 TIME: 10:33 AM PAGER/CONTACT #: documented in this encounterGalion Hospital11-07-2022 History of Present illness Narrative* Ian Holley PA-C - 05/09/2022 8:46 AM EST Images from the original note were not included. Ortho Hip Follow Up Note Narrative Referring Provider: Kassi Campbell [address] [facility] [address] PCP: Sergio Bailey MD, MD IMPRESSION/PLAN: Impressions indicate: 81 year old s/p below surgeries. Orthopaedic Surgeries 12/10/2019 (2yr, 4mo) ARTHROPLASTY REPLACE JOINT TOTAL HIP (Left) Moshe Paz MD; Stu (ResLeopoldo Richardson - Posted 07/09/2014 (7yr) REVISION JOINT TOTAL HIP BOTH COMPONENTS; DEBRIDEMENT BONE W/ EPIDERMIS/DERMIS/ SUBCUTANEOUS TISSUE/ MUSCLE/FASCIA FIRST 20 SQ CM OR LESS (Right; Right) Moshe Paz MD; Robles Bateman; Nilesh Beck; Ian (Res)(Hist) Nicho - Posted 05/16/2011 (10yr) REVISION [...] therapy, safe use of ice, and prescribed diclofenacgel for her. 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 The patient states she has [...] & Hospitalizations - Last 180 days 05/04/22 Fantasma Arthur DO; Sergio Serge..., [id number] Hip pain ..., ED to Hosp- Admission (Discharged) (ADMIT) 05/02/22 [facility] History of total [...] 4 4 Planned treatment interventions Therapeutic exercise (21424);Neuromuscular re- education (27027);Manual therapy (75050);Therapeutic activities (86464);Self- fdc management (59971);Patient/Family/Caregiver Education;Body Mechanics Training Therapeutic exercise (76772);Neuromuscular re-education (42108);Manual therapy (55104);Therapeutic activities (81916);Self-fdc management (57993);Patient/Family/Caregiver Education;Gait Training (78878);Body Mechanics Training Therapeutic exercise (62163);Neuromuscular re-education (25385);Manual therapy (87114);Therapeutic activities (43980);Self-fdc management (44406);Patient/Family/Caregiver Education;Body Mechanics Training Plan for next visit Lumbar exam and core strengthening exercises, continue massage for headaches prn Continue work on neck and headaches as needed, lumbar exercises when pt is ready Continue to assess if treatment needs to be for LBP or neck on the day of session. If LBP core stabilzation and strengthening exercises. Work on balance as well. EXAM: POST OP HIP SKIN: Incision well healed. The Pt walks [...] proximal third of the IT band. Provider: Ian Holley PA-C Completed by: Ian Holley PA-C documented in this encounterGalion Hospital10-19-2022 Miscellaneous Notes* Telephone Encounter - David Mayer RN - 04/20/2022 7:00 PM EDT Pt called in about setting up Hida scan. Please call and help Pt. documented in this encounterGalion Hospital10-12-2022 Miscellaneous Notes* Telephone Encounter - Sangeeta Sim MD - 04/13/2022 4:48 PM EDT Told patient results of US RUQ - normal gallbladder. Patient states that she has done some research and feels that her symptoms are attributed to gallbladder disease. I have recommended that the patient obtain a HIDA scan and then I will call her with the results. She agrees to proceed. documented in this encounterGalion Hospital10-10-2022 History of Present illness Narrative* Jocy Barry RDMS - 04/11/2022 1:00 PM EDT Radiology Service Progress Note PATIENT NAME: Sandie Ho DATE OF SERVICE: April 11, 2022 TIME: 2:17 PM PATIENT IDENTITY VERIFICATION COMPLETED USING TWO (2) IDENTIFIERS: Name and Date of confirmedby patient verbally. FALL SCREENING: Has the patient [...] 11, 2022 2:17 PM documented in this encounterGalion Hospital09-16-2022 Miscellaneous Notes* Telephone Encounter - Sangeeta Sim MD - 03/18/2022 4:31 PM EDT Attempted to contact patient with results of upper and lower endoscopy. Voicemail identified my number only, therefore did not leave message due to HIPAA. documented in this encounterGalion Hospital08-22-2022 Miscellaneous Notes* Telephone Encounter - Deanna Steele - 02/21/2022 11:03 AM EDT Order did not drop in depot. Entered as optime * Addendum Note - Deanna Steele - 02/21/2022 11:02 AM EDTAddended by: DEANNA STEELE on: 02/21/2022 11:02 AM Modules accepted: Orders * Telephone Encounter - Deanna Steele - 02/21/2022 10:56 AM EDT 03/10 colon/egd lodi documented in this encounterGalion Hospital08-22-2022 Nurse Note* Mecca Gomez LPN - 02/21/2022 10:38 AM EDT REVIEW OF SYSTEMS: General: The patient notes fatigue, denies weight loss, denies weight gain, denies feeling hot, anddenies feelings of cold. Eyes: The patient denies [...] failure, other cardiac issues, denies claudication, denies coldfeet, denies peripheral arterial stent. Respiratory: The patient [...] patient's last Mammogram screening? 2015 Last Colonoscopy: 2015 Mecca Gomez LPN documented in this encounterGalion Hospital08-22-2022 History of Present illness Narrative* David Beltran PA-C - 02/21/2022 9:59 AM EDT HISTORY AND PHYSICAL Sandie Ho 1940 REFERRING PHYSICIAN: MD Gamaliel CHIEF COMPLAINT: Consult and Abdominal Pain HPI: The patient is a 81 year old female self-referred for endoscopy. Sandie notes a 1-year history of abdominal pain. She states she has noted bilateral pain under the ribcage, and associated symptoms of trouble evacuating stools. States pepto-bismol gives some symptom relief. Patient states she has seen her PCP and had labwork which she reports was unremarkable, records not currently availablefor review. Patient denies any blood in stools or black tarry stools. Denies family history of colon issues. Sandie has undergone prior endoscopy. PAST MEDICAL HISTORY [...] L knee revision PAST SURGICAL HISTORY OF 2015 R THR - Brandi PAST SURGICAL HISTORY [...] inhaler INHALE 1 PUFF BY MOUTH EVERY 4HOURS NEEDED AND 15 MINUTES PRIOR TO ACTIVITY ondansetron (ZOFRAN) 4 mg tablet Take 0.5-1 tablets by mouth every 8 hours as needed for Nausea/Vomiting. Bjxsujw-Npojfoxqcpkba-Kztycsco (EXCEDRIN MIGRAINE) 250-250-65 mg per tablet Take [...] x5 Coronary Artery Disease Brother aged 52, PR Diabetes Brother Type II No Family History Other Colon Cancer/Polyps REVIEW OF SYMPTOMS: The review of systems data was entered by the nurse and reviewed by me Nursing Notes: Mecca GomezTRACY 02/21/2022 10:41 AM Signed REVIEW OF SYSTEMS: General: The patient notes fatigue, denies weight loss, denies weight gain, denies feeling hot, anddenies feelings of cold. Eyes: The patient denies [...] failure, other cardiac issues, denies claudication, denies coldfeet, denies peripheral arterial stent. Respiratory: The patient [...] gout. When was patient's last Mammogram screening? 2014 Last Colonoscopy: 2016 Mecca Gomez LPN I have confirmed and edited as necessary, the PFSH and ROS obtained by others. David Beltran PA-C PHYSICAL EXAMINATION: General: The patient is 81 year old female, well nourished, well hydrated in no acute distress. Thepatient is oriented to time, place, and person. VITALS: Blood pressure 120/84, pulse 96, temperature 36.3 C (97.3 F), temperature source Temporal, resp. rate 14, height 167.6 cm (5' 6), weight 56.2 kg (124 lb), SpO2 95 %. Body mass index is 20.01kg/m . HEENT: Normal cephalic, ataumatic, pupils are equally round, sclera are anicteric, mucous membranesare moist, oropharynx is clear. Neck has no [...] patient was offered a surgery/procedure at a [facility]. I have counseled the patient regarding the [...] which included preparing to see the patient, [id number] patient care, completing clinical documentation, obtaining and/or reviewing separately obtained history, performing a medically appropriate examination, counseling and educating the pat ient/family/caregiver, and ordering medications, tests, or procedures. David Beltran PA-C * Sydney Klein LPN - 02/21/2022 9:48 AM EDT Patient checked in and was in lab waiting room. Called for her twice in that area but did not respond. Called and went to voicemail. Did respond when called for third time. Sydney Klein LPN documented in this encounterGalion Hospital05-18-2022 History of Present illness Narrative* Ian Holley PA-C - 11/17/2021 1:59 PM EDT SELF Ms. Ho is a 81 year [...] inhaler INHALE 1 PUFF BY MOUTH EVERY 4HOURS NEEDED AND 15 MINUTES PRIOR TO ACTIVITY pantoprazole DR (PROTONIX) 40 mg tablet Take 1 tablet by mouth daily before dinner. (Patient takingdifferently: Take 40 mg by mouth daily before dinner. Pt taking 20mg ) ondansetron (ZOFRAN) 4 mg tablet Take 0.5-1 tablets by mouth every 8 hours as needed for Nausea/Vomiting. Cholecalciferol, Vitamin D3, 2,000 unit cap Take 1 capsule by mouth once daily. CALCIUM CITRATE/VITAMIN D3 (CITRACAL + D ORAL) Take by mouth once daily. Yudvlsz-Uckoerfomyqua-Lcnphuxy (EXCEDRIN MIGRAINE) 250-250-65 mg per tablet Take [...] dysf, normal valves. COLONOSCOP W/ OR W/O [facility] SPEC Colonoscopy CYSTO.PANENDO Cystoscopy KNEE SCOPE,DIAGNOSTIC 06/2010 Arthroscopy, knee PAST SURGICAL HISTORY OF R THR x 3 PAST SURGICAL HISTORY OF Bilat TKR PAST SURGICAL HISTORY OF L Hip pinning (later removed) PAST SURGICAL HISTORY OF Heart Cath PAST SURGICAL HISTORY OF Dilation of left ureter PAST SURGICAL HISTORY OF 05/13 L knee revision PAST SURGICAL HISTORY OF 2014 R THR - [place] PAST SURGICAL HISTORY OF Right 07/2014 total hip replacement ORTHOPEDIC SPECIFIC PROBLEMS: As above FAMILY HISTORY: FAMILY HISTORY Problem Relation Age of Onset Cancer Father Coronary Artery Disease Father Early 70's CABG x5 Coronary Artery Disease Brother aged 52, [place] Diabetes Brother Type II No Family History [...] center, and I did ask her to speakwith the trainers there and let them know [...] agree with the plan. [facility] of Present illness Narrative* RT Christiano(R) - 11/17/2021 10:00 AM EDT Radiology Service Progress Note PATIENT NAME: Sandie Ho DATE OF SERVICE: November 17, 2021 TIME: 10:30 AM PATIENT IDENTITY VERIFICATION COMPLETED USING TWO (2) IDENTIFIERS: Name and Date of confirmedby patient verbally. FALL SCREENING: Has the patient [...] IV DATA: Not applicable SIGNED BY: RT Christiano(Chica) November 17, 2021 10:30 AM documented [facility] History of Present illness Narrative* Bridger Spencer, PT - 10/06/2021 2:27 PM EDT Episode Visit Count: 5 Therapist That Will Oversee The Plan Of Care: Bridger Spencer Start of Care Date: 09/29/21 Onset Date: 09/29/17 (4-5 Years Ago, gradual worsening) Plan of Care Certification Date: 08/24/21 Next Certification Due Date: 10/22/21 REHABILITATION AND SPORTS THERAPY PHYSICAL THERAPY TREATMENT NOTE ASSESSMENT: Sandie Ho tolerated the session with fatigue, expected [...] feel good. Wakes up with a headache andhas one throughout the day, but describes it as tolerable. Pt. wishes to treat the back today. 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 States she forgot to do her HEP [...] (Lt. Leg) dynamic knee valgus during forward stepups. Significant Q-Angle observed. TREATMENT: Therapeutic Exercise: 1: [...] the patient for the entire session on thisdate. All documentation was reviewed and agreed upon. Bridger Spencer PT documented [facility] History of Present illness Narrative* Bridger Spencer PT - 09/29/2021 2:26 PM EDT Episode Visit Count: 4 Therapist That Will Oversee The Plan Of Care: Bridger Spencer Onset Date: 08/24/18 Plan of Care Certification Date: 08/24/21 Next Certification Due Date: 10/22/21 Patient Identified by Name and Date of : Yes REHABILITATION AND SPORTS THERAPY PHYSICAL THERAPY TREATMENT NOTE ASSESSMENT: Sandie Ho stated her neck was feeling good [...] mobility, overall function, strength and tissue tenderness. Newgoals for the low back were added to [...] Planned: 4 Planned Treatment Interventions: Therapeutic exercise (15535);Neuromuscular re- education (50080);Manual therapy (24279);Therapeutic activities (61662);Self- fdc management (84276);Patient/Family/Caregiver Education;Body Mechanics Training PLAN FOR NEXT VISIT: [...] back pain. States said previosly he believes itis a muscular instability causing the pain. Pt. [...] the patient for the entire session on thisdate. All documentation was reviewed and agreed upon. Bridger Spencer PT documented in [facility] encounter[facility] History of Present illness Narrative* Bridger Spencer PT - 09/24/2021 12:52 PM EDT Episode Visit Count: 3 Therapist That Will Oversee The Plan Of Care: Bridger Spencer Start of Care Date: 08/24/21 Onset Date: 08/24/18 Plan of Care Certification Date: 08/24/21 Next Certification Due Date: 10/22/21 REHABILITATION AND SPORTS THERAPY PHYSICAL THERAPY PROGRESS REPORT PLAN OF CARE UPDATE: Assessment: Sandie Ho demonstrates no improvement in functional tasks due to lack of appointment compliance to this point from various medical complications. She has not met her goals, but goalsare unchanging at this point. Patient continues to [...] Patient to be seen for Therapeutic exercise (94969);Neuromuscular re-education (96921);Manual therapy (22514);Therapeutic activities (08560);Self-fdc management (09373);Patient/Family/CaregiverEducation;Gait Training (14555);Body Mechanics Training PLAN FOR NEXT VISIT: Continue [...] 39 Bridger Spencer PT documented in this [facility]07[facility] History of Present illness Narrative* Kiarra Jerez, RT(R) - 01/21/2021 11:30 AM EDT Radiology Service Progress Note PATIENT NAME: Sandie Ho DATE OF SERVICE: January 21, 2021 TIME: 11:36 AM PATIENT IDENTITY VERIFICATION COMPLETED USING TWO (2) IDENTIFIERS: Name and Date of confirmedby patient verbally. FALL SCREENING: Has the patient [...] IV DATA: Not applicable SIGNED BY: RT Shahla(R) January 21, 2021 11:36 AM [facility]* Diagnosis Cervical spondylosis without myelopathy- Primary Spinal stenosis of lumbar region, unspecified whether neurogenic claudication present Lumbar spondylosis Lumbosacral spondylosis without myelopathy documented in this encounter [facility] note* Diagnosis Cervical spondylosis without myelopathy- Primary Spinal stenosis of lumbar region, unspecified whether neurogenic claudication present Lumbar spondylosis Lumbosacral spondylosis without myelopathy documented in this encounter [facility] note* Diagnosis Pain- Primary Generalized pain documented in this encounter [facility] note* Diagnosis Trochanteric bursitis of both hips- Primary Enthesopathy of hip region History of total hip arthroplasty, 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 Vincent Hospital Work Phone: Evaluation note* Diagnosis Abdominal pain, unspecified abdominal location- Primary Change in bowel habits Other symptoms involving digestive system documented in this encounter [facility] note* Diagnosis Generalized abdominal pain- Primary Abdominal pain, generalized Change in bowel habits Other symptoms involving digestive system Abdominal pain, unspecified abdominal location Change in bowel habits Other symptoms involving digestive system [facility] Diagnosis RUQ abdominal pain Abdominal pain, right upper quadrant documented in this encounter [facility] note* Diagnosis RUQ abdominal pain- Primary Abdominal pain, right upper quadrant documented in this encounter [facility] note* Diagnosis Trochanteric bursitis of right hip- Primary Enthesopathy of hip region 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 documented in this encounter [facility] note* Diagnosis Urinary frequency- Primary documented in this encounter [facility] note* Diagnosis Pharyngitis, unspecified etiology- Primary [facility]* Diagnosis Onset Date Resolution Status Chest pain [facility] Work Phone: Evaluation note* Diagnosis Onset Date Resolution Status Chest pain resolved [facility] Work Phone: Evaluation note* Diagnosis Continuous severe abdominal pain- Primary Abdominal pain, unspecified site Ischemic colitis (HCC) Unspecified vascular insufficiency of intestine [facility]* Diagnosis RUQ abdominal pain Abdominal pain, right upper quadrant [facility]* Diagnosis Pain Generalized pain Status post total replacement of both hips [facility]* Diagnosis Onset Date Resolution Status Chronic ischemic colitis acu te Acute cystitis without hematuria acute Acute pain of right knee acu te Anemia requiring transfusions acute History of total knee arthroplasty acute Inability to ambulate due to right knee acute Knee effusion, right acute Positive fecal occult blood test acute [facility] Work Phone: Evaluation note* Diagnosis Onset Date Resolution Status Chronic ischemic colitis acu te Acute cystitis without hematuria acute Acute pain of right knee acu te History of total knee arthroplasty acute Inability to ambulate due to right knee acute Knee effusion, right acute Positive fecal occult blood test acute Anemia requiring transfusions resolved [facility] Work Phone: Evaluation note* Diagnosis Irritable bowel syndrome with constipation- Primary Irritable bowel syndrome Ischemic colitis (CMS/HCC) Peptic ulcer Peptic ulcer, unspecified site, unspecified as acute or chronic, without mention of hemorrhage, perforation, or obstruction documented in this encounter [facility] Work Phone: Evaluation note* Diagnosis Bladder pain- Primary Other symptoms involving urinary system Pelvic floor dysfunction in female OAB (overactive bladder) documented in this encounter [facility] Work Phone: Evaluation note* Diagnosis OAB (overactive bladder)- Primary documented in this encounter [facility] Work Phone: Evaluation note* Diagnosis OAB (overactive bladder)- Primary documented in this encounter [facility] Work Phone: [phone] note* Diagnosis Gastroesophageal reflux disease with esophagitis and hemorrhage- Primary 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 Esophageal dysphagia Dysphagia, pharyngoesophageal phase documented in this encounter [facility] Work Phone: Evaluation note* Diagnosis Recurrent UTI- Primary Urinary tract infection, site not specified OAB (overactive bladder) Hypertonicity of bladder [facility] Diagnosis Ischemic colitis (CMS/HCC)- Primary Gastroesophageal reflux disease without esophagitis Esophageal reflux 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 documented in this encounter [facility] Work Phone: [phone] note* Diagnosis Mariah esophagitis (Multi)- Primary Candidiasis of the esophagus Dysphagia, unspecified type documented in this encounter [facility] Work Phone: Evaluation note* Diagnosis Recurrent UTI- Primary Urinary tract infection, site not specified OAB (overactive bladder) Urge incontinence of urine Urge incontinence documented in this encounter [facility] Work Phone: Evaluation note* Diagnosis Overactive bladder- Primary Hypertonicity of bladder Urge incontinence of urine Urge incontinence documented in this encounter [facility] Work Phone: Evaluation note* Diagnosis Pre-op exam- Primary Preoperative examination, unspecified Other secondary osteoarthritis of left hip Left hip pain Pain in joint, pelvic region and thigh Chronic obstructive pulmonary disease, unspecified COPD type (HCC) Gastroesophageal reflux disease without esophagitis Esophageal reflux Severe episode of recurrent major depressive disorder, without psychotic features (HCC) Pre-operative examination- Primary Preoperative examination, unspecified Lumbar spondylosis Lumbosacral spondylosis without myelopathy Chronic obstructive pulmonary disease, unspecified COPD type (HCC) Ex-smoker Personal history of tobacco use, presenting hazards to [facility] Headache, unspecified headache type Gastroesophageal reflux disease without esophagitis Esophageal reflux Severe episode of recurrent major depressive disorder, without psychotic features (HCC) OAB (overactive bladder) 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- Primary History of left hip replacement [facility]* Diagnosis Pre-op exam- Primary Preoperative examination, unspecified Other secondary osteoarthritis of left hip Left hip pain Pain in joint, pelvic region and thigh Chronic obstructive pulmonary disease, unspecified COPD type (HCC) Gastroesophageal reflux disease without esophagitis Esophageal reflux Severe episode of recurrent major depressive disorder, without psychotic features (HCC) Pre-operative examination- Primary Preoperative examination, unspecified Lumbar spondylosis Lumbosacral spondylosis without myelopathy Chronic obstructive pulmonary disease, unspecified COPD type (HCC) Ex-smoker Personal history of tobacco use, presenting hazards to health Headache, unspecified headache type Gastroesophageal reflux disease without esophagitis Esophageal reflux Severe episode of recurrent major depressive disorder, without psychotic features (HCC) OAB (overactive bladder) Hypertonicity of bladder Strain of left quadriceps muscle, initial encounter- Primary Status post revision of total replacement of left knee Tearing of muscle [facility]* Diagnosis Pre-op exam- Primary Preoperative examination, unspecified Other secondary osteoarthritis of left hip Left hip pain Pain in joint, pelvic region and thigh Chronic obstructive pulmonary disease, unspecified COPD type (HCC) Gastroesophageal reflux disease without esophagitis Esophageal reflux Severe episode of recurrent major depressive disorder, without psychotic features (HCC) Pre-operative examination- Primary Preoperative examination, unspecified Lumbar spondylosis Lumbosacral spondylosis without myelopathy Chronic obstructive pulmonary disease, unspecified COPD type (HCC) Ex-smoker Personal history of tobacco use, presenting hazards to health Headache, unspecified headache type Gastroesophageal reflux disease without esophagitis Esophageal reflux Severe episode of recurrent major depressive disorder, without psychotic features (HCC) OAB (overactive bladder) 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 [facility]* Diagnosis Pre-op exam- Primary Preoperative examination, unspecified Other secondary osteoarthritis of left hip Left hip pain Pain in joint, pelvic region and thigh Chronic obstructive pulmonary disease, unspecified COPD type (HCC) Gastroesophageal reflux disease without esophagitis Esophageal reflux Severe episode of recurrent major depressive disorder, without psychotic features (HCC) Pre-operative examination- Primary Preoperative examination, unspecified Lumbar spondylosis Lumbosacral spondylosis without myelopathy Chronic obstructive pulmonary disease, unspecified COPD type (HCC) Ex-smoker Personal history of tobacco use, presenting hazards to health Headache, unspecified headache type Gastroesophageal reflux disease without esophagitis Esophageal reflux Severe episode of recurrent major depressive disorder, without psychotic features (HCC) OAB (overactive bladder) Hypertonicity of bladder UTI symptoms- Primary Other symptoms involving urinary system Acute cystitis with hematuria Acute cystitis documented in this encounter [facility] note* Diagnosis Pre-op exam- Primary Preoperative examination, unspecified Other secondary osteoarthritis of left hip Left hip pain Pain in joint, pelvic region and thigh Chronic obstructive pulmonary disease, unspecified COPD type (HCC) Gastroesophageal reflux disease without esophagitis Esophageal reflux Severe episode of recurrent major depressive disorder, without psychotic features (HCC) Pre-operative examination- Primary Preoperative examination, unspecified Lumbar spondylosis Lumbosacral spondylosis without myelopathy Chronic obstructive pulmonary disease, unspecified COPD type (HCC) Ex-smoker Personal history of tobacco use, presenting hazards to health Headache, unspecified headache type Gastroesophageal reflux disease without esophagitis Esophageal reflux Severe episode of recurrent major depressive disorder, without psychotic features (HCC) OAB (overactive bladder) Hypertonicity of bladder UTI symptoms- Primary Other symptoms involving urinary system Recurrent UTI (urinary tract infection) Urinary tract infection, site not specified [facility]* Diagnosis Pre-op exam- Primary Preoperative examination, unspecified Other secondary osteoarthritis of left hip Left hip pain Pain in joint, pelvic region and thigh Chronic obstructive pulmonary disease, unspecified COPD type (HCC) Gastroesophageal reflux disease without esophagitis Esophageal reflux Severe episode of recurrent major depressive disorder, without psychotic features (HCC) Pre-operative examination- Primary Preoperative examination, unspecified Lumbar spondylosis Lumbosacral spondylosis without myelopathy Chronic obstructive pulmonary disease, unspecified COPD type (HCC) Ex-smoker Personal history of tobacco use, presenting hazards to health Headache, unspecified headache type Gastroesophageal reflux disease without esophagitis Esophageal reflux Severe episode of recurrent major depressive disorder, without psychotic features (HCC) OAB (overactive bladder) Hypertonicity of bladder UTI symptoms- Primary Other symptoms involving urinary system Burning with urination Dysuria Recurrent UTI (urinary tract infection) Urinary tract infection, site not specified [facility] Additional Instructions Follow-up with your endoscopy in 1 week.[facility] Work Phone: Hospital Discharge instructions Additional Instructions Please follow-up with your pain management doctor tomorrow (call the office). I spoke with Dr. Mary durbin. You have been given an extra prescription for 3-day supply of [place] to take every 6 hours as needed for pain.[facility] Work Phone: Reason for referral (narrative)* Diagnostic Procedure Only (Routine) - Authorized Specialty Diagnoses / Procedures Referred By Contac t Referred To Contact XR IMAGING Diagnoses Pain Procedures XR HIP BILATERAL 5V PEL/AP/LAT EACH HIP RADEX HIPS BILATERAL WITH PELVIS MINIMUM 5 VIEWS Ian Holley PA-C [address] [place] [address] Xr Imaging Referral ID Status Reason Start Date Expiration Date Visits Requested Visits Authorized [id number] Authorized Auto-Generat ed Referral 11/10/2021 12/10/2022 [address] [facility] for referral (narrative)* Diagnostic Procedure Only (Routine) - Closed Specialty Diagnoses / Procedures Referred By Contac t Referred To Contact XR IMAGING Diagnoses Pain Procedures XR HIP BILATERAL 5V PEL/AP/LAT EACH HIP RADEX HIPS BILATERAL WITH PELVIS MINIMUM 5 VIEWS Ian Holley PA-C [address] [place] [address] Xr Imaging Referral ID Status Reason Start Date Expiration Date V isits Requested Visits Authorized [id number] Closed Auto-Generate d Referral 11/10/2021 12/10/2022 [address] [facility] for referral (narrative)* Outpatient Procedure (Routine) - Pending Review Specialty Diagnoses / Procedures Referred By Contac t Referred To Contact [facility] Diagnoses Abdominal pain, unspecified abdominal location Change in bowel habits Procedures COLONOSCOPY SCREENING COLONOSCOPY SCREENING COLONOSCOPY SCREENING COLONOSCOPY FLX DX W/COLLJ SPEC WHEN PFRMD David Beltran PA-C [address] [place] [id number] [facility] [address] [place] [address] Referral ID Status Reason Start Date Expiration Date Visits Requested Visits Authorized [id number] Pending Review Auto-Generat ed Referral 02/21/2022 02/21/2023 1 1 * Outpatient Procedure (Routine) - Pending Review Specialty Diagnoses / Procedures Referred By Contac t Referred To Contact [facility] Diagnoses Abdominal pain, unspecified abdominal location Change in bowel habits Procedures EGD DIAGNOSTIC EGD DIAGNOSTIC EGD DIAGNOSTIC ESOPHAGOGASTRODUODENOSC OPY TRANSORAL DIAGNOSTIC David Beltran PA-C [address] [place] [address] [facility] [address] [place] [address] Referral ID Status Reason Start Date Expiration Date Visits Requested Visits Authorized [id number] Pending Review Auto-Generat ed Referral 02/21/2022 02/21/2023 [address] [facility] for referral (narrative)* Diagnostic Procedure Only (Routine) - Closed Specialty Diagnoses / Procedures Referred By Contac t Referred To Contact US IMAGING Diagnoses RUQ abdominal pain Procedures US ABD RT UPPER QUADRANT US ABDOMINAL REAL TIME W/IMAGE LIMITED Sangeeta Sim MD [address] [place] [address] Us Imaging Referral ID Status Reason Start Date Expiration Date V isits Requested Visits Authorized [id number] Closed Auto-Generate d Referral 03/25/2022 04/24/20[address] [facility] for referral (narrative)* Diagnostic Procedure Only (Routine) - Pending Review Specialty Diagnoses / Procedures Referred By Contac t Referred To Contact MOLECULAR & FUNCTIONAL IMAGING Diagnoses RUQ abdominal pain Procedures NM HEPATOBILIARY W EF AND/OR RX HEPATOBIL SYST IMAG INC GB W/PHARMA INTERVENJ Sangeeta Sim MD [address] [place] [address] Molecular & Functional Imaging [address] [id number] Referral ID Status Reason Start Date Expiration Date Visits Requested Visits Authorized [id number] Pending Review Auto-Generat ed Referral 05/13/2023 [address] [facility] for referral (narrative)* Diagnostic Procedure Only (Routine) - Closed Specialty Diagnoses / Procedures Referred By Contac t Referred To Contact MOLECULAR & FUNCTIONAL IMAGING Diagnoses RUQ abdominal pain Procedures NM HEPATOBILIARY W EF AND/OR RX HEPATOBIL SYST IMAG INC GB W/PHARMA Sangeeta Lockhart MD [address] [facility] [place] [address] Molecular & Functional Imaging [address] [place] [address] Referral ID Status Reason Start Date Expiration Date V isits Requested Visits Authorized [id number] Closed Auto-Generate d Referral 04/13/2022 05/13/2023 1 1 [facility] Consultation (Routine) - Authorized Specialty Diagnoses / Procedures Referred By Contac t Referred To Contact Gastroenterology Diagnoses Irritable bowel syndrome with constipation Ischemic colitis (CMS/HCC) Peptic ulcer Procedures Follow Up In Gastroenterology Juju Hamm, [address] [facility], [address] [address] Referral ID Status Reason Start Date Expiration Date V isits Requested Visits Authorized [id number] Authorized 07/11/2023 07/10/2024 1 1 [facility] [facility] Phone: Reason for referral (narrative)* Diagnostic Procedure Only (Routine) - Authorized Specialty Diagnoses / Procedures Referred By Contac t Referred To Contact XR IMAGING Diagnoses 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 Procedures XR HIP GENERAL 3V PELV/AP/LAT LEFT RADEX HIP UNILATERAL WITH PELVIS 2-3 VIEWS Jeevan Funez PA-C [address] [place] [address] [place] [id number] Referral ID Status Reason Start Date Expiration Date Visits Requested Visits Authorized [id number] Authorized Auto-Generat ed Referral 4 07/31/2025 1 1 * Diagnostic Procedure Only (Routine) - Authorized Specialty Diagnoses / Procedures Referred By Sienna morales Referred To Contact XR IMAGING Diagnoses 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 Procedures XR KNEE POST OP 3V AP/LAT/MERCHANT LEFT RADIOLOGIC EXAMINATION KNEE 3 VIEWS Jeevan Funez PA-C [address] [place] [phone] [place] [address] Referral ID Status Reason Start Date Expiration Date Visits Requested Visits Authorized [id number] Authorized Auto-Generat ed Referral 4 07/31/2025 1 1 [facility] Diagnostic Procedure Only (Urgent) - New Request Specialty Diagnoses / Procedures Referred By Sienna morales Referred To Contact US IMAGING Diagnoses Status post revision of total replacement of left knee Procedures US KNEE/DISTAL THIGH LEFT US COMPL JOINT R-T W/IMAGE DOCUMENTATION Jeevan Funez PA-C [address] [place] [phone] [place] [address] Referral ID Status Reason Start Date Expiration Date Visits Requested Visits Authorized [id number] New Request Auto-Generat ed Referral 07/05/2024 08/04/2025 1 1 * Diagnostic Procedure Only (Routine) - New Request Specialty Diagnoses / Procedures Referred By Sienna morales Referred To Contact XR IMAGING Diagnoses Status post revision of total replacement of left knee Procedures XR PELVIS 1V AP RADIOLOGIC EXAMINATION PELVIS 1/2 VIEWS Jeevan Funez PA-C [address] [place] [address] [place] [address] Referral ID Status Reason Start Date Expiration Date Visits Requested Visits Authorized [id number] New Request Auto-Generat ed Referral 08/01/2025 1 1 * Diagnostic Procedure Only (Routine) - New Request Specialty Diagnoses / Procedures Referred By Sienna morales Referred To Contact XR IMAGING Diagnoses Status post revision of total replacement of left knee Procedures XR KNEE POST OP 3V AP/LAT/MERCHANT LEFT RADIOLOGIC EXAMINATION KNEE 3 VIEWS Jeevan Funez PA-C [address] [place] [phone] [place] [address] Referral ID Status Reason Start Date Expiration Date Visits Requested Visits Authorized [id number] New Request Auto-Generat ed Referral 08/01/2025 1 1 [facility] Diagnostic Procedure Only (Routine) - Closed Specialty Diagnoses / Procedures Referred By Sienna morales Referred To Contact XR IMAGING Diagnoses 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 Procedures XR HIP GENERAL 3V PELV/AP/LAT LEFT RADEX HIP UNILATERAL WITH PELVIS 2-3 VIEWS Jeevan Funez PA-C [address] [place] [phone] [place] [address] Referral ID Status Reason Start Date Expiration Date V isits Requested Visits Authorized [id number] Closed Auto-Generate d Referral 07/01/2024 07/31/2025 1 1 * Diagnostic Procedure Only (Routine) - Closed Specialty Diagnoses / Procedures Referred By Sienna morales Referred To Contact XR IMAGING Diagnoses 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 Procedures XR KNEE POST OP 3V AP/LAT/MERCHANT LEFT RADIOLOGIC EXAMINATION KNEE 3 VIEWS Jeevan Funez PA-C [address] [place] [address] [place] [address] Referral ID Status Reason Start Date Expiration Date V isits Requested Visits Authorized [id number] Closed Auto-Generate d Referral 07/01/2024 07/31/2025 [address] [facility] for referral (narrative)No reason for referral information availableWSt. [facility] Work Phone: Summary Purpose Family History No Family History Records Found Relationship Condition Age at Onset Recorded Date/T safia father Coronary artery disease Unknown brother Coronary artery disease Unknown Diabetes mellitus Unknown Relationship Condition Age at Onset Recorded Date/T safia father Coronary artery disease Unknown Malignant neoplasm of skin Unknown brother Diabetes mellitus Unknown Coronary artery disease Unknown mother Malignant neoplasm of skin Unknown Advance Directives No Advanced Directives Records FoundDocuments on File Type Date Recorded Patient Tire Wrapper Expl anation Advance Directive(s) 05/04/2022 2:06 PM Date Activated Date Inactivated Comments 05/04/2022 5:35 PM 05/06/2022 8:28 PM Question Answer Comments Full Code Order Discussed With: Patient Date Activated Date Inactivated Comments 12/14/2019 12:47 PM 08/25/2020 11:07 AM Documents on File Type Date Recorded Patient Tire Wrapper Expl anation Advance Directive(s) 01/20/2017 3:49 PM Latest Code Status on File Code Status Date Activated Date Inactivated Comments Full Code 12/14/2019 12:47 PM 08/25/2020 11:07 AM Documents on File Type Date Recorded Patient Tire Wrapper Expl anation Advance Directive(s) 12/22/2020 7:16 AM [...] Documents on File Type Date Recorded Patient Tire Wrapper Expl anation Advance Directive(s) 12/22/2020 7:16 AM [...] 6:08 AM Advance Directive(s) 01/20/2016 3:30 PM Advance Directive Response Recorded Date/ Time Living Will Yes May 01 7:40am Power of Respiratory Tech Yes May 01, 2021 7:40am Documents on File Type Date Recorded Patient Tire Wrapper Expl anation Advance Directive(s) 01/20/2017 3:49 PM Advance Directive Response Recorded Date/ Time Name of Medical Power of Respiratory Tech [facility] March 03, 2022 4:34pm Living Will Yes March 03 4:34pm Power of Respiratory Tech Yes March 03, 2022 4:34pm Advance Directive Response Recorded Date/ Time Name of Medical Power of Respiratory Tech [facility] March 03, 2022 4:34pm Name of Medical Power of Respiratory Tech [facility] March 07, 2022 12:58am Name of Medical Power of Respiratory Tech [facility] April 21, 2022 5:21pm Living Will Yes April 21 5:21pm Power of Respiratory Tech Yes April 21, 2022 5:21pm Documents on File Type Date Recorded Patient Tire Wrapper Expl anation Advance Directive(s) 05/04/2022 2:06 PM [...] Code 12/14/2019 12:47 PM 08/25/2020 11:07 AM Advance Directive Response Recorded Date/ Time Living Will Yes April 21 4:21pm Power of Respiratory Tech Yes April 21, 2022 4:21pm Name of Medical Power of Respiratory Tech [facility] April 21, 2022 4:21pm Advance Directive Response Recorded Date/ Time Living Will Yes April 21 4:21pm Power of Respiratory Tech Yes April 21, 2022 4:21pm Advance Directive Response Recorded Date/ Time Living Will Yes April 21 5:21pm Power of Respiratory Tech Yes April 21, 2022 5:21pm Advance Directive Response Recorded Date/ Time Name of Medical Power of Respiratory Tech ? January 25, 2023 3:41pm Living Will Yes January 25, 2023 3:41pm Power of Respiratory Tech Yes January 25 3:41pm Advance Directive Response Recorded Date/ Time Name of Medical Power of Respiratory Tech [place] January 25, 2023 11:19pm Living Will No February 13 11:22am Power of Respiratory Tech No February 13, 11:22am Latest Code Status on File Code Status [...] Code 12/14/2019 12:47 PM 08/25/2020 11:07 AM Advance Directive Response Recorded Date/ Time Name of Medical Power of Respiratory Tech [place] February 14, 2023 4:54pm Living Will Yes February 14 4:54pm Power of Respiratory Tech Yes February 14 023 4:54pm Name of Medical Power of Respiratory Tech Ro January 25, 2023 10:19pm Advance Directive Response Recorded Date/ Time Name of Medical Power of Respiratory Tech Ro Wilkins June 22, 2023 12:57am Living Will No June 28 8:52pm Power of Respiratory Tech No June 28, 2023 8:52pm Advance Directive Response Recorded Date/ Time Living Will No June 28 9:52pm Power of Respiratory Tech No June 28, 2023 9:52pm Documents on File Type Date Recorded 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 Yes June 21, 2024 11:22am Name of Medical Power of Respiratory Tech DAUGHTER June 21, 2024 11:22am Advance Directives on File Yes Decem 2023 11:20am Living Will Yes June 10 11:20am Do you have a Healthcare Pow er of Respiratory Tech? Yes June 10, 2024 11:20am Name of Medical Power of Respiratory Tech Bladimir bhatia June 10, 2024 11:20am Advance Directives Yes June 10, 2024 11:20am Living Will Yes June 17 12:07am Do you have a Healthcare Pow er of Respiratory Tech? Yes June 17, 2024 12:07am Name of Medical Power of Respiratory Tech daughter June 17, 2024 12:07am Living Will Yes June 17 5:34pm Do you have a Healthcare Pow er of Respiratory Tech? Yes June 17, 2024 5:34pm Name of Medical Power of Respiratory Tech MARLEEN June 17, 2024 5:34pm Living Will Yes June 20 1:00pm Do you have a Healthcare Pow er of Respiratory Tech? Yes June 20, 2024 1:00pm Name of Medical Power of Respiratory Tech nkechi [employer] June 20, 2024 1:00pm Advance Directive Response Recorded Date/ Time Advance Directives Yes October 14 9:13am Advance Directive Response Recorded Date/ Time Advance Directives Yes June 10, 2024 11:20am Chief Complaint and Reason for Visit Chief Complaint Admit Date 3 M FU September 20, 2024 3:2 9pm DYSPNEA November 06, 2024 6:25pm FU MEDS November 13, 2024 9:42a m Reason for Visit Admit Date Essential (primary) hypertension September 012024 3:29pm LV dysfunction September 20, 2024 3:2 9pm Stenosis of right subclavian artery David h 2024 3:29pm Dyspnea September 20, 2024 3:2 9pm Chief Complaint EORDERS- constipatio n Chief Complaint EORDERS- constipatio n CP Chief Complaint EORDERS- constipatio n CP HEADACHE BACK PAIN Chief Complaint BACK PAIN Chief Complaint UTI, DYSURIA Chief Complaint UTI, DYSURIA DYSURIA UTI Chief Complaint UTI, DYSURIA DYSURIA UTI CHEST PAIN Reason for Visit Chest pain Chief Complaint UTI, DYSURIA DYSURIA UTI CHEST PAIN CHEST PAIN CHEST PAIN abd pain Reason for Visit Chest pain Chief Complaint CHEST PAIN CHEST PAIN CHEST PAIN abd pain COMPLAINT Reason for Visit Chest pain Chief Complaint CONSULT-CHRONIC ISCH EMIC COLITIS SYMPTOMATIC ANEMIA WITH HEMOGLOBIN OF 6.7 AND SYMPTOMATIC ANEMIA WITH HEMOGLOBIN OF 6.7 AND SYMPTOMATIC ANEMIA WITH HEMOGLOBIN OF 6.7 AND SYMPTOMATIC ANEMIA WITH HEMOGLOBIN OF 6.7 AND SYMPTOMATIC ANEMIA WITH HEMOGLOBIN OF 6.7 AND SYMPTOMATIC ANEMIA WITH HEMOGLOBIN OF 6.7 AND SYMPTOMATIC ANEMIA WITH HEMOGLOBIN OF 6.7 AND SYMPTOMATIC ANEMIA WITH HEMOGLOBIN OF 6.7 AND SYMPTOMATIC ANEMIA WITH HEMOGLOBIN OF 6.7 AND R Knee Pain Reason for Visit Chronic ischemic col itis Acute cystitis without hematuria Acute pain of right knee Anemia requiring transfusions History of total knee arthroplasty Inability to ambulate due to right knee Knee effusion, right Positive fecal occult blood test Chief Complaint CONSULT-CHRONIC ISCH EMIC COLITIS SYMPTOMATIC ANEMIA WITH HEMOGLOBIN OF 6.7 AND SYMPTOMATIC ANEMIA WITH HEMOGLOBIN OF 6.7 AND SYMPTOMATIC ANEMIA WITH HEMOGLOBIN OF 6.7 AND SYMPTOMATIC ANEMIA WITH HEMOGLOBIN OF 6.7 AND SYMPTOMATIC ANEMIA WITH HEMOGLOBIN OF 6.7 AND SYMPTOMATIC ANEMIA WITH HEMOGLOBIN OF 6.7 AND SYMPTOMATIC ANEMIA WITH HEMOGLOBIN OF 6.7 AND SYMPTOMATIC ANEMIA WITH HEMOGLOBIN OF 6.7 AND SYMPTOMATIC ANEMIA WITH HEMOGLOBIN OF 6.7 AND R Knee Pain STAT RIGHT LOWER EXT PAIN M79.661 Reason for Visit Chronic ischemic col itis Acute cystitis without hematuria Acute pain of right knee History of total knee arthroplasty Inability to ambulate due to right knee Knee effusion, right Positive fecal occult blood test Anemia requiring transfusions Chief Complaint R Knee Pain STAT RIGHT LOWER EXT PAIN M79.661 Chief Complaint Admit Date CHEST PAIN June 10, 2024 9 :41am lower extremity injury June 16 11:01pm FALL June 17, 2024 3:20pm FALL June 17, 2024 3:38pm FALL June 18, 2024 12:07pm FALL June 19, 2024 12:00pm LEFT KNEE, NON SURGICAL June 19, 2 024 8:30pm [facility] 06/12June 28, 2024 12:48pm LEFT KNEE, NON SURGICAL June 29, 2 024 9:34am LEFT KNEE, NON SURGICAL July 01, 2 024 5:42pm RETENTION OF URINE July 08, 2024 2: 35pm 3 M FU September 20, 2024 3:2 9pm Reason for Visit Admit Date Left knee pain June 17, 2024 3:20pm Rupture of left quadriceps tendon Decemb er 2023 3:20pm Acute cystitis June 19, 2024 8:30pm Debility June 19, 2024 8:30pm Effusion, left knee June 19, 2024 8:30pm Gastric ulcer June 19, 2024 8:30pm Multiple falls June 19, 2024 8:30pm Esophageal dysmotility June 19 8:30pm Urinary retention June 19, 2024 8:30pm Obstipation June 19, 2024 8:30pm CAD (coronary artery disease) June 022023 8:30pm Chronic headache June 19, 2024 8:30pm COPD (chronic obstructive pulmonary dise ase) June 19, 2024 8:30pm Depression June 19, 2024 8:30pm GERD (gastroesophageal reflux disease) D ecember 2023 8:30pm History of total left knee replacement D ecember 2023 8:30pm Hyperlipidemia June 19, 2024 8:30pm Left knee pain June 19, 2024 8:30pm Neuropathic pain June 19, 2024 8:30pm Gastric ulcer June 24, 2024 9:15am Duodenal ulcer June 24, 2024 9:15am Anemia June 28, 2024 12:48pm Essential (primary) hypertension Decembe r 2023 12:48pm LV dysfunction June 28, 2024 12:48pm Stenosis of right subclavian artery Dece mber 2023 12:48pm Essential (primary) hypertension September 012024 3:29pm LV dysfunction September 20, 2024 3:2 9pm Stenosis of right subclavian artery David h 2024 3:29pm Dyspnea September 20, 2024 3:2 9pm Chief Complaint Admit Date 3 M FU September 20, 2024 3:2 9pm DYSPNEA November 06, 2024 6:25pm Reason for Visit Admit Date Essential (primary) hypertension September 012024 3:29pm LV dysfunction September 20, 2024 3:2 9pm Stenosis of right subclavian artery David h 2024 3:29pm Dyspnea September 20, 2024 3:2 9pm Anemia November 13, 2024 9:42a m Gastric ulcer November 13, 2024 9:42a m Duodenal ulcer November 13, 2024 9:42a m Esophageal dysmotility November 13, 2024 9: 42am Reason for Referral Specialty Diagnoses / Procedures Referred By Sienna morales Referred To Contact [facility] Diagnoses Trochanteric bursitis of right hip Procedures CONSULT TO PHYSICAL THERAPY PHYSICAL THERAPY EVALUATION HIGH COMPLEX 45 MINS Ian Holley PA-C [address] [place] [address] [facility] [place] [address] [place] [address] Referral ID Status Reason Start Date Expiration Date V isits Requested Visits Authorized [id number] Closed Auto-Generate d Referral 05/13/2022 05/13/2022 1 1 Specialty Diagnoses / Procedures Referred By Sienna morales Referred To Contact Diagnoses OAB (overactive bladder) Tia Anglin MD [facility] [address] [facility], [facility] [address] [place] [address] Referral ID Status Reason Start Date Expiration Date V isits Requested Visits Authorized [id number] Pending Review 08/18/2023 08/17/2024 1 1 Specialty Diagnoses / Procedures Referred By Contac t Referred To Contact Diagnoses OAB (overactive bladder) Procedures Cystoscopy with Biospy Injection Tia Anglin MD MPH [address] [facility], [facility] [address] [place] [address] Referral ID Status Reason Start Date Expiration Date V isits Requested Visits Authorized [id number] Pending Review 08/18/2023 08/17/2024 1 1 Referral ID Status Reason Start Date Expiration Date V isits Requested Visits Authorized [id number] Pending Review 08/18/2023 08/17/2024 1 1 Specialty Diagnoses / Procedures Referred By Contac t Referred To Contact Radiology Diagnoses Ischemic colitis (CMS/HCC) Procedures CT angio abdomen w and or wo IV IV contrast Juju Hamm DO [address] [place] [id number] Referral ID Status Reason Start Date Expiration Date Visits Requested Visits Authorized [id number] Pending Review Perform Procedure 3 06/18/2024 1 1 Specialty Diagnoses / Procedures Referred By Contact Referred To Contact Gastroenterology Diagnoses Dysphagia, unspecified type Procedures Esophagogastroduodenoscopy (EGD) NC ESOPHAGOGASTRODUODENOSCOPY TRANSORAL DIAGNOSTIC NC EGD TRANSORAL BIOPSY SINGLE/MULTIPLE Juju Hamm DO [address] [place] [address] Referral ID Status Reason Start Date Expiration Date V isits Requested Visits Authorized [id number] Authorized 12/14/2023 12/13/2024 1 1 Specialty Diagnoses / Procedures Referred By Contac t Referred To Contact Junior Ly MD [address] [place] [address] Referral ID Status Reason Start Date Expiration Date V isits Requested Visits Authorized [id number] Pending Review 12/25/2023 12/24/2024 1 1 Specialty Diagnoses / Procedures Referred By Sienna t Referred To Contact Diagnoses Urge incontinence of urine Radha Calderon MD [address] [address] Referral ID Status Reason Start Date Expiration Date V isits Requested Visits Authorized [id number] Pending Review 03/28/2024 03/28/2025 1 1 Referral ID Status Reason Start Date Expiration Date V isits Requested Visits Authorized [id number] Pending Review 03/28/2024 03/28/2025 1 1 Health Concerns Infection Onset Date Last Indicated Resolved Time COVID-19 Rule-Out 05/04/2022 05/04/2022 05/04/2022 10:55 PM EDT Additional Source Comments INFORMATION SOURCE (unrecogn ized section and content) DATE CREATED AUTHOR 05/15/2018 [facility] DATE CREATED AUTHOR AUTHOR'S ORGANIZ ATION 06/04/2020 [facility] DATE CREATED AUTHOR AUTHOR'S ORGANIZ ATION 12/22/2020 [facility] DATE CREATED AUTHOR AUTHOR'S ORGANIZ ATION 04/16/2023 [facility] DATE CREATED AUTHOR AUTHOR'S ORGANIZ ATION 09/01/2023 [facility] DATE CREATED AUTHOR AUTHOR'S ORGANIZ ATION 12/15/2023 [facility] DATE CREATED AUTHOR AUTHOR'S ORGANIZ ATION 02/24/2024 [facility] DATE CREATED AUTHOR AUTHOR'S ORGANIZ ATION 04/09/2024 [facility] DATE CREATED AUTHOR AUTHOR'S ORGANIZ ATION 07/12/2024 [facility] DATE CREATED AUTHOR AUTHOR'S ORGANIZ ATION 07/12/2024 [facility] DATE CREATED AUTHOR AUTHOR'S ORGANIZ ATION 11/18/2024 [facility] Source Comments (unrecognize d section and content) In the event this informatio n is protected by the Federal Confidentiality of Alcohol and Drug Abuse Patient Records regulations: The Federal rules restrict any use of the information to criminally investigate or prosecute any alcohol or drug abuse patient.[facility] the event this information is protected by the Federal Confidentiality of Alcohol and Drug Abuse Patient Records regulations: The Federal rules restrict any use of the information to criminally investigate or prosecute any alcohol or drug abuse patient.[facility] Hospital[facility] the event this information is protected by the Federal Confidentiality of Alcohol and Drug Abuse Patient Records regulations: The Federal rules restrict any use of the information to criminally investigate or prosecute any alcohol or drug abuse patient.[facility] the event this information is protected by the Federal Confidentiality of Alcohol and Drug Abuse Patient Records regulations: The Federal rules restrict any use of the information to criminally investigate or prosecute any alcohol or drug abuse patient.[facility] HospitalIn the event this information is protected by the Federal Confidentiality of Alcohol and Drug Abuse Patient Records regulations: The Federal rules restrict any use of the information to criminally investigate or prosecute any alcohol or drug abuse patient.[facility] the event this information is protected by the Federal Confidentiality of Alcohol and Drug Abuse Patient Records regulations: The Federal rules restrict any use of the information to criminally investigate or prosecute any alcohol or drug abuse patient.[facility] HospitalIn the event this information is protected by the Federal Confidentiality of Alcohol and Drug Abuse Patient Records regulations: The Federal rules restrict any use of the information to criminally investigate or prosecute any alcohol or drug abuse patient.[facility] Hospital[facility] the event this information is protected by the Federal Confidentiality of Alcohol and Drug Abuse Patient Records regulations: The Federal rules restrict any use of the information to criminally investigate or prosecute any alcohol or drug abuse patient.[facility] Hospital[facility] the event this information is protected by the Federal Confidentiality of Alcohol and Drug Abuse Patient Records regulations: The Federal rules restrict any use of the information to criminally investigate or prosecute any alcohol or drug abuse patient.[facility] the event this information is protected by the Federal Confidentiality of Alcohol and Drug Abuse Patient Records regulations: The Federal rules restrict any use of the information to criminally investigate or prosecute any alcohol or drug abuse patient.[facility] HospitalIn the event this information is protected by the Federal Confidentiality of Alcohol and Drug Abuse Patient Records regulations: The Federal rules restrict any use of the information to criminally investigate or prosecute any alcohol or drug abuse patient.[facility] HospitalIn the event this information is protected by the Federal Confidentiality of Alcohol and Drug Abuse Patient Records regulations: The Federal rules restrict any use of the information to criminally investigate or prosecute any alcohol or drug abuse patient.[facility] HospitalIn the event this information is protected by the Federal Confidentiality of Alcohol and Drug Abuse Patient Records regulations: The Federal rules restrict any use of the information to criminally investigate or prosecute any alcohol or drug abuse patient.[facility] HospitalIn the event this information is protected by the Federal Confidentiality of Alcohol and Drug Abuse Patient Records regulations: The Federal rules restrict any use of the information to criminally investigate or prosecute any alcohol or drug abuse patient.[facility] HospitalIn the event this information is protected by the Federal Confidentiality of Alcohol and Drug Abuse Patient Records regulations: The Federal rules restrict any use of the information to criminally investigate or prosecute any alcohol or drug abuse patient.[facility] HospitalIn the event this information is protected by the Federal Confidentiality of Alcohol and Drug Abuse Patient Records regulations: The Federal rules restrict any use of the information to criminally investigate or prosecute any alcohol or drug abuse patient.[facility] HospitalIn the event this information is protected by the Federal Confidentiality of Alcohol and Drug Abuse Patient Records regulations: The Federal rules restrict any use of the information to criminally investigate or prosecute any alcohol or drug abuse patient.[facility] HospitalIn the event this information is protected by the Federal Confidentiality of Alcohol and Drug Abuse Patient Records regulations: The Federal rules restrict any use of the information to criminally investigate or prosecute any alcohol or drug abuse patient.[facility] HospitalIn the event this information is protected by the Federal Confidentiality of Alcohol and Drug Abuse Patient Records regulations: The Federal rules restrict any use of the information to criminally investigate or prosecute any alcohol or drug abuse patient.[facility] HospitalIn the event this information is protected by the Federal Confidentiality of Alcohol and Drug Abuse Patient Records regulations: The Federal rules restrict any use of the information to criminally investigate or prosecute any alcohol or drug abuse patient.[facility] HospitalIn the event this information is protected by the Federal Confidentiality of Alcohol and Drug Abuse Patient Records regulations: The Federal rules restrict any use of the information to criminally investigate or prosecute any alcohol or drug abuse patient.[facility] HospitalIn the event this information is protected by the Federal Confidentiality of Alcohol and Drug Abuse Patient Records regulations: The Federal rules restrict any use of the information to criminally investigate or prosecute any alcohol or drug abuse patient.[facility] HospitalIn the event this information is protected by the Federal Confidentiality of Alcohol and Drug Abuse Patient Records regulations: The Federal rules restrict any use of the information to criminally investigate or prosecute any alcohol or drug abuse patient.[facility] HospitalIn the event this information is protected by the Federal Confidentiality of Alcohol and Drug Abuse Patient Records regulations: The Federal rules restrict any use of the information to criminally investigate or prosecute any alcohol or drug abuse patient.[facility] HospitalIn the event this information is protected by the Federal Confidentiality of Alcohol and Drug Abuse Patient Records regulations: The Federal rules restrict any use of the information to criminally investigate or prosecute any alcohol or drug abuse patient.[facility] HospitalIn the event this information is protected by the Federal Confidentiality of Alcohol and Drug Abuse Patient Records regulations: The Federal rules restrict any use of the information to criminally investigate or prosecute any alcohol or drug abuse patient.[facility] HospitalIn the event this information is protected by the Federal Confidentiality of Alcohol and Drug Abuse Patient Records regulations: The Federal rules restrict any use of the information to criminally investigate or prosecute any alcohol or drug abuse patient.[facility] HospitalIn the event this information is protected by the Federal Confidentiality of Alcohol and Drug Abuse Patient Records regulations: The Federal rules restrict any use of the information to criminally investigate or prosecute any alcohol or drug abuse patient.[facility] HospitalIn the event this information is protected by the Federal Confidentiality of Alcohol and Drug Abuse Patient Records regulations: The Federal rules restrict any use of the information to criminally investigate or prosecute any alcohol or drug abuse patient.[facility] HospitalIn the event this information is protected by the Federal Confidentiality of Alcohol and Drug Abuse Patient Records regulations: The Federal rules restrict any use of the information to criminally investigate or prosecute any alcohol or drug abuse patient.[facility] HospitalIn the event this information is protected by the Federal Confidentiality of Alcohol and Drug Abuse Patient Records regulations: The Federal rules restrict any use of the information to criminally investigate or prosecute any alcohol or drug abuse patient.[facility] HospitalIn the event this information is protected by the Federal Confidentiality of Alcohol and Drug Abuse Patient Records regulations: The Federal rules restrict any use of the information to criminally investigate or prosecute any alcohol or drug abuse patient.[facility] HospitalIn the event this information is protected by the Federal Confidentiality of Alcohol and Drug Abuse Patient Records regulations: The Federal rules restrict any use of the information to criminally investigate or prosecute any alcohol or drug abuse patient.[facility] HospitalIn the event this information is protected by the Federal Confidentiality of Alcohol and Drug Abuse Patient Records regulations: The Federal rules restrict any use of the information to criminally investigate or prosecute any alcohol or drug abuse patient.[facility] HospitalIn the event this information is protected by the Federal Confidentiality of Alcohol and Drug Abuse Patient Records regulations: The Federal rules restrict any use of the information to criminally investigate or prosecute any alcohol or drug abuse patient.[facility] HospitalIn the event this information is protected by the Federal Confidentiality of Alcohol and Drug Abuse Patient Records regulations: The Federal rules restrict any use of the information to criminally investigate or prosecute any alcohol or drug abuse patient.[facility] Reason for Visit (unrecogniz ed section and content) Reason Comments Physical Therapy Specialty Diagnoses / Procedures Referred By Contac t Referred To Contact Physical Therapy / PHYSICAL THERAPY Diagnoses 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)also patient has an order for L hip pain M25.552 Procedures NEW RS PT SPINE Joyce De La Paz [address] [place] [address] Bridger Spencer, PT [address] [place] [address] Referral ID Status Reason Start Date Expiration Date V isits Requested Visits Authorized [id number] Authorized 07/03/2021 07/02/2022 20 20 Reason Comments PT Progress Note Reason Comments New Reason Comments Radio Gen A21 Specialty Diagnoses / Procedures Referred By Contac t Referred To Contact XR IMAGING Diagnoses Pain Procedures XR HIP BILATERAL 5V PEL/AP/LAT EACH HIP RADEX HIPS BILATERAL WITH PELVIS MINIMUM 5 VIEWS Ian Holley PA-C [address] [place] [address] Xr Imaging Referral ID Status Reason Start Date Expiration Date V isits Requested Visits Authorized [id number] Closed Auto-Generate d Referral 11/10/2021 12/10/2022 1 1 Reason Comments 03/10 colon/egd lodi Reason Comments Consult Abdominal Pain Reason Comments Results Reason Comments Radiology US Specialty Diagnoses / Procedures Referred By Contac t Referred To Contact US IMAGING Diagnoses RUQ abdominal pain Procedures US ABD RT UPPER QUADRANT US ABDOMINAL REAL TIME W/IMAGE LIMITED Sangeeta Sim MD [address] [place] [address] Us Imaging Referral ID Status Reason Start Date Expiration Date V isits Requested Visits Authorized [id number] Closed Auto-Generate d Referral 03/25/2022 04/24/2023 1 [...] INTERVENJ Sangeeta Sim MD [address] [place] [address] Molecular & Functional Imaging [address] [place] [address] Referral ID Status Reason Start Date Expiration Date V isits Requested Visits Authorized [id number] Closed Auto-Generate d Referral 04/13/2022 05/13/2023 1 1 Reason Comments Radio Gen RMP Reason Comments Follow-up Patient was in [facility] for a GI bleed in June 2023. 6.7 Hemoglobin. Initially went for knee issues, after having blood work they admitted for low Hemoglobin. Got 2 units of blood. Reason Comments urinary incontinece Pt reports urgency f or 2 yrs Specialty Diagnoses / Procedures Referred By Contac t Referred To Contact Urology Diagnoses Pelvic floor dysfunction in female Juju Hamm, [address] [facility] [place] [address] Referral ID Status Reason Start Date Expiration Date Visits Requested Visits Authorized [id number] Authorized Specialty Services Required 07/05/2023 07/04/2024 1 1 Reason Comments cysto/botox Specialty Diagnoses / Procedures Referred By Sienna morales Referred To Contact Diagnoses OAB (overactive bladder) Tia Anglin MD MPH [address] [facility], [address] [place] [address] Referral ID Status Reason Start Date Expiration Date V isits Requested Visits Authorized [id number] Pending Review 08/18/2023 08/17/2024 1 1 Reason Comments PVR s/p botox Reason Comments Follow-up Visit on 07/11 transit ioned from sucralfate to slippery elm bark. Daughter states patient did not take this right and now symptoms of dysphagia and feeling of food getting stuck are back. Pt states she gets choked very easily. Diarrhea On occasion will hav e the sudden urge to have BM but will not make it to the bathroom in time, Wears depends for this reason. Patient denies any black stools. Reason Comments New Patient Recurrent UTI's Specialty Diagnoses / Procedures Referred By Sienna morales Referred To Contact Urology Diagnoses Recurrent UTI Franc Quezada MD [address] [facility] [address] [place] [address] Sara Mclaughlin MD [address] [facility] [address]nd [place] [address] Referral ID Status Reason Start Date Expiration Date V isits Requested Visits Authorized [id number] New Request 04/11/2024 05/06/2025 1 1 Reason Comments ischemic colitis In January had rectal bleeding and abdominal pain, poor appetite. Was seen at the [place] [facility] and transferred to [facility] and admitted 4 days diagnosed with ischemic colitis. EGD and colonoscopy on 02/16 no source of GI bleed revealed. ? Barretts esophagus on EGD Specialty Diagnoses / Procedures Referred By Contact Referred To Contact Gastroenterology Diagnoses Dysphagia, unspecified type Procedures Esophagogastroduodenoscopy (EGD) NC ESOPHAGOGASTRODUODENOSCOPY TRANSORAL DIAGNOSTIC NC EGD TRANSORAL BIOPSY SINGLE/MULTIPLE Juju Hamm, DO [address] [facility], [address] [place] [address] Referral ID Status Reason Start Date Expiration Date V isits Requested Visits Authorized [id number] Authorized 12/14/2023 12/13/2024 1 1 Reason Comments overactive bladder Reason Comments Cystoscopy with Botox injections Specialty Diagnoses / Procedures Referred By Contac t Referred To Contact Diagnoses Urge incontinence of urine Radha Calderon MD [id number] [place] [address] Referral ID Status Reason Start Date Expiration Date V isits Requested Visits Authorized [id number] Pending Review 03/28/2024 03/28/2025 1 1 Reason Comments Knee Pain Popping feeling New Popping feeling Reason Comments Radio Gen A21 Specialty Diagnoses / Procedures Referred By Contac t Referred To Contact XR IMAGING Diagnoses 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 Patient states that she has a history UTIs. She was in the hospital last month due to a UTI among other things.Patient took AZO. Reason Comments UTI Frequency, burning x 2 days Reason Onset Date Comments Results 08/19/2024 Reason Comments UTI Burning with frequen cy. Never went away since 07/24/24 Reason Onset Date Comments Urine Culture Results 08/30/2024 Care Teams (unrecognized sec tion and content) Qualitative Executive Researcher Relationship Specialty Start Date End Date Sergio Bailey MD [address] [place] [address] PCP - General Family Practice 05/08/20 Moshe Paz MD [address] [id number] Home Care Physician Orthopedics 12/11/19 Moshe Paz MD [address] [place] [address] Referring Orthopedics 12/11/19 Rico Kelly, PT [address] [facility] [place] [id number] Typing Bookkeeper Post Acute Care 12/13/19 Qualitative Executive Researcher Relationship Specialty Start Date End Date Sergio Bailey MD [address], [place] [id number] PCP - General Family Practice 05/08/20 Moshe Paz MD [address] [place] [address] Home Care Physician Orthopedics 12/11/19 Moshe Paz MD [address] [place] [address] Referring Orthopedics 12/11/19 Rico Kelly, PT [address] [place] [address] Typing Bookkeeper Post Acute Care 12/13/19 Qualitative Executive Researcher Relationship Specialty Start Date End Date Sergio Bailey MD [address] [place] [address] PCP - General Family Practice 05/08/20 Moshe Paz MD [address] [place] [address] Home Care Physician Orthopedics 12/11/19 Moshe Paz MD [address] [place] [address] Referring Orthopedics 12/11/19 Rico Kelly, PT [address] [place] [address] Typing Bookkeeper Post Acute Care 12/13/19 Qualitative Executive Researcher Relationship Specialty Start Date End Date Sergio Bailey MD [address] [place] [address] PCP - General Family Practice 05/08/20 Moshe Paz MD [address] [place] [address] Home Care Physician Orthopedics 12/11/19 Moshe Paz MD [address] [place] [address] Referring Orthopedics 12/11/19 Rico Kelly, PT [address] [place] [address] Typing Bookkeeper Post Acute Care 12/13/19 Qualitative Executive Researcher Relationship Specialty Start Date End Date Sergio Bailey MD [address] [place] [address] PCP - General Family Practice 05/08/20 Moshe Paz MD [address] [place] [address] Home Care Physician Orthopedics 12/11/19 Moshe Paz MD [address] [place] [address] Referring Orthopedics 12/11/19 Rico Kelly, PT [address] [place] [address] Typing Bookkeeper Post Acute Care 12/13/19 Qualitative Executive Researcher Relationship Specialty Start Date End Date Sergio Bailey MD [address] [place] [place], [place] [id number] PCP - General Family Practice 05/08/20 Moshe Paz MD [address] [facility] [place] [address] Home Care Physician Orthopedics 12/11/19 Moshe Paz MD [address] [facility] [place] [address] Referring Orthopedics 12/11/19 Rico Kelly, PT [address] [place] [address] Typing Bookkeeper Post Acute Care 12/13/19 Qualitative Executive Researcher Relationship Specialty Start Date End Date Sergio Bailey MD [address], [place] [id number] PCP - General Family Practice 05/08/20 Moshe Paz MD [address] [place] [address] Home Care Physician Orthopedics 12/11/19 Moshe Paz MD [address] [place] [address] Referring Orthopedics 12/11/19 Rico Kelly, PT [address] [place] [address] Typing Bookkeeper Post Acute Care 12/13/19 Qualitative Executive Researcher Relationship Specialty Start Date End Date Sergio Bailey MD [address], [place] [id number] PCP - General Family Practice 05/08/20 Moshe Paz MD [address] [facility] [place] [address] Home Care Provider Orthopedics 12/11/19 Moshe Paz MD [address] [facility] [place] [address] Referring Orthopedics 12/11/19 Rico Kelly, PT [address] [place] [address] Typing Bookkeeper Post Acute Care 12/13/19 Qualitative Executive Researcher Relationship Specialty Start Date End Date Sergio Bailey MD [address], [place] [address] PCP - General Family Medicine 05/08/20 Moshe Paz MD [address] [place] [address] Home Care Provider Orthopedics 12/11/19 Moshe Paz MD [address] [place] [address] Referring Orthopedics 12/11/19 Rico Kelly, PT [address] [place] [address] Typing Bookkeeper Post Acute Care 12/13/19 Qualitative Executive Researcher Relationship Specialty Start Date End Date Sergio Bailey MD [address] [place] [address] PCP - General Family Medicine 05/08/20 Moshe Paz MD [address] [place] [address] Home Care Provider Orthopedics 12/11/19 Moshe Paz MD [address] [place] [address] Referring Orthopedics 12/11/19 Rico Kelly, PT [address] [place] [address] Typing Bookkeeper Post Acute Care 12/13/19 Qualitative Executive Researcher Relationship Specialty Start Date End Date Sergio Bailey MD [address], [place] [address]471 PCP - General Family Medicine 05/08/20 Moshe Paz MD [address] [place] [address] Home Care Provider Orthopedics 12/11/19 Moshe Paz MD [address] [place] [address] Referring Orthopedics 12/11/19 Rico Kelly, PT [address] [place] [address] Typing Bookkeeper Post Acute Care 12/13/19 Qualitative Executive Researcher Relationship Specialty Start Date End Date Sergio Bailey MD [address] [place] [address] PCP - General Family Medicine 05/08/20 Moshe Paz MD [address] [place] [address] Home Care Provider Orthopedics 12/11/19 Moshe Paz MD [address] [place] [address] Referring Orthopedics 12/11/19 Rico Kelly, PT [address] [place] [address] Typing Bookkeeper Post Acute Care 12/13/19 Qualitative Executive Researcher Relationship Specialty Start Date End Date Sergio Bailey MD [address] [address] PCP - General Family Medicine 05/08/20 Moshe Paz MD [address] [place] [address] Home Care Provider Orthopedics 12/11/19 Moshe Paz MD [address] [place] [address] Referring Orthopedics 12/11/19 Rico Kelly, PT [address] [place] [address] Typing Bookkeeper Post Acute Care 12/13/19 Qualitative Executive Researcher Relationship Specialty Start Date End Date Sergio Bailey MD [address] [place] [address] PCP - General Family Medicine 05/08/20 Moshe Paz MD [address] [facility] [place] [address] Home Care Provider Orthopedics 12/11/19 Moshe Paz MD [address] [place] [address] Referring Orthopedics 12/11/19 Rico Kelly, PT [address] [place] [address] Typing Bookkeeper Post Acute Care 12/13/19 Qualitative Executive Researcher Relationship Specialty Start Date End Date Sergio Bailey MD [address], [place] [id number] PCP - General Family Medicine 05/08/20 Moshe Paz MD [address] [facility] [place] [address] Home Care Provider Orthopedics 12/11/19 Moshe Paz MD [address] [facility] [place] [address] Referring Orthopedics 12/11/19 Rcio Kelly, PT [address] [place] [address] Typing Bookkeeper Post Acute Care 12/13/19 Team Status: Active Member Role Status Dates Dr. Sergio Bailey MD Family Provider Active Dr. Sergio Bailey MD Primary Care Provider Active Team Status: Inactive Member Role Status Dates Dr. Sergio Bailey MD Primary Care Provider Active Dr. Hailee De Leon DO Attending Provider, Emergency P rovider Active Team Status: Inactive Member Role Status Dates Dr. Sergio Bailey MD Primary Care Provider, Attending P rovider Active Team Status: Active Member Role Status Dates Dr. Sergio Bailey MD Primary Care Provider, Attending P rovider Active Team Status: Inactive Member Role Status Dates Dr. Sergio Bailey MD Primary Care Provide r, Attending Provider, Referring Provider Active Qualitative Executive Researcher Relationship Specialty Start Date End Date Sergio Bailey MD [address] [place] [address] PCP - General Family Medicine 05/08/20 Moshe Paz MD [address] [place] [address] Home Care Provider Orthopedics 12/11/19 Moshe Paz MD [address] [place], [place] [address] Referring Orthopedics 12/11/19 Rico Kelly, PT [address] [place] [address] Typing Bookkeeper Post Acute Care 12/13/19 Team Status: Inactive Member Role Status Dates Dr. Sergio Bailey MD Primary Care Provider Active Dr. Shanika Nava MD Attending Provider, Referring P rovider Active Team Status: Active Member Role Status Dates Dr. Sergio Bailey MD Primary Care Provider Active Dr. Jean Morales DO Emergency Provider Active Dr. Valentina Palomares MD Admit Provider, Attending Prov ider Active Team Status: Active Member Role Status Dates Dr. Sergio Bailey MD Primary Care Provider Active Dr. Jean Morales DO Emergency Provider Active Dr. Valentina Palomares MD Admit Provider, Other Provider Active Dr. Deven Ugarte MD Other Provider Active Dr. Ashish Rojas MD Attending Provider Active Team Status: Active Member Role Status Dates Dr. Sergio Bailey MD Primary Care Provider Active Dr. Jean Morales DO Emergency Provider Active Dr. Valentina Palomares MD Admit Provider, Other Provider Active Dr. Deven Ugarte MD Attending Provider, Other Provi jono Active Team Status: Inactive Member Role Status Dates Dr. Sergio Bailey MD Primary Care Provider Active Dr. Jean Moralse DO Emergency Provider Active Dr. Valentina Palomares MD Admit Provider, Other Provider Active Dr. Deven Ugarte MD Attending Provider Active Team Status: Inactive Member Role Status Dates Dr. Sergio Bailey MD Primary Care Provider Active Dr. Alis Sorenson MD Emergency Provider Active Qualitative Executive Researcher Relationship Specialty Start Date End Date Sergio Bailey MD [address], [place] [id number] PCP - General Family Medicine 05/08/20 Moshe Paz MD [address] [place], [place] [id number] Home Care Provider Orthopedics 12/11/19 Moshe Paz MD [address] [place], [place] [address] Referring Orthopedics 12/11/19 Rico Kelly, PT [address] [place] [address] Typing Bookkeeper Post Acute Care 12/13/19 Qualitative Executive Researcher Relationship Specialty Start Date End Date Sergio Bailey MD [address], [place] [address] PCP - General Family Medicine 05/08/20 Moshe Paz MD [address] [place], [place] [address] Home Care Provider Orthopedics 12/11/19 Moshe Paz MD [address] [place] [address] Referring Orthopedics 12/11/19 Rico Kelly, PT [address] [place] [address] Typing Bookkeeper Post Acute Care 12/13/19 Qualitative Executive Researcher Relationship Specialty Start Date End Date Sergio Bailey MD [address], [place] 195151 PCP - General Family Medicine 05/08/20 Moshe Paz MD [address] [place] [address] Home Care Provider Orthopedics 12/11/19 Moshe Paz MD [address] [place] [address] Referring Orthopedics 12/11/19 Rico Kelly, PT [address] [place] [address] Typing Bookkeeper Post Acute Care 12/13/19 Qualitative Executive Researcher Relationship Specialty Start Date End Date Sergio Bailye MD [address], [place] [address]41 PCP - General Family Medicine 05/08/20 Moshe Paz MD [address] [place] [address] Home Care Provider Orthopedics 12/11/19 Moshe Paz MD [address] [place] [address] Referring Orthopedics 12/11/19 Rico Kelly, PT [address] [place] [address] Typing Bookkeeper Post Acute Care 12/13/19 Qualitative Executive Researcher Relationship Specialty Start Date End Date Sergio Bailey MD [address] [place] [address] PCP - General Family Medicine 05/08/20 Moshe Paz MD [address] [place] [address] Home Care Provider Orthopedics 12/11/19 Moshe Paz MD [address] [place] [address] Referring Orthopedics 12/11/19 Rico Kelly, PT [address] [place] [address] Typing Bookkeeper Post Acute Care 12/13/19 Team Status: Inactive Member Role Status Dates Dr. Sergio Bailey MD Primary Care Provider Active Dr. Alis Sorenson MD Attending Provider, Emergency Provider Active Team Status: Inactive Member Role Status Dates Dr. Sergio Bailey MD Primary Care Provider, Referring P steffany Active JAXON Simpson Attending Provider Active Team Status: Active Member Role Status Dates Dr. Sergio Bailey MD Primary Care Provider Active Kashif St MD Emergency Provider Active Dr. Nilesh Gaona , DO Admit Provider, Other Provid er Active Dr. Casa Jain MD Attending Provider, Other Provider Active Dr. García Barth , DO Other Provider Active Dr. Ian Lassiter , DO Other Provider Active Dr. Casa Guerrero , DO Other Provider Active Dr. Micheal Arthur MD Other Provider Active Dr. Parish Arias MD Other Provider Active Dr. Jamie Arthur , DPDenise Other Provider Active Lorenatia Hanley PA, PA Other Provider Active JAXON Kasper Other Provider Active Ray Eshenaur PA, PA-C Other Provider Active Giovanni Barrett PA, PA-C Other Provider Active Team Status: Active Member Role Status Dates Dr. Sergio Bailey MD Primary Care Provider Active Kashif St MD Emergency Provider Active Dr. Nilesh Gaona , DO Admit Provider, Other Provid er Active Dr. Casa Jain MD Other Provider Active Dr. García Barth , DO Other Provider Active Dr. Ian Lassiter , DO Other Provider Active Dr. Casa Guerrero , DO Other Provider Active Dr. Micheal Arthur MD Other Provider Active Dr. Parish Arias MD Other Provider Active Dr. Jamie Arthur DPM Other Provider Active Lorena Hanley PA, PA Other Provider Active JAXON Kasper Other Provider Active Ray Eshenstephanr PA, PA-C Other Provider Active Giovanni COATES, PA-C Other Provider Active Dr. Rosalio Bonilla , Attending Provider Active Team Status: Active Member Role Status Dates Dr. Sergio Bailey MD Primary Care Provider Active Dr. Sergio Sosa MD Attending Provider Active Team Status: Inactive Member Role Status Dates Dr. Sergio Bailey MD Primary Care Provider Active Kashif St MD Emergency Provider Active Dr. Nilesh Gaona , DO Admit Provider, Other Provid er Active Dr. Casa Jain MD Attending Provider Active Dr. García Barth , DO Other Provider Active Dr. Ian Lassiter , DO Other Provider Active Dr. Casa Guerrero , DO Other Provider Active Dr. Micheal Arthur MD Other Provider Active Dr. Parish Arias MD Other Provider Active Dr. Jamie Arthur , DPDenise Other Provider Active Lorena Hanley PA, PA Other Provider Active Greta Muñoz PA Other Provider Active Ray Eshenaur PA, PA-C Other Provider Active Giovanni Barrett PA, PA-C Other Provider Active Team Status: Inactive Member Role Status Dates Dr. Sergio Bailey MD Primary Care Provider Active Dr. Christian Blood MD Emergency Provider Active Team Status: Active Member Role Status Dates Dr. Sergio Bailey MD Primary Care Provider Active Dr. Andrew Langston MD Attending Provider Active Team Status: Inactive Member Role Status Dates Dr. Sergio Bailey MD Primary Care Provider Active Dr. Christian Blood MD Attending Provider, Emergency Provider Active Team Status: Inactive Member Role Status Dates Dr. Sergio Bailey MD Primary Care Provider Active Dr. García Barth , Attending Provider, Referring Eunice girardluisjono Active Team Status: Active Member Role Status Dates Dr. Sergio Bailey MD Primary Care Provider Active Dr. Andrew Langston MD Attending Provider Active Dr. García Barth DO Referring Provider Active Qualitative Executive Researcher Relationship Specialty Start Date End Date Sergio Bailey MD [address] [place] [address] PCP - General Family Medicine 04/25/23 Qualitative Executive Researcher Relationship Specialty Start Date End Date Sergio Bailey MD [address] [place] [address] PCP - General Family Medicine 04/25/23 Qualitative Executive Researcher Relationship Specialty Start Date End Date Sergio Bailey MD [address] [place] [address] PCP - General Family Medicine 04/25/23 Team Status: Active Member Role Status Dr. Sergio Bailey MD Primary Care Provider Active Kashif St MD Emergency Provider Active Dr. Nilesh Gaona , DO Admit Provider, Other Provid er Active Dr. Casa Jain MD Referring Provider, Other Provider Active Dr. García Barth , DO Other Provider Active Dr. Ian Lassiter , DO Other Provider Active Dr. Casa Guerrero , DO Other Provider Active Dr. Micheal Arthur MD Other Provider Active Dr. Parish Arias MD Other Provider Active Dr. Jamie Arthur , SHERON Other Provider Active Lorena COATES PA Other Provider Active JAXON Kasper Other Provider Active Alexey COATES, PA-C Other Provider Active Giovanni COATES, PA-C Other Provider Active Dr. Rosalio Bonilla , DO Attending Provider Active Team Status: Active Member Role Status Dates Dr. Sergio Bailey MD Primary Care Provider Active Dr. Sergio Sosa MD Attending Provider Active Dr. Nilesh Gaona DO Referring Provider Active Team Status: Inactive Member Role Status Dates Dr. Sergio Bailey MD Primary Care Provider Active Franc Quezada MD Attending Provider Active Qualitative Executive Researcher Relationship Specialty Start Date End Date Sergio Bailey MD [address] [facility] [address] [place], [place] [address] PCP - General Family Medicine 04/25/23 Qualitative Executive Researcher Relationship Specialty Start Date End Date Sergio Bailey MD [address] [facility] [place] [address] PCP - General Family Medicine 05/08/20 Moshe Paz MD [address] [place], [place] [id number] Home Care Provider Orthopedics 12/11/19 Moshe Paz MD [address] [place], [place] [id number] Referring Orthopedics 12/11/19 Rico Kelly, PT [address] [place], [place] [address] Typing Bookkeeper Post Acute Care 12/13/19 Qualitative Executive Researcher Relationship Specialty Start Date End Date Franc Quezada MD [address] [facility] [address] [place] [address] PCP - General Family Medicine 02/24/24 Qualitative Executive Researcher Relationship Specialty Start Date End Date Sergio Bailey MD [address] [facility] [address] [place], [place] [id number] PCP - General Family Medicine 04/25/23 Qualitative Executive Researcher Relationship Specialty Start Date End Date Sergio Bailey MD [address] [facility] [address] [place], [place] [id number] PCP - General Family Medicine 04/25/23 Qualitative Executive Researcher Relationship Specialty Start Date End Date Sergio Bailey MD [address] [address] PCP - General Family Medicine 04/25/23 Qualitative Executive Researcher Relationship Specialty Start Date End Date Franc Quezada MD [address] [address] PCP - General Family Medicine 03/28/24 Qualitative Executive Researcher Relationship Specialty Start Date End Date Sergio Bailey MD [address] [facility] [place] [address] PCP - General Family Medicine 05/08/20 Moshe Paz MD [address] [place], [place] [id number] Home Care Provider Orthopedics 12/11/19 Moshe Paz MD [address] [place], [place] [id number] Referring Orthopedics 12/11/19 iRco Kelly, PT [address] [place] [address] Typing Bookkeeper Post Acute Care 12/13/19 Qualitative Executive Researcher Relationship Specialty Start Date End Date Sergio Bailey MD [address] [facility] [place] [address] PCP - General Family Medicine 05/08/20 Moshe Paz MD [address] [place] [address] Home Care Provider Orthopedics 12/11/19 Moshe Paz MD [address] [place] [address] Referring Orthopedics 12/11/19 Rico Kelly, PT [address] [place] [address] Typing Bookkeeper Post Acute Care 12/13/19 Qualitative Executive Researcher Relationship Specialty Start Date End Date Sergio Bailey MD [address] [place] [address] PCP - General Family Medicine 05/08/20 Moshe Paz MD [address] [place] [address] Home Care Provider Orthopedics 12/11/19 Moshe Paz MD [address] [place] [address] Referring Orthopedics 12/11/19 Rico Kelly, PT [address] [place] [address] Typing Bookkeeper Post Acute Care 12/13/19 Qualitative Executive Researcher Relationship Specialty Start Date End Date Sergio Bailey MD [address] [place] [address] PCP - General Family Medicine 05/08/20 Moshe Paz MD [address] [place] [address] Home Care Provider Orthopedics 12/11/19 Moshe Paz MD [address] [place] [address] Referring Orthopedics 12/11/19 Rico Kelly, PT [address] [place] [address] Typing Bookkeeper Post Acute Care 12/13/19 Qualitative Executive Researcher Relationship Specialty Start Date End Date Sergio Bailey MD [address] [place] [address] PCP - General Family Medicine 05/08/20 Moshe Paz MD [address] [place] [address] Home Care Provider Orthopedics 12/11/19 Moshe Paz MD [address] [place] [address] Referring Orthopedics 12/11/19 Rico Kelly, PT [address] [place] [address] Typing Bookkeeper Post Acute Care 12/13/19 Qualitative Executive Researcher Relationship Specialty Start Date End Date Sergio Bailey MD [address] [place] [address] PCP - General Family Medicine 05/08/20 Moshe Paz MD [address] [place] [address] Home Care Provider Orthopedics 12/11/19 Moshe Paz MD [address] [place] [address] Referring Orthopedics 12/11/19 Rico Kelly, PT [address] [place] [address] Typing Bookkeeper Post Acute Care 12/13/19 Qualitative Executive Researcher Relationship Specialty Start Date End Date Sergio Bailey MD [address] [place], [place] [address] PCP - General Family Medicine 05/08/20 Moshe Paz MD [address] [place] [address] Home Care Provider Orthopedics 12/11/19 Moshe Paz MD [address] [place] [address] Referring Orthopedics 12/11/19 Rico Kelly, PT [address] [place] [address] Typing Bookkeeper Post Acute Care 12/13/19 Qualitative Executive Researcher Relationship Specialty Start Date End Date Sergio Bailey MD [address] [place] [address] PCP - General Family Medicine 05/08/20 Moshe Paz MD [address] [place] [address] Home Care Provider Orthopedics 12/11/19 Moshe Paz MD [address] [place] [address] Referring Orthopedics 12/11/19 Rico Kelly, PT [address] [place] [address] Typing Bookkeeper Post Acute Care 12/13/19 Qualitative Executive Researcher Relationship Specialty Start Date End Date Sergio Bailey MD [address] [place], [place] [address] PCP - General Family Medicine 05/08/20 Moshe Paz MD [address] [place] [address] Home Care Provider Orthopedics 12/11/19 Moshe Paz MD [address] [place] [address] Referring Orthopedics 12/11/19 Rico Kelly, PT [address] [place] [address] Typing Bookkeeper Post Acute Care 12/13/19 Qualitative Executive Researcher Relationship Specialty Start Date End Date Sergio Bailey MD [address] [place], [place] [address] PCP - General Family Medicine 05/08/20 Moshe Paz MD [address] [place] [address] Home Care Provider Orthopedics 12/11/19 Moshe Paz MD [address] [place] [address] Referring Orthopedics 12/11/19 Rico Kelly, PT [address] [place] [address] 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 Sergio Bailey MD Family Provider Active Franc Quezada MD Primary Care Provider Active Team Status: Inactive Member Role Status Apryl Quezada MD Primary Care Provider Active St art: June 10, 2024 End: June 10, 2024 Dr. Ashish Rojas MD Attending Provider Active S tart: June 10, 2024 End: June 10, 2024 Dr. Ashish Rojas MD Referring Provider Active S tart: June 10, 2024 End: June 10, 2024 Team Status: Inactive Member Role Status Apryl Quezada MD Primary Care Provider Active St art: June 16, 2024 End: June 17, 2024 Dr. Brent Nuñez DO Attending Provider Active Start: June 16, 2024 End: June 17, 2024 Dr. Brent Nuñez DO Emergency Provider Active Start: June 16, 2024 End: June 17, 2024 Team Status: Inactive Member Role Status Apryl Quezada MD Primary Care Provider Active St art: June 17, 2024 End: June 19, 2024 Dr. Jean Morales DO Emergency Provider Active Start: June 17, 2024 End: June 19, 2024 Dr. Aranza Reynolds MD Admit Provider Active Star t: June 17, 2024 End: June 19, 2024 Dr. Aranza Reynolds MD Other Provider Active Star t: June 17, 2024 End: June 19, 2024 Dr. Fito Kessler DO Attending Provider Active Start: June 17, 2024 End: June 19, 2024 Dr. Casa Guerrero DO Other Provider Active Start: June 17, 2024 End: June 19, 2024 Team Status: Active Member Role Status Apryl Quezada MD Primary Care Provider Active St art: June 17, 2024 Dr. Jean Morales DO Emergency Provider Active Start: June 17, 2024 Dr. Aranza Reynolds MD Admit Provider Active Star t: June 17, 2024 Dr. Aranza Reynolds MD Attending Provider Active Start: June 17, 2024 Dr. Aranza Reynolds MD Other Provider Active Star t: June 17, 2024 Team Status: Active Member Role Status Apryl Quezada MD Primary Care Provider Active St art: June 18, 2024 Dr. Jean Morales DO Emergency Provider Active Start: June 18, 2024 Dr. Aranza Reynolds MD Admit Provider Active Star t: June 18, 2024 Dr. Aranza Reynolds MD Other Provider Active Star t: June 18, 2024 Dr. Fito Kessler DO Attending Provider Active Start: June 18, 2024 Dr. Fito Kessler DO Other Provider Active Start: June 18, 2024 Team Status: Active Member Role Status Apryl Quezada MD Primary Care Provider Active St art: June 19, 2024 Dr. Jean Morales DO Emergency Provider Active Start: June 19, 2024 Dr. Aranza Reynolds MD Admit Provider Active Star t: June 19, 2024 Dr. Aranza Reynolds MD Other Provider Active Star t: June 19, 2024 Dr. Fito Kessler DO Attending Provider Active Start: June 19, 2024 Dr. Fito Kessler DO Other Provider Active Start: June 19, 2024 Dr. Casa Guerrero DO Other Provider Active Start: June 19, 2024 Team Status: Inactive Member Role Status Apryl Quezada MD Primary Care Provider Active St art: June 19, 2024 End: July 02, 2024 Dr. Ken Scott MD Admit Provider Active Star t: June 19, 2024 End: July 02, 2024 Dr. Ken Scott MD Attending Provider Active Start: June 19, 2024 End: July 02, 2024 Team Status: Inactive Member Role Status Apryl Quezada MD Primary Care Provider Active St art: June 24, 2024 End: June 24, 2024 Franc Quezada MD Referring Provider Active Start : June 24, 2024 End: June 24, 2024 Dr. Rosalio Bonilla DO Attending Provider Active Start: June 24, 2024 End: June 24, 2024 Team Status: Active Member Role Status Apryl Quezada MD Primary Care Provider Active St art: June 24, 2024 Franc Quezada MD Referring Provider Active Start : June 24, 2024 Dr. Rosalio Bonilla DO Attending Provider Active Start: June 24, 2024 Dr. Rosalio Bonilla DO Other Provider Active St art: June 24, 2024 Team Status: Inactive Member Role Status Apryl Quezada MD Primary Care Provider Active St art: June 28, 2024 End: June 28, 2024 Franc Quezada MD Referring Provider Active Start : June 28, 2024 End: June 28, 2024 Vilma Vasquez PA, PA Attending Provider Active Start: June 28, 2024 End: June 28, 2024 Team Status: Active Member Role Status Apryl Quezada MD Primary Care Provider Active St art: June 29, 2024 Dr. Ken Scott MD Admit Provider Active Star t: June 29, 2024 Dr. Ken Scott MD Other Provider Active Star t: June 29, 2024 Dr. Mecca Abad DO Attending Provider Active Start: June Team Status: Active Member Role Status Apryl Quezada MD Primary Care Provider Active St art: July 01, 2024 Dr. Ken Scott MD Admit Provider Active Star t: July 01, 2024 Dr. Ken Scott MD Other Provider Active Star t: July 01, 2024 Dr. Mecca Abad DO Attending Provider Active Start: June Team Status: Inactive Member Role Status Apryl Quezada MD Primary Care Provider Active St art: July 04, 2024 End: July 04, 2024 Franc Quezada MD Attending Provider Active Start : July 04, 2024 End: July 04, 2024 Team Status: Inactive Member Role Status Apryl Quezada MD Primary Care Provider Active St art: July 08, 2024 End: July 08, 2024 Franc Quezada MD Attending Provider Active Start : July 08, 2024 End: July 08, 2024 Franc Quezada MD Referring Provider Active Start : July 08, 2024 End: July 08, 2024 Team Status: Inactive Member Role Status Apryl Quezada MD Primary Care Provider Active St art: July 15, 2024 End: July 15, 2024 Franc Quezada MD Attending Provider Active Start : July 15, 2024 End: July 15, 2024 Franc Quezada MD Referring Provider Active Start : July 15, 2024 End: July 15, 2024 Team Status: Inactive Member Role Status Apryl Quezada MD Primary Care Provider Active St art: September 20, 2024 End: September 20, 2024 Franc Quezada MD Referring Provider Active Start : September 20, 2024 End: September 20, 2024 Vilma Vasquez PA, PA Attending Provider Active Start: September 20, 2024 End: September 20, 2024 Team Status: Inactive Member Role Status Apryl Quezada MD Primary Care Provider Active St art: September 20, 2024 End: September 20, 2024 Vilma Vasquez PA, PA Attending Provider Active Start: September 20, 2024 End: September 20, 2024 Vilma Vasquez PA, PA Referring Provider Active Start: September 20, 2024 End: September 20, 2024 Team Status: Active Member Role Status Apryl Quezada MD Primary Care Provider Active Team Status: Inactive Member Role Status Apryl Quezada MD Primary Care Provider Active St art: November 06, 2024 End: November 06, 2024 Dr. Andrew Dover MD Attending Provider Active Start: November 06, 2024 End: November 06, 2024 Dr. Andrew Dover MD Referring Provider Active Start: November 06, 2024 End: November 06, 2024 Team Status: Inactive Member Role Status Apryl Quezada MD Primary Care Provider Active St art: November 13, 2024 End: November 13, 2024 Franc Quezada MD Referring Provider Active Start : November 13, 2024 End: November 13, 2024 JAXON Brown Attending Provider Active Start: November 13, 2024 End: November 13, 2024 Team Status: Inactive Member Role Status Dates Franc Quezada MD Primary Care Provider Active St art: November 13, 2024 End: November 13, 2024 JAXON Brown Attending Provider Active Start: November 13, 2024 End: November 13, 2024 JAXON Brown Referring Provider Active Start: November 13, 2024 End: November 13, 2024 Goals (unrecognized section and content) Goals may be documented in a n alternate sectionGoals may be documented in an alternate sectionGoals may be documented in an alternate sectionGoals may be documented in an alternate sectionGoals may be documented in an alternate sectionGoals may be documented in an alternate sectionGoals may be documented in an alternate sectionGoals may be documented in an alternate sectionGoals may be documented in an alternate sectionGoals may be documented in an alternate sectionGoals may be documented in an alternate sectionGoals may be documented in an alternate sectionGoals may be documented in an alternate sectionGoals may be documented in an alternate sectionGoals may be documented in an alternate sectionGoals may be documented in an alternate section FOR RECORDS PERTAINING TO PATIENTS WHO ARE [...] BE BASED ON THE PRIMARY CLINICAL RECORDS. [employer] provides no warranty or guarantee of the accuracy or completeness of information in this document.
[2024-12-28 02:03] LABS: Mucous, Urine 0 SEEN /hpf (<or=2+); Red Blood Cells-Urine 0 SEEN /hpf (0-5); Squamous Epithelial Cells - UA 0 SEEN /hpf (5-10)
[2024-12-28 02:04] LABS: Color, Urine Yellow (Yellow); Glucose, Dipstick Normal (Normal); Ketone-Dipstick Negative (Negative); Leukocyte Esterase-Dipstick Negative /ul (Negative); Nitrite-Dipstick Negative (Negative); Occult Blood-Urine 25 /ul (Negative); Protein-Dipstick 30 mg/dl (Negative); Specific Gravity, Urine 1.010 (1.002-1.030); Urine Bilirubin Dipstick Negative (Negative)
[2024-12-28] MEDS: fentaNYL drip 100 ML 2.5 MCG CONT INF (02:04)
[2024-12-28 02:09] LABS: Differential Indicated SCAN CRITERIA MET
[2024-12-28 02:10] LABS: AST(SGOT) 77 U/L (<=31); Alanine Aminotransfer ALT/SGPT 25 U/L (<=34); Albumin, Serum 4.1 g/dL (3.4-4.8); Alkaline Phosphatase 80 U/L (35-104); Anion Gap 23 (5-15); BUN 15 mg/dL (4-19); BUN/Creat Ratio 14.4 RATIO (10-20); Calcium,Total 9.3 mg/dL (7.6-11.0); Carbon Dioxide 13.7 mmol/L (21.0-32.0); Chloride 102 mmol/L (98-108); Estimated Creatinine Clearance 35.55 ml/min (50-250); Globulin 2.3 g/dL (2.2-4.2); Glucose 269 mg/dL (70-99); Potassium 3.8 mmol/L (3.3-5.1); Troponin T High Sensitivity 35 ng/L (<=14)
[2024-12-28 02:13] LABS: Prothrombin Time (Protime)PT. 13.1 SECONDS (11.7-14.9)
[2024-12-28 02:14] LABS: Partial Thromboplast Time 24.4 Seconds (24.1-36.2)
[2024-12-28 02:21] LABS: Allen Test Positive; Base Excess -18 mmol/L (-2 to +2); FI02 50.0; PEEP 5; PO2 93 mmHG (75-100); RR 18; SITE R Radial; SO2 92 % (95-99); Time Given 02:18:22
[2024-12-28] MEDS: VIAFLEX IV (02:25)
[2024-12-28] MEDS: NORMAL SALINE IV (02:25)
[2024-12-28] MEDS: Sodium Bicarbonate 8.4% 50 ML Syringe 50 MEQ IV (02:31)
[2024-12-28] MEDS: 0.9% Normal Saline (250mL Bag) 250 ML 15 ML IV (02:34)
[2024-12-28] MEDS: Piperacil/Tazobactam 3.375 GM in 0.9% Normal Saline (50mL MB+) 50 ML IV ×3 (02:40→22:30)
[2024-12-28] MEDS: Midazolam 2 MG/2 ML Syringe IV (02:53)
[2024-12-28 02:58] LABS: Differential Comment SCANNED; Reactive Lymphocyte 1+
[2024-12-28] MEDS: Midazolam 50 MG in 0.9% Normal Saline (100mL Bag) 90 ML CONT INF (03:03)
[2024-12-28] MEDS: Vancomycin HCl 750 MG in 0.9% Normal Saline (250mL Bag) 250 ML 250 MG IV (03:30)
[2024-12-28] MEDS: Norepinephrine Bit/0.9% NaCl 8 MG/250 ML IV.SOLN 9.4 MG CONT INF (03:42)
--- NOTE | 2024-12-28 04:18 | PCM.HP.STD ---
HPI - General General Date of Admission: 12/28/24 Date of Service: 12/28/24 Chief Complaint: Dyspnea. HPI Narrative The patient is an 84 y/o F w/ PMHx: CKD stage II per GFR trending, Rheumatoid arthritis, Severe stenosis R subclavian, Chronic headaches, Anxiety and Depression, GERD w/ Hx GI bleed, COPD, Former tobacco use, Chronic mild cognitive impairment, Hx VTE (DVT), Nonobstructive CAD, LV dysfunction, Chronic noromcytic anemia who presents to the [facility] ED on 12/28/2024 with history of progressively worsening dyspnea over the last 12 to 24 hours worsening at approximately 12:30 PM on 12/27/2024 with increased work of breathing and accessory muscle usage just prior to arrival prompting ED evaluation. Upon initial ED arrival per ED physician patient was noted to be tachycardic, tachypneic, mildly somnolent with severe respiratory distress with accessory muscle usage, significantly tight/diminished breath sounds with diffuse bilateral wheezing. Given progressively worsened appearance despite BiPAP patient was eventually intubated in the ED. Workup in the ED included T97.8, heart rate 143, BP 134/92, respiratory rate 32, initially 96% on a 15 L nonrebreather eventually transition to BiPAP with vital signs at that transition T97.8, heart rate 139, BP 136/77, respiratory rate 38, 96% on 50% FiO2 BiPAP-->BP 96/50, heart rate 139, respiratory rate 18, 96% on 50% FiO2 intubated--> T97.4, heart rate 126, BP 101/58, respiratory rate 21, 100% on FiO2 50% mechanically intubated--> eventually dropping her blood pressure again down to 58/42 with most recent repeat vital signs T97.3 Cortan, heart rate 98, BP 101/45, respiratory rate 18, 99% on 50% FiO2 ventilated status, CBC with WBC 12.3, Weiss 12.8, MCV 102.5, platelet 241 with lymphocytosis with increased immature granulocytes, CMP with At 13.7, anion gap 23, BUN/creatinine 15/1.06, GFR 52, glucose 269, lactic acid 9.6, hepatic profile not marked appearing aside AST 77, initial troponin 35, urinalysis unremarkable with no obvious evidence of UTI, chest x-ray with emphysematous type changes with right mid and lower lung opacity concerning for pneumonia, ABG with pH 7.03, bicarb 13.2, O2 saturation 92% on the vent, pCO2 50.7, PO293, blood culture x 2 pending per ED, urine culture pending per ED, rapid SARS COVID/influenza/RSV negative, EKG with ST with no acute evidence of ischemia. In the ED Central line placed. In the ED patient ministered 1 L normal saline, rocuronium 60 mg IV x 1, etomidate 20 mg IV x 1, fentanyl 100 mcg IV x 2, Versed bolus and drip, fentanyl drip in addition to sodium bicarb 50 mill equivalent amp x 1, IV vancomycin and IV Zosyn in addition to eventually being started on norepinephrine drip. [facility] Medical History Neuropathic pain Chronic headache Hyperlipidemia Left knee pain Stenosis of right subclavian artery Quadriceps muscle rupture Post-menopausal Alcohol use Walker as ambulation aid Back pain Migraine headache Shortness of breath on exertion History of edema History of pain when walking History of stress test History of echocardiogram Cardiology follow-up encounter Depression Rheumatoid arthritis GI bleed Former smoker Migraines B12 deficiency Depressive disorder Mild cognitive impairment Essential (primary) hypertension CAD (coronary artery disease) Left ventricular hypertrophy Osteoporosis OAB (overactive bladder) Palpitations Fatigue GERD (gastroesophageal reflux disease) Dysphagia COPD (chronic obstructive pulmonary disease) Chronic ischemic colitis Chest pain DVT (deep venous thrombosis) Dyspnea Spondylosis Back pain Osteoarthritis Neoplasm of kidney Vitamin D deficiency Iron deficiency anemia Occipital neuralgia of right side Major depressive disorder Chronic headaches Home Medications ?Medication ?Instructions ?Recorded ?Last Taken ?Type aspirin 81 mg tablet,delayed 81 mg PO QDAY blood thinner 05/06/24 06/19/24 History release (Adult Aspirin Regimen) atorvastatin 20 mg tablet 20 mg PO QDAY cholesterol 05/06/24 06/24/24 History duloxetine 20 mg capsule,delayed 20 mg PO DAILY mood 05/06/24 06/19/24 10:30 History release metoprolol succinate 50 mg 50 mg PO QDAY blood pressure 05/06/24 06/24/24 History tablet,extended release 24 hr pantoprazole 40 mg tablet,delayed 40 mg PO QDAY GERD 05/22/24 06/19/24 10:30 History release losartan 50 mg tablet 50 mg PO QDAY #90 tabs 06/28/24 Unknown Rx sennosides 8.6 mg-docusate sodium 2 tab PO BID #120 tabs 07/01/24 Unknown Rx 50 mg tablet (Stimulant Laxative Plus) hydrocodone-acetaminophen 5-325mg 1 tab PO Q8H PRN pain 09/20/24 Unknown History 5mg-325mg ondansetron 4 mg disintegrating 4 mg PO Q8H 11/13/24 Unknown History tablet cranberry extract 500 mg capsule 500 mg PO DAILY 12/28/24 Unknown History (Cranberry Concentrate) estradiol 1 mg/gram (0.1 %) 1 mg transdermal DAILY 12/28/24 Unknown History transdermal gel packet (Divigel) methocarbamol 500 mg tablet 500 mg PO TID PRN PRN muscle spasm 12/28/24 Unknown History nortriptyline 10 mg capsule 25 mg PO QHS 12/28/24 Unknown History Allergy/AdvReac Type Severity Reaction Status Date / Time No Known Allergies Allergy Verified 06/28/24 12:51 Family History Father CAD (coronary artery disease) CABG x 5 Skin cancer Brother Diabetes CAD (coronary artery disease) age 59 Skin cancer Mother Skin cancer Surgical History History of total left knee replacement History of cardiac catheterization History of esophagogastroduodenoscopy (EGD) History of left heart catheterization (~2002) History of bilateral knee replacement History of open reduction and internal fixation (ORIF) procedure History of right hip replacement Social History (Updated 12/28/24 @ 04:[address] Valentina Palomares MD) household members: spouse Smoking Status: Former smoker alcohol intake: current alcohol intake frequency: a few times a week substance use type: does not use ROS Review of Systems ROS Unobtainable: due to endotracheal tube Vital Signs Vital Signs Vital Signs: 12/28/24 01:23 12/28/24 01:27 12/28/24 01:30 Temperature 97.8 F Temperature Source Temporal Pulse Rate 143 H 144 H 142 H Respiratory Rate 32 H 36 H 40 H Respiratory Effort Respiratory Depth Respiratory Pattern Tachypnea Blood Pressure 134/92 H Blood Pressure Mean 106 Pulse Ox 96 96 97 Oxygen Delivery Method Non-Rebreather Oxygen Flow Rate (L/min) 15 Fraction of Inspired Oxygen (FIO2) 50 40 12/28/24 01:31 12/28/24 01:31 12/28/24 01:39 Temperature 97.8 F Temperature Source Temporal Pulse Rate 139 H Respiratory Rate 38 H Respiratory Effort Short of Breath Accessory Muscle Use Retracting Respiratory Depth Shallow Respiratory Pattern Tachypnea Blood Pressure 136/77 H Blood Pressure Mean 96 Pulse Ox 96 96 95 Oxygen Delivery Method Bi-pap Bi-pap Bi-pap Oxygen Flow Rate (L/min) 50 Fraction of Inspired Oxygen (FIO2) 50 50 12/28/24 01:50 12/28/24 01:50 12/28/24 01:53 Temperature Temperature Source Pulse Rate 142 H 139 H Respiratory Rate 18 18 Respiratory Effort Short of Breath Accessory Muscle Use Respiratory Depth Shallow Respiratory Pattern Tachypnea Blood Pressure 96/50 L Blood Pressure Mean 65 Pulse Ox 98 96 Oxygen Delivery Method Bi-pap Mechanical Ventilator Oxygen Flow Rate (L/min) 50 Fraction of Inspired Oxygen (FIO2) 50 50 12/28/24 02:21 12/28/24 02:27 12/28/24 02:30 Temperature 98.1 F 98.0 F Temperature Source Core Core Pulse Rate 120 H 119 H 133 H Respiratory Rate 18 18 18 Respiratory Effort Respiratory Depth Respiratory Pattern Blood Pressure 81/40 L 81/40 L Blood Pressure Mean 53 53 Pulse Ox 94 95 95 Oxygen Delivery Method Mechanical Ventilator Mechanical Ventilator Oxygen Flow Rate (L/min) Fraction of Inspired Oxygen (FIO2) 50 50 50 12/28/24 02:41 12/28/24 03:00 12/28/24 03:35 Temperature 97.4 F L 97.3 F L 97.6 F L Temperature Source Core Core Core Pulse Rate 126 H 108 H 104 H Respiratory Rate 21 H 18 18 Respiratory Effort Respiratory Depth Respiratory Pattern Blood Pressure 101/58 L 106/64 58/42 L Blood Pressure Mean 72 78 47 Pulse Ox 100 98 99 Oxygen Delivery Method Mechanical Ventilator Mechanical Ventilator Mechanical Ventilator Oxygen Flow Rate (L/min) Fraction of Inspired Oxygen (FIO2) 50 50 50 12/28/24 04:02 Temperature 97.3 F L Temperature Source Core Pulse Rate 98 Respiratory Rate 18 Respiratory Effort Respiratory Depth Respiratory Pattern Blood Pressure 101/45 L Blood Pressure Mean 63 Pulse Ox 99 Oxygen Delivery Method Mechanical Ventilator Oxygen Flow Rate (L/min) Fraction of Inspired Oxygen (FIO2) 50 Weight Weight: 128 lb 1.417 oz Body Mass Index (BMI) 21.3 Physical Exam Narrative Physical Examination: General: Patient does awaken occasionally to stimuli but is sedated and intubated, not markedly alert, unable to answer orientation questions, seated upright in ED bed, respiratory status stabilized, currently on norepinephrine with blood pressure stable as well. Skin: Normal color, normal turgor, no icterus, no cyanosis except occasional stage ecchymoses, abrasion. HEENT: AT/NC, EOM unable to be assessed given intubated sedated status, PERRLA, dry MM, intubated, no carotid bruits although difficult assessment given referred sounds given ventilated status, no marked JVD noted. Lungs: Diminished, greater bases, right greater than left, intubated, sedated, respiratory distress significantly improved since initial ED arrival, occasional end expiratory wheeze but significantly lessened from the initial ED evaluation noted, no markedly appreciated rales or rhonchi. Heart: Mildly tachycardic with regular rhythm; no gallop, rub audible. Abdomen: Soft, NTTP, ND, mildly hypoactive BS, no appreciated HSM. Extremities: No cyanosis, clubbing, or edema. Neurological: Patient does awaken occasionally to stimuli but is sedated and intubated, not markedly alert, unable to answer orientation questions, seated upright in ED bed, respiratory status stabilized, currently on norepinephrine with blood pressure stable as well, cognitive function not baseline intact, pupils equally reactive to light and accommodation, given status strength accordingly severely globally decreased. Psychiatric: Affect appears flat, sedated, no acute evidence of depressive or anxiety feelings but does have underlying history. Results Lab / Micro Data 12/28/24 01:35 12/28/24 01:35 Labs: Laboratory Results - last 24 hr 12/28/24 01:35: WBC 12.3 H, RBC 4.06 L, Hgb 12.8, Hct 41.6, MCV 102.5 H, MCH 31.5, MCHC 30.8 L, RDW Std Deviation 49.8 H, RDW Coeff of Mark 13.2, Plt Count 241, MPV 9.7, Immature Gran % (Auto) 1.200 H, Neut % (Auto) 26.4 L, Lymph % (Auto) 60.0 H, [place] % (Auto) 7.7, Eos % (Auto) 4.1, Baso % (Auto) 0.6, Absolute Neuts (auto) 3.2, Absolute Lymphs (auto) 7.37 H, Nucleated RBC % 0, Differential Comment SCANNED, Diff Path Review May , Reactive Lymphocytes 1+, PT 13.1, INR 1.0, APTT 24.4, Sodium 138, Potassium 3.8, Chloride 102, Carbon Dioxide 13.7 L, Anion Gap 23 H, BUN 15, Creatinine 1.06, Estim Creat Clear Calc 35.55 L, Est GFR (MDRD) Non-Af 52 L, BUN/Creatinine Ratio 14.4, Glucose 269 H, Lactic Acid 9.6 H*, Calcium 9.3, Total Bilirubin < 0.15, AST 77 H, ALT 25, Alkaline Phosphatase 80, Troponin T High Sens 35 H, Total Protein 6.4, Albumin 4.1, Globulin 2.3, Albumin/Globulin Ratio 1.8 12/28/24 01:58: Urine Color Yellow, Urine Clarity Clear, Urine pH 6.5, Ur Specific [place] 1.010, Urine Protein 30 H, Urine Glucose (UA) Normal, Urine Ketones Negative, Urine Occult Blood 25 H, Urine Nitrite Negative, Urine Bilirubin Negative, Urine Urobilinogen Normal, Ur Leukocyte Esterase Negative, Urine RBC 0 SEEN, Urine WBC 0 SEEN, Ur Squamous Epith Cells 0 SEEN, Urine Bacteria 0 SEEN, Urine Mucus 0 SEEN Micro: Microbiology 12/28/24 01:58 Mucosa - Nasopharyngeal SARS-CoV-2, Influenza & RSV (PCR) - Final ABG Data ABG results: ABG 12/28/24 02:16 Specimen Type ART Sample Site R Radial pH 7.03 L* Bicarbonate Actual 13.2 L Total CO2 15 Base Excess -18 L O2 Saturation 92 L O2 % 50.0 ABG pCO2 50.7 H ABG pO2 93 Neal Test Positive Respiration Rate 18 O2 Delivery Device Adult Vent Vent Mode AC Tidal Volume 400.0 POC PEEP 5 Crit Call To/Read Back Yes Blood Gas Notified Whom andreea Blood Gas Notified Time 02:18:22 Imaging Radiology Impression Chest X-Ray 12/28/24 01:26 IMPRESSION: Suspect right lung base pneumonia. Follow up imaging recommended. Reading Location: [place] [id number] Assessment & Plan Assessment/Plan (1) Septic shock: PLAN: Plan The patient is an 84 y/o F w/ PMHx: CKD stage II per GFR trending, Rheumatoid arthritis, Severe stenosis R subclavian, Chronic headaches, Anxiety and Depression, GERD w/ Hx GI bleed, COPD, Former tobacco use, Chronic mild cognitive impairment, Hx VTE (DVT), Nonobstructive CAD, LV dysfunction, Chronic noromcytic anemia who presents to the [facility] ED on 12/28/2024 with history of progressively worsening dyspnea over the last 12 to 24 hours worsening at approximately 12:30 PM on 12/27/2024 with increased work of breathing and accessory muscle usage just prior to arrival prompting ED evaluation. #1. Acute Septic Shock secondary to Acute Hypoxic and Hypercarbic Respiratory Failure secondary to Acute R sided Pneumonia Community Acquired and Acute on Chronic COPD exacerbation with significant metabolic acidosis (tachycardic, tachypnea, hypotension, evidence of respiratory failure, source known, significant lactic acidosis): Will admit to the ICU, will consult chemical waste management technician per protocol, will continue initiated norepinephrine in the ED, will continue to trend lactic acid for cellulitic protocol, will continue intubated and sedated status pending chemical waste management technician evaluation, will repeat ABG in 1-2 hours following intubation, will maintain on ATC duonebs, PRN albuterol, will maintain on IV methylprednisolone, given severity of presentation will maintain onBSA w/ IV Vanc and Zosyn, MRSA screen requested, HOB, IS parameters, will obtain sputum Cx, respiratory viral panel, urine antigens, blood culture x 2 pending per ED. #2. Hyperglycemia without diabetic history: Admission glucose 269, possibly stress response given acute presentation, to be cautious however hemoglobin A1c requested, hydroxybutyrate acid requested given presentation concerns. #3. Nonobstructive CAD with mildly elevated troponin, indeterminate likely secondary to acute presentation #1 with hypoxemia, hypotension: 06/10/24 cardiac catheterization with minimal coronary artery disease and mild LV dysfunction with severe hypertension with EF 50% at that time, ECHO prior to that 04/2024 had noted decreased EF 35% with severe global hypokinese LV, mild to moderate MVI. Will continue baby aspirin, statin, holding hypertensive regimen given low BP in the ED. #4. Severe stenosis of the right subclavian: Imaging studies noting these findings had been discussed per Dr. Rojas with vascular surgeon, Dr. Ian, with planned continued HTN regimen, monitoring only given asymptomatic as noted per most recent cardiology visit 09/20/24. Given current presentation as noted above we will hold hypertensive regimen temporarily. #5. Chronic mild cognitive impairment: Noted in chart history, unclear exact etiology: Complicates presentation, maintain on fall precautions, PT/OT/case management consulted for discharge planning. #6. Chronic Kidney Disease Stage II per GFR trending: Admission BUN/Cr 15/1.06, GFR 52, baseline renal function primarily 0.7-0.9, repeat BMP in AM. #7. Chronic normocytic anemia, currently MCV consistent with macrocytic anemia but previously primarily normocytic range: Admission hemoglobin 12.8, MCV 102.5, baseline hemoglobin more recently 11-12 range but has vacillated and been 9-10 prior, will continue to trend CBC. #8. Hypertension: Given lower BP in the ED will temporally hold metoprolol and losartan with resumption once clinically appropriate. #9. Hyperlipidemia: Will continue patient on statin therapy. #10. GERD with history of GI bleed: Will continue patient on PPI and sucralfate home regimen. #11. Rheumatoid arthritis: Noted history, per current list not on any rheumatological medication, encourage continued follow-up outpatient with rheumatology as previously arranged. #12. Anxiety and depression: Will continue patient home duloxetine home regimen, encourage continued outpatient follow-up as previously arranged. #13. Former tobacco use: Encourage continued tobacco cessation. #14. History of VTE: Patient with history of DVT, maintained on chemoprophylaxis as noted. #15. DVT prophylaxis: Lovenox cautiously given history of GI bleed. #16. CODE status: Patient MABLE is her daughter and who are present. She did prior have DNR-CCA with intubation and without intubation statuses noted in the system. Upon ED arrival patient was changed to Full Code status and she was intubation as noted. Again, discussed CODE status at length including difference between FULL code, DNR-CCA and DNR-CC status to ascertain if in fact they wanted her full code or DNR-CCA with intubation. Following discussions about the differences in these status, requested Full Code. Her status and age with prognosis concept was discussed with family if she were to have cardiac arrest. Advanced Care Planning Face to Face Time: 16 minutes. Charges/Coding Visit Charges Inpatient E&M: 15879 Init Hosp L3 Procedures Hospitalists Procedures: 83767 Advncd Care Plan 30 Min
[2024-12-28 04:29] LABS: Troponin T High Sens 2 HR 403 ng/L (<=14)
--- OUTSIDE RECORDS SUMMARY | 2024-12-28 04:49 | XMS RPT_ITS | CCD ---
Author Organization [facility] Care Team Providers Care Imaging Nurse Name Role Phone DEVINIRIS Unavailable Unavaila ble Brandi MCKEON, Moshe E Unavailable Brandi MCKEON, Moshe E Unavailable Rufener PT, Rico Unavailable Sergio Bailey MD Primary Care Provider Brandi MCKEON, Moshe E Unavailable Brandi MCKEON, Moshe E Unavailable Rufener PT, Rico Unavailable Sergio Bailey MD Primary Care Provider Brandi MCEKON, Moshe E Unavailable Rufener PT, Rico Unavailable Sergio Bailey MD Primary Care Provider Brandi MCKEON, Moshe E Unavailable Brandi MCKEON, Moshe E Unavailable Rufener PT, Rico Unavailable Sergio Bailey MD Primary Care Provider [phone] Dr. Sergoi Bailey Primary Care Provider [phone] Dr. Jean Morales Emergency Provider Dr. Valentina [...] Arthur Other Provider JAXON Womack Other Provider [phone] JAXON Muñoz Other Provider AIDA Le Other Provider AIDA Gaytan Other Provider Friend, Dr. Santamaria Attending Provider [phone] Dr. Andrew Langston Attending Provider Dr. García [...] Care Unavailable KVNG, RADHA B Attending Unavailable KVNG, RADHA B Referring Unavailable BAILEY, SERGIO A Primary Care Unavailable BAILEY, SERGIO Primary Care Unavailable BRIT MCKEON~[id number], NAROUZE SAMER Admitting Unavailable BRIT MCKEON~[id number], NAROUZE SAMER Attending Unavailable BAILEY, SERGIO Primary Care Unavailable BRIT MCKEON~[id number], NAROUZE SAMER Admitting Unavailable NAROUZE MD~[id number], NAROUZE SAMER Attending Unavailable PERRY MD~[id number], PERRY MOON Attending Unavailable [facility] Unavailable PERRY ~[id number], PERRY MOON Admitting Unavailable DELANCEY, SERGIO Primary Care Unavailable NAROUZE MD~[id number], NAROUZE SAMER Attending Unavailable NAROUZE MD~[id number], NAROUZE SAMER Admitting Unavailable [facility] SERGIO Primary Care Unavailable NAROUZE MD~[id number], NAROUZE SAMER Attending Unavailable NAROUZE MD~[id number], NAROUZE SAMER Admitting Unavailable NAROUZE MD~[id number], NAROUZE SAMER Attending Unavailable NAROUZE MD~[id number], NAROUZE SAMER Admitting Unavailable DELANCEY, SERGIO Primary Care Unavailable VICKY MCKEON~[id number], PERRY MOON Attending Unavailable [facility] SERGIO Primary Care Unavailable VICKY MCKEON~[id number], PERRY MOON Admitting Unavailable VICKY MCKEON~[id number], PERRY MOON Attending Unavailable DELANCEY, SERGIO Primary Care Unavailable VICKY MCKEON~[id number], PERRY MOON Admitting Unavailable Parveen MCKEON, Sergio Jensen Primary Care Provider [phone] Franc Quezada MD Primary Care Provider Franc [...] Unavailable Franc Quezada MD Primary Care Provider [phone] Dr. Ashish Rojas MD Attending Provider Dr. [...] Provider Franc Quezada MD Referring Provider Irene COWAN, Dr. Santamaria Attending Provider Irene COWAN, Dr. [...] Primary Care Unavailable Jean Morales Attending Unavailable Ujdi, Chalon Primary Care Unavailable Judi, Chalon Attending Unavailable Nilesh Gaona Consulting Unavailable Nilesh Gaona Admitting Unavailable [facility] Attending Unavailable Judi, Chalon Primary Care Unavailable Yecenia Pace Referring Unavailable Yecenia Pace Attending Unavailable Judi, Chalon Primary Care Unavailable Judi, Chalon Primary Care Unavailable Bob, Perkins Referring Unavailable Bob, Ashish Attending Unavailable Judi, Chalon Primary Care Unavailable Walter WARP SPINNER, Parisa Attending Unavailable Walter WARP SPINNER, Parisa Referring Unavailable Judi, Chalon Primary Care Unavailable Walter WARP SPINNER, Parisa Attending Unavailable Walter WARP SPINNER, Parisa Referring Unavailable Judi, Chalon Primary Care Unavailable Walter WARP SPINNER, Parisa Attending Unavailable Walter WARP SPINNER, Parisa Referring Unavailable Judi, Chalon Primary Care [...] Allergy 8 Other: See Comments [facility] Repository (1 source) NO KNOWN ALLERGIES; Translations: [NO KNOWN ALLERGIES] Propensity to adverse reactions to drug (disorder) [facility] Repository Medications Current Medications Medication Drug [...] on above: Take 6 tablets by mo [facility] 1 hour before dental procedure and 2 [...] Active docusate sodium 50 mg / sennosides, group home 8.6 mg oral tablet (4 sources) Start: [...] mg by mouth once daily. mv-mn/folic acid/vit K/vzzm441 (ALIVE ONCE DAILY WOMEN 50 PLUS ORAL) (9 sources) mv-mn/folic acid /vit K/nglx129 (ALIVE ONCE DAILY WOMEN 50 PLUS ORAL) Take by mouth. Active mv-mn/folic acid /vit K/jeic191 (ALIVE ONCE DAILY WOMEN 50 PLUS ORAL) [...] as needed for Nausea/Vomiting. polyethylene glycol 3350 77216 mg powder for oral solution (4 sources) [...] mouth . Take 1 capsule by mo [facility] daily at bedtime for 5 days. Completed/Discontinued [...] on above: Take 2 tablets by mo [facility] every 8 hours. Take 2 tablets by mo [facility] every 8 hours as needed for pain. [...] Comment on above: [facility] needed (migraine). acetaminophen 300 mg / butalbital 50 mg / caffeine 40 mg oral capsule (20 sources) Barbiturate, Central Nervous System Stimulant, Methylxanthine Start: 05-01-20 End: 02-22-20 acetaminophen 300 mg-caffeine 40 mg-butalbital 50 mg (FIORICET) per capsule Take by mouth. 0 05/01/2021 02/21/2022 Discontinued Start: 05-01-2021 End: 01-25-2023 Xzccughxkb-Txblkstphxjbv-Umg f (Fioricet) 50-300-40 mg capsule Discontinued 1 NMA PO THREE TIMES A DAY as needed for pain May 01, 2021 12:00am January 25, 2023 8:19pm Comment on above: Take by mouth. 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 CURRENT DRUG THERAPY] Onset: 4 Episodic Other aftercare (1 source) intermediate (current) use of opiate analgesic; Translations: [MACHINIST SUPERVISOR OUTSIDE CURRNT USE OPIATE ANALGES] Onset: 4 Episodic [...] (20 sources) Drug therapy finding; Translations: [Other intermediate manager (current) drug therapy] Onset: 7 03-02-2017 Episodic Other aftercare (1 source) intermediate (current) use of non-steroidal anti-inflammatories (NSAID); Translations: [FPC USE NSAID] Onset: 4 Episodic Other aftercare (1 source) intermediate (current) use of aspirin; Translations: [MACHINIST SUPERVISOR OUTSIDE CURRENT USE OF ASPIRIN] Onset: 4 Episodic [...] Auto (Unsp spec) [#/Vol] 1.83 10*3/uL 0.83-4.51 [facility] Absolute neutrophil countOrd ered By: Yecenia Pace on 11-13-2024 Neutrophils (Bld) [#/Vol] 2.5 10*3/uL 2.0-7.7 [facility] Automated lymphocyte count a s percentage of total leukocytesOrdered By: Yecenia Pace on 11-13-2024 Lymphocytes/100 WBC Auto (Unsp spec) 34.0 % 19-41 [facility] Basophil percentageOrdered B y: Yecenia Pace on 11-13-2024 Basophils/100 WBC (Bld) 0.7 % 0-1 [facility] CBC W/Diff, Automatedon 10-31 Absolute Lymph 1.83 X10 3/uL Normal 0.83-4.51 [facility] Comment on above: Performed By: #### L 100.0100 ####[facility] [address] [place], [address] Absolute Neut 2.5 X10 3/uL Normal 2.0-7.7 [facility] Comment on above: Performed By: #### L 100.0100 ####[facility] [address] [place], [address] Basophils/100 WBC (Bld) 0.7 % Normal 0-1 [facility] Comment on above: Performed By: #### L 100.0100 ####[facility] [address] [place], [address] Eosinophils/100 WBC (Bld) 8.2 % High 0-5 [facility] Comment on above: Performed By: #### L 100.0100 ####[facility] [address] [place], [address] Erythrocyte distribution width (RBC) [Ratio] 13.6 % Normal 11.6-14.6 [facility] Comment on above: Performed By: #### L 100.0100 ####[facility] [address] [place], [address] Hematocrit (Bld) [Volume fraction] 35.9 % Low 37-47 [facility] Comment on above: Performed By: #### L 100.0100 ####[facility] [address] [place], [address] Hemoglobin (Bld) [Mass/Vol] 11.7 g/dL Low 12.0-15.0 [facility] Comment on above: Performed By: #### L 100.0100 ####[facility] [address] [place], [address] IG% 0.200 Normal 0.0-0.9 [facility] Comment on above: Result Comment: IG% - Immature Granulocytes (promyelocytes, myelocytes andmetamyelocytes) > 1% indicates that a LEFT SHIFT is Present. Performed By: #### L 100.0100 ####[facility] [address] [place], [address] Lymphocytes/100 WBC (Bld) 34.0 % Normal 19-41 [facility] Comment on above: Performed By: #### L 100.0100 ####[facility] [address] [place], [address] MCH (RBC) [Entitic mass] 31.7 pg Normal 27.0-32.0 [facility] Comment on above: Performed By: #### L 100.0100 ####[facility] [address] [place], [address] MCHC (RBC) [Mass/Vol] 32.6 g/dL Normal 32-36 [facility] Comment on above: Performed By: #### L 100.0100 ####[facility] [address] [place], [address] MCV (RBC) [Entitic vol] 97.3 fL Normal 81-99 [facility] Comment on above: Performed By: #### L 100.0100 ####[facility] [address] [place], [address] Monocytes/100 WBC (Bld) 10.8 % High 0-10 [facility] Comment on above: Performed By: #### L 100.0100 ####[facility] [address] [place], [address] Neutrophils/100 WBC (Bld) 46.1 % Low 47-70 [facility] Comment on above: Performed By: #### L 100.0100 ####[facility] [address] [place], [address] Nucleated RBC (Bld) [#/Vol] 0 10*3/uL Normal 0-5 [facility] Comment on above: Performed By: #### L 100.0100 ####[facility] [address] [place], [address] Platelet mean volume (Bld) [Entitic vol] 9.2 fL Normal 6.2-12.0 [facility] Comment on above: Performed By: #### L 100.0100 ####[facility] [address] [place], [address] Platelets (Bld) [#/Vol] 215 10*3/uL Normal 150-450 [facility] Comment on above: Performed By: #### L 100.0100 ####[facility] [address] [place], [address] RBC (Bld) [#/Vol] 3.69 10*6/uL Low 4.2-5.4 [facility] Comment on above: Performed By: #### L 100.0100 ####[facility] [address] [place], [address] RDW SD 48.2 fl High 35.1-43.9 [facility] Comment on above: Performed By: #### L 100.0100 ####[facility] [address] [place], [address] WBC (Bld) [#/Vol] 5.4 10*3/uL Normal 4.4-11.0 [facility] Comment on above: Performed By: #### L 100.0100 ####[facility] [address] [place], [address] Eosinophil percentageOrdered By: Yecenia Pace on 11-13-2024 Eosinophils/100 WBC (Bld) 8.2 % High 0-5 [facility] Erythrocyte distribution wid th ratioOrdered By: Yecenia Pace on 11-13-2024 Erythrocyte distribution width (RBC) [Ratio] 13.6 % 11.6-14.6 [facility] Erythrocyte distribution wid th standard deviationOrdered By: Yecenia Pace on 11-13-2024 Erythrocyte distribution width (RBC) [Ratio] 48.2 fl High 35.1-43.9 [facility] Gastroenterology Visit Repor ton 11-13-2024 Gastroenterology Visit Report Normal [facility] Hematocrit Auto (Bld) [Volum e fraction]Ordered By: Yecenia Pace on 11-13-2024 Hematocrit (Bld) [Volume fraction] 35.9 % Low 37-47 [facility] Hemoglobin measurementOrdere d By: Yecenia Pace on 11-13-2024 Hemoglobin (Bld) [Mass/Vol] 11.7 g/dL Low 12.0-15.0 [facility] Immature granulocytes/100 WB C Auto (Bld)Ordered By: Yecenia Pace on 11-13-2024 Immature granulocytes/100 WBC (Bld) 0.200 % 0.0-0.9 [facility] Comment on above: IG% - Immature Granu locytes (promyelocytes, myelocytes and metamyelocytes) > 1% indicates that a LEFT SHIFT is Present. MCV (mean corpuscular volume ) determinationOrdered By: Yecenia Pace on 11-13-2024 MCV (RBC) [Entitic vol] 97.3 fL 81-99 [facility] Mean corpuscular hemoglobin (MCH) determinationOrdered By: Yecenia Pace on 11-13-2024 MCH (RBC) [Entitic mass] 31.7 pg 27.0-32.0 [facility] Mean corpuscular hemoglobin concentration (MCHC) determinationOrdered By: Yecenia Pace on 11-13-2024 MCHC (RBC) [Mass/Vol] 32.6 g/dL 32-36 [facility] Mean platelet volume determi nationOrdered By: Yecenia Pace on 11-13-2024 Platelet mean volume (Bld) [Entitic vol] 9.2 fL 6.2-12.0 [facility] Monocyte percentageOrdered B y: Yecenia Pace on 11-13-2024 Monocytes/100 WBC (Bld) 10.8 % High 0-10 [facility] Neutrophil percentageOrdered By: Yecenia Pace on 11-13-2024 Neutrophils/100 WBC (Bld) 46.1 % Low 47-70 [facility] Nucleated red blood cell per centageOrdered By: Yecenia Pace on 11-13-2024 Nucleated RBC/100 WBC (Bld) [Ratio] 0 % 0-5 [facility] Platelet countOrdered By: Silvana lizedgar Katelynn on 11-13-2024 Platelets (Bld) [#/Vol] 215 10*3/uL 150-450 [facility] RBC Auto (Bld) [#/Vol]Ordere d By: Yecenia Pace on 11-13-2024 RBC (Bld) [#/Vol] 3.69 10*6/uL Low 4.2-5.4 [facility] White blood cell (WBC) count Ordered By: Yecenia Pace on 11-13-2024 WBC (Bld) [#/Vol] 5.4 10*3/uL 4.4-11.0 [facility] Chest without Contraston Chest without Contrast Normal [facility] Anion gap in Serum or Plasma Ordered By: Vilma Vasquez on 09-20-2024 Anion gap [Moles/Vol] 9 mmol/L 5- [facility] BUN/creatinine ratioOrdered By: Vilma Vasquez on 09-20-2024 Urea nitrogen/Creatinine [Mass ratio] 14.3 mg/mg - [facility] Basic Metabolic Profile (BMP )on 09-20-2024 BUN/CRE 14.3 RATIO Normal 04-21 [facility] Comment on above: Performed By: #### L 503.7505, L500.2500 ####[facility] [address] [place], [address] Calcium [Mass/Vol] 9.9 mg/dL Normal 7.6-11.0 [facility] Comment on above: Performed By: #### L 503.7505, L500.2500 ####[facility] [address] [place], [address] Chloride [Moles/Vol] 102 mmol/L Normal 98-108 [facility] Comment on above: Performed By: #### L 503.7505, L500.2500 ####[facility] [address] [place], [address] CO2 [Moles/Vol] 27.4 mmol/L Normal 21.0-32.0 [facility] Comment on above: Performed By: #### L 503.7505, L500.2500 ####[facility] [address] [place], [address] Creatinine [Mass/Vol] 0.80 mg/dL Normal 0.70-1.20 [facility] Comment on above: Performed By: #### L 503.7505, L500.2500 ####[facility] [address] [place], [address] GAP 9 Normal 5-15 [facility] Comment on above: Performed By: #### L 503.7505, L500.2500 ####[facility] [address] [place], [address] GFR/1.73 sq M.predicted among non-blacks MDRD (S/P/Bld) [Vol rate/Area] 72 mL/min/{1.73_m2} Normal >60 [facility] Comment on above: Result Comment: mL/m in/1.73m2 CKD-EPI Creatinine Equation (2020) Performed By: #### L 503.7505, L500.2500 ####[facility] [address] [place], [address] Glucose [Mass/Vol] 101 mg/dL High 70-99 [facility] Comment on above: Performed By: #### L 503.7505, L500.2500 ####[facility] [address] [place], [address] Potassium [Moles/Vol] 4.5 mmol/L Normal 3.3-5.1 [facility] Comment on above: Performed By: #### L 503.7505, L500.2500 ####[facility] [address] [place], [address] Sodium [Moles/Vol] 138 mmol/L Normal 133-145 [facility] Comment on above: Performed By: #### L 503.7505, L500.2500 ####[facility] [address] [place], [place], [address] Urea nitrogen [Mass/Vol] 12 mg/dL Normal 4-19 [facility] Comment on above: Performed By: #### L 503.7505, L500.2500 ####[facility] [address] [place], [address] Carbon dioxide, total [Moles /volume] in Central venous bloodOrdered By: Vilma Vasquez on 09-20-2024 CO2 [Moles/Vol] 27.4 mmol/L 21.0-32.0 [facility] Cardiology Visit Reporton Cardiology Visit Report Normal [facility] Chloride assayOrdered By: Rohini Vasquez on 09-20-2024 Chloride [Moles/Vol] 102 mmol/L 98-108 [facility] GFR/1.73 sq M.predicted dean g non-blacks MDRD (S/P/Bld) [Vol rate/Area]Ordered By: Vilma Vasquez on 09-20-2024 Estimated GFR (MDRD) Non-Af Amer 72 >60 [facility] Comment on above: mL/min/1.73m2 CKD-EP I Creatinine Equation (2020) Glomerular filtration rate ( GFR) estimation/1.73 sq m using serum, plasma, or whole bOrdered By: Vilma Vasquez on 09-20-2024 GFR/1.73 sq M.predicted among non-blacks MDRD (S/P/Bld) [Vol rate/Area] 72 mL/min/{1.73_m2} >60 [facility] Comment on above: mL/min/1.73m2 CKD-EP I Creatinine Equation (2020) L503.7505on 09-20-2024 Natriuretic peptide B (Bld) [Mass/Vol] 417 pg/mL Normal <=1800 [facility] Comment on above: Result Comment: Hear t Failure Unlikely: < 300 pg/mLHeart Failure Likely< 50 Years: > 450 pg/mL50-75 Years: > 900 pg/mL>75 Years: > 1800 pg/mL Performed By: #### L 503.7505, L500.2500 ####[facility] [address] [place], [address] Laboratory - Chemistry and C hemistry - challengeOrdered By: Vilma Vasquez on 09-20-2024 Natriuretic peptide B (Bld) [Mass/Vol] 417 pg/mL <1800 [facility] Comment on above: Heart Failure Unlike ly: < 300 pg/mLHeart Failure Likely< 50 Years: > 450 pg/mL50-75 Years: > 900 pg/mL>75 Years: > 1800 pg/mL Potassium (Unsp spec) [Mass/ Vol]Ordered By: Vilma Vasquez on 09-20-2024 Potassium [Moles/Vol] 4.5 mmol/L 3.3-5.1 [facility] Potassium measurement (mass/ volume)Ordered By: Vilma Vasquez on 09-20-2024 Potassium (Unsp spec) [Mass/Vol] 4.5 mmol/L 3.3-5.1 [facility] Serum creatinine measurement (mass/volume)Ordered By: Vilma Vasquez on 09-20-2024 Creatinine [Mass/Vol] 0.80 mg/dL 0.70-1.20 [facility] Serum glucose measurement (m ass/volume)Ordered By: Vilma Vasquez on 09-20-2024 Glucose [Mass/Vol] 101 mg/dL High 70-99 [facility] Serum or plasma calcium anthony urement (mass/volume)Ordered By: Vilma Vasquez on 09-20-2024 Calcium [Mass/Vol] 9.9 mg/dL 7.6-11.0 [facility] Serum or plasma urea nitroge n measurement (mass/volume)Ordered By: Vilma Vasquez on 09-20-2024 Urea nitrogen [Mass/Vol] 12 mg/dL - [facility] Sodium levelOrdered By: Gildardo Vasquez on 09-20-2024 Sodium [Moles/Vol] 138 mmol/L 133-145 [facility] UA DIP, URINE (POC)on 2024 BILIRUBIN UA (POCT) Negative Negative [facility] CLARITY UA (POCT) Slightly Cloudy [facility] COLOR UA (POCT) Yellow [facility] GLUCOSE UA (POCT) Negative Negative mg/dL [facility] Hemoglobin Ql (U) Trace-intact Abnormal Negative [facility] Interpretation and review of laboratory results Abnormal [facility] KETONE UA (POCT) Negative Negative mg/dL [facility] LEUKOCYTES UA (POCT) Negative Negative [facility] NITRITE UA (POCT) Negative Negative [facility] PH UA (POCT) 7 4.5 - 8.0 [facility] Protein Ql (U) Trace Abnormal Negative mg/dL [facility] SPECIFIC GRAVITY UA (POCT) 1.015 1.005 - 1.030 [facility] UROBILINOGEN UA (POCT) 0.2 Candida l E.U./dL [facility] Location:[facility], [address] [place] [address], [address] [facility] POINT OF CARE [facility] UA DIP, URINE (POC)on 2024 BILIRUBIN UA (POCT) Negative Negative [facility] CLARITY UA (POCT) Cloudy [facility] COLOR UA (POCT) Yellow [facility] GLUCOSE UA (POCT) Negative Negative mg/dL [facility] Hemoglobin Ql (U) Small Abnormal Negative [facility] Interpretation and review of laboratory results Abnormal [facility] KETONE UA (POCT) Negative Negative mg/dL [facility] LEUKOCYTES UA (POCT) Large Abnormal Negative [facility] NITRITE UA (POCT) Negative Negative [facility] PH UA (POCT) 6.5 4.5 - 8.0 [facility] Protein Ql (U) 100 mg/dL Abnormal Negative [facility] SPECIFIC GRAVITY UA (POCT) 1.025 1.005 - 1.030 [facility] UROBILINOGEN UA (POCT) 0.2 Candida l E.U./dL [facility] Location:[facility], [address] [place] [address], [address] [facility] POINT OF CARE [facility] UA DIP, URINE (POC)on 2024 BILIRUBIN UA (POCT) Negative Negative [facility] CLARITY UA (POCT) Cloudy [facility] COLOR UA (POCT) Yellow [facility] GLUCOSE UA (POCT) Negative Negative mg/dL [facility] Hemoglobin Ql (U) Moderate Abnormal Negative [facility] Interpretation and review of laboratory results Abnormal [facility] KETONE UA (POCT) Trace Negative mg/dL [facility] LEUKOCYTES UA (POCT) Small Abnormal Negative [facility] NITRITE UA (POCT) Negative Negative [facility] PH UA (POCT) 6.5 4.5 - 8.0 [facility] Protein Ql (U) 100 mg/dL Abnormal Negative [facility] SPECIFIC GRAVITY UA (POCT) 1.020 1.005 - 1.030 [facility] UROBILINOGEN UA (POCT) 0.2 Candida l E.U./dL [facility] Location:[facility], [address] [place] [address], [id number] [place] [address] POINT OF CARE [facility] Basic Metabolic Profile (BMP )on 07-18-2024 BUN Normal 7-18 [facility] Comment on above: Result Comment: Canc elled via OM: Order cancelled - Patient discharged Performed By: #### L 500.2500, L100.0100 ####[facility] [address] [place], [address] BUN/CRE Normal 10-20 [facility] Comment on above: Result Comment: Canc elled via OM: Order cancelled - Patient discharged Performed By: #### L 500.2500, L100.0100 ####[facility] [address] [place], [address] CA,Total Normal 8.5-10.1 [facility] Comment on above: Result Comment: Canc elled via OM: Order cancelled - Patient discharged Performed By: #### L 500.2500, L100.0100 ####[facility] [address] [place], [address] CL Normal 98-107 [facility] Comment on above: Result Comment: Canc elled via OM: Order cancelled - Patient discharged Performed By: #### L 500.2500, L100.0100 ####[facility] [address] [place], [address] CO2 Normal 21.0-32.0 [facility] Comment on above: Result Comment: Canc elled via OM: Order cancelled - Patient discharged Performed By: #### L 500.2500, L100.0100 ####[facility] [address] [place], [address] CREAT,SERUM Normal 0.55-1.02 [facility] Comment on above: Result Comment: Canc elled via OM: Order cancelled - Patient discharged Performed By: #### L 500.2500, L100.0100 ####[facility] [address] [place], [address] EST GFR Normal >60 [facility] Comment on above: Result Comment: Canc elled via OM: Order cancelled - Patient discharged Performed By: #### L 500.2500, L100.0100 ####[facility] [address] [place], [address] EST GFR - AA Normal >60 [facility] Comment on above: Result Comment: Canc elled via OM: Order cancelled - Patient discharged Performed By: #### L 500.2500, L100.0100 ####[facility] [address] [place], [address] GAP Normal 5-15 [facility] Comment on above: Result Comment: Canc elled via OM: Order cancelled - Patient discharged Performed By: #### L 500.2500, L100.0100 ####[facility] [address] [place], [address] GLU Normal 74-106 [facility] Comment on above: Result Comment: Canc elled via OM: Order cancelled - Patient discharged Performed By: #### L 500.2500, L100.0100 ####[facility] [address] [place], [address] Potassium Normal 3.5-5.1 [facility] Comment on above: Result Comment: Canc elled via OM: Order cancelled - Patient discharged Performed By: #### L 500.2500, L100.0100 ####[facility] [address] [place], [address] Basic Metabolic Profile (BMP) Normal 136-145 [facility] Comment on above: Result Comment: Canc elled via OM: Order cancelled - Patient discharged Performed By: #### L 500.2500, L100.0100 ####[facility] [address] [place], [address] CBC W/Diff, Automatedon 07-03 Absolute Neut Normal 2.0-7.7 [facility] Comment on above: Result Comment: Canc elled via OM: Order cancelled - Patient discharged Performed By: #### L 500.2500, L100.0100 ####[facility] [address] [place], [address] HCT Normal 37-47 [facility] Comment on above: Result Comment: Canc elled via OM: Order cancelled - Patient discharged Performed By: #### L 500.2500, L100.0100 ####[facility] [address] [place], [address] HGB Normal 12.0-15.0 [facility] Comment on above: Result Comment: Canc elled via OM: Order cancelled - Patient discharged Performed By: #### L 500.2500, L100.0100 ####[facility] [address] [place], [address] MCH Normal 27.0-32.0 [facility] Comment on above: Result Comment: Canc elled via OM: Order cancelled - Patient discharged Performed By: #### L 500.2500, L100.0100 ####[facility] [address] [place], [address] MCHC Normal 32-36 [facility] Comment on above: Result Comment: Canc elled via OM: Order cancelled - Patient discharged Performed By: #### L 500.2500, L100.0100 ####[facility] [address] [place], [address] MCV Normal 81-99 [facility] Comment on above: Result Comment: Canc elled via OM: Order cancelled - Patient discharged Performed By: #### L 500.2500, L100.0100 ####[facility] [address] [place], [address] NEUT% Normal 47-70 [facility] Comment on above: Result Comment: Canc elled via OM: Order cancelled - Patient discharged Performed By: #### L 500.2500, L100.0100 ####[facility] [address] [place], [address] PLT Normal 150-450 [facility] Comment on above: Result Comment: Canc elled via OM: Order cancelled - Patient discharged Performed By: #### L 500.2500, L100.0100 ####[facility] [address] [place], [address] RBC Normal 4.2-5.4 [facility] Comment on above: Result Comment: Canc elled via OM: Order cancelled - Patient discharged Performed By: #### L 500.2500, L100.0100 ####[facility] [address] [place], [address] RDW CV Normal 11.6-14.6 [facility] Comment on above: Result Comment: Canc elled via OM: Order cancelled - Patient discharged Performed By: #### L 500.2500, L100.0100 ####[facility] [address] [place], [address] RDW SD Normal 35.1-43.9 [facility] Comment on above: Result Comment: Canc elled via OM: Order cancelled - Patient discharged Performed By: #### L 500.2500, L100.0100 ####[facility] [address] [place], [address] WBC Normal 4.4-11.0 [facility] Comment on above: Result Comment: Canc elled via OM: Order cancelled - Patient discharged Performed By: #### L 500.2500, L100.0100 ####[facility] [address] [place], [address] Chest PA and Lateralon 07-15 Chest PA and Lateral Normal [facility] Basic Metabolic Profile (BMP )on 07-11-2024 BUN Normal 7-18 [facility] Comment on above: Result Comment: Canc elled via OM: Order cancelled - Patient discharged Performed By: #### L 500.2500, L100.0100 ####[facility] [address] [place], [address] BUN/CRE Normal 10-20 [facility] Comment on above: Result Comment: Canc elled via OM: Order cancelled - Patient discharged Performed By: #### L 500.2500, L100.0100 ####[facility] [address] [place], [address] CA,Total Normal 8.5-10.1 [facility] Comment on above: Result Comment: Canc elled via OM: Order cancelled - Patient discharged Performed By: #### L 500.2500, L100.0100 ####[facility] [address] [place], [address] CL Normal 98-107 [facility] Comment on above: Result Comment: Canc elled via OM: Order cancelled - Patient discharged Performed By: #### L 500.2500, L100.0100 ####[facility] [address] [place], [address] CO2 Normal 21.0-32.0 [facility] Comment on above: Result Comment: Canc elled via OM: Order cancelled - Patient discharged Performed By: #### L 500.2500, L100.0100 ####[facility] [address] [place], [address] CREAT,SERUM Normal 0.55-1.02 [facility] Comment on above: Result Comment: Canc elled via OM: Order cancelled - Patient discharged Performed By: #### L 500.2500, L100.0100 ####[facility] [address] [place], [address] EST GFR Normal >60 [facility] Comment on above: Result Comment: Canc elled via OM: Order cancelled - Patient discharged Performed By: #### L 500.2500, L100.0100 ####[facility] [address] [place], [address] EST GFR - AA Normal >60 [facility] Comment on above: Result Comment: Canc elled via OM: Order cancelled - Patient discharged Performed By: #### L 500.2500, L100.0100 ####[facility] [address] [place], [address] GAP Normal 5-15 [facility] Comment on above: Result Comment: Canc elled via OM: Order cancelled - Patient discharged Performed By: #### L 500.2500, L100.0100 ####[facility] [address] [place], [address] GLU Normal 74-106 [facility] Comment on above: Result Comment: Canc elled via OM: Order cancelled - Patient discharged Performed By: #### L 500.2500, L100.0100 ####[facility] [address] [place], [address] Potassium Normal 3.5-5.1 [facility] Comment on above: Result Comment: Canc elled via OM: Order cancelled - Patient discharged Performed By: #### L 500.2500, L100.0100 ####[facility] [address] [place], [address] Basic Metabolic Profile (BMP) Normal 136-145 [facility] Comment on above: Result Comment: Canc elled via OM: Order cancelled - Patient discharged Performed By: #### L 500.2500, L100.0100 ####[facility] [address] [place], [address] CBC W/Diff, Automatedon 0 Absolute Neut Normal 2.0-7.7 [facility] Comment on above: Result Comment: Canc elled via OM: Order cancelled - Patient discharged Performed By: #### L 500.2500, L100.0100 ####[facility] [address] [place], [address] HCT Normal 37-47 [facility] Comment on above: Result Comment: Canc elled via OM: Order cancelled - Patient discharged Performed By: #### L 500.2500, L100.0100 ####[facility] [address] [place], [address] HGB Normal 12.0-15.0 [facility] Comment on above: Result Comment: Canc elled via OM: Order cancelled - Patient discharged Performed By: #### L 500.2500, L100.0100 ####[facility] [address] [place], [address] MCH Normal 27.0-32.0 [facility] Comment on above: Result Comment: Canc elled via OM: Order cancelled - Patient discharged Performed By: #### L 500.2500, L100.0100 ####[facility] [address] [place], [address] MCHC Normal 32-36 [facility] Comment on above: Result Comment: Canc elled via OM: Order cancelled - Patient discharged Performed By: #### L 500.2500, L100.0100 ####[facility] [address] [place], [address] MCV Normal 81-99 [facility] Comment on above: Result Comment: Canc elled via OM: Order cancelled - Patient discharged Performed By: #### L 500.2500, L100.0100 ####[facility] [address] [place], [address] NEUT% Normal 47-70 [facility] Comment on above: Result Comment: Canc elled via OM: Order cancelled - Patient discharged Performed By: #### L 500.2500, L100.0100 ####[facility] [address] [place], [address] PLT Normal 150-450 [facility] Comment on above: Result Comment: Canc elled via OM: Order cancelled - Patient discharged Performed By: #### L 500.2500, L100.0100 ####[facility] [address] [place], [address] RBC Normal 4.2-5.4 [facility] Comment on above: Result Comment: Canc elled via OM: Order cancelled - Patient discharged Performed By: #### L 500.2500, L100.0100 ####[facility] [address] [place], [address] RDW CV Normal 11.6-14.6 [facility] Comment on above: Result Comment: Canc elled via OM: Order cancelled - Patient discharged Performed By: #### L 500.2500, L100.0100 ####[facility] [address] [place], [address] RDW SD Normal 35.1-43.9 [facility] Comment on above: Result Comment: Canc elled via OM: Order cancelled - Patient discharged Performed By: #### L 500.2500, L100.0100 ####[facility] [address] [place], [address] WBC Normal 4.4-11.0 [facility] Comment on above: Result Comment: Canc elled via OM: Order cancelled - Patient discharged Performed By: #### L 500.2500, L100.0100 ####[facility] [address] [place], [address] Erythropoietinon 07-08-2024 ERYTHROPOIETIN 8.5 mIU/mL Normal 2.6-18.5 [facility] Comment on above: Result Comment: Truzip DxI 800 Immunoassay SystemValues obtained with different assay methods or kits cannotbe used interchangeably. Results cannot be interpreted asabsolute evidence of the presence or absence of malignantdisease.Performed at: [email or web address] [address] [id number] Director: David King PhD, Phone: [phone] Performed By: #### L 503.8533, L3100.1350, L100.0100, L503.0105 ####[facility] [address] [place], [address] Post Void Residual Bladderon 07-08-2024 Post Void Residual Bladder Normal [facility] CNOVon 07-05-2024 CNOV Office Visit (ORTHMN ) SANDIE HO ([id number]) 1940 F Date Time Provider Department 07/05/24 [...] was ordered. Patient is going down to [place] in a week or 2 and will get the ultrasound done and then follow-up one of the [facility] in [place]. In the meanwhile she was placed on [...] quad weakness (more content not included)... Normal [facility] No Panel Informationon 07-05 Radiology Study observation (narrative) [facility] XR HIP 3V PELV+ AP/LAT LTon 07-05-2024 [...] total hip arthroplasty without evidence of complication. Pony Edger: [facility] Transcribe Date/Time: Jul 05 2024 11:44A Dictated by : JONH FLYNN MD This examination was interpreted and the report reviewed and electronically signed by: JONH FLYNN MD on Jul 05 2024 11:44AM EST [id number] Normal [facility] XR KNEE 3V AP/LAT/MERCHANT L Ton 07-05-2024 [...] total knee arthroplasty without evidence of complication. 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 Pony Edger: [facility] Transcribe Date/Time: Jul 05 2024 11:44A Dictated by : JONH FLYNN MD This examination was interpreted and the report reviewed and electronically signed by: JONH FLYNN MD on Jul 05 2024 11:44AM [facility] DIVISION OF RADIOLOGY * * *Final Report* [...] lucency or fracture. DIVISION OF RADIOLOGY Provider, [facility] - 07/05/2024 * * *Final [...] total knee arthroplasty without evidence of complication. Pony Edger: [facility]B Transcribe Date/Time: Jul 05 2024 11:44A Dictated by : JONH FLYNN MD This examination was interpreted and the report reviewed and electronically signed by: JONH FLYNN MD on Jul 05 2024 11:44AM EST [facility] XR Knee AP and Lateral and M erchantsOrdered By: [facility] Provider on 07-05-2024 [facility] XR Pelvis and Hip - left AP and Lateral frogon 07-05-2024 IMPRESSION: Status post left total hip arthroplasty without evidence of complication. Pony Edger: [facility] Transcribe Date/Time: Jul 05 2024 11:44A [...] lumbar degenerative changes. DIVISION OF RADIOLOGY Provider, [facility] - 07/05/2024 * * *Final [...] total hip arthroplasty without evidence of complication. Pony Edger: [facility] Transcribe Date/Time: Jul 05 2024 11:44A Dictated by : JONH FLYNN MD This examination was interpreted and the report reviewed and electronically signed by: JONH FLYNN MD on Jul 05 2024 11:44AM EST [facility] Absolute neutrophil countOrd ered By: Franc Quezada on 07-04-2024 Neutrophils (Bld) [#/Vol] 6.6 10*3/uL 2.0-7.7 [facility] Basic Metabolic Profile (BMP )on 07-04-2024 BUN Normal 7-18 [facility] Comment on above: Result Comment: Canc elled via OM: Order cancelled - Patient discharged Performed By: #### L 500.2500, L100.0100 ####[facility] [address] [place], [address] BUN/CRE Normal 10-20 [facility] Comment on above: Result Comment: Canc elled via OM: Order cancelled - Patient discharged Performed By: #### L 500.2500, L100.0100 ####[facility] [address] [place], [address] CA,Total Normal 8.5-10.1 [facility] Comment on above: Result Comment: Canc elled via OM: Order cancelled - Patient discharged Performed By: #### L 500.2500, L100.0100 ####[facility] [address] [place], [address] CL Normal 98-107 [facility] Comment on above: Result Comment: Canc elled via OM: Order cancelled - Patient discharged Performed By: #### L 500.2500, L100.0100 ####[facility] [address] [place], [address] CO2 Normal 21.0-32.0 [facility] Comment on above: Result Comment: Canc elled via OM: Order cancelled - Patient discharged Performed By: #### L 500.2500, L100.0100 ####[facility] [address] [place], [address] CREAT,SERUM Normal 0.55-1.02 [facility] Comment on above: Result Comment: Canc elled via OM: Order cancelled - Patient discharged Performed By: #### L 500.2500, L100.0100 ####[facility] [address] [place], [address] EST GFR Normal >60 [facility] Comment on above: Result Comment: Canc elled via OM: Order cancelled - Patient discharged Performed By: #### L 500.2500, L100.0100 ####[facility] [address] [place], [address] EST GFR - AA Normal >60 [facility] Comment on above: Result Comment: Canc elled via OM: Order cancelled - Patient discharged Performed By: #### L 500.2500, L100.0100 ####[facility] [address] [place], [address] GAP Normal 5-15 [facility] Comment on above: Result Comment: Canc elled via OM: Order cancelled - Patient discharged Performed By: #### L 500.2500, L100.0100 ####[facility] [address] [place], [address] GLU Normal 74-106 [facility] Comment on above: Result Comment: Canc elled via OM: Order cancelled - Patient discharged Performed By: #### L 500.2500, L100.0100 ####[facility] [address] [place], [address] Potassium Normal 3.5-5.1 [facility] Comment on above: Result Comment: Canc elled via OM: Order cancelled - Patient discharged Performed By: #### L 500.2500, L100.0100 ####[facility] [address] [place], [address] Basic Metabolic Profile (BMP) Normal 136-145 [facility] Comment on above: Result Comment: Canc elled via OM: Order cancelled - Patient discharged Performed By: #### L 500.2500, L100.0100 ####[facility] [address] [place], [address] Basophil percentageOrdered B y: Franc Quezada on 07-04-2024 Basophils/100 WBC (Bld) 0.4 % 0-1 [facility] CBC W/Diff, Automatedon Absolute Lymph 1.38 X10 3/uL Normal 0.83-4.51 [facility] Comment on above: Performed By: #### L 503.6030, L3100.1350, L100.0100, L503.0105 ####[facility] [address] [place], [address] Absolute Neut 6.6 X10 3/uL Normal 2.0-7.7 [facility] Comment on above: Performed By: #### L 503.6030, L3100.1350, L100.0100, L503.0105 ####[facility] [address] [place], [address] Basophils/100 WBC (Bld) 0.4 % Normal 0-1 [facility] Comment on above: Performed By: #### L 503.6030, L3100.1350, L100.0100, L503.0105 ####[facility] [address] [place], [address] Eosinophils/100 WBC (Bld) 6.5 % High 0-5 [facility] Comment on above: Performed By: #### L 503.6030, L3100.1350, L100.0100, L503.0105 ####[facility] [address] [place], [address] Erythrocyte distribution width (RBC) [Ratio] 13.5 % Normal 11.6-14.6 [facility] Comment on above: Performed By: #### L 503.6030, L3100.1350, L100.0100, L503.0105 ####[facility] [address] [place], [address] Hematocrit (Bld) [Volume fraction] 39.6 % Normal 37-47 [facility] Comment on above: Performed By: #### L 503.6030, L3100.1350, L100.0100, L503.0105 ####[facility] [address] [place], [address] Hemoglobin (Bld) [Mass/Vol] 12.5 g/dL Normal 12.0-15.0 [facility] Comment on above: Performed By: #### L 503.6030, L3100.1350, L100.0100, L503.0105 ####[facility] [address] [place], [address] IG% 0.400 Normal 0.0-0.9 [facility] Comment on above: Result Comment: IG% - Immature Granulocytes (promyelocytes, myelocytes andmetamyelocytes) > 1% indicates that a LEFT SHIFT is Present. Performed By: #### L 503.6030, L3100.1350, L100.0100, L503.0105 ####[facility] [address] [place], [address] Lymphocytes/100 WBC (Bld) 14.5 % Low 19-41 [facility] Comment on above: Performed By: #### L 503.6030, L3100.1350, L100.0100, L503.0105 ####[facility] [address] [place], [address] MCH (RBC) [Entitic mass] 29.9 pg Normal 27.0-32.0 [facility] Comment on above: Performed By: #### L 503.6030, L3100.1350, L100.0100, L503.0105 ####[facility] [address] [place], [address] MCHC (RBC) [Mass/Vol] 31.6 g/dL Low 32-36 [facility] Comment on above: Performed By: #### L 503.6030, L3100.1350, L100.0100, L503.0105 ####[facility] [address] [place], [address] MCV (RBC) [Entitic vol] 94.7 fL Normal 81-99 [facility] Comment on above: Performed By: #### L 503.6030, L3100.1350, L100.0100, L503.0105 ####[facility] [address] [place], [address] Monocytes/100 WBC (Bld) 8.4 % Normal 0-10 [facility] Comment on above: Performed By: #### L 503.6030, L3100.1350, L100.0100, L503.0105 ####[facility] [address] [place], [address] Neutrophils/100 WBC (Bld) 69.8 % Normal 47-70 [facility] Comment on above: Performed By: #### L 503.6030, L3100.1350, L100.0100, L503.0105 ####[facility] [address] [place], [address] Nucleated RBC (Bld) [#/Vol] 0 10*3/uL Normal 0-5 [facility] Comment on above: Performed By: #### L 503.6030, L3100.1350, L100.0100, L503.0105 ####[facility] [address] [place], [address] Platelet mean volume (Bld) [Entitic vol] 8.9 fL Normal 6.2-12.0 [facility] Comment on above: Performed By: #### L 503.6030, L3100.1350, L100.0100, L503.0105 ####[facility] [address] [place], [address] Platelets (Bld) [#/Vol] 356 10*3/uL Normal 150-450 [facility] Comment on above: Performed By: #### L 503.6030, L3100.1350, L100.0100, L503.0105 ####[facility] [address] [place], [address] RBC (Bld) [#/Vol] 4.18 10*6/uL Low 4.2-5.4 [facility] Comment on above: Performed By: #### L 503.6030, L3100.1350, L100.0100, L503.0105 ####[facility] [address] [place], [address] RDW SD 46.9 fl High 35.1-43.9 [facility] Comment on above: Performed By: #### L 503.6030, L3100.1350, L100.0100, L503.0105 ####[facility] [address] [place], [address] WBC (Bld) [#/Vol] 9.5 10*3/uL Normal 4.4-11.0 [facility] Comment on above: Performed By: #### L 503.6030, L3100.1350, L100.0100, L503.0105 ####[facility] [address] [place], [address] Absolute Neut Normal 2.0-7.7 [facility] Comment on above: Result Comment: Canc elled via OM: Order cancelled - Patient discharged Performed By: #### L 500.2500, L100.0100 ####[facility] [address] [place], [address] HCT Normal 37-47 [facility] Comment on above: Result Comment: Canc elled via OM: Order cancelled - Patient discharged Performed By: #### L 500.2500, L100.0100 ####[facility] [address] [place], [address] HGB Normal 12.0-15.0 [facility] Comment on above: Result Comment: Canc elled via OM: Order cancelled - Patient discharged Performed By: #### L 500.2500, L100.0100 ####[facility] [address] [place], [address] MCH Normal 27.0-32.0 [facility] Comment on above: Result Comment: Canc elled via OM: Order cancelled - Patient discharged Performed By: #### L 500.2500, L100.0100 ####[facility] [address] [place], [address] MCHC Normal 32-36 [facility] Comment on above: Result Comment: Canc elled via OM: Order cancelled - Patient discharged Performed By: #### L 500.2500, L100.0100 ####[facility] [address] [place], [address] MCV Normal 81-99 [facility] Comment on above: Result Comment: Canc elled via OM: Order cancelled - Patient discharged Performed By: #### L 500.2500, L100.0100 ####[facility] [address] [place], [address] NEUT% Normal 47-70 [facility] Comment on above: Result Comment: Canc elled via OM: Order cancelled - Patient discharged Performed By: #### L 500.2500, L100.0100 ####[facility] [address] [place], [address] PLT Normal 150-450 [facility] Comment on above: Result Comment: Canc elled via OM: Order cancelled - Patient discharged Performed By: #### L 500.2500, L100.0100 ####[facility] [address] [place], [address] RBC Normal 4.2-5.4 [facility] Comment on above: Result Comment: Canc elled via OM: Order cancelled - Patient discharged Performed By: #### L 500.2500, L100.0100 ####[facility] [address] [place], [address] RDW CV Normal 11.6-14.6 [facility] Comment on above: Result Comment: Canc elled via OM: Order cancelled - Patient discharged Performed By: #### L 500.2500, L100.0100 ####[facility] [address] [place], [address] RDW SD Normal 35.1-43.9 [facility] Comment on above: Result Comment: Canc elled via OM: Order cancelled - Patient discharged Performed By: #### L 500.2500, L100.0100 ####[facility] [address] [place], [address] WBC Normal 4.4-11.0 [facility] Comment on above: Result Comment: Canc elled via OM: Order cancelled - Patient discharged Performed By: #### L 500.2500, L100.0100 ####[facility] [address] [place], [address] Eosinophil percentageOrdered By: Franc Quezada on 07-04-2024 Eosinophils/100 WBC (Bld) 6.5 % High 0-5 [facility] Erythrocyte distribution wid th ratioOrdered By: Franc Quezada on 07-04-2024 Erythrocyte distribution width (RBC) [Ratio] 13.5 % 11.6-14.6 [facility] Erythrocyte distribution wid th standard deviationOrdered By: Franc Quezada on 07-04-2024 Erythrocyte distribution width (RBC) [Entitic vol] 46.9 fL High 35.1-43.9 [facility] Erythropoietin (EPO) QnOrder ed By: Franc Quezada on 07-04-2024 Erythropoietin 8.5 mIU/mL 2.6-18.5 [facility] Comment on above: [employer] el DxI 800 Immunoassay SystemValues obtained with different assay methods or kits cannotbe used interchangeably. Results cannot be interpreted asabsolute evidence of the presence or absence of malignantdisease.Performed at: - [facility] [id number] Director: David King PhD, Phone: [phone] Hematocrit Auto (Bld) [Volum e fraction]Ordered By: Franc Quezada on 07-04-2024 Hematocrit (Bld) [Volume fraction] 39.6 % 37-47 [facility] Hemoglobin measurementOrdere d By: Franc Quezada on 07-04-2024 Hemoglobin (Bld) [Mass/Vol] 12.5 g/dL 12.0-15.0 [facility] Immature granulocytes/100 WB C Auto (Bld)Ordered By: Franc Quezada on 07-04-2024 Immature granulocytes/100 WBC (Bld) 0.400 % 0.0-0.9 [facility] Comment on above: IG% - Immature Granu locytes (promyelocytes, myelocytes and metamyelocytes) > 1% indicates that a LEFT SHIFT is Present. Iron (Unsp spec) [Mass/Mass] Ordered By: Franc Quezada on 07-04-2024 Iron [Mass/Vol] 126 ug/dL 50-170 [facility] Iron saturation [Mass fracti on]Ordered By: Franc Quezada on 07-04-2024 Iron Saturation 35.9 % 15.0-55.0 [facility] Iron+Iron Binding Capacityon 07-04-2024 Iron [Mass/Vol] 126 ug/dL Normal 50-170 [facility] Comment on above: Performed By: #### L 503.6030, L3100.1350, L100.0100, L503.0105 ####[facility] [address] [place], [address] IRON SATURATION 35.9 Normal 15.0-55.0 [facility] Comment on above: Performed By: #### L 503.6030, L3100.1350, L100.0100, L503.0105 ####[facility] [address] [place], [address] TIBC 351 ug/dL Normal 250-450 [facility] Comment on above: Performed By: #### L 503.6030, L3100.1350, L100.0100, L503.0105 ####[facility] [address] [place], [address] Lymphocytes Auto (Unsp spec) [#/Vol]Ordered By: Franc Quezada on 07-04-2024 Lymphocytes (Bld) [#/Vol] 1.38 10*3/uL 0.83-4.5 1 [facility] Lymphocytes/100 WBC Auto (Un sp spec)Ordered By: Franc Quezada on 07-04-2024 Lymphocytes/100 WBC (Bld) 14.5 % Low 19-41 [facility] MCV (mean corpuscular volume ) determinationOrdered By: Franc Quezada on 07-04-2024 MCV (RBC) [Entitic vol] 94.7 fL 81-99 [facility] Mean corpuscular hemoglobin (MCH) determinationOrdered By: Franc Quezada on 07-04-2024 MCH (RBC) [Entitic mass] 29.9 pg 27.0-32.0 [facility] Mean corpuscular hemoglobin concentration (MCHC) determinationOrdered By: Franc Quezada on 07-04-2024 MCHC (RBC) [Mass/Vol] 31.6 g/dL Low 32-36 [facility] Mean platelet volume determi nationOrdered By: Franc Quezada on 07-04-2024 Platelet mean volume (Bld) [Entitic vol] 8.9 fL 6.2-12.0 [facility] Monocyte percentageOrdered B y: Franc Quezada on 07-04-2024 Monocytes/100 WBC (Bld) 8.4 % 0-10 [facility] Neutrophil percentageOrdered By: Franc Quezada on 07-04-2024 Neutrophils/100 WBC (Bld) 69.8 % 47-70 [facility] Nucleated red blood cell per centageOrdered By: Franc Quezada on 07-04-2024 Nucleated RBC/100 WBC (Bld) [Ratio] 0 % 0-5 [facility] Platelet countOrdered By: Conner Quezada on 07-04-2024 Platelets (Bld) [#/Vol] 356 10*3/uL 150-450 [facility] RBC Auto (Bld) [#/Vol]Ordere d By: Franc Judi on 07-04-2024 RBC (Bld) [#/Vol] 4.18 10*6/uL Low 4.2-5.4 [facility] TIBCOrdered By: Paulerwin Judi on 07-04-2024 Total Iron Binding Capacity 351 ug/dL 250-450 [facility] Vitamin B12on 07-04-2024 Cobalamin (Vitamin B12) [Mass/Vol] 554 pg/mL Normal 211-911 [facility] Comment on above: Performed By: #### L 503.6030, L3100.1350, L100.0100, L503.0105 ####[facility] [address] [place], [place], [id number] Vitamin B12 measurementOrder ed By: Franc Quezada on 07-04-2024 Cobalamin (Vitamin B12) [Mass/Vol] 554 pg/mL 211-911 [facility] White blood cell (WBC) count Ordered By: Franc Quezada on 07-04-2024 WBC (Bld) [#/Vol] 9.5 10*3/uL 4.4-11.0 [facility] Urine Cultureon 07-03-2024 URC Normal [facility] Comment on above: Performed By: #### M 100.2200 ####[facility] [address] [place], [place], [id number] Bilirubin Test strip Ql (U)O rdered By: Mecca Abad on 07-01-2024 Bilirubin Ql (U) Negative Negative [facility] Discharge Instructionon 06-04 Discharge Instruction Normal [facility] Epithelial cells.squamous LM Ql (Urine sed)Ordered By: Mecca Abad on 07-01-2024 Epithelial cells.squamous LM.HPF (Urine sed) [#/Area] 0 /[HPF] 5-10 [facility] Glucose Ql (U)Ordered By: Khalida Abad on 07-01-2024 Urine Glucose (UA) Normal mg/dl Normal [facility] Ketones Test strip Ql (U)Ord ered By: Mecca Abad on 07-01-2024 Ketones Ql (U) Negative Negative [facility] Microscopic analysis of urin e for red blood cells (RBC)Ordered By: Mecca Webberkatty on 07-01-2024 Urine RBC 0 SEEN /hpf 0-5 [facility] Mucus LM Ql (Urine sed)Order ed By: Mecca Webberkatty on 07-01-2024 Mucus Ql (Urine sed) 0 SEEN /hpf [facility] Nitrite Test strip Ql (U)Ord ered By: Mecca Webberkatty on 07-01-2024 Nitrite Ql (U) Negative Negative [facility] Protein Test strip Ql (U)Ord ered By: Mecca Webberkatty on 07-01-2024 Protein Ql (U) 30 mg/dl High Negative [facility] Transitional cells LM Ql (Ur ine sed)Ordered By: Mecca Webberkatty on 07-01-2024 Urine Transitional Epithelial Cells 0-5 SEEN /hpf 0-5 [facility] Urinalysis, Completeon 07-01 BACTERIA 4+ /hpf Normal None Seen [facility] Comment on above: Order Comment: LISA TER SPECIMEN Performed By: #### L 400.0001 ####[facility] [address] [place] [phone] EPI,TRANSITION 0-5 SEEN Normal 0-5 [facility] Comment on above: Order Comment: LISA TER SPECIMEN Performed By: #### L 400.0001 ####[facility] [address] [place] [phone] WBC >100 SEEN Normal 0-5 [facility] Comment on above: Order Comment: LISA TER SPECIMEN Result Comment: Micr oscopic field is filled. Other elements may beobscured. Performed By: #### L 400.0001 ####[facility] [address] [place] [phone] BILIRUBIN URINE Negative Normal Negative [facility] Comment on above: Order Comment: LISA TER SPECIMEN Performed By: #### L 400.0001 ####[facility] [address] [place], [address] Clarity (U) Sl. Cloudy Normal Clear [facility] Comment on above: Order Comment: LISA TER SPECIMEN Performed By: #### L 400.0001 ####[facility] [address] [place], [address] Color (U) Straw Normal Yellow [facility] Comment on above: Order Comment: LISA TER SPECIMEN Performed By: #### L 400.0001 ####[facility] [address] [place], [address] EPI,SQUAMOUS 0 SEEN Normal 5-10 [facility] Comment on above: Order Comment: LISA TER SPECIMEN Performed By: #### L 400.0001 ####[facility] [address] [place], [address] GLUCOSE, UR Normal Normal Normal [facility] Comment on above: Order Comment: LISA TER SPECIMEN Performed By: #### L 400.0001 ####[facility] [address] [place], [address] KETONE UR Negative Normal Negative [facility] Comment on above: Order Comment: LISA TER SPECIMEN Performed By: #### L 400.0001 ####[facility] [address] [place], [address] LEUK ESTERASE 500 /ul Abnormal Negative [facility] Comment on above: Order Comment: LISA TER SPECIMEN Performed By: #### L 400.0001 ####[facility] [address] [place], [address] Mucus Ql (Urine sed) 0 SEEN Normal [facility] Comment on above: Order Comment: LISA TER SPECIMEN Performed By: #### L 400.0001 ####[facility] [address] [place], [address] Nitrite Ql (U) Negative Normal Negative [facility] Comment on above: Order Comment: LISA TER SPECIMEN Performed By: #### L 400.0001 ####[facility] [address] [place], [address] OCCULT BLOOD-UR 50 /ul Abnormal Negative [facility] Comment on above: Order Comment: LISA TER SPECIMEN Performed By: #### L 400.0001 ####[facility] [address] [place], [address] pH UR 7.0 Normal 5.0 - 8.0 [facility] Comment on above: Order Comment: LISA TER SPECIMEN Performed By: #### L 400.0001 ####[facility] [address] [place], [address] PROT DIPSTX 30 mg/dl Abnormal Negative [facility] Comment on above: Order Comment: LISA TER SPECIMEN Performed By: #### L 400.0001 ####[facility] [address] [place], [address] RBC 0 SEEN Normal 0-5 [facility] Comment on above: Order Comment: LISA TER SPECIMEN Performed By: #### L 400.0001 ####[facility] [address] [place], [address] SP.GR. DIPSTX 1.010 Normal 1.002-1.030 [facility] Comment on above: Order Comment: LISA TER SPECIMEN Performed By: #### L 400.0001 ####[facility] [address] [place], [address] UROBILI Normal Normal Normal [facility] Comment on above: Order Comment: LISA TER SPECIMEN Performed By: #### L 400.0001 ####[facility] [address] [place], [address] Urine blood detectionOrdered By: Mecca Abad on 07-01-2024 Urine Occult Blood 50 /ul High Negative [facility] Urine clarityOrdered By: Alayna Abad on 07-01-2024 Clarity (U) Sl. Cloudy Clear [facility] Urine color determinationOrd ered By: Mecca Webberkatty on 07-01-2024 Color (U) Straw Yellow [facility] Urine cultureOrdered By: Alayna Webberkatty on 07-01-2024 Bacteria identified Cx Nom (U) Presumptive E. coli Abnormal [facility] Urine leukocyte esterase det ection by dipstickOrdered By: Mecca Webberkatty on 07-01-2024 Leukocyte esterase Test strip Ql (U) 500 /ul High Negative [facility] Urine pHOrdered By: Mecca Zhao sammie on 07-01-2024 pH (U) 7.0 [pH] 5.0 - 8.0 [facility] Urine sediment bacteria coun t by microscopy (number/high power field)Ordered By: Mecca Webberkatty on 07-01-2024 Bacteria LM.HPF (Urine sed) [#/Area] 4 /[HPF] None Seen [facility] Urine specific gravity measu rementOrdered By: Mecca Webberkatty on 07-01-2024 Specific gravity (U) [Rel density] 1.010 1.002-1.030 [facility] Urobilinogen Ql (U)Ordered B y: Mecca Webberkatty on 07-01-2024 Urine Urobilinogen Normal mg/dl Normal [facility] White blood cell countOrdere d By: Mecca Webberkatty on 07-01-2024 Urine WBC >100 SEEN /hpf 0-5 [facility] Comment on above: Microscopic field is filled. Other elements may be obscured. Lower GI hemoglobin IA Ql (S tl)Ordered By: Mecca Webberkatty on 06-29-2024 Stool Occult Blood (KIM) [facility] Stool Occult Blood iFOBon STOB Negative Normal [facility] Comment on above: Performed By: #### M 100.7593 ####[facility] [address] [place], [address] Abdomen Single Viewon 2023 Abdomen Single View Normal [facility] Cardiology Visit Reporton Cardiology Visit Report Normal [facility] Absolute neutrophil countOrd ered By: Ken Scott on 06-27-2024 Neutrophils (Bld) [#/Vol] 1.8 10*3/uL Low 2.0-7.7 [facility] Basic Metabolic Profile (BMP )on 06-27-2024 BUN/CRE 35.7 RATIO High 10-20 [facility] Comment on above: Performed By: #### L 500.2500, L100.0100 ####[facility] [address] [place], [address] CA,Total 9.3 mg/dL Normal 8.5-10.1 [facility] Comment on above: Performed By: #### L 500.2500, L100.0100 ####[facility] [address] [place], [address] Chloride [Moles/Vol] 105 mmol/L Normal 98-107 [facility] Comment on above: Performed By: #### L 500.2500, L100.0100 ####[facility] [address] [place], [address] CO2 [Moles/Vol] 31.0 mmol/L Normal 21.0-32.0 [facility] Comment on above: Performed By: #### L 500.2500, L100.0100 ####[facility] [address] [place], [address] Creatinine [Mass/Vol] 0.84 mg/dL Normal 0.55-1.02 [facility] Comment on above: Result Comment: The validity of the calculated GFR GFRAA in patients over70 years has not been determined. Clinical correlation isessential. Performed By: #### L 500.2500, L100.0100 ####[facility] [address] [place], [address] ECRCL 42.63 ml/min Normal [facility] Comment on above: Performed By: #### L 500.2500, L100.0100 ####[facility] [address] [place], [address] EST GFR - AA 83 mL/min Normal >60 [facility] Comment on above: Result Comment: Afri can Portuguese GFR Calc Performed By: #### L 500.2500, L100.0100 ####[facility] [address] [place], [address] GAP 2 Low 5-15 [facility] Comment on above: Performed By: #### L 500.2500, L100.0100 ####[facility] [address] [place], [address] GFR/1.73 sq M.predicted among non-blacks MDRD (S/P/Bld) [Vol rate/Area] 69 mL/min/{1.73_m2} Normal >60 [facility] Comment on above: Result Comment: Non- GFR Calc Performed By: #### L 500.2500, L100.0100 ####[facility] [address] [place], [address] Glucose [Mass/Vol] 98 mg/dL Normal 74-106 [facility] Comment on above: Performed By: #### L 500.2500, L100.0100 ####[facility] [address] [place], [address] Potassium [Moles/Vol] 4.0 mmol/L Normal 3.5-5.1 [facility] Comment on above: Performed By: #### L 500.2500, L100.0100 ####[facility] [address] [place], [address] Sodium [Moles/Vol] 138 mmol/L Normal 136-145 [facility] Comment on above: Performed By: #### L 500.2500, L100.0100 ####[facility] [address] [place], [address] Urea nitrogen [Mass/Vol] 30 mg/dL High 7-18 [facility] Comment on above: Performed By: #### L 500.2500, L100.0100 ####[facility] [address] [place], [address] Basophil percentageOrdered B y: Ken Scott on 06-27-2024 Basophils/100 WBC (Bld) 0.7 % 0-1 [facility] Blood urea nitrogen (BUN)/cr eatinine ratioOrdered By: Ken Scott on 06-27-2024 Urea nitrogen/Creatinine [Mass ratio] 35.7 mg/mg High 10-20 [facility] CBC W/Diff, Automatedon 06-03 Absolute Lymph 1.63 X10 3/uL Normal 0.83-4.51 [facility] Comment on above: Performed By: #### L 500.2500, L100.0100 ####[facility] [address] [place], [address] Absolute Neut 1.8 X10 3/uL Low 2.0-7.7 [facility] Comment on above: Performed By: #### L 500.2500, L100.0100 ####[facility] [address] [place], [address] Basophils/100 WBC (Bld) 0.7 % Normal 0-1 [facility] Comment on above: Performed By: #### L 500.2500, L100.0100 ####[facility] [address] [place], [address] Eosinophils/100 WBC (Bld) 8.6 % High 0-5 [facility] Comment on above: Performed By: #### L 500.2500, L100.0100 ####[facility] [address] [place], [address] Erythrocyte distribution width (RBC) [Ratio] 13.3 % Normal 11.6-14.6 [facility] Comment on above: Performed By: #### L 500.2500, L100.0100 ####[facility] [address] [place], [address] Hematocrit (Bld) [Volume fraction] 31.2 % Low 37-47 [facility] Comment on above: Performed By: #### L 500.2500, L100.0100 ####[facility] [address] [place], [address] Hemoglobin (Bld) [Mass/Vol] 9.9 g/dL Low 12.0-15.0 [facility] Comment on above: Performed By: #### L 500.2500, L100.0100 ####[facility] [address] [place], [address] IG% 0.400 Normal 0.0-0.9 [facility] Comment on above: Result Comment: IG% - Immature Granulocytes (promyelocytes, myelocytes andmetamyelocytes) > 1% indicates that a LEFT SHIFT is Present. Performed By: #### L 500.2500, L100.0100 ####[facility] [address] [place], [address] Lymphocytes/100 WBC (Bld) 36.1 % Normal 19-41 [facility] Comment on above: Performed By: #### L 500.2500, L100.0100 ####[facility] [address] [place], [address] MCH (RBC) [Entitic mass] 30.5 pg Normal 27.0-32.0 [facility] Comment on above: Performed By: #### L 500.2500, L100.0100 ####[facility] [address] [place], [address] MCHC (RBC) [Mass/Vol] 31.7 g/dL Low 32-36 [facility] Comment on above: Performed By: #### L 500.2500, L100.0100 ####[facility] [address] [place], [address] MCV (RBC) [Entitic vol] 96.0 fL Normal 81-99 [facility] Comment on above: Performed By: #### L 500.2500, L100.0100 ####[facility] [address] [place], [address] Monocytes/100 WBC (Bld) 13.9 % High 0-10 [facility] Comment on above: Performed By: #### L 500.2500, L100.0100 ####[facility] [address] [place], [address] Neutrophils/100 WBC (Bld) 40.3 % Low 47-70 [facility] Comment on above: Performed By: #### L 500.2500, L100.0100 ####[facility] [address] [place], [address] Nucleated RBC (Bld) [#/Vol] 0 10*3/uL Normal 0-5 [facility] Comment on above: Performed By: #### L 500.2500, L100.0100 ####[facility] [address] [place], [address] Platelet mean volume (Bld) [Entitic vol] 8.6 fL Normal 6.2-12.0 [facility] Comment on above: Performed By: #### L 500.2500, L100.0100 ####[facility] [address] [place], [address] Platelets (Bld) [#/Vol] 315 10*3/uL Normal 150-450 [facility] Comment on above: Performed By: #### L 500.2500, L100.0100 ####[facility] [address] [place], [address] RBC (Bld) [#/Vol] 3.25 10*6/uL Low 4.2-5.4 [facility] Comment on above: Performed By: #### L 500.2500, L100.0100 ####[facility] [address] [place], [address] RDW SD 47.2 fl High 35.1-43.9 [facility] Comment on above: Performed By: #### L 500.2500, L100.0100 ####[facility] [address] [place], [address] WBC (Bld) [#/Vol] 4.5 10*3/uL Normal 4.4-11.0 [facility] Comment on above: Performed By: #### L 500.2500, L100.0100 ####[facility] [address] [place], [address] Carbon dioxide measurementOr dered By: Ken Scott on 06-27-2024 CO2 [Moles/Vol] 31.0 mmol/L 21.0-32.0 [facility] Chloride measurementOrdered By: Ken Scott 06-27-2024 Chloride [Moles/Vol] 105 mmol/L 98-107 [facility] Eosinophil percentageOrdered By: Ken Scott on 06-27-2024 Eosinophils/100 WBC (Bld) 8.6 % High 0-5 [facility] Erythrocyte distribution wid th ratioOrdered By: Ken Scott on 06-27-2024 Erythrocyte distribution width (RBC) [Ratio] 13.3 % 11.6-14.6 [facility] Erythrocyte distribution wid th standard deviationOrdered By: Ken Scott on 06-27-2024 Erythrocyte distribution width (RBC) [Entitic vol] 47.2 fL High 35.1-43.9 [facility] Estimated glomerular filtrat ion rate (GFR) AmericanOrdered By: Ken Scott on 06-27-2024 Estimated GFR (MDRD) Amer 83 mL/min >60 [facility] Comment on above: GFR Calc Estimation of creatinine will aranceOrdered By: Ken Scott on 06-27-2024 Estimated Creatinine Clearance Calc 42.63 ml/min [facility] Glomerular filtration rate ( GFR) estimationOrdered By: Ken Scott 06-27-2024 Estimated GFR (MDRD) Non-Af Amer 69 mL/min >60 [facility] Comment on above: Non- GFR Calc Glucose measurementOrdered B y: Ken Scott on 06-27-2024 Glucose [Mass/Vol] 98 mg/dL 74-106 [facility] Hematocrit Auto (Bld) [Volum e fraction]Ordered By: Ken Hernandezok on 06-27-2024 Hematocrit (Bld) [Volume fraction] 31.2 % Low 37-47 [facility] Hemoglobin measurementOrdere d By: Ken Scott on 06-27-2024 Hemoglobin (Bld) [Mass/Vol] 9.9 g/dL Low 12.0-15.0 [facility] Immature granulocytes/100 WB C Auto (Bld)Ordered By: Ken Scott on 06-27-2024 Immature granulocytes/100 WBC (Bld) 0.400 % 0.0-0.9 [facility] Comment on above: IG% - Immature Granu locytes (promyelocytes, myelocytes and metamyelocytes) > 1% indicates that a LEFT SHIFT is Present. Lymphocytes Auto (Unsp spec) [#/Vol]Ordered By: Ken Scott on 06-27-2024 Lymphocytes (Bld) [#/Vol] 1.63 10*3/uL 0.83-4.5 1 [facility] Lymphocytes/100 WBC Auto (Un sp spec)Ordered By: Ken Scott on 06-27-2024 Lymphocytes/100 WBC (Bld) 36.1 % 19-41 [facility] MCV (mean corpuscular volume ) determinationOrdered By: Ken Scott 06-27-2024 MCV (RBC) [Entitic vol] 96.0 fL 81-99 [facility] Mean corpuscular hemoglobin (MCH) determinationOrdered By: Ken Scott on 06-27-2024 MCH (RBC) [Entitic mass] 30.5 pg 27.0-32.0 [facility] Mean corpuscular hemoglobin concentration (MCHC) determinationOrdered By: Ken Hernandez06-27-2024 MCHC (RBC) [Mass/Vol] 31.7 g/dL Low 32-36 [facility] Mean platelet volume determi nationOrdered By: Ken Scott on 06-27-2024 Platelet mean volume (Bld) [Entitic vol] 8.6 fL 6.2-12.0 [facility] Monocyte percentageOrdered B y: Ken Scott on 06-27-2024 Monocytes/100 WBC (Bld) 13.9 % High 0-10 [facility] Neutrophil percentageOrdered By: Ken Hernandezok on 06-27-2024 Neutrophils/100 WBC (Bld) 40.3 % Low 47-70 [facility] Nucleated red blood cell per centageOrdered By: Ken Scott on 06-27-2024 Nucleated RBC/100 WBC (Bld) [Ratio] 0 % 0-5 [facility] Platelet countOrdered By: Noah Scott on 06-27-2024 Platelets (Bld) [#/Vol] 315 10*3/uL 150-450 [facility] Potassium measurementOrdered By: Ken Scott on 06-27-2024 Potassium [Moles/Vol] 4.0 mmol/L 3.5-5.1 [facility] RBC Auto (Bld) [#/Vol]Ordere d By: Ken Scott on 06-27-2024 RBC (Bld) [#/Vol] 3.25 10*6/uL Low 4.2-5.4 [facility] Serum anion gap measurementO rdered By: Ken Scott on 06-27-2024 Anion gap [Moles/Vol] 2 mmol/L Low 5-15 [facility] Serum or plasma calcium anthony urement (mass/volume)Ordered By: Ken Scott on 06-27-2024 Calcium [Mass/Vol] 9.3 mg/dL 8.5-10.1 [facility] Serum or plasma creatinine m easurement (mass/volume)Ordered By: Ken Scott on 06-27-2024 Creatinine [Mass/Vol] 0.84 mg/dL 0.55-1.02 [facility] Comment on above: The validity of the calculated GFR & GFRAA in patients over 70 years has not been determined. Clinical correlation is essential. Serum or plasma urea nitroge n measurement (mass/volume)Ordered By: Ken Scott on 06-27-2024 Urea nitrogen [Mass/Vol] 30 mg/dL High 7-18 [facility] Sodium levelOrdered By: Ken Scott on 06-27-2024 Sodium [Moles/Vol] 138 mmol/L 136-145 [facility] Urine Cultureon 06-27-2024 URC Below infection leve l. 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, [address] RBC 0-5 SEEN Normal 0-5 [facility] Comment on above: Order Comment: LISA TER SPECIMEN Performed By: #### L 400.0001 ####[facility] [address] [place], [address] WBC 5-10 SEEN Normal 0-5 [facility] Comment on above: Order Comment: LISA TER SPECIMEN Performed By: #### L 400.0001 ####[facility] [address] [place], [address] EPI,SQUAMOUS 0 SEEN Normal 5-10 [facility] Comment on above: Order Comment: LISA TER SPECIMEN Performed By: #### L 400.0001 ####[facility] [address] [place], [address] Mucus Ql (Urine sed) 0 SEEN Normal [facility] Comment on above: Order Comment: LISA TER SPECIMEN Performed By: #### L 400.0001 ####[facility] [address] [place], [address] COVID 19 AG RAPID (MARIELOS Morales)on 06-24-2024 SARS-CoV-2 (COVID-19) RNA HOLLY+probe Ql (Unsp spec) SARS-CoV-2 (COVID 19) Negative RAPID METHOD BinaxNow COVID19 Ag Card Normal [facility] Comment on above: Performed By: #### M 100.505 ####[facility] [address] [place], [address] EGD Reporton 06-24-2024 EGD Report Normal [facility] H Pylori (initial)on 024 H Pylori (initial) Normal [facility] Comment on above: Performed By: #### P H.PYLORI ####[facility] [address] [place], [address] MR/POSTOP.ANEon 06-24-2024 MR/POSTOP.ANE Normal [facility] MR/APLAOQUF4vy 06-24-2024 MR/POSTOPAN2 Normal [facility] SARS-CoV-2 (COVID-19) Ag IA. rapid Ql (Resp)Ordered By: Ken Scott on 06-24-2024 SARS-CoV-2 Antigen (Rapid) [facility] Surgery Specimen Level Stephen 06-24-2024 Surgery Specimen Level IV Normal [facility] Comment on above: Performed By: #### P SUIV ####[facility] [address] [place], [address] HH, Hemoglobin AND Hematocri ton 06-21-2024 Hematocrit (Bld) [Volume fraction] 30.9 % Low 37-47 [facility] Comment on above: Performed By: #### L 100.0600 ####[facility] [address] [place], [place], [id number] Hemoglobin (Bld) [Mass/Vol] 10.0 g/dL Low 12.0-15.0 [facility] Comment on above: Performed By: #### L 100.0600 ####[facility] [address] [place], [address] MR/PAT.ANEon 06-21-2024 MR/PAT.ANE Normal [facility] Basic Metabolic Profile (BMP )on 06-20-2024 BUN/CRE 21.3 RATIO High - [facility] Comment on above: Performed By: #### L 500.2500, L100.0100 ####[facility] [address] [place], [address] CA,Total 9.3 mg/dL Normal 8.5-10.1 [facility] Comment on above: Performed By: #### L 500.2500, L100.0100 ####[facility] [address] [place], [address] Chloride [Moles/Vol] 105 mmol/L Normal 98-107 [facility] Comment on above: Performed By: #### L 500.2500, L100.0100 ####[facility] [address] [place], [address] CO2 [Moles/Vol] 31.0 mmol/L Normal 21.0-32.0 [facility] Comment on above: Performed By: #### L 500.2500, L100.0100 ####[facility] [address] [place], [address] Creatinine [Mass/Vol] 0.80 mg/dL Normal 0.55-1.02 [facility] Comment on above: Result Comment: The validity of the calculated GFR GFRAA in patients over70 years has not been determined. Clinical correlation isessential. Performed By: #### L 500.2500, L100.0100 ####[facility] [address] [place], [address] ECRCL 44.68 ml/min Normal [facility] Comment on above: Performed By: #### L 500.2500, L100.0100 ####[facility] [address] [place], [address] EST GFR - AA 88 mL/min Normal >60 [facility] Comment on above: Result Comment: Afri can Portuguese GFR Calc Performed By: #### L 500.2500, L100.0100 ####[facility] [address] [place], [address] GAP 2 Low 5-15 [facility] Comment on above: Performed By: #### L 500.2500, L100.0100 ####[facility] [address] [place], [address] GFR/1.73 sq M.predicted among non-blacks MDRD (S/P/Bld) [Vol rate/Area] 73 mL/min/{1.73_m2} Normal >60 [facility] Comment on above: Result Comment: Non- GFR Calc Performed By: #### L 500.2500, L100.0100 ####[facility] [address] [place], [address] Glucose [Mass/Vol] 98 mg/dL Normal 74-106 [facility] Comment on above: Performed By: #### L 500.2500, L100.0100 ####[facility] [address] [place], [address] Potassium [Moles/Vol] 4.2 mmol/L Normal 3.5-5.1 [facility] Comment on above: Performed By: #### L 500.2500, L100.0100 ####[facility] [address] [place], [address] Sodium [Moles/Vol] 139 mmol/L Normal 136-145 [facility] Comment on above: Performed By: #### L 500.2500, L100.0100 ####[facility] [address] [place], [address] Urea nitrogen [Mass/Vol] 17 mg/dL Normal 7-18 [facility] Comment on above: Performed By: #### L 500.2500, L100.0100 ####[facility] [address] [place], [address] CBC W/Diff, Automatedon 06-02 Absolute Lymph 1.79 X10 3/uL Normal 0.83-4.51 [facility] Comment on above: Performed By: #### L 500.2500, L100.0100 ####[facility] [address] [place], [address] Absolute Neut 2.8 X10 3/uL Normal 2.0-7.7 [facility] Comment on above: Performed By: #### L 500.2500, L100.0100 ####[facility] [address] [place], [address] Basophils/100 WBC (Bld) 0.7 % Normal 0-1 [facility] Comment on above: Performed By: #### L 500.2500, L100.0100 ####[facility] [address] [place], [address] Eosinophils/100 WBC (Bld) 9.9 % High 0-5 [facility] Comment on above: Performed By: #### L 500.2500, L100.0100 ####[facility] [address] [place], [address] Erythrocyte distribution width (RBC) [Ratio] 13.1 % Normal 11.6-14.6 [facility] Comment on above: Performed By: #### L 500.2500, L100.0100 ####[facility] [address] [place], [address] Hematocrit (Bld) [Volume fraction] 30.6 % Low 37-47 [facility] Comment on above: Performed By: #### L 500.2500, L100.0100 ####[facility] [address] [place], [address] Hemoglobin (Bld) [Mass/Vol] 9.8 g/dL Low 12.0-15.0 [facility] Comment on above: Performed By: #### L 500.2500, L100.0100 ####[facility] [address] [place], [address] IG% 0.200 Normal 0.0-0.9 [facility] Comment on above: Result Comment: IG% - Immature Granulocytes (promyelocytes, myelocytes andmetamyelocytes) > 1% indicates that a LEFT SHIFT is Present. Performed By: #### L 500.2500, L100.0100 ####[facility] [address] [place], [address] Lymphocytes/100 WBC (Bld) 31.1 % Normal 19-41 [facility] Comment on above: Performed By: #### L 500.2500, L100.0100 ####[facility] [address] [place], [address] MCH (RBC) [Entitic mass] 30.5 pg Normal 27.0-32.0 [facility] Comment on above: Performed By: #### L 500.2500, L100.0100 ####[facility] [address] [place], [address] MCHC (RBC) [Mass/Vol] 32.0 g/dL Normal 32-36 [facility] Comment on above: Performed By: #### L 500.2500, L100.0100 ####[facility] [address] [place], [address] MCV (RBC) [Entitic vol] 95.3 fL Normal 81-99 [facility] Comment on above: Performed By: #### L 500.2500, L100.0100 ####[facility] [address] [place], [address] Monocytes/100 WBC (Bld) 10.1 % High 0-10 [facility] Comment on above: Performed By: #### L 500.2500, L100.0100 ####[facility] [address] [place], [address] Neutrophils/100 WBC (Bld) 48.0 % Normal 47-70 [facility] Comment on above: Performed By: #### L 500.2500, L100.0100 ####[facility] [address] [place], [address] Nucleated RBC (Bld) [#/Vol] 0 10*3/uL Normal 0-5 [facility] Comment on above: Performed By: #### L 500.2500, L100.0100 ####[facility] [address] [place], [address] Platelet mean volume (Bld) [Entitic vol] 9.4 fL Normal 6.2-12.0 [facility] Comment on above: Performed By: #### L 500.2500, L100.0100 ####[facility] [address] [place], [address] Platelets (Bld) [#/Vol] 201 10*3/uL Normal 150-450 [facility] Comment on above: Performed By: #### L 500.2500, L100.0100 ####[facility] [address] [place], [address] RBC (Bld) [#/Vol] 3.21 10*6/uL Low 4.2-5.4 [facility] Comment on above: Performed By: #### L 500.2500, L100.0100 ####[facility] [address] [place], [address] RDW SD 45.4 fl High 35.1-43.9 [facility] Comment on above: Performed By: #### L 500.2500, L100.0100 ####[facility] [address] [place], [address] WBC (Bld) [#/Vol] 5.8 10*3/uL Normal 4.4-11.0 [facility] Comment on above: Performed By: #### L 500.2500, L100.0100 ####[facility] [address] [place], [address] Consultation - Orthopedicson 06-19-2024 Consultation - Orthopedics Normal [facility] Urine Cultureon 06-19-2024 URC Culture exhibits no growth. Normal [facility] Comment on above: Performed By: #### M 100.2200 ####[facility] [address] [place], [address] Absolute neutrophil countOrd ered By: Aranza Reynolds on 06-18-2024 Neutrophils (Bld) [#/Vol] 4.2 10*3/uL 2.0-7.7 [facility] Basic Metabolic Profile (BMP )on 06-18-2024 BUN/CRE 21.0 RATIO High 10-20 [facility] Comment on above: Performed By: #### L 500.2500, L100.0100 ####[facility] [address] [place], [address] CA,Total 8.7 mg/dL Normal 8.5-10.1 [facility] Comment on above: Performed By: #### L 500.2500, L100.0100 ####[facility] [address] [place], [address] ECRCL 40.45 ml/min Normal [facility] Comment on above: Performed By: #### L 500.2500, L100.0100 ####[facility] [address] [place], [address] EST GFR - AA 81 mL/min Normal >60 [facility] Comment on above: Result Comment: Afri can Portuguese GFR Calc Performed By: #### L 500.2500, L100.0100 ####[facility] [address] [place], [address] GAP 4 Low 5-15 [facility] Comment on above: Performed By: #### L 500.2500, L100.0100 ####[facility] [address] [place], [address] GFR/1.73 sq M.predicted among non-blacks MDRD (S/P/Bld) [Vol rate/Area] 67 mL/min/{1.73_m2} Normal >60 [facility] Comment on above: Result Comment: Non- GFR Calc Performed By: #### L 500.2500, L100.0100 ####[facility] [address] [place], [address] Basophil percentageOrdered B y: Aranza Reynolds on 06-18-2024 Basophils/100 WBC (Bld) 0.4 % 0-1 [facility] Blood urea nitrogen (BUN)/cr eatinine ratioOrdered By: Aranza Reynolds on 06-18-2024 Urea nitrogen/Creatinine [Mass ratio] 21.0 mg/mg High 10-20 [facility] CBC W/Diff, Automatedon 06-02 Absolute Lymph 2.24 X10 3/uL Normal 0.83-4.51 [facility] Comment on above: Performed By: #### L 500.2500, L100.0100 ####[facility] [address] [place], [address] Absolute Neut 4.2 X10 3/uL Normal 2.0-7.7 [facility] Comment on above: Performed By: #### L 500.2500, L100.0100 ####[facility] [address] [place], [address] Basophils/100 WBC (Bld) 0.4 % Normal 0-1 [facility] Comment on above: Performed By: #### L 500.2500, L100.0100 ####[facility] [address] [place], [address] Eosinophils/100 WBC (Bld) 5.1 % High 0-5 [facility] Comment on above: Performed By: #### L 500.2500, L100.0100 ####[facility] [address] [place], [address] Erythrocyte distribution width (RBC) [Ratio] 13.2 % Normal 11.6-14.6 [facility] Comment on above: Performed By: #### L 500.2500, L100.0100 ####[facility] [address] [place], [address] Hematocrit (Bld) [Volume fraction] 32.6 % Low 37-47 [facility] Comment on above: Performed By: #### L 500.2500, L100.0100 ####[facility] [address] [place], [address] Hemoglobin (Bld) [Mass/Vol] 10.2 g/dL Low 12.0-15.0 [facility] Comment on above: Performed By: #### L 500.2500, L100.0100 ####[facility] [address] [place], [address] IG% 0.400 Normal 0.0-0.9 [facility] Comment on above: Result Comment: IG% - Immature Granulocytes (promyelocytes, myelocytes andmetamyelocytes) > 1% indicates that a LEFT SHIFT is Present. Performed By: #### L 500.2500, L100.0100 ####[facility] [address] [place], [address] Lymphocytes/100 WBC (Bld) 29.2 % Normal 19-41 [facility] Comment on above: Performed By: #### L 500.2500, L100.0100 ####[facility] [address] [place], [address] MCH (RBC) [Entitic mass] 30.3 pg Normal 27.0-32.0 [facility] Comment on above: Performed By: #### L 500.2500, L100.0100 ####[facility] [address] [place], [address] MCHC (RBC) [Mass/Vol] 31.3 g/dL Low 32-36 [facility] Comment on above: Performed By: #### L 500.2500, L100.0100 ####[facility] [address] [place], [address] MCV (RBC) [Entitic vol] 96.7 fL Normal 81-99 [facility] Comment on above: Performed By: #### L 500.2500, L100.0100 ####[facility] [address] [place], [address] Monocytes/100 WBC (Bld) 10.7 % High 0-10 [facility] Comment on above: Performed By: #### L 500.2500, L100.0100 ####[facility] [address] [place], [address] Neutrophils/100 WBC (Bld) 54.2 % Normal 47-70 [facility] Comment on above: Performed By: #### L 500.2500, L100.0100 ####[facility] [address] [place], [address] Nucleated RBC (Bld) [#/Vol] 0 10*3/uL Normal 0-5 [facility] Comment on above: Performed By: #### L 500.2500, L100.0100 ####[facility] [address] [place], [address] Platelet mean volume (Bld) [Entitic vol] 9.1 fL Normal 6.2-12.0 [facility] Comment on above: Performed By: #### L 500.2500, L100.0100 ####[facility] [address] [place], [address] Platelets (Bld) [#/Vol] 192 10*3/uL Normal 150-450 [facility] Comment on above: Performed By: #### L 500.2500, L100.0100 ####[facility] [address] [place], [address] RBC (Bld) [#/Vol] 3.37 10*6/uL Low 4.2-5.4 [facility] Comment on above: Performed By: #### L 500.2500, L100.0100 ####[facility] [address] [place], [address] RDW SD 47.3 fl High 35.1-43.9 [facility] Comment on above: Performed By: #### L 500.2500, L100.0100 ####[facility] [address] [place], [address] WBC (Bld) [#/Vol] 7.7 10*3/uL Normal 4.4-11.0 [facility] Comment on above: Performed By: #### L 500.2500, L100.0100 ####[facility] [address] [place], [address] Carbon dioxide measurementOr dered By: Aranza Reynolds on 06-18-2024 CO2 [Moles/Vol] 27.0 mmol/L Normal 21.0-32.0 [facility] Comment on above: Performed By: #### L 500.2500, L100.0100 ####[facility] [address] [place], [address] Chloride measurementOrdered By: Aranza Reynolds on 06-18-2024 Chloride [Moles/Vol] 106 mmol/L Normal 98-107 [facility] Comment on above: Performed By: #### L 500.2500, L100.0100 ####[facility] [address] [place], [place], [address] Eosinophil percentageOrdered By: Aranza Reynolds on 06-18-2024 Eosinophils/100 WBC (Bld) 5.1 % High 0-5 [facility] Erythrocyte distribution wid th ratioOrdered By: Aranza Reynolds on 06-18-2024 Erythrocyte distribution width (RBC) [Ratio] 13.2 % 11.6-14.6 [facility] Erythrocyte distribution wid th standard deviationOrdered By: Aranza Reynolds on 06-18-2024 Erythrocyte distribution width (RBC) [Entitic vol] 47.3 fL High 35.1-43.9 [facility] Estimated glomerular filtrat ion rate (GFR) AmericanOrdered By: Aranza Reynolds on 06-18-2024 Estimated GFR (MDRD) Amer 81 mL/min >60 [facility] Comment on above: GFR Calc Estimation of creatinine will aranceOrdered By: Aranza Reynolds on 06-18-2024 Estimated Creatinine Clearance Calc 40.45 ml/min [facility] Glomerular filtration rate ( GFR) estimationOrdered By: Aranza Reynolds on 06-18-2024 Estimated GFR (MDRD) Non-Af Amer 67 mL/min >60 [facility] Comment on above: Non- GFR Calc Glucose measurementOrdered B y: Aranza Reynolds on 06-18-2024 Glucose [Mass/Vol] 106 mg/dL Normal 74-106 [facility] Comment on above: Fasting Glucose resu lt from 100 to 125 mg/dL suggests IMPAIRED HOMEOSTASIS per A.D.A. criteria. Result Comment: Fast ing Glucose result from 100 to 125 mg/dLsuggests IMPAIRED HOMEOSTASIS per A.D.A. criteria. Performed By: #### L 500.2500, L100.0100 ####[facility] [address] [place], [place], [id number] Hematocrit Auto (Bld) [Volum e fraction]Ordered By: Aranza Reynolds on 06-18-2024 Hematocrit (Bld) [Volume fraction] 32.6 % Low 37-47 [facility] Hemoglobin measurementOrdere d By: Aranza Reynolds on 06-18-2024 Hemoglobin (Bld) [Mass/Vol] 10.2 g/dL Low 12.0-15.0 [facility] Immature granulocytes/100 WB C Auto (Bld)Ordered By: Aranza Reynolds on 06-18-2024 Immature granulocytes/100 WBC (Bld) 0.400 % 0.0-0.9 [facility] Comment on above: IG% - Immature Granu locytes (promyelocytes, myelocytes and metamyelocytes) > 1% indicates that a LEFT SHIFT is Present. Lymphocytes Auto (Unsp spec) [#/Vol]Ordered By: Aranza Reynolds on 06-18-2024 Lymphocytes (Bld) [#/Vol] 2.24 10*3/uL 0.83-4.5 1 [facility] Lymphocytes/100 WBC Auto (Un sp spec)Ordered By: Aranza Reynolds on 06-18-2024 Lymphocytes/100 WBC (Bld) 29.2 % 19-41 [facility] MCV (mean corpuscular volume ) determinationOrdered By: Aranza Reynolds on 06-18-2024 MCV (RBC) [Entitic vol] 96.7 fL 81-99 [facility] Mean corpuscular hemoglobin (MCH) determinationOrdered By: Aranza Reynolds on 06-18-2024 MCH (RBC) [Entitic mass] 30.3 pg 27.0-32.0 [facility] Mean corpuscular hemoglobin concentration (MCHC) determinationOrdered By: Aranza Reynolds on 06-18-2024 MCHC (RBC) [Mass/Vol] 31.3 g/dL Low 32-36 [facility] Mean platelet volume determi nationOrdered By: Aranza Reynolds on 06-18-2024 Platelet mean volume (Bld) [Entitic vol] 9.1 fL 6.2-12.0 [facility] Monocyte percentageOrdered B y: Aranza Reynolds on 06-18-2024 Monocytes/100 WBC (Bld) 10.7 % High 0-10 [facility] Neutrophil percentageOrdered By: Aranza Reynolds on 06-18-2024 Neutrophils/100 WBC (Bld) 54.2 % 47-70 [facility] Nucleated red blood cell per centageOrdered By: Aranza Reynolds on 06-18-2024 Nucleated RBC/100 WBC (Bld) [Ratio] 0 % 0-5 [facility] Platelet countOrdered By: Jaxon Reynolds on 06-18-2024 Platelets (Bld) [#/Vol] 192 10*3/uL 150-450 [facility] Potassium measurementOrdered By: Aranza Reynolds on 06-18-2024 Potassium [Moles/Vol] 4.4 mmol/L Normal 3.5-5.1 [facility] Comment on above: Performed By: #### L 500.2500, L100.0100 ####[facility] [address] [place], [place], [id number] RBC Auto (Bld) [#/Vol]Ordere d By: Aranza Reynolds on 06-18-2024 RBC (Bld) [#/Vol] 3.37 10*6/uL Low 4.2-5.4 [facility] Serum anion gap measurementO rdered By: Aranza Reynolds on 06-18-2024 Anion gap [Moles/Vol] 4 mmol/L Low 5-15 [facility] Serum or plasma calcium anthony urement (mass/volume)Ordered By: Aranza Reynolds on 06-18-2024 Calcium [Mass/Vol] 8.7 mg/dL 8.5-10.1 [facility] Serum or plasma creatinine m easurement (mass/volume)Ordered By: Aranza Reynolds on 06-18-2024 Creatinine [Mass/Vol] 0.86 mg/dL Normal 0.55-1.02 [facility] Comment on above: The validity of the calculated GFR & GFRAA in patients over 70 years has not been determined. Clinical correlation is essential. Result Comment: The validity of the calculated GFR GFRAA in patients over70 years has not been determined. Clinical correlation isessential. Performed By: #### L 500.2500, L100.0100 ####[facility] [address] [place], [place], [address] Serum or plasma urea nitroge n measurement (mass/volume)Ordered By: Aranza Reynolds on 06-18-2024 Urea nitrogen [Mass/Vol] 18 mg/dL Normal 7-18 [facility] Comment on above: Performed By: #### L 500.2500, L100.0100 ####[facility] [address] [place], [address] Sodium levelOrdered By: Jm Reynolds on 06-18-2024 Sodium [Moles/Vol] 137 mmol/L Normal 136-145 [facility] Comment on above: Performed By: #### L 500.2500, L100.0100 ####[facility] [address] [place], [address] White blood cell (WBC) count Ordered By: Aranza Reynolds on 06-18-2024 WBC (Bld) [#/Vol] 7.7 10*3/uL 4.4-11.0 [facility] Albumin to globulin ratioOrd ered By: Jean Morales on 06-17-2024 Albumin/Globulin [Mass ratio] 1.0 {ratio} 0.9-2.4 [facility] Bilirubin Test strip Ql (U)O rdered By: Jean Morales on 06-17-2024 Bilirubin Ql (U) Negative Negative [facility] Bilirubin, totalOrdered By: Jean Morales on 06-17-2024 Bilirubin [Mass/Vol] 0.40 mg/dL 0.20-1.00 [facility] Comment on above: For patients on eltr ombopag therapy, use of Dimension [place] TBIL is not recommended. CBC-Complete Blood Cnt No Di ffon 06-17-2024 Erythrocyte distribution width (RBC) [Ratio] 13.2 % Normal 11.6-14.6 [facility] Comment on above: Performed By: #### L 500.4050, L100.0500 ####[facility] [address] [place], [address] Hematocrit (Bld) [Volume fraction] 33.0 % Low 37-47 [facility] Comment on above: Performed By: #### L 500.4050, L100.0500 ####[facility] [address] [place], [address] Hemoglobin (Bld) [Mass/Vol] 10.6 g/dL Low 12.0-15.0 [facility] Comment on above: Performed By: #### L 500.4050, L100.0500 ####[facility] [address] [place], [address] MCH (RBC) [Entitic mass] 30.8 pg Normal 27.0-32.0 [facility] Comment on above: Performed By: #### L 500.4050, L100.0500 ####[facility] [address] [place], [address] MCHC (RBC) [Mass/Vol] 32.1 g/dL Normal 32-36 [facility] Comment on above: Performed By: #### L 500.4050, L100.0500 ####[facility] [address] [place], [address] MCV (RBC) [Entitic vol] 95.9 fL Normal 81-99 [facility] Comment on above: Performed By: #### L 500.4050, L100.0500 ####[facility] [address] [place], [address] Platelet mean volume (Bld) [Entitic vol] 9.3 fL Normal 6.2-12.0 [facility] Comment on above: Performed By: #### L 500.4050, L100.0500 ####[facility] [address] [place], [address] Platelets (Bld) [#/Vol] 198 10*3/uL Normal 150-450 [facility] Comment on above: Performed By: #### L 500.4050, L100.0500 ####[facility] [address] [place], [address] RBC (Bld) [#/Vol] 3.44 10*6/uL Low 4.2-5.4 [facility] Comment on above: Performed By: #### L 500.4050, L100.0500 ####[facility] [address] [place], [address] RDW SD 46.9 fl High 35.1-43.9 [facility] Comment on above: Performed By: #### L 500.4050, L100.0500 ####[facility] [address] [place], [address] WBC (Bld) [#/Vol] 7.4 10*3/uL Normal 4.4-11.0 [facility] Comment on above: Performed By: #### L 500.4050, L100.0500 ####[facility] [address] [place], [address] CPK Total, Creatine Kinaseon 06-17-2024 CPK TOTAL 66 U/L Normal 26-192 [facility] Comment on above: Performed By: #### L 501.3620 ####[facility] [address] [place], [address] Comprehensive Metabolic Prof ilon 06-17-2024 Albumin [Mass/Vol] 3.0 g/dL Low 3.2-5.0 [facility] Comment on above: Performed By: #### L 500.4050, L100.0500 ####[facility] [address] [place], [address] Albumin/Globulin [Mass ratio] 1.0 {ratio} Normal 0.9-2.4 [facility] Comment on above: Performed By: #### L 500.4050, L100.0500 ####[facility] [address] [place], [address] ALK P 64 U/L Normal 45-117 [facility] Comment on above: Performed By: #### L 500.4050, L100.0500 ####[facility] [address] [place], [address] ALT [Catalytic activity/Vol] 12 U/L Low 13-56 [facility] Comment on above: Performed By: #### L 500.4050, L100.0500 ####[facility] [address] [place], [address] AST [Catalytic activity/Vol] 10 U/L Low 15-37 [facility] Comment on above: Performed By: #### L 500.4050, L100.0500 ####[facility] [address] [place], [address] Bilirubin [Mass/Vol] 0.40 mg/dL Normal 0.20-1.00 [facility] Comment on above: Result Comment: For patients on eltrombopag therapy, use of Dimension [place] TBIL is not recommended. Performed By: #### L 500.4050, L100.0500 ####[facility] [address] [place], [address] BUN/CRE 23.5 RATIO High 10-20 [facility] Comment on above: Performed By: #### L 500.4050, L100.0500 ####[facility] [address] [place], [address] CA,Total 8.6 mg/dL Normal 8.5-10.1 [facility] Comment on above: Performed By: #### L 500.4050, L100.0500 ####[facility] [address] [place], [address] Chloride [Moles/Vol] 108 mmol/L High 98-107 [facility] Comment on above: Performed By: #### L 500.4050, L100.0500 ####[facility] [address] [place], [address] CO2 [Moles/Vol] 27.0 mmol/L Normal 21.0-32.0 [facility] Comment on above: Performed By: #### L 500.4050, L100.0500 ####[facility] [address] [place], [address] Creatinine [Mass/Vol] 0.89 mg/dL Normal 0.55-1.02 [facility] Comment on above: Result Comment: The validity of the calculated GFR GFRAA in patients over70 years has not been determined. Clinical correlation isessential. Performed By: #### L 500.4050, L100.0500 ####[facility] [address] [place], [address] ECRCL 41.60 ml/min Normal [facility] Comment on above: Performed By: #### L 500.4050, L100.0500 ####[facility] [address] [place], [address] EST GFR - AA 78 mL/min Normal >60 [facility] Comment on above: Result Comment: Afri can Portuguese GFR Calc Performed By: #### L 500.4050, L100.0500 ####[facility] [address] [place], [address] GAP 4 Low 5-15 [facility] Comment on above: Performed By: #### L 500.4050, L100.0500 ####[facility] [address] [place], [address] GFR/1.73 sq M.predicted among non-blacks MDRD (S/P/Bld) [Vol rate/Area] 64 mL/min/{1.73_m2} Normal >60 [facility] Comment on above: Result Comment: Non- GFR Calc Performed By: #### L 500.4050, L100.0500 ####[facility] [address] [place], [address] Globulin (S) [Mass/Vol] 2.9 g/dL Normal 2.2-4.2 [facility] Comment on above: Performed By: #### L 500.4050, L100.0500 ####[facility] [address] [place], [address] Glucose [Mass/Vol] 113 mg/dL High 74-106 [facility] Comment on above: Result Comment: Fast ing Glucose result from 100 to 125 mg/dLsuggests IMPAIRED HOMEOSTASIS per A.D.A. criteria. Performed By: #### L 500.4050, L100.0500 ####[facility] [address] [place], [address] Potassium [Moles/Vol] 4.2 mmol/L Normal 3.5-5.1 [facility] Comment on above: Performed By: #### L 500.4050, L100.0500 ####[facility] [address] [place], [address] Sodium [Moles/Vol] 139 mmol/L Normal 136-145 [facility] Comment on above: Performed By: #### L 500.4050, L100.0500 ####[facility] [address] [place], [address] T PROT 5.9 g/dL Low 6.4-8.2 [facility] Comment on above: Performed By: #### L 500.4050, L100.0500 ####[facility] [address] [place], [address] Urea nitrogen [Mass/Vol] 21 mg/dL High 7-18 [facility] Comment on above: Performed By: #### L 500.4050, L100.0500 ####[facility] [address] [place], [address] Emergency Department Summary on 06-17-2024 Emergency Department Summary Normal [facility] Epithelial cells.squamous LM Ql (Urine sed)Ordered By: Jean Morales on 06-17-2024 Epithelial cells.squamous LM.HPF (Urine sed) [#/Area] 0 /[HPF] 5-10 [facility] Extremity Lower without Cont raon 06-17-2024 Extremity Lower without Contra Normal [facility] Glucose Ql (U)Ordered By: Romana Morales on 06-17-2024 Urine Glucose (UA) Normal mg/dl Normal [facility] H AND P Exam - Hospitaliston 06-17-2024 H&P Exam - Hospitalist Normal [facility] Ketones Test strip Ql (U)Ord ered By: Jean Morales on 06-17-2024 Ketones Ql (U) Negative Negative [facility] Laboratory - Chemistry and C hemistry - challengeOrdered By: Jean Morales on 06-17-2024 AST [Catalytic activity/Vol] 10 U/L Low 15-37 [facility] Microscopic analysis of urin e for red blood cells (RBC)Ordered By: Jean Morales on 06-17-2024 Urine RBC 0 SEEN /hpf 0-5 [facility] Mucus LM Ql (Urine sed)Order ed By: Jean Morales on 06-17-2024 Mucus Ql (Urine sed) 0 SEEN /hpf [facility] Nitrite Test strip Ql (U)Ord ered By: Jean Morales on 06-17-2024 Nitrite Ql (U) Negative Negative [facility] Protein Test strip Ql (U)Ord ered By: Jean Morales on 06-17-2024 Protein Ql (U) 15 mg/dl High Negative [facility] Serum globulin measurementOr dered By: Jean Morales on 06-17-2024 Globulin (S) [Mass/Vol] 2.9 g/dL 2.2-4.2 [facility] Serum or plasma alanine brennan otransferase (ALT) measurementOrdered By: Jean Morales on 06-17-2024 ALT [Catalytic activity/Vol] 12 U/L Low 13-56 [facility] Serum or plasma albumin anthony urement (mass/volume)Ordered By: Jean Morales on 06-17-2024 Albumin [Mass/Vol] 3.0 g/dL Low 3.2-5.0 [facility] Serum or plasma alkaline cory sphatase measurementOrdered By: Jean Morales on 06-17-2024 ALP [Catalytic activity/Vol] 64 U/L 45-117 [facility] Total creatine kinase measur ementOrdered By: Jean Morales on 06-17-2024 CK [Catalytic activity/Vol] 66 U/L 26-192 [facility] Total proteinOrdered By: Shay Morales on 06-17-2024 Protein [Mass/Vol] 5.9 g/dL Low 6.4-8.2 [facility] Urinalysis, Completeon 06-17 BACTERIA 4+ /hpf Normal None Seen [facility] Comment on above: Order Comment: ROSINA CTOR TO SPECIFY Performed By: #### L 400.0001 ####[facility] [address] [place], [address] EPI,SQUAMOUS 0-5 SEEN Normal 5-10 [facility] Comment on above: Order Comment: ROSINA CTOR TO SPECIFY Performed By: #### L 400.0001 ####[facility] [address] [place], [address] WBC 5-10 SEEN Normal 0-5 [facility] Comment on above: Order Comment: ROSINA CTOR TO SPECIFY Performed By: #### L 400.0001 ####[facility] [address] [place], [address] Mucus Ql (Urine sed) 0 SEEN Normal [facility] Comment on above: Order Comment: ROSINA CTOR TO SPECIFY Performed By: #### L 400.0001 ####[facility] [address] [place], [address] RBC 0 SEEN Normal 0-5 [facility] Comment on above: Order Comment: ROSINA CTOR TO SPECIFY Performed By: #### L 400.0001 ####[facility] [address] [place], [address] Urine blood detectionOrdered By: Jean Morales on 06-17-2024 Urine Occult Blood Negative Negative [facility] Urine clarityOrdered By: Shay Morales on 06-17-2024 Clarity (U) Cloudy Clear [facility] Urine color determinationOrd ered By: Jean Morales on 06-17-2024 Color (U) Yellow Yellow [facility] Urine cultureOrdered By: Richar Reynolds on 06-17-2024 Bacteria identified Cx Nom (U) Culture exhibits no growth. [facility] Urine leukocyte esterase det ection by dipstickOrdered By: Jean Morales on 06-17-2024 Leukocyte esterase Test strip Ql (U) 25 /ul High Negative [facility] Urine pHOrdered By: Jaen morocho on 06-17-2024 pH (U) 6.5 [pH] 5.0 - 8.0 [facility] Urine sediment bacteria coun t by microscopy (number/high power field)Ordered By: Jean Morales on 06-17-2024 Bacteria LM.HPF (Urine sed) [#/Area] 4 /[HPF] None Seen [facility] Urine specific gravity measu rementOrdered By: Jean Morales on 06-17-2024 Specific gravity (U) [Rel density] 1.010 1.002-1.030 [facility] Urobilinogen Ql (U)Ordered B y: Jean Morales on 06-17-2024 Urine Urobilinogen Normal mg/dl Normal [facility] White blood cell countOrdere d By: Jean Morales on 06-17-2024 Urine WBC 5-10 SEEN /hpf 0-5 [facility] Absolute neutrophil countOrd ered By: Brent Nuñez on 06-16-2024 Neutrophils (Bld) [#/Vol] 5.4 10*3/uL 2.0-7.7 [facility] Basic Metabolic Profile (BMP )on 06-16-2024 BUN/CRE 17.4 RATIO Normal 10-20 [facility] Comment on above: Performed By: #### L 100.0100, L500.2500 ####[facility] [address] [place], [address] CA,Total 9.0 mg/dL Normal 8.5-10.1 [facility] Comment on above: Performed By: #### L 100.0100, L500.2500 ####[facility] [address] [place], [address] Chloride [Moles/Vol] 107 mmol/L Normal 98-107 [facility] Comment on above: Performed By: #### L 100.0100, L500.2500 ####[facility] [address] [place], [address] CO2 [Moles/Vol] 27.0 mmol/L Normal 21.0-32.0 [facility] Comment on above: Performed By: #### L 100.0100, L500.2500 ####[facility] [address] [place], [address] Creatinine [Mass/Vol] 1.32 mg/dL High 0.55-1.02 [facility] Comment on above: Result Comment: The validity of the calculated GFR GFRAA in patients over70 years has not been determined. Clinical correlation isessential. Performed By: #### L 100.0100, L500.2500 ####[facility] [address] [place], [address] ECRCL 27.50 ml/min Normal [facility] Comment on above: Performed By: #### L 100.0100, L500.2500 ####[facility] [address] [place], [address] EST GFR - AA 49 mL/min Low >60 [facility] Comment on above: Result Comment: Afri can Portuguese GFR Calc Performed By: #### L 100.0100, L500.2500 ####[facility] [address] [place], [address] GAP 5 Normal 5-15 [facility] Comment on above: Performed By: #### L 100.0100, L500.2500 ####[facility] [address] [place], [address] GFR/1.73 sq M.predicted among non-blacks MDRD (S/P/Bld) [Vol rate/Area] 41 mL/min/{1.73_m2} Low >60 [facility] Comment on above: Result Comment: Non- GFR Calc Performed By: #### L 100.0100, L500.2500 ####[facility] [address] [place], [address] Glucose [Mass/Vol] 117 mg/dL High 74-106 [facility] Comment on above: Result Comment: Fast ing Glucose result from 100 to 125 mg/dLsuggests IMPAIRED HOMEOSTASIS per A.D.A. criteria. Performed By: #### L 100.0100, L500.2500 ####[facility] [address] [place], [address] Potassium [Moles/Vol] 4.4 mmol/L Normal 3.5-5.1 [facility] Comment on above: Performed By: #### L 100.0100, L500.2500 ####[facility] [address] [place], [address] Sodium [Moles/Vol] 138 mmol/L Normal 136-145 [facility] Comment on above: Performed By: #### L 100.0100, L500.2500 ####[facility] [address] [place], [address] Urea nitrogen [Mass/Vol] 23 mg/dL High 7-18 [facility] Comment on above: Performed By: #### L 100.0100, L500.2500 ####[facility] [address] [place], [address] Basophil percentageOrdered B y: Brent Nuñez on 06-16-2024 Basophils/100 WBC (Bld) 0.6 % 0-1 [facility] Blood urea nitrogen (BUN)/cr eatinine ratioOrdered By: Brent Nuñez on 06-16-2024 Urea nitrogen/Creatinine [Mass ratio] 17.4 mg/mg 10-20 [facility] CBC W/Diff, Automatedon 06-02 Absolute Lymph 2.78 X10 3/uL Normal 0.83-4.51 [facility] Comment on above: Performed By: #### L 100.0100, L500.2500 ####[facility] [address] [place], [address] Absolute Neut 5.4 X10 3/uL Normal 2.0-7.7 [facility] Comment on above: Performed By: #### L 100.0100, L500.2500 ####[facility] [address] [place], [address] Basophils/100 WBC (Bld) 0.6 % Normal 0-1 [facility] Comment on above: Performed By: #### L 100.0100, L500.2500 ####[facility] [address] [place], [address] Eosinophils/100 WBC (Bld) 4.9 % Normal 0-5 [facility] Comment on above: Performed By: #### L 100.0100, L500.2500 ####[facility] [address] [place], [address] Erythrocyte distribution width (RBC) [Ratio] 13.2 % Normal 11.6-14.6 [facility] Comment on above: Performed By: #### L 100.0100, L500.2500 ####[facility] [address] [place], [address] Hematocrit (Bld) [Volume fraction] 37.0 % Normal 37-47 [facility] Comment on above: Performed By: #### L 100.0100, L500.2500 ####[facility] [address] [place], [address] Hemoglobin (Bld) [Mass/Vol] 12.1 g/dL Normal 12.0-15.0 [facility] Comment on above: Performed By: #### L 100.0100, L500.2500 ####[facility] [address] [place], [address] IG% 0.500 Normal 0.0-0.9 [facility] Comment on above: Result Comment: IG% - Immature Granulocytes (promyelocytes, myelocytes andmetamyelocytes) > 1% indicates that a LEFT SHIFT is Present. Performed By: #### L 100.0100, L500.2500 ####[facility] [address] [place], [address] Lymphocytes/100 WBC (Bld) 29.1 % Normal 19-41 [facility] Comment on above: Performed By: #### L 100.0100, L500.2500 ####[facility] [address] [place], [address] MCH (RBC) [Entitic mass] 30.9 pg Normal 27.0-32.0 [facility] Comment on above: Performed By: #### L 100.0100, L500.2500 ####[facility] [address] [place], [address] MCHC (RBC) [Mass/Vol] 32.7 g/dL Normal 32-36 [facility] Comment on above: Performed By: #### L 100.0100, L500.2500 ####[facility] [address] [place], [address] MCV (RBC) [Entitic vol] 94.6 fL Normal 81-99 [facility] Comment on above: Performed By: #### L 100.0100, L500.2500 ####[facility] [address] [place], [address] Monocytes/100 WBC (Bld) 8.8 % Normal 0-10 [facility] Comment on above: Performed By: #### L 100.0100, L500.2500 ####[facility] [address] [place], [address] Neutrophils/100 WBC (Bld) 56.1 % Normal 47-70 [facility] Comment on above: Performed By: #### L 100.0100, L500.2500 ####[facility] [address] [place], [address] Nucleated RBC (Bld) [#/Vol] 0 10*3/uL Normal 0-5 [facility] Comment on above: Performed By: #### L 100.0100, L500.2500 ####[facility] [address] [place], [address] Platelet mean volume (Bld) [Entitic vol] 9.2 fL Normal 6.2-12.0 [facility] Comment on above: Performed By: #### L 100.0100, L500.2500 ####[facility] [address] [place], [address] Platelets (Bld) [#/Vol] 214 10*3/uL Normal 150-450 [facility] Comment on above: Performed By: #### L 100.0100, L500.2500 ####[facility] [address] [place], [address] RBC (Bld) [#/Vol] 3.91 10*6/uL Low 4.2-5.4 [facility] Comment on above: Performed By: #### L 100.0100, L500.2500 ####[facility] [address] [place], [address] RDW SD 45.2 fl High 35.1-43.9 [facility] Comment on above: Performed By: #### L 100.0100, L500.2500 ####[facility] [address] [place], [address] WBC (Bld) [#/Vol] 9.6 10*3/uL Normal 4.4-11.0 [facility] Comment on above: Performed By: #### L 100.0100, L500.2500 ####[facility] [address] [place], [address] Carbon dioxide measurementOr dered By: Brent Nuñez on 06-16-2024 CO2 [Moles/Vol] 27.0 mmol/L 21.0-32.0 [facility] Chloride measurementOrdered By: Brent Nuñez on 06-16-2024 Chloride [Moles/Vol] 107 mmol/L 98-107 [facility] Emergency Department Summary on 06-16-2024 Emergency Department Summary Normal [facility] Eosinophil percentageOrdered By: Brent Nuñez on 06-16-2024 Eosinophils/100 WBC (Bld) 4.9 % 0-5 [facility] Erythrocyte distribution wid th ratioOrdered By: Brent Nuñez on 06-16-2024 Erythrocyte distribution width (RBC) [Ratio] 13.2 % 11.6-14.6 [facility] Erythrocyte distribution wid th standard deviationOrdered By: Brent Nuñez on 06-16-2024 Erythrocyte distribution width (RBC) [Entitic vol] 45.2 fL High 35.1-43.9 [facility] Estimated glomerular filtrat ion rate (GFR) AmericanOrdered By: Brent Nuñez on 06-16-2024 Estimated GFR (MDRD) Amer 49 mL/min Low >60 [facility] Comment on above: GFR Calc Estimation of creatinine will aranceOrdered By: Brent Nuñez on 06-16-2024 Estimated Creatinine Clearance Calc 27.50 ml/min [facility] Glomerular filtration rate ( GFR) estimationOrdered By: Brent Nuñez on 06-16-2024 Estimated GFR (MDRD) Non-Af Amer 41 mL/min Low >60 [facility] Comment on above: Non- GFR Calc Glucose measurementOrdered B y: Brent Nuñez on 06-16-2024 Glucose [Mass/Vol] 117 mg/dL High 74-106 [facility] Comment on above: Fasting Glucose resu lt from 100 to 125 mg/dL suggests IMPAIRED HOMEOSTASIS per A.D.A. criteria. Hematocrit Auto (Bld) [Volum e fraction]Ordered By: Brent Nuñez on 06-16-2024 Hematocrit (Bld) [Volume fraction] 37.0 % 37-47 [facility] Hemoglobin measurementOrdere d By: Brent Nuñez on 06-16-2024 Hemoglobin (Bld) [Mass/Vol] 12.1 g/dL 12.0-15.0 [facility] Immature granulocytes/100 WB C Auto (Bld)Ordered By: Brent Nuñez on 06-16-2024 Immature granulocytes/100 WBC (Bld) 0.500 % 0.0-0.9 [facility] Comment on above: IG% - Immature Granu locytes (promyelocytes, myelocytes and metamyelocytes) > 1% indicates that a LEFT SHIFT is Present. Knee 3 Viewson 06-16-2024 Knee 3 Views Normal [facility] Lymphocytes Auto (Unsp spec) [#/Vol]Ordered By: Brent Nuñez on 06-16-2024 Lymphocytes (Bld) [#/Vol] 2.78 10*3/uL 0.83-4.5 1 [facility] Lymphocytes/100 WBC Auto (Un sp spec)Ordered By: Brent Nuñez on 06-16-2024 Lymphocytes/100 WBC (Bld) 29.1 % 19-41 [facility] MCV (mean corpuscular volume ) determinationOrdered By: Brent Nuñez on 06-16-2024 MCV (RBC) [Entitic vol] 94.6 fL 81-99 [facility] Mean corpuscular hemoglobin (MCH) determinationOrdered By: Brent Nuñez on 06-16-2024 MCH (RBC) [Entitic mass] 30.9 pg 27.0-32.0 [facility] Mean corpuscular hemoglobin concentration (MCHC) determinationOrdered By: Brent Nuñez on 06-16-2024 MCHC (RBC) [Mass/Vol] 32.7 g/dL 32-36 [facility] Mean platelet volume determi nationOrdered By: Brent Nuñez on 06-16-2024 Platelet mean volume (Bld) [Entitic vol] 9.2 fL 6.2-12.0 [facility] Monocyte percentageOrdered B y: Brent Nuñez on 06-16-2024 Monocytes/100 WBC (Bld) 8.8 % 0-10 [facility] Neutrophil percentageOrdered By: Brent Nuñez on 06-16-2024 Neutrophils/100 WBC (Bld) 56.1 % 47-70 [facility] Nucleated red blood cell per centageOrdered By: Brent Nuñez on 06-16-2024 Nucleated RBC/100 WBC (Bld) [Ratio] 0 % 0-5 [facility] Pelvis 1 or 2 Viewson 2023 Pelvis 1 or 2 Views Normal [facility] Platelet countOrdered By: Ethel Nuñez on 06-16-2024 Platelets (Bld) [#/Vol] 214 10*3/uL 150-450 [facility] Potassium measurementOrdered By: Brent Nuñez on 06-16-2024 Potassium [Moles/Vol] 4.4 mmol/L 3.5-5.1 [facility] RBC Auto (Bld) [#/Vol]Ordere d By: Brent Nuñez on 06-16-2024 RBC (Bld) [#/Vol] 3.91 10*6/uL Low 4.2-5.4 [facility] Serum anion gap measurementO rdered By: Brent Nuñez on 06-16-2024 Anion gap [Moles/Vol] 5 mmol/L 5-15 [facility] Serum or plasma calcium anthony urement (mass/volume)Ordered By: Brent Nuñez on 06-16-2024 Calcium [Mass/Vol] 9.0 mg/dL 8.5-10.1 [facility] Serum or plasma creatinine m easurement (mass/volume)Ordered By: Brent Nuñez on 06-16-2024 Creatinine [Mass/Vol] 1.32 mg/dL High 0.55-1.02 [facility] Comment on above: The validity of the calculated GFR & GFRAA in patients over 70 years has not been determined. Clinical correlation is essential. Serum or plasma urea nitroge n measurement (mass/volume)Ordered By: Brent Nuñez on 06-16-2024 Urea nitrogen [Mass/Vol] 23 mg/dL High 7-18 [facility] Sodium levelOrdered By: Elliot Nuñez on 06-16-2024 Sodium [Moles/Vol] 138 mmol/L 136-145 [facility] White blood cell (WBC) count Ordered By: Brent Nuñez on 06-16-2024 WBC (Bld) [#/Vol] 9.6 10*3/uL 4.4-11.0 [facility] Cardiac Cath Diagnosticon Cardiac Cath Diagnostic Normal [facility] Cardiology Visit Reporton Cardiology Visit Report Normal [facility] 12 Lead EKGon 2024 12 Lead EKG Normal [facility] Basic Metabolic Profile (BMP )on 2024 BUN/CRE 30.9 RATIO High 04-21 [facility] Comment on above: Order Comment: 1Y Performed By: #### L 501.5425, L500.2500, L100.0100 ####[facility] [address] [place], [address] CA,Total 9.4 mg/dL Normal 8.5-10.1 [facility] Comment on above: Order Comment: 1Y Performed By: #### L 501.5425, L500.2500, L100.0100 ####[facility] [address] [place], [address] Chloride [Moles/Vol] 109 mmol/L High 98-107 [facility] Comment on above: Order Comment: 1Y Performed By: #### L 501.5425, L500.2500, L100.0100 ####[facility] [address] [place], [address] CO2 [Moles/Vol] 29.0 mmol/L Normal 21.0-32.0 [facility] Comment on above: Order Comment: 1Y Performed By: #### L 501.5425, L500.2500, L100.0100 ####[facility] [address] [place], [address] Creatinine [Mass/Vol] 0.74 mg/dL Normal 0.55-1.02 [facility] Comment on above: Order Comment: 1Y Result Comment: The validity of the calculated GFR GFRAA in patients over70 years has not been determined. Clinical correlation isessential. Performed By: #### L 501.5425, L500.2500, L100.0100 ####[facility] [address] [place], [address] ECRCL 44.79 ml/min Normal [facility] Comment on above: Order Comment: 1Y Performed By: #### L 501.5425, L500.2500, L100.0100 ####[facility] [address] [place], [address] EST GFR - AA 95 mL/min Normal >60 [facility] Comment on above: Order Comment: 1Y Result Comment: Afri can Portuguese GFR Calc Performed By: #### L 501.5425, L500.2500, L100.0100 ####[facility] [address] [place], [address] GAP 2 Low 5-15 [facility] Comment on above: Order Comment: 1Y Performed By: #### L 501.5425, L500.2500, L100.0100 ####[facility] [address] [place], [address] GFR/1.73 sq M.predicted among non-blacks MDRD (S/P/Bld) [Vol rate/Area] 79 mL/min/{1.73_m2} Normal >60 [facility] Comment on above: Order Comment: 1Y Result Comment: Non- GFR Calc Performed By: #### L 501.5425, L500.2500, L100.0100 ####[facility] [address] [place], [address] Glucose [Mass/Vol] 109 mg/dL High 74-106 [facility] Comment on above: Order Comment: 1Y Result Comment: Fast ing Glucose result from 100 to 125 mg/dLsuggests IMPAIRED HOMEOSTASIS per A.D.A. criteria. Performed By: #### L 501.5425, L500.2500, L100.0100 ####[facility] [address] [place], [address] Potassium [Moles/Vol] 3.7 mmol/L Normal 3.5-5.1 [facility] Comment on above: Order Comment: 1Y Performed By: #### L 501.5425, L500.2500, L100.0100 ####[facility] [address] [place], [address] Sodium [Moles/Vol] 140 mmol/L Normal 136-145 [facility] Comment on above: Order Comment: 1Y Performed By: #### L 501.5425, L500.2500, L100.0100 ####[facility] [address] [place], [address] Urea nitrogen [Mass/Vol] 23 mg/dL High 7-18 [facility] Comment on above: Order Comment: 1Y Performed By: #### L 501.5425, L500.2500, L100.0100 ####[facility] [address] [place], [address] CBC W/Diff, Automatedon 11 Absolute Lymph 2.44 X10 3/uL Normal 0.83-4.51 [facility] Comment on above: Performed By: #### L 501.5425, L500.2500, L100.0100 ####[facility] [address] [place], [address] Absolute Neut 3.3 X10 3/uL Normal 2.0-7.7 [facility] Comment on above: Performed By: #### L 501.5425, L500.2500, L100.0100 ####[facility] [address] [place], [address] Basophils/100 WBC (Bld) 0.8 % Normal 0-1 [facility] Comment on above: Performed By: #### L 501.5425, L500.2500, L100.0100 ####[facility] [address] [place], [address] Eosinophils/100 WBC (Bld) 8.0 % High 0-5 [facility] Comment on above: Performed By: #### L 501.5425, L500.2500, L100.0100 ####[facility] [address] [place], [address] Erythrocyte distribution width (RBC) [Ratio] 13.2 % Normal 11.6-14.6 [facility] Comment on above: Performed By: #### L 501.5425, L500.2500, L100.0100 ####[facility] [address] [place], [address] Hematocrit (Bld) [Volume fraction] 33.5 % Low 37-47 [facility] Comment on above: Performed By: #### L 501.5425, L500.2500, L100.0100 ####[facility] [address] [place], [address] Hemoglobin (Bld) [Mass/Vol] 10.9 g/dL Low 12.0-15.0 [facility] Comment on above: Performed By: #### L 501.5425, L500.2500, L100.0100 ####[facility] [address] [place], [address] IG% 0.400 Normal 0.0-0.9 [facility] Comment on above: Result Comment: IG% - Immature Granulocytes (promyelocytes, myelocytes andmetamyelocytes) > 1% indicates that a LEFT SHIFT is Present. Performed By: #### L 501.5425, L500.2500, L100.0100 ####[facility] [address] [place], [address] Lymphocytes/100 WBC (Bld) 34.2 % Normal 19-41 [facility] Comment on above: Performed By: #### L 501.5425, L500.2500, L100.0100 ####[facility] [address] [place], [address] MCH (RBC) [Entitic mass] 30.6 pg Normal 27.0-32.0 [facility] Comment on above: Performed By: #### L 501.5425, L500.2500, L100.0100 ####[facility] [address] [place], [address] MCHC (RBC) [Mass/Vol] 32.5 g/dL Normal 32-36 [facility] Comment on above: Performed By: #### L 501.5425, L500.2500, L100.0100 ####[facility] [address] [place], [address] MCV (RBC) [Entitic vol] 94.1 fL Normal 81-99 [facility] Comment on above: Performed By: #### L 501.5425, L500.2500, L100.0100 ####[facility] [address] [place], [address] Monocytes/100 WBC (Bld) 10.0 % Normal 0-10 [facility] Comment on above: Performed By: #### L 501.5425, L500.2500, L100.0100 ####[facility] [address] [place], [address] Neutrophils/100 WBC (Bld) 46.6 % Low 47-70 [facility] Comment on above: Performed By: #### L 501.5425, L500.2500, L100.0100 ####[facility] [address] [place], [address] Nucleated RBC (Bld) [#/Vol] 0 10*3/uL Normal 0-5 [facility] Comment on above: Performed By: #### L 501.5425, L500.2500, L100.0100 ####[facility] [address] [place], [address] Platelet mean volume (Bld) [Entitic vol] 9.4 fL Normal 6.2-12.0 [facility] Comment on above: Performed By: #### L 501.5425, L500.2500, L100.0100 ####[facility] [address] [place], [address] Platelets (Bld) [#/Vol] 202 10*3/uL Normal 150-450 [facility] Comment on above: Performed By: #### L 501.5425, L500.2500, L100.0100 ####[facility] [address] [place], [address] RBC (Bld) [#/Vol] 3.56 10*6/uL Low 4.2-5.4 [facility] Comment on above: Performed By: #### L 501.5425, L500.2500, L100.0100 ####[facility] [address] [place], [address] RDW SD 45.9 fl High 35.1-43.9 [facility] Comment on above: Performed By: #### L 501.5425, L500.2500, L100.0100 ####[facility] [address] [place], [address] WBC (Bld) [#/Vol] 7.1 10*3/uL Normal 4.4-11.0 [facility] Comment on above: Performed By: #### L 501.5425, L500.2500, L100.0100 ####[facility] [address] [place], [address] Chest 1 View (Portable)on Chest 1 View (Portable) Normal [facility] D-Dimer Quantitative (DVT/PE )on 2024 D-DIMER QUANT 0.47 FEU/ug/m Normal 0.27-0.49 [facility] Comment on above: Result Comment: NORM AL D-Dimer level (<0.50) indicates no DVT or PE. Performed By: #### L 300.8000 ####[facility] [address] [place], [address] Emergency Department Summary on 2024 Emergency Department Summary Normal [facility] L501.4020on 2024 TROPONIN-I HS 18 pg/mL Normal 3.0-54.0 [facility] Comment on above: Result Comment: Plea se Note: New Test Units and Gender Specific Reference Ranges. For more information see Policy Stat Procedure [place] High Sensitivity Troponin (TNIH) and attachments. Performed By: #### L 501.4020 ####[facility] [address] [place], [address] L501.5425on 2024 TROPONIN-I HS 17 pg/mL Normal 3.0-54.0 [facility] Comment on above: Order Comment: 1Y Result Comment: Plea se Note: New Test Units and Gender Specific Reference Ranges. For more information see Policy Stat Procedure [place] High Sensitivity Troponin (TNIH) and attachments. Performed By: #### L 501.5425, L500.2500, L100.0100 ####[facility] [address] [place], [address] CBC W/Diff, Automatedon Absolute Lymph 1.68 X10 3/uL Normal 0.83-4.51 [facility] Comment on above: Performed By: #### L 100.0100 ####[facility] [address] [place], [address] Absolute Neut 2.6 X10 3/uL Normal 2.0-7.7 [facility] Comment on above: Performed By: #### L 100.0100 ####[facility] [address] [place], [address] Basophils/100 WBC (Bld) 0.9 % Normal 0-1 [facility] Comment on above: Performed By: #### L 100.0100 ####[facility] [address] [place], [address] Eosinophils/100 WBC (Bld) 7.9 % High 0-5 [facility] Comment on above: Performed By: #### L 100.0100 ####[facility] [address] [place], [address] Erythrocyte distribution width (RBC) [Ratio] 13.2 % Normal 11.6-14.6 [facility] Comment on above: Performed By: #### L 100.0100 ####[facility] [address] [place], [address] Hematocrit (Bld) [Volume fraction] 37.5 % Normal 37-47 [facility] Comment on above: Performed By: #### L 100.0100 ####[facility] [address] [place], [address] Hemoglobin (Bld) [Mass/Vol] 11.9 g/dL Low 12.0-15.0 [facility] Comment on above: Performed By: #### L 100.0100 ####[facility] [address] [place], [address] IG% 0.200 Normal 0.0-0.9 [facility] Comment on above: Result Comment: IG% - Immature Granulocytes (promyelocytes, myelocytes andmetamyelocytes) > 1% indicates that a LEFT SHIFT is Present. Performed By: #### L 100.0100 ####[facility] [address] [place], [address] Lymphocytes/100 WBC (Bld) 31.0 % Normal 19-41 [facility] Comment on above: Performed By: #### L 100.0100 ####[facility] [address] [place], [address] MCH (RBC) [Entitic mass] 29.6 pg Normal 27.0-32.0 [facility] Comment on above: Performed By: #### L 100.0100 ####[facility] [address] [place], [address] MCHC (RBC) [Mass/Vol] 31.7 g/dL Low 32-36 [facility] Comment on above: Performed By: #### L 100.0100 ####[facility] [address] [place], [address] MCV (RBC) [Entitic vol] 93.3 fL Normal 81-99 [facility] Comment on above: Performed By: #### L 100.0100 ####[facility] [address] [place], [address] Monocytes/100 WBC (Bld) 11.3 % High 0-10 [facility] Comment on above: Performed By: #### L 100.0100 ####[facility] [address] [place], [address] Neutrophils/100 WBC (Bld) 48.7 % Normal 47-70 [facility] Comment on above: Performed By: #### L 100.0100 ####[facility] [address] [place], [address] Nucleated RBC (Bld) [#/Vol] 0 10*3/uL Normal 0-5 [facility] Comment on above: Performed By: #### L 100.0100 ####[facility] [address] [place], [address] Platelet mean volume (Bld) [Entitic vol] 9.4 fL Normal 6.2-12.0 [facility] Comment on above: Performed By: #### L 100.0100 ####[facility] [address] [place], [address] Platelets (Bld) [#/Vol] 247 10*3/uL Normal 150-450 [facility] Comment on above: Performed By: #### L 100.0100 ####[facility] [address] [place], [address] RBC (Bld) [#/Vol] 4.02 10*6/uL Low 4.2-5.4 [facility] Comment on above: Performed By: #### L 100.0100 ####[facility] [address] [place], [address] RDW SD 45.1 fl High 35.1-43.9 [facility] Comment on above: Performed By: #### L 100.0100 ####[facility] [address] [place], [address] WBC (Bld) [#/Vol] 5.4 10*3/uL Normal 4.4-11.0 [facility] Comment on above: Performed By: #### L 100.0100 ####[facility] [address] [place], [address] Gastroenterology Visit Repor ton 05-08-2024 Gastroenterology Visit Report Normal [facility] Dexa Bone Density Studyon Dexa Bone Density Study Normal [facility] Echo Completeon 04-22-2024 Echo Complete Normal [facility] CBC W/Diff, Automatedon 04-02 Absolute Lymph 1.84 X10 3/uL Normal 0.83-4.51 [facility] Comment on above: Order Comment: Order Date: 04/10/24Order Info: 0184-1 - CBCD Performed By: #### L 100.0100, L501.9520, L501.5200, L500.4050 ####[facility] [address] [place], [address] Absolute Neut 4.0 X10 3/uL Normal 2.0-7.7 [facility] Comment on above: Order Comment: Order Date: 04/10/24Order Info: 0184-1 - CBCD Performed By: #### L 100.0100, L501.9520, L501.5200, L500.4050 ####[facility] [address] [place], [address] Basophils/100 WBC (Bld) 0.9 % Normal 0-1 [facility] Comment on above: Order Comment: Order Date: 04/10/24Order Info: 0184-1 - CBCD Performed By: #### L 100.0100, L501.9520, L501.5200, L500.4050 ####[facility] [address] [place], [address] Eosinophils/100 WBC (Bld) 5.0 % Normal 0-5 [facility] Comment on above: Order Comment: Order Date: 04/10/24Order Info: 018-1 - CBCD Performed By: #### L 100.0100, L501.9520, L501.5200, L500.4050 ####[facility] [address] [place], [address] Erythrocyte distribution width (RBC) [Ratio] 13.0 % Normal 11.6-14.6 [facility] Comment on above: Order Comment: Order Date: 04/10/24Order Info: 0184-1 - CBCD Performed By: #### L 100.0100, L501.9520, L501.5200, L500.4050 ####[facility] [address] [place], [address] Hematocrit (Bld) [Volume fraction] 39.1 % Normal 37-47 [facility] Comment on above: Order Comment: Order Date: 04/10/24Order Info: 018- - CBCD Performed By: #### L 100.0100, L501.9520, L501.5200, L500.4050 ####[facility] [address] [place], [address] Hemoglobin (Bld) [Mass/Vol] 12.0 g/dL Normal 12.0-15.0 [facility] Comment on above: Order Comment: Order Date: 04/10/24Order Info: 018- - CBCD Performed By: #### L 100.0100, L501.9520, L501.5200, L500.4050 ####[facility] [address] [place], [address] IG% 0.400 Normal 0.0-0.9 [facility] Comment on above: Order Comment: Order Date: 04/10/24Order Info: 018- - CBCD Result Comment: IG% - Immature Granulocytes (promyelocytes, myelocytes andmetamyelocytes) > 1% indicates that a LEFT SHIFT is Present. Performed By: #### L 100.0100, L501.9520, L501.5200, L500.4050 ####[facility] [address] [place], [address] Lymphocytes/100 WBC (Bld) 26.2 % Normal 19-41 [facility] Comment on above: Order Comment: Order Date: 04/10/24Order Info: 018- - CBCD Performed By: #### L 100.0100, L501.9520, L501.5200, L500.4050 ####[facility] [address] [place], [address] MCH (RBC) [Entitic mass] 29.8 pg Normal 27.0-32.0 [facility] Comment on above: Order Comment: Order Date: 04/10/24Order Info: 018- - CBCD Performed By: #### L 100.0100, L501.9520, L501.5200, L500.4050 ####[facility] [address] [place], [address] MCHC (RBC) [Mass/Vol] 30.7 g/dL Low 32-36 [facility] Comment on above: Order Comment: Order Date: 04/10/24Order Info: 0184-1 - CBCD Performed By: #### L 100.0100, L501.9520, L501.5200, L500.4050 ####[facility] [address] [place], [address] MCV (RBC) [Entitic vol] 97.0 fL Normal 81-99 [facility] Comment on above: Order Comment: Order Date: 04/10/24Order Info: 018- - CBCD Performed By: #### L 100.0100, L501.9520, L501.5200, L500.4050 ####[facility] [address] [place], [address] Monocytes/100 WBC (Bld) 10.7 % High 0-10 [facility] Comment on above: Order Comment: Order Date: 04/10/24Order Info: 018- - CBCD Performed By: #### L 100.0100, L501.9520, L501.5200, L500.4050 ####[facility] [address] [place], [address] Neutrophils/100 WBC (Bld) 56.8 % Normal 47-70 [facility] Comment on above: Order Comment: Order Date: 04/10/24Order Info: 0184-1 - CBCD Performed By: #### L 100.0100, L501.9520, L501.5200, L500.4050 ####[facility] [address] [place], [address] Nucleated RBC (Bld) [#/Vol] 0 10*3/uL Normal 0-5 [facility] Comment on above: Order Comment: Order Date: 04/10/24Order Info: 0184-1 - CBCD Performed By: #### L 100.0100, L501.9520, L501.5200, L500.4050 ####[facility] [address] [place], [address] Platelet mean volume (Bld) [Entitic vol] 9.2 fL Normal 6.2-12.0 [facility] Comment on above: Order Comment: Order Date: 04/10/24Order Info: 0184-1 - CBCD Performed By: #### L 100.0100, L501.9520, L501.5200, L500.4050 ####[facility] [facility] [address] [place], [address] Platelets (Bld) [#/Vol] 310 10*3/uL Normal 150-450 [facility] Comment on above: Order Comment: Order Date: 04/10/24Order Info: 0184-1 - CBCD Performed By: #### L 100.0100, L501.9520, L501.5200, L500.4050 ####[facility] [address] [place], [address] RBC (Bld) [#/Vol] 4.03 10*6/uL Low 4.2-5.4 [facility] Comment on above: Order Comment: Order Date: 04/10/24Order Info: 0184-1 - CBCD Performed By: #### L 100.0100, L501.9520, L501.5200, L500.4050 ####[facility] [address] [place], [address] RDW SD 46.6 fl High 35.1-43.9 [facility] Comment on above: Order Comment: Order Date: 04/10/24Order Info: 0184-1 - CBCD Performed By: #### L 100.0100, L501.9520, L501.5200, L500.4050 ####[facility] [address] [place], [address] WBC (Bld) [#/Vol] 7.0 10*3/uL Normal 4.4-11.0 [facility] Comment on above: Order Comment: Order Date: 04/10/24Order Info: 0184-1 - CBCD Performed By: #### L 100.0100, L501.9520, L501.5200, L500.4050 ####[facility] [address] [place], [address] Comprehensive Metabolic Prof ilon 04-12-2024 Albumin [Mass/Vol] 3.6 g/dL Normal 3.2-5.0 [facility] Comment on above: Order Comment: Order Date: 04/10/24Order Info: 0786-1 - CMPOrder Info: [id number] - MGOrder Info: 301-3 - TSH Performed By: #### L 100.0100, L501.9520, L501.5200, L500.4050 ####[facility] [address] [place], [address] Albumin/Globulin [Mass ratio] 1.2 {ratio} Normal 0.9-2.4 [facility] Comment on above: Order Comment: Order Date: 04/10/24Order Info: 0786-1 - CMPOrder Info: [id number] - MGOrder Info: 3016-3 - TSH Performed By: #### L 100.0100, L501.9520, L501.5200, L500.4050 ####[facility] [address] [place], [address] ALK P 74 U/L Normal 45-117 [facility] Comment on above: Order Comment: Order Date: 04/10/24Order Info: 07-1 - CMPOrder Info: - MGOrder Info: 3016-3 - TSH Performed By: #### L 100.0100, L501.9520, L501.5200, L500.4050 ####[facility] [address] [place], [address] ALT [Catalytic activity/Vol] 12 U/L Low 13-56 [facility] Comment on above: Order Comment: Order Date: 04/10/24Order Info: 785-1 - CMPOrder Info: [id number] - MGOrder Info: 301-3 - TSH Performed By: #### L 100.0100, L501.9520, L501.5200, L500.4050 ####[facility] [address] [place], [address] AST [Catalytic activity/Vol] 12 U/L Low 15-37 [facility] Comment on above: Order Comment: Order Date: 04/10/24Order Info: 785- - CMPOrder Info: - MGOrder Info: 3 - TSH Performed By: #### L 100.0100, L501.9520, L501.5200, L500.4050 ####[facility] [address] [place], [address] Bilirubin [Mass/Vol] 0.30 mg/dL Normal 0.20-1.00 [facility] Comment on above: Order Comment: Order Date: 04/10/24Order Info: 1 - CMPOrder Info: - MGOrder Info: [id number] - TSH Result Comment: For patients on eltrombopag therapy, use of Dimension [place] TBIL is not recommended. Performed By: #### L 100.0100, L501.9520, L501.5200, L500.4050 ####[facility] [address] [place], [address] BUN/CRE 20.0 RATIO Normal 10-20 [facility] Comment on above: Order Comment: Order Date: 04/10/24Order Info: 785-1 - CMPOrder Info: [id number] - MGOrder Info: 301-3 - TSH Performed By: #### L 100.0100, L501.9520, L501.5200, L500.4050 ####[facility] [address] [place], [address] CA,Total 9.2 mg/dL Normal 8.5-10.1 [facility] Comment on above: Order Comment: Order Date: 04/10/24Order Info: 86-1 - CMPOrder Info: - MGOrder Info: 3 - TSH Performed By: #### L 100.0100, L501.9520, L501.5200, L500.4050 ####[facility] [address] [place], [address] Chloride [Moles/Vol] 104 mmol/L Normal 98-107 [facility] Comment on above: Order Comment: Order Date: 04/10/24Order Info: 785-1 - CMPOrder Info: - MGOrder Info: 3 - TSH Performed By: #### L 100.0100, L501.9520, L501.5200, L500.4050 ####[facility] [address] [place], [address] CO2 [Moles/Vol] 30.0 mmol/L Normal 21.0-32.0 [facility] Comment on above: Order Comment: Order Date: 04/10/24Order Info: 1 - CMPOrder Info: MGOrder Info: 3 - TSH Performed By: #### L 100.0100, L501.9520, L501.5200, L500.4050 ####[facility] [address] [place], [address] Creatinine [Mass/Vol] 0.90 mg/dL Normal 0.55-1.02 [facility] Comment on above: Order Comment: Order Date: 04/10/24Order Info: 86-1 - CMPOrder Info: - MGOrder Info: 3 - TSH Result Comment: The validity of the calculated GFR GFRAA in patients over70 years has not been determined. Clinical correlation isessential. Performed By: #### L 100.0100, L501.9520, L501.5200, L500.4050 ####[facility] [address] [place], [address] EST GFR - AA 77 mL/min Normal >60 [facility] Comment on above: Order Comment: Order Date: 04/10/24Order Info: 0786-1 - CMPOrder Info: [id number] - MGOrder Info: 3016-3 - TSH Result Comment: Afri can Portuguese GFR Calc Performed By: #### L 100.0100, L501.9520, L501.5200, L500.4050 ####[facility] [address] [place], [address] GAP 5 Normal 5-15 [facility] Comment on above: Order Comment: Order Date: 04/10/24Order Info: 07-1 - CMPOrder Info: [id number] - MGOrder Info: 3 - TSH Performed By: #### L 100.0100, L501.9520, L501.5200, L500.4050 ####[facility] [address] [place], [address] GFR/1.73 sq M.predicted among non-blacks MDRD (S/P/Bld) [Vol rate/Area] 64 mL/min/{1.73_m2} Normal >60 [facility] Comment on above: Order Comment: Order Date: 04/10/24Order Info: 0786-1 - CMPOrder Info: [id number] - MGOrder Info: 3016-3 - TSH Result Comment: Non- GFR Calc Performed By: #### L 100.0100, L501.9520, L501.5200, L500.4050 ####[facility] [address] [place], [address] Globulin (S) [Mass/Vol] 3.0 g/dL Normal 2.2-4.2 [facility] Comment on above: Order Comment: Order Date: 04/10/24Order Info: 785-1 - CMPOrder Info: - MGOrder Info: 3015-3 - TSH Performed By: #### L 100.0100, L501.9520, L501.5200, L500.4050 ####[facility] [address] [place], [address] Glucose [Mass/Vol] 99 mg/dL Normal 74-106 [facility] Comment on above: Order Comment: Order Date: 04/10/24Order Info: 785-1 - CMPOrder Info: - MGOrder Info: 3 - TSH Performed By: #### L 100.0100, L501.9520, L501.5200, L500.4050 ####[facility] [address] [place], [address] Potassium [Moles/Vol] 3.9 mmol/L Normal 3.5-5.1 [facility] Comment on above: Order Comment: Order Date: 04/10/24Order Info: 785-1 - CMPOrder Info: - MGOrder Info: 3 - TSH Performed By: #### L 100.0100, L501.9520, L501.5200, L500.4050 ####[facility] [address] [place], [address] Sodium [Moles/Vol] 139 mmol/L Normal 136-145 [facility] Comment on above: Order Comment: Order Date: 04/10/24Order Info: 785-1 - CMPOrder Info: - MGOrder Info: 3015-3 - TSH Performed By: #### L 100.0100, L501.9520, L501.5200, L500.4050 ####[facility] [address] [place], [address] T PROT 6.6 g/dL Normal 6.4-8.2 [facility] Comment on above: Order Comment: Order Date: 04/10/24Order Info: 785- - CMPOrder Info: - MGOrder Info: 6-3 - TSH Performed By: #### L 100.0100, L501.9520, L501.5200, L500.4050 ####[facility] [address] [place], [address] Urea nitrogen [Mass/Vol] 18 mg/dL Normal 7-18 [facility] Comment on above: Order Comment: Order Date: 04/10/24Order Info: 785- - CMPOrder Info: - MGOrder Info: 3015-3 - TSH Performed By: #### L 100.0100, L501.9520, L501.5200, L500.4050 ####[facility] [address] [place], [address] Magnesiumon 04-12-2024 Magnesium [Mass/Vol] 2.0 mg/dL Normal 1.6-2.6 [facility] Comment on above: Order Comment: Order Date: 04/10/24Order Info: 785-07 - CMPOrder Info: - MGOrder Info: 6-3 - TSH Performed By: #### L 100.0100, L501.9520, L501.5200, L500.4050 ####[facility] [address] [place], [address] Thyroid Stim Hormone (TSH)on 04-12-2024 TSH 1.180 uIU/mL Normal 0.358-3.740 [facility] Comment on above: Order Comment: Order Date: 04/10/24Order Info: 07- - CMPOrder Info: - MGOrder Info: 6-3 - TSH Performed By: #### L 100.0100, L501.9520, L501.5200, L500.4050 ####[facility] [address] [place], [address] Urine Cultureon 03-24-2024 URC Normal [facility] Comment on above: Performed By: #### M 100.2200 ####[facility] [address] [place], [address] Inital Evaluation (1) - PTon 02-28-2024 Inital Evaluation (1) - PT Normal [facility] CBC W/Diff, Automatedon 08-0 Absolute Lymph 1.27 X10 3/uL Normal 0.83-4.51 [facility] Comment on above: Order Comment: Order Date: 02/07/24Order Info: 0184-1 - CBCD Performed By: #### L 100.0100 ####[facility] [address] [place], [address] Absolute Neut 1.8 X10 3/uL Low 2.0-7.7 [facility] Comment on above: Order Comment: Order Date: 02/07/24Order Info: 0184-1 - CBCD Performed By: #### L 100.0100 ####[facility] [address] [place], [address] Basophils/100 WBC (Bld) 0.8 % Normal 0-1 [facility] Comment on above: Order Comment: Order Date: 02/07/24Order Info: 0184-1 - CBCD Performed By: #### L 100.0100 ####[facility] [address] [place], [address] Eosinophils/100 WBC (Bld) 10.9 % High 0-5 [facility] Comment on above: Order Comment: Order Date: 02/07/24Order Info: 0184-1 - CBCD Performed By: #### L 100.0100 ####[facility] [address] [place], [address] Erythrocyte distribution width (RBC) [Ratio] 14.0 % Normal 11.6-14.6 [facility] Comment on above: Order Comment: Order Date: 02/07/24Order Info: 0184-1 - CBCD Performed By: #### L 100.0100 ####[facility] [address] [place], [address] Hematocrit (Bld) [Volume fraction] 35.3 % Low 37-47 [facility] Comment on above: Order Comment: Order Date: 02/07/24Order Info: 183- - CBCD Performed By: #### L 100.0100 ####[facility] [address] [place], [address] Hemoglobin (Bld) [Mass/Vol] 10.9 g/dL Low 12.0-15.0 [facility] Comment on above: Order Comment: Order Date: 02/07/24Order Info: 183- - CBCD Performed By: #### L 100.0100 ####[facility] [address] [place], [address] IG% 0.300 Normal 0.0-0.9 [facility] Comment on above: Order Comment: Order Date: 02/07/24Order Info: 183- - CBCD Result Comment: IG% - Immature Granulocytes (promyelocytes, myelocytes andmetamyelocytes) > 1% indicates that a LEFT SHIFT is Present. Performed By: #### L 100.0100 ####[facility] [address] [place], [address] Lymphocytes/100 WBC (Bld) 32.2 % Normal 19-41 [facility] Comment on above: Order Comment: Order Date: 02/07/24Order Info: 018- - CBCD Performed By: #### L 100.0100 ####[facility] [address] [place], [address] MCH (RBC) [Entitic mass] 30.8 pg Normal 27.0-32.0 [facility] Comment on above: Order Comment: Order Date: 02/07/24Order Info: 0184-1 - CBCD Performed By: #### L 100.0100 ####[facility] [address] [place], [address] MCHC (RBC) [Mass/Vol] 30.9 g/dL Low 32-36 [facility] Comment on above: Order Comment: Order Date: 02/07/24Order Info: 0184-1 - CBCD Performed By: #### L 100.0100 ####[facility] [address] [place], [address] MCV (RBC) [Entitic vol] 99.7 fL High 81-99 [facility] Comment on above: Order Comment: Order Date: 02/07/24Order Info: 0184-1 - CBCD Performed By: #### L 100.0100 ####[facility] [address] [place], [address] Monocytes/100 WBC (Bld) 11.2 % High 0-10 [facility] Comment on above: Order Comment: Order Date: 02/07/24Order Info: 0184-1 - CBCD Performed By: #### L 100.0100 ####[facility] [address] [place], [address] Neutrophils/100 WBC (Bld) 44.6 % Low 47-70 [facility] Comment on above: Order Comment: Order Date: 02/07/24Order Info: 0184-1 - CBCD Performed By: #### L 100.0100 ####[facility] [address] [place], [address] Nucleated RBC (Bld) [#/Vol] 0 10*3/uL Normal 0-5 [facility] Comment on above: Order Comment: Order Date: 02/07/24Order Info: 0184-1 - CBCD Performed By: #### L 100.0100 ####[facility] [address] [place], [address] Platelet mean volume (Bld) [Entitic vol] 8.9 fL Normal 6.2-12.0 [facility] Comment on above: Order Comment: Order Date: 02/07/24Order Info: 0184-1 - CBCD Performed By: #### L 100.0100 ####[facility] [address] [place], [address] Platelets (Bld) [#/Vol] 248 10*3/uL Normal 150-450 [facility] Comment on above: Order Comment: Order Date: 02/07/24Order Info: 0184-1 - CBCD Performed By: #### L 100.0100 ####[facility] [address] [place], [address] RBC (Bld) [#/Vol] 3.54 10*6/uL Low 4.2-5.4 [facility] Comment on above: Order Comment: Order Date: 02/07/24Order Info: 0184-1 - CBCD Performed By: #### L 100.0100 ####[facility] [address] [place], [address] RDW SD 51.7 fl High 35.1-43.9 [facility] Comment on above: Order Comment: Order Date: 02/07/24Order Info: 0184-1 - CBCD Performed By: #### L 100.0100 ####[facility] [address] [place], [address] WBC (Bld) [#/Vol] 3.9 10*3/uL Low 4.4-11.0 [facility] Comment on above: Order Comment: Order Date: 02/07/24Order Info: 0184-1 - CBCD Performed By: #### L 100.0100 ####[facility] [address] [place], [address] Miscellaneous Lab Procedureo n 01-27-2024 MISC LAB TEST Normal [facility] Comment on above: Order Comment: 19396 3 A1C Result Comment: TEST RESULTS LIMITSHemoglobin A1c 5.3 % 4.8-5.6 Please Note: Prediabetes: 5.7 - 6.4 Diabetes: >6.4 Glycemic control for adults with diabetes: <7.0 _ TESTING PERFORMED AT [facility]. ORIGINAL REPORT ON FILE IN LAB CONTAINS ADDITIONAL TEST SITE INFORMATION. Performed By: #### L 801.1541 ####[facility] [address] [place], [address] Vitamin D 1,25-Dihydroxyon 0 01-22-2024 VIT D 1,25 DIHY 79.3 pg/mL Normal 24.8-81.5 [facility] Comment on above: Result Comment: Perf ormed at: [address] [id number] Director: Marlen Alcazar MD, Phone: [phone] Performed By: #### L 9077.8530 ####[facility] [address] [place], [address] Basic Metabolic Profile (BMP )on 01-19-2024 BUN/CRE 28.0 RATIO High 10-20 [facility] Comment on above: Performed By: #### L 100.0100, L500.2500 ####[facility] [address] [place], [address] CA,Total 8.2 mg/dL Low 8.5-10.1 [facility] Comment on above: Performed By: #### L 100.0100, L500.2500 ####[facility] [address] [place], [address] Chloride [Moles/Vol] 112 mmol/L High 98-107 [facility] Comment on above: Performed By: #### L 100.0100, L500.2500 ####[facility] [address] [place], [address] CO2 [Moles/Vol] 24.0 mmol/L Normal 21.0-32.0 [facility] Comment on above: Performed By: #### L 100.0100, L500.2500 ####[facility] [address] [place], [address] Creatinine [Mass/Vol] 0.64 mg/dL Normal 0.55-1.02 [facility] Comment on above: Result Comment: The validity of the calculated GFR GFRAA in patients over70 years has not been determined. Clinical correlation isessential. Performed By: #### L 100.0100, L500.2500 ####[facility] [address] [place], [address] ECRCL 40.80 ml/min Normal [facility] Comment on above: Performed By: #### L 100.0100, L500.2500 ####[facility] [address] [place], [address] EST GFR - AA 113 mL/min Normal >60 [facility] Comment on above: Result Comment: Afri can Portuguese GFR Calc Performed By: #### L 100.0100, L500.2500 ####[facility] [address] [place], [address] GAP 4 Low 5-15 [facility] Comment on above: Performed By: #### L 100.0100, L500.2500 ####[facility] [address] [place], [address] GFR/1.73 sq M.predicted among non-blacks MDRD (S/P/Bld) [Vol rate/Area] 93 mL/min/{1.73_m2} Normal >60 [facility] Comment on above: Result Comment: Non- GFR Calc Performed By: #### L 100.0100, L500.2500 ####[facility] [address] [place], [address] Glucose [Mass/Vol] 91 mg/dL Normal 74-106 [facility] Comment on above: Performed By: #### L 100.0100, L500.2500 ####[facility] [address] [place], [address] Potassium [Moles/Vol] 3.9 mmol/L Normal 3.5-5.1 [facility] Comment on above: Performed By: #### L 100.0100, L500.2500 ####[facility] [address] [place], [address] Sodium [Moles/Vol] 140 mmol/L Normal 136-145 [facility] Comment on above: Performed By: #### L 100.0100, L500.2500 ####[facility] [address] [place], [address] Urea nitrogen [Mass/Vol] 18 mg/dL Normal 7-18 [facility] Comment on above: Performed By: #### L 100.0100, L500.2500 ####[facility] [address] [place], [address] CBC W/Diff, Automatedon 07- Absolute Lymph 1.73 X10 3/uL Normal 0.83-4.51 [facility] Comment on above: Performed By: #### L 100.0100, L500.2500 ####[facility] [address] [place], [address] Absolute Neut 5.2 X10 3/uL Normal 2.0-7.7 [facility] Comment on above: Performed By: #### L 100.0100, L500.2500 ####[facility] [address] [place], [address] Basophils/100 WBC (Bld) 0.6 % Normal 0-1 [facility] Comment on above: Performed By: #### L 100.0100, L500.2500 ####[facility] [address] [place], [address] Eosinophils/100 WBC (Bld) 4.8 % Normal 0-5 [facility] Comment on above: Performed By: #### L 100.0100, L500.2500 ####[facility] [address] [place], [address] Erythrocyte distribution width (RBC) [Ratio] 15.3 % High 11.6-14.6 [facility] Comment on above: Performed By: #### L 100.0100, L500.2500 ####[facility] [address] [place], [address] Hematocrit (Bld) [Volume fraction] 27.7 % Low 37-47 [facility] Comment on above: Performed By: #### L 100.0100, L500.2500 ####[facility] [address] [place], [address] Hemoglobin (Bld) [Mass/Vol] 9.2 g/dL Low 12.0-15.0 [facility] Comment on above: Performed By: #### L 100.0100, L500.2500 ####[facility] [address] [place], [address] IG% 0.400 Normal 0.0-0.9 [facility] Comment on above: Result Comment: IG% - Immature Granulocytes (promyelocytes, myelocytes andmetamyelocytes) > 1% indicates that a LEFT SHIFT is Present. Performed By: #### L 100.0100, L500.2500 ####[facility] [address] [place], [address] Lymphocytes/100 WBC (Bld) 21.4 % Normal 19-41 [facility] Comment on above: Performed By: #### L 100.0100, L500.2500 ####[facility] [address] [place], [address] MCH (RBC) [Entitic mass] 31.2 pg Normal 27.0-32.0 [facility] Comment on above: Performed By: #### L 100.0100, L500.2500 ####[facility] [address] [place], [address] MCHC (RBC) [Mass/Vol] 33.2 g/dL Normal 32-36 [facility] Comment on above: Performed By: #### L 100.0100, L500.2500 ####[facility] [address] [place], [address] MCV (RBC) [Entitic vol] 93.9 fL Normal 81-99 [facility] Comment on above: Performed By: #### L 100.0100, L500.2500 ####[facility] [address] [place], [address] Monocytes/100 WBC (Bld) 8.3 % Normal 0-10 [facility] Comment on above: Performed By: #### L 100.0100, L500.2500 ####[facility] [address] [place], [address] Neutrophils/100 WBC (Bld) 64.5 % Normal 47-70 [facility] Comment on above: Performed By: #### L 100.0100, L500.2500 ####[facility] [address] [place], [address] Nucleated RBC (Bld) [#/Vol] 0 10*3/uL Normal 0-5 [facility] Comment on above: Performed By: #### L 100.0100, L500.2500 ####[facility] [address] [place], [address] Platelet mean volume (Bld) [Entitic vol] 9.4 fL Normal 6.2-12.0 [facility] Comment on above: Performed By: #### L 100.0100, L500.2500 ####[facility] [address] [place], [address] Platelets (Bld) [#/Vol] 137 10*3/uL Low 150-450 [facility] Comment on above: Performed By: #### L 100.0100, L500.2500 ####[facility] [address] [place], [address] RBC (Bld) [#/Vol] 2.95 10*6/uL Low 4.2-5.4 [facility] Comment on above: Performed By: #### L 100.0100, L500.2500 ####[facility] [address] [place], [address] RDW SD 52.5 fl High 35.1-43.9 [facility] Comment on above: Performed By: #### L 100.0100, L500.2500 ####[facility] [address] [place], [address] WBC (Bld) [#/Vol] 8.1 10*3/uL Normal 4.4-11.0 [facility] Comment on above: Performed By: #### L 100.0100, L500.2500 ####[facility] [address] [place], [address] Discharge Instructionon 12-31 Discharge Instruction Normal [facility] HH, Hemoglobin AND Hematocri ton 01-19-2024 Hematocrit (Bld) [Volume fraction] 29.0 % Low 37-47 [facility] Comment on above: Performed By: #### L 100.0600 ####[facility] [address] [place], [address] Hemoglobin (Bld) [Mass/Vol] 9.4 g/dL Low 12.0-15.0 [facility] Comment on above: Performed By: #### L 100.0600 ####[facility] [address] [place], [address] MR/PN.GIon 01-19-2024 MR/PN.GI Normal [facility] MR/LZIROSWU7wp 01-19-2024 MR/POSTOPAN2 Normal [facility] 12 Lead EKGon 01-18-2024 12 Lead EKG Normal [facility] BRCon 01-18-2024 RC Normal [facility] Comment on above: Result Comment: [id number] ON RC TRANSFUSED 01/18/24 [id number] ON RC TRANSFUSED 01/18/24 1707 Performed By: #### B RC ####[facility] [address] [place], [address] Basic Metabolic Profile (BMP )on 01-18-2024 BUN/CRE 45.5 RATIO High 10-20 [facility] Comment on above: Performed By: #### L 500.2500, L500.3400, L300.4310, L503.6005, M100.7900, L100.0100, L300.3900, BTS ####[facility] [address] [place], [address] CA,Total 8.3 mg/dL Low 8.5-10.1 [facility] Comment on above: Performed By: #### L 500.2500, L500.3400, L300.4310, L503.6005, M100.7900, L100.0100, L300.3900, BTS ####[facility] [address] [place], [address] Chloride [Moles/Vol] 104 mmol/L Normal 98-107 [facility] Comment on above: Performed By: #### L 500.2500, L500.3400, L300.4310, L503.6005, M100.7900, L100.0100, L300.3900, BTS ####[facility] [address] [place], [address] CO2 [Moles/Vol] 23.0 mmol/L Normal 21.0-32.0 [facility] Comment on above: Performed By: #### L 500.2500, L500.3400, L300.4310, L503.6005, M100.7900, L100.0100, L300.3900, BTS ####[facility] [address] [place], [address] Creatinine [Mass/Vol] 1.21 mg/dL High 0.55-1.02 [facility] Comment on above: Result Comment: The validity of the calculated GFR GFRAA in patients over70 years has not been determined. Clinical correlation isessential. Performed By: #### L 500.2500, L500.3400, L300.4310, L503.6005, M100.7900, L100.0100, L300.3900, BTS ####[facility] [address] [place], [address] ECRCL 27.70 ml/min Normal [facility] Comment on above: Performed By: #### L 500.2500, L500.3400, L300.4310, L503.6005, M100.7900, L100.0100, L300.3900, BTS ####[facility] [address] [place], [address] EST GFR - AA 55 mL/min Low >60 [facility] Comment on above: Result Comment: Afri can Portuguese GFR Calc Performed By: #### L 500.2500, L500.3400, L300.4310, L503.6005, M100.7900, L100.0100, L300.3900, BTS ####[facility] [address] [place], [address] GAP 12 Normal 5-15 [facility] Comment on above: Performed By: #### L 500.2500, L500.3400, L300.4310, L503.6005, M100.7900, L100.0100, L300.3900, BTS ####[facility] [address] [place], [address] GFR/1.73 sq M.predicted among non-blacks MDRD (S/P/Bld) [Vol rate/Area] 45 mL/min/{1.73_m2} Low >60 [facility] Comment on above: Result Comment: Non- GFR Calc Performed By: #### L 500.2500, L500.3400, L300.4310, L503.6005, M100.7900, L100.0100, L300.3900, BTS ####[facility] [address] [place], [address] Glucose [Mass/Vol] 221 mg/dL High 74-106 [facility] Comment on above: Result Comment: Gluc ose result greater than or equal to 200 mg/dLsuggests DIABETES MELLITUS per A.D.A. criteria. Performed By: #### L 500.2500, L500.3400, L300.4310, L503.6005, M100.7900, L100.0100, L300.3900, BTS ####[facility] [address] [place], [address] Potassium [Moles/Vol] 3.6 mmol/L Normal 3.5-5.1 [facility] Comment on above: Performed By: #### L 500.2500, L500.3400, L300.4310, L503.6005, M100.7900, L100.0100, L300.3900, BTS ####[facility] [address] [place], [address] Sodium [Moles/Vol] 139 mmol/L Normal 136-145 [facility] Comment on above: Performed By: #### L 500.2500, L500.3400, L300.4310, L503.6005, M100.7900, L100.0100, L300.3900, BTS ####[facility] [address] [place], [address] Urea nitrogen [Mass/Vol] 55 mg/dL High 7-18 [facility] Comment on above: Performed By: #### L 500.2500, L500.3400, L300.4310, L503.6005, M100.7900, L100.0100, L300.3900, BTS ####[facility] [address] [place], [address] CBC W/Diff, Automatedon 12-31-2023 Absolute Lymph 1.95 X10 3/uL Normal 0.83-4.51 [facility] Comment on above: Performed By: #### L 100.0100 ####[facility] [address] [place], [address] Absolute Neut 4.8 X10 3/uL Normal 2.0-7.7 [facility] Comment on above: Performed By: #### L 100.0100 ####[facility] [address] [place], [address] Basophils/100 WBC (Bld) 0.5 % Normal 0-1 [facility] Comment on above: Performed By: #### L 100.0100 ####[facility] [address] [place], [address] Eosinophils/100 WBC (Bld) 0.5 % Normal 0-5 [facility] Comment on above: Performed By: #### L 100.0100 ####[facility] [address] [place], [address] Erythrocyte distribution width (RBC) [Ratio] 13.5 % Normal 11.6-14.6 [facility] Comment on above: Performed By: #### L 100.0100 ####[facility] [address] [place], [address] Hematocrit (Bld) [Volume fraction] 19.2 % Low 37-47 [facility] Comment on above: Performed By: #### L 100.0100 ####[facility] [address] [place], [address] Hemoglobin (Bld) [Mass/Vol] 6.3 g/dL Low 12.0-15.0 [facility] Comment on above: Performed By: #### L 100.0100 ####[facility] [address] [place], [address] IG% 0.400 Normal 0.0-0.9 [facility] Comment on above: Result Comment: IG% - Immature Granulocytes (promyelocytes, myelocytes andmetamyelocytes) > 1% indicates that a LEFT SHIFT is Present. Performed By: #### L 100.0100 ####[facility] [address] [place], [address] Lymphocytes/100 WBC (Bld) 26.3 % Normal 19-41 [facility] Comment on above: Performed By: #### L 100.0100 ####[facility] [address] [place], [address] MCH (RBC) [Entitic mass] 32.1 pg High 27.0-32.0 [facility] Comment on above: Performed By: #### L 100.0100 ####[facility] [address] [place], [address] MCHC (RBC) [Mass/Vol] 32.8 g/dL Normal 32-36 [facility] Comment on above: Performed By: #### L 100.0100 ####[facility] [address] [place], [address] MCV (RBC) [Entitic vol] 98.0 fL Normal 81-99 [facility] Comment on above: Performed By: #### L 100.0100 ####[facility] [address] [place], [address] Monocytes/100 WBC (Bld) 8.1 % Normal 0-10 [facility] Comment on above: Performed By: #### L 100.0100 ####[facility] [address] [place], [address] Neutrophils/100 WBC (Bld) 64.2 % Normal 47-70 [facility] Comment on above: Performed By: #### L 100.0100 ####[facility] [address] [place], [address] Nucleated RBC (Bld) [#/Vol] 0 10*3/uL Normal 0-5 [facility] Comment on above: Performed By: #### L 100.0100 ####[facility] [address] [place], [address] Platelet mean volume (Bld) [Entitic vol] 9.2 fL Normal 6.2-12.0 [facility] Comment on above: Performed By: #### L 100.0100 ####[facility] [address] [place], [address] Platelets (Bld) [#/Vol] 156 10*3/uL Normal 150-450 [facility] Comment on above: Performed By: #### L 100.0100 ####[facility] [address] [place], [address] RBC (Bld) [#/Vol] 1.96 10*6/uL Low 4.2-5.4 [facility] Comment on above: Performed By: #### L 100.0100 ####[facility] [address] [place], [address] RDW SD 47.6 fl High 35.1-43.9 [facility] Comment on above: Performed By: #### L 100.0100 ####[facility] [address] [place], [address] WBC (Bld) [#/Vol] 7.4 10*3/uL Normal 4.4-11.0 [facility] Comment on above: Performed By: #### L 100.0100 ####[facility] [address] [place], [address] Absolute Lymph 2.22 X10 3/uL Normal 0.83-4.51 [facility] Comment on above: Performed By: #### L 500.2500, L500.3400, L300.4310, L503.6005, M100.7900, L100.0100, L300.3900, BTS ####[facility] [address] [place], [address] Absolute Neut 8.5 X10 3/uL High 2.0-7.7 [facility] Comment on above: Performed By: #### L 500.2500, L500.3400, L300.4310, L503.6005, M100.7900, L100.0100, L300.3900, BTS ####[facility] [address] [place], [address] Basophils/100 WBC (Bld) 0.6 % Normal 0-1 [facility] Comment on above: Performed By: #### L 500.2500, L500.3400, L300.4310, L503.6005, M100.7900, L100.0100, L300.3900, BTS ####[facility] [address] [place], [address] Eosinophils/100 WBC (Bld) 1.1 % Normal 0-5 [facility] Comment on above: Performed By: #### L 500.2500, L500.3400, L300.4310, L503.6005, M100.7900, L100.0100, L300.3900, BTS ####[facility] [address] [place], [address] Erythrocyte distribution width (RBC) [Ratio] 13.5 % Normal 11.6-14.6 [facility] Comment on above: Performed By: #### L 500.2500, L500.3400, L300.4310, L503.6005, M100.7900, L100.0100, L300.3900, BTS ####[facility] [address] [place], [place], [phone] Hematocrit (Bld) [Volume fraction] 27.1 % Low 37-47 [facility] Comment on above: Performed By: #### L 500.2500, L500.3400, L300.4310, L503.6005, M100.7900, L100.0100, L300.3900, BTS ####[facility] [address] [place], [place], [phone] Hemoglobin (Bld) [Mass/Vol] 8.6 g/dL Low 12.0-15.0 [facility] Comment on above: Performed By: #### L 500.2500, L500.3400, L300.4310, L503.6005, M100.7900, L100.0100, L300.3900, BTS ####[facility] [address] [place], [address] IG% 0.500 Normal 0.0-0.9 [facility] Comment on above: Result Comment: IG% - Immature Granulocytes (promyelocytes, myelocytes andmetamyelocytes) > 1% indicates that a LEFT SHIFT is Present. Performed By: #### L 500.2500, L500.3400, L300.4310, L503.6005, M100.7900, L100.0100, L300.3900, BTS ####[facility] [address] [place], [address] Lymphocytes/100 WBC (Bld) 18.7 % Low 19-41 [facility] Comment on above: Performed By: #### L 500.2500, L500.3400, L300.4310, L503.6005, M100.7900, L100.0100, L300.3900, BTS ####[facility] [address] [place], [address] MCH (RBC) [Entitic mass] 31.9 pg Normal 27.0-32.0 [facility] Comment on above: Performed By: #### L 500.2500, L500.3400, L300.4310, L503.6005, M100.7900, L100.0100, L300.3900, BTS ####[facility] [address] [place], [address] MCHC (RBC) [Mass/Vol] 31.7 g/dL Low 32-36 [facility] Comment on above: Performed By: #### L 500.2500, L500.3400, L300.4310, L503.6005, M100.7900, L100.0100, L300.3900, BTS ####[facility] [address] [place], [address] MCV (RBC) [Entitic vol] 100.4 fL High 81-99 [facility] Comment on above: Performed By: #### L 500.2500, L500.3400, L300.4310, L503.6005, M100.7900, L100.0100, L300.3900, BTS ####[facility] [address] [place], [address] Monocytes/100 WBC (Bld) 7.7 % Normal 0-10 [facility] Comment on above: Performed By: #### L 500.2500, L500.3400, L300.4310, L503.6005, M100.7900, L100.0100, L300.3900, BTS ####[facility] [address] [place], [address] Neutrophils/100 WBC (Bld) 71.4 % High 47-70 [facility] Comment on above: Performed By: #### L 500.2500, L500.3400, L300.4310, L503.6005, M100.7900, L100.0100, L300.3900, BTS ####[facility] [address] [place], [address] Nucleated RBC (Bld) [#/Vol] 0 10*3/uL Normal 0-5 [facility] Comment on above: Performed By: #### L 500.2500, L500.3400, L300.4310, L503.6005, M100.7900, L100.0100, L300.3900, BTS ####[facility] [address] [place], [address] Platelet mean volume (Bld) [Entitic vol] 9.5 fL Normal 6.2-12.0 [facility] Comment on above: Performed By: #### L 500.2500, L500.3400, L300.4310, L503.6005, M100.7900, L100.0100, L300.3900, BTS ####[facility] [address] [place], [address] Platelets (Bld) [#/Vol] 212 10*3/uL Normal 150-450 [facility] Comment on above: Performed By: #### L 500.2500, L500.3400, L300.4310, L503.6005, M100.7900, L100.0100, L300.3900, BTS ####[facility] [address] [place], [address] RBC (Bld) [#/Vol] 2.70 10*6/uL Low 4.2-5.4 [facility] Comment on above: Performed By: #### L 500.2500, L500.3400, L300.4310, L503.6005, M100.7900, L100.0100, L300.3900, BTS ####[facility] [address] [place], [address] RDW SD 49.0 fl High 35.1-43.9 [facility] Comment on above: Performed By: #### L 500.2500, L500.3400, L300.4310, L503.6005, M100.7900, L100.0100, L300.3900, BTS ####[facility] [address] [place], [address] WBC (Bld) [#/Vol] 11.9 10*3/uL High 4.4-11.0 [facility] Comment on above: Performed By: #### L 500.2500, L500.3400, L300.4310, L503.6005, M100.7900, L100.0100, L300.3900, BTS ####[facility] [address] [place], [address] CTA Abd/Pelvis W/WO Contrast on 01-18-2024 CTA Abd/Pelvis W/WO Contrast Normal [facility] Chest 1 View (Portable)on Chest 1 View (Portable) Normal [facility] EGD Reporton 01-18-2024 EGD Report Normal [facility] Emergency Department Summary on 01-18-2024 Emergency Department Summary Normal [facility] Ferritinon 01-18-2024 Ferritin [Mass/Vol] 61 ng/mL Normal 8-252 [facility] Comment on above: Performed By: #### L 503.5550, L503.6030 ####[facility] [address] [place], [address] H AND P Exam - Hospitaliston 01-18-2024 H&P Exam - Hospitalist Normal [facility] H&P Exam - Hospitalist Normal [facility] HH, Hemoglobin AND Hematocri ton 01-18-2024 Hematocrit (Bld) [Volume fraction] 29.2 % Low 37-47 [facility] Comment on above: Order Comment: Comme nts: 1 hour after transfusion complete Performed By: #### L 100.0600 ####[facility] [address] [place], [address] Hemoglobin (Bld) [Mass/Vol] 9.5 g/dL Low 12.0-15.0 [facility] Comment on above: Order Comment: Comme nts: 1 hour after transfusion complete Performed By: #### L 100.0600 ####[facility] [address] [place], [address] Iron+Iron Binding Capacityon 01-18-2024 Iron [Mass/Vol] 99 ug/dL Normal 50-170 [facility] Comment on above: Performed By: #### L 503.6550, L503.6030 ####[facility] [address] [place], [address] IRON SATURATION 39.4 Normal 15.0-55.0 [facility] Comment on above: Performed By: #### L 503.6550, L503.6030 ####[facility] [address] [place], [address] TIBC 251 ug/dL Normal 250-450 [facility] Comment on above: Performed By: #### L 503.6550, L503.6030 ####[facility] [address] [place], [address] Lactic Acidon 01-18-2024 Lactate [Moles/Vol] 0.7 mmol/L Normal 0.4-1.9 [facility] Comment on above: Performed By: #### L 503.6005 ####[facility] [address] [place], [address] Lactate [Moles/Vol] 0.7 mmol/L Normal 0.4-1.9 [facility] Comment on above: Order Comment: Y Performed By: #### L 503.6005 ####[facility] [address] [place], [address] Lactate [Moles/Vol] 6.4 mmol/L Invalid Interpretation Code 0.4-1.9 [facility] Comment on above: Order Comment: Y Result Comment: Crit ical Result(s) Called at: 02:16:24 01/18/2024 by:David Beavers lsparr. Results read back by same. Performed By: #### L 500.2500, L500.3400, L300.4310, L503.6005, M100.7900, L100.0100, L300.3900, BTS ####[facility] [address] [place], [address] Liver Profileon 01-18-2024 Albumin [Mass/Vol] 3.2 g/dL Normal 3.2-5.0 [facility] Comment on above: Performed By: #### L 500.2500, L500.3400, L300.4310, L503.6005, M100.7900, L100.0100, L300.3900, BTS ####[facility] [address] [place], [address] ALK P 45 U/L Normal 45-117 [facility] Comment on above: Performed By: #### L 500.2500, L500.3400, L300.4310, L503.6005, M100.7900, L100.0100, L300.3900, BTS ####[facility] [address] [place], [address] ALT [Catalytic activity/Vol] 12 U/L Low 13-56 [facility] Comment on above: Performed By: #### L 500.2500, L500.3400, L300.4310, L503.6005, M100.7900, L100.0100, L300.3900, BTS ####[facility] [address] [place], [address] AST [Catalytic activity/Vol] 13 U/L Low 15-37 [facility] Comment on above: Performed By: #### L 500.2500, L500.3400, L300.4310, L503.6005, M100.7900, L100.0100, L300.3900, BTS ####[facility] [address] [place], [address] Bilirubin [Mass/Vol] 0.20 mg/dL Normal 0.20-1.00 [facility] Comment on above: Result Comment: For patients on eltrombopag therapy, use of Dimension [place] TBIL is not recommended. Performed By: #### L 500.2500, L500.3400, L300.4310, L503.6005, M100.7900, L100.0100, L300.3900, BTS ####[facility] [address] [place], [address] Bilirubin.direct [Mass/Vol] 0.12 mg/dL Normal 0.00-0.30 [facility] Comment on above: Performed By: #### L 500.2500, L500.3400, L300.4310, L503.6005, M100.7900, L100.0100, L300.3900, BTS ####[facility] [address] [place], [address] Globulin (S) [Mass/Vol] 2.5 g/dL Normal 2.2-4.2 [facility] Comment on above: Performed By: #### L 500.2500, L500.3400, L300.4310, L503.6005, M100.7900, L100.0100, L300.3900, BTS ####[facility] [address] [place], [address] T PROT 5.7 g/dL Low 6.4-8.2 [facility] Comment on above: Performed By: #### L 500.2500, L500.3400, L300.4310, L503.6005, M100.7900, L100.0100, L300.3900, BTS ####[facility] [address] [place], [address] MR/CON.PCM.GIon 01-18-2024 MR/CON.PCM.GI Normal [facility] MR/POSTOP.ANEon 01-18-2024 MR/POSTOP.ANE Normal [facility] Magnesiumon 01-18-2024 Magnesium [Mass/Vol] 1.8 mg/dL Normal 1.6-2.6 [facility] Comment on above: Performed By: #### L 501.5200, L501.2300, L501.9520 ####[facility] [address] [place], [address] Partial Thromboplast Timeon 01-18-2024 aPTT Coag (Bld) [Time] 23.9 s Low 24.1-36.2 [facility] Comment on above: Performed By: #### L 500.2500, L500.3400, L300.4310, L503.6005, M100.7900, L100.0100, L300.3900, BTS ####[facility] [address] [place], [address] Phosphoruson 01-18-2024 Phosphate [Mass/Vol] 3.1 mg/dL Normal 2.5-4.9 [facility] Comment on above: Performed By: #### L 501.5200, L501.2300, L501.9520 ####[facility] [address] [place], [address] Prothrombin Time w/INRon INR Coag (PPP) [Relative time] 1.1 {INR} Normal [facility] Comment on above: Performed By: #### L 500.2500, L500.3400, L300.4310, L503.6005, M100.7900, L100.0100, L300.3900, BTS ####[facility] [address] [place], [address] PT Coag (PPP) [Time] 14.3 s Normal 11.7-14.9 [facility] Comment on above: Performed By: #### L 500.2500, L500.3400, L300.4310, L503.6005, M100.7900, L100.0100, L300.3900, BTS ####[facility] [address] [place], [address] Stool Occult Blood iFOBon STOB Positive Normal [facility] Comment on above: Performed By: #### L 500.2500, L500.3400, L300.4310, L503.6005, M100.7900, L100.0100, L300.3900, BTS ####[facility] [address] [place], [address] Thyroid Stim Hormone (TSH)on 01-18-2024 TSH 1.61 uIU/mL Normal 0.358-3.74 [facility] Comment on above: Performed By: #### L 501.5200, L501.2300, L501.9520 ####[facility] [address] [place], [address] Type AND Screenon 01-18-2024 ABO and Rh group Nom (Bld) Blood group O Rh(D) negative Normal [facility] Comment on above: Order Comment: A Performed By: #### L 500.2500, L500.3400, L300.4310, L503.6005, M100.7900, L100.0100, L300.3900, BTS ####[facility] [address] [place], [address] Urinalysis, Completeon 01-17 BACTERIA 0 SEEN Normal None Seen [facility] Comment on above: Order Comment: ROSINA CTOR TO SPECIFY Performed By: #### L 400.0001 ####[facility] [address] [place], [address] EPI,SQUAMOUS 0 SEEN Normal 5-10 [facility] Comment on above: Order Comment: ROSINA CTOR TO SPECIFY Performed By: #### L 400.0001 ####[facility] [address] [place], [address] Mucus Ql (Urine sed) 0 SEEN Normal [facility] Comment on above: Order Comment: ROSINA CTOR TO SPECIFY Performed By: #### L 400.0001 ####[facility] [address] [place], [address] RBC 0 SEEN Normal 0-5 [facility] Comment on above: Order Comment: ROSINA CTOR TO SPECIFY Performed By: #### L 400.0001 ####[facility] [address] [place], [address] WBC 0 SEEN Normal 0-5 [facility] Comment on above: Order Comment: ROSINA CTOR TO SPECIFY Performed By: #### L 400.0001 ####[facility] [address] [place], [address] EGDon 12-25-2023 Esophagogastroduodenoscop y Table formatting from [...] Shashi Hernandez RN 12/25/2023 1201 Procedure Location [facility] [place] [address] [place] [phone] Referring Provider Juju Hamm DO Procedure Provider Juju Hamm DO [facility] EGD Study observation Narrat nanda 12-25-2023 [...] Shashi Hernandez RN 12/25/2023 1201 Procedure Location [facility] [place] [address] [place] [phone] Referring Provider Juju Hamm DO Procedure Provider Juju Hamm DO [facility] Work Phone: [facility] Work Phone: Radiology Study observation (narrative) [facility] Work Phone: Surgical pathology studyon 0 12-25-2023 Surgical pathology study Pathology repor t.total SEE COMMENT Surgical Pathology Case: [id number] Authorizing Provider: Juju Hamm DO Collected: 12/25/2023 1200 Ordering Location: [facility] Received: 12/25/2023 1641 Center OR Pathologist: Puja [...] is submitted in toto in one cassette. [facility]: Received in formalin, labeled with the patient's name and hospital number, are 2 fragments of fatima, soft tissue aggregating to 0.4 x 0.3 x 0.3 cm. The specimen is submitted in toto in one cassette. [facility] lymphocyte countOrd ered By: Franc Quezada on 10-19-2023 Lymphocytes Auto (Unsp spec) [#/Vol] 1.33 10*3/uL 0.83-4.51 [facility] Automated lymphocyte count a s percentage of total leukocytesOrdered By: Franc Quezada on 10-19-2023 Lymphocytes/100 WBC Auto (Unsp spec) 24.4 % 19-41 [facility] Basophil percentageOrdered B y: Franc Quezada on 10-19-2023 Basophils/100 WBC (Bld) 0.7 % 0-1 [facility] Bilirubin [Mass/Vol] 0.30 mg/dL 0.20-1.00 [facility] Comment on above: For patients on eltr ombopag therapy, use of Dimension [place] TBIL is not recommended. Chloride [Moles/Vol] 106 mmol/L 98-107 [facility] Eosinophils/100 WBC (Bld) 7.9 % 0-5 [facility] Glucose [Mass/Vol] 84 mg/dL 74-106 [facility] Hemoglobin (Bld) [Mass/Vol] 12.2 g/dL 12.0-15.0 [facility] Monocytes/100 WBC (Bld) 11.4 % 0-10 [facility] Neutrophils (Bld) [#/Vol] 3.0 10*3/uL 2.0-7.7 [facility] Neutrophils/100 WBC (Bld) 55.2 % 47-70 [facility] Potassium [Moles/Vol] 4.9 mmol/L 3.5-5.1 [facility] Protein [Mass/Vol] 6.8 g/dL 6.4-8.2 [facility] Sodium [Moles/Vol] 140 mmol/L 136-145 [facility] WBC (Bld) [#/Vol] 5.5 10*3/uL 4.4-11.0 [facility] Determination of erythrocyte mean corpuscular volume (MCV)Ordered By: Franc Quezada on 10-19-2023 MCV (RBC) [Entitic vol] 99.0 fL 81-99 [facility] Erythrocyte distribution wid th ratioOrdered By: Frnac Quezada on 10-19-2023 Erythrocyte distribution width (RBC) [Ratio] 13.2 % 11.6-14.6 [facility] Erythrocyte distribution wid th standard deviationOrdered By: Franc Judi on 10-19-2023 Erythrocyte distribution width (RBC) [Entitic vol] 47.9 fL 35.1-43.9 [facility] Hematocrit Auto (Bld) [Volum e fraction]Ordered By: Franc Quezada on 10-19-2023 Hematocrit (Bld) [Volume fraction] 38.3 % 37-47 [facility] Immature granulocytes/100 WB C Auto (Bld)Ordered By: Franc Quezada on 10-19-2023 Immature granulocytes/100 WBC (Bld) 0.400 % 0.0-0.9 [facility] Comment on above: IG% - Immature Granu locytes (promyelocytes, myelocytes and metamyelocytes) > 1% indicates that a LEFT SHIFT is Present. Iron measurement (mass/mass) Ordered By: Franc Quezada on 10-19-2023 Iron (Unsp spec) [Mass/Mass] 90 ug/dL 50-170 [facility] - Chemistry and C hemistry - challengeOrdered By: Franc Quezada on 10-19-2023 Albumin/Globulin [Mass ratio] 1.3 {ratio} 0.9-2.4 [facility] ALP [Catalytic activity/Vol] 56 U/L 45-117 [facility] ALT [Catalytic activity/Vol] 13 U/L 13-56 [facility] CO2 [Moles/Vol] 30.0 mmol/L 21.0-32.0 [facility] Ferritin [Mass/Vol] 71 ng/mL 8-252 [facility] Globulin (S) [Mass/Vol] 3.0 g/dL 2.2-4.2 [facility] Urea nitrogen/Creatinine [Mass ratio] 25.6 mg/mg 10-20 [facility] - Hematology and Cell countsOrdered By: Franc Quezada on 10-19-2023 MCH (RBC) [Entitic mass] 31.5 pg 27.0-32.0 [facility] MCHC (RBC) [Mass/Vol] 31.9 g/dL 32-36 [facility] Nucleated RBC/100 WBC (Bld) [Ratio] 0 % 0-5 [facility] Platelet mean volume (Bld) [Entitic vol] 9.3 fL 6.2-12.0 [facility] Platelets (Bld) [#/Vol] 259 10*3/uL 150-450 [facility] No Panel InformationOrdered By: Franc Quezada on 10-19-2023 Estimated GFR (MDRD) Amer 86 mL/min >60 [facility] Comment on above: GFR Calc Estimated GFR (MDRD) Non-Af Amer 71 mL/min >60 [facility] Comment on above: Non- GFR Calc Folate 36.30 ng/mL 3.1-55.4 [facility] Total Iron Binding Capacity 301 ug/dL 250-450 [facility] Vitamin D 25-Hydroxy 47.2 ng/mL [facility] Comment on above: Vitamin D 25(OH) Sta tus Range Deficiency <20 ng/mL (50nmol/L) Insufficiency 20 - 30 ng/mL (50 - 75 nmol/L) Sufficiency 30 - 100 ng/mL (75 - 250 nmol/L) Toxicity >100 ng/mL (>250 nmol/L) RBC Auto (Bld) [#/Vol]Ordere d By: Franc Quezada on 10-19-2023 RBC (Bld) [#/Vol] 3.87 10*6/uL 4.2-5.4 [facility] Serum or plasma calcium anthony urement (mass/volume)Ordered By: Franc Quezada on 10-19-2023 Calcium [Mass/Vol] 9.1 mg/dL 8.5-10.1 [facility] Serum or plasma creatinine m easurement (mass/volume)Ordered By: Franc Quezada on 10-19-2023 Creatinine [Mass/Vol] 0.82 mg/dL 0.55-1.02 [facility] Comment on above: The validity of the calculated GFR & GFRAA in patients over 70 years has not been determined. Clinical correlation is essential. Serum or plasma iron saturat ion measurement (mass fraction)Ordered By: Franc Quezada on 10-19-2023 Iron saturation [Mass fraction] 29.9 % 15.0-55.0 [facility] Serum or plasma thyroid stim ulating hormone (TSH) measurement (units/volume)Ordered By: [facility] on 10-19-2023 TSH Qn 1.02 uIU/mL 0.358-3.74 [facility] Serum or plasma urea nitroge n measurement (mass/volume)Ordered By: Franc Quezada on 10-19-2023 Urea nitrogen [Mass/Vol] 21 mg/dL 7-18 [facility] Thin prep Papanicolaou smear with manual screeningOrdered By: Franc Quezada on 10-19-2023 Thin prep Papanicolaou smear with manual screening 3.8 g/dL 3.2-5.0 [facility] Thin prep Papanicolaou smear with manual screening 16 U/L 15-37 [facility] Thin prep Papanicolaou smear with manual screening 4 5-15 [facility] Culture, urineOrdered By: Anuel Bailey on 08-31-2023 Bacteria identified Cx Nom (U) Enterococcus faecalis [facility] Bacteria identified Cx Nom (U) Enterococcus faecalis [facility] Measure post void residualon 08-24-2023 65 ml by ultrasound [facility] Work Phone: [phone] [place] [address] Work Phone: Cystoscopy with Biospy Injec tionon 08-18-2023 Tia Anglin MD MPH 08/18/2023 1:09 PM Cystoscopy with Biospy Injection Date/Time: 08/18/2023 11:36 AM Performed by: Tia Anglin MD MPH Authorized by: Tia Anglin MD MPH [employer] present: yes Anesthesia: local anesthesia Procedure Details Cystoscope type: flexible Cystoscopy route: transurethral Cystoscopy location: [place] bladder Irrigation used: saline Position: dorsal lithotomy Urethra Urethra: normal Vagina Vagina: normal Bladder Bladder: normal Botox Injection Details Indication: overactive bladder Total number of injections: 5 Total number of units: 100 Post-Procedure Details Catheter placed: no Appearance of urine after procedure: clear Outcome: patient tolerated procedure well with no complications Disposition: discharged home in satisfactory condition Additional Details Lot number [id number], expiration 12-26. Sandie Ho [id number] Preoperative Diagnosis: Urinary Urgency Incontinence, Frequency Postoperative Diagnosis: Same Surgeon: Tia Anglin MD Sulfur Chloride Operator:none Estimated Blood Loss: Minimal Complications: None Indications [...] no complications. Routine post-cystoscopy instructions were given. [facility] Work Phone: [facility] Work Phone: POCT UA Automated manually r esultedon 08-18-2023 Appearance (U) Clear Clear [facility] Work Phone: [phone] Glucose Test strip (U) [Mass/Vol] Negative NEGATIVE mg/dl [facility] Work Phone: [phone] Hemoglobin Ql (U) TRACE-Intact Abnormal NEGATIVE [facility]: [phone] Interpretation and review of laboratory results Abnormal [facility] Work Phone: [phone] Leukocyte esterase Test strip Ql (U) Negative NEGATIVE [facility] Work Phone: [phone] Nitrite Ql (U) Negative NEGATIVE [facility] Work Phone: [phone] pH (U) 6.5 [pH] No Reference Range Established [facility] Work Phone: [phone] POC Bilirubin, Urine Negative NEGATIVE [facility] Work Phone: [phone] POC Color, Urine Yellow Straw, Yellow, Light-Yellow [facility] Work Phone: [phone] POC Ketones, Urine Negative NEGATIVE mg/dl [facility] Work Phone: [phone] POC Protein, Urine Negative NEGATIVE, 30 (1+) mg/dl [facility] Work Phone: [phone] POC Specific Aubrey, Urine 1.025 1.005 - 1.035 [facility] Work Phone: [phone] POC Urobilinogen, Urine 0.2 0.2, 1.0 EU/DL [facility] Work Phone: [phone] [facility] Work Phone: [phone] Absolute lymphocyte countOrd ered By: Mary Candelario on 06-30-2023 Lymphocytes Auto (Unsp spec) [#/Vol] 1.30 10*3/uL 0.83-4.51 [facility] Basophil percentageOrdered B y: Mary Candelario on 06-30-2023 Basophils/100 WBC (Bld) 1.5 % 0-1 [facility] Eosinophils/100 WBC (Bld) 6.3 % 0-5 [facility] Neutrophils (Bld) [#/Vol] 2.5 10*3/uL 2.0-7.7 [facility] Neutrophils/100 WBC (Bld) 54.8 % 47-70 [facility] WBC (Bld) [#/Vol] 4.6 10*3/uL 4.4-11.0 [facility] Blood erythrocytes count (nu mber/volume)Ordered By: Mary Candelario on 06-30-2023 RBC (Bld) [#/Vol] 4.81 10*6/uL 4.2-5.4 [facility] Blood hemoglobin measurement (mass/volume)Ordered By: Mary Candelario on 06-30-2023 Hemoglobin (Bld) [Mass/Vol] 12.5 g/dL 12.0-15.0 [facility] Blood lymphocytes/100 leukoc ytesOrdered By: Mary Candelario on 06-30-2023 Lymphocytes/100 WBC (Bld) 28.3 % 19-41 [facility] Blood monocytes/100 leukocyt esOrdered By: Mary Candelario on 06-30-2023 Monocytes/100 WBC (Bld) 8.9 % 0-10 [facility] Blood platelet adequacy dete ction by light microscopyOrdered By: Mary Candelario on 06-30-2023 Platelets LM Ql (Bld) ADEQUATE ADEQ [facility] Blood platelet mean volumeOr dered By: Mary Candelario on 06-30-2023 Platelet mean volume (Bld) [Entitic vol] 9.3 fL 6.2-12.0 [facility] Determination of erythrocyte mean corpuscular volume (MCV)Ordered By: Mary Candelario on 06-30-2023 MCV (RBC) [Entitic vol] 89.2 fL 81-99 [facility] Comment on above: Delta: 84.7 on 06/26-0510 Hematocrit Auto (Bld) [Volum e fraction]Ordered By: Mary Candelario on 06-30-2023 Hematocrit (Bld) [Volume fraction] 42.9 % 37-47 [facility] - Hematology and Cell countsOrdered By: Mary Candelario on 06-30-2023 Anisocytosis Ql (Bld) RARE [facility] Erythrocyte distribution width (RBC) [Entitic vol] 76.8 fL 35.1-43.9 [facility] Erythrocyte distribution width (RBC) [Ratio] 23.8 % 11.6-14.6 [facility] Immature granulocytes/100 WBC (Bld) 0.200 % 0.0-0.9 [facility] Comment on above: IG% - Immature Granu locytes (promyelocytes, myelocytes and metamyelocytes) > 1% indicates that a LEFT SHIFT is Present. MCH (RBC) [Entitic mass] 26.0 pg 27.0-32.0 [facility] Nucleated RBC/100 WBC (Bld) [Ratio] 0 % 0-5 [facility] MCHC Auto (RBC) [Mass/Vol]Or dered By: Mary Candelario on 06-30-2023 MCHC (RBC) [Mass/Vol] 29.1 g/dL 32-36 [facility] Comment on above: Delta: 31.2 on 06/26-0510 Platelets bldOrdered By: Mary Candelario on 06-30-2023 Platelets (Bld) [#/Vol] 334 10*3/uL 150-450 [facility] RBC morphologyOrdered By: Adrián Candelario on 06-30-2023 RBC morphology finding Nom (Bld) N CHROM NORMAL NORM C&C [facility] Absolute lymphocyte countOrd ered By: Casa Jain on 06-26-2023 Lymphocytes Auto (Unsp spec) [#/Vol] 1.45 10*3/uL 0.83-4.51 [facility] Basophil percentageOrdered B y: Casa Jain on 06-26-2023 Basophils/100 WBC (Bld) 0.5 % 0-1 [facility] Eosinophils/100 WBC (Bld) 7.6 % 0-5 [facility] Neutrophils (Bld) [#/Vol] 3.4 10*3/uL 2.0-7.7 [facility] Neutrophils/100 WBC (Bld) 53.1 % 47-70 [facility] WBC (Bld) [#/Vol] 6.4 10*3/uL 4.4-11.0 [facility] Blood erythrocytes count (nu mber/volume)Ordered By: Casa Jain on 06-26-2023 RBC (Bld) [#/Vol] 4.17 10*6/uL 4.2-5.4 [facility] Blood hemoglobin measurement (mass/volume)Ordered By: Casa Jain on 06-26-2023 Hemoglobin (Bld) [Mass/Vol] 11.0 g/dL 12.0-15.0 [facility] Blood lymphocytes/100 leukoc ytesOrdered By: Casa Jain on 06-26-2023 Lymphocytes/100 WBC (Bld) 22.8 % 19-41 [facility] Blood monocytes/100 leukocyt esOrdered By: Casa Jain on 06-26-2023 Monocytes/100 WBC (Bld) 15.7 % 0-10 [facility] Blood platelet mean volumeOr dered By: Casa Jain on 06-26-2023 Platelet mean volume (Bld) [Entitic vol] 8.9 fL 6.2-12.0 [facility] Determination of erythrocyte mean corpuscular volume (MCV)Ordered By: Casa Jain on 06-26-2023 MCV (RBC) [Entitic vol] 84.7 fL 81-99 [facility] Hematocrit Auto (Bld) [Volum e fraction]Ordered By: Casa Jain on 06-26-2023 Hematocrit (Bld) [Volume fraction] 35.3 % 37-47 [facility] Hypochromatic red blood cell detectionOrdered By: Casa Jain on 06-26-2023 Hypochromia Ql (Bld) 1+ [facility] - Hematology and Cell countsOrdered By: Casa Jain on 06-26-2023 Anisocytosis Ql (Bld) 1+ [facility] Erythrocyte distribution width (RBC) [Entitic vol] 77.3 fL 35.1-43.9 [facility] Erythrocyte distribution width (RBC) [Ratio] 25.8 % 11.6-14.6 [facility] Immature granulocytes/100 WBC (Bld) 0.300 % 0.0-0.9 [facility] Comment on above: IG% - Immature Granu locytes (promyelocytes, myelocytes and metamyelocytes) > 1% indicates that a LEFT SHIFT is Present. MCH (RBC) [Entitic mass] 26.4 pg 27.0-32.0 [facility] Nucleated RBC/100 WBC (Bld) [Ratio] 0 % 0-5 [facility] MCHC Auto (RBC) [Mass/Vol]Or dered By: Casa Jain on 06-26-2023 MCHC (RBC) [Mass/Vol] 31.2 g/dL 32-36 [facility] Platelets bldOrdered By: Chemo Jain on 06-26-2023 Platelets (Bld) [#/Vol] 244 10*3/uL 150-450 [facility] Basophil percentageOrdered B y: Casa Jain on 06-25-2023 Chloride [Moles/Vol] 106 mmol/L 98-107 [facility] Glucose [Mass/Vol] 91 mg/dL 74-106 [facility] Potassium [Moles/Vol] 3.8 mmol/L 3.5-5.1 [facility] Sodium [Moles/Vol] 138 mmol/L 136-145 [facility] Blood manual differential co mment interpretation (narrative result)Ordered By: Casa Jain on 06-25-2023 Manual differential comment Víctor (Bld) [Interp] SCANNED [facility] - Chemistry and C hemistry - challengeOrdered By: Casa Jain on 06-25-2023 CO2 [Moles/Vol] 31.0 mmol/L 21.0-32.0 [facility] Urea nitrogen/Creatinine [Mass ratio] 16.9 mg/mg 10-20 [facility] Macrocytes detectionOrdered By: Casa Jain on 06-25-2023 Macrocytes Ql (Bld) 1+ [facility] No Panel InformationOrdered By: Casa Jain on 06-25-2023 Estimated Creatinine Clearance Calc 37.15 ml/min [facility] Estimated GFR (MDRD) Amer 112 mL/min >60 [facility] Comment on above: GFR Calc Estimated GFR (MDRD) Non-Af Amer 92 mL/min >60 [facility] Comment on above: Non- GFR Calc Serum or plasma calcium anthony urement (mass/volume)Ordered By: Casa Jain on 06-25-2023 Calcium [Mass/Vol] 8.9 mg/dL 8.5-10.1 [facility] Serum or plasma creatinine m easurement (mass/volume)Ordered By: Casa Jain on 06-25-2023 Creatinine [Mass/Vol] 0.65 mg/dL 0.55-1.02 [facility] Comment on above: The validity of the calculated GFR & GFRAA in patients over 70 years has not been determined. Clinical correlation is essential. Serum or plasma urea nitroge n measurement (mass/volume)Ordered By: Casa Jain on 06-25-2023 Urea nitrogen [Mass/Vol] 11 mg/dL 7-18 [facility] Thin prep Papanicolaou smear with manual screeningOrdered By: Casa Jain on 06-25-2023 Thin prep Papanicolaou smear with manual screening 1+ [facility] Thin prep Papanicolaou smear with manual screening 1 5-15 [facility] Culture, urineOrdered By: Kourtney Jain on 06-23-2023 Bacteria identified Cx Nom (U) GPC Poss Enterococcus sp [facility] - Chemistry and C hemistry - challengeOrdered By: Casa Jain on 06-23-2023 Free T4 [Mass/Vol] 1.03 ng/dL 0.76-1.46 [facility] No Panel InformationOrdered By: Casa Jain on 06-23-2023 Free Triiodothyronine (T3) pg/dL 2.4 pg/mL 2.18-3.98 [facility] Basophil percentageOrdered B y: Nilesh Pereira on 06-22-2023 Basophil percentage 3.3 mg/dL 2.5-4.9 [facility] Bilirubin [Mass/Vol] 0.60 mg/dL 0.20-1.00 [facility] Comment on above: For patients on eltr ombopag therapy, use of Dimension [place] TBIL is not recommended. Protein [Mass/Vol] 5.8 g/dL 6.4-8.2 [facility] Erythrocyte sedimentation ra teOrdered By: Ian Lassiter on 06-22-2023 ESR (Bld) [Velocity] 1 mm/h 0-30 [facility] - Chemistry and C hemistry - challengeOrdered By: Nilesh Pereira on 06-22-2023 ALP [Catalytic activity/Vol] 44 U/L 45-117 [facility] ALT [Catalytic activity/Vol] 15 U/L 13-56 [facility] Cobalamin (Vitamin B12) [Mass/Vol] 388 pg/mL 211-911 [facility] Globulin (S) [Mass/Vol] 2.4 g/dL 2.2-4.2 [facility] Magnesium [Mass/Vol] 2.2 mg/dL 1.6-2.6 [facility] No Panel InformationOrdered By: Nilesh Pereira on 06-22-2023 Thyroid Stimulating Hormone (TSH) 5.49 uIU/mL 0.358-3.74 [facility] Serum or plasma C reactive p rotein measurement (mass/volume)Ordered By: Ian Lassiter on 06-22-2023 CRP [Mass/Vol] mg/L 0.0-3.0 [facility] Comment on above: C-Reactive Protein ( CRP) provides useful information for thediagnosis, therapy and monitoring of inflammatory processesand associated diseases. For the evaluation of Relative Riskfor Cardiovascular Disease, a High Sensitivity CRP (HSCRP)should be ordered. Serum or plasma albumin anthony urement (mass/volume)Ordered By: Nilesh Pereira on 06-22-2023 Albumin [Mass/Vol] 3.4 g/dL 3.2-5.0 [facility] Serum or plasma albumin/glob ulin mass ratioOrdered By: Nilesh Pereira on 06-22-2023 Albumin/Globulin [Mass ratio] 1.4 {ratio} 0.9-2.4 [facility] Thin prep Papanicolaou smear with manual screeningOrdered By: Nilesh Pereira on 06-22-2023 Thin prep Papanicolaou smear with manual screening 16 U/L 15-37 [facility] Basophil percentageOrdered B y: Kashif St on 06-21-2023 Basophil percentage 10-25 SEEN /hpf 0-5 [facility] Bilirubin Test strip Ql (U)O rdered By: Kashif St on 06-21-2023 Bilirubin Ql (U) 3 mg/dL Negative [facility] Comment on above: COLOR OF URINE MAY A FFECT DIPSTICK RESULTS. Iron measurement (mass/mass) Ordered By: Nilesh Pereira on 06-21-2023 Iron (Unsp spec) [Mass/Mass] 19 ug/dL 50-170 [facility] Ketones Test strip Ql (U)Ord ered By: Kashif St on 06-21-2023 Ketones Ql (U) Negative Negative [facility] Lower GI hemoglobin IA Ql (S tl)Ordered By: Kashif St on 06-21-2023 Stool Occult Blood (KIM) Positive [facility] Mucus LM Ql (Urine sed)Order ed By: Kashif St on 06-21-2023 Mucus Ql (Urine sed) 0 SEEN /hpf [facility] Nitrite Test strip Ql (U)Ord ered By: Kashif St on 06-21-2023 Nitrite Ql (U) Positive Negative [facility] No Panel InformationOrdered By: Nilesh Pereira on 06-21-2023 D-Dimer Quantitative (PE/DVT) 0.52 FEU/ug/m 0.27-0.49 [facility] Comment on above: D-Dimer ELEVATED (>0 .49): Additional studies and clinicalassessments are indicated to conclude diagnosis of:Deep Vein Thrombosis (DVT) or Pulmonary Embolism (PE)CRITICAL VALUE VERIFIED. CALLED TO SHAY MARIE06/22/23 0024 Boom Palomares.RESULTS READ BACK BY SAME . Total Iron Binding Capacity 282 ug/dL 250-450 [facility] Protein Test strip Ql (U)Ord ered By: Kashif St on 06-21-2023 Protein Ql (U) 30 mg/dl Negative [facility] Serum or plasma folate measu rement (mass/volume)Ordered By: Nilesh Pereira on 06-21-2023 Folate [Mass/Vol] 32.50 ng/mL 3.1-55.4 [facility] Serum or plasma iron saturat ion measurement (mass fraction)Ordered By: Nilesh Pereira on 06-21-2023 Iron saturation [Mass fraction] 6.7 % 15.0-55.0 [facility] Squamous epithelial cells de tection in urine sediment by light microscopyOrdered By: Kashif St on 06-21-2023 Epithelial cells.squamous LM Ql (Urine sed) 0 SEEN /hpf 5-10 [facility] Urine blood detectionOrdered By: Kashif St on 06-21-2023 RBC Ql (U) 25 /ul Negative [facility] RBC Ql (U) 0 SEEN /hpf 0-5 [facility] Urine clarityOrdered By: Lakesha St on 06-21-2023 Clarity (U) Clear Clear [facility] Urine color determinationOrd ered By: Kashif St on 06-21-2023 Color (U) Yellow Yellow [facility] Urine glucose detectionOrder ed By: Kashif St on 06-21-2023 Glucose Ql (U) Normal mg/dl Normal [facility] Urine leukocyte esterase det ection by dipstickOrdered By: Kashif St on 06-21-2023 Leukocyte esterase Test strip Ql (U) 25 /ul Negative [facility] Urine pHOrdered By: Kashif velasquez on 06-21-2023 pH (U) 5.0 [pH] 5.0 - 8.0 [facility] Urine sediment bacteria coun t by microscopy (number/high power field)Ordered By: Kashif St on 06-21-2023 Bacteria LM.HPF (Urine sed) [#/Area] 0 /[HPF] None Seen [facility] Urine specific gravity measu rementOrdered By: Kashif St on 06-21-2023 Specific gravity (U) [Rel density] 1.025 1.002-1.030 [facility] Urobilinogen Auto test strip Ql (U)Ordered By: Kashif St on 06-21-2023 Urobilinogen Ql (U) 8 mg/dl Normal [facility] Absolute lymphocyte countOrd ered By: Sergio Bailey on 05-11-2023 Lymphocytes Auto (Unsp spec) [#/Vol] 1.53 10*3/uL 0.83-4.51 [facility] Basophil percentageOrdered B y: Sergio Bailey on 05-11-2023 Basophils/100 WBC (Bld) 1.1 % 0-1 [facility] Bilirubin [Mass/Vol] 0.40 mg/dL 0.20-1.00 [facility] Comment on above: For patients on eltr ombopag therapy, use of Dimension [place] TBIL is not recommended. Chloride [Moles/Vol] 101 mmol/L 98-107 [facility] Eosinophils/100 WBC (Bld) 7.6 % 0-5 [facility] Glucose [Mass/Vol] 106 mg/dL 74-106 [facility] Comment on above: Fasting Glucose resu lt from 100 to 125 mg/dL suggests IMPAIRED HOMEOSTASIS per A.D.A. criteria. Neutrophils (Bld) [#/Vol] 3.1 10*3/uL 2.0-7.7 [facility] Neutrophils/100 WBC (Bld) 54.1 % 47-70 [facility] Potassium [Moles/Vol] 4.2 mmol/L 3.5-5.1 [facility] Protein [Mass/Vol] 6.9 g/dL 6.4-8.2 [facility] Sodium [Moles/Vol] 136 mmol/L 136-145 [facility] WBC (Bld) [#/Vol] 5.7 10*3/uL 4.4-11.0 [facility] Blood erythrocytes count (nu mber/volume)Ordered By: Sergio Bailey on 05-11-2023 RBC (Bld) [#/Vol] 4.12 10*6/uL 4.2-5.4 [facility] Blood hemoglobin measurement (mass/volume)Ordered By: Sergio Bailey on 05-11-2023 Hemoglobin (Bld) [Mass/Vol] 12.3 g/dL 12.0-15.0 [facility] Blood lymphocytes/100 leukoc ytesOrdered By: Sergio Bailey on 05-11-2023 Lymphocytes/100 WBC (Bld) 27.1 % 19-41 [facility] Blood monocytes/100 leukocyt esOrdered By: Sergio Bailey on 05-11-2023 Monocytes/100 WBC (Bld) 9.9 % 0-10 [facility] Blood platelet mean volumeOr dered By: Sergio Bailey on 05-11-2023 Platelet mean volume (Bld) [Entitic vol] 8.9 fL 6.2-12.0 [facility] Determination of erythrocyte mean corpuscular volume (MCV)Ordered By: Sergio Bailey on 05-11-2023 MCV (RBC) [Entitic vol] 98.3 fL 81-99 [facility] Erythrocyte sedimentation ra teOrdered By: Sergio Bailey on 05-11-2023 ESR (Bld) [Velocity] 5 mm/h 0-30 [facility] Hematocrit Auto (Bld) [Volum e fraction]Ordered By: Sergio Bailey on 05-11-2023 Hematocrit (Bld) [Volume fraction] 40.5 % 37-47 [facility] - Chemistry and C hemistry - challengeOrdered By: Sergio Bailey on 05-11-2023 ALP [Catalytic activity/Vol] 58 U/L 45-117 [facility] ALT [Catalytic activity/Vol] 15 U/L 13-56 [facility] CO2 [Moles/Vol] 28.0 mmol/L 21.0-32.0 [facility] Globulin (S) [Mass/Vol] 3.1 g/dL 2.2-4.2 [facility] Lipase [Catalytic activity/Vol] 32 U/L 13-75 [facility] Comment on above: Please note:LIPASE r evised reference range effective 22. New Lipase methodology. Expected to produce lower values than the previous assay method. NEW Reference Range: 13 - 75 U/L Urea nitrogen/Creatinine [Mass ratio] 21.7 mg/mg 10-20 [facility] - Hematology and Cell countsOrdered By: Sergio Bailey on 05-11-2023 Erythrocyte distribution width (RBC) [Entitic vol] 48.7 fL 35.1-43.9 [facility] Erythrocyte distribution width (RBC) [Ratio] 13.3 % 11.6-14.6 [facility] Immature granulocytes/100 WBC (Bld) 0.200 % 0.0-0.9 [facility] Comment on above: IG% - Immature Granu locytes (promyelocytes, myelocytes and metamyelocytes) > 1% indicates that a LEFT SHIFT is Present. MCH (RBC) [Entitic mass] 29.9 pg 27.0-32.0 [facility] Nucleated RBC/100 WBC (Bld) [[facility]] 0 % 0-5 [facility] [Mass/Vol]Or dered By: Sergio Bailey on 05-11-2023 MCHC (RBC) [Mass/Vol] 30.4 g/dL 32-36 [facility] No Panel InformationOrdered By: Sergio Bailey on 05-11-2023 Estimated GFR (MDRD) Amer 75 mL/min >60 [facility] Comment on above: GFR Calc Estimated GFR (MDRD) Non-Af Amer 62 mL/min >60 [facility] Comment on above: Non- GFR Calc Platelets bldOrdered By: Carissa Bailey on 05-11-2023 Platelets (Bld) [#/Vol] 303 10*3/uL 150-450 [facility] Serum or plasma C reactive p rotein measurement (mass/volume)Ordered By: Sergio Bailey on 05-11-2023 CRP [Mass/Vol] mg/L 0.0-3.0 [facility] Comment on above: C-Reactive Protein ( CRP) provides useful information for thediagnosis, therapy and monitoring of inflammatory processesand associated diseases. For the evaluation of Relative Riskfor Cardiovascular Disease, a High Sensitivity CRP (HSCRP)should be ordered. Serum or plasma albumin anthony urement (mass/volume)Ordered By: Sergio Bailey on 05-11-2023 Albumin [Mass/Vol] 3.8 g/dL 3.2-5.0 [facility] Serum or plasma albumin/glob ulin mass ratioOrdered By: Sergio Bailey on 05-11-2023 Albumin/Globulin [Mass ratio] 1.2 {ratio} 0.9-2.4 [facility] Serum or plasma calcium anthony urement (mass/volume)Ordered By: Sergio Bailey on 05-11-2023 Calcium [Mass/Vol] 9.3 mg/dL 8.5-10.1 [facility] Serum or plasma creatinine m easurement (mass/volume)Ordered By: Sergio Bailey on 05-11-2023 Creatinine [Mass/Vol] 0.92 mg/dL 0.55-1.02 [facility] Comment on above: The validity of the calculated GFR & GFRAA in patients over 70 years has not been determined. Clinical correlation is essential. Serum or plasma urea nitroge n measurement (mass/volume)Ordered By: Sergio Bailey on 05-11-2023 Urea nitrogen [Mass/Vol] 20 mg/dL 7-18 [facility] Thin prep Papanicolaou smear with manual screeningOrdered By: Sergio Bailey on 05-11-2023 Thin prep Papanicolaou smear with manual screening 16 U/L 15-37 [facility] Thin prep Papanicolaou smear with manual screening 7 5-15 [facility] ALLIED HEALTHon 02-17-2023 ALLIED HEALTH HNO ID: [id number] Author: Pat Pacheco RT(R) Service: ? Author [...] February 17, 2023 TIME: 11:54 AM Normal [facility] CBC panel Auto (Bld)on 02-17 Erythrocyte distribution width (RBC) [Ratio] 13.0 % Normal 11.5-15.0 [facility] Comment on above: Order Comment: Armin dimas Type: BLOOD SPECIMEN Ordering Facility: [facility] Address: [address] [place] [address] Performed By: #### 5 8410-2 #### [facility] CLIA [id number] [address] [place] [address] OF [facility] Hematocrit (Bld) [Volume fraction] 31.2 % Low 36.0-46.0 [facility] Comment on above: Order Comment: Armin dimas Type: BLOOD SPECIMEN Ordering Facility: [facility] Address: [address] [place] [address] Performed By: #### 5 8410-2 #### [facility] CLIA [id number] [address] STATES OF [facility] Hemoglobin (Bld) [Mass/Vol] 9.9 g/dL Low 11.5-15.5 [facility] Comment on above: Order Comment: Armin dimas Type: BLOOD SPECIMEN Ordering Facility: [facility] Address: [address] [place] [address] Performed By: #### 5 8410-2 #### [facility] CLIA [id number] [address] MCH (RBC) [Entitic mass] 29.5 pg Normal 26.0-34.0 [facility] Comment on above: Order Comment: Armin dimas Type: BLOOD SPECIMEN Ordering Facility: [facility] Address: [address] [place] [address] Performed By: #### 5 8410-2 #### [facility] CLIA [id number] [address] MCHC (RBC) [Mass/Vol] 31.7 g/dL Normal 30.5-36.0 [facility] Comment on above: Order Comment: Speci men Type: BLOOD SPECIMEN Ordering Facility: [facility] Address: [address] [address] Performed By: #### 5 8410-2 #### [facility] CLIA [id number] [address] MCV (RBC) [Entitic vol] 92.9 fL Normal 80.0-100.0 [facility] Comment on above: Order Comment: Speci men Type: BLOOD SPECIMEN Ordering Facility: [facility] Address: [address] [address] Performed By: #### 5 8410-2 #### [facility] CLIA [id number] [address] Nucleated RBC (Bld) [#/Vol] 10*3/uL Normal <0.01 [facility] Comment on above: Order Comment: Speci men Type: BLOOD SPECIMEN Ordering Facility: [facility] Address: [address] [address] Performed By: #### 5 8410-2 #### [facility] CLIA [id number] [address] Platelet mean volume (Bld) [Entitic vol] 8.8 fL Low 9.0-12.7 [facility] Comment on above: Order Comment: Speci men Type: BLOOD SPECIMEN Ordering Facility: [facility] Address: [address] [address] Performed By: #### 5 8410-2 #### [facility] CLIA [id number] [address] [place] Platelets (Bld) [#/Vol] 213 10*3/uL Normal 150-400 [facility] Comment on above: Order Comment: Speci men Type: BLOOD SPECIMEN Ordering Facility: [facility] Address: [address] [place] [address] Performed By: #### 5 8410-2 #### [facility] CLIA [id number] [address] RBC (Bld) [#/Vol] 3.36 10*6/uL Low 3.90-5.20 [facility] Comment on above: Order Comment: Speci men Type: BLOOD SPECIMEN Ordering Facility: [facility] Address: [address] [place] [address] Performed By: #### 5 8410-2 #### [facility] CLIA [id number] [address] WBC (Bld) [#/Vol] 7.67 10*3/uL Normal 3.70-11.00 [facility] Comment on above: Order Comment: Speci men Type: BLOOD SPECIMEN Ordering Facility: [facility] Address: [address] [place] [address] Performed By: #### 5 8410-2 #### [facility] CLIA [id number] [address] CNDSon 02-17-2023 CNDS HNO ID: [id number] Author: Milla Yu MD Service: Hospital Medicine [...] no source of active bleed ,EGD revealed [place]-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 Biopsied. Segmental moderate inflammation was found [...] When: In 1 week Sergio Bailey MD [phone] [facility] [address] PCP Requested Referral Follow-Up Appointment When: In 2 weeks García Obando MD [phone] [address] [facility] [address] [facility] [address] PCP Requested Referral Additional Provider to Provider Information: Treatment Team: Attending Provider: Milla Yu MD Primary Service: GEOFF ADAMSON Consulting: Nabeel Coker MD Transitions of Care Critical Issues: As DC summary LABS AND PROCEDURES PENDING AT DISCHARGE: No pending results. FOLLOW-UP APPOINTMENTS ALREADY SCHEDULED WITH A [facility] PROVIDER: No future appointments. ALLERGIES Allergen [...] ALTACE TOP (more content not included)... Normal [facility] CTA ABD/PELV WO/W IVCONon CTA ABD/PELV WO/W IVCON * * *Final Repor t* * * DATE OF EXAM: Feb 17 2023 12:00PM [facility] 0467 - CTA ABD/PELV WO/W IVCON / [...] L3, severe T12, moderate T11 compression deformities Sotn-bo-uegeksnt superior endplate L1 compression deformity, which may be grossly similar to prior lumbar x-rays from 05/04/2022 Visualized lung bases: Trace left pleural fluid IMPRESSION: No convincing blush of contrast to suggest active bleeding. Colitis distal transverse through distal descending colon. Consider infectious, inflammatory, ischemic etiology Indeterminate 1.2 cm left renal lesion. This could be further characterized with MRI Pony Edger: LEE Transcribe Date/Time: Feb 17 2023 12:59P Dictated by : TAM CALLAWAY MD This examination was interpreted and the report reviewed and electronically signed by: TAM CALLAWAY MD on Feb 17 2023 1:37PM EST [id number] Normal [facility] ECG COMPLETEon 02-17-2023 ECG COMPLETE Ventricular Rate : 8 7 BPM Atrial Rate : 87 BPM P-R Interval : 184 ms QRS Duration : 84 ms Q-T Interval : 408 ms QTC Calculation(Bazett) : 490 ms Calculated P [place] : 50 degrees Calculated R [place] : 29 degrees Calculated T [place] : 74 degrees SINUS RHYTHM WITH PREMATURE ATRIAL COMPLEXES MINIMAL VOLTAGE CRITERIA FOR LVH, MAY BE NORMAL VARIANT ( Sokolow-Jacob ) NONSPECIFIC ST AND T WAVE ABNORMALITY PROLONGED QT ABNORMAL ECG NO PREVIOUS ECGS AVAILABLE Confirmed by MD GUERRERO VINAYAK ([id number]) on 02/19/2023 5:01:03 PM NAME : SANDIE HO PID : [id number] : 1940 Gender : Female Race : ORD : [id number] Procedure Date : Feb 17 2023 12:18:18 Edit Date : Feb 19 2023 17:01:08 Diagnosis: SINUS RHYTHM WITH PREMATURE ATRIAL COMPLEXES MINIMAL VOLTAGE CRITERIA FOR LVH, MAY BE NORMAL VARIANT ( Sokolow-Jacob ) NONSPECIFIC ST AND T WAVE ABNORMALITY PROLONGED QT ABNORMAL ECG NO PREVIOUS ECGS AVAILABLE Confirmed by MD GUERRERO VINAYAK ([id number]) on 02/19/2023 5:01:03 PM Test Reason : Chest Pain Location : 183 : TCU 3223 Overread By : MD GUERRERO VINAYAK Edited By : MD GUERRERO VINAYAK Referred By : HAILEE DE LEON Acquired by : DAVID LAUREANO Normal [facility] HIGH SENSITIVITY TROPONIN To n 02-17-2023 Troponin T.cardiac High sensitivity method [Mass/Vol] 17 ng/L High <12 [facility] Comment on above: Order Comment: Speci men Type: BLOOD SPECIMEN Ordering Facility: [facility] Address: [address] [place] [address] [place] [address] Result Comment: When assessing risk for acute [...] MACE. Performed By: #### H STNT #### [facility] CLIA [id number] [address] [id number] [facility] Troponin T.cardiac High sensitivity method [Mass/Vol] 18 ng/L High <12 [facility] Comment on above: Order Comment: Speci men Type: BLOOD SPECIMEN Ordering Facility: [facility] Address: [facility] [place] [address] Result Comment: When assessing risk for acute [...] MACE. Performed By: #### H STNT #### [facility] CLIA [id number] [address] [id number] [place] NURSING PROGon 02-17-2023 NURSING PROG HNO ID: [id number] Author: Vandana Armando RN Service: Nursing Author Type: Registered Nurse Type: Nursing Progress Note Filed: 02/17/2023 6:32 PM Note Text: Patient DC home via personal transport at 1825. Personal belongings returned. DC instructions given and explained to patient and daughter. They verbalized understanding. Medications sent to pharmacy of choice. PIV removed with no issues. Normal [facility] ANES POSTPROC EVALon 023 ANES POSTPROC EVAL HNO ID: [id number] Author: Cuca Yung MD Service: Anesthesiology Author Type: Anesthesiologist Type: Anesthesia Postprocedure Evaluation Filed: 02/16/2023 2:39 PM Note Text: POST ANESTHESIA EVALUATION NOTE : 1940 Procedure Summary Date: 02/16/23 Room / Location: [facility] Anesthesia Start: 1119 Anesthesia Stop: 1221 Procedures: [...] February 16, 2023 TIME: 2:39 PM CSN: [id number] [facility] ANES PRE-OPon 02-16-2023 ANES PRE-OP HNO ID: [id number] Author: Cuca Yung MD Service: Anesthesiology Author Type: Anesthesiologist Type: Anesthesia Preprocedure Evaluation Filed: 02/16/2023 10:53 AM Note Text: ANESTHESIOLOGY DAY OF SURGERY NOTE : 1940 Procedure Information Date/Time: 02/16/23 1145 Scheduled providers: García Obando MD Procedures: COLONOSCOPY DIAGNOSTIC EGD DIAGNOSTIC Location: [facility] Estimated body mass index is 19.14 kg/m? [...] and consent discussed: yes. Patient / Responsible Libertarian agrees to proceed: yes Patient / Surrogate [...] on Transfer] sodium chloride 0.65 % 2 [place] 2 [place] EACH NOSTRIL PRN - [Held on Transfer] [...] Aspirin-Acetaminophen- Ca (more content not included)... Normal [facility] Basic metabolic 2000 panelon 02-16-2023 Anion gap [Moles/Vol] 12 mmol/L Normal 9-18 [facility] Comment on above: Order Comment: Speci men Type: BLOOD SPECIMEN Ordering Facility: [facility] Address: [address] [place] [address] Performed By: #### 2 4321-2 #### [facility] CLIA [id number] 1 [place] [address] [place] Calcium [Mass/Vol] 9.5 mg/dL Normal 8.5-10.2 [facility] Comment on above: Order Comment: Speci men Type: BLOOD SPECIMEN Ordering Facility: [facility] Address: [address] [place] [address] Performed By: #### 2 4321-2 #### [facility] CLIA [id number] [address] [place] Chloride [Moles/Vol] 104 mmol/L Normal 97-105 [facility] Comment on above: Order Comment: Speci men Type: BLOOD SPECIMEN Ordering Facility: [facility] Address: [address] [place] [address] Performed By: #### 2 4321-2 #### [facility] CLIA [id number] [address] [place] CO2 [Moles/Vol] 22 mmol/L Normal 22-30 [facility] Comment on above: Order Comment: Speci men Type: BLOOD SPECIMEN Ordering Facility: [facility] Address: [address] [place] [address] Performed By: #### 2 4321-2 #### [facility] CLIA [id number] [address] [place] Creatinine [Mass/Vol] 0.79 mg/dL Normal 0.58-0.96 [facility] Comment on above: Order Comment: Speci men Type: BLOOD SPECIMEN Ordering Facility: [facility] Address: [address] [address] Performed By: #### 2 4321-2 #### [facility] CLIA [id number] [address] [place] [address] [place] Creatinine and Glomerular filtration rate.predicted panel (S/P/Bld) 75 mL/min/1.73m??? Normal >=60 [facility] Comment on above: Order Comment: Armin men Type: BLOOD SPECIMEN Ordering Facility: [facility] Address: [address] [place] [address] Result Comment: July mated Glomerular Filtration Rate [...] GFR. Performed By: #### 2 4321-2 #### [facility] CLIA [id number] [address] [place] [address] [place] Glucose [Mass/Vol] 107 mg/dL High 74-99 [facility] Comment on above: Order Comment: Armin dimas Type: BLOOD SPECIMEN Ordering Facility: [facility] Address: [address] [place] [address] Result Comment: The [employer] (ADA) provides guidance for cutoff [...] Standards of Medical Care in Diabetes 2016, [place] [employer]. Diabetes Care. 2016.39(Suppl 1). Performed By: #### 2 4321-2 #### [facility] CLIA [id number] [address] [place] Potassium [Moles/Vol] 4.1 mmol/L Normal 3.7-5.1 [facility] Comment on above: Order Comment: Speci men Type: BLOOD SPECIMEN Ordering Facility: [facility] Address: [address] [address] Performed By: #### 2 4321-2 #### [facility] CLIA [id number] [address] [place] Sodium [Moles/Vol] 138 mmol/L Normal 136-144 [facility] Comment on above: Order Comment: Speci men Type: BLOOD SPECIMEN Ordering Facility: [facility] Address: [address] [place] [address] Performed By: #### 2 4321-2 #### [facility] CLIA [id number] [address] STATES [facility] Urea nitrogen [Mass/Vol] 8 mg/dL Normal 7-21 [facility] Comment on above: Order Comment: Speci men Type: BLOOD SPECIMEN Ordering Facility: [facility] Address: [address] [place] [address] Performed By: #### 2 4321-2 #### [facility] CLIA [id number] [address] STATES OF [facility] CBC panel Auto (Bld)on 02-16 Erythrocyte distribution width (RBC) [Ratio] 13.2 % Normal 11.5-15.0 [facility] Comment on above: Order Comment: Speci men Type: BLOOD SPECIMEN Ordering Facility: [facility] Address: [address] [address] Performed By: #### 5 8410-2 #### [facility] CLIA [id number] [address] [place] Hematocrit (Bld) [Volume fraction] 32.9 % Low 36.0-46.0 [facility] Comment on above: Order Comment: Speci men Type: BLOOD SPECIMEN Ordering Facility: [facility] Address: [address] [place], [place] [address] Performed By: #### 5 8410-2 #### [facility] CLIA [id number] [address] Hemoglobin (Bld) [Mass/Vol] 10.6 g/dL Low 11.5-15.5 [facility] Comment on above: Order Comment: Speci men Type: BLOOD SPECIMEN Ordering Facility: [facility] Address: [address] [place] [address] Performed By: #### 5 8410-2 #### [facility] CLIA [id number] [address] MCH (RBC) [Entitic mass] 30.3 pg Normal 26.0-34.0 [facility] Comment on above: Order Comment: Speci men Type: BLOOD SPECIMEN Order[facility] Facility: [facility] Address: [address] [place] [address] Performed By: #### 5 8410-2 #### [facility] CLIA [id number] [address] MCHC (RBC) [Mass/Vol] 32.2 g/dL Normal 30.5-36.0 [facility] Comment on above: Order Comment: Speci men Type: BLOOD SPECIMEN Order[facility] Facility: [facility] Address: [address] [place] [address] Performed By: #### 5 8410-2 #### [facility] CLIA [id number] [address] MCV (RBC) [Entitic vol] 94.0 fL Normal 80.0-100.0 [facility] Comment on above: Order Comment: Speci men Type: BLOOD SPECIMEN Order[facility] Facility: [facility] Address: [address] [place] [address] Performed By: #### 5 8410-2 #### [facility] CLIA [id number] [address] Nucleated RBC (Bld) [#/Vol] 10*3/uL Normal <0.01 [facility] Comment on above: Order Comment: Speci men Type: BLOOD SPECIMEN Order[facility] Facility: [facility] Address: [address] [place] [address] Performed By: #### 5 8410-2 #### [facility] CLIA [id number] [address] [place] Platelet mean volume (Bld) [Entitic vol] 8.6 fL Low 9.0-12.7 [facility] Comment on above: Order Comment: Speci men Type: BLOOD SPECIMEN Order[facility] Facility: [facility] Address: [address] [place] [address] Performed By: #### 5 8410-2 #### [facility] CLIA [id number] [address] [place] Platelets (Bld) [#/Vol] 208 10*3/uL Normal 150-400 [facility] Comment on above: Order Comment: Speci men Type: BLOOD SPECIMEN Ordering Facility: [facility] Address: [address] [address] Performed By: #### 5 8410-2 #### [facility] CLIA [id number] [address] [place] RBC (Bld) [#/Vol] 3.50 10*6/uL Low 3.90-5.20 [facility] Comment on above: Order Comment: Speci men Type: BLOOD SPECIMEN Order[facility] Facility: [facility] Address: [address] [address] Performed By: #### 5 8410-2 #### [facility] CLIA [id number] [address] [place] WBC (Bld) [#/Vol] 15.17 10*3/uL High 3.70-11.00 [facility] Comment on above: Order Comment: Speci men Type: BLOOD SPECIMEN Order[facility] Facility[facility] Address: [address] [place] [address] Performed By: #### 5 8410-2 #### [facility] CLIA [id number] [address] OF [facility] Colonoscopyon 02-16-2023 Colonoscopy [facility] Gastrointestinal Endoscopy Patient Name: Sandie Ho Procedure Date: 02/16/2023 11:45 AM Date of : 1940 Admit Type: Inpatient Room: [place] [address] Gender: Female Note Status: Finalized Attending MD: [...] repeat colonoscopy. Procedure Code(s): --- Professional --- 40107, Colonoscopy, flexible; with biopsy, single or multiple --- Technical --- 20400, Colonoscopy, flexible; with biopsy, single or multiple [...] D62, Acute posthemorrhagic anemia CPT copyright 2020 [employer]. All rights reserved. The codes documented in this report are preliminary and upon staff midwife/apprenticeship director review may be revised to meet current compliance requirements. Attending Participation: I personally performed the entire procedure. Scope In: 11:49:19 AM Scope Out: 12:12:27 PM MD García Muller MD 02/16/2023 12:44:02 PM This report has been signed electronically by García Obando MD Number of Addenda: 0 Note Initiated On: 02/16/2023 11:45 AM Normal [facility] SURGICAL PATHOLOGYon 02-16- 023 CASE REPORT Normal [facility] Comment on above: Order Comment: Speci men Type: TISSUE SPECIMEN Order[facility] Facility: [facility] Address: [address] [place] [address] Result Comment: Surg ica Pathology Report Case: [id number] Authorizing Provider: García Obando MD Collected: 02/16/2023 11:39 AM Ordering Location: [facility] Received: 02/17/2023 08:49 AM Pathologist: Devin Walls MD Specimens: A) - STOMACH BIOPSY B) - PYLORUS BIOPSY, pre-pyloric ulcer scar C) - ESOPHAGUS BIOPSY, distal D) - COLON LEFT BIOPSY Performed By: #### S #### [facility] CLIA [id number] [address] DIAGNOSIS COMMENT There some features, such as crypt withering, which raise the possibility of ischemia. Clinical correlation is required. Normal [facility] Comment on above: Order Comment: Speci men Type: TISSUE SPECIMEN Order[facility] Facility[facility] Address: [address] [place] [address] Performed By: #### S #### [facility] CLIA [id number] [address] [place] [address] FINAL DIAGNOSIS Normal [facility] Comment on above: Order Comment: Speci men Type: TISSUE SPECIMEN Ordering Facility: [facility] Address: [address] [place] [address] Result Comment: Mindy Lira tomach, biopsy: - [...] (see comment). Performed By: #### S #### [facility] CLIA [id number] [address] [place] [address] FINAL PERFORMING LAB Normal [facility] Comment on above: Order Comment: Speci men Type: TISSUE SPECIMEN Order[facility] Facility[facility] Address: [place] [phone] Result Comment: Diag nostic interpretation performed at [facility], [address] [place] [address] CLIA# [id number] Broaching Machine Set Up Operator: Sergio Escoto M.D. Performed By: #### S #### [facility] CLIA [id number] [address] [place] [address] GROSS DESCRIPTION Normal [facility] Comment on above: Order Comment: Speci men Type: TISSUE SPECIMEN [facility]ing Facility: [facility] Address: [place] [phone] Result Comment: A. S TOMACH BIOPSY Received [...] in one cassette. Gross examination performed at [facility], [address] [place] [address] CLIA# [id number] [facility] February 17, 2023 10:28 AM Performed By: #### S #### [facility] CLIA [id number] [address] STATES OF [facility] Upper GI endoscopy 023 Upper GI endoscopy [facility] Gastrointestinal Endoscopy Patient Name: Sandie Ho Procedure Date: 02/16/2023 11:16 AM Date of : 1940 Admit Type: Inpatient Room: [place] [address] Gender: Female Note Status: Finalized Attending MD: [...] Estimated blood loss was minimal. 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 Biopsied. - Normal second portion of the duodenum. - Scar in the prepyloric region of the stomach. Biopsied. Recommendation: - Await pathology results. - Perform a colonoscopy today. - Use Protonix (pantoprazole) 40 mg PO daily. - The patient is not currently taking anticoagulant or antiplatelet agents. Procedure Code(s): --- Professional --- 64228, Esophagogastroduodenos copy, flexible, transoral; with biopsy, single or multiple --- Technical --- 11283, Esophagogastroduodenos copy, flexible, transoral; with biopsy, single or multiple Diagnosis Code(s): --- Professional --- K22.70, 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 K31.89, Other diseases of stomach and duodenum D62, Acute posthemorrhagic anemia K92.1, Melena (includes Hematochezia) --- Technical --- K22.70, Tiraod's esophagus without dysplasia K31.89, Other diseases of stomach and duodenum D62, Acute posthemorrhagic anemia K92.1, Melena (includes Hematochezia) CPT copyright 2020 [employer]. All rights reserved. The codes documented in this report are preliminary and upon staff midwife/apprenticeship director review may be revised to meet current compliance requirements. Attending Participation: I personally performed the entire procedure. Scope In: 11:36:01 AM Scope Out: 11:45:15 AM MD García Muller MD 02/16/2023 12:29:00 PM This report has been signed electronically by García Obando MD Number of Addenda: 0 Note Initiated On: 02/16/2023 11:16 AM Normal [facility] Urinalysis complete panel (U )on 02-16-2023 Bilirubin Ql (U) Negative Normal Negative [facility] Comment on above: Order Comment: Speci men Type: URINE SPECIMEN [facility]ing Facility: [facility] Address: [place] [address] Performed By: #### 2 4356-8 #### [facility] CLIA [id number] [address] [place] [address] [place] Clarity (Unsp spec) Clear Normal Clear [facility] Comment on above: Order Comment: Speci men Type: URINE SPECIMEN Ordering Facility: [facility] Address: [address] [place] [address] Performed By: #### 2 4356-8 #### [facility] CLIA [id number] [address] Color (U) Light Yellow Normal yellow [facility] Comment on above: Order Comment: Speci men Type: URINE SPECIMEN Ordering Facility: [facility] Address: [address] [place] [address] Performed By: #### 2 4356-8 #### [facility] CLIA [id number] [address] Glucose Test strip (U) [Mass/Vol] Negative Normal Trace, Negative [facility] Comment on above: Order Comment: Speci men Type: URINE SPECIMEN Ordering Facility: [facility] Address: [address] [place] [address] Performed By: #### 2 4356-8 #### [facility] CLIA [id number] [address] Hemoglobin Ql (U) 1+ Abnormal Negative, Trace [facility] Comment on above: Order Comment: Speci men Type: URINE SPECIMEN Ordering Facility: [facility] Address: [address] [place] [address] Performed By: #### 2 4356-8 #### [facility] CLIA [id number] [address] Ketones Ql (U) Negative Normal Negative, Trace [facility] Comment on above: Order Comment: Speci men Type: URINE SPECIMEN Ordering Facility: [facility] Address: [address] [place] [address] Performed By: #### 2 4356-8 #### [facility] CLIA [id number] [address] Leukocyte esterase Test strip Ql (U) Negative Normal Negative, 25 Anmol/uL [facility] Comment on above: Order Comment: Speci men Type: URINE SPECIMEN Ordering Facility: [facility] Address: [address] [place] [address] Performed By: #### 2 4356-8 #### [facility] CLIA [id number] [address] [place] Nitrite Ql (U) Negative Normal Negative [facility] Comment on above: Order Comment: Speci men Type: URINE SPECIMEN Ordering Facility: [facility] Address: [address] [place] [address] Performed By: #### 2 4356-8 #### [facility] CLIA [id number] [address] [place] pH (U) 6.0 [pH] Normal 5.0-8.0 [facility] Comment on above: Order Comment: Speci men Type: URINE SPECIMEN Ordering Facility: [facility] Address: [address] [place] [address] Performed By: #### 2 4356-8 #### [facility] CLIA [id number] [address] STATES [facility] Protein (U) [Mass/Vol] Negative Normal Trace , Negative [facility] Comment on above: Order Comment: Speci men Type: URINE SPECIMEN Ordering Facility: [facility] Address: [address] [place] [address] Performed By: #### 2 4356-8 #### [facility] CLIA [id number] [address] [place] RBC LM.HPF (Urine sed) [#/Area] 3-5 /HPF Abnormal 0-3 /HPF [facility] Comment on above: Order Comment: Speci men Type: URINE SPECIMEN Ordering Facility: [facility] Address: [address] [place] [address] Performed By: #### 2 4356-8 #### [facility] CLIA [id number] [address] [place] Specific gravity (U) [Rel density] 1.005 Normal 1.005-1.030 [facility] Comment on above: Order Comment: Speci men Type: URINE SPECIMEN Ordering Facility: [facility] Address: [address] [place] [address] Performed By: #### 2 4356-8 #### [facility] CLIA [id number] [address] Urobilinogen Ql (U) Normal Normal Negative [facility] Comment on above: Order Comment: Speci men Type: URINE SPECIMEN Ordering Facility: [facility] Address: [address] [place] [address] Performed By: #### 2 4356-8 #### [facility] CLIA [id number] [address] WBC LM.HPF (Urine sed) [#/Area] 0-5 /HPF Normal 0-5 /HPF [facility] Comment on above: Order Comment: Speci men Type: URINE SPECIMEN Ordering Facility[facility] Address: [address] [place] [address] Performed By: #### 2 4356-8 #### [facility] CLIA [id number] [address] [place] Basic metabolic 2000 panelon 02-15-2023 Anion gap [Moles/Vol] 9 mmol/L Normal 9-18 [facility] Comment on above: Order Comment: Speci men Type: BLOOD SPECIMEN Ordering Facility: [facility] Address: [address] [place] [address] Performed By: #### 2 4321-2 #### [facility] CLIA [id number] [address] STATES OF [facility] Calcium [Mass/Vol] 8.7 mg/dL Normal 8.5-10.2 [facility] Comment on above: Order Comment: Speci men Type: BLOOD SPECIMEN Ordering Facility: [facility] Address: [address] [place] [address] Performed By: #### 2 4321-2 #### [facility] CLIA [id number] [address] Chloride [Moles/Vol] 110 mmol/L High 97-105 [facility] Comment on above: Order Comment: Speci men Type: BLOOD SPECIMEN Ordering Facility: [facility] Address: [address] [place] [address] Performed By: #### 2 4321-2 #### [facility] CLIA [id number] [address] CO2 [Moles/Vol] 21 mmol/L Low 22-30 [facility] Comment on above: Order Comment: Speci men Type: BLOOD SPECIMEN Ordering Facility[facility] Address: [address] [place] [address] Performed By: #### 2 4321-2 #### [facility] CLIA [id number] [address] [place] [address] Creatinine [Mass/Vol] 0.79 mg/dL Normal 0.58-0.96 [facility] Comment on above: Order Comment: Speci men Type: BLOOD SPECIMEN Ordering Facility[facility] Address: [address] [place] [address] Performed By: #### 2 4321-2 #### [facility] CLIA [id number] [address] [place] [address] ESTIMATED GLOMERULAR FILTRATION RATE 75 mL/min/1.73m??? Normal >=60 [facility] Comment on above: Order Comment: Speci men Type: BLOOD SPECIMEN Ordering Facility: [facility] Address: [address] [place] [address] Result Comment: July mated Glomerular Filtration Rate [...] Performed By: #### 2 4321-2 #### [facility] CLIA [id number] [address] Glucose [Mass/Vol] 85 mg/dL Normal 74-99 [facility] Comment on above: Order Comment: Speci men Type: BLOOD SPECIMEN Ordering Facility: [facility] Address: [address] [place] [address] Result Comment: The [employer] (ADA) provides guidance for cutoff [...] Standards of Medical Care in Diabetes 2016, [employer]. Diabetes Care. 2016.39(Suppl 1). Performed By: #### 2 4321-2 #### [facility] CLIA [id number] 1 [place] [address] [place] Potassium [Moles/Vol] 4.0 mmol/L Normal 3.7-5.1 [facility] Comment on above: Order Comment: Cindyi men Type: BLOOD SPECIMEN Ordering Facility: [facility] Address: [address] [place] [address] Performed By: #### 2 4321-2 #### [facility] CLIA [id number] 1 [place] [address] [place] Sodium [Moles/Vol] 140 mmol/L Normal 136-144 [facility] Comment on above: Order Comment: Speci men Type: BLOOD SPECIMEN Ordering Facility[facility] Address: [address] [place] [address] Performed By: #### 2 4321-2 #### [facility] CLIA [id number] 1 [place] [address] [place] Urea nitrogen [Mass/Vol] 15 mg/dL Normal 7-21 [facility] Comment on above: Order Comment: Speci men Type: BLOOD SPECIMEN Order[facility] Facility[facility] Address: [address] [place], [place] [id number] Performed By: #### 2 4321-2 #### [facility] CLIA [id number] [address] CBC panel Auto (Bld)on 02-15 Erythrocyte distribution width (RBC) [Ratio] 13.2 % Normal 11.5-15.0 [facility] Comment on above: Order Comment: Speci men Type: BLOOD SPECIMEN Ordering Facility: [facility] Address: [address] [place] [address] Performed By: #### H STNT #### [facility] CLIA [id number] [address] Hematocrit (Bld) [Volume fraction] 30.6 % Low 36.0-46.0 [facility] Comment on above: Order Comment: Speci men Type: BLOOD SPECIMEN Ordering Facility: [facility] Address: [address] [place] [address] Performed By: #### H STNT #### [facility] CLIA [id number] [address] Hemoglobin (Bld) [Mass/Vol] 9.6 g/dL Low 11.5-15.5 [facility] Comment on above: Order Comment: Speci men Type: BLOOD SPECIMEN Ordering Facility: [facility] Address: [address] [place] [address] Performed By: #### H STNT #### [facility] CLIA [id number] [address] MCH (RBC) [Entitic mass] 30.3 pg Normal 26.0-34.0 [facility] Comment on above: Order Comment: Speci men Type: BLOOD SPECIMEN Ordering Facility: [facility] Address: [address] [place] [address] Performed By: #### H STNT #### [facility] CLIA [id number] [address] MCHC (RBC) [Mass/Vol] 31.4 g/dL Normal 30.5-36.0 [facility] Comment on above: Order Comment: Speci men Type: BLOOD SPECIMEN Ordering Facility: [facility] Address: [address] [place] [address] Performed By: #### H STNT #### [facility] CLIA [id number] [address] MCV (RBC) [Entitic vol] 96.5 fL Normal 80.0-100.0 [facility] Comment on above: Order Comment: Speci men Type: BLOOD SPECIMEN Ordering Facility: [facility] Address: [address] [place] [address] Performed By: #### H STNT #### [facility] CLIA [id number] [address] Nucleated RBC (Bld) [#/Vol] 10*3/uL Normal <0.01 [facility] Comment on above: Order Comment: Speci men Type: BLOOD SPECIMEN Ordering Facility: [facility] Address: [address] [address] Performed By: #### H STNT #### [facility] CLIA [id number] [address] OF [facility] Platelet mean volume (Bld) [Entitic vol] 8.8 fL Low 9.0-12.7 [facility] Comment on above: Order Comment: Speci men Type: BLOOD SPECIMEN Ordering Facility: [facility] Address: [address] [place] [address] Performed By: #### H STNT #### [facility] CLIA [id number] [address] [place] Platelets (Bld) [#/Vol] 181 10*3/uL Normal 150-400 [facility] Comment on above: Order Comment: Speci men Type: BLOOD SPECIMEN Ordering Facility: [facility] Address: [address] [address] Performed By: #### H STNT #### [facility] CLIA [id number] [address] OF [facility] RBC (Bld) [#/Vol] 3.17 10*6/uL Low 3.90-5.20 [facility] Comment on above: Order Comment: Speci men Type: BLOOD SPECIMEN Order[facility] Facility[facility] Address: [address] [place] [address] Performed By: #### H STNT #### [facility] CLIA [id number] [address] OF [facility] WBC (Bld) [#/Vol] 15.67 10*3/uL High 3.70-11.00 [facility] Comment on above: Order Comment: Speci men Type: BLOOD SPECIMEN Order[facility] Facility: [facility] Address: [address] [place] [address] Performed By: #### H STNT #### [facility] CLIA [id number] [address] CONSULTon 02-15-2023 CONSULT HNO ID: [id number] Author: Kaylee Coker MD Service: Urology Author [...] WHEN PFRMD Colonoscopy CYSTOURETHROSCOPY Cystoscopy EGD W/O [facility] SPEC VARICIES INJ 03/10/2022 PAST SURGICAL HISTORY [...] 500 m (more content not included)... Normal [facility] CONSULT HNO ID: [id number] Author: Camila Law APRN.CNP Service: Gastroenterology Author Type: Nurse Practitioner Type: Consults Filed: 02/15/2023 5:23 PM Note Text: INITIAL CONSULT GASTROENTEROLOGY SERVICE DATE: 02/15/2023 SERVICE TIME: 1:16 PM Consulting Service: Gastroenterology Chief Complaint: GI bleed Opinion/advice regarding: GI bleed Subjective HPI: This is a 82 year old female PMH COPD, gastritis, migraine presented to [facility] with c/o BRBPR. Of note pt seen [...] x5 Coronary Artery Disease Brother aged 52, [place] Diabetes Brother Type II No Family History [...] for richar (more content not included)... Normal [facility] HISTORY PHYSICALon HISTORY PHYSICAL HNO ID: [id number] Author: Rhiannon Madison DO Service: Hospital Medicine Author Type: Physician Type: HANDP Filed: 02/15/2023 12:01 AM Note Text: DEPARTMENT OF HOSPITAL MEDICINE HISTORY AND PHYSICAL EXAM SERVICE DATE: 02/14/2023 SERVICE TIME: 11:47 PM Primary Care Physician: Sergio Bailey MD NIGHT AND WEEKEND COVERAGE: From 7am - 7pm, please call sound After 7pm, please call cross cover pager #[phone] Subjective CHIEF COMPLAINT: GI bleed HPI: This [...] SURGICAL HISTORY OF 2014 R THR - [place] PAST SURGICAL HISTORY OF Right 07/2014 total hip replacement FAMILY HISTORY Problem Relation Age of Onset Cancer Father Coronary Artery Disease Father Early 70's CABG x5 Coronary Artery Disease Brother aged 52, [place] Diabetes Brother Type II No Family History [...] Apply to (more content not included)... Normal [facility] Hgb Bld-mCncon 02-15-2023 Hemoglobin (Bld) [Mass/Vol] 10.4 g/dL Low 11.5-15.5 [facility] Comment on above: Order Comment: Speci men Type: BLOOD SPECIMEN Order[facility] Facility[facility] Address: [facility] [place] [address] Performed By: #### 7 18-7 #### [facility] CLIA [id number] 1 [place] [address] [place] TYPE + SCREENon 02-15-2023 ABO O Normal [facility] Comment on above: Order Comment: Speci men Type: BLOOD SPECIMEN Ordering Facility[facility] Address: [address] [place] [address] Performed By: #### T SCR #### [facility] CLIA [id number] [address] HISTORICAL AB SCR STATUS Negative Normal [facility] Comment on above: Order Comment: Speci men Type: BLOOD SPECIMEN Order[facility] Facility[facility] Address: [address] [address] Performed By: #### T SCR #### [facility] CLIA [id number] [address] Rh Nom (Bld) Negative Normal [facility] Comment on above: Order Comment: Speci men Type: BLOOD SPECIMEN [facility] Address: [address] [place] [address] Performed By: #### T SCR #### [facility] CLIA [id number] [address] TYPE AND SCREEN EXPIRATION 02/18/2023 23:59 Normal [facility] Comment on above: Order Comment: Speci men Type: BLOOD SPECIMEN [facility] Address: [address] [place] [address] Performed By: #### T SCR #### [facility] CLIA [id number] [address] Absolute lymphocyte countOrd ered By: Hailee De Leon on 02-14-2023 Lymphocytes Auto (Unsp spec) [#/Vol] 1.46 10*3/uL 0.83-4.51 [facility] Basophil percentageOrdered B y: Hailee De Leon on 02-14-2023 Basophil percentage 0-5 SEEN /hpf 0-5 [facility] Lactate [Moles/Vol] 1.0 mmol/L 0.4-2.0 [facility] Basophils/100 WBC (Bld) 0.4 % 0-1 [facility] Chloride [Moles/Vol] 107 mmol/L 98-107 [facility] Eosinophils/100 WBC (Bld) 1.1 % 0-5 [facility] Glucose [Mass/Vol] 105 mg/dL 74-106 [facility] Comment on above: Fasting Glucose resu lt from 100 to 125 mg/dL suggests IMPAIRED HOMEOSTASIS per A.D.A. criteria. Neutrophils (Bld) [#/Vol] 12.9 10*3/uL 2.0-7.7 [facility] Neutrophils/100 WBC (Bld) 80.4 % 47-70 [facility] Potassium [Moles/Vol] 3.8 mmol/L 3.5-5.1 [facility] Sodium [Moles/Vol] 139 mmol/L 136-145 [facility] WBC (Bld) [#/Vol] 16.1 10*3/uL 4.4-11.0 [facility] Bilirubin Test strip Ql (U)O rdered By: Hailee De Leon on 02-14-2023 Bilirubin Ql (U) Negative Negative [facility] Blood erythrocytes count (nu mber/volume)Ordered By: Hailee De Leon on 02-14-2023 RBC (Bld) [#/Vol] 3.77 10*6/uL 4.2-5.4 [facility] Blood hemoglobin measurement (mass/volume)Ordered By: Hailee De Leon on 02-14-2023 Hemoglobin (Bld) [Mass/Vol] 11.4 g/dL 12.0-15.0 [facility] Blood lymphocytes/100 leukoc ytesOrdered By: Hailee De Leon on 02-14-2023 Lymphocytes/100 WBC (Bld) 9.1 % 19-41 [facility] Blood monocytes/100 leukocyt esOrdered By: Hailee De Leon on 02-14-2023 Monocytes/100 WBC (Bld) 8.3 % 0-10 [facility] Blood platelet mean volumeOr dered By: Hailee De Leon on 02-14-2023 Platelet mean volume (Bld) [Entitic vol] 8.9 fL 6.2-12.0 [facility] Culture, urineOrdered By: Eb De Leon on 02-14-2023 Bacteria identified Cx Nom (U) Mixed Gram Pos & Gram Neg Org [facility] Determination of erythrocyte mean corpuscular volume (MCV)Ordered By: Hailee De Leon on 02-14-2023 MCV (RBC) [Entitic vol] 96.6 fL 81-99 [facility] Hematocrit Auto (Bld) [Volum e fraction]Ordered By: Hailee De Leon on 02-14-2023 Hematocrit (Bld) [Volume fraction] 36.4 % 37-47 [facility] Ketones Test strip Ql (U)Ord ered By: Hailee De Leon on 02-14-2023 Ketones Ql (U) 15 mg/dl Negative [facility] Laboratory - Chemistry and C hemistry - challengeOrdered By: Hailee De Leon on 02-14-2023 Lipase [Catalytic activity/Vol] 20 U/L 13-75 [facility] Comment on above: Please note:LIPASE r evised reference range effective 22. New Lipase methodology. Expected to produce lower values than the previous assay method. NEW Reference Range: 13 - 75 U/L CO2 [Moles/Vol] 28.0 mmol/L 21.0-32.0 [facility] Urea nitrogen/Creatinine [Mass ratio] 22.0 mg/mg 10-20 [facility] - Hematology and Cell countsOrdered By: Hailee De Leon on 02-14-2023 Erythrocyte distribution width (RBC) [Entitic vol] 46.6 fL 35.1-43.9 [facility] Erythrocyte distribution width (RBC) [Ratio] 13.2 % 11.6-14.6 [facility] Immature granulocytes/100 WBC (Bld) 0.700 % 0.0-0.9 [facility] Comment on above: IG% - Immature Granu locytes (promyelocytes, myelocytes and metamyelocytes) > 1% indicates that a LEFT SHIFT is Present. MCH (RBC) [Entitic mass] 30.2 pg 27.0-32.0 [facility] Nucleated RBC/100 WBC (Bld) [Ratio] 0 % 0-5 [facility] MCHC Auto (RBC) [Mass/Vol]Or dered By: Hailee De Leon on 02-14-2023 MCHC (RBC) [Mass/Vol] 31.3 g/dL 32-36 [facility] Mucus LM Ql (Urine sed)Order ed By: Hailee De Leon on 02-14-2023 Mucus Ql (Urine sed) 0 SEEN /hpf [facility] Nitrite Test strip Ql (U)Ord ered By: Hailee De Leon on 02-14-2023 Nitrite Ql (U) Negative Negative [facility] No Panel InformationOrdered By: Hailee De Leon on 02-14-2023 Estimated Creatinine Clearance Calc 42.28 ml/min [facility] Estimated GFR (MDRD) Amer 81 mL/min >60 [facility] Comment on above: GFR Calc Estimated GFR (MDRD) Non-Af Amer 67 mL/min >60 [facility] Comment on above: Non- GFR Calc Platelets bldOrdered By: Marybeth De Leon on 02-14-2023 Platelets (Bld) [#/Vol] 245 10*3/uL 150-450 [facility] Protein Test strip Ql (U)Ord ered By: Hailee De Leon on 02-14-2023 Protein Ql (U) 15 mg/dl Negative [facility] Serum or plasma calcium anthony urement (mass/volume)Ordered By: Hailee De Leon on 02-14-2023 Calcium [Mass/Vol] 9.1 mg/dL 8.5-10.1 [facility] Serum or plasma creatinine m easurement (mass/volume)Ordered By: Hailee De Leon on 02-14-2023 Creatinine [Mass/Vol] 0.86 mg/dL 0.55-1.02 [facility] Comment on above: The validity of the calculated GFR & GFRAA in patients over 70 years has not been determined. Clinical correlation is essential. Serum or plasma urea nitroge n measurement (mass/volume)Ordered By: Hailee De Leon on 02-14-2023 Urea nitrogen [Mass/Vol] 19 mg/dL 7-18 [facility] Squamous epithelial cells de tection in urine sediment by light microscopyOrdered By: Hailee De Leon on 02-14-2023 Epithelial cells.squamous LM Ql (Urine sed) 0 SEEN /hpf 5-10 [facility] Thin prep Papanicolaou smear with manual screeningOrdered By: Hailee De Leon on 02-14-2023 Thin prep Papanicolaou smear with manual screening 4 - [facility] Urine blood detectionOrdered By: Hailee De Leon on 02-14-2023 RBC Ql (U) 150 /ul Negative [facility] RBC Ql (U) 0-5 SEEN /hpf 0-5 [facility] Urine clarityOrdered By: Marybeth De Leon on 02-14-2023 Clarity (U) Clear Clear [facility] Urine color determinationOrd ered By: Hailee De Leon on 02-14-2023 Color (U) Yellow Yellow [facility] Urine glucose detectionOrder ed By: Hailee De Leon on 02-14-2023 Glucose Ql (U) Normal mg/dl Normal [facility] Urine leukocyte esterase det ection by dipstickOrdered By: Hailee De Leon on 02-14-2023 Leukocyte esterase Test strip Ql (U) 100 /ul Negative [facility] Urine pHOrdered By: Hailee saleh on 02-14-2023 pH (U) 6.0 [pH] 5.0 - 8.0 [facility] Urine sediment bacteria coun t by microscopy (number/high power field)Ordered By: Hailee De Leon on 02-14-2023 Bacteria LM.HPF (Urine sed) [#/Area] RARE /hpf None Seen [facility] Urine specific gravity measu rementOrdered By: Hailee De Leon on 02-14-2023 Specific gravity (U) [Rel density] 1.015 1.002-1.030 [facility] Urobilinogen Auto test strip Ql (U)Ordered By: Hailee De Leon on 02-14-2023 Urobilinogen Ql (U) Normal mg/dl Normal [facility] Absolute lymphocyte countOrd ered By: Alis Sorenson on 02-13-2023 Lymphocytes Auto (Unsp spec) [#/Vol] 0.91 10*3/uL 0.83-4.51 [facility] Basophil percentageOrdered B y: Alis Sorenson on 02-13-2023 Basophils/100 WBC (Bld) 0.5 % 0-1 [facility] Bilirubin [Mass/Vol] 0.40 mg/dL 0.20-1.00 [facility] Comment on above: For patients on eltr ombopag therapy, use of Dimension [place] TBIL is not recommended. Chloride [Moles/Vol] 107 mmol/L 98-107 [facility] Eosinophils/100 WBC (Bld) 2.1 % 0-5 [facility] Glucose [Mass/Vol] 131 mg/dL 74-106 [facility] Comment on above: Fasting Glucose resu lt greater than or equal to 126 mg/dL suggests DIABETES MELLITUS per A.D.A. criteria. Neutrophils (Bld) [#/Vol] 14.0 10*3/uL 2.0-7.7 [facility] Neutrophils/100 WBC (Bld) 83.5 % 47-70 [facility] Potassium [Moles/Vol] 4.2 mmol/L 3.5-5.1 [facility] Protein [Mass/Vol] 6.5 g/dL 6.4-8.2 [facility] Sodium [Moles/Vol] 139 mmol/L 136-145 [facility] WBC (Bld) [#/Vol] 16.8 10*3/uL 4.4-11.0 [facility] Blood erythrocytes count (nu mber/volume)Ordered By: Alis Sorenson on 02-13-2023 RBC (Bld) [#/Vol] 4.43 10*6/uL 4.2-5.4 [facility] Blood hemoglobin measurement (mass/volume)Ordered By: Alis Sorenson on 02-13-2023 Hemoglobin (Bld) [Mass/Vol] 13.4 g/dL 12.0-15.0 [facility] Blood lymphocytes/100 leukoc ytesOrdered By: Alis Sorenson on 02-13-2023 Lymphocytes/100 WBC (Bld) 5.4 % 19-41 [facility] Blood monocytes/100 leukocyt esOrdered By: Alis Sorenson on 02-13-2023 Monocytes/100 WBC (Bld) 7.9 % 0-10 [facility] Blood platelet mean volumeOr dered By: Alis Sorenson on 02-13-2023 Platelet mean volume (Bld) [Entitic vol] 8.9 fL 6.2-12.0 [facility] Determination of erythrocyte mean corpuscular volume (MCV)Ordered By: Alis Sorenson on 02-13-2023 MCV (RBC) [Entitic vol] 98.0 fL 81-99 [facility] Direct bilirubinOrdered By: Alis Sorenson on 02-13-2023 Bilirubin.direct [Mass/Vol] 0.11 mg/dL 0.00-0.30 [facility] Hematocrit Auto (Bld) [Volum e fraction]Ordered By: Alis Sorenson on 02-13-2023 Hematocrit (Bld) [Volume fraction] 43.4 % 37-47 [facility] Laboratory - Chemistry and C hemistry - challengeOrdered By: Alis Sorenson on 02-13-2023 ALP [Catalytic activity/Vol] 72 U/L 45-117 [facility] ALT [Catalytic activity/Vol] 15 U/L 13-56 [facility] CO2 [Moles/Vol] 27.0 mmol/L 21.0-32.0 [facility] Globulin (S) [Mass/Vol] 3.1 g/dL 2.2-4.2 [facility] Lipase [Catalytic activity/Vol] 51 U/L 13-75 [facility] Comment on above: Please note:LIPASE r evised reference range effective 22. New Lipase methodology. Expected to produce lower values than the previous assay method. NEW Reference Range: 13 - 75 U/L Urea nitrogen/Creatinine [Mass ratio] 21.0 mg/mg 10-20 [facility] - Hematology and Cell countsOrdered By: Alis Sorenson on 02-13-2023 Erythrocyte distribution width (RBC) [Entitic vol] 45.9 fL 35.1-43.9 [facility] Erythrocyte distribution width (RBC) [Ratio] 12.9 % 11.6-14.6 [facility] Immature granulocytes/100 WBC (Bld) 0.600 % 0.0-0.9 [facility] Comment on above: IG% - Immature Granu locytes (promyelocytes, myelocytes and metamyelocytes) > 1% indicates that a LEFT SHIFT is Present. MCH (RBC) [Entitic mass] 30.2 pg 27.0-32.0 [facility] Nucleated RBC/100 WBC (Bld) [Ratio] 0 % 0-5 [facility] MCHC Auto (RBC) [Mass/Vol]Or dered By: Alis Sorenson on 02-13-2023 MCHC (RBC) [Mass/Vol] 30.9 g/dL 32-36 [facility] No Panel InformationOrdered By: Alis Sorenson on 02-13-2023 Estimated Creatinine Clearance Calc 29.27 ml/min [facility] Estimated GFR (MDRD) Amer 53 mL/min >60 [facility] Comment on above: GFR Calc Estimated GFR (MDRD) Non-Af Amer 44 mL/min >60 [facility] Comment on above: Non- GFR Calc Platelets bldOrdered By: Arcelia Sorenson on 02-13-2023 Platelets (Bld) [#/Vol] 292 10*3/uL 150-450 [facility] Serum or plasma albumin anthony urement (mass/volume)Ordered By: Alis Sorenson on 02-13-2023 Albumin [Mass/Vol] 3.4 g/dL 3.2-5.0 [facility] Serum or plasma calcium anthony urement (mass/volume)Ordered By: Alis Sorenson on 02-13-2023 Calcium [Mass/Vol] 9.0 mg/dL 8.5-10.1 [facility] Serum or plasma creatinine m easurement (mass/volume)Ordered By: Alis Sorenson on 02-13-2023 Creatinine [Mass/Vol] 1.24 mg/dL 0.55-1.02 [facility] Comment on above: The validity of the calculated GFR & GFRAA in patients over 70 years has not been determined. Clinical correlation is essential. Serum or plasma urea nitroge n measurement (mass/volume)Ordered By: Alis Sorenson on 02-13-2023 Urea nitrogen [Mass/Vol] 26 mg/dL 7-18 [facility] Thin prep Papanicolaou smear with manual screeningOrdered By: Alis Sorenson on 02-13-2023 Thin prep Papanicolaou smear with manual screening 18 U/L 15-37 [facility] Thin prep Papanicolaou smear with manual screening 5 5-15 [facility] Absolute lymphocyte countOrd ered By: Valentina Palomares on 01-26-2023 Lymphocytes Auto (Unsp spec) [#/Vol] 2.39 10*3/uL 0.83-4.51 [facility] Basophil percentageOrdered B y: Valentina Palomares on 01-26-2023 Basophils/100 WBC (Bld) 0.6 % 0-1 [facility] Bilirubin [Mass/Vol] 0.20 mg/dL 0.20-1.00 [facility] Comment on above: For patients on eltr ombopag therapy, use of Dimension [place] TBIL is not recommended. Chloride [Moles/Vol] 106 mmol/L 98-107 [facility] Cholesterol [Mass/Vol] 215 mg/dL <200 [facility] Comment on above: <200 mg/dL Desirable 200-240 mg/dL Borderline >240 mg/dL High Risk Eosinophils/100 WBC (Bld) 6.3 % 0-5 [facility] Glucose [Mass/Vol] 104 mg/dL 74-106 [facility] Comment on above: Fasting Glucose resu lt from 100 to 125 mg/dL suggests IMPAIRED HOMEOSTASIS per A.D.A. criteria. Neutrophils (Bld) [#/Vol] 3.1 10*3/uL 2.0-7.7 [facility] Neutrophils/100 WBC (Bld) 47.3 % 47-70 [facility] Potassium [Moles/Vol] 3.6 mmol/L 3.5-5.1 [facility] Protein [Mass/Vol] 6.6 g/dL 6.4-8.2 [facility] Sodium [Moles/Vol] 140 mmol/L 136-145 [facility] Triglyceride [Mass/Vol] 129 mg/dL <199 [facility] Comment on above: The drugs N-Acetylcy steine and Metamizole may falsely depress this assay.Serum Triglycerides Reference Interval Normal <150 mg/dL Borderline high 150 - 199 mg/dL High 200 - 499 mg/dL Very High > or = 500 mg/dL WBC (Bld) [#/Vol] 6.5 10*3/uL 4.4-11.0 [facility] Blood erythrocytes count (nu mber/volume)Ordered By: Valentina Palomares on 01-26-2023 RBC (Bld) [#/Vol] 4.15 10*6/uL 4.2-5.4 [facility] Blood hemoglobin measurement (mass/volume)Ordered By: Valentina Palomares on 01-26-2023 Hemoglobin (Bld) [Mass/Vol] 12.5 g/dL 12.0-15.0 [facility] Blood lymphocytes/100 leukoc ytesOrdered By: Valentina Jelani on 01-26-2023 Lymphocytes/100 WBC (Bld) 36.6 % 19-41 [facility] Blood monocytes/100 leukocyt esOrdered By: [facility] Jelani on 01-26-2023 Monocytes/100 WBC (Bld) 9.0 % 0-10 [facility] Blood platelet mean volumeOr dered By: [facility] Jelani on 01-26-2023 Platelet mean volume (Bld) [Entitic vol] 8.7 fL 6.2-12.0 [facility] Determination of erythrocyte mean corpuscular volume (MCV)Ordered By: Valentina Palomares on 01-26-2023 MCV (RBC) [Entitic vol] 95.9 fL 81-99 [facility] Hematocrit Auto (Bld) [Volum e fraction]Ordered By: [facility] Jelani on 01-26-2023 Hematocrit (Bld) [Volume fraction] 39.8 % 37-47 [facility] - Chemistry and C hemistry - challengeOrdered By: [facility] Jelani on 01-26-2023 ALP [Catalytic activity/Vol] 67 U/L 45-117 [facility] ALT [Catalytic activity/Vol] 17 U/L 13-56 [facility] CO2 [Moles/Vol] 29.0 mmol/L 21.0-32.0 [facility] Globulin (S) [Mass/Vol] 3.0 g/dL 2.2-4.2 [facility] Urea nitrogen/Creatinine [Mass ratio] 21.3 mg/mg 10-20 [facility] - Hematology and Cell countsOrdered By: Valentina Jelani on 01-26-2023 Erythrocyte distribution width (RBC) [Entitic vol] 46.8 fL 35.1-43.9 [facility] Erythrocyte distribution width (RBC) [Ratio] 13.2 % 11.6-14.6 [facility] Immature granulocytes/100 WBC (Bld) 0.200 % 0.0-0.9 [facility] Comment on above: IG% - Immature Granu locytes (promyelocytes, myelocytes and metamyelocytes) > 1% indicates that a LEFT SHIFT is Present. MCH (RBC) [Entitic mass] 30.1 pg 27.0-32.0 [facility] Nucleated RBC/100 WBC (Bld) [Ratio] 0 % 0-5 [facility] MCHC Auto (RBC) [Mass/Vol]Or dered By: Valentina Palomares on 01-26-2023 MCHC (RBC) [Mass/Vol] 31.4 g/dL 32-36 [facility] Comment on above: Delta: 33.6 on 01/25-1540 No Panel InformationOrdered By: Valentina Palomares on 01-26-2023 Estimated Creatinine Clearance Calc 42.52 ml/min [facility] Estimated GFR (MDRD) Amer 83 mL/min >60 [facility] Comment on above: GFR Calc Estimated GFR (MDRD) Non-Af Amer 68 mL/min >60 [facility] Comment on above: Non- GFR Calc Platelets bldOrdered By: Ana Luisa Palomares on 01-26-2023 Platelets (Bld) [#/Vol] 273 10*3/uL 150-450 [facility] Serum or plasma albumin anthony urement (mass/volume)Ordered By: Valentina Palomares on 01-26-2023 Albumin [Mass/Vol] 3.6 g/dL 3.2-5.0 [facility] Serum or plasma albumin/glob ulin mass ratioOrdered By: Valentina Palomares on 01-26-2023 Albumin/Globulin [Mass ratio] 1.2 {ratio} 0.9-2.4 [facility] Serum or plasma calcium anthony urement (mass/volume)Ordered By: Valentina Palomares on 01-26-2023 Calcium [Mass/Vol] 8.9 mg/dL 8.5-10.1 [facility] Serum or plasma cholesterol in HDL measurement (mass/volume)Ordered By: Valentina Palomares on 01-26-2023 Cholesterol in HDL [Mass/Vol] 68 mg/dL >40 [facility] Comment on above: The drugs N-Acetylcy steine and Metamizole may falsely depress this assay. Reference Range HDL <40 mg/dL Low HDL Cholesterol HDL >or= 60 mg/dL High HDL Cholesterol Serum or plasma cholesterol in VLDL measurement (mass/volume)Ordered By: Valentina Palomares on 01-26-2023 Cholesterol in VLDL [Mass/Vol] 26 mg/dL 5-40 [facility] Serum or plasma creatinine m easurement (mass/volume)Ordered By: Valentina Palomares on 01-26-2023 Creatinine [Mass/Vol] 0.84 mg/dL 0.55-1.02 [facility] Comment on above: The validity of the calculated GFR & GFRAA in patients over 70 years has not been determined. Clinical correlation is essential. Serum or plasma low density lipoprotein (LDL) cholesterol measurement (mass/volume)Ordered By: [facility] Jelani on 01-26-2023 Cholesterol in LDL [Mass/Vol] 121 mg/dL 0-130 [facility] Serum or plasma urea nitroge n measurement (mass/volume)Ordered By: [facility] Jelani on 01-26-2023 Urea nitrogen [Mass/Vol] 18 mg/dL 7-18 [facility] Thin prep Papanicolaou smear with manual screeningOrdered By: Valentina Jelani on 01-26-2023 Thin prep Papanicolaou smear with manual screening 18 U/L 15-37 [facility] Thin prep Papanicolaou smear with manual screening 5 5-15 [facility] Absolute lymphocyte countOrd ered By: Jean Morales on 01-25-2023 Lymphocytes Auto (Unsp spec) [#/Vol] 2.68 10*3/uL 0.83-4.51 [facility] Basophil percentageOrdered B y: Jean Morales on 01-25-2023 Basophils/100 WBC (Bld) 0.8 % 0-1 [facility] Chloride [Moles/Vol] 108 mmol/L 98-107 [facility] Eosinophils/100 WBC (Bld) 4.0 % 0-5 [facility] Glucose [Mass/Vol] 117 mg/dL 74-106 [facility] Comment on above: Fasting Glucose resu lt from 100 to 125 mg/dL suggests IMPAIRED HOMEOSTASIS per A.D.A. criteria. Neutrophils (Bld) [#/Vol] 2.6 10*3/uL 2.0-7.7 [facility] Neutrophils/100 WBC (Bld) 41.5 % 47-70 [facility] Potassium [Moles/Vol] 3.5 mmol/L 3.5-5.1 [facility] Sodium [Moles/Vol] 140 mmol/L 136-145 [facility] WBC (Bld) [#/Vol] 6.2 10*3/uL 4.4-11.0 [facility] Blood erythrocytes count (nu mber/volume)Ordered By: Jean Morales on 01-25-2023 RBC (Bld) [#/Vol] 3.90 10*6/uL 4.2-5.4 [facility] Blood hemoglobin measurement (mass/volume)Ordered By: Jean Morales on 01-25-2023 Hemoglobin (Bld) [Mass/Vol] 12.2 g/dL 12.0-15.0 [facility] Blood lymphocytes/100 leukoc ytesOrdered By: Jean Morales on 01-25-2023 Lymphocytes/100 WBC (Bld) 43.3 % 19-41 [facility] Blood monocytes/100 leukocyt esOrdered By: Jean Mroales on 01-25-2023 Monocytes/100 WBC (Bld) 10.2 % 0-10 [facility] Blood platelet mean volumeOr dered By: Jean Morales on 01-25-2023 Platelet mean volume (Bld) [Entitic vol] 9.0 fL 6.2-12.0 [facility] Determination of erythrocyte mean corpuscular volume (MCV)Ordered By: Jean Morales on 01-25-2023 MCV (RBC) [Entitic vol] 93.1 fL 81-99 [facility] Hematocrit Auto (Bld) [Volum e fraction]Ordered By: Jean Morales on 01-25-2023 Hematocrit (Bld) [Volume fraction] 36.3 % 37-47 [facility] - Chemistry and C hemistry - challengeOrdered By: Valentina Palomares on 01-25-2023 Magnesium [Mass/Vol] 1.2 mg/dL 1.6-2.6 [facility] Comment on above: Moderate Hemolysis, Result may be falsely increased. Laboratory - Chemistry and C hemistry - challengeOrdered By: Jean Morales on 01-25-2023 CO2 [Moles/Vol] 28.0 mmol/L 21.0-32.0 [facility] Urea nitrogen/Creatinine [Mass ratio] 22.5 mg/mg 10-20 [facility] - Hematology and Cell countsOrdered By: Jean Morales on 01-25-2023 Erythrocyte distribution width (RBC) [Entitic vol] 44.9 fL 35.1-43.9 [facility] Erythrocyte distribution width (RBC) [Ratio] 13.2 % 11.6-14.6 [facility] Immature granulocytes/100 WBC (Bld) 0.200 % 0.0-0.9 [facility] Comment on above: IG% - Immature Granu locytes (promyelocytes, myelocytes and metamyelocytes) > 1% indicates that a LEFT SHIFT is Present. MCH (RBC) [Entitic mass] 31.3 pg 27.0-32.0 [facility] Nucleated RBC/100 WBC (Bld) [Ratio] 0 % 0-5 [facility] MCHC Auto (RBC) [Mass/Vol]Or dered By: Jean Morales on 01-25-2023 MCHC (RBC) [Mass/Vol] 33.6 g/dL 32-36 [facility] No Panel InformationOrdered By: Valentina Palomares on 01-25-2023 Troponin I High Sensitivity 13 pg/mL 3.0-54.0 [facility] Comment on above: Please Note: New Kathy t Units and Gender Specific Reference Ranges. For more information see Policy Stat Procedure [place] High Sensitivity Troponin (TNIH) and attachments. No Panel InformationOrdered By: Jean Morales on 01-25-2023 Troponin I High Sensitivity 17 pg/mL 3.0-54.0 [facility] Comment on above: Please Note: New Kathy t Units and Gender Specific Reference Ranges. For more information see Policy Stat Procedure [place] High Sensitivity Troponin (TNIH) and attachments. Estimated Creatinine Clearance Calc 43.48 ml/min [facility] Estimated GFR (MDRD) Amer 88 mL/min >60 [facility] Comment on above: GFR Calc Estimated GFR (MDRD) Non-Af Amer 73 mL/min >60 [facility] Comment on above: Non- GFR Calc Platelets bldOrdered By: Shay Morales on 01-25-2023 Platelets (Bld) [#/Vol] 270 10*3/uL 150-450 [facility] Serum or plasma calcium anthony urement (mass/volume)Ordered By: Jean Morales on 01-25-2023 Calcium [Mass/Vol] 9.0 mg/dL 8.5-10.1 [facility] Serum or plasma creatinine m easurement (mass/volume)Ordered By: Jean Morales on 01-25-2023 Creatinine [Mass/Vol] 0.80 mg/dL 0.55-1.02 [facility] Comment on above: The validity of the calculated GFR & GFRAA in patients over 70 years has not been determined. Clinical correlation is essential. Serum or plasma urea nitroge n measurement (mass/volume)Ordered By: Jean Morales on 01-25-2023 Urea nitrogen [Mass/Vol] 18 mg/dL 7-18 [facility] Thin prep Papanicolaou smear with manual screeningOrdered By: Jean Morales on 01-25-2023 Thin prep Papanicolaou smear with manual screening 4 5-15 [facility] Basophil percentageOrdered B y: Dr. Nava on 10-18-2022 WBC (Bld) [#/Vol] 5.3 10*3/uL 4.4-11.0 [facility] Blood erythrocytes count (nu mber/volume)Ordered By: Dr. Nava on 10-18-2022 RBC (Bld) [#/Vol] 4.14 10*6/uL 4.2-5.4 [facility] Blood hemoglobin measurement (mass/volume)Ordered By: Dr. aNva on 10-18-2022 Hemoglobin (Bld) [Mass/Vol] 12.7 g/dL 12.0-15.0 [facility] Blood platelet mean volumeOr dered By: Dr. Nava on 10-18-2022 Platelet mean volume (Bld) [Entitic vol] 9.4 fL 6.2-12.0 [facility] Determination of erythrocyte mean corpuscular volume (MCV)Ordered By: Dr. Nava on 10-18-2022 MCV (RBC) [Entitic vol] 94.7 fL 81-99 [facility] Hematocrit Auto (Bld) [Volum e fraction]Ordered By: Dr. Nava on 10-18-2022 Hematocrit (Bld) [Volume fraction] 39.2 % 37-47 [facility] - Hematology and Cell countsOrdered By: Dr. Nava on 10-18-2022 Erythrocyte distribution width (RBC) [Entitic vol] 42.6 fL 35.1-43.9 [facility] Erythrocyte distribution width (RBC) [Ratio] 12.2 % 11.6-14.6 [facility] MCH (RBC) [Entitic mass] 30.7 pg 27.0-32.0 [facility] MCHC Auto (RBC) [Mass/Vol]Or dered By: Dr. Nava on 10-18-2022 MCHC (RBC) [Mass/Vol] 32.4 g/dL 32-36 [facility] Platelets bldOrdered By: Dr. Nava on 10-18-2022 Platelets (Bld) [#/Vol] 277 10*3/uL 150-450 [facility] Culture, urineOrdered By: Dr Olga Bailey on 08-27-2022 Bacteria identified Cx Nom (U) Culture exhibits no growth. [facility] Basophil percentageOrdered B y: Dr. Bailey on 08-25-2022 Basophil percentage 0 SEEN /hpf 0-5 [facility] Bilirubin Test strip Ql (U)O rdered By: Dr. Bailey on 08-25-2022 Bilirubin Ql (U) Negative Negative [facility] Ketones Test strip Ql (U)Ord ered By: Dr. Bailey on 08-25-2022 Ketones Ql (U) Negative Negative [facility] Mucus LM Ql (Urine sed)Order ed By: Dr. Bailey on 08-25-2022 Mucus Ql (Urine sed) 0 SEEN /hpf [facility] Nitrite Test strip Ql (U)Ord ered By: Dr. Bailey on 08-25-2022 Nitrite Ql (U) Negative Negative [facility] Protein Test strip Ql (U)Ord ered By: Dr. Bailey on 08-25-2022 Protein Ql (U) Negative Negative [facility] Squamous epithelial cells de tection in urine sediment by light microscopyOrdered By: Dr. Bailey on 08-25-2022 Epithelial cells.squamous LM Ql (Urine sed) 0 SEEN /hpf 5-10 [facility] Urine blood detectionOrdered By: Dr. Bailey on 08-25-2022 RBC Ql (U) 10 /ul Negative [facility] RBC Ql (U) 0-5 SEEN /hpf 0-5 [facility] Urine clarityOrdered By: Dr. Bailey on 08-25-2022 Clarity (U) Clear Clear [facility] Urine color determinationOrd ered By: Dr. Bailey on 08-25-2022 Color (U) Yellow Yellow [facility] Urine glucose detectionOrder ed By: Dr. Bailey on 08-25-2022 Glucose Ql (U) Normal mg/dl Normal [facility] Urine leukocyte esterase det ection by dipstickOrdered By: Dr. Bailey on 08-25-2022 Leukocyte esterase Test strip Ql (U) Negative Negative [facility] Urine pHOrdered By: Dr. Atul schmidt on 08-25-2022 pH (U) 7.0 [pH] 5.0 - 8.0 [facility] Urine sediment bacteria coun t by microscopy (number/high power field)Ordered By: Dr. Bailey on 08-25-2022 Bacteria LM.HPF (Urine sed) [#/Area] 0 /[HPF] None Seen [facility] Urine specific gravity measu rementOrdered By: Dr. Bailey on 08-25-2022 Specific gravity (U) [Rel density] 1.010 1.002-1.030 [facility] Urobilinogen Auto test strip Ql (U)Ordered By: Dr. Bailey on 08-25-2022 Urobilinogen Ql (U) Normal mg/dl Normal [facility] Absolute lymphocyte countOrd ered By: Dr. Bailey on 08-12-2022 Lymphocytes Auto (Unsp spec) [#/Vol] 1.85 10*3/uL 0.83-4.51 [facility] Basophil percentageOrdered B y: Dr. Bailey on 08-12-2022 Basophils/100 WBC (Bld) 0.6 % 0-1 [facility] Bilirubin [Mass/Vol] 0.40 mg/dL 0.20-1.00 [facility] Comment on above: For patients on eltr ombopag therapy, use of Dimension [place] TBIL is not recommended. Chloride [Moles/Vol] 101 mmol/L 98-107 [facility] Eosinophils/100 WBC (Bld) 6.3 % 0-5 [facility] Glucose [Mass/Vol] 102 mg/dL 74-106 [facility] Comment on above: Fasting Glucose resu lt from 100 to 125 mg/dL suggests IMPAIRED HOMEOSTASIS per A.D.A. criteria. Neutrophils (Bld) [#/Vol] 3.3 10*3/uL 2.0-7.7 [facility] Neutrophils/100 WBC (Bld) 53.0 % 47-70 [facility] Potassium [Moles/Vol] 3.9 mmol/L 3.5-5.1 [facility] Protein [Mass/Vol] 6.9 g/dL 6.4-8.2 [facility] Sodium [Moles/Vol] 136 mmol/L 136-145 [facility] WBC (Bld) [#/Vol] 6.2 10*3/uL 4.4-11.0 [facility] Blood erythrocytes count (nu mber/volume)Ordered By: Dr. Bailey on 08-12-2022 RBC (Bld) [#/Vol] 4.27 10*6/uL 4.2-5.4 [facility] Blood hemoglobin measurement (mass/volume)Ordered By: Dr. Bailey on 08-12-2022 Hemoglobin (Bld) [Mass/Vol] 13.2 g/dL 12.0-15.0 [facility] Blood lymphocytes/100 leukoc ytesOrdered By: Dr. Bailey on 08-12-2022 Lymphocytes/100 WBC (Bld) 29.8 % 19-41 [facility] Blood monocytes/100 leukocyt esOrdered By: Dr. Bailey on 08-12-2022 Monocytes/100 WBC (Bld) 10.0 % 0-10 [facility] Blood platelet mean volumeOr dered By: Dr. Bailey on 08-12-2022 Platelet mean volume (Bld) [Entitic vol] 9.6 fL 6.2-12.0 [facility] Determination of erythrocyte mean corpuscular volume (MCV)Ordered By: Dr. Bailey on 08-12-2022 MCV (RBC) [Entitic vol] 94.8 fL 81-99 [facility] Hematocrit Auto (Bld) [Volum e fraction]Ordered By: Dr. Bailey on 08-12-2022 Hematocrit (Bld) [Volume fraction] 40.5 % 37-47 [facility] - Chemistry and C hemistry - challengeOrdered By: Dr. Bailey on 08-12-2022 ALP [Catalytic activity/Vol] 75 U/L 45-117 [facility] ALT [Catalytic activity/Vol] 14 U/L 13-56 [facility] CO2 [Moles/Vol] 27.0 mmol/L 21.0-32.0 [facility] Cobalamin (Vitamin B12) [Mass/Vol] 1178 pg/mL 211-911 [facility] Globulin (S) [Mass/Vol] 3.0 g/dL 2.2-4.2 [facility] Urea nitrogen/Creatinine [Mass ratio] 17.9 mg/mg 10-20 [facility] - Hematology and Cell countsOrdered By: Dr. Bailey on 08-12-2022 Erythrocyte distribution width (RBC) [Entitic vol] 42.5 fL 35.1-43.9 [facility] Erythrocyte distribution width (RBC) [Ratio] 12.2 % 11.6-14.6 [facility] Immature granulocytes/100 WBC (Bld) 0.300 % 0.0-0.9 [facility] Comment on above: IG% - Immature Granu locytes (promyelocytes, myelocytes and metamyelocytes) > 1% indicates that a LEFT SHIFT is Present. MCH (RBC) [Entitic mass] 30.9 pg 27.0-32.0 [facility] Nucleated RBC/100 WBC (Bld) [Ratio] 0 % 0-5 [facility] MCHC Auto (RBC) [Mass/Vol]Or dered By: Dr. Bailey on 08-12-2022 MCHC (RBC) [Mass/Vol] 32.6 g/dL 32-36 [facility] No Panel InformationOrdered By: Dr. Bailey on 08-12-2022 Estimated GFR (MDRD) Amer 83 mL/min >60 [facility] Comment on above: GFR Calc Estimated GFR (MDRD) Non-Af Amer 69 mL/min >60 [facility] Comment on above: Non- GFR Calc Platelets bldOrdered By: Dr. Bailey on 08-12-2022 Platelets (Bld) [#/Vol] 257 10*3/uL 150-450 [facility] Serum or plasma albumin anthony urement (mass/volume)Ordered By: Dr. Bailey on 08-12-2022 Albumin [Mass/Vol] 3.9 g/dL 3.2-5.0 [facility] Serum or plasma albumin/glob ulin mass ratioOrdered By: Dr. Bailey on 08-12-2022 Albumin/Globulin [Mass ratio] 1.3 {ratio} 0.9-2.4 [facility] Serum or plasma calcium anthony urement (mass/volume)Ordered By: Dr. Bailey on 08-12-2022 Calcium [Mass/Vol] 9.3 mg/dL 8.5-10.1 [facility] Serum or plasma creatinine m easurement (mass/volume)Ordered By: Dr. Bailey on 08-12-2022 Creatinine [Mass/Vol] 0.84 mg/dL 0.55-1.02 [facility] Comment on above: The validity of the calculated GFR & GFRAA in patients over 70 years has not been determined. Clinical correlation is essential. Serum or plasma ferritin abrahan surement (mass/volume)Ordered By: Dr. Bailey on 08-12-2022 Ferritin [Mass/Vol] 105 ng/mL 8-252 [facility] Serum or plasma folate measu rement (mass/volume)Ordered By: Dr. Bailey on 08-12-2022 Folate [Mass/Vol] 6.10 ng/mL 3.1-55.4 [facility] Serum or plasma urea nitroge n measurement (mass/volume)Ordered By: Dr. Bailey on 08-12-2022 Urea nitrogen [Mass/Vol] 15 mg/dL 7-18 [facility] Thin prep Papanicolaou smear with manual screeningOrdered By: Dr. Bailey on 08-12-2022 Thin prep Papanicolaou smear with manual screening 19 U/L 15-37 [facility] Thin prep Papanicolaou smear with manual screening 8 5-15 [facility] Culture, urineOrdered By: Dr Olga Bailey on 07-15-2022 Bacteria identified Cx Nom (U) Positive [facility] Basophil percentageOrdered B y: Dr. Bailey on 07-13-2022 Basophil percentage 0 SEEN /hpf 0-5 [facility] Bilirubin Test strip Ql (U)O rdered By: Dr. Bailey on 07-13-2022 Bilirubin Ql (U) Negative Negative [facility] Ketones Test strip Ql (U)Ord ered By: Dr. Bailey on 07-13-2022 Ketones Ql (U) Negative Negative [facility] Mucus LM Ql (Urine sed)Order ed By: Dr. Bailey on 07-13-2022 Mucus Ql (Urine sed) 0 SEEN /hpf [facility] Nitrite Test strip Ql (U)Ord ered By: Dr. Bailey on 07-13-2022 Nitrite Ql (U) Negative Negative [facility] Protein Test strip Ql (U)Ord ered By: Dr. Bailey on 07-13-2022 Protein Ql (U) 30 mg/dl Negative [facility] Squamous epithelial cells de tection in urine sediment by light microscopyOrdered By: Dr. Bailey on 07-13-2022 Epithelial cells.squamous LM Ql (Urine sed) 0 SEEN /hpf 5-10 [facility] Urine blood detectionOrdered By: Dr. Bailey on 07-13-2022 RBC Ql (U) 10 /ul Negative [facility] RBC Ql (U) 0 SEEN /hpf 0-5 [facility] Urine clarityOrdered By: Dr. Bailey on 07-13-2022 Clarity (U) Clear Clear [facility] Urine color determinationOrd ered By: Dr. Bailey on 07-13-2022 Color (U) Straw Yellow [facility] Urine glucose detectionOrder ed By: Dr. Bailey on 07-13-2022 Glucose Ql (U) Normal mg/dl Normal [facility] Urine leukocyte esterase det ection by dipstickOrdered By: Dr. Bailey on 07-13-2022 Leukocyte esterase Test strip Ql (U) Negative Negative [facility] Urine pHOrdered By: Dr. Atul schmidt on 07-13-2022 pH (U) 8.0 [pH] 5.0 - 8.0 [facility] Urine sediment bacteria coun t by microscopy (number/high power field)Ordered By: Dr. Bailey on 07-13-2022 Bacteria LM.HPF (Urine sed) [#/Area] 0 /[HPF] None Seen [facility] Urine specific gravity measu rementOrdered By: Dr. Bailey on 07-13-2022 Specific gravity (U) [Rel density] 1.015 1.002-1.030 [facility] Urobilinogen Auto test strip Ql (U)Ordered By: Dr. Bailey on 07-13-2022 Urobilinogen Ql (U) Normal mg/dl Normal [facility] Absolute lymphocyte countOrd ered By: Dr. Bailey on 07-06-2022 Lymphocytes Auto (Unsp spec) [#/Vol] 2.47 10*3/uL 0.83-4.51 [facility] Basophil percentageOrdered B y: Dr. Bailey on 07-06-2022 Basophils/100 WBC (Bld) 0.5 % 0-1 [facility] Bilirubin [Mass/Vol] 0.30 mg/dL 0.20-1.00 [facility] Comment on above: For patients on eltr ombopag therapy, use of Dimension [place] TBIL is not recommended. Chloride [Moles/Vol] 103 mmol/L 98-107 [facility] Eosinophils/100 WBC (Bld) 2.5 % 0-5 [facility] Glucose [Mass/Vol] 108 mg/dL 74-106 [facility] Comment on above: Fasting Glucose resu lt from 100 to 125 mg/dL suggests IMPAIRED HOMEOSTASIS per A.D.A. criteria. Neutrophils (Bld) [#/Vol] 4.3 10*3/uL 2.0-7.7 [facility] Neutrophils/100 WBC (Bld) 54.5 % 47-70 [facility] Potassium [Moles/Vol] 3.3 mmol/L 3.5-5.1 [facility] Protein [Mass/Vol] 6.5 g/dL 6.4-8.2 [facility] Sodium [Moles/Vol] 138 mmol/L 136-145 [facility] WBC (Bld) [#/Vol] 7.9 10*3/uL 4.4-11.0 [facility] Blood erythrocytes count (nu mber/volume)Ordered By: Dr. Bailey on 07-06-2022 RBC (Bld) [#/Vol] 4.21 10*6/uL 4.2-5.4 [facility] Blood hemoglobin measurement (mass/volume)Ordered By: Dr. Bailey on 07-06-2022 Hemoglobin (Bld) [Mass/Vol] 13.6 g/dL 12.0-15.0 [facility] Blood lymphocytes/100 leukoc ytesOrdered By: Dr. Bailey on 07-06-2022 Lymphocytes/100 WBC (Bld) 31.5 % 19-41 [facility] Blood monocytes/100 leukocyt esOrdered By: Dr. Bailey on 07-06-2022 Monocytes/100 WBC (Bld) 10.6 % 0-10 [facility] Blood platelet mean volumeOr dered By: Dr. Bailey on 07-06-2022 Platelet mean volume (Bld) [Entitic vol] 9.6 fL 6.2-12.0 [facility] Determination of erythrocyte mean corpuscular volume (MCV)Ordered By: Dr. Bailey on 07-06-2022 MCV (RBC) [Entitic vol] 97.9 fL 81-99 [facility] Hematocrit Auto (Bld) [Volum e fraction]Ordered By: Dr. Bailey on 07-06-2022 Hematocrit (Bld) [Volume fraction] 41.2 % 37-47 [facility] - Chemistry and C hemistry - challengeOrdered By: Dr. Bailey on 07-06-2022 ALP [Catalytic activity/Vol] 70 U/L 45-117 [facility] ALT [Catalytic activity/Vol] 11 U/L 13-56 [facility] CO2 [Moles/Vol] 27.0 mmol/L 21.0-32.0 [facility] Cobalamin (Vitamin B12) [Mass/Vol] 448 pg/mL 211-911 [facility] Globulin (S) [Mass/Vol] 2.7 g/dL 2.2-4.2 [facility] Magnesium [Mass/Vol] 1.8 mg/dL 1.6-2.6 [facility] Urea nitrogen/Creatinine [Mass ratio] 16.4 mg/mg 10-20 [facility] - Hematology and Cell countsOrdered By: Dr. Bailey on 07-06-2022 Erythrocyte distribution width (RBC) [Entitic vol] 45.1 fL 35.1-43.9 [facility] Erythrocyte distribution width (RBC) [Ratio] 12.7 % 11.6-14.6 [facility] Immature granulocytes/100 WBC (Bld) 0.400 % 0.0-0.9 [facility] Comment on above: IG% - Immature Granu locytes (promyelocytes, myelocytes and metamyelocytes) > 1% indicates that a LEFT SHIFT is Present. MCH (RBC) [Entitic mass] 32.3 pg 27.0-32.0 [facility] Nucleated RBC/100 WBC (Bld) [Ratio] 0 % 0-5 [facility] MCHC Auto (RBC) [Mass/Vol]Or dered By: Dr. Bailey on 07-06-2022 MCHC (RBC) [Mass/Vol] 33.0 g/dL 32-36 [facility] No Panel InformationOrdered By: Dr. Bailey on 07-06-2022 Estimated GFR (MDRD) Amer 76 mL/min >60 [facility] Comment on above: GFR Calc Estimated GFR (MDRD) Non-Af Amer 63 mL/min >60 [facility] Comment on above: Non- GFR Calc Thyroid Stimulating Hormone (TSH) 1.51 uIU/mL 0.358-3.74 [facility] Platelets bldOrdered By: Dr. Bailey on 07-06-2022 Platelets (Bld) [#/Vol] 289 10*3/uL 150-450 [facility] Serum or plasma albumin anthony urement (mass/volume)Ordered By: Dr. Bailey on 07-06-2022 Albumin [Mass/Vol] 3.8 g/dL 3.2-5.0 [facility] Serum or plasma albumin/glob ulin mass ratioOrdered By: Dr. Bailey on 07-06-2022 Albumin/Globulin [Mass ratio] 1.4 {ratio} 0.9-2.4 [facility] Serum or plasma calcium anthony urement (mass/volume)Ordered By: Dr. Bailey on 07-06-2022 Calcium [Mass/Vol] 9.6 mg/dL 8.5-10.1 [facility] Serum or plasma creatinine m easurement (mass/volume)Ordered By: Dr. Bailey on 07-06-2022 Creatinine [Mass/Vol] 0.92 mg/dL 0.55-1.02 [facility] Comment on above: The validity of the calculated GFR & GFRAA in patients over 70 years has not been determined. Clinical correlation is essential. Serum or plasma ferritin abrahan surement (mass/volume)Ordered By: Dr. Bailey on 07-06-2022 Ferritin [Mass/Vol] 85 ng/mL 8-252 [facility] Serum or plasma folate measu rement (mass/volume)Ordered By: Dr. Bailey on 07-06-2022 Folate [Mass/Vol] 4.40 ng/mL 3.1-55.4 [facility] Serum or plasma urea nitroge n measurement (mass/volume)Ordered By: Dr. Bailey on 07-06-2022 Urea nitrogen [Mass/Vol] 15 mg/dL 7-18 [facility] Thin prep Papanicolaou smear with manual screeningOrdered By: Dr. Bailey on 07-06-2022 Thin prep Papanicolaou smear with manual screening 15 U/L 15-37 [facility] Thin prep Papanicolaou smear with manual screening 8 5-15 [facility] STREP A MOLECULAR (POC)on Procedural Control Valid [facility] Strep A (POCT) Negative Negative [facility] NM HEPATOBILIARY W EF AND/OR RXon 05-12-2022 [facility] No Panel Informationon 04-11 [facility] Absolute lymphocyte counton 03-03-2022 Lymphocytes Auto (Unsp spec) [#/Vol] 1.87 10*3/uL 0.83-4.51 [facility] Work Phone: Basophil percentageon 2021 Basophils/100 WBC (Bld) 0.6 % 0-1 [facility] Work Phone: Bilirubin [Mass/Vol] 0.30 mg/dL 0.20-1.00 [facility] Work Phone: Comment on above: For patients on eltr ombopag therapy, use of Dimension [place] TBIL is not recommended. Chloride [Moles/Vol] 101 mmol/L 98-107 [facility] Work Phone: Eosinophils/100 WBC (Bld) 7.4 % 0-5 [facility] Work Phone: Glucose [Mass/Vol] 100 mg/dL 74-106 [facility] Work Phone: Comment on above: Fasting Glucose resu lt from 100 to 125 mg/dL suggests IMPAIRED HOMEOSTASIS per A.D.A. criteria. Lactate [Moles/Vol] 0.5 mmol/L 0.4-2.0 [facility] Work Phone: Neutrophils (Bld) [#/Vol] 4.0 10*3/uL 2.0-7.7 [facility] Work Phone: Neutrophils/100 WBC (Bld) 56.1 % 47-70 [facility] Work Phone: Potassium [Moles/Vol] 3.6 mmol/L 3.5-5.1 [facility] Work Phone: Protein [Mass/Vol] 7.1 g/dL 6.4-8.2 [facility] Work Phone: Sodium [Moles/Vol] 138 mmol/L 136-145 [facility] Work Phone: WBC (Bld) [#/Vol] 7.2 10*3/uL 4.4-11.0 [facility] Work Phone: Blood erythrocytes count (nu mber/volume)on 03-03-2022 RBC (Bld) [#/Vol] 4.22 10*6/uL 4.2-5.4 [facility] Work Phone: Blood hemoglobin measurement (mass/volume)on 03-03-2022 Hemoglobin (Bld) [Mass/Vol] 13.8 g/dL 12.0-15.0 [facility] Work Phone: Blood lymphocytes/100 leukoc yteson 03-03-2022 Lymphocytes/100 WBC (Bld) 26.1 % 19-41 [facility] Work Phone: Blood monocytes/100 leukocyt eson 03-03-2022 Monocytes/100 WBC (Bld) 9.5 % 0-10 [facility] Work Phone: Blood platelet mean volumeon 03-03-2022 Platelet mean volume (Bld) [Entitic vol] 9.3 fL 6.2-12.0 [facility] Work Phone: Determination of erythrocyte mean corpuscular volume (MCV)on 03-03-2022 MCV (RBC) [Entitic vol] 99.5 fL 81-99 [facility] Work Phone: Hematocrit Auto (Bld) [Volum e fraction]on 03-03-2022 Hematocrit (Bld) [Volume fraction] 42.0 % 37-47 [facility] Work Phone: Laboratory - Chemistry and C hemistry - challengeon 03-03-2022 ALP [Catalytic activity/Vol] 65 U/L 45-117 [facility] Work Phone: ALT [Catalytic activity/Vol] 13 U/L 13-56 [facility] Work Phone: CO2 [Moles/Vol] 28.0 mmol/L 21.0-32.0 [facility] Work Phone: Globulin (S) [Mass/Vol] 3.2 g/dL 2.2-4.2 [facility] Work Phone: Lipase [Catalytic activity/Vol] 183 U/L 73-393 [facility] Work Phone: Urea nitrogen/Creatinine [Mass ratio] 22.4 mg/mg 10-20 [facility] Work Phone: Laboratory - Hematology and Cell countson 03-03-2022 Erythrocyte distribution width (RBC) [Entitic vol] 46.5 fL 35.1-43.9 [facility] Work Phone: Erythrocyte distribution width (RBC) [Ratio] 12.8 % 11.6-14.6 [facility] Work Phone: Immature granulocytes/100 WBC (Bld) 0.300 % 0.0-0.9 [facility] Work Phone: Comment on above: IG% - Immature Granu locytes (promyelocytes, myelocytes and metamyelocytes) > 1% indicates that a LEFT SHIFT is Present. MCH (RBC) [Entitic mass] 32.7 pg 27.0-32.0 [facility] Work Phone: Nucleated RBC/100 WBC (Bld) [Ratio] 0 % 0-5 [facility] Work Phone: MCHC Auto (RBC) [Mass/Vol]on 03-03-2022 MCHC (RBC) [Mass/Vol] 32.9 g/dL 32-36 [facility] Work Phone: No Panel Informationon 03-03 Estimated Creatinine Clearance Calc 40.09 ml/min [facility] Work Phone: Estimated GFR (MDRD) Amer 70 mL/min >60 [facility] Work Phone: Comment on above: GFR Calc Estimated GFR (MDRD) Non-Af Amer 58 mL/min >60 [facility] Work Phone: Comment on above: Non- GFR Calc Troponin I High Sensitivity 17 pg/mL 3.0-54.0 [facility] Work Phone: Comment on above: Please Note: New Kathy t Units and Gender Specific Reference Ranges. For more information see Policy Stat Procedure [place] High Sensitivity Troponin (TNIH) and attachments. Platelets bldon 03-03-2022 Platelets (Bld) [#/Vol] 286 10*3/uL 150-450 [facility] Work Phone: Serum or plasma albumin anthony urement (mass/volume)on 03-03-2022 Albumin [Mass/Vol] 3.9 g/dL 3.2-5.0 [facility] Work Phone: Serum or plasma albumin/glob ulin mass ratioon 03-03-2022 Albumin/Globulin [Mass ratio] 1.2 {ratio} 0.9-2.4 [facility] Work Phone: Serum or plasma calcium anthony urement (mass/volume)on 03-03-2022 Calcium [Mass/Vol] 9.5 mg/dL 8.5-10.1 [facility] Work Phone: Serum or plasma creatinine m easurement (mass/volume)on 03-03-2022 Creatinine [Mass/Vol] 0.98 mg/dL 0.55-1.02 [facility] Work Phone: Comment on above: The validity of the calculated GFR & GFRAA in patients over 70 years has not been determined. Clinical correlation is essential. Serum or plasma urea nitroge n measurement (mass/volume)on 03-03-2022 Urea nitrogen [Mass/Vol] 22 mg/dL 7-18 [facility] Work Phone: Thin prep Papanicolaou smear with manual screeningon 03-03-2022 Thin prep Papanicolaou smear with manual screening 14 U/L 15-37 [facility] Work Phone: Thin prep Papanicolaou smear with manual screening 9 5-15 [facility] Work Phone: Absolute lymphocyte counton 12-31-2021 Lymphocytes Auto (Unsp spec) [#/Vol] 1.24 10*3/uL 0.83-4.51 [facility] Work Phone: Basophil percentageon 2021 Basophils/100 WBC (Bld) 0.8 % 0-1 [facility] Work Phone: Bilirubin [Mass/Vol] 0.30 mg/dL 0.20-1.00 [facility] Work Phone: Comment on above: For patients on eltr ombopag therapy, use of Dimension [place] TBIL is not recommended. Chloride [Moles/Vol] 103 mmol/L 98-107 [facility] Work Phone: Eosinophils/100 WBC (Bld) 6.3 % 0-5 [facility] Work Phone: Glucose [Mass/Vol] 128 mg/dL 74-106 [facility] Work Phone: Comment on above: Fasting Glucose resu lt greater than or equal to 126 mg/dL suggests DIABETES MELLITUS per A.D.A. criteria. Neutrophils (Bld) [#/Vol] 3.9 10*3/uL 2.0-7.7 [facility] Work Phone: Neutrophils/100 WBC (Bld) 62.7 % 47-70 [facility] Work Phone: [phone] Potassium [Moles/Vol] 3.8 mmol/L 3.5-5.1 [facility] Work Phone: Protein [Mass/Vol] 7.0 g/dL 6.4-8.2 [facility] Work Phone: Sodium [Moles/Vol] 140 mmol/L 136-145 [facility] Work Phone: WBC (Bld) [#/Vol] 6.2 10*3/uL 4.4-11.0 [facility] Work Phone: [phone] Blood erythrocytes count (nu mber/volume)on 12-31-2021 RBC (Bld) [#/Vol] 4.14 10*6/uL 4.2-5.4 [facility]: Blood hemoglobin measurement (mass/volume)on 12-31-2021 Hemoglobin (Bld) [Mass/Vol] 13.1 g/dL 12.0-15.0 [facility] Work Phone: Blood lymphocytes/100 leukoc yteson 12-31-2021 Lymphocytes/100 WBC (Bld) 20.0 % 19-41 [facility] Work Phone: Blood monocytes/100 leukocyt eson 12-31-2021 Monocytes/100 WBC (Bld) 10.0 % 0-10 [facility] Work Phone: [phone] Blood platelet mean volumeon 12-31-2021 Platelet mean volume (Bld) [Entitic vol] 9.5 fL 6.2-12.0 [facility] Work Phone: Determination of erythrocyte mean corpuscular volume (MCV)on 12-31-2021 MCV (RBC) [Entitic vol] 100.0 fL 81-99 [facility] Work Phone: Erythrocyte sedimentation ra richard 12-31-2021 ESR (Bld) [Velocity] 6 mm/h 0-30 [facility] Work [facility]: Hematocrit Auto (Bld) [Volum e fraction]on 12-31-2021 Hematocrit (Bld) [Volume fraction] 41.4 % 37-47 [facility] Work Phone: Laboratory - Chemistry and C hemistry - challengeon 12-31-2021 ALP [Catalytic activity/Vol] 57 U/L 45-117 [facility] Work Phone: ALT [Catalytic activity/Vol] 13 U/L 13-56 [facility] Work Phone: CO2 [Moles/Vol] 29.0 mmol/L 21.0-32.0 [facility] Work Phone: Cobalamin (Vitamin B12) [Mass/Vol] 320 pg/mL 211-911 [facility] Work Phone: Globulin (S) [Mass/Vol] 3.1 g/dL 2.2-4.2 [facility] Work Phone: Urea nitrogen/Creatinine [Mass ratio] 20.6 mg/mg 10-20 [facility] Work Phone: Laboratory - Hematology and Cell countson 12-31-2021 Erythrocyte distribution width (RBC) [Entitic vol] 45.7 fL 35.1-43.9 [facility] Work Phone: Erythrocyte distribution width (RBC) [Ratio] 12.5 % 11.6-14.6 [facility] Work Phone: Immature granulocytes/100 WBC (Bld) 0.200 % 0.0-0.9 [facility] Work Phone: Comment on above: IG% - Immature Granu locytes (promyelocytes, myelocytes and metamyelocytes) > 1% indicates that a LEFT SHIFT is Present. MCH (RBC) [Entitic mass] 31.6 pg 27.0-32.0 [facility] Work Phone: Nucleated RBC/100 WBC (Bld) [Ratio] 0 % 0-5 [facility] Work Phone: MCHC Auto (RBC) [Mass/Vol]on 12-31-2021 MCHC (RBC) [Mass/Vol] 31.6 g/dL 32-36 [facility] Work Phone: No Panel Informationon 12-31 Estimated GFR (MDRD) Amer 67 mL/min >60 [facility] Work Phone: Comment on above: GFR Calc Estimated GFR (MDRD) Non-Af Amer 55 mL/min >60 [facility] Work Phone: Comment on above: Non- GFR Calc Thyroid Stimulating Hormone (TSH) 2.10 uIU/mL 0.358-3.74 [facility] Work Phone: Platelets bldon 12-31-2021 Platelets (Bld) [#/Vol] 327 10*3/uL 150-450 [facility] Work Phone: Serum or plasma albumin anthony urement (mass/volume)on 12-31-2021 Albumin [Mass/Vol] 3.9 g/dL 3.2-5.0 [facility] Work Phone: Serum or plasma albumin/glob ulin mass ratioon 12-31-2021 Albumin/Globulin [Mass ratio] 1.3 {ratio} 0.9-2.4 [facility] Work Phone: Serum or plasma calcium anthony urement (mass/volume)on 12-31-2021 Calcium [Mass/Vol] 10.0 mg/dL 8.5-10.1 [facility] Work Phone: Serum or plasma creatinine m easurement (mass/volume)on 12-31-2021 Creatinine [Mass/Vol] 1.02 mg/dL 0.55-1.02 [facility] Work Phone: Comment on above: The validity of the calculated GFR & GFRAA in patients over 70 years has not been determined. Clinical correlation is essential. Serum or plasma folate measu rement (mass/volume)on 12-31-2021 Folate [Mass/Vol] 9.20 ng/mL 3.1-55.4 [facility] Work Phone: Serum or plasma urea nitroge n measurement (mass/volume)on 12-31-2021 Urea nitrogen [Mass/Vol] 21 mg/dL 7-18 [facility] Work Phone: Thin prep Papanicolaou smear with manual screeningon 12-31-2021 Thin prep Papanicolaou smear with manual screening 17 U/L 15-37 [facility] Work Phone: Thin prep Papanicolaou smear with manual screening 8 5-15 [facility] Work Phone: XR HIP BILATERAL 5V PEL/AP/L AT EACH HIPon 11-17-2021 [facility] XR HIP BILAT 5V PEL/AP/LAT E ACH HIPon 01-21-2021 [facility] ANES POSTPROC EVALon 021 ANES POSTPROC EVAL HNO ID: [id number] Author: Uche Madden MD Service: Anesthesiology Author [...] December 22, 2020 TIME: 9:34 AM CSN: [id number] [facility] ANES PRE-OPon 12-22-2020 ANES PRE-OP HNO ID: [id number] Author: Uche Madden MD Service: Anesthesiology Author [...] (mg/dL) Date (more content not included)... [facility] HISTORY PHYSICALon 1 HISTORY PHYSICAL HNO ID: [id number] Author: Germán Chinchilla, DO Service: ? Author [...] edema noted Germán Chinchilla DO, IVONNE [facility] OPERATIVE NOon 12-22-2020 OPERATIVE NO HNO ID: [id number] Author: Germán Chinchilla DO Service: ? Author [...] equipment and personnel. LT side was marked [facility] approved time out was performed identifying the site, side and level of procedure prior to start of procedure. The patient was offered a procedure / surgery at a [facility] facility. Patient and I have discussed [...] as indicated on the consent form. [facility] [place] - ELECTIVE PROCEDURE Cooled Radio Frequency Ablation - Lumbar Lt side Sulfur Chloride Operator: Dr. Adrian Gan Pre Operative Diagnosis: Lumbar [...] side. LT SIDE Impedance on the Lt [id number] process (L2 nerve) was 350 L4 transverse [...] to 80 to 90 degrees (setting per Christian/ Anshu / Sydney White preset parameters) for [...] of the procedure. Germán Chinchilla DO, MBA [facility] HISTORY PHYSICALon HISTORY PHYSICAL HNO ID: [id number] Author: Tiff Plascencia PA-C Service: Orthopaedic Surgery Author Type: Physician Sulfur Chloride Operator Type: HANDP Filed: 12/15/2020 1:22 PM Note [...] December 15, 2020 TIME: 1:21 PM PAGER: [facility] OPERATIVE NOon 12-15-2020 OPERATIVE NO HNO ID: [id number] Author: Germán Chinchilla, DO Service: ? Author [...] offered a procedure / surgery at a [facility]. It is not possible to know either the risk of delaying the surgery or procedure or chance of getting an infection with perfect accuracy, but a joint decision was made between the patient and the surgeon/proceduralist to proceed at this time with the scheduled surgery/procedure as indicated on the consent form. [facility] approved time out was performed identifying the site, side and level of procedure prior to start of procedure. Lumbar Medial Branch Block Indications: Lumbar zygapophysial joint pain responsive to previous lumbar facet injection Sulfur Chloride Operator: Dr. Adrian Gan After a discussion of [...] of the procedure. Germán Chinchilla DO, MBA [facility] HISTORY PHYSICALon HISTORY PHYSICAL HNO ID: [id number] Author: JAXON Hewitt Service: ? Author Type: Physician Sulfur Chloride Operator Type: HANDP Filed: 10/29/2020 11:02 AM Note [...] October 29, 2020 TIME: 11:02 AM Normal [facility] OPERATIVE NOon 10-29-2020 OPERATIVE NO HNO ID: [id number] Author: Germán Chinchilla, DO Service: ? Author [...] offered a procedure / surgery at a [facility] facility. It is not possible to know either the risk of delaying the surgery or procedure or chance of getting an infection with perfect accuracy, but a joint decision was made between the patient and the surgeon/proceduralist to proceed at this time with the scheduled surgery/procedure as indicated on the consent form. [facility] approved time out was performed identifying the [...] the entire procedure. Germán Chinchilla DO, MBA [facility] HISTORY PHYSICALon HISTORY PHYSICAL HNO ID: [id number] Author: Tiff Sherman) Thais Service: Orthopaedic Surgery Author Type: Physician Sulfur Chloride Operator Type: HANDP Filed: 08/25/2020 11:40 AM Note [...] 25, 2020 TIME: 11:32 AM PAGER: Normal [facility] OPERATIVE NOon 08-25-2020 OPERATIVE NO HNO ID: [id number] Author: Germán Chinchilla Service: ? Author Type: [...] offered a procedure / surgery at a [facility]. It is not possible to know either the risk of delaying the surgery or procedure or chance of getting an infection with perfect accuracy, but a joint decision was made between the patient and the surgeon/proceduralist to proceed at this time with the scheduled surgery/procedure as indicated on the consent form. [facility] approved timeout was done before the start of the procedure. [facility] - ELECTIVE PROCEDURE Fluoroscopic Guided Lumbar Facet Joint Injection Indications: Lumbar spondylosis, Lt lower back pain, lumbar stenosis Sulfur Chloride Operator: Dr. Fer Coon The risks and benefits [...] of the procedure. Germán Chinchilla DO, MBA [facility] 07-31-2020 HOSP Patient:Sandie Ho MRN: Height:5' 6([id number] [...] the following basenames: K,HCT Progress Notes ([facility]): Parish Sheth 08/24/2020 2:25 PM Signed Pt ci to see whether or not she can eat before her procedure w/ Dr. Chinchilla tomorrow. Please advise, thank you. Shena Sharma LPN 08/24/2020 2:38 PM Signed Spoke to pt and advised it is ok to eat and drink due to a local numbing agent is used. Pt verbalized understanding Progress Notes ([facility]): Germán Chinchilla DO 07/31/2020 12:03 [...] supervised home exercise program (HEP): No 4. 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 NSAIDS: None 2. Prescription pain medication: Baclofen - last dose one month ago. Patient fell after taking so doesn't take anymore. 3. Acupuncture: No 4. Tens unit: No Litigation: No Workers' Compensation: No YELLOW AND BLUE FLAGS No-Neg Attit (more content not included)... Normal [facility] MRI LUMBAR SPINE WO IVCONon 06-04-2020 MRI LUMBAR SPINE WO IVCON * * *Final Rep ort* * * DATE OF EXAM: Jun 04 2020 8:18AM [facility] 0303 - MRI LUMBAR SPINE WO [...] Jun 04 2020 8:12A Dictated by: ANNY CSOTT MD This examination was interpreted and the report reviewed and electronically signed by: ANNY SCOTT MD on Jun 04 2020 8:46AM EST [id number] [facility] PROGRESSon 06-04-2020 PROGRESS HNO ID: [id number] Author: Genesis Dee (Tech) Service: Radiology Author Type: Slip Sheeter Type: Progress Notes Filed: 06/04/2020 7:33 AM [...] Dee June 04, 2020 7:32 AM Normal [facility] BD DXA - AXIAL SKELETONon BD DXA - AXIAL SKELETON * * *Final Repor t* * * DATE OF EXAM: May 11 2020 3:36PM [facility] 0804 - DXA - AXIAL SKELETON / PROCEDURE REASON: multiple diagnoses * * * * Physician Interpretation * * * * RESULT: BONE MINERAL DENSITY INDICATION: DEXA Spinal stenosis of lumbar region, unspecified whether neurogenic claudication present Closed compression fracture of thoracic vertebra, initial encounter ([facility]) COMPARISONS: TECHNICAL PARAMETERS: Bone mineral density was obtained using dual energy x-ray absorptiometry PATIENT DEMOGRAPHICS: SANDIE HO, [id number] Age: 79 years, Race: White, Gender: Female Referring: GIOVANNI SCHMITZ DXA Model: [employer] C ([id number] Site Scanned: [facility] Date Scanned: 05/11/2020 3:36 PM RESULT: [...] young adult (20 to 45 year old) [facility] female reference population. Z-score is standard deviations [...] on May 11 2020 5:17PM EST [id number] [facility] PROGRESSon 05-11-2020 PROGRESS HNO ID: [id number] Author: Genesis Lyles (Rt) Service: ? Author Type: Slip Sheeter Type: Progress Notes Filed: 05/11/2020 3:33 PM [...] RT Rafal May 11, 2020 3:32 PM [facility] XR HIP 3V PELV+ AP/LAT LTon 05-11-2020 [...] May 12 2020 2:06PM EST [id number] Normal [facility] CBC and Differentialon 04-12 Abs Baso 0.07 k/uL Normal <0.11 [facility] Comment on above: Performed By: #### C BCDIF, CMP, LIPA ####[facility] [address] [place] [phone] Abs Page 0.96 k/uL High <0.87 [facility] Comment on above: Performed By: #### C BCDIF, CMP, LIPA ####[facility] Ejweczlwos2274 [address]721-5160 Abs Neut 4.65 k/uL Normal 1.45-7.50 [facility] Comment on above: Performed By: #### C BCDIF, CMP, LIPA ####[facility] Uhccvwrllz1995 [address]721-5160 Basophils/100 WBC Auto (Bld) 0.9 % Normal [facility] Comment on above: Performed By: #### C BCDIF, CMP, LIPA ####[facility] Xxglzradnu1270 [address]721-5160 Eosinophils Auto #/vol (Bld) 0.52 10*3/uL High <0.46 [facility] Comment on above: Performed By: #### C BCDIF, CMP, LIPA ####[facility] [address] [place], [place] [phone] Eosinophils/100 WBC Auto (Bld) 6.8 % Normal [facility] Comment on above: Performed By: #### C BCDIF, CMP, LIPA ####[facility] F[address] [place], [place] [phone] Erythrocyte distribution width Auto Ratio (RBC) 12.6 % Normal 11.5-15.0 [facility] Comment on above: Performed By: #### C BCDIF, CMP, LIPA ####[facility] J[address] [place], [place] [phone] Hematocrit Auto Volume Fraction (Bld) 38.1 % Normal 36.0-46.0 [facility] Comment on above: Performed By: #### C BCDIF, CMP, LIPA ####[facility] [address] [place], [place] [address] Hemoglobin mass conc (Bld) 12.8 g/dL Normal 11.5-15.5 [facility] Comment on above: Performed By: #### C BCDIF, CMP, LIPA ####[facility] [address] [place], [place] [phone] Lymphocytes Auto #/vol (Bld) 1.40 10*3/uL Normal 1.00-4.00 [facility] Comment on above: Performed By: #### C BCDIF, CMP, LIPA ####[facility] [address] [place], [place] [phone] Lymphocytes/100 WBC Auto (Bld) 18.4 % Normal [facility] Comment on above: Performed By: #### C BCDIF, CMP, LIPA ####[facility] [address] [place] [address] MCH Auto Entitic mass (RBC) 31.9 pG Normal 26.0-34.0 [facility] Comment on above: Performed By: #### C BCDIF, CMP, LIPA ####[facility] [address] [place] [address] MCHC Auto mass conc (RBC) 33.6 g/dL Normal 30.5-36.0 [facility] Comment on above: Performed By: #### C BCDIF, CMP, LIPA ####[facility] [address] [place] [address] MCV Auto Entitic volume (RBC) 95.0 fL Normal 80.0-100.0 [facility] Comment on above: Performed By: #### C BCDIF, CMP, LIPA ####[place] [address] Monocytes/100 WBC Auto (Bld) 12.6 % Normal [facility] Comment on above: Performed By: #### C BCDIF, CMP, LIPA ####[facility] Q[address] [place] [address] Neutrophils/100 WBC Auto (Bld) 61.3 % Normal [facility] Comment on above: Performed By: #### C BCDIF, CMP, LIPA ####[facility] [address] [place] [address] Platelet mean volume Auto Entitic volume (Bld) 8.7 fL Low 9.0-12.7 [facility] Comment on above: Performed By: #### C BCDIF, CMP, LIPA ####[facility] [address] [place] [address] Platelets Auto #/vol (Bld) 294 10*3/uL Normal 150-400 [facility] Comment on above: Performed By: #### C BCDIF, CMP, LIPA ####[facility] [address] [place], [place] [phone] RBC Auto #/vol (Bld) 4.01 10*6/uL Normal 3.90-5.20 [facility] Comment on above: Performed By: #### C BCDIF, CMP, LIPA ####[facility] Cmrmgxjnub5079 [phone] WBC Auto #/vol (Bld) 7.60 10*3/uL Normal 3.70-11.00 [facility] Comment on above: Performed By: #### C BCDIF, CMP, LIPA ####[facility] Zfxgbvktia2060 [phone] CT ABD/PEL W IVCONon 018 CT ABD/PEL W IVCON * * *Final Report* * *DATE OF EXAM: Apr 12 2018 5:36PM [facility] 0530 - CT [...] BRITT MD on Apr 12 2018 6:12PM [id number] Normal [facility] Comp Metabolic Panelon 04-12 Albumin mass conc 4.3 g/dL Normal 3.9-4.9 [facility] Comment on above: Performed By: #### C BCDIF, CMP, LIPA ####[facility] [address] [place] [address] ALP enzyme act/vol 58 U/L Normal 34-123 [facility] Comment on above: Performed By: #### C BCDIF, CMP, LIPA ####[facility] [address] [place] [address] ALT enzyme act/vol 8 U/L Normal 7-38 [facility] Comment on above: Performed By: #### C BCDIF, CMP, LIPA ####[place] [address] Anion gap 3 molar conc 13 mmol/L Normal 9-18 [facility] Comment on above: Performed By: #### C BCDIF, CMP, LIPA ####[facility] [address] [place] [address] AST enzyme act/vol 17 U/L Normal 13-35 [facility] Comment on above: Performed By: #### C BCDIF, CMP, LIPA ####[place] [address] Bilirubin mass conc 0.2 mg/dL Normal 0.2-1.3 [facility] Comment on above: Performed By: #### C BCDIF, CMP, LIPA ####[facility] Hjnixx[address]ym6[address] [place] [phone] Calcium mass conc 9.0 mg/dL Normal 8.5-10.2 [facility] Comment on above: Performed By: #### C BCDIF, CMP, LIPA ####[facility] [address] [place] [address] Chloride molar conc 98 mmol/L Normal 97-105 [facility] Comment on above: Performed By: #### C BCDIF, CMP, LIPA ####[facility] T[address]fe[address] [place] [address] CO2 molar conc 25 mmol/L Normal 22-30 [facility] Comment on above: Performed By: #### C BCDIF, CMP, LIPA ####[facility] [address] [place] [address] Creatinine mass conc 0.75 mg/dL Normal 0.58-0.96 [facility] Comment on above: Performed By: #### C BCDIF, CMP, LIPA ####[facility] [address] [place] [address] eGFR- Amer. >60 Normal [facility] Comment on above: Performed By: #### C BCDIF, CMP, LIPA ####[facility] [address] [place] [address] GFR/1.73 sq M predicted among non-blacks MDRD vol rate/area (S/P/Bld) mL/min/{1.73_m2} Normal [facility] Comment on above: Result Comment: eGFR [...] Performed By: #### C BCDIF, CMP, LIPA ####[facility] [address] [place] [phone] Glucose mass conc 87 mg/dL Normal 74-99 [facility] Comment on above: Result Comment: The [place] Diabetes Association (ADA) provides guidance for cutoff [...] Standards of Medical Care in Diabetes 2016, [place] [employer]. Diabetes Care. 2016.39(Suppl 1). Performed By: #### C BCDIF, CMP, LIPA ####[facility] [address] [place] [address] Potassium molar conc 3.6 mmol/L Low 3.7-5.1 [facility] Comment on above: Performed By: #### C BCDIF, CMP, LIPA ####[facility] [address] [place] [address] Protein mass conc 6.7 g/dL Normal 6.3-8.0 [facility] Comment on above: Performed By: #### C BCDIF, CMP, LIPA ####[facility] [address] [place] [address] Sodium molar conc 136 mmol/L Normal 136-144 [facility] Comment on above: Performed By: #### C BCDIF, CMP, LIPA ####[facility] [address] [place] [address] Urea nitrogen mass conc 15 mg/dL Normal 7-21 M [facility] Comment on above: Performed By: #### C BCDIF, CMP, LIPA ####[facility] [address] [place] [address] ED NOTEon 04-12-2018 ED NOTE HNO ID: [id number]: Davina (Marielos) KIRSTEN Steinerervice: (none)Author Type: Registered NurseType: ED NotesFiled: 04/12/2018 6:38 PMNote Text: Patient in stable condition upon discharge. resp even and unlabored. Nodistress noted. Patient denies any complaints at this time. Discharge andfollow up reviewed, plan of care is agreed upon. Patient thankful for careupon discharge. [facility] ED NOTE HNO ID: [id number] Author: Davina TapiaRn) MARIELOS Steiner Service: (none) Author Type: Registered Nurse Type: ED Notes Filed: 04/12/2018 5:45 PM Note Text: Patient denies any pain at this time. [facility] ED NOTE HNO ID: [id number]: Yessy TapiaRn) KIRSTEN Brunsonervice: (none)Author Type: Registered NurseType: ED NotesFiled: 04/12/2018 4:03 PMNote Text:Patient presents with constipation for a week, has tried an enema with noresults. Had KUB done yesterday at [facility]. [facility] ED PROV NOTEon 04-12-2018 Protein mass conc HNO ID: [id number]: AUSTIN Weberervice: (none)Author Type: PhysicianType: ED Provider NotesFiled: 04/12/2018 9:37 PMNote Text:ED Provider NotePatient Name: Sandie Jensen MarsMRN: [id number] DATE: 04/12/18HistoryPatient presents with:Constipation: for over a [...] dysf, normal valves.- COLONOSCOP W/ OR W/O [facility] SPEC Colonoscopy- CYSTO.PANENDO Cystoscopy- KNEE SCOPE,DIAGNOSTIC 06/2010 Arthroscopy, knee- PAST SURGICAL HISTORY OF R THR x 3- PAST SURGICAL HISTORY OF Bilat TKR- PAST SURGICAL HISTORY OF L Hip pinning (later removed)- PAST SURGICAL HISTORY OF Heart Cath- PAST SURGICAL HISTORY OF Dilation of left ureter- PAST SURGICAL HISTORY OF 05/13 L knee revision- PAST SURGICAL HISTORY OF 2014 R THR - [place]- PAST SURGICAL HISTORY OF Right 07/2014 total hip replacementFAMILY HISTORYProblem Relation Age of Onset- Cancer Father- Coronary Artery Disease Father Early 70's CABG x5- Coronary Artery Disease Brother aged 52, [place]- Diabetes Brother Type II- No Family History [...] advise a follow-up with PCP.SIGNATURE: Toni Stewart MD04/12/185 Normal [facility] Lipaseon 04-12-2018 Lipase enzyme act/vol 28 U/L Normal 16-61 [facility] Comment on above: Performed By: #### C BCDIF, CMP, LIPA ####[facility] [address] [place] [address] CBC and Differentialon 11-30 Abs Baso 0.04 k/uL Normal <0.11 [facility] Comment on above: Performed By: #### C BCDIF, CMP, MG1 ####[place] [address] Abs Page 0.94 k/uL High <0.87 [facility] Comment on above: Performed By: #### C BCDIF, CMP, MG1 ####[place] [address] Abs Neut 4.68 k/uL Normal 1.45-7.50 [facility] Comment on above: Performed By: #### C BCDIF, CMP, MG1 ####[place] [address] Basophils/100 WBC Auto (Bld) 0.5 % Normal [facility] Comment on above: Performed By: #### C BCDIF, CMP, MG1 ####[place] [address] Eosinophils Auto #/vol (Bld) 0.46 10*3/uL High <0.46 [facility] Comment on above: Performed By: #### C BCDIF, CMP, MG1 ####[place] [address] Eosinophils/100 WBC Auto (Bld) 5.9 % Normal [facility] Comment on above: Performed By: #### C BCDIF, CMP, MG1 ####[place] [address] Erythrocyte distribution width Auto Ratio (RBC) 13.7 % Normal 11.5-15.0 [facility] Comment on above: Performed By: #### C BCDIF CMP, MG1 ####[place] [address] Hematocrit Auto Volume Fraction (Bld) 37.7 % Normal 36.0-46.0 [facility] Comment on above: Performed By: #### C BCDIF CMP, MG1 ####[place] [address] Hemoglobin mass conc (Bld) 12.4 g/dL Normal 11.5-15.5 [facility] Comment on above: Performed By: #### C BCRORYF CMP, MG1 ####[place] [address] Lymphocytes Auto #/vol (Bld) 1.64 10*3/uL Normal 1.00-4.00 [facility] Comment on above: Performed By: #### C BCDIF CMP, MG1 ####[place] [address] Lymphocytes/100 WBC Auto (Bld) 21.1 % Normal [facility] Comment on above: Performed By: #### C BCLEANNA CMP, MG1 ####[place] [address] MCH Auto Entitic mass (RBC) 32.2 pG Normal 26.0-34.0 [facility] Comment on above: Performed By: #### C BCDIF CMP, MG1 ####[place] [address] MCHC Auto mass conc (RBC) 32.9 g/dL Normal 30.5-36.0 [facility] Comment on above: Performed By: #### C BCDIF CMP, MG1 ####[place] [address] MCV Auto Entitic volume (RBC) 97.9 fL Normal 80.0-100.0 [facility] Comment on above: Performed By: #### C BCDIF, CMP, MG1 ####[facility] [address] [place] [address] Monocytes/100 WBC Auto (Bld) 12.1 % Normal [facility] Comment on above: Performed By: #### C BCDIF, CMP, MG1 ####[place] [address] Neutrophils/100 WBC Auto (Bld) 60.4 % Normal [facility] Comment on above: Performed By: #### C BCDIF, CMP, MG1 ####[place] [address] Platelet mean volume Auto Entitic volume (Bld) 9.1 fL Normal 9.0-12.7 [facility] Comment on above: Performed By: #### C BCDIF, CMP, MG1 ####[place] [address] Platelets Auto #/vol (Bld) 290 10*3/uL Normal 150-400 [facility] Comment on above: Performed By: #### C BCDIF, CMP, MG1 ####[place] [address] RBC Auto #/vol (Bld) 3.85 10*6/uL Low 3.90-5.20 [facility] Comment on above: Performed By: #### C BCDIF, CMP, MG1 ####[place] [address] WBC Auto #/vol (Bld) 7.76 10*3/uL Normal 3.70-11.00 [facility] Comment on above: Performed By: #### C BCDIF, CMP, MG1 ####[place] [address] CK, Total and CKMBon 05-31-2 018 CK enzyme act/vol 32 U/L Low 42-196 [facility] Comment on above: Performed By: #### C KCKMB ####[place] [address] CK MB % CK MB % not reported with CK <100 U/L. Normal 0.0-4.0 [facility] Comment on above: Performed By: #### C KCKMB ####[address] MB 2.0 ng/mL Normal <4.3 [facility] Comment on above: Performed By: #### C KCKMB ####[facility] [address] [place] [address] Comp Metabolic Panelon 11-30 Albumin mass conc 4.6 g/dL Normal 3.9-4.9 [facility] Comment on above: Performed By: #### C BCDIF, CMP, MG1 ####[facility] [address] [place] [address] ALP enzyme act/vol 63 U/L Normal 32-117 [facility] Comment on above: Performed By: #### C BCDIF, CMP, MG1 ####[facility] [address] [place] [address] ALT enzyme act/vol 10 U/L Normal 7-38 [facility] Comment on above: Performed By: #### C BCDIF, CMP, MG1 ####[facility] [address] [place] [address] Anion gap 3 molar conc 11 mmol/L Normal 9-18 [facility] Comment on above: Performed By: #### C BCDIF, CMP, MG1 ####[facility] [address] [place] [address] AST enzyme act/vol 15 U/L Normal 13-35 [facility] Comment on above: Performed By: #### C BCDIF, CMP, MG1 ####[facility] [address] [place] [address] Bilirubin mass conc 0.3 mg/dL Normal 0.2-1.3 [facility] Comment on above: Performed By: #### C BCDIF, CMP, MG1 ####[facility] [address] [place] [address] Calcium mass conc 9.1 mg/dL Normal 8.5-10.2 [facility] Comment on above: Performed By: #### C BCDIF, CMP, MG1 ####[facility] [address] [place] [address] Chloride molar conc 96 mmol/L Low 97-105 [facility] Comment on above: Performed By: #### C BCDIF, CMP, MG1 ####[facility] Gkzyspydqq0166 [address]5[address] CO2 molar conc 27 mmol/L Normal 22-30 [facility] Comment on above: Performed By: #### C BCDIFANEESH, MG1 ####[facility] Ufwddapgmi5009 [address] Creatinine mass conc 0.78 mg/dL Normal 0.58-0.96 [facility] Comment on above: Performed By: #### C BCDIFANEESH, MG1 ####[facility] [address] [place] [address] eGFR- Amer. >60 Normal [facility] Comment on above: Performed By: #### C ANEESH GARCIA, MG1 ####[facility] [address] [place] [address] GFR/1.73 sq M predicted among non-blacks MDRD vol rate/area (S/P/Bld) mL/min/{1.73_m2} Normal [facility] Comment on above: Result Comment: eGFR [...] GFR. Performed By: #### C BCDIFANEESH, MG1 ####[facility] Igemueifiu1524 [address] Glucose mass conc 106 mg/dL High 74-99 [facility] Comment on above: Result Comment: The [place] Diabetes Association (ADA) provides guidance for cutoff [...] Standards of Medical Care in Diabetes 2016, [place] Diabetes [employer]. Diabetes Care. 2016.39(Suppl 1). Performed By: #### C BCDIF, CMP, MG1 ####[facility] [address] [place] [address] Potassium molar conc 4.0 mmol/L Normal 3.7-5.1 [facility] Comment on above: Performed By: #### C BCDIF, CMP, MG1 ####[facility] [address] [place] [address] Protein mass conc 7.0 g/dL Normal 6.3-8.0 [facility] Comment on above: Performed By: #### C BCDIF, CMP, MG1 ####[facility] [address] [place] [address] Sodium molar conc 134 mmol/L Low 136-144 [facility] Comment on above: Performed By: #### C BCDIF, CMP, MG1 ####[facility] [address] [place] [address] Urea nitrogen mass conc 19 mg/dL Normal 7-21 M [facility] Comment on above: Performed By: #### C BCDIF, CMP, MG1 ####[facility] [id number] [place] [address] ED NOTEon 11-30-2017 ED NOTE HNO ID: [id number] Author: Anabel Pichardo) MARIELOS Fregoso Service: Nursing Author Type: Registered Nurse Type: ED Notes Filed: 11/30/2017 3:47 PM Note Text: Reviewed DC instructions with patient. No questions. Patient ambulated out on own with spouse. [facility] ED NOTE HNO ID: [id number] Author: Pat TapiaMedicIoana Watson Service: Emergency Medicine Author Type: Animal Care Assistant and Slip Sheeter Type: ED Notes Filed: 11/30/2017 2:20 PM Note Text: Labs were drawn and sent. [facility] ED NOTE HNO ID: [id number] Author: Anabel Pichardo) [place], RN Service: Nursing Author Type: Registered Nurse Type: ED Notes Filed: 11/30/2017 1:55 PM Note Text: Patient to Xray with tech. [facility] ED NOTE HNO ID: [id number]: Dana (Rn) KIRSTEN Snowervice: (none)Author Type: Registered NurseType: ED NotesFiled: 11/30/2017 1:28 PMNote Text:Pt presents with c/o left sided rib pain s/p fall 1 month ago. Pt statesdx with rib fx 1 week ago with worsening pain. [facility] ED PROV NOTEon 11-30-2017 Protein mass conc HNO ID: [id number]: Gen (Jaxon) Efraine: (none)Author Type: Physician AssistantType: ED Provider NotesFiled: 11/30/2017 3:40 PMNote Text:ED Provider NotePatient Name: Sandie HoMRN: [id number] DATE: 11/30/17HistoryPatient presents with:Musculoskeletal Rzskyre29 year old female with a past medical history of depression,osteoarthri tis, presents to the emergency department today with a chiefcomplaint of worsening left sided rib pain. Patient stated that she fellabout a month ago. She went to [place] when necessary had multiple CTscans that came [...] HISTORYProcedure Laterality Date- COLONOSCOP W/ OR W/O [facility] SPEC Colonoscopy- CYSTO.PANENDO Cystoscopy- KNEE SCOPE,DIAGNOSTIC 06/2010 Arthroscopy, knee- PAST SURGICAL HISTORY OF R THR x 3- PAST SURGICAL HISTORY OF Bilat TKR- PAST SURGICAL HISTORY OF L Hip pinning (later removed)- PAST SURGICAL HISTORY OF Heart Cath- PAST SURGICAL HISTORY OF Dilation of left ureter- PAST SURGICAL HISTORY OF 05/13 L knee revision- PAST SURGICAL HISTORY OF 2014 R THR - [place]- PAST SURGICAL HISTORY OF Right 07/2014 total hip replacementFAMILY HISTORYProblem Relation Age of Onset- Cancer Father- Coronary Artery Disease Father Early 70's CABG x5- Coronary Artery Disease Brother aged 52, [place]- Diabetes Brother Type II- No Family History [...] and in writing to patient(patient guardian / customer relations representative), who verbalized understanding.This note was partially generated using [email or web address] voice recognition system,and there may be some [...] time of disposition: stableSIGNATURE: Mathieu Jenkins (Jaxon) Hsskatlr45/31/18 1540 Normal [facility] Magnesiumon 11-30-2017 Magnesium mass conc 2.1 mg/dL Normal 1.7-2.3 [facility] Comment on above: Performed By: #### C BCDIF, CMP, MG1 ####[facility] [id number] [place] [id number] Troponin Ton 11-30-2017 Troponin T.cardiac mass conc ug/L Normal 0.000-0.029 [facility] Comment on above: Performed By: #### T NT ####[facility] [id number] [place] [id number] XR RIBS 4V HANG+UPPER/LOWER C HESTon 11-30-2017 [...] SANTOS MD on Nov 30 2017 2:34PM [id number] [facility] XR SHLDR >/=3V AP/ROLANDO AP/OTH R [...] SANTOS MD on Nov 30 2017 2:28PM [id number] [facility] Vital Signs Date Time Vital Sign Value Performing Clinician Facility 09-20-2024 15:39-0400 Body height 165.1 cm Franc Quezada MD Work Phone: [facility] 09-20-2024 15:33-0400 Body mass index (BMI) [Ratio] 19.1 kg/m2 Franc Quezada MD Work Phone: [facility] 09-20-2024 15:33-0400 Body weight 52.16 kg Franc Quezada MD Work Phone: [facility] 09-20-2024 15:33-0400 Diastolic blood pressure 69 mm[Hg] Franc Quezada MD Work Phone: [facility] 09-20-2024 15:33-0400 Heart rate 77 /min Franc Quezada MD Work Phone: [facility] 09-20-2024 15:33-0400 Respiratory rate 18 /min Franc Quezada MD Work Phone: [facility] 09-20-2024 15:33-0400 SaO2% (BldA) [Mass fraction] 95 % Franc Quezada MD Work Phone: [facility] 09-20-2024 15:33-0400 Systolic blood pressure 126 mm[Hg] Franc Quezada MD Work Phone: [facility] 08-28-2024 13:43-0500 Body height 165.1 cm Emmie Fontanez APRN.VALVE LAPPER Work Phone: [facility] 08-28-2024 13:43-0500 Body mass index (BMI) [Ratio] 18.64 kg/m2 Emmie Fontanez APRN.[employer]PER Work Phone: [facility] 08-28-2024 13:43-0500 Body temperature 98.6 [degF] Emmie Fontanez APRN.[employer]VE LAPPER Work Phone: [facility] 08-28-2024 13:43-0500 Body weight 50.8 kg Emmiemilan Fontanez SPINDLE REPAIRER.VALVE LAPPER Work Phone: [facility] 08-28-2024 13:43-0500 Diastolic blood pressure 67 mm[Hg] Emmie Brown SPINDLE REPAIRER.VALVE LAPPER Work Phone: [facility] 08-28-2024 13:43-0500 Heart rate 74 /min Emmie Brown SPINDLE REPAIRER.VALVE LAPPER Work Phone: [facility] 08-28-2024 13:43-0500 Respiratory rate 18 /min Emmie Brown SPINDLE REPAIRER.VALVE LAPPER Work Phone: [facility] 08-28-2024 13:43-0500 SaO2% (BldA) [Mass fraction] 97 % Emmie Fontanez SPINDLE REPAIRER.VALVE LAPPER Work Phone: [facility] 08-28-2024 13:43-0500 Systolic blood pressure 129 mm[Hg] Emmie Brown SPINDLE REPAIRER.VALVE LAPPER Work Phone: [facility] 08-15-2024 15:39-0500 Body height 165.1 cm Emmie Brown SPINDLE REPAIRER.VALVE LAPPER Work Phone: [facility] 08-15-2024 15:39-0500 Body mass index (BMI) [Ratio] 19.14 kg/m2 Emmie Brown SPINDLE REPAIRER.[employer] LAPPER Work Phone: [facility] 08-15-2024 15:39-0500 Body temperature 97.81 [degF] Emmie Brown SPINDLE REPAIRER.VAL[employer] LAPPER Work Phone: [facility] 08-15-2024 15:39-0500 Body weight 52.16 kg Emmie Brown SPINDLE REPAIRER.VALVE LAPPER Work Phone: [facility] 08-15-2024 15:39-0500 Diastolic blood pressure 76 mm[Hg] Emmie Brown SPINDLE REPAIRER.VAL[employer] LAPPER Work Phone: [facility] 08-15-2024 15:39-0500 Heart rate 70 /min Emmie Brown SPINDLE REPAIRER.VAL[employer] LAPPER Work Phone: [facility] 08-15-2024 15:39-0500 Respiratory rate 18 /min Emmie Fontanez SPINDLE REPAIRER.VALVE LAPPER Work Phone: [facility] 08-15-2024 15:39-0500 SaO2% (BldA) [Mass fraction] 96 % Emmie Fontanez SPINDLE REPAIRER.VAL[employer] LAPPER Work Phone: [facility] 08-15-2024 15:39-0500 Systolic blood pressure 129 mm[Hg] Emmie Fontanez SPINDLE REPAIRER.VALVE LAPPER Work Phone: [facility] 07-24-2024 14:59-0500 Body height 167.6 cm Emmie Fontanez SPINDLE REPAIRER.VALVE LAPPER Work Phone: [facility] Comment on above: verbal 07-24-2024 14:59-0500 Body mass index (BMI) [Ratio] 18.08 kg/m2 Emmie Fontanez APRN.[employer]PER Work Phone: [facility] 07-24-2024 14:59-0500 Body temperature 96.8 [degF] Emmie Fontanez SPINDLE REPAIRER.VALVE LAPPER Work Phone: [facility] Comment on above: Took temperature reading 2 times 07-24-2024 14:59-0500 Body weight 50.8 kg Emmie Fontanez APRN.[employer] LAPPER Work Phone: [facility] Comment on above: verbal 07-24-2024 14:59-0500 Diastolic blood pressure 64 mm[Hg] Emmie Fontanez APRN.[employer]VE LAPPER Work Phone: [facility] 07-24-2024 14:59-0500 Heart rate 72 /min Emmie Fontanez SPINDLE REPAIRER.VALVE LAPPER Work Phone: [facility] 07-24-2024 14:59-0500 Respiratory rate 18 /min Emmie Fontanez SPINDLE REPAIRER.VALVE LAPPER Work Phone: [facility] 07-24-2024 14:59-0500 SaO2% (BldA) [Mass fraction] 96 % Emmie Fontanez SPINDLE REPAIRER.VALVE LAPPER Work Phone: [facility] 07-24-2024 14:59-0500 Systolic blood pressure 131 mm[Hg] Emmie Fontanez VALVE LAPPER Work Phone: [facility] 07-02-2024 09:30-0500 Body temperature 97 [degF] Franc Quezada MD Work Phone: [facility] 07-02-2024 09:30-0500 Diastolic blood pressure 50 mm[Hg] Franc Quezada MD Work Phone: [facility] 07-02-2024 09:30-0500 Heart rate 65 /min Franc Quezada MD Work Phone: [facility] 07-02-2024 09:30-0500 Respiratory rate 16 /min Franc Quezada MD Work Phone: [facility] 07-02-2024 09:30-0500 SaO2% (BldA) [Mass fraction] 94 % Franc Quezada MD Work Phone: [facility] 07-02-2024 09:30-0500 Systolic blood pressure 127 mm[Hg] Franc Quezada MD Work Phone: [facility] 06-28-2024 12:51-0500 Body mass index (BMI) [Ratio] 19.3 kg/m2 Franc Quezada MD Work Phone: [facility] 06-28-2024 12:51-0500 Body weight 52.61 kg Franc Quezada MD Work Phone: [facility] 06-28-2024 12:51-0500 Diastolic blood pressure 74 mm[Hg] Franc Quezada MD Work Phone: [facility] 06-28-2024 12:51-0500 Heart rate 64 /min Franc Quezada MD Work Phone: [facility] 06-28-2024 12:51-0500 Respiratory rate 18 /min Franc Quezada MD Work Phone: [facility] 06-28-2024 12:51-0500 SaO2% (BldA) [Mass fraction] 95 % Franc Quezada MD Work Phone: [facility] 06-28-2024 12:51-0500 Systolic blood pressure 121 mm[Hg] Franc Quezada MD Work Phone: [facility] 06-28-2024 11:44-0500 Body weight 54.15 kg Franc Quezada MD Work Phone: [facility] 06-25-2024 08:00-0500 Body mass index (BMI) [Ratio] 19.8 kg/m2 Franc Quezada MD Work Phone: [facility] 06-24-2024 10:55-0500 Body temperature 98.2 [degF] Franc Quezada MD Work Phone: [facility] 06-24-2024 10:55-0500 Diastolic blood pressure 45 mm[Hg] Franc Quezada MD Work Phone: [facility] 06-24-2024 10:55-0500 Heart rate 65 /min Franc Quezada MD Work Phone: [facility] 06-24-2024 10:55-0500 Respiratory rate 16 /min Franc Quezada MD Work Phone: [facility] 06-24-2024 10:55-0500 SaO2% (BldA) [Mass fraction] 94 % Franc Quezada MD Work Phone: [facility] 06-24-2024 10:55-0500 Systolic blood pressure 108 mm[Hg] Franc Quezada MD Work Phone: [facility] 06-24-2024 09:34-0500 Body mass index (BMI) [Ratio] 19.3 kg/m2 Franc Quezada MD Work Phone: [facility] 06-24-2024 09:34-0500 Body weight 52.61 kg Franc Quezada MD Work Phone: [facility] 06-19-2024 14:00-0500 Body temperature 97.6 [degF] Franc Quezada MD Work Phone: [facility] 06-19-2024 14:00-0500 Diastolic blood pressure 56 mm[Hg] Franc Quezada MD Work Phone: [facility] 06-19-2024 14:00-0500 Heart rate 60 /min Franc Quezada MD Work Phone: [facility] 06-19-2024 14:00-0500 Respiratory rate 14 /min Franc Quezada MD Work Phone: [facility] 06-19-2024 14:00-0500 SaO2% (BldA) [Mass fraction] 94 % Franc Quezada MD Work Phone: [facility] 06-19-2024 14:00-0500 Systolic blood pressure 130 mm[Hg] Franc Quezada MD Work Phone: [facility] 06-17-2024 16:34-0500 Body mass index (BMI) [Ratio] 19.3 kg/m2 Franc Quezada MD Work Phone: [facility] 06-17-2024 16:34-0500 Body weight 52.61 kg Franc Quezada MD Work Phone: [facility] 06-17-2024 00:24-0500 Body temperature 98.1 [degF] Franc Quezada MD Work Phone: [facility] 06-17-2024 00:24-0500 Diastolic blood pressure 76 mm[Hg] Franc Quezada MD Work Phone: [facility] 06-17-2024 00:24-0500 Heart rate 65 /min Franc Quezada MD Work Phone: [facility] 06-17-2024 00:24-0500 Respiratory rate 16 /min Franc Quezada MD Work Phone: [facility] 06-17-2024 00:24-0500 SaO2% (BldA) [Mass fraction] 97 % Franc Quezada MD Work Phone: [facility] 06-17-2024 00:24-0500 Systolic blood pressure 127 mm[Hg] Franc Quezada MD Work Phone: [facility] 06-16-2024 23:03-0500 Body mass index (BMI) [Ratio] 20.1 kg/m2 Franc Quezada MD Work Phone: [facility] 06-16-2024 23:03-0500 Body weight 54.9 kg Franc Quezada MD Work Phone: [facility] 06-10-2024 10:20-0500 Body weight 51.7 kg Franc Quezada MD Work Phone: [facility] 06-07-2024 10:00-0500 Body mass index (BMI) [Ratio] 18.9 kg/m2 Franc Quezada MD Work Phone: [facility] 05-24-2024 14:15-0500 Body height 157.5 cm Sara Mclaughlin MD Work Phone: [facility] 05-24-2024 14:15-0500 Body mass index (BMI) [Ratio] 20.85 kg/m2 Sara Mclaughlin MD Work Phone: [facility] 05-24-2024 14:15-0500 Body temperature 97.7 [degF] Sara Mclaughlin MD Work Phone: [facility] 05-24-2024 14:15-0500 Body weight 51.71 kg Sara Mclaughlin MD Work Phone: [facility] 05-24-2024 14:15-0500 Diastolic blood pressure 67 mm[Hg] Sara Mclaughlin MD Work Phone: [facility] 05-24-2024 14:15-0500 Heart rate 66 /min Sara Mclaughlin MD Work Phone: [facility] 05-24-2024 14:15-0500 SaO2% (BldA) [Mass fraction] 98 % Sara Mclaughlin MD Work Phone: [facility] 05-24-2024 14:15-0500 Systolic blood pressure 116 mm[Hg] Sara Mclaughlin MD Work Phone: [facility] 03-28-2024 12:55-0400 Body mass index (BMI) [Ratio] 18.64 kg/m2 Radha Calderon MD Work Phone: [facility] 03-28-2024 12:55-0400 Body weight 50.8 kg Radha Calderon MD Work Phone: 8(414)484-270407 [place] [address] 03-28-2024 12:55-0400 Diastolic blood pressure 84 mm[Hg] Radha Calderon MD Work Phone: 1(409)978-655607 [place] [address] 03-28-2024 12:55-0400 Heart rate 110 /min Radha Calderon MD Work Phone: 1(281)460-675407 [place] [address] 03-28-2024 12:55-0400 Respiratory rate 16 /min Radha Calderon MD Work Phone: 0(993)335-287807 [place] [address] 03-28-2024 12:55-0400 SaO2% (BldA) [Mass fraction] 97 % Radha Calderon MD Work Phone: [facility] 03-28-2024 12:55-0400 Systolic blood pressure 136 mm[Hg] Radha Calderon MD Work Phone: [facility] 02-22-2024 10:37-0400 Body mass index (BMI) [Ratio] 18.64 kg/m2 Radha Calderon MD Work Phone: 6(369)345-624307 [place] [address] 02-22-2024 10:37-0400 Body weight 50.8 kg Radha Calderon MD Work Phone: 5(698)939-894634 [place] [address] 02-22-2024 10:37-0400 Diastolic blood pressure 86 mm[Hg] Radha Calderon MD Work Phone: 6(468)967-197834 [place] [address] 02-22-2024 10:37-0400 Heart rate 80 /min Radha Calderon MD Work Phone: [facility] 02-22-2024 10:37-0400 Respiratory rate 20 /min Radha Calderon MD Work Phone: [facility] 02-22-2024 10:37-0400 SaO2% (BldA) [Mass fraction] 97 % Radha Calderon MD Work Phone: [facility] 02-22-2024 10:37-0400 Systolic blood pressure 152 mm[Hg] Radha Calderon MD Work Phone: [facility] 12-25-2023 12:55-0400 Diastolic blood pressure 70 mm[Hg] [address] 12-25-2023 12:55-0400 Heart rate 68 /min [address] 12-25-2023 12:55-0400 Respiratory rate 18 /min [address] 12-25-2023 12:55-0400 SaO2% (BldA) [Mass fraction] 95 % [address] 12-25-2023 12:55-0400 Systolic blood pressure 154 mm[Hg] [address] 12-25-2023 11:15-0400 Body height 165.[address] 12-25-2023 11:15-0400 Body mass index (BMI) [Ratio] 17.83 kg/m2 [address] 12-25-2023 11:15-0400 Body temperature 98.49 [degF] [address] 12-25-2023 11:15-0400 Body weight 48.[address] 12-14-2023 11:46-0400 Body height 165.1 cm Juju Hamm DO Work Phone: [facility] 12-14-2023 11:46-0400 Body mass index (BMI) [Ratio] 17.47 kg/m2 Juju Thomae DO Work Phone: [facility] 12-14-2023 11:46-0400 Body weight 47.63 kg Juju Thomae DO Work Phone: [facility] 08-18-2023 09:32-0500 Body mass index (BMI) [Ratio] 18.8 kg/m2 Tia Anglin MD MPH Work Phone: [facility] 08-18-2023 09:32-0500 Body weight 51.26 kg Tia Anglin MD MPH Work Phone: [facility] 08-18-2023 09:32-0500 Diastolic blood pressure 79 mm[Hg] Tia Anglin MD MPH Work Phone: [facility] 08-18-2023 09:32-0500 Systolic blood pressure 158 mm[Hg] Tia Anglin MD MPH Work Phone: [facility] 07-20-2023 14:32-0500 Body height 165.1 cm Tia Anglin MD MPH Work Phone: [facility] 07-20-2023 14:32-0500 Body mass index (BMI) [Ratio] 18.42 kg/m2 Tia Anglin MD MPH Work Phone: [facility] 07-20-2023 14:32-0500 Body weight 50.21 kg Tia Anglin MD MPH Work Phone: [facility] 07-20-2023 14:32-0500 Diastolic blood pressure 74 mm[Hg] Tia Anglin MD MPH Work Phone: [facility] 07-20-2023 14:32-0500 Heart rate 57 /min Tia Anglin MD MPH Work Phone: [facility] 07-20-2023 14:32-0500 Systolic blood pressure 115 mm[Hg] Tia Anglin MD MPH Work Phone: [facility] 07-11-2023 09:10-0500 Body height 165.1 cm Juju Hamm DO Work Phone: [facility] 07-11-2023 09:10-0500 Body mass index (BMI) [Ratio] 18.47 kg/m2 Juju Hamm DO Work Phone: [facility] 07-11-2023 09:10-0500 Body weight 50.35 kg Juju Hamm DO Work Phone: [facility] 06-28-2023 20:20-0500 Body height 165.[address] Sergio Bailey Work Phone: [facility] 06-28-2023 20:20-0500 Body temperature 97.6 [degF] Dr. Sergio Bailey Work Phone: [facility] 06-28-2023 20:20-0500 Diastolic blood pressure 61 mm[Hg] Dr. Sergio Bailey Work Phone: [facility] 06-28-2023 20:20-0500 Heart rate 63 /min Dr. Sergio Bailey Work Phone: [facility] 06-28-2023 20:20-0500 Respiratory rate 18 /min Dr. Sergio Bailey Work Phone: [facility] 06-28-2023 20:20-0500 SaO2% (BldA) [Mass fraction] 95 % Dr. Sergio Bailey Work Phone: [facility] 06-28-2023 20:20-0500 Systolic blood pressure 151 mm[Hg] Dr. Sergio Bailey Work Phone: [facility] 06-26-2023 14:11-0500 Body temperature 98 [degF] Dr. Sergio Bailey Work Phone: [facility] 06-26-2023 14:11-0500 Diastolic blood pressure 66 mm[Hg] Dr. Sergio Bailey Work Phone: [facility] 06-26-2023 14:11-0500 Heart rate 67 /min Dr. Sergio Bailey Work Phone: [facility] 06-26-2023 14:11-0500 Respiratory rate 16 /min Dr. Sergio Bailey Work Phone: [facility] 06-26-2023 14:11-0500 SaO2% (BldA) [Mass fraction] 94 % Dr. Sergio Bailey Work Phone: [facility] 06-26-2023 14:11-0500 Systolic blood pressure 108 mm[Hg] Dr. Sergio Bailey Work Phone: [facility] 06-26-2023 05:49-0500 Body mass index (BMI) [Ratio] 20.2 kg/m2 Dr. Sergio Bailey Work Phone: [facility] 06-26-2023 05:49-0500 Body weight 55.[address] Sergio Bailey Work Phone: [facility] 06-23-2023 06:38-0500 Inhaled oxygen flow rate 2 L/min Dr. Sergio Bailey Work Phone: [facility] 06-19-2023 14:28-0500 Body height 165.1 cm Juju Hamm DO Work Phone: [facility] 06-19-2023 14:28-0500 Body mass index (BMI) [Ratio] 18.47 kg/m2 Juju Hansel COWAN Work Phone: [facility] 06-19-2023 14:28-0500 Body weight 50.35 kg Juju Hamm DO Work Phone: [facility] 06-06-2023 13:37-0500 Body temperature 97.5 [degF] Dr. Sergio Bailey Work Phone: [facility] 06-06-2023 13:37-0500 Body weight 51.[address] Sergio Bailey Work Phone: [facility] 06-06-2023 13:37-0500 Diastolic blood pressure 80 mm[Hg] Dr. Sergio Bailey Work Phone: [facility] 06-06-2023 13:37-0500 Heart rate 87 /min Dr. Sergio Bailey Work Phone: [facility] 06-06-2023 13:37-0500 Respiratory rate 16 /min Dr. Sergio Bailey Work Phone: [facility] 06-06-2023 13:37-0500 SaO2% (BldA) [Mass fraction] 94 % Dr. Sergio Bailey Work Phone: [facility] 06-06-2023 13:37-0500 Systolic blood pressure 140 mm[Hg] Dr. Sergio Bailey Work Phone: [facility] 04-21-2023 16:21-0400 Body height 165.1 cm Sangeeta Sim MD Work Phone: [facility] 04-21-2023 16:21-0400 Body temperature 98.6 [degF] Sangeeta Sim MD Work Phone: [facility] 04-21-2023 16:21-0400 Body weight 52.8 kg Sangeeta Sim MD Work Phone: [facility] 04-21-2023 16:21-0400 Diastolic blood pressure 88 mm[Hg] Sangeeta Sim MD Work Phone: [facility] 04-21-2023 16:21-0400 Heart rate 94 /min Sangeeta Sim MD Work Phone: [facility] 04-21-2023 16:21-0400 SaO2% (BldA) [Mass fraction] 96 % Sangeeta Sim MD Work Phone: [facility] 04-21-2023 16:21-0400 Systolic blood pressure 102 mm[Hg] Sangeeta Sim MD Work Phone: [facility] 02-14-2023 22:27-0400 Diastolic blood pressure 79 mm[Hg] Dr. Sergio Bailey Work Phone: [facility] 02-14-2023 22:27-0400 Heart rate 78 /min Dr. Sergio Bailey Work Phone: [facility] 02-14-2023 22:27-0400 Respiratory rate 18 /min Dr. Sergio Bailey Work Phone: [facility] 02-14-2023 22:27-0400 SaO2% (BldA) [Mass fraction] 95 % Dr. Sergio Bailey Work Phone: [facility] 02-14-2023 22:27-0400 Systolic blood pressure 118 mm[Hg] Dr. Sergio Bailey Work Phone: [facility] 02-14-2023 17:54-0400 Body mass index (BMI) [Ratio] 19.5 kg/m2 Dr. Sergio Bailey Work Phone: [facility] 02-14-2023 17:54-0400 Body weight 53.[address] Sergio Bailey Work Phone: 2(552)307-682259 [address] 02-14-2023 16:38-0400 Body height 165.[address] Sergio Bailey Work Phone: 9(196)253-292159 [address] 02-14-2023 16:38-0400 Body temperature 97.1 [degF] Dr. Sergio Bailey Work Phone: 3(888)719-989359 [address] 02-13-2023 15:15-0400 Diastolic blood pressure 60 mm[Hg] Dr. Sergio Bailey Work Phone: 8(675)104-915459 [address] 02-13-2023 15:15-0400 Respiratory rate 18 /min Dr. Sergio Bailey Work Phone: [facility] 02-13-2023 15:15-0400 SaO2% (BldA) [Mass fraction] 97 % Dr. Sergio Bailey Work Phone: [facility] 02-13-2023 15:15-0400 Systolic blood pressure 165 mm[Hg] Dr. Sergio Bailey Work Phone: [facility] 02-13-2023 11:24-0400 Body height 165.[address] Sergio Bailey Work Phone: [facility] 02-13-2023 11:24-0400 Body mass index (BMI) [Ratio] 19.4 kg/m2 Dr. Sergio Bailey Work Phone: [facility] 02-13-2023 11:24-0400 Body temperature 97.8 [degF] Dr. Sergio Bailey Work Phone: [facility] 02-13-2023 11:24-0400 Body weight [address] Sergio Bailey Work Phone: 5(368)971-604331 [place] [address] 02-13-2023 11:24-0400 Heart rate 65 /min Dr. Sergio Bailey Work Phone: 1(328)895-677759 [address] 01-27-2023 10:08-0400 Diastolic blood pressure 59 mm[Hg] Dr. Sergio Bailey Work Phone: 1(834)460-623945 [place] [address] 01-27-2023 10:08-0400 Heart rate 70 /min Dr. Sergio Bailey Work Phone: 6(506)675-693845 [place] [address] 01-27-2023 10:08-0400 Systolic blood pressure 114 mm[Hg] Dr. Sergio Bailey Work Phone: 4(316)258-179959 [address] 01-27-2023 09:52-0400 Body temperature 97.5 [degF] Dr. Sergio Bailey Work Phone: 6(274)077-626559 [address] 01-27-2023 09:52-0400 Respiratory rate 16 /min Dr. Sergio Bailey Work Phone: 3(334)523-903659 [address] 01-27-2023 09:52-0400 SaO2% (BldA) [Mass fraction] 100 % Dr. Sergio Bailey Work Phone: 3(161)546-962731 [place] [address] 01-27-2023 06:00-0400 Body mass index (BMI) [Ratio] 18.1 kg/m2 Dr. Sergio Bailey Work Phone: 3(491)859-236059 [address] 01-27-2023 06:00-0400 Body weight 49.[address] Sergio Bailey Work Phone: 8(098)271-086231 [place] [address] 01-26-2023 09:01-0400 Inhaled oxygen flow rate 2 L/min Dr. Sergio Bailey Work Phone: 9(379)679-180931 [place] [address] 01-25-2023 22:30-0400 Body temperature 98.1 [degF] [facility] 01-25-2023 22:30-0400 Diastolic blood pressure 78 mm[Hg] [facility] 01-25-2023 22:30-0400 Heart rate 81 /min [facility] 01-25-2023 22:30-0400 Respiratory rate 17 /min [facility] 01-25-2023 22:30-0400 SaO2% (BldA) [Mass fraction] 96 % [facility] 01-25-2023 22:30-0400 Systolic blood pressure 142 mm[Hg] [facility] 01-25-2023 15:49-0400 Body mass index (BMI) [Ratio] 18 kg/m2 [facility] 01-25-2023 15:49-0400 Body weight 50.8 kg [facility] 01-25-2023 15:38-0400 Body height 167.64 cm [facility] 06-17-2022 12:11-0500 Body temperature 96.21 [degF] García Pendlebury SPINDLE REPAIRER.VALVE LAPPER Work Phone: [facility] 06-17-2022 12:11-0500 Body weight 54.98 kg García Pendlebury SPINDLE REPAIRER.VALVE LAPPER Work Phone: [facility] 06-17-2022 12:11-0500 Diastolic blood pressure 76 mm[Hg] García Pendlebury SPINDLE REPAIRER.VALVE LAPPER Work Phone: [facility] 06-17-2022 12:11-0500 Heart rate 71 /min García Pendlebury SPINDLE REPAIRER.VALVE LAPPER Work Phone: [facility] 06-17-2022 12:11-0500 Respiratory rate 18 /min García Pendlebury SPINDLE REPAIRER.VALVE LAPPER Work Phone: [facility] 06-17-2022 12:11-0500 SaO2% (BldA) [Mass fraction] 98 % García Pendlejazzy SPINDLE REPAIRER.VALVE LAPPER Work Phone: [facility] 06-17-2022 12:11-0500 Systolic blood pressure 122 mm[Hg] García Pendlebury SPINDLE REPAIRER.VALVE LAPPER Work Phone: [facility] 06-16-2022 11:51-0500 Body temperature 97.3 [degF] Sofia Denbow PA-C Work Phone: [facility] 06-16-2022 11:51-0500 Body weight 54.8 kg Sofia Denbow PA-C Work Phone: [facility] 06-16-2022 11:51-0500 Diastolic blood pressure 78 mm[Hg] Sofia Denbow PA-C Work Phone: [facility] 06-16-2022 11:51-0500 Heart rate 92 /min Sofia Denbow PA-C Work Phone: [facility] 06-16-2022 11:51-0500 Respiratory rate 18 /min Sofia Denbow PA-C Work Phone: [facility] 06-16-2022 11:51-0500 SaO2% (BldA) [Mass fraction] 96 % Sofia Denbow PA-C Work Phone: [facility] 06-16-2022 11:51-0500 Systolic blood pressure 126 mm[Hg] Sofia Denbow PA-C Work Phone: [facility] 05-09-2022 08:04-0500 Body weight 55.34 kg Ian Holley PA-C Work Phone: [facility] 04-21-2022 19:27-0400 Diastolic blood pressure 71 mm[Hg] [facility] 04-21-2022 19:27-0400 Heart rate 73 /min [facility] 04-21-2022 19:27-0400 Respiratory rate 18 /min [facility] 04-21-2022 19:27-0400 SaO2% (BldA) [Mass fraction] 93 % [facility] 04-21-2022 19:27-0400 Systolic blood pressure 166 mm[Hg] [facility] 04-21-2022 15:49-0400 Body height 167.64 cm [facility] 04-21-2022 15:49-0400 Body mass index (BMI) [Ratio] 20.1 kg/m2 [facility] 04-21-2022 15:49-0400 Body temperature 97.2 [degF] [facility] 04-21-2022 15:49-0400 Body weight 56.69 kg [facility] 03-07-2022 04:02-0400 Diastolic blood pressure 71 mm[Hg] [facility] Work Phone: 03-07-2022 04:02-0400 Heart rate 88 /min [facility] Work Phone: 03-07-2022 04:02-0400 Respiratory rate 18 /min [facility] Work Phone: 03-07-2022 04:02-0400 SaO2% (BldA) [Mass fraction] 96 % [facility] Work Phone: 03-07-2022 04:02-0400 Systolic blood pressure 144 mm[Hg] [facility] Work Phone: 03-07-2022 00:54-0400 Body mass index (BMI) [Ratio] 20 kg/m2 [facility] Work Phone: 03-07-2022 00:54-0400 Body temperature 98.1 [degF] [facility] Work Phone: 03-07-2022 00:54-0400 Body weight 56.2 kg [facility] Work Phone: 03-03-2022 21:41-0400 Diastolic blood pressure 62 mm[Hg] [facility] Work Phone: 03-03-2022 21:41-0400 Heart rate 91 /min [facility] Work Phone: 03-03-2022 21:41-0400 Respiratory rate 17 /min [facility] Work Phone: 03-03-2022 21:41-0400 SaO2% (BldA) [Mass fraction] 99 % [facility] Work Phone: 03-03-2022 21:41-0400 Systolic blood pressure 91 mm[Hg] [facility] Work Phone: 03-03-2022 16:31-0400 Body height 165.1 cm [facility] Work Phone: 03-03-2022 16:31-0400 Body mass index (BMI) [Ratio] 20.7 kg/m2 [facility] Work Phone: 03-03-2022 16:31-0400 Body temperature 97.7 [degF] [facility] Work Phone: 03-03-2022 16:31-0400 Body weight 56.4 kg [facility] Work Phone: 02-21-2022 09:53-0400 Body height 167.6 cm David Devin PA-C Work Phone: [facility] 02-21-2022 09:53-0400 Body temperature 97.3 [degF] David Devin PA-C Work Phone: [facility] 02-21-2022 09:53-0400 Body weight 56.25 kg David Devin PA-C Work Phone: [facility] 02-21-2022 09:53-0400 Diastolic blood pressure 84 mm[Hg] David Mabie PA-C Work Phone: [facility] 02-21-2022 09:53-0400 Heart rate 96 /min David Mabie PA-C Work Phone: [facility] 02-21-2022 09:53-0400 Respiratory rate 14 /min David Devin PA-C Work Phone: [facility] 02-21-2022 09:53-0400 SaO2% (BldA) [Mass fraction] 95 % David Mabie PA-C Work Phone: [facility] 02-21-2022 09:53-0400 Systolic blood pressure 120 mm[Hg] David Mabie PA-C Work Phone: [facility] 11-17-2021 11: Body height 167.6 cm Ian Holley PA-C Work Phone: [facility] 11-17-2021 11: Body weight 55.79 kg Ian Holley PA-C Work Phone: [facility] Encounters Encounter Date Encounter Type Care Provider Facility Start: 11-19-2024 ambulatory Franc Quezada Facility:[facility] Start: 11-13-2024 End: 11-13-2024 ambulatory Franc Quezada MD Work Phone: [facility] Work Phone: Start: 11-13-2024 End: 11-13-2024 Patient encounter procedure Yecenia COATES [facility] Work Phone: Start: 11-13-2024 End: 11-13-2024 ambulatory Yecenia Pace Facility:[facility] Start: 11-06-2024 End: 11-06-2024 ambulatory Franc Quezada MD Work Phone: [facility] Work Phone: Start: 11-06-2024 End: 11-06-[address] Andrew Dover MD -[facility] Work Phone: Start: 11-06-2024 End: 11-06-2024 ambulatory Andrew Doevr Facility:[facility] Start: 10-24-2024 ambulatory Franc Quezada Facility:[facility] Start: 09-20-2024 End: 09-20-2024 Patient encounter procedure Vilma Vasquez [facility] Work Phone: Start: 09-20-2024 End: 09-20-2024 ambulatory Franc Quezada MD Work Phone: [facility] Work Phone: Start: 09-20-2024 End: 09-20-2024 ambulatory Vilma Vasquez Facility:[facility] Start: 08-30-2024 End: 08-30-2024 Follow-up encounter Tyrone Laguna DO Work Phone: [facility] Start: 08-28-2024 End: 08-28-2024 Office outpatient visit 25 minutes Emmie Fontanez APRN.VALVE LAPPER Work Phone: [facility] Comment on [...] Office outpatient visit 25 minutes Emmie Fontanez APRN.VALVE LAPPER Work Phone: [facility] Comment on above: UTI symptoms (Primar y Dx); Recurrent UTI (urinary tract infection) Start: 07-26-2024 End: 07-26-2024 Telephone encounter Emmie Fontanez APRN.CNP Work Phone: [facility] Start: 07-24-2024 End: 07-24-2024 Office outpatient visit 25 minutes Emmie Fontanez APRN.VALVE LAPPER Work Phone: [facility] Comment on above: UTI symptoms (Primar y Dx); Acute cystitis with hematuria Start: 07-22-2024 End: 07-23-2024 Patient encounter procedure [facility] Provider [facility] Department Start: 07-15-2024 End: 07-15-[address] Franc Quezada MD -Radiology, [place] Work Phone: Start: 07-15-2024 End: 07-15-2024 ambulatory Franc Quezada Facility:[facility] Start: 07-08-2024 End: 07-08-[address] Franc Quezada MD -Ultrasound, [facility] Work Phone: Start: 07-08-2024 End: 07-08-2024 ambulatory [facility] Facility:[facility] Start: 07-05-2024 End: 07-05-2024 ambulatory SERGIO Jensen BAILEY Facility:[facility] Start: 07-05-2024 End: 07-05-2024 Patient encounter procedure [...] joint [Z96.652] Start: 07-05-2024 End: 07-05-2024 ambulatory [facility] Facility:[facility] Start: 07-04-2024 End: 07-04-[address] Franc Quezada MD -Laboratory, [facility] Start: 07-04-2024 End: 07-04-2024 ambulatory [facility] Facility:[facility] Start: 07-01-2024 Non-patient / Non-visit Dr. 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 Khalida Abad [facility] Work Phone: Start: 06-28-2024 End: 06-28-2024 Patient encounter procedure Vilma COATES -[facility] Work Phone: Start: 06-28-2024 End: 06-28-2024 [facility] Start: 06-24-2024 Non-patient / Non-visit Rosalio Holly nd DO -[facility] Start: 06-24-2024 End: 06-24-2024 Admission to same day surgery center Rosalio Bonilla DO -Endoscopy Work Phone: Start: 06-24-2024 End: 06-24-2024 ambulatory [facility] Facility:[facility] Start: 06-19-2024 ambulatory [facility] Start: 06-19-2024 End: 07-02-2024 Evaluation and management of inpatient Dr. Ken Scott MD -Transitional Care Unit Start: 06-19-2024 Non-patient / Non-visit Dr. Murrell -[facility] Work Phone: Start: 06-18-2024 Non-patient / Non-visit Dr. Murrell [facility] Work Phone: Start: 06-17-2024 Non-patient / Non-visit Dr. Aranza verduzco MD -[facility] Work Phone: Start: 06-17-2024 End: 06-19-2024 ambulatory [facility] Facility:[facility] Start: 06-17-2024 End: 06-19-2024 Evaluation and management of inpatient Dr. Fito Kessler DO -Medical Surgical 3 Work Phone: Start: 06-16-2024 End: 06-17-2024 Emergency department patient visit Brent Nuñez DO -Emergency Department Work Phone: Start: 06-10-2024 End: 06-10-2024 Admission to same day surgery center Dr. Ashish Rojas MD -Erp Technical Lead/Special Procedures Work Phone: Start: 06-10-2024 End: 06-10-2024 ambulatory [facility] Facility:[facility] Start: 05-24-2024 End: 05-24-2024 Office consultation new/estab patient 40 min Sara Mclaughlin MD Work Phone: [facility] Comment on above: Recurrent UTI (Prima ry Dx); OAB (overactive bladder) Start: 05-24-2024 ambulatory SARA K ARNOLDO Kaminski ity:[facility] Start: 05-22-2024 End: 05-22-2024 ambulatory Chalon Judi Facility:[facility] Start: 2024 End: 2024 Emergency department patient visit Chalon Judi Facility:[facility] Start: 05-08-2024 End: 05-08-2024 ambulatory Chalon Judi Facility:[facility] Start: 05-08-2024 End: 05-08-2024 ambulatory Chalon Judi Facility:[facility] Start: 05-07-2024 End: 05-07-2024 ambulatory Chalon Judi Facility:[facility] Start: 04-22-2024 ambulatory Chalon Judi Facility:[facility] Start: 04-22-2024 End: 04-22-2024 ambulatory Chalon Judi Facility:[facility] Start: 04-12-2024 End: 04-12-2024 ambulatory [facility] Nurse Ortega Work Phone: [facility] Start: 04-12-2024 End: 04-12-2024 Patient encounter procedure [facility] Nurse Ortega Work Phone: [facility] [place] Start: 04-12-2024 End: 04-12-2024 ambulatory Chalon Judi Facility:[facility] Start: 04-11-2024 ambulatory VICKY CAMPO MD~[id number] [facility] Start: 03-28-2024 End: 03-28-2024 Office outpatient visit 15 minutes Radha Calderon MD Work Phone: [facility] Comment on above: Overactive bladder ( Primary Dx); Urge incontinence of urine Start: 03-21-2024 End: 03-21-2024 ambulatory Chalon Judi Facility:[facility] Start: 03-13-2024 End: 03-13-2024 ambulatory Chalon Judi Facility:[facility] Start: 02-22-2024 End: 02-22-2024 Office outpatient visit 25 minutes Radha Calderon MD Work Phone: [facility] Comment on above: Recurrent UTI (Prima ry Dx); OAB (overactive bladder); Urge incontinence of urine Start: 02-22-2024 End: 02-22-2024 ambulatory [facility] Start: 02-08-2024 End: 02-08-2024 ambulatory Franc Quezada Facility:[facility] Start: 01-18-2024 End: 01-19-2024 Evaluation and management of inpatient Nilesh Gaona Facility:[facility] Start: 01-18-2024 ambulatory Nilesh Gaona Facili ty:[facility] Start: 01-16-2024 End: 01-16-2024 ambulatory VICKY PERRY MD~[id number] [facility] Start: 12-28-2023 End: 12-28-2023 ambulatory VICKY PERRY MD~[id number] 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 Start: 10-23-2023 End: 10-23-2023 ambulatory SERGIO BAILEY [facility] Start: 10-19-2023 End: 10-19-[address] Sergio Bailey Work Phone: [facility] Work Phone: Start: 10-19-2023 End: 10-19-[address] Sergio Bailey Work Phone: [facility] Start: 08-31-2023 End: 08-31-[address] Sergio Bailey Work Phone: [facility] Work Phone: Start: 08-31-2023 End: 08-31-[address] Sergio Bailey Work Phone: [facility]-Laboratory, Spec[facility] Work Phone: Start: 08-24-2023 End: 08-24-2023 ambulatory SERGIO [facility] Start: 08-24-2023 End: 08-24-2023 Patient encounter procedure Tia Anglin MD MPH Work Phone: [facility] Comment on above: OAB (overactive blad jono) (Primary Dx) Start: 08-18-2023 End: 08-19-2023 ambulatory TIA Yang [facility] Start: 08-18-2023 End: 08-18-2023 Patient encounter procedure Tia Anglin MD MPH Work Phone: [facility] Comment on above: OAB (overactive blad jono) (Primary Dx) Start: 08-11-2023 End: 08-11-2023 ambulatory SERGIO BAILEY [facility] Start: 07-20-2023 End: 07-20-2023 ambulatory TIA Yang [facility] Start: 07-20-2023 End: 07-20-2023 Office consultation new/estab patient 80 min Tia Anglin MD MPH Work Phone: [facility] [place] Comment on above: Bladder pain (Primar y Dx); Pelvic floor dysfunction in female; OAB (overactive bladder) Start: 07-11-2023 End: 07-11-2023 Office outpatient visit 25 minutes Juju Hamm Work Phone: [facility] Comment on above: Irritable bowel synd christoph with constipation (Primary Dx); Ischemic colitis (CMS/HCC); Peptic ulcer Start: 07-11-2023 End: 07-11-2023 ambulatory [facility] Ambulatory Start: 06-30-2023 Non-patient / Non-visit Dr. Anuel Bailey Work Phone: [facility] Start: 06-30-2023 End: 06-30-[address] Sergio Bailey Work Phone: [facility] Work Phone: Start: 06-30-2023 End: 06-30-[address] Sergio Bailey Work Phone: [facility] Start: 06-28-2023 End: 06-28-2023 Emergency department patient visit Dr. Sergio Bailey Work Phone: [facility]-Emergency Department Work Phone: Start: 06-26-2023 Non-patient / Non-visit Dr. Anuel Bailey Work Phone: [facility] In[facility] Phys[facility] Work Phone: Start: 06-25-2023 Non-patient / Non-visit Dr. Anuel Bailey Work Phone: [facility] Work Phone: Start: 06-24-2023 Non-patient / Non-visit Dr. Anuel Bailey Work Phone: [facility] Start: 06-24-2023 Non-patient / Non-visit Dr. Anuel Bailey Work Phone: [facility] Work Phone: Start: 06-23-2023 Non-patient / Non-visit Dr. Anuel Bailey Work Phone: [facility] Start: 06-23-2023 Non-patient / Non-visit Dr. Anuel Bailey Work Phone: [facility] Work Phone: Start: 06-22-2023 Non-patient / Non-visit Dr. Anuel Bailey Work Phone: [facility] Start: 06-22-2023 Non-patient / Non-visit Dr. Anuel Bailey Work Phone: [facility] Work Phone: Start: 06-22-2023 Non-patient / Non-visit Dr. Anuel Bailey Work Phone: [facility] Start: 06-21-2023 End: 06-26-2023 Evaluation and management of inpatient [facility]. 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 Sergio Bailye Work Phone: [facility] Work Phone: Start: 05-11-2023 End: 05-11-[address] Sergio Bailey Work Phone: [facility] Work Phone: Start: 05-11-2023 End: 05-11-[address] Sergio Bailey Work Phone: [facility] Start: 04-21-2023 End: 04-21-2023 Patient encounter procedure Sangeeta Sim MD Work Phone: General Surgery Comment on above: Continuous severe ab dominal pain (Primary Dx); Ischemic colitis (HCC) Start: 04-17-2023 End: 04-17-2023 ambulatory SERGIO BAILEY [facility] Start: 02-22-2023 Telephone encounter Zoie Mckeon RN NOC Comment on above: Follow Up Phone Call (All Clear.) Start: 02-21-2023 Telephone encounter Sofia Baugh NOC Comment on above: Follow Up (Gyant int eraction - F/U - attempt made. No answer.) Start: 02-16-2023 End: 02-16-2023 Evaluation and management of inpatient SERGIO BAILEY Facility:[facility] Start: 02-15-2023 End: 02-18-2023 Evaluation and management of inpatient GARCÍA OCHOA ALEX Facility:[facility] Start: 02-14-2023 End: 02-14-2023 Emergency department patient visit Dr. Sergio Bailey Work Phone: [facility]-Emergency Department Work Phone: Start: 02-13-2023 End: 02-13-2023 Emergency department patient visit Dr. Sergio Bailey Work Phone: [facility]-Emergency Department Work Phone: Start: 01-26-2023 Non-patient / Non-visit Dr. Anuel Bailey Work Phone: [facility] Start: 01-25-2023 End: 01-27-2023 Evaluation and management of inpatient [facility] Work Phone: Start: 01-25-2023 observation encounter [facility] Work Phone: Start: 10-26-2022 End: 10-26-2022 ambulatory [facility] Work Phone: Start: 10-26-2022 End: 10-26-2022 Patient encounter procedure [facility], [facility] Start: 10-18-2022 End: 10-18-2022 ambulatory [facility] Work Phone: Start: 10-18-2022 End: 10-18-2022 Patient encounter procedure [facility] Start: 08-25-2022 End: 08-25-2022 ambulatory [facility] Work Phone: Start: 08-25-2022 End: 08-25-2022 Patient encounter procedure [facility]-Laboratory, Spec[facility] Start: 08-12-2022 End: 08-12-2022 ambulatory [facility] Work Phone: Start: 08-12-2022 End: 08-12-2022 Patient encounter procedure [facility] Start: 07-13-2022 End: 07-13-2022 ambulatory [facility] Work Phone: Start: 07-13-2022 End: 07-13-2022 [facility] Start: 07-06-2022 End: 07-06-2022 ambulatory [facility] Work Phone: Start: 07-06-2022 End: 07-06-2022 Patient encounter procedure [facility] Start: 06-19-2022 Telephone encounter Shelbi Lei APRN.VALVE LAPPER Work Phone: [facility] Comment on above: Results Start: 06-17-2022 Telephone encounter Sangeeta Sousa MD Work Phone: Ambulatory Surgery Comment on above: Patient Update Start: 06-17-2022 End: 06-17-2022 Office outpatient visit 15 minutes García Alvarez APRN.VALVE LAPPER Work Phone: [facility] Comment on above: Pharyngitis, unspeci fied etiology (Primary Dx) Start: 06-16-2022 End: 06-16-2022 Patient encounter procedure Sofia Delgado PA-C Work Phone: [facility] Comment on above: Urinary frequency (P rimary Dx) Start: 05-13-2022 Telephone encounter Sergio Bailey MD Work Phone: NOC Comment on above: Follow Up Phone Call (Post discharge phone call attempt made. No answer) Results Start: 05-12-2022 End: 05-12-2022 Subsequent hospital visit by physician [facility] Work Phone: Nuclear Medicine Comment on above: RUQ abdominal pain [ R10.11] Start: 05-09-2022 End: 05-09-2022 Patient encounter procedure Ian Holley PA-C Work Phone: Orthopaedics Comment on above: Trochanteric bursiti s of right hip (Primary Dx); Status post total replacement of left hip; History of revision of total replacement of right hip joint Start: 04-21-2022 End: 04-21-2022 [facility] Start: 04-20-2022 Telephone encounter Sangeeta Sousa MD Work Phone: [facility] [place] Comment on above: Appointment Start: 04-13-2022 Telephone encounter Sangeeta Sousa MD Work Phone: General Surgery Comment on above: Results Start: 04-11-2022 End: 04-11-2022 Subsequent hospital visit by physician [facility] Work Phone: Radiology Comment on above: RUQ abdominal pain [ R10.11] Start: 03-18-2022 Telephone encounter Sangeeta Sousa MD Work Phone: General Surgery Comment on above: Results Start: 03-07-2022 End: 03-07-2022 Emergency department patient visit [facility] Start: 03-03-2022 End: 03-03-2022 [facility] Start: 02-21-2022 Telephone encounter David costa PA-C Work Phone: General Surgery Comment on above: 03/10 colon/egd lodi Start: 02-21-2022 End: 02-21-2022 Patient encounter procedure David Beltran PA-C Work Phone: General Surgery Comment on above: Generalized abdomina l pain (Primary Dx); Change in bowel habits Start: 12-31-2021 End: 12-31-2021 Patient encounter procedure [facility] Start: 11-17-2021 End: 11-17-2021 Patient encounter procedure [...] 10-06-2021 ambulatory Bridger Spencer PT Work Phone: [facility] Comment on above: Cervical spondylosis without myelopathy (Primary Dx); Spinal stenosis of lumbar region, unspecified whether neurogenic claudication present; Lumbar spondylosis Start: 09-29-2021 End: 09-29-2021 ambulatory Bridger Spencer PT Work Phone: [facility] Comment on above: Cervical spondylosis without myelopathy (Primary Dx); Spinal stenosis of lumbar region, unspecified whether neurogenic claudication present; Lumbar spondylosis Start: 09-22-2021 End: 09-22-2021 ambulatory Bridger Spencer PT Work Phone: [facility] Comment on above: Cervical spondylosis without myelopathy (Primary Dx); Spinal stenosis of lumbar region, unspecified whether neurogenic claudication present; Lumbar spondylosis Start: 01-21-2021 End: 01-21-2021 Subsequent hospital visit by physician Elissa Suero [facility] Rej Work Phone: Radiology Comment on above: Status post total re placement of both hips [Z96.643] Start: 04-12-2018 End: 04-12-2018 Emergency department patient visit [facility] Start: 11-30-2017 End: 11-30-2017 Emergency department patient visit [facility] Procedures Date Procedure Procedure Detail Performing Clinician Start: 11-06-2024 CT of chest without contrast Franc Quezada MD Work Phone: Start: 08-28-2024 Urnls dip stick/tablet rgnt auto w/o microscopy Emmie Fontanez SPINDLE REPAIRER[employer] Work Phone: Start: 08-15-2024 Urnls dip stick/tablet rgnt auto w/o microscopy Emmie Fontanez SPINDLE REPAIRER.VALVE LAPPER Work Phone: Start: 07-24-2024 Urnls dip stick/tablet rgnt auto w/o microscopy Emmie Fontanez SPINDLE REPAIRER.VALVE LAPPER Work Phone: Start: 07-15-2024 X-ray of chest, [...] Start: 06-22-2023 MRI of lower extremity Dr. Sergio Bailey Work Phone: Start: 06-21-2023 Radiologic examination of knee Dr. Sergio Bailey Work Phone: Start: 06-21-2023 Measurement of occult blood in stool specimen using immunoassay Dr. Sregio Bailey Work Phone: Start: 02-15-2023 Antibody screen GARCÍA OBANDO Comment on above: Order Comment: Specimen Type: BLOOD SPEC IMEN Ordering Facility: [facility] Address: [address] [place], [place] [id number] Performed By: #### T SCR #### [facility] CLIA [id number] [address] [place] [address] Start: 02-14-[address] Sergio Bailey [...] Activity Detail Author Start: 12-24-2026 Esophagogastroduodenoscopy EGD [facility] Start: 06-22-2026 Esophagogastroduodenoscopy EGD [facility] Start: 05-30-2026 DTaP/Tdap/Td Vaccines (3 - Td or Tdap) DTaP/Tdap/Td Vaccines (3 - Td or Tdap) [facility] Start: 05-30-2026 Tetanus vaccination TETANUS [facility] Start: 05-30-2026 Urine microalbumin profile [facility] Start: 02-16-2026 DIABETES SCREEN DIABETES SCREEN [facility] Start: 02-16-2026 Diabetes Screening Diabetes Screening [facility] Start: 05-02-2025 DIABETES SCREEN DIABETES SCREEN [facility] Start: 09-23-2024 End: 09-23-2024 Patient encounter procedure 09/23/2024 8:30 AM EDT Office Visit Pulmonary [address] [place] [phone] Hugo Guillory MD [address] [place] [address] COPD Pulmonary Comment on above: COPD Start: 08-28-2024 End: 11-27-2024 Bacteria identified in Urine by Culture BACTERIAL CULTURE, URINE Microbiology Routine UTI symptoms Burning with urination Recurrent UTI (urinary tract infection) Expected: 08/28/2024, Expires: 11/27/2024 [facility] Work Phone: Comment on above: Expected: 08/28/2024, Expires: Start: 08-15-2024 End: 11-14-2024 Bacteria identified in Urine by Culture BACTERIAL CULTURE, URINE Microbiology Routine Recurrent UTI (urinary tract infection) Expected: 08/15/2024, Expires: 11/14/2024 [facility] Work Phone: Comment on above: Expected: 08/15/2024, Expires: Start: 07-24-2024 End: 10-23-2024 Bacteria identified in Urine by Culture BACTERIAL CULTURE, URINE Microbiology Routine UTI symptoms Acute cystitis with hematuria Expected: 07/24/2024, Expires: 10/23/2024 [facility] Work Phone: Comment on above: Expected: 07/24/2024, Expires: Start: 07-05-2024 End: 07-05-2024 Patient encounter procedure Radiology Comment on above: left add on hailee rosenthal Start: 07-03-2024 Advance Directive Discussion Advance Directive Discussion [facility] Start: 07-02-2024 Patient discharge [facility] Start: 07-02-2024 Development of care plan [facility] Start: 06-29-2024 [facility] Start: 06-27-2024 [facility] Start: 06-25-2024 Removal of urinary catheter [facility] Start: 06-24-2024 Egd transoral biopsy single/multiple EGD BIOPSY SINGLE/MULTIPLE [facility] Start: 06-24-2024 Patient discharge [facility] Start: 06-20-2024 Speech therapy management [facility] Start: 06-20-2024 Speech therapy assessment [facility] Start: 06-20-2024 Development of care plan [facility] Start: 06-20-2024 Developing a treatment plan [facility] Start: 06-20-2024 [facility] Start: 06-20-2024 [facility] Start: 06-19-2024 Following clinical pathway protocol [facility] Start: 06-19-2024 Admission procedure [facility] Start: 06-19-2024 Introduction of urinary catheter [facility] Start: 06-19-2024 Measuring intake and output [facility] Start: 06-19-2024 Patient referral to dietitian [facility] Start: 06-19-2024 Referral to occupational therapist [facility] Start: 06-19-2024 Referral to service [facility] Start: 06-19-2024 Vital signs measurements [facility] Start: 06-19-2024 End: 06-19-2024 [facility] Start: 06-19-2024 Patient discharge [facility] Start: 06-19-2024 Consultation [facility] Start: 06-19-2024 Introduction of urinary catheter [facility] Start: 06-19-2024 Introduction of urinary catheter [facility] Start: 06-18-2024 Removal of urinary catheter [facility] Start: 06-18-2024 Inhalation therapy procedure [facility] Start: 06-17-2024 End: 06-18-2024 [facility] Start: 06-17-2024 Application of intermittent pneumatic compression device [facility] Start: 06-17-2024 Assessment of risk of venous thromboembolism [facility] Start: 06-17-2024 Incentive spirometry [facility] Start: 06-17-2024 Insertion of catheter into peripheral vein [facility] Start: 06-17-2024 Measuring intake and output [facility] Start: 06-17-2024 Providing care according to standard [facility] Start: 06-17-2024 Provision of activity privileges [facility] Start: 06-17-2024 Referral to occupational therapist [facility] Start: 06-17-2024 Referral to service [facility] Start: 06-17-2024 Following clinical pathway protocol [facility] Start: 06-17-2024 Admission procedure [facility] Start: 06-17-2024 [facility] Start: 06-10-2024 Patient discharge [facility] Start: 03-03-2024 COVID-19 Vaccine ( season) COVID-19 Vaccine ( season) [facility] Start: 03-03-2024 Covid-19 Vaccine ( season) Covid-19 Vaccine ( season) [facility] Start: 03-03-2024 Influenza vaccination Influenza Vaccine (#1) [facility] Start: 02-22-2024 End: 02-22-2024 Patient encounter procedure 02/22/2024 10:45 AM EDT Office Visit [facility] [address] [place] [phone] Radha Calderon MD [address] [facility] [address] [place] [phone] [facility] Start: 12-25-2023 End: 12-25-2023 Patient encounter procedure 12/25/2023 12:10 PM EDT Appointment [facility] [place] [address] [place] [phone] Juju Hamm, DO [address] [facility] [place], [address] [place] [id number] [facility] [place] Start: 08-24-2023 End: 08-24-2023 Clinical Support 08/24/2023 1:00 PM EST Clinical Support [facility] [address] [facility] [address] [place] [phone] [facility] Start: 07-20-2023 End: 07-20-2023 Patient encounter procedure 07/20/2023 2:30 PM EST Office Visit [facility] [address] [place] [phone] Tia Anglin MD [facility] [address] [facility] [address] [place] [address] [facility] Start: 07-03-2023 Advance Directive Discussion Advance Directive Discussion [facility] Start: 06-28-2023 [facility] Start: 06-26-2023 Patient discharge [facility] Start: 06-25-2023 [facility] Start: 06-24-2023 End: 06-24-2023 Administration of blood product [facility] Start: 06-24-2023 Administration of blood product [facility] Start: 06-22-2023 Introduction of urinary catheter [facility] Start: 06-22-2023 [facility] Start: 06-22-2023 Referral to gastroenterology service [facility] Start: 06-22-2023 Application of intermittent pneumatic compression device [facility] Start: 06-22-2023 Following clinical pathway protocol [facility] Start: 06-21-2023 Consultation [facility] Start: 06-21-2023 Inhalation therapy procedure [facility] Start: 06-21-2023 Documentation procedure [facility] Start: 06-21-2023 Assessment of risk of venous thromboembolism [facility] Start: 06-21-2023 Insertion of catheter into peripheral vein [facility] Start: 06-21-2023 Measuring intake and output [facility] Start: 06-21-2023 Providing care according to standard [facility] Start: 06-21-2023 Provision of activity privileges [facility] Start: 06-21-2023 Referral to occupational therapist [facility] Start: 06-21-2023 Referral to service [facility] Start: 06-21-2023 [facility] Start: 06-21-2023 End: 06-21-2023 Administration of blood product [facility] Start: 06-21-2023 End: 06-21-2023 Admission procedure [facility] Start: 06-19-2023 End: 06-19-2024 CBC panel - Blood by Automated count CBC Lab Routine Ischemic colitis (CMS/HCC) Expected: 06/19/2023 (Approximate), Expires: 06/19/2024 [facility] Work Phone: Comment on above: Expected: 06/19/2023 (Approximate), Expi res: 06/19/2024 Start: 06-19-2023 End: 06-19-2024 Comprehensive metabolic 2000 panel - Serum or Plasma Comprehensive Metabolic Panel Lab Routine Ischemic colitis (CMS/HCC) Expected: 06/19/2023 (Approximate), Expires: 06/19/2024 [facility] Work Phone: Comment on above: Expected: 06/19/2023 (Approximate), Expi res: 06/19/2024 Start: 06-19-2023 End: 06-19-2024 CTA Abdominal vessels WO and W contrast IV CT angio abdomen w and or wo IV IV contrast Imaging Routine Ischemic colitis (CMS/HCC) Expected: 06/19/2023, Expires: 06/19/2024 [facility] Service Area Work Phone: Comment on above: Expected: 06/19/2023, Expires: Start: 06-19-2023 End: 06-19-2024 Lactate [Moles/volume] in Serum or Plasma Lactate Lab Routine Ischemic colitis (CMS/HCC) Expected: 06/19/2023 (Approximate), Expires: 06/19/2024 [facility] Work Phone: Comment on above: Expected: 06/19/2023 (Approximate), Expi res: 06/19/2024 Start: 03-03-2023 Covid-19 Vaccine () Covid-19 Vaccine () [facility] Start: 03-03-2023 Influenza vaccination INFLUENZA (#1) [facility] Start: 02-14-2023 [facility] Start: 01-27-2023 Patient discharge [facility] Start: 01-26-2023 CBC W Auto Differential panel - Blood [facility] Start: 01-26-2023 Lipid 1996 panel - Serum or Plasma [facility] Start: 01-26-2023 NM Heart Views W stress and W radionuclide IV [facility] Start: 01-26-2023 Nuclear Stress Test - Chemical Nuclear Stress Test - Chemical [facility] Start: 01-26-2023 [facility] Start: 01-25-2023 Assessment of risk of venous thromboembolism [facility] Start: 01-25-2023 Electrocardiographic procedure [facility] Start: 01-25-2023 Inhalation therapy procedure [facility] Start: 01-25-2023 Insertion of catheter into peripheral vein [facility] Start: 01-25-2023 Introduction of urinary catheter [facility] Start: 01-25-2023 Measuring intake and output [facility] Start: 01-25-2023 Oxygen therapy [facility] Start: 01-25-2023 Providing care according to standard [facility] Start: 01-25-2023 Provision of activity privileges [facility] Start: 01-25-2023 Referral to service [facility] Start: 01-25-2023 Tobacco use cessation education [facility] Start: 01-25-2023 End: 01-26-2023 [facility] Start: 01-25-2023 Admission procedure [facility] Start: 12-10-2022 DIABETES SCREEN DIABETES SCREEN [facility] Start: 08-21-2022 COVID-19 VACCINE (5 - Moderna series) COVID-19 VACCINE (5 - Moderna series) [facility] Start: 07-03-2022 ADVANCE DIRECTIVE DISCUSSION ADVANCE DIRECTIVE DISCUSSION [facility] Start: 06-15-2022 COVID-19 Vaccine (4 - Moderna series) COVID-19 Vaccine (4 - Moderna series) [facility] Start: 05-11-2022 Screening for osteoporosis [facility] Start: 03-03-2022 Influenza vaccination [facility] Start: 07-03-2021 ADVANCE DIRECTIVE DISCUSSION ADVANCE DIRECTIVE DISCUSSION [facility] Start: 05-11-2021 Screening for osteoporosis DEXA SCAN DISCUSSION [facility] Start: 03-03-2021 Influenza vaccination INFLUENZA (#1) [facility] Start: 01-25-2021 COVID-19 VACCINE (3 - Booster for Moderna series) COVID-19 VACCINE (3 - Booster for Moderna series) [facility] Start: 10-23-2020 COVID-19 VACCINE (3 - Booster for Moderna series) COVID-19 VACCINE (3 - Booster for Moderna series) [facility] Start: 06-03-2017 Screening for malignant neoplasm of colon COLORECTAL CANCER SCREENING DISCUSSION [facility] Start: 06-27-2016 Hepatitis B vaccination HEP B VACCINE (2 of 3 - 19+ 3-dose series) [facility] Start: 06-27-2016 Hepatitis B Vaccines (2 of 3 - 19+ 3-dose series) Hepatitis B Vaccines (2 of 3 - 19+ 3-dose series) [facility] Start: 06-27-2016 IPV Vaccines (2 of 3 - Adult catch-up series) IPV Vaccines (2 of 3 - Adult catch-up series) [facility] Start: 2015 RSV Vaccine (1 - 1-dose 75+ series) RSV Vaccine (1 - 1-dose 75+ series) [facility] Start: 2000 RSV patients and/or patients aged 60+ years (1 - 1-dose 60+ series) RSV patients and/or patients aged 60+ years (1 - 1-dose 60+ series) [facility] Start: 2000 RSV Vaccine (1 - 1-dose 60+ series) RSV Vaccine (1 - 1-dose 60+ series) [facility] Start: 1990 SHINGRIX VACCINE (1 of 2) SHINGRIX VACCINE (1 of 2) [facility] Start: 1980 Screening for malignant neoplasm of breast MAMMOGRAM SCREENING DISCUSSION [facility] Start: 1961 Screening for malignant neoplasm of cervix CERVICAL CANCER SCREENING DISCUSSION [facility] Start: 1958 Anxiety Screening Anxiety Screening [facility] Start: 1958 Diabetes mellitus screening Diabetes Screening [facility] Start: 1940 Endoscopy of gastrointestinal tract NOS ENDOSCOPY [facility] Start: 1940 Lipid panel Lipid Panel [facility] Start: 1940 Medicare Annual Wellness Visit Medicare Annual Wellness Visit (AWV) [facility] Start: 1940 Screening for osteoporosis Bone Density Scan [facility] Alanine aminotransfe rase [Enzymatic activity/volume] in Serum or Plasma [facility] Albumin [Mass/volume ] in Serum or Plasma [facility] Alkaline phosphatase [Enzymatic activity/volume] in Serum or Plasma [facility] Anion gap measurement [facility] Aspartate aminotrans ferase [Enzymatic activity/volume] in Serum or Plasma [facility] Bacteria identified in Urine by Culture URINE CULTURE Microbiology Routine Urinary frequency Ordered: 06/16/2022 [facility] Work Phone: Comment on above: Ordered: 06/16/2022 Bilirubin, total measurement [facility] BUN/Creatinine ratio [facility] Calcium [Mass/volume ] in Serum or Plasma [facility] Carbon dioxide, tota l [Moles/volume] in Serum or Plasma [facility] CBC W Auto Different ial panel - Blood [facility] Chloride [Moles/volu me] in Serum or Plasma [facility] Cholesterol [Mass/vo lume] in Serum or Plasma [facility] Cholesterol in HDL [ Mass/volume] in Serum or Plasma [facility] Cholesterol in LDL [ Mass/volume] in Serum or Plasma [facility] Creatinine [Moles/vo lume] in Serum or Plasma [facility] End: 02-21-2023 EGD DIAGNOSTIC EGD DIAGNOSTIC Endoscopy Routine Abdominal pain, unspecified abdominal location Change in bowel habits 1 Occurrences starting 02/21/2022 until 02/21/2023 [facility] Work Phone: Comment on above: 1 Occurrences starting 02/21/2022 until 02/21/2023 Glucose [Mass/volume ] in Serum or Plasma [facility] Hematocrit [Volume F raction] of Blood [facility] Hemoglobin [Mass/volume] in Blood [facility] End: 05-13-2023 Hepatobil syst imag inc gb w/pharma intervenj NM HEPATOBILIARY W EF AND/OR RX Radiology Routine RUQ abdominal pain 1 Occurrences starting 04/13/2022 until 05/13/2023 [facility] Work Phone: Comment on above: 1 Occurrences starting 04/13/2022 until 05/13/2023 Leukocytes [#/volume] in Blood [facility] Mean corpuscular hem oglobin concentration determination [facility] Mean corpuscular hem oglobin determination [facility] Measurement of renal function [facility] Neutrophil count [facility] Neutrophil percent d ifferential count [facility] Patient Education [facility] Work Phone: Patient referral [facility] Work Phone: Platelets [#/volume] in Blood [facility] POCT URINE DIPSTICK NON-AUTOMATE D POCT URINE DIPSTICK NON-AUTOMATED Point of Care Testing Routine Recurrent UTI OAB (overactive bladder) Ordered: 06/03/2024 [facility] Comment on above: Ordered: 06/03/2024 Potassium [Moles/vol ume] in Serum or Plasma [facility] Red blood cell count [facility] Red cell distributio n width determination [facility] End: 02-21-2023 Screening colonoscopy COLONOSCOPY SCREENING Endoscopy Routine Abdominal pain, unspecified abdominal location Change in bowel habits 1 Occurrences starting 02/21/2022 until 02/21/2023 [facility] Work Phone: Comment on above: 1 Occurrences starting 02/21/2022 until 02/21/2023 Sodium [Moles/volume ] in Serum or Plasma [facility] Surgical pathology study [facility] Service Area Work Phone: Comment on above: Release Upon Ordering for 1 Occurrences starting 12/25/2023 Total protein measurement [facility] Triglycerides measurement [facility] UA DIP, URINE (POC) UA DIP, URIN E (POC) Lab Routine Urinary frequency Ordered: 06/16/2022 [facility] Work Phone: Comment on above: Ordered: 06/16/2022 Urea nitrogen [Mass/ volume] in Serum or Plasma [facility] End: 08-04-2025 US Lower extremity - left US KNEE/DISTAL THIGH LEFT Radiology BYRON Status post revision of total replacement of left knee 1 Occurrences starting 07/05/2024 until 08/04/2025 [facility] Comment on above: 1 Occurrences starting 07/05/2024 until 08/04/2025 VLDL cholesterol measurement [facility] End: 12-10-2022 XR HIP BILATERAL 5V PEL/AP/LAT EACH HIP XR HIP BILATERAL 5V PEL/AP/LAT EACH HIP Radiology Routine Pain 1 Occurrences starting 11/10/2021 until 12/10/2022 [facility] Work Phone: Comment on above: 1 Occurrences starting 11/10/2021 until 12/10/2022 End: 07-31-2025 XR Knee AP and Lateral and Merchants XR KNEE POST OP 3V AP/LAT/MERCHANT LEFT Radiology Routine 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 1 Occurrences starting 07/01/2024 until 07/31/2025 [facility] Work Phone: Comment on above: 1 Occurrences starting 07/01/2024 until 07/31/2025 End: 08-01-2025 XR Knee AP and Lateral and Merchants XR KNEE POST OP 3V AP/LAT/MERCHANT LEFT Radiology Routine Status post revision of total replacement of left knee 1 Occurrences starting 07/02/2024 until 08/01/2025 [facility] Work Phone: Comment on above: 1 Occurrences starting 07/02/2024 until 08/01/2025 End: 07-31-2025 XR Pelvis and Hip - left AP and Lateral frog XR HIP GENERAL 3V PELV/AP/LAT LEFT Radiology Routine 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 1 Occurrences starting 07/01/2024 until 07/31/2025 [facility] Comment on above: 1 Occurrences starting 07/01/2024 until 07/31/2025 End: 08-01-2025 XR Pelvis AP XR PELVIS 1V AP Radiology Routine Status post revision of total replacement of left knee 1 Occurrences starting 07/02/2024 until 08/01/2025 [facility] Comment on above: 1 Occurrences starting 07/02/2024 until 08/01/2025 [facility] Immunizations Immunization Date Immunization Notes [facility] Provider [facility] 04-12-2024 influenza, high dose seasonal, preservative-free Immunization Orte[place] Work Phone: [facility] 03-18-2023 influenza, high dose seasonal, preservative-free Sangeeta Sim MD Work Phone: [facility] 03-18-2023 influenza virus vaccine, unspecified formulation Radha Calderon MD Work Phone: [facility] Work Phone: 04-20-2022 COVID-19 booster vaccine, age 12+ yr, bivalent (Shipu) Ina Holley PA-C Work Phone: [facility] 04-13-2022 influenza, high dose seasonal, preservative-free Sangeeta Sim MD Work Phone: [facility] 05-07-2021 zoster vaccine recombinant Sangeeta Sim MD Work Phone: [facility] 01-20-2021 zoster vaccine recombinant Sangeeta Sim MD Work Phone: [facility] 08-28-2020 Covid (Moderna) [facility] 07-31-2020 Covid (Moderna) [facility] 03-27-2020 influenza, high dose seasonal, preservative-free Bridger Spencer PT Work Phone: [facility] 04-17-2018 influenza, high dose seasonal, preservative-free Bridger Spencer PT Work Phone: [facility] 04-29-2017 influenza, high dose seasonal, preservative-free Bridger Tj PT Work Phone: [facility] 05-30-2016 DTaP-hepatitis B and poliovirus vaccine Sangeeta Sim MD Work Phone: [facility] 05-30-2016 tetanus toxoid, redu ana laura diphtheria toxoid, and acellular pertussis vaccine, adsorbed Bridger Spencer PT Work Phone: [facility] 05-30-2016 poliovirus vaccine, unspecified formulation Juju Hamm DO Work Phone: [facility] Work Phone: 05-03-2016 influenza, high dose seasonal, preservative-free Bridger Spencer PT Work Phone: [facility] Work Phone: 03-16-2015 pneumococcal conjuga te vaccine, 13 valent Bridger Spencer PT Work Phone: [facility] 07-19-2014 tuberculin skin test ; purified protein derivative solution, intradermal Immunization [place] Work Phone: [facility] [facility]2014 influenza virus vaccine, whole virus Bridger Spencer PT Work Phone: [facility] 04-12-2012 influenza virus vaccine, unspecified formulation Bridger Spencer PT Work Phone: [facility] 06-03-2010 influenza virus vaccine, unspecified formulation Bridger Spencer PT Work Phone: [facility] 08-16-2008 pneumococcal polysaccharide vaccine, 23 valent Bridger Spencer PT Work Phone: [facility] 07-03-2003 pneumococcal polysaccharide vaccine, 23 ary Sim MD Work Phone: [facility] Payers Date Payer Category Payer Self-pay [id number] 2023 Medicare (Managed Care) JOCELYNE OVIEDO [id number] 2019 Unknown ANTHEM BLUE CROS S AND BLUE SHIELD ANTHEM MEDIBLUE ACCESS [id number] 2019-Present [id number] [place] [id number] PPO [id number] [id number] 2019 Unknown ANTHEM BLUE CROS S AND BLUE SHIELD ANTHEM MEDIBLUE ACCESS [id number] 2019-Present [id number] [place] [id number] PPO [id number] [id number] 2018 Medicare [id number]. 1.13.159. 2.7.3.037753.315 2015 Medicare [id number] 1959 Medicare [id number] 1940 Unknown [id number] 2.16.840.1.959781.3.579. 2.1245 1940 Unknown [id number] 2.16.840.1.821220.3.579. 2.1245 1940 Unknown [id number] 2.16.840.1.024871.3.579. 2.1245 1940 Unknown [id number] 2.16.840.1.057681.3.579. 2.1244 1940 Unknown [id number] 2.16.840.1.403668.3.579. 2.1244 1940 Unknown [id number] 2.16.840.1.794575.3.579. 2.1244 1940 Unknown [id number] 2.16.840.1.030411.3.579. 2.1243 1940 Unknown [id number] 2.16.840.1.013239.3.579. 2.1243 1940 Unknown [id number] 2.16.840.1.087097.3.579. 2.1243 1940 Unknown [id number] 2.16.840.1.287263.3.579. 2.598 1940 Unknown [id number] 2.16.840.1.467340.3.579. 2.598 1940 Unknown [id number] 2.16.840.1.010200.3.579. 2.598 1940 Unknown [id number] 2.16.840.1.098788.3.579. 2.598 1940 Unknown [id number] 2.16.840.1.569755.3.579. 2.598 1940 Unknown [id number] 2.16.840.1.354184.3.579. 2.598 1940 Unknown [id number] 2.16.840.1.452769.3.579. 2.598 1940 Unknown [id number] 2.16.840.1.488978.3.579. 2.598 1940 Unknown [id number] 2.16.840.1.604811.3.579. 2.594 1940 Unknown [id number] 2.16.840.1.008989.3.579. 2.594 Medicare [id number] Unknown [id number] 2.16.840.1.854677.3.579. 2.462 Unknown [id number] 2.16.840.1.281571.3.579. 2.462 Unknown [id number] 2.16.840.1.599039.3.579. 2.462 Unknown [id number] 2.16.840.1.623820.3.579. 2.462 Unknown [id number] 2.16.840.1.461264.3.579. 2.462 Unknown [id number] 2.16.840.1.763500.3.579. 2.462 Unknown [id number] 2.16.840.1.756337.3.579. 2.462 Unknown [id number] 2.16.840.1.777100.3.579. 2.462 Unknown [id number] 2.16.840.1.692758.3.579. 2.462 Unknown [id number] 2.16.840.1.403319.3.579. 2.462 Unknown [id number] 2.16.840.1.676677.3.579. 2.462 Unknown [id number] 2.16.840.1.390806.3.579. 2.462 Unknown [id number] 2.16.840.1.400855.3.579. 2.462 Unknown [id number] 2.16.840.1.535570.3.579. 2.462 Unknown [id number] 2.16840.1.389623.3.579. 2.462 Unknown [id number] 2.16840.1.298872.3.579. 2.462 Unknown [id number] 2.16.840.1.058906.3.579. 2.462 Unknown [id number] 2.16840.1.403033.3.579. 2.462 Unknown [id number] 2.16840.1.157705.3.579. 2.462 Unknown [id number] 2.840.1.148525.3.579. 2.462 Unknown [id number] 2.840.1.525469.3.579. 2.462 Unknown [id number] 2.840.1.418377.3.579. 2.462 Unknown [id number] 2.840.1.128262.3.579. 2.462 Unknown [id number] 2.840.1.335582.3.579. 2.462 Unknown [id number] 2.840.1.783566.3.579. 2.462 Unknown [id number] 2.840.1.100892.3.579. 2.462 Unknown [id number] 2.840.1.419765.3.579. 2.462 Unknown [id number] 2.840.1.438047.3.579. 2.462 Unknown [id number] 2.840.1.974797.3.579. 2.462 Unknown [id number] 2.840.1.459313.3.579. 2.462 Unknown [id number] 2.16840.1.037789.3.579. 2.462 Unknown [id number] 2.16.840.1.809985.3.579. 2.462 Unknown [id number] 2.840.1.801653.3.579. 2.462 Unknown [id number] 2.16.840.1.780448.3.579. 2.462 Unknown [id number] 2.16.840.1.740720.3.579. 2.462 Unknown [id number] 2.16.840.1.337411.3.579. 2.462 Unknown [id number] 2.16.840.1.006336.3.579. 2.462 Unknown [id number] 2.16.840.1.663014.3.579. 2.462 Unknown [id number] 2.16840.1.319921.3.579. 2.462 Social History Date Type Detail Facility Start: 11-29-2019 End: 10-14-2024 Tobacco smoking status NHIS Ex-smoker [facility] Work Phone: Start: 06-29-2004 End: 06-29-2005 History of tobacco use Current smoker [facility] Start: 06-29-2004 End: 06-29-2005 History of tobacco use Cigarette Smoker [facility] Start: 12-14-2020 End: 08-28-2024 Alcohol intake Current drinker of alcohol (finding) [facility] Start: 11-29-2019 End: 12-11-2019 History SDOH Alcohol Frequency 5 [facility] Start: 11-29-2019 End: 12-11-2019 History SDOH Alcohol Std Drinks 1 [facility] Start: 12-11-2019 History SDOH Transpo rt Med 2 [facility] Start: 12-11-2019 Education 12 [facility] Start: 1940 Sex Assigned At Not on file [facility] Start: 09-10-2021 End: 03-28-2024 Exposure to SARS-CoV-2 (event) Not sure [facility] Start: 05-01-2021 End: 06-28-2023 Tobacco smoking status INIS Unknown if ever smoked [facility] Start: 1940 Sex Assigned At Female W [facility] Start: 11-29-2019 End: 04-21-2023 Cigarettes smoked current (pack per day) - Reported 0.2 [facility] Work Phone: Start: 11-29-2019 End: 07-05-2024 Tobacco use and exposure Smokeless tobacco non-user [facility] Work Phone: Start: 11-29-2019 End: 04-21-2023 Alcohol Use Disorder Identification Test - Consumption [AUDIT-C] [facility] Work Phone: How often to you hav e a drink containing alcohol? 4 or more times a week [facility] Work Phone: How many standard dr inks containing alcohol do you have on a typical day? 1 or 2 [facility] Work Phone: How often do you hav e 6 or more drinks on 1 occasion? Never [facility] Work Phone: How hard is it for y ou to pay for the very basics like food, housing, medical care, and heating Not hard at all [facility] Work Phone: (I/We) worried az er (my/our) food would run out before (I/we) got money to buy more. Never true [facility] Work Phone: In the past 12 month s, was there a time when you were not able to pay the mortgage or rent on time? No [facility] Work Phone: Start: 02-16-2023 Alcohol Comment [facility] Start: 12-02-2020 End: 01-01-2021 Exposure to SARS-CoV-2 (event) Yes [facility] Start: 06-19-2023 End: 05-24-2024 Tobacco smoking status NHIS Never smoked tobacco [facility] Work Phone: Start: 05-24-2024 Alcoholic beverage intake Ex-drinker (finding) [facility] Start: 09-26-2024 Sex [facility] (finding) [facility] NEGATED: Highlighted row Not [facility] Medical Equipment Procedure Code Equipment Code Equipment Origin al Text Equipment Identifier Dates Graft Bn Canc 30 ml Allgrft - [id number] Start: 07-09-2014 Graft Bn Canc 30 ml Allgrft - [id number] Start: 07-09-2014 Watson Bn Smpx P Radpq Fd Strl - [id number] Start: 05-16-2011 Watson Bn Smpx P Radpq Fd Strl - [id number] Start: 05-16-2011 Cement Simplex P Bone Radiopaque Full Dose Sterile - [id number] Start: 12-10-2019 Cement Simplex P Bone Radiopaque Full Dose Sterile - [id number] Start: 12-10-2019 Nls-Sj-N-Kind Implant - [id number] Start: 05-16-2011 Comment on above: Description: Articul ar [id number], ARTICULAR SURFACE Shell Actb 62mm Rev Tritanum G - [id number] Start: 07-09-2014 Bear 48mm Mbl Md lr 2 Tib G - [id number] Start: 07-09-2014 Ins Actb 54mm 28 mm Cup Edie 2 - [id number] Start: 07-09-2014 Head Fem +12mm 12/14 28mm Hip - [id number] Start: 07-09-2014 Liner 36mm 0d E X3 5.9mm Acetabular Hip - [id number] Start: 12-10-2019 Stem [place] V40 4 44mm Offset Femoral Cemented Hip - [id number] Start: 12-10-2019 Restrictor Mediu m [place] Cement Disposable Ui Software Engineer Distal - [id number] Start: 12-10-2019 Shell Trident Ii 52mm E Tritanium Acetabular 5 Screw Hole Cluster Sterile - [id number] Start: 12-10-2019 Head V40 36mm 0m m Offset Taper Biolox Delta Femoral Hip - [id number] Start: 12-10-2019 Screw Bn 6.5mm 50mm Osteolk Ti - [id number] Start: 07-09-2014 Screw Bn 6.5mm 35mm Osteolk Ti - [id number] Start: 07-09-2014 Screw Bn 6.5mm 24mm Osteolk Ti - [id number] Start: 07-09-2014 Screw Bn 6.5mm 20mm Osteolk Ti - [id number] Start: 07-09-2014 Screw Bn 6.5mm 24mm Osteolk Ti - [id number] Start: 07-09-2014 Screw Bn 6.5mm 14mm Osteolk Ti - [id number] Start: 07-09-2014 Screw Trident Ii 6.5mm 30mm Bone Low Profile Hexagonal Sterile - [id number] Start: 12-10-2019 Screw Trident Ii 6.5mm 25mm Bone Low Profile Hexagonal Sterile - [id number] Start: 12-10-2019 Screw Trident Ii 6.5mm 20mm Bone Low Profile Hexagonal Sterile - [id number] Start: 12-10-2019 Goals Date Patient Goal Desired Activity /State Functional Status Date Assessment Result Facility 07-02-2024 Functional status Bedrest [facility] Work Phone: 06-19-2024 Functional status Bathroom Privilege [facility] Work Phone: 06-26-2023 Functional status Ambulates [facility] Work Phone: 02-17-2023 Are you deaf, or do you have serious difficulty hearing No 02/17/2023 5:33 PM Vandana Bazzi, MARIELOS [facility] 02-17-2023 Are you blind, or do you have serious difficulty seeing, even when wearing glasses No 02/17/2023 5:33 PM Vandana Bazzi, MARIELOS No [facility] 02-17-2023 Do you have serious difficulty walking or climbing stairs No 02/17/2023 5:33 PM Vandana Bazzi, MARIELOS No [facility] 02-17-2023 Do you have difficul ty dressing or bathing No 02/17/2023 5:33 PM Vandana Bazzi, MARIELOS No [facility] 02-17-2023 Because of a physica l, mental, or emotional condition, do you have difficulty doing errands alone such as visiting a physician's office or shopping No 02/17/2023 5:33 PM EDVandana Echeverria RN No [facility] 01-27-2023 Functional status Ambulates [facility] Work Phone: Mental Status Date Assessment Result Facility 07-02-2024 Cognitive function Voice/Name [facility] Work Phone: 06-29-2024 Cognitive function Appropriate [facility] Work Phone: 06-24-2024 Cognitive function Voice/Name [facility] Work Phone: 06-19-2024 Cognitive function Voice/Name [facility] Work Phone: 06-26-2023 Cognitive function Voice/Name [facility] Work Phone: 02-17-2023 Because of a physica l, mental, or emotional condition, do you have serious difficulty concentrating, remembering, or making decisions No 02/17/2023 5:33 PM EDVandana Echeverria, MARIELOS No [facility] 01-27-2023 Cognitive function Voice/Name [facility] Work Phone: 01-25-2023 Cognitive function Voice/Name [facility] Work Phone: 03-07-2022 Cognitive function Level Of Cons ciousness Awake;Alert;Appropriate;Fol lows Commands [facility] Work Phone: 03-03-2022 Cognitive function Voice/Name [facility] Work Phone: Clinical Notes 01-21-2021 to 11-10-2024 Note Date & Type Note Facility 11-10-2024 Radiology Diagnostic study note [facility] Imaging Services [address] [place], [place] [address] Chest without Contrast MR#: [id number] Acct: [id number] Name: SANDIE HO Rep #: [id number] : 1940 F 84 From: Massiel Richardson MD PCP: Dr. Franc Quezada MD Status: REG CL I Study:Chest without Contrast Date of Exam: 11/06/24 Exam# [id number] Ordering Dr: Andrew Dover MD PROCEDURE: CHEST [...] in the right middle lobe. Reading Location: [facility] CC: Dr. Franc Quezada MD; Dr. Andrew Dover MD ~ Pony Edger: Signed [facility] 09-20-2024 Evaluation note Diagnosis Onset Date Resolution Essential (primary) hypertension acute September 20, 2024 3:29pm LV dysfunction acute August 3:29pm Stenosis of right subclavian artery acute September 20 3:29pm Dyspnea chronic September 20 3:29pm [facility] Work Phone: 1(327) 650-489403-21-2025 Evaluation note* Diagnosis Onset Date Resolution Status Admit Date Essential (primary) hypertension acute September 20, 2024 3:29pm LV dysfunction acute August 3:29pm Stenosis of right subclavian artery acute September 20, 2024 3:29pm Dyspnea chronic September 20 3:29pm Anemia acute November 13, 2024 9:42am Gastric ulcer acute November 13, 025 9:42am Duodenal ulcer chronic November 13, 2024 9:42am Esophageal dysmotility chronic 2024 9:42am [facility] Work Phone: 1(118) 213-969002-28-2025 Telephone encounter Note* Telephone Encounter - Karen Villa MA - 08/30/2024 3:08 PM EST Patient called back and I gave her the results as stated below. She verbalized understanding of theresults. [facility]02-28-2025 Telephone encounter Note* Telephone Encounter - [...] with PC if ongoing issues. Thank you [facility]02-28-2025 Miscellaneous Notes* Telephone Encounter - Karen [...] ongoing issues. Thank you documented in this encounterVan [facility] Telephone encounter Note * Telephone Encounter - Karen Villa MA - 08/30/2024 8:10 AM EST Called patient, no answer, left message for patient to return call back. [facility]02-28-2025 Telephone encounter Note* Telephone Encounter - [...] with PC if ongoing issues. Thank you [facility]02-28-2025 Progress note* Result Encounter Note - Tyrone Laguna DO - 08/30/2024 8:05 AM EST Please notify pt of the urine culture results: Mixed genital yong isolated. These superficial bacteria are not indicative of a urinary tract infection. Pt can conitnue antibiotic if it has helped with symptoms. Please follow up with PC if ongoing issues. Thank you [facility] Work Phone: 1(597) 579-652002-26-2025 Instructions* Patient Instructions* Emmie Fontanez APRN.CNP - 08/28/2024 1:49 PM EST . [place] Antibiotic sent to the pharmacy There is no leukocytes/bacteria in your urine today however I did send an antibiotic to the pharmacy just in case Hydration documented in this encounterVan [facility] History of Present illness Narrative* HuseyinEmmie, MARCELLO.VALVE LAPPER - 08/28/2024 1:43 PM EST Sandie Jensen [place] 08/28[birth year] [id number] REASON FOR VISIT: Patient presents with: UTI: [...] WHEN PFRMD Colonoscopy CYSTOURETHROSCOPY Cystoscopy EGD W/O [facility] SPEC VARICIES INJ 03/10/2022 PAST SURGICAL HISTORY OF R THR x 3 PAST SURGICAL HISTORY OF Bilat TKR PAST SURGICAL HISTORY OF L Hip pinning (later removed) PAST SURGICAL HISTORY OF Heart Cath PAST SURGICAL HISTORY OF Dilation of left ureter PAST SURGICAL HISTORY OF 05/2011 L knee revision PAST SURGICAL HISTORY OF 2014 R THR - [place] PAST SURGICAL HISTORY OF Right 07/2014 total hip replacement SOCIAL HISTORY: Social History Social History Narrative Lives w/ - no pets SOCIAL HISTORY 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)) Years Of Education Completed: 12 years Marital [...] x5 Coronary Artery Disease Brother aged 52, [place] Diabetes Brother Type II No Family History [...] APRN.CNP 08/28/2024 1:43 PM documented in this encounterVan [facility] Telephone encounter Note * Telephone Encounter - Raina Dunbar RN - 08/26/2024 11:05 AM EST Pt called back for her results, said she has another day of antibiotics left but she is feeling better she will continue the antibiotics till they are completed [facility]02-24-2025 Miscellaneous Notes* Telephone Encounter - Raina [...] up if not better documented in this encounterVan [facility]02-17-2025 Telephone encounter Note * Telephone Encounter - Mildred Handy MA - 08/19/2024 7:53 AM EST LVM informing patient to give the office a call back to discuss urine culture results. [facility]02-17-2025 Telephone encounter Note* Telephone Encounter - Mildred Handy MA - 08/19/2024 7:53 AM EST ----- Message from Travis Madden DO sent at 08/19/2024 7:48 AM EST ----- Uti with enterococcus, continue antibiotic and follow up if not better [facility]02-13-2025 Instructions* Patient Instructions* Emmie Fontanez APRN.CNP [...] report at that time. 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 She has had no fever.Reports she has a history of urinary retention. Patient Instructions . Placed on the antibiotic twice a day for 10 days Follow-up with urology when you return [place] UTI, Symptoms usually resolve within 2 to [...] APRN.CNP 08/15/2024 3:36 PM documented in this encounterVan [facility]01-22-2025 Instructions* Patient Instructions* Emmie Fontanez APRN.CNP [...] report at that time. 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 Emmie Fontnaez APRN.CNP 07/24/2024 2:59 PM documented in this encounterVan [facility]01-03-2025 Instructions* Patient Instructions* Jeevan Funez PA-C - 07/05/2024 12:25 PM EST Will follow up in [place] at a [facility] after the msk ultra sound left quadricept ? Partial tear Placed in a IROM BRACE locked out at 0 degrees extension WBAT LLE WITH WALKER OR CANE documented in this encounterVan Wert County Hospital01-03-2025 NoteHNO ID: [id number] Author: JEEVAN FUNEZ PA-C Service: ? Author Type: Physician Sulfur Chloride Operator Type: Progress Notes Filed: 07/05/2024 12:51 Note [...] ultrasound was ordered. Patient is going down [facility] in a week or 2 and will get the ultrasound done and then follow-up one of the [facility] in [place]. In the meanwhile she was placed on [...] Positive patellar grind t (more content not included)...[facility]01-03-2025 History of Present illness Narrative* Jeevan Funez [...] was ordered. Patient is going down to [place] in a week or 2 and will get the ultrasound done and then follow-up one of the [facility] in [place]. In the meanwhile she was placed on [...] results and radiologist's interpretation, available in the [facility] health record. Images were reviewed with the [...] cane or walker. Patient will follow-up in [place] after the ultrasound is done at one of the [facility] facility for further evaluation and care. [...] above. Jeevan Funez PA-C documented in this encounterVan [facility]ert County Hospital01-03-2025 History of Present illness Narrative* Hailey [...] PATIENT PRESENTS WITH AN IMPLANTABLE OR ATTACHED PROTECTIVE SIGNAL REPAIRER HELPER: No RADIOLOGY DEPARTMENT: General X-ray: Exam(s) Completed: Pelvis X-Ray: Pelvis with Hip Left Lower Extremity X-Ray(s): Knee, AP / Lat / Merchant Left PERIPHERAL IV DATA: Not applicable SIGNED BY: LAYLA Egan) July 05, 2024 11:39 AM documented in this encounterVan Wert County Hospital01-03-2025 NoteHNO ID: [id number] Author: HAILEY KHAN RT (R) Service: Radiology Author Type: Slip Sheeter Type: Progress Notes Filed: 07/05/2024 11:40 Note [...] PATIENT PRESENTS WITH AN IMPLANTABLE OR ATTACHED PROTECTIVE SIGNAL REPAIRER HELPER: No RADIOLOGY DEPARTMENT: General X-ray: Exam(s) Completed: Pelvis X-Ray: Pelvis with Hip Left Lower Extremity X-Ray(s): Knee, AP / Lat / Merchant Left PERIPHERAL IV DATA: Not applicable SIGNED BY: RT Jignesh(Chica) July 05, 2024 11:39 [facility]12-30-[address]24 [facility]12-23-[address]24 [facility]12-18-2024 Note [facility]12-18-2024 [facility]12-16-2024 Evaluation note* Diagnosis Onset Date Resolution [...] 2024 3:29pm Dyspnea chronic September 20 3:29pm [facility] Work Phone: 1(462) 260-189311-22-2024 History of Present illness Narrative* Jazz Zepeda [...] 4, Warm. No clubbing. No cyanosis. Skin: [place], warm and dry. No rashes noted. Labs [...] Sara Mclaughlin MD [facility] Instructions* Patient Instructions* Sara Mclaughlin MD - [...] irritants and timed voiding [facility] History of Present illness Narrative* Radha Calderon [...] out was performed. Procedure: LMP (LMP Unknown) Cone Trucker for procedure: Katherine Negron After confirming she [...] while avoiding the trigone region, using a [employer] injection needle at four sites at a [...] injection. Radha Calderon MD [facility] Work Phone: 1(295) 182-883808-22-2024 History of Present illness Narrative* Radha Calderon [...] IC/BPS OAB/UUI - s/p botox 100U 08/18/23 ([facility]) - interested in repeating same dose - [...] plan. Radha Calderon MD documented in [facility] Work Phone: 1(711) 643-821908-22-2024 Instructions* Patient Instructions* Radha Calderon MD - [...] dryness in the vagina. documented in this encounterGlen[facility] Work Phone: 1(888) 975-728207-19-2024 [facility]06-24-2024 Attending History and physical note* Juju Hamm, - 12/25/2023 12:50 PM EDT H&P reviewed. The patient was examined and there are no changes to the H&P. Source Note - Juuj Hamm DO - 12/14/2023 11:45 AM EDT [...] MAC. Juju Hamm DO 12/14/23 2:22 PM [facility] Work Phone: 1(319) 350-355506-24-2024 History and physical note* Juju Hamm DO [...] DO 12/14/23 2:22 PM documented in this encounterUnPro[facility] Work Phone: 1(860) 695-211506-24-2024 Nurse Note* Shashi Hernandez RN - 12/25/2023 12:02 PM EDT It was a pleasure taking care of you today! -Ever S [facility]06-24-2024 Nurse Note* Shashi Hernandez RN - 12/25/2023 12:02 PM EDT It was a pleasure taking care of you today! -Ever S documented in this [facility] Work Phone: 1(778) 772-260006-13-2024 History of Present illness Narrative* Juju Hamm, [...] DO 12/14/23 2:22 PM documented in this encounterG[facility] Work Phone: 1(615) 363-925302-22-2024 History of Present illness Narrative* Carolyne Vivar RN - 08/24/2023 1:00 PM EST Pt reports wonderful results with botox documented in this encounterGlen[facility] Work Phone: 1(554) 128-113302-16-2024 History of Present illness Narrative* Tia Anglin MD MPH - 08/18/2023 9:30 AM ESTAssociated Order(s): Cystoscopy with Biospy Injection Post-Procedure Diagnose(s): OAB (overactive bladder) [facility] Department of Urogynecology Tia Anglin MD, MPH [phone] ASSESSMENT AND PLAN: 83 y.o. female with [...] - 02/15/2023 Dr. Kaylee Coker @ [facility] note reviewed: Concern for hematuria. It [...] mg capsule Take by mouth. Historical Provider, wfwuket-gfqagacggpcfc-sntokohp (Excedrin Migraine) 250-250-65 mg tablet Take 1 [...] day as needed (Abdominalspasms, cramping). 06/19/23 06/18/24 Jjuu Hamm, diphenhydrAMINE (Sominex) 25 mg tablet Take 1 tablet (25 mg) by mouth as needed at bedtime for sleep. Historical Provider, HYDROcodone-acetaminophen (Sa[place]) 5-325 mg tablet Take 1 tablet by [...] 07/11/23 07/10/24 Juju Hamm DO mv-mn/folic acid/vit K/repp215 (ALIVE ONCE DAILY WOMEN 50 PLUS ORAL) [...] MPH Authorized by: Tia Anglin MD MPH Cone Trucker present: yes Anesthesia: local anesthesia Procedure Details Cystoscope type: flexible Cystoscopy route: transurethral Cystoscopy location: gulkana bladder Irrigation used: saline Position: dorsal lithotomy Urethra Urethra: normal Vagina Vagina: normal Bladder Bladder: normal Botox Injection Details Indication: overactive bladder Total number of injections: 5 Total number of units: 100 Post-Procedure Details Catheter placed: no Appearance of urine after procedure: clear Outcome: patient tolerated procedure well with no complications Disposition: discharged home in satisfactory condition Additional Details Lot number [id number], expiration 12-26. Sandie Ho [id number] Preoperative Diagnosis: Urinary Urgency Incontinence, Frequency Postoperative Diagnosis: Same Surgeon: Tia Anglin MD Sulfur Chloride Operator:none Estimated Blood Loss: Minimal Complications: None Indications [...] times 3. Affect normal. documented in this [facility] Work Phone: 1(902) 433-622701-18-2024 History of Present illness Narrative* Tia Anglin MD MPH - 07/20/2023 2:30 PM EST [facility] Department of Urogynecology Tia Anglin MD, MPH [phone] ASSESSMENT AND PLAN: 83 year old female [...] with Dr. Tia Anglin in office @ [facility]. . BPS, IC - History: The patient [...] + intradetrusor Botox injection of 100U @ [facility]. Scribe Attestation By signing my name below, [...] - 02/15/2023 Dr. Kaylee Coker @ [facility] note reviewed: Concern for hematuria. It [...] mg capsule Take by mouth. Historical Provider, geekfdw-lunqsvfnbqted-xcisaeaw (Excedrin Migraine) 250-250-65 mg tablet Take 1 [...] at bedtime for sleep. Historical Provider, HYDROcodone-acetaminophen ([place]) 5-325 mg tablet Take 1 tablet by [...] 07/11/23 07/10/24 Juju Hamm DO mv-mn/folic acid/vit [id number]/gcwz350 (ALIVE ONCE DAILY WOMEN 50 PLUS ORAL) [...] recorded (lmp unknown). Patient is postmenopausal. Declines physical aerodynamicist for physical exam. Well developed, well nourished, [...] diameter. Urethra: Fullness absent, Masses absent. Negative JEEP DRIVER in the supine position. Bladder: Fullness absent, [...] 1 Rectal exam: Deferred. documented in this [facility] Work Phone: 1(994) 794-915501-09-2024 History of Present illness Narrative* Juju Hamm, - 07/11/2023 9:00 AM EST Subjective Patient ID: Sandie Ho is a 83 y.o. female who presents for Follow-up (Patient was in [facility] for a GI bleed in June 2023. 6.7 Hemoglobin. Initially went for knee issues, after having blood work they admitted for low Hemoglobin. Got 2 units of blood.). HPI He was recently hospitalized at [facility] in mid June with acute anemia. Hemoglobin [...] found to have ischemic colitis while at [facility] in the summer. I did have a chance to review those records prior to this visit and her visit was consistent with ischemic colitis by biopsy. Follow-up CT scan was just done at [facility] showed normal colonic anatomy and normal vascular [...] in 2 weeks. Advised her to begin cvcy-yur-vdjliqz magnesium oxide 200 mg daily. Will follow-up with neurology for Botox injections regarding hermigraines. Try to reduce use of Excedrin as able continue long-term PPI therapy. Follow-up with urogynecology regarding bladder instability. Otherwise follow-up with myself in 6 months Juju Hamm DO 07/11/23 9:33 AM documented in this [facility] Work Phone: [phone]) 131-561212-27-2023 Discharge summary Author Christian Blood [facility] June 28, 2023 9:22pm Note Date/Time June 28, 2023 9:17pm [facility] Medical Records Department [address] [address] Emergency Department Summary 06/28/23 MR#: [id number] Acct: [id number] Name: SANDIE HO #:[id number] : 1940 83 From: Christian Blood MD [...] able. She denies any other new problems. [facility] Medical History Back pain Chronic headaches COPD [...] discharge from the hospital, or the [facility] surgeon who did your knees) What to do if you have Problems For any increased pain, shortness of breath, bleeding, nausea or vomiting, chestpain, or any unexpected problems, contact your Primary Care Provider. Call [facility] ([phone]) or report to the closest Emergency Room. Call 911 if necessary. 06/28/232121 <Electronically signed by Christian Blood MD> Cosigner Signature (if applicable): CC: Dr. Sergio Bailey MD; Dr. Parish Arias MD ~ Signed [facility] Work Phone: 1(875) 378-606012-18-2023 History of Present illness Narrative* Juju Hamm, DO - 06/19/2023 2:15 PM EST Subjective Patient ID: Sandie Ho is a 83 y.o. female who presents for ischemic colitis (In January had rectal bleeding and abdominal pain, poor appetite. Was seen at the [place] ER and transferred to [facility] and admitted 4 days diagnosed with ischemic colitis. EGD and colonoscopy on 02/16 no sourceof GI bleed revealed. ? Barretts esophagus on EGD). HPI And is a pleasant 83-year-old female with longstanding spinal stenosis she has no chronic narcoticsfor same. Currently controlled with Saulsbury 5 mg 4 times daily. Was hospitalized [...] DO 06/19/23 5:14 PM [facility] Phone: 1(774) 909-304610-20-2023 History of Present illness Narrative* Sangeeta Sim MD - 04/21/2023 4:33 PM EDT Sandie Ho 1940 REFERRING PHYSICIAN: No ref. provider found CHIEF COMPLAINT: Consult (Ischemic Colitis) HPI: The patient is a 82 year old female with a complaint of severe generalized abdominal pain. She had undergone workup at [facility] in January of this year with CT scan, EGD/colonoscopy and was diagnosed with ischemic colitis. She presents with her daughter for treatment of this pain. She points to the mid abdomen and all throughout for this pain. She states that it comes and goes. She also complains of headache. They do not wish to return to [facility], the daughter states that she [...] SURGICAL HISTORY OF 2014 R THR - [place] PAST SURGICAL HISTORY OF Right 07/2014 total [...] x5 Coronary Artery Disease Brother aged 52, [place] Diabetes Brother Type II No Family History Other Colon Cancer/Polyps The review of systems data was entered by the nurse and reviewed by la Nursing Notes: Monika Fontanez LPN 04/21/2023 4:27 [...] (98.6 F), height 165.1 cm (5' 5), xojhss59.8 kg (116 lb 6.4 oz), SpO2 96 [...] they didn't want to go back to [facility] The patient's daughter states that she was told by someone who answers phones that I could help andtreat the patient. I have explained that there is no indication for surgery and that the patient would be best treated by a shipping/receiving clerk. I have explained that the patient should stop her NSAID use, but then the patient's daughter said that the doctors at [facility] told her otherwise. The patient's daughter was [...] Straightforward Sangeeta Sim MD documented [facility] Nurse Note* Monika Fontanez LPN - [...] 01/2023 Monika Fontanez LPN documented in this [facility]Van [facility]10-14-2023 NoteHNO ID: [id number] Author: Note, Interface Service: ? Author Type: ? Type: Progress Notes Filed: 04/15/2023 5:26 AM Note Text: Epic Scheduled Downtime: 04/15/2023 1:00:00 AM to 04/15/2023 1:28:00 [facility]08-23-2023 Miscellaneous Notes* Telephone Encounter - Zoie Mckeon RN - 02/22/2023 11:21 AM EDT PATIENT INFORMATION Record ID: [id number] Patient [facility]: [facility]: [facility] Moore: [facility] Attending: Milla Yu Center: Hospital Medicine INSTRUCTIONS All Clear SN to remind patient of next upcoming appointment date, time, location All Clear All Clear All Clear SURVEY INFORMATION Medical/Nurse Sulfur Chloride Operator: Zoie Mckeon 1. Your discharge instructions [...] symptoms? (Standard Question) No documented in this encounterVan [facility]08-19-2023 NoteHNO ID: [id number] Author: Milla Yu MD Service: Hospital Medicine [...] pathology report is indeterminate Other, please specify [facility]08-19-2023 Note HNO ID: [id number] Author: Nikia Merchant APRN.VALVE LAPPER Service: Gastroenterology Author Type: Nurse Practitioner Type: Progress Notes Filed: 02/24/2023 7:25 AM Note Text: Documentation Query Based on your medical judgment of the clinical indicators outlined below, please clarify the condition: (Please type X next to your response and sign) Clinical Indicators: 02/17 POC note Nikia VALLE EGD revealed [place]-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 02/16 Surgical pathology updated 02/23 Dr. [...] Ruled In Diagnosis Ruled Out Other, please specify[facility]08-18-2023 NoteHNO ID: [id number] Author: Nikia Merchant APRN.VALVE LAPPER Service: Gastroenterology Author Type: Nurse Practitioner Type: Plan of Care Filed: 02/17/2023 5:08 PM Note Text: GI following for GI bleed. S/p EGD/ Colonoscopy yesterday with Dr. Obando. Colonoscopy with Segmental moderate inflammation was found in the sigmoid colon and in the descending colon secondary to ischemic colitis. Biopsied. 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 Biopsied. CTA completed today demonstrating No [...] will sign off. GI Attending: Dr. Sullivan [facility]08-18-2023 NoteHNO ID: [id number] Author: Daysi De Jesus RN Service: Care [...] 17, 2023 TIME: 4:42 PM PAGER/CONTACT #: [phone]-2023 NoteHNO ID: [id number] Author: Milla Yu MD Service: Hospital Medicine Author Type: Physician Type: Progress Notes Filed: 02/17/2023 12:01 PM Note Text: DEPARTMENT OF HOSPITAL MEDICINE PROGRESS NOTE SERVICE DATE: 02/17/2023 Hospital Medicine/Primary Attending: Milla Carney MD NIGHT AND WEEKEND COVERAGE: After 7pm please page [phone] SUBJECTIVE: patient complains of sharp left sided [...] TID PRN sodium chloride 0.65 % 2 [place] 2 [place] EACH NOSTRIL PRN prochlorperazine 10 mg injection [...] NAME: Sandie Ho PAGER/CONTACT #: Sound team [facility]08-17-2023 NoteHNO ID: [id number] Author: Milla Yu MD Service: Hospital Medicine [...] TID PRN sodium chloride 0.65 % 2 [place] 2 [place] EACH NOSTRIL PRN prochlorperazine 10 mg injection [...] NAME: Sandie Ho PAGER/CONTACT #: Jennifer team [facility]08-17-2023 NoteHNO ID: [id number] Author: Hoda Gunn APRN.NISSAN SALES CONSULTANT Service: Anesthesiology Author Type: Nurse Associate Data Scientist Type: Anesthesia Procedure Notes Filed: 02/16/2023 11:44 AM Note Text: ANESTHESIOLOGY PROCEDURE NOTE PIV General Information Procedure Start Time/Medication Administration: 02/16/2023 11:24 AM Staffing NISSAN SALES CONSULTANT: Jacque Marin APRN.NISSAN SALES CONSULTANT Performed by: FERNANDA Preparation Sterility Preparation: hand [...] February 16, 2023 TIME: 11:44 AM CSN: [id number]-2023 NoteHNO ID: [id number] Author: Daysi De Jesus RN Service: Care Management Author Type: Registered Nurse Type: Care Mgt Initial Assessment Filed: 02/15/2023 3:57 PM Note Text: CARE MANAGEMENT: ASSESSMENT AND DISCHARGE PLAN SERVICE DATE: February 15, 2023 SERVICE TIME: 155 PCP: Sergio Bailey MD Primary Contact: Extended Emergency Contact Information Primary Emergency Contact: AloBladimir Address: [address] [place] [address] Mobile Relation: Spouse Secondary Emergency Contact: Ro Wilkins Mobile Relation: Daughter Admission Status: Inpatient Insurance Provider: SHANDRA DUKE Discharge Planning requested by: Per Department Practice Potential Transition Plans To Be Determined Advance Directives Current Advance Directive: Health Care Power of Paperhanger Pipe In Chart: Yes Up To Date and [...] to go home, Independent living, Less pain [place] of Choice Explained: [place] of Choice Given: No Reason Not Given: [...] January. + DME, + RX coverage, uses [facility] in [place]. Goal is to return home at d/c. Family to provide transportation home. Will continue to follow. SIGNATURE: Daysi De Jesus RN PATIENT NAME: Sandie Ho DATE: February 15, 2023 TIME: 3:54 PM CONTACT #: [phone]08-16-2023 Note HNO ID: [id number] Author: Milla Yu MD Service: Hospital Medicine Author Type: Physician Type: Progress Notes Filed: 02/15/2023 12:49 PM Note Text: DEPARTMENT OF HOSPITAL MEDICINE PROGRESS NOTE SERVICE DATE: 02/15/2023 SERVICE TIME: 12:46 PM Hospital Medicine/Primary Attending: Milla Carney MD NIGHT AND WEEKEND COVERAGE: After 7pm please page [phone] SUBJECTIVE: patient continues to have headache , [...] TID PRN sodium chloride 0.65 % 2 [place] 2 [place] EACH NOSTRIL PRN prochlorperazine 10 mg injection [...] TIME: 12:46 PM PAGER/CONTACT #: Jennifer borrero [facility] 01-25-2023 History and physical note Author Valentina Palomares [facility] January 25, 2023 10:32pm Note Date/Time January 25, 2023 8:30 pm [facility] Medical Records Department [address] [place] [address] H&P Exam - Hospitalist 01/25/232025 MR#: [id number] Acct: [id number] Name: SANDIE HO Rep #:[id number] : 1940 82 From: Valentina Palomares MD [...] chronic buprenorphine patch who presents to the [facility] ED on 01/25/23 with history of [...] ED patient administered a full-strength aspirin therapy. [facility] Medical History (Updated 01/25/23 @ 22:29 by [...] 41.5 L, Lymph % (Auto) 43.3 H, Page % (Auto) 10.2 H, Eos % (Auto) [...] chronic buprenorphine patch who presents to the [facility] ED on 01/25/23 with history of [...] Code status. Charges/Coding Visit Charges Inpatient E&M: 67938 Init Hosp L2 01/25/232231 <Electronically signed by Valentina Palomares MD> Cosigner Signature (if applicable): CC: Dr. Valentina Palomares MD; Dr. Sergio Bailey MD~ Signed [facility] Work Phone: 1(582) 507-456407-26-2023 Discharge summary Author Jean Morales [facility] January 25, 2023 9:54pm Note Date/Time January 25, 2023 3:55 pm [facility] Medical Records Department [address] [place] [address] Emergency Department Summary 01/25/23 MR#: [id number] Acct: [id number] Name: SANDIE HO Rep #:[id number] : 1940 82 From: Jean Gottlieb PCP: Dr. Sergio Bailey MD Status:REG ER Location: ED HPI History of Present Illness Chief Complaint: Chest Pain [facility] Medical History (Updated 01/25/23 @ 21:54 by [...] reviewed: EKG reviewed from March 2020, Last [id number] had ejection fraction 55% Factors affecting care: [...] pathognomonic EKG changes (no diffuse ST elevations, DC depressions). GI etiology (i.e. Boerhaave syndrome) less [...] 41.5 L Lymph % (Auto) 43.3 H Page % (Auto) 10.2 H Eos % (Auto) [...] Provider] - Disposition Disposition: Acute Care Hospital [facility] What to do if you have Problems For any increased pain, shortness of breath, bleeding, nausea or vomiting, chestpain, or any unexpected problems, contact your Primary Care Provider. Call [facility] ([phone]) or report to the closest Emergency Room. Call 911 if necessary. 01/25/232153 <Electronically signed by Jean Morales DO> Cosigner Signature (if applicable): CC: Dr. Sergio Bailey MD ~ Signed [facility] Work Phone: 1(305) 822-290112-19-2022 Miscellaneous Notes* Telephone Encounter - Ludmila Dukes MA - 06/20/2022 12:17 PM EST Patient returned phone call, notified of urine culture results, verbalized understanding of instructions given and to lemon picker script at [facility]. Ludmila Dukes MA * Telephone Encounter [...] Prescription sent to [facility]. Shelbi Lei APRN.SHANDRA documented in this encounterVan [facility]12-16-2022 Miscellaneous Notes* Telephone Encounter - Mecca [...] helping. Please advise and call patient at [phone]. Lay Bailey LPN documented in this encounterVan [facility]ert [facility]12-16-2022 Instructions* Patient Instructions* García Alvarez APRN.SHANDRA [...] not contaminate your hand documented in this encounterVan [facility]ert [facility]12-16-2022 History of Present illness Narrative* García [...] SURGICAL HISTORY OF 2014 R THR - [place] PAST SURGICAL HISTORY OF Right 07/2014 total [...] D ORAL) Take by mouth once daily. Qkroibj-Hgzpbikwkokty-Tufcktud (EXCEDRIN MIGRAINE) 250-250-65 mg per tablet Take [...] x5 Coronary Artery Disease Brother aged 52, [place] Diabetes Brother Type II No Family History [...] swelling or pain on movement. Mouth/Throat: Lips: [place]. Mouth: Mucous membranes are moist. Pharynx: Oropharynx [...] of care. This note was generated using [email or web address].com software. It may contain errors in wording, punctuation, or spelling. 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 Sofia Delgado PA-C documented in this encounterVan [facility]ert [facility]11-11-2022 Miscellaneous Notes* Telephone Encounter - Sangeeta Sim MD - 05/13/2022 4:23 PM EST Left message on AM that HIDA scan was normal. documented in this encounterVan Wert [facility]11-10-2022 History of Present illness Narrative* Delmy [...] 10:33 AM PAGER/CONTACT #: documented in this encounterVan Wert [facility] Hospital11-07-2022 History of Present illness Narrative* Ian Holley PA-C - 05/09/2022 8:46 AM EST Images from the original note were not included. Ortho Hip Follow Up Note Narrative Referring Provider: Kassi Campbell [address] [facility] [address] PCP: Sergio Bailey MD, MD IMPRESSION/PLAN: Impressions [...] HPI: Sandie Ho presents today for a intermediate manager follow-up visit. The patient states she [...] days 05/04/22 Fantasma Arthur DO; Sergio Serge..., [id number] Hip pain ..., ED to Hosp- Admission [...] 4 4 Planned treatment interventions Therapeutic exercise (78357);Neuromuscular re- education (24517);Manual therapy (73385);Therapeutic activities (88350);Self- snf management (71023);Patient/Family/Caregiver Education;Body Mechanics Training Therapeutic exercise (55464);Neuromuscular re-education (19921);Manual therapy (73296);Therapeutic activities (12500);Self-snf management (29346);Patient/Family/Caregiver Education;Gait Training (34116);Body Mechanics Training Therapeutic exercise (78617);Neuromuscular re-education (02432);Manual therapy (31782);Therapeutic activities (60061);Self-snf management (59659);Patient/Family/Caregiver Education;Body Mechanics Training Plan for next visit [...] by: Ian Holley PA-C documented in this encounterVan Wert [facility] Hospital10-19-2022 Miscellaneous Notes* Telephone Encounter - David Mayer RN - 04/20/2022 7:00 PM EDT Pt called in about setting up Hida scan. Please call and help Pt. documented in this encounterVan Wert [facility] Hospital10-12-2022 Miscellaneous Notes* Telephone Encounter - Sangeeta [...] She agrees to proceed. documented in this encounterVan [facility]ert [facility]10-10-2022 History of Present illness Narrative* Jocy [...] 11, 2022 2:17 PM documented in this encounterVan Wert [facility] Hospital09-16-2022 Miscellaneous Notes* Telephone Encounter - Sangeeta Sim MD - 03/18/2022 4:31 PM EDT Attempted to contact patient with results of upper and lower endoscopy. Voicemail identified my number only, therefore did not leave message due to HIPAA. documented in this encounterVan Wert [facility] Hospital08-22-2022 Miscellaneous Notes* Telephone Encounter - Deanna Steele - 02/21/2022 11:03 AM EDT Order did not drop in depot. Entered as optime * Addendum Note - Deanna Steele - 02/21/2022 11:02 AM EDTAddended by: DEANNA STEELE on: 02/21/2022 11:02 AM Modules accepted: Orders * Telephone Encounter - Deanna Steele - 02/21/2022 10:56 AM EDT 03/10 colon/egd lodi documented in this encounterVan Wert [facility] Hospital08-22-2022 Nurse Note* Mecca Gomez LPN - [...] 2015 Mecca Gomez LPN documented in this encounterVan Wert County Hospital08-22-2022 History of Present illness Narrative* David [...] every 8 hours as needed for Nausea/Vomiting. Rgxjfmo-Vwqpnktwubtbk-Fctltntk (EXCEDRIN MIGRAINE) 250-250-65 mg per tablet Take [...] x5 Coronary Artery Disease Brother aged 52, [place] Diabetes Brother Type II No Family History [...] patient was offered a surgery/procedure at a [facility]. I have counseled the patient regarding the [...] which included preparing to see the patient, aahx-uz-zedn patient care, completing clinical documentation, obtaining and/or [...] time. Sydney Klein LPN documented in this encounterVan Wert [facility] Hospital05-18-2022 History of Present illness Narrative* Ian [...] D ORAL) Take by mouth once daily. Tlhfdwq-Tutzyrooqpuiv-Tvebbfwk (EXCEDRIN MIGRAINE) 250-250-65 mg per tablet Take [...] dysf, normal valves. COLONOSCOP W/ OR W/O [facility] SPEC Colonoscopy CYSTO.PANENDO Cystoscopy KNEE SCOPE,DIAGNOSTIC 06/2010 Arthroscopy, knee PAST SURGICAL HISTORY OF R THR x 3 PAST SURGICAL HISTORY OF Bilat TKR PAST SURGICAL HISTORY OF L Hip pinning (later removed) PAST SURGICAL HISTORY OF Heart Cath PAST SURGICAL HISTORY OF Dilation of left ureter PAST SURGICAL HISTORY OF 05/13 L knee revision PAST SURGICAL HISTORY OF 2014 R THR - [place] PAST SURGICAL HISTORY OF Right 07/2014 total hip replacement ORTHOPEDIC SPECIFIC PROBLEMS: As above FAMILY HISTORY: FAMILY HISTORY Problem Relation Age of Onset Cancer Father Coronary Artery Disease Father Early 70's CABG x5 Coronary Artery Disease Brother aged 52, [place] Diabetes Brother Type II No Family History [...] agree with the plan. 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 States she forgot to do her HEP [...] upon. Bridger Spencer PT documented in this encounterVan Wert County Hospital03-30-2022 History of Present illness Narrative* Bridger [...] Planned: 4 Planned Treatment Interventions: Therapeutic exercise (83155);Neuromuscular re- education (48199);Manual therapy (61310);Therapeutic activities (90809);Self- snf management (34519);Patient/Family/Caregiver Education;Body Mechanics Training PLAN FOR NEXT VISIT: [...] upon. Bridger Spencer PT documented in this encounterVan Wert County Hospital03-25-2022 History of Present illness Narrative* Bridger [...] Patient to be seen for Therapeutic exercise (39065);Neuromuscular re-education (94181);Manual therapy (94239);Therapeutic activities (44755);Self-snf management (26464);Patient/Family/CaregiverEducation;Gait Training (99775);Body Mechanics Training PLAN FOR NEXT VISIT: Continue [...] 39 Bridger Spencer PT [facility] of Present illness Narrative* Kiarra [...] 21, 2021 11:36 AM [facility] Diagnosis Cervical spondylosis without myelopathy- Primary Spinal stenosis of lumbar region, unspecified whether neurogenic claudication present Lumbar spondylosis Lumbosacral spondylosis without myelopathy documented [facility]* Diagnosis Cervical spondylosis without myelopathy- Primary Spinal stenosis of lumbar region, unspecified whether neurogenic claudication present Lumbar spondylosis Lumbosacral spondylosis without myelopathy documented in [facility]* Diagnosis Pain- Primary Generalized pain documented in this [facility]* Diagnosis Trochanteric bursitis of both hips- Primary Enthesopathy of hip region History of total hip arthroplasty, 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 documented in this encounter [facility] note* Diagnosis Pain Generalized pain documented in [facility] encounter [facility] noteNo assessment information availableWC[facility] Work Phone: Evaluation note* Diagnosis Abdominal pain, unspecified abdominal location- Primary Change in bowel habits Other symptoms involving digestive system documented in [facility]* Diagnosis Generalized abdominal pain- Primary Abdominal pain, generalized Change in bowel habits Other symptoms involving digestive system Abdominal pain, unspecified abdominal location Change in bowel habits Other symptoms involving digestive system [facility] Diagnosis RUQ abdominal pain Abdominal pain, right upper quadrant documented in [facility]* Diagnosis RUQ abdominal pain- Primary Abdominal pain, right upper quadrant documented in [facility]* Diagnosis Trochanteric bursitis of right hip- Primary Enthesopathy of hip region 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 documented in this [facility]* Diagnosis Urinary frequency- Primary documented in [facility]* Diagnosis Pharyngitis, unspecified etiology- Primary [facility]* Diagnosis Onset Date Resolution Status Chest pain [facility] Work Phone: Evaluation note* Diagnosis Onset Date Resolution Status Chest pain resolved [facility] Work Phone: Evaluation note* Diagnosis Continuous severe abdominal pain- Primary Abdominal pain, unspecified site Ischemic colitis (HCC) Unspecified vascular insufficiency of intestine [facility] Diagnosis RUQ abdominal pain Abdominal pain, right upper quadrant [facility]* Diagnosis Pain Generalized pain Status post total replacement of both hips [facility]* Diagnosis Onset Date Resolution Status Chronic ischemic colitis acu te Acute cystitis without hematuria acute Acute pain of right knee acu te Anemia requiring transfusions acute History of total knee arthroplasty acute Inability to ambulate due to right knee acute Knee effusion, right acute Positive fecal occult blood test acute [facility] Work Phone: Evaluation note* Diagnosis Onset Date Resolution Status Chronic ischemic colitis acu te Acute cystitis without hematuria acute Acute pain of right knee acu te History of total knee arthroplasty acute Inability to ambulate due to right knee acute Knee effusion, right acute Positive fecal occult blood test acute Anemia requiring transfusions resolved [facility] Work Phone: Evaluation note* Diagnosis Irritable bowel syndrome with constipation- Primary Irritable bowel syndrome Ischemic colitis (CMS/HCC) Peptic ulcer Peptic ulcer, unspecified site, unspecified as acute or chronic, without mention of hemorrhage, perforation, or obstruction documented in this encounter [facility] Work Phone: Evaluation note* Diagnosis Bladder pain- Primary Other symptoms involving urinary system Pelvic floor dysfunction in female OAB (overactive bladder) documented in this encounter [facility] Work Phone: Evaluation note* Diagnosis OAB (overactive bladder)- Primary documented in this encounter [facility] Work Phone: Evaluation note* Diagnosis OAB (overactive bladder)- Primary documented in this encounter [facility] Work Phone: [phone] note* Diagnosis Gastroesophageal reflux disease with esophagitis and hemorrhage- Primary 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 Esophageal dysphagia Dysphagia, pharyngoesophageal phase documented in this encounter [facility] Work Phone: Evaluation note* Diagnosis Recurrent UTI- Primary Urinary tract infection, site not specified OAB (overactive bladder) Hypertonicity of bladder [facility] Diagnosis Ischemic colitis (CMS/HCC)- Primary Gastroesophageal reflux disease without esophagitis Esophageal reflux 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 documented in this encounter [facility] Work Phone: [phone] note* Diagnosis Mariah esophagitis (Multi)- Primary Candidiasis of the esophagus Dysphagia, unspecified type documented in this encounter [facility] Work Phone: Evaluation note* Diagnosis Recurrent UTI- Primary Urinary tract infection, site not specified OAB (overactive bladder) Urge incontinence of urine Urge incontinence documented in this encounter [facility] Work Phone: Evaluation note* Diagnosis Overactive bladder- Primary Hypertonicity of bladder Urge incontinence of urine Urge incontinence documented in this encounter [facility] Work Phone: Evaluation note* Diagnosis Pre-op exam- [...] history of tobacco use, presenting hazards to [facility] Headache, unspecified headache type Gastroesophageal reflux disease without esophagitis Esophageal reflux Severe episode of recurrent major depressive disorder, without psychotic features (HCC) OAB (overactive bladder) 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- Primary History of left hip replacement [facility] Diagnosis Pre-op exam- Primary Preoperative [...] Tearing of muscle [facility]* Diagnosis Pre-op exam- Primary Preoperative examination, [...] left hip replacement [facility]* Diagnosis Pre-op exam- Primary Preoperative examination, [...] hematuria Acute cystitis [facility]* Diagnosis Pre-op exam- Primary Preoperative examination, [...] site not specified [facility]* Diagnosis Pre-op exam- Primary Preoperative examination, [...] site not specified [facility] Additional Instructions Follow-up with your endoscopy in 1 week.[facility] Work Phone: Hospital Discharge instructions Additional Instructions Please follow-up with your pain management doctor tomorrow (call the office). I spoke with Dr. Mary durbin. You have been given an extra prescription for 3-day supply of [place] to take every 6 hours as needed for pain.[facility] Work Phone: Reason for referral (narrative)* Diagnostic Procedure Only (Routine) - Authorized Specialty Diagnoses / Procedures Referred By Contac t Referred To Contact XR IMAGING Diagnoses Pain Procedures XR HIP BILATERAL 5V PEL/AP/LAT EACH HIP RADEX HIPS BILATERAL WITH PELVIS MINIMUM 5 VIEWS Ian Holley PA-C [address] [place] [address] Xr Imaging Referral ID Status Reason Start Date Expiration Date Visits Requested Visits Authorized [id number] Authorized Auto-Generat ed Referral 11/10/2021 12/10/2022 1 1 [facility] for referral (narrative)* Diagnostic Procedure Only (Routine) - Closed Specialty Diagnoses / Procedures Referred By Contac t Referred To Contact XR IMAGING Diagnoses Pain Procedures XR HIP BILATERAL 5V PEL/AP/LAT EACH HIP RADEX HIPS BILATERAL WITH PELVIS MINIMUM 5 VIEWS Ian Holley PA-C [address] [place] [address] Xr Imaging Referral ID Status Reason Start Date Expiration Date V isits Requested Visits Authorized [id number] Closed Auto-Generate d Referral 11/10/2021 12/10/2022 1 1 [facility] for referral (narrative)* Outpatient Procedure (Routine) - Pending Review Specialty Diagnoses / Procedures Referred By Contac t Referred To Contact [facility] Diagnoses Abdominal pain, unspecified abdominal location Change in bowel habits Procedures COLONOSCOPY SCREENING COLONOSCOPY SCREENING COLONOSCOPY SCREENING COLONOSCOPY FLX DX W/COLLJ SPEC WHEN PFRMD David Beltran PA-C [address] [place] [address] [facility] [address] [place] [address] Referral ID Status Reason Start Date Expiration Date Visits Requested Visits Authorized [id number] Pending Review Auto-Generat ed Referral 02/21/2022 02/21/2023 1 1 * Outpatient Procedure (Routine) - Pending Review Specialty Diagnoses / Procedures Referred By Contac t Referred To Contact [facility] Diagnoses Abdominal pain, unspecified abdominal location Change in bowel habits Procedures EGD DIAGNOSTIC EGD DIAGNOSTIC EGD DIAGNOSTIC ESOPHAGOGASTRODUODENOSC OPY TRANSORAL DIAGNOSTIC David Beltran PA-C [address] [place] [address] [facility] [address] [place] [address] Referral ID Status Reason Start Date Expiration Date Visits Requested Visits Authorized [id number] Pending Review Auto-Generat ed Referral 02/21/2022 02/21/2023 1 1 [facility] for referral (narrative)* Diagnostic Procedure Only (Routine) - Closed Specialty Diagnoses / Procedures Referred By Contac t Referred To Contact US IMAGING Diagnoses RUQ abdominal pain Procedures US ABD RT UPPER QUADRANT US ABDOMINAL REAL TIME W/IMAGE LIMITED Sangeeta Sim MD [address] [place] [address] Us Imaging Referral ID Status Reason Start Date Expiration Date V isits Requested Visits Authorized [id number] Closed Auto-Generate d Referral 03/25/2022 04/24/2023 1 1 [facility] for referral (narrative)* Diagnostic Procedure Only (Routine) - Pending Review Specialty Diagnoses / Procedures Referred By Contac t Referred To Contact MOLECULAR & FUNCTIONAL IMAGING Diagnoses RUQ abdominal pain Procedures NM HEPATOBILIARY W EF AND/OR RX HEPATOBIL SYST IMAG INC GB W/PHARMA INTERVENJ Sangeeta Sim MD [address] [place] [address] Molecular & Functional Imaging [address] [id number] Referral ID Status Reason Start Date Expiration Date Visits Requested Visits Authorized [id number] Pending Review Auto-Generat ed Referral 05/13/2023 1 1 [facility] for referral (narrative)* Diagnostic Procedure Only (Routine) - Closed Specialty Diagnoses / Procedures Referred By Contac t Referred To Contact [facility]LECULAR [facility] FUNCTIONAL [facility]AGING Diagnoses RUQ abdominal pain Procedures NM HEPATOBILIARY W EF AND/OR RX HEPATOBIL SYST IMAG INC GB W/PHARMA Sangeeta Lockhart MD [address] [place] [address] Molecular & Functional Imaging [address] [place] [address] Referral ID Status Reason Start Date Expiration Date V isits Requested Visits Authorized [id number] Closed Auto-Generate d Referral 04/13/2022 05/13/2023 1 1 [facility] Consultation (Routine) - Authorized Specialty Diagnoses / Procedures Referred By Contac t Referred To Contact Gastroenterology Diagnoses Irritable bowel syndrome with constipation Ischemic colitis (CMS/HCC) Peptic ulcer Procedures Follow Up In Gastroenterology Juju Hamm, [address] [facility], [address] [address] Referral ID Status Reason Start Date Expiration Date V isits Requested Visits Authorized [id number] Authorized 07/11/2023 07/10/2024 1 1 [facility] Work Phone: Reason for referral (narrative)* Diagnostic Procedure Only (Routine) - Authorized Specialty Diagnoses / Procedures Referred By Contac t Referred To Contact XR IMAGING Diagnoses 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 Procedures XR HIP GENERAL 3V PELV/AP/LAT LEFT RADEX HIP UNILATERAL WITH PELVIS 2-3 VIEWS Jeevan Funez PA-C [address] [place] [address] [place] [address] Referral ID Status Reason Start Date Expiration Date Visits Requested Visits Authorized [id number] Authorized Auto-Generat ed Referral 4 07/31/2025 1 1 * Diagnostic Procedure Only (Routine) - Authorized Specialty Diagnoses / Procedures Referred By Sienna morales Referred To Contact XR IMAGING Diagnoses 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 Procedures XR KNEE POST OP 3V AP/LAT/MERCHANT LEFT RADIOLOGIC EXAMINATION KNEE 3 VIEWS Jeevan Funez PA-C [address] [place] [phone] [place] [address] Referral ID Status Reason Start Date Expiration Date Visits Requested Visits Authorized [id number] Authorized Auto-Generat ed Referral 4 07/31/2025 1 1 [facility] Diagnostic Procedure Only (Urgent) - New Request Specialty Diagnoses / Procedures Referred By Sienna morales Referred To Contact US IMAGING Diagnoses Status post revision of total replacement of left knee Procedures US KNEE/DISTAL THIGH LEFT US COMPL JOINT R-T W/IMAGE DOCUMENTATION Jeevan Funez PA-C [address] [place] [phone] [place] [address] Referral ID Status Reason Start Date Expiration Date Visits Requested Visits Authorized [id number] New Request Auto-Generat ed Referral 07/05/2024 08/04/2025 1 1 * Diagnostic Procedure Only (Routine) - New Request Specialty Diagnoses / Procedures Referred By Sienna morales Referred To Contact XR IMAGING Diagnoses Status post revision of total replacement of left knee Procedures XR PELVIS 1V AP RADIOLOGIC EXAMINATION PELVIS 1/2 VIEWS Jeevan Funez PA-C [address] [place] [address] [place] [address] Referral ID Status Reason Start Date Expiration Date Visits Requested Visits Authorized [id number] New Request Auto-Generat ed Referral 08/01/2025 1 1 * Diagnostic Procedure Only (Routine) - New Request Specialty Diagnoses / Procedures Referred By Sienna morales Referred To Contact XR IMAGING Diagnoses Status post revision of total replacement of left knee Procedures XR KNEE POST OP 3V AP/LAT/MERCHANT LEFT RADIOLOGIC EXAMINATION KNEE 3 VIEWS Jeevan Funez PA-C [address] [place] [phone] [place] [address] Referral ID Status Reason Start Date Expiration Date Visits Requested Visits Authorized [id number] New Request Auto-Generat ed Referral 08/01/2025 1 1 [facility] Diagnostic Procedure Only (Routine) - Closed Specialty Diagnoses / Procedures Referred By Sienna morales Referred To Contact XR IMAGING Diagnoses 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 Procedures XR HIP GENERAL 3V PELV/AP/LAT LEFT RADEX HIP UNILATERAL WITH PELVIS 2-3 VIEWS Jeevan Funez PA-C [address] [place] [phone] [place] [address] Referral ID Status Reason Start Date Expiration Date V isits Requested Visits Authorized [id number] Closed Auto-Generate d Referral 07/01/2024 07/31/2025 1 1 * Diagnostic Procedure Only (Routine) - Closed Specialty Diagnoses / Procedures Referred By Sienna morales Referred To Contact XR IMAGING Diagnoses 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 Procedures XR KNEE POST OP 3V AP/LAT/MERCHANT LEFT RADIOLOGIC EXAMINATION KNEE 3 VIEWS Jeevan Funez PA-C [address] [place] [address] [place] [address] Referral ID Status Reason Start Date Expiration Date V isits Requested Visits Authorized [id number] Closed Auto-Generate d Referral 07/01/2024 07/31/2025 1 1 [facility] for referral (narrative)No reason for referral information [facility]WC[facility] Work Phone: Summary Purpose Family History [...] FoundDocuments on File Type Date Recorded Patient Binding End Stitcher Expl anation Advance Directive(s) 05/04/2022 2:06 PM Date Activated Date Inactivated Comments 05/04/2022 5:35 PM 05/06/2022 8:28 PM Question Answer Comments Full Code Order Discussed With: Patient Date Activated Date Inactivated Comments 12/14/2019 12:47 PM 08/25/2020 11:07 AM Documents on File Type Date Recorded Patient Binding End Stitcher Expl anation Advance Directive(s) 01/20/2017 3:49 PM Latest Code Status on File Code Status Date Activated Date Inactivated Comments Full Code 12/14/2019 12:47 PM 08/25/2020 11:07 AM Documents on File Type Date Recorded Patient Binding End Stitcher Expl anation Advance Directive(s) 12/22/2020 7:16 AM [...] Documents on File Type Date Recorded Patient Binding End Stitcher Expl anation Advance Directive(s) 12/22/2020 7:16 AM [...] Will Yes May 01 7:40am Power of Paperhanger Pipe Yes May 01, 2021 7:40am Documents on File Type Date Recorded Patient Binding End Stitcher Expl anation Advance Directive(s) 01/20/2017 3:49 PM Advance Directive Response Recorded Date/ Time Name of Medical Power of Paperhanger Pipe [facility] March 03, 2022 4:34pm Living Will Yes March 03 4:34pm Power of Paperhanger Pipe Yes March 03, 2022 4:34pm Advance Directive Response Recorded Date/ Time Name of Medical Power of Paperhanger Pipe [facility] March 03, 2022 4:34pm Name of Medical Power of Paperhanger Pipe [facility] March 07, 2022 12:58am Name of Medical Power of Paperhanger Pipe [facility] April 21, 2022 5:21pm Living Will Yes April 21 5:21pm Power of Paperhanger Pipe Yes April 21, 2022 5:21pm Documents on File Type Date Recorded Patient Binding End Stitcher Expl anation Advance Directive(s) 05/04/2022 2:06 PM [...] Will Yes April 21 4:21pm Power of Paperhanger Pipe Yes April 21, 2022 4:21pm Name of Medical Power of Paperhanger Pipe [facility] April 21, 2022 4:21pm Advance Directive Response Recorded Date/ Time Living Will Yes April 21 4:21pm Power of Paperhanger Pipe Yes April 21, 2022 4:21pm Advance Directive Response Recorded Date/ Time Living Will Yes April 21 5:21pm Power of Paperhanger Pipe Yes April 21, 2022 5:21pm Advance Directive Response Recorded Date/ Time Name of Medical Power of Paperhanger Pipe ? January 25, 2023 3:41pm Living Will Yes January 25, 2023 3:41pm Power of Paperhanger Pipe Yes January 25 3:41pm Advance Directive Response Recorded Date/ Time Name of Medical Power of Paperhanger Pipe [place] January 25, 2023 11:19pm Living Will No February 13 11:22am Power of Paperhanger Pipe No February 13, 11:22am Latest Code Status [...] Date/ Time Name of Medical Power of Paperhanger Pipe [place] February 14, 2023 4:54pm Living Will Yes February 14 4:54pm Power of Paperhanger Pipe Yes February 14 023 4:54pm Name of Medical Power of Paperhanger Pipe Ro January 25, 2023 10:19pm Advance Directive Response Recorded Date/ Time Name of Medical Power of Paperhanger Pipe Ro Wilkins June 22, 2023 12:57am Living Will No June 28 8:52pm Power of Paperhanger Pipe No June 28, 2023 8:52pm Advance Directive Response Recorded Date/ Time Living Will No June 28 9:52pm Power of Paperhanger Pipe No June 28, 2023 9:52pm Documents on File Type Date Recorded Patient Binding End Stitcher Expl anation HealthCare Power of Paperhanger Pipe 05/24/2024 1:37 PM Date Activated Date Inactivated Comments 05/04/2022 5:35 PM 05/06/2022 8:28 PM Question Answer Comments Full Code Order Discussed With: Patient Date Activated Date Inactivated Comments 12/14/2019 12:47 PM 08/25/2020 11:07 AM Advance Directive Response Recorded Date/ Time Living Will Yes June 21 11:22am Do you have a Healthcare Pow er of Paperhanger Pipe? Yes June 21, 2024 11:22am Name of Medical Power of Paperhanger Pipe DAUGHTER June 21, 2024 11:22am Advance Directives on File Yes Decem 2023 11:20am Living Will Yes June 10 11:20am Do you have a Healthcare Pow er of Paperhanger Pipe? Yes June 10, 2024 11:20am Name of Medical Power of Paperhanger Pipe Bladimir bhatia June 10, 2024 11:20am Advance Directives Yes June 10, 2024 11:20am Living Will Yes June 17 12:07am Do you have a Healthcare Pow er of Paperhanger Pipe? Yes June 17, 2024 12:07am Name of Medical Power of Paperhanger Pipe daughter June 17, 2024 12:07am Living Will Yes June 17 5:34pm Do you have a Healthcare Pow er of Paperhanger Pipe? Yes June 17, 2024 5:34pm Name of Medical Power of Paperhanger Pipe MARLEEN June 17, 2024 5:34pm Living Will Yes June 20 1:00pm Do you have a Healthcare Pow er of Paperhanger Pipe? Yes June 20, 2024 1:00pm Name of Medical Power of Paperhanger Pipe nkechi [employer] June 20, 2024 1:00pm [...] SURGICAL June 19, 2 024 8:30pm [facility] 06/12June 28, 2024 12:48pm LEFT KNEE, [...] COMPLEX 45 MINS Ian Holley PA-C [address] [place] [address] [facility] [address] [place] [address] Referral ID Status Reason Start Date Expiration Date V isits Requested Visits Authorized [id number] Closed Auto-Generate d Referral 05/13/2022 05/13/2022 1 1 Specialty Diagnoses / Procedures Referred By Sienna morales Referred To Contact Diagnoses OAB (overactive bladder) Tia Anglin MD MPH [address] [facility], [facility] [address] [place] [address] Referral ID Status Reason Start Date Expiration Date V isits Requested Visits Authorized [id number] Pending Review 08/18/2023 08/17/2024 1 1 Specialty Diagnoses / Procedures Referred By Contac t Referred To Contact Diagnoses OAB (overactive bladder) Procedures Cystoscopy with Biospy Injection Tia Anglin MD MPH [address] [facility], [facility] [address] [place] [address] Referral ID Status Reason Start Date Expiration Date V isits Requested Visits Authorized [id number] Pending Review 08/18/2023 08/17/2024 1 1 Referral ID Status Reason Start Date Expiration Date V isits Requested Visits Authorized [id number] Pending Review 08/18/2023 08/17/2024 1 1 Specialty Diagnoses / Procedures Referred By Contac t Referred To Contact Radiology Diagnoses Ischemic colitis (CMS/HCC) Procedures CT angio abdomen w and or wo IV IV contrast Juju Hamm DO [address] [id number] Referral ID Status Reason Start Date Expiration Date Visits Requested Visits Authorized [id number] Pending Review Perform Procedure 3 06/18/2024 1 1 Specialty Diagnoses / Procedures Referred By Contact Referred To Contact Gastroenterology Diagnoses Dysphagia, unspecified type Procedures Esophagogastroduodenoscopy (EGD) DC ESOPHAGOGASTRODUODENOSCOPY TRANSORAL DIAGNOSTIC DC EGD TRANSORAL BIOPSY SINGLE/MULTIPLE Juju Hamm DO [address] [place] [address] Referral ID Status Reason Start Date Expiration Date V isits Requested Visits Authorized [id number] Authorized 12/14/2023 12/13/2024 1 1 Specialty Diagnoses / Procedures Referred By Contac t Referred To Contact Junior Ly MD [address] [place] [address] Referral ID Status Reason Start Date Expiration Date V isits Requested Visits Authorized [id number] Pending Review 12/25/2023 12/24/2024 1 1 Specialty Diagnoses / Procedures Referred By Sienna t Referred To Contact Diagnoses Urge incontinence of urine Radha Calderon MD [address] [id number] Referral ID Status Reason Start Date Expiration Date V isits Requested Visits Authorized [id number] Pending Review 03/28/2024 03/28/2025 1 1 Referral ID Status Reason Start Date Expiration Date V isits Requested Visits Authorized [id number] Pending Review 03/28/2024 03/28/2025 1 1 Health Concerns Infection Onset Date Last Indicated Resolved Time COVID-19 Rule-Out 05/04/2022 05/04/2022 05/04/2022 10:55 PM EDT Additional Source Comments INFORMATION SOURCE (unrecogn ized section and content) DATE CREATED AUTHOR 05/15/2018 [facility] DATE CREATED AUTHOR AUTHOR'S ORGANIZ ATION 06/04/2020 [facility] DATE CREATED AUTHOR AUTHOR'S ORGANIZ ATION 12/22/2020 [facility] DATE CREATED AUTHOR AUTHOR'S ORGANIZ ATION 04/16/2023 [facility] DATE CREATED AUTHOR AUTHOR'S ORGANIZ ATION 09/01/2023 [facility] DATE CREATED AUTHOR AUTHOR'S ORGANIZ ATION 12/15/2023 [facility] DATE CREATED AUTHOR AUTHOR'S ORGANIZ ATION 02/24/2024 [facility] DATE CREATED AUTHOR AUTHOR'S ORGANIZ ATION 04/09/[address] [facility] DATE CREATED AUTHOR AUTHOR'S ORGANIZ ATION 07/12/2024 [facility] DATE CREATED AUTHOR AUTHOR'S ORGANIZ ATION 07/12/2024 [facility] DATE CREATED AUTHOR AUTHOR'S ORGANIZ ATION 11/18/2024 [facility] Source Comments (unrecognize d section and content) In the event this informatio n is protected by the Federal Confidentiality of Alcohol and Drug Abuse Patient Records regulations: The Federal rules restrict any use of the information to criminally investigate or prosecute any alcohol or drug abuse patient.[facility] the event this information is protected by the Federal Confidentiality of Alcohol and Drug Abuse Patient Records regulations: The Federal rules restrict any use of the information to criminally investigate or prosecute any alcohol or drug abuse patient.[facility] the event this information is protected by the Federal Confidentiality of Alcohol and Drug Abuse Patient Records regulations: The Federal rules restrict any use of the information to criminally investigate or prosecute any alcohol or drug abuse patient.[facility]In the event this information is protected by the Federal Confidentiality of Alcohol and Drug Abuse Patient Records regulations: The Federal rules restrict any use of the information to criminally investigate or prosecute any alcohol or drug abuse patient.[facility]In the event this information is protected by the Federal Confidentiality of Alcohol and Drug Abuse Patient Records regulations: The Federal rules restrict any use of the information to criminally investigate or prosecute any alcohol or drug abuse patient.[facility]In the event this information is protected by the Federal Confidentiality of Alcohol and Drug Abuse Patient Records regulations: The Federal rules restrict any use of the information to criminally investigate or prosecute any alcohol or drug abuse patient.[facility]In the event this information is protected by the Federal Confidentiality of Alcohol and Drug Abuse Patient Records regulations: The Federal rules restrict any use of the information to criminally investigate or prosecute any alcohol or drug abuse patient.[facility]In the event this information is protected by the Federal Confidentiality of Alcohol and Drug Abuse Patient Records regulations: The Federal rules restrict any use of the information to criminally investigate or prosecute any alcohol or drug abuse patient.[facility]In the event this information is protected by the Federal Confidentiality of Alcohol and Drug Abuse Patient Records regulations: The Federal rules restrict any use of the information to criminally investigate or prosecute any alcohol or drug abuse patient.[facility]In the event this information is protected by the Federal Confidentiality of Alcohol and Drug Abuse Patient Records regulations: The Federal rules restrict any use of the information to criminally investigate or prosecute any alcohol or drug abuse patient.[facility]In the event this information is protected by the Federal Confidentiality of Alcohol and Drug Abuse Patient Records regulations: The Federal rules restrict any use of the information to criminally investigate or prosecute any alcohol or drug abuse patient.[facility] HospitalIn the event this information is protected by the Federal Confidentiality of Alcohol and Drug Abuse Patient Records regulations: The Federal rules restrict any use of the information to criminally investigate or prosecute any alcohol or drug abuse patient.[facility]In the event this information is protected by the Federal Confidentiality of Alcohol and Drug Abuse Patient Records regulations: The Federal rules restrict any use of the information to criminally investigate or prosecute any alcohol or drug abuse patient.[facility] HospitalIn the event this information is protected by the Federal Confidentiality of Alcohol and Drug Abuse Patient Records regulations: The Federal rules restrict any use of the information to criminally investigate or prosecute any alcohol or drug abuse patient.[facility] HospitalIn the event this information is protected by the Federal Confidentiality of Alcohol and Drug Abuse Patient Records regulations: The Federal rules restrict any use of the information to criminally investigate or prosecute any alcohol or drug abuse patient.[facility] HospitalIn the event this information is protected by the Federal Confidentiality of Alcohol and Drug Abuse Patient Records regulations: The Federal rules restrict any use of the information to criminally investigate or prosecute any alcohol or drug abuse patient.[facility] HospitalIn the event this information is protected by the Federal Confidentiality of Alcohol and Drug Abuse Patient Records regulations: The Federal rules restrict any use of the information to criminally investigate or prosecute any alcohol or drug abuse patient.[facility] HospitalIn the event this information is protected by the Federal Confidentiality of Alcohol and Drug Abuse Patient Records regulations: The Federal rules restrict any use of the information to criminally investigate or prosecute any alcohol or drug abuse patient.[facility] HospitalIn the event this information is protected by the Federal Confidentiality of Alcohol and Drug Abuse Patient Records regulations: The Federal rules restrict any use of the information to criminally investigate or prosecute any alcohol or drug abuse patient.[facility] HospitalIn the event this information is protected by the Federal Confidentiality of Alcohol and Drug Abuse Patient Records regulations: The Federal rules restrict any use of the information to criminally investigate or prosecute any alcohol or drug abuse patient.[facility] HospitalIn the event this information is protected by the Federal Confidentiality of Alcohol and Drug Abuse Patient Records regulations: The Federal rules restrict any use of the information to criminally investigate or prosecute any alcohol or drug abuse patient.[facility] HospitalIn the event this information is protected by the Federal Confidentiality of Alcohol and Drug Abuse Patient Records regulations: The Federal rules restrict any use of the information to criminally investigate or prosecute any alcohol or drug abuse patient.[facility] HospitalIn the event this information is protected by the Federal Confidentiality of Alcohol and Drug Abuse Patient Records regulations: The Federal rules restrict any use of the information to criminally investigate or prosecute any alcohol or drug abuse patient.[facility] HospitalIn the event this information is protected by the Federal Confidentiality of Alcohol and Drug Abuse Patient Records regulations: The Federal rules restrict any use of the information to criminally investigate or prosecute any alcohol or drug abuse patient.[facility] HospitalIn the event this information is protected by the Federal Confidentiality of Alcohol and Drug Abuse Patient Records regulations: The Federal rules restrict any use of the information to criminally investigate or prosecute any alcohol or drug abuse patient.[facility] HospitalIn the event this information is protected by the Federal Confidentiality of Alcohol and Drug Abuse Patient Records regulations: The Federal rules restrict any use of the information to criminally investigate or prosecute any alcohol or drug abuse patient.[facility] HospitalIn the event this information is protected by the Federal Confidentiality of Alcohol and Drug Abuse Patient Records regulations: The Federal rules restrict any use of the information to criminally investigate or prosecute any alcohol or drug abuse patient.[facility] HospitalIn the event this information is protected by the Federal Confidentiality of Alcohol and Drug Abuse Patient Records regulations: The Federal rules restrict any use of the information to criminally investigate or prosecute any alcohol or drug abuse patient.[facility] HospitalIn the event this information is protected by the Federal Confidentiality of Alcohol and Drug Abuse Patient Records regulations: The Federal rules restrict any use of the information to criminally investigate or prosecute any alcohol or drug abuse patient.[facility] HospitalIn the event this information is protected by the Federal Confidentiality of Alcohol and Drug Abuse Patient Records regulations: The Federal rules restrict any use of the information to criminally investigate or prosecute any alcohol or drug abuse patient.[facility] HospitalIn the event this information is protected by the Federal Confidentiality of Alcohol and Drug Abuse Patient Records regulations: The Federal rules restrict any use of the information to criminally investigate or prosecute any alcohol or drug abuse patient.[facility] HospitalIn the event this information is protected by the Federal Confidentiality of Alcohol and Drug Abuse Patient Records regulations: The Federal rules restrict any use of the information to criminally investigate or prosecute any alcohol or drug abuse patient.[facility] HospitalIn the event this information is protected by the Federal Confidentiality of Alcohol and Drug Abuse Patient Records regulations: The Federal rules restrict any use of the information to criminally investigate or prosecute any alcohol or drug abuse patient.[facility] HospitalIn the event this information is protected by the Federal Confidentiality of Alcohol and Drug Abuse Patient Records regulations: The Federal rules restrict any use of the information to criminally investigate or prosecute any alcohol or drug abuse patient.[facility] HospitalIn the event this information is protected by the Federal Confidentiality of Alcohol and Drug Abuse Patient Records regulations: The Federal rules restrict any use of the information to criminally investigate or prosecute any alcohol or drug abuse patient.[facility] HospitalIn the event this information is protected by the Federal Confidentiality of Alcohol and Drug Abuse Patient Records regulations: The Federal rules restrict any use of the information to criminally investigate or prosecute any alcohol or drug abuse patient.[facility] Reason for Visit (unrecogniz ed section and content) Reason Comments Physical Therapy Specialty Diagnoses / Procedures Referred By Contac t Referred To Contact Physical Therapy / PHYSICAL THERAPY Diagnoses 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)also patient has an order for L hip pain M25.552 Procedures NEW RS PT SPINE Joyce De La Paz [address] [place] [address] Bridger Spencer, PT [address] [place] [address] Referral ID Status Reason Start Date Expiration Date V isits Requested Visits Authorized [id number] Authorized 07/03/2021 07/02/2022 20 20 Reason Comments PT Progress Note Reason Comments New Reason Comments Radio Gen A21 Specialty Diagnoses / Procedures Referred By Contac t Referred To Contact XR IMAGING Diagnoses Pain Procedures XR HIP BILATERAL 5V PEL/AP/LAT EACH HIP RADEX HIPS BILATERAL WITH PELVIS MINIMUM 5 VIEWS Ian Holley PA-C [address] [place] [address] Xr Imaging Referral ID Status Reason Start Date Expiration Date V isits Requested Visits Authorized [id number] Closed Auto-Generate d Referral 11/10/2021 12/10/2022 1 1 Reason Comments 03/10 colon/egd lodi Reason Comments Consult Abdominal Pain Reason Comments Results Reason Comments Radiology US Specialty Diagnoses / Procedures Referred By Contac t Referred To Contact US IMAGING Diagnoses RUQ abdominal pain Procedures US ABD RT UPPER QUADRANT US ABDOMINAL REAL TIME W/IMAGE LIMITED Sangeeta Sim MD [address] [place] [address] Us Imaging Referral ID Status Reason Start Date Expiration Date V isits Requested Visits Authorized [id number] Closed Auto-Generate d Referral 03/25/2022 04/24/2023 1 [...] INTERVENJ Sangeeta Sim MD [address] [place] [address] Molecular & Functional Imaging [address] [place] [address] Referral ID Status Reason Start Date Expiration Date V isits Requested Visits Authorized [id number] Closed Auto-Generate d Referral 04/13/2022 05/13/2023 1 1 Reason Comments Radio Gen RMP Reason Comments Follow-up Patient was in [facility] for a GI bleed in June 2023. 6.7 Hemoglobin. Initially went for knee issues, after having blood work they admitted for low Hemoglobin. Got 2 units of blood. Reason Comments urinary incontinece Pt reports urgency f or 2 yrs Specialty Diagnoses / Procedures Referred By Contac t Referred To Contact Urology Diagnoses Pelvic floor dysfunction in female Juju Hamm, [address] [facility] [place], [address] [place] [address] Referral ID Status Reason Start Date Expiration Date Visits Requested Visits Authorized [id number] Authorized Specialty Services Required 07/05/2023 07/04/2024 1 1 Reason Comments cysto/botox Specialty Diagnoses / Procedures Referred By Sienna morales Referred To Contact Diagnoses OAB (overactive bladder) Tia Anglin MD MPH [address] [facility], [address] [place] [address] Referral ID Status Reason Start Date Expiration Date V isits Requested Visits Authorized [id number] Pending Review 08/18/2023 08/17/2024 1 1 Reason [...] Recurrent UTI Franc Quezada MD [address] [facility] [address] [place] [address] Sara Mclaughlin MD [address] [facility] 2nd [place] [address] Referral ID Status Reason Start Date Expiration Date V isits Requested Visits Authorized [id number] New Request 04/11/2024 05/06/2025 1 1 Reason Comments ischemic colitis In January had rectal bleeding and abdominal pain, poor appetite. Was seen at the [place] [facility] and transferred to [facility] and admitted 4 days diagnosed with ischemic colitis. EGD and colonoscopy on 02/16 no source of GI bleed revealed. ? Barretts esophagus on EGD Specialty Diagnoses / Procedures Referred By Contact Referred To Contact Gastroenterology Diagnoses Dysphagia, unspecified type Procedures Esophagogastroduodenoscopy (EGD) DC ESOPHAGOGASTRODUODENOSCOPY TRANSORAL DIAGNOSTIC DC EGD TRANSORAL BIOPSY SINGLE/MULTIPLE Juju Hamm, DO [address] [facility] [place], [address] [place] [address] Referral ID Status Reason Start Date Expiration Date V isits Requested Visits Authorized [id number] Authorized 12/14/2023 12/13/2024 1 1 Reason Comments overactive bladder Reason Comments Cystoscopy with Botox injections Specialty Diagnoses / Procedures Referred By Contac t Referred To Contact Diagnoses Urge incontinence of urine Radha Calderon MD [address] [place] [address] Referral ID Status Reason Start Date Expiration Date V isits Requested Visits Authorized [id number] Pending Review 03/28/2024 03/28/2025 1 1 Reason [...] WITH PELVIS 2-3 VIEWS Jeevan Funez PA-C [address] [place] [id number] [place] [address] Referral ID Status Reason Start Date Expiration Date V isits Requested Visits Authorized [id number] Closed Auto-Generate d Referral 07/01/2024 07/31/2025 1 [...] Care Teams (unrecognized sec tion and content) Imaging Nurse Relationship Specialty Start Date End Date Sergio Bailey MD [address] [place] [address] PCP - General Family Practice 05/08/20 Moshe Paz MD [address] [id number] Home Care Physician Orthopedics 12/11/19 Moshe Paz MD [address] [place] [address] Referring Orthopedics 12/11/19 Rico Kelly, PT [address] [facility] [place] [address] Actuarial Technician Post Acute Care 12/13/19 Imaging Nurse Relationship Specialty Start Date End Date Sergio Bailey MD [address] [place], [place] [id number] PCP - General Family Practice 05/08/20 Moshe Paz MD [address] [place] [address] Home Care Physician Orthopedics 12/11/19 Moshe Paz MD [address] [place] [address] Referring Orthopedics 12/11/19 Rico Kelly, PT [address] [place] [address] Actuarial Technician Post Acute Care 12/13/19 Imaging Nurse Relationship Specialty Start Date End Date Sergio Bailey MD [address] [place] [address] PCP - General Family Practice 05/08/20 Moshe Paz MD [address] [place] [address] Home Care Physician Orthopedics 12/11/19 Moshe Paz MD [address] [place] [address] Referring Orthopedics 12/11/19 Rico Kelly, PT [address] [place] [address] Actuarial Technician Post Acute Care 12/13/19 Imaging Nurse Relationship Specialty Start Date End Date Sergio Bailey MD [address] [place] [address] PCP - General Family Practice 05/08/20 Moshe Paz MD [address] [place] [address] Home Care Physician Orthopedics 12/11/19 Moshe Paz MD [address] [place] [address] Referring Orthopedics 12/11/19 Rico Kelly, PT [address] [place] [address] Actuarial Technician Post Acute Care 12/13/19 Imaging Nurse Relationship Specialty Start Date End Date Sergio Bailey MD [address] [place] [address] PCP - General Family Practice 05/08/20 Moshe Paz MD [address] [place] [address] Home Care Physician Orthopedics 12/11/19 Moshe Paz MD [address] [place] [address] Referring Orthopedics 12/11/19 Rico Kelly, PT [address] [place] [address] Actuarial Technician Post Acute Care 12/13/19 Imaging Nurse Relationship Specialty Start Date End Date Sergio Bailey MD [address] [place], [place] [id number] PCP - General Family Practice 05/08/20 Moshe Paz MD [address] [place] [address] Home Care Physician Orthopedics 12/11/19 Moshe Paz MD [address] [place] [address] Referring Orthopedics 12/11/19 Rico Kelly, PT [address] [place] [address] Actuarial Technician Post Acute Care 12/13/19 Imaging Nurse Relationship Specialty Start Date End Date Sergio Bailey MD [address] [place], [place] [id number] PCP - General Family Practice 05/08/20 Moshe Paz MD [address] [place] [address] Home Care Physician Orthopedics 12/11/19 Moshe Paz MD [address] [place] [address] Referring Orthopedics 12/11/19 Rico Kelly, PT [address] [place] [address] Actuarial Technician Post Acute Care 12/13/19 Imaging Nurse Relationship Specialty Start Date End Date Sergio Bailey MD [address] [place], [place] [address] PCP - General Family Practice 05/08/20 Moshe Paz MD [address] [place] [address] Home Care Provider Orthopedics 12/11/19 Moshe Paz MD [address] [place] [address] Referring Orthopedics 12/11/19 Rico Kelly, PT [address] [place] [address] Actuarial Technician Post Acute Care 12/13/19 Imaging Nurse Relationship Specialty Start Date End Date Sergio Bailey MD [address] [place], [place] [address] PCP - General Family Medicine 05/08/20 Moshe Paz MD [address] [place] [address] Home Care Provider Orthopedics 12/11/19 Moshe Paz MD [address] [place] [address] Referring Orthopedics 12/11/19 Rico Kelly, PT [address] [place] [address] Actuarial Technician Post Acute Care 12/13/19 Imaging Nurse Relationship Specialty Start Date End Date Sergio Bailey MD [address] [place] [address] PCP - General Family Medicine 05/08/20 Moshe Paz MD [address] [place] [address] Home Care Provider Orthopedics 12/11/19 Moshe Paz MD [address] [place] [address] Referring Orthopedics 12/11/19 Rico Kelly, PT [address] [place] [address] Actuarial Technician Post Acute Care 12/13/19 Imaging Nurse Relationship Specialty Start Date End Date Sergio Bailey MD [address] [place], [place] [address] PCP - General Family Medicine 05/08/20 Moshe Paz MD [address] [place] [address] Home Care Provider Orthopedics 12/11/19 Moshe Paz MD [address] [place] [address] Referring Orthopedics 12/11/19 Rico Kelly, PT [address] [place] [address] Actuarial Technician Post Acute Care 12/13/19 Imaging Nurse Relationship Specialty Start Date End Date Sergio Bailey MD [address] [place] [address] PCP - General Family Medicine 05/08/20 Moshe Paz MD [address] [place] [address] Home Care Provider Orthopedics 12/11/19 Moshe Paz MD [address] [place] [address] Referring Orthopedics 12/11/19 Rico Kelly, PT [address] [place] [address] Actuarial Technician Post Acute Care 12/13/19 Imaging Nurse Relationship Specialty Start Date End Date Sergio Bailey MD [address] [place] [address] PCP - General Family Medicine 05/08/20 Moshe Paz MD [address] [place] [address] Home Care Provider Orthopedics 12/11/19 Moshe Paz MD [address] [place] [address] Referring Orthopedics 12/11/19 Rico Kelly, PT [address] [place] [address] Actuarial Technician Post Acute Care 12/13/19 Imaging Nurse Relationship Specialty Start Date End Date Sergio Bailey MD [address] [place] [address] PCP - General Family Medicine 05/08/20 Moshe Paz MD [address] [place] [address] Home Care Provider Orthopedics 12/11/19 Moshe Paz MD [address] [place] [address] Referring Orthopedics 12/11/19 Rico Kelly, PT [address] [place] [address] Actuarial Technician Post Acute Care 12/13/19 Imaging Nurse Relationship Specialty Start Date End Date Sergio Bailey MD [address] [place], [place] [id number] PCP - General Family Medicine 05/08/20 Moshe Paz MD [address] [place] [address] Home Care Provider Orthopedics 12/11/19 Moshe Paz MD [address] [place] [address] Referring Orthopedics 12/11/19 Rico Kelly, PT [address] [place] [address] Actuarial Technician Post Acute Care 12/13/19 Team Status: Active [...] Provide r, Attending Provider, Referring Provider Active Imaging Nurse Relationship Specialty Start Date End Date Sergio Bailey MD [address] [place] [address] PCP - General Family Medicine 05/08/20 Moshe Paz MD [address] [place] [address] Home Care Provider Orthopedics 12/11/19 Moshe Paz MD [address] [place], [place] [id number] Referring Orthopedics 12/11/19 Rico Kelly, PT [address] [place] [address] Actuarial Technician Post Acute Care 12/13/19 Team Status: Inactive Member Role Status Dates Dr. Sergio Bailey MD Primary Care Provider Active Dr. Shanika Nava MD Attending Provider, Referring P rovider Active Team Status: Active Member Role Status Dates Dr. Sergoi Bailey MD Primary Care Provider Active Dr. [...] Dr. Alis Sorenson MD Emergency Provider Active Imaging Nurse Relationship Specialty Start Date End Date Sergio Bailey MD [address], [place] [id number] PCP - General Family Medicine 05/08/20 Moshe Paz MD [address] [place], [place] [id number] Home Care Provider Orthopedics 12/11/19 Moshe Paz MD [address] [place], [place] [address] Referring Orthopedics 12/11/19 Rico Kelly, PT [address] [place] [address] Actuarial Technician Post Acute Care 12/13/19 Imaging Nurse Relationship Specialty Start Date End Date Sergio Bailey MD [address] [place], [place] [address] PCP - General Family Medicine 05/08/20 Moshe Paz MD [address] [place], [place] [id number] Home Care Provider Orthopedics 12/11/19 Moshe Paz MD [address] [place] [address] Referring Orthopedics 12/11/19 Rico Kelly, PT [address] [place] [address] Actuarial Technician Post Acute Care 12/13/19 Imaging Nurse Relationship Specialty Start Date End Date Sergio Bailey MD [address] [place], [place] [address] PCP - General Family Medicine 05/08/20 Moshe Paz MD [address] [place] [address] Home Care Provider Orthopedics 12/11/19 Moshe Paz MD [address] [place] [address] Referring Orthopedics 12/11/19 Rico Kelly, PT [address] [place] [address] Actuarial Technician Post Acute Care 12/13/19 Imaging Nurse Relationship Specialty Start Date End Date Sergio Bailey MD [address] [place], [place] [address] PCP - General Family Medicine 05/08/20 Moshe Paz MD [address] [place] [address] Home Care Provider Orthopedics 12/11/19 Moshe Paz MD [address] [place] [address] Referring Orthopedics 12/11/19 Rico Kelly, PT [address] [place] [address] Actuarial Technician Post Acute Care 12/13/19 Imaging Nurse Relationship Specialty Start Date End Date Sergio Bailey MD [address] [place] [address] PCP - General Family Medicine 05/08/20 Moshe Paz MD [address] [place] [address] Home Care Provider Orthopedics 12/11/19 Moshe Paz MD [address] [place] [address] Referring Orthopedics 12/11/19 Rico Kelly, PT [address] [place] [address] Actuarial Technician Post Acute Care 12/13/19 Team Status: Inactive [...] Inactive Member Role Status Dates Dr. Sergio Bailye MD Primary Care Provider Active Dr. García Barth , Attending Provider, Referring Eunice [email or web address] Active Team Status: Active Member Role Status Dates Dr. Sergio Bailey MD Primary Care Provider Active Dr. Andrew Langston MD Attending Provider Active Dr. García Barth DO Referring Provider Active Imaging Nurse Relationship Specialty Start Date End Date Sergio Bailey MD [address] [place] [address] [place] [address] PCP - General Family Medicine 04/25/23 Imaging Nurse Relationship Specialty Start Date End Date Sergio Bailey MD [address] [place] [address] [place] [address] PCP - General Family Medicine 04/25/23 Imaging Nurse Relationship Specialty Start Date End Date Sergio Bailey MD [address] [place] [address] [place] [address] PCP - General Family Medicine 04/25/23 Team [...] Active Franc Quezada MD Attending Provider Active Imaging Nurse Relationship Specialty Start Date End Date Sergio Bailey MD [address] [facility] [address] [place], [place] [id number] PCP - General Family Medicine 04/25/23 Imaging Nurse Relationship Specialty Start Date End Date Sergio Bailey MD [address] [facility] [place] [address] PCP - General Family Medicine 05/08/20 Moshe Paz MD [address] [place], [place] [id number] Home Care Provider Orthopedics 12/11/19 Moshe Paz MD [address] [place], [place] [id number] Referring Orthopedics 12/11/19 Rico Kelly, PT [address] [place], [place] [id number] Actuarial Technician Post Acute Care 12/13/19 Imaging Nurse Relationship Specialty Start Date End Date Franc Quezada MD [address] [facility] [address] [place] [address] PCP - General Family Medicine 02/24/24 Imaging Nurse Relationship Specialty Start Date End Date Sergio Bailey MD [address] [facility] [address] [place], [place] [phone] PCP - General Family Medicine 04/25/23 Imaging Nurse Relationship Specialty Start Date End Date Sergio Bailey MD [address] [facility] [address] [place], [place] [id number] PCP - General Family Medicine 04/25/23 Imaging Nurse Relationship Specialty Start Date End Date Sergio Bailey MD [address] [address] PCP - General Family Medicine 04/25/23 Imaging Nurse Relationship Specialty Start Date End Date Franc Quezada MD [address] [address] PCP - General Family Medicine 03/28/24 Imaging Nurse Relationship Specialty Start Date End Date Sergio Bailey MD [address] [facility] [place] [address] PCP - General Family Medicine 05/08/20 Moshe Paz MD [address] [place] [place], [place] [id number] Home Care Provider Orthopedics 12/11/19 Moshe Paz MD [address] [place] [place], [place] [phone] Referring Orthopedics 12/11/19 Rico Kelly, PT [address] [place] [address] Actuarial Technician Post Acute Care 12/13/19 Imaging Nurse Relationship Specialty Start Date End Date Sergio Bailey MD [address] [facility] [place] [address] PCP - General Family Medicine 05/08/20 Moshe Paz MD [address] [place] [address] Home Care Provider Orthopedics 12/11/19 Moshe Paz MD [address] [place] [address] Referring Orthopedics 12/11/19 Rico Kelly, PT [address] [place] [address] Actuarial Technician Post Acute Care 12/13/19 Imaging Nurse Relationship Specialty Start Date End Date Sergio Bailey MD [address] [place] [address] PCP - General Family Medicine 05/08/20 Moshe Paz MD [address] [place] [address] Home Care Provider Orthopedics 12/11/19 Moshe Paz MD [address] [place] [address] Referring Orthopedics 12/11/19 Rico Kelly, PT [address] [place] [address] Actuarial Technician Post Acute Care 12/13/19 Imaging Nurse Relationship Specialty Start Date End Date Sergio Bailey MD [address] [place] [address] PCP - General Family Medicine 05/08/20 Moshe Paz MD [address] [place] [address] Home Care Provider Orthopedics 12/11/19 Moshe Paz MD [address] [place] [address] Referring Orthopedics 12/11/19 Rico Kelly, PT [address] [place] [address] Actuarial Technician Post Acute Care 12/13/19 Imaging Nurse Relationship Specialty Start Date End Date Sergio Bailey MD [address] [place] [address] PCP - General Family Medicine 05/08/20 Moshe Paz MD [address] [place] [address] Home Care Provider Orthopedics 12/11/19 Moshe Paz MD [address] [place] [address] Referring Orthopedics 12/11/19 Rico Kelly, PT [address] [place] [address] Actuarial Technician Post Acute Care 12/13/19 Imaging Nurse Relationship Specialty Start Date End Date Sergio Bailey MD [address] [place] [address] PCP - General Family Medicine 05/08/20 Moshe Paz MD [address] [place] [address] Home Care Provider Orthopedics 12/11/19 Moshe Paz MD [address] [place] [address] Referring Orthopedics 12/11/19 Rico Kelly, PT [address] [place] [address] Actuarial Technician Post Acute Care 12/13/19 Imaging Nurse Relationship Specialty Start Date End Date Sergio Bailey MD [address] [place], [place] [address] PCP - General Family Medicine 05/08/20 Moshe Paz MD [address] [place] [address] Home Care Provider Orthopedics 12/11/19 Moshe Paz MD [address] [place] [address] Referring Orthopedics 12/11/19 Rico Kelly, PT [address] [place] [address] Actuarial Technician Post Acute Care 12/13/19 Imaging Nurse Relationship Specialty Start Date End Date Sergio Bailey MD [address] [place] [address] PCP - General Family Medicine 05/08/20 Moshe Paz MD [address] [place] [address] Home Care Provider Orthopedics 12/11/19 Moshe Paz MD [address] [place] [address] Referring Orthopedics 12/11/19 Rico Kelly, PT [address] [place] [address] Actuarial Technician Post Acute Care 12/13/19 Imaging Nurse Relationship Specialty Start Date End Date Sergio Bailey MD [address] [place], [place] [address] PCP - General Family Medicine 05/08/20 Moshe Paz MD [address] [place] [address] Home Care Provider Orthopedics 12/11/19 Moshe Paz MD [address] [place] [address] Referring Orthopedics 12/11/19 Rico Kelly, PT [address] [place] [address] Actuarial Technician Post Acute Care 12/13/19 Imaging Nurse Relationship Specialty Start Date End Date Sergio Bailey MD [address] [place], [place] [address] PCP - General Family Medicine 05/08/20 Moshe Paz MD [address] [place] [address] Home Care Provider Orthopedics 12/11/19 Moshe Paz MD [address] [place] [address] Referring Orthopedics 12/11/19 Rico Kelly, PT [address] [place] [address] Actuarial Technician Post Acute Care 12/13/19 Imaging Nurse Relationship Specialty Start Date End Date Sergio Bailey MD [address] [place], [place] [address] PCP - General Family Medicine 05/08/20 Moshe Paz MD [address] [place] [address] Home Care Provider Orthopedics 12/11/19 Moshe Paz MD [address] [place] [address] Referring Orthopedics 12/11/19 Rico Kelly, PT [address] [place] [address] Actuarial Technician Post Acute Care 12/13/19 Team Status: Active [...] BE BASED ON THE PRIMARY CLINICAL RECORDS. [employer] provides no warranty or guarantee of the accuracy or completeness of information in this document.
[2024-12-28 04:54] LABS: Magnesium 2.0 mg/dL (1.5-2.2)
[2024-12-28 05:36] LABS: Hematocrit 35.3 % (37-47); Hemoglobin 11.4 g/dL (12.0-15.0); Immature Granulocytes Count 0.090 X10^3/uL (0.0-0.0); Mean Corp Hgb Conc 32.3 g/dL (32-36); Mean Corpuscular Volume 98.3 fL (81-99); Mean Platelet Vol. 9.3 fl (6.2-12.0); NRBC Flagged by Analyzer 0 % (0-5); Platelet Count 223 K/mm3 (150-450); RBC Distribution Width CV 13.4 % (11.6-14.6); RBC Distribution Width SD 48.7 fl (35.1-43.9); Red Blood Count 3.59 M/mm3 (4.2-5.4); White Blood Count 13.3 K/mm3 (4.4-11.0)
[2024-12-28 05:45] LABS: Reflex Lactate? Y
[2024-12-28 06:03] LABS: AST(SGOT) 145 U/L (<=31); Alanine Aminotransfer ALT/SGPT 51 U/L (<=34); Albumin, Serum 3.4 g/dL (3.4-4.8); Alkaline Phosphatase 65 U/L (35-104); Anion Gap 13 (5-15); BUN 17 mg/dL (4-19); BUN/Creat Ratio 16.8 RATIO (10-20); Calcium,Total 7.5 mg/dL (7.6-11.0); Carbon Dioxide 20.0 mmol/L (21.0-32.0); Chloride 109 mmol/L (98-108); Estimated Creatinine Clearance 36.16 ml/min (50-250); Globulin 1.7 g/dL (2.2-4.2); Glucose 102 mg/dL (70-99); Potassium 3.9 mmol/L (3.3-5.1)
--- NOTE | 2024-12-28 06:16 | PCM.RX.CS ---
Consult Antibiotic Management Pharmacy has been consulted to manage selected antibiotic: Vancomycin Type of Intervention Type of Consult: New start Labs Labs: Sodium 143 mmol/L (133-145) 12/28/24 05:25 Potassium 3.9 mmol/L (3.3-5.1) 12/28/24 05:25 Chloride 109 mmol/L (98-108) H 12/28/24 05:25 Carbon Dioxide 20.0 mmol/L (21.0-32.0) L 12/28/24 05:25 Anion Gap 13 (5-15) 12/28/24 05:25 BUN 17 mg/dL (4-19) 12/28/24 05:25 Creatinine 1.00 mg/dL (0.70-1.20) 12/28/24 05:25 Est GFR (MDRD) Non-Af 56 (>60) L 12/28/24 05:25 BUN/Creatinine Ratio 16.8 RATIO (10-20) 12/28/24 05:25 Glucose 102 mg/dL (70-99) H 12/28/24 05:25 Microbiology Microbiology: Microbiology 12/28/24 01:55 Urine Catheter - Yepez Legionella Antigen - Final 12/28/24 01:55 Urine Catheter - Yepez Streptococcus pneumoniae Antigen (M - Final 12/28/24 01:58 Mucosa - Nasopharyngeal SARS-CoV-2, Influenza & RSV (PCR) - Final Dosing Weight Weight used for dosin.6 kg Estimated Creatinine Clearance Estimated Creatinine Clearance: 36.16 Goal Trough Goal Trough: 15-20 mcg/mL Pharmacy Plan for Drug Dosing Pharmacy Plan for Drug Dosing: Pharmacy Service will continue to monitor and adjust dosing as required. ER DOSE 750MG GIVEN 12/28 @ 0330. START 750MG Q24H AND DRAW TROUGH PRIOR TO 3RD DOSE Follow-Up Labs Follow-Up Labs: Trough: Vancomycin Date/Time Labs Ordered Labs to be done on [date and time ordered]: 12/30 @ 0300
[2024-12-28] MEDS: Propofol 10MG/Ml 1,000 MG/100 ML Bottle 3.5 MG CONT INF (06:17)
[2024-12-28] MEDS: CHLORHEXIDINE GLUC 2% CLOTH 1 EACH TOWELETTE TOPICAL (06:17)
[2024-12-28] MEDS: 0.9% Normal Saline (1000mL) 1,000 ML 100 ML IV (06:26)
[2024-12-28 06:50] LABS: CPK Total, Creatine Kinase 105 U/L (24-195); Triglycerides 166 mg/dL
[2024-12-28 07:07] LABS: Troponin T High Sens 4 HR 747 ng/L (<=14)
--- NOTE | 2024-12-28 07:08 | PCMCONS.TICU ---
HPI Consult Data Date of Consult: 12/28/24 HPI Narrative HPI Narrative: Ms. Prajapati is an 84 year-old female with Rheumatoid Arthritis, HLD, CKD III, non-obstructive CAD, severe subclavian stenosis, GERD, PVD, COPD, and chronic anemia who presents with acute hypoxemic and hypercapnic respiratory failure. According to her daughter, she was in her state of usual health, doing well, when yesterday evening she started to complain of shortness of breath. Upon arrival to [facility], she was trialed on BiPAP for her respiratory distress but eventually got intubated. Laboratory data was remarkable for Na 143, HCO3 20, Cr 1, AST 145, and ABG 7.. Imaging of her chest revealed airspace disease on the right. On my examination, she remains intubated and sedated while on low dose levophed. [facility] Medical History Neuropathic pain Chronic headache Hyperlipidemia Left knee pain Stenosis of right subclavian artery Quadriceps muscle rupture Post-menopausal Alcohol use Walker as ambulation aid Back pain Migraine headache Shortness of breath on exertion History of edema History of pain when walking History of stress test History of echocardiogram Cardiology follow-up encounter Depression Rheumatoid arthritis GI bleed Former smoker Migraines B12 deficiency Depressive disorder Mild cognitive impairment Essential (primary) hypertension CAD (coronary artery disease) Left ventricular hypertrophy Osteoporosis OAB (overactive bladder) Palpitations Fatigue GERD (gastroesophageal reflux disease) Dysphagia COPD (chronic obstructive pulmonary disease) Chronic ischemic colitis Chest pain DVT (deep venous thrombosis) Dyspnea Spondylosis Back pain Osteoarthritis Neoplasm of kidney Vitamin D deficiency Iron deficiency anemia Occipital neuralgia of right side Major depressive disorder Chronic headaches Home Medications ?Medication ?Instructions ?Recorded ?Last Taken ?Type aspirin 81 mg tablet,delayed 81 mg PO QDAY blood thinner 05/06/24 06/19/24 History release (Adult Aspirin Regimen) atorvastatin 20 mg tablet 20 mg PO QDAY cholesterol 05/06/24 06/24/24 History duloxetine 20 mg capsule,delayed 20 mg PO DAILY mood 05/06/24 06/19/24 10:30 History release metoprolol succinate 50 mg 50 mg PO QDAY blood pressure 05/06/24 06/24/24 History tablet,extended release 24 hr pantoprazole 40 mg tablet,delayed 40 mg PO QDAY GERD 05/22/24 06/19/24 10:30 History release losartan 50 mg tablet 50 mg PO QDAY #90 tabs 06/28/24 Unknown Rx sennosides 8.6 mg-docusate sodium 2 tab PO BID #120 tabs 07/01/24 Unknown Rx 50 mg tablet (Stimulant Laxative Plus) hydrocodone-acetaminophen 5-325mg 1 tab PO Q8H PRN pain 09/20/24 Unknown History 5mg-325mg ondansetron 4 mg disintegrating 4 mg PO Q8H 11/13/24 Unknown History tablet cranberry extract 500 mg capsule 500 mg PO DAILY 12/28/24 Unknown History (Cranberry Concentrate) estradiol 1 mg/gram (0.1 %) 1 mg transdermal DAILY 12/28/24 Unknown History transdermal gel packet (Divigel) methocarbamol 500 mg tablet 500 mg PO TID PRN PRN muscle spasm 12/28/24 Unknown History nortriptyline 10 mg capsule 25 mg PO QHS 12/28/24 Unknown History Allergy/AdvReac Type Severity Reaction Status Date / Time No Known Allergies Allergy Verified 06/28/24 12:51 Family History Father CAD (coronary artery disease) CABG x 5 Skin cancer Brother Diabetes CAD (coronary artery disease) age 59 Skin cancer Mother Skin cancer Surgical History History of total left knee replacement History of cardiac catheterization History of esophagogastroduodenoscopy (EGD) History of left heart catheterization (~2002) History of bilateral knee replacement History of open reduction and internal fixation (ORIF) procedure History of right hip replacement Social History (Updated 12/28/24 @ 04:[address] Valentina Palomares MD) household members: spouse Smoking Status: Former smoker alcohol intake: current alcohol intake frequency: a few times a week substance use type: does not use ROS ROS Narrative Unable to Obtain - Intubated and Sedated Objective Data Objective Data Vital Signs: Vital Signs Last response Temperature 37.2 C 12/28/24 05:28 Temperature Source Core 12/28/24 05:28 Pulse Rate 113 H 12/28/24 05:30 Respiratory Rate 18 12/28/24 05:30 Respiratory Effort Short of Breath, Accessory Muscle Use 12/28/24 01:50 Respiratory Depth Shallow 12/28/24 01:50 Respiratory Pattern Tachypnea 12/28/24 01:50 Blood Pressure 128/80 H 12/28/24 05:28 Blood Pressure Mean 96 12/28/24 05:28 Blood Pressure Source Monitor 12/28/24 05:28 Blood Pressure Position Supine 12/28/24 05:28 Blood Pressure Location Left Arm 12/28/24 05:28 Pulse Ox 99 12/28/24 05:30 Oxygen Delivery Method Mechanical Ventilator 12/28/24 05:28 Oxygen Flow Rate (L/min) 50 12/28/24 05:28 Fraction of Inspired Oxygen (FIO2) 35 12/28/24 05:30 I&O: I&O Last 24 Hours 12/27/24 12/27/24 12/28/24 11:59 23:59 11:59 Intake Total 2630.28 / 2630.28 Output Total 300 / 300 Balance 2330.28 / 2330.28 I&O: Total Stay 12/28/24 01:21 thru 12/28/24 06:45 Intake Total 2630.28 Output Total 300 Balance 2330.28 Current Meds Ordered / Administered: Current meds ordered / Administered Generic Name Dose Route Start Last Admin Trade Name Freq PRN Reason Stop Dose Admin Acetaminophen 650 mg 12/28/24 05:17 Acetaminophen 650 Mg Suppository RC Q4H PRN PRN Fever, pain 1-10 Acetaminophen 650 mg 12/28/24 05:17 Acetaminophen 325 Mg Tablet PO Q4H PRN PRN Fever, pain 1-10/10 Albuterol/Ipratropium 3 ml 12/28/24 07:15 Ipratropium/Albuterol Sulfate 3 Ml Ampul.Neb INHALATION Q4H.RT [facility] Aspirin 81 mg 12/28/24 08:00 Aspirin E.C. 81 Mg Tablet PO BREAKFAST [facility] Atorvastatin Calcium 20 mg 12/28/24 22:00 Atorvastatin Calcium 20 Mg Tablet PO QHS [facility] Chlorhexidine Gluconate 15 ml 12/28/24 10:00 Chlorhexidine 15 Ml PO BID [facility] Chlorhexidine Gluconate 1 each 12/28/24 10:00 12/28/24 06:17 Chlorhexidine Gluc 2% Cloth 1 Each Towelette TOPICAL 1 each DAILY [facility] Administration Chlorhexidine Gluconate 15 ml 12/28/24 10:00 Chlorhexidine 15 Ml PO BID [facility] Duloxetine HCl 20 mg 12/28/24 10:00 Duloxetine Hcl 20 Mg Capsule PO DAILY [facility] Enoxaparin Sodium 40 mg 12/28/24 10:00 Enoxaparin 40 Mg/0.4 Ml Syringe SC DAILY [facility] Sodium Chloride 1,000 mls @ 100 mls/hr 12/28/24 05:17 12/28/24 06:26 IV 12/28/24 15:16 100 mls/hr .Q10H [facility] Administration Piperacillin Sod/Tazobactam 50 mls @ 12.5 mls/hr 12/28/24 14:00 Sod 3.375 gm/ Sodium Chloride IV Q8 [facility] Vancomycin IV-PHARMACY TO DOSE 500 mls @ 250 mls/hr 12/28/24 05:17 1 each/ Sodium Chloride IV X1 PRN Rx to Dose Protocol Pantoprazole Sodium 40 mg/ 100 mls @ 330 mls/hr 12/28/24 10:00 Sodium Chloride IV Q12 [facility] Propofol 1,000 mg in 100 mls @ 3.486 mls/hr 12/28/24 05:17 12/28/24 06:30 Diprivan CONT INF 10 mcg/kg/min .Q12H [facility] 3.5 mls/hr Titration Protocol 10 MCG/KG/MIN Fentanyl 100 mls @ 5 mls/hr 12/28/24 05:17 12/28/24 06:17 CONT INF Not Given UD [facility] Protocol 50 MCG/HR Sodium Chloride 250 mls @ 15 mls/hr 12/28/24 05:19 IV .[id number] PRN Saline Flush Sodium Chloride 250 mls @ 15 mls/hr 12/28/24 05:19 IV .[id number] PRN Additional IVPB Infusion Vancomycin HCl 750 mg/ Sodium 265 mls @ 250 mls/hr 12/29/24 03:30 Chloride IV Q24H [facility] Azithromycin 500 mg/ Sodium 255 mls @ 255 mls/hr 12/28/24 10:00 Chloride IV Q24 [facility] Methylprednisolone Sodium Succinate 40 mg 12/28/24 05:17 12/28/24 06:27 Methylprednisolone Sod Succ 40 Mg/Ml Vial IV 40 mg Q8 [facility] Administration Ondansetron HCl 4 mg 12/28/24 05:17 Ondansetron 4 Mg/2 Ml Vial IV Q8H PRN PRN NAUSEA/VOMITING Prochlorperazine Edisylate 5 mg 12/28/24 05:17 Prochlorperazine 10 Mg/2 Ml Vial IV Q4H PRN PRN Breakthrough Nausea/Vomiting Sodium Chloride 5 ml 12/28/24 05:17 Sodium Cl For Inhalation 15 Ml Vial.Neb. INHALATION Q5M PRN Suctioning Sodium Chloride 10 - 40 ml 12/28/24 05:19 0.9% Saline Lock 10 Ml Syringe IV UD PRN SALINE FLUSH Vancomycin Protocol 1 lab 12/30/24 02:00 Vancomycin Trough/Random Due 12/30/24 04:00 DAILY [facility] Physical Exam Narrative GENERAL: INTUBATED AND SEDATED HEENT: PERRLA; EOMI; anicteric NECK: soft, supple, no KAREN; no JVP; no TM CV: RRR; -m/r/g RESP: CTAB; no wheezes, crackles or rhonchi ABD: soft, NT, ND, ABS x 4 EXT: WWP; no C/C/E NEURO: DEFERRED Lab / Micro Data 12/28/24 05:25 12/28/24 05:25 Labs: Laboratory Results - last 24 hr 12/28/24 01:35: WBC 12.3 H, RBC 4.06 L, Hgb 12.8, Hct 41.6, MCV 102.5 H, MCH 31.5, MCHC 30.8 L, RDW Std Deviation 49.8 H, RDW Coeff of Mark 13.2, Plt Count 241, MPV 9.7, Immature Gran % (Auto) 1.200 H, Neut % (Auto) 26.4 L, Lymph % (Auto) 60.0 H, [place] % (Auto) 7.7, Eos % (Auto) 4.1, Baso % (Auto) 0.6, Absolute Neuts (auto) 3.2, Absolute Lymphs (auto) 7.37 H, Nucleated RBC % 0, Differential Comment SCANNED, Diff Path Review May foll, Reactive Lymphocytes 1+, PT 13.1, INR 1.0, APTT 24.4, Sodium 138, Potassium 3.8, Chloride 102, Carbon Dioxide 13.7 L, Anion Gap 23 H, BUN 15, Creatinine 1.06, Estim Creat Clear Calc 35.55 L, Est GFR (MDRD) Non-Af 52 L, BUN/Creatinine Ratio 14.4, Glucose 269 H, Lactic Acid 9.6 H*, Calcium 9.3, Total Bilirubin < 0.15, AST 77 H, ALT 25, Alkaline Phosphatase 80, Troponin T High Sens 35 H, Total Protein 6.4, Albumin 4.1, Globulin 2.3, Albumin/Globulin Ratio 1.8 12/28/24 01:58: Urine Color Yellow, Urine Clarity Clear, Urine pH 6.5, Ur Specific [place] 1.010, Urine Protein 30 H, Urine Glucose (UA) Normal, Urine Ketones Negative, Urine Occult Blood 25 H, Urine Nitrite Negative, Urine Bilirubin Negative, Urine Urobilinogen Normal, Ur Leukocyte Esterase Negative, Urine RBC 0 SEEN, Urine WBC 0 SEEN, Ur Squamous Epith Cells 0 SEEN, Urine Bacteria 0 SEEN, Urine Mucus 0 SEEN 12/28/24 03:40: Lactic Acid 7.4 H*, Phosphorus 4.1, Magnesium 2.0, Troponin T Hi Sens 2 Hr 403 H* 12/28/24 05:25: WBC 13.3 H, RBC 3.59 L, Hgb 11.4 L, Hct 35.3 L, MCV 98.3, MCH 31.8, MCHC 32.3, RDW Std Deviation 48.7 H, RDW Coeff of Mark 13.4, Plt Count 223, MPV 9.3, Immature Gran % (Auto) 0.700, Neut % (Auto) 78.7 H, Lymph % (Auto) 10.0 L, [place] % (Auto) 10.1 H, Eos % (Auto) 0.3, Baso % (Auto) 0.2, Absolute Neuts (auto) 10.5 H, Absolute Lymphs (auto) 1.33, Nucleated RBC % 0, Sodium 143, Potassium 3.9, Chloride 109 H, Carbon Dioxide 20.0 L, Anion Gap 13, BUN 17, Creatinine 1.00, Estim Creat Clear Calc 36.16 L, Est GFR (MDRD) Non-Af 56 L, BUN/Creatinine Ratio 16.8, Glucose 102 H, Hemoglobin A1c 5.2, Calcium 7.5 L, Total Bilirubin 0.20, AST 145 H, ALT 51 H, Alkaline Phosphatase 65, Total Creatine Kinase 105, Total Protein 5.2 L, Albumin 3.4, Globulin 1.7 L, Albumin/Globulin Ratio 2.0, Triglycerides 166 12/28/24 06:35: Lactic Acid 2.2 H*, Troponin T Hi Sens 4Hr 747 H* Micro: Microbiology 12/28/24 01:55 Urine Catheter - Yepez Legionella Antigen - Final 12/28/24 01:55 Urine Catheter - Yepez Streptococcus pneumoniae Antigen (M - Final 12/28/24 01:58 Mucosa - Nasopharyngeal SARS-CoV-2, Influenza & RSV (PCR) - Final ABG Data ABG results: ABG 12/28/24 02:16 Specimen Type ART Sample Site R Radial pH 7.03 L* Bicarbonate Actual 13.2 L Total CO2 15 Base Excess -18 L O2 Saturation 92 L O2 % 50.0 ABG pCO2 50.7 H ABG pO2 93 Neal Test Positive Respiration Rate 18 O2 Delivery Device Adult Vent Vent Mode AC Tidal Volume 400.0 POC PEEP 5 Crit Call To/Read Back Yes Blood Gas Notified Whom andreea Blood Gas Notified Time 02:18:22 Imaging Radiology Impression Chest X-Ray 12/28/24 01:26 IMPRESSION: Suspect right lung base pneumonia. Follow up imaging recommended. Reading Location: [place] [address] Assessment and Plan . Assessment and plan: LINES R-Femoral 12/28 DRIPS Levophed Propofol Fentanyl VENTILATOR AC/400/18/P5/35% ANTIBIOTICS AND STEROIDS Azithromycin 12/28 Zosyn 12/28 Vancomycin 12/28 ASSESSMENT 1. Acute Hypoxemic and Hypercapnic Respiratory Failure 2. Shock 3. Acute COPD Exacerbation 4. Pneumonia 5. Non-Anion Gap Metabolic Acidosis 6. Acute Transaminitis 7. Hypertension 8. Hyperlipidemia 9. Non-Obstructive Coronary Artery Disease 10. Chronic Kidney Disease III 11. Rheumatoid Arthritis 12. Severe Subclavian Stenosis 13. Chronic Anemia PLAN 1. Vent check made; ABG pending 2. Broad Abx; tracheal aspirate ordered and pending; MRSA pending; COVID/Flu negative 3. Fluids + Vasopressor to maintain MAP 65 4. IV steroids + duonebs 5. Cr normal 6. H/H at baseline Lovenox/PPI Critical Care Time: 60 Minutes The entirety of this encounter was done via telemedicine with audio and visual. Consent was obtained for a telemedicine encounter. Shashank Pope MD Pulmonary and Critical Care Medicine
[2024-12-28 07:18] LABS: Allen Test Positive; Base Excess -2 mmol/L (-2 to +2); FI02 30.0; PEEP 5; PO2 82 mmHG (75-100); RR 18; SITE L Radial; SO2 97 % (95-99)
--- NOTE | 2024-12-28 07:34 | ECHOCS_ITS ---
Reason For Study Reason For Study: CAD/ASHD Procedure This was a 2D Doppler, Color Flow transthoracic echocardiogram. Patient scanned supine and on a vent. Contrast injection was performed. Exam performed portable in ICU/CCU. Left Ventricle Mildly dilated left ventricular cavity. Severe LV systolic dysfunction with anterior, septal, mid to distal inferior and apical akinesis. Mid to distal lateral akinesis. Estimated LVEF 15%. Stage I diastolic dysfunction. Right Ventricle Normal right ventricle. Atria The left and right atria are normal. Mitral Valve Mild (1+) mitral valve insufficiency. Tricuspid Valve Severe tricuspid valve insufficiency. Estimated RVSP 47 mmHg. Aortic Valve Trisinus/trileaflet aortic valve. Pulmonic Valve The pulmonic valve is not well visualized. Great Vessels Normal sized aortic root. Pericardium/Pleural No pericardial effusion. Medication Diluted definity 3ml given slow IV push to enhance endocardial definition. MMode/2D Measurements & Calculations LVIDd: 5.0 cm IVSd: 0.88 cm Ao root diam: 3.3 cm LVIDs: 4.4 cm LVPWd: 0.86 cm RVDd: 2.6 cm FS: 13.2 % LAV(MOD-bp): 28.5 ml LVAd ap4: 30.9 cm2 LVAd ap2: 30.5 cm2 LAV(MOD-bp) Indexed: 17.3 ml/m2 LVLd ap4: 7.0 cm LVLd ap2: 7.0 cm LAV(MOD-sp2): 28.9 ml EDV(MOD-sp4): 109.1 ml EDV(MOD-sp2): 106.9 ml LAV(MOD-sp4): 24.0 ml EDV(sp4-el): 115.8 ml EDV(sp2-el): 112.6 ml LVAs ap4: 27.6 cm2 LVAs ap2: 27.6 cm2 LVLs ap4: 6.9 cm LVLs ap2: 6.8 cm ESV(MOD-sp4): 92.2 ml ESV(MOD-sp2): 89.5 ml ESV(sp4-el): 94.3 ml ESV(sp2-el): 95.7 ml EF(MOD-sp4): 15.5 % EF(MOD-sp2): 16.3 % EF(sp4-el): 18.5 % SV(MOD-sp4): 16.9 ml SV(MOD-sp2): 17.5 ml SV(sp4-el): 21.4 ml SI(MOD-sp4): 10.3 ml/m2 SI(MOD-sp2): 10.6 ml/m2 LA A4 area: 11.6 cm2 LA dimension(2D): 3.5 cm RA A4 area: 9.1 cm2 Time Measurements MV dec time: 0.13 sec Doppler Measurements & Calculations MV E max robert: 26.5 cm/sec Lat Peak E' Robert: 9.5 cm/sec Med Peak E' Robert: 3.8 cm/sec MV A max robert: 79.0 cm/sec E/E' lat: 2.8 E/E' med: 7.0 MV E/A: 0.34 MV V2 max: 115.8 cm/sec MV dec slope: 212.8 cm/sec2 Ao V2 max: 86.4 cm/sec MV max P.4 mmHg Ao max P.0 mmHg MV V2 mean: 58.8 cm/sec Ao V2 mean: 61.8 cm/sec MV mean P.8 mmHg Ao mean P.7 mmHg MV V2 VTI: 10.4 cm Ao V2 VTI: 14.2 cm AV (velocity ratio): 0.76 LV V1 max: 71.1 cm/sec TR max robert: 281.2 cm/sec LV V1 max P.0 mmHg TR max P.6 mmHg LV V1 mean P.1 mmHg LV V1 mean: 49.6 cm/sec LV V1 VTI: 10.7 cm ECHO/Echo Complete W/ Contrast Interpretation Summary There is a large sized apical, septal, anteroseptal, anterior, inferior, marketing services manager ior, and lateral wall motion abnormality with hypokinesis to akinesis of the segments. Mildly dilated left ventricular cavity. Estimated LVEF 15%. Stage I diastolic d ysfunction. Mild (1+) mitral valve insufficiency. Severe tricuspid valve insufficiency. Estimated RVSP 47 mmHg. Ordering Physician: Muna Lopez Performed By: Griffin Pal RCS
[2024-12-28 07:44] LABS: Reflex Lactate? Y
[2024-12-28] MEDS: Aspirin E.C. 81 MG Tablet PO (07:54)
--- NOTE | 2024-12-28 08:17 | PN.HOSP_ITS ---
Reason for Visit Reason for Visit: Shortness of breath Subjective Subjective Patient brought to emergency department earlier this morning for shortness of breath. Evidently she had progressively worsening dyspnea over about a 12 to 24 hours prior to presentation with increased work of breathing, accessory muscle use that initially was tried to be treated with BiPAP however she progressively got worse and required intubation emergency department. Objective Data Objective Data Vital Signs: Vital Signs Temp Pulse Resp BP Pulse Ox O2 Del Method O2 Flow Rate 98.9 F 104 H 18 128/80 H 97 Mechanical Ventilator 50 12/28/24 05:28 12/28/24 07:15 12/28/24 07:15 12/28/24 05:28 12/28/24 07:15 12/28/24 05:28 12/28/24 05:28 FiO2 30 12/28/24 07:15 Oxygen Flow Rate (L/min) 50 Oxygen Delivery Method Mechanical Ventilator Weight: 60.6 kg Body Mass Index (BMI) 22.2 Intake & Output: Intake and Output for Last 24 Hours 12/26/24 12/27/24 12/28/24 23:59 23:59 23:59 Intake Total 2693.96 / 2693.96 Output Total 300 / 300 Balance 2393.96 / 2393.96 Lab / Micro Data 12/28/24 05:25 12/28/24 05:25 Labs: Laboratory Results - last 24 hr 12/28/24 01:35: WBC 12.3 H, RBC 4.06 L, Hgb 12.8, Hct 41.6, MCV 102.5 H, MCH 31.5, MCHC 30.8 L, RDW Std Deviation 49.8 H, RDW Coeff of Mark 13.2, Plt Count 241, MPV 9.7, Immature Gran % (Auto) 1.200 H, Neut % (Auto) 26.4 L, Lymph % (Auto) 60.0 H, [place] % (Auto) 7.7, Eos % (Auto) 4.1, Baso % (Auto) 0.6, Absolute Neuts (auto) 3.2, Absolute Lymphs (auto) 7.37 H, Nucleated RBC % 0, Differential Comment SCANNED, Diff Path Review May , Reactive Lymphocytes 1+, PT 13.1, INR 1.0, APTT 24.4, Sodium 138, Potassium 3.8, Chloride 102, Carbon Dioxide 13.7 L, Anion Gap 23 H, BUN 15, Creatinine 1.06, Estim Creat Clear Calc 35.55 L, Est GFR (MDRD) Non-Af 52 L, BUN/Creatinine Ratio 14.4, Glucose 269 H, Lactic Acid 9.6 H*, Calcium 9.3, Total Bilirubin < 0.15, AST 77 H, ALT 25, Alkaline Phosphatase 80, Troponin T High Sens 35 H, Total Protein 6.4, Albumin 4.1, Globulin 2.3, Albumin/Globulin Ratio 1.8 12/28/24 01:58: Urine Color Yellow, Urine Clarity Clear, Urine pH 6.5, Ur Specific [place] 1.010, Urine Protein 30 H, Urine Glucose (UA) Normal, Urine Ketones Negative, Urine Occult Blood 25 H, Urine Nitrite Negative, Urine Bilirubin Negative, Urine Urobilinogen Normal, Ur Leukocyte Esterase Negative, Urine RBC 0 SEEN, Urine WBC 0 SEEN, Ur Squamous Epith Cells 0 SEEN, Urine Bacteria 0 SEEN, Urine Mucus 0 SEEN 12/28/24 03:40: Lactic Acid 7.4 H*, Phosphorus 4.1, Magnesium 2.0, Troponin T Hi Sens 2 Hr 403 H* 12/28/24 05:25: WBC 13.3 H, RBC 3.59 L, Hgb 11.4 L, Hct 35.3 L, MCV 98.3, MCH 31.8, MCHC 32.3, RDW Std Deviation 48.7 H, RDW Coeff of Mark 13.4, Plt Count 223, MPV 9.3, Immature Gran % (Auto) 0.700, Neut % (Auto) 78.7 H, Lymph % (Auto) 10.0 L, [place] % (Auto) 10.1 H, Eos % (Auto) 0.3, Baso % (Auto) 0.2, Absolute Neuts (auto) 10.5 H, Absolute Lymphs (auto) 1.33, Nucleated RBC % 0, Sodium 143, Potassium 3.9, Chloride 109 H, Carbon Dioxide 20.0 L, Anion Gap 13, BUN 17, Creatinine 1.00, Estim Creat Clear Calc 36.16 L, Est GFR (MDRD) Non-Af 56 L, BUN/Creatinine Ratio 16.8, Glucose 102 H, Hemoglobin A1c 5.2, Calcium 7.5 L, Total Bilirubin 0.20, AST 145 H, ALT 51 H, Alkaline Phosphatase 65, Total Creatine Kinase 105, Total Protein 5.2 L, Albumin 3.4, Globulin 1.7 L, Albumin/Globulin Ratio 2.0, Triglycerides 166 12/28/24 06:35: Lactic Acid 2.2 H*, Troponin T Hi Sens 4Hr 747 H* Micro: Microbiology 12/28/24 01:55 Urine Catheter - Yepez Legionella Antigen - Final 12/28/24 01:55 Urine Catheter - Yepez Streptococcus pneumoniae Antigen (M - Final 12/28/24 01:58 Mucosa - Nasopharyngeal SARS-CoV-2, Influenza & RSV (PCR) - Final ABG Data ABG results: ABG 12/28/24 12/28/24 02:16 07:15 Specimen Type ART ART Sample Site R Radial L Radial pH 7.03 L* 7.45 Bicarbonate Actual 13.2 L 22.1 Total CO2 15 23 Base Excess -18 L -2 O2 Saturation 92 L 97 O2 % 50.0 30.0 ABG pCO2 50.7 H 32.2 L ABG pO2 93 82 Neal Test Positive Positive Respiration Rate 18 18 O2 Delivery Device Adult Vent Adult Vent Vent Mode AC AC Tidal Volume 400.0 400.0 POC PEEP 5 5 Crit Call To/Read Back Yes Blood Gas Notified Whom andreea Blood Gas Notified Time 02:18:22 Radiography Diagnostic Testing: Radiology Impression Chest X-Ray 12/28/24 01:26 IMPRESSION: Suspect right lung base pneumonia. Follow up imaging recommended. Reading Location: [place] [id number] Assessment & Plan Assessment/Plan (1) Septic shock: (2) Acute hypoxic respiratory failure: (3) Metabolic acidosis with respiratory acidosis: (4) Hyperglycemia: (5) Elevated troponin: (6) Right lower lobe pneumonia: PLAN: Plan Septic shock secondary to right lower lobe pneumonia - Cultures are pending--> blood urine and sputum - Patient is currently on pressors with Levophed--> wean as able - Continue antibiotics with vancomycin and Zosyn - Viral panels are unremarkable - Will start midodrine 10 3 times daily and attempt to wean pressors Acute hypoxic and hypercapnic respiratory failure secondary to right lower lobe pneumonia and acute exacerbation of COPD - Patient was hypercapnic on admission but also has acidosis from metabolic changes - Continue mechanical ventilation - Continue Solu-Medrol 40 every 8 - Continue scheduled and as needed nebulizers - Sputum cultures pending - Continue antibiotics as ordered Troponin elevation - Significant elevation however I do suspect this is likely driven from shock - Check echocardiogram - If any signs of wall motion abnormality will start heparin drip - If EF is abnormal will obtain cardiology consultation - Will likely need further workup if EF is abnormal but will have to hold off until she is more medically stable Hyperglycemia-acute - Suspect related to acute illness - Will continue to monitor Severe right subclavian stenosis - Continue medical therapy and outpatient follow-up with cardiology and vascular surgery - Avoid blood pressures on right side CKD stage 2 - Continue to monitor clinically - currently stable Chronic normocytic anemia - Hemoglobin is stable - Will continue to monitor with anticoagulation Essential hypertension/hyperlipidemia Patient hypotensive on presentation - Hold antihypertensives - Continue statin therapy GERD/history of GI bleed - IV PPI daily Rheumatoid arthritis - Patient is not on any DMARDs or steroids - Continue outpatient follow-up Mild cognitive impairment - Increases risk for delirium - If occasionally becomes agitated will consider low-dose risperidone and scheduled melatonin 10 mg daily 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
[2024-12-28] MEDS: Chlorhexidine 15 ML PO ×2 (08:29→21:46)
[2024-12-28] MEDS: Pantoprazole Sodium 40 MG in 0.9% Normal Saline (100mL MB+) 100 ML 330 MG IV ×2 (10:13→21:48)
[2024-12-28] MEDS: Lorazepam 2 MG/ML WCH Syringe 0.5 MG IV ×2 (10:14→15:26)
[2024-12-28] MEDS: Azithromycin 500 MG in 0.9% Normal Saline (250mL Bag) 250 ML 255 MG IV (11:21)
[2024-12-28] MEDS: Vital AF 1.2 Cal Liquid 1,000 ML 20 ML GT (11:26)
[2024-12-28] MEDS: 0.9% Saline Lock 10 ML Syringe IV (15:26)
[2024-12-28] MEDS: fentaNYL drip 100 ML 5 MCG CONT INF (16:00)
[2024-12-28] MEDS: HEPARIN/D5w 25,000 UNITS 25,000 UNITS/250 ML IV.SOLN. 8 UNITS CONT INF (17:40)
[2024-12-28] MEDS: Heparin Injection (Vial) 5,000 UNIT/ML VIAL 4000 UNIT IV (17:42)
--- NOTE | 2024-12-28 20:21 | PCM.HOSP.N ---
Hospitalist Note MAP not maintaining > 65, will reinitiate NEP therapy.
[2024-12-28] MEDS: Norepinephrine 8 MG in 0.9% Normal Saline (250mL Bag) 242 ML 9.4 MG CONT INF (20:50)
[2024-12-29] VITALS (38 sets, daily range): BP systolic 97–132; BP diastolic 48–102; PULSE 79–131; RESP 12–30; TEMP 36.9–37.5; O2SAT 94–100; BMI 23.5
[2024-12-29 00:18] LABS: Partial Thromboplast Time > 200.0 Seconds (24.1-36.2)
[2024-12-29] MEDS: Vancomycin HCl 750 MG in 0.9% Normal Saline (250mL Bag) 250 ML 250 MG IV (02:49)
[2024-12-29] MEDS: 0.9% Saline Lock 10 ML Syringe IV (02:51)
[2024-12-29 04:56] LABS: Hematocrit 31.4 % (37-47); Hemoglobin 10.4 g/dL (12.0-15.0); Immature Granulocytes Count 0.070 X10^3/uL (0.0-0.0); Mean Corp Hgb Conc 33.1 g/dL (32-36); Mean Corpuscular Volume 95.7 fL (81-99); Mean Platelet Vol. 9.5 fl (6.2-12.0); NRBC Flagged by Analyzer 0 % (0-5); Platelet Count 185 K/mm3 (150-450); RBC Distribution Width CV 14.0 % (11.6-14.6); RBC Distribution Width SD 49.2 fl (35.1-43.9); Red Blood Count 3.28 M/mm3 (4.2-5.4); White Blood Count 11.8 K/mm3 (4.4-11.0)
[2024-12-29] MEDS: Propofol 10MG/Ml 1,000 MG/100 ML Bottle 3.5 MG CONT INF (05:22)
[2024-12-29] MEDS: fentaNYL drip 100 ML 7.5 MCG CONT INF (05:25)
[2024-12-29] MEDS: Piperacil/Tazobactam 3.375 GM in 0.9% Normal Saline (50mL MB+) 50 ML IV ×3 (05:27→21:11)
[2024-12-29 05:44] LABS: AST(SGOT) 72 U/L (<=31); Alanine Aminotransfer ALT/SGPT 40 U/L (<=34); Albumin, Serum 3.4 g/dL (3.4-4.8); Alkaline Phosphatase 53 U/L (35-104); Anion Gap 15 (5-15); BUN 25 mg/dL (4-19); BUN/Creat Ratio 23.5 RATIO (10-20); Calcium,Total 7.8 mg/dL (7.6-11.0); Carbon Dioxide 16.3 mmol/L (21.0-32.0); Chloride 109 mmol/L (98-108); Estimated Creatinine Clearance 34.12 ml/min (50-250); Globulin 2.0 g/dL (2.2-4.2); Glucose 216 mg/dL (70-99); Magnesium 1.8 mg/dL (1.5-2.2); Potassium 3.3 mmol/L (3.3-5.1)
--- NOTE | 2024-12-29 05:55 | RAD_ITS ---
PROCEDURE: CHEST 1 VIEW (PORTABLE) 12/29/2024 REASON FOR EXAM: ETT PLACEMENT TECHNIQUE: Frontal view of the chest. COMPARISON: 12/28/2024 FINDINGS: ETT tip is between the inlet and the anai. Enteric tube tip in stomach lumen. Normal heart size. Well inflated lungs. Faint right basilar opacity, atelectasis/consolidation. RAD/Chest 1 View (Portable) IMPRESSION: Tube placement. Possible right lung base consolidation. Consider progress imaging. Reading Location: [facility]
[2024-12-29 06:57] LABS: Allen Test Positive; Base Excess -4 mmol/L (-2 to +2); FI02 30.0; PEEP 5; PO2 87 mmHG (75-100); RR 18; SITE L Radial; SO2 97 % (95-99)
--- NOTE | 2024-12-29 07:08 | PCM.PN.HOSP ---
Reason for Visit Reason for Visit: Shortness of breath Subjective Subjective Patient clinically on minimal vent settings and getting ready for spontaneous breathing trial. Hopeful that we will be able to extubate. She is calm now off of sedation. Follows commands and interacts appropriately Objective Data Objective Data Vital Signs: Vital Signs Temp Pulse Resp BP Pulse Ox O2 Del Method O2 Flow Rate 98.7 F 105 H 18 132/48 H 100 Mechanical Ventilator 12/29/24 07:00 12/29/24 07:00 12/29/24 07:00 12/29/24 07:00 12/29/24 07:00 12/29/24 07:00 12/28/24 18:00 FiO2 30 12/29/24 07:00 Oxygen Flow Rate (L/min) 30 Oxygen Delivery Method Mechanical Ventilator Weight: 64 kg Body Mass Index (BMI) 23.5 Intake & Output: Intake and Output for Last 24 Hours 12/27/24 12/28/24 12/29/24 23:59 23:59 23:59 Intake Total 4897.65 / 5018.05 736.20 / 736.20 Output Total 500 / 700 400 / 400 Balance 4397.65 / 4318.05 336.20 / 336.20 Lab / Micro Data 12/29/24 04:30 12/29/24 04:30 Labs: Laboratory Results - last 24 hr 12/28/24 06:35: Lactic Acid 2.2 H*, Troponin T Hi Sens 4Hr Cancelled 12/28/24 23:30: APTT > 200.0 H* 12/29/24 04:30: WBC 11.8 H, RBC 3.28 L, Hgb 10.4 L, Hct 31.4 L, MCV 95.7, MCH 31.7, MCHC 33.1, RDW Std Deviation 49.2 H, RDW Coeff of Mark 14.0, Plt Count 185, MPV 9.5, Immature Gran % (Auto) 0.600, Neut % (Auto) 89.1 H, Lymph % (Auto) 6.3 L, [place] % (Auto) 3.8, Eos % (Auto) 0.0, Baso % (Auto) 0.2, Absolute Neuts (auto) 10.5 H, Absolute Lymphs (auto) 0.74 L, Nucleated RBC % 0, Sodium 140, Potassium 3.3, Chloride 109 H, Carbon Dioxide 16.3 L, Anion Gap 15, BUN 25 H, Creatinine 1.06, Estim Creat Clear Calc 34.12 L, Est GFR (MDRD) Non-Af 52 L, BUN/Creatinine Ratio 23.5 H, Glucose 216 H, Calcium 7.8, Phosphorus 1.9 L, Magnesium 1.8, Total Bilirubin 0.42, AST 72 H, ALT 40 H, Alkaline Phosphatase 53, Total Protein 5.3 L, Albumin 3.4, Globulin 2.0 L, Albumin/Globulin Ratio 1.7, TSH 0.446 Micro: Microbiology 12/28/24 05:30 Mucosa - Nasopharyngeal Respiratory Panel (PCR) - Final 12/28/24 05:25 Nasal Secretion MRSA (PCR) - Final 12/28/24 01:55 Urine Catheter - Yepez Legionella Antigen - Final 12/28/24 01:55 Urine Catheter - Yepez Streptococcus pneumoniae Antigen (M - Final 12/28/24 01:58 Mucosa - Nasopharyngeal SARS-CoV-2, Influenza & RSV (PCR) - Final ABG Data ABG results: ABG 12/28/24 12/29/24 07:15 06:53 Specimen Type ART ART Sample Site L Radial L Radial pH 7.45 7.45 Bicarbonate Actual 22.1 19.7 L Total CO2 23 21 Base Excess -2 -4 L O2 Saturation 97 97 O2 % 30.0 30.0 ABG pCO2 32.2 L 28.5 L ABG pO2 82 87 Neal Test Positive Positive Respiration Rate 18 18 O2 Delivery Device Adult Vent Adult Vent Vent Mode AC AC Tidal Volume 400.0 400.0 POC PEEP 5 5 Radiography Diagnostic Testing: Radiology Impression Echocardiogram 12/28/24 07:34 Interpretation Summary There is a large sized apical, septal, anteroseptal, anterior, inferior, posterior, and lateral wall motion abnormality with hypokinesis to akinesis of the segments. Mildly dilated left ventricular cavity. Estimated LVEF 15%. Stage I diastolic dysfunction. Mild (1+) mitral valve insufficiency. Severe tricuspid valve insufficiency. Estimated RVSP 47 mmHg. Ordering Physician: Muna Lopez Performed By: Griffin Pal RCS Chest X-Ray 12/29/24 05:55 IMPRESSION: Tube placement. Possible right lung base consolidation. Consider progress imaging. Reading Location: [place] [address] Physical Exam Const alert, no apparent distress, average body habitus and well nourished Constitutional Narrative: Elderly, white female, sitting up in bed on the ventilator, daughter arrives at bedside while I am evaluating the patient, appears comfortable and nontoxic at this time HEENT head/scalp atraumatic and moist oral mucous membranes HEENT Narrative: ET tube and OG in place Head and Scalp: normocephalic Resp no retractions and no use of accessory muscles Resp Narrative: diminshed R base intubated on ventilator preparing for spontaneous breathing trial Auscultation: Negative for rales, rhonchi or wheezes Cardio regular rhythm, S1 normal heart sound, S2 normal heart sound, no murmurs, no rub, no gallops and no clicks Cardio Narrative: Mild tachycardia GI normal to inspection, nondistended, normoactive bowel sounds, soft to palpation and non-tender Extremity no clubbing, cyanosis or edema Extremity Narrative: 2+ pedal and radial pulses Neuro moves all extremities and no focal motor deficits Neuro Narrative: Patient intubated but sedation is off and patient following commands consistently and able to communicate via writing, seems appropriate, moves all extremities without deficit Sensorium / Orientation: awake and alert Speech: Negative for speech normal Psych Psych Narrative: Call Assessment & Plan Assessment/Plan (1) Septic shock: (2) Acute hypoxic respiratory failure: (3) Metabolic acidosis with respiratory acidosis: (4) Hyperglycemia: (5) Elevated troponin: (6) Right lower lobe pneumonia: (7) 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, <= 40%): (8) Non-ischemic cardiomyopathy: (9) Atrial fibrillation: PLAN: Plan Septic shock secondary to right lower lobe pneumonia - Cultures remain pending--> blood urine and sputum - Pressors are off since this morning - Continue antibiotics with vancomycin and Zosyn for now - Viral panels are unremarkable - Continue midodrine grams 3 times daily and wean as able Acute hypoxic and hypercapnic respiratory failure secondary to right lower lobe pneumonia and acute exacerbation of COPD - Patient was hypercapnic on admission but also has acidosis from metabolic changes - Continue mechanical ventilation - Continue Solu-Medrol 40 every 8 - Continue scheduled and as needed nebulizers - Sputum cultures pending - Continue antibiotics as ordered - Vent management per critical care medicine Troponin elevation - Could be demand ischemia but also could be NSTEMI - Echocardiogram shows significant wall motion abnormality with newly depressed EF compared to previous - Continue heparin drip as initiated yesterday after results of echo - Consult cardiology Cardiomyopathy - EF has dropped from 35 to 15% on most recent echocardiogram - Acuity is likely related to sepsis however could be related to ischemia - No reason for diuresis at this time - Off pressors and blood pressure stable so we will add low-dose Coreg 3.125 twice daily and monitor hemodynamics closely - Add Jardiance 10 mg daily - Add other goal-directed therapies as able - Cardiology consult is pending-Case discussed with Dr. Kenny hampton yesterday Atrial fibrillation - Patient has now reverted back to normal sinus rhythm - Beta-barber added - Per family this is not a new diagnosis and I think she has had atrial fibrillation before however I cannot find it in an old cardiology note - Will transition to oral anticoagulation as able Hyperglycemia-acute - A1c was 5.2 - Blood sugars are elevated due to acute illness - Will continue to monitor Hypophosphatemia - K-Phos bolus given - Repeat a.m. Severe right subclavian stenosis - Continue medical therapy and outpatient follow-up with cardiology and vascular surgery - Avoid blood pressures on right side CKD stage 2 - Continue to monitor clinically - currently stable Chronic normocytic anemia - Hemoglobin is stable - Will continue to monitor with anticoagulation Essential hypertension/hyperlipidemia -patient hypotensive on presentation - Hold antihypertensives - Continue statin therapy GERD/history of GI bleed - Transition IV PPI to p.o. if extubated - EGD on 06/24/2024 showed nonbleeding gastric ulcer Rheumatoid arthritis - Patient is not on any DMARDs or steroids - Continue outpatient follow-up Mild cognitive impairment - Increases risk for delirium - If occasionally becomes agitated will consider low-dose risperidone and scheduled melatonin 10 mg daily History of VTE - Heparin drip Anxiety/depression - Continue home duloxetine DVT prophylaxis - Heparin drip CODE STATUS -DNR CCA okay for short-term intubation Charges/Coding Visit Charges Inpatient E&M: 75447 Subs Hosp L2
[2024-12-29] MEDS: Aspirin E.C. 81 MG Tablet PO (07:58)
--- NOTE | 2024-12-29 08:04 | EKG12_ITS ---
Test Reason : afib Blood Pressure : */* mmHG Vent. Rate : 109 BPM Atrial Rate : 109 BPM P-R Int : 222 ms QRS Dur : 84 ms QT Int : 338 ms P-R-T Axes : -22 145 -50 degrees QTcB Int : 455 ms Sinus tachycardia with 1st degree A-V block with Premature atrial complexes Lateral infarct , age undetermined ST & T wave abnormality, consider inferior ischemia Abnormal ECG When compared with ECG of 28-Dec-2024 01:24, MANUAL COMPARISON REQUIRED DATA IS UNCONFIRMED Confirmed by FROYLAN MCKEON, KADI ([id number]), supervising editor news reel DAVID CERON ([id number]) on 12/31/2024 11:05:03 AM Referred By: Kenny Confirmed By: KADI GALEANO MD
[2024-12-29] MEDS: Chlorhexidine 15 ML PO (08:14)
--- NOTE | 2024-12-29 08:18 | CON.PCM.CA_ITS ---
Assessment & Plan Assessment/Plan (1) Left ventricular systolic dysfunction (LVSD): PLAN: Patient's echocardiogram in April 2024 reported LVEF of 35%. Cardiac catheterization done subsequently reported LVEF 50%. Presently on her current echocardiogram, she is noted to have severe LV systolic dysfunction. Estimated LVEF 15%. Severe tricuspid valve regurgitation. Mild mitral insufficiency. Suspect LV dysfunction with acute illness. Suspect Takotsubo's on reviewing echocardiogram. Will start on guideline directed medical therapy once her hemodynamics are stable. (2) Elevated troponin: PLAN: Likely type II with acute sepsis and LV systolic dysfunction. (3) Atrial fibrillation: PLAN: Telemetry monitoring with likely atrial fibrillation with rapid ventricular response. Will check an ECG. Patient has been started on heparin infusion. She will require a discussion about chronic anticoagulation before discharge home. (4) CAD (coronary artery disease): PLAN: History of mild CAD diagnosed on coronary angiography about 6 months ago. Monitor. (5) Shock: PLAN: Likely combination distributive and cardiogenic. Improved. Now on very low-dose of norepinephrine. Wean off as tolerated. (6) Right lower lobe pneumonia: PLAN: On antibiotics. (7) Stenosis of right subclavian artery: PLAN: History of right subclavian artery stenosis. Recommend checking blood pressures in left arm only. (8) Acute hypoxic respiratory failure: PLAN: On mechanical ventilation. Manage as per critical care. HPI Consult Data Date of Consult: 12/29/24 HPI Narrative Reason for Consultation: LV systolic dysfunction HPI Narrative: 84-year-old female with past medical history significant for nonischemic cardiomyopathy, LVEF noted to be 35% on echocardiogram in April 2024, minimal CAD reported on coronary angiography, and hypertension presented to the emergency room with complaints of shortness of breath. She was noted to be in hypoxic respiratory failure and shock. CT scan of the chest with suspected right lower lobe consolidation. She was intubated, started on mechanical ventilation. Vasopressor agents initiated for hemodynamic support for septic shock. An echocardiogram was done. It showed severe LV systolic dysfunction with estimated LVEF of 15%. Patient remains intubated. She is awake however. Responding appropriately to verbal commands. [facility] Medical History (Updated 12/29/24 @ 08:[address] Tanisha Cox MD) CAD (coronary artery disease) Neuropathic pain Chronic headache Hyperlipidemia Left knee pain Stenosis of right subclavian artery Quadriceps muscle rupture Post-menopausal Alcohol use Walker as ambulation aid Back pain Migraine headache Shortness of breath on exertion History of edema History of pain when walking History of stress test History of echocardiogram Cardiology follow-up encounter Depression Rheumatoid arthritis GI bleed Former smoker Migraines B12 deficiency Depressive disorder Mild cognitive impairment Essential (primary) hypertension Left ventricular hypertrophy Osteoporosis OAB (overactive bladder) Palpitations Fatigue GERD (gastroesophageal reflux disease) Dysphagia COPD (chronic obstructive pulmonary disease) Chronic ischemic colitis Chest pain DVT (deep venous thrombosis) Dyspnea Spondylosis Back pain Osteoarthritis Neoplasm of kidney Vitamin D deficiency Iron deficiency anemia Occipital neuralgia of right side Major depressive disorder Chronic headaches Home Medications ?Medication ?Instructions ?Recorded ?Last Taken ?Type aspirin 81 mg tablet,delayed 81 mg PO QDAY blood thinn er 05/06/24 06/19/24 History release (Adult Aspirin Regimen) atorvastatin 20 mg tablet 20 mg PO QDAY cholesterol 06/24/24 History duloxetine 20 mg capsule,delayed 20 mg PO DAILY mood 1 07/06/23 06/19/24 10:30 History release metoprolol succinate 50 mg 50 mg PO QDAY blood pressur e 05/06/24 06/24/24 History tablet,extended release 24 hr pantoprazole 40 mg tablet,delayed 40 mg PO QDAY GERD 1 07/22/23 06/19/24 10:30 History release losartan 50 mg tablet 50 mg PO QDAY #90 tabs 06/28 Unknown Rx sennosides 8.6 mg-docusate sodium 2 tab PO BID #120 ta bs 07/01/24 Unknown Rx 50 mg tablet (Stimulant Laxative Plus) hydrocodone-acetaminophen 5-325mg 1 tab PO Q8H PRN shawn n 09/20/24 Unknown History 5mg-325mg ondansetron 4 mg disintegrating 4 mg PO Q8H 11/13/24 U nknown History tablet cranberry extract 500 mg capsule 500 mg PO DAILY 12/28 Unknown History (Cranberry Concentrate) estradiol 1 mg/gram (0.1 %) 1 mg transdermal DAILY Unknown History transdermal gel packet (Divigel) methocarbamol 500 mg tablet 500 mg PO TID PRN PRN musc le spasm 12/28/24 Unknown History nortriptyline 10 mg capsule 25 mg PO QHS 12/28/24 Unkn own History Allergy/AdvReac Type Severity Reaction Status Date / Time No Known Allergies Allergy Verified 06/28/24 12:51 Family History Father CAD (coronary artery disease) CABG x 5 Skin cancer Brother Diabetes CAD (coronary artery disease) age 59 Skin cancer Mother Skin cancer Surgical History History of total left knee replacement History of cardiac catheterization History of esophagogastroduodenoscopy (EGD) History of left heart catheterization (~2002) History of bilateral knee replacement History of open reduction and internal fixation (ORIF) procedure History of right hip replacement Social History (Updated 12/28/24 @ 04:[address] Valentina Palomares MD) household members: spouse Smoking Status: Former smoker alcohol intake: current alcohol intake frequency: a few times a week substance use type: does not use Physical Exam Narrative Appears comfortable. Awake. Responding to verbal commands. Heart sounds 1 and 2 noted. Irregularly irregular. Chest clear to auscultation bilaterally. No ankle edema. Risk Stratification Risk Stratification Applicable: No Objective Data Vital Signs: Vital Signs Temp Pulse Resp BP Pulse Ox O2 Del Method O2 Flow Rate 98.7 F 105 H 18 132/48 H 100 Mechanical Ventilator 30 12/29/24 07:00 12/29/24 07:00 12/29/24 07:00 12/29/24 07:00 12/29/24 07:00 12/29/24 07:00 12/28/24 18:00 FiO2 30 12/29/24 07:00 Oxygen Flow Rate (L/min) 30 Oxygen Delivery Method Mechanical Ventilator Weight: 141 lb 1.533 oz Body Mass Index (BMI) 23.5 Intake & Output: Intake and Output for Last 24 Hours 12/27/24 12/28/24 12/29/24 23:59 23:59 23:59 Intake Total 4897.65 / 5018.05 736.20 / 736.20 Output Total 500 / 700 400 / 400 Balance 4397.65 / 4318.05 336.20 / 336.20 Lab / Micro Data 12/29/24 04:30 12/29/24 04:30 Labs: Laboratory Results - last 24 hr 12/28/24 06:35: Troponin T Hi Sens 4Hr Cancelled 12/28/24 23:30: APTT > 200.0 H* 12/29/24 04:30: WBC 11.8 H, RBC 3.28 L, Hgb 10.4 L, Hct 31.4 L, MCV 95.7, MCH 31.7, MCHC 33.1, RDW Std Deviation 49.2 H, RDW Coeff of Mark 14.0, Plt Count 185, MPV 9.5, Immature Gran % (Auto) 0.600, Neut % (Auto) 89.1 H, Lymph % (Auto) 6.3 L, [place] % (Auto) 3.8, Eos % (Auto) 0.0, Baso % (Auto) 0.2, Absolute Neuts (auto) 10.5 H, Absolute Lymphs (auto) 0.74 L, Nucleated RBC % 0, Sodium 140, Potassium 3.3, Chloride 109 H, Carbon Dioxide 16.3 L, Anion Gap 15, BUN 25 H, Creatinine 1.06, Estim Creat Clear Calc 34.12 L, Est GFR (MDRD) Non-Af 52 L, BUN/Creatinine Ratio 23.5 H, Glucose 216 H, Calcium 7.8, Phosphorus 1.9 L, Magnesium 1.8, Total Bilirubin 0.42, AST 72 H, ALT 40 H, Alkaline Phosphatase 53, Total Protein 5.3 L , Albumin 3.4, Globulin 2.0 L, Albumin/Globulin Ratio 1.7, TSH 0.446 Micro: Microbiology 12/28/24 05:30 Mucosa - Nasopharyngeal Respiratory Panel (PCR) - Final 12/28/24 05:25 Nasal Secretion MRSA (PCR) - Final 12/28/24 01:55 Urine Catheter - Yepez Legionella Antigen - Final 12/28/24 01:55 Urine Catheter - Yepez Streptococcus pneumoniae Antigen (M - Final ABG Data ABG results: ABG 12/29/24 06:53 Specimen Type ART Sample Site L Radial pH 7.45 Bicarbonate Actual 19.7 L Total CO2 21 Base Excess -4 L O2 Saturation 97 O2 % 30.0 ABG pCO2 28.5 L ABG pO2 87 Neal Test Positive Respiration Rate 18 O2 Delivery Device Adult Vent Vent Mode AC Tidal Volume 400.0 POC PEEP 5 Cardiology Labs/Tests 12/28/24 23:30: APTT > 200.0 H* 12/29/24 04:30: WBC 11.8 H, RBC 3.28 L, Hgb 10.4 L, Hct 31.4 L, MCV 95.7, MCH 31.7, MCHC 33.1, Plt Count 185, MPV 9.5, Immature Gran % (Auto) 0.600, Neut % (Auto) 89.1 H, Lymph % (Auto) 6.3 L, [place] % (Auto) 3.8, Eos % (Auto) 0.0, Baso % (Auto) 0.2, Absolute Neuts (auto) 10.5 H, Nucleated RBC % 0, Sodium 140, Potassium 3.3, Chloride 109 H, Carbon Dioxide 16.3 L, Anion Gap 15, BUN 25 H, Creatinine 1.06, Est GFR (MDRD) Non-Af 52 L, BUN/Creatinine Ratio 23.5 H, G lucose 216 H, Calcium 7.8, Phosphorus 1.9 L, Magnesium 1.8, Total Bilirubin 0.42 12/29/24 06:53: pH 7.45, Bicarbonate Actual 19.7 L, Base Excess -4 L, O2 Saturation 97, ABG pCO2 28.5 L, ABG pO2 87, Neal Test Positive Rhythm: EKG: ECHO: Stress Test: Cardiac Cath: PCI: CT Surgery: Holter monitor: EPS: PPM: CXR: Chest CT Scan: Radiography Diagnostic Testing: Radiology Impression Echocardiogram 12/28/24 07:34 Interpretation Summary There is a large sized apical, septal, anteroseptal, anterior, inferior, posterior, and lateral wall motion abnormality with hypokinesis to akinesis of the segments. Mildly dilated left ventricular cavity. Estimated LVEF 15%. Stage I diastolic dysfunction. Mild (1+) mitral valve insufficiency. Severe tricuspid valve insufficiency. Estimated RVSP 47 mmHg. Ordering Physician: Muna Lopez Performed By: Griffin Pal RCS Chest X-Ray 06/29/25 05:55 IMPRESSION: Tube placement. Possible right lung base consolidation. Consider progress imaging. Reading Location: [id number]
[2024-12-29] MEDS: Potassium Phosphate 40 MM in 0.9% Normal Saline (500mL Bag) 500 ML 62.5 MM IV (08:31)
[2024-12-29] MEDS: Azithromycin 500 MG in 0.9% Normal Saline (250mL Bag) 250 ML 255 MG IV (09:59)
--- NOTE | 2024-12-29 10:07 | PN.CC_ITS ---
Objective Data Objective Data Vital Signs: Vital Signs Last response 3 Temperature 37.1 C 12/29/24 09:00 Temperature Source Core 12/29/24 09:00 Pulse Rate 105 H 12/29/24 09:00 Pulse Strength Weak (1+) 12/29/24 08:55 Respiratory Rate 12 12/29/24 09:00 Respiratory Effort Mechanically Ventilated 12/29/24 08:27 Respiratory Depth Normal 12/29/24 08:27 Respiratory Pattern Normal 12/29/24 08:27 Blood Pressure 106/73 12/29/24 09:30 Blood Pressure Mean 84 12/29/24 09:30 Blood Pressure Source Monitor 12/29/24 09:30 Blood Pressure Position Semi-Fowlers 12/29/24 07:00 Blood Pressure Location Left Arm 12/29/24 07:00 Pulse Ox 100 12/29/24 09:00 Oxygen Delivery Method Mechanical Ventilator 12/29/24 09:00 Oxygen Flow Rate (L/min) 30 12/28/24 18:00 Fraction of Inspired Oxygen (FIO2) 30 12/29/24 09:00 I&O: I&O Last 24 Hours 3 12/28/24 12/28/24 12/29/24 11:59 23:59 11:59 Intake Total 2837.96 / 5018.05 2059.69 / 5018.05 1220.04 / 1220.04 Output Total 300 / 700 200 / 700 400 / 400 Balance 2537.96 / 4318.05 1859.69 / 4318.05 820.04 / 820.04 I&O: Total Stay 3 12/28/24 01:21 thru 12/29/24 09:32 Intake Total 6117.69 Output Total 900 Balance 5217.69 Current Meds Ordered / Administered: Current meds ordered / Administered 3 Generic Name Dose Route Start Last Admin Trade Name Freq PRN Reason Stop Dose Admin Acetaminophen 650 mg 12/28/24 05:17 Acetaminophen 650 Mg Suppository RC Q4H PRN PRN Fever, pain 1-10 Acetaminophen 650 mg 12/28/24 05:17 Acetaminophen 325 Mg Tablet PO Q4H PRN PRN Fever, pain 1-10/10 Albuterol/Ipratropium 3 ml 12/28/24 07:15 12/29/24 06:36 Ipratropium/Albuterol Sulfate 3 Ml Ampul.Neb INHALATION 3 ml Q4H.RT SAMY Administration Aspirin 81 mg 12/28/24 08:00 12/29/24 07:58 Aspirin E.C. 81 Mg Tablet PO 81 mg BREAKFAST SAMY Administration Atorvastatin Calcium 20 mg 12/28/24 22:00 12/28/24 21:48 Atorvastatin Calcium 20 Mg Tablet PO 20 mg QHS SAMY Administration Chlorhexidine Gluconate 15 ml 12/28/24 10:00 12/29/24 08:14 Chlorhexidine 15 Ml PO 15 ml BID SAMY Administration Chlorhexidine Gluconate 1 each 12/28/24 10:00 12/28/24 06:17 Chlorhexidine Gluc 2% Cloth 1 Each [place]elette TOPICAL 1 each DAILY SAMY Administration Duloxetine HCl 20 mg 12/28/24 10:00 12/29/24 07:58 Duloxetine Hcl 20 Mg Capsule PO 20 mg DAILY SAMY Administration Heparin Sodium (Porcine) 0 unit 12/28/24 16:20 Heparin Injection (Vial) 5,000 Unit/Ml Vial IV UD PRN dose adjustment Protocol Piperacillin Sod/Tazobactam 50 mls @ 12.5 mls/hr 12/28/24 14:00 12/29/24 09:32 Sod 3.375 gm/ Sodium Chloride IV Infused Q8 SAMY Infusion Vancomycin IV-PHARMACY TO DOSE 500 mls @ 250 mls/hr 12/28/24 05:17 1 each/ Sodium Chloride IV X1 PRN Rx to Dose Protocol Pantoprazole Sodium 40 mg/ 100 mls @ 330 mls/hr 12/28/24 10:00 12/28/24 22:10 Sodium Chloride IV Infused Q12 SAMY Infusion Propofol 1,000 mg in 100 mls @ 3.486 mls/hr 12/28/24 05:17 12/29/24 09:30 Diprivan CONT INF 0 mcg/kg/min .Q12H SAMY 0 mls/hr Titration Protocol 10 MCG/KG/MIN Fentanyl 100 mls @ 5 mls/hr 12/28/24 05:17 12/29/24 09:30 CONT INF 0 mcg/hr UD SAMY 0 mls/hr Titration Protocol 50 MCG/HR Sodium Chloride 250 mls @ 15 mls/hr 12/28/24 05:19 IV .[id number] PRN Saline Flush Sodium Chloride 250 mls @ 15 mls/hr 12/28/24 05:19 IV .[id number] PRN Additional IVPB Infusion Vancomycin HCl 750 mg/ Sodium 265 mls @ 250 mls/hr 12/29/24 03:30 12/29/24 04:56 Chloride IV Infused Q24H SAMY Infusion Azithromycin 500 mg/ Sodium 255 mls @ 255 mls/hr 12/28/24 10:00 12/29/24 09:59 Chloride IV 255 mls/hr Q24 SAMY Administration Enteral Nutritional Formula 1,000 mls @ 45 mls/hr 12/28/24 09:10 12/29/24 08:35 Vital Af 1.2 Neftali Liquid GT Infused .[id number] SAMY Infusion Heparin Sodium/Dextrose 25,000 units in 250 mls @ 8 mls/hr 12/28/24 16:20 12/29/24 02:45 CONT INF 500 units/hr .[id number] SAMY 5 mls/hr Titration Protocol As Directed Norepinephrine Bitartrate 8 mg 250 mls @ 9.375 mls/hr 12/28/24 20:30 12/29/24 09:30 / Sodium Chloride CONT INF 0 mcg/min .[id number] SAMY 0 mls/hr Titration Protocol 5 MCG/MIN Potassium Phosphate 40 mm/ 513.3333 mls @ 62.5 mls/hr 12/29/24 07:30 12/29/24 08:31 Sodium Chloride IV 12/29/24 15:42 62.5 mls/hr X1 ONE Administration Insulin Human Lispro 0 unit 12/29/24 12:00 Insulin Lispro 100 Unit/Ml Insuln.Pen SC Q6 ASMY Protocol Lorazepam 0.5 mg 12/28/24 09:18 12/28/24 15:26 Lorazepam 2 Mg/Ml Wch Syringe IV 0.5 mg Q3H PRN Administration AGITATION Methylprednisolone Sodium Succinate 40 mg 12/28/24 05:17 12/29/24 05:27 Methylprednisolone Sod Succ 40 Mg/Ml Vial IV 40 mg Q8 SAMY Administration Midodrine 10 mg 12/28/24 17:00 12/29/24 07:58 Midodrine Hcl 5 Mg Tablet PO 10 mg TIDCM SAMY Administration Ondansetron HCl 4 mg 12/28/24 05:17 Ondansetron 4 Mg/2 Ml Vial IV Q8H PRN PRN NAUSEA/VOMITING Prochlorperazine Edisylate 5 mg 12/28/24 05:17 Prochlorperazine 10 Mg/2 Ml Vial IV Q4H PRN PRN Breakthrough Nausea/Vomiting Sodium Chloride 5 ml 12/28/24 05:17 Sodium Cl For Inhalation 15 Ml Vial.Neb. INHALATION Q5M PRN Suctioning Sodium Chloride 10 - 40 ml 12/28/24 05:19 12/29/24 02:51 0.9% Saline Lock 10 Ml Syringe IV 40 ml UD PRN Administration SALINE FLUSH Vancomycin Protocol 1 lab 12/30/24 02:00 Vancomycin Trough/Random Due 12/30/24 04:00 DAILY [facility] Lab / Micro Data Attestation: I reviewed the patient's lab results. 12/29/24 04:30 12/29/24 04:30 Labs: Laboratory Results - last 24 hr 12/28/24 06:35: Troponin T Hi Sens 4Hr Cancelled 12/28/24 23:30: APTT > 200.0 H* 12/29/24 04:30: WBC 11.8 H, RBC 3.28 L, Hgb 10.4 L, Hct 31.4 L, MCV 95.7, MCH 31.7, MCHC 33.1, RDW Std Deviation 49.2 H, RDW Coeff of Mark 14.0, Plt Count 185, MPV 9.5, Immature Gran % (Auto) 0.600, Neut % (Auto) 89.1 H, Lymph % (Auto) 6.3 L, [place] % (Auto) 3.8, Eos % (Auto) 0.0, Baso % (Auto) 0.2, Absolute Neuts (auto) 10.5 H, Absolute Lymphs (auto) 0.74 L, Nucleated RBC % 0, Sodium 140, Potassium 3.3, Chloride 109 H, Carbon Dioxide 16.3 L, Anion Gap 15, BUN 25 H, Creatinine 1.06, Estim Creat Clear Calc 34.12 L, Est GFR (MDRD) Non-Af 52 L, BUN/Creatinine Ratio 23.5 H, Glucose 216 H, Calcium 7.8, Phosphorus 1.9 L, Magnesium 1.8, Total Bilirubin 0.42, AST 72 H, ALT 40 H, Alkaline Phosphatase 53, Total Protein 5.3 L , Albumin 3.4, Globulin 2.0 L, Albumin/Globulin Ratio 1.7, TSH 0.446 Micro: Microbiology 12/28/24 05:30 Mucosa - Nasopharyngeal Respiratory Panel (PCR) - Final 12/28/24 05:25 Nasal Secretion MRSA (PCR) - Final ABG Data ABG results: ABG 12/29/24 06:53 Specimen Type ART Sample Site L Radial pH 7.45 Bicarbonate Actual 19.7 L Total CO2 21 Base Excess -4 L O2 Saturation 97 O2 % 30.0 ABG pCO2 28.5 L ABG pO2 87 Neal Test Positive Respiration Rate 18 O2 Delivery Device Adult Vent Vent Mode AC Tidal Volume 400.0 POC PEEP 5 Imaging Radiology Impression Echocardiogram 12/28/24 07:34 Interpretation Summary There is a large sized apical, septal, anteroseptal, anterior, inferior, posterior, and lateral wall motion abnormality with hypokinesis to akinesis of the segments. Mildly dilated left ventricular cavity. Estimated LVEF 15%. Stage I diastolic dysfunction. Mild (1+) mitral valve insufficiency. Severe tricuspid valve insufficiency. Estimated RVSP 47 mmHg. Ordering Physician: Muna Lopez Performed By: Griffin Pal [facility] Chest X-Ray 12/29/24 05:55 IMPRESSION: Tube placement. Possible right lung base consolidation. Consider progress imaging. Reading Location: [place] [id number] Assessment and Plan . Assessment and plan: ICU Problems: Acute hypoxemic respiratory failure RLL PNA Sepsis Mechanical ventilation Plan: extubate today supplemental O2 PRN BIPAP QHS [id number] PT/OT consultation for early mobility discontinue vancomycin cont zosyn, dc azithromycin Brent Magana MD PCC[facility] Critical Care Time: 55 min The entirety of this encounter was done via Telemedicine Physical Exam Narrative Appears comfortable. Awake. Responding to verbal commands. Heart sounds 1 and 2 noted. Irregularly irregular. Chest clear to auscultation bilaterally. No ankle edema. Const alert and no apparent distress General Appearance: cooperative, well developed and patient mechanically ventilated HEENT normocephalic, head/scalp atraumatic and moist oral mucous membranes Eyes PERRL, EOMs intact bilaterally, conjunctivae normal and no scleral icterus Neck full ROM and no JVD Resp normal respiratory effort and no use of accessory muscles Auscultation: clear to auscultation bilaterally Cardio regular rate and regular rhythm no CVA tenderness Skin no rashes or lesions noted Neuro CN's II-XII intact bilaterally and moves all extremities Psych cooperative and affect normal Subjective Subjective CC: unobtainable 2/2 intubation, sedation HPI: 84yoF with CHFrEF/LCSD, cAfib, p/w RLL PNA and hypoxemic RF requiring intubation. 12/28 - no pressors, RASS -1 for mech vent and apparent hypoxemic RF 12/29 - SAT and SBT passed with NIF -50 and VC >1kcc and cuff leak present. ROS could not be obtained 2/2 intubation, sedation, mehcnaical ventilation
[2024-12-29 11:51] LABS: Partial Thromboplast Time 87.0 Seconds (24.1-36.2)
[2024-12-29] MEDS: Acetaminophen/Butalbital/Caffe 1 Tablet PO ×2 (17:51→21:54)
[2024-12-29 18:45] LABS: Partial Thromboplast Time 54.6 Seconds (24.1-36.2)
[2024-12-30] VITALS (15 sets, daily range): BP systolic 113–135; BP diastolic 55–75; PULSE 58–78; RESP 16–27; TEMP 36.2–37.1; O2SAT 93–100; BMI 22.8
[2024-12-30 00:49] LABS: Partial Thromboplast Time 45.0 Seconds (24.1-36.2)
[2024-12-30] MEDS: Piperacil/Tazobactam 3.375 GM in 0.9% Normal Saline (50mL MB+) 50 ML IV ×3 (05:08→22:50)
--- NOTE | 2024-12-30 06:35 | PN.CC_ITS ---
Assessment & Plan Assessment/Plan (1) Septic shock: PLAN: Plan RECOMMENDATIONS: 1. Continue antimicrobials pending finalized culture results. 2. Wean supplemental oxygen to maintain saturations at or above 90%. 3. IV steroids daily for now. 4. Continue scheduled midodrine. 5. Encourage incentive spirometer use and mobilize patient as tolerated. 6. The patient is medically stable for transfer out of the intensive care unit. IMPRESSIONS: 1. Septic shock Resolved. The patient was initially admitted with septic shock with concern for underlying pneumonia as precipitating etiology. The patient has since been weaned from vasopressor support and remains hemodynamically stable. Plan to continue antimicrobials, pending finalized sputum culture results. 2. Acute combined respiratory failure likely secondary to COPD exacerbation related to pneumonia The patient has since been liberated from invasive mechanical ventilatory support. Continue to wean supplemental oxygen to maintain saturations at or above 90%. The patient will be continued on scheduled bronchodilators with plans to decrease steroids to once daily. At discharge, recommend transitioning to prednisone 40 mg daily x 5 days. Encourage incentive spirometer use and mobilize patient as tolerated. 3. History of cardiomyopathy/atrial fibrillation Medical management per cardiology recommendations. 4. History of chronic kidney disease/anemia/hypertension/hyperlipidemia/GERD/rheumatoid arthritis Complicates care, management, recovery and prognosis. Continue supportive measures as noted above. This note was generated with [employer] dictation software. It may contain incorrect words, spelling, and punctuation that were not noted in checking the note before signing. Subjective Subjective The patient was seen and examined at the bedside this morning. Events from the last 24 hours have been reviewed. The patient is currently afebrile, hemodynamically stable and maintaining appropriate oxygen saturations on 2 L/min via nasal cannula. The patient is currently documented to be overall net +5.1 L for the hospitalization. Objective Data Objective Data The patient's most recent lab work, culture data and imaging studies have all been personally reviewed. Sputum culture is currently pending. Vital Signs: Vital Signs Temp Pulse Resp BP Pulse Ox O2 Del Method O2 Flow Rate 97.7 F L 78 24 H 116/60 98 Nasal Cannula 2 12/30/24 04:00 12/30/24 06:00 12/30/24 06:00 12/30/24 06:00 12/30/24 06:00 12/30/24 06:00 12/30/24 06:00 FiO2 30 06/29/25 09:00 Oxygen Flow Rate (L/min) 2 Oxygen Delivery Method Nasal Cannula Weight: 136 lb 14.513 oz Body Mass Index (BMI) 22.8 Intake & Output: Intake and Output for Last 24 Hours 12/28/24 12/29/24 12/30/24 23:59 23:59 23:59 Intake Total 4897.65 / 5018.05 2111.7033 / 2111.7033 74.27 / 74.27 Output Total 500 / 700 1450 / 1450 Balance 4397.65 / 4318.05 661.7033 / 661.7033 74.27 / 74.27 Lab / Micro Data Attestation: I reviewed the patient's lab results. 12/29/24 04:30 12/30/24 06:55 Labs: Laboratory Results - last 24 hr 12/29/24 11:17: APTT 87.0 H 12/29/24 17:57: APTT 54.6 H 12/30/24 00:20: APTT 45.0 H Micro: Microbiology 12/28/24 11:15 Sputum, Induced/Lukens Gram Stain - Final 12/28/24 05:30 Mucosa - Nasopharyngeal Respiratory Panel (PCR) - Final 12/28/24 05:25 Nasal Secretion MRSA (PCR) - Final 12/28/24 01:55 Urine Catheter - Yepez Legionella Antigen - Final 12/28/24 01:55 Urine Catheter - Yepez Streptococcus pneumoniae Antigen (M - Final 12/28/24 01:58 Mucosa - Nasopharyngeal SARS-CoV-2, Influenza & RSV (PCR) - Final ABG Data ABG results: ABG 12/29/24 06:53 Specimen Type ART Sample Site L Radial pH 7.45 Bicarbonate Actual 19.7 L Total CO2 21 Base Excess -4 L O2 Saturation 97 O2 % 30.0 ABG pCO2 28.5 L ABG pO2 87 Neal Test Positive Respiration Rate 18 O2 Delivery Device Adult Vent Vent Mode AC Tidal Volume 400.0 POC PEEP 5 Physical Exam Const alert, oriented x3 and no apparent distress General Appearance: cooperative HEENT normocephalic and head/scalp atraumatic Eyes PERRL, EOMs intact bilaterally and conjunctivae normal Neck supple General: trachea midline Chest inspection of chest normal Resp normal respiratory effort Auscultation: Negative for rales, rhonchi or wheezes Cardio regular rate and regular rhythm GI normal to inspection, nondistended, normoactive bowel sounds Extremity no clubbing, cyanosis or edema Skin no rashes or lesions noted Neuro CN's II-XII intact bilaterally, moves all extremities and no focal motor deficits Psych cooperative and affect normal Charges/Coding Visit Charges Inpatient E&M: 68019 Subs Hosp L2
[2024-12-30] MEDS: 0.9% Saline Lock 10 ML Syringe IV (06:52)
--- NOTE | 2024-12-30 07:19 | PN.HOSP_ITS ---
Reason for Visit Reason for Visit: Shortness of Breath Objective Data Objective Data Vital Signs: Vital Signs Temp Pulse Resp BP Pulse Ox O2 Del Method O2 Flow Rate 97.7 F L 60 27 H 113/60 99 Nasal Cannula 2 12/30/24 04:00 12/30/24 07:00 12/30/24 07:00 12/30/24 07:00 12/30/24 07:00 12/30/24 07:00 12/30/24 07:00 FiO2 30 12/29/24 09:00 Oxygen Flow Rate (L/min) 2 Oxygen Delivery Method Nasal Cannula Weight: 62.1 kg Body Mass Index (BMI) 22.8 Intake & Output: Intake and Output for Last 24 Hours 12/28/24 12/29/24 12/30/24 23:59 23:59 23:59 Intake Total 4897.65 / 5018.05 2111.7033 / 2111.7033 74.27 / 74.27 Output Total 500 / 700 1450 / 1450 700 / 700 Balance 4397.65 / 4318.05 661.7033 / 661.7033 -625.73 / -625.73 Lab / Micro Data 12/29/24 04:30 12/30/24 06:55 Labs: Laboratory Results - last 24 hr 12/29/24 11:17: APTT 87.0 H 12/29/24 17:57: APTT 54.6 H 12/30/24 00:20: APTT 45.0 H Micro: Microbiology 12/28/24 11:15 Sputum, Induced/Lukens Gram Stain - Final 12/28/24 05:30 Mucosa - Nasopharyngeal Respiratory Panel (PCR) - Final 12/28/24 05:25 Nasal Secretion MRSA (PCR) - Final 12/28/24 01:55 Urine Catheter - Yepez Legionella Antigen - Final 12/28/24 01:55 Urine Catheter - Yepez Streptococcus pneumoniae Antigen (M - Final 12/28/24 01:58 Mucosa - Nasopharyngeal SARS-CoV-2, Influenza & RSV (PCR) - Final Physical Exam Const alert, oriented x3, no apparent distress, average body habitus and well nourished Constitutional Narrative: Elderly, white female, sitting up in bed watching television, appears comfortable, nontoxic HEENT head/scalp atraumatic and moist oral mucous membranes HEENT Narrative: Mallampati 2, no thrush, ulceration on the surface of her upper palate Head and Scalp: normocephalic Eyes conjunctivae normal Eyes Narrative: No scleral icterus Neck supple Neck Narrative: Trachea midline Resp normal respiratory effort, no retractions, no use of accessory muscles and clear to auscultation bilaterally Resp Narrative: Slightly diminished in right base but otherwise clear Auscultation: Negative for rales, rhonchi or wheezes Cardio regular rate, S1 normal heart sound, S2 normal heart sound, no murmurs, no rub, no gallops and no clicks Cardio Narrative: Irregularly irregular rhythm with good rate control GI normal to inspection, nondistended, normoactive bowel sounds, soft to palpation and non-tender Extremity no clubbing, cyanosis or edema Extremity Narrative: 2+ pedal and radial pulses Skin Skin Narrative: Left groin triple-lumen catheter clean dry and intact Neuro oriented x3, moves all extremities and no focal motor deficits Sensorium / Orientation: alert Speech: speech normal Psych affect normal Psych Narrative: Extremely pleasant, interacts appropriately, answers questions Assessment & Plan Assessment/Plan (1) Septic shock: (2) Acute hypoxic respiratory failure: (3) Metabolic acidosis with respiratory acidosis: (4) Hyperglycemia: (5) Elevated troponin: (6) Right lower lobe pneumonia: (7) 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, <= 40%): (8) Non-ischemic cardiomyopathy: (9) Atrial fibrillation: PLAN: Plan Septic shock secondary to right lower lobe pneumonia - Septic shock resolved - Wean midodrine to 5 mg 3 times daily - Urine and blood cultures are unremarkable - Discontinue vancomycin - Continue Zosyn day 2 of 7 -Wean steroids to 40 mg daily with likely transition to oral steroids tomorrow for short burst of 40 mg oral for 5 days Acute hypoxic and hypercapnic respiratory failure secondary to right lower lobe pneumonia and acute exacerbation of COPD - Patient was hypercapnic on admission but also has acidosis from metabolic changes - Extubated on 12/29/2024 and doing well on room air - Transition to Solu-Medrol 40 daily with plans for transition to oral prednisone tomorrow for 5 days burst - Continue scheduled and as needed nebulizers - Sputum cultures remain pending - Continue Zosyn for day 2 of 7 Troponin elevation -Secondary to Takotsubo cardiomyopathy and demand ischemia from sepsis - Echocardiogram shows significant wall motion abnormality with newly depressed EF compared to previous - Discontinue heparin drip - Likely related to Takotsubo cardiomyopathy Takotsubo cardiomyopathy - EF has dropped from 35 to 15% on most recent echocardiogram -Continue carvedilol 3.125 mg twice daily -Continue Jardiance 10 mg daily - Add losartan 25 mg daily which is half her home dose - Will wean midodrine to 5 mg p.o. 3 times daily and discontinue as able - Add other goal-directed therapies as able - Cardiology is following - Will need outpatient follow-up Difficulty swallowing - Speech therapy consult - Patient complains that she is having some difficulty swallowing Atrial fibrillation -Currently in rate controlled A-fib -Continue carvedilol -Discontinue heparin drip -I did discuss with the patient the reason for anticoagulation. She has minimal amount of falls. We discussed the risks and benefits of utilizing Eliquis and she did seem to understand. Will discuss further with family in the future however we will start Eliquis 5 mg p.o. twice daily for now with the intent of discharge home with Eliquis at that time. Hyperglycemia-acute - A1c was 5.2 - Blood sugars are elevated due to acute illness - Will continue to monitor Hypophosphatemia -Resolved Severe right subclavian stenosis - Continue medical therapy and outpatient follow-up with cardiology and vascular surgery - Avoid blood pressures on right side CKD stage 2 - Continue to monitor clinically - currently stable Chronic normocytic anemia - Hemoglobin is stable - Will continue to monitor with anticoagulation Essential hypertension/hyperlipidemia -patient hypotensive on presentation - Hold antihypertensives - Continue statin therapy GERD/history of GI bleed - Transition IV PPI to p.o. 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
[2024-12-30 07:46] LABS: Magnesium 2.1 mg/dL (1.5-2.2)
[2024-12-30 07:54] LABS: AST(SGOT) 51 U/L (<=31); Alanine Aminotransfer ALT/SGPT 35 U/L (<=34); Albumin, Serum 3.5 g/dL (3.4-4.8); Alkaline Phosphatase 48 U/L (35-104); Anion Gap 11 (5-15); BUN 24 mg/dL (4-19); BUN/Creat Ratio 26.4 RATIO (10-20); Calcium,Total 8.2 mg/dL (7.6-11.0); Carbon Dioxide 20.9 mmol/L (21.0-32.0); Chloride 109 mmol/L (98-108); Estimated Creatinine Clearance 40.18 ml/min (50-250); Globulin 1.9 g/dL (2.2-4.2); Glucose 131 mg/dL (70-99); Potassium 4.7 mmol/L (3.3-5.1)
[2024-12-30 08:20] LABS: Partial Thromboplast Time 45.9 Seconds (24.1-36.2)
[2024-12-30] MEDS: Aspirin E.C. 81 MG Tablet PO (08:50)
--- NOTE | 2024-12-30 10:17 | CASEMGMT ---
DARYL RAMOS Assessment Pt extubated on 12/29. Face to Face with patient for initial transition planning/care coordination assessment. DARYL RAMOS introduced self and role at [facility], pt voices understanding. Pt is A&Ox4 and is resting comfortably in bed and is calm. Pt daughter and at bedside. Care providers, pharmacy, and demographics verified. Admitting dx: Septic Shock, RF LACE Strata: 2 PCP: Franc Lau Specialists: Dani (PM), Friend (GI), Jazzmine RETANA (Pulm) Preferred Pharmacy: [facility] Insurance: 0xdata Prescription Benefit: Yes LNOK: Bladimir Prajapati (H), Ro Huntley (Daughter & POA) Living Arrangements: Pt lives with her in a two story home with 1 step to enter and a FFSU. ADLs/IADLs: Pt requires assistance and the pt and daughter are able to provide this help. Ro also states that she is working on getting pvt duty aid established for the pt and states that this will get finalized on December 31 through [facility]. Transportation: , Daughter. Denies concerns DME: Rollator, W/C, FWW, Cane, BP Monitor, Walk in shower with GB and chair, Raised TS, BSC, inhaler. Pt reports that she has a history of home oxygen use through [facility], but just recently returned all of her equipment after a follow up visit with Dr Dover. If pt qualifies for home oxygen again, prefers [facility] and denies wanting to review a list of options. HHC/SNF: Hx @ [facility] TCU. Denies denies HH history Pt?s goal: Return to PLOF Plan: TBD. Anticipant SNF vs Home with HHC. See PT eval 12/29. If pt does not do well with PT again, pt prefers TCU again for SNF placement. If pt does well and progresses during hospitalization, pt then would prefer to go home with skilled HHC and possible oxygen again. Pt is projected to transfer to PCU today. Report given to [employer] CM. RACHEL and KATELYN to follow. Griselda Arthur RN, CM
[2024-12-30] MEDS: Acetaminophen/Butalbital/Caffe 1 Tablet PO ×2 (10:57→23:04)
[2024-12-30] MEDS: APIXABAN 5 MG TABLET PO ×2 (17:19→22:47)
[2024-12-31] VITALS (7 sets, daily range): BP systolic 98–151; BP diastolic 62–84; PULSE 67–86; RESP 18–22; TEMP 36.2–36.6; O2SAT 93–100; BMI 23.7
--- NOTE | 2024-12-31 03:29 | CPS ---
nebulizers not given through the night..Pt wanted to sleep, RN will call if pt is awake.
--- NOTE | 2024-12-31 04:20 | RAD_ITS ---
PROCEDURE: CHEST 1 VIEW (PORTABLE) 12/31/2024 REASON FOR EXAM: ETT PLACEMENT TECHNIQUE: Frontal view of the chest. COMPARISON: 12/29/2024 FINDINGS: Despite the history, the patient does not have an ETT. Interval removal of ETT and enteric tube. Normal heart size. Slight under aeration at the lung bases. No consolidation, effusion, or pneumothorax. RAD/Chest 1 View (Portable) IMPRESSION: Tube removal. Small bibasilar atelectasis. [facility]
[2024-12-31 05:57] LABS: Hematocrit 30.0 % (37-47); Hemoglobin 9.8 g/dL (12.0-15.0); Immature Granulocytes Count 0.050 X10^3/uL (0.0-0.0); Mean Corp Hgb Conc 32.7 g/dL (32-36); Mean Corpuscular Volume 98.4 fL (81-99); Mean Platelet Vol. 9.9 fl (6.2-12.0); NRBC Flagged by Analyzer 0 % (0-5); Platelet Count 172 K/mm3 (150-450); RBC Distribution Width CV 14.4 % (11.6-14.6); RBC Distribution Width SD 51.7 fl (35.1-43.9); Red Blood Count 3.05 M/mm3 (4.2-5.4); White Blood Count 10.8 K/mm3 (4.4-11.0)
[2024-12-31] MEDS: Piperacil/Tazobactam 3.375 GM in 0.9% Normal Saline (50mL MB+) 50 ML IV ×3 (05:57→21:15)
--- NOTE | 2024-12-31 06:38 | PN.CC_ITS ---
Assessment & Plan Assessment/Plan (1) Septic shock: PLAN: Plan RECOMMENDATIONS: 1. Continue antimicrobials to complete 7 days of therapy. 2. Wean supplemental oxygen to maintain saturations at or above 90%. 3. Transition from IV steroids to prednisone 40 mg daily x 5 days. 4. Encourage incentive spirometer use and mobilize patient as tolerated. IMPRESSIONS: 1. Septic shock Resolved. The patient was initially admitted with septic shock with concern for underlying pneumonia as precipitating etiology. The patient has since been weaned from vasopressor support and remains hemodynamically stable. Plan to continue antimicrobials to complete 7 days of therapy. 2. Acute combined respiratory failure likely secondary to COPD exacerbation related to pneumonia The patient has since been liberated from invasive mechanical ventilatory support. Continue to wean supplemental oxygen to maintain saturations at or above 90%. Plan to continue scheduled bronchodilators as ordered. IV steroids will be transition to prednisone 40 mg daily, with plans to complete a 5-day burst. Continue to encourage incentive spirometer use and mobilize patient as tolerated. 3. History of cardiomyopathy/atrial fibrillation Medical management per cardiology recommendations. 4. History of chronic kidney disease/anemia/hypertension/hyperlipidemia/GERD/rheumatoid arthritis Complicates care, management, recovery and prognosis. Continue supportive measures as noted above. This note was generated with [employer] dictation software. It may contain incorrect words, spelling, and punctuation that were not noted in checking the note before signing. Subjective Subjective The patient was seen and examined at the bedside this morning. Events from the last 24 hours have been reviewed. The patient is currently afebrile, hemodynamically stable and maintaining appropriate oxygen saturations on 2 L/min via nasal cannula. The patient is documented to be overall net +4.9 L for the hospitalization. White blood cell count is normal. Hemoglobin is stable at 9.8 g/dL. Chemistry profile was unremarkable. Objective Data Objective Data The patient's most recent lab work, culture data and imaging studies have all been personally reviewed. Sputum culture has not demonstrated any growth to date. Vital Signs: Vital Signs Temp Pulse Resp BP Pulse Ox O2 Del Method O2 Flow Rate 97.9 F 67 18 135/82 H 99 Nasal Cannula 2 12/31/24 05:46 12/31/24 05:46 12/31/24 05:46 12/31/24 05:46 12/31/24 05:46 12/31/24 05:46 12/31/24 05:46 FiO2 30 12/29/24 09:00 Oxygen Flow Rate (L/min) 2 Oxygen Delivery Method Nasal Cannula Weight: 142 lb 6.698 oz Body Mass Index (BMI) 23.7 Intake & Output: Intake and Output for Last 24 Hours 12/29/24 12/30/24 12/31/24 23:59 23:59 23:59 Intake Total 2111.7033 / 2111.7033 484.77 / 484.77 50 / 50 Output Total 1450 / 1450 700 / 700 Balance 661.7033 / 661.7033 -215.23 / -215.23 50 / 50 Lab / Micro Data Attestation: I reviewed the patient's lab results. 12/31/24 05:37 12/31/24 05:37 Labs: Laboratory Results - last 24 hr 12/30/24 06:55: APTT 45.9 H, Sodium 140, Potassium 4.7, Chloride 109 H, Carbon Dioxide 20.9 L, Anion Gap 11, BUN 24 H, Creatinine 0.90, Estim Creat Clear Calc 40.18 L, Est GFR (MDRD) Non-Af 63, BUN/Creatinine Ratio 26.4 H, Glucose 131 H, Calcium 8.2, Magnesium 2.1, Total Bilirubin 0.39, AST 51 H, ALT 35, Alkaline Phosphatase 48, Total Protein 5.4 L, Albumin 3.5, Globulin 1.9 L, Albumin/Globulin Ratio 1.9 12/30/24 23:02: POC Glucose 111 H 12/31/24 05:37: WBC 10.8, RBC 3.05 L, Hgb 9.8 L, Hct 30.0 L, MCV 98.4, MCH 32.1 H, MCHC 32.7, RDW Std Deviation 51.7 H, RDW Coeff of Mark 14.4, Plt Count 172, MPV 9.9, Immature Gran % (Auto) 0.500, Neut % (Auto) 72.0 H, Lymph % (Auto) 17.9 L, Calloway % (Auto) 8.4, Eos % (Auto) 0.8, Baso % (Auto) 0.4, Absolute Neuts (auto) 7.8 H, Absolute Lymphs (auto) 1.92, Nucleated RBC % 0 12/31/24 05:48: POC Glucose 104 Micro: Microbiology 12/28/24 11:15 Sputum, Induced/Lukens Gram Stain - Final 12/28/24 11:15 Sputum, Induced/Lukens Respiratory Culture - Final Mixed normal respiratory yong. No Streptococcus pneumoniae, beta-hemolytic Streptococcus or Staphylococcus aureus isolated. 12/28/24 01:58 Urine, Catheterized Urine Culture - Final Culture exhibits no growth. 12/28/24 01:35 Blood Culture (Wb) - Right Forearm Blood Culture - Preliminary No growth in 48 hours. 12/28/24 01:35 Blood Culture (Wb) - Left Forearm Blood Culture - Preliminary No growth in 48 hours. 12/28/24 05:30 Mucosa - Nasopharyngeal Respiratory Panel (PCR) - Final 12/28/24 05:25 Nasal Secretion MRSA (PCR) - Final 12/28/24 01:55 Urine Catheter - Yepez Legionella Antigen - Final 12/28/24 01:55 Urine Catheter - Yepez Streptococcus pneumoniae Antigen (M - Final 12/28/24 01:58 Mucosa - Nasopharyngeal SARS-CoV-2, Influenza & RSV (PCR) - Final ABG Data ABG results: ABG 12/29/24 06:53 Specimen Type ART Sample Site L Radial pH 7.45 Bicarbonate Actual 19.7 L Total CO2 21 Base Excess -4 L O2 Saturation 97 O2 % 30.0 ABG pCO2 28.5 L ABG pO2 87 Neal Test Positive Respiration Rate 18 O2 Delivery Device Adult Vent Vent Mode AC Tidal Volume 400.0 POC PEEP 5 Radiography Diagnostic Testing: Radiology Impression Chest X-Ray 12/31/24 04:20 IMPRESSION: Tube removal. Small bibasilar atelectasis. Reading Location: [place] [address] Physical Exam Const alert, oriented x3 and no apparent distress General Appearance: cooperative HEENT normocephalic and head/scalp atraumatic Eyes PERRL, EOMs intact bilaterally and conjunctivae normal Neck supple General: trachea midline Chest inspection of chest normal Resp normal respiratory effort Auscultation: Negative for rales, rhonchi or wheezes Cardio regular rate and regular rhythm GI normal to inspection, nondistended, normoactive bowel sounds Extremity no clubbing, cyanosis or edema Skin no rashes or lesions noted Neuro CN's II-XII intact bilaterally, moves all extremities and no focal motor deficits Psych cooperative and affect normal Charges/Coding Visit Charges Inpatient E&M: 67568 Subs Hosp L2
[2024-12-31 06:52] LABS: AST(SGOT) 38 U/L (<=31); Alanine Aminotransfer ALT/SGPT 35 U/L (<=34); Albumin, Serum 3.4 g/dL (3.4-4.8); Alkaline Phosphatase 44 U/L (35-104); Anion Gap 9 (5-15); BUN 23 mg/dL (4-19); BUN/Creat Ratio 21.3 RATIO (10-20); Calcium,Total 8.4 mg/dL (7.6-11.0); Carbon Dioxide 22.1 mmol/L (21.0-32.0); Chloride 110 mmol/L (98-108); Estimated Creatinine Clearance 32.88 ml/min (50-250); Globulin 1.8 g/dL (2.2-4.2); Glucose 106 mg/dL (70-99); Magnesium 2.3 mg/dL (1.5-2.2); Potassium 4.4 mmol/L (3.3-5.1)
[2024-12-31] MEDS: Aspirin E.C. 81 MG Tablet PO (10:04)
--- NOTE | 2024-12-31 10:06 | CASEMGMT ---
Addendum entered by Gayle Cao 12/31/24 10:45: Pt choices is 1. [facility]. [facility]. RN CM updated. Gayle Cao DC Planning Asst. Original Note: Discharge Planning A list of?HH providers including quality and resource use data and consistent with the patient's preferred geographic region, medical needs, and insurance network was created in [employer] Guide.? This list was provided to the patient. Gayle Cao, Discharge Planning Asst.
--- NOTE | 2024-12-31 10:20 | ECHOLC_ITS ---
Reason For Study Reason For Study: CONGESTIVE HEART FAILURE Procedure This was a limited 2D transthoracic echocardiogram. Contrast injection was performed. The patient was scanned supine. Exam performed portable in patient room. Left Ventricle Mildly dilated left ventricle. The estimated ejection fraction is 35???40 %. Right Ventricle Normal right ventricle. Atria Normal left atrium. Normal right atrium. Mitral Valve The mitral valve is structurally normal. No prolapse or stenosis seen. Mild (1+) mitral valve insufficiency. Tricuspid Valve Normal tricuspid valve. Mild (1+) tricuspid valve insufficiency. Aortic Valve Trisinus/trileaflet aortic valve. Pulmonic Valve The pulmonic valve is not well visualized. Great Vessels The aortic root is not well visualized. Pericardium/Pleural No pericardial effusion. Medication Diluted definity 2ml given slow IV push to enhance endocardial definition. MMode/2D Measurements & Calculations LVIDd: 4.8 cm IVSd: 0.91 cm LAV(MOD- bp): 34.9 ml LVIDs: 3.4 cm LVPWd: 0.91 cm RVDd: 3.2 cm FS: 27.9 % LAV(MOD- bp) Indexed: 20.7 ml/m2 LAV(MOD- sp2): 40.4 ml LAV(MOD- sp4): 30.2 ml SV(MOD- sp4): 43.1 ml LVAd ap4: 32.8 cm2 LVAd ap2: 36.4 cm2 LVLd ap4: 8.1 cm LVLd ap2: 8.4 cm SI(MOD- sp4): 25.5 ml/m2 EDV(MOD-sp4): 108.1 ml EDV(MOD-sp2): 127.0 ml EDV(sp4-el): 113.1 ml EDV(sp2-el): 133.4 ml LVAs ap4: 23.1 cm2 LVAs ap2: 24.4 cm2 LVLs ap4: 6.6 cm LVLs ap2: 7.2 cm ESV(MOD-sp4): 65.0 ml ESV(MOD-sp2): 66.8 ml ESV(sp4-el): 68.8 ml ESV(sp2-el): 69.9 ml EF(MOD-sp4): 39.8 % EF(MOD-sp2): 47.4 % EF(sp4-el): 39.2 % SV(MOD-sp2): 60.2 ml SV(sp4-el): 44.3 ml LA A4 area: 12.7 cm2 SI(MOD-sp2): 35.7 ml/m2 LA dimension(2D): 3.4 cm TAPSE: 1.4 cm RA A4 area: 11.3 cm2 Time Measurements MV dec time: 0.18 sec Doppler Measurements & Calculations MV E max robert: 65.1 cm/sec Lat Peak E' Robert: 9.8 cm/sec Med Peak E' Robert: 9.2 cm/sec MV A max robert: 61.2 cm/sec E/E' lat: 6.7 E/E' med: 7.1 MV E/A: 1.1 MV dec slope: 355.9 cm/sec2 TR max orbert: 281.4 cm/sec TR max P.7 mmHg ECHO/Echo Limited w/Contrast Interpretation Summary The estimated ejection fraction is 35???40 %. Improvement in LV function in comparison to previous echo with the EF was 15% Contrast echo/Definity used Ordering Physician: Muna Lopez Performed By: Lashell Diego RDCS
[2024-12-31] MEDS: APIXABAN 5 MG TABLET PO ×2 (10:23→21:13)
--- NOTE | 2024-12-31 10:25 | RAD_ITS ---
PROCEDURE: CHEST 1 VIEW 12/31/2024 REASON FOR EXAM: CRACKLES TECHNIQUE: Frontal view of the chest. COMPARISON: AP chest of earlier on 12/31/2024. RAD/Chest 1 View IMPRESSION: Increased right basilar airspace disease is seen, with differential diagnosis i ncluding atelectasis and pneumonitis. No evidence of pulmonary edema. No pleural effusion or pneumothorax is seen. The cardiomediastinal silhouette is stable, without evidence of cardiomegaly. Generalized osteopenia is again present. Degenerative changes of the spine are again noted. No interval osseous change is seen. Reading Location: [place] [address]
[2024-12-31] MEDS: Furosemide 20 MG/2 ML VIAL IV ×2 (10:35→18:07)
--- NOTE | 2024-12-31 11:01 | CASEMGMT ---
Addendum entered by Kimberley Iniguez 12/31/24 11:55: DARYL RAMOS received call back from [facility]. Patient has been accepted with SOC planned for . DARYL RAMOS updated DC Environmental Health Manager. Original Note: DARYL RAMOS updated by DC Environmental Health Manager that patient prefers [facility] for HHC. DARYL RAMOS called and made referral with [facility], awaiting acceptance.
--- NOTE | 2024-12-31 11:56 | CASEMGMT ---
Discharge Planning Per CM, [facility] is able to accept. Pt and her updated. Pt states that she will update her daughter. Gayle Cao DC Planning Asst.
--- NOTE | 2024-12-31 12:28 | PCM.PN.HOSP ---
Reason for Visit Reason for Visit: Shortness of breath Subjective Subjective Patient states she had shortness of breath overnight. Her vital signs are stable however now she has some hypoxia. She has been anticoagulated but we do know her EF is poor so I suspect this is probably heart failure related. Family was at the bedside and gave extensive education with regards to heart failure and how that works and looks for somebody who has acute or chronic heart failure. Overall plan of care with regards to today and reevaluation tomorrow for discharge appropriateness. Right now they are concerned that she may not be able to go home as her functional status is not quite as good today however if she is in acute heart failure that could be the problem. Objective Data Objective Data Vital Signs: Vital Signs Temp Pulse Resp BP Pulse Ox O2 Del Method O2 Flow Rate 97.9 F 67 18 135/82 H 93 Nasal Cannula 2 12/31/24 05:46 12/31/24 11:28 12/31/24 11:28 12/31/24 05:46 12/31/24 06:38 12/31/24 06:38 12/31/24 06:38 FiO2 30 12/29/24 09:00 Oxygen Flow Rate (L/min) 2 Oxygen Delivery Method Nasal Cannula Weight: 64.6 kg Body Mass Index (BMI) 23.7 Intake & Output: Intake and Output for Last 24 Hours 12/29/24 12/30/24 12/31/24 23:59 23:59 23:59 Intake Total 2111.7033 / 2111.7033 484.77 / 484.77 100 / 100 Output Total 1450 / 1450 700 / 700 Balance 661.7033 / 661.7033 -215.23 / -215.23 100 / 100 Lab / Micro Data 12/31/24 05:37 12/31/24 05:37 Labs: Laboratory Results - last 24 hr 12/30/24 23:02: POC Glucose 111 H 12/31/24 05:37: WBC 10.8, RBC 3.05 L, Hgb 9.8 L, Hct 30.0 L, MCV 98.4, MCH 32.1 H, MCHC 32.7, RDW Std Deviation 51.7 H, RDW Coeff of Mark 14.4, Plt Count 172, MPV 9.9, Immature Gran % (Auto) 0.500, Neut % (Auto) 72.0 H, Lymph % (Auto) 17.9 L, Door % (Auto) 8.4, Eos % (Auto) 0.8, Baso % (Auto) 0.4, Absolute Neuts (auto) 7.8 H, Absolute Lymphs (auto) 1.92, Nucleated RBC % 0, Sodium 141, Potassium 4.4, Chloride 110 H, Carbon Dioxide 22.1, Anion Gap 9, BUN 23 H, Creatinine 1.10, Estim Creat Clear Calc 32.88 L, Est GFR (MDRD) Non-Af 50 L, BUN/Creatinine Ratio 21.3 H, Glucose 106 H, Calcium 8.4, Magnesium 2.3 H, Total Bilirubin 0.31, AST 38 H, ALT 35, Alkaline Phosphatase 44, Total Protein 5.2 L, Albumin 3.4, Globulin 1.8 L, Albumin/Globulin Ratio 1.9 12/31/24 05:48: POC Glucose 104 Micro: Microbiology 12/28/24 11:15 Sputum, Induced/Lukens Gram Stain - Final 12/28/24 11:15 Sputum, Induced/Lukens Respiratory Culture - Final Mixed normal respiratory yong. No Streptococcus pneumoniae, beta-hemolytic Streptococcus or Staphylococcus aureus isolated. 12/28/24 01:58 Urine, Catheterized Urine Culture - Final Culture exhibits no growth. 12/28/24 01:35 Blood Culture (Wb) - Right Forearm Blood Culture - Preliminary No growth in 48 hours. 12/28/24 01:35 Blood Culture (Wb) - Left Forearm Blood Culture - Preliminary No growth in 48 hours. 12/28/24 05:30 Mucosa - Nasopharyngeal Respiratory Panel (PCR) - Final 12/28/24 05:25 Nasal Secretion MRSA (PCR) - Final 12/28/24 01:55 Urine Catheter - Yepez Legionella Antigen - Final 12/28/24 01:55 Urine Catheter - Yepez Streptococcus pneumoniae Antigen (M - Final 12/28/24 01:58 Mucosa - Nasopharyngeal SARS-CoV-2, Influenza & RSV (PCR) - Final Radiography Diagnostic Testing: Radiology Impression Chest X-Ray 12/31/24 04:20 IMPRESSION: Tube removal. Small bibasilar atelectasis. [facility] 12/31/24 10:25 IMPRESSION: Increased right basilar airspace disease is seen, with differential diagnosis including atelectasis and pneumonitis. No evidence of pulmonary edema. No pleural effusion or pneumothorax is seen. The cardiomediastinal silhouette is stable, without evidence of cardiomegaly. Generalized osteopenia is again present. Degenerative changes of the spine are again noted. No interval osseous change is seen. Reading Location: [place] [id number] Physical Exam Const alert, oriented x3, no apparent distress, average body habitus and well nourished; Negative for healthy appearing Constitutional Narrative: Elderly, white female, sitting up in bed watching television, has a little bit of dyspnea on conversation with minimal labored bleeding breathing, family at bedside, nursing at bedside, patient does not look toxic HEENT head/scalp atraumatic and moist oral mucous membranes HEENT Narrative: Mallampati 2, no thrush Head and Scalp: normocephalic Eyes conjunctivae normal Eyes Narrative: No scleral icterus Neck supple Neck Narrative: Trachea midline, positive JVD Resp normal respiratory effort, no retractions, no use of accessory muscles and clear to auscultation bilaterally Resp Narrative: Crackles at the distal bases bilaterally with the apices being clear Auscultation: Negative for rales, rhonchi or wheezes Cardio regular rate, S1 normal heart sound, S2 normal heart sound, no murmurs, no rub, no gallops and no clicks Cardio Narrative: Irregularly irregular rhythm with good rate control GI normal to inspection, nondistended, normoactive bowel sounds, soft to palpation and non-tender Extremity no clubbing, cyanosis or edema Extremity Narrative: 2+ pedal and radial pulses Skin skin turgor normal, no jaundice, no petechiae and no mottling Skin Narrative: Cheeks are slightly flushed today Neuro oriented x3, moves all extremities and no focal motor deficits Neuro Narrative: Generalized weakness noted but no focal deficits Sensorium / Orientation: awake and alert Speech: speech normal Psych affect normal Psych Narrative: Affect is slightly flat today given of her slightly worsened clinical status but still interacts appropriately eye contact is good Assessment & Plan Assessment/Plan (1) Septic shock: (2) Acute hypoxic respiratory failure: (3) Metabolic acidosis with respiratory acidosis: (4) Hyperglycemia: (5) Elevated troponin: (6) Right lower lobe pneumonia: (7) 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, <= 40%): (8) Non-ischemic cardiomyopathy: (9) Atrial fibrillation: PLAN: Plan Septic shock secondary to right lower lobe pneumonia - Septic shock resolved - Discontinue midodrine - Urine and blood cultures are unremarkable - Discontinue vancomycin - Continue Zosyn day 3 of 7 - Transition to oral prednisone 40 daily x 5 days Acute hypoxic and hypercapnic respiratory failure secondary to right lower lobe pneumonia and acute exacerbation of COPD - Patient was hypercapnic on admission but also has acidosis from metabolic changes - Extubated on 12/29/2024 and doing well on room air - Prednisone 40 mg daily for 5 days and stop - Continue scheduled and as needed nebulizers - Sputum culture showing aspiration however sample may have been questionable so we will keep him on broad-spectrum antibiotics with pseudomonal coverage - Continue Zosyn for day 3 of 7 Troponin elevation - Secondary to Takotsubo cardiomyopathy and demand ischemia from sepsis - Echocardiogram shows significant wall motion abnormality with newly depressed EF compared to previous - Likely related to 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 with reduced ejection fraction - EF has dropped from 35 to 15% on most recent echocardiogram -Seems to be slightly decompensated today - Continue carvedilol 3.125 mg twice daily - Continue Jardiance 10 mg daily - Continue losartan 25 mg daily which is half her home dose - Discontinue midodrine - Add Aldactone 25 mg daily - Check limited echo with worsening shortness of breath - Check BNP - Lasix 20 mg IV push x 1 dose now -Check chest x-ray - Cardiology is following - Will need outpatient follow-up Difficulty swallowing - Speech therapy is following recommends ongoing outpatient follow-up with Dr. Bonilla for workup as already pursued - Patient complains that she is having some difficulty swallowing Atrial fibrillation -Remains in in rate controlled A-fib -Continue carvedilol -Continue Eliquis Hyperglycemia-acute - A1c was 5.2 - Blood sugars are elevated due to acute illness - Will continue to monitor Severe right subclavian stenosis - Continue medical therapy and outpatient follow-up with cardiology and vascular surgery - Avoid blood pressures on right side CKD stage 2 - Continue to monitor clinically - currently stable Chronic normocytic anemia - Hemoglobin is stable - Will continue to monitor with anticoagulation Essential hypertension/hyperlipidemia -patient hypotensive on presentation - Hold antihypertensives - Continue statin therapy GERD/history of GI bleed -Restart home Protonix - EGD on 06/24/2024 showed nonbleeding gastric ulcer Rheumatoid arthritis - Patient is not on any DMARDs or steroids - Continue outpatient follow-up Mild cognitive impairment - Increases risk for delirium - If occasionally becomes agitated will consider low-dose risperidone and scheduled melatonin 10 mg daily History of VTE -Continue Eliquis Anxiety/depression - Continue home duloxetine DVT prophylaxis -Eliquis CODE STATUS -DNR CCA okay for short-term intubation Charges/Coding Visit Charges Inpatient E&M: 00179 Subs Hosp L3
[2024-12-31 13:11] LABS: Pro- Brain NATRIURETIC PEPTIDE 13074 pg/mL (<=1800)
[2024-12-31] MEDS: 0.9% Saline Lock 10 ML Syringe IV (18:06)
[2025-01-01] VITALS (7 sets, daily range): BP systolic 132–145; BP diastolic 58–79; PULSE 62–64; RESP 16–18; TEMP 36.1–36.4; O2SAT 91–100; BMI 22.4
[2025-01-01] MEDS: Piperacil/Tazobactam 3.375 GM in 0.9% Normal Saline (50mL MB+) 50 ML IV (05:55)
[2025-01-01 07:54] LABS: Magnesium 2.1 mg/dL (1.5-2.2)
[2025-01-01] MEDS: Aspirin E.C. 81 MG Tablet PO (07:55)
[2025-01-01 07:56] LABS: Anion Gap 11 (5-15); BUN 17 mg/dL (4-19); BUN/Creat Ratio 16.1 RATIO (10-20); Calcium,Total 8.9 mg/dL (7.6-11.0); Carbon Dioxide 25.2 mmol/L (21.0-32.0); Chloride 106 mmol/L (98-108); Estimated Creatinine Clearance 34.77 ml/min (50-250); Glucose 99 mg/dL (70-99); Potassium 3.8 mmol/L (3.3-5.1)
[2025-01-01] MEDS: APIXABAN 5 MG TABLET PO (07:56)
--- NOTE | 2025-01-01 11:07 | CASEMGMT ---
DARYL RAMOS updated by hospitalist that patient would like TCU at discharge. DARYL RAMOS reached out to TCU for bed availability, no beds available at this time for TCU. DARYL RAMOS in to discuss discharge planning. DARYL RAMOS updated patient, , and daughter that TCU does not have any beds available at this time. DARYL RAMOS updated that HHC has been setup with [facility] with planned start of care for tomorrow. DARYL RAMOS educated patient and family regarding importance of taking Lasix and weigh self daily, patient and family voiced understanding. Patient does not qualify for home oxygen at this time, patient and family updated. Patient and family had no further questions or concerns. DARYL RAMOS updated hospitalist regarding discharge plan. Patient to discharge this afternoon. DARYL RAMOS called [facility] and updated regarding discharge, SOC still planned for tomorrow. ADRYL RAMOS request CHF teaching for patient. DARYL RAMOS updated discharge plan.
--- NOTE | 2025-01-01 11:19 | PCM.DC.SUM ---
Providers Date of Admission: 12/28/24 Primary Care Physician: Franc Lau MD Consultations 12/28/24 05:17 Consult: Business Development Intern / Pulmonary Medicine Routine Consulting Provider: Intensivists/Pulmonary Med Reason for Consult: Septic shock, Resp Failure, PNA EMERGENT Consult: No Notified: Yes Date Notified: 12/28/24 Time Notified: 04:22 Method of Notification: Text 12/28/24 16:11 Consult: Cardiology Routine Consulting Provider: Tanisha Cox Reason for Consult: Cardiomyopathy EMERGENT Consult: No Notified: Yes Date Notified: 12/28/24 Time Notified: 16:12 Method of Notification: Verbal Reason For Visit: SEPTIC SHOCK, RESP FAILURE, LERNER Diagnosis Discharge Diagnosis (1) Septic shock: Status: Acute Code(s): A41.9 - Sepsis, unspecified organism; R65.21 - Severe sepsis with septic shock (2) Acute hypoxic respiratory failure: Status: Acute Code(s): J96.01 - Acute respiratory failure with hypoxia (3) Metabolic acidosis with respiratory acidosis: Status: Acute Code(s): E87.4 - Mixed disorder of acid-base balance (4) Hyperglycemia: Status: Acute Code(s): R73.9 - Hyperglycemia, unspecified (5) Elevated troponin: Status: Acute Code(s): R79.89 - Other specified abnormal findings of blood chemistry (6) Right lower lobe pneumonia: Status: Acute Code(s): J18.9 - Pneumonia, unspecified organism (7) 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, <= 40%): Status: Chronic Code(s): I50.23 - Acute on chronic systolic (congestive) heart failure (8) Non-ischemic cardiomyopathy: Status: Acute Code(s): I42.8 - Other cardiomyopathies (9) Atrial fibrillation: Status: Acute Code(s): I48.91 - Unspecified atrial fibrillation Plan Septic shock secondary to right lower lobe pneumonia - Septic shock resolved - Discontinue midodrine - Urine and blood cultures are unremarkable - Discontinue vancomycin - Continue Zosyn day 3 of 7 - Transition to oral prednisone 40 daily x 5 days Acute hypoxic and hypercapnic respiratory failure secondary to right lower lobe pneumonia and acute exacerbation of COPD - Patient was hypercapnic on admission but also has acidosis from metabolic changes - Extubated on 12/29/2024 and doing well on room air - Prednisone 40 mg daily for 5 days and stop - Continue scheduled and as needed nebulizers - Sputum culture showing aspiration however sample may have been questionable so we will keep him on broad-spectrum antibiotics with pseudomonal coverage - Continue Zosyn for day 3 of 7 Troponin elevation - Secondary to Takotsubo cardiomyopathy and demand ischemia from sepsis - Echocardiogram shows significant wall motion abnormality with newly depressed EF compared to previous - Likely related to 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 with reduced ejection fraction - EF has dropped from 35 to 15% on most recent echocardiogram -Seems to be slightly decompensated today - Continue carvedilol 3.125 mg twice daily - Continue Jardiance 10 mg daily - Continue losartan 25 mg daily which is half her home dose - Discontinue midodrine - Add Aldactone 25 mg daily - Check limited echo with worsening shortness of breath - Check BNP - Lasix 20 mg IV push x 1 dose now -Check chest x-ray - Cardiology is following - Will need outpatient follow-up Difficulty swallowing - Speech therapy is following recommends ongoing outpatient follow-up with Dr. Bonilla for workup as already pursued - Patient complains that she is having some difficulty swallowing Atrial fibrillation -Remains in in rate controlled A-fib -Continue carvedilol -Continue Eliquis Hyperglycemia-acute - A1c was 5.2 - Blood sugars are elevated due to acute illness - Will continue to monitor Severe right subclavian stenosis - Continue medical therapy and outpatient follow-up with cardiology and vascular surgery - Avoid blood pressures on right side CKD stage 2 - Continue to monitor clinically - currently stable Chronic normocytic anemia - Hemoglobin is stable - Will continue to monitor with anticoagulation Essential hypertension/hyperlipidemia -patient hypotensive on presentation - Hold antihypertensives - Continue statin therapy GERD/history of GI bleed -Restart home Protonix - EGD on 06/24/2024 showed nonbleeding gastric ulcer Rheumatoid arthritis - Patient is not on any DMARDs or steroids - Continue outpatient follow-up Mild cognitive impairment - Increases risk for delirium - If occasionally becomes agitated will consider low-dose risperidone and scheduled melatonin 10 mg daily History of VTE -Continue Eliquis Anxiety/depression - Continue home duloxetine DVT prophylaxis -Eliquis CODE STATUS -DNR CCA okay for short-term intubation Medications at Discharge Home Medications aspirin 81 mg tablet,delayed release (Adult Aspirin Regimen) 81 mg PO QDAY blood thinner 05/06/24 atorvastatin 20 mg tablet 20 mg PO QDAY cholesterol 05/06/24 duloxetine 20 mg capsule,delayed release 20 mg PO DAILY mood 05/06/24 pantoprazole 40 mg tablet,delayed release 40 mg PO QDAY GERD 05/22/24 sennosides 8.6 mg-docusate sodium 50 mg tablet (Stimulant Laxative Plus) 2 tab PO BID #120 tabs 07/01/24 hydrocodone-acetaminophen 5-325mg 5mg-325mg 1 tab PO Q8H PRN pain 09/20/24 ondansetron 4 mg disintegrating tablet 4 mg PO Q8H 11/13/24 cranberry extract 500 mg capsule (Cranberry Concentrate) 500 mg PO DAILY 12/28/24 estradiol 1 mg/gram (0.1 %) transdermal gel packet (Divigel) 1 mg transdermal DAILY 12/28/24 methocarbamol 500 mg tablet 500 mg PO TID PRN PRN muscle spasm 12/28/24 nortriptyline 10 mg capsule 25 mg PO QHS 12/28/24 amoxicillin 875 mg-potassium clavulanate 125 mg tablet 1 tab PO BID #6 tabs 01/01/25 apixaban 5 mg tablet (Eliquis) 5 mg PO BID #60 tabs 01/01/25 carvedilol 3.125 mg tablet 3.125 mg PO BIDCM #60 tabs 01/01/25 empagliflozin 10 mg tablet (Jardiance) 10 mg PO DAILY #30 tabs 01/01/25 furosemide 20 mg tablet (Lasix) 20 mg PO DAILY #30 tabs 01/01/25 losartan 25 mg tablet 25 mg PO DAILY #30 tabs 01/01/25 spironolactone 25 mg tablet 25 mg PO DAILY #30 tabs 01/01/25 Hospital Course Operations None Procedures 2-D Echocardiogram and - (CXR ) Summary of Care Provided Minutes Spent on Discharge: 42 Hospital Course: Pt is an 84 yo who presented to the ED at [facility] on 12/28/2024 with the chief complaint of dyspnea. Symptoms started about 24 hrs prior to presentation and at about 12:30 pm on the day prior to admission with increased work of breathing and accessory muscle usage prior to coming to the ED. Upon arrival she was tachycardiac, tachypneic, mildly somnolent with severe respiratory distress and accessory mm use. She had marked wheezing on exam B and was trialed on BIPAP immediately but failed and required intubation. VS on presentation showed temperature 97.8, heart rate 143, respiratory was 32 and as high as 40, blood pressure was 134/92 and patient was satting 96% on a nonrebreather. CBC showed leukocytosis white count of 12.3 and a significant lymphopenia on presentation however later on day one of her hospitalization her differential switch to a neutrophilia. Coags were normal. ABG showed a pH of 7.03 with a PCO2 of 50.7 bicarb of 13.2 and a PO2 of 93% on the ventilator at 100%. Chemistry panel revealed normal electrolytes except for bicarb of 13.7 and anion gap of 23. Her renal function was close to her baseline. Glucose was 269. Lactic acid was 9.6. LFTs showed slight elevation with AST at 77. Her initial troponin was 35 with a delta of 403 and a 4-hour troponin of 747. TSH was within normal limits. Chest x-ray showed suspected right lower lobe infiltrate and background emphysema with old thoracic compression fractures. Given her presentation and concern for sepsis blood urine and sputum cultures were obtained and she was admitted to the ICU. She was placed on broad-spectrum antibiotics. Respiratory viral panel and COVID/flu/RSV were unremarkable. Strep pneumo and Legionella antigens were negative. Patient has a known EF of 35% and we obtained an echocardiogram which demonstrated large size apical septal, anterior lateral, anterior, inferior, posterior, and lateral wall motion abnormalities with hypokinesis and akinesis of segments with a markedly dilated LV with an EF of 15% and stage I diastolic dysfunction, mitral valve insufficiency of 1+ and severe tricuspid valve insufficiency. Right ventricular systolic pressure was 47 mmHg. Cardiology was consulted due to NSTEMI. It was felt that this was likely related to demand ischemia. They felt that her reduction in EF was likely related to Takotsubo cardiomyopathy from her infection. All of her cultures ended up being negative. Sputum culture was not all that prolific as she was not producing a lot of sputum. She still had a right lower lobe infiltrate on repeat chest x-ray. We were able to extubate on 12/29/2024. She actually extubated to room air. She required pressors for a brief period of time and we will transition her off pressors with midodrine and then eventually start goal-directed therapy for her Takotsubo cardiomyopathy. By the time of discharge we were able to add low-dose carvedilol, losartan, and Aldactone. She was also placed on Jardiance. She did develop atrial fibrillation while she was hospitalized. There is question whether or not she had this previously family thought she had I cannot find any record of this in the notes. The patient states she did not have a previous history of this. She remained in paroxysmal atrial fibrillation throughout her hospital course however she was rate controlled. She was started on Eliquis 5 mg p.o. twice daily after risk and benefits were explained to the patient and her family. She would be very good on 12/30/2024 and the plan was for discharge home on 12/31/2024 as long as she remained stable however she developed hypoxia and shortness of breath with crackles in the bases. BNP was found to be markedly elevated at greater than 13,000 show she was treated with IV Lasix x 2 doses which resulted in excellent diuresis and transition back to room air both at rest and with exertion. Patient was evaluated by physical Occupational Therapy during her stay. They felt that she would be stable for discharge home with ongoing home health care. There was also concern of some dysphagia and speech therapy evaluated the patient. They did recommend that we request her primary care physician or an outpatient swallow study and that she have ongoing outpatient follow-up with Dr. Bonilla. We have set up a follow-up appointment for her to see Dr. Rojas next week to review goal-directed therapy. I have asked that she take Lasix 20 mg a day in the morning and weigh yourself daily and take an extra dose if she gains more than 2 to 3 pounds in 24 hours. And for the short-term we will fluid and sodium restricted diet. Repeat echocardiogram was done prior to discharge when she developed the shortness of breath and acute heart failure. EF had improved already during her hospitalization from 15% up to 35 to 40% which has been her baseline as of last April. She was also sent for another 3-day course to complete a total 7-day course of antibiotics for her right lower lobe pneumonia. She was able to be discharged home with home health care in stable condition on 01/01/2025. She is to follow-up with her primary care physician within a week and subspecialists as noted. Discharge diagnoses: Septic shock Right lower lobe pneumonia Acute hypoxic and hypercapnic respiratory failure secondary to right lower lobe pneumonia and acute exacerbation of COPD Troponin elevation Acute on chronic heart failure with reduced ejection fraction secondary to Takotsubo cardiomyopathy Elevated troponin Dysphagia New onset atrial fibrillation Acute hyperglycemia secondary to critical illness Hypophosphatemia-resolved Severe right subclavian stenosis CKD stage II Chronic normocytic anemia Essential hypertension Hyperlipidemia GERD History of GI bleed secondary to gastric ulcers Rheumatoid arthritis Mild cognitive impairment History of VTE Anxiety Depression Chronic low back pain Impaired mobility at baseline due to chronic back pain Physical Exam Narrative Pt states she is feeling much better Const alert, oriented x3, no apparent distress, average body habitus and well nourished; Negative for healthy appearing Constitutional Narrative: Elderly, white female, sitting up in bed watching television, looks well, no sign of respiratory distress, family at bedside General Appearance: cooperative, comfortable, well kempt and well developed Orientation / Consciousness: awake, oriented to person, oriented to place and oriented to time Exam Limitations: no limitations Nutritional Appearance: thin HEENT normocephalic, head/scalp atraumatic and moist oral mucous membranes HEENT Narrative: mild hearing loss, Mallampati 2, no thush Eyes conjunctivae normal Eyes Narrative: no scleral icterus Neck supple Neck Narrative: Trachea midline Resp normal respiratory effort, no retractions, no use of accessory muscles and clear to auscultation bilaterally Auscultation: Negative for rales, rhonchi or wheezes Cardio regular rate, S1 normal heart sound, S2 normal heart sound, no murmurs, no rub, no gallops and no clicks Cardio Narrative: Irregularly irregular rhythm with good rate control GI normal to inspection, nondistended, normoactive bowel sounds, soft to palpation and non-tender Extremity no clubbing, cyanosis or edema Extremity Narrative: 2+ pedal and radial pulses Skin skin turgor normal, no jaundice, no petechiae and no mottling Neuro oriented x3, moves all extremities and no focal motor deficits Neuro Narrative: Generalized weakness noted but no focal deficits Sensorium / Orientation: awake and alert Speech: speech normal Psych affect normal Psych Narrative: interacts appropriately eye contact is good Weight / BMI Weight Weight: 61.2 kg Body Mass Index (BMI) 22.4 ABG / Lab / Microbiology Data 12/31/24 05:37 01/01/25 05:58 Laboratory: Laboratory Results - last 24 hr 12/31/24 23:59: POC Glucose 126 H 01/01/25 05:49: POC Glucose 95 01/01/25 05:58: Sodium 142, Potassium 3.8, Chloride 106, Carbon Dioxide 25.2, Anion Gap 11, BUN 17, Creatinine 1.04, Estim Creat Clear Calc 34.77 L, Est GFR (MDRD) Non-Af 53 L, BUN/Creatinine Ratio 16.1, Glucose 99, Calcium 8.9, Phosphorus 3.4, Magnesium 2.1 01/01/25 11:43: POC Glucose 134 H Microbiology: Microbiology 12/28/24 11:15 Sputum, Induced/Lukens Gram Stain - Final 12/28/24 11:15 Sputum, Induced/Lukens Respiratory Culture - Final Mixed normal respiratory yong. No Streptococcus pneumoniae, beta-hemolytic Streptococcus or Staphylococcus aureus isolated. 12/28/24 01:58 Urine, Catheterized Urine Culture - Final Culture exhibits no growth. 12/28/24 01:35 Blood Culture (Wb) - Right Forearm Blood Culture - Preliminary No growth in 48 hours. 12/28/24 01:35 Blood Culture (Wb) - Left Forearm Blood Culture - Preliminary No growth in 48 hours. 12/28/24 05:30 Mucosa - Nasopharyngeal Respiratory Panel (PCR) - Final 12/28/24 05:25 Nasal Secretion MRSA (PCR) - Final 12/28/24 01:55 Urine Catheter - Yepez Legionella Antigen - Final 12/28/24 01:55 Urine Catheter - Yepez Streptococcus pneumoniae Antigen (M - Final 12/28/24 01:58 Mucosa - Nasopharyngeal SARS-CoV-2, Influenza & RSV (PCR) - Final Radiography Diagnostic Testing: Radiology Impression Echocardiogram 12/31/24 10:20 Interpretation Summary The estimated ejection fraction is 35???40 %. Improvement in LV function in comparison to previous echo with the EF was 15% Contrast echo/Definity used Ordering Physician: Muna Lopez Performed By: Lashell Diego RDCS D/C Instructions Discharge Diet: Low fat / Low cholesterol ([id number] cc fluid restriction/try to limit sodium to 2-3 g daily) Discharge Activity: Return to Normal Activity DC O2, CPAP, BIPAP Needs Home O2 Discharge instructions: No DC home with Oxygen: No Meaningful Use Info Meaningful Use Meaningful Use Diagnoses (Choose all that apply): None applicable Ischemic Stroke Statin Dosing Therapy Reference: STATIN DOSE THERAPY REFERENCE: * Patients > 75 years receive moderate or high dose statin therapy. * Patients 75 years or YOUNGER should receive HIGH intensity statin dose unless contraindicated. You will be required to document reason for non-treatment if statin daily dose does not meet guidelines. HIGH DOSE STATIN THERAPY DAILY Atorvastatin > than or = to 40 mg Rosuvastatin > than or = to 20 mg Amlodipine + Atorvastatin > than or = to 2.5/40 mg Ezetimibe + Simvastatin 10/80 mg Simvastatin 80mg Discharge Plan Admission Admit Date/Time: 12/28/24 04:19 Primary Reason for Your Visit: Shortness of breath Attending Provider: Muna Lopez Primary Care Provider: Franc Lau Consulting Providers: Valentina Palomares; Tanisha Cox Instructions Additional Instructions / Restrictions: 1. Please discuss with your primary care physician ordering a modified barium swallow if your swallowing issues persist 2. Please follow-up with Dr. Bonilla as previously for ongoing swallowing issues 3. Please take Lasix 20 mg daily and follow-up with cardiology as noted below. I would recommend you weigh yourself on a daily basis in the morning if possible and write down your weights if you gain more than 2 to 3 pounds in a 24-hour. Please take an extra Lasix dose and call the cardiology office. I would recommend you limit your fluid intake to no more than 2 L of fluid by mouth daily Discharge Orders/Prescriptions Prescriptions: New Eliquis 5 mg Tablet 5 mg PO BID Qty: 60 0RF carvedilol 3.125 mg Tablet 3.125 mg PO BIDCM Qty: 60 0RF losartan 25 mg Tablet 25 mg PO DAILY Qty: 30 0RF spironolactone 25 mg Tablet 25 mg PO DAILY Qty: 30 0RF Jardiance 10 mg Tablet 10 mg PO DAILY Qty: 30 0RF furosemide [Lasix] 20 mg tablet 20 mg PO DAILY Qty: 30 0RF amoxicillin-pot clavulanate 875-125 mg tablet 1 tab PO BID Qty: 6 0RF Continued duloxetine 20 mg capsule,delayed release(DR/EC) 20 mg PO DAILY atorvastatin 20 mg tablet 20 mg PO QDAY aspirin [Adult Aspirin Regimen] 81 mg tablet,delayed release (DR/EC) 81 mg PO QDAY pantoprazole 40 mg tablet,delayed release (DR/EC) 40 mg PO QDAY hydrocodone-acetaminophen 5-325 mg tablet 1 tab PO Q8H PRN (Reason: pain) ondansetron 4 mg tablet,disintegrating 4 mg PO Q8H sennosides-docusate sodium [Stimulant Laxative Plus] 8.6-50 mg Tablet 2 tab PO BID Qty: 120 0RF nortriptyline 10 mg capsule 25 mg PO QHS methocarbamol 500 mg tablet 500 mg PO TID PRN PRN (Reason: muscle spasm) estradiol [Divigel] 1 mg/gram (0.1 %) gel in packet 1 mg transdermal DAILY cranberry extract [Cranberry Concentrate] 500 mg capsule 500 mg PO DAILY Rx Instructions: administer with a meal Discontinued metoprolol succinate 50 mg tablet extended release 24 hr 50 mg PO QDAY losartan 50 mg tablet 50 mg PO QDAY Qty: 90 3RF Referrals / Follow Up: Franc Lau MD [Primary Care Provider] - 01/13/25 11:30 am Ashish Rojas MD [Med Staff - Active Staff] - 01/13/25 9:30 am (APPOINTMENT WITH PILI Angel) Disposition Disposition (needs filled in before D/C Order can be placed): Home Health Service Charges/Coding Visit Charges Inpatient E&M: 41373 Disch Hosp >30min
== END 2025-01-01 14:16 | disposition home health service (06) | DRG 871 ==
LOC: ED 04:25 → ICU 04:45 → PCU 12-30 11:24
PROVIDERS: Internal Medicine Critical Care Medicine; Admitting Provider Family Medicine; Emergency Provider Emergency Medicine; PCP Family Medicine; Visit Provider Internal Medicine
DX: A41.9 Sepsis, unspecified organism (principal); J96.01 Acute respiratory failure with hypoxia; J96.02 Acute respiratory failure with hypercapnia; R65.21 Severe sepsis with septic shock; I50.23 Acute on chronic systolic (congestive) heart failure; J18.9 Pneumonia, unspecified organism; I24.89 Other forms of acute ischemic heart disease; J44.0 Chronic obstructive pulmonary disease with (acute) lower respiratory infection; I13.0 Hypertensive heart and chronic kidney disease with heart failure and stage 1 through stage 4 chronic kidney disease, or unspecified chronic kidney disease; J44.1 Chronic obstructive pulmonary disease with (acute) exacerbation; E87.4 Mixed disorder of acid-base balance; M06.9 Rheumatoid arthritis, unspecified; I70.8 Atherosclerosis of other arteries; F32.A Depression, unspecified; D64.9 Anemia, unspecified; I48.0 Paroxysmal atrial fibrillation; N18.2 Chronic kidney disease, stage 2 (mild); I25.10 Atherosclerotic heart disease of native coronary artery without angina pectoris; E78.5 Hyperlipidemia, unspecified; K21.9 Gastro-esophageal reflux disease without esophagitis; I73.9 Peripheral vascular disease, unspecified; D72.810 Lymphocytopenia; E83.39 Other disorders of phosphorus metabolism; F41.9 Anxiety disorder, unspecified; R73.9 Hyperglycemia, unspecified; Z74.09 Other reduced mobility; G89.29 Other chronic pain; R13.10 Dysphagia, unspecified; Z87.891 Personal history of nicotine dependence; Z86.718 Personal history of other venous thrombosis and embolism; Z79.899 Other long term (current) drug therapy; Z66 Do not resuscitate
CPT/HCPCS: 31500; 31720; 36415; 36556; 36600; 51702; 71045; 80048; 80053; 81001; 82550; 82803; 82962; 83036; 83605; 83735; 83880; 84100; 84443; 84478; 84484; 85025; 85610; 85730; 87040; 87070; 87086; 87205; 87449; 87631; 87633; 87641; 92526; 92610; 93005; 93306; 93308; 94002; 94003; 94640; 94660; 94668; 94762; 97162; 97166; 97530; 97535; 97802; 97803; 99252; 99285; Q9957; A4216; C8924; C8929; G0463; J1938

== ENCOUNTER → 2025-01-13 | Outpatient (CLI) | payer MEDICARE, SELFPAY ==
[2025-01-13 15:16] LABS: Hematocrit 38.4 % (37-47); Hemoglobin 12.3 g/dL (12.0-15.0); Immature Granulocytes Count 0.030 X10^3/uL (0.0-0.0); Mean Corp Hgb Conc 32.0 g/dL (32-36); Mean Corpuscular Volume 98.0 fL (81-99); Mean Platelet Vol. 9.4 fl (6.2-12.0); NRBC Flagged by Analyzer 0 % (0-5); Platelet Count 315 K/mm3 (150-450); RBC Distribution Width CV 13.3 % (11.6-14.6); RBC Distribution Width SD 47.7 fl (35.1-43.9); Red Blood Count 3.92 M/mm3 (4.2-5.4); White Blood Count 7.7 K/mm3 (4.4-11.0)
[2025-01-13 15:33] LABS: Anion Gap 13 (5-15); BUN 22 mg/dL (4-19); BUN/Creat Ratio 20.4 RATIO (10-20); Calcium,Total 9.6 mg/dL (7.6-11.0); Carbon Dioxide 24.5 mmol/L (21.0-32.0); Chloride 102 mmol/L (98-108); Glucose 108 mg/dL (70-99); Potassium 4.2 mmol/L (3.3-5.1)
== END | disposition home or self-care (01) ==
LOC: MFPLAB 11:25
PROVIDERS: PCP Family Medicine; Visit Provider Student in an Organized Health Care Education/Training Program
DX: I10 Essential (primary) hypertension (principal); I51.7 Cardiomegaly
CPT/HCPCS: 36415; 80048; 85025

== ENCOUNTER → 2025-02-17 | Outpatient (CLI) | payer MEDICARE, SELFPAY ==
--- NOTE | 2025-02-17 13:16 | ST.MBS ---
Modified Barium Swallow Patient Information Study Date: 02/17/25 Study Time: 13:10 Direct Billable Minutes: 118 Total Minutes procedure & reportin Diagnosis: Dysphagia R13.10 Referring Physician: Yecenia Pace Reason for Referral: Assess swallow function, assess risk for aspiration, and determine recommendations for least restrictive diet textures and compensatory strategies to improve safety of swallow. Medical History: Pt follows w/ [facility] for management of esophageal dysmotility and dysphagia. Pt has reported having issues with swallowing difficulty a few times a week w/ sensation of upper esophageal retention and pain. Daughter reported to [employer] concerns for coughing when consuming food or drink. Pt denies regurgitation. Pt was referred for this MBSS and esophagram to further assess concerns for aspiration. Of note, [facility] admission 12/28/24-01/01/25 due to septic shock secondary to right lower lobe PNA. Pt recommended for MBSS during that hospitalization, but wished for the MBSS to be completed as an outpatient. Medical History (Updated 01/09/25 @ 00:01 by Background Daemon) Left ventricular systolic dysfunction (LVSD) Atrial fibrillation Non-ischemic cardiomyopathy CAD (coronary artery disease) Neuropathic pain Chronic headache Hyperlipidemia Left knee pain Stenosis of right subclavian artery Quadriceps muscle rupture Post-menopausal Alcohol use Walker as ambulation aid Back pain Migraine headache Shortness of breath on exertion History of edema History of pain when walking History of stress test History of echocardiogram Cardiology follow-up encounter Depression Rheumatoid arthritis GI bleed Former smoker Migraines B12 deficiency Depressive disorder Mild cognitive impairment Essential (primary) hypertension Left ventricular hypertrophy Osteoporosis OAB (overactive bladder) Palpitations Fatigue GERD (gastroesophageal reflux disease) Dysphagia COPD (chronic obstructive pulmonary disease) Chronic ischemic colitis Chest pain DVT (deep venous thrombosis) Dyspnea Spondylosis Back pain Osteoarthritis Neoplasm of kidney Vitamin D deficiency Iron deficiency anemia Occipital neuralgia of right side Major depressive disorder Chronic headaches Surgical History (Updated 01/09/25 @ 00:01 by Background Daemon) History of total left knee replacement History of cardiac catheterization History of esophagogastroduodenoscopy (EGD) History of left heart catheterization (~2002) History of bilateral knee replacement History of open reduction and internal fixation (ORIF) procedure History of right hip replacement Current Diet Ordered: Regular textures / Thin liquids Dentition: Natural Teeth Mental Status: WNL Respiratory Status: Oxygenating on Room Air Penetration-Aspiration Scale Penetration-Aspiration Scale: OBJECTIVE ASSESSMENT OF SWALLOW FUNCTION (QUANTITATIVE ? PER TRIAL): PENETRATION / ASPIRATION SCALE (RANGEL): 1 = does not enter airway 2 = enters airway/above vocal folds/ejected 3 = enters airway/above vocal folds/not ejected 4 = enters airway/contacts vocal folds/ejected 5 = enters airway/contacts vocal folds/not ejected 6 = enters airway/below vocal folds/ejected 7 = enters airway/below vocal folds/not ejected despite effort 8 = enters airway/below vocal folds/no effort VIDEOFLOROSCOPIC SCALE SCORE (RANGEL): Grade I = aspiration of material that has penetrated into the laryngeal vestibule, intact cough reflex Grade II = aspiration < 10 % of the bolus, intact cough reflex Grade III = aspiration of < 10 % of the bolus, reduced cough reflex or aspiration of > 10 % of the bolus, intact cough reflex Grade IV = aspiration of > 10 % of the bolus, reduced cough reflex Penetration-Aspiration Scale Score Thin Liquid via teaspoon: Result: 2= enter airway/above vocal folds/ejected Thin Liquid via teaspoon Trial 2: Result: 2= enter airway/above vocal folds/ejected Thin Liquid via small single sip: cup: Result: 8= enters airway/below vocal folds/no effort [place] Thick Liquid via small single sip: cup: Result: 2= enter airway/above vocal folds/ejected Pudding via teaspoon: Result: 1= does not enter airway Comment: Esophageal screen - Retention in the upper and middle esophagus. 1/2 Cookie: Result: 1= does not enter airway Comment: Esophageal screen - Retention throughout the esophagus. Thin Liquid via small single sip: cup Effortful swallow: Result: 5= enters airways/contacts vocal folds/not ejected Comment: Silent post prandial aspiration Esophageal screen - Liquid wash was somewhat effective in clearing cookie retenion from the esophagus; however, pt continued w/ significant retention throughout the esophagus. Thin Liquid via small single sip: cup Chin tuck: Result: 2= enter airway/above vocal folds/ejected Comment: Esophageal screen - Mild barium retention in the middle esophagus after the second liquid wash. Thin Liquid via small single sip: cup Chin tuck Trial 2: Result: 8= enters airway/below vocal folds/no effort Thin Liquid via teaspoon Trial 3: Result: 5= enters airways/contacts vocal folds/not ejected Thin Liquid via teaspoon Trial 4: Result: 8= enters airway/below vocal folds/no effort Thin Liquid via small single sip: cup w/ cued breath hold and swallow: Result: 5= enters airways/contacts vocal folds/not ejected [place] Thick Liquid via small single sip: cup Trial 2: Result: 2= enter airway/above vocal folds/ejected [place] Thick Liquid via small single sip: cup Trial 3: Result: 1= does not enter airway Thin Liquid via small single sip: cup Supraglottic swallow: Result: 8= enters airway/below vocal folds/no effort Oral Phase Labial Seal: No Labial Escape Tongue Control During Bolus Hold: Posterior escape of greater than half of bolus Bolus Preparation/Mastication: Slow prolonged chewing/mashing with complete recollection Bolus Transport/Lingual Motion: Delayed initiation of tongue motion Oral Residue: Residue collection on oral structures Pharyngeal Phase Initiation of Pharyngeal Swallow: Bolus head in pyriforms Soft Palate Elevation: No bolus between soft palate and pharyngeal wall Laryngeal Elevation: Partial superior movement thyroid cart/partial apprx aryt-epig petiole Anterior Hyoid Excursion: Partial anterior movement Epiglottic Movement: Complete inversion Laryngeal Vestibule Closure at Height of Swallow: Incomplete; narrow column of air/contrast in laryngeal vestibule Pharyngeal Stripping Wave: Present - diminished Pharyngoesophageal Segment Opening: Complete distension and complete duration; no obstruction of flow Tongue Base Retraction: Narrow column of contrast between tongue base & post. pharyngeal wall Pharyngeal Residue: Collection of residue within or on pharyngeal structures Esophageal Phase Esophageal Clearance: Esophageal retention Diagnosis/Impression Diagnosis: Moderate oropharyngeal dysphagia R13.12; Esophageal dysphagia R13.14 MBS Impressions: The oral phase is primarily marked by... -Decreased bolus control w/ premature posterior loss of liquids contributing to laryngeal penetration before/during the swallow, increasing the patient's risk for aspiration. -Delayed tongue motion for A-P transport. The pharyngeal phase is primarily marked by... -Delayed swallow onset. -Mildly decreased TB retraction and pharyngeal stripping wave, but overall good pharyngeal motility. -Decreased airway closure due to decreased laryngeal elevation and anterior hyoid excursion w/ silent aspiration of thin liquids via cup, thin liquids via cup w/ chin tuck, thin liquids via cup w/ effortful swallows (post prandial), thin liquids by tsp, and thin liquids via cup w/ supraglottic swallow. The esophageal phase is primarily marked by... -Retention of pudding in the upper and middle esophagus. -Retention of cookie throughout the esophagus, which required 2 liquid washes to mostly clear through the LES. Recommendations Diet: Regular Textures and Mildly Thick Liquids Comment: Medications whole in applesauce w/ mildly thick liquid washes Would consider the patient for implementation of [place] Free Water Protocol during follow-up w/ OP speech therapy Compensatory Strategies: Small Bites, Small Sips, Slow Rate, Alternate bites/solids and sips/liquids (2 sips after each bite) and Sitting upright (During and 60min after po intake) Recommend Repeat Modified Barium Swallow: Yes Comment: After 5-8 weeks of oropharyngeal strengthening to consider pt for diet advancement. Would not advance liquids prior to repeat MBSS due to silent nature of aspiration. Need for Skilled Speech Therapy Services: Yes Comment: -Train the patient in use of strategies to decrease risk for aspiration and reflux aspiration. -Ongoing assessment of diet tolerance of recommended textures. Monitor respiratory status closely. -Train the patient in a thorough oral care routine. Would consider the patient for implementation of [place] Free Water Protocol (FFWP) to encourage hydration and improve quality of life. -Train the patient in oropharyngeal exercise program (Tatum, effortful, Benny, lingual resistance) and EMST to improve cough strength and decrease risk for aspiration. Recommended Referrals: GI Consult (Continue to follow w/ GI for management of esophageal dysphagia. Of note, esophagram has been cancelled due to pt's risk for aspiration. [employer] left a message w/ [facility] RN to inform them of cancelled esophagram.) Education Completed: 1. Described result of evaluation., 2. Pt understands evaluation & agrees with goals and treatment plan., 4. Family/caregivers understand evaluation & agree w/ goals & tx plan. and 7. Pt requires further education on strategies & risks. Comment: [employer] provided pt and daughter handouts w/ information re: recommendations of MBSS and mildly thickened liquids (where to purchase and how to prepare). Status Active ST Patient: Active Contact Information [facility] Speech Therapy:: María Chang M.A. [facility]? Speech-Language Pathologist?? [facility] [address] [place] [address]? [email or web address]?? [phone]
== END | disposition home or self-care (01) ==
LOC: RAD 13:03
PROVIDERS: PCP Family Medicine; Referring Provider Student in an Organized Health Care Education/Training Program; Visit Provider Student in an Organized Health Care Education/Training Program
DX: K22.4 Dyskinesia of esophagus (principal)
CPT/HCPCS: 74230; 92611

== ENCOUNTER → 2025-03-14 | Outpatient (CLI) | payer MEDICARE, SELFPAY ==
[2025-03-14 10:25] LABS: Mucous, Urine 0 SEEN /hpf (<or=2+)
[2025-03-14 13:06] LABS: Color, Urine Yellow (Yellow); Glucose, Dipstick Normal (Normal); Ketone-Dipstick Negative (Negative); Leukocyte Esterase-Dipstick 500 /ul (Negative); Nitrite-Dipstick Negative (Negative); Occult Blood-Urine 25 /ul (Negative); Protein-Dipstick 30 mg/dl (Negative); Specific Gravity, Urine 1.005 (1.002-1.030); Urine Bilirubin Dipstick Negative (Negative)
[2025-03-14 13:32] LABS: Red Blood Cells-Urine 0-5 SEEN /hpf (0-5); Squamous Epithelial Cells - UA 0-5 SEEN /hpf (5-10)
== END | disposition home or self-care (01) ==
LOC: MFPLAB 10:23
PROVIDERS: PCP Family Medicine; Referring Provider Nurse Practitioner Family; Visit Provider Nurse Practitioner Family
DX: R35.0 Frequency of micturition (principal)
CPT/HCPCS: 81001; 87077; 87086; 87088; 87186

== ENCOUNTER → 2025-03-26 | Outpatient (CLI) | payer MEDICARE, SELFPAY ==
[2025-03-26 15:54] LABS: Color, Urine Straw (Yellow); Glucose, Dipstick Normal (Normal); Ketone-Dipstick Negative (Negative); Leukocyte Esterase-Dipstick 25 /ul (Negative); Nitrite-Dipstick Negative (Negative); Occult Blood-Urine 10 /ul (Negative); Protein-Dipstick Negative (Negative); Specific Gravity, Urine 1.010 (1.002-1.030); Urine Bilirubin Dipstick Negative (Negative)
== END | disposition home or self-care (01) ==
LOC: LABSPEC 12:11
PROVIDERS: PCP Family Medicine; Visit Provider Family Medicine
DX: N39.0 Urinary tract infection, site not specified (principal)
CPT/HCPCS: 81002

== ENCOUNTER → 2025-04-03 | Outpatient (CLI) | payer MEDICARE, SELFPAY ==
[2025-04-03 15:37] LABS: Mucous, Urine 0 SEEN /hpf (<or=2+); Squamous Epithelial Cells - UA 0 SEEN /hpf (5-10)
[2025-04-03 17:39] LABS: Color, Urine Yellow (Yellow); Glucose, Dipstick Normal (Normal); Ketone-Dipstick Negative (Negative); Leukocyte Esterase-Dipstick Negative /ul (Negative); Nitrite-Dipstick Positive (Negative); Occult Blood-Urine 10 /ul (Negative); Protein-Dipstick Negative (Negative); Specific Gravity, Urine 1.005 (1.002-1.030); Urine Bilirubin Dipstick Negative (Negative)
[2025-04-03 18:02] LABS: Red Blood Cells-Urine 0-5 SEEN /hpf (0-5)
== END | disposition home or self-care (01) ==
LOC: LABSPEC 15:31
PROVIDERS: PCP Family Medicine; Referring Provider Family Medicine; Visit Provider Family Medicine
DX: N39.0 Urinary tract infection, site not specified (principal)
CPT/HCPCS: 81001

== ENCOUNTER 2025-04-07 11:47 | Inpatient (IN) | payer MEDICARE, SELFPAY ==
[2025-04-07] VITALS (14 sets, daily range): BP systolic 61–122; BP diastolic 45–80; PULSE 45–95; RESP 14–27; TEMP 36.4–37.1; O2SAT 91–100; BMI 24.9; BMI 21.2
--- NOTE | 2025-04-07 12:06 | EKG12_ITS ---
Test Reason : IRREG Blood Pressure : */* mmHG Vent. Rate : 88 BPM Atrial Rate : 88 BPM P-R Int : 192 ms QRS Dur : 102 ms QT Int : 362 ms P-R-T Axes : 49 38 136 degrees QTcB Int : 438 ms Sinus rhythm with Premature atrial complexes Left ventricular hypertrophy with repolarization abnormality ( Sokolow-Jacob ) Abnormal ECG Confirmed by FROYLAN MCKEON, KADI ([id number]), electronic news gathering editor DAVID CERON ([id number]) on 04/09/2025 1:20:19 PM Referred By: FRANSICO Confirmed By: KADI GALEANO MD
[2025-04-07 12:29] LABS: Allen Test Positive; Base Excess 3 mmol/L (-2 to +2); FI02 5.0; PO2 155 mmHG (75-100); SITE L Radial; SO2 99 % (95-99)
[2025-04-07 12:30] LABS: Hematocrit 41.3 % (37-47); Hemoglobin 13.8 g/dL (12.0-15.0); Immature Granulocytes Count 0.060 X10^3/uL (0.0-0.0); Mean Corp Hgb Conc 33.4 g/dL (32-36); Mean Corpuscular Volume 92.6 fL (81-99); Mean Platelet Vol. 8.5 fl (6.2-12.0); NRBC Flagged by Analyzer 0 % (0-5); Platelet Count 343 K/mm3 (150-450); RBC Distribution Width CV 12.9 % (11.6-14.6); RBC Distribution Width SD 44.1 fl (35.1-43.9); Red Blood Count 4.46 M/mm3 (4.2-5.4); White Blood Count 11.9 K/mm3 (4.4-11.0)
[2025-04-07] MEDS: 0.9% Normal Saline (500mL Bag) 500 ML 1000 ML IV (12:31)
[2025-04-07 12:57] LABS: Mucous, Urine 0 SEEN /hpf (<or=2+); Red Blood Cells-Urine 0 SEEN /hpf (0-5); Squamous Epithelial Cells - UA 0 SEEN /hpf (5-10)
[2025-04-07 12:59] LABS: Color, Urine Yellow (Yellow); Glucose, Dipstick Normal (Normal); Ketone-Dipstick Negative (Negative); Leukocyte Esterase-Dipstick 25 /ul (Negative); Nitrite-Dipstick Negative (Negative); Occult Blood-Urine 10 /ul (Negative); Protein-Dipstick 30 mg/dl (Negative); Specific Gravity, Urine 1.015 (1.002-1.030); Urine Bilirubin Dipstick Negative (Negative)
[2025-04-07 13:00] LABS: AST(SGOT) 19 U/L (<=31); Alanine Aminotransfer ALT/SGPT 10 U/L (<=34); Albumin, Serum 4.5 g/dL (3.4-4.8); Alkaline Phosphatase 78 U/L (35-104); Anion Gap 14 (5-15); BUN 21 mg/dL (4-19); BUN/Creat Ratio 20.3 RATIO (10-20); Calcium,Total 10.1 mg/dL (7.6-11.0); Carbon Dioxide 22.9 mmol/L (21.0-32.0); Chloride 99 mmol/L (98-108); Estimated Creatinine Clearance 38.82 ml/min (50-250); Globulin 3.0 g/dL (2.2-4.2); Glucose 138 mg/dL (70-99); Potassium 4.3 mmol/L (3.3-5.1)
--- NOTE | 2025-04-07 13:00 | RAD_ITS ---
PROCEDURE: CHEST 1 VIEW (PORTABLE) 04/07/2025 REASON FOR EXAM: DYSPNEA TECHNIQUE: Frontal view of the chest. COMPARISON: 12/31/2024 FINDINGS: Hardware: EKG leads overlie the chest Heart: The heart size is normal. Lungs: Lungs are expanded, right lung is clear, development of opacification in the left lower lung bryant since the previous study suggesting a likely combination of effusion, atelectasis and perhaps infiltrate. Follow-up recommended to ensure resolution Bones: Degenerative changes are identified within the thoracic spine. RAD/Chest 1 View (Portable) IMPRESSION: Development of opacification in the left costophrenic angle since the previous study suggesting likely combination of effusion atelectasis and perhaps infiltrate. Follow-up recommended to assure resolution Right lung is clear Reading Location: [place] [address]
--- NOTE | 2025-04-07 13:24 | EX.ED.DYSGE1 ---
HPI History of Present Illness Chief Complaint: Hypotension Detail of Chief Complaint: Low blood pressure and not feeling well Informant: patient and spouse/S.O. Onset/Context/Timing Onset: Today and Hours Context: Sudden Onset Timing: Continuous and Waxes and wanes Quality: Lightheadedness and generalized weakness Location: Not applicable Current Severity: Mild Maximum Severity: Moderate Worsened by: Possibly upright position Relieved by: Nothing Associated Symptoms Associated Symptoms: Did not feel well at the doctor's office and reportedly low blood pressure. Narrative Narrative: Patient is an elderly woman. 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 Patient is on day 3 of amoxicillin clavulanic acid for urinary tract infection.. She denies fever or chills she denies headache, visual, ocular auditory symptoms. She does complain of slight shortness of breath. She denies cough. She denies history of VTE. Denies leg pain, swelling discoloration. She denies orthopnea or PND. She denies abdominal pain. She denies back pain. Denies black or maroon-colored stool. Prior similar symptoms: No Recent Illness/Hospitalization: [facility] Medical History Left ventricular systolic dysfunction (LVSD) Atrial fibrillation Non-ischemic cardiomyopathy CAD (coronary artery disease) Neuropathic pain Chronic headache Hyperlipidemia Left knee pain Stenosis of right subclavian artery Quadriceps muscle rupture Post-menopausal Alcohol use Walker as ambulation aid Back pain Migraine headache Shortness of breath on exertion History of edema History of pain when walking History of stress test History of echocardiogram Cardiology follow-up encounter Depression Rheumatoid arthritis GI bleed Former smoker Migraines B12 deficiency Depressive disorder Mild cognitive impairment Essential (primary) hypertension Left ventricular hypertrophy Osteoporosis OAB (overactive bladder) Palpitations Fatigue GERD (gastroesophageal reflux disease) Dysphagia COPD (chronic obstructive pulmonary disease) Chronic ischemic colitis Chest pain DVT (deep venous thrombosis) Dyspnea Spondylosis Back pain Osteoarthritis Neoplasm of kidney Vitamin D deficiency Iron deficiency anemia Occipital neuralgia of right side Major depressive disorder Chronic headaches Home Medications ?Medication ?Instructions ?Recorded ?Last Taken ?Type pantoprazole 40 mg tablet,delayed 40 mg PO QDAY GERD #90 tabs 01/09/25 Unknown Rx release losartan 25 mg tablet 25 mg PO DAILY HTN #90 tabs 02/12/25 04/06/25 Rx spironolactone 25 mg tablet 25 mg PO DAILY HT #90 tabs 02/12/25 Unknown Rx nortriptyline 25 mg capsule 25 mg PO QHS MOOD 02/18/25 04/06/25 History ropinirole 0.25 mg tablet 0.25 - 0.5 mg PO QHS TREMOR 02/18/25 04/06/25 History amoxicillin 875 mg-potassium 1 tab PO BID UTI 04/07/25 04/06/25 History clavulanate 125 mg tablet apixaban 5 mg tablet (Eliquis) 2.5 mg PO BID BLOOD THINNER 04/07/25 04/06/25 History budesonide 0.5 mg/2 mL suspension 0.5 mg inhalation BID SOB 04/07/25 04/06/25 History for nebulization carvedilol 3.125 mg tablet 3.125 mg PO DAILY HTN 04/07/25 04/06/25 History duloxetine 40 mg capsule,delayed 40 mg PO DAILY MOOD 04/07/25 04/06/25 History release estradiol 0.01% (0.1 mg/gram) 1 applic vaginal DAILY HORMONE 04/07/25 04/06/25 History vaginal cream fluticasone fur. 200 mcg-umeclid 1 ea inhalation DAILY COPD 04/07/25 04/06/25 History 62.5 mcg-vilant 25 mcg inhalat.powder (Trelegy Ellipta) furosemide 20 mg tablet 20 mg PO MOWEFR PRN edema 04/07/25 Unknown History oxycodone-acetaminophen 5 mg-325 0.5 - 1 tab PO Q8H PRN pain 04/07/25 Unknown History mg tablet Allergy/AdvReac Type Severity Reaction Status Date / Time empagliflozin (From AdvReac Intermediate Frequent Verified 04/07/25 11:49 Jardiance) UTI's Family History Father CAD (coronary artery disease) CABG x 5 Skin cancer Brother Diabetes CAD (coronary artery disease) age 59 Skin cancer Mother Skin cancer Surgical History History of total left knee replacement History of cardiac catheterization History of esophagogastroduodenoscopy (EGD) History of left heart catheterization (~2002) History of bilateral knee replacement History of open reduction and internal fixation (ORIF) procedure History of right hip replacement Social History household members: spouse Smoking Status: Former smoker alcohol intake: current alcohol intake frequency: a few times a week substance use type: does not use ROS ROS ED Constitutional Constitutional ED: Denies chills, fever(s), subjective or sweats Eyes Eyes: Denies blurry vision or change in vision ENT ENT ED: Denies ear pain, rhinorrhea or sore throat Cardiovascular Cardiovascular: Denies chest pain, orthopnea, palpitations or paroxysmal nocturnal dyspnea Respiratory/Chest Respiratory/Chest: Reports dyspnea; Denies cough, dyspnea on exertion, orthopnea or paroxysmal nocturnal dyspnea Gastrointestinal Gastrointestinal: Denies abdominal pain, constipation, diarrhea, melena or vomiting Genitourinary Genitourinary ED: Reports urinary frequency; Denies dysuria or hematuria Musculoskeletal Musculoskeletal: Denies arthralgias, back pain or myalgias Integumentary Denies rash Neurologic Neurologic: Reports weakness; Denies headache(s) or paresthesias Endocrine Endocrinology: Denies cold intolerance or heat intolerance Hematologic/Lymphatic Hematologic/Lymphatic: Reports systems reviewed and no addt'l complaints, except as documented EXAM Physical Exam Const Vital Signs: 04/07/25 11:48 04/07/25 11:48 04/07/25 11:55 Temperature 97.7 F L Temperature Source Oral Pulse Rate 52 L 45 L Respiratory Rate 22 H Respiratory Effort Short of Breath Respiratory Pattern Normal Blood Pressure 89/63 L Blood Pressure Mean 71 Pulse Ox 100 Oxygen Delivery Method Nasal Cannula Oxygen Flow Rate (L/min) 5 04/07/25 12:06 04/07/25 12:48 04/07/25 13:00 Temperature Temperature Source Pulse Rate 73 83 Respiratory Rate 25 H 27 H Respiratory Effort Respiratory Pattern Blood Pressure 88/68 L 61/45 L Blood Pressure Mean 74 50 Pulse Ox 99 99 100 Oxygen Delivery Method Nasal Cannula Nasal Cannula Nasal Cannula Oxygen Flow Rate (L/min) 3 3 3 04/07/25 14:00 04/07/25 15:00 Temperature Temperature Source Pulse Rate 76 77 Respiratory Rate 16 Respiratory Effort Respiratory Pattern Blood Pressure 100/50 L 116/75 Blood Pressure Mean 66 88 Pulse Ox 98 98 Oxygen Delivery Method Nasal Cannula Nasal Cannula Oxygen Flow Rate (L/min) 3 3 Positive well nourished and well developed Constitutional Narrative: Patient appears thin. She has had multiple low blood pressure readings General Appearance ED: well developed, NAD and pallor HEENT Reports dry mucous membranes HEENT Narrative: Head is atraumatic and normocephalic. Ears normal. Nares patent. Posterior pharynx is normal. Mouth ED: Yes dry mucous membranes Mouth: dry mucous membranes Eyes PERRL and EOMs intact bilaterally General Eye ED: Negative for pale conjunctiva or scleral icterus Neck no lymphadenopathy, supple and no JVD Resp normal respiratory effort and clear to auscultation bilaterally Cardio regular rate, S1 normal heart sound, S2 normal heart sound and no murmurs Rhythm: abnormal rhythm other (Patient has ectopic beats. Monitor reveals premature atrial beats. These are frequent.) GI normal to inspection, nondistended, normoactive bowel sounds, non-tender, non-distended and no masses; Negative for hepatosplenomegaly Back/Spine no CVA tenderness Extremity normal to inspection General Extremety ED: Negative for edema or tenderness General Extremity: Negative for edema Neuro oriented x3 and CN's II-XII intact bilaterally Sensorium / Orientation: alert Motor Exam: strength 5/5 throughout Psych mental status grossly normal Skin no rashes or lesions noted, no wounds and No skin turgor normal General Skin Exam: pallor; Negative for elasticity normal or jaundice MDM MDM MDM Narrative Medical decision making narrative: With recent urinary tract infection and multiple urinary tract infections this year alone will obtain UA, blood work to assess white count differential, competence metabolic panel to assess for endorgan dysfunction as well as lactate. Initially 500 cc of saline was ordered. Once I realized that her blood pressure 61/45 at 1300 a liter of normal saline was ordered. Lab Data Attestation: I reviewed the patient's lab results. Lab results narrative: White count is slightly elevated 11.9 thousand. There is a slight shift with 73% neutrophils. There is no bandemia. Comprehensive metabolic panel is remarkable for estimated GFR 55. Urinalysis is slightly cloudy with a spec gravity 1.015. Macro was positive for protein occult blood and leukoesterase. Nitrites were negative. There are 0-5 WBCs with 1+ bacteria. This may represent partially treated urinary tract infection. Labs: Laboratory Results - last 24 hr 04/07/25 04/07/25 12:10 12:54 WBC 11.9 H RBC 4.46 Hgb 13.8 Hct 41.3 MCV 92.6 MCH 30.9 MCHC 33.4 RDW Std Deviation 44.1 H RDW Coeff of Mark 12.9 Plt Count 343 MPV 8.5 Immature Gran % (Auto) 0.500 Neut % (Auto) 72.7 H Lymph % (Auto) 15.3 L [place] % (Auto) 7.4 Eos % (Auto) 3.5 Baso % (Auto) 0.6 Absolute Neuts (auto) 8.7 H Absolute Lymphs (auto) 1.82 Nucleated RBC % 0 Sodium 136 Potassium 4.3 Chloride 99 Carbon Dioxide 22.9 Anion Gap 14 BUN 21 H Creatinine 1.01 Estim Creat Clear Calc 38.82 L Est GFR (MDRD) Non-Af 55 L BUN/Creatinine Ratio 20.3 H Glucose 138 H Lactic Acid 1.2 Calcium 10.1 Total Bilirubin 0.49 AST 19 ALT 10 Alkaline Phosphatase 78 Total Protein 7.5 Albumin 4.5 Globulin 3.0 Albumin/Globulin Ratio 1.5 Urine Color Yellow Urine Clarity Sl. Cloudy Urine pH 6.5 Ur Specific [place] 1.015 Urine Protein 30 H Urine Glucose (UA) Normal Urine Ketones Negative Urine Occult Blood 10 H Urine Nitrite Negative Urine Bilirubin Negative Urine Urobilinogen 1 H Ur Leukocyte Esterase 25 H Urine RBC 0 SEEN Urine WBC 0-5 SEEN Ur Squamous Epith Cells 0 SEEN Urine Bacteria 1+ Urine Mucus 0 SEEN ABG Data ABG results: ABG 04/07/25 12:25 Specimen Type ART Sample Site L Radial pH 7.42 Bicarbonate Actual 27.0 H Total CO2 28 Base Excess 3 H O2 Saturation 99 O2 % 5.0 ABG pCO2 41.6 ABG pO2 155 H Neal Test Positive O2 Delivery Device Cannula Vent Mode Not entered Radiography Chest X-Ray - ED: 1 View and Read by ED Physician (Cardiac size is normal. Cardiac silhouette is obstructed on the left which may be due to atelectasis versus infiltrate and this is a new finding since December 31, 2024) Diagnostic Testing: Clinical Impression(s) from Imaging Studies Chest X-Ray 04/07/25 13:00 IMPRESSION: Development of opacification in the left costophrenic angle since the previous study suggesting likely combination of effusion atelectasis and perhaps infiltrate. Follow-up recommended to assure resolution Right lung is clear Reading Location: [place] [id number] EKG Initial EKG: Attestation: I personally reviewed and interpreted this EKG as follows: Interpretation: Sinus Rhythm (Rate is 88. There are premature atrial complexes noted. There is evidence of LVH. SC interval is 192 ms. QRS duration 102 ms. QT duration Elpidio 62 ms. [place] is normal.) Management Discussion w/another healthcare provider: Hospitalist (Hospitalist was Dr. Sergio mojica for observation versus admission.) Treatment and Re-Evaluation :: Patient did respond to 20 cc/kg bolus of normal saline. Since patient still has bacteria in her urine suspect she has a incompletely treated UTI and this is the cause of her hypotension. Will contact hospitalist for admission Discharge Plan Dx/Rx/DC Orders Clinical Impression: Acute hypotension, Chronic hypoxemic respiratory failure, Bacteriuria, Anticoagulant long-term use, B12 deficiency, Atelectasis of left lung, Failure of outpatient treatment Disposition Disposition: Acute Care Hospital [facility]
[2025-04-07] MEDS: 0.9% Normal Saline (1000mL) 1,000 ML 1000 ML IV (13:47)
--- NOTE | 2025-04-07 16:38 | HP.PCM.HOS_ITS ---
[facility] - General General Date of Service: 04/07/25 Chief Complaint: Shortness of breath [facility] Narrative SANDIE HO, is a 84 F who presents with hypotension. This is an 84-year-old female with history of COPD/asthma who was seeing her director of health care marketing, Dr. Dover, as she had not been feeling well and this was a routine appointment but noted that her pressure was in the 60s. Patient was sent to the emergency room for evaluation. When she arrived her blood pressure was 89 systolic with heart rate that went down to 45. Patient received 2 L of IV fluid and blood pressure has subsequently improved. Patient just does feel weak. Patient has been feeling short of breath and weak since over the weekend. Patient has recently been changed over to Augmentin for urinary tract infection that she been battling for the past 3 weeks. She has been feeling nauseated while taking the Augmentin. Patient received ceftriaxone in the emergency room. She did have chest x-ray that showed left lower lobe pleural effusion versus atelectasis. And recently she did have a trial spinal stimulator removed but that was uncomplicated. [facility] Medical History Left ventricular systolic dysfunction (LVSD) Atrial fibrillation Non-ischemic cardiomyopathy CAD (coronary artery disease) Neuropathic pain Chronic headache Hyperlipidemia Left knee pain Stenosis of right subclavian artery Quadriceps muscle rupture Post-menopausal Alcohol use Walker as ambulation aid Back pain Migraine headache Shortness of breath on exertion History of edema History of pain when walking History of stress test History of echocardiogram Cardiology follow-up encounter Depression Rheumatoid arthritis GI bleed Former smoker Migraines B12 deficiency Depressive disorder Mild cognitive impairment Essential (primary) hypertension Left ventricular hypertrophy Osteoporosis OAB (overactive bladder) Palpitations Fatigue GERD (gastroesophageal reflux disease) Dysphagia COPD (chronic obstructive pulmonary disease) Chronic ischemic colitis Chest pain DVT (deep venous thrombosis) Dyspnea Spondylosis Back pain Osteoarthritis Neoplasm of kidney Vitamin D deficiency Iron deficiency anemia Occipital neuralgia of right side Major depressive disorder Chronic headaches Home Medications ?Medication ?Instructions ?Recorded ?Last Taken ?Type pantoprazole 40 mg tablet,delayed 40 mg PO QDAY GERD # 90 tabs 01/09/25 Unknown Rx release losartan 25 mg tablet 25 mg PO DAILY HTN #90 tabs 02/12/25 04/06/25 Rx spironolactone 25 mg tablet 25 mg PO DAILY HT #90 tabs 02/12/25 Unknown Rx nortriptyline 25 mg capsule 25 mg PO QHS MOOD 02/18/25 04/06/25 History ropinirole 0.25 mg tablet 0.25 - 0.5 mg PO QHS TREMOR 02/18/25 04/06/25 History amoxicillin 875 mg-potassium 1 tab PO BID UTI 04/07/25 04/06/25 History clavulanate 125 mg tablet apixaban 5 mg tablet (Eliquis) 2.5 mg PO BID BLOOD THI NNER 04/07/25 04/06/25 History budesonide 0.5 mg/2 mL suspension 0.5 mg inhalation BI D SOB 04/07/25 04/06/25 History for nebulization carvedilol 3.125 mg tablet 3.125 mg PO DAILY HTN 04/0704/06/25 History duloxetine 40 mg capsule,delayed 40 mg PO DAILY MOOD 1 04/06/25 History release estradiol 0.01% (0.1 mg/gram) 1 applic vaginal DAILY H ORMONE 04/07/25 04/06/25 History vaginal cream fluticasone fur. 200 mcg-umeclid 1 ea inhalation DAILY COPD 04/07/25 04/06/25 History 62.5 mcg-vilant 25 mcg inhalat.powder (Trelegy Ellipta) furosemide 20 mg tablet 20 mg PO MOWEFR PRN edema Unknown History oxycodone-acetaminophen 5 mg-325 0.5 - 1 tab PO Q8H VT N pain 04/07/25 Unknown History mg tablet Allergy/AdvReac Type Severity Reaction Status Date / Time empagliflozin (From AdvReac Intermediate Frequent Verified 04/07/25 11:49 Jardiance) UTI's Family History Father CAD (coronary artery disease) CABG x 5 Skin cancer Brother Diabetes CAD (coronary artery disease) age 59 Skin cancer Mother Skin cancer Surgical History History of total left knee replacement History of cardiac catheterization History of esophagogastroduodenoscopy (EGD) History of left heart catheterization (~2002) History of bilateral knee replacement History of open reduction and internal fixation (ORIF) procedure History of right hip replacement Social History household members: spouse Smoking Status: Former smoker alcohol intake: current alcohol intake frequency: a few times a week substance use type: does not use ROS ROS Narrative Wears oxygen at night and occasionally during the day she feels that she needs it. Did put her on oxygen but did not feel that it helped her and making her feel well. She does not check her pulse ox to see if her oxygen levels are low, however. Currently has a headache in her posterior occiput. Has been seeing a pain management headache specialist over at [facility]. Does take nortriptyline for that but still continues to have very frequent headaches. She has also received Botox injections to help with has not satisfactorily relieve that. All review of systems were negative except as mentioned above in the history of present illness and the other review of systems. Vital Signs Vital Signs Vital Signs: 04/07/25 11:48 04/07/25 11:48 04/07/25 11:55 Temperature 36.5 C L Temperature Source Oral Pulse Rate 52 L 45 L Respiratory Rate 22 H Respiratory Effort Short of Breath Respiratory Pattern Normal Blood Pressure 89/63 L Blood Pressure Mean 71 Pulse Ox 100 Oxygen Delivery Method Nasal Cannula Oxygen Flow Rate (L/min) 5 04/07/25 12:06 04/07/25 12:48 04/07/25 13:00 Temperature Temperature Source Pulse Rate 73 83 Respiratory Rate 25 H 27 H Respiratory Effort Respiratory Pattern Blood Pressure 88/68 L 61/45 L Blood Pressure Mean 74 50 Pulse Ox 99 99 100 Oxygen Delivery Method Nasal Cannula Nasal Cannula Nasal Cannula Oxygen Flow Rate (L/min) 3 3 3 04/07/25 14:00 04/07/25 15:00 04/07/25 16:00 Temperature Temperature Source Pulse Rate 76 77 95 Respiratory Rate 16 20 H Respiratory Effort Respiratory Pattern Blood Pressure 100/50 L 116/75 92/71 Blood Pressure Mean 66 88 78 Pulse Ox 98 98 99 Oxygen Delivery Method Nasal Cannula Nasal Cannula Room Air Oxygen Flow Rate (L/min) 3 3 04/07/25 16:15 Temperature 36.4 C L Temperature Source Pulse Rate 95 Respiratory Rate 20 H Respiratory Effort Respiratory Pattern Blood Pressure 92/71 Blood Pressure Mean 78 Pulse Ox 99 Oxygen Delivery Method Oxygen Flow Rate (L/min) Weight Weight: 70 kg Body Mass Index (BMI) 24.9 Physical Exam Const alert and no apparent distress HEENT normocephalic, head/scalp atraumatic, hearing grossly normal bilaterally and moist oral mucous membranes Neck no lymphadenopathy Neck Narrative: Left posterior paraspinal cervical muscle tenderness adjacent to the occiput. Resp normal respiratory effort and no retractions Resp Narrative: Diminished in the left base. Diminished throughout both lung bryant. No wheezes. Cardio regular rate, regular rhythm, S1 normal heart sound and S2 normal heart sound GI normal to inspection, nondistended, normoactive bowel sounds, soft to palpation, non-tender, non-distended and hepatosplenomegaly Extremity normal to inspection, full ROM and no clubbing, cyanosis or edema Neuro Sensorium / Orientation: awake and alert Psych affect normal Results Lab / Micro Data 04/07/25 12:10 04/07/25 12:10 Labs: Laboratory Results - last 24 hr 04/07/25 12:10: WBC 11.9 H, RBC 4.46, Hgb 13.8, Hct 41.3, MCV 92.6, MCH 30.9, MCHC 33.4, RDW Std Deviation 44.1 H, RDW Coeff of Mark 12.9, Plt Count 343, MPV 8.5, Immature Gran % (Auto) 0.500, Neut % (Auto) 72.7 H, Lymph % (Auto) 15.3 L, [place] % (Auto) 7.4, Eos % (Auto) 3.5, Baso % (Auto) 0.6, Absolute Neuts (auto) 8.7 H, Absolute Lymphs (auto) 1.82, Nucleated RBC % 0, Sodium 136, Potassium 4.3, Chloride 99, Carbon Dioxide 22.9, Anion Gap 14, BUN 21 H, Creatinine 1.01, Estim Creat Clear Calc 38.82 L, Est GFR (MDRD) Non-Af 55 L, BUN/Creatinine Ratio 20.3 H, Glucose 138 H, Lactic Acid 1.2, Calcium 10.1, Total Bilirubin 0.49, AST 19, ALT 10, Alkaline Phosphatase 78, Total Protein 7.5, Albumin 4.5, Globulin 3.0, Albumin/Globulin Ratio 1.5 04/07/25 12:54: Urine Color Yellow, Urine Clarity Sl. Cloudy, Urine pH 6.5, Ur Specific [place] 1.015, Urine Protein 30 H, Urine Glucose (UA) Normal, Urine Ketones Negative, Urine Occult Blood 10 H, Urine Nitrite Negative, Urine Bilirubin Negative, Urine Urobilinogen 1 H, Ur Leukocyte Esterase 25 H, Urine RBC 0 SEEN, Urine WBC 0-5 SEEN, Ur Squamous Epith Cells 0 SEEN, Urine Bacteria 1+, Urine Mucus 0 SEEN ABG Data ABG results: ABG 04/07/25 12:25 Specimen Type ART Sample Site L Radial pH 7.42 Bicarbonate Actual 27.0 H Total CO2 28 Base Excess 3 H O2 Saturation 99 O2 % 5.0 ABG pCO2 41.6 ABG pO2 155 H Neal Test Positive O2 Delivery Device Cannula Vent Mode Not entered Imaging Radiology Impression Chest X-Ray 04/07/25 13:00 IMPRESSION: Development of opacification in the left costophrenic angle since the previous study suggesting likely combination of effusion atelectasis and perhaps infiltrate. Follow-up recommended to assure resolution Right lung is clear Reading Location: [place] [address] Assessment & Plan Assessment/Plan (1) Hypotension: PLAN: Patient had a significant low blood pressure as outpatient in the 60s. Was in the 80s when she arrived here and did respond with IV fluids. Patient had previously been holding off on her furosemide and spironolactone for a couple weeks prior to this. Though had been taking the losartan and carvedilol. Will hold off on losartan for now but have carvedilol ordered but with hold parameters. Will check cortisol in the morning and that may warrant further evaluation in regards to an ACTH stim test if that is abnormal. I do not know if the patient has adrenal insufficiency or not. She does not take chronic steroids. Check an echocardiogram PLAN: Plan Suspected acute COPD exacerbation * Patient had some general complaints of shortness of breath. Does have this questionable pleural effusion versus atelectasis in her left lung base. * Will continue with bronchodilators and add prednisone. Prednisone will be started on the seventh as I am ordering an a.m. cortisol. Urinary tract infection. * Patient has a rather benign urinalysis here as well as on the second. Patient has been treated with Augmentin. Unclear if she does actually have a urinary tract infection but will order a urine culture. Patient received ceftriaxone in the emergency room and she was having some nausea. Concerned that the nausea may be related to the Augmentin. Will continue with the ceftriaxone for now. Chronic headaches. Patient does see pain management at [facility]. Did mention to she and her daughter that if she is not really having relief with her headaches despite being on nortriptyline and having these injections that she may potentially look into seeing the headache team over at [facility]. Chronic pain: Patient had a recent spinal stimulator removed. That was removed because it was only a trial. Patient is working with Dr. Tao about having a permanent spinal stimulator placed but has to get approved by insurance. History of DVT: On apixaban VTE prophylaxis with continued apixaban CODE STATUS: Addressed with the patient. Patient wished to be full code. Charges/Coding Visit Charges Inpatient E&M: 85332 Init Hosp L2
--- NOTE | 2025-04-07 17:22 | CASEMGMT ---
Care Management Face to Face with patient for initial transition planning/care coordination assessment in the ED.? This proposal lead writer introduced self and role at [facility]. Patient alert and oriented. Patient willing to participate in assessment, daughter in room and assisted with assessment.? Care providers, pharmacy, and demographics verified. Admitting Diagnosis: Shortness of Breath Other diagnosis history: COPD, Afib, CAD, hyperlipidemia PCP: ?Judi Specialists: ?Jazzmine Rojas Zachary Preferred Pharmacy:? [facility] Insurance: [employer] Prescription Benefit: ?yes Living Will/HPOA: ?completed LNOK: Living Arrangements: ?Lives with in a one story home.? Has HH aides that come in 2 x per week for 2 hours, helps with bathing, dressing, light housework, meal assistance, etc.? assists patient other days.? Has palliative care 1 x per month.? Is on O2, [employer] for supplies, on 3-3.5 L Transportation: ?family DME: ?walker, wheelchair, potty chair, grab bars HHC: ?Through [facility] SN[facility]/Rehab: ?none Community Resources: ?Palliative care Behavioral Health History: ?Depression Patient goals: Patient wishes to discharge home. Patient denies any further needs or concerns at this time. Disposition Plan: admission to acute; RN CM/SW to follow for discharge planning needs that may arise.
--- NOTE | 2025-04-07 17:31 | ECHOD_ITS ---
Reason For Study Reason For Study: Hypotension Procedure This was a limited 2D transthoracic echocardiogram. Exam performed portable in patient room. The exam was abbreviated due to the COVID 19 protocol. Left Ventricle Normal LV size. Left ventricular systolic function is normal. The left ventricular ejection fraction is 60 %. Stage 1 diastolic dysfunction. No regional wall motion abnormalities noted. Right Ventricle Normal RV size. Normal systolic function. Atria Normal left atrium. Normal right atrium. Mitral Valve Normal mitral valve. Mild (1+) eccentric mitral valve insufficiency. Tricuspid Valve Normal tricuspid valve. Mild-Moderate (1-2+) tricuspid valve insufficiency. Pulmonary artery systolic pressure is 38 mmHg. Aortic Valve Trisinus/trileaflet aortic valve. Pulmonic Valve Normal pulmonic valve. Great Vessels Normal sized aortic root. The pulmonary artery is normal size. Inferior vena cava collapse with respiration. Pericardium/Pleural No pericardial effusion. MMode/2D Measurements & Calculations LVIDd: 4.3 cm IVSd: 1.0 cm LVAd ap4: 24.6 cm2 LVIDs: 2.3 cm LVPWd: 1.0 cm LVLd ap4: 7.2 cm FS: 46.4 % EDV(MOD-sp4): 69.0 ml EDV(sp4-el): 71.3 ml LVAs ap4: 13.1 cm2 LVLs ap4: 6.1 cm ESV(MOD-sp4): 24.6 ml ESV(sp4-el): 23.6 ml EF(MOD-sp4): 64.3 % EF(sp4-el): 66.8 % SV(MOD-sp4): 44.4 ml SV(sp4-el): 47.7 ml SI(MOD-sp4): 26.9 ml/m2 Time Measurements MV dec time: 0.26 sec Doppler Measurements & Calculations MV E max adan: 55.4 cm/sec MR max adan: 599.6 cm/sec TR max adan: 295.0 cm/sec MV A max adan: 94.7 cm/sec MR max P.8 mmHg TR max P.8 mmHg MV E/A: 0.58 ECHO/Echo Complete Interpretation Summary Normal LV size. Left ventricular systolic function is normal. The left ventricular ejection fraction is 60 %. Mild (1+) eccentric mitral valve insufficiency. Stage 1 diastolic dysfunction. Ordering Physician: Sergio Martines Performed By: Griffin Pal RCS
[2025-04-07] MEDS: APIXABAN 2.5 MG TABLET (WCH) PO (21:24)
[2025-04-07] MEDS: Pramipexole Di-HCl 0.125 MG Tablet PO (21:24)
[2025-04-07] MEDS: 0.9% Saline Lock 10 ML Syringe IV (21:25)
[2025-04-08] VITALS (10 sets, daily range): BP systolic 118–131; BP diastolic 62–96; PULSE 56–95; RESP 15–18; TEMP 36.3–36.7; O2SAT 92–100
[2025-04-08 07:07] LABS: Hematocrit 33.5 % (37-47); Hemoglobin 11.0 g/dL (12.0-15.0); Immature Granulocytes Count 0.020 X10^3/uL (0.0-0.0); Mean Corp Hgb Conc 32.8 g/dL (32-36); Mean Corpuscular Volume 94.9 fL (81-99); Mean Platelet Vol. 8.4 fl (6.2-12.0); NRBC Flagged by Analyzer 0 % (0-5); Platelet Count 257 K/mm3 (150-450); RBC Distribution Width CV 13.0 % (11.6-14.6); RBC Distribution Width SD 45.0 fl (35.1-43.9); Red Blood Count 3.53 M/mm3 (4.2-5.4); White Blood Count 6.7 K/mm3 (4.4-11.0)
--- NOTE | 2025-04-08 07:38 | PCM.PN.HOSP ---
Reason for Visit Chief Complaint: Shortness of breath Subjective Subjective Patient states overall she is feeling much better than when she came in. We discussed the fact that she has COVID. I suspect this may be the etiology of her respiratory distress. Her cause for hypotension is still unclear her cortisol is low however this could be COVID related. I discussed with her that we would put her on Decadron and plan on having her follow-up with endocrinology for further workup as an outpatient after discharge. Decadron should not interfere with any testing that would be performed for ACTH testing. She states she is no longer having any lightheadedness. Patient admits to oxygen use nocturnally at 3 L but only uses as needed during the day. She states typically she does not need it however over the last week or 2 she has needed it frequently. Objective Data Objective Data Vital Signs: Vital Signs Temp Pulse Resp BP Pulse Ox O2 Del Method O2 Flow Rate 98.1 F 63 18 131/81 H 94 Nasal Cannula 2 04/08/25 04:29 04/08/25 07:01 04/08/25 07:01 04/08/25 04:29 04/08/25 07:01 04/08/25 07:01 04/08/25 07:01 Oxygen Flow Rate (L/min) 2 Oxygen Delivery Method Nasal Cannula Weight: 57.7 kg Body Mass Index (BMI) 21.2 Intake & Output: Intake and Output for Last 24 Hours 04/06/25 04/07/25 04/08/25 23:59 23:59 23:59 Intake Total 1550 / 1550 Balance 1550 / 1550 Lab / Micro Data 04/08/25 06:41 04/08/25 06:41 Labs: Laboratory Results - last 24 hr 04/07/25 12:10: WBC 11.9 H, RBC 4.46, Hgb 13.8, Hct 41.3, MCV 92.6, MCH 30.9, MCHC 33.4, RDW Std Deviation 44.1 H, RDW Coeff of Mark 12.9, Plt Count 343, MPV 8.5, Immature Gran % (Auto) 0.500, Neut % (Auto) 72.7 H, Lymph % (Auto) 15.3 L, [place] % (Auto) 7.4, Eos % (Auto) 3.5, Baso % (Auto) 0.6, Absolute Neuts (auto) 8.7 H, Absolute Lymphs (auto) 1.82, Nucleated RBC % 0, Sodium 136, Potassium 4.3, Chloride 99, Carbon Dioxide 22.9, Anion Gap 14, BUN 21 H, Creatinine 1.01, Estim Creat Clear Calc 38.82 L, Est GFR (MDRD) Non-Af 55 L, BUN/Creatinine Ratio 20.3 H, Glucose 138 H, Lactic Acid 1.2, Calcium 10.1, Total Bilirubin 0.49, AST 19, ALT 10, Alkaline Phosphatase 78, Total Protein 7.5, Albumin 4.5, Globulin 3.0, Albumin/Globulin Ratio 1.5 04/07/25 12:54: Urine Color Yellow, Urine Clarity Sl. Cloudy, Urine pH 6.5, Ur Specific [place] 1.015, Urine Protein 30 H, Urine Glucose (UA) Normal, Urine Ketones Negative, Urine Occult Blood 10 H, Urine Nitrite Negative, Urine Bilirubin Negative, Urine Urobilinogen 1 H, Ur Leukocyte Esterase 25 H, Urine RBC 0 SEEN, Urine WBC 0-5 SEEN, Ur Squamous Epith Cells 0 SEEN, Urine Bacteria 1+, Urine Mucus 0 SEEN 04/08/25 06:41: WBC 6.7, RBC 3.53 L, Hgb 11.0 L, Hct 33.5 L, MCV 94.9, MCH 31.2, MCHC 32.8, RDW Std Deviation 45.0 H, RDW Coeff of Mark 13.0, Plt Count 257, MPV 8.4, Immature Gran % (Auto) 0.300, Neut % (Auto) 57.6, Lymph % (Auto) 25.3, [place] % (Auto) 9.8, Eos % (Auto) 6.4 H, Baso % (Auto) 0.6, Absolute Neuts (auto) 3.9, Absolute Lymphs (auto) 1.70, Nucleated RBC % 0 Micro: Microbiology 04/07/25 17:45 Mucosa - Nasopharyngeal Respiratory Panel (PCR) - Final 04/07/25 17:45 Mucosa - Nasopharyngeal SARS-CoV-2, Influenza & RSV (PCR) - Final SARS-CoV-2 (COVID 19) ABG Data ABG results: ABG 04/07/25 12:25 Specimen Type ART Sample Site L Radial pH 7.42 Bicarbonate Actual 27.0 H Total CO2 28 Base Excess 3 H O2 Saturation 99 O2 % 5.0 ABG pCO2 41.6 ABG pO2 155 H Neal Test Positive O2 Delivery Device Cannula Vent Mode Not entered Radiography Diagnostic Testing: Radiology Impression Chest X-Ray 04/07/25 13:00 IMPRESSION: Development of opacification in the left costophrenic angle since the previous study suggesting likely combination of effusion atelectasis and perhaps infiltrate. Follow-up recommended to assure resolution Right lung is clear Reading Location: [place] [id number] Physical Exam Const alert and oriented x3 Constitutional Narrative: Very pleasant, elderly, white female, lying in bed, appears comfortable, nontoxic, no signs of respiratory distress and stable on 2 L nasal cannula. HEENT head/scalp atraumatic and moist oral mucous membranes HEENT Narrative: Mallampati is 2, no thrush Head and Scalp: normocephalic Resp normal respiratory effort, no retractions, no use of accessory muscles and clear to auscultation bilaterally Resp Narrative: Severely diminished diffusely with poor air movement, no signs of respiratory distress, stable on 2 L nasal cannula currently Auscultation: Negative for crackles, rhonchi or wheezes Cardio regular rate, regular rhythm, S1 normal heart sound, S2 normal heart sound, no murmurs, no rub, no gallops and no clicks GI normal to inspection, nondistended, normoactive bowel sounds, soft to palpation and non-tender Extremity no clubbing, cyanosis or edema Extremity Narrative: Decreased lean muscle mass, 2+ pedal and radial pulses Neuro moves all extremities and no focal motor deficits Neuro Narrative: generalized weakness noted but no focal deficits Speech: speech normal Psych affect normal Psych Narrative: Extremely pleasant, eye contact is good and patient interacts appropriately Assessment & Plan Assessment/Plan (1) Hypotension: (2) Hypoxia: (3) COVID-19 virus infection: PLAN: Plan Acute hypoxia with COPD exacerbation secondary to acute COVID-19 infection - Patient is only oxygen dependent nocturnally - Has pretty significant lung disease at baseline - Continue supportive care with aggressive pulmonary toilet - Add Pep therapy and incentive spirometer - Patient is out of the window for remdesivir - Start Decadron 6 daily x 10 days-day 1 of 6 Hypotension - Cortisol level was low however patient will need to be on Decadron for acute COVID-19 infection -Decadron should not interfere with outpatient testing if need to be pursued when she is clinically improved - Should hold off on a CT touch while patient is acutely ill - Will refer to endocrinology as an outpatient - Echo shows an EF of 60 with stage I diastolic dysfunction no regional wall motion abnormalities and mild eccentric mitral valve insufficiency History of UTI - Recently has completed treatment - UA was unimpressive and culture is pending - Continue ceftriaxone now as there was concern that the Augmentin was causing nausea DENNIS - Continue nocturnal oxygen at 3 L nasal cannula Chronic HFrEF-recovered EF - Previous echocardiogram from earlier this year showed an EF of 15% - EF recovered - Continue home medical therapy PAF - Continue home beta-barber - Continue home apixaban Severe right subclavian stenosis - Continue medical therapy and outpatient follow-up with cardiology and vascular surgery - Avoid blood pressures on right side CKD stage 2 - Continue to monitor clinically - currently stable Essential hypertension/hyperlipidemia - Continue home medical therapy with carvedilol Lasix Monday as needed, losartan, Aldactone - Patient is no longer on statin therapy GERD/history of GI bleed - Continue Protonix - EGD on 06/24/2024 showed nonbleeding gastric ulcer Rheumatoid arthritis - Patient is not on any DMARDs or steroids - Continue outpatient follow-up Mild cognitive impairment - Increases risk for delirium - No current issues History of VTE - Apixaban Anxiety/depression - Continue home duloxetine - Nortriptyline DVT prophylaxis - Apixaban CODE STATUS -Full code Charges/Coding Visit Charges Inpatient E&M: 58061 Subs Hosp L2
[2025-04-08 07:40] LABS: Anion Gap 8 (5-15); BUN 16 mg/dL (4-19); BUN/Creat Ratio 19.0 RATIO (10-20); Calcium,Total 9.1 mg/dL (7.6-11.0); Carbon Dioxide 24.0 mmol/L (21.0-32.0); Chloride 103 mmol/L (98-108); Estimated Creatinine Clearance 44.86 ml/min (50-250); Glucose 95 mg/dL (70-99); Potassium 4.7 mmol/L (3.3-5.1)
[2025-04-08 07:44] LABS: CORTISOL AM 2.42 ug/dL (6.02-18.40)
[2025-04-08] MEDS: FLU VACCINE HIGH DOSE 25-26(65YR UP) 180 MCG/0.5 ML SYRINGE IM (09:36)
[2025-04-08] MEDS: APIXABAN 2.5 MG TABLET (WCH) PO ×2 (09:45→21:29)
[2025-04-08] MEDS: Ensure Plus High Protein 120 ML LIQUID PO (16:19)
[2025-04-08] MEDS: Senna/Docusate Sodium 1 Tablet 2 TABLET PO (21:28)
[2025-04-08] MEDS: Pramipexole Di-HCl 0.125 MG Tablet PO (21:28)
[2025-04-08] MEDS: 0.9% Saline Lock 10 ML Syringe IV (21:30)
[2025-04-09] VITALS (8 sets, daily range): BP systolic 115–132; BP diastolic 57–92; PULSE 80–94; RESP 16–20; TEMP 36.4–36.7; O2SAT 94–100
[2025-04-09 09:01] LABS: Hematocrit 31.0 % (37-47); Hemoglobin 10.3 g/dL (12.0-15.0); Immature Granulocytes Count 0.030 X10^3/uL (0.0-0.0); Mean Corp Hgb Conc 33.2 g/dL (32-36); Mean Corpuscular Volume 93.9 fL (81-99); Mean Platelet Vol. 8.6 fl (6.2-12.0); NRBC Flagged by Analyzer 0 % (0-5); Platelet Count 261 K/mm3 (150-450); RBC Distribution Width CV 12.8 % (11.6-14.6); RBC Distribution Width SD 44.0 fl (35.1-43.9); Red Blood Count 3.30 M/mm3 (4.2-5.4); White Blood Count 7.6 K/mm3 (4.4-11.0)
[2025-04-09 09:29] LABS: AST(SGOT) 17 U/L (<=31); Alanine Aminotransfer ALT/SGPT 12 U/L (<=34); Albumin, Serum 3.7 g/dL (3.4-4.8); Alkaline Phosphatase 62 U/L (35-104); Anion Gap 10 (5-15); BUN 18 mg/dL (4-19); BUN/Creat Ratio 25.4 RATIO (10-20); Calcium,Total 9.4 mg/dL (7.6-11.0); Carbon Dioxide 24.4 mmol/L (21.0-32.0); Chloride 103 mmol/L (98-108); Estimated Creatinine Clearance 47.10 ml/min (50-250); Globulin 2.1 g/dL (2.2-4.2); Glucose 114 mg/dL (70-99); Potassium 3.5 mmol/L (3.3-5.1)
[2025-04-09] MEDS: Senna/Docusate Sodium 1 Tablet 2 TABLET PO ×2 (10:14→22:18)
[2025-04-09] MEDS: APIXABAN 2.5 MG TABLET (WCH) PO ×2 (10:15→22:18)
--- NOTE | 2025-04-09 12:57 | PN.HOSP_ITS ---
Reason for Visit Chief Complaint: Shortness of breath Subjective Subjective States she is feeling much better today. Has not noted much change in her breathing. We did discuss that she may need to go home on oxygen and she is fine with that. No further lightheadedness. Patient states she is feeling much better overall. Objective Data Objective Data Vital Signs: Vital Signs Temp Pulse Resp BP Pulse Ox O2 Del Method O2 Flow Rate 97.6 F L 85 16 129/62 H 100 Nasal Cannula 2 04/09/25 09:20 04/09/25 11:03 04/09/25 11:03 04/09/25 09:20 04/09/25 09:20 04/09/25 10:09 04/09/25 10:09 Oxygen Flow Rate (L/min) 2 Oxygen Delivery Method Nasal Cannula Weight: 57.7 kg Body Mass Index (BMI) 21.2 Intake & Output: Intake and Output for Last 24 Hours 04/07/25 04/08/25 04/09/25 23:59 23:59 23:59 Intake Total 1550 / 1550 50 / 50 290 / 290 Balance 1550 / 1550 50 / 50 290 / 290 Lab / Micro Data 04/09/25 08:41 04/09/25 08:41 Labs: Laboratory Results - last 24 hr 04/09/25 08:41: WBC 7.6, RBC 3.30 L, Hgb 10.3 L, Hct 31.0 L, MCV 93.9, MCH 31.2, MCHC 33.2, RDW Std Deviation 44.0 H, RDW Coeff of Mark 12.8, Plt Count 261, MPV 8.6, Immature Gran % (Auto) 0.400, Neut % (Auto) 73.4 H, Lymph % (Auto) 15.3 L, [place] % (Auto) 9.9, Eos % (Auto) 0.7, Baso % (Auto) 0.3, Absolute Neuts (auto) 5.6, Absolute Lymphs (auto) 1.16, Nucleated RBC % 0, Sodium 137, Potassium 3.5, Chloride 103, Carbon Dioxide 24.4, Anion Gap 10, BUN 18, Creatinine 0.72, Estim Creat Clear Calc 47.10 L, Est GFR (MDRD) Non-Af 82, BUN/Creatinine Ratio 25.4 H, Glucose 114 H, Calcium 9.4, Total Bilirubin 0.16, AST 17, ALT 12, Alkaline Phosphatase 62, Total Protein 5.9, Albumin 3.7, Globulin 2.1 L, Albumin/Globulin Ratio 1.8 Micro: Microbiology 04/07/25 12:51 Urine, Random Urine Culture - Preliminary Culture exhibits no growth. 04/07/25 12:57 Urine, Cystoscopy Urine Culture - Final Culture exhibits no growth. 04/07/25 17:45 Mucosa - Nasopharyngeal Respiratory Panel (PCR) - Final 04/07/25 17:45 Mucosa - Nasopharyngeal SARS-CoV-2, Influenza & RSV (PCR) - Final SARS-CoV-2 (COVID 19) Radiography Diagnostic Testing: Radiology Impression Echocardiogram 04/07/25 17:31 Interpretation Summary Normal LV size. Left ventricular systolic function is normal. The left ventricular ejection fraction is 60 %. Mild (1+) eccentric mitral valve insufficiency. Stage 1 diastolic dysfunction. Ordering Physician: Sergio Martines Performed By: Griffin Pal RCS Physical Exam Const alert, oriented x3 and no apparent distress Constitutional Narrative: Very pleasant, elderly, white female, lying in bed, appears comfortable, nontoxic, no signs of respiratory distress and stable on 2 L nasal cannula, nursing and daughter at bedside HEENT normocephalic, head/scalp atraumatic and moist oral mucous membranes HEENT Narrative: Mallampati 2, no thrush, mild to moderate hearing loss Neck Neck Narrative: Left posterior paraspinal cervical muscle tenderness adjacent to the occiput. Resp normal respiratory effort, no retractions, no use of accessory muscles and clear to auscultation bilaterally Resp Narrative: Severely diminished diffusely with poor air movement, no signs of respiratory distress, stable on 2 L nasal cannula currently Auscultation: Negative for crackles, rhonchi or wheezes Cardio regular rate, regular rhythm, S1 normal heart sound, S2 normal heart sound, no murmurs, no rub, no gallops and no clicks GI normal to inspection, nondistended, normoactive bowel sounds, soft to palpation and non-tender Extremity no clubbing, cyanosis or edema Extremity Narrative: Decreased lean muscle mass, 2+ pedal and radial pulses Neuro moves all extremities and no focal motor deficits Neuro Narrative: generalized weakness noted but no focal deficits Speech: speech normal Psych affect normal Psych Narrative: Extremely pleasant, eye contact is good and patient interacts appropriately Assessment & Plan Assessment/Plan (1) Hypotension: (2) Hypoxia: (3) COVID-19 virus infection: PLAN: Plan Acute hypoxia with COPD exacerbation secondary to acute COVID-19 infection - Patient is only oxygen dependent nocturnally - Has pretty significant lung disease at baseline - Continue supportive care with aggressive pulmonary toilet - Add Pep therapy and incentive spirometer - Patient is out of the window for remdesivir - Start Decadron 6 daily x 10 days-day day 2 of 10 Hypotension - Cortisol level was low however patient will need to be on Decadron for acute COVID-19 infection -Decadron should not interfere with outpatient testing if need to be pursued when she is clinically improved - Resolved - Will refer to endocrinology as an outpatient - Echo shows an EF of 60 with stage I diastolic dysfunction no regional wall motion abnormalities and mild eccentric mitral valve insufficiency History of UTI -Urine culture was negative patient with recurrent UTIs as an outpatient however suspect these are actually UTIs - Encourage outpatient follow-up at [facility] where she was seen by urology DENNIS - Continue nocturnal oxygen at 3 L nasal cannula Chronic HFrEF-recovered EF - Previous echocardiogram from earlier this year showed an EF of 15% - EF recovered now 60% - Continue home medical therapy PAF - Continue home beta-barber - Continue home apixaban Severe right subclavian stenosis - Continue medical therapy and outpatient follow-up with cardiology and vascular surgery - Avoid blood pressures on right side CKD stage 2 - Continue to monitor clinically - currently stable Essential hypertension/hyperlipidemia - Continue home medical therapy with carvedilol Lasix Monday as needed, losartan, Aldactone - Patient is no longer on statin therapy GERD/history of GI bleed - Continue Protonix - EGD on 06/24/2024 showed nonbleeding gastric ulcer Rheumatoid arthritis - Patient is not on any DMARDs or steroids - Continue outpatient follow-up Mild cognitive impairment - Increases risk for delirium - No current issues History of VTE - Apixaban Anxiety/depression - Continue home duloxetine - Nortriptyline DVT prophylaxis - Apixaban CODE STATUS -Full code Charges/Coding Visit Charges Inpatient E&M: 90134 Subs Hosp L2
[2025-04-09] MEDS: Pramipexole Di-HCl 0.125 MG Tablet PO (22:25)
[2025-04-10 03:54] VITALS: BP 126/59; PULSE 73; RESP 18; TEMP 36.4; O2SAT 100
[2025-04-10 06:19] LABS: Hematocrit 28.7 % (37-47); Hemoglobin 9.6 g/dL (12.0-15.0); Mean Corp Hgb Conc 33.4 g/dL (32-36); Mean Corpuscular Volume 92.3 fL (81-99); Mean Platelet Vol. 8.9 fl (6.2-12.0); Platelet Count 270 K/mm3 (150-450); RBC Distribution Width CV 13.2 % (11.6-14.6); RBC Distribution Width SD 44.4 fl (35.1-43.9); Red Blood Count 3.11 M/mm3 (4.2-5.4); White Blood Count 7.3 K/mm3 (4.4-11.0)
[2025-04-10 06:23] LABS: Anion Gap 9 (5-15); BUN 21 mg/dL (4-19); BUN/Creat Ratio 30.6 RATIO (10-20); Calcium,Total 9.1 mg/dL (7.6-11.0); Carbon Dioxide 24.1 mmol/L (21.0-32.0); Chloride 104 mmol/L (98-108); Estimated Creatinine Clearance 47.10 ml/min (50-250); Glucose 109 mg/dL (70-99); Potassium 3.9 mmol/L (3.3-5.1)
[2025-04-10 07:02] VITALS: PULSE 74; RESP 16; O2SAT 99
[2025-04-10 09:19] VITALS: O2SAT 96; O2SAT 98
[2025-04-10 09:28] VITALS: BP 126/59; PULSE 73; RESP 18; TEMP 36.4; O2SAT 100
[2025-04-10] MEDS: APIXABAN 2.5 MG TABLET (WCH) PO (09:29)
[2025-04-10] MEDS: Senna/Docusate Sodium 1 Tablet 2 TABLET PO (09:29)
[2025-04-10 10:42] VITALS: PULSE 84; RESP 18
--- NOTE | 2025-04-10 14:55 | CASEMGMT ---
DARYL RAMOS updated by ST that patient would benefit from outpatient ST at discharge. RN CM in to discuss discharge planning with patient. Patient states she already know the exercises for ST and does not want ST at discharge. Patient also declined HHC or additional therapy at discharge. Patient gave RN CM to call daughter to discuss discharge planning. RN RACHEL called daughter Ro to discuss needs at discharge. Per Ro, patient is already setup with outpatient ST therapy at [facility] and they will reschedule appt. Daughter declined further needs or help at discharge. Daughter had no further questions or concerns.
--- NOTE | 2025-04-10 15:16 | PCM.DC.SUM ---
Providers Date of Admission: 04/07/25 Date of Discharge: 04/10/25 Primary Care Physician: Franc Lau MD Reason For Visit: HYPOTENSION Diagnosis Discharge Diagnosis (1) Hypotension: Status: Acute Code(s): I95.9 - Hypotension, unspecified (2) Hypoxia: Status: Acute Code(s): R09.02 - Hypoxemia (3) COVID-19 virus infection: Status: Acute Code(s): U07.1 - COVID-19 Medications at Discharge Home Medications pantoprazole 40 mg tablet,delayed release 40 mg PO QDAY GERD #90 tabs 01/09/25 losartan 25 mg tablet 25 mg PO DAILY HTN #90 tabs 02/12/25 spironolactone 25 mg tablet 25 mg PO DAILY HT #90 tabs 02/12/25 nortriptyline 25 mg capsule 25 mg PO QHS MOOD 02/18/25 ropinirole 0.25 mg tablet 0.25 - 0.5 mg PO QHS TREMOR 02/18/25 apixaban 5 mg tablet (Eliquis) 2.5 mg PO BID BLOOD THINNER 04/07/25 budesonide 0.5 mg/2 mL suspension for nebulization 0.5 mg inhalation BID SOB 04/07/25 carvedilol 3.125 mg tablet 3.125 mg PO DAILY HTN 04/07/25 duloxetine 40 mg capsule,delayed release 40 mg PO DAILY MOOD 04/07/25 estradiol 0.01% (0.1 mg/gram) vaginal cream 1 applic vaginal DAILY HORMONE 04/07/25 fluticasone fur. 200 mcg-umeclid 62.5 mcg-vilant 25 mcg inhalat.powder (Trelegy Ellipta) 1 ea inhalation DAILY COPD 04/07/25 furosemide 20 mg tablet 20 mg PO MOWEFR PRN edema 04/07/25 Held on 04/10/25. Instructions: At least for 1 week and then utilize only as needed following oxycodone-acetaminophen 5 mg-325 mg tablet 0.5 - 1 tab PO Q8H PRN pain 04/07/25 dexamethasone 4 mg tablet 6 mg (1.5 x 4 mg) PO DAILYCM #12 tabs 04/10/25 Hospital Course Operations None Procedures 2-D Echocardiogram, EKG and - (Chest x-ray) Summary of Care Provided Minutes Spent on Discharge: 38 Hospital Course: Mrs. Obregno is an 84-year-old white female with a history of COPD which is ordered for continuous oxygen at 2 [address] Argueta who presented to the emergency department [facility] on 04/07/2025 complaining of shortness of breath. 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 Given this, she was sent to the emergency department for further evaluation. Upon arrival to emergency department she was found to have a systolic blood pressure of 89. She was given 2 L of IV fluid in the emergency department and her blood pressure subsequently improved however she complained of still being fairly weak. She complained of concomitant shortness of breath that was worse than her baseline. She states she been finding urinary tract infections on and off and has followed up with 2 urologists with the last one being at [facility] giving her estradiol. Patient also complained of feeling nauseated when the antibiotics for her UTI. She had been on Augmentin. Vital signs on presentation showed temperature of 36.5 Celsius, heart rate was 52, respiratory was 22, blood pressure was 89/63 with a repeat after IV fluids of 100/50 and pulse ox 100% on 5 L nasal cannula. CBC showed a mild leukocytosis with a white count of 11.9 but was otherwise unremarkable. Chemistry panel was overtly negative. Lactic acid was 1.2. Liver functions were normal. Her UA was not consistent with infection. Cultures were sent. ABG was performed and showed a pH of 7.42 with a pCO2 of 41.6 and a pO2 of 155 on 5 L. Her oxygen was weaned at that time. Chest x-ray showed opacification at the left costophrenic angle suggestive of atelectasis versus infiltrate and the right lung was clear. COVID/flu/RSV was obtained and she was found to be COVID-19 positive. Urine culture was negative. She was admitted to the medical floor and started on Decadron. She was unclear exactly of the timing of the initiation of her symptoms so remdesivir was deferred. Due to her hypotension a cortisol level was obtained prior to Decadron initiation was found to be low p.m. cortisol level. I do not think she is adrenally insufficient however I will have her follow-up with Dr. Lazaro as an outpatient to ensure no further testing needs to be pursued. She is acutely ill and this may affect the adrenal axis. She will complete a course of Decadron for 10 days total and be discharged home with a prescription for Decadron. We are able to reinitiate all of her home medications for her heart failure. We did recheck a limited echocardiogram given her hypotension on presentation and her EF has improved to 60% but overall her echo looks much improved. She was seen by speech therapy as family has concern of aspiration and they did recommend ongoing outpatient speech therapy which she will continue at the time of discharge. Prescription for Decadron was sent to local pharmacy at the time of discharge. She will discontinue the Augmentin given negative urine culture and I have instructed her to follow-up with [facility] with her urologist there. She is to hold her Lasix at this time. Patient was discharged home in stable condition on 04/10/2025. I encouraged her to follow-up with her primary care physician within 1 week and again follow-up with Dr. Lazaro at her first availability for her low cortisol level. Ambulatory pulse ox was done prior to discharge and patient is stable on her baseline 2 L. It does sound like the patient typically does not wear oxygen during the day and only wears it at night at 3 L. We did confirm that the order is for 2 L [id number]. Discharge diagnoses: Acute hypoxia chronic hypoxic respiratory failure secondary to acute exacerbation of COPD secondary to COVID-19 infection Hypotension-resolved Low cortisol level History of UTIs-recurrent DENNIS Chronic HFrEF-recovered EF PAF Severe right Subclavian stenosis CKD stage II Essential hypertension Hyperlipidemia GERD History of GI bleed secondary to PUD Rheumatoid arthritis Mild cognitive impairment History of VTE Anxiety Depression Physical Exam Const alert, oriented x3, no apparent distress, average body habitus and no limitations Constitutional Narrative: Very pleasant, elderly, white female, sitting up in a chair at the bedside, appears comfortable, nontoxic, no signs of respiratory distress and stable on 2 L nasal cannula General Appearance: cooperative, comfortable, well kempt and well developed Exam Limitations: no limitations Nutritional Appearance: thin HEENT normocephalic, head/scalp atraumatic, hearing grossly normal bilaterally and moist oral mucous membranes HEENT Narrative: No thrush, Mallampati 2 Eyes conjunctivae normal Eyes Narrative: No scleral icterus Neck no lymphadenopathy and supple Neck Narrative: Trachea midline Resp normal respiratory effort, no retractions, no use of accessory muscles and clear to auscultation bilaterally Resp Narrative: Severely diminished diffusely with poor air movement, no signs of respiratory distress, stable on 2 L nasal cannula currently Auscultation: Negative for crackles, rhonchi or wheezes Cardio regular rate, regular rhythm, S1 normal heart sound, S2 normal heart sound, no murmurs, no rub, no gallops and no clicks GI normal to inspection, nondistended, normoactive bowel sounds, soft to palpation and non-tender Extremity no clubbing, cyanosis or edema Extremity Narrative: Decreased lean muscle mass, 2+ pedal and radial pulses Skin no jaundice, no petechiae and no mottling Neuro moves all extremities and no focal motor deficits Neuro Narrative: generalized weakness noted but no focal deficits, mild forgetfulness Speech: speech normal Psych affect normal Psych Narrative: Extremely pleasant, eye contact is good and patient interacts appropriately Weight / BMI Weight Weight: 57.7 kg Body Mass Index (BMI) 21.2 ABG / Lab / Microbiology Data 04/10/25 04:48 04/10/25 04:48 Laboratory: Laboratory Results - last 24 hr 04/10/25 04:48: WBC 7.3, RBC 3.11 L, Hgb 9.6 L, Hct 28.7 L, MCV 92.3, MCH 30.9, MCHC 33.4, RDW Std Deviation 44.4 H, RDW Coeff of Mark 13.2, Plt Count 270, MPV 8.9, Sodium 137, Potassium 3.9, Chloride 104, Carbon Dioxide 24.1, Anion Gap 9, BUN 21 H, Creatinine 0.68 L, Estim Creat Clear Calc 47.10 L, Est GFR (MDRD) Non-Af 86, BUN/Creatinine Ratio 30.6 H, Glucose 109 H, Calcium 9.1 Microbiology: Microbiology 04/07/25 12:51 Urine, Random Urine Culture - Final Culture exhibits no growth. 04/07/25 12:57 Urine, Cystoscopy Urine Culture - Final Culture exhibits no growth. 04/07/25 17:45 Mucosa - Nasopharyngeal Respiratory Panel (PCR) - Final 04/07/25 17:45 Mucosa - Nasopharyngeal SARS-CoV-2, Influenza & RSV (PCR) - Final SARS-CoV-2 (COVID 19) D/C Instructions Discharge Activity: Return to Normal Activity DC O2, CPAP, BIPAP Needs Home O2 Discharge instructions: Yes Type of respiratory needs?: Oxygen Oxygen frequency: Continuous Continuous oxygen liters per minute: 2 DC home with Oxygen: Yes Home O2 MD Review: I have reviewed the oxygen testing, and the patient qualifies for home oxygen equipment and portability. The patient is mobile in the home and the community. Meaningful Use Info Meaningful Use Meaningful Use Diagnoses (Choose all that apply): None applicable Discharge Plan Admission Admit Date/Time: 04/07/25 16:16 Primary Reason for Your Visit: Generalized weakness and fatigue Attending Provider: Muna Lopze Primary Care Provider: Franc Lau Consulting Providers: Sergio Martines Discharge Orders/Prescriptions Prescriptions: New dexamethasone 4 mg Tablet 6 mg PO DAILYCM Qty: 12 0RF Continued pantoprazole 40 mg tablet,delayed release (DR/EC) 40 mg PO QDAY Qty: 90 2RF nortriptyline 25 mg capsule 25 mg PO QHS ropinirole 0.25 mg tablet 0.25 - 0.5 mg PO QHS budesonide 0.5 mg/2 mL suspension for nebulization 0.5 mg inhalation BID Eliquis 5 mg tablet 2.5 mg PO BID duloxetine 40 mg capsule,delayed release(DR/EC) 40 mg PO DAILY Trelegy Ellipta 200-62.5-25 mcg blister with device 1 ea INHALATION DAILY estradiol 0.01 % (0.1 mg/gram) cream 1 applic vaginal DAILY oxycodone-acetaminophen 5-325 mg tablet 0.5 - 1 tab PO Q8H PRN (Reason: pain) carvedilol 3.125 mg tablet 3.125 mg PO DAILY losartan 25 mg tablet 25 mg PO DAILY Qty: 90 3RF spironolactone 25 mg tablet 25 mg PO DAILY Qty: 90 3RF Held furosemide 20 mg tablet 20 mg PO MOWEFR PRN (Reason: edema) Hold Instructions: At least for 1 week and then utilize only as needed following Discontinued amoxicillin-pot clavulanate 875-125 mg tablet 1 tab PO BID Referrals / Follow Up: Franc Lau MD [Primary Care Provider, Family Practice] - In 1 Week Alexei Lazaro MD [Med Staff - Courtesy Staff, Endocrinology] Referral Note: Please call office to follow-up in 1 to 2 weeks for low cortisol level and low blood pressure Disposition Disposition (needs filled in before D/C Order can be placed): Home, Self Care Charges/Coding Visit Charges Inpatient E&M: 36371 Disch Hosp >30min
[2025-04-10 15:52] VITALS: BP 126/59; PULSE 73; RESP 18; TEMP 36.4; O2SAT 100
--- NOTE | 2025-04-10 16:33 | PHA.DC.MR.R ---
Pharmacy [place] Med Reconciliation Pharmacy Service has performed discharge medication reconciliation for this patient. The patient's discharge medication list was reviewed for discrepancies and discrepancies were resolved. Medications at Discharge Home Medications pantoprazole 40 mg tablet,delayed release 40 mg PO QDAY GERD #90 tabs 01/09/25 losartan 25 mg tablet 25 mg PO DAILY HTN #90 tabs 02/12/25 spironolactone 25 mg tablet 25 mg PO DAILY blood pressure #90 tabs 02/12/25 nortriptyline 25 mg capsule 25 mg PO QHS MOOD 02/18/25 ropinirole 0.25 mg tablet 0.25 - 0.5 mg PO QHS TREMOR 02/18/25 apixaban 5 mg tablet (Eliquis) 2.5 mg PO BID BLOOD THINNER 04/07/25 budesonide 0.5 mg/2 mL suspension for nebulization 0.5 mg inhalation BID SOB 04/07/25 carvedilol 3.125 mg tablet 3.125 mg PO DAILY HTN 04/07/25 duloxetine 40 mg capsule,delayed release 40 mg PO DAILY MOOD 04/07/25 estradiol 0.01% (0.1 mg/gram) vaginal cream 1 applic vaginal DAILY HORMONE 04/07/25 fluticasone fur. 200 mcg-umeclid 62.5 mcg-vilant 25 mcg inhalat.powder (Trelegy Ellipta) 1 ea inhalation DAILY COPD 04/07/25 furosemide 20 mg tablet 20 mg PO MOWEFR PRN edema 04/07/25 Held on 04/10/25. Instructions: At least for 1 week and then utilize only as needed following oxycodone-acetaminophen 5 mg-325 mg tablet 0.5 - 1 tab PO Q8H PRN pain 04/07/25 dexamethasone 4 mg tablet 6 mg (1.5 x 4 mg) PO DAILYCM #12 tabs 04/10/25
== END 2025-04-10 16:53 | disposition home or self-care (01) | DRG 178 ==
LOC: ED 16:19 → PCU 16:57
PROVIDERS: Emergency Provider Emergency Medicine; PCP Family Medicine; Visit Provider Internal Medicine
DX: U07.1 COVID-19 (principal); I50.32 Chronic diastolic (congestive) heart failure; J44.1 Chronic obstructive pulmonary disease with (acute) exacerbation; I13.0 Hypertensive heart and chronic kidney disease with heart failure and stage 1 through stage 4 chronic kidney disease, or unspecified chronic kidney disease; N39.0 Urinary tract infection, site not specified; M06.9 Rheumatoid arthritis, unspecified; F32.A Depression, unspecified; I48.0 Paroxysmal atrial fibrillation; I25.10 Atherosclerotic heart disease of native coronary artery without angina pectoris; E78.5 Hyperlipidemia, unspecified; K21.9 Gastro-esophageal reflux disease without esophagitis; N18.2 Chronic kidney disease, stage 2 (mild); G47.33 Obstructive sleep apnea (adult) (pediatric); F41.9 Anxiety disorder, unspecified; G89.4 Chronic pain syndrome; Z87.891 Personal history of nicotine dependence; Z79.01 Long term (current) use of anticoagulants; Z86.718 Personal history of other venous thrombosis and embolism; Z79.899 Other long term (current) drug therapy
CPT/HCPCS: 36415; 36600; 71045; 80048; 80053; 81001; 82533; 82803; 83605; 84443; 85025; 85027; 87040; 87086; 87631; 87633; 92526; 92610; 93005; 93306; 94640; 94668; 97162; 97166; 97530; 97802; 99252; 99285; Q9957; A4216; G0463

== ENCOUNTER → 2025-04-28 | Outpatient (CLI) | payer MEDICARE, SELFPAY ==
[2025-04-28 15:56] LABS: Mucous, Urine 0 SEEN /hpf (<or=2+); Red Blood Cells-Urine 0 SEEN /hpf (0-5); Squamous Epithelial Cells - UA 0 SEEN /hpf (5-10)
[2025-04-28 18:32] LABS: Color, Urine Yellow (Yellow); Glucose, Dipstick Normal (Normal); Ketone-Dipstick Negative (Negative); Leukocyte Esterase-Dipstick 100 /ul (Negative); Nitrite-Dipstick Negative (Negative); Occult Blood-Urine 10 /ul (Negative); Protein-Dipstick Negative (Negative); Specific Gravity, Urine 1.010 (1.002-1.030); Urine Bilirubin Dipstick Negative (Negative)
[2025-04-28 19:32] LABS: Transitional Epithelial - Ur 0-5 SEEN /hpf (0-5)
== END | disposition home or self-care (01) ==
LOC: MTLAB 15:32
PROVIDERS: PCP Family Medicine; Referring Provider Family Medicine; Visit Provider Family Medicine
DX: Z09 Encounter for follow-up examination after completed treatment for conditions other than malignant neoplasm (principal)
CPT/HCPCS: 81001

== ENCOUNTER → 2025-04-29 | Outpatient (CLI) | payer MEDICARE, SELFPAY ==
[2025-04-29 17:56] LABS: Hematocrit 37.2 % (37-47); Hemoglobin 11.6 g/dL (12.0-15.0); Immature Granulocytes Count 0.030 X10^3/uL (0.0-0.0); Mean Corp Hgb Conc 31.2 g/dL (32-36); Mean Corpuscular Volume 96.6 fL (81-99); Mean Platelet Vol. 9.0 fl (6.2-12.0); NRBC Flagged by Analyzer 0 % (0-5); Platelet Count 253 K/mm3 (150-450); RBC Distribution Width CV 13.7 % (11.6-14.6); RBC Distribution Width SD 48.6 fl (35.1-43.9); Red Blood Count 3.85 M/mm3 (4.2-5.4); White Blood Count 6.8 K/mm3 (4.4-11.0)
[2025-04-29 18:20] LABS: Iron 76 ug/dL (50-170); Iron Binding Capacity,Total 252 ug/dL (250-450); Iron Binding Capacity,Unsat 176 ug/dL (228-428)
== END | disposition home or self-care (01) ==
LOC: MTLAB 14:50
PROVIDERS: PCP Family Medicine; Referring Provider Family Medicine; Visit Provider Family Medicine
DX: D64.9 Anemia, unspecified (principal)
CPT/HCPCS: 36415; 83540; 83550; 85025

== ENCOUNTER → 2025-06-30 | Outpatient (CLI) | payer MEDICARE, SELFPAY | END | disposition home or self-care (01) | LOC: MRI 13:59 | PROVIDERS: PCP Family Medicine; Referring Provider Family Medicine; Visit Provider Family Medicine | DX: G43.909 Migraine, unspecified, not intractable, without status migrainosus (principal) ==